=== PATIENT | female | born 1955 | race Caucasian/White ===

== ENCOUNTER 2019-05-28 16:38 | Emergency (ER) | payer BC, SELFPAY ==
[2019-05-28 16:54] VITALS: BP 108/70; PULSE 95; RESP 16; TEMP 36.8; O2SAT 97
--- NOTE | 2019-05-28 17:34 | ED.EPISTAXIS ---
HPI - Epistaxis General Chief complaint: Epistaxis <Ashu Keenan PA-C - Last Filed: 05/28/19 18:52> Stated complaint: nosebleed <Ashu Keenan PA-C - Last Filed: 05/28/19 18:52> Time Seen by Provider: 05/28/19 16:59 <DANIEL Perry Last Filed: 05/28/19 18:52> Source: patient <Ashu Keenan PA-C - Last Filed: 05/28/19 18:52> Mode of arrival: ambulatory <Ashu Keenan PA-C - Last Filed: 05/28/19 18:52> Limitations: no limitations <Ashu Keenan PA-C - Last Filed: 05/28/19 18:52> History of Present Illness HPI Narrative: Patient is a 63-year-old female who presents with epistaxis that began prior to arrival was working around some dust and believes that that may have been the preceding problem to the epistaxis from the right nare patient also notes she is currently on warfarin patient notes she had a checked in the last week and was therapeutic patient has heart valve replacement is the etiology for her warfarin patient resting comfortably in the room upon arrival in no distress patient denies bleeding from other sources injury trauma or URI symptoms and is in no distress upon arrival <Ashu Keenan PA-C - Last Filed: 05/28/19 18:52> Related Data Allergies/adverse reactions: Allergies Allergy/AdvReac Type Severity Reaction Status Date / Time No Known Allergies Allergy Mild Unverified 04/11/12 13:41 <Ashu Keenan PA-C - Last Filed: 05/28/19 18:52> Review of Systems Review of Systems: All systems reviewed & are unremarkable except as noted in HPI and below <Ashu Keenan PA-C - Last Filed: 05/28/19 18:52> [facility] Past Medical History Medical History: Medical History (Updated 05/28/19 @ 18:52 by Ashu Keenan PA-C) Warfarin anticoagulation <Ashu Keenan PA-C - Last Filed: 05/28/19 18:52> Surgical History Surgical History: Surgical History H/O aortic valve replacement <Ashu Keenan PA-C - Last Filed: 05/28/19 18:52> Family History Family History: Family History (Updated 12/08/13 @ 07:13 by DOCTOR UNKNOWN) Father Family history of coronary artery disease Other Cerebrovascular accident Diabetes mellitus Family history of arthritis Family history of cardiovascular disease Family history of mental disorder <Ashu Keenan PA-C - Last Filed: 05/28/19 18:52> Social History Social History: Social History Smoking status: Never smoker Alcohol intake: never Gender identity (if verbalized by the patient): Female <Ashu Keenan PA-C - Last Filed: 05/28/19 18:52> Exam Narrative: Exam Narrative: GENERAL: Well-appearing, well-nourished, and in no acute distress. HEAD: Normocephalic, atraumatic. EYES: PERRLA and EOMI. ENT: Nares clear, no rhinorrhea, no bleeding anteriorly noted small amount of blood in the posterior oropharynx. Mucous membranes moist. Oropharynx without tonsillar hypertrophy exudate or other lesions. CHEST: Clear to auscultation. No respiratory distress. No wheezes rales or rhonchi HEART: Regular rate and rhythm. No murmur heard. EXTREMITIES: Normal range of motion. No edema. SKIN: Warm, dry, no rash. NEURO: No focal deficits. Alert and oriented x3. Cranial nerves II through XII grossly intact PSYCH: Normal mood and affect. <Ashu Keenan PA-C - Last Filed: 05/28/19 18:52> Course Course Emergency Course: Patient in the room in no distress at this time with cottonball in place there is been no bleeding patient afebrile nontoxic-appearing patient was offered Rhino Rocket but we will attempt the cottonball and she was given reasons to return <Ashu Keenan PA-C - Last Filed: 05/28/19 18:52> Vital Signs Vital signs: Vital Signs Temperature 98.2 F 05/28/19 16:54 Pulse Rate 95 05/28/19 16:54 Respiratory Rate
[2019-05-28] MEDS: OXYMETAZOLINE HCL 0.05% NAS 15 ML BTL (*BKC) 1 SPRAY (18:05)
[2019-05-28 19:00] LABS: INR 4.6; Prothrombin Time 43.1 Seconds (11.1-14.7)
[2019-05-28 19:16] VITALS: BP 110/77; PULSE 80; RESP 18; O2SAT 99
== END 2019-05-28 19:17 | disposition home or self-care (01) ==
PROVIDERS: Emergency Medicine Emergency Medical Services; Emergency Provider General Practice
DX: R04.0 Epistaxis (principal); Z95.2 Presence of prosthetic heart valve; Z79.01 Long term (current) 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s
CPT/HCPCS: 30901; 36415; 85610; 99283; A9270

== ENCOUNTER → 2019-12-12 13:07 | Outpatient (CLI) | payer BC, SELFPAY ==
--- NOTE | ~2019-12-12 | XR_ITS ---
XR lumbar spine 2-3V DATE: 12/12/2019 13:39 INDICATION: Bilateral sciatica. No known injury. TECHNIQUE: Standing AP, lateral and coned lateral lumbosacral views COMPARISON: None FINDINGS: Incidentally noted is a fractured lower sternal wire suture. Probable prosthetic cardiac va lve is noted on the lateral view. There is diffuse osteopenia. There is moderate rotatory levoscoliosis of the lumbar spine. The included lower thoracic and lumbar pedicles are intact. No fracture or bone destruction of the lumbar spine is noted. There is prominent degenerative disc disease throughout the lumbar and lumbosacral area, particularly pronounced on the right at L2-3. There is prominent degenerative change at the apophyseal joints, particularly in the L4-5 and L5-S1 a yolanda, with associated grade 1 anterolisthesis at L4-5. The sacroiliac joints are intact. IMPRESSION: Osteopenia Rotatory levoscoliosis of lumbar spine Degenerative disc disease throughout the lumbar and lumbosacral spine Grade 1 anterolisthesis at L4-5 due to degenerative change at the apophyseal joints Reviewed, dictated and finalized at location A. IMPRESSION: Osteopenia Rotatory levoscoliosis of lumbar spine Degenerative disc disease throughout the lumbar and lumbosacral spine Grade 1 anterolisthesis at L4-5 due to degenerative change at the apophyseal ciro ints
== END ==
PROVIDERS: PCP Physician Assistant; Visit Provider Physician Assistant
DX: M54.31 Sciatica, right side (principal); M85.88 Other specified disorders of bone density and structure, other site; M51.36 Other intervertebral disc degeneration, lumbar region; M51.37 Other intervertebral disc degeneration, lumbosacral region
CPT/HCPCS: 72100

== ENCOUNTER 2020-01-05 17:01 | Outpatient (CLI) | payer BC, SELFPAY ==
--- NOTE | ~2020-01-05 | MR_ITS ---
EXAMINATION: MR lumbar spine wo [facility] EXAM DATE: 01/05/2020 17:52 INDICATION: Low back pain, radiculopathy down both legs. TECHNIQUE: Multi-sequential, multiplanar MR images of the lumbar spine were obtained without contrast . Sagittal T1, T2, T2 fat saturation images. Axial T2 weighted images. There is no prior study for comparison. FINDINGS: There is 4 mm anterolisthesis L4 on L5 without spondylolysis. There is 2 mm retrolisthesis L3 on L4. There is moderate disc disease at all thoracolumbar levels. The conus medullaris terminates at the L1/2 level and has normal signal intensity and morphology. There is mild lumbar levoscoliosi s. Paraspinal soft tissue is unremarkable. There are no suspicious marrow signal abnormalities. Level by level evaluation: T12-L1: There is a mild diffuse disc bulge. Facet arthropathy: Mild. Neural foraminal stenosis: No stenosis. Central canal stenosis: No stenosis. L1-L2: There is a mild to moderate diffuse disc bulge. Facet arthropathy: Mild to moderate. Neural foraminal stenosis: Minimal bilateral. Central canal stenosis: Mild. L2-L3: There is a moderate diffuse disc bulge. Facet arthropathy: Moderate. Neural foraminal stenosis: Mild to moderate right, mild left. Central canal stenosis: Mild to moderate. L3-L4: There is a moderate diffuse disc bulge. Facet arthropathy: Mild to moderate. Neural foraminal stenosis: Mild to moderate bilateral. Central canal stenosis: Mild to moderate. L4-L5: There is a moderate diffuse disc bulge. Facet arthropathy: Moderate to severe . Ligamentum flavum enlargement. Neural foraminal stenosis: Moderate bilateral. Central canal stenosis: Moderate. L5-S1: There is a mild to moderate diffuse disc bulge. Facet arthropathy: Moderate left, mild to moderate right. Neural foraminal stenosis: Moderate left, mild right. Central canal stenosis: Mild. IMPRESSION: 1. Overall moderate lumbar spondylosis. 2. Grade 1 anterolisthesis L4 on L5. 3. Mild lumbar levoscoliosis. Reviewed, dictated and finalized at location B.
== END 2020-01-05 17:02 | disposition home or self-care (01) ==
PROVIDERS: PCP Physician Assistant; Visit Provider Physician Assistant
DX: M54.31 Sciatica, right side (principal); M47.896 Other spondylosis, lumbar region
CPT/HCPCS: 72148

== ENCOUNTER → 2020-01-23 10:08 | Outpatient (CLI) | payer BC, SELFPAY ==
--- NOTE | ~2020-01-23 | XR_ITS ---
EXAMINATION: XR knee RT min 4V DATE: 01/23/2020 10:47 INDICATION: Right knee pain. TECHNIQUE: 4 views of right knee were obtained. COMPARISON: Right knee radiographs 01/29/2011 FINDINGS: Bone alignment is normal. No fracture. There is severe osteoarthritis of medial compartment and mild osteoarthritis of lateral and patellofemoral compartments. There is a small knee joint effu amalia. IMPRESSION: 1. Severe right knee osteoarthritis. 2. Small right knee joint effusion. Reviewed, dictated and finalized at location A.
--- NOTE | ~2020-01-23 | XR_ITS ---
EXAMINATION: XR knee LT min 4V DATE: 01/23/2020 10:47 INDICATION: Left knee pain. TECHNIQUE: 4 views of left knee were obtained. COMPARISON: None. FINDINGS: Bone alignment is normal. No fracture. There is severe osteoarthritis of medial compartment , moderate osteoarthritis of patellofemoral compartment, and mild osteoarthritis of lateral compartme nt. No knee joint effusion. IMPRESSION: 1. Severe left knee osteoarthritis. Reviewed, dictated and finalized at location A.
== END ==
PROVIDERS: PCP Physician Assistant
DX: M25.562 Pain in left knee (principal); M25.561 Pain in right knee; M17.0 Bilateral primary osteoarthritis of knee
CPT/HCPCS: 73564

== ENCOUNTER 2020-02-24 14:41 | Outpatient (CLI) | payer BC, SELFPAY ==
--- NOTE | ~2020-02-24 | MM_ITS ---
EXAMINATION: MM screening [facility] BI w brittany HISTORY: Screening mammogram TECHNIQUE: Craniocaudal and mediolateral oblique 3-D tomosynthesis images were obtained and synthetic 2-D images were generated. CAD analysis was submitted and interpreted. COMPARISON: 02/21/2019, 01/18/2018, 01/06/2017 BREAST PARENCHYMAL COMPOSITION: There are scattered areas of fibroglandular density. FINDINGS: There is no evidence of suspicious mass, calcification, or architectural distortion to sugg est malignancy in either breast. There has been no suspicious interval change. IMPRESSION: 1. No mammographic evidence of malignancy. 2. Recommend routine screening mammography in one year. BI-RADS Category 1: Negative Reviewed, dictated and finalized at location A. 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
== END 2020-02-24 14:42 | disposition home or self-care (01) ==
LOC: ANHIMG 14:42
PROVIDERS: PCP Physician Assistant; Visit Provider Physician Assistant
DX: Z12.31 Encounter for screening mammogram for malignant neoplasm of breast (principal)
CPT/HCPCS: 77063; 77067

== ENCOUNTER 2021-05-28 14:12 | Outpatient (CLI) | payer BC, SELFPAY ==
--- NOTE | ~2021-05-28 | MM_ITS ---
EXAMINATION: MM screening [facility] BI w brittany HISTORY: Screening TECHNIQUE: Craniocaudal and mediolateral oblique 3-D tomosynthesis images were obtained and synthetic 2-D images were generated. CAD analysis was submitted and interpreted. COMPARISON: Comparison to multiple prior studies sequentially, with oldest reviewed study dated 11/28. BREAST PARENCHYMAL COMPOSITION: Breast composed of scattered areas of fibroglandular density. FINDINGS: There is no evidence of suspicious mass, calcification, or architectural distortion to sugg est malignancy in either breast. There has been no suspicious interval change. IMPRESSION: 1. No mammographic evidence of malignancy. 2. Recommend routine screening mammography in one year. BI-RADS Category 1: Negative Reviewed, dictated and finalized at location A. 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
== END 2021-05-28 14:13 | disposition home or self-care (01) ==
PROVIDERS: PCP Internal Medicine; Visit Provider Obstetrics & Gynecology
DX: Z12.31 Encounter for screening mammogram for malignant neoplasm of breast (principal)
CPT/HCPCS: 77063; 77067

== ENCOUNTER → 2021-08-13 11:30 | Outpatient (CLI) | payer BC, SELFPAY ==
--- NOTE | ~2021-08-13 | US_ITS ---
EXAMINATION: US abdomen complete DATE: 08/13/2021 11:51 INDICATION: Elevated liver function tests TECHNIQUE: Multiple grayscale and Doppler ultrasound images of the abdomen were obtained. COMPARISON: 09/24/2011 FINDINGS: The head and body of the pancreas are normal. The pancreatic tail is obscured by bowel gas. The liver is normal with normal echogenicity and echotexture. No surface nodularity. Normal hepatope ashutosh flow in the main portal vein. The gallbladder is normal with no abnormal wall thickening, pericho lecystic fluid or stones. The normal common bile duct measures 3 mm. There was no sonographic Mayo sign. The visualized portions of the aorta and inferior vena cava are normal. The right kidney measures 9.7 x 4.3 x 4.8 cm. The left kidney measures 9.5 x 4.9 x 5.9 cm. The kidney s demonstrate normal parenchymal echogenicity. There is no hydronephrosis. The spleen is normal in ap pearance and measures 9.0 cm. IMPRESSION: 1. No sonographic correlate for the patient's symptoms. Reviewed, dictated and finalized at location A.
== END ==
PROVIDERS: PCP Internal Medicine; Visit Provider Internal Medicine
DX: R79.89 Other specified abnormal findings of blood chemistry (principal)
CPT/HCPCS: 76700

== ENCOUNTER 2021-08-15 13:42 | Outpatient (CLI) | payer BC, SELFPAY ==
--- NOTE | ~2021-08-15 | DEXA_ITS ---
Bone Density Report Name: JOVITA NIXON Age: 65 Sex: Female Ethnicity: White Date of : 1955 Indication: osteopenia; height loss; postmenopausal Referring Provider: NICHOLE, RU Wallace Study: Bone densitometry was performed. Exam Date: August 15, 2021 Accession number: [id number] Bone Density: Region BMD T-score Z-score Classification AP Spine(L1, L4) 0.926 -1.0 0.7 Normal Femoral Neck (Left) 0.649 -1.8 -0.3 Osteopenia Total Hip (Left) 0.741 -1.6 -0.5 Osteopenia Femoral Neck (Right) 0.754 -0.9 0.6 Normal Total Hip (Right) 0.816 -1.0 0.1 Normal Total Hip Mean 0.779 -1.3 -0.2 Osteopenia World Health Organization criteria for BMD impression classify patients as: Normal (T-score at or above -1.0), Osteopenia (T-score between -1.0 and -2.5), or Osteoporosis (T-score at or below -2.5). 10-year Fracture Risk(1): Major Osteoporotic Fracture 9.5% Hip Fracture 1.1% Reported Risk Factors: [place] (), Neck BMD=0.649, BMI=26.3 (1) FRAX(R) Version 3.08. Fracture probability calculated for an untreated patient. Fracture probability may be lower if the patient has received treatment. Previous Exams: Region Exam Age BMD T-score BMD Change BMD Change Date g/cm2 vs Baseline vs Previous AP Spine (L1,L4) 08/15/2021 65 0.926 -1.0 -0.019 (-2.0%) -0.019 (-2.0%) 02/21/2019 63 0.945 -0.8 Total Hip(Left) 08/15/2021 65 0.741 -1.6 -0.041 (-5.2%) -0.041 (-5.2%) 02/21/2019 63 0.782 -1.3 Total Hip(Right) 08/15/2021 65 0.816 -1.0 0.011 (1.4%) 0.011 (1.4%) 02/21/2019 63 0.805 -1.1 *Denotes significance at 95% confidence level, LSC for AP Spine = 0.022 g/cm2, LSC for Total Hip = 0.027 g/cm2 Clinical Information Provided by Patient: Has used the following medications: Vitamin D, Calcium Patient maximum height was 63 Menopause Age: 50 Drinks caffeinated beverages Onset of menses at age 16 Number of children 3 Impression: The patient has low bone mass, based on the Left Femoral Neck T-score. The patient has an estimated ten-year risk of hip fracture of 1.1% and an estimated ten-year risk of major fracture of 9.5%, based on the WHO FRAX algorithm. The BMD for the Total Hip(Left) decreased, changing by -5.2% since the last DXA exam. Discussion: BONE DENSITY IS LOW AT ONE OR MORE SKELETAL SITES. This patient's lowest T-score is low at one or more skeletal sites. It meets the World Health Organization's (WHO) cr
== END 2021-08-15 13:43 | disposition home or self-care (01) ==
PROVIDERS: PCP Internal Medicine; Visit Provider Internal Medicine
DX: M85.852 Other specified disorders of bone density and structure, left thigh (principal)
CPT/HCPCS: 77080

== ENCOUNTER → 2021-10-18 16:21 | Outpatient (CLI) | payer BC, SELFPAY ==
--- NOTE | ~2021-10-18 | XR_ITS ---
XR cervical spine 4-5V DATE: 10/18/2021 17:09 INDICATION: Neck pain TECHNIQUE: AP, open-mouth, odontoid, lateral and swimmer views COMPARISON: None FINDINGS: Incidentally noted are sternal wire sutures. There is osteopenia. There is reversal of lower cervical curvature. C1 and C2 are normally aligned and the odontoid process appears intact. No fracture or dislocation or locked facet or prevertebral soft tissue swelling. There is minimal anterolisthesis at C2-3. There is 1.9 mm anterolisthesis at C3-4. These latter 2 int erspaces are well preserved. There is mild degenerative disc disease and minimal anterolisthesis at C4-5. There is severe degenerative disc disease and mild retrolisthesis at C5-6 and C6-7. There is degenerative change at the apophyseal joints throughout the cervical spine. There is promine nt uncovertebral joint spurring on the left at C4-5 and bilaterally at C5-6 and C6-7. IMPRESSION: Reversal of lower cervical curvature Multilevel degenerative disc disease, most severe at C5-6 and C6-7 Anterolisthesis is noted at C2-3, C3-4, C4-5 No fracture or dislocation or locked facet or prevertebral soft tissue swelling Reviewed, dictated and finalized at Location A. Reviewed, dictated and finalized at location A.
== END ==
PROVIDERS: PCP Internal Medicine; Visit Provider Internal Medicine
DX: M50.323 Other cervical disc degeneration at C6-C7 level (principal)
CPT/HCPCS: 72050

== ENCOUNTER → 2021-10-19 11:53 | Outpatient (CLI) | payer BC, SELFPAY ==
--- NOTE | ~2021-10-19 | XR_ITS ---
XR thoracic spine 3V 10/19/2021 12:04 Indication: Back pain Procedure: 3 views thoracic spine Comparison: No prior studies for comparison. Findings: There is mild dextroscoliosis of the lower thoracic spine. Vertebral body heights are maint ained. No paraspinal soft tissue abnormality. There are median sternotomy wires with the inferior wir e being fractured. There is a prosthetic heart valve. Heart size normal. Lungs are clear. There is mi ld thoracic and moderate upper lumbar spondylosis. Impression: 1: Mild thoracic and moderate upper lumbar spondylosis with dextroscoliosis of the thoracic spine. Reviewed, dictated and finalized at location A. Impression: 1: Mild thoracic and moderate upper lumbar spondylosis with dextroscoliosis of the thoracic spine.
== END ==
PROVIDERS: PCP Internal Medicine; Visit Provider Internal Medicine
DX: M47.894 Other spondylosis, thoracic region (principal); M47.896 Other spondylosis, lumbar region
CPT/HCPCS: 72072

== ENCOUNTER → 2021-10-29 17:10 | Outpatient (CLI) | payer BC, SELFPAY ==
--- NOTE | ~2021-10-29 | XR_ITS ---
EXAM: XR lumbar spine 2-3V DATE: 10/29/2021 17:26 HISTORY: Lumbar back pain . COMPARISON: None available. FINDINGS: 5 nonrib-bearing lumbar-type vertebral bodies. Mild lumbar scoliosis. Pedicles intact. 7 m m anterolisthesis of L4 on L5. Multilevel severe disc space narrowing worst at L2-3 and L5-S1. Multil evel severe facet sclerosis and hypertrophy, worst in the lower lumbar spine. Lower lumbar interspino us narrowing. IMPRESSION: Grade 2 L4-5 anterolisthesis. Multilevel severe degenerative disc disease. Severe lower l umbar facet arthropathy. Reviewed, dictated and finalized at location K. IMPRESSION: Grade 2 L4-5 anterolisthesis. Multilevel severe degenerative disc d isease. Severe lower lumbar facet arthropathy.
== END ==
PROVIDERS: PCP Internal Medicine; Visit Provider Internal Medicine
DX: M51.36 Other intervertebral disc degeneration, lumbar region (principal)
CPT/HCPCS: 72100

== ENCOUNTER 2021-11-01 10:17 | Outpatient (RCR) | payer BC, SELFPAY ==
[2021-11-01 11:33] LABS: INR 3.4; Prothrombin Time 33.5 Seconds (11.1-14.7)
== END 2022-01-30 23:59 | disposition home or self-care (01) ==
LOC: ANHLAB 10:17
PROVIDERS: PCP Internal Medicine; Visit Provider Internal Medicine Cardiovascular Disease
DX: Z51.81 Encounter for therapeutic drug level monitoring (principal); Z95.2 Presence of prosthetic heart valve; Z79.01 Long term (current) 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s
CPT/HCPCS: 36415; 85610

== ENCOUNTER → 2021-12-31 13:55 | Outpatient (CLI) | payer BC, SELFPAY ==
--- NOTE | ~2021-12-31 | MR_ITS ---
EXAMINATION: MR lumbar spine wo con DATE: 12/31/2021 14:57 INDICATION: Lumbar radiculopathy. TECHNIQUE: Magnetic resonance imaging (MRI) of the lumbar spine was performed without intravenous con trast. Sequences included sagittal T2-weighted FSE, sagittal T2-weighted FS FSE, sagittal T1-weighted FSE, and axial T2-weighted FSE. COMPARISON: Lumbar spine MRI 01/05/2020, radiographs 10/29/2021 FINDINGS: There is 11 degrees levoscoliosis of lumbar spine. There is 3 mm retrolisthesis of L2 on L3 and L3 on L4, 4 mm anterolisthesis of L4 on L5, and 3 mm retrolisthesis of L5 on S1. Vertebral body heights are normal. There is moderately decreased disc height at T12-L1, mildly decreased disc height at L1-L2, severely decreased disc height at L2-L3, moderately decreased disc height at L3-L4, mildly decreased disc height at L4-L5, and severely decreased disc height at L5-S1 with endplate remodeling . The distal spinal cord signal intensity is normal. The conus medullaris is at L1-L2. The following disc levels are specifically discussed: T12-L1: The disc is bulging. There is mild bilateral facet joint osteoarthritis. There is mild bilate ral neural foraminal stenosis. There is mild central canal stenosis. L1-L2: The disc is bulging and has an annular fissure. There is mild bilateral facet joint osteoarthr itis. There is mild bilateral neural foraminal stenosis. There is mild central canal stenosis. L2-L3: The disc is bulging and has an annular fissure. There is severe right and mild left facet join t osteoarthritis. There is moderate right and mild left neural foraminal stenosis. There is mild cent ral canal stenosis. L3-L4: The disc is bulging and has an annular fissure. There is moderate right and mild left facet ciro int osteoarthritis. There is moderate right and mild left neural foraminal stenosis. There is mild ce ntral canal stenosis. L4-L5: The disc is bulging and has an annular fissure. There is severe bilateral facet joint osteoart hritis. There is mild right and moderate left neural foraminal stenosis. There is mild central canal stenosis. L5-S1: The disc is bulging with superimposed central extrusion. There is mild right and severe left f acet joint osteoarthritis. There is mild right and moderate left neural foraminal stenosis. There is mild central canal stenosis. IMPRESSION: 1. Severe lumbar spondylosis, stable from 01/05/2020. 2. Lumbar levoscoliosis. Reviewed, dictated and finalized at location A.
--- NOTE | ~2021-12-31 | MR_ITS ---
EXAMINATION: MR cervical spine wo con DATE: 12/31/2021 14:57 INDICATION: Neck pain. Cervical radiculopathy. TECHNIQUE: Magnetic resonance imaging (MRI) of the cervical spine was performed without intravenous c ontrast. Sequences included sagittal T2-weighted FSE, sagittal T2-weighted FS FSE, sagittal T1-weight ed FSE, axial MERGE, and axial T2-weighted FSE. COMPARISON: None FINDINGS: There is 5 degrees dextrocurvature of cervical spine. There is kyphosis of cervical spine. There is 2 mm anterolisthesis of C3 on C4 and 2 mm retrolisthesis of C5 on C6 and C6 on C7. Vertebral body heights are normal. There is moderately decreased disc height at C4-C5 and severely decreased d isc height at C5-C6 and C6-C7. The spinal cord signal intensity is normal. The following disc levels are specifically discussed: C2-C3: There is a central protrusion. There is mild bilateral uncovertebral joint osteoarthritis. The re is severe bilateral facet joint osteoarthritis. There is mild right neural foraminal stenosis. The re is no central canal stenosis. C3-C4: There is a central protrusion. There is severe left uncovertebral joint osteoarthritis. There is mild right and severe left facet joint osteoarthritis. There is moderate left neural foraminal martin nosis. There is no central canal stenosis. C4-C5: The disc is bulging with superimposed central extrusion. There is mild right and severe left u ncovertebral joint osteoarthritis. There is moderate right and severe left facet joint osteoarthritis . There is moderate left neural foraminal stenosis. There is mild central canal stenosis with ventral indentation of the spinal cord. C5-C6: The disc is bulging. There is severe bilateral uncovertebral joint osteoarthritis. There is mi ld bilateral facet joint osteoarthritis. There is mild right and moderate left neural foraminal steno sis. There is moderate central canal stenosis with ventral and dorsal indentation of the spinal cord. C6-C7: The disc is bulging with superimposed central extrusion. There is severe bilateral uncovertebr al joint osteoarthritis. There is moderate bilateral facet joint osteoarthritis. There is moderate an d mild left neural foraminal stenosis. There is mild central canal stenosis. C7-T1: There is a central protrusion. There is mild bilateral uncovertebral joint osteoarthritis. The re is severe bilateral facet joint osteoarthritis. There is mild bilateral neural foraminal stenosis. There is no central canal stenosis. IMPRESSION: 1. Severe cervical spondylosis. Reviewed, dictated and finalized at location A.
== END ==
PROVIDERS: PCP Internal Medicine; Visit Provider Pain Medicine Pain Medicine
DX: M47.22 Other spondylosis with radiculopathy, cervical region (principal); M47.26 Other spondylosis with radiculopathy, lumbar region
CPT/HCPCS: 72141; 72148

== ENCOUNTER 2022-07-18 06:36 | Outpatient (CLI) | payer BC, SELFPAY ==
[2022-07-18 07:50] LABS: Prothrombin Time 22.1 Seconds (11.1-14.7)
== END 2022-07-18 06:37 | disposition home or self-care (01) ==
LOC: ANHLAB 06:40
PROVIDERS: PCP Family Medicine; Visit Provider Internal Medicine Cardiovascular Disease
DX: Q23.1 Congenital insufficiency of aortic valve (principal); Z95.2 Presence of prosthetic heart valve; Z79.01 Long term (current) 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s
CPT/HCPCS: 36415; 85610

== ENCOUNTER 2022-08-14 08:01 | Outpatient (CLI) | payer OTHER, SELFPAY ==
--- NOTE | ~2022-08-14 | MM_ITS ---
EXAMINATION: MM screening padmaja BI w brittany HISTORY: Screening mammogram TECHNIQUE: Craniocaudal and mediolateral oblique 3-D tomosynthesis images were obtained and synthetic 2-D images were generated. CAD analysis was submitted and interpreted. COMPARISON: 05/28/2021, 02/24/2020, 02/21/2019 BREAST PARENCHYMAL COMPOSITION:The breasts are heterogeneously dense, which may obscure small masses. FINDINGS: No suspicious mass, calcification, or architectural distortion are identified in either kashif ast to suggest malignancy. There has been no suspicious interval change. IMPRESSION: No mammographic evidence of malignancy. Recommend routine screening mammography in one year. BI-RADS Category 1: Negative Reviewed, dictated and finalized at location .
== END 2022-08-14 08:02 | disposition home or self-care (01) ==
LOC: ANHIMG 08:02
PROVIDERS: PCP Family Medicine; Visit Provider Obstetrics & Gynecology
DX: Z12.31 Encounter for screening mammogram for malignant neoplasm of breast (principal)
CPT/HCPCS: 77063; 77067

== ENCOUNTER 2022-09-01 16:00 | Outpatient (RCR) | payer OTHER, SELFPAY ==
[2022-07-21 07:16] LABS: INR 2.7; Prothrombin Time 28.2 Seconds (11.1-14.7)
[2022-09-01 16:55] LABS: INR 1.9; Prothrombin Time 22.6 Seconds (11.1-14.7)
== END 2022-10-19 23:59 | disposition home or self-care (01) ==
LOC: ANHLAB 16:00
PROVIDERS: PCP Family Medicine; Visit Provider Internal Medicine Cardiovascular Disease
DX: Z51.81 Encounter for therapeutic drug level monitoring (principal); Z95.2 Presence of prosthetic heart valve; Z79.01 Long term (current) 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s
CPT/HCPCS: 36415; 85610

== ENCOUNTER 2022-10-09 11:00 | Outpatient (RCR) | payer OTHER, SELFPAY ==
--- NOTE | 2022-09-05 09:58 | PTOPEVAL1 ---
Assessment and note entered by Rosalva Gonzalez, PT Evaluation Information Assessment Status Evaluation Diagnosis pain:L hip, R knee,L knee, R shoulder, L shoulder Onset June 2018 Subjective Information chronic issues with pain, onset 2019 with sciatica and hurt since then; have had PT, chiropractor, pain management, neuromuscular specialist, massage therapy--L hip injections; nothing really helped except massage therapist--go once every few months; - have membership to [employer]- chair yoga, water arthritis class, sitting and standing [employer] classes---go few times/week; have done exercises at home, stretching from therapy, but stopped doing because they do not really help GOAL: pain relief Reported Pain Level Pain Score Self Report Additional Pain Score Comments pain range in the past week: 1-5/10 of legs and back; increase pain: moving around decrease pain: heat, rest have home stim unit, but never really used not sure how to do it; with sleeping, awaken 1-2 x/night due to pain; standing/walking tolerance reported 10-15 min Assessment PT Clinical Summary Emani has multiple diagnosis with multiple areas of pain and fibromyalgia. 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 She has a [employer] membership and does fitness exercises and water classes there. Pain in her back and legs decreases her walking and activity level and awakens her from sleeping; Oswestry self assessment functional score of 40% limitation in activity. She has a home stim unit, but is not using, due to not sure how to use it. With the evaluation: she has decreased strength of trunk, hips, knees and ankles, with poor standing position; tightness over R and L hamstrings and anterior hip/quads; 2 minute walking distance of 425' and 5 reps sit/stand time of 21 sec, with use of UE's; Skilled PT services are indicated for modalities to decrease pain, education on her home stim use, therapeutic exercises in water and on land, to increase flexibility
--- NOTE | 2022-09-05 10:00 | OPREHPOC ---
Outpatient Therapy Plan of Care This is a Multidisciplinary Plan of Care that may contain components documented by all disciplines (PT, OT, and ST.) PT Problem 1 PT Problem #1 Knowledge Deficit PT Goal 1 Goal 1* pt understand good body mechanics/posture 2* pt indep with HEP PT Problem 2 PT Problem #2 Pain PT Goal 1 Goal 1* pt report pain of back and legs3/10 at worst 2* Oswestry self assessment functional score of 30 % limitation 3* pt report with sleeping awaken 1x/night due to pain 4* pt report standing/walking activity tolerance of 20 minutes PT Problem 3 PT Problem #3 Impaired Flexibility PT Goal 1 Goal increase anterior hip/quad length with prone knee flexion 1*R 120' 2* L 125' increase hamstring length with supine SLR 3* R 75' 4* L 75' PT Problem 4 PT Problem #4 Impaired Strength PT Goal 1 Goal pt perform 20 reps with good stability: 1* B PF in standing 2* side lying hip abduction R 3* side lying hip abduction L 4* prone hip extension R 5* prone hip extension L 6* 5 reps sit/stand time 17 seconds, without use of UE's 7* 2 minute walking test distance 450'
--- NOTE | 2022-10-09 11:52 | PTOPDC ---
Assessment and note entered by Rosalva Gonzalez, PT Evaluation Information Assessment Status Discharge Diagnosis pain:L hip, R knee,L knee, R shoulder, L shoulder Onset June 2018 Subjective Information feel like she is better, but not as good as she wants to be; doing the exercises 3 or more times/ week; going to the [facility] at least 2 x/wk-- chair yoga, water class; activity tolerance about 30 min but keep going past point of pain to about 1&1/2 hr Reported Pain Level Pain Score Self Report Additional Pain Score Comments pain range in the past week 2-5/10; muscle tenderness over legs--anterior & medial thighs and numb over L lower calf; sleeping is OK, pain does not wake her up when on her bed; increase pain: walking, decrease pain: sit/rest; prescription meds-- gabapentin, celebrex- they help used to use heat but not used laterly Assessment PT Clinical Summary Emani has received a total of 11 PT sessions. Compared to the initial evaluation: pain rating at the low from 1 to 2/10 and high rating same at 5/10; reported standing/ walking tolerance from 10-15 min to 30 min and is now sleeping without awakening from pain; 2 minute walk test disstance was 10' less; increase flexibility of R and L anterior hip/quad muscle groups; increase strength of trunk and hips; Self assessment functional score with Oswestry from 40% to 42%. Education completed for home exercise program. The goals were achieved, except pain rating at the worst, 2 minute walk test distance and hamsting flexibility; Discharge PT services; she is to continue with her home exercises and fitness center activities. Plan of Care PT Services Indicated No
== END 2022-10-10 13:16 | disposition home or self-care (01) ==
LOC: ANHPT 11:00
PROVIDERS: PCP Family Medicine; Visit Provider Family Medicine
DX: M25.552 Pain in left hip (principal); M25.561 Pain in right knee; M25.562 Pain in left knee; M25.511 Pain in right shoulder; M25.512 Pain in left shoulder
CPT/HCPCS: 97110; 97113; 97162; 97530

== ENCOUNTER 2022-12-18 06:52 | Outpatient (RCR) | payer OTHER, SELFPAY ==
[2022-10-20 07:52] LABS: INR 2.3; Prothrombin Time 27.2 Seconds (11.1-14.7)
[2022-10-27 08:50] LABS: INR 2.6; Prothrombin Time 29.4 Seconds (11.1-14.7)
[2022-11-20 08:06] LABS: INR 3.1
[2022-12-18 08:51] LABS: Prothrombin Time 33.3 Seconds (11.1-14.7)
== END 2023-01-18 23:59 | disposition home or self-care (01) ==
LOC: ANHLAB 06:52
PROVIDERS: PCP Family Medicine; Visit Provider Internal Medicine Cardiovascular Disease
DX: Z51.81 Encounter for therapeutic drug level monitoring (principal); Z95.2 Presence of prosthetic heart valve; Z79.01 Long term (current) 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s
CPT/HCPCS: 36415; 85610

== ENCOUNTER 2023-02-12 08:50 | Outpatient (RCR) | payer OTHER, SELFPAY ==
[2023-01-15 13:01] LABS: INR 2.9; Prothrombin Time 32.3 Seconds (11.1-14.7)
[2023-02-12 17:09] LABS: INR 3.1; Prothrombin Time 34.8 Seconds (11.1-14.7)
== END 2023-04-15 23:59 | disposition home or self-care (01) ==
LOC: ANHWCLAB 08:50
PROVIDERS: PCP Family Medicine; Visit Provider Internal Medicine Cardiovascular Disease
DX: Z51.81 Encounter for therapeutic drug level monitoring (principal); Z95.2 Presence of prosthetic heart valve; Z79.01 Long term (current) 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s
CPT/HCPCS: 36415; 85610

== ENCOUNTER → 2023-02-24 10:10 | Outpatient (CLI) | payer OTHER, SELFPAY ==
--- NOTE | ~2023-02-24 | XR_ITS ---
Right Knee Technique: AP, lateral, and sunrise views were obtained. Clinical History: Pain Findings: No fracture or dislocation is seen. There is severe degenerative change of the medial chris rtment with medial joint line osteophyte formation and medial compartment narrowing. There is mild to moderate patellofemoral compartment degenerative change and spurring. There is minimal lateral chris rtment degenerative change. Soft tissues are unremarkable. No joint effusion is seen. Impression: Tricompartmental osteoarthritis, as detailed above, worst in the medial compartment. Reviewed, dictated and finalized at location M. STRIAL MAINTENANCE MANAGER Impression: Tricompartmental osteoarthritis, as detailed above, worst in the medial compart ment.
--- NOTE | ~2023-02-24 | XR_ITS ---
Right Shoulder Technique: AP and axillary views were obtained. Clinical History: Pain Findings: No fracture or dislocation is seen. Osseous alignment is anatomic. The glenohumeral and acr omioclavicular joint spaces are preserved. Soft tissues are unremarkable. Impression: Unremarkable right shoulder radiographs. Reviewed, dictated and finalized at [facility]. Impression: Unremarkable right shoulder radiographs.
--- NOTE | ~2023-02-24 | XR_ITS ---
AP view of the pelvis and AP and lateral views of the bilateral hips Clinical history: Pain COMPARISON: 10/29/2012 Findings: No acute fracture or dislocation is seen. Osseous alignment is anatomic. Bilateral hip and SI joint spaces are preserved. Soft tissues are unremarkable. Impression: No significant abnormality is seen. Reviewed, dictated and finalized at [facility]. HOUSE SUPERVISOR 3RD SHIFT Impression: No significant abnormality is seen.
--- NOTE | ~2023-02-24 | XR_ITS ---
Left Shoulder Technique: AP and axillary views were obtained. Clinical History: Pain Findings: No fracture or dislocation is seen. Osseous alignment is anatomic. The glenohumeral and acr omioclavicular joint spaces are preserved. Soft tissues are unremarkable. Impression: Unremarkable left shoulder radiographs. Reviewed, dictated and finalized at [facility]. BASED ASSISTANT Impression: Unremarkable left shoulder radiographs.
--- NOTE | ~2023-02-24 | XR_ITS ---
Left Knee Technique: AP, lateral, and sunrise views were obtained. Clinical History: Pain Findings: No fracture or dislocation is seen. There is severe degenerative change of the medial and p atellofemoral compartment, with joint space narrowing and osteophyte formation. There is mild degener ative change of the lateral compartment. Small joint effusion is seen. Impression: Severe degenerative change of the medial and patellofemoral compartment. Mild degenerative change of the lateral compartment. Small joint effusion. Reviewed, dictated and finalized at location M. EMNATION ENGINEER Impression: Severe degenerative change of the medial and patellofemoral compartment. Mild degenerative change of the lateral compartment. Small joint effusion.
== END ==
PROVIDERS: PCP Anesthesiology Pain Medicine; Visit Provider Anesthesiology Pain Medicine
DX: M17.0 Bilateral primary osteoarthritis of knee (principal); M25.462 Effusion, left knee
CPT/HCPCS: 73030; 73521; 73562

== ENCOUNTER 2023-03-23 15:43 | Emergency (ER) | payer OTHER, SELFPAY ==
--- NOTE | ~2023-03-23 | XR_ITS ---
EXAMINATION: XR knee RT 3V DATE: 03/23/2023 17:29 INDICATION: Right knee pain post cortisone injection TECHNIQUE: Anteroposterior, oblique and crosstable lateral views of the right knee were obtained COMPARISON: 02/24/2023 FINDINGS: Alignment is normal. No fracture. Tricompartmental osteoarthritis at the right knee, severe at the m edial compartment and at least moderate severity at the patellofemoral compartment. No cortical erosi ons or osteolysis. There is a moderate-sized right knee joint effusion. IMPRESSION: 1. Moderate-sized right knee joint effusion which given the provided history of pain post recent ster oid injection raises concern for septic arthritis. Consider diagnostic arthrocentesis. 2. Severe medial compartment predominant tricompartmental osteoarthritis at the right knee. Reviewed, dictated and finalized at location A. END ENGINEER IMPRESSION: 1. Moderate-sized right knee joint effusion which given the provided history of pain post recent steroid injection raises concern for septic arthritis. Consid er diagnostic arthrocentesis. 2. Severe medial compartment predominant tricompartmental osteoarthritis at the right knee.
[2023-03-23 16:10] VITALS: BP 116/58; PULSE 93; RESP 18; TEMP 36.8; O2SAT 97
--- NOTE | 2023-03-23 17:48 | ED.LOWEXIN ---
HPI - Extremity Injury (Lower) General Chief Complaint: Extremity Injury, Lower Stated Complaint: POSS KNEE INFECTION Time Seen by Provider: 03/23/23 17:14 History of Present Illness HPI Narrative: Patient is a 67-year-old female who presents ER will concern for right knee swelling and pain. She was seen by her pain management physician today who is concerned she could have a septic knee due to the swelling. She had an arthrocentesis on both of her knees last week in her orthopedic surgeon's office. She reports afterwards she slowly began to notice reaccumulation of swelling. Worse in the right knee. Worse on the lateral aspect. She reports the swelling has decreased. She has no fevers or chills or sweats. There is no redness to the area. Patient reports that the day that she had her arthrocentesis performed she also had an INR performed that showed her INR was 5.9. She thinks her doctor was aware that she was on a blood thinner but did not explicitly discussed at that day. She has had no additional trauma since then. Related Data Home Medications Medication Instructions Recorded Confirmed aspirin 81 mg tablet,delayed 81 mg PO DAILY 05/07/21 03/24/23 release atorvastatin 20 mg tablet 20 mg PO DAILY 05/07/21 03/24/23 calcium carbonate 600 mg calcium 600 mg PO DAILY 05/07/21 03/24/23 (1,500 mg) tablet (Calcium) cholecalciferol (vitamin D3) 10 10 mcg PO DAILY 05/07/21 03/24/23 mcg (400 unit) capsule (Vitamin D3) warfarin 4 mg tablet 4 mg PO [id number] 05/07/21 03/24/23 latanoprost 0.005 % eye drops 1 drp EACH EYE QPM 08/14/22 03/24/23 mecobalamin (vitamin B12) 1,000 1,000 mcg PO DAILY 02/19/23 03/24/23 mcg chewable tablet fluticasone propionate 50 2 spray intranasal DAILY 02/24/23 03/24/23 mcg/actuation nasal spray,suspension magnesium oxide 400 mg PO DAILY 02/24/23 03/24/23 gabapentin 100 mg capsule 100 mg PO TID 03/23/23 03/24/23 Allergies Allergy/AdvReac Type Severity Reaction Status Date / Time pregabalin [From Lyrica] Allergy Intermediate rash Verified 03/24/23 14:38 cortisone AdvReac Mild Leg pain Verified 03/24/23 14:38 molnupiravir AdvReac Mild Rash Verified 03/24/23 14:38 Review of Systems Review of Systems: All systems reviewed & are unremarkable except as noted in HPI and below Constitutional: Constitutional: Reports no additional constitutional complaints Cardiovascular: Cardiovascular: Reports no additional cardiovascular complaints Respiratory: Respiratory: Reports no additional respiratory complaints Musculoskeletal: Musculoskeletal: Denies back pain, Reports arthralgias, Reports joint swelling and Denies muscle cramps Integumentary/Breasts: Skin/Breast: Denies pruritus and Denies rash Comments: knee bruising bilaterally Neurologic: Denies focal weakness and Denies numbness PMFSH Past Medical History Medical History Arthritis Asthma Carpal tunnel syndrome, left Cataracts, both eyes Cellulitis Effusion of knee joint Fibromyalgia Glaucoma Heartburn High cholesterol Left knee DJD Right knee DJD Sciatica Screening mammogram, encounter for Warfarin anticoagulation Surgical History Surgical History H/O aortic valve replacement History of carpal tunnel release History of cervical cerclage History of foot surgery 1997 1985 Family History Family History Father Family history of coronary artery disease Mother Cerebrovascular accident Sibling Diabetes mellitus sister Other Family history of arthritis Family history of cardiovascular disease Family history of mental disorder Social History Social History Smoking status: Never smoker Alcohol intake: current Alcohol use details: social Substance use: never Substance use ty
[2023-03-23 18:39] LABS: Basophils Percent Auto 0.4 % (0.2-1.2); Eosinophils Absolute Auto 0.1 K/mm3 (0-0.3); Eosinophils Percent Auto 1.6 % (0-4.4); Hematocrit 39.2 % (37.0-47.0); Hemoglobin 12.7 g/dL (12.0-15.0); Immature Granulocyte Absolute 0.17 K/mm3 (0.00-0.031); Immature Granulocyte Percent A 1.9 % (0-0.5); Lymphocytes Absolute Auto 2.03 K/mm3 (0.9-3.2); Lymphocytes Percent Auto 22.7 % (18.3-44.2); Mean Corpuscular HGB Conc 32.4 g/dl (32-36); Mean Corpuscular Hemoglobin 32.6 pg (26-34); Mean Corpuscular Volume 100.8 fl (80-100); Mean Platelet Volume 10.4 fl (7.4-10.4); Monocytes Absolute Auto 0.8 K/mm3 (0.1-0.6); Monocytes Percent Auto 8.8 % (2.6-8.5); Neutrophils Absolute Auto 5.8 K/mm3 (1.3-6.7); Neutrophils Percent Auto 64.6 % (45.5-73.1); Platelet Count Result 263 k/mm3 (150-375); Red Blood Count 3.89 M/mm3 (4.2-5.4); Red Cell Distribution Width 12.3 % (11.5-14.5); White Blood Count 8.9 K/mm3 (4.5-10.0)
== END 2023-03-23 19:15 | disposition home or self-care (01) ==
PROVIDERS: Emergency Provider Emergency Medicine; PCP Family Medicine
DX: M25.461 Effusion, right knee (principal); J45.909 Unspecified asthma, uncomplicated; Z79.899 Other long term (current) drug therapy
CPT/HCPCS: 36415; 73562; 85025; 85610; 99283

== ENCOUNTER 2023-05-05 11:28 | Outpatient (RCR) | payer OTHER, SELFPAY ==
[2023-05-05 18:12] LABS: Prothrombin Time 33.4 Seconds (11.1-14.7)
== END 2023-08-03 23:59 | disposition home or self-care (01) ==
LOC: ANHWCLAB 11:28
PROVIDERS: PCP Student in an Organized Health Care Education/Training Program; Visit Provider Internal Medicine Cardiovascular Disease
DX: Z51.81 Encounter for therapeutic drug level monitoring (principal); Z95.2 Presence of prosthetic heart valve; Z79.01 Long term (current) 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s
CPT/HCPCS: 36415; 85610

== ENCOUNTER 2023-05-11 12:30 | Outpatient (RCR) | payer OTHER, SELFPAY ==
--- NOTE | 2023-04-08 13:40 | PTOPEVAL1 ---
Assessment and note entered by Franck Mejia, PT Evaluation Information Assessment Status Evaluation Diagnosis Right Knee Effusion, Knee weakness Onset Fall 2018 Subjective Information Report that after initial knee pain and sciatica in 2019 she has never really noticed the pain go away. Moving after prolonged sitting, extended walking, and stairs really increase her pain. She reports that she received an injection and feels that it actually made her worse initially. She did also have some trouble getting into and out of her car initially. Reported Pain Level Pain Score 1: Self Report Assessment PT Clinical Summary Patient presents with signs and symptoms consistent with knee compartment arthritis. Demonstrating significant weakness, ROM deficits, and altered gait affecting functional mobility and ADL performance. Plan of Care Interventions Electrical Stimulation,Gait Training,Manual Therapy,Neuro Re-education,Therapeutic Activities, Therapeutic Exercise PT Services Indicated Yes Treatment Frequency and 2x/week for 8 visits Duration These treatments will address the objective and functional deficits as defined above. The patient will be advanced safely and appropriately in order for the patient to progress towards his/her prior level of function. Additional exercises will be introduced and as well as a comprehensive home exercise program upon discharge, if needed, ?to ensure carryover of functional gains achieved in the clinic. This treatment plan has been reviewed and agreement upon by the patient.
--- NOTE | 2023-04-08 13:40 | OPREHPOC ---
Outpatient Therapy Plan of Care This is a Multidisciplinary Plan of Care that may contain components documented by all disciplines (PT, OT, and ST.) PT Problem 1 PT Problem #1 Knowledge Deficit PT Goal 1 Goal Independent with HEP Target Visit 4 PT Problem 2 PT Problem #2 Impaired Gait PT Goal 1 Goal Patient will ambulate with even stride length bilaterally Target Visit 8 PT Problem 3 PT Problem #3 Impaired Range of Motion PT Goal 1 Goal Achieve terminal knee extension bilaterally for even stride length and joint pressure health Target Visit 8 PT Goal 2 Goal Improve R knee flexion ROM to 120 degrees for functional bend activity Target Visit 8 PT Problem 4 PT Problem #4 Impaired Strength PT Goal 1 Goal Improve marcus gross knee strength to 5/5 for improved functional stability Target Visit 8
--- NOTE | 2023-05-11 14:54 | PTOPDC ---
Assessment and note entered by Franck Mejia, PT Evaluation Information Assessment Status Discharge Diagnosis Right Knee Effusion, Knee weakness Onset Fall 2018 Subjective Information Reports that she really feel she is about the same as when she started therapy. Has had sciatica off and on since starting and really since the cortisone injection. She has been consistently exercising at the [facility] and would like to continue with HEP in congruency with her time there. Requests discharge from skilled therapy at this time. Reported Pain Level Pain Score 2: Self Report Assessment PT Clinical Summary Patient has seen some ROM improvement in certain directions. She has seen on the opposing side loss in knee flexion due to neurological tension. 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 I feel this would be a good route to help decompress her spine as she works through spinal mobility and postural control. Plan of Care PT Services Indicated Yes
--- NOTE | 2023-05-11 14:54 | OPREHPOC ---
Outpatient Therapy Plan of Care This is a Multidisciplinary Plan of Care that may contain components documented by all disciplines (PT, OT, and ST.) PT Problem 1 PT Problem #1 Knowledge Deficit PT Goal 1 Goal Independent with HEP Target Visit 4 Progress Met PT Problem 2 PT Problem #2 Impaired Gait PT Goal 1 Goal Patient will ambulate with even stride length bilaterally Target Visit 8 Progress Partially Met PT Problem 3 PT Problem #3 Impaired Range of Motion PT Goal 1 Goal Achieve temrinal knee extension bilaterally for even stride length and joint pressure health Target Visit 8 Progress Not Met Comment Lacking terminal motion bilaterally PT Goal 2 Goal Improve R knee flexion ROM to 120 degrees for functional bend activity Target Visit 8 Progress Not Met Comment Regressed due to sciatic pain PT Problem 4 PT Problem #4 Impaired Strength PT Goal 1 Goal Improve marcus gross knee strength to 5/5 for improved functional stability Target Visit 8 Progress Partially Met
== END 2023-05-12 09:13 | disposition home or self-care (01) ==
LOC: ANHPT 12:30
PROVIDERS: PCP Family Medicine; Visit Provider Anesthesiology Pain Medicine
DX: M17.0 Bilateral primary osteoarthritis of knee (principal); M25.469 Effusion, unspecified knee; M79.7 Fibromyalgia
CPT/HCPCS: 97014; 97110; 97140; 97161; 97530; G0283

== ENCOUNTER 2023-06-08 06:43 | Outpatient (RCR) | payer OTHER, SELFPAY ==
[2023-03-20 07:42] LABS: Prothrombin Time 57.9 Seconds (11.1-14.7)
[2023-03-20 08:25] LABS: INR 5.9
[2023-03-23 08:17] LABS: INR 2.4; Prothrombin Time 28.1 Seconds (11.1-14.7)
[2023-03-30 11:48] LABS: INR 3.1
[2023-04-27 11:22] LABS: INR 4.7; Prothrombin Time 48.1 Seconds (11.1-14.7)
[2023-05-25 09:22] LABS: INR 2.7; Prothrombin Time 30.4 Seconds (11.1-14.7)
[2023-06-08 09:16] LABS: Prothrombin Time 37.4 Seconds (11.1-14.7)
[2023-06-08 09:17] LABS: INR 3.4
== END 2023-06-18 23:59 | disposition home or self-care (01) ==
LOC: ANHLAB 06:43
PROVIDERS: PCP Student in an Organized Health Care Education/Training Program; Visit Provider Internal Medicine Cardiovascular Disease
DX: Z51.81 Encounter for therapeutic drug level monitoring (principal); Z95.2 Presence of prosthetic heart valve; Z79.01 Long term (current) 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s
CPT/HCPCS: 36415; 85610

== ENCOUNTER 2023-08-23 07:51 | Outpatient (CLI) | payer OTHER, SELFPAY ==
[2023-08-23 08:31] LABS: Partial Thromboplastin Time 27.1 Sec (23.9-30.70); Prothrombin Time 10.7 Seconds (9.50-12.1)
== END 2023-08-23 07:52 | disposition home or self-care (01) ==
PROVIDERS: PCP Student in an Organized Health Care Education/Training Program; Visit Provider Internal Medicine Cardiovascular Disease
DX: Z01.818 Encounter for other preprocedural examination (principal); Q23.1 Congenital insufficiency of aortic valve; Z95.2 Presence of prosthetic heart valve; Z79.01 Long term (current) 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s
CPT/HCPCS: 36415; 85610; 85730

== ENCOUNTER 2023-09-10 08:40 | Outpatient (RCR) | payer OTHER, SELFPAY ==
[2023-07-06 08:16] LABS: INR 2.3; Prothrombin Time 26.7 Seconds (11.1-14.7)
[2023-07-13 07:32] LABS: INR 2.3; Prothrombin Time 26.8 Seconds (11.1-14.7)
[2023-07-20 07:56] LABS: INR 2.6; Prothrombin Time 30.2 Seconds (11.1-14.7)
[2023-08-17 08:41] LABS: INR 2.2; Prothrombin Time 25.9 Seconds (11.1-14.7)
[2023-08-31 07:54] LABS: INR 2.9; Prothrombin Time 32.3 Seconds (11.1-14.7)
[2023-09-10 14:18] LABS: Prothrombin Time 56.5 Seconds (11.1-14.7)
[2023-09-10 14:46] LABS: INR 5.6
== END 2023-10-04 23:59 | disposition home or self-care (01) ==
LOC: ANHWCLAB 08:40
PROVIDERS: PCP Student in an Organized Health Care Education/Training Program; Visit Provider Internal Medicine Cardiovascular Disease
DX: Z51.81 Encounter for therapeutic drug level monitoring (principal); Z95.2 Presence of prosthetic heart valve; Z79.01 Long term (current) 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s
CPT/HCPCS: 36415; 85610

== ENCOUNTER 2023-10-19 07:23 | Outpatient (RCR) | payer OTHER, SELFPAY ==
[2023-09-14 08:45] LABS: Prothrombin Time 53.9 Seconds (11.1-14.7)
[2023-09-14 09:02] LABS: INR 5.9
[2023-09-18 07:32] LABS: INR 2.6; Prothrombin Time 28.8 Seconds (11.1-14.7)
[2023-09-23 07:55] LABS: INR 3.6; Prothrombin Time 36.1 Seconds (11.1-14.7)
[2023-09-29 08:18] LABS: INR 4.7; Prothrombin Time 44.7 Seconds (11.1-14.7)
[2023-10-05 07:29] LABS: INR 3.7; Prothrombin Time 37.1 Seconds (11.1-14.7)
[2023-10-19 07:58] LABS: Prothrombin Time 32.3 Seconds (11.1-14.7)
== END 2023-11-16 07:08 | disposition home or self-care (01) ==
LOC: ANHLAB 07:23
PROVIDERS: PCP Student in an Organized Health Care Education/Training Program; Visit Provider Internal Medicine Cardiovascular Disease
DX: Z95.2 Presence of prosthetic heart valve (principal); Z79.01 Long term (current) 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s
CPT/HCPCS: 36415; 85610

== ENCOUNTER 2023-11-12 09:23 | Outpatient (CLI) | payer OTHER, SELFPAY ==
--- NOTE | ~2023-11-12 | DEXA_ITS ---
Bone Density Report Name: JOVITA NIXON Age: 68 Sex: Female Ethnicity: White Date of : 1955 Indication: postmenopausal; screening for osteoporosis; height loss; prior fracture; asthma or emphysema; Referring Provider: BERNADINE, PETERSON Study: Bone densitometry was performed. Exam Date: November 12, 2023 Accession number: [id number] Bone Density: Region BMD T-score Z-score Classification AP Spine(L1-L4) 0.998 -0.4 1.4 Normal Femoral Neck (Left) 0.628 -2.0 -0.4 Osteopenia Total Hip (Left) 0.687 -2.1 -0.8 Osteopenia Femoral Neck (Right) 0.726 -1.1 0.5 Osteopenia Total Hip (Right) 0.712 -1.9 -0.6 Osteopenia Total Hip Mean 0.700 -2.0 -0.7 Osteopenia World Health Organization criteria for BMD impression classify patients as: Normal (T-score at or above -1.0), Osteopenia (T-score between -1.0 and -2.5), or Osteoporosis (T-score at or below -2.5). 10-year Fracture Risk: FRAX not reported because: Treated for osteoporosis Clinical Information Provided by Patient: Has had a low trauma fracture Is being treated for osteoporosis Has used the following medications: Vitamin D, Calcium Has the following medical conditions: Asthma or Emphysema Patient maximum height was 63 Menopause Age: 50 Drinks caffeinated beverages Onset of menses at age 16 Number of children 0 Impression: The patient has low bone mass, based on the Left Total Hip T-score. The patient has risk factors, including: previous fracture. Discussion: It is important to ask patients whether they are taking their medications and to encourage continued and appropriate compliance with their osteoporosis therapies to reduce fracture risk. It is also important to review their risk factors and encourage appropriate calcium and vitamin D intakes, exercise, fall prevention and other lifestyle measures. Follow-Up: Consider a repeat BMD and Vertebral Fracture Assessment (VFA) exam in 2 years or sooner if medically necessary, to reassess this patient's status. Reported by: MYLENE on 11/12/2023 9:56:00 AM. Reviewed, dictated and finalized at location AJack HEDRICK
--- NOTE | ~2023-11-12 | MM_ITS ---
EXAMINATION: MM screening padmaja BI w brittany HISTORY: Screening TECHNIQUE: Craniocaudal and mediolateral oblique 3-D tomosynthesis images were obtained and synthetic 2-D images were generated. CAD analysis was submitted and interpreted. COMPARISON: Comparison to multiple prior studies sequentially, with oldest reviewed study dated 01/06. BREAST PARENCHYMAL COMPOSITION: . Not dense: There are scattered areas of fibroglandular density. FINDINGS: There is no evidence of suspicious mass, calcification, or architectural distortion to sugg est malignancy in either breast. There has been no suspicious interval change. IMPRESSION: 1. No mammographic evidence of malignancy. 2. Recommend routine screening mammography in one year. BI-RADS Category 1: Negative Reviewed, dictated and finalized at location B.
== END 2023-11-12 09:24 | disposition home or self-care (01) ==
PROVIDERS: PCP Student in an Organized Health Care Education/Training Program; Visit Provider Student in an Organized Health Care Education/Training Program
DX: Z12.31 Encounter for screening mammogram for malignant neoplasm of breast (principal); Z78.0 Asymptomatic menopausal state; M85.852 Other specified disorders of bone density and structure, left thigh; M85.851 Other specified disorders of bone density and structure, right thigh
CPT/HCPCS: 77063; 77067; 77080

== ENCOUNTER 2024-02-01 10:47 | Outpatient (RCR) | payer OTHER, SELFPAY ==
[2023-11-16 09:12] LABS: INR 2.4; Prothrombin Time 26.1 Seconds (11.1-14.7)
[2023-11-26 08:48] LABS: INR 2.6; Prothrombin Time 28.4 Seconds (11.1-14.7)
[2023-12-24 08:31] LABS: INR 2.2; Prothrombin Time 25.4 Seconds (11.1-14.7)
[2023-12-31 09:25] LABS: INR 2.3; Prothrombin Time 25.9 Seconds (11.1-14.7)
[2024-01-11 07:33] LABS: INR 2.6; Prothrombin Time 28.2 Seconds (11.1-14.7)
[2024-02-01 11:14] LABS: INR 3.2; Prothrombin Time 32.9 Seconds (11.1-14.7)
== END 2024-02-14 23:59 | disposition home or self-care (01) ==
LOC: ANHLAB 10:47
PROVIDERS: PCP Student in an Organized Health Care Education/Training Program; Visit Provider Nurse Practitioner Adult Health
DX: Z79.01 Long term (current) 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s (principal); Z95.2 Presence of prosthetic heart valve; Z51.81 Encounter for therapeutic drug level monitoring
CPT/HCPCS: 36415; 85610

== ENCOUNTER 2024-03-27 14:13 | Emergency (ER) | payer OTHER, SELFPAY ==
[2024-03-27 14:24] VITALS: BP 133/56; PULSE 99; RESP 20; TEMP 36.9; O2SAT 98
--- NOTE | 2024-03-27 15:16 | ED.GENADULT ---
HPI - General Adult General Chief complaint: Epistaxis Stated complaint: nosebleed Time Seen by Provider: 03/27/24 14:49 History of Present Illness HPI narrative: patient is a 68-year-old female who presents emergency department with chief complaint of epistaxis. Patient reports that she has prior history of nose bleeds reports that she is on Coumadin the patient states she is also due to have her INR checked. Patient states that she had no trauma reports that she started having some bleeding yesterday was able to get the bleeding stopped but then today started bleeding again the patient attempted to pack her nose at home and has continued to have oozing from the site. Patient reports she sees Dr. Red with ENT Related Data Home Medications ?Medication ?Instructions ?Recorded ?Confirmed ?Last Taken ?Type aspirin 81 mg tablet,delayed 81 mg PO DAILY 05/07/21 06/16/23 Unknown History release atorvastatin 20 mg tablet 20 mg PO DAILY 05/07/21 06/16/23 Unknown History calcium carbonate (Calcium 600) 600 mg PO DAILY 05/07/21 06/16/23 Unknown History cholecalciferol (vitamin D3) 10 10 mcg PO DAILY 05/07/21 06/16/23 Unknown History mcg (400 unit) capsule (Vitamin D3) warfarin 4 mg tablet 4 mg PO QTUTHSASU 05/07/21 06/16/23 Unknown History latanoprost 0.005 % eye drops 1 drp EACH EYE QPM 08/14/22 06/16/23 Unknown History mecobalamin (vitamin B12) 1,000 1,000 mcg PO DAILY 02/19/23 06/16/23 Unknown History mcg chewable tablet magnesium oxide 400 mg PO DAILY 02/24/23 06/16/23 Unknown History Allergies Allergy/AdvReac Type Severity Reaction Status Date / Time pregabalin (From Lyrica) Allergy Intermediate rash Verified 06/16/23 14:40 cortisone AdvReac Mild Leg pain Verified 06/16/23 14:40 molnupiravir AdvReac Mild Rash Verified 06/16/23 14:40 Review of Systems Review of Systems: A 10 system review of systems was completed on the patient and is negative except for what is stated in the HPI. Nursing and ancillary documentation was reviewed. [facility] Past Medical History Medical History Encounter for Papanicolaou smear for cervical cancer screening Effusion of knee joint Left knee DJD Right knee DJD Cellulitis Fibromyalgia Asthma Sciatica Carpal tunnel syndrome, left Cataracts, both eyes Arthritis Glaucoma Screening mammogram, encounter for High cholesterol Heartburn Warfarin anticoagulation Surgical History Surgical History History of carpal tunnel release History of cervical cerclage History of foot surgery 1997 1985 H/O aortic valve replacement Family History Family History Father Family history of coronary artery disease, Onset Age: 91 Mother Cerebrovascular accident Sibling Diabetes mellitus sister Other Family history of arthritis Family history of cardiovascular disease Family history of mental disorder Social History Social History Smoking status: Never smoker Second hand tobacco smoke exposure: No Alcohol intake: current Alcohol use details: social 1 a month Substance use: never Substance use type: does not use Do You Feel Safe in your Home?: Yes Lack of Transportation: No Lack of Food: Never True Current Housing: I Have Housing Concerned About Future Housing: No Difficulty Paying Gas/Electric Bills: No Difficulty Paying for Meds: No Currently Unemployed: No Education: Trade/Vocational Certificate Difficulty w/ Childcare or Family Care: No Living arrangements: with family Additional living arrangements comments: spouse Occupation/Education: retired Gender identity (if verbalized by the patient): Female Sexual Orientation (if Verbalized by the Patient): Straight or Heterosexual Agree to blood products: Yes Exam Narrative: GENERAL: Well-appearing, well-nourished, and in no acute distress. HEAD: Normocephalic, atraumatic. EYES: PERRLA and EOMI. ENT: Nares clear, no rhinorrhea there is packing material present in the right nostril with dried blood a nose clamp is in place. Mucous membranes moist. NECK: Supple. CHEST: Clear to auscultation. No respiratory distress. HEART: Regular rate and rhythm. No murmur heard. Normal peripheral pulses. ABDOMEN: Soft, nontender, nondistended, normal active bowel sounds. EXTREMITIES: Normal range of motion. No edema. SKIN: Warm, dry, no rash. NEURO: No focal deficits. Alert and oriented x3. PSYCH: Normal mood and affect. Course Vital Signs Vital signs: Vital Signs Temperature 36.9 C 03/27/24 14:24 Pulse Rate 99 03/27/24 14:24 Respiratory Rate 20 03/27/24 14:24 Blood Pressure 133/56 L 03/27/24 14:24 Pulse Oximetry 98 03/27/24 14:24 Oxygen Delivery Room Air 03/27/24 14:24 Temperature 36.9 C 03/27/24 14:24 Pulse Rate 99 03/27/24 14:24 Respiratory Rate 20 03/27/24 14:24 Blood Pressure 133/56 L 03/27/24 14:24 Pulse Oximetry 98 03/27/24 14:24 Oxygen Delivery Room Air 03/27/24 14:24 Procedures Epistaxis Control right: Epistaxis Control Date: 03/27/24 Epistaxis Control Time: 15:35 Time Out Performed: Yes Nose Prepped With: lidocaine Direct Inspection: yes Clots Removed by: blowing nose Cautery Used: none Device Inserted: hemostatic balloon Device Size: 75 Patient Tolerated Procedure: well Medical Decision Making Vital Signs Vital Signs: Vital Signs Temperature 36.9 C 03/27/24 14:24 Pulse Rate 99 03/27/24 14:24 Respiratory Rate 20 03/27/24 14:24 Blood Pressure 133/56 L 03/27/24 14:24 Pulse Oximetry 98 03/27/24 14:24 Oxygen Delivery Room Air 03/27/24 14:24 Temperature 36.9 C 03/27/24 14:24 Pulse Rate 99 03/27/24 14:24 Respiratory Rate 20 03/27/24 14:24 Blood Pressure 133/56 L 03/27/24 14:24 Pulse Oximetry 98 03/27/24 14:24 Oxygen Delivery Room Air 03/27/24 14:24 Lab Data 03/27/24 15:21 03/27/24 15:21 Labs: Lab Results 03/27/24 Range/Units 15:21 WBC 6.2 (4.5-10.0) K/mm3 RBC 4.06 L (4.2-5.4) M/mm3 Hgb 13.2 (12.0-15.0) g/dL Hct 39.9 (37.0-47.0) % MCV 98.3 (80-100) fl MCH 32.5 (26-34) pg MCHC 33.1 (32-36) g/dl RDW 13.0 (11.5-14.5) % Plt Count 211 (150-375) k/mm3 MPV 10.4 (7.4-10.4) fl Immature Gran % (Auto) 1.5 H (0-0.5) % Neut % (Auto) 59.1 (45.5-73.1) % Lymph % (Auto) 27.1 (18.3-44.2) % Posey % (Auto) 9.2 H (2.6-8.5) % Eos % (Auto) 2.1 (0-4.4) % Baso % (Auto) 1.0 (0.2-1.2) % Lymph # (Auto) 1.67 (0.9-3.2) K/mm3 Posey # (Auto) 0.6 (0.1-0.6) K/mm3 Eos # (Auto) 0.1 (0-0.3) K/mm3 Baso # (Auto) 0.1 (0.0-0.1) K/mm3 Abs Immat Gran (auto) 0.09 H (0.00-0.031) K/mm3 Absolute Neuts (auto) 3.7 (1.3-6.7) K/mm3 Absolute Nucleated RBC 0.000 (0.0-0.012) K/mm3 Nucleated RBC % 0.0 (0.0-0.2) % PT 28.5 H (11.1-14.7) Seconds INR 2.6 APTT 40.0 H (22.3-36.8) Seconds Sodium 138 (137-145) mmol/L Potassium 4.0 (3.4-5.0) mmol/L Chloride 106 (98-107) mmol/L Carbon Dioxide 33 H (22-30) mmol/L Anion Gap -1 L (4-12) mmol/L BUN 26 H (7-17) mg/dL Creatinine 0.80 (0.7-1.0) mg/dL Estim Creat Clear Calc 49 ml/min Estimated GFR > 60 (59 - ) Glucose 100 (65-110) mg/dL Calcium 9.2 (8.4-10.2) mg/dL Total Bilirubin 0.7 (0.2-1.3) mg/dL AST 49 H (14-36) U/L ALT 29 (6-35) U/L Alkaline Phosphatase 94 (38-126) U/L Total Protein 7.0 (6.3-8.2) g/dL Albumin 4.3 (3.5-5.1) g/dL Discharge Plan Discharge Clinical Impression: Epistaxis Patient Disposition: Home, Self-Care Condition: Stable Instructions: Antibiotic Form, Nosebleed (ED) Patient Language: Macedonian Prescriptions: No Action warfarin 4 mg tablet 4 mg PO QTUTHSASU aspirin 81 mg tablet,delayed release (DR/EC) 81 mg PO DAILY atorvastatin 20 mg tablet 20 mg PO DAILY calcium carbonate [Calcium 600] 600 mg calcium (1,500 mg) tablet 600 mg PO DAILY cholecalciferol (vitamin D3) [Vitamin D3] 10 mcg (400 unit) capsule 10 mcg PO DAILY mecobalamin (vitamin B12) 1,000 mcg tablet,chewable 1,000 mcg PO DAILY albuterol sulfate [ProAir HFA] 90 mcg/actuation HFA aerosol inhaler 1 puff inhalation Q4H PRN (Reason: shortness of breath or wheezing) Qty: 8.5 0RF latanoprost 0.005 % drops 1 drp EACH EYE QPM magnesium oxide 400 mg magnesium capsule 400 mg PO DAILY Follow-up/Referrals: Turner Red MD [Other] Chivo,DO Sanket [Primary Care Provider] - Time of Disposition: 15:57
--- NOTE | 2024-03-27 15:25 | PC.NURSE ---
Pt right nare packed by EDP
[2024-03-27 15:34] LABS: Basophils Absolute Auto 0.1 K/mm3 (0.0-0.1); Eosinophils Absolute Auto 0.1 K/mm3 (0-0.3); Eosinophils Percent Auto 2.1 % (0-4.4); Hematocrit 39.9 % (37.0-47.0); Hemoglobin 13.2 g/dL (12.0-15.0); Immature Granulocyte Absolute 0.09 K/mm3 (0.00-0.031); Immature Granulocyte Percent A 1.5 % (0-0.5); Lymphocytes Absolute Auto 1.67 K/mm3 (0.9-3.2); Lymphocytes Percent Auto 27.1 % (18.3-44.2); Mean Corpuscular HGB Conc 33.1 g/dl (32-36); Mean Corpuscular Hemoglobin 32.5 pg (26-34); Mean Corpuscular Volume 98.3 fl (80-100); Mean Platelet Volume 10.4 fl (7.4-10.4); Monocytes Absolute Auto 0.6 K/mm3 (0.1-0.6); Monocytes Percent Auto 9.2 % (2.6-8.5); Neutrophils Absolute Auto 3.7 K/mm3 (1.3-6.7); Neutrophils Percent Auto 59.1 % (45.5-73.1); Platelet Count Result 211 k/mm3 (150-375); Red Blood Count 4.06 M/mm3 (4.2-5.4); White Blood Count 6.2 K/mm3 (4.5-10.0)
[2024-03-27 15:38] LABS: Alanine Aminotransferase 29 U/L (6-35); Albumin Level 4.3 g/dL (3.5-5.1); Alkaline Phosphatase 94 U/L (38-126); Anion Gap -1 mmol/L (4-12); Aspartate Amino Transferase 49 U/L (14-36); Bilirubin,Total 0.7 mg/dL (0.2-1.3); Blood Urea Nitrogen 26 mg/dL (7-17); Calcium 9.2 mg/dL (8.4-10.2); Carbon Dioxide 33 mmol/L (22-30); Chloride 106 mmol/L (98-107); Estimated CRCL calculation 49 ml/min; Estimated Glomerular Filt Rate > 60; Glucose 100 mg/dL (65-110); Sodium 138 mmol/L (137-145)
[2024-03-27 15:42] LABS: INR 2.6; Prothrombin Time 28.5 Seconds (11.1-14.7)
--- OUTSIDE RECORDS SUMMARY | 2024-04-01 07:30 | XMS_ITS ---
Author Organization [facility] Address [address] [place] [address] Care Team Providers Care Casing Cleaner Name Role Phone Payal Méndez Unavailable [phone] zzzzMigration, zzzzProvider Unavailable Unav ailable REASON FOR VISIT [facility] [place] Encounter Location Date Provider Diagnosis [facility] [address] [facility] [address] [place] [address] 01/31/2023 zzzzProvider zzzzMigration Plan Of Treatment Medication Medication Name Sig Start Date Stop Date Notes Gabapentin 100 MG take 1 capsule (100 mg) by oral route 2 times per day Oral 3 for 30 04/23/2021 07/22/2021 Progress Notes * Yessy DONALDSONDOB: [birth year] (68 yo F)Acc No.[id number]:01/31/2023 Patient:?Yessy DONALDSON :1955???Age:67 Y???Sex:Female [address] [address] * Refills? Stop Gabapentin Capsule, 100 MG, Oral, 60, take 1 capsule (100 mg) by oral route 2 times per day, 3, 30 Subjective: * Chief Complaints: * ???[facility] [place] * Medical History:? * Surgical History:? * Hospitalization/Major Diagno stic Procedure:? * Medications:? Objective: * Vitals:? * Physical Examination:? Assessment: Plan: * Treatment: * Procedure Codes:? * * Date:?
--- OUTSIDE RECORDS SUMMARY | 2024-04-01 07:30 | XMS_ITS ---
Author Organization [facility] zee Address [address] [place] [address] Care Team Providers Care Nurse Sexual Assault Name Role Phone Payal Méndez Unavailable [phone] zzzzMigration, zzzzProvider Unavailable Unav ailable Allergies Allergen (clinical drug ingredient) Drug/Non Drug Allergy documented on EMR Reaction Allergy Type Onset Date Status pregabalin Lyrica Unknown Drug Allergy 03/21/2021 Activ e REASON FOR VISIT EMR-[facility] Medications Medication SIG (Take, Route, Frequency, Duration) Notes Start Date End Date Status Aspirin Adult Low Strength 81 MG take 1 tablet (81 mg) by oral route once daily Oral 1 Active Atorvastatin Calcium 20 MG take 1 tablet (20 mg) by oral route once daily Oral 1 Active Albuterol Sulfate HFA 108 (90 Base) MCG/ACT prn Inhalation Active Warfarin Sodium 4 MG take 1 tablet (4 mg ) by oral route once daily Oral 1 Active Celecoxib 200 MG take 1 capsule (200 mg) by oral route 2 times per day Oral 2 Active Encounters Encounter Location Date Provider Diagnosis [facility] [address] [facility] [address] [place] [address] 02/01/2023 zzzzProvider zzzzMigration Plan Of Treatment No Information Progress Notes * Yessy DONALDSONDOB: [birth year] (68 yo F)Acc No.[id number]:02/01/2023 Patient:?Yessy DONALDSON :1955???Age:67 Y???Sex:Female Address:[address] , [place], [address] Subjective: * Chief Complaints: * ???EMR-[facility] * Medical History:? * Surgical History:?Aortic florentino ve replacement; [id number]; 9227-78-72Novfvz tunnel release; [id number] surgery; 2021-03-21 * Hospitalization/Major Diagno stic Procedure:? * Family History:?Migrated Fam tatianna History: Brain Tumor , CVA (Cerebrovascular accident) , Myocardial Infarction .? * Social History:?Migrated Social History:?Migrated Social History: :: 1 Son , Exercise :: None Lately , Marital Status :: , Substance Use :: rare alcohol usage , Substance Use :: Tobacco :: Former :: note : 03/29/2021 - smoked for 3 months at age 20:: AgeStart :: 20 :: AgeStop :: 20. * Medications:?TakingWarfarin Sodium 4 MG Tablet take 1 tablet (4 mg) by oral route once daily Oral 1 Aspirin Adult Low Strength 81 MG Tablet Delayed Release take 1 tablet (81 mg) by oral route once daily Oral 1 Celecoxib 200 MG Capsule take 1 capsule (200 mg) by oral route 2 times per day Oral 2 Atorvastatin Calcium 20 MG Tablet take 1 tablet (20 mg) by oral route once daily Oral 1 Albuterol Sulfate HFA 108 (90 Base) MCG/ACT Aerosol Solution prn Inhalation Taking Warfarin Sodium 4 MG Tablet take 1 tablet (4 mg) by oral route once daily Oral 1 Taking Aspirin Adult Low Strength 81 MG Tablet Delayed Release take 1 tablet (81 mg) by oral route once daily Oral 1 Taking Celecoxib 200 MG Capsule take 1 capsule (200 mg) by oral route 2 times per day Oral 2 Taking Atorvastatin Calcium 20 MG Tablet take 1 tablet (20 mg) by oral route once daily Oral 1 Taking Albuterol Sulfate HFA 108 (90 Base) MCG/ACT Aerosol Solution prn Inhalation * Allergies:?Lyrica: Allergy - Onset Date 03/21/2021 Objective: * Vitals:? * Physical Examination:? Assessment: Plan: * Treatment: * Procedure Codes:? * * Date:?
--- OUTSIDE RECORDS SUMMARY | 2024-04-01 07:30 | XMS_ITS | Patient Health Record ---
Author Organization [facility]ee Address [address] [place] [address] Care Team Providers Care Plumbing And Heating Contractor Name Role Phone Payal Méndez Unavailable [phone] Reason For Referral No Information Medications Medication SIG (Take, Route, Frequency, Duration) [...] 2 times per day Oral 2 Active Plan Of Treatment No Information Insurance Providers Payer Name Payer Address Payer Phone Subscriber Number Group Number Insured Name Patient Relationship to Insured Coverage Start Date Coverage End Date [place] [address] [place] [address] [id number] Yessy Donaldson Self - patient is the insured Medical (General) History Surgical History Surgery Date(Month/Year) Foot surgery; 2021-03-21 Carpal tunnel release; 2021-03-21 Bunionectomy; 2021-03-21 Aortic valve replacement; 2021-03-21
--- OUTSIDE RECORDS SUMMARY | 2024-04-01 07:30 | XMS_ITS | Clinical Summary ---
Author Organization [facility] Address [address] [place] [address] Care Team Providers Care Surgical Services Coordinator Name Role Phone Unavailable Primary Care Provider Unavailabl e Source Comments [facility],non-owned Affiliates and Associated Physician Practices is amultiple site organization consisting of ambulatory clinics and hospital sitesin [place], [place], [place] and [place]. This disclosure is being madepursuant to the Care Everywhere program and may not contain all information available regarding this patient. Last updated 18.[facility] Encounters Date Type Department Care Team Description 01/08/2024 Lab Requisition [facility] - DermPath Lab [address] [place] [address] Jamilah Garzon PA Neoplasm of uncertain behavior of skin from Last 3 Months Social History Tobacco Use Types Packs/Day Years Used Date Smoking Tobacco: Never Assessed Sex and Gender Information Value Date Recorded Sex Assigned at Not on file Gender Identity Not on file Sexual Orientation Not on file Plan of Treatment Health Maintenance Due Date Last Done Comments BONE DENSITY TESTING 1955 COLOGUARD (AGES 45-75) - COL ON CA SCREENING 1955 COLON MONITORING 1955 COLONOSCOPY - COLON CA SCREENING 1955 CT COLONOGRAPHY - COLON CA SCREENING 1955 Colorectal Cancer Screening 1955 FIT - COLON CA SCREENING 1955 FLEX SIG - COLON CA SCREENING 1955 LIPID TESTING 1955 MAMMOGRAM 1955 HEPATITIS C SCREENING 08/16/1975 DTAP/TDAP/TD VACCINES (1 - Tdap) 1976 ZOSTER VACCINE (1 of 2) 08/21/2007 PNEUMOCOCCAL VACCINE 65+ (1 of 1 - PCV) 2022 DEPRESSION SCREENING 04/13/2023 MEDICARE AWV ? CALENDAR YEAR 2023 COVID-19 VACCINE (2023-2 5 season) 2023 INFLUENZA VACCINE (#1) 2023 Respiratory Syncytial Virus (RSV) Vaccine Pt: or over 60 yrs (1 - 1-dose 75+ series) 2032 HEPATITIS B VACCINE Aged Out No longe r eligible based on patient's age to complete this topic HIB VACCINE Aged Out No longer eligi ble based on patient's age to complete this topic HPV VACCINE Aged Out No longer eligi ble based on patient's age to complete this topic MENINGOCOCCAL VACCINE Aged Out No ed jus eligible based on patient's age to complete this topic Procedures Procedure Name Priority Date/Time Associated Diagnosis Comments DERMATOPATHOLOGY Routine 01/08/2024 12:0 0 AM CDT Neoplasm of uncertain behavior of skin from Last 3 Months Results * DERMATOPATHOLOGY (01/08/2024 12:00 AM CDT) Case Report Dermatopathology Report ? Case: [id number] ? Authorizing Provider: ??Jamilah Garzon PA ? Collected: ? 01/08/2024 12:00 AM ? Ordering Location: ? [facility] - ??Received: ?01/11/2024 11:17 AM ? DermPath Lab ? Pathologist: ? Kym Campuzano, ? MD ? Specimen: ?Skin, left superior cheek ? 4 3:08 PM CDT DERMATOPATHOLOGY LABORATORY Final Diagnosis Specimen A. SKIN, left superior cheek: BASAL CELL CARCINOMA, NODULAR TYPE, ERODED AND WITH CLEAR CELL CHANGE (C44.319) 4 3:08 PM T DERMATOPATHOLOGY LABORATORY Clinical History Neoplasm of uncertain behavior vs BCC 4 3:08 PM T DERMATOPATHOLOGY LABORATORY Gross Description Specimen A: Received is one formalin filled container labeled with the patient's name and designated left superior cheek. The specimen consists of a shave biopsy measuring 7x6x1 mm. Jar 0. 4 3:08 PM T DERMATOPATHOLOGY LABORATORY Microscopic Description Specimen A. SKIN, left superior cheek: Within the dermis there are aggregates of basaloid cells with a high nuclear to cytoplasmic ratio and peripheral palisading. The epidermis is partially eroded. Some cells have a pale cytoplasm. The proliferation is faintly positive for BerEP4 and negative for BRANDON and CK7. 3:08 PM T DERMATOPATHOLOGY LABORATORY Disclaimer An external and internal positive and negative controls are appropriate for the histochemical, immunohistochemical and immunofluorescence stain(s) in this case (if any), except where stated explicitly. The performance characteristics of the stain(s) cited in this report were developed and its performance characteristic determined by the Dermatopathology Laboratory at [facility], directed by Dr. Thaddeus Souza. These tests need not be, and therefore are not, approved by the [place] Food and Drug Administration. The tests are used for clinical purposes. Billing Codes Specimen Charges Stain Charges 68937 1 15862 30523 23924 1 1 1 4 3:08 PM CDT DERMATOPATHOLOGY LABORATORY Embedded Images 4 3:08 PM CDT DERMATOPATHOLOGY LABORATORY Pathology/Cytolog y TISSUE SPECIMEN FROM SKIN / Unknown 01/08/2024 01/11/2024 11:17 AM CDT Jamilah DAVEY LAB - PATHOLOGY/CYT OLOGY ORDERABLES DERMATOPATHOLOGY LABORATORY [facility] - Department of Dermatology [address] [phone] from Last 3 Months Yessy Donaldson Personal/Family Self 1955
--- OUTSIDE RECORDS SUMMARY | 2024-04-01 07:30 | XMS_ITS | Encounter Summary ---
Author Organization [facility] Address [address] [place] [address] Care Team Providers Care Chiropractor Assistant Name Role Phone Unavailable Primary Care Provider Unavailabl e Encounter Details Date Type Department Care Team (Late st Contact Info) Description 01/08/2024 Lab Requisition [facility] - DermPath Lab [address] [facility] [place] [address] Jamilah Garzon PA [address] [place] [address] Neoplasm of uncertain behavior of skin Social History Tobacco Use Types Packs/Day Years Used Date Smoking Tobacco: Never Assessed Sex and Gender Information Value Date Recorded Sex Assigned at Not on file Gender Identity Not on file Sexual Orientation Not on file documented as of this encounter Plan of Treatment Not on file documented as of this encounter Procedures Procedure Name Priority Date/Time Associated Diagnosis Comments DERMATOPATHOLOGY Routine 01/08/2024 12:0 0 AM CDT Neoplasm of uncertain behavior of skin documented in this encounter Results * DERMATOPATHOLOGY (01/08/2024 12:00 AM CDT) Case Report Dermatopathology Report ? Case: [id number] ? Authorizing Provider: ??Jamilah Garzon PA ? Collected: ? 01/08/2024 12:00 AM ? Ordering Location: ? [facility] - ??Received: ?01/11/2024 11:17 AM ? DermPath Lab ? Pathologist: ? Kym Campuzano, ? MD ? Specimen: ?Skin, left superior cheek ? 4 3:08 PM CDT DERMATOPATHOLOGY LABORATORY Final Diagnosis Specimen A. SKIN, left superior cheek: BASAL CELL CARCINOMA, NODULAR TYPE, ERODED AND WITH CLEAR CELL CHANGE (C44.319) 4 3:08 PM CDT DERMATOPATHOLOGY LABORATORY Clinical History Neoplasm of uncertain behavior vs BCC 4 3:08 PM CDT DERMATOPATHOLOGY LABORATORY Gross Description Specimen A: Received is one formalin filled container labeled with the patient's name and designated left superior cheek. The specimen consists of a shave biopsy measuring 7x6x1 mm. Jar 0. 10/02/202 4 3:08 PM CDT DERMATOPATHOLOGY LABORATORY Microscopic Description Specimen A. SKIN, left superior cheek: Within the dermis there are aggregates of basaloid cells with a high nuclear to cytoplasmic ratio and peripheral palisading. The epidermis is partially eroded. Some cells have a pale cytoplasm. The proliferation is faintly positive for BerEP4 and negative for BRANDON and CK7. 4 3:08 PM CDT DERMATOPATHOLOGY LABORATORY Disclaimer An external and internal positive and negative controls are appropriate for the histochemical, immunohistochemical and immunofluorescence stain(s) in this case (if any), except where stated explicitly. The performance characteristics of the stain(s) cited in this report were developed and its performance characteristic determined by the Dermatopathology Laboratory at [facility], directed by Dr. Thaddeus Souza. These tests need not be, and therefore are not, approved by the [place] Food and Drug Administration. The tests are used for clinical purposes. Billing Codes Specimen Charges Stain Charges 42330 1 22577 [id number] 25577 1 1 1 4 3:08 PM CDT DERMATOPATHOLOGY LABORATORY Embedded Images 3:08 PM CDT DERMATOPATHOLOGY LABORATORY Pathology/Cytolog y TISSUE SPECIMEN FROM SKIN / Unknown 01/08/2024 01/11/2024 11:17 AM CDT Jamilah DAVEY LAB - PATHOLOGY/CYT OLOGY ORDERABLES DERMATOPATHOLOGY LABORATORY [facility] - Department of Dermatology [address] [phone] documented in this encounter Visit Diagnoses Diagnosis Neoplasm of uncertain behavior of skin documented in this encounter
--- OUTSIDE RECORDS SUMMARY | 2024-04-01 07:30 | XMS_ITS | Patient Health Summary ---
Author Organization [facility] Address [address] [place] [address] Care Team Providers Care Automatic Pattern Edger Name Role Phone Unavailable Primary Care Provider Unavailabl e Note from [facility],non-owned Affiliates and Associated Physician Practices is amultiple site organization consisting of ambulatory clinics and hospital sitesin [place], [place], [place] and [place]. This disclosure is being madepursuant to the Care Everywhere program and may not contain all information available regarding this patient. Last updated 18.[facility] Social History Tobacco Use Types Packs/Day Years Used Date Smoking Tobacco: Never Assessed Sex and Gender Information Value Date Recorded Sex Assigned at Not on file Gender Identity Not on file Sexual Orientation Not on file Procedures * DERMATOPATHOLOGY(Performed 01/08/2024) Performed for Neoplasm of uncertain behavior of skin Results * DERMATOPATHOLOGY (01/08/2024 12:00 AM CDT) Case Report Dermatopathology Report ? Case: [id number] ? Authorizing Provider: ??Jamilah Garzon PA ? [...] CLEAR CELL CHANGE (C44.319) 4 3:08 PM [facility] DERMATOPATHOLOGY [facility]ORATORY Clinical History Neoplasm of uncertain [...] characteristic determined by the Dermatopathology Laboratory at [facility], directed by Dr. Thaddeus Souza. These tests need not be, and therefore are not, approved by the [place] Food and Drug Administration. The tests are used for clinical purposes. Billing Codes Specimen Charges Stain Charges 57967 1 41829 33956 90857 1 1 1 4 3:08 PM CDT DERMATOPATHOLOGY LABORATORY Embedded Images 4 3:08 PM CDT DERMATOPATHOLOGY LABORATORY Pathology/Cytolog y TISSUE SPECIMEN FROM SKIN / Unknown 01/08/2024 01/11/2024 11:17 AM CDT [facility] - PATHOLOGY/CYT OLOGY ORDERABLES DERMATOPATHOLOGY LABORATORY [facility] - Department of Dermatology [facility] [address] [place] [address], [address] [phone]
--- OUTSIDE RECORDS SUMMARY | 2024-04-01 07:30 | XMS_ITS | Referral Summary ---
Author Organization [facility] Address [address] [place] [address] Care Team Providers Care Obstetric Assistant Name Role Phone Unavailable Primary Care Provider Unavailabl e Source Comments [facility],non-owned Affiliates and Associated Physician Practices is amultiple site organization consisting of ambulatory clinics and hospital sitesin [place], [place], [place] and [place]. This disclosure is being madepursuant to the Care Everywhere program and may not contain all information available regarding this patient. Last updated 18.[facility] Encounters Date Type Department Care Team Description 01/08/2024 Lab Requisition [facility] - DermPath Lab [address] [place] [id number] Jamilah Garzon PA Neoplasm of uncertain behavior of skin from Last 3 Months Social History Tobacco Use Types Packs/Day Years Used Date Smoking Tobacco: Never Assessed Sex and Gender Information Value Date Recorded Sex Assigned at Not on file Gender Identity Not on file Sexual Orientation Not on file Plan of Treatment Not on file Procedures Procedure Name Priority Date/Time Associated Diagnosis Comments DERMATOPATHOLOGY Routine 01/08/2024 12:0 0 AM CDT Neoplasm of uncertain behavior of skin from Last 3 Months Results * DERMATOPATHOLOGY (01/08/2024 12:00 AM CDT) Case Report Dermatopathology Report ? Case: [id number] ? Authorizing Provider: ??Jamilah Garzon PA ? [...] 7x6x1 mm. Jar 0. 4 3:08 PM CDT DERMATOPATHOLOGY LABORATORY Microscopic Description Specimen A. SKIN, left superior cheek: Within the dermis there are aggregates of basaloid cells with a high nuclear to cytoplasmic ratio and peripheral palisading. The epidermis is partially eroded. Some cells have a pale cytoplasm. The proliferation is faintly positive for BerEP4 and negative for BRANDON and CK7. 3:08 PM CDT DERMATOPATHOLOGY LABORATORY Disclaimer An external and internal positive and negative controls are appropriate for the histochemical, immunohistochemical and immunofluorescence stain(s) in this case (if any), except where stated explicitly. The performance characteristics of the stain(s) cited in this report were developed and its performance characteristic determined by the Dermatopathology Laboratory at [facility], directed by Dr. Thaddeus Souza. These tests need not be, and therefore are not, approved by the [place] Food and Drug Administration. The tests are used for clinical purposes. Billing Codes Specimen Charges Stain Charges 90003 1 11125 [id number] 30956 1 1 1 4 3:08 PM CDT DERMATOPATHOLOGY LABORATORY Embedded Images 3:08 PM CDT DERMATOPATHOLOGY LABORATORY Pathology/Cytolog y TISSUE SPECIMEN FROM SKIN / Unknown 01/08/2024 01/11/2024 11:17 AM CDT [facility] - PATHOLOGY/CYT OLOGY ORDERABLES DERMATOPATHOLOGY LABORATORY [facility] - Department of Dermatology [facility] Medicine [address] [place] [address], [address] [phone] from Last 3 Months Yessy Donaldson Personal/Family Self 1955
--- OUTSIDE RECORDS SUMMARY | 2024-04-01 07:31 | XMS_ITS | Encounter Summary ---
Author Organization [facility] Address [address] [place] [address]. [place], [place] [id number] [place] [address] Care Team Providers Care Internal Grinder Name Role Phone Sanket Waldron DO Primary Care Provider + Encounter Details Date Type Department Care Team (Latest Contact Info) Description 01/27/2024 Scan HEALTH INFO [facility] Scanned, Doc Med Group Social History Tobacco Use Types Packs/Day Years Used Date Smoking Tobacco: Former Cigarettes Smokeless Tobacco: Never Comments:Smoked occasionally for 3 months in mid 70's Alcohol Use Standard Drinks/Week Comments Not Currently 0 (1 standard drink = 0.6 oz pur e alcohol) Occasional wine or daiquiri AUDIT-C Answer Date Recorded Q1: How often do you have a drink containing alc ohol? Monthly or less 02/03/2024 Q2: How many drinks containi ng alcohol do you have on a typical day when you are drinking? 1 or 2 02/03/2024 Q3: How often do you have si x or more drinks on one occasion? Never 02/03/2024 PHQ-2 Answer Date Recorded Patient Health Questionnaire-2 Score 0 02/03/2024 Comments No Sex and Gender Information Value Date Recorded Sex Assigned at Not on file Legal Sex Female 7:25 PM CDT Gender Identity Not on file Sexual Orientation Not on file documented as of this encounter Plan of Treatment Upcoming Encounters Date Type Department Care Team (Late st Contact Info) Description 05/30/2024 7:20 AM DESIGN STUDIO CONSULTANT Laboratory Only [facility] Family & Internal Medicine [address] [phone] Sanket Waldron DO [address] [place] [address] 06/06/2024 11:40 AM DESIGN STUDIO CONSULTANT Office Visit [facility] Family & Internal Medicine - [place] [address] [place] [phone] Sanket Waldron DO [address] [place] [address] documented as of this encounter Visit Diagnoses Not on filedocumented in this encounter Care Teams Internal Grinder Relationship Specialty Start Date End Date Sanket Waldron DO [address] [place] [id number] PCP - General FAMILY PRACTICE 05/26/23 documented as of this encounter
--- OUTSIDE RECORDS SUMMARY | 2024-04-01 07:31 | XMS_ITS | Clinical Summary ---
Author Organization [facility] Address [address] [place] [address]. [place], [place] [address] [place] [address] Care Team Providers Care Turntable Engineer Name Role Phone Sanket Waldron DO Primary Care Provider + Allergies Active Allergy Reactions Criticality Noted Date Comments Methylprednisolone Joint Pain,Leg Pain 03/17/20 23 Molnupiravir Rash Low 05/26/2023 Pregabalin Rash,Unknown Medium 03/21/2021 Medications Ascorbic Acid (VITAMIN C) 250 MG Chew Tab 4 Active aspirin EC (ECOTRIN) 81 MG tablet Take 1 tablet (81 mg total) by mouth daily. Active atorvastatin (LIPITOR) 20 MG tablet Take 1 tablet (20 mg total) by mouth daily. 3 Active Cyanocobalamin (B-12) 1000 MCG Tab Active latanoprost (XALATAN) 0.005 % ophthalmic solution INSTILL 1 DROP INTO RIGHT EYE AT BEDTIME 4 Active Saline (OCEAN NASAL SPRAY NA) Acti ve warfarin (COUMADIN) 2 MG tablet Take 2 tablets (4 mg total) by mouth daily. 9 Active calcium carb-cholecalcife rol (CALTRATE+D) 600-10 MG-MCG Tab tablet Take 1 tablet by mouth daily. Active Magnesium Oxide 400 MG Cap Take 1 tablet by mouth daily. Active hypromellose (ISOPTO TEARS) 0.5 % ophthalmic solution Apply 1 drop to eye. Active albuterol sulfate HFA 108 (90 Base) MCG/ACT inhalerIndication s:Mild intermittent asthma without complication (HHS/HCC) Inhale 2 puffs into the lungs every 6 (six) hours as needed. 18 g 1 4 Active gabapentin (NEURONTIN) 600 MG tabletIndications :Fibromyalgia Take 1 tablet (600 mg total) by mouth 2 (two) times daily for 7 days, THEN 1 tablet (600 mg total) daily for 7 days. 21 tablet 4 03/02/20 24 sulfamethoxazole- trimethoprim (BACTRIM DS) 800-160 MG tabletIndications :Acute cystitis with hematuria Take 1 tablet by mouth 2 (two) times daily for 10 days. 20 tablet 4 03/03/20 24 Active Problems Problem Noted Date Diagnosed Date Bilateral primary osteoarthritis of knee 024 Mild intermittent asthma without complication (H HS/HCC) 05/26/2023 Fibromyalgia 05/26/2023 Mixed hyperlipidemia 12/10/2020 Bicuspid aortic valve 08/28/2015 Overview (05/26/2023): Bicuspid aortic valve Last Assessment & Plan: Sp mechanical valve replacement Following with cardiology Continue warfarin per cardiology Chronic anticoagulation 08/28/2015 Overview (05/26/2023): group home current 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 Last Assessment & Plan: On warfarin 4mg daily Checking INR tomorrow H/O mechanical aortic valve replacement 08/28/19 16 Overview (05/26/2023): History of aortic valve replacement with metallic valve S/P 19 mm [place] mechanical AVR Dr. Guthrie 2008 for and bicuspid AV Last Assessment & Plan: Lab Results Component Value Date INR 3.10 08/27/2020 INR 3.10 (A) 08/27/2020 INR 2.9 (H) 08/09/2020 At goal, continue current warfarin dosing Follows with cardiology Resolved Problems Problem Noted Date Diagnosed Date Resolved Date History of total right knee replacement 08/24/2023 12/04/2023 Bilateral carpal tunnel syndrome 05/26/2023 05/26/2023 Bilateral sciatica 12/12/2019 4 Overview (05/26/2023): Last Assessment & Plan: Uncontrolled, symptoms worsening Reviewed EMG: within normal limits Reviewed MRI from 12/2019, mild-moderate central canal stenosis. Given symptoms worsening advise repeating MRI or referral to spine surgery, but she defers Continue cymbalta Eczema of hand 06/16/2012 12/04/2023 Keratosis, senilis 06/16/2012 4 Encounters Date Type Department Care Team Description 03/31/2024 MyChart Message Enc [facility] [address] [address] Sanket Waldron, DO Gastro referral 03/30/2024 8:20 AM JACK SPINNER Allied Health/Nurse Visit [facility] [address] [address] Sanket Waldron, DO Allied Health Visit 03/30/2024 Travel 03/29/2024 Care Management [facility] Internal [address] [address] Jordyn Herring, WIRE COINER 03/28/2024 MyChart Message Enc [facility] Internal [address] [address] Sanket Waldron, DO Referral for ENT 03/28/2024 MyChart Message Enc [facility] [address] [address] Sanket Waldron, DO ER visit 03/27/24 03/14/2024 Scan [facility] SRVCS Scanned, [facility] Lab (SCAN) 03/07/2024 Scan [facility] INFO SRVCS Scanned, [facility] Lab (SCAN) 02/29/2024 Scan [facility] INFO SRVCS Scanned, [facility] Lab (SCAN) 02/25/2024 Scan [facility] INFO SRVCS Scanned, [facility] Lab (SCAN) 02/22/2024 10:40 AM JACK SPINNER Office Visit [facility] Internal [address] [address] Phillip Curtis MD Hematuria (Patient c/o gross hematuria starting Thursday); Abdominal Pain (X2 days); Low Back Pain (Patient has had low back pain, but note this is not unusual for her) 02/22/[address] [address] Sanket Waldron, DO Information 02/22/2024 Travel 02/19/[address] [address] Sanket Waldron, DO Referral 02/16/2024 Scan [facility] INFO SRVCS Scanned, Doc [facility] 02/15/2024 MyChart Message Enc [address] [address] Sanket Waldron, DO Gabapentin 02/03/2024 2:00 PM CDT Office Visit [address] [address] Sanket Waldron, DO Medicare Wellness 02/03/2024 Scan [facility] INFO SRVCS Scanned, Doc [facility] 02/03/2024 Travel 02/01/2024 Scan [facility] INFO SRVCS Scanned, [facility] Lab (SCAN) 01/27/2024 Scan [facility] INFO SRVCS Scanned, Doc [facility] 01/22/[address] [address] Sanket Waldron, DO Referral 01/20/2024 MyChart Message Enc [facility] [address] [phone] Sanket Waldron, DO Dermatology referral & Overdue Medicare visit 01/18/2024 Telephone [facility] Internal [address] [phone] Sanket Waldron, DO Referral 01/18/2024 MyChart Message Enc [facility] [address] [phone] Sanket Waldron, DO Call from PT Provider 01/11/2024 Scan [facility] INFO SRVCS Scanned, [facility] Lab (SCAN) 01/08/2024 Scan [facility] INFO SRVCS Scanned, [facility] Procedure (SCAN) 01/08/2024 Telephone [facility] Internal [address] [phone] Sanket Waldron, DO Information from Last 3 Months Immunizations Name Administration Dates Next Due Arexvy Respiratory Syncytial Virus (RSV, adjuvanted) 0.5 mL, PF 06/02/2023 FLUAD (IIV, Trivalent, 0.5 M L Pre-filled Syringe) 02/03/2024 Fluzone High Dose - >Age 65 (Prefilled Syringe) 01/24/2023 Influenza (Generic) 01/15/2015,01/19/2013 Influenza Adult (Generic) 01/04/2022,03/2021,12/31/2019,2018,01/24/2018,01/28/2016 Pneumococcal (Prevnar 20) 01/24/2023 Shingrix 11/08/2018,08/26/2018 Td (TDVAX) 01/28/2016 Tdap (Generic) 11/17/2018,10/29/2012 Social History Tobacco Use Types Packs/Day Years Used Date Smoking Tobacco: Former Cigarettes Smokeless Tobacco: Never Tobacco Cessation:Counseling Given: Yes Comments:Smoked occasionally for 3 months in mid [...] on file Sexual Orientation Not on file Last Filed Vital Signs Vital Sign Reading Time Taken Comments Blood Pressure 128/70 02/22/2024 11:23 AM JACK SPINNER Pulse 71 02/22/2024 11:23 AM JACK SPINNER Temperature 36.5 ??C (97.7 ??F) 02/22/2024 11:[address] Respiratory Rate 16 02/22/2024 11:23 AM JACK SPINNER Oxygen Saturation 91% 02/22/2024 11:23 AM JACK SPINNER Inhaled Oxygen Concentration - - Weight 59.9 kg (132 lb 1.6 oz) 02/22/2024 11:23 AM JACK SPINNER Height 153.7 cm (5' 0.5 ) 02/22/2024 11:23 AM CS T Body Mass Index 25.37 02/22/2024 11:23 AM JACK SPINNER Plan of Treatment Upcoming Encounters Date Type Department Care Team (Late st Contact Info) Description 05/30/2024 7:20 AM JACK SPINNER Laboratory Only [facility] [address] [phone] Sanket Waldron DO [address] [place] [address] 06/06/2024 11:40 AM JACK SPINNER Office Visit [facility] Medicine [facility] [address] [place] [address] Sanket Waldron DO [address] [place] [address] Health Maintenance Due Date Last Done Comments COVID-19 Vaccine ( season) 2023 06/02/2023, 03/23/2021, 06/28/2020, Additional history exists Mammogram Screening 11/11/2024 11/12/2023, Annual Medicare Wellness Visit 02/03/2025 02/03/2024 Colorectal Cancer Screening FIT/FOBT (1 Year) 03/30/2025 03/30/2024 Dexa Scan (General) 11/11/2025 11/12/2023 DTaP, Tdap and Td Vaccines (4 - Td or Tdap) 11/17/2028 11/17/2018, 01/28/2016, 01/28/2016, Additional history exists Zoster Vaccines Completed 11/08/2018, 08/26/2018 Pneumococcal Vaccine: 65+ Years Completed 01/24/2023 Hepatitis C Completed 05/26/2023 RSV Immunization or 60+ Years Completed 06/02/2023 Influenza Adult Completed 02/03/2024, 01/11, 01/04/2022, Additional history exists Meningococcal Vaccine Aged Out No ed jus eligible based on patient's age to complete this topic RSV Immunizations Under 20 Months Aged Out No longer eligible based on patient's age to complete this topic Procedures Procedure Name Priority Date/Time Associated Diagnosis Comments CBC W/DIFF AUTOMATED Routine 03/30/2024 8:46 AM JACK SPINNER Black tarry stools OCCULT BLOOD, FECES Routine 03/30/2024 Black tarry stools OUTSIDE PT/INR (SCAN ORDER) 03/14/2024 OUTSIDE PT/INR (SCAN ORDER) 03/07/2024 OUTSIDE PT/INR (SCAN ORDER) 02/29/2024 OUTSIDE PT/INR (SCAN ORDER) 02/25/2024 CBC W/DIFF AUTOMATED Routine 02/22/2024 11:59 AM JACK SPINNER Gross hematuria PROTHROMBIN TIME, VENOUS Routine 02/22/2024 11:59 AM JACK SPINNER Gross hematuria Elevated INR VENIPUNC ARM DRAW Routine 02/22/2024 11: 57 AM JACK SPINNER Gross hematuria Elevated INR URINALYSIS MICRO ONLY Routine 02/22/2024 11:13 AM JACK SPINNER Gross hematuria URINE BACTERIA CULTURE Routine 02/22/2024 11:08 AM JACK SPINNER Gross hematuria PROTHROMBIN TIME, FINGERSTICK Routine 02/22/2024 Gross hematuria URINALYSIS AUTO DIP Routine 02/22/2024 Gross hematuria OUTSIDE PT/INR (SCAN ORDER) 02/01/2024 OUTSIDE PT/INR (SCAN ORDER) 01/11/2024 PROCEDURE GENERIC (SCAN ORDER) 01/08/2024 BONE DENSITY GENERIC (SCAN ORDER) 11/12/2023 MAMMOGRAM GENERIC (SCAN ORDER) 11/12/2023 HEPATITIS C ANTIBODY Routine 05/26/2023 12:01 PM JACK SPINNER Mild intermittent asthma without complication (HHS/HCC) Screening for endocrine, metabolic and immunity disorder Annual physical exam Need for hepatitis C screening test from Last 3 Months or Most Recently Relevant to Health Maintenance Results * CBC W/DIFF AUTOMATED (03/30/2024 8:46 AM JACK SPINNER) Only the most recent of2 resultswithin the time period is included. WBC 6.0 3.4 - 10.8 x10E3/uL [facility] RBC 4.09 3.77 - 5.28 x10E6/uL [facility] HGB 13.0 11.1 - 15.9 g/dL [facility] 1 HCT 38.8 34.0 - 46.6 % [facility] 1 MCV 95 79 - 97 fL [facility] 1 MCH 31.8 26.6 - 33.0 pg [facility] 1 MCHC 33.5 31.5 - 35.7 g/dL [facility] 1 RDW 12.2 11.7 - 15.4 % [facility] 1 PLATELET COUNT 216 150 - 450 x10E3/uL [facility] 1 NEUTROPHILS % 65 Not Estab. % [facility] 1 LYMPHOCYTES % 17 Not Estab. % [facility] 1 MONOCYTES % 12 Not Estab. % [facility] 1 EOSINOPHILS % 5 Not Estab. % [facility] 1 BASOPHILS % 1 Not Estab. % [facility] 1 ABS. NEUTROPHILS 3.9 1.4 - 7.0 x10E3/uL [facility] 1 ABS. LYMPHOCYTES 1.0 0.7 - 3.1 x10E3/uL [facility] 1 MONOCYTES 0.7 0.1 - 0.9 x10E3/uL [facility] 1 ABS. EOSINOPHILS 0.3 0.0 - 0.4 x10E3/uL [facility] 1 ABS. BASOPHILS 0.1 0.0 - 0.2 x10E3/uL [facility] 1 ABS. IMMATURE GRANULOCYTES 0 Not Estab. % [facility] 1 ABS. IMMATURE GRANULOCYTES 0.0 0.0 - 0.1 x10E3/uL [facility] 1 03/30/2024 8:46 AM JACK SPINNER 03/30/2024 Narrative [facility] - 03/31/2024 3:07 AM JACK SPINNER Performed at: ??01 - [facility] [address] ??[id number] Medical Device Sales Representative: Patricio Viera PhD, Phone: ??[phone] Sanket Waldron DO LABORATORY Final Re sult Performing Organization Address [facility] Co de Phone Number [facility] [address] [place] [address] [facility] 1 * (ABNORMAL) OCCULT BLOOD, FECES (03/30/2024) OCCULT BLOOD FECAL POSITIVE(A ) NEGATIVE [facility] COLLECTION DATE 03/30/24 [facility] STOOL SPECIMEN / Unknown 03/30/2024 Sanket Waldron DO BODY FLUIDS AND STOOLS O RDERABLES Final Result Performing Organization Address [facility] Co de Phone Number [facility] [address] [place] [address], [place] * OUTSIDE PT/INR (SCAN ORDER) (03/14/2024) Only the most recent of6 resultswithin the time period is included. 03/14/2024 us [facility] Scanned SCANNING Final Resu lt * (ABNORMAL) PROTIME/INR, VENOUS (02/22/2024 11:59 AM JACK SPINNER) PROTIME 37.9(H) 9.3 - 11.6 SEC 02/22/2024 3:10 PM JACK SPINNER [facility] INR 4.0(H) 0.9 - 1.1 02/22/2024 3:10 PM JACK SPINNER [facility] Comment: TREATMENT OR PROPHYLAXIS AGAINST: ?? THERAPEUTIC RANGE (INR): ?VENOUS THROMBOSIS ? 2.0-3.0 ?PULMONARY EMBOLUS ? 2.0-3.0 ?? MECHANICAL PROSTHETIC VALVES ? 2.5-3.5 02/22/2024 11:5 9 AM JACK SPINNER Phillip Curtis MD LABORATORY Final Result -[facility] [address] [place] [address], * (ABNORMAL) URINALYSIS MICRO ONLY (02/22/2024 11:13 AM JACK SPINNER) RBC/HPF PACKED(A) 0 - 3 /HPF 02/22/2024 3:06 PM JACK SPINNER [facility] WBC/HPF 0-3 0 - 3 /HPF 02/22/2024 3:06 PM JACK SPINNER [facility] EPI/HPF 0-3 /HPF 02/22/2024 3:06 PM JACK SPINNER [facility] BACTERIA (U) TRACE(A) NONE SEEN 02/22/2024 3:06 PM JACK SPINNER [facility] URINE SPECIMEN OBTAINED BY CLEAN CATCH PROCEDURE / Unknown 02/22/2024 11:13 AM JACK SPINNER Phillip Curtis MD URINE ORDERABLES Final Result [facility] [address] [facility] [address], * URINE BACTERIA CULTURE (02/22/2024 11:08 AM JACK SPINNER) CULTURE RESULT [employer] Comment: ??CULTURE, URINE, ROUTINE ?Micro Number: ?[id number] ??Test Status: ? Final ??Specimen Source: ?? Urine ??Specimen Quality: ??Adequate ??Result: ?Mixed genital perla isolated. These superficial ? bacteria are not indicative of a urinary tract ? infection. No further organism identification is ? warranted on this specimen. If clinically ? indicated, recollect clean-catch, mid-stream ? urine and transfer immediately to Urine Culture ? Transport Tube. URINE SPECIMEN OBTAINED BY CLEAN CATCH PROCEDURE / Unknown 02/22/2024 11:08 AM JACK SPINNER 02/23/2024 1:04 AM JACK SPINNER Narrative Resulting Agency Comment Performing Organization Information: ?Site ID: [id number] ?Name: [facility] ?Address: [address] [place] [address] ?Director: Adilson Hameed us Phillip Curtis MD MICROBIOLOGY - GENERAL ORDERAB LES Final Result [facility]-[address] [address], [place] * PROTIME/INR, FINGERSTICK (02/22/2024) INR WHOLE BLOOD 4.50 MG[facility] Comment:Venous drawn 02/22/2024 us Phillip Curtis MD LABORATORY Final Result [facility] [address] [place] [address], [place] * (ABNORMAL) URINALYSIS AUTO DIP (02/22/2024) COLOR (U) RED(A) YELLOW [facility] TRANSPARENCY TURBID(A) CLEAR [facility] GLUCOSE (U) NEGATIVE NEGATIVE MG/DL [facility] BILIRUBIN (U) NEGATIVE NEGATIVE [facility] KETONES MG/DL (U) NEGATIVE NEGATIVE MG/DL [facility] SPECIFIC GRAVITY (U) 1.020 1.001 - 1.035 [facility] BLOOD (U) LARGE (Non Hemolyzed, Intact, About 250 rbc/uL)(A) NEGATIVE [facility] U PH 7.0 5.0 - 9.0 [facility] PROTEIN (U) 2+ (100)(A) NEGATIVE mg/dL [facility] UROBILINOGEN 0.2 0.2 - 1.0 EU/dL = mg/dL [facility] NITRITES NEGATIVE NEGATIVE MG/DL [facility] LEUKOCYTES (U) TRACE(A) NEGATIVE MG[facility]SO [facility] URINE SPECIMEN OBTAINED BY CLEAN CATCH PROCEDURE / Unknown 02/22/2024 us Phillip Curtis MD URINE ORDERABLES Final Result -[place] [id number] [place] [address], [place] * PROCEDURE GENERIC (SCAN ORDER) (01/08/2024) 01/08/2024 us [facility] Scanned SCANNING Final Resu lt * BONE DENSITY GENERIC (SCAN ORDER) (11/12/2023) Anatomical Region Laterality Modality Other 11/12/2023 us [facility] Scanned SCANNING Final Resu lt * MAMMOGRAM GENERIC (SCAN ORDER) (11/12/2023) Anatomical Region Laterality Modality Other 11/12/2023 us [facility] Scanned SCANNING Final Resu lt * HEPATITIS C ANTIBODY (05/26/2023 12:01 PM JACK SPINNER) HEPATITIS C AB NON-REACTI VE NON-REACT WAGNER 05/26/2023 10:23 PM JACK SPINNER [facility] Comment: ANTIBODIES TO HCV NOT DETECTED. DOES NOT EXCLUDE THE POSSIBILITY OF EXPOSURE TO HCV. 05/26/2023 12:0 1 PM JACK SPINNER Sanket Waldron DO LABORATORY Final Re sult [facility] [address] [place] [address], [id number] from Last 3 Months or Most Recently Relevant to Health Maintenance Insurance [employer] Care Teams Turntable Engineer Relationship Specialty Start Date End Date Sanket Waldron DO [address] [place] [address] PCP - General FAMILY PRACTICE 05/26/23
--- OUTSIDE RECORDS SUMMARY | 2024-04-01 07:31 | XMS_ITS | Encounter Summary ---
Author Organization [facility] Address [address] [place] [address]. [place] [address] [place] [address] Care Team Providers Care Percher Name Role Phone Sanket Waldron DO Primary Care Provider + Reason for Visit * Reason Comments Lab (SCAN) Encounter Details Date Type Department Care Team (Latest Contact Info) Description 12/31/2023 Scan HEALTH INFO SRVCS Scanned, Doc [facility] Lab (SCAN) Social History Tobacco Use Types Packs/Day Years Used Date Smoking Tobacco: Former Cigarettes Smokeless Tobacco: Never Comments:Smoked occasionally for 3 months in mid 70's Alcohol Use Standard Drinks/Week Comments Not Currently 0 (1 standard drink = 0.6 oz pur e alcohol) Occasional wine or daiquiri PHQ-2 Answer Date Recorded Patient Health Questionnaire-2 Score 2 05/26/2023 Comments No Sex and Gender Information Value Date Recorded Sex Assigned at Not on file Legal Sex Female 7:25 PM CDT Gender Identity Not on file Sexual Orientation Not on file documented as of this encounter Plan of Treatment Upcoming Encounters Date Type Department Care Team (Late st Contact Info) Description 05/30/2024 7:20 AM ACID CRANE OPERATOR Laboratory Only [facility] Family & Internal Medicine [place] [address] [place] [address] Sanket Waldron DO [address] [place] [address] 06/06/2024 11:40 AM ACID CRANE OPERATOR Office Visit [facility] Family & Internal Medicine [address] [address] Sanket Waldron DO [address] [place] [address] documented as of this encounter Procedures Procedure Name Priority Date/Time Associated Diagnosis Comments OUTSIDE PT/INR (SCAN ORDER) 12/31/2023 documented in this encounter Results * OUTSIDE PT/INR (SCAN ORDER) (12/31/2023) 12/31/2023 us [facility] Scanned SCANNING Final Resu lt documented in this encounter Visit Diagnoses Not on filedocumented in this encounter Care Teams Percher Relationship Specialty Start Date End Date Sanket Waldron DO [address] [place] [address] PCP - General FAMILY PRACTICE 05/26/23 documented as of this encounter
--- OUTSIDE RECORDS SUMMARY | 2024-04-01 07:31 | XMS_ITS | Encounter Summary ---
Author Organization [facility] Address [address] [place] [address]. [place], [place] [address] [place] [address] Care Team Providers Care Carpenter Helper Maintenance Name Role Phone Sanket Waldron DO Primary Care Provider + Encounter Details Date Type Department Care Team (Latest Contact Info) Description 02/16/2024 Scan HEALTH INFO SRVCS Scanned, Doc Med [...] st Contact Info) Description 05/30/2024 7:20 AM VACUUM CASTER Laboratory Only [facility] Family & Internal Medicine [address] [phone] Sanket Waldron DO [address] [place] [address] 06/06/2024 11:40 AM VACUUM CASTER Office Visit [facility] Family & Internal Medicine - [place] [address] [place] [address] Sanket Waldron DO [address] [place] [address] documented as of this encounter Visit Diagnoses Not on filedocumented in this encounter Additional Health Concerns Assessment Noted Time PHQ-9 Depression Total Score: 0 02/03/20 24 2:27 PM CDT documented as of this encounter Care Teams Carpenter Helper Maintenance Relationship Specialty Start Date End Date Sanket Waldron DO [address] [place] [address] PCP - General FAMILY PRACTICE 05/26/23 documented as of this encounter
--- OUTSIDE RECORDS SUMMARY | 2024-04-01 07:31 | XMS_ITS | Encounter Summary ---
Author Organization [facility] Address [address] [place] [address]. [place] [address] [place] [address] Care Team Providers Care Body Designer Name Role Phone Peterson Colindres DO Primary Care Provider + Reason for Visit * Reason Onset Date Comments Referral 01/18/2024 Encounter Details Date Type Department Care Team (Late st Contact Info) Description 01/18/2024 Telephone [facility] Family & Internal Medicine [facility] [address] [place] [address] Peterson Colindres DO [address] [place] [address] Referral Social History Tobacco Use Types Packs/Day Years [...] on file documented as of this encounter Progress Notes * Veronica Harmon MA - 03/08/2024 11:31 AM CSTAddended by: VERONICA HARMON on: 03/08/2024 11:31 AM Modules accepted: Orders LING ATTENDANT * Veronica Harmon MA - 01/18/2024 4:59 PM CDTAddended by: VERONICA HARMON on: 01/18/2024 04:59 PM Modules accepted: Orders * Veronica Harmon MA - 01/18/2024 4:59 PM CDT Referral placed. * Marilin Teixeira - 01/18/2024 3:55 PM CDT The patient called for a referral to the following physician: Is this a new consult:Yes. 's name: [facility] Specialty: Dermatology Reason for referral (diagnosis): Basal cell carcinoma Appointment: 01/27/24 Last office visit at this office: Last visit with PETERSON COLINDRES in FAMILY PRACTICE was on: 12/04/2023 in [facility] Future appointment scheduled: Future Appointments Date Time Provider Department Center 05/30/2024 7:20 AM [id number] 06/06/2024 11:40 AM Peterson Colindres DO [id number] documented in this encounter Plan of Treatment Upcoming Encounters Date Type Department Care Team (Late st Contact Info) Description 05/30/2024 7:20 AM BOTTLING ATTENDANT Laboratory Only [facility] Family & Internal Medicine - [place] [address] [place] [address] Peterson Colindres DO [address] [place] [address] 06/06/2024 11:40 AM BOTTLING ATTENDANT Office Visit [facility] Family & Internal Medicine - [address] [address] Peterson Colindres DO [address] [place] [address] documented as of this encounter Visit Diagnoses Diagnosis Basal cell carcinoma- Primary Basal cell carcinoma of skin, site unspecified documented in this encounter Care Teams Body Designer Relationship Specialty Start Date End Date Peterson Colindres DO [address] [place] [address] PCP - General FAMILY PRACTICE 05/26/23 documented as of this encounter
--- OUTSIDE RECORDS SUMMARY | 2024-04-01 07:31 | XMS_ITS | Encounter Summary ---
Author Organization [facility] Address [address] [place] [address]. [place], [place] [address] [place] [address] Care Team Providers Care Civil Preparedness Officer Name Role Phone Sanket Waldron DO Primary Care Provider + Reason for Referral * Physical Medicine (Routine) - Authorized Specialty Diagnoses / Procedures Referred By Contac t Referred To Contact PHYSICAL THERAPY Diagnoses Presence of right artificial knee joint Muscle weakness (generalized) Limitation of joint motion of knee, right Procedures OFFICE/OUTPATIENT NEW LOW MDM 30-44 MINUTES OFFICE/OUTPT VISIT,NEW,LEVL IV OFFICE/OUTPT VISIT,NEW,LEVL V OFFICE/OUTPT VISIT,EST,LEVL III OFFICE/OUTPT VISIT,EST,LEVL IV OFFICE/OUTPT VISIT,EST,LEVL V Sanket Waldron DO [address] [place] [address] Phone: tel: fax: [facility] [address] Phone: tel: fax: Referral ID Status Reason Start Date Expiration Date Visits Requested Visits Authorized [id number] Authorized Physical Therapy 06/29/2023 04/12/2024 56 56 Scheduling Instructions [facility] needing DX code added to current referral.. R knee surgery. Also needing 24 additional visits. Pt has apt scheduled 09/23/23 afternoon Z96.651 most important M62.81 M25.661 Reason for Visit * Reason Onset Date Comments Referral 09/23/2023 Encounter Details Date Type Department Care Team (Late st Contact Info) Description 09/23/2023 Telephone [facility] Family & Internal Medicine [facility] [address] [place] [address] Sanket Waldron DO [address] [place] [address] Referral Social History Tobacco Use Types Packs/Day [...] as of this encounter Progress Notes * Huma Hawkins RN - 09/24/2023 2:17 PM CDT Verified with them that the referral was placed. Just needing the approval number of the additionalvisits. Will reach out to referrals team. LL-09/24/23 * Marilin Teixeira - 09/24/2023 1:36 PM CDT [facility] calling back regarding pt. Asking for call back. * Veronica Harmon MA - 09/23/2023 9:15 AM CDTAddended by: VERONICA HARMON on: 09/23/2023 09:15 AM Modules accepted: Orders * Veronica Harmon MA - 09/23/2023 9:14 AM CDT Referral sent. Order was sent by ortho for specifics. * Veronica Harmon MA - 09/23/2023 9:12 AM CDT The patient has essence. Referral sent since patient has been seeing PT for the knee already. * Marilin Teixeira - 09/23/2023 8:31 AM CDT [facility] needing DX code added to current referral.. R knee surgery. Also needing 24 additional visits. Pt has apt scheduled 09/23/23 afternoon Z96.651 most important M62.81 M25.661 documented in this encounter Plan of Treatment Upcoming Encounters Date Type Department Care Team (Late st Contact Info) Description 05/30/2024 7:20 AM ELECTRICAL CONTROLS TECHNICIAN Laboratory Only [facility] [place] [address] [place] [address] Sanket Waldron DO [address] [place] [address] 06/06/2024 11:40 AM ELECTRICAL CONTROLS TECHNICIAN Office Visit [facility] Internal [place] [address] [place] [phone] Sanket Waldron DO [address] [place] [address] Scheduled Referrals Name Type Priority Associated Diagnoses Orde r Schedule Ambulatory referral to Physical Therapy Referral Routine Presence of right artificial knee joint Muscle weakness (generalized) Limitation of joint motion of knee, right Ordered: 09/23/2023 documented as of this encounter Visit Diagnoses Diagnosis Presence of right artificial knee joint- Primary Knee joint replacement by other means Muscle weakness (generalized) Limitation of joint motion of knee, right documented in this encounter Care Teams Civil Preparedness Officer Relationship Specialty Start Date End Date Sanket Waldron DO [address] [place] [address] PCP - General FAMILY PRACTICE 05/26/23 documented as of this encounter
--- OUTSIDE RECORDS SUMMARY | 2024-04-01 07:31 | XMS_ITS | Encounter Summary ---
Author Organization [facility] Address [address] [place] [address]. [place], [place] [address] [place] [address] Care Team Providers Care Forest Management Professor Name Role Phone Sanket Waldron DO Primary Care Provider + Encounter Details Date Type Department Care Team (Latest Contact Info) Description 08/25/2023 Scan [facility] INFO SRVCS Scanned, Doc [...] st Contact Info) Description 05/30/2024 7:20 AM SUPERINTENDENT SERVICE Laboratory Only [facility] Family & Internal Medicine [facility] [address] [place] [address] Sanket Waldron DO [address] [place] [address] 06/06/2024 11:40 AM SUPERINTENDENT SERVICE Office Visit [facility] Family & Internal Medicine [facility] [address] [place] [address] Sanket Waldron DO [address] [place] [address] documented as of this encounter Visit Diagnoses Not on filedocumented in this encounter Care Teams Forest Management Professor Relationship Specialty Start Date End Date Sanket Waldron DO [address] [place] [address] PCP - General FAMILY PRACTICE 05/26/23 documented as of this encounter
--- OUTSIDE RECORDS SUMMARY | 2024-04-01 07:31 | XMS_ITS | Encounter Summary ---
Author Organization [facility] Address [address] [place] [address]. [place] [address] [place] [address] Care Team Providers Care Pool Table Mechanic Name Role Phone Sanket Waldron DO Primary Care Provider + Reason for Visit * Reason Onset Date Comments Reschedule 11/10/2023 Encounter Details Date Type Department Care Team ([facility] Contact Info) Description 11/10/2023 Telephone [facility] Family & Internal [address] [address] Sanket Waldron DO [address] [place] [address] [phone] Reschedule Social History Tobacco Use Types Packs/Day Years [...] Upcoming Encounters Date Type Department Care Team ([facility] Contact Info) Description 05/30/2024 7:20 AM MEDICAL FRONT DESK COORDINATOR Laboratory Only [facility] Internal [address] [phone] Sanket Waldron DO [address] [place] [address] 06/06/2024 11:40 AM MEDICAL FRONT DESK COORDINATOR Office Visit [facility] Medical Group Family & Internal Medicine - [place] [address] [place] [address] Sanket Waldron DO [address] [place] [address] documented as of this encounter Visit Diagnoses Not on filedocumented in this encounter Care Teams Pool Table Mechanic Relationship Specialty Start Date End Date Sanket Waldron DO [address] [place] [address] PCP - General FAMILY PRACTICE 05/26/23 documented as of this encounter
--- OUTSIDE RECORDS SUMMARY | 2024-04-01 07:31 | XMS_ITS | Encounter Summary ---
Author Organization [facility] Address [address] [place] [address]. [place] [address] [place] [address] Care Team Providers Care Life Science Technical Officer Name Role Phone Sanket Waldron DO Primary Care Provider + Encounter Details Date Type Department Care Team (Latest Contact Info) Description 08/04/2023 Travel Social History Tobacco Use Types Packs/Day Years [...] st Contact Info) Description 05/30/2024 7:20 AM BLAST FURNACE OPERATOR Laboratory Only [facility] Family & Internal Medicine [facility] [address] [place] [address] Sanket Waldron DO [address] [place] [address] 06/06/2024 11:40 AM BLAST FURNACE OPERATOR Office Visit [facility] Family & Internal [facility] [address] [place] [address] Sanket Waldron DO [address] [place] [address] documented as of this encounter Visit Diagnoses Not on filedocumented in this encounter Care Teams Life Science Technical Officer Relationship Specialty Start Date End Date Sanket Waldron DO [address] [place] [address] PCP - General FAMILY PRACTICE 05/26/23 documented as of this encounter
--- OUTSIDE RECORDS SUMMARY | 2024-04-01 07:31 | XMS_ITS | Encounter Summary ---
Author Organization [facility] Address [address] [place] [address]. [place], [place] [address] [place] [address] Care Team Providers Care Vp Medical Name Role Phone Sanket Waldron DO Primary Care Provider + Encounter Details Date Type Department Care Team (Latest Contact Info) Description 12/01/2023 Scan [facility] INFO SRVCS Scanned, Doc [...] st Contact Info) Description 05/30/2024 7:20 AM LEADERSHIP DEVELOPMENT INSTRUCTOR Laboratory Only [facility] Family & Internal Medicine [facility] [address] [place] [address] Sanket Waldron DO [address] [place] [address] 06/06/2024 11:40 AM LEADERSHIP DEVELOPMENT INSTRUCTOR Office Visit [facility] Family & Internal Medicine [facility] [address] [place] [address] Sanket Waldron DO [address] [place] [address] documented as of this encounter Visit Diagnoses Not on filedocumented in this encounter Care Teams Vp Medical Relationship Specialty Start Date End Date Sanket Waldron DO [address] [place] [address] PCP - General FAMILY PRACTICE 05/26/23 documented as of this encounter
--- OUTSIDE RECORDS SUMMARY | 2024-04-01 07:31 | XMS_ITS | Encounter Summary ---
Author Organization [facility] Address [address] [place] [address]. [place], [place] [phone] [place] [address] Care Team Providers Care Inside Sales Account Manager Name Role Phone Sanket Waldron DO Primary Care Provider + Reason for Visit * Reason Onset Date Comments Question 09/21/2023 Encounter Details Date Type Department Care Team (Late st Contact Info) Description 09/21/2023 Telephone [facility] Medical [facility] Family & Internal Medicine [facility] [address] [place] [phone] Sanket Waldron DO [address] [place] [address] Question Social History Tobacco Use Types Packs/Day Years [...] as of this encounter Progress Notes * Sanket Waldron DO - 09/22/2023 11:47 AM CDT Yes that's fine. * Veronica Dick MA - 09/22/2023 10:17 AM CDT Spoke with yesenia at ortho office. The patient is scheduled for 09/24/2023. The patient will be provided with PT orders that day. The orders can be sent to [facility] by their office. Ok to send a request to extend PT visits for current neck therapy? * Veronica Dick MA - 09/21/2023 4:40 PM CDT Office number [phone]. Office is currently closed. Will attempt to call on 09/22/2023. * Sanket Waldron DO - 09/21/2023 4:32 PM CDT Typically speaking orthopedics likes to order PT as they have specific protocols they like following surgery. I don't necessarily have an issue with ordering it, but I wouldn't want to cause any issues with her post-op care. Please reach out to Dr. Camejo's office to ensure they haven't already ordered PT for this patient to Dr. Camejo's specifications. * Joelle Pitt MA - 09/21/2023 1:48 PM CDT 09-21-23: Received call from Tenisha at [facility]. Patient has been having therapy for her back but recently had Rt total knee surgery by Dr. Adrien Camejo. Is needing the referral extended for additional visits and to add knee if possible./la,rma documented in this encounter Plan of Treatment Upcoming Encounters Date Type Department Care Team (Late st Contact Info) Description 05/30/2024 7:20 AM LUNCHROOM WORKER Laboratory Only [facility] Family & Internal Medicine [facility] [address] [place] [address] Sanket Waldron DO [address] [place] [address] 06/06/2024 11:40 AM LUNCHROOM WORKER Office Visit [facility] Family & Internal [facility] [address] [place] [address] Sanket Waldron DO [address] [place] [address] documented as of this encounter Visit Diagnoses Not on filedocumented in this encounter Care Teams Inside Sales Account Manager Relationship Specialty Start Date End Date Sanket Waldron DO [address] [place] [address] PCP - General FAMILY PRACTICE 05/26/23 documented as of this encounter
--- OUTSIDE RECORDS SUMMARY | 2024-04-01 07:31 | XMS_ITS | Encounter Summary ---
Author Organization [facility] Address [address] [place] [address]. [place] [address] [place] [address] Care Team Providers Care Integrity Specialist Name Role Phone Sanket Waldron DO Primary Care Provider + Reason for Referral * Consultation (Urgent) - New Request Specialty Diagnoses / Procedures Referred By Contac t Referred To Contact GASTROENTEROLOGY Diagnoses Black tarry stools Sanket Waldron DO [address] [place] [address] Phone: tel: fax: [facility] - [address], [address] [place] [phone] Phone: tel: fax: Referral ID Status Reason Start Date Expiration Date V isits Requested Visits Authorized [id number] New Request 03/29/2024 04/30/2025 1 1 PHONE INSTALLER Encounter Details Date Type Department Care Team (Late st Contact Info) Description 03/28/2024 MyChart Message Enc [facility] Family & Internal Medicine [facility] [address] [place] [phone] Sanket Waldron DO [address] [place], [place] [phone] ER visit 03/27/24 Social History Tobacco Use Types Packs/Day Years [...] Progress Notes * Huma Hawkins RN - 03/29/2024 2:02 PM CST Called and spoke with patient. She was seen in the ED for epistaxis on Thursday at [place]. Patient is currently on Warfarin. Her INR was 2.6 at the ED. Patient has a rhino rocket device placed and has a follow up with the ENT on 04/01/24. Patient also reported that she has black tarry stools since going to ED. PCP gave verbal order for CBC, hemoccult stool sample, and GI referral stat. Patient came up to the office this morning and dropped off hemoccult test. The test did come back positive. Patient notified and will go get her labs done this morning and notify her financial health counselor. Opportunitygiven for all questions to be answered, no further needs voiced at this time. LL-03/30/24 PHONE INSTALLER PHONE INSTALLER * Sanket Waldron DO - 03/28/2024 2:04 PM CST Please triage. Pt is on warfarin on last discussion. PHONE INSTALLER documented in this encounter Plan of Treatment Upcoming Encounters Date Type Department Care Team (Late st Contact Info) Description 05/30/2024 7:20 AM TELEPHONE INSTALLER Laboratory Only [facility] Family & Internal [address] [address] Sanket Waldron DO [address] [place] [address] 06/06/2024 11:40 AM TELEPHONE INSTALLER Office Visit [facility] Internal [address] [phone] Sanket Waldron DO [address] [place] [address] Scheduled Referrals Name Type Priority Associated Diagnoses Orde r Schedule Ambulatory referral to Gastroenterology ( [place]) Referral Routine Black tarry stools Ordered: 03/29/2024 documented as of this encounter Procedures Procedure Name Priority Date/Time Associated Diagnosis Comments CBC W/DIFF AUTOMATED Routine 03/30/2024 8:46 AM TELEPHONE INSTALLER Black tarry stools documented in this encounter Results * CBC W/DIFF AUTOMATED (03/30/2024 8:46 AM TELEPHONE INSTALLER) WBC 6.0 3.4 - 10.8 x10E3/uL [facility] [...] 0.1 x10E3/uL [facility] 1 03/30/2024 8:46 AM TELEPHONE INSTALLER 03/30/2024 Narrative [facility] - 03/31/2024 3:07 AM TELEPHONE INSTALLER Performed at: ??01 - [facility] [address] ??[id number] Maintenance Superintendent: Patricio Viera PhD, Phone: ??[phone] us Sanket Waldron DO LABORATORY Final Re sult [facility] [address] [place] [address] [facility] 1 documented in this encounter Visit Diagnoses Diagnosis Black tarry stools- Primary Blood in stool documented in this encounter Additional Health Concerns Assessment Noted Time PHQ-9 Depression Total Score: 0 02/03/20 24 2:27 PM CDT documented as of this encounter Care Teams Integrity Specialist Relationship Specialty Start Date End Date Sanket Waldron DO [address] [place] [address] PCP - General FAMILY PRACTICE 05/26/23 documented as of this encounter
--- OUTSIDE RECORDS SUMMARY | 2024-04-01 07:31 | XMS_ITS | Encounter Summary ---
Author Organization [facility] Address [address] [place] [address]. [place], [place] [address] [place] [address] Care Team Providers Care Sulfonation Equipment Operator Name Role Phone Sanket Waldron DO Primary Care Provider + Reason for Visit * Reason Comments Hematuria Patient c/o gross he maturia starting Thursday Abdominal Pain X2 days Low Back Pain Patient has had low back pain, but note this is not unusual for her Encounter Details Date Type Department Care Team (Late st Contact Info) Description 02/22/2024 10:40 AM CUPOLA OPERATOR Office Visit [facility] Family & Internal Medicine [address] [address] Phillip Curtis MD [address] [place] [address] [phone] Hematuria (Patient c/o gross hematuria starting Thursday); Abdominal Pain (X2 days); Low Back Pain (Patient has had low back pain, but note this is not unusual for her) Social History Tobacco Use Types Packs/Day Years [...] on file documented as of this encounter Last Filed Vital Signs Vital Sign Reading Time Taken Comments Blood Pressure 128/70 02/22/2024 11:23 AM CUPOLA OPERATOR Pulse 71 02/22/2024 11:23 AM CUPOLA OPERATOR Temperature 36.5 ??C (97.7 ??F) 02/22/2024 11:[address] Respiratory Rate 16 02/22/2024 11:23 AM CUPOLA OPERATOR Oxygen Saturation 91% 02/22/2024 11:23 AM CUPOLA OPERATOR Inhaled Oxygen Concentration - - Weight 59.9 kg (132 lb 1.6 oz) 02/22/2024 11:23 AM CUPOLA OPERATOR Height 153.7 cm (5' 0.5 ) 02/22/2024 11:23 AM CS T Body Mass Index 25.37 02/22/2024 11:23 AM CUPOLA OPERATOR documented in this encounter Progress Notes * Phillip Curtis MD - 02/22/2024 10:40 AM CST Images from the original note were not included. Office Progress Note Reason for Visit: Hematuria (Patient c/o gross hematuria starting Thursday), Abdominal Pain (X2 days), and Low Back Pain (Patient has had low back pain, but note this is not unusual for her) History of Present Illness: She states that she began seeing blood in her urine on Thursday which was very light and on Thursday she began to have more blood in her urine. She has had some lower abdominal pain and possibly some lower back pain (but she has chronic lower back pain). She denies fever or chills. She continues to have bright red blood in her urine. No bruising or nosebleeds noted. She denies nausea or vomiting. ROS: Review of Systems All other systems reviewed and are negative. Medications: Current Outpatient Medications on File Prior to Visit Medication Sig albuterol sulfate HFA 108 (90 Base) MCG/ACT inhaler Inhale 2 puffs into the lungs every 6 (six) hours as needed. Ascorbic Acid (VITAMIN C) 250 MG Chew Tab aspirin EC (ECOTRIN) 81 MG tablet Take 1 tablet (81 mg total) by mouth daily. atorvastatin (LIPITOR) 20 MG tablet Take 1 tablet (20 mg total) by mouth daily. calcium carb-cholecalciferol (CALTRATE+D) 600-10 MG-MCG Tab tablet Take 1 tablet by mouth daily. Cyanocobalamin (B-12) 1000 MCG Tab gabapentin (NEURONTIN) 600 MG tablet Take 1 tablet (600 mg total) by mouth 2 (two) times daily for 7 days, THEN 1 tablet (600 mg total) daily for 7 days. hypromellose (ISOPTO TEARS) 0.5 % ophthalmic solution Apply 1 drop to eye. latanoprost (XALATAN) 0.005 % ophthalmic solution INSTILL 1 DROP INTO RIGHT EYE AT BEDTIME Magnesium Oxide 400 MG Cap Take 1 tablet by mouth daily. Saline (OCEAN NASAL SPRAY NA) warfarin (COUMADIN) 2 MG tablet Take 2 tablets (4 mg total) by mouth daily. gabapentin (NEURONTIN) 100 MG capsule Take 1 capsule (100 mg total) by mouth daily for 7 days. (Patient not taking: Reported on 02/22/2024) gabapentin (NEURONTIN) 300 MG capsule Take 1 capsule (300 mg total) by mouth daily for 7 days. (Patient not taking: Reported on 02/22/2024) No current facility-administered medications on file prior to visit. Allergies: Allergies Allergen Reactions Pregabalin Rash and Unknown Methylprednisolone Joint Pain and Leg Pain Molnupiravir Rash Medical History: Past Medical History: Diagnosis Date Arthritis 1986 Asthma ([facility]) 196 Bilateral carpal tunnel syndrome 05/26/2023 Bilateral sciatica 12/12/2019 Last Assessment & Plan: Uncontrolled, symptoms worsening Reviewed EMG: within normal limits Reviewed MRI from 12/2019, mild-moderate central canal stenosis. Given symptoms worsening advise repeating MRI or referral to spine surgery, but she defers Continue cymbalta Cataract 2019 or 2020 Eczema of hand 06/16/2012 GERD (gastroesophageal reflux disease) Glaucoma 2020 History of total right knee replacement 08/24/2023 TMJ (temporomandibular joint syndrome) Surgical History: Past Surgical History: Procedure Laterality Date CARDIAC VALVE REPLACEMENT 11/06/2008 JOINT REPLACEMENT Great Toe Implant in TOTAL KNEE ARTHROPLASTY Right 08/24/2023 Social History: Social History Socioeconomic History Marital status: Spouse name: Vipul Number of children: 2 Tobacco Use Smoking status: Former Current packs/day: 0.00 Types: Cigarettes Smokeless tobacco: Never Tobacco comments: Smoked occasionally for 3 months in mid 70s Vaping Use Vaping status: Never Used Substance and Sexual Activity Alcohol use: Not Currently Comment: Occasional wine or daiquiri Drug use: Never Sexual activity: Not Currently control/protection: Post-menopausal Family History: No family history on file. PE: Physical Exam Vitals and nursing note reviewed. Constitutional: General: She is awake. Appearance: Normal appearance. Cardiovascular: Rate and Rhythm: Normal rate and regular rhythm. Heart sounds: Normal heart sounds. Pulmonary: Effort: Pulmonary effort is normal. Abdominal: General: Abdomen is flat. Palpations: Abdomen is soft. Tenderness: There is abdominal tenderness in the suprapubic area. There is no right CVA tenderness,left CVA tenderness, guarding or rebound. Neurological: Mental Status: She is alert. Psychiatric: Behavior: Behavior is cooperative. Filed Vitals: 02/22/24 1123 BP: 128/70 Pulse: 71 Resp: 16 Temp: 97.7 ??F (36.5 ??C) TempSrc: Skin SpO2: 91% Weight: 59.9 kg (132 lb 1.6 oz) Height: 1.537 m (5' 0.5 ) Diagnoses/Impression: 1. Acute cystitis with hematuria sulfamethoxazole-trimethoprim (BACTRIM DS) 800- 160 MG tablet 2. Gross hematuria URINALYSIS AUTO DIP URINALYSIS MICRO ONLY URINE BACTERIA CULTURE CBC W/DIFF AUTOMATED PROTIME/INR, FINGERSTICK Recommendations and Plan: 1. Acute cystitis with hematuria (Primary) Start antibiotics as prescribed Increase water intake Check PT/INR Check CBC Urine for culture - sulfamethoxazole-trimethoprim (BACTRIM DS) 800-160 MG tablet; Take 1 tablet by mouth 2 (two) times daily for 10 days. Dispense: 20 tablet; Refill: 0 2. Gross hematuria - URINALYSIS AUTO DIP - URINALYSIS MICRO ONLY; Future - URINE BACTERIA CULTURE; Future - URINE BACTERIA CULTURE - URINALYSIS MICRO ONLY - CBC W/DIFF AUTOMATED; Future - PROTIME/INR, FINGERSTICK Orders Placed This Encounter URINALYSIS AUTO DIP URINALYSIS MICRO ONLY CBC W/DIFF AUTOMATED PROTIME/INR, FINGERSTICK sulfamethoxazole-trimethoprim (BACTRIM DS) 800-160 MG tablet URINE BACTERIA CULTURE PCP: PHILLIP CURTIS MD 02/22/2024 LA OPERATOR * Phillip Curtis MD - 02/22/2024 10:40 AM CST Labs reviewed with patient at the time of office visit. LA OPERATOR documented in this encounter Plan of Treatment Upcoming Encounters Date Type Department Care Team (Late st Contact Info) Description 05/30/2024 7:20 AM CUPOLA OPERATOR Laboratory Only [facility] Family & Internal [address] [address] Sanket Waldron DO [address] [place] [address] 06/06/2024 11:40 AM CUPOLA OPERATOR Office Visit [facility] Family & Internal [address] [address] Sanket Waldron, DO [address] [place] [address] documented as of this encounter Procedures Procedure Name Priority Date/Time Associated Diagnosis Comments PROTHROMBIN TIME, VENOUS Routine 02/22/2024 11:59 AM CUPOLA OPERATOR Gross hematuria Elevated INR CBC W/DIFF AUTOMATED Routine 02/22/2024 11:59 AM CUPOLA OPERATOR Gross hematuria VENIPUNC ARM DRAW Routine 02/22/2024 11: 57 AM CUPOLA OPERATOR Gross hematuria Elevated INR URINALYSIS MICRO ONLY Routine 02/22/2024 11:13 AM CUPOLA OPERATOR Gross hematuria URINE BACTERIA CULTURE Routine 02/22/2024 11:08 AM CUPOLA OPERATOR Gross hematuria PROTHROMBIN TIME, FINGERSTICK Routine 02/22/2024 Gross hematuria URINALYSIS AUTO DIP Routine 02/22/2024 Gross hematuria documented in this encounter Results * (ABNORMAL) PROTIME/INR, VENOUS (02/22/2024 11:59 AM CUPOLA OPERATOR) Pathologist [facility] PROTIME 37.9(H) 9.3 - 11.6 SEC 02/22/2024 3:10 PM CUPOLA OPERATOR [facility] INR 4.0(H) 0.9 - 1.1 02/22/2024 3:10 PM CUPOLA OPERATOR [facility] Comment: TREATMENT OR PROPHYLAXIS AGAINST: ?? THERAPEUTIC RANGE (INR): ?VENOUS THROMBOSIS ? 2.0-3.0 ?PULMONARY EMBOLUS ? 2.0-3.0 ?? MECHANICAL PROSTHETIC VALVES ? 2.5-3.5 02/22/2024 11:5 9 AM CUPOLA OPERATOR us Phillip Curtis MD LABORATORY Final Result Performing Organization Address [facility]/State/[facility] Co de Phone Number [facility] [address] [place] [address], * (ABNORMAL) CBC W/DIFF AUTOMATED (02/22/2024 11:59 AM CUPOLA OPERATOR) Pathologist [facility] WBC 6.85 4.00 - 10.80 x10'3/uL 02/22/2024 3:12 PM CUPOLA OPERATOR [facility] RBC 4.12 4.10 - 5.40 x10'6/uL 02/22/2024 3:12 PM CUPOLA OPERATOR [facility] HGB 13.4 12.0 - 16.0 G/DL 02/22/2024 3:12 PM [facility] HCT 39.7 36.0 - 47.0 % 02/22/2024 3:12 PM [facility] MCV 96.4 78.0 - 100.0 FL 02/22/2024 3:12 PM [facility] MCH 32.5(H) 27.0 - 31.0 PG 02/22/2024 3:12 PM [facility] MCHC 33.8 33.0 - 36.0 G/DL 02/22/2024 3:12 PM [facility] RDW 12.8 11.5 - 14.5 % 02/22/2024 3:12 PM [facility] PLT 234 150 - 350 x10'3/uL 02/22/2024 3:12 PM [facility] MPV 11.2(H) 7.4 - 10.4 FL 02/22/2024 3:12 PM [facility] DIFFERENTIAL TYPE AUTOMATED DIFFERENTIAL 02/22/2024 3:12 PM [facility] NEUTROPHILS % 60.0 % 02/22/2024 3:12 PM [facility] LYMPHOCYTES % 26.3 % 02/22/2024 3:12 PM [facility] MONOCYTES % 10.7 % 02/22/2024 3:12 PM [facility] EOSINOPHILS % 2.2 % 02/22/2024 3:12 PM [facility] BASOPHILS % 0.7 % 02/22/2024 3:12 PM [facility] IMMATURE GRANS % 0.1 % 02/22/2024 3:12 PM [facility] ABS. NEUTROPHILS 4.11 1.60 - 8.30 x10'3/uL 02/22/2024 3:12 PM [facility] ABS. LYMPHOCYTES 1.80 0.80 - 4.70 x10'3/uL 02/22/2024 3:12 PM CUPOLA OPERATOR [facility] ABS. MONOCYTES 0.73 0.00 - 1.50 x10'3/uL 02/22/2024 3:12 PM CUPOLA OPERATOR [facility] ABS. EOSINOPHILS 0.15 0.00 - 0.40 x10'3/uL 02/22/2024 3:12 PM CUPOLA OPERATOR [facility] ABS. BASOPHILS 0.05 0.00 - 0.20 x10'3/uL 02/22/2024 3:12 PM CUPOLA OPERATOR [facility] ABS. IMMATURE GRANULOCYTES 0.01 0.00 - 0.03 x10'3/uL 02/22/2024 3:12 PM CUPOLA OPERATOR [facility] 02/22/2024 11:5 9 AM CUPOLA OPERATOR Phillip Curtis MD LABORATORY Final Result Performing Organization Address City/[facility]/ZIP Co de Phone Number [facility] [address] [place] [address], * (ABNORMAL) URINALYSIS MICRO ONLY (02/22/2024 11:13 AM CUPOLA OPERATOR) RBC/HPF PACKED(A) 0 - 3 /HPF 02/22/2024 3:06 PM CUPOLA OPERATOR [facility] WBC/HPF 0-3 0 - 3 /HPF 02/22/2024 3:06 PM CUPOLA OPERATOR [facility] EPI/HPF 0-3 /HPF 02/22/2024 3:06 PM CUPOLA OPERATOR [facility] BACTERIA (U) TRACE(A) NONE SEEN 02/22/2024 3:06 PM CUPOLA OPERATOR [facility] URINE SPECIMEN OBTAINED BY CLEAN CATCH PROCEDURE / Unknown 02/22/2024 11:13 AM CUPOLA OPERATOR us Phillip Curtis MD URINE ORDERABLES Final Result Performing Organization Address City/[facility]/ZIP Co de Phone Number [facility], [place] [address] [facility] [address], * URINE BACTERIA CULTURE (02/22/2024 11:08 AM CUPOLA OPERATOR) CULTURE RESULT [facility] [place] Comment: ??CULTURE, URINE, ROUTINE ?Micro Number: ?[id number] ??Test Status: ? Final ??Specimen Source: ?? [...] CATCH PROCEDURE / Unknown 02/22/2024 11:08 AM CUPOLA OPERATOR 02/23/2024 1:04 AM CUPOLA OPERATOR Narrative Resulting Agency Comment Performing Organization Information: ?Site ID: [id number] ?Name: [facility] ?Address: [facility] [place] [address] ?Director: Adilson Hameed Phillip Curtis MD MICROBIOLOGY - GENERAL ORDERAB LES Final Result [facility] [place] [address] [place] [address], [place] * PROTIME/INR, FINGERSTICK (02/22/2024) INR WHOLE BLOOD 4.50 [facility] Comment:Venous drawn 02/22/2024 us Phillip Curtis MD LABORATORY Final Result Performing Organization Address [facility]/[place] [address], * (ABNORMAL) URINALYSIS AUTO DIP (02/22/2024) COLOR (U) RED(A) YELLOW [facility] TRANSPARENCY TURBID(A) CLEAR [facility] GLUCOSE (U) NEGATIVE NEGATIVE MG/DL [facility] BILIRUBIN (U) NEGATIVE NEGATIVE [facility] MG/DL (U) NEGATIVE NEGATIVE MG/DL [facility] SPECIFIC GRAVITY (U) 1.020 1.001 - 1.035 [facility] BLOOD (U) LARGE (Non Hemolyzed, Intact, About 250 rbc/uL)(A) NEGATIVE [facility] U PH 7.0 5.0 - 9.0 [facility] PROTEIN (U) 2+ (100)(A) NEGATIVE mg/dL [facility] UROBILINOGEN 0.2 0.2 - 1.0 EU/dL = mg/dL [facility] NITRITES NEGATIVE NEGATIVE MG/DL [facility] LEUKOCYTES (U) TRACE(A) NEGATIVE [facility] URINE SPECIMEN OBTAINED BY CLEAN CATCH PROCEDURE / Unknown 02/22/2024 us Phillip Curtis MD URINE ORDERABLES Final Result Performing Organization Address [facility]/[place] [address], [place] documented in this encounter Visit Diagnoses Diagnosis Acute cystitis with hematuria- Primary Acute cystitis Gross hematuria Elevated INR Abnormal coagulation profile documented in this encounter Additional Health Concerns Assessment Noted Time PHQ-9 Depression Total Score: 0 02/03/20 24 2:27 PM CDT documented as of this encounter Care Teams Sulfonation Equipment Operator Relationship Specialty Start Date End Date Sanket Waldron DO [address] [place] [id number] PCP - General FAMILY PRACTICE 05/26/23 documented as of this encounter
--- OUTSIDE RECORDS SUMMARY | 2024-04-01 07:31 | XMS_ITS | Encounter Summary ---
Author Organization [facility] Address [address] [place] [address]. [place] [address] [place] [address] Care Team Providers Care [employer] Learning Support Teacher Name Role Phone Sanket Wladron DO Primary Care Provider + Reason for Visit * Reason Comments Lab (SCAN) Encounter Details Date Type Department Care Team (Latest Contact Info) Description 09/29/2023 Scan HEALTH INFO SRVCS Scanned, Doc Med [...] st Contact Info) Description 05/30/2024 7:20 AM TREE AND SHRUB TECHNICIAN Laboratory Only [facility] Medicine [address] [place] [address] Sanket Waldron DO [address] [place] [address] 06/06/2024 11:40 AM TREE AND SHRUB TECHNICIAN Office Visit [facility] Internal Medicine [address] [address] Sanket Waldron DO [address] [place] [address] documented as of this encounter Procedures Procedure Name Priority Date/Time Associated Diagnosis Comments OUTSIDE PT/INR (SCAN ORDER) 09/29/2023 documented in this encounter Results * OUTSIDE PT/INR (SCAN ORDER) (09/29/2023) 09/29/2023 us Doc [facility] Scanned SCANNING Final Resu lt documented in this encounter Visit Diagnoses Not on filedocumented in this encounter Care Teams High [employer] Learning Support Teacher Relationship Specialty Start Date End Date Sanket Waldron DO [address] [place] [address] PCP - General FAMILY PRACTICE 05/26/23 documented as of this encounter
--- OUTSIDE RECORDS SUMMARY | 2024-04-01 07:31 | XMS_ITS | Encounter Summary ---
Author Organization [facility] Address [address] [place] [address]. [place], [place] [id number] [place] [address] Care Team Providers Care Communications Strategist Name Role Phone Sanket Waldron DO Primary Care Provider + Encounter Details Date Type Department Care Team (Latest Contact Info) Description 02/22/2024 Travel Social History Tobacco Use Types Packs/Day [...] st Contact Info) Description 05/30/2024 7:20 AM AGRICULTURAL PRODUCTION ENGINEER Laboratory Only [facility] Family & Internal Medicine [facility] [address] [place] [address] Sanket Waldron DO [address] [place] [address] 06/06/2024 11:40 AM AGRICULTURAL PRODUCTION ENGINEER Office Visit [facility] Family & Internal Medicine - [address] [address] Sanket Waldron DO [address] [place] [address] documented as of this encounter Visit Diagnoses Not on filedocumented in this encounter Additional Health Concerns Assessment Noted Time PHQ-9 Depression Total Score: 0 02/03/20 24 2:27 PM CDT documented as of this encounter Care Teams Communications Strategist Relationship Specialty Start Date End Date Sanket Waldron DO [address] [place] [address] PCP - General FAMILY PRACTICE 05/26/23 documented as of this encounter
--- OUTSIDE RECORDS SUMMARY | 2024-04-01 07:31 | XMS_ITS | Encounter Summary ---
Author Organization [facility] Address [address] [place] [address]. [place] [address] [place] [address] Care Team Providers Care Welding Equipment Repairer Name Role Phone Sanket Waldron DO Primary Care Provider + Reason for Visit * Reason Onset Date Comments Radiology Results 11/13/2023 Encounter Details Date Type Department Care Team (Late st Contact Info) Description 11/13/2023 Telephone [facility] Family & Internal Medicine [facility] [address] [place] [address] Sanket Waldron DO [address] [place] [address] Radiology Results Social History Tobacco Use Types Packs/Day Years [...] of this encounter Progress Notes * Veronica Dick MA - 11/16/2023 4:29 PM CDT qLearning message sent. * Sanket Waldron DO - 11/13/2023 3:44 PM CDT Please let patient know we have her mammogram results from 11/12/23. It was negative for malignancy. Recommend repeat in 1 year. documented in this encounter Plan of Treatment Upcoming Encounters Date Type Department Care Team (Late st Contact Info) Description 05/30/2024 7:20 AM TURF FARM WORKER Laboratory Only [facility] Family & Internal [facility] [address] [place] [address] Sanket Waldron DO [address] [place] [address] 06/06/2024 11:40 AM TURF FARM WORKER Office Visit [facility] [address] [place] [address] Sanket Waldron DO [address] [place] [address] documented as of this encounter Visit Diagnoses Not on filedocumented in this encounter Care Teams Welding Equipment Repairer Relationship Specialty Start Date End Date Sanket Waldron DO [address] [place] [address] PCP - General FAMILY PRACTICE 05/26/23 documented as of this encounter
--- OUTSIDE RECORDS SUMMARY | 2024-04-01 07:31 | XMS_ITS | Encounter Summary ---
Author Organization [facility] Address [address] [place] [address]. [place], [place] [address] [place] [address] Care Team Providers Care Hotel Front Desk Agent Name Role Phone Sanket Waldron DO Primary Care Provider + Reason for Referral * Consultation (Routine) - Authorized Specialty Diagnoses / Procedures Referred By Contac t Referred To Contact DERMATOLOGY Diagnoses Eyelid abnormality Procedures OFFICE/OUTPATIENT NEW LOW MDM 30-44 MINUTES OFFICE/OUTPT VISIT,NEW,LEVL IV OFFICE/OUTPT VISIT,NEW,LEVL V OFFICE/OUTPT VISIT,EST,LEVL III OFFICE/OUTPT VISIT,EST,LEVL IV OFFICE/OUTPT VISIT,EST,LEVL V Sanket Waldron DO [address] [place] [address] Phone: tel: fax: Colin Alfonso MD [address] [place] [address] Phone: tel: fax: Referral ID Status Reason Start Date Expiration Date Visits Requested Visits Authorized [id number] Authorized Specialty Services 11/24/2023 11/23/2024 12 12 Scheduling Instructions [facility]. Encounter Details Date Type Department Care Team (Late st Contact Info) Description 11/16/2023 EMISPHERE TECHNOLOGIEShart Message Enc [facility] Family & Internal Medicine [phone] [place] [address] Sanket Waldron DO [address] [place] [address] Need referral for dermatology Colin Alfonso Social History Tobacco Use Types Packs/Day Years [...] Progress Notes * Veronica Dick MA - 11/20/2023 1:21 PM CDT Referral placed and patient notified * Sanket Waldron DO - 11/18/2023 2:35 PM CDT That's fine. documented in this encounter Plan of Treatment Upcoming Encounters Date Type Department Care Team (Late st Contact Info) Description 05/30/2024 7:20 AM JEWELRY TECHNICIAN Laboratory Only [facility] [address] [place] [address] Sanket Waldron DO [address] [place] [address] 06/06/2024 11:40 AM JEWELRY TECHNICIAN Office Visit [facility] Family & Internal [facility] [address] [place] [phone] Sanket Waldron DO [address] [place] [address] Scheduled Referrals Name Type Priority Associated Diagnoses Orde r Schedule Ambulatory referral to Dermatology Referral Routine Eyelid abnormality Ordered: 11/20/2023 documented as of this encounter Visit Diagnoses Diagnosis Eyelid abnormality- Primary Unspecified disorder of eyelid documented in this encounter Care Teams Hotel Front Desk Agent Relationship Specialty Start Date End Date Sanket Waldron DO [facility] [place] [address] PCP - General FAMILY PRACTICE 05/26/23 documented as of this encounter
--- OUTSIDE RECORDS SUMMARY | 2024-04-01 07:31 | XMS_ITS | Encounter Summary ---
Author Organization [facility] Address [address] [place] [address]. [place] [address] [place] [address] Care Team Providers Care Building Trades Teacher Name Role Phone Sanket Waldron DO Primary Care Provider + Encounter Details Date Type Department Care Team (Late st Contact Info) Description 07/16/2023 MyChart Message Enc [facility] Family & Internal [address] [address] Sanket Waldron DO [address] [place] [address] Surgery Date Social History Tobacco Use Types Packs/Day Years [...] st Contact Info) Description 05/30/2024 7:20 AM CHRISTIAN EDUCATION DIRECTOR Laboratory Only [facility] Internal [address] [address] Sanket Waldron DO [address] [place] [address] 06/06/2024 11:40 AM CHRISTIAN EDUCATION DIRECTOR Office Visit [facility] Family & Internal Medicine - [place] [address] [place] [address] Sanket Waldron DO [address] [place] [address] documented as of this encounter Visit Diagnoses Not on filedocumented in this encounter Care Teams Building Trades Teacher Relationship Specialty Start Date End Date Sanket Waldron DO [address] [place] [address] PCP - General FAMILY PRACTICE 05/26/23 documented as of this encounter
--- OUTSIDE RECORDS SUMMARY | 2024-04-01 07:31 | XMS_ITS | Encounter Summary ---
Author Organization [facility] Address [address] [place] [address]. [place] [address] [place] [address] Care Team Providers Care Guide Alpine Name Role Phone Sanket Waldron DO Primary Care Provider + Reason for Visit * Reason Comments Lab (SCAN) Encounter Details Date Type Department Care Team (Latest Contact Info) Description 08/23/2023 Scan HEALTH INFO SRVCS Scanned, Doc Med [...] st Contact Info) Description 05/30/2024 7:20 AM ALMOND PASTE MIXER Laboratory Only [facility] Family & Internal Medicine [address] [place] [address] Sanket Waldron DO [address] [place] [address] 06/06/2024 11:40 AM ALMOND PASTE MIXER Office Visit [facility] Family & Internal Medicine [address] [address] Sanket Waldron DO [address] [place] [address] documented as of this encounter Procedures Procedure Name Priority Date/Time Associated Diagnosis Comments OUTSIDE PT/INR (SCAN ORDER) 08/23/2023 documented in this encounter Results * OUTSIDE PT/INR (SCAN ORDER) (08/23/2023) 08/23/2023 [facility] Scanned SCANNING Final Resu lt documented in this encounter Visit Diagnoses Not on filedocumented in this encounter Care Teams Guide Alpine Relationship Specialty Start Date End Date Sanket Waldron DO [address] [place] [address] PCP - General FAMILY PRACTICE 05/26/23 documented as of this encounter
--- OUTSIDE RECORDS SUMMARY | 2024-04-01 07:31 | XMS_ITS | Encounter Summary ---
Author Organization [facility] Address [address] [place] [address]. [place] [address] [place] [address] Care Team Providers Care Top Cleaner Name Role Phone Sanket Waldron DO Primary Care Provider + Reason for Visit * Reason Comments Lab (SCAN) Encounter Details Date Type Department Care Team (Latest Contact Info) Description 12/24/2023 Scan HEALTH INFO SRVCS Scanned, Doc Med [...] st Contact Info) Description 05/30/2024 7:20 AM MIG TIG WELDER Laboratory Only [facility] Family & Internal Medicine [place] [address] [place] [address] Sanket Waldron DO [address] [place] [address] 06/06/2024 11:40 AM MIG TIG WELDER Office Visit [facility] Family & Internal Medicine [address] [address] Sanket Waldron DO [address] [place] [address] documented as of this encounter Procedures Procedure Name Priority Date/Time Associated Diagnosis Comments OUTSIDE PT/INR (SCAN ORDER) 12/24/2023 documented in this encounter Results * OUTSIDE PT/INR (SCAN ORDER) (12/24/2023) 12/24/2023 [facility] Scanned SCANNING Final Resu lt documented in this encounter Visit Diagnoses Not on filedocumented in this encounter Care Teams Top Cleaner Relationship Specialty Start Date End Date Sanket Waldron DO [address] [place] [address] PCP - General FAMILY PRACTICE 05/26/23 documented as of this encounter
--- OUTSIDE RECORDS SUMMARY | 2024-04-01 07:31 | XMS_ITS | Encounter Summary ---
Author Organization [facility] Address [address] [place] [address]. [place] [address] [place] [address] Care Team Providers Care Gre Tutor Name Role Phone Sanket Waldron DO Primary Care Provider + Reason for Visit * Reason Comments Lab (SCAN) Encounter Details Date Type Department Care Team (Latest Contact Info) Description 01/11/2024 Scan HEALTH INFO SRVCS Scanned, Doc Med [...] st Contact Info) Description 05/30/2024 7:20 AM DOCUMENT SCANNER Laboratory Only [facility] Family & Internal Medicine [address] [place] [address] Sanket Waldron DO [address] [place] [address] 06/06/2024 11:40 AM DOCUMENT SCANNER Office Visit [facility] Family & Internal Medicine [address] [address] Sanket Waldron DO [address] [place] [address] documented as of this encounter Procedures Procedure Name Priority Date/Time Associated Diagnosis Comments OUTSIDE PT/INR (SCAN ORDER) 01/11/2024 documented in this encounter Results * OUTSIDE PT/INR (SCAN ORDER) (01/11/2024) 01/11/2024 us Doc [facility] Scanned SCANNING Final Resu lt documented in this encounter Visit Diagnoses Not on filedocumented in this encounter Care Teams Gre Tutor Relationship Specialty Start Date End Date Sanket Waldron DO [address] [place] [address] PCP - General FAMILY PRACTICE 05/26/23 documented as of this encounter
--- OUTSIDE RECORDS SUMMARY | 2024-04-01 07:31 | XMS_ITS | Encounter Summary ---
Author Organization [facility] Address [address] [place] [address]. [place], [place] [address] [place] [address] Care Team Providers Care Side Door Man Name Role Phone Sanket Waldron Yuan THOMPSON Primary Care Provider + Reason for Visit * Reason Comments Lab (SCAN) Encounter Details Date Type Department Care Team (Latest Contact Info) Description 03/07/2024 Scan HEALTH INFO SRVCS Scanned, Doc Med [...] Upcoming Encounters Date Type Department Care Team ( Contact Info) Description 05/30/2024 7:20 AM ZINC PLATE CUTTER Laboratory Only [facility] Family & Internal Medicine [address] [address] Sanket Waldron DO [address] [place] [address] 06/06/2024 11:40 AM ZINC PLATE CUTTER Office Visit [facility] Family & Internal Medicine - [place] [address] [place] [address] Sanket Waldron DO [address] [place] [address] documented as of this encounter Procedures Procedure Name Priority Date/Time Associated Diagnosis Comments OUTSIDE PT/INR (SCAN ORDER) 03/07/2024 documented in this encounter Results * OUTSIDE PT/INR (SCAN ORDER) (03/07/2024) 03/07/2024 us Doc [facility] Scanned SCANNING Final Resu lt documented in this encounter Visit Diagnoses Not on filedocumented in this encounter Additional Health Concerns Assessment Noted Time PHQ-9 Depression Total Score: 0 02/03/20 24 2:27 PM CDT documented as of this encounter Care Teams Side Door Man Relationship Specialty Start Date End Date Sanket Waldron DO [address] [place] [address] PCP - General FAMILY PRACTICE 05/26/23 documented as of this encounter
--- OUTSIDE RECORDS SUMMARY | 2024-04-01 07:31 | XMS_ITS | Encounter Summary ---
Author Organization [facility] Address [address] [place] [address]. [place], [place] [id number] [place] [address] Care Team Providers Care Business Intelligence Developer Name Role Phone Sanket Waldron DO Primary Care Provider + Encounter Details Date Type Department Care Team (Late st Contact Info) Description 01/18/2024 elicit Message Enc [facility] Family & Internal Medicine [facility] [address] [place] [address] Sanket Waldron DO [address] [place] [address] Call from PT Provider Social History Tobacco Use Types Packs/Day Years [...] as of this encounter Progress Notes * Laly Horvath - 01/20/2024 11:50 AM CDTSummary: [facility] Referral Looks like we received a call from [employer] requesting 12 more visits. We updated the [facility] referral to reflex the 12 additional visits. The auth looks good on our end. documented in this encounter Plan of Treatment Upcoming Encounters Date Type Department Care Team (Late st Contact Info) Description 05/30/2024 7:20 AM FORENSIC ACCOUNTANT Laboratory Only [facility] Family & Internal [facility] [address] [place] [address] Sanket aWldron DO [address] [place] [address] 06/06/2024 11:40 AM FORENSIC ACCOUNTANT Office Visit [facility] Family Internal [place] [place] [address] Sanket Waldron DO [address] [place] [address] documented as of this encounter Visit Diagnoses Not on filedocumented in this encounter Care Teams Business Intelligence Developer Relationship Specialty Start Date End Date Sanket Waldron DO [address] [place] [address] PCP - General FAMILY PRACTICE 05/26/23 documented as of this encounter
--- OUTSIDE RECORDS SUMMARY | 2024-04-01 07:31 | XMS_ITS | Encounter Summary ---
Author Organization [facility] Address [address] [place] [address]. [place], [place] [id number] [place] [id number] Care Team Providers Care Embroiderer Hand Name Role Phone Sanket Waldron DO Primary Care Provider + Reason for Visit * Reason Comments Medicare Wellness Encounter Details Date Type Department Care Team (Late st Contact Info) Description 02/03/2024 2:00 PM CDT Office Visit [facility] Family [facility] [address] [place] [address] Sanket Waldron DO [address], [place] [id number] Medicare Wellness Social History Tobacco Use Types Packs/Day Years [...] Sign Reading Time Taken Comments Blood Pressure 120/72 02/03/2024 2:40 PM CDT Pulse 72 02/03/2024 2:40 PM CDT Temperature 36.7 ??C (98.1 ??F) 02/03/2024 2:40 PM CD T Respiratory Rate 16 02/03/2024 2:40 PM CDT Oxygen Saturation 98% 02/03/2024 2:40 PM CDT Inhaled Oxygen Concentration - - Weight 59.3 kg (130 lb 12.8 oz) 02/03/2024 2:40 PM CDT Height 153.7 cm (5' 0.5 ) 02/03/2024 2:40 PM CDT Body Mass Index 25.12 02/03/2024 2:40 PM CDT documented in this encounter Patient Instructions * Patient Instructions* Ban Hawkins RN - 02/03/2024 2:00 PM CDT PERSONALIZED PREVENTION PLAN FOR Yessy Donaldson These are your preventive care screenings with due dates. Health Maintenance Topic Date Due ??? Annual Medicare Wellness Visit Never done ??? COVID-19 Vaccine (2023- season) 2023 ??? Influenza Adult (1) 01/12/2024 ??? Colorectal Cancer Screening Colonoscopy (10 Years) 04/12/2025 (Originally 1955) ??? Mammogram Screening 11/11/2024 ??? Dexa Scan (General) 11/11/2025 ??? DTaP, Tdap and Td Vaccines (4 - Td or Tdap) 11/17/2028 ??? Zoster Vaccines Completed ??? Pneumococcal Vaccine: 65+ Years Completed ??? Hepatitis C Completed ??? RSV Immunization or 60+ Years Completed ??? Meningococcal Vaccine Aged Out ??? RSV Immunizations Under 20 Months Aged Out Recommended Covered Preventative Services Your PCP and clinical team will review the list below of recommended Medicare Part B Covered Preventative Services and follow up with you on future scheduling of any additional services Based on your responses to the Health Risk Assessment and appointment today, your provider recommends the following: ADVANCE DIRECTIVES The Basics Written by the doctors and editors at [facility] What are advance directives???--??Advance directives are legal documents that allow you to spell out ahead of time what of types medical care you would want if you ever became unable to speak for yourself. These documents can help ensure that you get the care you want even if you have an unexpectedserious illness or accident. The documents can also make things easier for the people who will need to make decisions for you if you ever become unable to make them for yourself. Are there different kinds of advance directives???--??Yes. The most useful kinds of advance directives are: Health care proxy (also called the durable power of attorney law clerk for health care) - The health care proxy document allows you to choose someone to make medical decisions for you if you become unable to speak for yourself. The benefit of having this document is that it makes your choice of a decision-maker clear to your doctors and family members. When you choose a health care proxy, it is important to talk to the person you choose about the things that you do or don't want. That way your decision-maker knows what to do later on if he or she ever has to speak for you. Living will - A living will is the document that tells health care providers what type of care you want if you become unable to speak for yourself. For instance, a living will allows you to record inwriting whether you would want a feeding tube put in if you had a serious illness or accident. Do not resuscitate/do not intubate order (also called a DNR/DNI) - If you decide you do not want your heart restarted if it stops and you do not want a breathing tube put in if you stop breathing, you can ask for a DNR/DNI. This is a form that must be signed by a doctor. It tells all your health care providers that you have decided you do not want these treatments. Advance directives work best when they are part of a team effort that includes not only the person making the decisions, but also doctors, emergency health workers, and places like hospitals and nursing homes. The Physician Orders for Life Sustaining Treatment (POLST) is a form for people who already have a serious illness or are very weak and likely to need medical help. The POLST form spells out exactly what care should be given, and not given, based on your choices and wishes. It is signed by your doctor, and you can keep a copy at home to be used in the event of an emergency. A copy is also kept onfile at any hospital or other place where you might get medical care. Not every state has a POLST program. To find out if your state has one, you can go online to www.polst.org. How do I choose a health care proxy???--??Choose someone who: You know and trust Can separate his or her own wishes from your own You know would carry out your wishes if that became necessary Could be easily reached if he or she was needed Could handle it if other family members or loved ones wanted you to get treated differently than you would want Some people choose a second person as an alternate proxy, in case their first choice cannot be reached at the time decisions need to be made. Who should have an advance directive???--??Advance directives are a good idea for anyone, but they are especially important if: You are older than 65. You have a serious life-threatening illness, such as advanced cancer, or end- stage heart or liver failure. The person whom you would like as your health care proxy (decision-maker) is not a family member orlegally to you. If that is the case the person you would choose might not be allowed to make decisions for you. Unless there is a health care proxy, the law usually states that a person's closest family member has the right to make decisions for him or her. What kinds of decisions will I need to make???--??Your advance directives can have as much or as little detail as you want. But many people who have advance directives record their wishes about the following treatments: Breathing tubes - If you stop breathing or are having a very hard time breathing, you can get attached to a machine that will help you breathe. For that to happen, you will have to be intubated. That means that a tube will be put down your throat and into your lungs. Then the tube will be connected to a breathing machine. When the tube is in place, you will not be able to talk, at least at first. Plus, you will probably be sedated, meaning that you are on medicines that make you sleep. Sometimes a breathing machine is needed only for a short time. For instance, some people need the breathing machine just while they recover from a lung infection. When deciding about a breathing tube, consider whether you would want it at all, want it only for a short time, or want it no matter what. Also, keep in mind that any time a breathing machine is used, it is hard to know for sure if and when it will be able to be disconnected. Cardiopulmonary resuscitation (CPR) - If your heart stops beating suddenly, doctors might be able to restart it by pumping on your chest, putting in a breathing tube and pushing air into your lungs, giving you an electric shock (called defibrillation ), and/or giving you special medicines. Some people recover completely after having their heart restarted. Others have permanent brain damage from a lack of blood flow to the brain; this is most likely in people who have an advanced, serious illness. Feeding tubes - If you become unable to eat, you can have a tube put into your stomach or intestines that can deliver nutrients. A feeding tube can keep a person's body going while he or she heals and gets strong. But it can also keep a person alive for a long time even if there is no chance the person will recover. Can I change my mind???--??Yes. You can change your mind at any time. If you sign an advance directive and you decide you want a different kind of treatment or you no longer want the health care proxy you chose, all you have to do is tell your doctor or nurse about your new decision. If you want toname a new health care proxy or want to record new wishes, you can draw up new documents. How can I draw up an advance directive???--??The following table lists resources that can help you learn more about making your own advance directives (table 1). All topics are updated as new evidence becomes available and our peer review process is complete. This topic retrieved from [employer] on: Apr 20, 2018. Topic 31824 Version 11.0 table 1: Resources that can help you make advance directives ?? Address Phone number Website [facility] [address] [place] [address] Toll-free: [phone] [facility] [ ] http://assets.[facility].org/external_sites/ caregiving/multimedia/EG_AdvanceDirectives.html Aging with Dignity (Five Wishes form) [address] [place] [address] Toll-free: (085) 5WISH [ ] www.agingwithdignity.org CaringInfo ?? Toll-free: www.caringeMoovo.org [employer] [address] [place] [address] www.[email or web address].org FALL RISK Guidelines to help you prevent falls: There are several steps you can take to decrease fall risk at home. One suggestion is to remove tripping hazards like throw rugs, loose wires, clutter or other objects from the floor. Installing hand-rails for stairs and turning on night lights between the bedroom and bathroom at night are other helpful suggestions. If you have fallen in the bathroom, use of grab bars near the toilet and a shower stool or bench may help prevent a fall in this part of the home. Taking extra time when getting up from a sitting or lying position before starting to walk is especially helpful to those who have dizziness triggered by change in body position. There are also some steps that can be taken to reduce fall risk outdoors. Wearing well-fitting shoes with good traction is important when walking on either the pavement or the lawn. Avoid high heels or shoes with very thick soles, especially if you have peripheral neuropathy. If you have problems with balance or leg pain, using a cane or walker can also be helpful. Finally, be aware of possible tripping hazards outdoors including uneven pavement and slipping hazards like wet ground or pavement. PAIN During your health risk assessment you complained of pain. Pain can be an unpleasant feeling that happens in any part of the body. It can be mild or very bad. You may feel this pain always or it may just come and go. It may be dull, sharp, or throbbing. Pain can last for a long time or a short time. Pain can cause upset stomach and throwing up. When you are in pain you may not feel hungry. You may feel nervous. Pain can be acute or chronic. Acute pain tells you there may be an injury and you need to take careof yourself. Chronic pain lasts for a long period of time. What are the causes? Headache Back problems Arthritis Muscle strain Trauma, such as a blow to the body, fall, motor vehicle accident, or gunshot wound Infection Menstrual pain in women What are the main signs? Pain can be throbbing or shooting. Some people feel pain as dull and others as sharp. It may tingleor burn and shoot down an arm or leg. You may also notice that you are limited when moving a part of your body from pain. Sometimes, pain causes you to have muscle aches or spasms. Other people have headaches or are grouchy when in pain. Some people have loose stools when in pain. Some people have trouble sleeping when in pain. How does the doctor diagnose this health problem? Your doctor will ask you to talk about your pain. Tell the doctor: How your pain feels. Is it dull, sharp, burning, stabbing, or cramping? Where your pain is What causes your pain What makes your pain better or worse Your doctor may ask you to rate your pain. This means you would pick a number or picture that most closely describes your pain. The doctor may ask you to say what number your pain is between 0 and 10. Zero means you have no pain at all and 10 means you have the worst pain ever and you need to go [facility]. An exam will help your doctor find out where the pain is and what is causing it. Some simple blood tests may be done. This will help your doctor decide if any other tests are needed. How does the doctor treat this health problem? Mild drugs may be ordered to ease your pain. Sometimes, pain is a sign of some other problem in your body. In this case, drugs may not be ordered at all or only mild ones given. To treat mild to moderate pain: Acetaminophen Nonsteroidal anti-inflammatory drugs (NSAIDs) like aspirin or ibuprofen NSAIDs in a cream form can be used on the skin where you feel the pain Muscle relaxers may be used to loosen tight muscles To treat moderate to very bad pain: Weak opioid drugs like codeine Strong opioid drugs like morphine Ice, heat, rest, and elevating your painful body part may be used to ease pain and help with swelling from muscle pain. When Using Ice Place an ice pack or a bag of frozen peas wrapped in a towel over the painful part. Never put ice right on the skin. Do not leave the ice on more than 10 to 15 minutes at a time. When Using Heat Heat may be used later but not right away. Heat can make swelling worse. If your doctor tells you to use heat, put a heating pad on your painful part for no more than 20 minutes at a time. Never go to sleep with a heating pad on as this can cause crane. Your doctor may suggest other types of pain control to help you. Some of these are massage, acupuncture, child care director, and relaxation. What drugs may be needed? The doctor may order drugs to: Help with pain and swelling Relax tight muscles Take your drugs as ordered by your doctor. Some of these drugs can be habit forming and may cause side effects. What can be done to prevent this health problem? The best thing you can do is talk to your doctor about any pain you have. Your doctor can help you make a plan to lower your pain. Some causes of pain get better by staying active and working out. Your doctor may send you to a physical therapist to help you work on strength exercises and stretching. documented in this encounter Progress Notes * Ban Hawkins RN - 02/03/2024 2:00 PM CDT Medicare Annual Wellness Visit Chief Complaint: Yessy is an 68-year-old female here for an annual wellness visit. Patient Care Team: Sanket Waldron DO as PCP - General (FAMILY PRACTICE) HEALTH RISK ASSESSMENT 02/03/2024 2:10 PM Medicare Wellness During the past 4 weeks, how much have you been bothered by emotional problems such as feeling anxious, depressed, irritable, sad or downhearted and blue? Slightly During the past 4 weeks, has your physical and emotional health limited your social activities withfamily friends, neighbors or groups? Not at all During the past 4 weeks, how much bodily pain have you generally had? Moderate pain During the past 4 weeks, was someone able to help you if you needed and wanted help? Yes, quite a bit During the past 4 weeks, what was the hardest physical activity you could do for atleast 2 minutes?Moderate Can you get places out of walking distance without help? Yes Can you shop for groceries or clothes without help? Yes Can you prepare your own meals? Yes Can you do your own housework without help? Yes Can you handle your own money without help? Yes Do you need help eating, bathing, dressing, or getting around your home? No During the past 4 weeks, how would you rate your general health? Good How have things been going for you during the past 4 weeks? Pretty well Are you having difficulties driving your car? No Do you always fasten your seatbeat when you are in a car? Yes Fall or dizzy when standing up Never Sexual problems Never Trouble eating well Never Teeth or dentures Never Problems using the telephone Sometimes Tired or fatigued Seldom Do you currently smoke? No During the past 4 weeks, how many drinks of wine, beer or other alcoholic bevearges did you have? 1drink or less per week Do you exercise for about 20 minutes 3 or more days a week? Yes, most of the time How often do you have trouble taking medicines the way you have been told to take them? I always take them as prescribed How confident are you that you can control and manage most of your health problems? Somewhat confident In the past 6 months, have you experienced leaking of urine? Yes How much did leaking of urine make you change your daily activities or interfere with your sleep? Some of the time Does the patient live alone? Yes Does the patient have throw rugs in their home? No Does the patient's home have poor lighting? Yes Does the patient have grab bars in their bathroom? No Does the patient have handrails on stairs and steps in their home? Yes Does the patient's home have functioning smoke alarms? Yes FALL RISK Fall Risk One or more falls in the last year:: No Feels unsteady when walking:: Yes Worried about falling:: No MINI-COG 02/03/2024 2:28 PM Mini-Cog 3 word recall 3 Clock Draw 2 Total Score = Word Recall Score + Clock Draw score 5 PHQ2/PHQ9 05/26/2023 11:00 AM 02/03/2024 2:27 PM PHQ2/PHQ 9 DEPRESSION SCREEN QUESTIONAIRE Little interest or pleasure in doing things Over half Not at all Feeling down, depressed, or hopeless Not at all Not at all Patient Health Questionnaire-2 Score 2 0 Trouble falling or staying asleep, or sleeping too much Not at all Feeling tired or having little energy Not at all Poor appetite or overeating Not at all Feeling bad about yourself - or that you are a failure or have let yourself or your family down Notat all Trouble concentrating on things, such as reading the newspaper or watching television Not at all Moving or speaking so slowly that other people could have noticed? Or the opposite - being so fidgety or restless that you have been moving around a lot more than usual. Not at all Thoughts that you would be better off or hurting yourself in some way Not at all Patient Health Questionnaire-9 Score 0 How difficult have these problems made it for you to do your work, take care of things at home, or get along with other people? Not difficult at all SUBSTANCE USE SCREENING 02/03/2024 2:27 PM Audit C+2 Screening Q1: How often do you have a drink containing alcohol? Monthly or l Q2: How many drinks containing alcohol do you have on a typical day when you are drinking? 1 or 2 Q3: How often do you have six or more drinks on one occasion? Never How often have you used marijuana? 0 How often have you used an illegal drug or a prescription medication for non- medical reasons? For example, used for the feeling or experience it caused. 0 Audit-C Score 1 Substance Use Score 0 Alcohol and Substance Total Score 1 The 10-year ASCVD risk score (Anastasiya DESOUZA, et al., 2019) is: 4.7% Values used to calculate the score: Age: 68 years Sex: Female Is Non- : No Diabetic: No Tobacco smoker: No Systolic Blood Pressure: 122 mmHg Is BP treated: No HDL Cholesterol: 67 MG/DL Total Cholesterol: 161 MG/DL HISTORY Past Medical History: Diagnosis Date Arthritis 1986 Asthma (HHS/HCC) 1960 Bilateral carpal tunnel syndrome 05/26/2023 Bilateral sciatica [...] knee replacement 08/24/2023 TMJ (temporomandibular joint syndrome) Past Surgical History: Procedure Laterality Date CARDIAC VALVE REPLACEMENT 11/06/2008 JOINT REPLACEMENT Great Toe Implant in TOTAL KNEE ARTHROPLASTY Right 08/24/2023 No family history on file. Social History Socioeconomic History Marital status: Spouse name: Vipul Number of children: 2 Social History Tobacco Use Smoking status: Former Current packs/day: 0.00 Types: Cigarettes Smokeless tobacco: Never Tobacco comments: Smoked occasionally for 3 months in mid 70s Substance Use Topics Alcohol use: Not Currently Comment: Occasional wine or daiquiri Current Outpatient Medications Medication Sig Dispense Refill albuterol sulfate HFA 108 (90 Base) MCG/ACT inhaler Inhale 2 puffs into the lungs every 6 (six) hours as needed. 18 g 1 amoxicillin (AMOXIL) 500 MG capsule Ascorbic Acid (VITAMIN C) 250 MG Chew [...] 1 tablet (600 mg total) by mouth 3 (three) times daily asneeded (Pain). 270 tablet 1 latanoprost (XALATAN) 0.005 % ophthalmic solution INSTILL 1 DROP INTO RIGHT EYE AT BEDTIME Magnesium Oxide 400 MG Cap Take 1 tablet by mouth daily. Saline (OCEAN NASAL SPRAY NA) warfarin (COUMADIN) 2 MG tablet Take 2 tablets (4 mg total) by mouth daily. hypromellose (ISOPTO TEARS) 0.5 % ophthalmic solution Apply 1 drop to eye. (Patient not taking: Reported on 02/03/2024) No current facility-administered medications for this visit. EXAM There were no vitals filed for this visit. Patient denies any problems with hearing. ASSESSMENT AND PLAN The patient's current medical problems were reviewed. The following health maintenance schedule was reviewed with the patient and provided in printed form in the after visit summary: Health Maintenance Topic Date Due Annual Medicare Wellness Visit Never done COVID-19 Vaccine ( season) 2023 Influenza Adult (1) 01/12/2024 Colorectal Cancer Screening Colonoscopy (10 Years) 04/12/2025 (Originally 1955) Mammogram Screening 11/11/2024 Dexa Scan (General) 11/11/2025 DTaP, Tdap and Td Vaccines (4 - Td or Tdap) 11/17/2028 Zoster Vaccines Completed Pneumococcal Vaccine: 65+ Years Completed Hepatitis C Completed RSV Immunization or 60+ Years Completed Meningococcal Vaccine Aged Out RSV Immunizations Under 20 Months Aged Out The following list of Medicare Part B Covered Preventative Services and Identified Health Risks were discussed with the patient and will be reviewed with the patient???s PCP / care team for further follow up and scheduling. Based on Yessy's responses to the Health Risk Assessment, we disscussed the following risks. ADVANCE DIRECTIVE The patient was counseled and encouraged to create an Advance Directive. This will be further evaluated and addressed at a follow up visit. FALL RISK She is at risk for falling and has been provided with information to reduce the risk of falling at home as well as outside the home. PAIN The patient was provided with information and appropriate referrals to address her pain problem. I reviewed all the information above with the patient and made screening recommendations based on my findings. BAN HAWKINS RN I reviewed the patient's history, vitals from today, answers to the assessment and the services recommended by BAN HAWKINS RN. I agree with the findings and recommendations. Cosigned by Sanket Waldron DO at 02/03/2024 3:55 PM CDT documented in this encounter Plan of Treatment Upcoming Encounters Date Type Department Care Team (Late st Contact Info) Description 05/30/2024 7:20 AM SENIOR INTERIOR DESIGNER Laboratory Only [facility] Family & Internal Medicine [address] [phone] Sanket Waldron DO [address] [place] [id number] 06/06/2024 11:40 AM SENIOR INTERIOR DESIGNER Office Visit [facility] - [place] [address] [place] [address] Sanket Waldron DO [address] [place] [address] documented as of this encounter Visit Diagnoses Diagnosis Routine general medical examination at a health care facility- Primary documented in this encounter Additional Health Concerns Assessment Noted Time PHQ-9 Depression Total Score: 0 02/03/20 24 2:27 PM CDT documented as of this encounter Care Teams Embroiderer Hand Relationship Specialty Start Date End Date Sanket Waldron DO [address] [place] [address] PCP - General FAMILY PRACTICE 05/26/23 documented as of this encounter
--- OUTSIDE RECORDS SUMMARY | 2024-04-01 07:31 | XMS_ITS | Encounter Summary ---
Author Organization [facility] Address [address] [place] [address]. [place], [place] [address] [place] [address] Care Team Providers Care Crew Boat Operator Name Role Phone Sanket Waldron Yuan THOMPSON Primary Care Provider + Reason for Visit * Reason Comments Lab (SCAN) Encounter Details Date Type Department Care Team (Latest Contact Info) Description 02/29/2024 Scan HEALTH INFO SRVCS Scanned, Doc Med [...] ( Contact Info) Description 05/30/2024 7:20 AM INFRASTRUCTURE ANALYST Laboratory Only [facility] Medical Group Family & Internal Medicine [address] [address] Sanket Waldron DO [address] [place] [address] 06/06/2024 11:40 AM INFRASTRUCTURE ANALYST Office Visit [facility] Medical Group Family & Internal Medicine - [place] [address] [place] [address] Sanket Waldron DO [address] [place] [address] documented as of this encounter Procedures Procedure Name Priority Date/Time Associated Diagnosis Comments OUTSIDE PT/INR (SCAN ORDER) 02/29/2024 documented in this encounter Results * OUTSIDE PT/INR (SCAN ORDER) (02/29/2024) 02/29/2024 us Doc Med Group Scanned SCANNING Final Resu lt documented in this encounter Visit Diagnoses Not on filedocumented in this encounter Additional Health Concerns Assessment Noted Time PHQ-9 Depression Total Score: 0 02/03/20 24 2:27 PM CDT documented as of this encounter Care Teams Crew Boat Operator Relationship Specialty Start Date End Date Sanket Waldron DO [address] [place] [address] PCP - General FAMILY PRACTICE 05/26/23 documented as of this encounter
--- OUTSIDE RECORDS SUMMARY | 2024-04-01 07:31 | XMS_ITS | Encounter Summary ---
Author Organization [facility] Address [address] [place] [address]. [place], [place] [address] [place] [address] Care Team Providers Care Field Support Technician Name Role Phone Sanket Waldron Yuan THOMPSON Primary Care Provider + Reason for Visit * Reason Comments Lab (SCAN) Encounter Details Date Type Department Care Team (Latest Contact Info) Description 02/25/2024 Scan HEALTH INFO SRVCS Scanned, Doc Med [...] ( Contact Info) Description 05/30/2024 7:20 AM MEASUREMENT AND SENSING TECHNICIAN Laboratory Only [facility] Medical Group Family & Internal Medicine [address] [address] Sanket Waldron DO [address] [place] [address] 06/06/2024 11:40 AM MEASUREMENT AND SENSING TECHNICIAN Office Visit [facility] Medical Group Family & Internal Medicine - [place] [address] [place] [address] Sanket Waldron DO [address] [place] [address] documented as of this encounter Procedures Procedure Name Priority Date/Time Associated Diagnosis Comments OUTSIDE PT/INR (SCAN ORDER) 02/25/2024 documented in this encounter Results * OUTSIDE PT/INR (SCAN ORDER) (02/25/2024) 02/25/2024 us Doc Med Group Scanned SCANNING Final Resu lt documented in this encounter Visit Diagnoses Not on filedocumented in this encounter Additional Health Concerns Assessment Noted Time PHQ-9 Depression Total Score: 0 02/03/20 24 2:27 PM CDT documented as of this encounter Care Teams Field Support Technician Relationship Specialty Start Date End Date Sanket Waldron DO [address] [place] [address] PCP - General FAMILY PRACTICE 05/26/23 documented as of this encounter
--- OUTSIDE RECORDS SUMMARY | 2024-04-01 07:31 | XMS_ITS | Encounter Summary ---
Author Organization [facility] Address [address] [place] [address]. [place], [place] [address] [place] [address] Care Team Providers Care Senior Statistical Programmer Name Role Phone Sanket Waldron DO Primary Care Provider + Encounter Details Date Type Department Care Team (Latest Contact Info) Description 02/03/2024 Scan MG HEALTH INFO SRVCS Scanned, [...] st Contact Info) Description 05/30/2024 7:20 AM LANDSCAPE LABORER Laboratory Only [facility] Medical [facility] Family & Internal Medicine [address] [address] Sanket Waldron DO [address] [place] [address] 06/06/2024 11:40 AM LANDSCAPE LABORER Office Visit [facility] Medical Group Family & Internal Medicine - [place] [address] [place] [address] Sanket Waldron DO [address] [place] [address] documented as of this encounter Visit Diagnoses Not on filedocumented in this encounter Additional Health Concerns Assessment Noted Time PHQ-9 Depression Total Score: 0 02/03/20 24 2:27 PM CDT documented as of this encounter Care Teams Senior Statistical Programmer Relationship Specialty Start Date End Date Sanket Waldron DO [address] [place] [address] PCP - General FAMILY PRACTICE 05/26/23 documented as of this encounter
--- OUTSIDE RECORDS SUMMARY | 2024-04-01 07:31 | XMS_ITS | Encounter Summary ---
Author Organization [facility] Address [address] [place] [address]. [place] [address] [place] [address] Care Team Providers Care Integration Assistant Name Role Phone Sanket Waldron DO Primary Care Provider + Reason for Visit * Reason Comments Lab (SCAN) Encounter Details Date Type Department Care Team (Latest Contact Info) Description 11/26/2023 Scan HEALTH INFO SRVCS Scanned, Doc Med [...] st Contact Info) Description 05/30/2024 7:20 AM ENERGY OPERATIONS VICE PRESIDENT Laboratory Only [facility] Family & Internal Medicine [place] [address] [place] [address] Sanket Waldron DO [address] [place] [address] 06/06/2024 11:40 AM ENERGY OPERATIONS VICE PRESIDENT Office Visit [facility] Family & Internal Medicine [address] [address] Sanket Waldron DO [address] [place] [address] documented as of this encounter Procedures Procedure Name Priority Date/Time Associated Diagnosis Comments OUTSIDE PT/INR (SCAN ORDER) 11/26/2023 documented in this encounter Results * OUTSIDE PT/INR (SCAN ORDER) (11/26/2023) 11/26/2023 us Doc Med Group Scanned SCANNING Final Resu lt documented in this encounter Visit Diagnoses Not on filedocumented in this encounter Care Teams Integration Assistant Relationship Specialty Start Date End Date Sanket Waldron DO [address] [place] [address] PCP - General FAMILY PRACTICE 05/26/23 documented as of this encounter
--- OUTSIDE RECORDS SUMMARY | 2024-04-01 07:31 | XMS_ITS | Encounter Summary ---
Author Organization [facility] Address [address] [place] [address]. [place] [address] [place] [address] Care Team Providers Care Analytical Scientist Name Role Phone Sanket Waldron DO Primary Care Provider + Reason for Visit * Reason Comments Lab (SCAN) Encounter Details Date Type Department Care Team (Latest Contact Info) Description 07/06/2023 Scan HEALTH INFO SRVCS Scanned, Doc Med [...] st Contact Info) Description 05/30/2024 7:20 AM ASSOCIATE ACCOUNT MANAGER Laboratory Only [facility] Family & Internal Medicine [place] [address] [place] [address] Sanket Waldron DO [address] [place] [address] 06/06/2024 11:40 AM ASSOCIATE ACCOUNT MANAGER Office Visit [facility] Family & Internal Medicine [address] [address] Sanket Waldron DO [address] [place] [address] documented as of this encounter Procedures Procedure Name Priority Date/Time Associated Diagnosis Comments OUTSIDE PT/INR (SCAN ORDER) 07/06/2023 OUTSIDE PT/INR (SCAN ORDER) 07/06/2023 documented in this encounter Results * OUTSIDE PT/INR (SCAN ORDER) (07/06/2023) 07/06/2023 us Doc Med Group Scanned SCANNING Final Resu lt * OUTSIDE PT/INR (SCAN ORDER) (07/06/2023) 07/06/2023 us [facility] Scanned SCANNING Final Resu lt documented in this encounter Visit Diagnoses Not on filedocumented in this encounter Care Teams Analytical Scientist Relationship Specialty Start Date End Date Sanket Waldron DO [address] [place] [address] PCP - General FAMILY PRACTICE 05/26/23 documented as of this encounter
--- OUTSIDE RECORDS SUMMARY | 2024-04-01 07:31 | XMS_ITS | Encounter Summary ---
Author Organization [facility] Address [address] [place] [address]. [place] [address] [place] [address] Care Team Providers Care Conditioner Tumbler Operator Name Role Phone Sanket Waldron DO Primary Care Provider + Reason for Visit * Reason Comments Lab (SCAN) Encounter Details Date Type Department Care Team (Latest Contact Info) Description 07/13/2023 Scan HEALTH INFO SRVCS Scanned, Doc Med [...] st Contact Info) Description 05/30/2024 7:20 AM STRUCTURAL ENGINEER Laboratory Only [facility] Family & Internal Medicine [place] [address] [place] [address] Sanket Waldron DO [address] [place] [address] 06/06/2024 11:40 AM STRUCTURAL ENGINEER Office Visit [facility] Family & Internal Medicine [address] [address] Sanket Waldron DO [address] [place] [address] documented as of this encounter Procedures Procedure Name Priority Date/Time Associated Diagnosis Comments OUTSIDE PT/INR (SCAN ORDER) 07/13/2023 documented in this encounter Results * OUTSIDE PT/INR (SCAN ORDER) (07/13/2023) 07/13/2023 us Doc Med Group Scanned SCANNING Final Resu lt documented in this encounter Visit Diagnoses Not on filedocumented in this encounter Care Teams Conditioner Tumbler Operator Relationship Specialty Start Date End Date Sanket Waldron DO [address] [place] [address] PCP - General FAMILY PRACTICE 05/26/23 documented as of this encounter
--- OUTSIDE RECORDS SUMMARY | 2024-04-01 07:31 | XMS_ITS | Encounter Summary ---
Author Organization [facility] Address [address] [place] [address]. [place], [place] [address] [place] [address] Care Team Providers Care Juvenile Detention Officer Name Role Phone Sanket Waldron DO Primary Care Provider + Encounter Details Date Type Department Care Team (Latest Contact Info) Description 02/03/2024 Travel Social History Tobacco Use Types Packs/Day [...] st Contact Info) Description 05/30/2024 7:20 AM ELECTRIC PILE DRIVER OPERATOR Laboratory Only [facility] Medical Group Family & Internal Medicine [facility] [address] [place] [address] Sanket Waldron DO [address] [place] [address] 06/06/2024 11:40 AM ELECTRIC PILE DRIVER OPERATOR Office Visit [facility] Medical Group Family & Internal Medicine - [address] [address] Sanket Waldron DO [address] [place] [address] documented as of this encounter Visit Diagnoses Not on filedocumented in this encounter Additional Health Concerns Assessment Noted Time PHQ-9 Depression Total Score: 0 02/03/20 24 2:27 PM CDT documented as of this encounter Care Teams Juvenile Detention Officer Relationship Specialty Start Date End Date Sanket Waldron DO [address] [place] [address] PCP - General FAMILY PRACTICE 05/26/23 documented as of this encounter
--- OUTSIDE RECORDS SUMMARY | 2024-04-01 07:31 | XMS_ITS | Encounter Summary ---
Author Organization [facility] Address [address] [place] [address]. [place], [place] [address] [place] [address] Care Team Providers Care Senior Specialist Name Role Phone Sanket Waldron Yuan THOMPSON Primary Care Provider + Reason for Visit * Reason Comments Lab (SCAN) Encounter Details Date Type Department Care Team (Latest Contact Info) Description 02/01/2024 Scan HEALTH INFO SRVCS Scanned, Doc Med [...] ( Contact Info) Description 05/30/2024 7:20 AM FREIGHT WEIGHER Laboratory Only [facility] Medical Group Family & Internal Medicine [address] [address] Sanket Waldron DO [address] [place] [address] 06/06/2024 11:40 AM FREIGHT WEIGHER Office Visit [facility] Medical Group Family & Internal [facility] [address] [place] [address] Sanket Waldron DO [address] [place] [address] documented as of this encounter Procedures Procedure Name Priority Date/Time Associated Diagnosis Comments OUTSIDE PT/INR (SCAN ORDER) 02/01/2024 documented in this encounter Results * OUTSIDE PT/INR (SCAN ORDER) (02/01/2024) 02/01/2024 us Doc Med Group Scanned SCANNING Final Resu lt documented in this encounter Visit Diagnoses Not on filedocumented in this encounter Care Teams Senior Specialist Relationship Specialty Start Date End Date Sanket Waldron DO [address] [place] [address] PCP - General FAMILY PRACTICE 05/26/23 documented as of this encounter
--- OUTSIDE RECORDS SUMMARY | 2024-04-01 07:31 | XMS_ITS | Encounter Summary ---
Author Organization [facility] Address [address] [place] [address]. [place] [address] [place] [address] Care Team Providers Care Home Restoration Service Supervisor Name Role Phone Sanket Waldron DO Primary Care Provider + Encounter Details Date Type Department Care Team (Latest Contact Info) Description 12/04/2023 Travel Social History Tobacco Use Types Packs/Day [...] st Contact Info) Description 05/30/2024 7:20 AM BAG MACHINE OPERATOR HELPER Laboratory Only [facility] Family & Internal Medicine [facility] [address] [place] [address] Sanket Waldron DO [address] [place] [address] 06/06/2024 11:40 AM BAG MACHINE OPERATOR HELPER Office Visit [facility] Family & Internal [facility] [address] [place] [address] Sanket Waldron DO [address] [place] [address] documented as of this encounter Visit Diagnoses Not on filedocumented in this encounter Care Teams Home Restoration Service Supervisor Relationship Specialty Start Date End Date Sanket Waldron DO [address] [place] [address] PCP - General FAMILY PRACTICE 05/26/23 documented as of this encounter
--- OUTSIDE RECORDS SUMMARY | 2024-04-01 07:31 | XMS_ITS | Encounter Summary ---
Author Organization [facility] Address [address] [place] [address]. [place], [place] [address] [place] [address] Care Team Providers Care Hospital Receptionist Name Role Phone Sanket Waldron DO Primary Care Provider + Reason for Referral * Consultation (Routine) - Authorized Specialty Diagnoses / Procedures Referred By Contac t Referred To Contact DERMATOLOGY Diagnoses Basal cell carcinoma of left cheek Procedures OFFICE/OUTPATIENT NEW LOW MDM 30-44 MINUTES OFFICE/OUTPT VISIT,NEW,LEVL IV OFFICE/OUTPT VISIT,NEW,LEVL V OFFICE/OUTPT VISIT,EST,LEVL III OFFICE/OUTPT VISIT,EST,LEVL IV OFFICE/OUTPT VISIT,EST,LEVL V Sanket Waldron, DO [address] [place] [address] Phone: tel: fax: Yasmani Keith MD [address] [place] [address] Phone: tel: fax: Referral ID Status Reason Start Date Expiration Date Visits Requested Visits Authorized [id number] Authorized Specialty Services 01/18/2024 08/10/2024 12 12 Scheduling Instructions Forefront dermatology Treatment date range:within the next 90 days. DX code: C44.319 CPT codes needed: 98315 x1 visit 76628 x25 visit 09795 x1 visit 68309 x2 visits 91238 x2 visits 93127 x4 visits 62988 x25 visits 77192 x5 visits G6001 x25 visits 35986 x5 visits Please fax to [phone] RINARY DENTIST Reason for Visit * Reason Onset Date Comments Referral 02/19/2024 Encounter Details Date Type Department Care Team (Late st Contact Info) Description 02/19/2024 Telephone [facility] Medical Group Family & Internal Medicine [facility] [address] [place] [address] Sanket Waldron DO [address] [place] [address] Referral Social History Tobacco Use Types Packs/Day [...] Progress Notes * Veronica Dick MA - 02/19/2024 12:54 PM CST Forefront dermatology sent fax stating the referral needs all of the CPT codes on referral to proceed with treatment. Treatment date range:within the next 90 days. DX code: C44.319 CPT codes needed: 63538 x1 visit 81652 x25 visit 65640 x1 visit 66173 x2 visits 83555 x2 visits 88439 x4 visits 24970 x25 visits 96812 x5 visits G6001 x25 visits 03704 x5 visits Please fax to [phone] RINARY DENTIST documented in this encounter Plan of Treatment Upcoming Encounters Date Type Department Care Team (Late st Contact Info) Description 05/30/2024 7:20 AM VETERINARY DENTIST Laboratory Only [facility] Family & Internal [address] [address] Sanket Waldron, [address] [place] [address] 06/06/2024 11:40 AM VETERINARY DENTIST Office Visit [facility] Internal [address] [address] Sanket Waldron, [address] [place] [address] Scheduled Referrals Name Type Priority Associated Diagnoses Orde r Schedule Ambulatory referral to Dermatology Referral Routine Basal cell carcinoma of left cheek Ordered: 02/19/2024 documented as of this encounter Visit Diagnoses Diagnosis Basal cell carcinoma of left cheek- Primary Basal cell carcinoma of skin of other and unspecified parts of face documented in this encounter Additional Health Concerns Assessment Noted Time PHQ-9 Depression Total Score: 0 02/03/20 24 2:27 PM CDT documented as of this encounter Care Teams Hospital Receptionist Relationship Specialty Start Date End Date Sanket Waldron DO [address] [place] [address] PCP - General FAMILY PRACTICE 05/26/23 documented as of this encounter
--- OUTSIDE RECORDS SUMMARY | 2024-04-01 07:31 | XMS_ITS | Encounter Summary ---
Author Organization [facility] Address [address] [place] [address]. [place], [place] [address] [place] [address] Care Team Providers Care Jewel Hole Gauger Name Role Phone Peterson Colindres DO Primary Care Provider + Reason for Referral * Physical Medicine (Routine) - Closed Specialty Diagnoses / Procedures Referred By Contac t Referred To Contact PHYSICAL THERAPY Diagnoses Presence of right artificial knee joint Muscle weakness (generalized) Limitation of joint motion of knee, right Procedures OFFICE/OUTPATIENT NEW LOW MDM 30-44 MINUTES OFFICE/OUTPT VISIT,NEW,LEVL IV OFFICE/OUTPT VISIT,NEW,LEVL V OFFICE/OUTPT VISIT,EST,LEVL III OFFICE/OUTPT VISIT,EST,LEVL IV OFFICE/OUTPT VISIT,EST,LEVL V Peterson Colindres DO [address] [place] [address] Phone: tel: fax: [facility] [address] Phone: tel: fax: Referral ID Status Reason Start Date Expiration Date V isits Requested Visits Authorized [id number] Closed Physical Therapy 06/29/2023 12/30/2023 56 56 Scheduling Instructions Is this a new consult:Yes. 's name: [facility] Adrien Camejo Specialty: PT Reason for referral (diagnosis): [id number] Appointment: 11/04/2023 Reason for Visit * Reason Onset Date Comments Referral 11/04/2023 Encounter Details Date Type Department Care Team (Late st Contact Info) Description 11/04/2023 Telephone [facility] Medical Group Family & Internal Medicine - [place] [address] [place] [phone] Peterson Colindres DO [address] [place], [place] [phone] Referral Social History Tobacco Use Types Packs/Day [...] Progress Notes * Veronica Dick MA - 11/05/2023 11:21 AM CDT Referral placed. * Peterson Colindres DO - 11/04/2023 3:40 PM CDT Yes, that's fine. * Veronica Dick MA - 11/04/2023 3:28 PM CDT Patient was referred last month (09/23/2023) and 24 visits authorized. Patient has appt on 11/24/2023. Are you ok with referral? * Veronica Rosenbaum - 11/04/2023 9:13 AM CDT The patient called for a referral to the following physician: Is this a new consult:Yes. Dr's name: [facility] Adrien Camejo Specialty: PT Reason for referral (diagnosis): [id number] Appointment: 11/04/2023 Last office visit at this office: Last visit with PETERSON COLINDRES in FAMILY PRACTICE was on: 05/26/2023 in [facility] Future appointment scheduled: Future Appointments Date Time Provider Department Center 11/24/2023 1:00 PM Peterson Colindres DO [facility] Referral for the next 5 visits documented in this encounter Plan of Treatment Upcoming Encounters Date Type Department Care Team (Late st Contact Info) Description 05/30/2024 7:20 AM MANAGER SURGERY Laboratory Only [facility] Family & Internal [place] [address] [place] [address] Peterson Colindres, DO [address] [place] [address] 06/06/2024 11:40 AM MANAGER SURGERY Office Visit [facility] Family & Internal [place] [address] [place] [address] Peterson Colindres, [address] [place] [address] Scheduled Referrals Name Type Priority Associated Diagnoses Orde r Schedule Ambulatory referral to Physical Therapy Referral Routine Presence of right artificial knee joint Muscle weakness (generalized) Limitation of joint motion of knee, right Ordered: 11/05/2023 documented as of this encounter Visit Diagnoses Diagnosis Presence of right artificial knee joint- Primary Knee joint replacement by other means Muscle weakness (generalized) Limitation of joint motion of knee, right documented in this encounter Care Teams Jewel Hole Gauger Relationship Specialty Start Date End Date Peterson Colindres DO [address] [place] [address] PCP - General FAMILY PRACTICE 05/26/23 documented as of this encounter
--- OUTSIDE RECORDS SUMMARY | 2024-04-01 07:31 | XMS_ITS | Encounter Summary ---
Author Organization [facility] Address [address] [place] [address]. [place], [place] [address] [place] [address] Care Team Providers Care Bulk Pallet Builder Name Role Phone Sanket Waldron DO Primary Care Provider + Reason for Visit * Reason Onset Date Comments Medication 02/15/2024 Encounter Details Date Type Department Care Team (Late st Contact Info) Description 02/15/2024 Startupxploret Message Enc [facility] Medical Group Family & Internal Medicine [facility] [address] [place] [address] Sanket Waldron DO [address] [place] [address] Gabapentin Social History Tobacco Use Types Packs/Day Years [...] Progress Notes * Veronica Harmon MA - 02/17/2024 3:20 PM CSTAddended by: VERONICA HARMON on: 02/17/2024 03:20 PM Modules accepted: Orders ERVATION ENFORCEMENT OFFICER * Sanket Waldron DO - 02/17/2024 12:44 PM CST Yes that's fine. ERVATION ENFORCEMENT OFFICER * Veronica Harmon MA - 02/16/2024 7:35 AM CST Patient advised via [employer]. ERVATION ENFORCEMENT OFFICER * Sanket Waldron DO - 02/15/2024 4:25 PM CST I'd recommend decreasing to 600 mg BID for one week, then 600 mg daily for one week, then 300 mg daily for one week, then 100 mg daily for one week, then stop. ERVATION ENFORCEMENT OFFICER documented in this encounter Plan of Treatment Upcoming Encounters Date Type Department Care Team (Late st Contact Info) Description 05/30/2024 7:20 AM CONSERVATION ENFORCEMENT OFFICER Laboratory Only [facility] Family & Internal Medicine [address] [phone] Sanket Waldron DO [address] [place] [address] 06/06/2024 11:40 AM CONSERVATION ENFORCEMENT OFFICER Office Visit [facility] Family & Internal [facility] [address] [place] [phone] Sanket Waldron DO [address] [place] [address] documented as of this encounter Visit Diagnoses Diagnosis Fibromyalgia Mylagia and myositis, unspecified documented in this encounter Additional Health Concerns Assessment Noted Time PHQ-9 Depression Total Score: 0 02/03/20 2:27 PM CDT documented as of this encounter Care Teams Bulk Pallet Builder Relationship Specialty Start Date End Date Sanket Waldron DO [address] [place] [address] PCP - General FAMILY PRACTICE 05/26/23 documented as of this encounter
--- OUTSIDE RECORDS SUMMARY | 2024-04-01 07:31 | XMS_ITS | Encounter Summary ---
Author Organization [facility] Address [address] [place] [address]. [place] [address] [place] [address] Care Team Providers Care Port Patrol Officer Name Role Phone Sanket Waldron DO Primary Care Provider + Reason for Visit * Reason Comments Procedure (SCAN) Encounter Details Date Type Department Care Team ([facility] Contact Info) Description 01/08/2024 Scan HEALTH INFO SRVCS Scanned, Doc Med Group Procedure (SCAN) Social History Tobacco Use Types Packs/Day [...] Upcoming Encounters Date Type Department Care Team ([facility] Contact Info) Description 05/30/2024 7:20 AM FARM APPRAISER Laboratory Only [facility] Family & Internal Medicine [address] [address] Sanket Waldron DO [address] [place] [address] 06/06/2024 11:40 AM FARM APPRAISER Office Visit [facility] Medicine [place] [address] [place] [address] Sanket Waldron DO [address] [place] [address] documented as of this encounter Procedures Procedure Name Priority Date/Time Associated Diagnosis Comments PROCEDURE GENERIC (SCAN ORDER) 01/08/2024 documented in this encounter Results * PROCEDURE GENERIC (SCAN ORDER) (01/08/2024) 01/08/2024 us Doc Med Group Scanned SCANNING Final Resu lt documented in this encounter Visit Diagnoses Not on filedocumented in this encounter Care Teams Port Patrol Officer Relationship Specialty Start Date End Date Sanket Waldron DO [address] [place] [address] PCP - General FAMILY PRACTICE 05/26/23 documented as of this encounter
--- OUTSIDE RECORDS SUMMARY | 2024-04-01 07:31 | XMS_ITS | Encounter Summary ---
Author Organization [facility] Address [address] [place] [address]. [place] [address] [place] [address] Care Team Providers Care Rotary Swaging Machine Operator Name Role Phone Sanket Waldron DO Primary Care Provider + Encounter Details Date Type Department Care Team (Late Contact Info) Description 11/16/2023 8:20 AM CDT Laboratory Only [facility] Family & Internal [address] [address] Sanket Waldron DO [address] [place], [place] [id number] Social History Tobacco Use Types Packs/Day Years [...] Encounters Date Type Department Care Team (Late Contact Info) Description 05/30/2024 7:20 AM ENERGY EFFICIENCY ENGINEER Laboratory Only [facility] Family & Internal [address] [address] Sanket Waldron DO [address] [place] [address] 06/06/2024 11:40 AM ENERGY EFFICIENCY ENGINEER Office Visit [facility] Medical Group Family & Internal Medicine - [place] [address] [place] [phone] KonstantinmaritzahermelindaSanket, DO [address] [place] [address] documented as of this encounter Procedures Procedure Name Priority Date/Time Associated Diagnosis Comments CBC W/DIFF AUTOMATED Routine 11/16/2023 8:13 AM CDT Anemia VENIPUNC ARM DRAW Routine 11/16/2023 8:0 7 AM CDT Anemia documented in this encounter Results * (ABNORMAL) CBC W/DIFF AUTOMATED (11/16/2023 8:13 AM CDT) WBC 5.51 4.00 - 10.80 x10'3/uL 11/16/2023 2:17 PM CDT [facility] RBC 3.92(L) 4.10 - 5.40 x10'6/uL 11/16/2023 2:17 PM CDT [facility] HGB 12.5 12.0 - 16.0 G/DL 11/16/2023 2:17 PM CDT [facility] HCT 38.3 36.0 - 47.0 % 11/16/2023 2:17 PM CDT [facility] MCV 97.7 78.0 - 100.0 FL 11/16/2023 2:17 PM CDT [facility] MCH 31.9(H) 27.0 - 31.0 PG 11/16/2023 2:17 PM CDT [facility] MCHC 32.6(L) 33.0 - 36.0 G/DL 11/16/2023 2:17 PM CDT [facility] RDW 13.8 11.5 - 14.5 % 11/16/2023 2:17 PM CDT [facility] PLT 268 150 - 350 x10'3/uL 11/16/2023 2:17 PM CDT [facility] MPV 11.1(H) 7.4 - 10.4 FL 11/16/2023 2:17 PM CDT [facility] DIFFERENTIAL TYPE AUTOMATED DIFFERENTIAL 11/16/2023 2:17 PM CDT [facility] NEUTROPHILS % 58.8 % 11/16/2023 2:17 PM CDT [facility] LYMPHOC[facility]TES % 24.9 % 11/16/2023 2:17 PM CDT [facility] MONOCYTES % 9.6 % 11/16/2023 2:17 PM CDT [facility] EOSINOPHILS % 5.6 % 11/16/2023 2:17 PM CDT [facility] BASOPHILS % 0.9 % 11/16/2023 2:17 PM CDT [facility] IMMATURE GRANS % 0.2 % 11/16/2023 2:17 PM CDT [facility] ABS. NEUTROPHILS 3.24 1.60 - 8.30 x10'3/uL 11/16/2023 2:17 PM CDT [facility] ABS. LYMPHOCYTES 1.37 0.80 - 4.70 x10'3/uL 11/16/2023 2:17 PM CDT [facility] ABS. MONOCYTES 0.53 0.00 - 1.50 x10'3/uL 11/16/2023 2:17 PM CDT [facility] ABS. EOSINOPHILS 0.31 0.00 - 0.40 x10'3/uL 11/16/2023 2:17 PM CDT [facility] ABS. BASOPHILS 0.05 0.00 - 0.20 x10'3/uL 11/16/2023 2:17 PM CDT [facility] ABS. IMMATURE GRANULOCYTES 0.01 0.00 - 0.03 x10'3/uL 11/16/2023 2:17 PM CDT -[facility] [place], [place] 11/16/2023 8:13 AM CDT Sanket Waldron DO LABORATORY Final Re sult [facility] [place], [place] [address] [place] [address], documented in this encounter Visit Diagnoses Diagnosis Anemia- Primary Anemia, unspecified documented in this encounter Care Teams Rotary Swaging Machine Operator Relationship Specialty Start Date End Date Sanket Waldron DO [address] [place] [address] PCP - General FAMILY PRACTICE 05/26/23 documented as of this encounter
--- OUTSIDE RECORDS SUMMARY | 2024-04-01 07:31 | XMS_ITS | Encounter Summary ---
Author Organization [facility] Address [address] [place] [address]. [place] [address] [place] [address] Care Team Providers Care Physician/Internist Name Role Phone Sanket Waldron DO Primary Care Provider + Reason for Visit * Reason Onset Date Comments Information 01/08/2024 Encounter Details Date Type Department Care Team (Late st Contact Info) Description 01/08/2024 Telephone [facility] Family & Internal Medicine [facility] [address] [place] [address] Sanket Waldron DO [address] [place] [address] Information Social History Tobacco Use Types Packs/Day Years [...] Progress Notes * Veronica Dick MA - 02/02/2024 7:33 AM CDT Please update referral to the corrected dates below. * Rosalio Pompa - 02/01/2024 3:59 PM CDT [facility] called today and stated that they need a referral with Dr. Waldron's name on it from August 31 through December 10, it should have Out Patient Physical Therapy, pls call and discuss with Tenisha [phone]. * Marilin Teixeira - 01/08/2024 10:45 AM CDT [facility] called in stating for patients DOS 09/01/23- [employer] is refusing to pay as the referral was placed as office visit not outpatient Physical Therapy. Asking for referral to beupdated. Referral reference number. [id number] needs to state outpatient PT documented in this encounter Plan of Treatment Upcoming Encounters Date Type Department Care Team (Late st Contact Info) Description 05/30/2024 7:20 AM CHRONIC MANAGER Laboratory Only [facility] Family & Internal [facility] [address] [place] [address] Sanket Waldron, DO [address] [place] [address] 06/06/2024 11:40 AM CHRONIC MANAGER Office Visit [facility] Family & Internal [facility] [address] [place] [address] Sanket Waldron, DO [address] [place] [address] documented as of this encounter Visit Diagnoses Not on filedocumented in this encounter Care Teams Physician/Internist Relationship Specialty Start Date End Date Sanket Waldron DO [address] [place] [address] PCP - General FAMILY PRACTICE 05/26/23 documented as of this encounter
--- OUTSIDE RECORDS SUMMARY | 2024-04-01 07:31 | XMS_ITS | Encounter Summary ---
Author Organization [facility] Address [address] [place] [address]. [place] [address] [place] [address] Care Team Providers Care Commercial Pest Control Technician Name Role Phone Sanket Waldron DO Primary Care Provider + Reason for Visit * Reason Onset Date Comments Pre-visit Gap Closure 11/23/2023 Encounter Details Date Type Department Care Team (Late st Contact Info) Description 11/23/2023 Patient Outreach [facility] Family & Internal Medicine [facility] [address] [place] [address] Sanket Waldron DO [address] [place], [place] [phone] Pre-visit Gap Closure Social History Tobacco Use Types Packs/Day Years [...] as of this encounter Progress Notes * Saúl Cody - 11/23/2023 2:47 PM CDT Preventive Screenings: Breast Cancer Screening: Up to Date Notes: 11/12/2023 Colorectal Cancer Screening: Up to Date Notes: 03/27/2022 Diabetic Eye Exam: N/A Notes: Falls Risk Screening: Up to Date Notes: 05/26/2023 Tobacco Cessation: N/A Notes: Labs: BMP/CMP: N/A Notes: Hemoglobin A1c: N/A Notes: Lipid: N/A Notes: Urine Albumin-Creatinine Ratio: N/A Notes: Immunizations: Pneumococcal: Up to Date Notes: Shingles: Up to Date Notes: documented in this encounter Plan of Treatment Upcoming Encounters Date Type Department Care Team (Late st Contact Info) Description 05/30/2024 7:20 AM HANDBAG FRAMER Laboratory Only [facility] Family & Internal [address] [address] Sanket Waldron DO [address] [place] [address] 06/06/2024 11:40 AM HANDBAG FRAMER Office Visit [facility] Family & Internal [address] [address] Sanket Waldron DO [address] [place] [address] documented as of this encounter Visit Diagnoses Not on filedocumented in this encounter Care Teams Commercial Pest Control Technician Relationship Specialty Start Date End Date Sanket Waldron DO [address] [place] [address] PCP - General FAMILY PRACTICE 05/26/23 documented as of this encounter
--- OUTSIDE RECORDS SUMMARY | 2024-04-01 07:31 | XMS_ITS | Encounter Summary ---
Author Organization [facility] Address [address] [place] [address]. [place] [address] [place] [address] Care Team Providers Care Picker / Packer Name Role Phone Sanket Waldron DO Primary Care Provider + Reason for Visit * Reason Comments Lab (SCAN) Encounter Details Date Type Department Care Team (Latest Contact Info) Description 09/10/2023 Scan HEALTH INFO SRVCS Scanned, Doc Med [...] st Contact Info) Description 05/30/2024 7:20 AM RECOOPERER Laboratory Only [facility] Family & Internal Medicine [place] [address] [place] [address] Sanket Waldron DO [address] [place] [address] 06/06/2024 11:40 AM RECOOPERER Office Visit [facility] Family & Internal Medicine [address] [address] Sanket Waldron DO [address] [place] [address] documented as of this encounter Procedures Procedure Name Priority Date/Time Associated Diagnosis Comments OUTSIDE PT/INR (SCAN ORDER) 09/10/2023 documented in this encounter Results * OUTSIDE PT/INR (SCAN ORDER) (09/10/2023) 09/10/2023 us Doc Med Group Scanned SCANNING Final Resu lt documented in this encounter Visit Diagnoses Not on filedocumented in this encounter Care Teams Picker / Packer Relationship Specialty Start Date End Date Sanket Waldron DO [address] [place] [address] PCP - General FAMILY PRACTICE 05/26/23 documented as of this encounter
--- OUTSIDE RECORDS SUMMARY | 2024-04-01 07:31 | XMS_ITS | Encounter Summary ---
Author Organization [facility] Address [address] [place] [address]. [place] [address] [place] [address] Care Team Providers Care Dining Service Supervisor Name Role Phone Sanket Waldron DO Primary Care Provider + Reason for Visit * Reason Onset Date Comments Information 02/22/2024 Encounter Details Date Type Department Care Team (Late st Contact Info) Description 02/22/2024 Telephone [facility] Medical [facility] Family & Internal Medicine [facility] [address] [place] [address] Sanket Waldron DO [address] [place] [address] Information Social History Tobacco Use [...] as of this encounter Progress Notes * Carolee Powell MA - 02/22/2024 3:47 PM CST PharmacistNakul, informed of recommendation and v/u. 02/22/2024 3:47 PM RIAL MOVER * Phillip Curtis MD - 02/22/2024 2:16 PM CST Aware of interaction, continue with Bactrim as prescribed. INR was elevated. RIAL MOVER * Marilin Teixeira - 02/22/2024 11:54 AM CST Pharmacy called in stating pt is on warfarin and was sent out Bactrim. Pharmacy wanting to know if Provider wanted to change to something different as Warfarin could become less effective while pt nargis Bactrim. Please advise. RIAL MOVER documented in this encounter Plan of Treatment Upcoming Encounters Date Type Department Care Team (Late st Contact Info) Description 05/30/2024 7:20 AM MATERIAL MOVER Laboratory Only [facility] Family & Internal [place] [address] [place] [address] Sanket Waldron DO [address] [place] [address] 06/06/2024 11:40 AM MATERIAL MOVER Office Visit [facility] Family & Internal [facility] [address] [place] [address] Sanket Waldron DO [address] [place] [address] documented as of this encounter Visit Diagnoses Not on filedocumented in this encounter Additional Health Concerns Assessment Noted Time PHQ-9 Depression Total Score: 0 10/23/20 24 2:27 PM CDT documented as of this encounter Care Teams Dining Service Supervisor Relationship Specialty Start Date End Date Sanket Waldron DO [address] [place] [address] PCP - General FAMILY PRACTICE 05/26/23 documented as of this encounter
--- OUTSIDE RECORDS SUMMARY | 2024-04-01 07:31 | XMS_ITS | Encounter Summary ---
Author Organization [facility] Address [address] [place] [address]. [place] [address] [place] [address] Care Team Providers Care Patients Transporter Name Role Phone Sanket Waldron DO Primary Care Provider + Reason for Visit * Reason Comments Lab (SCAN) Encounter Details Date Type Department Care Team (Latest Contact Info) Description 09/23/2023 Scan HEALTH INFO SRVCS Scanned, Doc Med [...] st Contact Info) Description 05/30/2024 7:20 AM FERMENTATION SCIENTIST Laboratory Only [facility] Family & Internal Medicine [place] [place] [address] Sanket Waldron DO [address] [place] [address] 06/06/2024 11:40 AM FERMENTATION SCIENTIST Office Visit [facility] Family & Internal Medicine [address] [address] Sanket Waldron DO [address] [place] [address] documented as of this encounter Procedures Procedure Name Priority Date/Time Associated Diagnosis Comments OUTSIDE PT/INR (SCAN ORDER) 09/23/2023 documented in this encounter Results * OUTSIDE PT/INR (SCAN ORDER) (09/23/2023) 09/23/2023 us Doc Med Group Scanned SCANNING Final Resu lt documented in this encounter Visit Diagnoses Not on filedocumented in this encounter Care Teams Patients Transporter Relationship Specialty Start Date End Date Sanket Waldron DO [address] [place] [address] PCP - General FAMILY PRACTICE 05/26/23 documented as of this encounter
--- OUTSIDE RECORDS SUMMARY | 2024-04-01 07:31 | XMS_ITS | Encounter Summary ---
Author Organization [facility] Address [address] [place] [address]. [place] [address] [place] [address] Care Team Providers Care Software Development Analyst Name Role Phone Sanket Waldron DO Primary Care Provider + Encounter Details Date Type Department Care Team (Late Contact Info) Description 08/04/2023 10:00 AM CDT Laboratory Only [facility] Family & Internal [address] [address] Sanket Waldron DO [address] [place], [place] [phone] Social History Tobacco Use Types Packs/Day Years [...] (Late Contact Info) Description 05/30/2024 7:20 AM IT AUDITOR Laboratory Only [facility] Family & Internal [address] [address] Sanket Waldron DO [address] [place] [address] 06/06/2024 11:40 AM IT AUDITOR Office Visit [facility] Medical Group Family & Internal Medicine - [place] [address] [place] [address] KonstantinSanket dolan, DO [address] [place] [address] documented as of this encounter Procedures Procedure Name Priority Date/Time Associated Diagnosis Comments VENIPUNC ARM DRAW Routine 08/04/2023 10: 18 AM CDT Elevated WBC count CBC W/DIFF AUTOMATED Routine 08/04/2023 10:18 AM CDT Elevated WBC count documented in this encounter Results * (ABNORMAL) CBC W/DIFF AUTOMATED (08/04/2023 10:18 AM CDT) WBC 6.36 4.00 - 10.80 x10'3/uL 08/04/2023 3:04 PM CDT [facility] RBC 4.39 4.10 - 5.40 x10'6/uL 08/04/2023 3:04 PM CDT -[facility] HGB 13.4 12.0 - 16.0 G/DL 08/04/2023 3:04 PM CDT -[facility] HCT 41.9 36.0 - 47.0 % 08/04/2023 3:04 PM CDT [facility] MCV 95.4 78.0 - 100.0 FL 08/04/2023 3:04 PM CDT [facility] MCH 30.5 27.0 - 31.0 PG 08/04/2023 3:04 PM CDT [facility] MCHC 32.0(L) 33.0 - 36.0 G/DL 08/04/2023 3:04 PM CDT [facility] RDW 13.2 11.5 - 14.5 % 08/04/2023 3:04 PM CDT [facility] PLT 297 150 - 350 x10'3/uL 08/04/2023 3:04 PM CDT [facility] MPV 10.9(H) 7.4 - 10.4 FL 08/04/2023 3:04 PM CDT [facility] DIFFERENTIAL TYPE AUTOMATED DIFFERENTIAL 08/04/2023 3:04 PM CDT [facility] NEUTROPHILS % 57.9 % 08/04/2023 3:04 PM CDT [facility] LYMPHOCYTES % 26.6 % 08/04/2023 3:04 PM CDT [facility] MONOCYTES % 10.1 % 08/04/2023 3:04 PM CDT [facility] EOSINOPHILS % 4.6 % 08/04/2023 3:04 PM CDT [facility] BASOPHILS % 0.8 % 08/04/2023 3:04 PM CDT [facility] IMMATURE GRANS % 0.0 % 08/04/2023 3:04 PM CDT [facility] ABS. NEUTROPHILS 3.69 1.60 - 8.30 x10'3/uL 08/04/2023 3:04 PM CDT [facility] ABS. LYMPHOCYTES 1.69 0.80 - 4.70 x10'3/uL 08/04/2023 3:04 PM CDT [facility] ABS. MONOCYTES 0.64 0.00 - 1.50 x10'3/uL 08/04/2023 3:04 PM CDT [facility] ABS. EOSINOPHILS 0.29 0.00 - 0.40 x10'3/uL 08/04/2023 3:04 PM CDT [facility] ABS. BASOPHILS 0.05 0.00 - 0.20 x10'3/uL 08/04/2023 3:04 PM CDT [facility] ABS. IMMATURE GRANULOCYTES 0.00 0.00 - 0.03 x10'3/uL 08/04/2023 3:04 PM CDT [facility] [place] 08/04/2023 10:1 8 AM CDT Sanket Waldron DO LABORATORY Final Re s[facility] [place] [address] [place] [address], documented in this encounter Visit Diagnoses Diagnosis Elevated WBC count Leukocytosis, unspecified documented in this encounter Care Teams Software Development Analyst Relationship Specialty Start Date End Date Sanket Waldron DO [address] [place] [address] PCP - General FAMILY PRACTICE 05/26/23 documented as of this encounter
--- OUTSIDE RECORDS SUMMARY | 2024-04-01 07:31 | XMS_ITS | Encounter Summary ---
Author Organization [facility] Address [address] [place] [address]. [place], [place] [address] [place] [address] Care Team Providers Care Imaging Scheduler Name Role Phone Sanket Waldron Yuan THOMPSON Primary Care Provider + Reason for Visit * Reason Comments Lab (SCAN) Encounter Details Date Type Department Care Team (Latest Contact Info) Description 03/14/2024 Scan HEALTH INFO SRVCS Scanned, Doc Med [...] ( Contact Info) Description 05/30/2024 7:20 AM FORKLIFT MATERIAL HANDLER Laboratory Only [facility] Family & Internal Medicine [address] [address] Sanket Waldron DO [address] [place] [address] 06/06/2024 11:40 AM FORKLIFT MATERIAL HANDLER Office Visit [facility] Family & Internal Medicine - [place] [address] [place] [address] Sanket Waldron DO [address] [place] [address] documented as of this encounter Procedures Procedure Name Priority Date/Time Associated Diagnosis Comments OUTSIDE PT/INR (SCAN ORDER) 03/14/2024 documented in this encounter Results * OUTSIDE PT/INR (SCAN ORDER) (03/14/2024) 03/14/2024 us Doc Med Group Scanned SCANNING Final Resu lt documented in this encounter Visit Diagnoses Not on filedocumented in this encounter Additional Health Concerns Assessment Noted Time PHQ-9 Depression Total Score: 0 02/03/20 24 2:27 PM CDT documented as of this encounter Care Teams Imaging Scheduler Relationship Specialty Start Date End Date Sanket Waldron DO [address] [place] [address] PCP - General FAMILY PRACTICE 05/26/23 documented as of this encounter
--- OUTSIDE RECORDS SUMMARY | 2024-04-01 07:31 | XMS_ITS | Encounter Summary ---
Author Organization [facility] Address [address] [place] [address]. [place], [place] [address] [place] [address] Care Team Providers Care International Marketing Specialist Name Role Phone Sanket Waldron DO Primary Care Provider + Reason for Referral * Consultation (Routine) - Authorized Specialty Diagnoses / Procedures Referred By Contac t Referred To Contact HEART & VASCULAR CARE Diagnoses H/O mechanical aortic valve replacement Procedures OFFICE/OUTPATIENT NEW LOW MDM 30-44 MINUTES OFFICE/OUTPT VISIT,NEW,LEVL IV OFFICE/OUTPT VISIT,NEW,LEVL V OFFICE/OUTPT VISIT,EST,LEVL III OFFICE/OUTPT VISIT,EST,LEVL IV OFFICE/OUTPT VISIT,EST,[place] [address] [place] [address] Phone: tel: fax: Rachel Fan NP [address] [facility] [address] [place] [address] Phone: tel: fax: Referral ID Status Reason Start Date Expiration Date Visits Requested Visits Authorized [id number] Authorized Specialty Services 12/10/2023 12/09/2024 12 12 Reason for Visit * Reason Comments Hyperlipidemia 6 month follow up. Encounter Details Date Type Department Care Team (Latest Contact Info) Description 12/04/2023 10:00 AM CDT Office Visit [facility] Family & Internal Medicine - [address] [address] Sanket Waldron DO [facility] [place] [address] Hyperlipidemia (6 month follow up. ) Social History Tobacco Use Types Packs/Day Years [...] Sign Reading Time Taken Comments Blood Pressure 122/60 12/04/2023 10:15 AM CDT Pulse 55 12/04/2023 10:15 AM CDT Temperature 36.7 ??C (98.1 ??F) 12/04/2023 10:15 AM C DT Respiratory Rate 16 12/04/2023 10:15 AM CDT Oxygen Saturation 95% 12/04/2023 10:15 AM CDT Inhaled Oxygen Concentration - - Weight 57.7 kg (127 lb 3.2 oz) 12/04/2023 10:15 AM CDT Height 153.7 cm (5' 0.5 ) 12/04/2023 10:15 AM CD T Body Mass Index 24.43 12/04/2023 10:15 AM CDT documented in this encounter Progress Notes * Sanket Waldron DO - 12/04/2023 10:00 AM CDT Images from the original note were not included. GENERAL OFFICE VISIT Encounter Date: 12/04/2023 Chief Complaint: 68-year-old female presents for Hyperlipidemia (6 month follow up. ) HPI: Pt had repeat CBC recently. No visits with results within 1 Day(s) from this visit. Latest known visit with results is: Laboratory Only on 11/16/2023 Component Date Value Ref Range Status WBC 11/16/2023 5.51 4.00 - 10.80 x10'3/uL Final RBC 11/16/2023 3.92 (L) 4.10 - 5.40 x10'6/uL Final HGB 11/16/2023 12.5 12.0 - 16.0 G/DL Final HCT 11/16/2023 38.3 36.0 - 47.0 % Final MCV 11/16/2023 97.7 78.0 - 100.0 FL Final MCH 11/16/2023 31.9 (H) 27.0 - 31.0 PG Final MCHC 11/16/2023 32.6 (L) 33.0 - 36.0 G/DL Final RDW 11/16/2023 13.8 11.5 - 14.5 % Final PLT 11/16/2023 268 150 - 350 x10'3/uL Final MPV 11/16/2023 11.1 (H) 7.4 - 10.4 FL Final DIFFERENTIAL TYPE 11/16/2023 AUTOMATED DIFFERENTIAL Final NEUTROPHILS % 11/16/2023 58.8 % Final LYMPHOCYTES % 11/16/2023 24.9 % Final MONOCYTES % 11/16/2023 9.6 % Final EOSINOPHILS % 11/16/2023 5.6 % Final BASOPHILS % 11/16/2023 0.9 % Final IMMATURE GRANS % 11/16/2023 0.2 % Final ABS. NEUTROPHILS 11/16/2023 3.24 1.60 - 8.30 x10'3/uL Final ABS. LYMPHOCYTES 11/16/2023 1.37 0.80 - 4.70 x10'3/uL Final ABS. MONOCYTES 11/16/2023 0.53 0.00 - 1.50 x10'3/uL Final ABS. EOSINOPHILS 11/16/2023 0.31 0.00 - 0.40 x10'3/uL Final ABS. BASOPHILS 11/16/2023 0.05 0.00 - 0.20 x10'3/uL Final ABS. IMMATURE GRANULOCYTES 11/16/2023 0.01 0.00 - 0.03 x10'3/uL Final Within acceptable limits. Pt had a joint replacement of the knee on the right side since last OV. Pt had this done with Dr. Camejo. Pt is doing physical therapy. Pt is asking to have gabapentin increased today for pain. Pt has osteopenia based upon previous DEXA results from 11/12/23. Calculated FRAX score today is not high enough to indicate need for bisphosphonate treatment. Pt is s/p mechanical aortic valve replacement. Pt has been seeing Rachel Fan NP going forward.Pt is warfarin and has this checked through them. Pt is stable at this time. Patient presents for follow-up on HLD. Patient has had HLD for multiple years. Current medications include atorvastatin. Current side effects include none. Patient does not need labs drawn today. Review of Systems Constitutional: Negative for fever. Respiratory: Negative for shortness of breath. Cardiovascular: Negative for chest pain. Gastrointestinal: Negative for abdominal pain. Musculoskeletal: See HPI All other systems reviewed and are negative. Patient Active Problem List Diagnosis Bicuspid aortic valve (HHS/HCC) Mixed hyperlipidemia Chronic anticoagulation H/O mechanical aortic valve replacement Bilateral primary osteoarthritis of knee Mild intermittent asthma without complication (HHS/HCC) Fibromyalgia Past Medical History: Diagnosis Date Arthritis 1985 Asthma (HHS/HCC) 1960 Bilateral carpal tunnel syndrome [...] Spouse name: Vipul Number of children: 2 Years of education: Not on file Highest education level: Not on file Occupational History Not on file Tobacco Use Smoking status: Former Current packs/day: 0.00 Types: Cigarettes Smokeless tobacco: Never Tobacco comments: Smoked occasionally for 3 months in mid 70's Vaping Use Vaping status: Never Used Substance and Sexual Activity Alcohol use: Not Currently Comment: Occasional wine or daiquiri Drug use: Never Sexual activity: Not Currently control/protection: Post-menopausal Other Topics Concern Not on file Social History Narrative Not on file Social Determinants of Health Financial Resource Strain: Not on file Food Insecurity: Not on file Transportation Needs: Not on file Physical Activity: Not on file Stress: Not on file Social Connections: Not on file Intimate Partner Violence: Not on file Housing Stability: Not on file Immunization History Administered Date(s) Administered Arexvy Respiratory Syncytial Virus (RSV, adjuvanted) 0.5 mL, PF 06/02/2023 Fluzone High Dose - >Age 65 (Prefilled Syringe) 01/24/2023 Influenza (Generic) 01/19/2013, 01/15/2015 Influenza Adult (Generic) 01/28/2016, 01/24/2018, 01/24/2019, 12/31/2019, 01/22/2021, 01/04/2022 PFIZER COVID-19 (12+) MRNA, LNP-S, PF, YORDY-SUCROSE, 30 MCG/0.3 ML (COMIRNATY 2022) 06/02/2023 PFIZER COVID-19 (ORIGINAL FORMULATION, PURPLE CAP) mRNA, LNP-S, PF, 30 MCG/0.3 ML DOSE 06/07/2020, 06/28/2020, 03/23/2021 Pneumococcal (Prevnar 20) 01/24/2023 Shingrix 08/26/2018, 11/08/2018 Td (TDVAX) 01/28/2016 Tdap (Generic) 10/29/2012, 11/17/2018 Current Outpatient Medications Medication Sig Dispense Refill [...] times daily asneeded (Pain). 270 tablet 1 hypromellose (ISOPTO TEARS) 0.5 % ophthalmic solution Apply 1 drop to eye. latanoprost (XALATAN) 0.005 % ophthalmic solution INSTILL 1 DROP INTO RIGHT EYE AT BEDTIME Magnesium Oxide 400 MG Cap Take 1 tablet by mouth daily. Saline (OCEAN NASAL SPRAY NA) warfarin (COUMADIN) 2 MG tablet Take 2 tablets (4 mg total) by mouth daily. No current facility-administered medications for this visit. Current Outpatient Medications on File Prior to Visit Medication Sig amoxicillin (AMOXIL) 500 MG capsule Ascorbic Acid (VITAMIN C) 250 MG Chew Tab aspirin EC (ECOTRIN) 81 MG tablet Take 1 tablet (81 mg total) by mouth daily. atorvastatin (LIPITOR) 20 MG tablet Take 1 tablet (20 mg total) by mouth daily. calcium carb-cholecalciferol (CALTRATE+D) 600-10 MG-MCG Tab tablet Take 1 tablet by mouth daily. Cyanocobalamin (B-12) 1000 MCG Tab hypromellose (ISOPTO TEARS) 0.5 % ophthalmic solution Apply 1 drop to eye. latanoprost (XALATAN) 0.005 % ophthalmic solution INSTILL 1 DROP INTO RIGHT EYE AT BEDTIME Magnesium Oxide 400 MG Cap Take 1 tablet by mouth daily. Saline (OCEAN NASAL SPRAY NA) warfarin (COUMADIN) 2 MG tablet Take 2 tablets (4 mg total) by mouth daily. No current facility-administered medications on file prior to visit. Review of patient's allergies indicates: Allergen Reactions Pregabalin Rash and Unknown Methylprednisolone Joint Pain and Leg Pain Molnupiravir Rash Objective: Filed Vitals: 12/04/23 1015 BP: 122/60 Pulse: (!) 55 Resp: 16 Temp: 98.1 ??F (36.7 ??C) TempSrc: Skin SpO2: 95% Weight: 57.7 kg (127 lb 3.2 oz) Height: 1.537 m (5' 0.5 ) Physical Exam Vitals and nursing note reviewed. HENT: Head: Normocephalic and atraumatic. Right Ear: External ear normal. Left Ear: External ear normal. Eyes: Conjunctiva/sclera: Conjunctivae normal. Cardiovascular: Rate and Rhythm: Normal rate and regular rhythm. Heart sounds: Normal heart sounds. No murmur heard. No friction rub. No gallop. Pulmonary: Effort: Pulmonary effort is normal. No respiratory distress. Breath sounds: Normal breath sounds. No wheezing or rales. Abdominal: Palpations: Abdomen is soft. Tenderness: There is no abdominal tenderness. Neurological: General: No focal deficit present. Mental Status: She is alert. Psychiatric: Mood and Affect: Mood normal. Assessment & Plan: Yessy was seen today for hyperlipidemia. Diagnoses and all orders for this visit: Hyperlipidemia, unspecified hyperlipidemia type - CBC W/DIFF AUTOMATED; Future - COMPREHENSIVE METABOLIC PANEL; Future - TSH W/REFLEX; Future - LIPID PANEL; Future - VITAMIN D, 25 OH; Future Osteopenia of multiple sites - CBC W/DIFF AUTOMATED; Future - COMPREHENSIVE METABOLIC PANEL; Future - TSH W/REFLEX; Future - LIPID PANEL; Future - VITAMIN D, 25 OH; Future H/O mechanical aortic valve replacement - Ambulatory referral to Cardiology, Adult (OTHER) Bilateral primary osteoarthritis of knee Other chronic pain Fibromyalgia - gabapentin (NEURONTIN) 600 MG tablet; Take 1 tablet (600 mg total) by mouth 3 (three) times dailyas needed (Pain). Mild intermittent asthma without complication (HHS/HCC) - albuterol sulfate HFA 108 (90 Base) MCG/ACT inhaler; Inhale 2 puffs into the lungs every 6 (six) hours as needed. Discussion/Summary: Continue atorvastatin; stable. Will repeat labs as per above prior to next OV in 6 months. Can repeat CBC with next set of labs. F/u with all specialists as recommended including cardiology and orthopedics. Can treat conservatively for osteopenia. Recommend conservative management with Vitamin D Supplementation of 1000 IU if not already taking Vitamin D, Calcium Supplementation of 1200 mg if not already consuming dairy products, and Anaerobic exercise (weight lifting) three times weekly. Will increase gabapentin today. Will have pt f/u in 6 months or sooner if needed. Pt v/u. Sanket Waldron DO documented in this encounter Plan of Treatment Upcoming Encounters Date Type Department Care Team (Late st Contact Info) Description 05/30/2024 7:20 AM CEMENTER MACHINE JOINER Laboratory Only [facility] Family & Internal Medicine [address] [address] Sanket Waldron DO [address] [place] [address] 06/06/2024 11:40 AM CEMENTER MACHINE JOINER Office Visit [facility] Family & Internal Medicine - [place] [address] [place] [address] Sanket Waldron DO [address] [place] [address] Scheduled Orders Name Type Priority Associated Diagnoses Orde r Schedule CBC W/DIFF AUTOMATED Lab Routine Hyperlipidemia, unspecified hyperlipidemia type Osteopenia of multiple sites Expected: 04/13/2024, Expires: 12/03/2024 COMPREHENSIVE METABOLIC PANEL Lab Routine Hyperlipidemia, unspecified hyperlipidemia type Osteopenia of multiple sites Expected: 04/13/2024, Expires: 12/03/2024 TSH W/REFLEX Lab Routine Hyperlipidemia, unspecified hyperlipidemia type Osteopenia of multiple sites Expected: 04/13/2024, Expires: 12/03/2024 LIPID PANEL Lab Routine Hyperlipidemia, unspecified hyperlipidemia type Osteopenia of multiple sites Expected: 04/13/2024, Expires: 12/03/2024 VITAMIN D, 25 OH Lab Routine Hyperlipidemia, unspecified hyperlipidemia type Osteopenia of multiple sites Expected: 04/13/2024, Expires: 12/03/2024 Scheduled Referrals Name Type Priority Associated Diagnoses Orde r Schedule Ambulatory referral to Cardiology, Adult (OTHER) Referral Routine H/O mechanical aortic valve replacement Ordered: 12/04/2023 documented as of this encounter Visit Diagnoses Diagnosis Hyperlipidemia, unspecified hyperlipidemia type- Primary Osteopenia of multiple sites H/O mechanical aortic valve replacement Heart valve replaced by other means Bilateral primary osteoarthritis of knee Other chronic pain Fibromyalgia Mylagia and myositis, unspecified Mild intermittent asthma without complication (HHS/HCC) Unspecified asthma documented in this encounter Care Teams International Marketing Specialist Relationship Specialty Start Date End Date Sanket Waldron DO [facility] [place] [address] PCP - General FAMILY PRACTICE 05/26/23 documented as of this encounter
--- OUTSIDE RECORDS SUMMARY | 2024-04-01 07:31 | XMS_ITS | Encounter Summary ---
Author Organization [facility] Address [address] [place] [address]. [place] [address] [place] [address] Care Team Providers Care Sales Center Associate Name Role Phone Peterson Colindres DO Primary Care Provider + Reason for Visit * Reason Onset Date Comments Referral 01/22/2024 Encounter Details Date Type Department Care Team (Late st Contact Info) Description 01/22/2024 Telephone [facility] Family & Internal Medicine [facility] [address] [place] [address] Peterson Colindres DO [address] [place] [address] Referral Social History Tobacco Use [...] Progress Notes * Veronica Dick MA - 01/26/2024 11:18 AM CDT Referral was placed on 01/18/2024 * Veronica Mariely Rosenbaum - 01/22/2024 2:29 PM CDT The patient called for a referral to the following physician: Is this a new consult:Yes. 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 Appointment: 01/27/2024 Last office visit at this office: Last visit with PETERSON COLINDRES in FAMILY PRACTICE was on: 12/04/2023 in [facility] Future appointment scheduled: Future Appointments Date Time Provider Department Center 05/30/2024 7:20 AM [id number] 06/06/2024 11:40 AM Peterson Colindres DO [id number] [employer] documented in this encounter Plan of Treatment Upcoming Encounters Date Type Department Care Team (Late st [facility] Info) Description 05/30/2024 7:20 AM TOBACCO ROLLER Laboratory Only [facility] Family & Internal Medicine [facility] [address] [place] [address] [place] [address] [place] [address] 06/06/2024 11:40 AM TOBACCO ROLLER Office Visit [facility] Family & Internal [facility] [address] [place] [address] Peterson Colindres DO [address] [place] [address] documented as of this encounter Visit Diagnoses Not on filedocumented in this encounter Care Teams Sales Center Associate Relationship Specialty Start Date End Date Peterson Colindres DO [facility] [place] [place] [address] PCP - General FAMILY PRACTICE 05/26/23 documented as of this encounter
--- OUTSIDE RECORDS SUMMARY | 2024-04-01 07:31 | XMS_ITS | Encounter Summary ---
Author Organization [facility] Address [address] [place] [address]. [place] [address] [place] [address] Care Team Providers Care Irradiated Fuel Handler Name Role Phone Sanket Waldron DO Primary Care Provider + Reason for Visit * Reason Comments Lab (SCAN) Encounter Details Date Type Department Care Team (Latest Contact Info) Description 08/31/2023 Scan HEALTH INFO SRVCS Scanned, Doc Med [...] st Contact Info) Description 05/30/2024 7:20 AM RESORT KEEPER Laboratory Only [facility] Family & Internal Medicine [place] [address] [place] [address] Sanket Waldron DO [address] [place] [address] 06/06/2024 11:40 AM RESORT KEEPER Office Visit [facility] Family & Internal Medicine [address] [address] Sanket Waldron DO [address] [place] [address] documented as of this encounter Procedures Procedure Name Priority Date/Time Associated Diagnosis Comments OUTSIDE PT/INR (SCAN ORDER) 08/31/2023 documented in this encounter Results * OUTSIDE PT/INR (SCAN ORDER) (08/31/2023) 08/31/2023 us Doc Med Group Scanned SCANNING Final Resu lt documented in this encounter Visit Diagnoses Not on filedocumented in this encounter Care Teams Irradiated Fuel Handler Relationship Specialty Start Date End Date Sanket Waldron DO [address] [place] [address] PCP - General FAMILY PRACTICE 05/26/23 documented as of this encounter
--- OUTSIDE RECORDS SUMMARY | 2024-04-01 07:31 | XMS_ITS | Encounter Summary ---
Author Organization [facility] Address [address] [place] [address]. [place] [address] [place] [address] Care Team Providers Care Office Copy Selector Name Role Phone Sanket Waldron DO Primary Care Provider + Encounter Details Date Type Department Care Team (Latest Contact Info) Description 11/16/2023 Travel Social History Tobacco Use Types Packs/Day [...] st Contact Info) Description 05/30/2024 7:20 AM AUTOMATIC FANCY MACHINE OPERATOR Laboratory Only [facility] Family & Internal Medicine [facility] [address] [place] [address] Sanket Waldron DO [address] [place] [address] 06/06/2024 11:40 AM AUTOMATIC FANCY MACHINE OPERATOR Office Visit [facility] Family & Internal [facility] [address] [place] [address] Sanket Waldron DO [address] [place] [address] documented as of this encounter Visit Diagnoses Not on filedocumented in this encounter Care Teams Office Copy Selector Relationship Specialty Start Date End Date Sanket Waldron DO [address] [place] [address] PCP - General FAMILY PRACTICE 05/26/23 documented as of this encounter
--- OUTSIDE RECORDS SUMMARY | 2024-04-01 07:31 | XMS_ITS | Encounter Summary ---
Author Organization [facility] Address [address] [place] [address]. [place] [address] [place] [address] Care Team Providers Care Sensitometrist Name Role Phone Sanket Waldron DO Primary Care Provider + Reason for Visit * Reason Comments Bone Density Report (SCAN) Mammogram (SCAN) Encounter Details Date Type Department Care Team (Late Contact Info) Description 11/12/2023 Scan HEALTH INFO SRVCS Scanned, Doc Med Group Bone Density Report (SCAN); Mammogram (SCAN) Social History Tobacco Use Types Packs/Day [...] (Late Contact Info) Description 05/30/2024 7:20 AM SLAB LIFTING SUPERVISOR Laboratory Only [facility] Family & Internal Medicine [address] [address] Sanket Waldron DO [address] [place] [address] 06/06/2024 11:40 AM SLAB LIFTING SUPERVISOR Office Visit [facility] Family & Internal Medicine - [place] [address] [place] [address] Sanket Waldron DO [address] [place] [address] documented as of this encounter Procedures Procedure Name Priority Date/Time Associated Diagnosis Comments BONE DENSITY GENERIC (SCAN ORDER) 11/12/2023 MAMMOGRAM GENERIC (SCAN ORDER) 11/12/2023 documented in this encounter Results * MAMMOGRAM GENERIC (SCAN ORDER) (11/12/2023) Anatomical Region Laterality Modality Other 11/12/2023 us Doc Med Group Scanned SCANNING Final Resu lt * BONE DENSITY GENERIC (SCAN ORDER) (11/12/2023) Anatomical Region Laterality Modality Other 11/12/2023 us Doc Med Group Scanned SCANNING Final Resu lt documented in this encounter Visit Diagnoses Not on filedocumented in this encounter Care Teams Sensitometrist Relationship Specialty Start Date End Date Sanket Waldron DO [address] [place] [address] PCP - General FAMILY PRACTICE 05/26/23 documented as of this encounter
--- OUTSIDE RECORDS SUMMARY | 2024-04-01 07:31 | XMS_ITS | Encounter Summary ---
Author Organization [facility] Address [address] [place] [address]. [place] [address] [place] [address] Care Team Providers Care Circuit Designer Name Role Phone Sanket Waldron DO Primary Care Provider + Reason for Visit * Reason Comments Lab (SCAN) Encounter Details Date Type Department Care Team (Latest Contact Info) Description 09/18/2023 Scan HEALTH INFO SRVCS Scanned, Doc Med [...] st Contact Info) Description 05/30/2024 7:20 AM CONSTRUCTION MANAGER Laboratory Only [facility] Family & Internal Medicine [place] [address] [place] [address] Sanket Waldron DO [address] [place] [address] 06/06/2024 11:40 AM CONSTRUCTION MANAGER Office Visit [facility] Family & Internal Medicine [address] [address] Sanket Waldron DO [address] [place] [address] documented as of this encounter Procedures Procedure Name Priority Date/Time Associated Diagnosis Comments OUTSIDE PT/INR (SCAN ORDER) 09/18/2023 documented in this encounter Results * OUTSIDE PT/INR (SCAN ORDER) (09/18/2023) 09/18/2023 us Doc Med Group Scanned SCANNING Final Resu lt documented in this encounter Visit Diagnoses Not on filedocumented in this encounter Care Teams Circuit Designer Relationship Specialty Start Date End Date Sanket Waldron DO [address] [place] [address] PCP - General FAMILY PRACTICE 05/26/23 documented as of this encounter
--- OUTSIDE RECORDS SUMMARY | 2024-04-01 07:31 | XMS_ITS | Encounter Summary ---
Author Organization [facility] Address [address] [place] [address]. [place], [place] [address] [place] [address] Care Team Providers Care Team Psychologist Name Role Phone Peterson Colindres DO Primary Care Provider + Reason for Visit * Reason Onset Date Comments Lab Order 11/12/2023 Encounter Details Date Type Department Care Team (Late st Contact Info) Description 11/12/2023 Telephone [facility] Family & Internal Medicine [facility] [address] [place] [phone] Peterson Colindres DO [address] [place] [address] Lab Order Social History Tobacco Use Types Packs/Day Years [...] as of this encounter Progress Notes * Peterson Colindres DO - 11/12/2023 4:21 PM CDTAddended by: PETERSON COLINDRES on: 11/12/2023 04:21 PM Modules accepted: Orders * Peterson Colindres DO - 11/12/2023 4:19 PM CDT I did not have any labs I intended to recheck at this OV. Pt did have anemia following her right total knee replacement. This likely improved, but reasonable to recheck a CBC to ensure it has improved. * Jena Gonzalez MA - 11/12/2023 3:27 PM CDT Pt has appt 11/16/23 that she made for labs on 11/10/23, she believes its for you. There are no outstanding orders. When she had labs in May you wanted her to repeat her CBC in 2-3 months, but she already did that. Do you see any reason for her to have any additional labs? documented in this encounter Plan of Treatment Upcoming Encounters Date Type Department Care Team (Late st Contact Info) Description 05/30/2024 7:20 AM MERCHANDISE ASSOCIATE Laboratory Only [facility] Family & Internal [place] [address] [place] [address] Peterson oClindres DO [address] [place] [address] 06/06/2024 11:40 AM MERCHANDISE ASSOCIATE Office Visit [facility] Family & Internal [facility] [address] [place] [address] Peterson Colindres DO [address] [place] [address] documented as of this encounter Visit Diagnoses Not on filedocumented in this encounter Care Teams Team Psychologist Relationship Specialty Start Date End Date Peterson Colindres DO [address] [place] [address] PCP - General FAMILY PRACTICE 05/26/23 documented as of this encounter
--- OUTSIDE RECORDS SUMMARY | 2024-04-01 07:31 | XMS_ITS | Encounter Summary ---
Author Organization [facility] Address [address] [place] [address]. [place] [address] [place] [address] Care Team Providers Care Farm Boss Name Role Phone Sanket Wadlron DO Primary Care Provider + Reason for Visit * Reason Comments Lab (SCAN) Encounter Details Date Type Department Care Team (Latest Contact Info) Description 09/14/2023 Scan HEALTH INFO SRVCS Scanned, Doc Med [...] Contact Info) Description 05/30/2024 7:20 AM SENIOR SALES OPERATIONS MANAGER Laboratory Only [facility] Family & Internal Medicine [place] [place] [address] Sanket Waldron DO [address] [place] [address] 06/06/2024 11:40 AM SENIOR SALES OPERATIONS MANAGER Office Visit [facility] Family & Internal Medicine [address] [address] Sanket Waldron DO [address] [place] [address] documented as of this encounter Procedures Procedure Name Priority Date/Time Associated Diagnosis Comments OUTSIDE PT/INR (SCAN ORDER) 09/14/2023 documented in this encounter Results * OUTSIDE PT/INR (SCAN ORDER) (09/14/2023) 09/14/2023 us [facility] Scanned SCANNING Final Resu lt documented in this encounter Visit Diagnoses Not on filedocumented in this encounter Care Teams Farm Boss Relationship Specialty Start Date End Date Sanket Waldron DO [address] [place] [address] PCP - General FAMILY PRACTICE 05/26/23 documented as of this encounter
--- OUTSIDE RECORDS SUMMARY | 2024-04-01 07:31 | XMS_ITS | Encounter Summary ---
Author Organization [facility] Address [address] [place] [address]. [place] [address] [place] [address] Care Team Providers Care Technical Applications Specialist Name Role Phone Sanket Waldron DO Primary Care Provider + Reason for Visit * Reason Comments Lab (SCAN) Encounter Details Date Type Department Care Team (Latest Contact Info) Description 07/20/2023 Scan HEALTH INFO SRVCS Scanned, Doc Med [...] st Contact Info) Description 05/30/2024 7:20 AM DOLL WIG HACKLER Laboratory Only [facility] Family & Internal Medicine [place] [place] [address] Sanket Waldron DO [address] [place] [address] 06/06/2024 11:40 AM DOLL WIG HACKLER Office Visit [facility] Family & Internal Medicine [address] [address] Sanket Waldron DO [address] [place] [address] documented as of this encounter Procedures Procedure Name Priority Date/Time Associated Diagnosis Comments OUTSIDE PT/INR (SCAN ORDER) 07/20/2023 OUTSIDE PT/INR (SCAN ORDER) 07/20/2023 documented in this encounter Results * OUTSIDE PT/INR (SCAN ORDER) (07/20/2023) 07/20/2023 [facility] Scanned SCANNING Final Resu lt * OUTSIDE PT/INR (SCAN ORDER) (07/20/2023) 07/20/2023 us [employer] [facility] Scanned SCANNING Final Resu lt documented in this encounter Visit Diagnoses Not on filedocumented in this encounter Care Teams Technical Applications Specialist Relationship Specialty Start Date End Date Sanket Waldron DO [address] [place] [address] PCP - General FAMILY PRACTICE 05/26/23 documented as of this encounter
--- OUTSIDE RECORDS SUMMARY | 2024-04-01 07:31 | XMS_ITS | Encounter Summary ---
Author Organization [facility] Address [address] [place] [address]. [place], [place] [address] [place] [address] Care Team Providers Care Talent Coordinator Name Role Phone Sanket Waldron DO Primary Care Provider + Reason for Referral * Consultation (Urgent) - Authorized Specialty Diagnoses / Procedures Referred By Contac t Referred To Contact OTOLARYNGOLOGY Diagnoses Epistaxis Procedures OFFICE/OUTPATIENT NEW LOW MDM 30-44 MINUTES OFFICE/OUTPT VISIT,NEW,LEVL IV OFFICE/OUTPT VISIT,NEW,LEVL V OFFICE/OUTPT VISIT,EST,LEVL III OFFICE/OUTPT VISIT,EST,LEVL IV OFFICE/OUTPT VISIT,EST,LEVL V Sanket Waldron DO [address] [place] [address] Phone: tel: fax: Sky Nicole MD [address] [place] [address] Phone: tel: fax: Referral ID Status Reason Start Date Expiration Date V isits Requested Visits Authorized [id number] Authorized 03/30/2024 09/27/2024 6 6 Scheduling Instructions Patient has an appointment in 04/01/[address] Sky Nicole GE PIPEMAN Encounter Details Date Type Department Care Team (Late st Contact Info) Description 03/28/2024 Wellbehart Message Enc [facility] Family & Internal Medicine [id number] [place] [address] Sanket Waldron DO [address] [place] [address] Referral for ENT Social History Tobacco Use Types Packs/Day Years [...] Progress Notes * Huma Hawkins RN - 03/30/2024 8:17 AM CST Referral placed. Opportunity given for all questions to be answered, no further needs voiced at this time. LL-03/30/24 GE PIPEMAN * Sanket Waldron DO - 03/28/2024 2:02 PM CST Needs referral placed as urgent. GE PIPEMAN documented in this encounter Plan of Treatment Upcoming Encounters Date Type Department Care Team (Late st Contact Info) Description 05/30/2024 7:20 AM DREDGE PIPEMAN Laboratory Only [facility] Family & Internal Medicine [address] [place] [address] Sanket Waldron DO [address] [place] [address] 06/06/2024 11:40 AM DREDGE PIPEMAN Office Visit [facility] Family & Internal Medicine - [place] [address] [place] [address] [place] [address] [place] [address] Scheduled Referrals Name Type Priority Associated Diagnoses Orde r Schedule Ambulatory referral to ENT Referral Routine Epistaxis Ordered: 03/30/2024 documented as of this encounter Visit Diagnoses Diagnosis Epistaxis- Primary documented in this encounter Additional Health Concerns Assessment Noted Time PHQ-9 Depression Total Score: 0 02/03/20 24 2:27 PM CDT documented as of this encounter Care Teams Talent Coordinator Relationship Specialty Start Date End Date Sanket Waldron DO [address] [place] [address] PCP - General FAMILY PRACTICE 05/26/23 documented as of this encounter
--- OUTSIDE RECORDS SUMMARY | 2024-04-01 07:31 | XMS_ITS | Encounter Summary ---
Author Organization [facility] Address [address] [place] [address]. [place] [address] [place] [address] Care Team Providers Care Janitorial Maintenance Worker Name Role Phone Peterson Colindres DO Primary Care Provider + Reason for Referral * Consultation (Routine) - Authorized Specialty Diagnoses / Procedures Referred By Contac t Referred To Contact ORTHOPAEDICS Diagnoses Primary osteoarthritis of both knees Procedures OFFICE/OUTPATIENT NEW LOW MDM 30-44 MINUTES OFFICE/OUTPT VISIT,NEW,LEVL IV OFFICE/OUTPT VISIT,NEW,LEVL V OFFICE/OUTPT VISIT,EST,LEVL III OFFICE/OUTPT VISIT,EST,LEVL IV OFFICE/OUTPT VISIT,EST,LEVL V Peterson Colindres DO [address] [place] [address] Phone: tel: fax: Adrien Camejo MD [address] [address] Phone: tel: fax: Referral ID Status Reason Start Date Expiration Date Visits Requested Visits Authorized [id number] Authorized Specialty Services 05/14/2023 11/10/2024 12 12 Scheduling Instructions Adrien camejo Reason for Visit * Reason Onset Date Comments Referral 11/10/2023 Encounter Details Date Type Department Care Team (Late st Contact Info) Description 11/10/2023 Telephone [facility] Family & Internal Medicine [place] [address] [place] [address] [place] [address] [place] [address] Referral Social History Tobacco Use Types Packs/Day [...] as of this encounter Progress Notes * Joelle Pitt MA - 11/10/2023 10:30 AM CDT 11/10/23: Patient returned call and verbally informed and understands, la,rma * Veronica Dick MA - 11/10/2023 10:18 AM CDT Referral placed. Patient has a current mamm order. Was placed in 05/26/2023 for [facility] imaging. Order is good for1 year. Patient will need to call there to schedule. LMOM for r/c. * Angela Dewey - 11/10/2023 9:08 AM CDT Pt called in today requesting a new referral for Dr Camejo b/chu her other expires. She said if any questions to give her a call. She was also inquiring if she would need a referral for her mammogram as well. 's name: Dr Adrien Camejo Phone number [phone] Reason for referral: Ortho-knee Insurance: [facility] Appointment: 11/16/2023 Call back #:[phone] Last office visit at this office: Last visit with PETERSON COLINDRES in FAMILY PRACTICE was on: 05/26/2023 in [facility] Future appointment scheduled: Future Appointments Date Time Provider Department Center 11/24/2023 1:00 PM Peterson Colindres DO [facility] documented in this encounter Plan of Treatment Upcoming Encounters Date Type Department Care Team (Late st Contact Info) Description 05/30/2024 7:20 AM AIRCRAFT ELECTRICIAN Laboratory Only [facility] Family & Internal [facility] [address] [place] [address] Peterson Colindres DO [address] [place] [address] 06/06/2024 11:40 AM AIRCRAFT ELECTRICIAN Office Visit [facility] Family & Internal [facility] [address] [place] [address] Peterson Colindres DO [address] [place] [address] Scheduled Referrals Name Type Priority Associated Diagnoses Orde r Schedule Ambulatory referral to Orthopedics (OTHER) Referral Routine Primary osteoarthritis of both knees Ordered: 11/10/2023 documented as of this encounter Visit Diagnoses Diagnosis Primary osteoarthritis of both knees- Primary Primary localized osteoarthrosis, lower leg documented in this encounter Care Teams Janitorial Maintenance Worker Relationship Specialty Start Date End Date Peterson Colindres DO [address] [place] [address] PCP - General FAMILY PRACTICE 05/26/23 documented as of this encounter
--- OUTSIDE RECORDS SUMMARY | 2024-04-01 07:31 | XMS_ITS | Encounter Summary ---
Author Organization [facility] Address [address] [place] [address]. [place] [address] [place] [address] Care Team Providers Care Repair Welder Name Role Phone Sanket Waldron DO Primary Care Provider + Reason for Visit * Reason Comments Lab (SCAN) Encounter Details Date Type Department Care Team (Latest Contact Info) Description 10/19/2023 Scan HEALTH INFO SRVCS Scanned, Doc Med [...] st Contact Info) Description 05/30/2024 7:20 AM MACHINIST SUPERVISOR OUTSIDE Laboratory Only [facility] Family & Internal Medicine [place] [address] [place] [address] Sanket Waldron DO [address] [place] [address] 06/06/2024 11:40 AM MACHINIST SUPERVISOR OUTSIDE Office Visit [facility] Family & Internal Medicine [address] [address] Sanket Waldron DO [address] [place] [address] documented as of this encounter Procedures Procedure Name Priority Date/Time Associated Diagnosis Comments OUTSIDE PT/INR (SCAN ORDER) 10/19/2023 documented in this encounter Results * OUTSIDE PT/INR (SCAN ORDER) (10/19/2023) 10/19/2023 [facility] Scanned SCANNING Final Resu lt documented in this encounter Visit Diagnoses Not on filedocumented in this encounter Care Teams Repair Welder Relationship Specialty Start Date End Date Sanket Waldron DO [address] [place] [address] PCP - General FAMILY PRACTICE 05/26/23 documented as of this encounter
--- OUTSIDE RECORDS SUMMARY | 2024-04-01 07:31 | XMS_ITS | Encounter Summary ---
Author Organization [facility] Address [address] [place] [address]. [place] [address] [place] [address] Care Team Providers Care Monotype Setter Name Role Phone Sanket Waldron DO Primary Care Provider + Reason for Visit * Reason Comments Lab (SCAN) Encounter Details Date Type Department Care Team (Latest Contact Info) Description 11/16/2023 Scan HEALTH INFO SRVCS Scanned, Doc Med [...] st Contact Info) Description 05/30/2024 7:20 AM BREASTFEEDING PROGRAM COORDINATOR Laboratory Only [facility] Family & Internal Medicine [place] [address] [place] [address] Sanket Waldron DO [address] [place] [address] 06/06/2024 11:40 AM BREASTFEEDING PROGRAM COORDINATOR Office Visit [facility] Family & Internal Medicine [address] [address] Sanket Waldron DO [address] [place] [address] documented as of this encounter Procedures Procedure Name Priority Date/Time Associated Diagnosis Comments OUTSIDE PT/INR (SCAN ORDER) 11/16/2023 documented in this encounter Results * OUTSIDE PT/INR (SCAN ORDER) (11/16/2023) 11/16/2023 us [facility] Scanned SCANNING Final Resu lt documented in this encounter Visit Diagnoses Not on filedocumented in this encounter Care Teams Monotype Setter Relationship Specialty Start Date End Date Sanket Waldron DO [address] [place] [address] PCP - General FAMILY PRACTICE 05/26/23 documented as of this encounter
--- OUTSIDE RECORDS SUMMARY | 2024-04-01 07:31 | XMS_ITS | Encounter Summary ---
Author Organization [facility] Address [address] [place] [address]. [place] [address] [place] [address] Care Team Providers Care Data Entry Clerk Name Role Phone Sanket Waldron DO Primary Care Provider + Reason for Visit * Reason Onset Date Comments Referral 01/20/2024 Encounter Details Date Type Department Care Team (Late st Contact Info) Description 01/20/2024 [place]ap[place]t Message Enc [facility] Family & Internal Medicine [place] [place] [phone] Sanket Waldron DO [address] [place] [address] Dermatology referral & Overdue Medicare visit Social History Tobacco Use Types Packs/Day Years [...] st Contact Info) Description 05/30/2024 7:20 AM EMERGENCY RESPONSE COORDINATOR Laboratory Only [facility] Family & Internal Medicine [address] [address] Sanket Waldron DO [address] [place] [address] 06/06/2024 11:40 AM EMERGENCY RESPONSE COORDINATOR Office Visit [facility] Family & Internal Medicine - [place] [address] [place] [address] Sanket Waldron DO [address] [place] [address] documented as of this encounter Visit Diagnoses Not on filedocumented in this encounter Care Teams Data Entry Clerk Relationship Specialty Start Date End Date Sanket Waldron DO [address] [place] [address] PCP - General FAMILY PRACTICE 05/26/23 documented as of this encounter
--- OUTSIDE RECORDS SUMMARY | 2024-04-01 07:31 | XMS_ITS | Encounter Summary ---
Author Organization [facility] Address [address] [place] [address]. [place] [address] [place] [address] Care Team Providers Care Vehicle Refinisher Name Role Phone Sanket Waldron DO Primary Care Provider + Reason for Visit * Reason Comments Lab (SCAN) Encounter Details Date Type Department Care Team (Latest Contact Info) Description 10/05/2023 Scan HEALTH INFO SRVCS Scanned, Doc Med [...] st Contact Info) Description 05/30/2024 7:20 AM MH TEACHER Laboratory Only [facility] Family & Internal Medicine [place] [address] [place] [address] Sanket Waldron DO [address] [place] [address] 06/06/2024 11:40 AM MH TEACHER Office Visit [facility] Family & Internal Medicine [address] [address] Sanket Waldron DO [address] [place] [address] documented as of this encounter Procedures Procedure Name Priority Date/Time Associated Diagnosis Comments OUTSIDE PT/INR (SCAN ORDER) 10/05/2023 documented in this encounter Results * OUTSIDE PT/INR (SCAN ORDER) (10/05/2023) 10/05/2023 us [facility] Scanned SCANNING Final Resu lt documented in this encounter Visit Diagnoses Not on filedocumented in this encounter Care Teams Vehicle Refinisher Relationship Specialty Start Date End Date Sanket Waldron DO [address] [place] [address] PCP - General FAMILY PRACTICE 05/26/23 documented as of this encounter
--- OUTSIDE RECORDS SUMMARY | 2024-04-01 07:31 | XMS_ITS | Encounter Summary ---
Author Organization [facility] Address [address] [place] [address]. [place] [address] [place] [address] Care Team Providers Care Button Tufting Machine Operator Name Role Phone Sanket Waldron DO Primary Care Provider + Reason for Visit * Reason Comments Lab (SCAN) Encounter Details Date Type Department Care Team (Latest Contact Info) Description 08/17/2023 Scan HEALTH INFO SRVCS Scanned, Doc Med [...] st Contact Info) Description 05/30/2024 7:20 AM CHEMICAL OPERATIONS SPECIALIST Laboratory Only [facility] Family & Internal Medicine [place] [place] [address] Sanket Waldron DO [address] [place] [address] 06/06/2024 11:40 AM CHEMICAL OPERATIONS SPECIALIST Office Visit [facility] Family & Internal Medicine [address] [address] Sanket Waldron DO [address] [place] [address] documented as of this encounter Procedures Procedure Name Priority Date/Time Associated Diagnosis Comments OUTSIDE PT/INR (SCAN ORDER) 08/17/2023 OUTSIDE PT/INR (SCAN ORDER) 08/17/2023 documented in this encounter Results * OUTSIDE PT/INR (SCAN ORDER) (08/17/2023) 08/17/2023 us [facility] Scanned SCANNING Final Resu lt * OUTSIDE PT/INR (SCAN ORDER) (08/17/2023) 08/17/2023 us [facility] Scanned SCANNING Final Resu lt documented in this encounter Visit Diagnoses Not on filedocumented in this encounter Care Teams Button Tufting Machine Operator Relationship Specialty Start Date End Date Sanket Waldron DO [address] [place] [address] PCP - General FAMILY PRACTICE 05/26/23 documented as of this encounter
--- OUTSIDE RECORDS SUMMARY | 2024-04-01 07:32 | XMS_ITS | Encounter Summary ---
Author Organization [facility] Address [address] [place] [address]. [place], [place] [address] [place] [address] Care Team Providers Care Hvac Operations Technician Name Role Phone Sanket Waldron DO Primary Care Provider + Encounter Details Date Type Department Care Team (Latest Contact Info) Description 07/02/2023 Scan [facility] HEALTH INFO SRVCS Scanned, Doc [...] st Contact Info) Description 05/30/2024 7:20 AM DIRECTOR OF REVENUE CYCLE MANAGEMENT Laboratory Only [facility] Family & Internal Medicine [facility] [address] [place] [address] Sanket Waldron DO [address] [place] [address] 06/06/2024 11:40 AM DIRECTOR OF REVENUE CYCLE MANAGEMENT Office Visit [facility] Family & Internal Medicine [facility] [address] [place] [address] Sanket Waldron DO [address] [place] [address] documented as of this encounter Visit Diagnoses Not on filedocumented in this encounter Care Teams Hvac Operations Technician Relationship Specialty Start Date End Date Sanket Waldron DO [address] [place] [address] PCP - General FAMILY PRACTICE 05/26/23 documented as of this encounter
--- OUTSIDE RECORDS SUMMARY | 2024-04-01 07:32 | XMS_ITS | Encounter Summary ---
Author Organization [facility] Address [address] [place] [address]. [place] [address] [place] [address] Care Team Providers Care Information Systems Administrator Name Role Phone Sanket Waldron DO Primary Care Provider + Encounter Details Date Type Department Care Team (Latest Contact Info) Description 06/04/2023 Travel Social History Tobacco Use Types Packs/Day [...] Contact Info) Description 05/30/2024 7:20 AM MANAGER ACADEMIC Laboratory Only [facility] Family & Internal Medicine [facility] [address] [place] [address] Sanket Waldron DO [address] [place] [address] 06/06/2024 11:40 AM MANAGER ACADEMIC Office Visit [facility] Family & Internal [facility] [address] [place] [address] Sanket Waldron DO [address] [place] [address] documented as of this encounter Visit Diagnoses Not on filedocumented in this encounter Care Teams Information Systems Administrator Relationship Specialty Start Date End Date Sanket Waldron DO [address] [place] [address] PCP - General FAMILY PRACTICE 05/26/23 documented as of this encounter
--- OUTSIDE RECORDS SUMMARY | 2024-04-01 07:32 | XMS_ITS | Encounter Summary ---
Author Organization [facility] Address [address] [place] [address]. [place] [address] [place] [address] Care Team Providers Care Rn Outpatient Surgery Name Role Phone Sanket Waldron DO Primary Care Provider + Encounter Details Date Type Department Care Team (Latest Contact Info) Description 05/26/2023 - 05/26/2023 11:59 PM [facility] Hospital Encounter [facility] [address] [place] [address] Sanket Waldron DO [address] [place], [place] [id number] Discharge Disposition: Home or Self Care (Routine Discharge) Social History Tobacco Use Types Packs/Day Years [...] on file documented as of this encounter Medications at Time of Discharge Ascorbic Acid (VITAMIN C) 250 MG Chew Tab 05/14/2023 aspirin EC (ECOTRIN) 81 MG tablet Take 1 tablet (81 mg total) by mouth daily. atorvastatin (LIPITOR) 20 MG tablet Take 1 tablet (20 mg total) by mouth daily. 01/15/2023 Cyanocobalamin (B-12) 1000 MCG Tab latanoprost (XALATAN) 0.005 % ophthalmic solution INSTILL 1 DROP INTO RIGHT EYE AT BEDTIME 04/21/2023 Saline (OCEAN NASAL SPRAY NA) warfarin (COUMADIN) 2 MG tablet Take 2 tablets (4 mg total) by mouth daily. 11/07/2008 albuterol sulfate HFA 108 (90 Base) MCG/ACT inhaler Inhale 2 puffs into the lungs every 6 (six) hours as needed. 4 amoxicillin (AMOXIL) 500 MG capsule 12/02/2022 4 Carboxymethylcellulo se Sodium (REFRESH TEARS OP) 4 Cholecalciferol (VITAMIN D3) 25 MCG (1000 UT) Cap 4 gabapentin (NEURONTIN) 300 MG capsuleIndications:B ilateral primary osteoarthritis of knee,Other chronic pain Take 1 capsule (300 mg total) by mouth 3 (three) times daily as needed. 270 capsule 1 05/26/2023 4 Magnesium 400 MG Cap 11/12 4 menthol (BIOFREEZE ROLL-ON) 4 % topical gel 05/14/2023 4 documented as of this encounter Plan of Treatment Upcoming Encounters Date Type Department Care Team (Late st Contact Info) Description 05/30/2024 7:20 AM SHOP FIRER/FIREMAN Laboratory Only [facility] Family & Internal Medicine [address] [address] Sanket Waldron DO [address] [place] [address] 06/06/2024 11:40 AM SHOP FIRER/FIREMAN Office Visit [facility] Family & Internal [facility] [address] [place] [address] Sanket Waldron DO [address] [place] [address] documented as of this encounter Visit Diagnoses Not on filedocumented in this encounter Care Teams Rn Outpatient Surgery Relationship Specialty Start Date End Date Sanket Waldron DO [address] [place] [address] PCP - General FAMILY PRACTICE 05/26/23 documented as of this encounter
--- OUTSIDE RECORDS SUMMARY | 2024-04-01 07:32 | XMS_ITS | Encounter Summary ---
Author Organization [facility] Address [address] [place] [address]. [place] [address] [place] [address] Care Team Providers Care Patient Safety Coordinator Name Role Phone Sanket Waldron DO Primary Care Provider + Reason for Visit * Reason Comments Lab (SCAN) Encounter Details Date Type Department Care Team (Latest Contact Info) Description 05/25/2023 Scan HEALTH INFO SRVCS Scanned, Doc Med Group Lab (SCAN) Social History Tobacco Use Types Packs/Day Years Used Date Smoking Tobacco: Never Assessed PHQ-2 Answer Date Recorded Patient Health Questionnaire-2 Score 2 05/26/2023 Comments Unknown Sex and Gender Information Value Date Recorded Sex Assigned at Not on file Legal Sex Female 7:25 PM CDT Gender Identity Not on file Sexual Orientation Not on file documented as of this encounter Plan of Treatment Upcoming Encounters Date Type Department Care Team (Late Contact Info) Description 05/30/2024 7:20 AM TECHNICAL INSPECTOR Laboratory Only [facility] Family & Internal Medicine [facility] [address] [place] [address] Sanket Waldron, DO [address] [place] [address] 06/06/2024 11:40 AM TECHNICAL INSPECTOR Office Visit [facility] Family & Internal Medicine [facility] [address] [place] [address] Sanket Waldron, DO [address] [place] [address] documented as of this encounter Procedures Procedure Name Priority Date/Time Associated Diagnosis Comments OUTSIDE PT/INR (SCAN ORDER) 05/25/2023 documented in this encounter Results * OUTSIDE PT/INR (SCAN ORDER) (05/25/2023) 05/25/2023 us Doc Med Group Scanned SCANNING Final Resu lt documented in this encounter Visit Diagnoses Not on filedocumented in this encounter Care Teams Patient Safety Coordinator Relationship Specialty Start Date End Date Sanket Waldron DO [address] [place] [address] PCP - General FAMILY PRACTICE 05/26/23 documented as of this encounter
--- OUTSIDE RECORDS SUMMARY | 2024-04-01 07:32 | XMS_ITS | Encounter Summary ---
Author Organization [facility] Address [address] [place] [address]. [place], [place] [address] [place] [address] Care Team Providers Care Rivet Bucker Name Role Phone Sanket Waldron DO Primary Care Provider + Reason for Referral * Consultation/Treatment (Emergency) - Closed Specialty Diagnoses / Procedures Referred By Contac t Referred To Contact Pain Medicine Diagnoses Bilateral sciatica Procedures OFFICE/OUTPATIENT NEW LOW MDM 30-44 MINUTES OFFICE/OUTPT VISIT,NEW,LEVL IV OFFICE/OUTPT VISIT,NEW,LEVL V OFFICE/OUTPT VISIT,EST,LEVL III OFFICE/OUTPT VISIT,EST,LEVL IV OFFICE/OUTPT VISIT,EST,LEVL V Sanket Waldron DO [address] [place] [address] Phone: tel: fax: Sal Haas MD [address] [address] Phone: tel: fax: Referral ID Status Reason Start Date Expiration Date V isits Requested Visits Authorized [id number] Closed Specialty Services 02/19/2023 02/20/2024 [address] Haas Appt 06/15/2023 ORATION DRILLER Reason for Visit * Reason Onset Date Comments Referral 06/15/2023 Encounter Details Date Type Department Care Team (Late st Contact Info) Description 06/15/2023 Telephone [facility] Family & Internal Medicine - [place] [address] [place] [address] Sanket Waldron DO [address] [place] [address] Referral Social History Tobacco Use Types Packs/Day [...] Progress Notes * Veronica Dick MA - 06/15/2023 1:22 PM CST Referral placed. ORATION DRILLER * Alyson Thakkar - 06/15/2023 9:10 AM CST Good morning! I just received an incoming call from the patient stating that she has an appointmentthis morning with Dr. Haas (pain management) and is needing an Essence authorization. Unsure of what the diagnosis would be, unfortunately. We are unable to obtain Essence auth until the order has been placed. ORATION DRILLER documented in this encounter Plan of Treatment Upcoming Encounters Date Type Department Care Team (Late st Contact Info) Description 05/30/2024 7:20 AM EXPLORATION DRILLER Laboratory Only [facility] Family & Internal [address] [address] Sanket Waldron DO [address] [place] [address] 06/06/2024 11:40 AM EXPLORATION DRILLER Office Visit [facility] Family & Internal Medicine - [place] [address] [place] [address] Sanket Waldron DO [address] [place] [address] Scheduled Referrals Name Type Priority Associated Diagnoses Orde r Schedule Ambulatory Referral to Pain Management Referral STAT Bilateral sciatica Ordered: 06/15/2023 documented as of this encounter Visit Diagnoses Diagnosis Bilateral sciatica- Primary Sciatica documented in this encounter Care Teams Rivet Bucker Relationship Specialty Start Date End Date Sanket Waldron DO [address] [place] [address] PCP - General FAMILY PRACTICE 05/26/23 documented as of this encounter
--- OUTSIDE RECORDS SUMMARY | 2024-04-01 07:32 | XMS_ITS | Encounter Summary ---
Author Organization [facility] Address [address] [place] [address]. [place], [place] [address] [place] [address] Care Team Providers Care Supervisor Cytology Name Role Phone Unavailable Primary Care Provider Unavailabl e Encounter Details Date Type Department Care Team (Late st Contact Info) Description 02/22/2002 Abstract [place] [address] , Generic Conversion, Social History Tobacco Use Types Packs/Day Years Used Date Smoking Tobacco: Never Assessed Comments Unknown Sex and Gender Information Value Date Recorded Sex Assigned at Not on file Legal Sex Female 7:25 PM CDT Gender Identity Not on file Sexual Orientation Not on file documented as of this encounter Plan of Treatment Upcoming Encounters Date Type Department Care Team (Late st Contact Info) Description 05/30/2024 7:20 AM INFORMATION ASSURANCE Laboratory Only [facility] Family & Internal [address] [address] Sanket Waldron, DO [address] [place] [address] 06/06/2024 11:40 AM INFORMATION ASSURANCE Office Visit [facility] Family & Internal [facility] [address] [place] [address] Sanket Waldron, DO [address] [place] [address] documented as of this encounter Visit Diagnoses Not on filedocumented in this encounter
--- OUTSIDE RECORDS SUMMARY | 2024-04-01 07:32 | XMS_ITS | Encounter Summary ---
Author Organization [facility] Address [address] [place] [address]. [place] [address] [place] [address] Care Team Providers Care Shaft Tender Name Role Phone Sanket Waldron DO Primary Care Provider + Reason for Visit * Reason Comments Lab (SCAN) Encounter Details Date Type Department Care Team (Latest Contact Info) Description 06/08/2023 Scan HEALTH INFO SRVCS Scanned, Doc Med [...] st Contact Info) Description 05/30/2024 7:20 AM CIRCUIT BOARD INSPECTOR Laboratory Only [facility] Family & Internal Medicine [place] [address] [place] [address] Sanket Waldron DO [address] [place] [address] 06/06/2024 11:40 AM CIRCUIT BOARD INSPECTOR Office Visit [facility] Family & Internal Medicine [address] [address] Sanket Waldron DO [address] [place] [address] documented as of this encounter Procedures Procedure Name Priority Date/Time Associated Diagnosis Comments OUTSIDE PT/INR (SCAN ORDER) 06/08/2023 documented in this encounter Results * OUTSIDE PT/INR (SCAN ORDER) (06/08/2023) 06/08/2023 us Doc Med Group Scanned SCANNING Final Resu lt documented in this encounter Visit Diagnoses Not on filedocumented in this encounter Care Teams Shaft Tender Relationship Specialty Start Date End Date Sanket Waldron DO [address] [place] [address] PCP - General FAMILY PRACTICE 05/26/23 documented as of this encounter
--- OUTSIDE RECORDS SUMMARY | 2024-04-01 07:32 | XMS_ITS | Encounter Summary ---
Author Organization [facility] Address [address] [place] [address]. [place], [place] [address] [place] [address] Care Team Providers Care Agronomy Manager Name Role Phone Unavailable Primary Care Provider Unavailabl e Encounter Details Date Type Department Care Team (Late st Contact Info) Description 01/01/1996 Abstract [place] [address] , Generic Conversion, Social History Tobacco Use [...] st Contact Info) Description 05/30/2024 7:20 AM GUN MECHANIC Laboratory Only [facility] Family & Internal [address] [address] Sanket Waldron DO [address] [place] [address] 06/06/2024 11:40 AM GUN MECHANIC Office Visit [facility] Family & Internal [facility] [address] [place] [address] Sanket Waldron, DO [address] [place] [address] documented as of this encounter Visit Diagnoses Not on filedocumented in this encounter
--- OUTSIDE RECORDS SUMMARY | 2024-04-01 07:32 | XMS_ITS | Encounter Summary ---
Author Organization [facility] Address [address] [place] [address]. [place], [place] [address] [place] [address] Care Team Providers Care Preparation Room Worker Name Role Phone Peterson Colindres DO Primary Care Provider + Reason for Referral * Physical Medicine (Urgent) - Closed Specialty Diagnoses / Procedures Referred By Contac t Referred To Contact PHYSICAL THERAPY Diagnoses Low back pain Procedures OFFICE/OUTPATIENT NEW LOW MDM 30-44 MINUTES OFFICE/OUTPT VISIT,NEW,LEVL IV OFFICE/OUTPT VISIT,NEW,LEVL V OFFICE/OUTPT VISIT,EST,LEVL III OFFICE/OUTPT VISIT,EST,LEVL IV OFFICE/OUTPT VISIT,EST,LEVL V Peterson Colindres DO [address] [place] [phone] Phone: tel: fax: [facility] [address] Phone: tel: fax: Referral ID Status Reason Start Date Expiration Date V isits Requested Visits Authorized [id number] Closed Physical Therapy 06/29/2023 12/30/2023 16 16 Scheduling Instructions 's name: Josefina Specialty: PT Reason for referral (diagnosis): M54.50 Appointment: 07/02/23 7:00AM Please backdate 1x day Reason for Visit * Reason Onset Date Comments Referral 07/02/2023 Encounter Details Date Type Department Care Team (Late st Contact Info) Description 07/02/2023 Telephone [facility] Family & Internal Medicine - [place] [address] [place] [address] Peterson Colindres DO [address] [place], [place] [phone] Referral Social History Tobacco Use Types Packs/Day [...] Progress Notes * Veronica Dick MA - 07/02/2023 1:45 PM CDT Referral placed * Marilin Teixeira - 07/02/2023 8:08 AM CDT The patient called for a referral to the following physician: Is this a new consult:Yes. 's name: [facility] Specialty: PT Reason for referral (diagnosis): M54.50 Appointment: 07/02/23 7:00AM Please backdate 1x day Last office visit at this office: Last visit with PETERSON COLINDRES in FAMILY PRACTICE was on: 05/26/2023 in [facility] Future appointment scheduled: Future Appointments Date Time Provider Department Center 08/04/2023 10:00 AM [facility] LAB FMMRVL [facility] 11/24/2023 1:00 PM Peterson Colindres DO [id number] [facility] documented in this encounter Plan of Treatment Upcoming Encounters Date Type Department Care Team (Late st Contact Info) Description 05/30/2024 7:20 AM MONTESSORI TODDLER TEACHER Laboratory Only [facility] Family & Internal [facility] [address] [place] [address] Peterson Colindres DO [address] [place] [address] 06/06/2024 11:40 AM MONTESSORI TODDLER TEACHER Office Visit [facility] Internal [address] [address] Peterson Colindres DO [address] [place] [address] Scheduled Referrals Name Type Priority Associated Diagnoses Orde r Schedule Ambulatory referral to Physical Therapy Referral Routine Low back pain Ordered: 07/02/2023 documented as of this encounter Visit Diagnoses Diagnosis Low back pain- Primary Lumbago documented in this encounter Care Teams Preparation Room Worker Relationship Specialty Start Date End Date Peterson Colindres DO [address] [place] [address] PCP - General FAMILY PRACTICE 05/26/23 documented as of this encounter
--- OUTSIDE RECORDS SUMMARY | 2024-04-01 07:32 | XMS_ITS | Encounter Summary ---
Author Organization [facility] Address [address] [place] [address]. [place] [address] [place] [address] Care Team Providers Care Assistant Elementary Teacher Name Role Phone Sanket Waldron DO Primary Care Provider + Encounter Details Date Type Department Care Team (Latest Contact Info) Description 05/26/2023 Travel Social History Tobacco Use Types Packs/Day [...] st Contact Info) Description 05/30/2024 7:20 AM MICROSOFT BI ARCHITECT Laboratory Only [facility] Family & Internal Medicine [facility] [address] [place] [address] Sanket Waldron DO [address] [place] [address] 06/06/2024 11:40 AM MICROSOFT BI ARCHITECT Office Visit [facility] Family & Internal [facility] [address] [place] [address] Sanket Waldron DO [address] [place] [address] documented as of this encounter Visit Diagnoses Not on filedocumented in this encounter Care Teams Assistant Elementary Teacher Relationship Specialty Start Date End Date Sanket Waldron DO [address] [place] [address] PCP - General FAMILY PRACTICE 05/26/23 documented as of this encounter
--- OUTSIDE RECORDS SUMMARY | 2024-04-01 07:32 | XMS_ITS | Encounter Summary ---
Author Organization [facility] Address [address] [place] [address]. [place], [place] [address] [place] [address] Care Team Providers Care Manager Market Research Name Role Phone Sanket Waldron DO Primary Care Provider + Reason for Visit * Reason Onset Date Comments Results 06/03/2023 Encounter Details Date Type Department Care Team (Late st Contact Info) Description 06/03/2023 Telephone [facility] Family & Internal Medicine [facility] [address] [place] [address] Sanket Waldron DO [address] [place] [address] Results Social History Tobacco Use Types Packs/Day [...] Progress Notes * Veronica Dick MA - 06/03/2023 8:29 AM CST Spoke with patient and informed her of lab results. The patient v/u and scheduled lab appt. The patient is also having sciatica pain for the 4th time since March 2023. The patient was scheduled with a covering physician since PCP is out of the office. The patient has tries stretches that were recommended at the previous OV. ----- Message from Sanket Waldron DO sent at 05/30/2023 9:45 PM RDA ----- Pt's WBC is mildly increased; will need to recheck this in 2-3 months. Labs are otherwise within acceptable. Repeat CBC in 2-3 months and other labs can be repeated in 1 year. documented in this encounter Plan of Treatment Upcoming Encounters Date Type Department Care Team (Late st Contact Info) Description 05/30/2024 7:20 AM RDA Laboratory Only [facility] & Internal [address] [address] Sanket Waldron DO [address] [place] [address] 06/06/2024 11:40 AM RDA Office Visit [facility] Family Internal [address] [address] Sanket Waldron DO [address] [place] [address] documented as of this encounter Results * (ABNORMAL) CBC W/DIFF AUTOMATED (08/04/2023 10:18 AM CDT) WBC 6.36 4.00 - 10.80 x10'3/uL 08/04/2023 3:04 PM CDT MG-[facility] RBC 4.39 4.10 - 5.40 x10'6/uL 08/04/2023 3:04 PM CDT [facility] HGB 13.4 12.0 - 16.0 G/DL 08/04/2023 3:04 PM CDT -[facility] HCT 41.9 36.0 - 47.0 % 08/04/2023 3:04 PM CDT [facility] MCV 95.4 78.0 - 100.0 FL 08/04/2023 3:04 PM CDT [facility] MCH 30.5 27.0 - 31.0 PG 08/04/2023 3:04 PM CDT [facility] MCHC 32.0(L) 33.0 - 36.0 G/DL 08/04/2023 3:04 PM CDT [facility] RDW 13.2 11.5 - 14.5 % 08/04/2023 3:04 PM CDT [facility] PLT 297 150 - 350 x10'3/uL 08/04/2023 3:04 PM CDT [facility] MPV 10.9(H) 7.4 - 10.4 FL 08/04/2023 3:04 PM CDT [facility] DIFFERENTIAL TYPE AUTOMATED DIFFERENTIAL 08/04/2023 3:04 PM CDT [facility] NEUTROPHILS % 57.9 % 08/04/2023 3:04 PM CDT [facility] LYMPHOCYTES % 26.6 % 08/04/2023 3:04 PM CDT [facility] MONOCYTES % 10.1 % 08/04/2023 3:04 PM CDT [facility] EOSINOPHILS % 4.6 % 08/04/2023 3:04 PM CDT [facility] BASOPHILS % 0.8 % 08/04/2023 3:04 PM CDT [facility] IMMATURE GRANS % 0.0 % 08/04/2023 3:04 PM CDT [facility] ABS. NEUTROPHILS 3.69 1.60 - 8.30 x10'3/uL 08/04/2023 3:04 PM CDT [facility] ABS. LYMPHOCYTES 1.69 0.80 - 4.70 x10'3/uL 08/04/2023 3:04 PM CDT -[facility] ABS. MONOCYTES 0.64 0.00 - 1.50 x10'3/uL 08/04/2023 3:04 PM CDT -[facility] ABS. EOSINOPHILS 0.29 0.00 - 0.40 x10'3/uL 08/04/2023 3:04 PM CDT MG-[facility] ABS. BASOPHILS 0.05 0.00 - 0.20 x10'3/uL 08/04/2023 3:04 PM CDT -[facility] ABS. IMMATURE GRANULOCYTES 0.00 0.00 - 0.03 x10'3/uL 08/04/2023 3:04 PM CDT -[facility] 08/04/2023 10:1 8 AM CDT Sanket Waldron DO LABORATORY Final Re sult -[facility] [address] [place] [address], documented in this encounter Visit Diagnoses Diagnosis Elevated WBC count- Primary Leukocytosis, unspecified documented in this encounter Care Teams Manager Market Research Relationship Specialty Start Date End Date Sanket Waldron DO [address] [place] [address] PCP - General FAMILY PRACTICE 05/26/23 documented as of this encounter
--- OUTSIDE RECORDS SUMMARY | 2024-04-01 07:32 | XMS_ITS | Encounter Summary ---
Author Organization [facility] Address [address] [place] [address]. [place], [place] [address] [place] [address] Care Team Providers Care Grease And Tallow Pumper Name Role Phone Sanket Waldron DO Primary Care Provider + Encounter Details Date Type Department Care Team (Late st Contact Info) Description 06/02/2023 Discharge HEALTH INFO SRVCS Scanned, Doc Med Group [...] (Late Contact Info) Description 05/30/2024 7:20 AM SALES DEPARTMENT MANAGER Laboratory Only [facility] Family & Internal Medicine [facility] [address] [place] [address] Sanket Waldron DO [address] [place] [address] 06/06/2024 11:40 AM SALES DEPARTMENT MANAGER Office Visit [facility] Internal Medicine [facility] [address] [place] [address] Sanket Waldron DO [address] [place] [address] documented as of this encounter Visit Diagnoses Not on filedocumented in this encounter Care Teams Grease And Tallow Pumper Relationship Specialty Start Date End Date Sanket Waldron DO [address] [place] [address] PCP - General FAMILY PRACTICE 05/26/23 documented as of this encounter
--- OUTSIDE RECORDS SUMMARY | 2024-04-01 07:32 | XMS_ITS | Encounter Summary ---
Author Organization [facility] Address [address] [place] [address]. [place], [place] [id number] [place] [address] Care Team Providers Care Help Desk Internship Name Role Phone Sanket Waldron DO Primary Care Provider + Reason for Referral * Physical Medicine (Routine) - Closed Specialty Diagnoses / Procedures Referred By Contac t Referred To Contact PHYSICAL THERAPY Diagnoses Chronic bilateral low back pain with bilateral sciatica Procedures OFFICE/OUTPATIENT NEW LOW MDM 30-44 MINUTES OFFICE/OUTPT VISIT,NEW,LEVL IV OFFICE/OUTPT VISIT,NEW,LEVL V OFFICE/OUTPT VISIT,EST,LEVL III OFFICE/OUTPT VISIT,EST,LEVL IV OFFICE/OUTPT VISIT,EST,LEVL V Phillip Curtis MD [address] [place] [address] Phone: tel: fax: [facility] [address] [place] [address] [place] [address] Phone: tel: fax: Referral ID Status Reason Start Date Expiration Date V isits Requested Visits Authorized [id number] Closed Physical Therapy 05/14/2023 11/12/2023 16 16 Scheduling Instructions Patient requests [facility] [place]. NT MANAGEMENT MANAGER Reason for Visit * Reason Comments Back Pain The patient states t his is the 4th flare since March 2023. The patient states this flare started about 3 days ago. Encounter Details Date Type Department Care Team (Late st Contact Info) Description 06/04/2023 2:40 PM TALENT MANAGEMENT MANAGER Office Visit [facility] - [place] [address] [place] [id number] Phillip Curtis MD [address] [place] [address] Back Pain (The patient states this is the 4th flare since March 2023. The patient states this flare started about 3 days ago. ) Social History Tobacco Use Types Packs/Day Years Used Date Smoking Tobacco: Former Cigarettes Smokeless Tobacco: Never Tobacco Cessation:Counseling Given: Not Answered Comments:Smoked occasionally for 3 months in mid [...] Sign Reading Time Taken Comments Blood Pressure 124/64 06/04/2023 2:48 PM TALENT MANAGEMENT MANAGER Pulse 91 06/04/2023 2:48 PM TALENT MANAGEMENT MANAGER Temperature 36.6 ??C (97.9 ??F) 06/04/2023 2:48 PM CS T Respiratory Rate 16 06/04/2023 2:48 PM TALENT MANAGEMENT MANAGER Oxygen Saturation 96% 06/04/2023 2:48 PM TALENT MANAGEMENT MANAGER Inhaled Oxygen Concentration - - Weight 59.4 kg (130 lb 14.4 oz) 06/04/2023 2:48 PM TALENT MANAGEMENT MANAGER Height 153.7 cm (5' 0.5 ) 06/04/2023 2:48 PM TALENT MANAGEMENT MANAGER Body Mass Index 25.14 06/04/2023 2:48 PM TALENT MANAGEMENT MANAGER documented in this encounter Progress Notes * Phillip Curtis MD - 06/04/2023 2:40 PM CST Office Progress Note Reason for Visit: Back Pain (The patient states this is the 4th flare since March 2023. The patient states this flare started about 3 days ago. ) History of Present Illness: She is here today complaining of lower back pain flare. She states that this pain started about 3 days ago and she does not know what triggered her pain. Pain does not radiate into her lower extremities. No numbness tingling or weakness. She states that this has flared multiple times since last year and is unsure why this is happening. She will usually do stretching at home which willhelp with the pain and eventually this will subside. At this time she has not had much relief of her pain and has become concerned. She has been taking [id number] anti-inflammatories without much relief of her symptoms. ROS: Review of Systems All other systems reviewed and are negative. Medications: Current Outpatient Medications on File Prior to Visit Medication Sig albuterol sulfate HFA 108 (90 Base) MCG/ACT inhaler Inhale 2 puffs into the lungs every 6 (six) hours as needed. amoxicillin (AMOXIL) 500 MG capsule Ascorbic Acid (VITAMIN C) 250 MG Chew Tab aspirin EC (ECOTRIN) 81 MG tablet Take 1 tablet (81 mg total) by mouth daily. atorvastatin (LIPITOR) 20 MG tablet Take 1 tablet (20 mg total) by mouth daily. Carboxymethylcellulose Sodium (REFRESH TEARS OP) Cholecalciferol (VITAMIN D3) 25 MCG (1000 UT) Cap Cyanocobalamin (B-12) 1000 MCG Tab gabapentin (NEURONTIN) 300 MG capsule Take 1 capsule (300 mg total) by mouth 3 (three) times daily as needed. latanoprost (XALATAN) 0.005 % ophthalmic solution INSTILL 1 DROP INTO RIGHT EYE AT BEDTIME Magnesium 400 MG Cap menthol (BIOFREEZE ROLL-ON) 4 % topical gel Saline (OCEAN NASAL SPRAY NA) warfarin (COUMADIN) 2 MG tablet Take 2 tablets (4 mg total) by mouth daily. No current facility-administered medications on file prior to visit. Allergies: Allergies Allergen Reactions Pregabalin Rash and Unknown Methylprednisolone Joint Pain and Leg Pain Molnupiravir Rash Medical History: Past Medical History: Diagnosis Date Arthritis 1986 Asthma 1960 Bilateral carpal tunnel syndrome 05/26/2023 Cataract 2019 or 2020 GERD (gastroesophageal reflux disease) Glaucoma 2020 Surgical History: Past Surgical History: Procedure Laterality Date CARDIAC VALVE REPLACEMENT 11/06/2008 JOINT REPLACEMENT Great Toe Implant in Social History: Social History Socioeconomic History Marital status: Spouse name: Vipul Number of children: 2 Tobacco Use Smoking status: Former Packs/day: 0.00 Years: 0.50 Additional pack years: 0.00 Total pack years: 0.00 Types: Cigarettes Smokeless tobacco: Never Tobacco comments: Smoked occasionally for 3 months in mid 70's Vaping Use Vaping Use: Never used Substance and Sexual Activity Alcohol use: Not Currently Comment: Occasional wine or daiquiri Drug use: Never Sexual activity: Not Currently control/protection: Post-menopausal Family History: No family history on file. PE: Physical Exam Vitals and nursing note reviewed. Constitutional: General: She is awake. Appearance: Normal appearance. Musculoskeletal: Comments: Tender to palpation over bilateral SI joints. No obvious deformity is noted. Neurological: Mental Status: She is alert and oriented to person, place, and time. Motor: Motor function is intact. Deep Tendon Reflexes: Reflex Scores: Patellar reflexes are 2+ on the right side and 2+ on the left side. Achilles reflexes are 2+ on the right side and 2+ on the left side. Psychiatric: Behavior: Behavior is cooperative. Filed Vitals: 06/04/23 1448 BP: 124/64 Pulse: 91 Resp: 16 Temp: 97.9 ??F (36.6 ??C) TempSrc: Skin SpO2: 96% Weight: 59.4 kg (130 lb 14.4 oz) Height: 1.537 m (5' 0.5 ) Diagnoses/Impression: 1. Chronic bilateral low back pain with bilateral sciatica predniSONE (DELTASONE) 20 MG tablet Ambulatory referral to Physical Therapy CANCELED: Ambulatory referral to Physical Therapy Recommendations and Plan: 1. Chronic bilateral low back pain with bilateral sciatica Start prednisone for inflammation. Refer to physical therapy Call if not improving or if worsening. - predniSONE (DELTASONE) 20 MG tablet; Take two tablets daily for 4 days, then one tablet daily for3 days Dispense: 11 tablet; Refill: 0 - Ambulatory referral to Physical Therapy Orders Placed This Encounter Ambulatory referral to Physical Therapy predniSONE (DELTASONE) 20 MG tablet PCP: PHILLIP CURTIS MD 06/10/2023 NT MANAGEMENT MANAGER documented in this encounter Plan of Treatment Upcoming Encounters Date Type Department Care Team (Late st Contact Info) Description 05/30/2024 7:20 AM TALENT MANAGEMENT MANAGER Laboratory Only [facility] Family & Internal Medicine [facility] [address] [place] [address] Sanket Waldron DO [address] [place] [address] 06/06/2024 11:40 AM TALENT MANAGEMENT MANAGER Office Visit [facility] Family & Internal [facility] [address] [place] [address] Sanket Waldron DO [address] [place] [address] Scheduled Referrals Name Type Priority Associated Diagnoses Orde r Schedule Ambulatory referral to Physical Therapy Referral Routine Chronic bilateral low back pain with bilateral sciatica Ordered: 06/04/2023 documented as of this encounter Visit Diagnoses Diagnosis Chronic bilateral low back pain with bilateral sciatica- Primary documented in this encounter Care Teams Help Desk Internship Relationship Specialty Start Date End Date Sanket Waldron DO [address] [place] [address] PCP - General FAMILY PRACTICE 05/26/23 documented as of this encounter
--- OUTSIDE RECORDS SUMMARY | 2024-04-01 07:32 | XMS_ITS | Encounter Summary ---
Author Organization [facility] Address [address] [place] [address]. [place], [place] [phone] [place] [address] Care Team Providers Care Drama Therapist Name Role Phone Sanket Waldron DO Primary Care Provider + Encounter Details Date Type Department Care Team (Latest Contact Info) Description 06/02/2023 Scan [facility] HEALTH INFO SRVCS Scanned, Doc [...] st Contact Info) Description 05/30/2024 7:20 AM CHOIR MEMBER Laboratory Only [facility] Family & Internal Medicine [facility] [address] [place] [address] Sanket Waldron DO [address] [place] [address] 06/06/2024 11:40 AM CHOIR MEMBER Office Visit [facility] Family & Internal Medicine [facility] [address] [place] [address] Sanket Waldron DO [address] [place] [address] documented as of this encounter Visit Diagnoses Not on filedocumented in this encounter Care Teams Drama Therapist Relationship Specialty Start Date End Date Sanket Waldron DO [address] [place] [address] PCP - General FAMILY PRACTICE 05/26/23 documented as of this encounter
--- OUTSIDE RECORDS SUMMARY | 2024-04-01 07:32 | XMS_ITS | Encounter Summary ---
Author Organization [facility] Address [address] [place] [address]. [place] [address] [place] [address] Care Team Providers Care Church Organist Name Role Phone Sanket Waldron DO Primary Care Provider + Reason for Visit * Reason Comments MRI (SCAN) Encounter Details Date Type Department Care Team (Latest Contact Info) Description 01/05/2020 Scan HEALTH INFO SRVCS Scanned, Doc Med Group MRI (SCAN) Social History Tobacco Use Types Packs/Day [...] (Late Contact Info) Description 05/30/2024 7:20 AM MODEL HOME SALES GREETER Laboratory Only [facility] Family & Internal Medicine [facility] [address] [place] [address] Sanket Waldron, DO [address] [place] [address] 06/06/2024 11:40 AM MODEL HOME SALES GREETER Office Visit [facility] Family & Internal Medicine [facility] [address] [place] [address] Sanket Waldron, DO [address] [place] [address] documented as of this encounter Procedures Procedure Name Priority Date/Time Associated Diagnosis Comments MRI GENERIC 01/05/2020 MRI GENERIC 01/05/2020 documented in this encounter Results * MRI GENERIC (01/05/2020) Anatomical Region Laterality Modality Other 01/05/2020 [facility] Scanned SCANNING Final Resu lt * MRI GENERIC (01/05/2020) Anatomical Region Laterality Modality Other 01/05/2020 [facility] Scanned SCANNING Final Resu lt documented in this encounter Visit Diagnoses Not on filedocumented in this encounter Care Teams Church Organist Relationship Specialty Start Date End Date Sanket Waldron DO [address] [place] [address] PCP - General FAMILY PRACTICE 05/26/23 documented as of this encounter
--- OUTSIDE RECORDS SUMMARY | 2024-04-01 07:32 | XMS_ITS | Encounter Summary ---
Author Organization [facility] Address [address] [place] [address]. [place], [place] [id number] [place] [address] Care Team Providers Care Bobbin Cleaner Hand Name Role Phone Unavailable Primary Care Provider Unavailabl e Encounter Details Date Type Department Care Team (Late st Contact Info) Description 07/05/1997 Abstract [place] [address] , Generic Conversion, Social History Tobacco Use [...] st Contact Info) Description 05/30/2024 7:20 AM METAL POLISHER Laboratory Only [facility] Family & Internal [address] [address] Sanket Waldron DO [address] [place] [address] 06/06/2024 11:40 AM METAL POLISHER Office Visit [facility] Family & Internal [facility] [address] [place] [address] Sanket Waldron, DO [address] [place] [address] documented as of this encounter Visit Diagnoses Not on filedocumented in this encounter
--- OUTSIDE RECORDS SUMMARY | 2024-04-01 07:32 | XMS_ITS | Encounter Summary ---
Author Organization [facility] Address [address] [place] [address]. [place] [address] [place] [address] Care Team Providers Care Marketing Analytics Specialist Name Role Phone Sanket Waldron DO Primary Care Provider + Reason for Visit * Reason Comments MRI (SCAN) Encounter Details Date Type Department Care Team (Latest Contact Info) Description 12/31/2021 Scan HEALTH INFO SRVCS Scanned, Doc Med [...] (Late Contact Info) Description 05/30/2024 7:20 AM SENIOR QUANTITY SURVEYOR Laboratory Only [facility] Family & Internal Medicine [facility] [address] [place] [address] Sanket Waldron DO [address] [place] [address] 06/06/2024 11:40 AM SENIOR QUANTITY SURVEYOR Office Visit [facility] Family & Internal Medicine [facility] [address] [place] [address] Sanket Waldron, DO [address] [place] [address] documented as of this encounter Procedures Procedure Name Priority Date/Time Associated Diagnosis Comments MRI GENERIC 12/31/2021 MRI GENERIC 12/31/2021 MRI GENERIC 12/31/2021 MRI GENERIC 12/31/2021 documented in this encounter Results * MRI GENERIC (12/31/2021) Anatomical Region Laterality Modality Other 12/31/2021 [facility] Scanned SCANNING Final Resu lt * MRI GENERIC (12/31/2021) Anatomical Region Laterality Modality Other 12/31/2021 [facility] Scanned SCANNING Final Resu lt * MRI GENERIC (12/31/2021) Anatomical Region Laterality Modality Other 12/31/2021 [facility] Scanned SCANNING Final Resu lt * MRI GENERIC (12/31/2021) Anatomical Region Laterality Modality Other 12/31/2021 [facility] Scanned SCANNING Final Resu lt documented in this encounter Visit Diagnoses Not on filedocumented in this encounter Care Teams Marketing Analytics Specialist Relationship Specialty Start Date End Date Sanket Waldron DO [address] [place] [address] PCP - General FAMILY PRACTICE 05/26/23 documented as of this encounter
--- OUTSIDE RECORDS SUMMARY | 2024-04-01 07:32 | XMS_ITS | Encounter Summary ---
Author Organization [facility] Address [address] [place] [address]. [place] [address] [place] [address] Care Team Providers Care Assembler Knife Name Role Phone Sanket Waldron DO Primary Care Provider + Reason for Referral * Consultation (Routine) - Closed Specialty Diagnoses / Procedures Referred By Contac t Referred To Contact ORTHOPAEDICS Diagnoses Bilateral primary osteoarthritis of knee Procedures OFFICE/OUTPATIENT NEW LOW MDM 30-44 MINUTES OFFICE/OUTPT VISIT,NEW,LEVL IV OFFICE/OUTPT VISIT,NEW,LEVL V OFFICE/OUTPT VISIT,EST,LEVL III OFFICE/OUTPT VISIT,EST,LEVL IV OFFICE/OUTPT VISIT,EST,LEVL V Sanket Waldron DO [address] [place] [address] Phone: tel: fax: Adrien Camejo MD [address] [address] Phone: tel: fax: Referral ID Status Reason Start Date Expiration Date V isits Requested Visits Authorized [id number] Closed Specialty Services 05/14/2023 11/12/2023 6 6 Scheduling Instructions Pt wishes to see Dr. Camejo in [facility] * Imaging (Routine) - Authorized Specialty Diagnoses / Procedures Referred By Contac t Referred To Contact RADIOLOGY Diagnoses Postmenopausal Procedures BONE DENSITY/DEXA Sanket Waldron DO [address] [place] [address] Phone: tel: fax: Referral ID Status Reason Start Date Expiration Date V isits Requested Visits Authorized [id number] Authorized 05/26/2023 06/24/2024 1 1 [facility]ER[facility]SE [facility] * Imaging (Routine) - Authorized Specialty Diagnoses / Procedures Referred By Chucky acevedo Referred To Contact Diagnoses Screening mammogram for breast cancer Procedures MG SCREENING CLAUDINE DIGI Sanket Waldron DO [address] [place] [address] Phone: tel: fax: Referral ID Status Reason Start Date Expiration Date V isits Requested Visits Authorized [id number] Authorized 05/26/2023 1 1 [facility] Reason for Visit * Reason Comments Referral Request The patient presents to est care. She is requesting a referral for ortho. Encounter Details Date Type Department Care Team (Late st Contact Info) Description 05/26/2023 10:40 AM REGISTERED NURSE RENAL Office Visit [facility] Family & Internal Medicine [address] [address] Sanket Waldron DO [address] [place] [phone] Referral Request (The patient presents to est care. She is requesting a referral for ortho. ) Social History Tobacco Use Types Packs/Day [...] Sign Reading Time Taken Comments Blood Pressure 108/64 05/26/2023 11:01 AM REGISTERED NURSE RENAL Pulse 96 05/26/2023 11:01 AM REGISTERED NURSE RENAL Temperature 36.7 ??C (98 ??F) 05/26/2023 11:01 AM REGISTERED NURSE RENAL Respiratory Rate 16 05/26/2023 11:01 AM REGISTERED NURSE RENAL Oxygen Saturation 97% 05/26/2023 11:01 AM REGISTERED NURSE RENAL Inhaled Oxygen Concentration - - Weight 59.4 kg (131 lb) 05/26/2023 11:01 AM REGISTERED NURSE RENAL Height 153.7 cm (5' 0.5 ) 05/26/2023 11:01 AM CS T Body Mass Index 25.16 05/26/2023 11:01 AM REGISTERED NURSE RENAL documented in this encounter Progress Notes * Sanket Waldron, DO - 05/26/2023 10:40 AM CST Images from the original note were not included. GENERAL OFFICE VISIT Encounter Date: 05/26/2023 Chief Complaint: 67-year-old female presents for Referral Request (The patient presents to [facility]. She is requesting a referral for ortho. ) HPI: Pt presents for knee pain bilateral. Pt is requesting a referral to orthopedics. Pt states she has had injections in both knees and apparently one of these led to an infection of the joint. Pt is on gabapentin for pain as well. Pt was told she has fibromyalgia. She will likely be doing CBT through pain management. Pt is s/p mechanical aortic valve replacement. Pt has been seeing Dr. Gaines but will now see Rachel Fan NP going forward. Pt is warfarin and has this checked through them. Pt is stable at this time. Patient presents for follow-up on HLD. Patient has had HLD for multiple years. Current medications include atorvastatin. Current side effects include none. Patient does need labs drawn today. Pt has asthma. She is on albuterol prn; she uses this about once a year. Pt smoked for a very shortperiod of time inconsistently around 50 years ago. Pt had Cologuard in 2021. Pt notes a remote history of cellulitis x10 times. She is using creams for this and has been helpful. Review of Systems Constitutional: Negative for fever. Respiratory: Negative for shortness of breath. Cardiovascular: Negative for chest pain. Gastrointestinal: Negative for abdominal pain. Musculoskeletal: See HPI Psychiatric/Behavioral: Negative for depression. Patient Active Problem List Diagnosis Bicuspid aortic valve (HHS/HCC) Mixed hyperlipidemia Bilateral sciatica Chronic anticoagulation Eczema of hand H/O mechanical aortic valve replacement Bilateral primary osteoarthritis of knee Mild intermittent asthma without complication (HHS/HCC) Fibromyalgia Past Medical History: Diagnosis Date Arthritis 1986 Asthma 89 Bilateral carpal tunnel syndrome 05/26/2023 Cataract 2019 or 2020 GERD (gastroesophageal reflux disease) Glaucoma 2020 Past Surgical History: Procedure Laterality Date CARDIAC VALVE REPLACEMENT 11/06/2008 JOINT REPLACEMENT Great Toe Implant in No family history on file. Social History Socioeconomic History Marital status: Spouse name: Vipul Number of children: 2 Years of education: Not on file Highest education level: Not on file Occupational History Not on file Tobacco Use Smoking status: Former Packs/day: 0.00 [...] on file Immunization History Administered Date(s) Administered Fluzone High Dose - >Age 65 (Prefilled Syringe) 01/24/2023 Influenza 01/19/2013, 01/15/2015 Influenza Adult (Generic) 01/28/2016, 01/24/2018, 01/24/2019, 12/31/2019, 01/22/2021, 01/04/2022 PFIZER COVID-19 (ORIGINAL FORMULATION, PURPLE CAP) mRNA, [...] times daily as needed. 270 capsule 1 latanoprost (XALATAN) 0.005 % ophthalmic solution [...] UT) Cap Cyanocobalamin (B-12) 1000 MCG Tab latanoprost (XALATAN) [...] Leg Pain Molnupiravir Rash Objective: Filed Vitals: 05/26/23 1101 BP: 108/64 Pulse: 96 Resp: 16 Temp: 98 ??F (36.7 ??C) TempSrc: Skin SpO2: 97% Weight: 59.4 kg (131 lb) Height: 1.537 m (5' 0.5 ) Physical Exam Vitals and nursing note reviewed. Constitutional: Comments: Using large walking stick HENT: Head: Normocephalic and atraumatic. Right Ear: [...] & Plan: Yessy was seen today for referral request. Diagnoses and all orders for this visit: Encounter to establish care with new doctor Mild intermittent asthma without complication (HHS/HCC) - VENIPUNC ARM DRAW - CBC W/DIFF AUTOMATED; Future - COMPREHENSIVE METABOLIC PANEL; Future - TSH W/REFLEX; Future - LIPID PANEL; Future - HEPATITIS C ANTIBODY; Future Hyperlipidemia, unspecified hyperlipidemia type - VENIPUNC ARM DRAW - CBC W/DIFF AUTOMATED; Future - COMPREHENSIVE METABOLIC PANEL; Future - TSH W/REFLEX; Future - LIPID PANEL; Future Bilateral primary osteoarthritis of knee - Ambulatory referral to Orthopedics (OTHER) - gabapentin (NEURONTIN) 300 MG capsule; Take 1 capsule (300 mg total) by mouth 3 (three) times daily as needed. H/O mechanical aortic valve replacement Bicuspid aortic valve (HHS/HCC) Fibromyalgia Other chronic pain - gabapentin (NEURONTIN) 300 MG capsule; Take 1 capsule (300 mg total) by mouth 3 (three) times daily as needed. Screening mammogram for breast cancer - MG SCREENING CLAUDINE DIGI; Future Postmenopausal - BONE DENSITY/DEXA; Future Screening for endocrine, metabolic and immunity disorder - VENIPUNC ARM DRAW - CBC W/DIFF AUTOMATED; Future - COMPREHENSIVE METABOLIC PANEL; Future - TSH W/REFLEX; Future - LIPID PANEL; Future - HEPATITIS C ANTIBODY; Future Annual physical exam - VENIPUNC ARM DRAW - CBC W/DIFF AUTOMATED; Future - COMPREHENSIVE METABOLIC PANEL; Future - TSH W/REFLEX; Future - LIPID PANEL; Future - HEPATITIS C ANTIBODY; Future Need for hepatitis C screening test - HEPATITIS C ANTIBODY; Future BMI 25.0-25.9,adult Discussion/Summary: Continue gabapentin; consider duloxetine in the future and continue with pain management and CBT. Will refer to orthopedics. Continue other medications as prescribed for HLD, bicuspid aortic valve s/p mechanical valve replacement, and asthma; stable. Continue f/u with cardiology. Will order labs asper above. Will order DEXA and mammogram. Will have pt f/u in 6 months or sooner if needed. Pt v/u. Sanket Waldron DO [facility]ER[facility] documented in this encounter Plan of Treatment Upcoming Encounters Date Type Department Care Team (Late st Contact Info) Description 05/30/2024 7:20 AM REGISTERED NURSE RENAL Laboratory Only [facility] Family & Internal [address] [address] Sanket Waldron DO [facility] [place] [address] 06/06/2024 11:40 AM REGISTERED NURSE RENAL Office Visit [facility] Family & Internal [address] [address] Sanket Waldron DO [address] [place] [address] Scheduled Orders Name Type Priority Associated Diagnoses Orde r Schedule MG SCREENING CLAUDINE DIGI MAMMO Routine Screening mammogram for breast cancer Expected: 05/26/2023, Expires: 07/24/2024 BONE DENSITY/DEXA DEXA Routine Postmenopausal Expected: 05/26/2023, Expires: 06/23/2024 Scheduled Referrals Name Type Priority Associated Diagnoses Orde r Schedule Ambulatory referral to Orthopedics (OTHER) Referral Routine Bilateral primary osteoarthritis of knee Ordered: 05/26/2023 documented as of this encounter Procedures Procedure Name Priority Date/Time Associated Diagnosis Comments TSH W/REFLEX Routine 05/26/2023 12:01 PM REGISTERED NURSE RENAL Mild intermittent asthma without complication (HHS/HCC) Hyperlipidemia, unspecified hyperlipidemia type Screening for endocrine, metabolic and immunity disorder Annual physical exam COMPREHENSIVE METABOLIC PANEL Routine 05/26/2023 12:01 PM REGISTERED NURSE RENAL Mild intermittent asthma without complication (HHS/HCC) Hyperlipidemia, unspecified hyperlipidemia type Screening for endocrine, metabolic and immunity disorder Annual physical exam LIPID PANEL Routine 05/26/2023 12:01 PM REGISTERED NURSE RENAL Mild intermittent asthma without complication (HHS/HCC) Hyperlipidemia, unspecified hyperlipidemia type Screening for endocrine, metabolic and immunity disorder Annual physical exam HEPATITIS C ANTIBODY Routine 05/26/2023 12:01 PM REGISTERED NURSE RENAL Mild intermittent asthma without complication (HHS/HCC) Screening for endocrine, metabolic and immunity disorder Annual physical exam Need for hepatitis C screening test CBC W/DIFF AUTOMATED Routine 05/26/2023 12:01 PM REGISTERED NURSE RENAL Mild intermittent asthma without complication (HHS/HCC) Hyperlipidemia, unspecified hyperlipidemia type Screening for endocrine, metabolic and immunity disorder Annual physical exam VENIPUNC ARM DRAW Routine 05/26/2023 11: 25 AM REGISTERED NURSE RENAL Mild intermittent asthma without complication (HHS/HCC) Hyperlipidemia, unspecified hyperlipidemia type Screening for endocrine, metabolic and immunity disorder Annual physical exam documented in this encounter Results * HEPATITIS C ANTIBODY (05/26/2023 12:01 PM REGISTERED NURSE RENAL) HEPATITIS C AB NON-REACTI VE NON-REACT WAGNER 05/26/2023 10:23 PM REGISTERED NURSE RENAL [facility] Comment: ANTIBODIES TO HCV NOT DETECTED. DOES NOT EXCLUDE THE POSSIBILITY OF EXPOSURE TO HCV. 05/26/2023 12:0 1 PM REGISTERED NURSE RENAL Sanket Waldron DO LABORATORY Final Re sult [facility] [address] [place] [address], [phone] * LIPID PANEL (05/26/2023 12:01 PM REGISTERED NURSE RENAL) CHOLESTEROL 161 <200 MG/DL 05/26/2023 8:09 PM REGISTERED NURSE RENAL [facility] TRIGLYCERIDES 66 <150 MG/DL 05/26/2023 8:09 PM REGISTERED NURSE RENAL [facility] HDL 67 >40 MG/DL 05/26/2023 8:09 PM REGISTERED NURSE RENAL [facility] LDL-C 81 <100 MG/DL 05/26/2023 8:09 PM REGISTERED NURSE RENAL [facility] VLDL CALCULATION 13 5 - 28 MG/DL 05/26/2023 8:09 PM REGISTERED NURSE RENAL [facility] CHOL/HDL RATIO 2.4 0.0 - 4.0 05/26/2023 8:09 PM REGISTERED NURSE RENAL [facility] LDL/HDL 1.2 0.41 - 2.13 05/26/2023 8:09 PM REGISTERED NURSE RENAL [facility] NON HDL CHOLESTEROL 94 <140 MG/DL 05/26/2023 8:09 PM REGISTERED NURSE RENAL [facility] 05/26/2023 12:0 1 PM REGISTERED NURSE RENAL Sanket Waldron DO LABORATORY [facility] [address] [place] [address], * TSH W/REFLEX (05/26/2023 12:01 PM REGISTERED NURSE RENAL) TSH 1.565 0.358 - 3.740 uIU/ML 05/26/2023 8:09 PM REGISTERED NURSE RENAL [facility] 05/26/2023 12:0 1 PM REGISTERED NURSE RENAL us Sanket Waldron DO LABORATORY Final Re sult [facility] [place] [address] [place] [address], [place] [phone] * (ABNORMAL) COMPREHENSIVE METABOLIC PANEL (05/26/2023 12:01 PM REGISTERED NURSE RENAL) [facility] SODIUM S/P/B 142 136 - 145 MMOL/L 05/26/2023 8:[address] [facility] [place] POTASSIUM S/P/B 3.9 3.5 - 5.1 MMOL/L 05/26/2023 8:09 PM [facility] CHLORIDE S/P/B 102 98 - 107 MMOL/L 05/26/2023 8:09 PM [facility] CO2 32.8(H) 21 - 32 MMOL/L 05/26/2023 8:09 PM [facility] GLUCOSE 79 70 - 99 MG/DL 05/26/2023 8:09 PM [facility] BUN 20(H) 7 - 18 MG/DL 05/26/2023 8:09 PM [facility] CREATININE S/P/B 0.64 0.55 - 1.02 MG/DL 05/26/2023 8:09 PM [facility] CALCIUM S/P/B 9.7 8.4 - 10.5 MG/DL 05/26/2023 8:09 PM [facility] BILIRUBIN TOTAL S/P/B 0.5 0.2 - 1.0 MG/DL 05/26/2023 8:09 PM [facility] ALKALINE PHOSPHATASE S/P/B 113 50 - 130 U/L 05/26/2023 8:09 PM [facility] AST 30 15 - 37 U/L 05/26/2023 8:09 PM REGISTERED NURSE RENAL [facility] ALT 26 14 - 59 U/L 05/26/2023 8:09 PM REGISTERED NURSE RENAL [facility] TOTAL PROTEIN S/P/B 7.3 6.4 - 8.2 G/DL 05/26/2023 8:09 PM [facility] ALBUMIN S/P/B 3.8 3.4 - 5.0 G/DL 05/26/2023 8:09 [address] [facility] ANION GAP 7.2 5 - 15 MMOL/L 05/26/2023 8:09 PM REGISTERED NURSE RENAL [facility] Comment:REFERENCE RANGE NOT ESTABLISHED OSMOLALITY (CALC) 296 MOSM/KG 024 8:[address] [facility] Comment:REFERENCE RANGE NOT ESTABLISHED GFR ESTIMATE >90 >90 ML/MIN/1. 73 M2 05/26/2023 8:09 PM REGISTERED NURSE RENAL [facility] GFR NOTES GFR REFERENCE S: 05/26/2023 8:09 PM [facility] Comment: THE ESTIMATED GFR IS CALCULATED USING THE 2020 CKD-EPI EQUATION. THE FOLLOWING CATEGORIES FOR GRADING RENAL FUNCTION ARE RECOMMENDED BY THE INTERNATIONAL SOCIETY OF NEPHROLOGY (KDIGO 2012 CLINICAL PRACTICE GUIDELINE). G1,NORMAL OR HIGH: >89 ml/min/1.73 m2 G2,MILDLY DECREASED: 60-89 ml/min/1.73 m2 G3A,MILDLY TO MODERATELY DECREASED: 45-59 ml/min/1.73 m2 G3B,MODERATELY TO SEVERELY DECREASED: 30-44 ml/min/1.73 m2 G4,SEVERELY DECREASED: 15-29 ml/min/1.73 m2 G5,KIDNEY FAILURE: <15 ml/min/1.73 m2 05/26/2023 12:0 1 PM REGISTERED NURSE RENAL us Sanket Waldron DO LABORATORY Final Re sult [facility]OL[facility]O MENDE[facility] [place] [address] [place] [address], * (ABNORMAL) CBC W/DIFF AUTOMATED (05/26/2023 12:01 PM REGISTERED NURSE RENAL) [facility] WBC 11.05(H) 4.00 - 10.80 x10'3/uL 05/26/2023 7:48 PM [facility] RBC 4.22 4.10 - 5.40 x10'6/uL 05/26/2023 7:48 PM [facility] HGB 13.5 12.0 - 16.0 G/DL 05/26/2023 7:48 PM [facility] HCT 41.2 36.0 - 47.0 % 05/26/2023 7:48 PM [facility] MCV 97.6 78.0 - 100.0 FL 05/26/2023 7:48 PM [facility] MCH 32.0(H) 27.0 - 31.0 PG 05/26/2023 7:48 PM [facility] MCHC 32.8(L) 33.0 - 36.0 G/DL 05/26/2023 7:48 PM [facility] RDW 12.6 11.5 - 14.5 % 05/26/2023 7:48 PM [facility] PLT 232 150 - 350 x10'3/uL 05/26/2023 7:48 PM [facility] MPV 11.8(H) 7.4 - 10.4 FL 05/26/2023 7:48 PM [facility] DIFFERENTIAL TYPE AUTOMATED DIFFERENTIAL 05/26/2023 7:48 PM [facility] NEUTROPHILS % 74.2 % 05/26/2023 7:48 PM [facility] LYMPHOCYTES % 13.8 % 05/26/2023 7:48 PM [facility] MONOCYTES % 10.3 % 05/26/2023 7:48 PM [facility] EOSINOPHILS % 1.1 % 05/26/2023 7:48 PM REGISTERED NURSE RENAL [facility] BASOPHILS % 0.5 % 05/26/2023 7:48 PM REGISTERED NURSE RENAL [facility] IMMATURE GRANS % 0.1 % 05/26/2023 7:48 PM REGISTERED NURSE RENAL [facility] ABS. NEUTROPHILS 8.19 1.60 - 8.30 x10'3/uL 05/26/2023 7:48 PM REGISTERED NURSE RENAL [facility] ABS. LYMPHOCYTES 1.53 0.80 - 4.70 x10'3/uL 05/26/2023 7:48 PM REGISTERED NURSE RENAL [facility] ABS. MONOCYTES 1.14 0.00 - 1.50 x10'3/uL 05/26/2023 7:48 PM REGISTERED NURSE RENAL [facility] ABS. EOSINOPHILS 0.12 0.00 - 0.40 x10'3/uL 05/26/2023 7:48 PM REGISTERED NURSE RENAL [facility] ABS. BASOPHILS 0.06 0.00 - 0.20 x10'3/uL 05/26/2023 7:48 PM REGISTERED NURSE RENAL [facility] ABS. IMMATURE GRANULOCYTES 0.01 0.00 - 0.03 x10'3/uL 05/26/2023 7:48 PM REGISTERED NURSE RENAL [facility] 05/26/2023 12:0 1 PM REGISTERED NURSE RENAL us Sanket Waldron DO LABORATORY Final Re sult [facility] [address] [place] [address], [place] [phone] documented in this encounter Visit Diagnoses Diagnosis Encounter to establish care with new doctor- Primary Other reasons for seeking consultation Mild intermittent asthma without complication (HHS/HCC) Unspecified asthma Hyperlipidemia, unspecified hyperlipidemia type Bilateral primary osteoarthritis of knee H/O mechanical aortic valve replacement Heart valve replaced by other means Bicuspid aortic valve Congenital insufficiency of aortic valve Fibromyalgia Mylagia and myositis, unspecified Other chronic pain Screening mammogram for breast cancer Postmenopausal Asymptomatic postmenopausal status (age-related) (natural) Screening for endocrine, metabolic and immunity disorder Annual physical exam Routine general medical examination at a health care facility Need for hepatitis C screening test Special screening examination for other specified viral diseases BMI 25.0-25.9,adult Body Mass Index 25.0-25.9, adult documented in this encounter Care Teams Assembler Knife Relationship Specialty Start Date End Date Sanket Waldron DO [address] [place] [id number] PCP - General FAMILY PRACTICE 05/26/23 documented as of this encounter
--- OUTSIDE RECORDS SUMMARY | 2024-04-01 07:34 | XMS_ITS | Clinical Summary ---
Author Organization [facility] [address] Address [address] [place] [address] Care Team Providers Care Adjunct Professor Of Voice Name Role Phone Sanket Waldron Primary Care Provide r Adrien Camejo MD Unavailable [phone] Allergies Active Allergy Reactions Criticality Noted Date Comments Molnupiravir Rash Medium 05/26/2023 Pregabalin Rash Medium 01/02/2022 Medications albuterol HFA (ProAir HFA) 90 mcg/actuation inhaler Inhale 2 puffs every 4 (four) hours as needed for wheezing 1 Inhaler 1 02/23/20 20 Active LATANOPROST OPHT Administer 1 drop into affected eye(s) nightly Active gabapentin (NEURONTIN) 300 mg capsule Take 2 capsules (600 mg total) by mouth 3 (three) times a day as needed 11/23/19 22 Active artificial tears (ISOPTO TEARS) 0.5 % ophthalmic solution Administer 1 drop into both eyes as needed Active sodium chloride (OCEAN) 0.65 % nasal spray Administer 1 spray into each nostril as needed Active cyanocobalamin (Vitamin B-12) 1,000 mcg tabletIndicati ons:Prevention of Vitamin B12 Deficiency Take 1 tablet (1,000 mcg total) by mouth every morning Active aspirin 81 mg enteric coated tablet Take 1 tablet (81 mg total) by mouth every morning Active calcium carbonate-rosas min D3 (CALTRATE 600 + D) 1500 mg (600 mg elemental) -400 units per tablet Take 1 tablet by mouth every morning Active menthol 4 % gel Apply 1 Application topically as needed Active magnesium oxide 400 mg magnesium capsule Take 1 tablet by mouth nightly Active HYDROcodone-ac etaminophen (NORCO) 5-325 mg per tabletIndicati ons:Pain Take 1-2 tablets by mouth every 6 (six) hours as needed for pain (Moderate Pain) 30 tablet 08/24/19 24 Active Additional Information Patient not taking.Reported on 01/08/2024 oxyCODONE-acet aminophen (PERCOCET) 5-325 mg per tabletIndicati ons:Pain Take 1-2 tablets by mouth every 6 (six) hours as needed for pain (Severe Pain) 30 tablet 08/24/19 24 Active Additional Information Patient not taking.Reported on 01/08/2024 docusate sodium (COLACE) 100 mg capsuleIndicat ions:constipat ion Take 1 capsule (100 mg total) by mouth 2 (two) times a day 08/25/19 24 Active Additional Information Patient not taking.Reported on 01/08/2024 atorvastatin (LIPITOR) 20 mg tablet Take 1 tablet by mouth once daily 90 tablet 2 02/27/20 24 Active warfarin (COUMADIN) 2 mg tablet TAKE 2 TABLETS BY MOUTH 5 DAYS A WEEK AND 3 TABLETS 2 DAYS A WEEK OR DIRECTED BY PHYSICIAN 64 tablet 03/16/20 24 Active warfarin (COUMADIN) 2 mg tablet Take 2 tablets (4 mg total) by mouth daily Take 4mg 5 days a week and 6mg 2 days a week or as directed by physician. 64 tablet 2 01/01/20 24 024 Discontinued Active Problems Problem Noted Date Diagnosed Date Arthritis of right knee 08/24/2023 Mixed hyperlipidemia 12/10/2020 Arthralgia 07/01/2020 Assessment & Plan (11/21/2020 1:19 PM CDT): Negative rheumatology work up Extensive discussion on risks of taking celebrex including life threatening bleeding episodes, she desires to continue Assessment & Plan (07/01/2020 7:25 PM CDT): Check labs. Suspect more OA than RA. Discussed NSAIDs while on Coumadin and the risk. She states she has tried to stop and is unable due to the pain. She accepts the risk and wants to continue. May add tylenol arthritis as needed. BMI 26.0-26.9,adult 06/12/2020 Assessment & Plan (06/12/2020 9:13 AM SOLAR ENERGY INSTALLATION MANAGER): Weight/BMI is in healthy range. Continue healthy lifestyle to maintain. Bilateral sciatica 12/12/2019 Assessment & Plan (01/01/2021 5:27 PM CDT): Uncontrolled, symptoms worsening Reviewed EMG: within normal limits Reviewed MRI from 12/2019, mild-moderate central canal stenosis. Given symptoms worsening advise repeating MRI or referral to spine surgery, but she defers Continue cymbalta Assessment & Plan (11/21/2020 1:26 PM CDT): Wosening with lle numbness, EMG ordered Continue cymbalta Declines spine surgery referral, does not desire follow up with pain management Assessment & Plan (08/28/2020 12:49 PM CDT): Advise against colocynthis (banned by FDA) Can take B-100 B-complex vitamin daily & 100 mg of alpha-lipoic acid daily (can increase the dose to 300 mg twice a day over the next month) Will also start flexeril as needed and lidocaine patches Assessment & Plan (07/30/2020 9:17 AM CDT): Uncontrolled Start gabapentin Assessment & Plan (12/12/2019 9:11 AM CDT): This is a significant, separately identifiable problem that was evaluated and managed on the same day as the wellness exam Failed PT. Check Xrays NSAIDs sparingly as risk increased while on Coumadin Topicals/Tylenol Pending xrays, may need MRI Annual physical exam 12/11/2019 Assessment & Plan (01/01/2021 11:29 AM CDT): Never smoker PAP: UTD 2019 BP <140/90, continue to monitor Body mass index is 26.32 kg/m??. Discussed diet and exercise Feels safe at home Discussed skin cancer prevention and screening Advise flu Reviewed labs Assessment & Plan (12/11/2019 4:02 PM CDT): Encouraged healthy lifestyle, good nutrition and exercise. Encouraged Calcium and Vitamin D and weight bearing exercise for bone health. Reviewed immunizations Reviewed age appropirate screenings. Menopause 11/21/2018 Assessment & Plan (11/21/2018 11:30 PM CDT): Check DXA Moderate episode of recurrent major depressive d isorder 11/21/2018 Assessment & Plan (11/21/2020 1:20 PM CDT): Continue the cymbalta Assessment & Plan (07/01/2020 7:26 PM CDT): Continue the cymbalta Assessment & Plan (12/12/2019 9:10 AM CDT): Continue cymbalta. Still a lot of stress, but it is centered round her autistic adult son so difficult to mitigate Assessment & Plan (05/30/2019 1:13 PM SOLAR ENERGY INSTALLATION MANAGER): Continue the Cymbalta and monitor closely. Reviewed with patient with her increased daily stressors it may be difficult to see a change with any medication. Pt in agreement Assessment & Plan (02/20/2019 2:18 PM SOLAR ENERGY INSTALLATION MANAGER): Increase cymbalta to 60mg. Monitor closely Assessment & Plan (11/21/2018 11:32 PM CDT): This is a significant, separately identifiable problem that was evaluated and managed on the same day as the wellness exam Increased stress and pain. Start Cymbalta. Reviewed risks, benefit, alternatives, side effects and proper use. Followup in 4-6 weeks. Myalgia 11/21/2018 Assessment & Plan (11/21/2018 11:30 PM CDT): Stressed caution with NSAIDs and coumadin. Start Cymbalta to see if helps with pain as well as stress. Bicuspid aortic valve 08/28/2015 Overview (07/17/2016): Bicuspid aortic valve Assessment & Plan (11/21/2020 1:19 PM CDT): Sp mechanical valve replacement Following with cardiology Continue warfarin per cardiology H/O mechanical aortic valve replacement 08/28/19 16 Overview (10/21/2016): History of aortic valve replacement with metallic valve S/P 19 mm [place] mechanical AVR Dr. Guthrie 2008 for and bicuspid AV Assessment & Plan (08/28/2020 8:10 AM CDT): Lab Results Component Value Date INR 3.10 08/27/2020 INR 3.10 (A) 08/27/2020 INR 2.9 (H) 08/09/2020 At goal, continue current warfarin dosing Follows with cardiology Assessment & Plan (07/30/2020 9:18 AM CDT): Follows with cardiology Continue warfarin Assessment & Plan (12/12/2019 9:09 AM CDT): On Coumadin. Managed by Cardio Chronic anticoagulation 08/28/2015 Overview (07/17/2016): skilled nursing current 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 Assessment & Plan (07/30/2020 9:18 AM CDT): On warfarin 4mg daily Checking INR tomorrow Assessment & Plan (12/12/2019 9:09 AM CDT): On coumadin managed by Cardio Eczema of hand 10/17/2014 Eczema 06/16/2012 Keratosis, senilis 06/16/2012 Osteoarthritis of knee 02/03/2011 Assessment & Plan (11/21/2020 1:21 PM CDT): Consider steroid injection, she defers currently Assessment & Plan (11/21/2018 11:30 PM CDT): Tylenol prn or topical otcs Prepatellar bursitis 02/03/2011 Asthma Overview (11/21/2020): Asthma Assessment & Plan (11/21/2020 1:22 PM CDT): Continue albuterol as needed Resolved Problems Problem Noted Date Diagnosed Date Resolved Date Hypercholesteremia 12/10/2020 BMI 25.0-25.9,adult 05/30/2019 06/13/19 21 Assessment & Plan (12/12/2019 9:10 AM CDT): Weight/BMI is in healthy range. Continue healthy lifestyle to maintain. Assessment & Plan (05/30/2019 8:38 AM SOLAR ENERGY INSTALLATION MANAGER): Weight/BMI is in healthy range. Continue healthy lifestyle to maintain. BMI 26.0-26.9,adult 01/24/2019 05/30/19 20 Assessment & Plan (01/24/2019 2:39 PM CDT): Weight/BMI is in healthy range. Continue healthy lifestyle to maintain. Need for immunization against influenza 01/24/2019 12/11/2019 Assessment & Plan (02/20/2019 2:18 PM SOLAR ENERGY INSTALLATION MANAGER): Updated in office today Need for Tdap vaccination 11/21/2018 Assessment & Plan (11/21/2018 11:32 PM CDT): Tdap updated. Hypercholesteremia 08/28/2015 Overview (07/17/2016): Hypercholesterolemia Assessment & Plan (11/21/2020 1:17 PM CDT): Continue 20mg atorvastatin Assessment & Plan (07/30/2020 9:18 AM CDT): Continue 20mg atrovastatin Assessment & Plan (07/01/2020 7:26 PM CDT): Continue statin Assessment & Plan (12/12/2019 9:09 AM CDT): Encouraged patient to continue low fat/low chol diet. Continue exercise. Increase good fats in the diet. Monitor labs as needed. Continue statin Assessment & Plan (11/21/2018 11:31 PM CDT): Encouraged patient to continue low fat/low chol diet. Continue exercise. Increase good fats in the diet. Monitor labs as needed. Continue statin Congenital stenosis of aortic valve 08/27/2013 10/21/2016 Overview (07/17/2016): HUGH AORTA VALV STENOSIS Aortic valve stenosis 08/27/20132016 Overview (07/18/2016): AORTIC STENOSIS History of cardiac anomaly 08/30/2012 0 10/21/2016 Overview (07/17/2016): H/O bicuspid aortic valve S/P aortic valve replacement with bioprosthetic valve 08/30/2012 10/21/2016 Overview (10/21/2016): H/O aortic valve replacement S/P 19 mm [place] mechanical AVR Dr. Guthrie 2008 History of anticoagulant therapy 08/30/2012 11/15/2018 Overview (07/17/2016): LONG-TERM USE ANTICOAGUL Encounters Date Type Department Care Team Description 03/31/2024 Anticoagulation Visit [facility] [address] [place] [address] [address] [place] [address] [phone] Giuseppe Hernandez RN H/O mechanical aortic valve replacement (Primary Dx); Chronic anticoagulation 03/31/2024 Telephone [facility] [address] [facility] [address] [place] [address] [phone] Trina Romero MD 03/30/2024 Telephone [facility] [address] [place] [address] [address] [place] [address] [phone] Trina Romero MD 03/28/2024 Telephone [place] [address] [place] [phone] Trina Romero MD Epistaxis (Nose Bleed); INR results 03/14/2024 11:15 AM SOLAR ENERGY INSTALLATION MANAGER Ancillary Procedure [place] [address] [place] [phone] H/O mechanical aortic valve replacement 03/14/2024 Anticoagulation Visit [place] [address] [place] [phone] Giuseppe Hernandez RN H/O mechanical aortic valve replacement (Primary Dx); Chronic anticoagulation 03/07/2024 Anticoagulation Visit [place] [address] [place] [phone] Giuseppe Hernandez RN H/O mechanical aortic valve replacement (Primary Dx); Chronic anticoagulation 03/01/2024 Anticoagulation Visit [place] [address] [place] [phone] Juany Madrid RN H/O mechanical aortic valve replacement (Primary Dx); Chronic anticoagulation 02/25/2024 Telephone [place] [address] [place] [phone] Trina Romero MD INR results 02/25/2024 Anticoagulation Visit [place] [address] [place] [phone] Juany Madrid RN H/O mechanical aortic valve replacement (Primary Dx); Chronic anticoagulation 02/22/2024 Anticoagulation Visit [place] [address] [place] [phone] Juany Madrid, BHAVANA H/O mechanical aortic valve replacement (Primary Dx); Chronic anticoagulation 02/01/2024 Anticoagulation Visit [place] [address] [place] [phone] Juany Madrid, RN H/O mechanical aortic valve replacement (Primary Dx); Chronic anticoagulation 01/11/2024 Anticoagulation Visit [facility] [address] [place] [phone] Juany Madrid RN H/O mechanical aortic valve replacement (Primary Dx); Chronic anticoagulation 01/08/2024 1:30 PM CDT Office Visit [facility] [address] [place] [phone] Rachel Mott NP H/O mechanical aortic valve replacement (Primary Dx); Presence of prosthetic heart valve; Chronic anticoagulation; Dyslipidemia from Last 3 Months Immunizations Name Administration Dates Next Due Flucelvax Influenza Quad 01/24/2018,01/28/2016 Influenza, Quadrivalent, Sarah l Culture-based MDCK, Preservative Free, Antibiotic Free, Intramuscular 01/25/2018 Influenza, Quadrivalent, Spl it, Preservative Free, Intramuscular 12/31/2019,01/24/2019 Influenza, Trivalent, IM (MDV) 01/19/2013 Influenza, Trivalent, Preservative Free, Intramu scular 01/15/2015 Td, adsorbed 01/28/2016 Tdap 11/17/2018,10/29/2012 ZOSTER Recombinant 11/10/2018,08/26/2018 Surgical History Surgery Date Site/Laterality Comments CARPAL TUNNEL RELEASE Surgery for Carpal Tunnel MITRAL VALVE REPLACEMENT 10/11/2008 - 11/10/2008 BUNIONECTOMY FOOT NEUROMA SURGERY TOE SURGERY CERVICAL CERCLAGE CARDIAC VALVE REPLACEMENT November 06, 2008 JOINT REPLACEMENT ? Medical History Medical History Date Comments Asthma Asthma Eczema eczema Hx Other Medical diverticulosis Arthritis Myalgia Mitral valve prolapse GERD (gastroesophageal reflu x disease) at least 10 years Cataract diagnosed 2019 Depression supposedly; but feel it's a misdiagnosis. Heart disease Neuromuscular disorder (HCC) Have had sciatica f or 17 months. Family History Medical History Relation Name Comments Arthritis Father Ravin Knott Hearing loss Father Ravin Knott Heart attack Father Ravin Knott Other Father Ravin Knott [place] age 50, CABG ; Clotting disorder Mother Liliam Hockeborn Other Mother Liliam Hockeborn H/O CVA, d ied 2012; Stroke Mother Liliam Hockeborn Vision loss Mother Liliam Hockeborn brain tumor Sister 1 Cancer Sister 2 Anusha Knott Other Sister 2 Anusha Knott MVP; Arthritis Sister 3 Maria Isabel Bermeosjuan alberto Diabetes Sister 3 Maria Isabeljohn Leone Arthritis Sister 4 Yary Knott defects Son Denis Nixon Developmental delay Son Denis Nixon Hyperlipidemia Son Denis Nixon Vision loss Son Denis Nixon Relation Name Status Comments Father Ravin Knott Alive Mother Liliam Villafanakeborn Sister 1 Alive Sister 2 Anusha Knott Sister 3 Maria Isabel Bermeos[place] Sister 4 Yary Knott Son Denis Nixon Social History Tobacco Use Types Packs/Day Years Used Date Smoking Tobacco: Never Smokeless Tobacco: Never Tobacco Cessation:Counseling Given: Not Answered Alcohol Use Standard Drinks/Week Comments Yes 1 (1 standard drink = 0.6 oz pur e alcohol) socially AUDIT-C Answer Date Recorded Q1: How often do you have a drink containing alc ohol? Monthly or less 08/24/2023 Q2: How many drinks containi ng alcohol do you have on a typical day when you are drinking? 1 or 2 08/24/2023 Q3: How often do you have si x or more drinks on one occasion? Never 08/24/2023 PHQ-2 Answer Date Recorded PHQ-2 Total Score (If total score is 3 or more points, staff should administer the PHQ-9) 0 06/12/2020 Personal Safety Answer Date Recorded Have you ever been in or are you currently in a harmful physical or emotional relationship or is someone making you feel afraid or unsafe? 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 Not on file Not on file Obstetrics History Last Filed Vital Signs Vital Sign Reading Time Taken Comments Blood Pressure 102/62 01/08/2024 1:33 PM CDT Pulse 85 01/08/2024 1:33 PM CDT Temperature 36.3 ??C (97.4 ??F) 08/25/2023 11:10 AM C DT Respiratory Rate 16 08/25/2023 11:10 AM CDT Oxygen Saturation 98% 01/08/2024 1:33 PM CDT Inhaled Oxygen Concentration - - Weight 59 kg (130 lb) 01/08/2024 1:33 PM CDT Height 152.4 cm (5') 01/08/2024 1:33 PM CDT Body Mass Index 25.39 01/08/2024 1:33 PM CDT Plan of Treatment Health Maintenance Due Date Last Done Comments Hepatitis C Screening 1955 Pneumococcal vaccine 65+ (1 of 2 - PCV) 08/21/1963 Hepatitis B Screening 08/21/1975 Osteoporosis Screening-Bone Density Scan 02/21/2021 02/21/2019 Breast Cancer Screening-Mammogram 02/23/2021 020, 02/21/2019 Depression Screening 06/12/2021 06/12/2020, 12/12/2019, 12/12/2019, Additional history exists Colon Cancer Screening-DNA Stool 12/06/2021 12/07/19 19 Well Visit 65+ 2022 12/12/2019, 11/17/2018 Fall Risk Assessment 08/24/2024 08/25/2023, 06/12/2020, 12/12/2019, Additional history exists DTaP/Tdap/Td Vaccine (4 - Td or Tdap) 11/17/2028 11/17/2018, 01/28/2016, 10/29/2012 Zoster Vaccine Completed 11/10/2018, 08/26/2018 Cervical Cancer Screening Discontinued 11/17/2018 Influenza Vaccine Completed 02/03/2024, , 01/22/2021, Additional history exists Medical Devices Implanted Type Area Insurance Case Manager Device Identifier Shelf Expiration Date Model / Serial / Lot [employer] Simplex P Radiopaque Full Dose Cement Bone Sterile 6191-1-010 - [id number] Implanted:Qty: 1 on 08/24/2023 by Adrien Camejo MD at [facility] Right: Knee [employer] [id number] 08/10/2025 6191-1-01 0 / / [id number] [employer] Ascent Maxim 63mm 1 Piece Cruciate Fin Knee Tray Tibial Interlok [id number] - [id number] Implanted:Qty: 1 on 08/24/2023 by Adrien Camejo MD at [facility] Right: Knee [employer] 09/11/2032 [id number] / / [id number] [employer] Vanguard 60mm Cruciate Retaining Knee Right Component Femoral [id number] - [id number] Implanted:Qty: 1 on 08/24/2023 by Adrien Camejo MD at [facility] Right: Knee [employer] [id number] 07/26/2032 [id number] / / [id number] [employer] Bearing [id number] Vanguard Arcom Knee Cruciate Retain Direct [id number] - [id number] Implanted:Qty: 1 on 08/24/2023 by Adrien Camejo MD at [facility] Right: Knee [employer] [id number] 04/01/2028 [id number] / / [id number] Procedures Procedure Name Priority Date/Time Associated Diagnosis Comments PROTIME-INR Routine 03/30/2024 TRANSTHORACIC ECHO (TTE) COMPLETE W DOPPLER/CF WO CONTRAST Routine 03/14/2024 11:57 AM SOLAR ENERGY INSTALLATION MANAGER H/O mechanical aortic valve replacement PROTIME-INR Routine 03/14/2024 PROTIME-INR Routine 03/07/2024 PROTIME-INR Routine 03/01/2024 PROTIME-INR Routine 02/25/2024 PROTIME-INR Routine 02/22/2024 PROTIME-INR Routine 02/01/2024 PROTIME-INR Routine 01/11/2024 POCT LIPID PANEL Routine 01/08/2024 1:39 PM CDT Dyslipidemia SCREENING MAMMOGRAM BILATERAL W THAI Schedule Routine, Read Routine (OP Routine) 02/24/2020 Breast cancer screening by mammogram HM DEXA SCAN Routine 02/21/2019 HM DNA STOOL Routine 12/06/2018 HM PAP SMEAR WITH HPV Routine 11/17/2018 from Last 3 Months or Most Recently Relevant to Health Maintenance Results * (ABNORMAL) Protime-INR (03/30/2024) INR 2.80(A) 0.90 - 1.10 EXTERNAL LAB Blood us Historical Provider LAB BLOOD ORDERABLES Antonina david Result EXTERNAL LAB * TRANSTHORACIC ECHO (TTE) COMPLETE W DOPPLER/CF WO CONTRAST (03/14/2024 11:57 AM SOLAR ENERGY INSTALLATION MANAGER) Anatomical Region Laterality Modality Ultrasound 03/14/2024 11:4 2 AM SOLAR ENERGY INSTALLATION MANAGER Narrative 03/14/2024 1:59 PM SOLAR ENERGY INSTALLATION MANAGER [facility] [address] [facility] [address], [place] [address] [address] [facility] [address], [place] [address] P:[phone] P:[phone] Echocardiographic Report Patient Name: YESSY NIXON M : 1955 Study Date: 03/14/2024 11:42:37 AM Gender: F Tech: Ref Provider: RACHEL MOTT Height(Cm): 152 BSA: 1.58 Weight(Kg): 59 ?Heart Rate: 74 BP: 121 / 71 ?Quality: Good Order Provider: RACHEL MOTT PROCEDURES: Echocardiographic Report: Transthoracic echocardiogram with complete 2D, M-Mode, and color Doppler examination. With Strain Analysis. INDICATIONS: Z95.2 Presence of prosthetic heart valve. Measurements: 2D/M Mode ?Doppler Measurement ?Value ?Normal Range ?Measurement ?Value ?Normal Range LVIDd 2D ? 3.60 ? [ 3.80 - 5.20 ] cm ?LYNSEY Vmax ? 1.38 ? [ 2.00 - 4.00 ] cm2 LVIDs 2D ? 2.79 ? [ 2.20 - 3.50 ] cm ?AV Mean PG ? 10 ? mmHg LVPWd 2D ? 1.08 ? [ 0.60 - 0.90 ] cm ?AV Peak Alvaro ?2.22 ? [ 1.00 - 1.70 ] m/s IVSd 2D ?1.12 ? [ 0.60 - 0.90 ] cm ?AV Peak PG ? 20 ? mmHg LA Volume Index ?21 ? [ 16 - 34 ] cc/m2 ? AV VTI ? 36.72 ?cm ___ ?___ ?___ ? LVOT Diam ?2.14 ? [ 1.70 - 2.10 ] cm ___ ?___ ?___ ? LVOT Peak Alvaro ?0.85 ? [ 0.70 - 1.10 ] m/s ___ ?___ ?___ ? LVOT VTI ? 16.93 ?cm ___ ?___ ?___ ? MV E Peak Alvaro ?0.55 ? [ 0.60 - 1.30 ] m/s ___ ?___ ?___ ? MV A Peak Alvaro ?0.75 ? [ 1.00 - 1.20 ] m/s ___ ?___ ?___ ? MV Decel Time ?154 ?[ 104 - 258 ] msec ___ ?___ ?___ ? Lateral E` ? 0.08 ? [ 0.10 - 0.15 ] m/s ___ ?___ ?___ ? E` ? 0.07 ? m/s E/E` ? 7 Measurement ?Value ?Normal Range ?Measurement ?Value ?Normal Range 2D/M Mode ?Doppler - FINDINGS: Interpretation Site: Exam was interpreted at [facility]. Left Ventricle: Normal left ventricular size. Mild concentric left ventricular hypertrophy. Normal global left ventricular systolic function. Impaired diastolic relaxation Grade I. Ejection fraction is visually estimated at 55 %. Ejection fraction is measured at 58 %. Global Longitudinal Strain is -18 %. Right Ventricle: Normal right ventricular size. Left Atrium: The left atrium is normal in size. Right Atrium: The right atrium is normal in size. Atrial Septum: Normal atrial septum. Mitral Valve: Normal appearance of the mitral valve. Aortic Valve: Aortic valve not well visualized. Trace aortic valve regurgitation. Gradients normal for valve type and size. Tricuspid Valve: Normal appearance of the tricuspid valve. Trivial regurgitation in the tricuspid valve. Pulmonic Valve: Normal appearance of the pulmonic valve. Pericardium: Normal pericardium with no significant pericardial effusion. Aorta: Normal aortic root. IVC: Normal size and normal respiratory collapse consistent with normal right atrial pressure (<5 mmHg). Pulmonary Artery: Normal pulmonary artery size. CONCLUSIONS: Normal left ventricular size. Mild concentric left ventricular hypertrophy. Normal global left ventricular systolic function. Impaired diastolic relaxation Grade I. Ejection fraction is visually estimated at 55 %. Ejection fraction is measured at 58 %. Global Longitudinal Strain is -18 %. The left atrium is normal in size. Aortic valve prosthesis is not well visualized. Trace aortic valve regurgitation. Gradients normal for valve type and size. Electronically Signed By: Dat Chauhan MD, [facility] 2024-03-14 13:58:46 SOLAR ENERGY INSTALLATION MANAGER Procedure Note Dat Chauhan MD - 03/14/2024 [facility] [address], [place] [address] [address] [facility] [id number], [place] [address] P:[phone] P:[phone] Echocardiographic Report Patient Name: YESSY NIXON M : 1955 Study Date: 03/14/2024 11:42:37 AM Gender: F Tech: JM Ref Provider: RACHEL MOTT Height(Cm): 152 BSA: 1.58 Weight(Kg): 59 Heart Rate: 74 BP: 121 / 71 Quality: Good Order Provider: RACHEL MOTT PROCEDURES: Echocardiographic Report: Transthoracic echocardiogram with complete 2D, M-Mode, and color Dopplerexamination. With Strain Analysis. INDICATIONS: Z95.2 Presence of prosthetic heart valve. Measurements: 2D/M ModeDoppler Measurement Value Normal Range Measurement ValueNormal Range LVIDd 2D 3.60 [ 3.80 - 5.20 ] cm LYNSEY Vmax 1.38[ 2.00 - 4.00 ] cm2 LVIDs 2D 2.79 [ 2.20 - 3.50 ] cm AV Mean PG 10mmHg LVPWd 2D 1.08 [ 0.60 - 0.90 ] cm AV Peak Alvaro 2.22[ 1.00 - 1.70 ] m/s IVSd 2D 1.12 [ 0.60 - 0.90 ] cm AV Peak PG 20mmHg LA Volume Index 21 [ 16 - 34 ] cc/m2 AV VTI 36.72cm ___ ___ ___ LVOT Diam 2.14[ 1.70 - 2.10 ] cm ___ ___ ___ LVOT Peak Alvaro 0.85[ 0.70 - 1.10 ] m/s ___ ___ ___ LVOT VTI 16.93cm ___ ___ ___ MV E Peak Alvaro 0.55[ 0.60 - 1.30 ] m/s ___ ___ ___ MV A Peak Alvaro 0.75[ 1.00 - 1.20 ] m/s ___ ___ ___ MV Decel Time 154[ 104 - 258 ] msec ___ ___ ___ Lateral E` 0.08[ 0.10 - 0.15 ] m/s ___ ___ ___ E` 0.07m/s E/E` 7 Measurement Value Normal Range Measurement ValueNormal Range 2D/M ModeDoppler - FINDINGS: Interpretation Site: Exam was interpreted at [facility]. Left Ventricle: Normal left ventricular size. Mild concentric left ventricularhypertrophy. Normal global left ventricular systolic function. Impaired diastolic relaxation Grade I.Ejection fraction is visually estimated at 55 %. Ejection fraction is measured at58 %. Global Longitudinal Strain is -18 %. Right Ventricle: Normal right ventricular size. Left Atrium: The left atrium is normal in size. Right Atrium: The right atrium is normal in size. Atrial Septum: Normal atrial septum. Mitral Valve: Normal appearance of the mitral valve. Aortic Valve: Aortic valve not well visualized. Trace aortic valve regurgitation.Gradients normal for valve type and size. Tricuspid Valve: Normal appearance of the tricuspid valve. Trivial regurgitation in thetricuspid valve. Pulmonic Valve: Normal appearance of the pulmonic valve. Pericardium: Normal pericardium with no significant pericardial effusion. Aorta: Normal aortic root. IVC: Normal size and normal respiratory collapse consistent with normal rightatrial pressure (<5 mmHg). Pulmonary Artery: Normal pulmonary artery size. CONCLUSIONS: Normal left ventricular size. Mild concentric left ventricularhypertrophy. Normal global left ventricular systolic function. Impaired diastolic relaxation Grade I.Ejection fraction is visually estimated at 55 %. Ejection fraction is measured at58 %. Global Longitudinal Strain is -18 %. The left atrium is normal in size. Aortic valve prosthesis is not well visualized. Trace aortic valveregurgitation. Gradients normal for valve type and size. Electronically Signed By: Dat Chauhan MD, [facility] 2024-03-14 13:58:46 SOLAR ENERGY INSTALLATION MANAGER Rachel Mott NP CV ECHO PROCEDURES Final Result * (ABNORMAL) Protime-INR (03/14/2024) INR 3.10(A) 0.90 - 1.10 EXTERNAL LAB Blood Historical Provider LAB BLOOD ORDERABLES Antonina hernandez Result EXTERNAL LAB * (ABNORMAL) Protime-INR (03/07/2024) INR 3.50(A) 0.90 - 1.10 EXTERNAL LAB Blood Result [facility] Provider MD LAB BLOOD ORDERABLES Antonina l Result EXTERNAL LAB * (ABNORMAL) Protime-INR (03/01/2024) INR 4.60(A) 0.90 - 1.10 EXTERNAL LAB Blood Result [facility] Provider MD LAB BLOOD ORDERABLES Antonina l Result EXTERNAL LAB * (ABNORMAL) Protime-INR (02/25/2024) INR 3.60(A) 0.90 - 1.10 EXTERNAL LAB Blood Result [facility] Provider MD LAB BLOOD ORDERABLES Antonina l Result Performing Organization Address [facility] Co de Phone Number EXTERNAL LAB * (ABNORMAL) Protime-INR (02/22/2024) INR 4.50(A) 0.90 - 1.10 EXTERNAL LAB Blood Result [facility] Provider MD LAB BLOOD ORDERABLES Antonina l Result Performing Organization Address [facility]/ZIP Co de Phone Number EXTERNAL LAB * (ABNORMAL) Protime-INR (02/01/2024) INR 3.20(A) 0.90 - 1.10 EXTERNAL LAB Blood Result [facility] Provider MD LAB BLOOD ORDERABLES Antonina l Result EXTERNAL LAB * (ABNORMAL) Protime-INR (01/11/2024) INR 2.60(A) 0.90 - 1.10 EXTERNAL LAB Blood Result [facility] Provider MD LAB BLOOD ORDERABLES Antonina l Result EXTERNAL LAB * POCT lipid panel (01/08/2024 1:39 PM CDT) Cholesterol, POC 145 mg/dL HDL, POC 51 mg/dL Triglycerides, POC 85 mg/dL LDL Cholesterol POC 76 mg/dL Chol/HDL Ratio, POC 1.5 Non-HDL Cholesterol, POC 93 mg/dL Cholesterol Total, POC 145 mg/dL Capillary blood 01/08/2024 1 :39 PM CDT Rachel Mott NP POINT OF CARE TEST ORDERA BLES Final Result * Screening Mammogram Bilateral W Thai (02/24/2020) Anatomical Region Laterality Modality Breast Bilateral Mammography Impressions 02/24/2020 Recommend routine F/U in one year. BI-RADS Category 1: negative Helena DAVEY IMG MAMMO PROCEDURES Final Result * DEXA SCAN (02/21/2019) DEXA Scan Abnormal Comment:Moise-Spine (-0.8 ), LT Hip (-1.3), RT Hip (-1.1) Result [facility] Historical Provider HEALTH MAINTENANCE Final Result * DNA STOOL (12/06/2018) Pathologist [facility] COLOGUARD Normal Historical Provider HEALTH MAINTENANCE Final Result * PAP SMEAR WITH HPV (11/17/2018) Pathologist [facility] Pap smear Normal Narrative Helena Yu PA - 11/17/2018 Neg (atrophic) with negative HPV Historical Provider HEALTH MAINTENANCE Final Result from Last 3 Months or Most Recently Relevant to Health Maintenance Insurance [facility] Advance Directives For more information, please contact: [phone] * Full Code (Latest Code Status on File) Date Activated Date Inactivated Comments 08/24/2023 5:34 PM 08/25/2023 6:10 PM Care Teams Adjunct Professor Of Voice Relationship Specialty Start Date End Date Sanket Waldron DO [address] [place] [id number] PCP - General 05/26/23 Adrien Camejo MD [address] [address] Consulting Physician Orthopedic Surgery 08/25/23
--- OUTSIDE RECORDS SUMMARY | 2024-04-01 07:34 | XMS_ITS | Clinical Summary ---
Author Organization [facility] Address [address] [place] [id number] Care Team Providers Care Agricultural Researcher Name Role Phone Unavailable Primary Care Provider Unavailabl e Social History Tobacco Use Types Packs/Day Years Used Date Smoking Tobacco: Never Assessed Comments Unknown Sex and Gender Information Value Date Recorded Sex Assigned at Not on file Legal Sex Female 10:46 PM CDT Gender Identity Not on file Sexual Orientation Not on file Plan of Treatment Health Maintenance Due Date Last Done Comments DEXA Bone Density 1955 Hepatitis C Virus (HCV) Screening 1955 Colonoscopy 2002 Colorectal Cancer Screening 2002 Cologuard 08/21/2007 Immunochemical Fecal Occult Blood 08/21/2007 Mammogram 08/21/2007 Pneumococcal Immunization (65+ years) (1 of - PCV) 2022 SARS-COV-2 Immunization ( season) 2022 03/23/2021, 06/28/2020, 06/07/2020 Influenza Immunization (Season Ended) 2023 12/31/2019, 01/24/2019, 01/24/2018, Additional history exists Zoster Immunization Completed 11/08/2018, 9 DTaP/Tdap/Td Immunization Discontinued 2018, 01/28/2016, 10/29/2012 TdaP Immunization Completed 11/17/2018, 10/29/2012 Hepatitis B Immunization Aged Out No longer eligible based on patient's age to complete this topic Meningococcal Immunization (ACWY) Aged Out No longer eligible based on patient's age to complete this topic Rotavirus Immunization Aged Out No lo nger eligible based on patient's age to complete this topic
--- OUTSIDE RECORDS SUMMARY | 2024-04-01 07:34 | XMS_ITS | Encounter Summary ---
Author Organization [facility] Address [address] [place] [address] Care Team Providers Care Fruit Or Nut Crops Farm Manager Name Role Phone Unavailable Primary Care Provider Unavailabl e Encounter Details Date Type Department Care Team (Late st Contact Info) Description 02/12/2020 12:00 PM AFTER SCHOOL PROGRAM DIRECTOR Rapid Evaluation [place] [facility] Community Testing [facility] [address] [place] [address] Social History Tobacco Use Types Packs/Day Years Used Date Smoking Tobacco: Never Assessed Comments Unknown Sex and Gender Information Value Date Recorded Sex Assigned at Not on file Legal Sex Female 10:46 PM CDT Gender Identity Not on file Sexual Orientation Not on file documented as of this encounter Plan of Treatment Not on file documented as of this encounter Visit Diagnoses Not on filedocumented in this encounter
--- OUTSIDE RECORDS SUMMARY | 2024-04-01 07:34 | XMS_ITS | Encounter Summary ---
Author Organization [facility] Address [address] [place] [id number] Care Team Providers Care Geochemical Laboratory Technician Name Role Phone Unavailable Primary Care Provider Unavailabl e Encounter Details Date Type Department Care Team (Late st Contact Info) Description 02/12/2020 Lab Requisition [facility] Community Testing [facility] [address] [place], [place] [id number] [place] [address] [place] [address] Social History Tobacco Use Types Packs/Day Years [...] Procedure Name Priority Date/Time Associated Diagnosis Comments SARS-COV-2 PCR [facility] ONLY Routine 02/12/2020 11:39 AM THERAPIST RADIATION documented in this encounter Visit Diagnoses Not on filedocumented in this encounter
--- OUTSIDE RECORDS SUMMARY | 2024-04-01 07:35 | XMS_ITS | Encounter Summary ---
Author Organization [facility] Healthcare Address [address] [place] [address] Care Team Providers Care Line Worker Name Role Phone Sanket Waldron Primary Care Provide r Adrien Camejo MD Unavailable [phone] Encounter Details Date Type Department Care Team (Latest Contact Info) Description 12/24/2023 Anticoagulation Visit [facility] Medical Group Cardiology [address] [place] [phone] Juany Madrid RN H/O mechanical aortic valve replacement (Primary Dx); Chronic anticoagulation Social History Tobacco Use Types Packs/Day Years Used Date Smoking Tobacco: Never Smokeless Tobacco: Never Alcohol Use Standard Drinks/Week Comments Yes 1 [...] on file Legal Sex Female 8:13 AM DUMPER OPERATOR Gender Identity Female 06/01/2020 9:42 PM DUMPER OPERATOR Sexual Orientation Straight 06/01/2020 9: 42 PM DUMPER OPERATOR 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 Not on file Not on file documented as of this encounter Plan of Treatment Not on file documented as of this encounter Procedures Procedure Name Priority Date/Time Associated Diagnosis Comments PROTIME-INR Routine 12/24/2023 documented in this encounter Results * (ABNORMAL) Protime-INR (12/24/2023) INR 2.20(A) 0.90 - 1.10 EXTERNAL LAB Blood us Historical Provider LAB BLOOD ORDERABLES Antonina l Result EXTERNAL LAB documented in this encounter Visit Diagnoses Diagnosis H/O mechanical aortic valve replacement- Primary Chronic anticoagulation Encounter for long-term (current) 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s documented in this encounter Care Teams Line Worker Relationship Specialty Start Date End Date Sanket Waldron DO [address] [place] [id number] PCP - General 05/26/23 Adrien Camejo MD [address] [place] [address] [address] Consulting Physician Orthopedic Surgery 08/25/23 documented as of this encounter
--- OUTSIDE RECORDS SUMMARY | 2024-04-01 07:35 | XMS_ITS | Encounter Summary ---
Author Organization [facility] Healthcare Address [address] [place] [address] Care Team Providers Care Tso Name Role Phone KonstantinyolandaandreyGeraldine shenchary Phillip THOMPSON Primary Care Provide r Adrien Camejo MD Unavailable [phone] Encounter Details Date Type Department Care Team (Late st Contact Info) Description 09/14/2023 Orders Only [facility] Information Management [address] [place] [id number] Scanning, Provider Social History Tobacco Use Types Packs/Day [...] on file Legal Sex Female 8:13 AM MS ACCESS DATABASE DEVELOPER Gender Identity Female 06/01/2020 9:42 PM MS ACCESS DATABASE DEVELOPER Sexual Orientation Straight 06/01/2020 9: 42 PM MS ACCESS DATABASE DEVELOPER 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 Not on file Not on file documented as of this encounter Plan of Treatment Not on file documented as of this encounter Procedures Procedure Name Priority Date/Time Associated Diagnosis Comments SCAN - LABS 09/14/2023 documented in this encounter Results * SCAN - LABS (09/14/2023) us Provider Scanning Final Result documented in this encounter Visit Diagnoses Not on filedocumented in this encounter Care Teams Tso Relationship Specialty Start Date End Date Sanket Waldron DO [address] [place] [phone] PCP - General 05/26/23 Adrien Camejo MD [address] [facility] [address] [address] Consulting Physician Orthopedic Surgery 08/25/23 documented as of this encounter
--- OUTSIDE RECORDS SUMMARY | 2024-04-01 07:35 | XMS_ITS | Encounter Summary ---
Author Organization [facility] Healthcare Address [address] [place] [address] Care Team Providers Care Control Integration Engineer Name Role Phone KonstantinSanket dolan DO Primary Care Provide r Adrien Camejo MD Unavailable [phone] Encounter Details Date Type Department Care Team (Late st Contact Info) Description 11/16/2023 Telephone [facility] Medical Group Cardiology [address] [facility] [address] [place] [address] Rachel Fan NP [address] [place] [address] Social History Tobacco Use Types Packs/Day Years [...] on file Legal Sex Female 8:13 AM HEALTH CENTER ASSISTANT Gender Identity Female 06/01/2020 9:42 PM HEALTH CENTER ASSISTANT Sexual Orientation Straight 06/01/2020 9: 42 PM HEALTH CENTER ASSISTANT 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 * Telephone Encounter - Marley Neves - 11/16/2023 11:30 AM CDT Pt returning call from nurse Harrington to discuss INR results. Contact: documented in this encounter Plan of Treatment Not on file documented as of this encounter Visit Diagnoses Not on filedocumented in this encounter Care Teams Control Integration Engineer Relationship Specialty Start Date End Date Sanket Waldron DO [address] [place] [id number] PCP - General 05/26/23 Adrien Camejo MD [address] [address] Consulting Physician Orthopedic Surgery 08/25/23 documented as of this encounter
--- OUTSIDE RECORDS SUMMARY | 2024-04-01 07:35 | XMS_ITS | Referral Summary ---
Author Organization [address] Address [address] [facility] [address] [place] [address] Care Team Providers Care Art Editor Name Role Phone Sanket Waldron Primary Care Provide r Adrien Camejo MD Unavailable Encounters Date Type Department Care Team Description 03/31/2024 Anticoagulation Visit [facility] Cardiology [address] [facility] [address] [place] [phone] Giuseppe Hernandez RN H/O mechanical aortic valve replacement (Primary Dx); Chronic anticoagulation 03/31/2024 Telephone [facility] Cardiology [address] [facility] [address] [place] [address] Trina Romero MD 03/30/2024 Telephone [facility] Cardiology [address] [place] [address] [address] [place] [address] Trina Romero MD 03/28/2024 Telephone [facility] Cardiology [address] [place] [address] [address] [place] [phone] Trina Romero MD Epistaxis (Nose Bleed); INR results 03/14/2024 Anticoagulation Visit [facility] Cardiology [address] [facility] [address] [place] [phone] Giuseppe Hernandez RN H/O mechanical aortic valve replacement (Primary Dx); Chronic anticoagulation 03/14/2024 11:15 AM YARN HAULER Ancillary Procedure [facility] Cardiology [address] [place] [address] [place] [phone] H/O mechanical aortic valve replacement 03/07/2024 Anticoagulation Visit [place] [address] [place] [phone] Giuseppe Hernandez RN H/O mechanical aortic valve replacement (Primary Dx); Chronic anticoagulation 03/01/2024 Anticoagulation Visit [facility] Cardiology [address] [place] [address] [place] [phone] Juany Madrid, BHAVANA H/O mechanical aortic valve replacement (Primary Dx); Chronic anticoagulation 02/25/2024 Telephone [place] [address] [place] [phone] Trina Romero MD INR results 02/25/2024 Anticoagulation Visit [place] [address] [place] [phone] Juany Madrid RN H/O mechanical aortic valve replacement (Primary Dx); Chronic anticoagulation 02/22/2024 Anticoagulation Visit [place] [address] [place] [phone] Juany Madrid, BHAVANA H/O mechanical aortic valve replacement (Primary Dx); Chronic anticoagulation 02/01/2024 Anticoagulation Visit [place] [address] [place] [phone] Juany Madrid RN H/O mechanical aortic valve replacement (Primary Dx); Chronic anticoagulation 01/11/2024 Anticoagulation Visit [place] [address] [place] [phone] Juany Madrid RN H/O mechanical aortic valve replacement (Primary Dx); Chronic anticoagulation 01/08/2024 1:30 PM CDT Office Visit [place] [address] [place] [phone] Rachel Mott NP H/O mechanical aortic valve replacement (Primary Dx); Presence of prosthetic heart valve; Chronic anticoagulation; Dyslipidemia from Last 3 Months Allergies Active Allergy Reactions Criticality Noted Date [...] (three) times a day as needed 11/23/19 Active artificial tears (ISOPTO TEARS) 0.5 % [...] 06/12/2020 Assessment & Plan (06/12/2020 9:13 AM YARN HAULER): Weight/BMI is in healthy range. Continue healthy [...] mitigate Assessment & Plan (05/30/2019 1:13 PM YARN HAULER): Continue the Cymbalta and monitor closely. Reviewed with patient with her increased daily stressors it may be difficult to see a change with any medication. Pt in agreement Assessment & Plan (02/20/2019 2:18 PM YARN HAULER): Increase cymbalta to 60mg. Monitor closely Assessment [...] replacement with metallic valve S/P 19 mm [place] mechanical AVR Dr. Guthrie 2008 for and [...] by Cardio Chronic anticoagulation 08/28/2015 Overview (07/17/2016): medical terminologist current 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 Assessment & Plan [...] maintain. Assessment & Plan (05/30/2019 8:38 AM YARN HAULER): Weight/BMI is in healthy range. Continue healthy lifestyle to maintain. BMI 26.0-26.9,adult 01/24/2019 05/30/19 20 Assessment & Plan (01/24/2019 2:39 PM CDT): Weight/BMI is in healthy range. Continue healthy lifestyle to maintain. Need for immunization against influenza 01/24/2019 12/11/2019 Assessment & Plan (02/20/2019 2:18 PM YARN HAULER): Updated in office today Need for Tdap [...] H/O aortic valve replacement S/P 19 mm [place] mechanical AVR Dr. Guthrie 2008 History of anticoagulant therapy 08/30/2012 11/15/2018 Overview (07/17/2016): LONG-TERM USE ANTICOAGUL Immunizations Name Administration Dates Next Due Flucelvax Influenza Quad 01/24/2018,01/28/2016 Influenza, Quadrivalent, Sarah l Culture-based MDCK, Preservative Free, Antibiotic Free, Intramuscular 01/25/2018 Influenza, Quadrivalent, Spl it, Preservative Free, Intramuscular 12/31/2019,01/24/2019 Influenza, Trivalent, IM (MDV) 01/19/2013 Influenza, Trivalent, Preservative Free, Intramu scular 01/15/2015 Td, adsorbed 01/28/2016 Tdap 11/17/2018,10/29/2012 ZOSTER Recombinant 11/10/2018,08/26/2018 Social History Tobacco Use Types Packs/Day Years [...] on file Legal Sex Female 8:13 AM YARN HAULER Gender Identity Female 06/01/2020 9:42 PM YARN HAULER Sexual Orientation Straight 06/01/2020 9: 42 PM YARN HAULER 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 Not on file Not on file Last Filed Vital Signs [...] 01/08/2024 1:33 PM CDT Plan of Treatment Not on file Medical Devices Implanted Type Area Commercial Specialist Device Identifier Shelf Expiration Date Model / Serial / Lot Candy Orthopaedics Simplex P Radiopaque Full Dose Cement Bone Sterile 6191-1-010 - [id number] Implanted:Qty: 1 on 08/24/2023 by Adrien Camejo MD at [facility] Right: Knee [employer] [id number] 08/10/2025 6191-1-01 0 / / [id number] [employer] Ascent Maxim 63mm 1 Piece Cruciate Fin Knee Tray Tibial Interlok [id number] - [id number] Implanted:Qty: 1 on 08/24/2023 by Adrien Camejo MD at [facility] Right: Knee [employer] 09/11/2032 [id number] / / [id number] [employer] Vanguard 60mm Cruciate Retaining Knee Right Component Femoral [id number] - [id number] Implanted:Qty: 1 on 08/24/2023 by Adrien Camejo MD at [facility] Right: Knee [employer] [id number] 07/26/2032 [id number] / / [id number] [employer] Bearing 63/[id number] Vanguard Arcom Knee Cruciate Retain Direct [id number] - [id number] Implanted:Qty: 1 on 08/24/2023 by Adrien Camejo MD at [facility] Right: Knee [employer] [id number] 04/01/2028 [id number] / / [id number] Procedures Procedure Name Priority Date/Time Associated Diagnosis Comments PROTIME-INR Routine 03/30/2024 TRANSTHORACIC ECHO (TTE) COMPLETE W DOPPLER/CF WO CONTRAST Routine 03/14/2024 11:57 AM YARN HAULER H/O mechanical aortic valve replacement PROTIME-INR Routine [...] 1.10 EXTERNAL LAB Blood us Historical Provider MD LAB BLOOD ORDERABLES Antonina hernandez Result EXTERNAL LAB * TRANSTHORACIC ECHO (TTE) COMPLETE W DOPPLER/CF WO CONTRAST (03/14/2024 11:57 AM YARN HAULER) Anatomical Region Laterality Modality Ultrasound 03/14/2024 11:4 2 AM YARN HAULER Narrative 03/14/2024 1:59 PM YARN HAULER [facility] Cardiology [address] [facility] [address], [place] [address] [address], [place] [address] P:[phone] P:[phone] Echocardiographic Report Patient Name: YESSY DONALDSON M : 1955 Study Date: 03/14/2024 11:42:37 [...] FINDINGS: Interpretation Site: Exam was interpreted at [facility]. Left Ventricle: Normal left ventricular size. [...] size. Electronically Signed By: Dat Chauhan MD, [facility] 2024-03-14 13:58:46 YARN HAULER Procedure Note Dat Chauhan MD - 03/14/2024 [facility] Medical Group Cardiology [address] [facility] [address] [address] [address] [facility] [address], [place] [address] P:[phone] P:[phone] Echocardiographic Report Patient Name: YESSY DONALDSON M : 1955 Study Date: 03/14/2024 11:42:37 [...] FINDINGS: Interpretation Site: Exam was interpreted at [facility]. Left Ventricle: Normal left ventricular size. [...] size. Electronically Signed By: Dat Chauhan MD, [facility] 2024-03-14 13:58:46 YARN HAULER Result [facility] Rachel Mott NP CV ECHO PROCEDURES Final Result * (ABNORMAL) Protime-INR (03/14/2024) INR 3.10(A) 0.90 - 1.10 EXTERNAL LAB Blood Result [facility] Historical Provider LAB BLOOD ORDERABLES Antonina l Result EXTERNAL LAB * (ABNORMAL) Protime-INR (03/07/2024) INR 3.50(A) 0.90 - 1.10 EXTERNAL LAB Blood Result [facility] Historical Provider LAB BLOOD ORDERABLES Antonina l Result EXTERNAL LAB * (ABNORMAL) Protime-INR (03/01/2024) INR 4.60(A) 0.90 - 1.10 EXTERNAL LAB Blood Result [facility] Provider MD LAB BLOOD ORDERABLES Antonina l Result Performing Organization Address City/[facility]/ZIP Co de Phone Number EXTERNAL LAB * (ABNORMAL) Protime-INR (02/25/2024) INR 3.60(A) 0.90 - 1.10 EXTERNAL LAB Blood Result [facility] Provider MD LAB BLOOD ORDERABLES Antonina l Result Performing Organization Address City/[facility]/ZIP Co de Phone Number EXTERNAL LAB * (ABNORMAL) Protime-INR (02/22/2024) INR 4.50(A) 0.90 - 1.10 EXTERNAL LAB Blood Result [facility] Provider MD LAB BLOOD ORDERABLES Antonina l Result Performing Organization Address City/[facility] Co de Phone Number EXTERNAL LAB * (ABNORMAL) Protime-INR (02/01/2024) INR 3.20(A) 0.90 - 1.10 EXTERNAL LAB Blood Result [facility] Provider MD LAB BLOOD ORDERABLES Antonina l Result Performing Organization Address City/[facility]/ZIP Co de Phone Number EXTERNAL LAB * (ABNORMAL) Protime-INR (01/11/2024) INR 2.60(A) 0.90 - 1.10 EXTERNAL LAB Blood Result [facility] Provider MD LAB BLOOD ORDERABLES Antonina l Result Performing Organization Address City/[facility]/ZIP Co de Phone Number EXTERNAL LAB * POCT lipid panel (01/08/2024 1:39 PM CDT) Cholesterol, POC 145 mg/dL HDL, POC 51 mg/dL Triglycerides, POC 85 mg/dL LDL Cholesterol POC 76 mg/dL Chol/HDL Ratio, POC 1.5 Non-HDL Cholesterol, POC 93 mg/dL Cholesterol Total, POC 145 mg/dL Capillary blood 01/08/2024 1 :39 PM CDT Result [facility] Rachel Mott NP POINT OF CARE TEST ORDERA BLES Final Result * Screening Mammogram Bilateral W Thai (02/24/2020) Anatomical Region Laterality Modality Breast Bilateral Mammography Impressions 02/24/2020 Recommend routine F/U in one year. BI-RADS Category 1: negative Helena DAVEY IMG MAMMO PROCEDURES Final Result * DEXA SCAN (02/21/2019) DEXA Scan Abnormal Comment:Moise-Spine (-0.8 ), LT Hip (-1.3), RT Hip (-1.1) Result [facility] Historical Provider HEALTH MAINTENANCE Final Result * DNA STOOL (12/06/2018) COLOGUARD Normal Result [facility] Historical Provider HEALTH MAINTENANCE Final Result * PAP SMEAR WITH HPV (11/17/2018) Pap smear Normal Narrative Helena Yu PA - 11/17/2018 Neg (atrophic) with negative HPV Result [facility] Historical Provider HEALTH MAINTENANCE Final Result from Last 3 Months or Most Recently Relevant to Health Maintenance Insurance [facility] Advance Directives For more information, please contact: [phone] * Full Code (Latest Code Status on File) Date Activated Date Inactivated Comments 08/24/2023 5:34 PM 08/25/2023 6:10 PM Care Teams Art Editor Relationship Specialty Start Date End Date Sanket Waldron DO [address] [place] [address] PCP - General 05/26/23 Adrien Camejo MD [address] [address] Consulting Physician Orthopedic Surgery 08/25/23
--- OUTSIDE RECORDS SUMMARY | 2024-04-01 07:35 | XMS_ITS | Encounter Summary ---
Author Organization [facility] Healthcare Address [address] [place] [address] Care Team Providers Care Vegetable Farming Supervisor Name Role Phone Sanket Waldron Primary Care Provide r Adrien Camejo MD Unavailable [phone] Encounter Details Date Type Department Care Team (Latest Contact Info) Description 02/01/2024 Anticoagulation Visit [facility] Cardiology [address] [place] [phone] Juany Madrid RN H/O mechanical aortic valve [...] on file Legal Sex Female 8:13 AM WINE CELLAR STOCK CLERK Gender Identity Female 06/01/2020 9:42 PM WINE CELLAR STOCK CLERK Sexual Orientation Straight 06/01/2020 9: 42 PM WINE CELLAR STOCK CLERK 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 Not on file Not on file documented as of this encounter Plan of Treatment Not on file documented as of this encounter Procedures Procedure Name Priority Date/Time Associated Diagnosis Comments PROTIME-INR Routine 02/01/2024 documented in this encounter Results * (ABNORMAL) Protime-INR (02/01/2024) INR 3.20(A) 0.90 - 1.10 EXTERNAL LAB Blood us Historical Provider LAB BLOOD ORDERABLES Antonina l Result EXTERNAL LAB documented in this encounter Visit Diagnoses Diagnosis H/O mechanical aortic valve replacement- Primary Chronic anticoagulation Encounter for long-term (current) 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s documented in this encounter Care Teams Vegetable Farming Supervisor Relationship Specialty Start Date End Date Sanket Waldron DO [address] [place] [address] PCP - General 05/26/23 Adrien Camejo MD [address] [facility] [address] [address] Consulting Physician Orthopedic Surgery 08/25/23 documented as of this encounter
--- OUTSIDE RECORDS SUMMARY | 2024-04-01 07:35 | XMS_ITS | Encounter Summary ---
Author Organization [facility] Healthcare Address [address] [place] [address] Care Team Providers Care Pipe Bowls Paint Trimmer Name Role Phone Sanket Waldron Primary Care Provide r Adrien Camejo MD Unavailable [phone] Encounter Details Date Type Department Care Team (Latest Contact Info) Description 09/14/2023 Anticoagulation Visit [facility] Cardiology [address] [place] [phone] Juany Madrid RN H/O mechanical aortic valve [...] on file Legal Sex Female 8:13 AM BORDER PATROL AGENT Gender Identity Female 06/01/2020 9:42 PM BORDER PATROL AGENT Sexual Orientation Straight 06/01/2020 9: 42 PM BORDER PATROL AGENT 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 Not on file Not on file documented as of this encounter Plan of Treatment Not on file documented as of this encounter Procedures Procedure Name Priority Date/Time Associated Diagnosis Comments PROTIME-INR Routine 09/14/2023 documented in this encounter Results * (ABNORMAL) Protime-INR (09/14/2023) INR 5.90(A) 0.90 - 1.10 EXTERNAL LAB Blood us Historical Provider LAB BLOOD ORDERABLES Antonina l Result EXTERNAL LAB documented in this encounter Visit Diagnoses Diagnosis H/O mechanical aortic valve replacement- Primary Chronic anticoagulation Encounter for long-term (current) 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s documented in this encounter Care Teams Pipe Bowls Paint Trimmer Relationship Specialty Start Date End Date Sanket Waldron DO [address] [place] [address] PCP - General 05/26/23 Adrien Camejo MD [address] [facility] [address] [address] Consulting Physician Orthopedic Surgery 08/25/23 documented as of this encounter
--- OUTSIDE RECORDS SUMMARY | 2024-04-01 07:35 | XMS_ITS | Encounter Summary ---
Author Organization [facility] Healthcare Address [address] [place] [address] Care Team Providers Care Supervisor Bit And Shank Department Name Role Phone Sanket Waldron Primary Care Provide r Adrien Camejo MD Unavailable [phone] Encounter Details Date Type Department Care Team (Latest Contact Info) Description 02/22/2024 Anticoagulation Visit [facility] Medical [facility] Cardiology [address] [place] [phone] Juany Madrid RN H/O mechanical aortic valve [...] on file Legal Sex Female 8:13 AM PHYSICAL THERAPY MANAGER Gender Identity Female 06/01/2020 9:42 PM PHYSICAL THERAPY MANAGER Sexual Orientation Straight 06/01/2020 9: 42 PM PHYSICAL THERAPY MANAGER 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 Not on file Not on file documented as of this encounter Plan of Treatment Not on file documented as of this encounter Procedures Procedure Name Priority Date/Time Associated Diagnosis Comments PROTIME-INR Routine 02/22/2024 documented in this encounter Results * (ABNORMAL) Protime-INR (02/22/2024) INR 4.50(A) 0.90 - 1.10 EXTERNAL LAB Blood us Historical Provider LAB BLOOD ORDERABLES Antonina l Result EXTERNAL LAB documented in this encounter Visit Diagnoses Diagnosis H/O mechanical aortic valve replacement- Primary Chronic anticoagulation Encounter for long-term (current) 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s documented in this encounter Care Teams Supervisor Bit And Shank Department Relationship Specialty Start Date End Date Sanket Waldron DO [address] [place] [address] PCP - General 05/26/23 Adrien Camejo MD [address] [facility] A[facility] [address] [address] Consulting Physician Orthopedic Surgery 08/25/23 documented as of this encounter
--- OUTSIDE RECORDS SUMMARY | 2024-04-01 07:35 | XMS_ITS | Encounter Summary ---
Author Organization [facility] Healthcare Address [address] [place] [address] Care Team Providers Care Counter Stacker Name Role Phone KonstantinyolandaandreyGeraldine shenchary Phillip THOMPSON Primary Care Provide r Adrien Camejo MD Unavailable [phone] Encounter Details Date Type Department Care Team (Late st Contact Info) Description 11/16/2023 Orders Only [facility] Health Information Management [address] [place] [address] Scanning, Provider Social History Tobacco Use Types [...] on file Legal Sex Female 8:13 AM AIR DIRECTOR Gender Identity Female 06/01/2020 9:42 PM AIR DIRECTOR Sexual Orientation Straight 06/01/2020 9: 42 PM AIR DIRECTOR 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 Not on file Not on file documented as of this encounter Plan of Treatment Not on file documented as of this encounter Procedures Procedure Name Priority Date/Time Associated Diagnosis Comments SCAN - LABS 11/16/2023 documented in this encounter Results * SCAN - LABS (11/16/2023) us Provider Scanning Final Result documented in this encounter Visit Diagnoses Not on filedocumented in this encounter Care Teams Counter Stacker Relationship Specialty Start Date End Date Sanket Waldron DO [address] [place] [id number] PCP - General 05/26/23 Adrien Camejo MD [address] [address] Consulting Physician Orthopedic Surgery 08/25/23 documented as of this encounter
--- OUTSIDE RECORDS SUMMARY | 2024-04-01 07:35 | XMS_ITS | Encounter Summary ---
Author Organization [facility] Healthcare Address [address] [place] [address] Care Team Providers Care Paint Crew Supervisor Name Role Phone KonstantinyolandaandreyGeraldine shenchary Phillip THOMPSON Primary Care Provide r Adrien Camejo MD Unavailable [phone] Encounter Details Date Type Department Care Team (Late st Contact Info) Description 09/23/2023 Orders Only [facility] Health Information Management [address] [place] [id number] Scanning, Provider Social History Tobacco Use Types [...] on file Legal Sex Female 8:13 AM DOOR LINER HELPER Gender Identity Female 06/01/2020 9:42 PM DOOR LINER HELPER Sexual Orientation Straight 06/01/2020 9: 42 PM DOOR LINER HELPER 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 Not on file Not on file documented as of this encounter Plan of Treatment Not on file documented as of this encounter Procedures Procedure Name Priority Date/Time Associated Diagnosis Comments SCAN - LABS 09/23/2023 documented in this encounter Results * SCAN - LABS (09/23/2023) us Provider Scanning Final Result documented in this encounter Visit Diagnoses Not on filedocumented in this encounter Care Teams Paint Crew Supervisor Relationship Specialty Start Date End Date Sanket Waldron DO [address] [place] [phone] PCP - General 05/26/23 Adrien Camejo MD [address] [facility] [address] [address] Consulting Physician Orthopedic Surgery 08/25/23 documented as of this encounter
--- OUTSIDE RECORDS SUMMARY | 2024-04-01 07:35 | XMS_ITS | Encounter Summary ---
Author Organization [facility] Healthcare Address [address] [place] [address] Care Team Providers Care Gasoline Pump Mechanic Name Role Phone Sanket Waldron Primary Care Provide r Adrien Camejo MD Unavailable [phone] Encounter Details Date Type Department Care Team (Latest Contact Info) Description 12/31/2023 Anticoagulation Visit [facility] Medical Group Cardiology [address] [place] [phone] Huma Trevizo RN H/O mechanical aortic valve replacement (Primary [...] on file Legal Sex Female 8:13 AM PROOFSHEET CORRECTOR Gender Identity Female 06/01/2020 9:42 PM PROOFSHEET CORRECTOR Sexual Orientation Straight 06/01/2020 9: 42 PM PROOFSHEET CORRECTOR 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 on file Not on file documented as of this encounter Plan of Treatment Not on file documented as of this encounter Procedures Procedure Name Priority Date/Time Associated Diagnosis Comments PROTIME-INR Routine 12/31/2023 documented in this encounter Results * (ABNORMAL) Protime-INR (12/31/2023) INR 2.30(A) 0.90 - 1.10 EXTERNAL LAB Blood us Historical Provider LAB BLOOD ORDERABLES Antonina l Result EXTERNAL LAB documented in this encounter Visit Diagnoses Diagnosis H/O mechanical aortic valve replacement- Primary Chronic anticoagulation Encounter for long-term (current) 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s documented in this encounter Care Teams Gasoline Pump Mechanic Relationship Specialty Start Date End Date Sanket Waldron DO [address] [place] [address] PCP - General 05/26/23 Adrien Camejo MD [address] [facility] [address] [place] [address] Consulting Physician Orthopedic Surgery 08/25/23 documented as of this encounter
--- OUTSIDE RECORDS SUMMARY | 2024-04-01 07:35 | XMS_ITS | Encounter Summary ---
Author Organization [facility] Healthcare Address [address] [place] [address] Care Team Providers Care Technical Sales Manager Name Role Phone Sanket Waldron Primary Care Provide r Adrien Camejo MD Unavailable [phone] Encounter Details Date Type Department Care Team (Latest Contact Info) Description 02/25/2024 Anticoagulation Visit [facility] Cardiology [address] [place] [phone] Juany Madrid RN H/O mechanical aortic valve [...] on file Legal Sex Female 8:13 AM MEDIA TRAFFIC MANAGER Gender Identity Female 06/01/2020 9:42 PM MEDIA TRAFFIC MANAGER Sexual Orientation Straight 06/01/2020 9: 42 PM MEDIA TRAFFIC MANAGER 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 Not on file Not on file documented as of this encounter Plan of Treatment Not on file documented as of this encounter Procedures Procedure Name Priority Date/Time Associated Diagnosis Comments PROTIME-INR Routine 02/25/2024 documented in this encounter Results * (ABNORMAL) Protime-INR (02/25/2024) INR 3.60(A) 0.90 - 1.10 EXTERNAL LAB Blood us Historical Provider LAB BLOOD ORDERABLES Antonina l Result EXTERNAL LAB documented in this encounter Visit Diagnoses Diagnosis H/O mechanical aortic valve replacement- Primary Chronic anticoagulation Encounter for long-term (current) 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s documented in this encounter Care Teams Technical Sales Manager Relationship Specialty Start Date End Date Sanket Waldron DO [address] [place] [address] PCP - General 05/26/23 Adrien Camejo MD [address] [facility] TAYO ABRAMS [address] [address] Consulting Physician Orthopedic Surgery 08/25/23 documented as of this encounter
--- OUTSIDE RECORDS SUMMARY | 2024-04-01 07:35 | XMS_ITS | Encounter Summary ---
Author Organization [facility] Address [address] [place] [address] Care Team Providers Care Pearl Maker Name Role Phone Sanket Waldron DO Primary Care Provide r Adrien Camejo MD Unavailable [phone] Reason for Referral * Cardiology (Routine) - Closed Specialty Diagnoses / Procedures Referred By Chucky acevedo Referred To Contact Diagnoses H/O mechanical aortic valve replacement Procedures Transthoracic Echo (TTE) Complete W Doppler/CF Su Mott NP [address] [address] Phone: tel: fax: [facility] Referral ID Status Reason Start Date Expiration Date Visits Re quested Visits Authorized [id number] Closed 01/08/2024 02/06/2025 1 1 Reason for Visit * Reason Comments Annual Exam * Consultation (Routine) - Authorized Specialty Diagnoses / Procedures Referred By Chucky acevedo Referred To Contact Cardiology Diagnoses Presence of prosthetic heart valve Sanket Waldron DO [address] [place] [address] Phone: tel: fax: [facility] Cardiology [address] [address] Phone: tel: fax: Referral ID Status Reason Start Date Expiration Date Visits Requested Visits Authorized [id number] Authorized Specialty Services Required 12/10/2023 12/09/2024 12 12 Encounter Details Date Type Department Care Team (Late st Contact Info) Description 01/08/2024 1:30 PM CDT Office Visit 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 [facility] Cardiology [address] [place] [address] Date of Visit: 01/08/2024 Patient ID: Yessy Nixon 1955 Chief Complaint Patient presents with Annual Exam Yessy Nixon is a 68 y.o. female who is a former patient of Dr. Gaines with a history a bicuspid aortic valve and a mechanical aortic valve replacement returning to the office for annual follow-up. History of Present Illness: Yessy Nixon is a 68 y.o. female with a history of bicuspid aortic valve, who underwent AVR w/ a 19 mm Altenburg mechanical valve by Dr. Guthrie in 2008. Has not had involvement of her ascending aorta. She is chronically anticoagulated. She is aware of need for SBE antibiotic prophylaxis prior to dental work and nonsterile procedures. History of hyperlipidemia, sciatica, spinal stenosis. Last routine office visit with Dr. Gaines December 2022 10/31/2023 office visit with MANAGER TRADE MARKETING: She is here for routine follow-up. She has no cardiac concerns. Denies any chest pain, palpitations or new shortness of breath. She had a right total knee replacementearlier this year and now her left knee is bothering her and she has worsening fibromyalgia symptoms recently. Social: She worked w/ disabled children but retired in 2022. She has an adult son who is also severely disabled, and lives with her. Medical History: Past Medical History: Diagnosis Date Arthritis Asthma Asthma Cataract diagnosed 2019 Depression supposedly; but feel it's a misdiagnosis. Eczema eczema GERD (gastroesophageal reflux disease) at least 10 years Heart disease HX OTHER MEDICAL diverticulosis Mitral valve prolapse Myalgia Neuromuscular disorder (HCC) Have had sciatica for 17 months. Past Surgical History: Procedure Laterality Date BUNIONECTOMY CARDIAC VALVE REPLACEMENT November 06, 2008 CARPAL TUNNEL RELEASE Surgery for Carpal Tunnel CERVICAL CERCLAGE FOOT NEUROMA SURGERY JOINT REPLACEMENT ? MITRAL VALVE REPLACEMENT 10/2008 TOE SURGERY Social History Tobacco Use Smoking status: Never Smokeless tobacco: Never Substance and Sexual Activity Drug use: Never Sexual activity: Not Currently Partners: Male control/protection: Post-menopausal, Vasectomy Alcohol Use: Not At Risk (08/24/2023) AUDIT-C Frequency of Alcohol Consumption: Monthly or less Average Number of Drinks: 1 or 2 Frequency of Binge Drinking: Never Family History Problem Relation Age of Onset Other Father [place] age 50, CABG; Heart attack Father Arthritis Father Hearing loss Father Other (brain tumor) Sister Other Mother H/O CVA, 2012; Stroke Mother Vision loss Mother Clotting disorder Mother Other Sister MVP; Cancer Sister Arthritis Sister Diabetes Sister Arthritis Sister defects Son Developmental delay Son Hyperlipidemia Son Vision loss Son Review of Systems Constitutional: Negative for malaise/fatigue, weight gain and weight loss. Cardiovascular: Negative for chest pain, dyspnea on exertion, leg swelling, near-syncope, orthopnea, palpitations, paroxysmal nocturnal dyspnea and syncope. Respiratory: Negative for cough, shortness of breath and sleep disturbances due to breathing. Hematologic/Lymphatic: Negative for bleeding problem. Does not bruise/bleed easily. Musculoskeletal: Positive for joint pain and myalgias. Vital Signs: BP 102/62 (BP Location: Left arm, Patient Position: Sitting) Pulse 85 Ht 152.4 cm (5') Wt 59 kg (130 lb) SpO2 98% BMI 25.39 kg/m?? Physical Exam Constitutional: General: She is not in acute distress. Appearance: She is well-developed. HENT: Head: Normocephalic and atraumatic. Eyes: General: No scleral icterus. Conjunctiva/sclera: Conjunctivae normal. Neck: Vascular: No JVD. Trachea: No tracheal deviation. Cardiovascular: Rate and Rhythm: Normal rate and regular rhythm. Heart sounds: Murmur heard. Early systolic murmur is present with a grade of 1/6 at the upper left sternal border. Comments: [place] mechanical click, most pronounced at URSB. Pulmonary: Effort: Pulmonary effort is normal. No respiratory distress. Breath sounds: Normal breath sounds. Musculoskeletal: Comments: Trace bilateral pedal edema Skin: General: Skin is warm and dry. Neurological: Mental Status: She is alert and oriented to person, place, and time. Psychiatric: Mood and Affect: Mood normal. Behavior: Behavior normal. Allergies Allergen Reactions Molnupiravir Rash Pregabalin Rash Current Outpatient Medications: albuterol HFA (ProAir HFA) 90 mcg/actuation inhaler, Inhale 2 puffs every 4 (four) hours as needed for wheezing, Disp: 1 Inhaler, Rfl: 1 artificial tears (ISOPTO TEARS) 0.5 % ophthalmic solution, Administer 1 drop into both eyes as needed, Disp: , Rfl: aspirin 81 mg enteric coated tablet, Take 1 tablet (81 mg total) by mouth every morning, Disp: , Rfl: atorvastatin (LIPITOR) 20 mg tablet, Take 1 tablet (20 mg total) by mouth every morning, Disp: , Rfl: calcium carbonate-vitamin D3 (CALTRATE 600 + D) 1500 mg (600 mg elemental) -400 units per tablet, Take 1 tablet by mouth every morning, Disp: , Rfl: gabapentin (NEURONTIN) 300 mg capsule, Take 2 capsules (600 mg total) by mouth 3 (three) times a day as needed, Disp: , Rfl: LATANOPROST OPHT, Administer 1 drop into affected eye(s) nightly, Disp: , Rfl: magnesium oxide 400 mg magnesium capsule, Take 1 tablet by mouth nightly, Disp: , Rfl: sodium chloride (OCEAN) 0.65 % nasal spray, Administer 1 spray into each nostril as needed, Disp: ,Rfl: warfarin (COUMADIN) 2 mg tablet, Take 2 tablets (4 mg total) by mouth daily Take 4mg 5 days a week and 6mg 2 days a week or as directed by physician., Disp: 64 tablet, Rfl: 2 cyanocobalamin (Vitamin B-12) 1,000 mcg tablet, Take 1 tablet (1,000 mcg total) by mouth every morning, Disp: , Rfl: docusate sodium (COLACE) 100 mg capsule, Take 1 capsule (100 mg total) by mouth 2 (two) times a day(Patient not taking: Reported on 01/08/2024), Disp: , Rfl: HYDROcodone-acetaminophen (NORCO) 5-325 mg per tablet, Take 1-2 tablets by mouth every 6 (six) hours as needed for pain (Moderate Pain) (Patient not taking: Reported on 01/08/2024), Disp: 30 tablet, Rfl: 0 menthol 4 % gel, Apply 1 Application topically as needed (Patient not taking: Reported on 01/08/2024), Disp: , Rfl: oxyCODONE-acetaminophen (PERCOCET) 5-325 mg per tablet, Take 1-2 tablets by mouth every 6 (six) hours as needed for pain (Severe Pain) (Patient not taking: Reported on 01/08/2024), Disp: 30 tablet, Rfl: 0 Lab Results Component Value Date POTASSIUM 4.4 08/25/2023 BUNSER 15 08/25/2023 CREATININE 0.47 (L) 08/25/2023 CHOL 227 (H) 08/31/2012 TRIG 133 08/31/2012 LDL 144 (H) 08/31/2012 HDL 56 08/31/2012 Lab Results Component Value Date WBC 7.0 08/25/2023 HGB 10.4 (L) 08/25/2023 HCT 32.9 (L) 08/25/2023 MCV 98.2 (H) 08/25/2023 Recent Results (from the past 4 hour(s)) POCT lipid panel Collection Time: 01/08/24 1:39 PM Result Value Ref Range Cholesterol, POC 145 mg/dL HDL, POC 51 mg/dL Triglycerides, POC 85 mg/dL LDL, Direct, POC 76 mg/dL Chol/HDL Ratio, POC 1.5 Non-HDL Cholesterol, POC 93 mg/dL Cholesterol Total, POC 145 mg/dL Echos: 2008: EF 71%, LVH, diast. dysfxn, LYNSEY 0.5-0.6 cm2, mild AI peak grad 63, mean grad 37 mmHg --> Aortic valve replacement, 19 mm Altenburg valve 2008: EF 63%, LYNSEY 1.0-1.1 cm2, mean grad 8 mmHg (post-op) 2014: EF 63%, LYNSEY 1.2 cm2, mean grad 13 mmHg. She also has mild asthma. 11/2017 EF 60%, diast dysfxn, EF 60%, LYNSEY 1.5 cm2, mean grad 7 mmHg. 12/2018 EF 60-65%, diast dysfxn, LYNSEY 1.1 cm2, mean grad 6 mmHg, mild AI. 12/2019 EF 55-60%, diast dysfxn, LYNSEY 1.1 cm2, mean grad 10 mmHg, mild AI. 02/2022 Echo: EF 71%, LVH, diast dysfxn, LYNSEY 1.3 cm2, mean grad 10 mmHg, mildly dilated asc aorta 03/04/2023 Echo: EF 60%, strain -18%, diast dysfxn, Vmax 1.9 m/sec, mean grad 7 mmHg. Assessment: Diagnoses and all orders for this visit: H/O mechanical aortic valve replacement (Primary) - Transthoracic Echo (TTE) Complete W Doppler/CF; Future Presence of prosthetic heart valve - Ambulatory referral to Cardiology Chronic anticoagulation Dyslipidemia - POCT lipid panel Plan/Recommendations: She has a history of bicuspid aortic valve s/p mechanical aortic valve replacement in 2008. Cardiacstatus appears stable. She was reminded of SBE prophylaxis. I will arrange for her to return to theoffice for repeat annual echocardiogram to reassess the function of the prosthetic aortic valve in a couple months. She should continue ongoing follow-up in our anticoagulation clinic for warfarin. Point of care lipid testing today looks favorable. Continue atorvastatin. She is requesting to transition ongoing care from Dr. Gaines to Dr. Romero. She would like to havea sooner office visit to get established with her. We will schedule an appointment with Dr. Romero next 4-6 months. Call us sooner with questions or concerns. 01/08/2024 MELVINA Hough- Nurse Practitioner with [facility] This note is dictated and transcribed using [employer] Direct Software. Store Operations Specialist variancesmay occur. Despite proofreading, typographical errors may occur. documented in this encounter Plan of Treatment Not on file documented as of this encounter Procedures Procedure Name Priority Date/Time Associated Diagnosis Comments POCT LIPID PANEL Routine 01/08/2024 1:39 PM CDT Dyslipidemia documented in this encounter Results * TRANSTHORACIC ECHO (TTE) COMPLETE W DOPPLER/CF WO CONTRAST (03/14/2024 11:57 AM CORRECTIONAL SUBSTANCE ABUSE COUNSELOR) Anatomical Region Laterality Modality Ultrasound 03/14/2024 11:4 2 AM CORRECTIONAL SUBSTANCE ABUSE COUNSELOR Narrative 03/14/2024 1:59 PM CORRECTIONAL SUBSTANCE ABUSE COUNSELOR [facility] Cardiology [address], [place] [address] [address], [place] [address] P:[phone] P:[phone] Echocardiographic Report Patient Name: YESSY NIXON M : 1955 Study Date: 03/14/2024 11:42:37 AM Gender: F Tech: Ref Provider: SU MOTT Height(Cm): 152 BSA: 1.58 Weight(Kg): 59 ?Heart Rate: 74 BP: 121 / 71 ?Quality: Good Order Provider: SU MOTT PROCEDURES: Echocardiographic Report: Transthoracic echocardiogram with [...] FINDINGS: Interpretation Site: Exam was interpreted at [facility]. Left Ventricle: Normal left ventricular size. Mild [...] size. Electronically Signed By: Dat Chauhan MD, [facility] 2024-03-14 13:58:46 CORRECTIONAL SUBSTANCE ABUSE COUNSELOR Procedure Note Dat Chauhan MD - 03/14/2024 [facility] Cardiology [address] [facility] [address] [id number] [address] [facility] [address] [address] P:[phone] P:[phone] Echocardiographic Report Patient Name: YESSY NIXON M : 1955 Study Date: 03/14/2024 11:42:37 AM Gender: F Tech: JM Ref Provider: SU MOTT Height(Cm): 152 BSA: 1.58 Weight(Kg): 59 Heart Rate: 74 BP: 121 / 71 Quality: Good Order Provider: SU MOTT PROCEDURES: Echocardiographic Report: Transthoracic echocardiogram with [...] FINDINGS: Interpretation Site: Exam was interpreted at [facility]. Left Ventricle: Normal left ventricular size. Mild [...] size. Electronically Signed By: Dat Chauhan MD, [facility] 2024-03-14 13:58:46 CORRECTIONAL SUBSTANCE ABUSE COUNSELOR Su Mott NP CV ECHO PROCEDURES Final Result * POCT lipid panel (01/08/2024 1:39 PM CDT) Cholesterol, POC 145 mg/dL HDL, POC 51 mg/dL Triglycerides, POC 85 mg/dL LDL Cholesterol POC 76 mg/dL Chol/HDL Ratio, POC 1.5 Non-HDL Cholesterol, POC 93 mg/dL Cholesterol Total, POC 145 mg/dL Capillary blood 01/08/2024 1 :39 PM CDT Su Mott NP POINT OF CARE TEST ORDERA BLES Final Result documented in this encounter Visit Diagnoses Diagnosis H/O mechanical aortic valve replacement- Primary Presence of prosthetic heart valve Chronic anticoagulation Encounter for long-term (current) 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s Dyslipidemia Other and unspecified hyperlipidemia H/O mechanical aortic valve replacement documented in this encounter Orders Outpatient Referral Count Last Ordered Date Fir st Ordered Date AMB REFERRAL TO CARDIOLOGY 1 01/08/2024 documented in this encounter Care Teams Pearl Maker Relationship Specialty Start Date End Date Sanket Waldron DO [address] [place] [address] PCP - General 05/26/23 Adrien Camejo MD [address] [facility] TAYO ABRAMS [facility] [address] [place] [address] Consulting Physician Orthopedic Surgery 08/25/23 documented as of this encounter
--- OUTSIDE RECORDS SUMMARY | 2024-04-01 07:35 | XMS_ITS | Encounter Summary ---
Author Organization [facility] Healthcare Address [address] [place] [address] Care Team Providers Care Coat Fitter Name Role Phone Sanket Waldron Primary Care Provide r Adrien Camejo MD Unavailable [phone] Encounter Details Date Type Department Care Team (Latest Contact Info) Description 03/01/2024 Anticoagulation Visit [facility] Cardiology [address] [place] [phone] Juany Madrid RN H/O mechanical aortic valve [...] on file Legal Sex Female 8:13 AM MEDICAL BILLING SUPERVISOR Gender Identity Female 06/01/2020 9:42 PM MEDICAL BILLING SUPERVISOR Sexual Orientation Straight 06/01/2020 9: 42 PM MEDICAL BILLING SUPERVISOR 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 Not on file Not on file documented as of this encounter Plan of Treatment Not on file documented as of this encounter Procedures Procedure Name Priority Date/Time Associated Diagnosis Comments PROTIME-INR Routine 03/01/2024 documented in this encounter Results * (ABNORMAL) Protime-INR (03/01/2024) INR 4.60(A) 0.90 - 1.10 EXTERNAL LAB Blood us Historical Provider LAB BLOOD ORDERABLES Antonina l Result EXTERNAL LAB documented in this encounter Visit Diagnoses Diagnosis H/O mechanical aortic valve replacement- Primary Chronic anticoagulation Encounter for long-term (current) 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s documented in this encounter Care Teams Coat Fitter Relationship Specialty Start Date End Date Sanket Waldron DO [address] [place] [address] PCP - General 05/26/23 Adrien Camejo MD [address] [facility] TAYO ABRAMS [address] [address] Consulting Physician Orthopedic Surgery 08/25/23 documented as of this encounter
--- OUTSIDE RECORDS SUMMARY | 2024-04-01 07:35 | XMS_ITS | Encounter Summary ---
Author Organization [facility] Healthcare Address [address] [place] [address] Care Team Providers Care Model Photographers' Name Role Phone KonstantinSanket dolan DO Primary Care Provide r Adrien Camejo MD Unavailable [phone] Reason for Visit * Reason Onset Date Comments Med Refill 12/31/2023 Encounter Details Date Type Department Care Team (Late st Contact Info) Description 12/31/2023 Telephone [facility] Cardiology [address] [facility] 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 64 tablet 2 01/01/2024 4 warfarin (COUMADIN) 2 mg tablet Take 2 tablets (4 mg total) by mouth daily Take 4mg 5 days a week and 6mg 2 days a week or as directed by physician. 64 tablet 2 12/31/2023 4 documented in this encounter Miscellaneous Notes * Addendum Note - Su Mott NP - 01/01/2024 4:11 PM CDTAddended by: SU MOTT on: 01/01/2024 04:11 PM Modules accepted: Orders * Telephone Encounter - Marley Neves - 12/31/2023 1:20 PM CDT Pt states we can disregard warfarin refill. States she got it from [facility] already. Contact: * Telephone Encounter - Huma Trevizo RN - 12/31/2023 1:01 PM CDT Pt requesting refill on warfarin as she will be out tomorrow. Sending Rx to pharm. CT can you approve refill please-previous ELU pt. Thank you! documented in this encounter Plan of Treatment Not on file documented as of this encounter Visit Diagnoses Not on filedocumented in this encounter Discontinued Medications Medication Sig Discontinue Reason Start Date End Da te warfarin (COUMADIN) 2 mg tablet Take 2 tablets by mouth once daily Reorder 12/29/2023 12/31/2023 warfarin (COUMADIN) 2 mg tablet Take 2 tablets (4 mg total) by mouth daily Take 4mg 5 days a week and 6mg 2 days a week or as directed by physician. Reorder 12/31/2023 01/01/2024 documented as of this encounter Care Teams Model Photographers' Relationship Specialty Start Date End Date Sanket Waldron DO [address] [place] [address] PCP - General 05/26/23 Adrien Camejo MD [address] [address] Consulting Physician Orthopedic Surgery 08/25/23 documented as of this encounter
--- OUTSIDE RECORDS SUMMARY | 2024-04-01 07:35 | XMS_ITS | Encounter Summary ---
Author Organization [facility] Healthcare Address [address] [place] [address] Care Team Providers Care Director Of User Experience Name Role Phone Sanket Waldron Primary Care Provide r Adrien Camejo MD Unavailable [phone] Encounter Details Date Type Department Care Team (Latest Contact Info) Description 09/24/2023 Anticoagulation Visit [facility] Cardiology [address] [place] [phone] Penny Wilks RN H/O mechanical aortic valve replacement (Primary [...] on file Legal Sex Female 8:13 AM ANALYTICAL DATA SCIENTIST Gender Identity Female 06/01/2020 9:42 PM ANALYTICAL DATA SCIENTIST Sexual Orientation Straight 06/01/2020 9: 42 PM ANALYTICAL DATA SCIENTIST 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 Not on file Not on file documented as of this encounter Plan of Treatment Not on file documented as of this encounter Procedures Procedure Name Priority Date/Time Associated Diagnosis Comments PROTIME-INR Routine 09/23/2023 documented in this encounter Results * (ABNORMAL) Protime-INR (09/23/2023) INR 3.60(A) 0.90 - 1.10 [facility] Blood us Historical Provider LAB BLOOD ORDERABLES Antonina l Result [facility] documented in this encounter Visit Diagnoses Diagnosis H/O mechanical aortic valve replacement- Primary Chronic anticoagulation Encounter for long-term (current) 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s documented in this encounter Care Teams Director Of User Experience Relationship Specialty Start Date End Date Sanket Waldron DO [address] [place] [address] PCP - General 05/26/23 Adrien Camejo MD [address] [facility] TAYO ABRAMS [facility] [address] [place] [address] Consulting Physician Orthopedic Surgery 08/25/23 documented as of this encounter
--- OUTSIDE RECORDS SUMMARY | 2024-04-01 07:35 | XMS_ITS | Encounter Summary ---
Author Organization [facility] Healthcare Address [address] [place] [address] Care Team Providers Care Sheet Tester Name Role Phone KonstantinSanket dolan DO Primary Care Provide r Adrien Camejo MD Unavailable [phone] Encounter Details Date Type Department Care Team (Late st Contact Info) Description 11/12/[address] 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 I'm planning on having it done @ [facility], so will need an order for them and also [facility]. Thanks. Emani Donaldson documented in this encounter Plan of Treatment Scheduled Orders Name Type Priority Associated Diagnoses Orde r Schedule Protime-INR Lab Routine H/O mechanical aortic valve replacement Chronic anticoagulation 52 Occurrences starting 11/12/2023 until 11/11/2024 Protime-INR Lab Routine H/O mechanical aortic valve replacement Chronic anticoagulation 52 Occurrences starting 11/12/2023 until 11/11/2024 documented as of this encounter Visit Diagnoses Diagnosis H/O mechanical aortic valve replacement- Primary Chronic anticoagulation Encounter for long-term (current) 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s documented in this encounter Care Teams Sheet Tester Relationship Specialty Start Date End Date Sanket Waldron DO [address] [place] [id number] PCP - General 05/26/23 Adrien Camejo MD [address] [address] Consulting Physician Orthopedic Surgery 08/25/23 documented as of this encounter
--- OUTSIDE RECORDS SUMMARY | 2024-04-01 07:35 | XMS_ITS | Encounter Summary ---
Author Organization [facility] Healthcare Address [address] [place] [address] Care Team Providers Care First Sampler Name Role Phone Sanket Waldron Primary Care Provide r Adrien Camejo MD Unavailable [phone] Encounter Details Date Type Department Care Team (Latest Contact Info) Description 03/07/2024 Anticoagulation Visit [facility] Medical Group Cardiology [address] [place] [id number] Giuseppe Hernandez RN H/O mechanical aortic valve [...] on file Legal Sex Female 8:13 AM INK BLENDER Gender Identity Female 06/01/2020 9:42 PM INK BLENDER Sexual Orientation Straight 06/01/2020 9: 42 PM INK BLENDER Occupation Industry Job Start Date Job End Date [employer] Not on file Not on file Not on file documented as of this encounter Plan of Treatment Not on file documented as of this encounter Procedures Procedure Name Priority Date/Time Associated Diagnosis Comments PROTIME-INR Routine 03/07/2024 documented in this encounter Results * (ABNORMAL) Protime-INR (03/07/2024) INR 3.50(A) 0.90 - 1.10 EXTERNAL LAB Blood us Historical Provider LAB BLOOD ORDERABLES Antonina l Result EXTERNAL LAB documented in this encounter Visit Diagnoses Diagnosis H/O mechanical aortic valve replacement- Primary Chronic anticoagulation Encounter for long-term (current) 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s documented in this encounter Care Teams First Sampler Relationship Specialty Start Date End Date Sanket Waldron DO [address] [place] [id number] PCP - General 05/26/23 Adrien Camejo MD [address] [facility] [address] [facility] [address] [place] [address] Consulting Physician Orthopedic Surgery 08/25/23 documented as of this encounter
--- OUTSIDE RECORDS SUMMARY | 2024-04-01 07:35 | XMS_ITS | Encounter Summary ---
Author Organization [facility] Healthcare Address [address] [place] [address] Care Team Providers Care Flat Sorter Processor Name Role Phone KonstantinSanket dolan DO Primary Care Provide r Reason for Visit * Auth/Cert (Routine) Specialty Diagnoses / Procedures Referred By Contac t Referred To Contact Diagnoses Primary osteoarthritis of right knee Primary osteoarthritis of right knee [M17.11] Procedures HI ARTHRP KNE CONDYLE&PLATU MEDIAL&LAT COMPARTMENTS HI ARTHROPLASTY PATELLA W/O PROSTHESIS Right Total Knee Arthroplasty Referral ID Status Reason Start Date Expiration Date Visits Re quested Visits Authorized [id number] 1 1 Encounter Details Date Type Department Care Team (Late st Contact Info) Description 08/24/2023 11:09 AM CDT Anesthesia Event [facility] Operating Room [address] [place] [address] Parish Hoyos MD [address] [facility] [address] Yasmany Crowe CRNA [address] [place] [address] Anesthesia Record Procedure Summary Procedure Name Responsible Anesthesiologist Anesthesia Start Time Anesthesia Stop Time Right Total Knee Arthroplasty (Right: Knee) Parish Hoyos MD 08/24/23 1109 08/24/23 1347 Events Date Time Event Comment 08/24/2023 0930 0938 Time out - Regional 0940 An Block Induction The patie nt was reevaluated immediately before moderate or deep sedation and before anesthesia induction. 0942 Block Placed 1108 In Room 1109 An Start 1109 An Start Data 1119 Spinal Placed 1123 Anesthesia Ready 1144 Proc Start 1145 Incision Start 1331 Proc Fin 1336 an stop data 1336 Out of Room 1347 Handoff to RN I completed my handoff to the receiving nurse during which we: 1. Patient identified 2. Responsible provider identified 3. Pertinent medical history reviewed 4. Procedure type and surgical course discussed 5. Intraoperative anesthetic management and any significant issues discussed 6. Expectations and concerns for postop period discussed 7. Questions solicited from receiving nurse 8. Patient disposition at the time of handoff: No value filed. 1347 An Stop Meds Name Total bupivacaine 0.75 %-dextrose 8.25 % PF 1 mL fentaNYL PF 50 mcg/mL 75 mcg fentaNYL PF 50 mcg/mL 25 mcg midazolam 2 mg tranexamic acid 1,000 mg propofol 566.83 mg ondansetron 4 mg phenylephrine 100 mcg/mL 2.53 mg ceFAZolin (ANCEF) 2,000 mg/20 mL in ster ile water (premix) 2,000 mg 2,000 mg vancomycin 1,000 mg/200 mL in dextrose 5 % (premix) 1,000 mg 0 mg EPINEPHrine 1:200,000-BUPivacaine 0.5 % PF 30 mL ketorolac 30 mg Lactated Ringer's (LR) infusion 0 mL * Agents Name O2 N2O Air Sevoflurane Inspired Sevoflurane * Blood No blood administrations on file. Lines, Drains, and Airways Type Details Placement Removal Peripheral IV Placement Date: 08/24/23; Placement Time: 0840; Catheter Size: 20 G; Orientation: Left, Posterior; Location: Hand; Site Prep: Chlorhexidine; Inserted by: BHAVANA Finn; Insertion Attempts: 1; Removal Date: 08/25/23; Removal Time: 0802; Removal Reason: Infiltrated 08/24/23 0840 by Oralia Pete RN 08/25/23 0802 by Kalpana Andre RN RETIRED Surgical Site 08/24/23; 1150; Ri ght; Knee; 03/15/24 (Retired LDA, Removed/Completed by Burt with LDA Utility); 1213 (Retired LDA, Removed/Completed by Burt with LDA Utility) 08/24/23 1150 by Steve Ramos RN 03/15/24 1213 by Discharge Provider, Automatic documented in this encounter Social History Tobacco Use Types Packs/Day Years [...] on file Legal 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 Gender Identity Female 06/01/2020 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 Sexual Orientation Straight 06/01/2020 9: 42 PM QUILLER OPERATOR 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 on file Not on file Not on file documented as of this encounter OR Notes * Anesthesia Postprocedure Evaluation - Parish Hoyos MD - 08/24/2023 5:02 PM CDT Patient: Yessy Donaldson Procedure Summary Date: 08/24/23 [place] / [place] [facility] Anesthesia Start: 1109 Anesthesia Stop: 1347 Procedure: Right Total Knee Arthroplasty (Right: Knee) Diagnosis: Primary osteoarthritis of right knee (Primary osteoarthritis of right knee [M17.11]) Surgeons: Adrien Camejo MD Responsible Provider: Parish Hoyos MD Anesthesia Type: spinal, PNB - single shot, regional for postop pain per surgeon request ASA Status: 3 Anesthesia Type: spinal, PNB - single shot, regional for postop pain per surgeon request Last vitals BP 119/58 Pulse 61 Temp (!) 38.2 ??C (100.7 ??F) (Temporal) Resp 8 SpO2 100% Anesthesia Post Evaluation Patient location during evaluation: PACU Patient participation: complete - patient participated Level of consciousness: follows simple commands and fully awake Pain score: 3 Pain management: adequate Airway patency: adequate Cardiovascular status: acceptable and hemodynamically stable Respiratory status: acceptable and nasal cannula Hydration status: acceptable Pt is: normothermic Nausea/Vomiting status: none No notable events documented. * Anesthesia Procedure Notes - Yasmany Crowe CRNA - 08/24/2023 11:46 AM CDTAssociated Order(s): Spinal Block Spinal Block Patient location: OR End time: 08/24/2023 11:19 AM Reason for block: primary anesthetic Staff: Placed by: SOFTWARE TEST ENGINEER:Yasmany Crowe CRNA Procedure prep: Preprocedure checklist: patient identified, procedure contraindications assessed, procedure consent, IV checked, risks, benefits and alternatives discussed, monitors and equipment checked and timeoutperformed Patient position: sitting Procedure performed while patient: sedate with meaningful contact Monitoring: oximetry and blood pressure Supplemental O2: nasal cannula Prep solution: iodine povacrylex PPE: provider hat/mask, sterile gloves and sterile drape Skin infiltrated with lidocaine 1%: yes Spinal: Approach: midline Introducer used: yes Location: L4-5 Spinal injection: CSF demonstrated, no aspiration of heme and no paresthesias noted Number of attempts: 1 Spinal Needle: Needle type: pencil-tip Needle gauge: 25 G Needle length: 5 cm Assessment: Sensory deficit - left: T8 Sensory deficit - right: T8 Events: patient tolerated procedure well with no complications * Anesthesia Procedure Notes - Parish Hoyos MD - 08/24/2023 9:47 AM CDTAssociated Order(s): Peripheral Block Peripheral Block Patient location during procedure: pre-op holding End time: 08/24/2023 9:45 AM Reason for block: post-op pain management per surgeon request Ultrasound image in chart or stored: yes Block type: single shot Laterality: right Block type: saphenous nerve block - subsartorial approach Staff: Placed by: Anesthesiologist: Parish Hoyos MD Procedure assisted by: Huma Brown RN Procedure prep: Preprocedure checklist: patient identified, procedure contraindications assessed, site marked, procedure consent, surgical consent, IV checked, risks, benefits and alternatives discussed, monitors and equipment checked and timeout performed Patient position: supine Procedure performed while patient: sedate with meaningful contact Monitoring: ECG, oximetry and blood pressure Supplemental O2: nasal cannula Prep solution: chlorhexidine/alcohol PPE: provider hat/mask and sterile probe cover and gel Peripheral nerve block: Technique: ultrasound guided Technique: (ultrasound used for needle guidance and for active visualization of local anesthetic placement) Needle type: echogenic Needle gauge: 20 G Needle length: 100 mm Injection assessment: injection made incrementally with constant monitoring, local visualized surrounding nerve on ultrasound, negative aspiration for heme, no paresthesias noted, normal resistance to injection and see flowsheet for medication details (sedation meds documented in anesthetic record) Assessment: Block success: full evaluation pending Events: patient tolerated procedure well with no complications * Anesthesia Preprocedure Evaluation - Parish Hoyos MD - 08/06/2023 10:47 AM CDT Images from the original note were not included. Anesthesia Evaluation Yessy Joaquin is a 67 y.o. female with severe DJD of right knee. Onset of symptoms beganseveral months ago. She has undergone conservative treatment including oral pain medications and cortisone injections with limited relief. She has limited mobility and has difficulty with stairs, rising from a seated position, and with prolonged walking/standing. She c/o edema, stiffness, weakness,unstable gait, and pain. She states that her pain is increased with activity. She now presents for a Right Total Knee Arthroplasty. Right Total Knee Arthroplasty (Right: Knee) Pre-Op Diagnosis Codes: * Primary osteoarthritis of right knee [M17.11] NPO: after MN HISTORY Past Medical History Information obtained from: patient and chart. Neurological + Psychiatric history - anxiety and depression Cardiovascular + Hyperlipidemia + Prosthetic/Repaired heart valve - AV - mechanical Pertinent negatives: DVT/PE Respiratory + Asthma Dyspnea frequency: never. Rescue inhaler use: never. Hospitalizations/ER in the last year:0. Most recent exacerbation: 2021. Hepatic / Heme Hepatic/Heme system: negative Gastrointestinal + GERD - PRN medication use only. Asymptomatic. Renal / Renal/ system: negative Musculoskeletal/Pain + Chronic pain - fibromyalgia. + Osteoarthritis Endocrine / Other + Eye disorder - glaucoma. Functional Capacity Functional capacity: 4-6 METs Comments: Active around the house and independent in ADLs. Able to climb flight of stairs without CP or SOB. No exercise regimen. Review of Systems + chronic pain + vision loss (glasses) Pertinent negatives: productive cough; wheezing; SOB; recent cold/flu; fever; chest pain; palpitations; orthopnea; pedal edema; PND; heavy menses; previous transfusion; melena/hematochezia; easy bruising; bleeding problems; syncope; dizziness; muscle weakness; numbness/tingling; hard of hearing; heartburn; nausea; dysphagia; diarrhea; dentures/partials; chipped/loose teeth; abdominal pain; diaphoresis and no unexpected weight change Patient Active Problem List Diagnosis Date Noted Mixed hyperlipidemia 12/10/2020 Asthma Arthralgia 07/01/2020 BMI 26.0-26.9,adult 06/12/2020 Bilateral sciatica 12/12/2019 Annual physical exam 12/11/2019 Menopause 11/21/2018 Moderate episode of recurrent major depressive disorder (HCC) 11/21/2018 Myalgia 11/21/2018 Bicuspid aortic valve 08/28/2015 H/O mechanical aortic valve replacement 08/28/2015 Chronic anticoagulation 08/28/2015 Eczema of hand 10/17/2014 Eczema 06/16/2012 Keratosis, senilis 06/16/2012 Osteoarthritis of knee 02/03/2011 Prepatellar bursitis 02/03/2011 Past Medical History: Diagnosis Date Arthritis Asthma Asthma Cataract diagnosed 2018 Depression supposedly; but feel it's a misdiagnosis. [...] ? MITRAL VALVE REPLACEMENT 10/2008 TOE SURGERY Patient unsure of any anesthetic complications and denies any family hx/o anes comp. OB History No obstetric history on file. Allergies Allergen Reactions Pregabalin Unknown and Rash Med List Status: Nurse Complete Set By: Marilin Javed RN at 08/06/2023 10:28 AM Taking? Last Dose Start Date End Date Provider albuterol HFA (ProAir HFA) 90 mcg/actuation inhaler -- 02/23/20 -- Helena Yu PA Inhale 2 puffs every 4 (four) hours as needed for wheezing artificial tears (ISOPTO TEARS) 0.5 % ophthalmic solution -- -- -- Reynaldo Antonio MD aspirin 81 mg enteric coated tablet -- -- -- Reynaldo Antonio MD atorvastatin (LIPITOR) 20 mg tablet -- -- -- Reynaldo Antonio MD calcium carbonate-vitamin D3 (CALTRATE 600 + D) 1500 mg (600 mg elemental) -400 units per tablet ---- -- Reynaldo Antonio MD cyanocobalamin (Vitamin B-12) 1,000 mcg tablet -- -- -- Reynaldo Antonio MD gabapentin (NEURONTIN) 300 mg capsule -- 11/22/21 -- Reynaldo Antonio MD LATANOPROST OPHT -- -- -- Reynaldo Antonio MD magnesium oxide 400 mg magnesium capsule -- -- -- Reynaldo Antonio MD menthol 4 % gel -- -- -- Reynaldo Antnoio MD sodium chloride (OCEAN) 0.65 % nasal spray -- -- -- Reynaldo Antonio MD warfarin (COUMADIN) 2 mg tablet -- -- -- Reynaldo Antonio MD -- Patient not taking: -- Patient taking differently: -- Patient taking differently: -- -- -- -- --Patient taking differently: -- Current Outpatient Medications: albuterol HFA (ProAir HFA) 90 mcg/actuation inhaler artificial tears (ISOPTO TEARS) 0.5 % ophthalmic solution aspirin 81 mg enteric coated tablet atorvastatin (LIPITOR) 20 mg tablet calcium carbonate-vitamin D3 (CALTRATE 600 + D) 1500 mg (600 mg elemental) -400 units per tablet cyanocobalamin (Vitamin B-12) 1,000 mcg tablet gabapentin (NEURONTIN) 300 mg capsule LATANOPROST OPHT magnesium oxide 400 mg magnesium capsule menthol 4 % gel sodium chloride (OCEAN) 0.65 % nasal spray warfarin (COUMADIN) 2 mg tablet Last Coumadin 08/19/2023 Social History Tobacco Use Smoking Status Never Smokeless Tobacco Never Alcohol Use: Not At Risk (08/06/2023) AUDIT-C Frequency of Alcohol Consumption: Monthly or less Average Number of Drinks: 1 or 2 Frequency of Binge Drinking: Never Substance and Sexual Activity Drug Use Never Family History Problem Relation Age of Onset Other Father [place] age 50, CABG; Heart attack Father Arthritis Father Hearing loss Father Other (brain tumor) Sister Other Mother H/O CVA, 2012; Stroke Mother Vision loss Mother Clotting disorder Mother Other Sister MVP; Cancer Sister Arthritis Sister Diabetes Sister Arthritis Sister defects Son Developmental delay Son Hyperlipidemia Son Vision loss Son PAT Physical Exam Airway Exam: Mallampati: III Cervical ROM: limited extension TM distance: 3 Cardiovascular Exam: Rate: regular Rhythm: regular Negative for peripheral edema Pulmonary Exam: LCTA, bilat EENT Exam: trachea midline (No carotid bruits ) Dental Exam: Appears intact Skin Exam: Skin is warm. Current state: Patient's current state is cooperative and interactive. Vitals: 08/06/23 1034 BP: 117/52 Pulse: 69 SpO2: 97% Anesthesia hx: Headache with anesthesia occasionally Denies family hx of problems with anesthesia. Social History: Pt is . Plans on to help during recovery from upcoming surgery. Going to [employer] 3 times a week for swimming Labs Recent Labs Lab Units 08/06/23 1247 SODIUM mmol/L 141 POTASSIUM PLASMA mmol/L 4.2 CHLORIDE mmol/L 105 CO2 mmol/L 29 ANIONGAP mmol/L 7 GLUCOSE mg/dL 74 BUN SERUM mg/dL 20 CREATININE mg/dL 0.57* CALCIUM mg/dL 9.3 ALBUMIN g/dL 4.2 ALK PHOS Units/L 123 ALT Units/L 26 AST Units/L 45 BILIRUBIN TOTAL mg/dL 0.5 Recent Labs Lab Units 08/06/23 1248 HEMOGLOBIN A1C % 5.5 Relevant diagnostics: ECG(s): Echocardiogram(s): 02/2023: CONCLUSIONS: Normal left ventricular size. LV wall thickness upper limits of normal. Normal global left ventricular systolic function. Impaired diastolic relaxation Grade I. Ejection fraction about 60 %. Global Longitudinal Strain is -18 %. Normal RV size and systolic function. Normal appearance of the mitral valve. No significant MR. S/P SAVR with [address] Skip [place] prosthesis. Peak Velocity 1.70 m/s. Mean gradient 7 mmHg. Gradients normal for valve type and size. RVSP 27 mmHg. Trivial to mild tricuspid regurgitation. Additional information: Yessy Donaldson is a 67 y.o. female with OA and DJD of the right knee who is being evaluated prior to undergoing an intermediate cardiac risk surgery. Revised Cardiac Risk Index factors are (none)for a total RCRI of 0 out of 6. Functional capacity is 4-6 METs. Assessment: 1) Severe DJD of the right knee. Implementation and Plan: The patient received education regarding the pre-operative and post-operative period, including instructions on using the surgical scrub kit the night prior to surgery and the morning of surgery to decrease the risk of infection. The patient was instructed to call their surgeon should they develop an infection prior to surgery. The patient received screening from Physical therapy and was instructed to start some basic exercises prior to surgery. The patient verbalized understanding of the education they received and was allowed to ask questions as needed. Adrien Ku MD has discussed this procedure and its associated risks with the patient. These risks include; adverse reaction to anesthesia, infection, damage to surrounding structures, DVT, and pulmonary embolism which can even lead to . The patient understands these risks and wishes to proceed with the Right Total Knee Arthroplasty. Patient was offered the option to have a second provider present, in the room, with health history and physical assessment but declined. Blood bank needs for day of procedure: No type and screen needed Preoperative evaluation performed by Chel Zurita NP on 08/06/23 at 10:49 AM. STOP-Bang Total Score: 1 Beaver Activity Status Index Score: 13.5 DOS Physical Exam Medical history, medications, and allergies reviewed. Attestation: This PAT evaluation 08/24/2023. Airway Exam: Mallampati: I Cervical ROM: FROM TM distance: >4 Cardiovascular Exam: Rate: regular Rhythm: regular Pulmonary Exam: LCTA, bilat Dental Exam: Otherwise appears intact and caps (Caps #3,5,8,9) Anesthesia Plan ASA 3 My patient is approved for the Anesthesia Controlled Medication protocol when under care of a SOFTWARE TEST ENGINEER Planned anesthesia: Spinal, PNB - single shot and regional for postop pain per surgeon request Lower extremity: saphenous nerve block - subsartorial approach Postoperative Plan: Postoperative administration opioids intended. No postoperative mechanical ventilation intended. Patient's planned disposition post procedure is Floor. Informed Consent: Discussed plan with SOFTWARE TEST ENGINEER. Anesthesia plan and risks discussed with patient. Plan and Consent Comments: Anesthetic plan includes a spinal as the primary anesthetic with sedation per intravenous line as needed. Peripheral nerve block for post-operative pain control as per surgeon request. General anesthetic as a back up plan with or without endotracheal tube or LMA as required. Consent and Attending signature: I and/or my designee have discussed the anesthesia plan, benefits, possible alternatives, parental presence at time of induction (if indicated), and clinically relevant risks that may include dental injury, unintentional awareness, and/or other complications. The patient and/or parent/legal guardian understand, and agree to proceed. All questions answered. documented in this encounter Plan of Treatment Not on file documented as of this encounter Procedures Procedure Name Priority Date/Time Associated Diagnosis Comments HI AN PROCEDURE PLACEHOLDER Routine 08/24/2023 11:46 AM CDT HI AN PROCEDURE PLACEHOLDER Routine 08/24/2023 9:47 AM CDT documented in this encounter Results * HI AN PROCEDURE PLACEHOLDER (08/24/2023 11:46 AM CDT) Narrative Yasmany Crowe CRNA - 08/24/2023 11:46 AM CDT Yasmany Crowe CRNA ? 08/24/2023 11:48 AM Spinal Block Patient location: OR End time: 08/24/2023 11:19 AM Reason for block: primary anesthetic Staff: Placed by: SOFTWARE TEST ENGINEER:Yasmany Crowe CRNA Procedure prep: Preprocedure checklist: patient identified, procedure contraindications assessed, procedure consent, IV checked, risks, benefits and alternatives discussed, monitors and equipment checked and timeout performed Patient position: sitting Procedure performed while patient: sedate with meaningful contact Monitoring: oximetry and blood pressure Supplemental O2: nasal cannula Prep solution: iodine povacrylex PPE: provider hat/mask, sterile gloves and sterile drape Skin infiltrated with lidocaine 1%: yes Spinal: Approach: midline Introducer used: yes Location: L4-5 Spinal injection: CSF demonstrated, no aspiration of heme and no paresthesias noted Number of attempts: 1 Spinal Needle: Needle type: pencil-tip Needle gauge: 25 G Needle length: 5 cm Assessment: Sensory deficit - left: T8 Sensory deficit - right: T8 Events: patient tolerated procedure well with no complications us Parish Hoyos MD ANESTHESIA ORDERAB LES Edited Result - Final * HI AN PROCEDURE PLACEHOLDER (08/24/2023 9:47 AM CDT) Narrative Parish Hoyos MD - 08/24/2023 9:47 AM CDT Parish Hoyos MD ? 08/24/2023 ??9:48 AM Peripheral Block Patient location during procedure: pre-op holding End time: 08/24/2023 9:45 AM Reason for block: post-op pain management per surgeon request Ultrasound image in chart or stored: yes Block type: single shot Laterality: right Block type: saphenous nerve block - subsartorial approach Staff: Placed by: Anesthesiologist: Parish Hoyos MD Procedure assisted by: Huma Brown RN Procedure prep: Preprocedure checklist: patient identified, procedure contraindications assessed, site marked, procedure consent, surgical consent, IV checked, risks, benefits and alternatives discussed, monitors and equipment checked and timeout performed Patient position: supine Procedure performed while patient: sedate with meaningful contact Monitoring: ECG, oximetry and blood pressure Supplemental O2: nasal cannula Prep solution: chlorhexidine/alcohol PPE: provider hat/mask and sterile probe cover and gel Peripheral nerve block: Technique: ultrasound guided Technique: (ultrasound used for needle guidance and for active visualization of local anesthetic placement) Needle type: echogenic Needle gauge: 20 G Needle length: 100 mm Injection assessment: injection made incrementally with constant monitoring, local visualized surrounding nerve on ultrasound, negative aspiration for heme, no paresthesias noted, normal resistance to injection and see flowsheet for medication details (sedation meds documented in anesthetic record) Assessment: Block success: full evaluation pending Events: patient tolerated procedure well with no complications Parish Hoyos MD ANESTHESIA ORDERAB LES Final Result documented in this encounter Visit Diagnoses Not on filedocumented in this encounter Administered Medications Inactive Administered Medications - up to 3 most recent administrations Medication Order MAR Action Action Date Dose Rate Site BUPivacaine 0.75% (MARCAINE SPINAL) preservative free injection in dextrose intrathecal, As needed, Starting on Thu08/24/23 at 1119, Anesthesia Intra-op, Indications: Spinal AnesthesiaIndications:Spinal Anesthesia Given 08/24/2023 11:19 AM CDT 1 mL BUPivacaine-EPINEPHrine (MARCAINE with EPI) 0.5 %-1:200,000 preservative free injection perineural, As needed, Starting on Thu08/24/23 at 0942, Anesthesia Intra-op Given 08/24/2023 9:42 AM CDT 30 mL ceFAZolin (ANCEF) 2,000 mg/20 mL in sterile water (premix) 2,000 mg 2,000 mg, intravenous, at 400 mL/hr, Administer over 3 Minutes, Once, On Thu08/24/23 at 0900, For 1 dose, Pre-Op, Administer within 60 minutes of incision., Indications: Prophylaxis, SurgicalIndications:Prophylaxis , Surgical Given 08/24/2023 11:25 AM CDT 2,000 mg fentaNYL (SUBLIMAZE) preservative free injection intravenous, As needed, Starting on Thu08/24/23 at 0940, Anesthesia Intra-op Given 08/24/2023 12:45 PM CDT 25 mcg Given 08/24/2023 9:40 AM CDT 50 mcg fentaNYL (SUBLIMAZE) preservative free injection intrathecal, As needed, Starting on Thu08/24/23 at 1119, Anesthesia Intra-op Given 08/24/2023 11:19 AM CDT 25 mcg ketorolac (TORADOL) 30 mg/mL injection intravenous, As needed, Starting on Thu08/24/23 at 1252, Anesthesia Intra-op Given 08/24/2023 12:52 PM CDT 30 mg Lactated Ringer's (LR) infusion 30 mL/hr, intravenous, Continuous, Starting on Thu08/24/23 at 0900, Pre-Op Rate/Dose Verify 08/24/2023 11:09 AM CDT 30 mL/hr New Bag 08/24/2023 8:45 AM CDT 30 mL/hr 30 mL/hr midazolam (VERSED) 1 mg/mL preservative free injection intravenous, Administer over 2 Minutes, As needed, Starting on Thu08/24/23 at 0940, Anesthesia Intra-op Given 08/24/2023 9:40 AM CDT 2 mg ondansetron (ZOFRAN) injection intravenous, Administer over 2 Minutes, As needed, Starting on Thu08/24/23 at 1253, Anesthesia Intra-op Given 08/24/2023 12:53 PM CDT 4 mg phenylephrine (JESSICA-SYNEPHRINE) 1 mg/10 mL (100 mcg/mL) in sodium chloride 0.9% (premix) intravenous, As needed, Starting on Thu08/24/23 at 1134, Anesthesia Intra-op New Bag 08/24/2023 11:35 AM CDT 0.3 mcg/kg/min 10.584 mL/hr Given 08/24/2023 11:34 AM CDT 100 mcg Given 08/24/2023 11:32 AM CDT 100 mcg propofoL (DIPRIVAN) 10 mg/mL IV intravenous, Continuous PRN, Starting on Thu08/24/23 at 1121, Anesthesia Intra-op Rate/Dose Change 08/24/2023 11:43 AM CDT 60 mcg/kg/min 21.168 mL/hr New Bag 08/24/2023 11:21 AM CDT 100 mcg/kg/min 35.28 mL /hr tranexamic acid (CYKLOKAPRON) 1,000 mg/10 mL (100 mg/mL) solution intravenous, As needed, Starting on Thu08/24/23 at 1133, Anesthesia Intra-op Given 08/24/2023 11:33 AM CDT 1,000 mg documented in this encounter 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
--- OUTSIDE RECORDS SUMMARY | 2024-04-01 07:35 | XMS_ITS | Encounter Summary ---
Author Organization [facility] Healthcare Address [address] [place] [address] Care Team Providers Care Home Demonstrator Name Role Phone Sanket Waldron Primary Care Provide r Adrien Camejo MD Unavailable Reason for Visit * Auth/Cert (Routine) Specialty Diagnoses / Procedures Referred By Chucky acevedo Referred To Contact Diagnoses Primary osteoarthritis of right knee Primary osteoarthritis of right knee [M17.11] Procedures ME ARTHRP KNE CONDYLE&PLATU MEDIAL&LAT COMPARTMENTS ME ARTHROPLASTY PATELLA W/O PROSTHESIS Right Total Knee Arthroplasty Referral ID Status Reason Start Date Expiration Date Visits Re quested Visits Authorized [id number] 1 1 Encounter Details Date Type Department Care Team (Latest Contact Info) Description 08/24/2023 7:58 AM CDT - 08/25/2023 2:04 PM CDT Hospital Encounter [facility] [address] [place] [phone] Adrien Camejo MD [address] [facility] [address] [place] [address] Discharge Disposition: Discharge to home or self care Social History Tobacco Use Types Packs/Day Years [...] on file Legal Sex 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 Gender Identity Female 06/01/2020 9:42 PM 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 Sexual Orientation Straight 06/01/2020 9: 42 PM 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 Not on file Not on file Not on file documented as of this encounter Last Filed Vital Signs Vital Sign Reading Time Taken Comments Blood Pressure 116/57 08/25/2023 1:00 PM CDT Pulse 75 08/25/2023 11:10 AM CDT Temperature 36.3 ??C (97.4 ??F) 08/25/2023 1 1:10 AM CDT Respiratory Rate 16 08/25/2023 11:1 0 AM CDT Oxygen Saturation 95% 08/25/2023 11: 10 AM CDT Inhaled Oxygen Concentration - - Weight 58.8 kg (129 lb 10.1 oz) 08/24/2023 8:40 AM CDT Height 152.4 cm (5') 08/24/2023 8:40 AM CDT Body Mass Index 25.32 08/24/2023 8:40 AM CDT documented in this encounter Discharge Summaries * Yanelis Romero NP - 08/25/2023 12:53 PM CDT Inpatient Discharge Summary BRIEF OVERVIEW Admitting Provider: Adrien Camejo MD Discharge Provider: No att. providers found Primary Care Physician at Discharge: Sanket Waldron DO [phone] Admission Date: 08/24/2023 Discharge Date: 08/25/2023 Primary Discharge Diagnosis: Osteoarthritis right knee Secondary Discharge Diagnosis: Past Medical History: Diagnosis Date Arthritis Asthma Asthma Cataract diagnosed 2019 Depression supposedly; but feel it's a misdiagnosis. Eczema eczema GERD (gastroesophageal reflux disease) at least 10 years Heart disease HX OTHER MEDICAL diverticulosis Mitral valve prolapse Myalgia Neuromuscular disorder (HCC) Have had sciatica for 17 months. DETAILS OF HOSPITAL STAY Presenting Problem/History of Present Illness: Yessy Donaldson is a very nice 68 y.o. female who has chronic pain involving her right knee secondary to arthritic changes. her pain has become unresponsive to conservative treatment. she has elected to proceed with a right total knee replacement. Hospital Course: On 08/24/2023 , Yessy Donaldson was taken to the operating room where she underwent a Right Total Knee Arthroplasty . Post operatively she was placed on Warfarin and pneumatic sequential compression pumps for DVT prophylaxis. She was seen by PT and OT with weight bearing as tolerated. Yessy Donaldson has made good progress with therapy, and is felt safe for discharge today. She is discharged home to outpatient therapy. She is to resume normal preoperative diet. Resume Warfarin 2 mg daily and ASA 81 mg daily. Follow up will be with Adrien Ku MD . Active Issues Requiring Follow-up: None Test Results Pending at Discharge: N/A Operative Procedures Performed: Procedure(s): Right Total Knee Arthroplasty Other Procedures: N/A Pertinent Test Results: N/A Discharge Details DISCHARGE DIAGNOSIS OA Right knee s/p Right Total Knee Arthroplasty Physical Exam at Discharge: Discharge Condition: good Pulse: 75 Resp: 16 BP: 116/57 Temp: 36.3 ??C (97.4 ??F) Discharge Disposition: Discharge to home or self care Code Status at Discharge: Full Code Pertinent Exam Findings at Discharge: Dressing clean, dry and intact. Grossly neurovascularly intact operative extremity. No redness, swelling or drainage noted. Discharge Instructions: Activity Instructions Discharge Activity: Walking -You may walk as tolerated. Diet Instructions Adult Discharge Diet Diet Type: Return to previous diet Other Instructions Call provider for: increased temperature -Temperature greater than 101 degrees F Call provider for: nausea, vomiting, diarrhea -If you have persistent nausea, vomiting or diarrhea that does not stop Call provider for: redness, tenderness, or signs of infection (pain, swelling, redness, odor or green/yellow discharge around incision site) Call provider for: severe uncontrolled pain Call provider if: you feel dizzy, very tired or like you may faint Care Instructions: No tub baths -No tub baths, whirlpools or swimming until your provider says it's ok. Care Instructions: Shower -You may shower with the incision covered when there is no drainage Special Instructions Knee Replacement Discharge Instructions Adrien Camejo MD [facility]; [phone] Follow up Appointment in 4 weeks; please call if this has not already been set up. Wound and dressing care: The majority of incisions are closed with internal sutures and sealed withskin adhesive (glue). Please do not remove the glue, it will fall off on its own. Some patient's incisions will be closed with fernanda and a special suction dressing. The fernanda will be removed 7-10days after surgery by the home health nurse. Please keep your incision clean and dry; do not put onany creams, lotions or ointments on the incision. As soon as there's no drainage, you may leave it uncovered. You may shower starting on the second day after surgery. Do not scrub the incision. DO NOT immerse the knee in water for at least 4 weeks - i.e. no bathing or swimming - or longer if the incision hasnot completely healed (scabs). What is normal? It may be normal to have mild fevers after surgery - usually caused by congestion of the lungs - use your incentive spirometer. It is normal to have moderate swelling around the knee and even in the leg. You may also notice bruising in the knee and thigh. This will gradually go away on its own. The scar may feel firm. Usually there is a little numb area around the outside of the incision. This is normal after knee replacement and usually recovers in 3-6 months. It is also normal to have some mild redness around the incision. Blisters around the knee and/or incision area may look alarming but pose no risk, even if they leak, unless they don't appear to begin healing on their own. Decreased appetite is common. Try to eat several small meals a day rather than forcing larger meals. What is NOT normal? (call the office for any of these) excessive drainage from the wound, especially 5-7 days after surgery. Increasing redness well beyond the incision. Excessive fever or chills over 101.5 that is sustained. How do I control swelling and maintain full range of motion? Wear your white stockings (FREDI hose) day and night for at least 4 weeks to decrease swelling in thecalf and foot and to prevent blood clots. Ice - the ice machine will be on most of the day. At home, you only need to use it after using the CPM or doing therapy. Please use it for at least 10-15 minutes. You may use it longer if you wish for pain control. Always have fabric between the pad and your skin - never put the pad of the ice machine directly on your skin. Take a break in the late morning and the late afternoon/early evening and lie down and elevate the leg on several pillows. To be most effective, your foot should be above your heart. This requires that you are lying down (sitting with your foot propped up will not help.) Do your ankle pumps and wiggle your toes. This makes your muscles help remove some of the swelling. Avoid sitting for prolonged periods of time over the first 7-10 days after surgery. Do not sit for more than 45-60 minutes without moving or without elevating your leg above your heart. DO NOT PUT A PILLOW UNDER THE KNEE. This can cause a flexion contracture and lead to a stiff knee. You may put a pillow under the ankle or lower leg if it is more comfortable. Use the knee immobilizer at night for the first week after surgery to help get the knee straight. How do I prevent blood clots? The development of blood clots (DVT) after surgery is a serious and potentially life threatening problem. The prevention of blood clots is critically important in your recovery. The FREDI hose and early mobilization will help prevent blood clots but anti-coagulation medicine (blood thinner) is the cornerstone of blood clot prevention following this surgery. After surgery, you will be on a blood thinner that you will need to continue after your discharge from the hospital. Blood clots are very rare but usually manifest as marked swelling in the lower leg, with increasingredness or a cord like structure you can feel in the leg. Blood clots are hard to identify on physical exam, if you are concerned for a blood clot we obtain an ultrasound as an outpatient. Please keep in mind some swelling in the leg is normal after joint replacement. Follow one of these protocols: Current evidence shows that for most patients, aspirin is the best choice of blood thinner - take an 81mg aspirin tablet twice a day for 4 weeks. You will also be provided with pneumatic compression sleeves to be worn around your calves. These should be used 20 out of 24 hours for 2 weeks after surgery (along with your FREDI hose). OR IF you were taking a blood thinner prior to surgery, we will modify your dosage for 2 weeks and then you should resume your normal dose. OR If you're high risk for developing a DVT, we will put you on Lovanox, Coumadin or Xeralto for 2 weeks instead of aspirin. What medications should I take at home? Pain medications: You will be given prescriptions for both Percocet and Melcroft. In general, Percocetis for severe pain and Melcroft for moderate pain. Both of these are strong narcotics that are highly addictive. Take either of these drugs (but not both) as needed for pain, and begin to wean off of them by 2-3 weeks post-operatively. Tylenol can be used as a non-narcotic alternative for remaining minor pain. If necessary, these can be refilled however plan ahead as Narcotic scripts can no longer be refilled over the phone. You will need to come to the office to roller picker a hand-written prescription. Refills are NOT given over the weekends or after hours. 2. Anti-inflammatory - You will receive a prescription for Meloxicam (Mobic). This keeps swelling and inflammation down. Patients who use an anti-inflammatory after knee replacement surgery have beenshown to need only half as much narcotic medication and regain more range of motion. Take for 4 weeks; if this upsets your stomach, discontinue. Patients over 80 years old or with kidney issues should not take meloxicam. 3. Blood Thinner as prescribed for you specifically. 4. Stool softener - Constipation is common with pain medications and decreased mobility after your knee replacement. First try a stool bulking agent (Metamucil) and, if necessary, milk of magnesia to prevent significantproblems. Stay well hydrated with fluids such as water and fruit juices. These are available over the counter. If the above doesn't help, you can try the following: a. Day 1: Colace or Senokot with Stimulant, take as directed on package insert. b. Day 2 (if no results from Day 1): Dulcolax tablets, two tablets twice this day c. Day 3 (if no results from Day 2): Dulcolax suppository. If no results by pm., use a Fleet enema. Physical Therapy (Home Health or Outpatient): You may need home health physical therapy after surgery. A nurse will monitor your incision and blood thinner if prescribed. Home Health Physical therapywill treat you 2 times a week for up to 2 weeks. Many patients will be ready for immediate outpatient physical therapy and will not need home health. You will know before you leave the hospital if you will have a home health plan or outpatient physical therapy. If you have home health, you should transition to outpatient physical therapy as soon as possible. Please call the office to set this up.Most people will have some form of physical therapy for 6-8 weeks following surgery. CPM Machine: You will not use a CPM (continuous passive motion) machine in the hospital. A CPM machine will be delivered to your home. You should use the machine one hour 3 times a day. The desired settings are -10 degrees to 120 degrees. Usually the first few times there will be pain but it will ease off. Try to increase the range of motion after 5-10 minutes until you are at 120 degrees. You will need to use the CPM machine for the first 3-4 weeks after surgery. When you have easy range of motion greater than 0-120 degrees you may call the CPM provider to retrieve the machine. Getting back to daily routines - Sleep: Sleeping may be difficult but will improve with time. We do not advocate sleeping pills, rather we recommend that you use your pain medications 1 hour prior to bedtime to help you relax, control your pain, and facilitate sleep. It is also helpful to work hard during the day so that you are sleepy at bedtime. Diet: A high protein balanced diet is ideal after surgery. A multivitamin is recommended. Avoid excessive carbohydrates and sugars. Elevated blood glucose levels after surgery can lead to infection. Boost or Ensure are good supplements if you are in need of extra nutrients. Activity: Walking: In most cases after a knee replacement you will be allowed to put as much weight on your operated leg as tolerated. Your therapist will progress you from the walker to the cane, and off the cane. This process usually takes 3-4 weeks. It is best to use the cane in the hand opposite the sideof your surgery. Driving: You may be able to begin driving in 2-4 weeks, provided you are walking with a cane (or nosupport), have adequate control of your leg to operate your car, and are no longer taking narcotic pain medications. Patients that have had their left knee replaced usually drive sooner than patientsthat have had right knee replacement. Metal detectors: The sensitivity of metal detectors varies and it is possible that your prosthesis will cause an alarm. In order to avoid an issue, tell [employer] that you have a knee prosthesis and they will use the full body scanner. Sex: sexual relations can be safely resumed approximately 4-6 weeks after surgery. Return to work: Depending on the type of activities you perform, it may be 1-3 months before you return to work. Sports: Swimming and pool therapy is okay once your incision is healed. Important phone numbers: Emergency exchange after hours Marialuisa (Dr. Camejo's commercial lines assistant) Special Instructions: Continue following PT/OT instructions Discharge Medications: Your medication list START taking these medications docusate sodium 100 mg capsule Take 1 capsule (100 mg total) by mouth 2 (two) times a day Commonly known as: COLACE HYDROcodone-acetaminophen 5-325 mg per tablet Take 1-2 tablets by mouth every 6 (six) hours as needed for pain (Moderate Pain) Commonly known as: NORCO oxyCODONE-acetaminophen 5-325 mg per tablet Take 1-2 tablets by mouth every 6 (six) hours as needed for pain (Severe Pain) Commonly known as: PERCOCET CONTINUE taking these medications albuterol HFA 90 mcg/actuation inhaler Inhale 2 puffs every 4 (four) hours as needed for wheezing Commonly known as: ProAir HFA artificial tears 0.5 % ophthalmic solution Administer 1 drop into both eyes as needed Commonly known as: ISOPTO TEARS aspirin 81 mg enteric coated tablet Take 1 tablet (81 mg total) by mouth every morning atorvastatin 20 mg tablet Take 1 tablet (20 mg total) by mouth every morning Commonly known as: LIPITOR calcium carbonate-vitamin D3 1500 mg (600 mg elemental) -400 units per tablet Take 1 tablet by mouth every morning Commonly known as: CALTRATE 600 + D cyanocobalamin 1,000 mcg tablet Take 1 tablet (1,000 mcg total) by mouth every morning Commonly known as: Vitamin B-12 gabapentin 300 mg capsule Take 1 capsule (300 mg total) by mouth 3 (three) times a day as needed Commonly known as: NEURONTIN LATANOPROST OPHT Administer 1 drop into affected eye(s) nightly magnesium oxide 400 mg magnesium capsule Take 1 tablet by mouth nightly menthol 4 % gel Apply 1 Application topically as needed sodium chloride 0.65 % nasal spray Administer 1 spray into each nostril as needed Commonly known as: OCEAN warfarin 2 mg tablet Take 1 tablet (2 mg total) by mouth every morning Commonly known as: COUMADIN Yanelis Romero NP 08/25/2023 documented in this encounter Discharge Instructions * Attachments The following attachments cannot be sent through Care Everywhere. * Wound Healing and Your Diet (General Information) ([place]) * Laxative, Stool Softeners (By mouth) ([place]) * Hydrocodone/Acetaminophen (By mouth) ([place]) * Oxycodone, Rapid Release (By mouth) ([place]) * Meloxicam (By mouth) ([place]) documented in this encounter Medications at Time of Discharge artificial tears (ISOPTO TEARS) 0.5 % ophthalmic solution Administer 1 drop into both eyes as needed calcium carbonate-vitami n D3 (CALTRATE 600 + D) 1500 mg (600 mg elemental) -400 units per tablet Take 1 tablet by mouth every morning cyanocobalamin (Vitamin B-12) 1,000 mcg tabletIndication s:Prevention of Vitamin B12 Deficiency Take 1 tablet (1,000 mcg total) by mouth every morning gabapentin (NEURONTIN) 300 mg capsule Take 2 capsules (600 mg total) by mouth 3 (three) times a day as needed 11/22/2021 LATANOPROST OPHT Administer 1 drop into affected eye(s) nightly menthol 4 % gel Apply 1 Application topically as needed sodium chloride (OCEAN) 0.65 % nasal spray Administer 1 spray into each nostril as needed albuterol HFA (ProAir HFA) 90 mcg/actuation inhaler Inhale 2 puffs every 4 (four) hours as needed for wheezing 1 Inhaler 1 02/23/2020 aspirin 81 mg enteric coated tablet Take 1 tablet (81 mg total) by mouth every morning docusate sodium (COLACE) 100 mg capsuleIndicatio ns:constipation Take 1 capsule (100 mg total) by mouth 2 (two) times a day 08/25/2023 HYDROcodone-acet aminophen (NORCO) 5-325 mg per tabletIndication s:Pain Take 1-2 tablets by mouth every 6 (six) hours as needed for pain (Moderate Pain) 30 tablet 08/24/2023 magnesium oxide 400 mg magnesium capsule Take 1 tablet by mouth nightly oxyCODONE-acetam inophen (PERCOCET) 5-325 mg per tabletIndication s:Pain Take 1-2 tablets by mouth every 6 (six) hours as needed for pain (Severe Pain) 30 tablet 08/24/2023 atorvastatin (LIPITOR) 20 mg tablet Take 1 tablet (20 mg total) by mouth every morning warfarin (COUMADIN) 2 mg tablet Take 1 tablet (2 mg total) by mouth every morning 4 documented as of this encounter Ordered Prescriptions Prescription Sig Dispense Quantity Refills Last Filled Start Date End Date docusate sodium (COLACE) 100 mg capsuleIndications :constipation Take 1 capsule (100 mg total) by mouth 2 (two) times a day 08/25/2023 oxyCODONE-acetamin ophen (PERCOCET) 5-325 mg per tabletIndications: Pain Take 1-2 tablets by mouth every 6 (six) hours as needed for pain (Severe Pain) 30 tablet 08/24/2023 HYDROcodone-acetam inophen (NORCO) 5-325 mg per tabletIndications: Pain Take 1-2 tablets by mouth every 6 (six) hours as needed for pain (Moderate Pain) 30 tablet 08/24/2023 meloxicam (MOBIC) 15 mg tablet Take 1 tablet (15 mg total) by mouth daily 30 tablet 11 08/24/2023 4 documented in this encounter Discharge Disposition Disposition Code Departure Means Destination Comment s Discharge to home or self care documented in this encounter Progress Notes * Yessy Lal, PT - 08/25/2023 11:39 AM CDT Physical Therapy 08/25/23 1139 General Chart Reviewed Yes Session Type Evaluation PT Received On 08/25/23 Safe Environment Arm band checked;Patient found sitting in chair;Session completed in gym;Gait beltutilized for all out of bed mobility Subjective Agreeable to Therapy Subjective Comment Pt reports pain in her knee but she is ready for therapy. Additional Pertinent History 68 yo female s/p right TKR 08/24/[address] Zayas, WBAT. PMH includes butnot limited to: asthma, HLD, anxiety, depression, GERD, fibromyalgia, aortic valve replacement Family/Caregiver Present Yes () Physical Therapy-Patient Goal return home Precautions Precautions Fall risk;Knee RLE Weight Bearing WBAT Home Living Type of Home House Home Layout One level Home Access Stairs to enter without rails Entrance Stairs-Rails None Entrance Stairs-Number of Steps 1+1 Bathroom Shower/Tub Tub/shower unit Bathroom Toilet Standard Bathroom Equipment Shower chair;Commode Home Mobility Equipment-Available Wheeled walker;Single point cane (Also has two walking sticks.) Home Mobility Equipment-Currently Using (Pt unclear with answers- states she used WW one time in the past few months and uses her walking sticks some of the time .) Home ADL Equipment-Currently Using Senior 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 Engineer Prior Function Level of [place] Independent with ADLs;Independent functional transfers;Independent with ambulation;Independent with homemaking with ambulation Lives With Spouse;Son (son is blind) Receives Help From Spouse/Significant other (pt states kind-of when asked if her will be able to assist, states her son has been helpful with stuff) Driving Yes ADL Assistance Independent 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 Post activity: 116/57, 80 bpm, 97% Pain Assessment Pain Assessment 0-10 Pain Score 7 Patient's Stated Pain Goal No pain Pain Type Surgical pain Pain Location Knee Pain Orientation Right Clinical Progression Gradually improving Pain Interventions Cold applied;Elevated;Rest;RN Notified Response to Interventions Partial pain relief Cognition Orientation Oriented X4 (person, place, time, situation) Compliance/Behavior Easy to engage Bed Mobility Bed Mobility Yes Bed Mobility 1 Bed Mobility From 1 Edge of bed (therapy mat) Bed Mobility Type 1 To and from Bed Mobility to 1 Supine Level of Assistance 1 Standby Assist Transfers Transfer Yes Transfer 1 Transfer From 1 Sit Transfer Type 1 To and from Transfer to 1 Stand Technique 1 Sit to stand;Stand to sit Transfer Device 1 Wheeled walker Transfer Level of Assistance 1 Standby Assist Trials/Comments 1 completed from various surfaces Transfers 2 Transfer From 2 Stand Transfer Type 2 To and from Transfer to 2 Car Technique 2 Stand and step Transfer Device 2 Wheeled walker Transfer Level of Assistance 2 Standby Assist Trials/Comments 2 educated on seat positioning Ambulation Ambulation Yes Ambulation 1 Distance (ft) 1 15+50+10+500 Surface 1 Level tile Device 1 Wheeled walker Assistance 1 Standby Assist Gait: Requires verbal cues to 1 Use assistive device safely;Utilize appropriate gait sequencing Gait Deviations 1 [place] - decreased;Antalgic;Stance time - decreased;Step length - decreased;Weight bearing through UE???s - increased (decreased knee extension during stance on right) Stairs Stairs Yes Stair Comments step-to pattern Stairs Number of Stairs 1 4 inch step x2 reps Rails 1 None (Comment) Device 1 Hand held assist;Single point cane (completed once with therapist and once with ) Assistance 1 Minimum Assist Stairs: Requires assist with 1 Appropriate sequencing Curbs Curb Height 8 inches Curb: Method ascend/descend forward and ascend backward/descend forward Curb: Device Wheeled walker Curb: Level of Assistance Minimum Assist RLE Assessment RLE Assessment X AROM RLE (degrees) R Knee Flexion 58 in supine, 68 in sitting R Knee Extension 14 PT Treatment/Exercise Comments PT Treatment/Exercise Comments TKR protocol x10-15 reps Other Comments Other PT Comments Pt tolerated today's session well without adverse response. Pt/spouse verbalize understanding of education about home exercises, safe mobility, frequent ambulation, polar care use and pain control techniques. She is safe to return home. Safe Environment End of Therapy Session Safe Environment End of Therapy Session Patient left in recliner;RN notified;Call light within reach;Overbed table within reach (did not don polar care or SCD's due to pt being discharged at end of therapy session) Assessment Prognosis Good Problem List Gait deviations;Decreased strength;Decreased range of motion;Decreased mobility;Pain Barriers to Discharge None Plan Plan Plan of care initiated;If this is the last note, consider this the discharge summary Recommendation/Plan PT Recommendation/Plan (S) Home with family;Outpatient PT PT Recommendation/Plan Comments safe to transport by car PT Frequency during current admission Daily Treatment/Interventions during current admission Balance Training;Bed mobility;Endurance training;Functional activity;Functional transfer training;Gait training;Stair training;Therapeutic activity;Therapeutic exercise;Transfer training PT Equipment Recommended None (has personal WW at hospital) PT - OK to Discharge Yes PT Evaluation Complete Yes Education: Patient and significant other has been educated on the role of PT, safety , mobility training, stairs, and home exercise program. Education completed via explanation and demonstration. Patient and significant other verbalized understanding * Olga Alex, OT - 08/25/2023 9:48 AM CDT Occupational Therapy Evaluation 08/25/23 0948 General Chart Reviewed Yes Session Type Evaluation OT Received On 08/25/23 Safe Environment Arm band checked;Patient found in supine;Gait belt utilized for all out of bed mobility Subjective Agreeable to Therapy Subjective Comment Pt states she's ready to move and says moving helps with knee pain. Additional Pertinent History 68 yo female s/p right TKA 08/[address] Camejo. PMH: anxiety and depression, HLD, asthma, OA, GERD, aortic valve replacement, glaucoma Family/Caregiver Present Yes () Occupational Therapy-Patient Goal Pt hopes to return home to out-pt PT with a company she has used in the past. Precautions Precautions Fall risk;Knee Precaution Handout Issued Yes Precaution Comments Reviewed total knee handout with patient/. Educated on use of ice, bloodclot prevention, and proper positioning. Home Living Type of Home House Home Layout One level Home Access Stairs to enter without rails Entrance Stairs-Rails None Entrance Stairs-Number of Steps 2 stairs at back entrance Bathroom Shower/Tub Tub/shower unit Bathroom Toilet Standard Bathroom Equipment Shower chair;Commode (Was not using chair. Has commode placed in office/bedroom that she occasionally uses stating her walker doesn't fit well in bathroom and its just easier to use commode.) Home Mobility Equipment-Available Wheeled walker;Single point cane (Also has two walking sticks.) Home Mobility Equipment-Currently Using Other (Comment) (Pt unclear with answers- states she used WW one time in the past few months and uses her walking sticks some of the time .) Home ADL Equipment-Currently Using Senior Firewall Engineer Additional Comments Pt was independent with ambulation with occasional use of walking sticks. States both knees don't bend well and has plans to get her left knee done at a later time. Prior Function Level of [place] Independent with ADLs;Independent with ambulation;Independent with homemakingwith ambulation Lives With Spouse;Son (Has a son who is blind) Driving Yes ADL Assistance Independent Instrumental ADL (IADL) Assistance (Shares with spouse- he does most IADLs around hose. 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 does most IADLs- unclear if knee pain and limitations cause occasional bad days - pt is unclear occasionally and does not always directly answer OTs questions. Grooming Grooming: Where assessed Standing at sink Grooming: Level of assistance Standby Assist Grooming: Assistance with Teeth care LE Dressing LE Dressing: Where assessed Chair LE Dressing: Level of assistance Minimum Assist LE Dressing: Assistance with Requires assistive device for steadying;Don/doff R sock;Don/doff L sock;Thread RLE into pants;Thread LLE into pants (Pt able to don pants without AE with SBA. Educated on use of real estate account executive if ever needed. Educated pt on use of sock aid to don socks- demo understanding. Educated on how to don compression socks.) Toileting Toileting: Where assessed Toilet Toileting: Equipment utilized (BSC placed over toilet) Toileting: Level of assistance Standby Assist Kitchen Mobility Kitchen Mobility Comments Educated pt on safe walker use in kitchen and how to safely reach into cabinets and refrigerator. Pt demo good understanding and completed with SBA. Already has a walker bagon her walker. Tub Transfers Tub Transfers Comments Educated on safe tub transfer technique. Pt completes with minimal assist. INformed she will need present for first few showers. Also educated on benefits of hand held shower head and where to obtain. Pt voices understanding. Pain Assessment Pain Assessment 0-10 Pain Score 7 (at rest) Pain Location Knee Pain Orientation Left Clinical Progression Gradually improving (Decreases with activity 5/10) Pain Interventions RN Notified;Rest;Cold applied Activity Tolerance Endurance Tolerates 30+ min activity without fatigue Activity Tolerance Comments Vitals at rest: HR 73, O2 96% Vision-Basic Assessment Current Vision Wears glasses all the time Cognition Arousal/Alertness Alert;Appropriate responses to stimuli Attention Span Appears intact Current communication Appears Intact Orientation Oriented X4 (person, place, time, situation) Following Commands Follows one step commands without difficulty Safety Judgment Good awareness of safety precautions Awareness of Errors Assistance required to identify errors made Insight Fully aware of deficits Compliance/Behavior Easy to engage Hand Preference Hand Preference Right Bed Mobility 1 Bed Mobility Comments 1 N/A- pt up in chair upon arrival. Transfer 1 Trials/Comments 1 Sit to stand SBA. Pt ambulates in room and hallway with walker and SBA. Initiallyneeds cues to push walker instead of roller picker. Completes toilet/chair transfers with SBA and controlled movements to prevent knee pain. RUE Assessment RUE Assessment WFL LUE Assessment LUE Assessment WFL OT Treatment/Exercise Comments OT Treatment/Exercise Comments OT wrote down recommended AE on handout- voices understanding on where to obtain. Other Comments Comments Pt reports feeling good to go home with assist from . Hoping to try stairs beforedischarge- informed her that PT will work on steps during their eval. Safe Environment End of Therapy Session Safe Environment End of Therapy Session Patient left in chair;Chair alarm in place and activated;RNnotified;Call light within reach;Overbed table within reach Assessment Prognosis Good Problem List Decreased endurance;Decreased balance;Decreased functional mobility;Decreased ADL independence;Decreased IADL independence;Pain Barriers to Discharge None Plan Plan Plan of care initiated;If this is the last note, consider this the discharge summary Recommendation/Plan OT Recommendation (S) Home with family;Home with intermittent assist;Outpatient PT OT Frequency during current admission 2-3x/wk Treatment/Interventions during current admission ADL/IADL retraining;Balance Training;Endurance training;Equipment eval/education;Functional activity;Functional mobility training;Functional transfer t raining;Strengthening;Therapeutic activity;Therapeutic exercise;Transfer training OT Evaluation Complete Yes Education: Patient has been educated on the role of OT, safety, precautions, ADL training, mobilitytraining, body mechanics, and use of adaptive equipment/DME. Education completed via verbal instruction. Patient verbalized understanding * Yanelis Romero NP - 08/25/2023 9:24 AM CDT Orthopedic Surgery Progress Note Patient Name: Yessy Donaldson Date of : 1955 Primary Physician: Sanket Waldron DO Admission Date: 08/24/2023 Length of Stay: 0 Subjective Chief complaint: OA of right knee Interval History: s/p Right Total Knee Arthroplasty with Adrien Ku MD # 1 Day Post-Op Pt seen and examined. No acute events overnight and no new complaints this morning. Patient resting comfortably in a chair. Reports that pain is controlled. Tolerating diet, no nausea or vomiting Voiding without difficulty. ROS Constitutional: Negative for chills and fever. Respiratory: Negative for shortness of breath. Cardiovascular: Negative for chest pain. Objective Physical Exam General: appears stated age and cooperative Neurovascular: NVI, Sensation intact bilaterally, Distal pulses palpable bilaterally. Normal ankle flexion and extension with full range of motion Wound: Surgical dressing clean, dry and intact. No erythema, ecchymosis, or drainage noted.Dressingchanged, [place] dressing applied. Polar care applied to knee. CV: RRR Lungs: CTA bilaterally, no respiratory distress noted PMH: Past Medical History: Diagnosis Date Arthritis Asthma Asthma Cataract diagnosed 2019 Depression supposedly; but feel it's a misdiagnosis. Eczema eczema GERD (gastroesophageal reflux disease) at least 10 years Heart disease HX OTHER MEDICAL diverticulosis Mitral valve prolapse Myalgia Neuromuscular disorder (HCC) Have had sciatica for 17 months. Inpatient Medications: Scheduled Meds:ascorbic acid, 500 mg, oral, Daily calcium carbonate, 400 mg of elemental calcium, oral, BID dexAMETHasone, 4 mg, intravenous, Q8H docusate sodium, 100 mg, oral, BID latanoprost, 1 drop, each eye, Nightly magnesium oxide, 400 mg, oral, Nightly sodium chloride 0.9%, 0.5-20 mL, intra-catheter, Q8H FLORES Continuous Infusions:Lactated Ringer's, 100 mL/hr, Last Rate: 100 mL/hr (08/24/23 493) PRN Meds:. albuterol HFA aluminum-magnesium hydroxide-simethicone gabapentin HYDROcodone-acetaminophen HYDROcodone-acetaminophen HYDROmorphone ondansetron oxyCODONE peg 400-propylene glycol prochlorperazine sodium chloride 0.9% sodium chloride 0.9% Vitals: Vitals: 08/25/23 1300 BP: 116/57 Pulse: Resp: Temp: SpO2: Vitals: 08/25/23 0547 08/25/23 0745 08/25/23 1110 08/25/23 1300 BP: 96/47 114/47 (!) 99/42 116/57 BP Location: Right arm Patient Position: Lying Pulse: 68 63 75 Resp: 16 16 16 Temp: 36.4 ??C (97.6 ??F) 36.4 ??C (97.5 ??F) 36.3 ??C (97.4 ??F) TempSrc: Oral Oral SpO2: 95% 94% 95% Weight: Height: Intake &Output I/O last 3 completed shifts: In: 1900 [I.V.:1700; IV Piggyback:200] Out: 1025 [Urine:950; Blood:75] No intake/output data recorded. Diagnostics LAB, RADIOLOGY, DIAGNOSTIC REVIEW: Recent Labs Lab Units 08/25/23 0541 WBC K/cumm 7.0 HEMOGLOBIN g/dL 10.4* HEMATOCRIT % 32.9* PLATELETS K/cumm 148* Recent Labs Lab Units 08/25/23 0541 SODIUM mmol/L 141 POTASSIUM PLASMA mmol/L 4.4 CHLORIDE mmol/L 107 CO2 mmol/L 26 ANIONGAP mmol/L 8 GLUCOSE mg/dL 89 BUN SERUM mg/dL 15 CREATININE mg/dL 0.47* CALCIUM mg/dL 8.8 Lab Results Component Value Date SODIUM 141 08/25/2023 POTASSIUM 4.4 08/25/2023 CHLORIDE 107 08/25/2023 CO2 26 08/25/2023 ANIONGAP 8 08/25/2023 BUNSER 15 08/25/2023 CREATININE 0.47 (L) 08/25/2023 GFRNAA >90 08/25/2023 GLUCOSE 89 08/25/2023 CALCIUM 8.8 08/25/2023 BILITOT 0.5 08/06/2023 PROT 7.3 08/06/2023 ALBUMIN 4.2 08/06/2023 ALKPHOS 123 08/06/2023 ALT 26 08/06/2023 AST 45 08/06/2023 CBC Lab Results Component Value Date WBC 7.0 08/25/2023 HGB 10.4 (L) 08/25/2023 HCT 32.9 (L) 08/25/2023 LABPLAT 148 (L) 08/25/2023 MPV 10.7 08/25/2023 RBC 3.35 (L) 08/25/2023 MCV 98.2 (H) 08/25/2023 MCH 31.0 08/25/2023 MCHC 31.6 (L) 08/25/2023 RDWCV 13.2 08/25/2023 RDWSD 47.6 08/25/2023 NRBCABS 0.00 08/25/2023 Problem List Principal Problem: Osteoarthritis of knee Active Problems: Arthritis of right knee Assessment/Plan 1. Right knee DJD s/p Right Total Knee Arthroplasty: Continue current post op course PT/OT WBAT Polar care to knee Warfarin/PCS for VTE Pain control Encouraged IS Bowel regimen D/C planning today, if cleared by therapy 3. Gait instability: fall precautions, PT/OT Present on admission: Anxiety: asymptomatic, continue to monitor Hyperlipidemia: Atorvastatin Asthma: asymptomatic, continue GERD: asymptomatic, continue to monitor Care plan discussed with the patient. Yanelis Romero NP Orthopedics/Anesthesia [facility] [phone] Surgical Home-orthopedics Cosigned by Adrien Camejo MD at 08/25/2023 2:59 PM CDT documented in this encounter H&P Notes * Adrien Camejo MD - 08/24/2023 9:52 AM CDT No changes to history and physical from the [facility]. BP 110/54 Pulse 89 Temp 37.7 ??C (99.8 ??F) (Temporal) Resp 20 Ht 152.4 cm (5') Wt 58.8 kg (129 lb 10.1 oz) SpO2 97% BMI 25.32 kg/m?? The patient has had extensive conservative treatments that are no longer effective. The disability from the osteoarthritis has left the patient with a significant impairment of the ability to maintain an active lifestyle and ability to stay fit. I have discussed the surgery with the patient. I have discussed the alternative non surgical options. I have discussed the incisions and procedure in detail. The patient has undergone extensive preoperative education and has had advice about nutritional and health optimization. I have discussed themajor risks and complications of the procedure including but not limited to that of anesthesia, infection, mechanical complications of orthopedic prostheses, damage to nerves, arteries, veins, tendons and muscles, deep venous thrombosis, pulmonary embolism and . The patient has had time for discussion and questions and wishes to proceed. Source Note - Parish Hoyos MD - 08/06/2023 10:47 [...] (LIPITOR) 20 mg tablet -- -- -- ProviderReynaldo MD calcium carbonate-vitamin D3 (CALTRATE 600 + [...] 4 % gel -- -- -- Reynaldo Antonio MD sodium chloride (OCEAN) 0.65 % nasal spray -- -- -- Reynaldo Antonio MD warfarin (COUMADIN) 2 mg tablet -- -- -- ProviderReynaldo MD -- Patient not taking: -- Patient [...] Problem Relation Age of Onset Other Father [place] age 50, CABG; Heart attack Father Arthritis [...] during recovery from upcoming surgery. Going to [place] 3 times a week for swimming Labs [...] S/P SAVR with [address] Skip Cardale prosthesis. Peak Velocity 1.70 m/s. Mean gradient [...] Medication protocol when under care of a STOCK UNLOADER Planned anesthesia: Spinal, PNB - single shot and regional for postop pain per surgeon request Lower extremity: saphenous nerve block - subsartorial approach Postoperative Plan: Postoperative administration opioids intended. No postoperative mechanical ventilation intended. Patient's planned disposition post procedure is Floor. Informed Consent: Discussed plan with STOCK UNLOADER. Anesthesia plan and risks discussed with patient. [...] All questions answered. documented in this encounter Miscellaneous Notes * Plan of Care - Berta Miller RN - 08/25/2023 1:58 PM CDT DISPO: home with spouse and Outpt P.T. * Plan of Care - Berta Miller RN - 08/25/2023 7:26 AM CDT 08/25/23 0725 Discharge Summary Discharge Disposition Private residence Equipment/Provider Needs No Home Needs Identified Anticipated discharge level of care Private residence Actual Discharge Level of Care Private residence Does Actual Level of Care Match Care Team Recommendation? Yes Post Acute Care Plan OP Services Yes Type of Service Therapy Type of Therapy Physical Therapy Location [place] Discharge Additional Assistance Does the patient need discharge transport arranged? No (spouse will transport pt. at discharge.) * Plan of Care - Urszula Grover RN - 08/24/2023 6:02 PM CDT Problem: Fall Risk Goal: Ability to state ways to decrease the risk of falls will improve Outcome: Progressing Goal: Will remain free from falls Outcome: Progressing Goal: Will remain free from injury from falls Outcome: Progressing Goals: Clinical Goals for the Shift: orient to the unit, vss, pain control Summary: VSS. RA. Passed check void. Up with a gb/walker. Call light within reach. * Op Note - Adrien Camejo MD - 08/24/2023 11:45 AM CDT Operative Note Name: Yessy Donaldson : 1955 AGE: 68 y.o. DATE: 08/24/2023 PREOPERATIVE DIAGNOSIS: Degenerative arthritis of the right knee. POST OPERATIVE DIAGNOSIS: Degenerative arthritis of the right knee. PROCEDURE: Right total knee arthroplasty using a Biomet 60 mm ingrowth Vanguard femoral component with a 63 mmstem cemented tibial component and a 10 mm E-poly polyethylene spacer. Right knee patelloplasty Implant Name Type Inv. Item Serial No. Paper Tube Machine Operator Lot No. [id number] No. Used Action [employer] Simplex P Radiopaque Full Dose Cement Bone Sterile 6191-1-010 - [id number] [employer] Simplex P Radiopaque Full Dose Cement Bone Sterile 6191-1-010 [employer] [id number] Right 1 Implanted [employer] Ascent Maxim 63mm 1 Piece Cruciate Fin Knee Tray Tibial Interlok [id number] - [id number] [employer] Ascent Maxim 63mm 1 Piece Cruciate Fin Knee Tray Tibial Interlok [id number] [employer] [id number] Right 1 Implanted [employer] Vanguard 60mm Cruciate Retaining Knee Right Component Femoral [id number] - [id number] [employer] Vanguard 60mm Cruciate Retaining Knee Right Component Femoral [id number] [employer] [id number] Right 1 Implanted [employer] BEARING 63/[id number] VANGUARD ARCOM KNEE CRUCIATE RETAIN DIRECT [id number] - [id number] [employer] BEARING [id number] VANGUARD ARCOM KNEE CRUCIATE RETAIN DIRECT [id number] [employer] [id number] Right 1 Implanted ANESTHESIA: Spinal anesthesia and adductor canal block SURGEON: Adrien Camejo MD BROKER ASSOCIATE: Ward Aide: Steve Ramos RN Ward Aide Relief: Mary Franz RN Scrub Relief: Bernie Jacobson ST Scrub: Yvonne Michelle ST EDUCATION TEACHER: Blanquita Nino NP; Amanuel Parry RN .................................................. PROCEDURE The patient was brought to the operating room, was set up on the operating table and a spinal anesthetic was performed. She was then placed back into the supine position. An adductor canal nerve block had been performed in the preoperative holding area. A tourniquet was placed high on the patient'sright thigh and the right lower extremity was sterilely prepped and draped. A Romel bandage was use d to exsanguinate the left lower extremity. The tourniquet was inflated to 300 mmHg. Total tourniquet time for the case was 40 minutes. A straight anterior incision was made and carried down through the subcutaneous tissue. The medial parapatellar arthrotomy was carried out. The proximal medial tibia was subperiosteally exposed. The medial meniscus, lateral meniscus and anterior cruciate ligamentwere excised. Osteophytes were removed from the distal femur and proximal tibia. Examination of thepatella was showed that it tracked well, there were some areas of patellar cartilage loss but no complete eburnated bone area. Given the patient's age, patella findings and overall situation, she was felt to be a candidate for patella plasty and a patellar resurfacing. As such a rongeur was utilized to remove all patella osteophytes circumferentially. The lateral facet was beveled as needed. The final construct tracked well. The intramedullary drill was used to drill drill holes in the distal femur and proximal tibia. The intramedullary guide was put into position. The jig was set at 5 degrees of valgus angle. Distal femoral cutting jig was put into position. Distal femoral cutting guide was pinned, the distal femoral cuts were made with the oscillating saw. The posterior referencing guide was put into place and the 60 mm component appeared appropriate. The 60 mm anterior posterior and chamfer cutting guide block was put into position and pinned with drill bits. The anterior and posterior cuts were made as well as the chamfer cuts. Our attention was directed to the proximal tibia. The intramedullary mercedes was placed into the tibia and the cutting guide was set to take 4 mm of bone off the medial compartment. Tibial cutting guide was pinned, the tibial cut was made. Flexion-extension gaps were measured and the 10 mm spacer appeared appropriate. The proximal tibia was sized and the 63 mm component appeared appropriate. The 60 mm femoral component and the 63 mm trial tibial component were put into position as well as a 10 mm trial tibial spacer. The alignment of the tibial traywas marked with the Bovie cautery. Drill holes were drilled through the distal femoral trial. Femoral and tibial trials were removed. The proximal tibia was prepared for the stem portion of the component by putting the template into position and using the tower guide and punch for the stem portion of the component. The proximal tibia was irrigated. One batch of Simplex cement was vacuum mixed with 1.5 g of Zinacef. The cement was pressurized into the proximal tibia and the 63 mm stem cemented tibial component was cemented into position. The ingrowth 60 mm femoral component was impacted into position and the 10 mm trial tibial spacer was put into place. The knee was brought through range of m otion and found to be stable. AP and lateral x-rays were taken which revealed the components to be in excellent position. At this point, the tourniquet was released. Hemostasis was obtained with the Bovie cautery. Total tourniquet time for the case was at 40 minutes. The knee was irrigated with irrigation solution made up of 30 mL of 5% Betadine solution mixed in 400 mL of normal saline and then placed into the operative site and let sit for 3 minutes. The Betadine solution was then suctioned from the wound and the wound and operative site was irrigated with 1 L of irrigation solution. At this point, the trial tibial spacer was removed and the 10 mm polyethylene spacer was put into place and locked with a locking clip. The knee was irrigated with irrigation solution. The medial parapatellar arthrotomy was repaired with interrupted #1 Vicryl suture in a [id number] fashion. The subcutaneous tissue was closed with 1 layer of 2-0 Vicryl suture and 1 layer of 2-0 Monocryl suture and the skin was closed with a running 4-0 Monocryl stitch and Dermabond glue. The wound was covered witha Telfa pad, 4x4s and Tegaderm. Sterile Webril was then placed around the left knee and 2 six-inch Donovan wraps from toe to groin. A Polar Care pad was applied. The knee was placed in a knee immobilizer. SPECIMENS REMOVED Arthritic bone from the right knee. DRAINS None. CATHETERS None. FLUIDS 500 mL crystalloid. ESTIMATED BLOOD LOSS 75 mL SPONGE AND INSTRUMENT COUNT Correct. Patient tolerated the procedure well and was taken to recovery in stable condition. Adrien Camejo MD 08/24/2023 1:43 PM documented in this encounter Plan of Treatment Not on file documented as of this encounter Procedures Procedure Name Priority Date/Time Associated Diagnosis Comments EGFR Routine 08/25/2023 5:41 AM CDT APTT STAT 08/25/2023 5:41 AM CDT PROTIME-INR Routine 08/25/2023 5:41 AM CDT CBC WITHOUT DIFFERENTIAL Routine 08/25/2023 5:41 AM CDT BASIC METABOLIC PANEL Routine 08/25/2023 5:41 AM CDT ARTHROPLASTY TOTAL KNEE 08/24/2023 11:08 AM CDT Primary osteoarthritis of right knee PROTIME-INR STAT 08/24/2023 8:41 AM CDT documented in this encounter Results * eGFR (08/25/2023 5:41 AM CDT) [facility] eGFR >90 >=60 mL/min/1. 73 m2 Comment: Interpretive Data Reference Interval Normal ?>/= 90 mL/min/1.73m2 Mildly decreased* ? 60 - 89 mL/min/1.73m2 Mildly to moderately decreased ?45 - 59 mL/min/1.73m2 Moderately to severely decreased ??30 - 44 mL/min/1.73m2 Severely decreased ?15 - 29 mL/min/1.73m2 Kidney Failure ?< 15 ??mL/min/1.73m2 *Relative to young adult level Estimated glomerular filtration rate is determined by the 2020 CKD-EPI equation recommended by the National Kidney Foundation (A Unifying Approach to GFR Estimation: Recommendations of the [employer]F-ASK Task Force on Reassessing the Inclusion of Race in Diagnosing Kidney Disease, JASN 2020). The CKD-EPI equation should not be used for patients with unstable renal function and has not been validated in children and those over 70. Current interpretive data was last reviewed 2021. Blood 08/25/2023 5:41 AM CDT 08/25/2023 5:56 AM CDT Adrien Camejo MD LAB BLOOD ORDERABLES Final R esult Performing Organization Address [facility] de Phone Number [facility] [address] [place] [address] * Protime-INR (08/25/2023 5:41 AM CDT) PT 12.7 10.3 - 13.7 sec INR 1.11 0.90 - 1.20 [facility] Comment: Interpretive data Oral anticoagulant therapeutic ranges: Venous thromboembolism prophylaxis or treatment: 2.0-3.0 CARDIOLOGY Standard range: 2.0-3.0 High-intensity range: 2.5-3.5 Refer to indication-specific guidelines for appropriate target ranges for prosthetic heart valve replacement. Current interpretive data was last revised on 2019. Blood 08/25/2023 5:41 AM CDT 08/25/2023 5:56 AM CDT Adrien Camejo MD LAB BLOOD ORDERABLES Final R esult Performing Organization Address [facility] Co de Phone Number [facility] [address] Department [place] [address] * (ABNORMAL) CBC without differential (08/25/2023 5:41 AM CDT) [facility] WBC 7.0 3.8 - 9.9 K/cumm Hgb 10.4(L) 11.9 - 15.5 g/dL [facility] Hct 32.9(L) 35.6 - 45.5 % [facility] Plt 148(L) 150 - 400 K/cumm [facility] MPV 10.7 9.1 - 12.3 fL [facility] RBC 3.35(L) 3.90 - 5.20 M/cumm [facility] MCV 98.2(H) 81.3 - 96.4 fL [facility] MCH 31.0 27.1 - 33.3 pg [facility] MCHC 31.6(L) 32.3 - 35.7 g/dL [facility] RDW CV 13.2 11.1 - 14.9 % [facility] RDW SD 47.6 35.7 - 48.1 fL [facility] NRBC abs 0.00 0.00 - 0.01 K/cumm [facility] Blood 08/25/2023 5:41 AM CDT 08/25/2023 5:56 AM CDT Adrien Camejo MD LAB BLOOD ORDERABLES Final R esult [facility] [address] Department [place] [address] * (ABNORMAL) Basic metabolic panel (08/25/2023 5:41 AM CDT) [facility] Sodium 141 135 - 145 mmol/L Potassium, pl 4.4 3.3 - 4.9 mmol/L [facility] Chloride 107 97 - 110 mmol/L [facility] CO2 26 22 - 32 mmol/L [facility] Anion gap 8 2 - 15 mmol/L [facility] BUN 15 6 - 25 mg/dL [facility] Creatinine 0.47(L) 0.60 - 1.10 mg/dL [facility] Glucose 89 70 - 199 mg/dL [facility] Comment: Interpretive Data Fasting glucose >/= 126 mg/dl is diagnostic for diabetes. ?? Fasting is defined as no caloric intake for at least 8 hours. Fasting glucose between 100 mg/dl to 125 mg/dl is diagnostic of prediabetes. In a patient with classic symptoms of hyperglycemia or hyperglycemic crisis, a random glucose >/= 200 mg/dl is diagnostic for diabetes. In the absence of unequivocal hyperglycemia, results should be confirmed by repeat testing. The classification and Diagnosis of Diabetes Diabetes Care 2021; 46: S19-S40. Current interpretive data was last revised 2022. Calcium 8.8 8.5 - 10.3 mg/dL [facility] Blood 08/25/2023 5:41 AM CDT 08/25/2023 5:56 AM CDT Adrien Camejo MD LAB BLOOD ORDERABLES Final R esult Performing Organization Address [facility]/ZIP Co de Phone Number [facility] [address] [place] [address] * aPTT (08/25/2023 5:41 AM CDT) [facility] Signature aPTT 32 28 - 38 sec Comment: Interpretive Data Heparin therapeutic range: 66.0 - 100.0 seconds. Range based on correlation with therapeutic heparin activity range of 0.3 - 0.7 Units/mL. Current interpretive data was last revised on 2023. Blood 08/25/2023 5:41 AM CDT 08/25/2023 5:56 AM CDT Narrative [facility] - 08/25/2023 6:16 AM CDT Baseline prior to warfarin initiation. Adrien Camejo MD LAB BLOOD ORDERABLES Final R esult Performing Organization Address City/[facility]/ZIP Co de Phone Number [facility] [address] [place] [place] [address] * Protime-INR (08/24/2023 8:41 AM CDT) PT 12.2 10.3 - 13.7 sec INR 1.07 0.90 - 1.20 [facility] Comment: Interpretive data Oral anticoagulant therapeutic ranges: Venous thromboembolism prophylaxis or treatment: 2.0-3.0 CARDIOLOGY Standard range: 2.0-3.0 High-intensity range: 2.5-3.5 Refer to indication-specific guidelines for appropriate target ranges for prosthetic heart valve replacement. Current interpretive data was last revised on 2019. Blood 08/24/2023 8:41 AM CDT 08/24/2023 8:43 AM CDT us Chel Zurita NP LAB BLOOD ORDERABLES Antonina hernandez Result [facility] [address] Department [place] [address] documented in this encounter Visit Diagnoses Diagnosis Osteoarthritis of knee- Primary Osteoarthrosis, unspecified whether generalized or localized, lower leg Arthritis of right knee documented in this encounter Admitting Diagnoses Diagnosis Osteoarthritis of knee Osteoarthrosis, unspecified whether generalized or localized, lower leg Arthritis of right knee documented in this encounter Administered Medications Inactive Administered Medications - up to 3 most recent administrations Medication Order MAR Action Action Date Dose Rate Site acetaminophen (TYLENOL) tablet 1,000 mg 1,000 mg, oral, Once, On Thu08/24/23 at 0900, For 1 dose, Pre-Op, Indications: Pre-Emptive AnalgesiaIndications:Pre-Emptive Analgesia Given 08/24/2023 8:45 AM CDT 1,000 mg albumin 5 % bottle - ADS Override Pull Starting on Thu08/24/23 at 1405, For 1 dose, Created by cabinet override albumin 5 % bottle 12.5 g 12.5 g, intravenous, Once, On Thu08/24/23 at 1445, For 1 dose, Phase I, Infusion rate depends on indication and clinical situation. Suggested initial rate - 120 mL/hr. In patients with normal plasma volume, do not exceed 2 mL/minute, Indications: hypotensiveIndications:hypotensi ve Given 08/24/2023 2:10 PM CDT 12.5 g albumin 5 % bottle 12.5 g 12.5 g, intravenous, Once, On Thu08/24/23 at 1545, For 1 dose, Phase I, Infusion rate depends on indication and clinical situation. Suggested initial rate - 120 mL/hr. In patients with normal plasma volume, do not exceed 2 mL/minute, Indications: hypotensionIndications:hypotensi on Given 08/24/2023 3:17 PM CDT 12.5 g ascorbic acid (VITAMIN C) tablet/chewable tablet 500 mg 500 mg, oral, Daily, First dose on Thu08/25/23 at 0900, Indications: Vitamin deficiency preventionIndications:Vitamin deficiency prevention Given 08/25/2023 7:40 AM CDT 500 mg calcium carbonate (TUMS) chewable tablet 1,000 mg 1,000 mg (400 mg of elemental calcium), oral, 2 times daily, First dose on Thu08/24/23 at 2100, Indications: Hypocalcemia PreventionIndications:Hypocalcem ia Prevention Given 08/25/2023 7:39 AM CDT 1,000 mg Given 08/24/2023 9:53 PM CDT 1,000 mg ceFAZolin (ANCEF) 1 gram/10 mL in sterile water (premix) 1,000 mg 1,000 mg, intravenous, at 200 mL/hr, Administer over 3 Minutes, Every 8 hours, First dose on Thu08/24/23 at 1930, For 2 doses, Beginning 8 hours after last candy-operative dose., Indications: Prophylaxis, SurgicalIndications:Prophylaxis, Surgical Given 08/25/2023 2:56 AM CDT 1,000 mg 200 mL/hr Given 08/24/2023 6:30 PM CDT 1,000 mg 200 mL/hr dexAMETHasone (DECADRON) 4 mg/mL injection 4 mg 4 mg, intravenous, Administer over 2 Minutes, Every 8 hours, First dose on Thu08/24/23 at 1815, For 3 doses, Indications: Pain Treatment AdjunctIndications:Pain Treatment Adjunct Given 08/25/2023 9:49 AM CDT 4 mg Given 08/25/2023 2:56 AM CDT 4 mg dimenhyDRINATE (DRAMAMINE) tablet 25 mg 25 mg, oral, Once, On Thu08/24/23 at 0900, For 1 dose, Pre-Op, Indications: Prevention of Nausea and VomitingIndications:Prevention of Nausea and Vomiting Given 08/24/2023 8:45 AM CDT 25 mg docusate sodium (COLACE) capsule 100 mg 100 mg, oral, 2 times daily, First dose on Thu08/24/23 at 2100, Hold for diarrhea, Indications: constipationIndications:constipation Given 08/25/2023 7:40 AM CDT 100 mg Given 08/24/2023 9:53 PM CDT 100 mg gabapentin (NEURONTIN) capsule 300 mg 300 mg, oral, 3 times daily PRN, pain, Starting on Thu08/24/23 at 1734 Given 08/25/2023 3:16 AM CDT 300 mg Given 08/24/2023 10:22 PM CDT 300 mg HYDROcodone-acetaminophen (NORCO) 5-325 mg per tablet 1 tablet 1 tablet, oral, Every 4 hours PRN, 1st line for pain, Starting on Thu08/24/23 at 1734, Indications: PainIndications:Pain Given 08/25/2023 7:39 AM CDT 1 tablet HYDROcodone-acetaminophen (NORCO) 5-325 mg per tablet 1 tablet 1 tablet, oral, Every 4 hours PRN, 3rd line for pain, Starting on Thu08/24/23 at 1734, Indications: PainIndications:Pain Given 08/25/2023 3:17 AM CDT 1 tablet Given 08/24/2023 10:22 PM CDT 1 tablet Given 08/24/2023 6:27 PM CDT 1 tablet Lactated Ringer's (LR) bolus 200 mL 200 mL, intravenous, Once, On Thu08/24/23 at 1445, For 1 dose, Phase I Rate/Dose Change 08/24/2023 2:10 PM CDT Lactated Ringer's (LR) bolus 500 mL 500 mL, intravenous, Once, On Thu08/24/23 at 1530, For 1 dose, Phase I New Bag 08/24/2023 2:49 PM CDT 500 mL Lactated Ringer's (LR) infusion 30 mL/hr, intravenous, Continuous, Starting on Thu08/24/23 at 0900, Pre-Op Rate/Dose Verify 08/24/2023 11:09 AM CDT 30 mL/hr New Bag 08/24/2023 8:45 AM CDT 30 mL/hr 30 mL/hr Lactated Ringer's (LR) infusion 100 mL/hr, intravenous, Continuous, Starting on Thu08/24/23 at 1815, Phase I & Post-op Floor New Bag 08/24/2023 5:43 PM CDT 100 mL/hr 100 mL/hr latanoprost (XALATAN) 0.005 % ophthalmic solution 1 drop 1 drop, each eye, Nightly, First dose on Thu08/24/23 at 2100 Given 08/24/2023 9:53 PM CDT 1 drop magnesium oxide (MAG-OX) tablet 400 mg 400 mg, oral, Nightly, First dose on Thu08/24/23 at 2100, 1 tablet = Magnesium oxide 400 mg = 241.3 mg elemental magnesium, Indications: hypomagnesemiaIndications:hypoma gnesemia Given 08/24/2023 9:53 PM CDT 400 mg oxyCODONE (ROXICODONE) tablet 5 mg 5 mg, oral, Every 4 hours PRN, 1st line for pain, Starting on Thu08/24/23 at 1734, May repeat in 1 hour if pain is uncontrolled or increasing. Max 2 doses within 1 dosing interval., Indications: PainIndications:Pain Given 08/25/2023 12:04 PM CDT 5 mg peg 400-propylene glycol (SYSTANE) 0.4-0.3 % ophthalmic solution 1 drop 1 drop, each eye, 3 times daily PRN, dry eyes, Starting on Thu08/24/23 at 1749 phenylephrine (JESSICA-SYNEPHRINE) 1 mg/10 mL (100 mcg/mL) in sodium chloride 0.9% (premix) - ADS Override Pull Starting on Thu08/24/23 at 0957, For 1 dose, Created by cabinet override For IV push, administer over 30 seconds. phenylephrine (JESSICA-SYNEPHRINE) 1 mg/10 mL (100 mcg/mL) in sodium chloride 0.9% (premix) 100 mcg 100 mcg, intravenous, Once, On Thu08/24/23 at 1045, For 1 dose, Pre-Op, For IV push, administer over 30 seconds. Given 08/24/2023 10:01 AM CDT 100 mcg phenylephrine (JESSICA-SYNEPHRINE) 1 mg/10 mL (100 mcg/mL) in sodium chloride 0.9% (premix) 100 mcg 100 mcg, intravenous, Once, On Thu08/24/23 at 1045, For 1 dose, Pre-Op, For IV push, administer over 30 seconds. Given 08/24/2023 10:08 AM CDT 100 mcg phenylephrine (JESSICA-SYNEPHRINE) 1 mg/10 mL (100 mcg/mL) in sodium chloride 0.9% (premix) 100 mcg 100 mcg, intravenous, Once, On Thu08/24/23 at 1100, For 1 dose, Pre-Op, For IV push, administer over 30 seconds. Given 08/24/2023 10:24 AM CDT 100 mcg sodium chloride 0.9% flush 0.5-20 mL 0.5-20 mL, intra-catheter, Every 8 hours scheduled, First dose on Thu08/24/23 at 2200, Flush volume based on line type and size. , Indications: FlushingIndications:Flushing Given 08/25/2023 5:19 AM CDT 10 mL Given 08/24/2023 9:57 PM CDT 10 mL sodium chloride 0.9% flush 0.5-20 mL 0.5-20 mL, intra-catheter, Every 8 hours scheduled, First dose on Thu08/24/23 at 2200, Flush volume based on line type and size. , Indications: FlushingIndications:Flushing Given 08/25/2023 5:19 AM CDT 10 mL Given 08/24/2023 9:56 PM CDT 10 mL vancomycin 1,000 mg/200 mL in dextrose 5% (premix) 1,000 mg 1,000 mg, intravenous, Administer over 60 Minutes, Once, On Thu08/24/23 at 0900, For 1 dose, Pre-Op, Administer within 120 minutes of incision., Indications: Prophylaxis, SurgicalIndications:Prophylaxis, Surgical New Bag 08/24/2023 9:14 AM CDT 1,000 mg vancomycin 1,000 mg/200 mL in dextrose 5% (premix) 1,000 mg 1,000 mg, intravenous, Administer over 60 Minutes, Once, On Thu08/24/23 at 2100, For 1 dose, Administer 12 hours after pre-procedure dose., Indications: Prophylaxis, SurgicalIndications:Prophylaxis, Surgical New Bag 08/24/2023 9:53 PM CDT 1,000 mg Left Hand warfarin (COUMADIN) tablet 5 mg 5 mg, oral, Once (for warfarin), On Thu08/24/23 at 1815, For 1 dose, Target INR: 2 - 3, Indications: Mechanical Valve Thromboembolism Prophylaxis, VTE ProphylaxisIndications:Mechanical Valve Thromboembolism Prophylaxis,VTE Prophylaxis Given 08/24/2023 6:26 PM CDT 5 mg documented in this encounter Discontinued Medications Medication Sig Discontinue Reason Start Date End Da te meloxicam (MOBIC) 15 mg tablet Take 1 tablet (15 mg total) by mouth daily Stop Taking at Discharge 08/24/2023 08/25/2023 documented as of this encounter Active and Recently Administered Medications Times are shown in CDT. Scheduled Medication Order 08/23/2023 08/24/2023 08/25/2023 acetaminophen (TYLENOL) tablet 1,000 mg (COMPLETED) 1,000 mg, oral, Once, On Thu08/24/23 at 0900, For 1 dose, Pre-Op, Indications: Pre-Emptive Analgesia 0845 (Given - Provider: Oralia Pete, BHAVANA) albumin 5 % bottle 12.5 g (COMPLETED) 12.5 g, intravenous, Once, On Thu08/24/23 at 1445, For 1 dose, Phase I, Infusion rate depends on indication and clinical situation. Suggested initial rate - 120 mL/hr. In patients with normal plasma volume, do not exceed 2 mL/minute, Indications: hypotensive 1410 (Given - Provider: Li Duarte RN) albumin 5 % bottle 12.5 g (COMPLETED) 12.5 g, intravenous, Once, On Thu08/24/23 at 1545, For 1 dose, Phase I, Infusion rate depends on indication and clinical situation. Suggested initial rate - 120 mL/hr. In patients with normal plasma volume, do not exceed 2 mL/minute, Indications: hypotension 1517 (Given - Provider: Connie Pruett RN) ascorbic acid (VITAMIN C) tablet/chewable tablet 500 mg 500 mg, oral, Daily, First dose on Thu08/25/23 at 0900, Indications: Vitamin deficiency prevention 0740 (Given - Provid er: Kalpana Andre RN) calcium carbonate (TUMS) chewable tablet 1,000 mg 1,000 mg (400 mg of elemental calcium), oral, 2 times daily, First dose on Thu08/24/23 at 2100, Indications: Hypocalcemia Prevention 2152 (Given - Provider: Faisal Middleton) 0739 (Given - Provider: Kalpana Andre, BHAVANA) ceFAZolin (ANCEF) 1 gram/10 mL in sterile water (premix) 1,000 mg (COMPLETED) 1,000 mg, intravenous, at 200 mL/hr, Administer over 3 Minutes, Every 8 hours, First dose on Thu08/24/23 at 1930, For 2 doses, Beginning 8 hours after last candy-operative dose., Indications: Prophylaxis, Surgical 1830 (Given - Provider: Urszula Grover RN) 025 (Given - Provider: Faisal Middleton) ceFAZolin (ANCEF) 2,000 mg/20 mL in sterile water (premix) 2,000 mg (COMPLETED) 2,000 mg, intravenous, at 400 mL/hr, Administer over 3 Minutes, Once, On Thu08/24/23 at 0900, For 1 dose, Pre-Op, Administer within 60 minutes of incision., Indications: Prophylaxis, Surgical 1125 (Given - Provider: Lindsey Marion CRNA) dexAMETHasone (DECADRON) 4 mg/mL injection 4 mg 4 mg, intravenous, Administer over 2 Minutes, Every 8 hours, First dose on Thu08/24/23 at 1815, For 3 doses, Indications: Pain Treatment Adjunct 1744 (Not Given - Provider: Urszula Grover RN - Reason: Other) 025 (Given - Provider: Faisal Middleton)0949 (Given - Provider: Kalpana Andre, BHAVANA) dimenhyDRINATE (DRAMAMINE) tablet 25 mg (COMPLETED) 25 mg, oral, Once, On Thu08/24/23 at 0900, For 1 dose, Pre-Op, Indications: Prevention of Nausea and Vomiting 0845 (Given - Provider: Oralia Pete RN) docusate sodium (COLACE) capsule 100 mg 100 mg, oral, 2 times daily, First dose on Thu08/24/23 at 2100, Hold for diarrhea, Indications: constipation 2152 (Given - Provider: Faisal Middleton) 0740 (Given - Provider: Kalpana Andre, BHAVANA) Lactated Ringer's (LR) bolus 200 mL (CANCELED) 200 mL, intravenous, Once, On Thu08/24/23 at 1445, For 1 dose, Phase I 1410 (Rate/Dose Change - Provider: Li Duarte, BHAVANA)1445 (Due) Lactated Ringer's (LR) bolus 500 mL (COMPLETED) 500 mL, intravenous, Once, On Thu08/24/23 at 1530, For 1 dose, Phase I 1449 (New Bag - Provider: Li Duatre, RN) latanoprost (XALATAN) 0.005 % ophthalmic solution 1 drop 1 drop, each eye, Nightly, First dose on Thu08/24/23 at 2100 215 (Given - Provider: Faisal Middleton) magnesium oxide (MAG-OX) tablet 400 mg 400 mg, oral, Nightly, First dose on Thu08/24/23 at 2100, 1 tablet = Magnesium oxide 400 mg = 241.3 mg elemental magnesium, Indications: hypomagnesemia 2152 (Given - Provider: Faisal Middleton) phenylephrine (JESSICA-SYNEPHRINE) 1 mg/10 mL (100 mcg/mL) in sodium chloride 0.9% (premix) 100 mcg (COMPLETED) 100 mcg, intravenous, Once, On Thu08/24/23 at 1045, For 1 dose, Pre-Op, For IV push, administer over 30 seconds. 1001 (Given - Provider: Oralia Pete RN) phenylephrine (JESSICA-SYNEPHRINE) 1 mg/10 mL (100 mcg/mL) in sodium chloride 0.9% (premix) 100 mcg (COMPLETED) 100 mcg, intravenous, Once, On Thu08/24/23 at 1045, For 1 dose, Pre-Op, For IV push, administer over 30 seconds. 1008 (Given - Provider: Oralia Pete RN) phenylephrine (JESSICA-SYNEPHRINE) 1 mg/10 mL (100 mcg/mL) in sodium chloride 0.9% (premix) 100 mcg (COMPLETED) 100 mcg, intravenous, Once, On Thu08/24/23 at 1100, For 1 dose, Pre-Op, For IV push, administer over 30 seconds. 1024 (Given - Provider: Oralia Pete RN) sodium chloride 0.9% flush 0.5-20 mL 0.5-20 mL, intra-catheter, Every 8 hours scheduled, First dose on Thu08/24/23 at 2200, Flush volume based on line type and size. , Indications: Flushing 215 (Given - Provider: Faisal Middleton) 0519 (Given - Provider: Faisal Middleton)1400 (Due) sodium chloride 0.9% flush 0.5-20 mL (CANCELED) 0.5-20 mL, intra-catheter, Every 8 hours scheduled, First dose on Thu08/24/23 at 2200, Flush volume based on line type and size. , Indications: Flushing 2155 (Given - Provider: Faisal Middleton) 0519 (Given - Provider: Faisal Middleton) vancomycin 1,000 mg/200 mL in dextrose 5% (premix) 1,000 mg (COMPLETED) 1,000 mg, intravenous, Administer over 60 Minutes, Once, On Thu08/24/23 at 0900, For 1 dose, Pre-Op, Administer within 120 minutes of incision., Indications: Prophylaxis, Surgical 913 (New Bag - Provider: Oralia Pete RN) vancomycin 1,000 mg/200 mL in dextrose 5% (premix) 1,000 mg (COMPLETED) 1,000 mg, intravenous, Administer over 60 Minutes, Once, On Thu08/24/23 at 2100, For 1 dose, Administer 12 hours after pre-procedure dose., Indications: Prophylaxis, Surgical 2152 (New Bag - Provider: Faisal Middleton) warfarin (COUMADIN) tablet 5 mg (COMPLETED) 5 mg, oral, Once (for warfarin), On Thu08/24/23 at 1815, For 1 dose, Target INR: 2 - 3, Indications: Mechanical Valve Thromboembolism Prophylaxis, VTE Prophylaxis 1825 (Given - Provider: Urszula Grover RN) Continuous Medication Order 08/23/2023 08/24/2023 08/25/2023 Lactated Ringer's (LR) infusion (CANCELED) 30 mL/hr, intravenous, Continuous, Starting on Thu08/24/23 at 0900, Pre-Op 0845 (New Bag - Provider: Oralia Pete RN)1109 (Rate/Dose Verify - Provider: Yasmany Crowe CRNA)1743 (Stopped - Provider: Urszula Grover RN) Lactated Ringer's (LR) infusion 100 mL/hr, intravenous, Continuous, Starting on Thu08/24/23 at 1815, Phase I & Post-op Floor 1743 (New Bag - Provider: Urszula Grover RN) 1805 (Due: Stopped) PRN Medication Order 08/23/2023 08/24/2023 08/25/2023 albuterol HFA (PROVENTIL HFA,VENTOLIN HFA,PROAIR HFA) 90 mcg/actuation inhaler 2 puff 2 puff, inhalation, Every 4 hours 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), wheezing, Starting on Thu08/24/23 at 1737 aluminum-magnesium hydroxide-simethicone (MAALOX) 40-40-4 mg/mL oral suspension 30 mL 30 mL, oral, Every 4 hours PRN, indigestion, heartburn, Starting on Thu08/24/23 at 1734, Indications: Heartburn BUPivacaine-EPINEPHrine (MARCAINE w/EPI) 47 mL, morphine 5 mg, cloNIDine (DURACLON) 150 mcg, ketorolac (TORADOL) 30 mg solution (CANCELED) As needed, Starting on Thu08/24/23 at 1224, Intra-Op 1224 (Given - Provider: Adrien Camejo MD) cefuroxime (ZINACEF) injection (CANCELED) As needed, Starting on Thu08/24/23 at 1220, Intra-Op 1220 (Given - Provider: Adrien Camejo MD - Comment: Mixed with bone cement) gabapentin (NEURONTIN) capsule 300 mg 300 mg, oral, 3 times daily PRN, pain, Starting on Thu08/24/23 at 1734 2222 (Given - Provider: Faisal Middleton) 0316 (Given - Provider: Faisal Middleton) HYDROcodone-acetaminophen (NORCO) 5-325 mg per tablet 1 tablet 1 tablet, oral, Every 4 hours PRN, 1st line for pain, Starting on Thu08/24/23 at 1734, Indications: Pain 1831 (Not Given - Provider: Urszula Grover RN - Reason: Other - Comment: see other administration) 0322 (Not Given - Provider: Faisal Middleton - Reason: Other - Comment: given, duplicate)0739 (Given - Provider: Kalpana Andre RN) HYDROcodone-acetaminophen (NORCO) 5-325 mg per tablet 1 tablet 1 tablet, oral, Every 4 hours PRN, 3rd line for pain, Starting on Thu08/24/23 at 1734, Indications: Pain 1827 (Given - Provider: Urszula Grover RN)2222 (Given - Provider: Faisal Middleton) 0317 (Given - Provider: Faisal Middleton) HYDROmorphone (PF) (DILAUDID) injection 0.2 mg 0.2 mg, intravenous, Administer over 2 Minutes, Every 4 hours PRN, 2nd line for pain, Starting on Thu08/24/23 at 1734, May administer 1 hour after second dose of 1st line analgesic agent for uncontrolled or increasing pain., Indications: Pain ondansetron (ZOFRAN) injection 4 mg 4 mg, intravenous, Administer over 2 Minutes, Every 6 hours PRN, nausea, vomiting, Starting on Thu08/24/23 at 1734, Proceed to prochlorperazine if no relief within 30 minutes. , Indications: Nausea and Vomiting oxyCODONE (ROXICODONE) tablet 5 mg 5 mg, oral, Every 4 hours PRN, 1st line for pain, Starting on Thu08/24/23 at 1734, May repeat in 1 hour if pain is uncontrolled or increasing. Max 2 doses within 1 dosing interval., Indications: Pain 1204 (Given - Provider: Kalpana Andre RN) peg 400-propylene glycol (SYSTANE) 0.4-0.3 % ophthalmic solution 1 drop 1 drop, each eye, 3 times daily PRN, dry eyes, Starting on Thu08/24/23 at 1749 prochlorperazine (COMPAZINE) injection 10 mg 10 mg, intravenous, Administer over 2 Minutes, Every 6 hours PRN, nausea, vomiting, Starting on Thu08/24/23 at 1734, If not relieved by ondansetron within 30 minutes., Indications: Nausea and Vomiting sodium chloride 0.9% flush 0.5-20 mL 0.5-20 mL, intra-catheter, As needed, line care, Starting on Thu08/24/23 at 1734, Flush volume based on line type and size. Flush before and after each use. , Indications: Flushing sodium chloride 0.9% flush 0.5-20 mL 0.5-20 mL, intra-catheter, As needed, line care, Starting on Thu08/24/23 at 1734, Flush volume based on line type and size. Flush before and after each use. , Indications: Flushing sodium chloride 0.9% irrigation (CANCELED) As needed, Starting on Thu08/24/23 at 1150, Intra-Op 1149 (Given - Provider: Adrien Camejo MD - Comment: PRN for pulsavac)1150 (Given - Provider: Adrien Camejo MD - Comment: PRN on sterile field) documented in this encounter Orders Medications Ordered That Terry ht Not Have Been Administered Count Last Ordered Date First Ordered Date albuterol 2.5 mg /3 mL (0.08 3 %) nebulizer solution 2.5 mg 1 08/24/2023 albuterol HFA (PROVENTIL HFA ,VENTOLIN HFA,PROAIR HFA) 90 mcg/actuation inhaler 2 puff 1 08/24/2023 aluminum-magnesium hydroxide -simethicone (MAALOX) 40-40-4 mg/mL oral suspension 30 mL 1 08/24/2023 artificial tears (ISOPTO TEA RS) 0.5 % ophthalmic solution 1 drop 1 08/24/2023 BUPivacaine-EPINEPHrine (MAR SAVANAH w/EPI) 47 mL, morphine 5 mg, cloNIDine (DURACLON) 150 mcg, ketorolac (TORADOL) 30 mg solution 1 08/24/2023 Carrier Fluids for Secondary Infusion - 0.9% Sodium Chloride 1 08/24/2023 ceFAZolin (ANCEF) 2,000 mg/2 0 mL in sterile water (premix) 2,000 mg 1 08/24/2023 cefuroxime (ZINACEF) injection 08/24/2023 dextrose (D10W) 10% bolus 250 mL 2 08/24/19 dextrose (GLUTOSE) 40 % gel 15 g 08/24/19 diphenhydrAMINE (BENADRYL) 5 0 mg/mL injection 12.5 mg 1 08/24/2023 fentaNYL (SUBLIMAZE) preserv ative free injection 25 mcg 1 08/24/2023 fentaNYL (SUBLIMAZE) preserv ative free injection 50 mcg 1 08/24/2023 glucagon injection 1 mg 1 08/24/2023 haloperidol (HALDOL) injection 1 mg 1 08/23 HYDROmorphone (DILAUDID) injection 0.2 mg 1 08/24/2023 HYDROmorphone (DILAUDID) injection 0.4 mg 1 08/24/2023 HYDROmorphone (PF) (DILAUDID ) injection 0.2 mg 1 08/24/2023 insulin lispro (HumaLOG, ADM ELOG) 100 unit/mL injection 0-5 Units 1 08/24/2023 labetaloL (NORMODYNE,TRANDAT E) injection 5 mg 1 08/24/2023 lidocaine (PF) (XYLOCAINE) 1 0 mg/mL (1 %) preservative free injection 2-10 mg 1 08/24/2023 magnesium oxide capsule 1 tablet 08/24/19 24 meperidine (DEMEROL) preserv ative free injection 12.5 mg 1 08/24/2023 naloxone (NARCAN) 0.4 mg/mL injection 0.04-0.4 mg 08/24/2023 ondansetron (ZOFRAN) injection 4 mg 2 08/23 oxyCODONE (ROXICODONE) tablet 5 mg 2023 peg 400-propylene glycol (SY STANE) 0.4-0.3 % ophthalmic solution 1 drop 1 08/24/2023 prochlorperazine (COMPAZINE) injection 10 mg 1 08/24/2023 racepinephrine (ASTHMANEFRIN ) 2.25 % nebulizer solution 0.5 mL 1 08/24/2023 sodium chloride 0.9% flush 0.5-20 mL 3 08/11 sodium chloride 0.9% irrigation 1 Lab Orders Without Results Count Last Ordered D ate First Ordered Date POCT GLUCOSE DEVICE 1 08/24/2023 Diet Count Last Ordered Date First Orde red Date ADULT DISCHARGE DIET 1 08/25/2023 Nursing Count Last Ordered Date First Orde red Date DISCHARGE ACTIVITY 1 08/25/2023 DISCHARGE CALL PROVIDER 5 08/25/2023 DISCHARGE DRESSING 2 08/25/2023 DISCHARGE INSTRUCTIONS 3 08/25/2023 FOLLOW UP WITH ESTABLISHED PROVIDER 1 08/24 BLADDER SCAN 1 08/24/2023 Consult Count Last Ordered Date First Orde red Date IP CONSULT TO CASE MANAGEMENT 1 08/24/2023 Admission Count Last Ordered Date First Orde red Date INITIATE OUTPATIENT IN A BED 1 08/24/2023 Discharge Count Last Ordered Date First Orde red Date DISCHARGE PATIENT 1 08/24/2023 documented in this encounter Care Teams Home Demonstrator Relationship Specialty Start Date End Date Sanket Waldron DO [address] [place] [address] PCP - General 05/26/23 Adrien Camejo MD [address] [facility] [address] [place] [address] Consulting Physician Orthopedic Surgery 08/25/23 documented as of this encounter
--- OUTSIDE RECORDS SUMMARY | 2024-04-01 07:35 | XMS_ITS | Encounter Summary ---
Author Organization [facility] Healthcare Address [address] [place] [address] Care Team Providers Care Catalyst Operator Chief Name Role Phone KonstantinyolandaandreyGeraldine shenchary Phillip THOMPSON Primary Care Provide r Adrien Camejo MD Unavailable [phone] Encounter Details Date Type Department Care Team (Late st Contact Info) Description 08/31/2023 Orders Only [facility] [place] Health Information Management [address] [place] [address] Scanning, Provider Social History Tobacco Use Types [...] on file Legal Sex Female 8:13 AM DIVISION DIRECTOR Gender Identity Female 06/01/2020 9:42 PM DIVISION DIRECTOR Sexual Orientation Straight 06/01/2020 9: 42 PM DIVISION DIRECTOR 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 Not on file Not on file documented as of this encounter Plan of Treatment Not on file documented as of this encounter Procedures Procedure Name Priority Date/Time Associated Diagnosis Comments SCAN - LABS 08/31/2023 documented in this encounter Results * SCAN - LABS (08/31/2023) us Provider Scanning Final Result documented in this encounter Visit Diagnoses Not on filedocumented in this encounter Care Teams Catalyst Operator Chief Relationship Specialty Start Date End Date Sanket Waldron DO [address] [place] [address] [phone] PCP - General 05/26/23 Adrien Camejo MD [address] [address] Consulting Physician Orthopedic Surgery 08/25/23 documented as of this encounter
--- OUTSIDE RECORDS SUMMARY | 2024-04-01 07:35 | XMS_ITS | Encounter Summary ---
Author Organization [facility] Healthcare Address [address] [place] [address] Care Team Providers Care Privacy Attorney Name Role Phone Sanket Waldron Primary Care Provide r Adrien Camejo MD Unavailable [phone] Encounter Details Date Type Department Care Team (Latest Contact Info) Description 08/25/2023 Anticoagulation Visit [facility] Medical Group Cardiology [address] [place] [phone] Huma Trevizo RN H/O mechanical aortic valve [...] on file Legal Sex Female 8:13 AM WHEEL FILLER Gender Identity Female 06/01/2020 9:42 PM WHEEL FILLER Sexual Orientation Straight 06/01/2020 9: 42 PM WHEEL FILLER 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
--- OUTSIDE RECORDS SUMMARY | 2024-04-01 07:35 | XMS_ITS | Encounter Summary ---
Author Organization [facility] Healthcare Address [address] [place] [address] Care Team Providers Care Supervisor Keymodule Assembly Name Role Phone Sanket Waldron Primary Care Provide r Adrien Camejo MD Unavailable [phone] Encounter Details Date Type Department Care Team (Latest Contact Info) Description 09/10/[address] 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 Not on file Not on file documented as of this encounter Plan of Treatment Not on file documented as of this encounter Procedures Procedure Name Priority Date/Time Associated Diagnosis Comments PROTIME-INR Routine 09/10/2023 documented in this encounter Results * (ABNORMAL) Protime-INR (09/10/2023) INR 5.60(A) 0.90 - 1.10 [facility] Blood us Historical Provider LAB BLOOD ORDERABLES Antonina l Result [facility] documented in this encounter Visit Diagnoses Diagnosis H/O mechanical aortic valve replacement- Primary Chronic anticoagulation Encounter for long-term (current) 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s documented in this encounter Care Teams Supervisor Keymodule Assembly Relationship Specialty Start Date End Date Sanket Waldron DO [address] [place] [address] PCP - General 05/26/23 Adrien Camejo MD [address] [facility] [address] [place] [address] Consulting Physician Orthopedic Surgery 08/25/23 documented as of this encounter
--- OUTSIDE RECORDS SUMMARY | 2024-04-01 07:35 | XMS_ITS | Encounter Summary ---
Author Organization [facility] Healthcare Address [address] [place] [address] Care Team Providers Care Delinquency Prevention Officer Name Role Phone Sanket Waldron Primary Care Provide r Adrien Camejo MD Unavailable [phone] Encounter Details Date Type Department Care Team (Latest Contact Info) Description 03/14/2024 Anticoagulation Visit [facility] Medical Group Cardiology [address] [place] [phone] Giuseppe Hernandez RN H/O mechanical aortic valve [...] file Legal Sex Female 8:13 AM MEDICAL DOCTOR Gender Identity Female 06/01/2020 9:42 PM MEDICAL DOCTOR Sexual Orientation Straight 06/01/2020 9: 42 PM MEDICAL DOCTOR 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 Not on file Not on file documented as of this encounter Plan of Treatment Not on file documented as of this encounter Procedures Procedure Name Priority Date/Time Associated Diagnosis Comments PROTIME-INR Routine 03/14/2024 documented in this encounter Results * (ABNORMAL) Protime-INR (03/14/2024) INR 3.10(A) 0.90 - 1.10 EXTERNAL LAB Blood us Historical Provider LAB BLOOD ORDERABLES Antonina l Result EXTERNAL LAB documented in this encounter Visit Diagnoses Diagnosis H/O mechanical aortic valve replacement- Primary Chronic anticoagulation Encounter for long-term (current) 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s documented in this encounter Care Teams Delinquency Prevention Officer Relationship Specialty Start Date End Date Sanket Waldron DO [address] [place] [phone] PCP - General 05/26/23 Adrien Camejo MD [address] [facility] 100 [place] [address] Consulting Physician Orthopedic Surgery 08/25/23 documented as of this encounter
--- OUTSIDE RECORDS SUMMARY | 2024-04-01 07:35 | XMS_ITS | Encounter Summary ---
Author Organization [facility] Healthcare Address [address] [place] [address] Care Team Providers Care Accounts Payable Bookkeeper Name Role Phone KonstantinyolandaandreyGeraldine shenchary Phillip THOMPSON Primary Care Provide r Adrien Camejo MD Unavailable [phone] Encounter Details Date Type Department Care Team (Late st Contact Info) Description 10/19/2023 Orders Only [facility] [place] Health Information Management [address] [place] [phone] Scanning, Provider Social History Tobacco Use Types [...] on file Legal Sex Female 8:13 AM SEASONING SPRAYER Gender Identity Female 06/01/2020 9:42 PM SEASONING SPRAYER Sexual Orientation Straight 06/01/2020 9: 42 PM SEASONING SPRAYER 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 Not on file Not on file documented as of this encounter Plan of Treatment Not on file documented as of this encounter Procedures Procedure Name Priority Date/Time Associated Diagnosis Comments SCAN - LABS 10/19/2023 documented in this encounter Results * SCAN - LABS (10/19/2023) us Provider Scanning Final Result documented in this encounter Visit Diagnoses Not on filedocumented in this encounter Care Teams Accounts Payable Bookkeeper Relationship Specialty Start Date End Date Sanket Waldron DO [address] [place] [address] [phone] PCP - General 05/26/23 Adrien Camejo MD [address] [facility] [address] [address] Consulting Physician Orthopedic Surgery 08/25/23 documented as of this encounter
--- OUTSIDE RECORDS SUMMARY | 2024-04-01 07:35 | XMS_ITS | Encounter Summary ---
Author Organization [facility] Healthcare Address [address] [place] [address] Care Team Providers Care Rehabilitation Services Director Name Role Phone Sanket Waldron Primary Care Provide r Adrien Camejo MD Unavailable [phone] Encounter Details Date Type Department Care Team (Latest Contact Info) Description 09/01/[address] 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 Not on file Not on file documented as of this encounter Plan of Treatment Not on file documented as of this encounter Procedures Procedure Name Priority Date/Time Associated Diagnosis Comments PROTIME-INR Routine 08/31/2023 documented in this encounter Results * (ABNORMAL) Protime-INR (08/31/2023) INR 2.90(A) 0.90 - 1.10 EXTERNAL LAB Blood us Historical Provider LAB BLOOD ORDERABLES Antonina l Result EXTERNAL LAB documented in this encounter Visit Diagnoses Diagnosis H/O mechanical aortic valve replacement- Primary Chronic anticoagulation Encounter for long-term (current) 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s documented in this encounter Care Teams Rehabilitation Services Director Relationship Specialty Start Date End Date Sanket Waldron DO [address] [place] [address] PCP - General 05/26/23 Adrien Camejo MD [address] [facility] [address] [place] [address] Consulting Physician Orthopedic Surgery 08/25/23 documented as of this encounter
--- OUTSIDE RECORDS SUMMARY | 2024-04-01 07:35 | XMS_ITS | Encounter Summary ---
Author Organization [facility] Healthcare Address [address] [place] [address] Care Team Providers Care Lumber Loader Name Role Phone KonstantinSanket dolan DO Primary Care Provide r Adrien Camejo MD Unavailable [phone] Encounter Details Date Type Department Care Team (Late st Contact Info) Description 09/14/2023 Telephone [facility] Medical Group Cardiology [address] 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 * Telephone Encounter - Marley Neves - 09/30/2023 2:53 PM CDT Pt requesting call to discuss INR results. Pt had INR drawn yesterday and it was 4.7. Contact: * Telephone Encounter - Penny Wilks RN - 09/23/2023 4:04 PM CDT Result not compiled at yet. Pt aware I will call her tomorrow with result * Telephone Encounter - Marley Neves - 09/23/2023 3:48 PM CDT Pt requesting call to discuss INR results. Pt had INR drawn today at lab. Contact: * Telephone Encounter - Huma Trevizo RN - 09/18/2023 4:17 PM CDT See ac note. * Telephone Encounter - Huma Trevizo RN - 09/18/2023 3:47 PM CDT Called and requested result to be faxed. * Telephone Encounter - Marley Neves - 09/18/2023 2:41 PM CDT Pt requesting call to discuss INR results. Pt had INR drawn today at lab. Contact: * Telephone Encounter - Juany Madrid RN - 09/14/2023 10:05 AM CDT See AC note. * Telephone Encounter - Elisa Merino - 09/14/2023 9:01 AM CDT Marialuisa calling from lab to report pts critical INR 5.9. Contact:[phone] documented in this encounter Plan of Treatment Not on file documented as of this encounter Visit Diagnoses Not on filedocumented in this encounter Care Teams Lumber Loader Relationship Specialty Start Date End Date Sanket Waldron DO [address] [place] [address] PCP - General 05/26/23 Adrien Camejo MD [address] [address] Consulting Physician Orthopedic Surgery 08/25/23 documented as of this encounter
--- OUTSIDE RECORDS SUMMARY | 2024-04-01 07:35 | XMS_ITS | Encounter Summary ---
Author Organization [facility] Healthcare Address [address] [place] [address] Care Team Providers Care Talent Analyst Name Role Phone Sanket Waldron Primary Care Provide r Adrien Camejo MD Unavailable [phone] Encounter Details Date Type Department Care Team (Latest Contact Info) Description 09/18/2023 Anticoagulation Visit [facility] Medical Group Cardiology [address] [place] [phone] Huma Trevizo RN H/O mechanical aortic valve [...] on file Legal Sex Female 8:13 AM BIOFUELS PLANT SUPERINTENDENT Gender Identity Female 06/01/2020 9:42 PM BIOFUELS PLANT SUPERINTENDENT Sexual Orientation Straight 06/01/2020 9: 42 PM BIOFUELS PLANT SUPERINTENDENT 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 Not on file Not on file documented as of this encounter Plan of Treatment Not on file documented as of this encounter Procedures Procedure Name Priority Date/Time Associated Diagnosis Comments PROTIME-INR Routine 09/18/2023 documented in this encounter Results * (ABNORMAL) Protime-INR (09/18/2023) INR 2.60(A) 0.90 - 1.10 EXTERNAL LAB Blood us Historical Provider LAB BLOOD ORDERABLES Antonina l Result EXTERNAL LAB documented in this encounter Visit Diagnoses Diagnosis H/O mechanical aortic valve replacement- Primary Chronic anticoagulation Encounter for long-term (current) 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s documented in this encounter Care Teams Talent Analyst Relationship Specialty Start Date End Date Sanket Waldron DO [address] [place] [address] PCP - General 05/26/23 Adrien Camejo MD [address] [facility] [address] [place] [address] Consulting Physician Orthopedic Surgery 08/25/23 documented as of this encounter
--- OUTSIDE RECORDS SUMMARY | 2024-04-01 07:35 | XMS_ITS | Encounter Summary ---
Author Organization [facility] Healthcare Address [address] [place] [address] Care Team Providers Care Tax Accounting Assistant Name Role Phone Sanket Waldron Primary Care Provide r Adrien Camejo MD Unavailable [phone] Encounter Details Date Type Department Care Team (Latest Contact Info) Description 10/06/2023 Anticoagulation Visit [facility] Medical Group Cardiology [address] [place] [phone] Juany Madrid RN H/O mechanical aortic valve [...] on file Legal Sex Female 8:13 AM COMMUNITY REINVESTMENT ACT OFFICER Gender Identity Female 06/01/2020 9:42 PM COMMUNITY REINVESTMENT ACT OFFICER Sexual Orientation Straight 06/01/2020 9: 42 PM COMMUNITY REINVESTMENT ACT OFFICER 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 Not on file Not on file documented as of this encounter Plan of Treatment Not on file documented as of this encounter Procedures Procedure Name Priority Date/Time Associated Diagnosis Comments PROTIME-INR Routine 10/05/2023 documented in this encounter Results * (ABNORMAL) Protime-INR (10/05/2023) INR 3.70(A) 0.90 - 1.10 [facility] Blood us Historical Provider LAB BLOOD ORDERABLES Antonina l Result [facility] documented in this encounter Visit Diagnoses Diagnosis H/O mechanical aortic valve replacement- Primary Chronic anticoagulation Encounter for long-term (current) 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s documented in this encounter Care Teams Tax Accounting Assistant Relationship Specialty Start Date End Date Sanket Waldron DO [address] [place] [address] PCP - General 05/26/23 Adrien Camejo MD [address] [facility] [address] [place] [address] Consulting Physician Orthopedic Surgery 08/25/23 documented as of this encounter
--- OUTSIDE RECORDS SUMMARY | 2024-04-01 07:35 | XMS_ITS | Encounter Summary ---
Author Organization [facility] Healthcare Address [address] [place] [address] Care Team Providers Care Clerical Coordinator Name Role Phone Sanket Waldron Primary Care Provide r Adrien Camejo MD Unavailable [phone] Reason for Visit * Reason Onset Date Comments INR results 02/25/2024 Encounter Details Date Type Department Care Team (Late st Contact Info) Description 02/25/2024 Telephone [facility] Medical Group Cardiology [address] [place] [address] Trina Romero MD [facility] [address] [address] INR results Social History Tobacco Use Types Packs/Day Years [...] on file Legal Sex Female 8:13 AM STEREO COMPILER Gender Identity Female 06/01/2020 9:42 PM STEREO COMPILER Sexual Orientation Straight 06/01/2020 9: 42 PM STEREO COMPILER 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 EO COMPILER * Telephone Encounter - Susan Rivera - 03/01/2024 10:46 AM CST Patient calling to report INR results 4.6 02/28 at [place]. Requesting a call back. Please advise.Thank you. Contact [phone] EO COMPILER * Telephone Encounter - Juany Madrid RN - 02/25/2024 3:10 PM STEREO COMPILER See AC note EO COMPILER * Telephone Encounter - Susan Rivera - 02/25/2024 2:47 PM CST Patient requesting a call back to discuss latest INR results. Please advise. Thank you. Contact [phone] EO COMPILER documented in this encounter Plan of Treatment Not on file documented as of this encounter Visit Diagnoses Not on filedocumented in this encounter Care Teams Clerical Coordinator Relationship Specialty Start Date End Date Sanket Waldron DO [address] [place] [phone] PCP - General 05/26/23 Adrien Camejo MD [address] [facility] [address] [address] Consulting Physician Orthopedic Surgery 08/25/23 documented as of this encounter
--- OUTSIDE RECORDS SUMMARY | 2024-04-01 07:35 | XMS_ITS | Encounter Summary ---
Author Organization [facility] Address [address] [place] [address] Care Team Providers Care Evening Sitter Name Role Phone Sanket Waldron DO Primary Care Provide r Adrien Camejo MD Unavailable [phone] Reason for Visit * Cardiology (Routine) - Closed Specialty Diagnoses / Procedures Referred By Chucky acevedo Referred To Contact Diagnoses H/O mechanical aortic valve replacement Procedures Transthoracic Echo (TTE) Complete W Doppler/CF Su Mott NP [address] [facility] [address] [place] [address] Phone: tel: fax: [facility] Referral ID Status Reason Start Date Expiration Date Visits Re quested Visits Authorized [id number] Closed 01/08/2024 02/06/2025 1 1 Encounter Details Date Type Department Care Team (Latest Contact Info) Description 03/14/2024 11:15 AM EXECUTIVE COMMUNICATIONS MANAGER Ancillary Procedure [facility] Cardiology [address] [place] [phone] H/O mechanical aortic valve replacement Social History Tobacco Use Types Packs/Day Years [...] on file Legal Sex Female 8:13 AM EXECUTIVE COMMUNICATIONS MANAGER Gender Identity Female 06/01/2020 9:42 PM EXECUTIVE COMMUNICATIONS MANAGER Sexual Orientation Straight 06/01/2020 9: 42 PM EXECUTIVE COMMUNICATIONS MANAGER 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 Not on file Not on file documented as of this encounter Plan of Treatment Not on file documented as of this encounter Procedures Procedure Name Priority Date/Time Associated Diagnosis Comments TRANSTHORACIC ECHO (TTE) COMPLETE W DOPPLER/CF WO CONTRAST Routine 03/14/2024 11:57 AM EXECUTIVE COMMUNICATIONS MANAGER H/O mechanical aortic valve replacement documented in this encounter Results * TRANSTHORACIC ECHO (TTE) COMPLETE W DOPPLER/CF WO CONTRAST (03/14/2024 11:57 AM EXECUTIVE COMMUNICATIONS MANAGER) Anatomical Region Laterality Modality Ultrasound 03/14/2024 11:4 2 AM EXECUTIVE COMMUNICATIONS MANAGER Narrative 03/14/2024 1:59 PM EXECUTIVE COMMUNICATIONS MANAGER [facility] Cardiology [address] [facility] [address] [id number] [address] [facility] [address], [place] [address] P:[phone] P:[phone] Echocardiographic Report Patient Name: YESSY NIXON M : 1955 Study Date: 03/14/2024 11:42:37 AM Gender: F Tech: NATASHA Ref Provider: SU MOTT Height(Cm): 152 BSA: [...] FINDINGS: Interpretation Site: Exam was interpreted at [facility]. Left Ventricle: Normal left ventricular size. Mild [...] size. Electronically Signed By: Dat Chauhan MD, [facility] 2024-03-14 13:58:46 EXECUTIVE COMMUNICATIONS MANAGER Procedure Note Dat Chauhan MD - 03/14/2024 [facility] Cardiology [address], [place] [address] [address] [facility] [address], [place] [address] P:[phone] P:[phone] Echocardiographic Report Patient Name: YESSY NIXON M [...] FINDINGS: Interpretation Site: Exam was interpreted at [facility]. Left Ventricle: Normal left ventricular size. Mild [...] size. Electronically Signed By: Dat Chauhan MD, [facility] 2024-03-14 13:58:46 EXECUTIVE COMMUNICATIONS MANAGER Su Mott NP CV ECHO PROCEDURES Final Result documented in this encounter Visit Diagnoses Diagnosis H/O mechanical aortic valve replacement documented in this encounter Care Teams Evening Sitter Relationship Specialty Start Date End Date Sanket Waldron DO [address] [place] [address] PCP - General 05/26/23 Adrien Camejo MD [address] [address] Consulting Physician Orthopedic Surgery 08/25/23 documented as of this encounter
--- OUTSIDE RECORDS SUMMARY | 2024-04-01 07:35 | XMS_ITS | Encounter Summary ---
Author Organization [facility] Healthcare Address [address] [place] [address] Care Team Providers Care Medicare Insurance Specialist Name Role Phone Sanket Waldron Primary Care Provide r Adrien Camejo MD Unavailable Encounter Details Date Type Department Care Team (Latest Contact Info) Description 11/16/2023 Anticoagulation Visit [facility] Cardiology [address] [place] [phone] Juany Mdarid RN H/O mechanical aortic valve replacement (Primary [...] on file Legal Sex Female 8:13 AM ACADEMIC REGISTRAR Gender Identity Female 06/01/2020 9:42 PM ACADEMIC REGISTRAR Sexual Orientation Straight 06/01/2020 9: 42 PM ACADEMIC REGISTRAR 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 Not on file Not on file documented as of this encounter Plan of Treatment Not on file documented as of this encounter Procedures Procedure Name Priority Date/Time Associated Diagnosis Comments PROTIME-INR Routine 11/16/2023 documented in this encounter Results * (ABNORMAL) Protime-INR (11/16/2023) INR 2.40(A) 0.90 - 1.10 EXTERNAL LAB Blood us Historical Provider LAB BLOOD ORDERABLES Antonina l Result EXTERNAL LAB documented in this encounter Visit Diagnoses Diagnosis H/O mechanical aortic valve replacement- Primary Chronic anticoagulation Encounter for long-term (current) 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s documented in this encounter Care Teams Medicare Insurance Specialist Relationship Specialty Start Date End Date Sanket Waldron DO [address] [place] [address] PCP - General 05/26/23 Adrien Camejo MD [address] [facility] [address] [address] Consulting Physician Orthopedic Surgery 08/25/23 documented as of this encounter
--- OUTSIDE RECORDS SUMMARY | 2024-04-01 07:35 | XMS_ITS | Encounter Summary ---
Author Organization [facility] Healthcare Address [address] [place] [address] Care Team Providers Care Rug Drying Machine Operator Name Role Phone Sanket Waldron Primary Care Provide r Adrien Camejo MD Unavailable [phone] Encounter Details Date Type Department Care Team (Latest Contact Info) Description 10/19/2023 Anticoagulation Visit [facility] Cardiology [address] [place] [phone] Juany Madrid RN H/O mechanical aortic valve [...] on file Legal Sex Female 8:13 AM LICENSED ESTHETICIAN Gender Identity Female 06/01/2020 9:42 PM LICENSED ESTHETICIAN Sexual Orientation Straight 06/01/2020 9: 42 PM LICENSED ESTHETICIAN 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 Not on file Not on file documented as of this encounter Plan of Treatment Not on file documented as of this encounter Procedures Procedure Name Priority Date/Time Associated Diagnosis Comments PROTIME-INR Routine 10/19/2023 documented in this encounter Results * (ABNORMAL) Protime-INR (10/19/2023) INR 3.00(A) 0.90 - 1.10 EXTERNAL LAB Blood us Historical Provider LAB BLOOD ORDERABLES Antonina l Result EXTERNAL LAB documented in this encounter Visit Diagnoses Diagnosis H/O mechanical aortic valve replacement- Primary Chronic anticoagulation Encounter for long-term (current) 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s documented in this encounter Care Teams Rug Drying Machine Operator Relationship Specialty Start Date End Date Sanket Waldron DO [address] [place] [address] PCP - General 05/26/23 Adrien Camejo MD [address] [facility] [address] [address] Consulting Physician Orthopedic Surgery 08/25/23 documented as of this encounter
--- OUTSIDE RECORDS SUMMARY | 2024-04-01 07:35 | XMS_ITS | Encounter Summary ---
Author Organization [facility] Healthcare Address [address] [place] [address] Care Team Providers Care Electrical Systems Drafter Name Role Phone Sanket Waldron DO Primary Care Provide r Adrien Camejo MD Unavailable [phone] Reason for Visit * Reason Onset Date Comments Epistaxis (Nose Bleed) 03/28/2024 INR results 03/28/2024 Encounter Details Date Type Department Care Team (Late st Contact Info) Description 03/28/2024 Telephone [facility] Cardiology [address] [place] [address] Trina Romero MD [address] [address] Epistaxis (Nose Bleed); INR results Social History Tobacco Use Types [...] on file Legal Sex Female 8:13 AM SENIOR CARE ASSISTANT Gender Identity Female 06/01/2020 9:42 PM SENIOR CARE ASSISTANT Sexual Orientation Straight 06/01/2020 9: 42 PM SENIOR CARE ASSISTANT 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 OR CARE ASSISTANT * Telephone Encounter - Susan Rivera - 03/28/2024 10:07 AM CST Patient states that she went to [place] ED last night 03/27 for a nose bleed. States that her INR was drawn and it was a 2.6. States that the ENT is placing her antibiotics for about a week. Please advise. Thank you. Contact [phone] OR CARE ASSISTANT documented in this encounter Plan of Treatment Not on file documented as of this encounter Visit Diagnoses Not on filedocumented in this encounter Care Teams Electrical Systems Drafter Relationship Specialty Start Date End Date Sanket Waldron DO [address] [place] [address] PCP - General 05/26/23 Adrien Camejo MD [address] [place] [address] Consulting Physician Orthopedic Surgery 08/25/23 documented as of this encounter
--- OUTSIDE RECORDS SUMMARY | 2024-04-01 07:35 | XMS_ITS | Encounter Summary ---
Author Organization [facility] Healthcare Address [address] [place] [address] Care Team Providers Care Tick Inspector Name Role Phone KonstantinSanket dolan DO Primary Care Provide r Adrien Camejo MD Unavailable [phone] Encounter Details Date Type Department Care Team (Late st Contact Info) Description 12/24/2023 Telephone [facility] Cardiology [address] [facility] [address] [place] [address] Rachel Fan NP [address] [facility] [address] [place] [address] Social History Tobacco Use Types [...] on file Legal Sex Female 8:13 AM SECURITY SOLUTIONS ENGINEER Gender Identity Female 06/01/2020 9:42 PM SECURITY SOLUTIONS ENGINEER Sexual Orientation Straight 06/01/2020 9: 42 PM SECURITY SOLUTIONS ENGINEER 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 * Telephone Encounter - Marley Neves - 12/24/2023 10:57 AM CDT Pt returning call from nurse Harrington to discuss INR results. Contact: documented in this encounter Plan of Treatment Not on file documented as of this encounter Visit Diagnoses Not on filedocumented in this encounter Care Teams Tick Inspector Relationship Specialty Start Date End Date Sanket Waldron DO [address] [place] [address] PCP - General 05/26/23 Adrien Camejo MD [address] [address] Consulting Physician Orthopedic Surgery 08/25/23 documented as of this encounter
--- OUTSIDE RECORDS SUMMARY | 2024-04-01 07:35 | XMS_ITS | Encounter Summary ---
Author Organization [facility] Healthcare Address [address] [place] [address] Care Team Providers Care Tube Winder Name Role Phone Sanket Waldron Primary Care Provide r Adrien Camejo MD Unavailable [phone] Encounter Details Date Type Department Care Team (Latest Contact Info) Description 01/11/2024 Anticoagulation Visit [facility] Medical [facility] Cardiology [address] [place] [phone] Juany Madrid RN H/O mechanical aortic valve [...] on file Legal Sex Female 8:13 AM NEWS CAMERAMAN Gender Identity Female 06/01/2020 9:42 PM NEWS CAMERAMAN Sexual Orientation Straight 06/01/2020 9: 42 PM NEWS CAMERAMAN 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 Not on file Not on file documented as of this encounter Plan of Treatment Not on file documented as of this encounter Procedures Procedure Name Priority Date/Time Associated Diagnosis Comments PROTIME-INR Routine 01/11/2024 documented in this encounter Results * (ABNORMAL) Protime-INR (01/11/2024) INR 2.60(A) 0.90 - 1.10 EXTERNAL LAB Blood us Historical Provider LAB BLOOD ORDERABLES Antonina l Result EXTERNAL LAB documented in this encounter Visit Diagnoses Diagnosis H/O mechanical aortic valve replacement- Primary Chronic anticoagulation Encounter for long-term (current) 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s documented in this encounter Care Teams Tube Winder Relationship Specialty Start Date End Date Sanket Waldron DO [address] [place] [address] PCP - General 05/26/23 Adrien Camejo MD [address] [facility] [address] [address] Consulting Physician Orthopedic Surgery 08/25/23 documented as of this encounter
--- OUTSIDE RECORDS SUMMARY | 2024-04-01 07:35 | XMS_ITS | Encounter Summary ---
Author Organization [facility] Healthcare Address [address] [place] [address] Care Team Providers Care Digester Cook Name Role Phone KonstantinSanket dolan DO Primary Care Provide r Adrien Camejo MD Unavailable [phone] Encounter Details Date Type Department Care Team (Late st Contact Info) Description 08/25/2023 Telephone [facility] Medical [facility] Cardiology [address] [facility] [address] [place] [address] Rachel Fan NP [address] [facility] [address] [place] [address] Social History Tobacco Use Types [...] on file Legal Sex Female 8:13 AM WET PROCESS TECHNICIAN Gender Identity Female 06/01/2020 9:42 PM WET PROCESS TECHNICIAN Sexual Orientation Straight 06/01/2020 9: 42 PM WET PROCESS TECHNICIAN 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 * Telephone Encounter - Marley Neves - 08/25/2023 3:25 PM CDT Pt requesting call to discuss INR results. Contact: documented in this encounter Plan of Treatment Not on file documented as of this encounter Visit Diagnoses Not on filedocumented in this encounter Care Teams Digester Cook Relationship Specialty Start Date End Date Sanket Waldron DO [address] [place] [address] PCP - General 05/26/23 Adrien Camejo MD [address] [address] Consulting Physician Orthopedic Surgery 08/25/23 documented as of this encounter
--- OUTSIDE RECORDS SUMMARY | 2024-04-01 07:35 | XMS_ITS | Encounter Summary ---
Author Organization [facility] Healthcare Address [address] [place] [address] Care Team Providers Care Truck Mechanic Name Role Phone Sanket Waldron Primary Care Provide r Adrien Camejo MD Unavailable [phone] Encounter Details Date Type Department Care Team (Latest Contact Info) Description 11/26/2023 Anticoagulation Visit [facility] Cardiology [address] [place] [phone] Juany Madrid RN H/O mechanical aortic valve [...] file Legal Sex Female 8:13 AM HEALTH INFORMATION ASSISTANT Gender Identity Female 06/01/2020 9:42 PM HEALTH INFORMATION ASSISTANT Sexual Orientation Straight 06/01/2020 9: 42 PM HEALTH INFORMATION ASSISTANT 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 Not on file Not on file documented as of this encounter Plan of Treatment Not on file documented as of this encounter Procedures Procedure Name Priority Date/Time Associated Diagnosis Comments PROTIME-INR Routine 11/26/2023 documented in this encounter Results * (ABNORMAL) Protime-INR (11/26/2023) INR 2.60(A) 0.90 - 1.10 EXTERNAL LAB Blood us Historical Provider LAB BLOOD ORDERABLES Antonina l Result EXTERNAL LAB documented in this encounter Visit Diagnoses Diagnosis H/O mechanical aortic valve replacement- Primary Chronic anticoagulation Encounter for long-term (current) 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s documented in this encounter Care Teams Truck Mechanic Relationship Specialty Start Date End Date Sanket Waldron DO [address] [place] [address] PCP - General 05/26/23 Adrien Camejo MD [address] [facility] [address] [address] Consulting Physician Orthopedic Surgery 08/25/23 documented as of this encounter
--- OUTSIDE RECORDS SUMMARY | 2024-04-01 07:35 | XMS_ITS | Encounter Summary ---
Author Organization [facility] Healthcare Address [address] [place] [address] Care Team Providers Care Filter Pulp Washer Name Role Phone KonstantinSanket dolan DO Primary Care Provide r Adrien Camejo MD Unavailable [phone] Encounter Details Date Type Department Care Team (Late st Contact Info) Description 09/10/2023 Telephone [facility] Cardiology [address] [facility] [address] [place] [address] Rachel Fan NP [address] [facility] [address] [place] [address] Social History Tobacco Use Types [...] on file Legal Sex Female 8:13 AM EQUINE PHARMACOLOGY TECHNICIAN Gender Identity Female 06/01/2020 9:42 PM EQUINE PHARMACOLOGY TECHNICIAN Sexual Orientation Straight 06/01/2020 9: 42 PM EQUINE PHARMACOLOGY TECHNICIAN 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 on file Not on file documented as of this encounter Miscellaneous Notes * Telephone Encounter - Marley Neves - 09/10/2023 2:46 PM CDT Judy called from lab to report critical INR today is 5.6 documented in this encounter Plan of Treatment Not on file documented as of this encounter Visit Diagnoses Not on filedocumented in this encounter Care Teams Filter Pulp Washer Relationship Specialty Start Date End Date Sanket Waldron DO [address] [place] [address] PCP - General 05/26/23 Adrien Camejo MD [address] [address] Consulting Physician Orthopedic Surgery 08/25/23 documented as of this encounter
--- OUTSIDE RECORDS SUMMARY | 2024-04-01 07:35 | XMS_ITS | Encounter Summary ---
Author Organization [facility] Healthcare Address [address] [place] [address] Care Team Providers Care Computer Typesetter Keyliner Name Role Phone Sanket Waldron Primary Care Provide r Reason for Visit * Auth/Cert (Routine) Specialty Diagnoses / Procedures Referred By Contac t Referred To Contact Diagnoses Primary osteoarthritis of right knee Primary osteoarthritis of right knee [M17.11] Procedures WV ARTHRP KNE CONDYLE&PLATU MEDIAL&LAT COMPARTMENTS WV ARTHROPLASTY PATELLA W/O PROSTHESIS Right Total Knee Arthroplasty Referral ID Status Reason Start Date Expiration Date Visits Re quested Visits Authorized [id number] 1 1 Encounter Details Date Type Department Care Team (Late st Contact Info) Description 08/24/2023 10:30 AM CDT - 08/24/2023 1:45 PM CDT Surgery [facility] Operating Room [address] [place] [phone] Adrien Camejo MD [address] [facility] [address] [place] [address] Right Total Knee Arthroplasty Surgery Details Date/Time Status Location OR Service Patient Class Case Class Case Type Trauma Case? 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 file Not on file Not on file documented as of this encounter Last Filed Vital Signs Vital Sign Reading Time Taken Comments Blood Pressure 124/57 08/24/2023 1:45 PM CDT Pulse 66 08/24/2023 1:45 PM CDT Temperature 38.2 ??C (100.7 ??F) 08/24/2023 1:40 PM C DT Respiratory Rate 13 08/24/2023 1:45 PM CDT Oxygen Saturation 94% 08/24/2023 1:45 PM CDT Inhaled Oxygen Concentration - - [...] Care Physician at Discharge: Sanket Waldron DO [phone] Admission Date: 08/24/2023 Discharge Date: 08/25/2023 Primary [...] Discharge Instructions Adrien Camejo MD [facility]; [phone] Follow up Appointment in 4 weeks; please [...] be given prescriptions for both Percocet and [place]. In general, Percocetis for severe pain and [place] for moderate pain. Both of these are [...] need to come to the office to picker tender a hand-written prescription. Refills are NOT given [...] Emergency exchange after hours Marialuisa (Dr. Camejo's surveyor's assistant) Special Instructions: Continue following PT/OT instructions [...] Wound Healing and Your Diet (General Information) (Australian) * Laxative, Stool Softeners (By mouth) (Australian) * Hydrocodone/Acetaminophen (By mouth) (Australian) * Oxycodone, Rapid Release (By mouth) (Australian) * Meloxicam (By mouth) (Australian) documented in this encounter Medications at Time [...] (20 mg total) by mouth every morning 4 warfarin (COUMADIN) 2 mg tablet Take 1 [...] mg total) by mouth daily 30 tablet 08/24/2023 4 documented in this encounter Discharge [...] the time .) Home ADL Equipment-Currently Using Development Specialist Prior Function Level of [place] Independent with ADLs;Independent functional transfers;Independent with ambulation;Independent [...] (was going to PT and swimming at [facility] prior to surgery) Activity Tolerance Endurance Tolerates [...] the time .) Home ADL Equipment-Currently Using Development Specialist Additional Comments Pt was independent with ambulation with occasional use of walking sticks. States both knees don't bend well and has plans to get her left knee done at a later time. Prior Function Level of [place] Independent with ADLs;Independent with ambulation;Independent with homemakingwith [...] AE with SBA. Educated on use of aviation medicine specialist if ever needed. Educated pt on use [...] Initiallyneeds cues to push walker instead of picker tender. Completes toilet/chair transfers with SBA and controlled [...] via verbal instruction. Patient verbalized understanding * Nick Yanelis, NP - 08/25/2023 9:24 AM CDT Orthopedic [...] 100 mL/hr, Last Rate: 100 mL/hr (08/24/23 1743) PRN Meds:. albuterol HFA aluminum-magnesium hydroxide-simethicone gabapentin [...] Yanelis Romero NP Orthopedics/Anesthesia [facility] [phone] Surgical Home-orthopedics Cosigned by Adrien Camejo MD [...] 0.5 % ophthalmic solution -- -- -- ProviderReynaldo MD aspirin 81 mg enteric coated tablet [...] menthol 4 % gel -- -- -- Reyanldo Antonio MD sodium chloride (OCEAN) 0.65 % [...] Problem Relation Age of Onset Other Father MA age 50, CABG; Heart attack Father Arthritis [...] during recovery from upcoming surgery. Going to [employer] 3 times a week for swimming Labs [...] S/P SAVR with [address] Skip [place] prosthesis. Peak Velocity 1.70 m/s. Mean gradient [...] Medication protocol when under care of a STRATEGIC ANALYST Planned anesthesia: Spinal, PNB - single shot and regional for postop pain per surgeon request Lower extremity: saphenous nerve block - subsartorial approach Postoperative Plan: Postoperative administration opioids intended. No postoperative mechanical ventilation intended. Patient's planned disposition post procedure is Floor. Informed Consent: Discussed plan with STRATEGIC ANALYST. Anesthesia plan and risks discussed with patient. [...] Implant Name Type Inv. Item Serial No. Wool Carder Lot No. LRB No. Used Action [employer] Simplex P Radiopaque Full Dose Cement Bone Sterile 6191-1-010 - [id number] [employer] Simplex P Radiopaque Full Dose Cement Bone Sterile 6191-1-010 [employer] [id number] Right 1 Implanted [employer] Ascent Maxim 63mm 1 Piece Cruciate Fin Knee Tray Tibial Interlok [id number] - [id number] [employer] Ascent Maxim 63mm 1 Piece Cruciate Fin Knee Tray Tibial Interlok [id number] [employer] [id number] Right 1 Implanted [employer] Vanguard 60mm Cruciate Retaining Knee Right Component Femoral [id number] - [id number] [employer] Vanguard 60mm Cruciate Retaining Knee Right Component Femoral [id number] [employer] [id number] Right 1 Implanted [employer] BEARING 63/[id number] VANGUARD ARCOM KNEE CRUCIATE RETAIN DIRECT [id number] - [id number] [employer] BEARING 63/[id number] VANGUARD ARCOM KNEE CRUCIATE RETAIN DIRECT [id number] [employer] [id number] Right 1 Implanted ANESTHESIA: Spinal anesthesia and adductor canal block SURGEON: Adrien Camejo MD SUPERVISOR ENDLESS TRACK VEHICLE: Traveling Nurse: Steve Ramos RN Traveling Nurse Relief: Mary Franz RN Scrub Relief: Bernie Jacobson ST Scrub: Yvonne Michelle ST SAMPLE COLOR MAKER: Blanquita Nino NP; Amanuel Parry RN .................................................. PROCEDURE The patient was brought to the operating room, was set up on the operating table and a spinal anesthetic was performed. She was then placed back into the supine position. An adductor canal nerve block had been performed in the preoperative holding area. A tourniquet was placed high on the patient's right thigh and the right lower extremity was sterilely prepped and draped. A Romel bandage was us ed to exsanguinate the left lower extremity. The tourniquet was inflated to 300 mmHg. Total tourniquet time for the case was 40 minutes. A straight anterior incision was made and carried down throughthe subcutaneous tissue. The medial parapatellar arthrotomy was carried out. The proximal medial tibia was subperiosteally exposed. The medial meniscus, lateral meniscus and anterior cruciate ligament were excised. Osteophytes were removed from the distal femur and proximal tibia. Examination of the patella was showed that it tracked well, there were some areas of patellar cartilage loss but no complete eburnated bone area. Given the patient's age, patella findings and overall situation, she was felt to be a candidate for patella plasty and a patellar resurfacing. As such a rongeur was utilized to remove all patella osteophytes circumferentially. The lateral facet was beveled as needed. Thefinal construct tracked well. The intramedullary drill was [...] appeared appropriate. The 60 mm anterior posterior andchamfer cutting guide block was put into position [...] tibial spacer. The alignment of the tibial tray was marked with the Bovie cautery. Drill holes were drilled through the distal femoral trial. Femoral and tibial trials were removed. The proximal tibia was prepared for the stem portion of the component by putting the template into position and using the tower guide and punch for the stem portionof the component. The proximal tibia was irrigated. [...] The knee was brought through range of motion and found to be stable. AP and lateral x-rays were taken which revealed the components to bein excellent position. At this point, the tourniquet was released. Hemostasis was obtained with theBovie cautery. Total tourniquet time for the case was at 40 minutes. The knee was irrigated with irrigation solution made up of 30 mL of 5% Betadine solution mixed in 400 mL of normal saline and thenplaced into the operative site and let sit [...] with interrupted #1 Vicryl suture in a enluji-tp-uxcig fashion. The subcutaneous tissue was closed with 1 layer of 2-0 Vicryl suture and 1 layer of 2-0 Monocryl suture and the skin was closed with a running 4-0 Monocryl stitch and Dermabond glue. The wound was covered with a Telfa pad, 4x4s and Tegaderm. Sterile Webril was then placed around the left knee and 2 six-inchAce wraps from toe to groin. A Polar [...] Results * eGFR (08/25/2023 5:41 AM CDT) eGFR >90 >=60 mL/min/1. 73 m2 Comment: [...] 5:41 AM CDT 08/25/2023 5:56 AM CDT us Adrien Camejo MD LAB BLOOD ORDERABLES Final R esult [facility] [address] [place] [address] * Protime-INR (08/25/2023 5:41 AM CDT) PT 12.7 10.3 - 13.7 sec INR 1.11 0.90 - 1.20 [facility] Comment: Interpretive data Oral anticoagulant [...] ORDERABLES Final R esult Performing Organization Address [facility] Co de Phone Number [facility] [address] [employer] [place], [place] [phone] * (ABNORMAL) CBC without differential (08/25/2023 5:41 AM CDT) [facility] WBC 7.0 3.8 - 9.9 K/cumm Hgb 10.4(L) 11.9 - 15.5 g/dL [facility] Hct 32.9(L) 35.6 - 45.5 % [facility] Plt 148(L) 150 - 400 K/cumm [facility] MPV 10.7 9.1 - 12.[address] [facility] RBC 3.35(L) 3.90 - 5.20 M/cumm [facility] MCV 98.2(H) 81.3 - 96.[address] [facility] MCH 31.0 27.1 - 33.[address] [facility] MCHC 31.6(L) 32.3 - 35.7 g/dL [facility] RDW CV 13.2 11.1 - 14.9 % [facility] RDW SD 47.6 35.7 - 48.[address] [facility] NRBC abs 0.00 0.00 - 0.01 K/cumm [facility] Blood 08/25/2023 5:41 AM CDT 08/25/2023 5:56 AM CDT Adrien Camejo MD LAB BLOOD ORDERABLES Final R esult Performing Organization Address City/[facility]/ZIP Co de Phone Number [facility] [address] [employer] [place], [place] [phone] * (ABNORMAL) Basic metabolic panel (08/25/2023 5:41 AM CDT) Pathologist [facility] Sodium 141 135 - 145 mmol/L Potassium, pl 4.4 3.3 - 4.9 mmol/L [facility] Chloride 107 97 - 110 mmol/L [facility] CO2 26 22 - 32 mmol/L [facility] Anion gap 8 2 - 15 mmol/L [facility] BUN 15 6 - 25 mg/dL [facility] Creatinine 0.47(L) 0.60 - 1.10 mg/dL [facility] Glucose 89 70 - 199 mg/dL [facility] Comment: Interpretive Data Fasting glucose >/= 126 [...] classification and Diagnosis of Diabetes Diabetes Care 202; 46: S19-S40. Current interpretive data was last revised 2022. Calcium 8.8 8.5 - 10.3 mg/dL [facility] Blood 08/25/2023 5:41 AM CDT 08/25/2023 5:56 AM CDT Adrien Camejo MD LAB BLOOD ORDERABLES Final R esult [facility] [address] [place] [address] * aPTT (08/25/2023 5:41 AM CDT) aPTT 32 28 - 38 sec Comment: Interpretive Data Heparin therapeutic range: 66.0 - 100.0 seconds. Range based on correlation with therapeutic heparin activity range of 0.3 - 0.7 Units/mL. Current interpretive data was last revised on 2023. Blood 08/25/2023 5:41 AM CDT 08/25/2023 5:[address] [facility] - 08/25/2023 6:16 AM CDT Baseline prior to warfarin initiation. Adrien Camejo MD LAB BLOOD ORDERABLES Final R esult Performing Organization Address [facility] Co de Phone Number [facility] [address] [facility] [place] [address] * Protime-INR (08/24/2023 8:41 AM CDT) PT 12.2 10.3 - 13.7 sec INR 1.07 0.90 - 1.20 [facility] Comment: Interpretive data Oral anticoagulant therapeutic ranges: Venous thromboembolism prophylaxis or treatment: 2.0-3.0 CARDIOLOGY Standard range: 2.0-3.0 High-intensity range: 2.5-3.5 Refer to indication-specific guidelines for appropriate target ranges for prosthetic heart valve replacement. Current interpretive data was last revised on 2019. Blood 08/24/2023 8:41 AM CDT 08/24/2023 8:43 AM CDT Chel Zurita NP LAB BLOOD ORDERABLES Antonina l Result Performing Organization Address [facility] de Phone Number [facility] [address] [facility] [place] [address] documented in this encounter Visit Diagnoses Diagnosis Osteoarthritis of knee- Primary Osteoarthrosis, unspecified whether generalized or localized, lower leg Arthritis of right knee Primary osteoarthritis of right knee documented in this encounter [...] 0900, For 1 dose, Pre-Op, Indications: Pre-Emptive AnalgesiaIndications:Pre-E mptive Analgesia Given 08/24/2023 8:45 AM CDT 1,000 [...] volume, do not exceed 2 mL/minute, Indications: hypotensiveIndications:hyp otensive Given 08/24/2023 2:10 PM CDT 12.5 g albumin 5 % bottle 12.5 g 12.5 g, intravenous, Once, On Thu08/24/23 at 1545, For 1 dose, Phase I, Infusion rate depends on indication and clinical situation. Suggested initial rate - 120 mL/hr. In patients with normal plasma volume, do not exceed 2 mL/minute, Indications: hypotensionIndications:hyp otension Given 08/24/2023 3:17 PM CDT 12.5 g ascorbic acid (VITAMIN C) tablet/chewable tablet 500 mg 500 mg, oral, Daily, First dose on Thu08/25/23 at 0900, Indications: Vitamin deficiency preventionIndications:Jessica min deficiency prevention Given 08/25/2023 7:40 AM CDT 500 mg BUPivacaine-EPINEPHrine (MARCAINE w/EPI) 47 mL, morphine 5 mg, cloNIDine (DURACLON) 150 mcg, ketorolac (TORADOL) 30 mg solution As needed, Starting on Thu08/24/23 at 1224, Intra-Op Given 08/24/2023 12:24 PM CDT 50 mL Surgical Site calcium carbonate (TUMS) chewable tablet 1,000 mg 1,000 mg (400 mg of elemental calcium), oral, 2 times daily, First dose on Thu08/24/23 at 2100, Indications: Hypocalcemia PreventionIndications:Hypo calcemia Prevention Given 08/25/2023 7:39 AM CDT 1,000 [...] 6:30 PM CDT 1,000 mg 200 mL/hr cefuroxime (ZINACEF) injection As needed, Starting on Thu08/24/23 at 1220, Intra-Op Given 08/24/2023 12:20 PM CDT 1.5 g Surgical Site dexAMETHasone (DECADRON) 4 mg/mL injection 4 mg [...] Given 08/24/2023 9:56 PM CDT 10 mL sodium chloride 0.9% irrigation As needed, Starting on Thu08/24/23 at 1150, Intra-Op Given 08/24/2023 11:50 AM CDT 500 mL Surgical Site Given 08/24/2023 11:49 AM CDT 3,000 mL S urgical Site vancomycin 1,000 mg/200 mL in dextrose 5% [...] Pre-Emptive Analgesia 0845 (Given - Provider: Oralia Pete RN) albumin 5 % bottle 12.5 g [...] on Thu08/24/23 at 2100, Indications: Hypocalcemia Prevention 2153 (Given - Provider: Faisal Middleton) 0739 (Given - Provider: Kalpana Andre RN) ceFAZolin (ANCEF) 1 gram/10 mL in sterile water (premix) 1,000 mg (COMPLETED) 1,000 mg, intravenous, at 200 mL/hr, Administer over 3 Minutes, Every 8 hours, First dose on Thu08/24/23 at 1930, For 2 doses, Beginning 8 hours after last candy-operative dose., Indications: Prophylaxis, Surgical 1830 (Given - Provider: Urszula Grover RN) 0256 (Given - Provider: Faisal Middleton) ceFAZolin (ANCEF) [...] Adjunct 1744 (Not Given - Provider: Urszula Grover, BHAVANA - Reason: Other) 0256 (Given - Provider: Faisal Middleton)0949 (Given - Provider: Kalpana Andre, BHAVANA) dimenhyDRINATE (DRAMAMINE) tablet 25 mg (COMPLETED) 25 mg, oral, Once, On Thu08/24/23 at 0900, For 1 dose, Pre-Op, Indications: Prevention of Nausea and Vomiting 0845 (Given - Provider: Oralia Pete, BHAVANA) docusate sodium (COLACE) capsule 100 mg 100 [...] I 1449 (New Bag - Provider: Li Duarte, RN) latanoprost (XALATAN) 0.005 % ophthalmic solution 1 drop 1 drop, each eye, Nightly, First dose on Thu08/24/23 at 2100 2152 (Given - Provider: Faisal Middleton) magnesium oxide (MAG-OX) tablet 400 mg 400 mg, oral, Nightly, First dose on Thu08/24/23 at 2100, 1 tablet = Magnesium oxide 400 mg = 241.3 mg elemental magnesium, Indications: hypomagnesemia 2152 (Given - Provider: Faisal Middleton) phenylephrine (JESSCIA-SYNEPHRINE) 1 mg/10 mL (100 mcg/mL) in sodium [...] line type and size. , Indications: Flushing 2156 (Given - Provider: Faisal Middleton) 0519 (Given [...] 120 minutes of incision., Indications: Prophylaxis, Surgical 0914 (New Bag - Provider: Oralia Pete RN) [...] Indications: Mechanical Valve Thromboembolism Prophylaxis, VTE Prophylaxis 1826 (Given - Provider: Urszula Grover RN) Continuous [...] 2 puff, inhalation, Every 4 hours PRN (certified recreational therapist), wheezing, Starting on Thu08/24/23 at 1737 aluminum-magnesium [...] HFA,PROAIR HFA) 90 mcg/actuation inhaler 2 puff 08/24/2023 aluminum-magnesium hydroxide -simethicone (MAALOX) 40-40-4 mg/mL oral suspension 30 mL 08/24/2023 artificial tears (ISOPTO TEA RS) 0.5 % ophthalmic solution 1 drop 08/24/2023 Carrier Fluids for Secondary Infusion - 0.9% Sodium Chloride 08/24/2023 ceFAZolin (ANCEF) 2,000 mg/2 0 mL in sterile water (premix) 2,000 mg 08/24/2023 dextrose (D10W) 10% bolus 250 mL 08/24/19 dextrose (GLUTOSE) 40 % gel 15 g 08/24/19 diphenhydrAMINE (BENADRYL) 5 0 mg/mL injection 12.5 mg 08/24/2023 fentaNYL (SUBLIMAZE) preserv ative free injection 25 mcg 08/24/2023 fentaNYL (SUBLIMAZE) preserv ative free injection 50 mcg 08/24/2023 glucagon injection 1 mg 08/24/2023 haloperidol (HALDOL) injection 1 mg 08/23 HYDROmorphone (DILAUDID) injection 0.2 mg 08/24/2023 HYDROmorphone (DILAUDID) injection 0.4 mg 08/24/2023 HYDROmorphone (PF) (DILAUDID ) injection 0.2 mg 08/24/2023 insulin lispro (HumaLOG, ADM ELOG) 100 unit/mL injection 0-5 Units 08/24/2023 labetaloL (NORMODYNE,TRANDAT E) injection 5 mg 08/24/2023 lidocaine (PF) (XYLOCAINE) 1 0 mg/mL (1 %) preservative free injection 2-10 mg 08/24/2023 magnesium oxide capsule 1 tablet 08/24/19 meperidine (DEMEROL) preserv ative free injection 12.5 mg 08/24/2023 naloxone (NARCAN) 0.4 mg/mL injection 0.04-0.4 mg 08/24/2023 ondansetron (ZOFRAN) injection 4 mg 2 08/23 oxyCODONE (ROXICODONE) tablet 5 mg 1 2023 peg 400-propylene glycol (SY STANE) 0.4-0.3 % ophthalmic solution 1 drop 1 08/24/2023 prochlorperazine (COMPAZINE) injection 10 mg 1 08/24/2023 racepinephrine (ASTHMANEFRIN ) 2.25 % nebulizer solution 0.5 mL 1 08/24/2023 sodium chloride 0.9% flush 0.5-20 mL 3 08/11 Lab Orders Without Results Count Last Ordered [...] 08/24/2023 documented in this encounter Care Teams Computer Typesetter Keyliner Relationship Specialty Start Date End Date Sanket Waldron DO [address] [place] [id number] PCP - General 05/26/23 documented as of this encounter
--- OUTSIDE RECORDS SUMMARY | 2024-04-01 07:35 | XMS_ITS | Encounter Summary ---
Author Organization [facility] Healthcare Address [address] [place] [address] Care Team Providers Care Waiter/Waitress First Class Name Role Phone Sanket Waldron Primary Care Provide r Adrien Camejo MD Unavailable [phone] Encounter Details Date Type Department Care Team (Latest Contact Info) Description 09/30/2023 Anticoagulation Visit [facility] Cardiology [address] [place] [phone] Juany Madrid RN H/O mechanical aortic valve [...] on file Legal Sex Female 8:13 AM SHEEP AND WHEAT FARMER Gender Identity Female 06/01/2020 9:42 PM SHEEP AND WHEAT FARMER Sexual Orientation Straight 06/01/2020 9: 42 PM SHEEP AND WHEAT FARMER 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 Not on file Not on file documented as of this encounter Plan of Treatment Not on file documented as of this encounter Procedures Procedure Name Priority Date/Time Associated Diagnosis Comments PROTIME-INR Routine 09/29/2023 documented in this encounter Results * (ABNORMAL) Protime-INR (09/29/2023) INR 4.70(A) 0.90 - 1.10 [facility] Blood us Historical Provider LAB BLOOD ORDERABLES Antonina l Result [facility] documented in this encounter Visit Diagnoses Diagnosis H/O mechanical aortic valve replacement- Primary Chronic anticoagulation Encounter for long-term (current) 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s documented in this encounter Care Teams Waiter/Waitress First Class Relationship Specialty Start Date End Date Sanket Waldron DO [address] [place] [id number] PCP - General 05/26/23 Adrien Camejo MD [address] [facility] [address] [place] [address] Consulting Physician Orthopedic Surgery 08/25/23 documented as of this encounter
--- OUTSIDE RECORDS SUMMARY | 2024-04-01 07:36 | XMS_ITS | Encounter Summary ---
Author Organization [facility] Address [address] [place] [address] Care Team Providers Care Spragger Name Role Phone Jose Lorenzo DO Primary Care Provider [phone] Encounter Details Date Type Department Care Team (Latest Contact Info) Description 12/18/2022 Anticoagulation Visit [facility] Cardiology [address] [place] [address] Juany Madrid RN H/O mechanical aortic valve replacement (Primary Dx); Chronic anticoagulation Social History Tobacco Use Types Packs/Day Years Used Date Smoking Tobacco: Never Smokeless Tobacco: Never Alcohol Use Standard Drinks/Week Comments Yes 1 (1 standard drink = 0.6 oz pur e alcohol) socially AUDIT-C Answer Date Recorded Q1: How often do you have a drink containing alc ohol? Monthly or less 11/21/2020 Q2: How many drinks containi ng alcohol do you have on a typical day when you are drinking? 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 Not on file Not on file documented as of this encounter Plan of Treatment Not on file documented as of this encounter Procedures Procedure Name Priority Date/Time Associated Diagnosis Comments PROTIME-INR Routine 12/18/2022 documented in this encounter Results * (ABNORMAL) Protime-INR (12/18/2022) INR 3.00(A) 0.9 - 1.1 EXTERNAL LAB Blood us Historical Provider LAB BLOOD ORDERABLES Antonina l Result EXTERNAL LAB documented in this encounter Visit Diagnoses Diagnosis H/O mechanical aortic valve replacement- Primary Chronic anticoagulation Encounter for long-term (current) 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s documented in this encounter Care Teams Spragger Relationship Specialty Start Date End Date Jose Lorenzo DO PCP - General Family Medicine 09/23/22 05/25/23 documented as of this encounter
--- OUTSIDE RECORDS SUMMARY | 2024-04-01 07:36 | XMS_ITS | Encounter Summary ---
Author Organization [facility] Healthcare Address [address] [place] [address] Care Team Providers Care Simulation Developer Name Role Phone Konstantinyolandajunior Sanketmagdi Fisher Primary Care Provide r Encounter Details Date Type Department Care Team (Late st Contact Info) Description 07/01/2023 Telephone [facility] Cardiology [address] [place] [address] Bindu Gaines MD [address] [place] [address] Social History Tobacco Use Types [...] 0 06/12/2020 Personal Safety Answer Date Recorded Getting School Help Needed Not on file 03/25 Comments Unknown Sex and Gender Information Value Date Recorded Sex Assigned at Not on file Legal Sex Female 8:13 AM MIXING MACHINE OPERATOR Gender Identity Female 06/01/2020 9:42 PM MIXING MACHINE OPERATOR Sexual Orientation Straight 06/01/2020 9: 42 PM MIXING MACHINE OPERATOR 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 She is aware [facility] has the form and will try to sign tonight. She is looking into risk with her valve. * Telephone Encounter - Roselia Fernandez - 07/01/2023 11:44 AM CDT Patient called wanting an update on a clearance letter that was needing to be signed by faxed back to Dr. Camejo's office for her to have knee surgery. documented in this encounter Plan of Treatment Not on file documented as of this encounter Visit Diagnoses Not on filedocumented in this encounter Care Teams Simulation Developer Relationship Specialty Start Date End Date Sanket Waldron DO [address] [place] [id number] PCP - General 05/26/23 documented as of this encounter
--- OUTSIDE RECORDS SUMMARY | 2024-04-01 07:36 | XMS_ITS | Encounter Summary ---
Author Organization [facility] Healthcare Address [address] [place] [address] Care Team Providers Care Sourcing Manager Name Role Phone Jose Lorenzo DO Primary Care Provider [phone] Encounter Details Date Type Department Care Team (Latest Contact Info) Description 05/06/2023 Anticoagulation Visit [facility] Cardiology [address] [place] [address] Penny Wilks, BHAVANA H/O mechanical aortic valve replacement (Primary [...] on file Legal Sex Female 8:13 AM FLIGHT LINE MECHANIC Gender Identity Female 06/01/2020 9:42 PM FLIGHT LINE MECHANIC Sexual Orientation Straight 06/01/2020 9: 42 PM FLIGHT LINE MECHANIC 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 file Not on file Not on file documented as of this encounter Plan of Treatment Not on file documented as of this encounter Procedures Procedure Name Priority Date/Time Associated Diagnosis Comments PROTIME-INR Routine 05/06/2023 documented in this encounter Results * (ABNORMAL) Protime-INR (05/06/2023) INR 3.00(A) 0.9 - 1.1 [facility] Blood us Historical Provider LAB BLOOD ORDERABLES Antonina l Result [facility] documented in this encounter Visit Diagnoses Diagnosis H/O mechanical aortic valve replacement- Primary Chronic anticoagulation Encounter for long-term (current) 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s documented in this encounter Care Teams Sourcing Manager Relationship Specialty Start Date End Date Jose Lorenzo DO PCP - General Family Medicine 09/23/22 05/25/23 documented as of this encounter
--- OUTSIDE RECORDS SUMMARY | 2024-04-01 07:36 | XMS_ITS | Encounter Summary ---
Author Organization [facility] Healthcare Address [address] [place] [address] Care Team Providers Care Product Management Consultant Name Role Phone Jose Lorenzo Primary Care Provider [phone] Encounter Details Date Type Department Care Team (Late st Contact Info) Description 02/09/2023 Telephone [facility] Cardiology [address] [place] [address] Bindu Gaines MD [address] [place] [address] Social History Tobacco Use Types [...] on file Legal Sex Female 8:13 AM ELECTRONIC EQUIPMENT MAINT TECH Gender Identity Female 06/01/2020 9:42 PM ELECTRONIC EQUIPMENT MAINT TECH Sexual Orientation Straight 06/01/2020 9: 42 PM ELECTRONIC EQUIPMENT MAINT TECH 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 * Telephone Encounter - Juany Madrid RN - 02/09/2023 11:29 AM CDT Received WhenSoon message below from pt. Will forward to [facility], please advise. Saw info on B12 and magnesium yesterday, but conflicting info on whether either can be taken with Warfarin? Just want to double check if it???s okay to take or not. Thanks. Emani Donaldson documented in this encounter Plan of Treatment Not on file documented as of this encounter Visit Diagnoses Not on filedocumented in this encounter Care Teams Product Management Consultant Relationship Specialty Start Date End Date Jose Lorenzo DO PCP - General Family Medicine 09/23/22 05/25/23 documented as of this encounter
--- OUTSIDE RECORDS SUMMARY | 2024-04-01 07:36 | XMS_ITS | Encounter Summary ---
Author Organization [facility] Healthcare Address [address] [place] [address] Care Team Providers Care Lieutenant/Deputy Name Role Phone Jose Lorenzo DO Primary Care Provider [phone] Sanket Waldron DO Primary Care Provide r Adrien Camejo MD Unavailable [phone] Encounter Details Date Type Department Care Team (Late st Contact Info) Description 04/27/2023 Orders Only [facility] Information Management [address] [place] [id number] Scanning, Provider Social History Tobacco Use Types [...] on file Legal Sex Female 8:13 AM SOFTWARE VERIFICATION ENGINEER Gender Identity Female 06/01/2020 9:42 PM SOFTWARE VERIFICATION ENGINEER Sexual Orientation Straight 06/01/2020 9: 42 PM SOFTWARE VERIFICATION ENGINEER 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 Not on file Not on file documented as of this encounter Plan of Treatment Not on file documented as of this encounter Procedures Procedure Name Priority Date/Time Associated Diagnosis Comments SCAN - LABS 04/27/2023 documented in this encounter Results * SCAN - LABS (04/27/2023) us Provider Scanning Final Result documented in this encounter Visit Diagnoses Not on filedocumented in this encounter Care Teams Lieutenant/Deputy Relationship Specialty Start Date End Date Jose Lorenzo DO PCP - General Family Medicine 09/23/22 05/25/23 Sanket Waldron DO [address] [place] [id number] PCP - General 05/26/23 Adrien Camejo MD [address] [facility] [address] [place] [address] Consulting Physician Orthopedic Surgery 08/25/23 documented as of this encounter
--- OUTSIDE RECORDS SUMMARY | 2024-04-01 07:36 | XMS_ITS | Encounter Summary ---
Author Organization [facility] Healthcare Address [address] [place] [address] Care Team Providers Care Continuous Miner Name Role Phone Jose Lorenzo DO Primary Care Provider [phone] Encounter Details Date Type Department Care Team (Latest Contact Info) Description 01/16/2023 Anticoagulation Visit [facility] Cardiology [address] [place] [address] Huma Trevizo RN H/O mechanical aortic valve [...] on file Legal Sex Female 8:13 AM OVERLOCK COLLAR SETTER Gender Identity Female 06/01/2020 9:42 PM OVERLOCK COLLAR SETTER Sexual Orientation Straight 06/01/2020 9: 42 PM OVERLOCK COLLAR SETTER 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 Not on file Not on file documented as of this encounter Plan of Treatment Not on file documented as of this encounter Procedures Procedure Name Priority Date/Time Associated Diagnosis Comments PROTIME-INR Routine 01/15/2023 documented in this encounter Results * (ABNORMAL) Protime-INR (01/15/2023) INR 2.90(A) 0.9 - 1.1 EXTERNAL LAB Blood us Historical Provider LAB BLOOD ORDERABLES Antonina l Result EXTERNAL LAB documented in this encounter Visit Diagnoses Diagnosis H/O mechanical aortic valve replacement- Primary Chronic anticoagulation Encounter for long-term (current) 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s documented in this encounter Care Teams Continuous Miner Relationship Specialty Start Date End Date Jose Lorenzo DO PCP - General Family Medicine 09/23/22 05/25/23 documented as of this encounter
--- OUTSIDE RECORDS SUMMARY | 2024-04-01 07:36 | XMS_ITS | Encounter Summary ---
Author Organization [facility] Healthcare Address [address] [place] [address] Care Team Providers Care Wall Mirror Department Supervisor Name Role Phone Jose Lorenzo Primary Care Provider [phone] Encounter Details Date Type Department Care Team (Late st Contact Info) Description 03/18/2023 Telephone [facility] Cardiology [address] [place] [address] Bindu Gaines MD [address] [place] [address] Social History Tobacco Use Types [...] on file Legal Sex Female 8:13 AM CONSERVATION OF RESOURCES COMMISSIONER Gender Identity Female 06/01/2020 9:42 PM CONSERVATION OF RESOURCES COMMISSIONER Sexual Orientation Straight 06/01/2020 9: 42 PM CONSERVATION OF RESOURCES COMMISSIONER 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 Pt reports she will have to get INR lab work done sometime next week. Contact:[phone] ERVATION OF RESOURCES COMMISSIONER documented in this encounter Plan of Treatment Not on file documented as of this encounter Visit Diagnoses Not on filedocumented in this encounter Care Teams Wall Mirror Department Supervisor Relationship Specialty Start Date End Date Jose Lorenzo DO PCP - General Family Medicine 09/23/22 05/25/23 documented as of this encounter
--- OUTSIDE RECORDS SUMMARY | 2024-04-01 07:36 | XMS_ITS | Encounter Summary ---
Author Organization [facility] Healthcare Address [address] [place] [address] Care Team Providers Care Professor Of Early Childhood Education Name Role Phone KonstantinyolandaandreyGeraldine shenchary Phillip THOMPSON Primary Care Provide r Adrien Camejo MD Unavailable [phone] Encounter Details Date Type Department Care Team (Late st Contact Info) Description 08/17/2023 Orders Only [facility] Health Information Management [address] [place] [id number] Scanning, Provider Social History Tobacco Use Types [...] feel afraid or unsafe? 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 Not on file Not on file documented as of this encounter Plan of Treatment Not on file documented as of this encounter Procedures Procedure Name Priority Date/Time Associated Diagnosis Comments SCAN - LABS 08/17/2023 documented in this encounter Results * SCAN - LABS (08/17/2023) us Provider Scanning Final Result documented in this encounter Visit Diagnoses Not on filedocumented in this encounter Care Teams Professor Of Early Childhood Education Relationship Specialty Start Date End Date Sanket Waldron DO [address] [place] [id number] PCP - General 05/26/23 Adrien Camejo MD [address] [address] Consulting Physician Orthopedic Surgery 08/25/23 documented as of this encounter
--- OUTSIDE RECORDS SUMMARY | 2024-04-01 07:36 | XMS_ITS | Encounter Summary ---
Author Organization [facility] Healthcare Address [address] [place] [address] Care Team Providers Care Manager Client Service Name Role Phone Sanket Waldron Primary Care Provide r Encounter Details Date Type Department Care Team (Late st Contact Info) Description 07/29/2023 Telephone [facility] Pre Anesthesia Testing [address] [place] [address] Tiera Damon Social History Tobacco Use Types Packs/Day Years [...] on file Legal Sex Female 8:13 AM DRAWBRIDGE OPERATOR Gender Identity Female 06/01/2020 9:42 PM DRAWBRIDGE OPERATOR Sexual Orientation Straight 06/01/2020 9: 42 PM DRAWBRIDGE OPERATOR 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
--- OUTSIDE RECORDS SUMMARY | 2024-04-01 07:36 | XMS_ITS | Encounter Summary ---
Author Organization [facility] Healthcare Address [address] [place] [address] Care Team Providers Care Veterinary Practice Manager Name Role Phone Sanket Waldron Primary Care Provide r Encounter Details Date Type Department Care Team (Latest Contact Info) Description 06/17/2023 12:16 PM GROOMING ASSISTANT - 06/17/2023 11:59 PM GROOMING ASSISTANT Hospital Encounter [facility] at [address] [phone] Right knee pain, unspecified chronicity Discharge Disposition: Discharge to home or self [...] on file Legal Sex Female 8:13 AM GROOMING ASSISTANT Gender Identity Female 06/01/2020 9:42 PM GROOMING ASSISTANT Sexual Orientation Straight 06/01/2020 9: 42 PM GROOMING ASSISTANT 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 4 tablet/capsul e 3 07/15/2021 4 aspirin 81 mg tablet Take one by mouth one time per day 0 0 12/04/2008 4 atorvastatin (LIPITOR) 20 mg tablet Take 1 tablet by mouth once daily 90 tablet 3 01/15/2023 4 CALCIUM CITRATE ORAL 4 celecoxib (CeleBREX) 200 mg capsule Take 1 capsule (200 mg total) by mouth 2 (two) times a day 60 capsule 12/10/2020 4 cholecalciferol (VITAMIN D-3) 1,000 unit capsule 4 COVID-19 mRNA,[id number] (PFIZER) 30 mcg/0.3 mL suspension for reconstitution 01/24/2021 4 warfarin (COUMADIN) 2 mg tablet Take 2 tablets by mouth once daily 60 tablet 06/02/2023 4 warfarin (COUMADIN) 2.5 mg tablet 07/23/2020 4 documented as of this encounter Discharge Disposition Disposition Code Departure Means Destination Discharge to home or self care documented in this encounter Plan of Treatment Not on file documented as of this encounter Procedures Procedure Name Priority Date/Time Associated Diagnosis Comments XR KNEE RIGHT 4 OR MORE VIEWS Schedule Routine, Read Routine (OP Routine) 06/17/2023 12:32 PM GROOMING ASSISTANT Right knee pain, unspecified chronicity documented in this encounter Results * XR Knee Right 4 or More Views (06/17/2023 12:32 PM GROOMING ASSISTANT) Anatomical Region Laterality Modality Lower Extremities, Knee Right [facility] 06/17/2023 3:45 PM GROOMING ASSISTANT Impressions 06/17/2023 3:45 PM GROOMING ASSISTANT FINDINGS/IMPRESSION: Right knee: There is no acute fracture or dislocation. Tricompartmental osteoarthritis is present and most severe in the medial compartment and medial facet of the patellofemoral compartment where there is moderate joint space narrowing. ??There is no knee joint effusion. ??There is no significant soft tissue swelling. Left knee: There is no acute fracture or dislocation. Tricompartmental osteoarthritis is present and most severe in the medial compartment and medial facet of the patellofemoral compartment where there is advanced joint space narrowing with [id number] contact. ??There is trace knee joint effusion. ??There is no significant soft tissue swelling. Electronically signed by: Serafin Luu MD Narrative 06/17/2023 3:45 PM GROOMING ASSISTANT EXAMINATION: XR KNEE RIGHT 4 OR MORE VIEWS, XR KNEE LEFT 3 VIEWS HISTORY: Rt Knee pain COMPARISON: None. Procedure Note Parish Luu MD - 06/17/2023 EXAMINATION: XR KNEE RIGHT 4 OR MORE VIEWS, XR KNEE LEFT 3 VIEWS HISTORY: Rt Knee pain COMPARISON: None. IMPRESSION: FINDINGS/IMPRESSION: Right knee: There is no acute fracture or dislocation. Tricompartmental osteoarthritis is present and most severe in the medial compartment and medial facet of the patellofemoral compartment where there is moderate joint space narrowing. There is no knee joint effusion. There is no significant soft tissue swelling. Left knee: There is no acute fracture or dislocation. Tricompartmental osteoarthritis is present and most severe in the medial compartment and medial facet of the patellofemoral compartment where there is advanced joint space narrowing with [id number] contact. There is trace knee joint effusion. There is no significant soft tissue swelling. Electronically signed by: Serafin Luu MD us Adrien Camejo MD IMG XR PROCEDURES Final Resu lt documented in this encounter Visit Diagnoses Diagnosis Right knee pain, unspecified chronicity documented in this encounter Care Teams Veterinary Practice Manager Relationship Specialty Start Date End Date Sanket Waldron DO [address] [place] [id number] PCP - General 05/26/23 documented as of this encounter
--- OUTSIDE RECORDS SUMMARY | 2024-04-01 07:36 | XMS_ITS | Encounter Summary ---
Author Organization Formerly [facility] Address [address] [place] [address] Care Team Providers Care Communications Supervisor Name Role Phone KonstantinSanket dolan DO Primary Care Provide r Encounter Details Date Type Department Care Team (Latest Contact Info) Description 08/06/2023 10:15 AM CDT Pre-Admission Testing [facility] Pre Anesthesia Testing [address] [place] [id number] Pre-op evaluation (Primary Dx) Anesthesia Record Procedure Summary Procedure Name Responsible [...] No value filed. 1347 An Stop Meds * Agents No agents on file. * Blood No blood administrations on file. Lines, Drains, and Airways Type Details Placement Removal Peripheral IV Placement Date: 08/24/23; Placement Time: 08; Catheter Size: 20 G; Orientation: Left, Posterior; Location: Hand; Site Prep: Chlorhexidine; Inserted by: BHAVANA Finn; Insertion Attempts: 1; Removal Date: 08/25/23; Removal Time: 08; Removal Reason: Infiltrated 08/24/23 0840 by Oralia Pete RN 08/25/23 0802 by Kalpana Andre RN RETIRED Surgical Site 08/24/23; 1150; Ri ght; Knee; 03/15/24 (Retired LDA, Removed/Completed by [facility] with LDA Utility); 1213 (Retired LDA, Removed/Completed by [facility] with LDA Utility) 08/24/23 1150 by Steve [...] drink containing alc ohol? Monthly or less 08/06/2023 Q2: How many drinks containi ng alcohol do you have on a typical day when you are drinking? 1 or 2 08/06/2023 Q3: How often do you have si x or more drinks on one occasion? 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 Not on file Not on file documented as of this encounter Last Filed Vital Signs Vital Sign Reading Time Taken Comments Blood Pressure 117/52 08/06/2023 10:34 AM CDT Pulse 69 08/06/2023 10:34 AM CDT Temperature - - Respiratory Rate - - Oxygen Saturation 97% 08/06/2023 10:34 AM CDT Inhaled Oxygen Concentration - - Weight 59 kg (130 lb) 08/06/2023 10:34 AM CDT Height 152.4 cm (5') 08/06/2023 10:34 AM CDT Body Mass Index 25.39 08/06/2023 10:34 AM CDT documented in this encounter Miscellaneous Notes * Perioperative Nursing Note - Marilin Javed RN - 08/06/2023 10:15 AM CDT Heber wipe kit and instructions given to patient. Patient verbalizes understanding. * Pre-Procedure Instructions - Chel Zurita NP - 08/06/2023 10:15 AM CDT Pre Operative Instructions for Day of Surgery: (The scheduling department will be contacting you THE DAY PRIOR TO surgery to inform you of surgery time) NOTHING TO EAT after midnight the night before surgery. No smoking or tobacco after midnight. We recommend you Drink a 16 ounce Gatorade or Powerade (not diet). Sips of water are also ok. Theseliquids need to be done at least 3 HOURS prior to the start of your surgery. Take these medications the morning of surgery (if normally taken in the morning): atorvastatin, albuterol as needed Do not take these medications on day of surgery: Blood Thinners: The surgeon and prescriber should tell you if and when you need to stop these medications before surgery: warfarin, aspirin. Antiinflammatories stop at least 7 days prior to surgery: Excedrin, Motrin/Advil (ibuprofen), Aleve(naproxen), Celebrex (celecoxib),diclofenac/voltaren, and Mobic (meloxicam), nabumetone. Tylenol (Acetaminophen) is ok to continue up to the night before surgery STOP the following supplements 7 days before surgery: multivitamin, Vitamin E, fish oil, herbal medicines, and diet pills. It is ok to continue vitamin D,C, calcium, magnesium, iron, zinc etc. NO: Jewelry, make up, hair pins, or contact lenses. Please leave valuables at home or with family. Dentures and hearing aides will be removed in Pre op. BRING: Photo ID card, insurance card. Comfortable clothes (loose pants and tennis shoes). Other: FOLLOW: preoperative skin preparation as directed by nurse. CONTACT: surgeon if there are any changes in your medical condition including any signs or symptomsof infection, upcoming dental or skin procedures, or new medications before surgery. For questions regarding this visit, you may contact NAMRATA Lopez at [phone] documented in this encounter Plan of Treatment Not on file documented as of this encounter Procedures Procedure Name Priority Date/Time Associated Diagnosis Comments HEMOGLOBIN A1C Routine 08/06/2023 12:48 PM CDT Pre-op evaluation EGFR Routine 08/06/2023 12:47 PM CDT Pre-op evaluation COMPREHENSIVE METABOLIC PANEL Routine 08/06/2023 12:47 PM CDT Pre-op evaluation documented in this encounter Results * Hemoglobin A1c (08/06/2023 12:48 PM CDT) Hgb A1C 5.5 4.0 - 5.6 % Estimated Average Glucose 111 mg/dL [facility] Comment: The ADA recommends reporting an estimated Average Glucose (eAG) with all Hemoglobin A1c results using the equation derived from a study of 507 normal and diabetic adults. ??Minority populations were underrepresented and children were not included. ?? (Diabetes Care 31:3744-0220, 2008). ??The eAG is not equivalent to a fasting glucose. Blood 08/06/2023 12:4 8 PM CDT 08/06/2023 12:48 PM CDT us Chel Zurita NP LAB BLOOD ORDERABLES Antonina hernandez Result [facility] [address] Department [place] [address] * eGFR (08/06/2023 12:47 PM CDT) Pathologist [facility] eGFR >90 >=60 mL/min/1. 73 m2 Comment: [...] interpretive data was last reviewed 2021. Blood 08/06/2023 12:4 7 PM CDT 08/06/2023 12:47 PM CDT Chel Zurita NP LAB BLOOD ORDERABLES Antonina hernandez Result [facility] [address] Department of Laboratories [place], [place] [id number] * (ABNORMAL) Comprehensive metabolic panel (08/06/2023 12:47 PM CDT) [facility] Sodium 141 135 - 145 mmol/L Potassium, pl 4.2 3.3 - 4.9 mmol/L [facility] Chloride 105 97 - 110 mmol/L [facility] CO2 29 22 - 32 mmol/L [facility] Anion gap 7 2 - 15 mmol/L [facility] BUN 20 6 - 25 mg/dL [facility] Creatinine 0.57(L) 0.60 - 1.10 mg/dL [facility] Glucose 74 70 - 199 mg/dL [facility] Comment: Interpretive Data Fasting glucose >/= [...] interpretive data was last revised 2022. Calcium 9.3 8.5 - 10.3 mg/dL [facility] Bilirubin, total 0.5 0.1 - 1.2 mg/dL [facility] Protein, pl 7.3 6.5 - 8.5 g/dL [facility] Albumin 4.2 3.5 - 5.0 g/dL [facility] Alk phos 123 40 - 130 Units/L [facility] ALT 26 7 - 45 Units/L [facility] AST 45 10 - 45 Units/L [facility] Blood 08/06/2023 12:4 7 PM CDT 08/06/2023 12:47 PM CDT us Chel Zurita NP LAB BLOOD ORDERABLES Antonina hernandez Result [facility] [address] Department [place] [address] documented in this encounter Visit Diagnoses Diagnosis Pre-op evaluation- Primary documented in this encounter Discontinued Medications Medication Sig Discontinue Reason Start Date End Da te celecoxib (CeleBREX) 200 mg capsule Take 1 capsule (200 mg total) by mouth 2 (two) times a day Error 12/10/2020 08/06/2023 warfarin (COUMADIN) 2.5 mg tablet Error 07/23/2020 08/06/2023 warfarin (COUMADIN) 2 mg tablet Take 2 tablets by mouth once daily Error 07/23/2023 08/06/2023 aspirin 81 mg tablet Take one by mouth one time per day Error 12/04/2008 08/06/2023 atorvastatin (LIPITOR) 20 mg tablet Take 1 tablet by mouth once daily Error 01/15/2023 08/06/2023 amoxicillin (AMOXIL) 500 mg tablet/capsuleIndications: Prophylaxis, Medical Take 4 caps (2000 mg) 1 hour prior to procedure. Error 07/15/2021 08/06/2023 CALCIUM CITRATE ORAL Error 08/06/2023 COVID-19 mRNA,[id number] (Fuel (fuelpowered.com)) 30 mcg/0.3 mL suspension for reconstitution Error 01/24/2021 08/06/2023 cholecalciferol (VITAMIN D-3) 1,000 unit capsule Error 08/06/19 documented as of this encounter Historical Medications * This list may reflect changes made after this encounter. magnesium oxide 400 mg magnesium capsule Take 1 tablet by mouth nightly menthol 4 % gel Apply 1 Application topically as needed calcium carbonate-vitami n D3 (CALTRATE 600 + D) 1500 mg (600 mg elemental) -400 units per tablet Take 1 tablet by mouth every morning aspirin 81 mg enteric coated tablet Take 1 tablet (81 mg total) by mouth every morning cyanocobalamin (Vitamin B-12) 1,000 mcg tabletIndication s:Prevention of Vitamin B12 Deficiency Take 1 tablet (1,000 mcg total) by mouth every morning sodium chloride (OCEAN) 0.65 % nasal spray Administer 1 spray into each nostril as needed artificial tears (ISOPTO TEARS) 0.5 % ophthalmic solution Administer 1 drop into both eyes as needed atorvastatin (LIPITOR) 20 mg tablet Take 1 tablet (20 mg total) by mouth every morning warfarin (COUMADIN) 2 mg tablet Take 1 tablet (2 mg total) by mouth every morning 4 added in this encounter Care Teams Communications Supervisor Relationship Specialty Start Date End Date Sanket Waldron DO [address] [place] [address] PCP - General 05/26/23 documented as of this encounter
--- OUTSIDE RECORDS SUMMARY | 2024-04-01 07:36 | XMS_ITS | Encounter Summary ---
Author Organization [facility] Address [address] [place] [address] Care Team Providers Care Platform Stapler Name Role Phone Jose Lorenzo DO Primary Care Provider [phone] Encounter Details Date Type Department Care Team (Late st Contact Info) Description 12/29/2022 Telephone [facility] Cardiology [address] [place] [address] Bindu Gaines MD [address] [place] [address] Social History Tobacco Use Types [...] on file Legal Sex Female 8:13 AM HOURLY SIGN LANGUAGE INTERPRETER Gender Identity Female 06/01/2020 9:42 PM HOURLY SIGN LANGUAGE INTERPRETER Sexual Orientation Straight 06/01/2020 9: 42 PM HOURLY SIGN LANGUAGE INTERPRETER 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 Gaines expires on 04/12/2023, and there are plenty of visits available. * Telephone Encounter - Penny Wilks RN - 12/29/2022 11:19 AM CDT Just double checking to see if you have the referral from Dr. Lorenzo for my upcoming appointment Jan 07. Thanks, Emani Donaldson Pt sent message in via my chart. Can someone please reach out or respond to her my chart message with an answer? Thank you! documented in this encounter Plan of Treatment Not on file documented as of this encounter Visit Diagnoses Not on filedocumented in this encounter Care Teams Platform Stapler Relationship Specialty Start Date End Date Jose Lorenzo DO PCP - General Family Medicine 09/23/22 05/25/23 documented as of this encounter
--- OUTSIDE RECORDS SUMMARY | 2024-04-01 07:36 | XMS_ITS | Encounter Summary ---
Author Organization [facility] Healthcare Address [address] [place] [address] Care Team Providers Care Local Delivery Truck Driver Name Role Phone Sanket Waldron Primary Care Provide r Encounter Details Date Type Department Care Team (Latest Contact Info) Description 06/08/2023 Anticoagulation Visit [facility] Cardiology [address] [place] [address] Juany Madrid RN H/O mechanical [...] on file Legal Sex Female 8:13 AM PRECISION OPTICAL GOODS WORKER Gender Identity Female 06/01/2020 9:42 PM PRECISION OPTICAL GOODS WORKER Sexual Orientation Straight 06/01/2020 9: 42 PM PRECISION OPTICAL GOODS WORKER 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 Not on file Not on file documented as of this encounter Plan of Treatment Not on file documented as of this encounter Procedures Procedure Name Priority Date/Time Associated Diagnosis Comments PROTIME-INR Routine 06/08/2023 documented in this encounter Results * (ABNORMAL) Protime-INR (06/08/2023) INR 3.40(A) 0.9 - 1.1 EXTERNAL LAB Blood us Historical Provider LAB BLOOD ORDERABLES Antonina l Result EXTERNAL LAB documented in this encounter Visit Diagnoses Diagnosis H/O mechanical aortic valve replacement- Primary Chronic anticoagulation Encounter for long-term (current) 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s documented in this encounter Care Teams Local Delivery Truck Driver Relationship Specialty Start Date End Date Sanket Waldron DO [address] [place] [id number] PCP - General 05/26/23 documented as of this encounter
--- OUTSIDE RECORDS SUMMARY | 2024-04-01 07:36 | XMS_ITS | Encounter Summary ---
Author Organization [facility] Healthcare Address [address] [place] [address] Care Team Providers Care Sweeping Compound Blender Name Role Phone Sanket Waldron Primary Care Provide r Reason for Visit * Reason Onset Date Comments Additional Services Or Orders 07/13/2023 Encounter Details Date Type Department Care Team (Late st Contact Info) Description 07/13/2023 Telephone [facility] Cardiology [address] [place] [phone] Bindu Gaines MD [address] [facility] [address] [place] [address] Additional Services Or Orders Social History Tobacco Use Types Packs/Day Years [...] on file Legal Sex Female 8:13 AM INSPECTOR RAW QUARTZ Gender Identity Female 06/01/2020 9:42 PM INSPECTOR RAW QUARTZ Sexual Orientation Straight 06/01/2020 9: 42 PM INSPECTOR RAW QUARTZ 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 Take 5 mg if INR is > 1.9. 1 tablet 07/13/2023 07/13/2023 documented in this encounter Miscellaneous Notes * Telephone Encounter - Penny Hernandez RN - 07/13/2023 1:04 PM CDT Rx sent in and reviewed with pt. Pt voiced understanding of hoe to take med. * Addendum Note - Penny Hernandez RN - 07/13/2023 12:42 PM CDTAddended by: PENNY HERNANDEZ on: 07/13/2023 12:42 PM Modules accepted: Orders * Telephone Encounter - Bindu Gaines MD - 07/13/2023 9:18 AM CDT Penny-- For the Vitamin K, try ordering phytonadione (vitamin K1). Looks like it comes in 5 mg tablets, so please ask her to take 1/2 tablet (2.5 mg) if her INR is 1.6-1.9 the day prior. Take 5 mg if INR is > 1.9. Thanks. documented in this encounter Plan of Treatment Scheduled Orders Name Type Priority Associated Diagnoses Orde r Schedule Protime-INR Lab Routine H/O mechanical aortic valve replacement Bicuspid aortic valve Chronic anticoagulation Preop examination 52 Occurrences starting 07/13/2023 until 07/12/2024 documented as of this encounter Visit Diagnoses Diagnosis H/O mechanical aortic valve replacement- Primary Bicuspid aortic valve Congenital insufficiency of aortic valve Chronic anticoagulation Encounter for long-term (current) 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s Preop examination Unspecified pre-operative examination documented in this encounter Care Teams Sweeping Compound Blender Relationship Specialty Start Date End Date Sanket Waldron DO [address] [place] [address] PCP - General 05/26/23 documented as of this encounter
--- OUTSIDE RECORDS SUMMARY | 2024-04-01 07:36 | XMS_ITS | Encounter Summary ---
Author Organization [facility] Healthcare Address [address] [place] [address] Care Team Providers Care Bird Sitter Name Role Phone Jose Lorenzo DO Primary Care Provider [phone] Encounter Details Date Type Department Care Team (Latest Contact Info) Description 04/27/2023 Anticoagulation Visit [facility] Cardiology [address] [place] [address] Juany Madrid RN H/O mechanical [...] on file Legal Sex Female 8:13 AM FOREIGN LANGUAGE PROFESSOR Gender Identity Female 06/01/2020 9:42 PM FOREIGN LANGUAGE PROFESSOR Sexual Orientation Straight 06/01/2020 9: 42 PM FOREIGN LANGUAGE PROFESSOR 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 Not on file Not on file documented as of this encounter Plan of Treatment Not on file documented as of this encounter Procedures Procedure Name Priority Date/Time Associated Diagnosis Comments PROTIME-INR Routine 04/27/2023 documented in this encounter Results * (ABNORMAL) Protime-INR (04/27/2023) INR 4.70(A) 0.9 - 1.1 EXTERNAL LAB Blood us Historical Provider LAB BLOOD ORDERABLES Antonina l Result EXTERNAL LAB documented in this encounter Visit Diagnoses Diagnosis H/O mechanical aortic valve replacement- Primary Chronic anticoagulation Encounter for long-term (current) 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s documented in this encounter Care Teams Bird Sitter Relationship Specialty Start Date End Date Jose Lorenzo DO PCP - General Family Medicine 09/23/22 05/25/23 documented as of this encounter
--- OUTSIDE RECORDS SUMMARY | 2024-04-01 07:36 | XMS_ITS | Encounter Summary ---
Author Organization [facility] Address [address] [place] [address] Care Team Providers Care Arch Cushion Skiving Machine Operator Name Role Phone Jose Lorenzo DO Primary Care Provider [phone] Encounter Details Date Type Department Care Team (Latest Contact Info) Description 10/27/2022 Anticoagulation Visit [facility] Cardiology [address] [place] [address] Juany Madrid RN H/O mechanical [...] on file Legal Sex Female 8:13 AM STILL OPERATOR GIN Gender Identity Female 06/01/2020 9:42 PM STILL OPERATOR GIN Sexual Orientation Straight 06/01/2020 9: 42 PM STILL OPERATOR GIN 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 Not on file Not on file documented as of this encounter Plan of Treatment Not on file documented as of this encounter Procedures Procedure Name Priority Date/Time Associated Diagnosis Comments PROTIME-INR Routine 10/27/2022 documented in this encounter Results * (ABNORMAL) Protime-INR (10/27/2022) INR 2.60(A) 0.9 - 1.1 EXTERNAL LAB Blood Historical Provider LAB BLOOD ORDERABLES Edit ed Result - Final EXTERNAL LAB documented in this encounter Visit Diagnoses Diagnosis H/O mechanical aortic valve replacement- Primary Chronic anticoagulation Encounter for long-term (current) 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s documented in this encounter Care Teams Arch Cushion Skiving Machine Operator Relationship Specialty Start Date End Date Jose Lorenzo DO PCP - General Family Medicine 09/23/22 05/25/23 documented as of this encounter
--- OUTSIDE RECORDS SUMMARY | 2024-04-01 07:36 | XMS_ITS | Encounter Summary ---
Author Organization [facility] Healthcare Address [address] [place] [address] Care Team Providers Care Paper Grader Name Role Phone Sanket Waldron Primary Care Provide r Encounter Details Date Type Department Care Team (Latest Contact Info) Description 07/13/2023 Anticoagulation Visit [facility] Cardiology [address] [place] [address] Juany Madrid RN H/O mechanical [...] file Legal Sex Female 8:13 AM SENIOR MOBILE APPLICATION DEVELOPER Gender Identity Female 06/01/2020 9:42 PM SENIOR MOBILE APPLICATION DEVELOPER Sexual Orientation Straight 06/01/2020 9: 42 PM SENIOR MOBILE APPLICATION DEVELOPER 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 Not on file Not on file documented as of this encounter Plan of Treatment Not on file documented as of this encounter Procedures Procedure Name Priority Date/Time Associated Diagnosis Comments PROTIME-INR Routine 07/13/2023 documented in this encounter Results * (ABNORMAL) Protime-INR (07/13/2023) INR 2.30(A) 0.9 - 1.1 EXTERNAL LAB Blood us Historical Provider LAB BLOOD ORDERABLES Antonina l Result EXTERNAL LAB documented in this encounter Visit Diagnoses Diagnosis H/O mechanical aortic valve replacement- Primary Chronic anticoagulation Encounter for long-term (current) 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s documented in this encounter Care Teams Paper Grader Relationship Specialty Start Date End Date Sanket Waldron DO [address] [place] [id number] PCP - General 05/26/23 documented as of this encounter
--- OUTSIDE RECORDS SUMMARY | 2024-04-01 07:36 | XMS_ITS | Encounter Summary ---
Author Organization [facility] Address [address] [place] [address] Care Team Providers Care Tailer In Name Role Phone Jose Lorenzo DO Primary Care Provider Encounter Details Date Type Department Care Team (Late st Contact Info) Description 10/29/2022 Telephone [facility] Cardiology [address] [place] [address] Dat Chauhan MD [address] [facility] [address] [place] [address] Social History Tobacco Use Types [...] on file Legal Sex Female 8:13 AM TRUCK CHAUFFEUR Gender Identity Female 06/01/2020 9:42 PM TRUCK CHAUFFEUR Sexual Orientation Straight 06/01/2020 9: 42 PM TRUCK CHAUFFEUR 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 So I will be needing new order???s for next time I go; which will be . Going in a couple day???s early, because I will be out of town the following week. documented in this encounter Plan of Treatment Scheduled Orders Name Type Priority Associated Diagnoses Orde r Schedule Protime-INR Lab Routine H/O mechanical aortic valve replacement Chronic anticoagulation 52 Occurrences starting 10/29/2022 until 10/30/2023 documented as of this encounter Visit Diagnoses Diagnosis Bicuspid aortic valve- Primary Congenital insufficiency of aortic valve H/O mechanical aortic valve replacement Chronic anticoagulation Encounter for long-term (current) 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s documented in this encounter Care Teams Tailer In Relationship Specialty Start Date End Date Jose Lorenzo DO PCP - General Family Medicine 09/23/22 05/25/23 documented as of this encounter
--- OUTSIDE RECORDS SUMMARY | 2024-04-01 07:36 | XMS_ITS | Encounter Summary ---
Author Organization [facility] Healthcare Address [address] [place] [address] Care Team Providers Care Anchor Operator Name Role Phone KonstantinyolandaSanket pacheco Primary Care Provide r Adrien Camejo MD Unavailable [phone] Encounter Details Date Type Department Care Team (Late st Contact Info) Description 06/08/2023 Orders Only [facility] Health Information Management [address] [place] [address] Scanning, Provider Social History Tobacco Use Types [...] on file Legal Sex Female 8:13 AM BOARD LAYER Gender Identity Female 06/01/2020 9:42 PM BOARD LAYER Sexual Orientation Straight 06/01/2020 9: 42 PM BOARD LAYER 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 Not on file Not on file documented as of this encounter Plan of Treatment Not on file documented as of this encounter Procedures Procedure Name Priority Date/Time Associated Diagnosis Comments SCAN - LABS 06/08/2023 documented in this encounter Results * SCAN - LABS (06/08/2023) us Provider Scanning Final Result documented in this encounter Visit Diagnoses Not on filedocumented in this encounter Care Teams Anchor Operator Relationship Specialty Start Date End Date Sanket Waldron DO [address] [place] [id number] PCP - General 05/26/23 Adrien Camejo MD [address] [facility] [address] [place] [address] Consulting Physician Orthopedic Surgery 08/25/23 documented as of this encounter
--- OUTSIDE RECORDS SUMMARY | 2024-04-01 07:36 | XMS_ITS | Encounter Summary ---
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 Gender Identity Female 06/01/2020 9:42 PM PACKING TRACTOR MACHINE OPERATOR Sexual Orientation Straight 06/01/2020 9: 42 PM PACKING TRACTOR MACHINE OPERATOR 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 Not on file Not on file documented as of this encounter Plan of Treatment Not on file documented as of this encounter Procedures Procedure Name Priority Date/Time Associated Diagnosis Comments PROTIME-INR Routine 03/30/2023 documented in this encounter Results * (ABNORMAL) Protime-INR (03/30/2023) INR 3.10(A) 0.9 - 1.1 EXTERNAL LAB Blood us Historical Provider LAB BLOOD ORDERABLES Antonina l Result EXTERNAL LAB documented in this encounter Visit Diagnoses Diagnosis H/O mechanical aortic valve replacement- Primary Chronic anticoagulation Encounter for long-term (current) 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s documented in this encounter Care Teams Squeegee Operator Relationship Specialty Start Date End Date Jose Lorenzo DO PCP - General Family Medicine 09/23/22 05/25/23 documented as of this encounter
--- OUTSIDE RECORDS SUMMARY | 2024-04-01 07:36 | XMS_ITS | Encounter Summary ---
Author Organization [facility] Address [address] [place] [address] Care Team Providers Care Unit Reactor Operator Name Role Phone Sanket Waldron DO Primary Care Provide r Reason for Referral * Diagnostic Imaging (Routine) - Closed Specialty Diagnoses / Procedures Referred By Chucky acevedo Referred To Contact Diagnoses Left knee pain, unspecified chronicity Procedures XR Knee Left 3 Views Adrien Camejo MD [address] [place] [id number] Phone: tel: fax: [facility] Referral ID Status Reason Start Date Expiration Date Visits Re quested Visits Authorized [id number] Closed 06/17/2023 07/16/2024 1 1 H RANGING CREWMEMBER Reason for Visit * Diagnostic Imaging (Routine) - Closed Specialty Diagnoses / Procedures Referred By Chucky acevedo Referred To Contact Diagnoses Left knee pain, unspecified chronicity Procedures XR Knee Left 3 Views Adrien Camejo MD [address] [place] [id number] Phone: tel: fax: [facility] Referral ID Status Reason Start Date Expiration Date Visits Re quested Visits Authorized [id number] Closed 06/17/2023 07/16/2024 1 1 Encounter Details Date Type Department Care Team (Latest Contact Info) Description 06/17/2023 1:02 PM FLASH RANGING CREWMEMBER - 06/17/2023 11:59 PM FLASH RANGING CREWMEMBER Hospital Encounter [facility] Imaging Center at [address] [phone] Left knee pain, unspecified chronicity Discharge Disposition: Discharge [...] on file Legal Sex Female 8:13 AM FLASH RANGING CREWMEMBER Gender Identity Female 06/01/2020 9:42 PM FLASH RANGING CREWMEMBER Sexual Orientation Straight 06/01/2020 9: 42 PM FLASH RANGING CREWMEMBER 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 on file Not [...] (VITAMIN D-3) 1,000 unit capsule 4 COVID-19 mRNA,[id number] (Greetz) 30 mcg/0.3 mL suspension for reconstitution 01/24/2021 [...] Priority Date/Time Associated Diagnosis Comments XR KNEE LEFT 3 VIEWS Schedule Routine, Read Routine (OP Routine) 06/17/2023 1:17 PM FLASH RANGING CREWMEMBER Left knee pain, unspecified chronicity documented in this encounter Results * XR Knee Left 3 Views (06/17/2023 1:17 PM FLASH RANGING CREWMEMBER) Anatomical Region Laterality Modality Lower Extremities, Knee Left [facility] Imaging 06/17/2023 3:45 PM FLASH RANGING CREWMEMBER Impressions 06/17/2023 3:45 PM FLASH RANGING CREWMEMBER FINDINGS/IMPRESSION: Right knee: There is no acute [...] there is advanced joint space narrowing with lrjj-[id number]-wwkw contact. ??There is trace knee joint effusion. ??There is no significant soft tissue swelling. Electronically signed by: Serafin Luu MD Narrative 06/17/2023 3:45 PM FLASH RANGING CREWMEMBER EXAMINATION: XR KNEE RIGHT 4 OR MORE [...] there is advanced joint space narrowing with hrtk-vm-bhvl contact. There is trace knee joint effusion. There is no significant soft tissue swelling. Electronically signed by: Serafin Luu MD Adrien Camejo MD IMG XR PROCEDURES Final Resu lt documented in this encounter Visit Diagnoses Diagnosis Left knee pain, unspecified chronicity documented in this encounter Care Teams Unit Reactor Operator Relationship Specialty Start Date End Date Sanket Waldron DO [address] [place] [id number] PCP - General 05/26/23 documented as of this encounter
--- OUTSIDE RECORDS SUMMARY | 2024-04-01 07:36 | XMS_ITS | Encounter Summary ---
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 MANAGER INSURANCE Gender Identity Female 06/01/2020 9:42 PM ASSURANCE SENIOR MANAGER INSURANCE Sexual Orientation Straight 06/01/2020 9: 42 PM ASSURANCE SENIOR MANAGER INSURANCE 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 Not on file Not on file documented as of this encounter Plan of Treatment Not on file documented as of this encounter Procedures Procedure Name Priority Date/Time Associated Diagnosis Comments PROTIME-INR Routine 11/20/2022 documented in this encounter Results * (ABNORMAL) Protime-INR (11/20/2022) INR 3.10(A) 0.9 - 1.1 EXTERNAL LAB Blood us Historical Provider LAB BLOOD ORDERABLES Antonina l Result EXTERNAL LAB documented in this encounter Visit Diagnoses Diagnosis H/O mechanical aortic valve replacement- Primary Chronic anticoagulation Encounter for long-term (current) 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s documented in this encounter Care Teams Forestry Aid Relationship Specialty Start Date End Date Jose Lorenzo DO PCP - General Family Medicine 09/23/22 05/25/23 documented as of this encounter
--- OUTSIDE RECORDS SUMMARY | 2024-04-01 07:36 | XMS_ITS | Encounter Summary ---
Author Organization [facility] Healthcare Address [address] [place] [address] Care Team Providers Care Ip Technology Transactions Attorney Name Role Phone Sanket Waldron Primary Care Provide r Encounter Details Date Type Department Care Team (Latest Contact Info) Description 08/17/2023 Anticoagulation Visit [facility] Cardiology [address] [place] [address] Huma Trevizo RN H/O mechanical [...] on file Legal Sex Female 8:13 AM SALES RECRUITING COORDINATOR Gender Identity Female 06/01/2020 9:42 PM SALES RECRUITING COORDINATOR Sexual Orientation Straight 06/01/2020 9: 42 PM SALES RECRUITING COORDINATOR 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 Not on file Not on file documented as of this encounter Plan of Treatment Not on file documented as of this encounter Procedures Procedure Name Priority Date/Time Associated Diagnosis Comments PROTIME-INR Routine 08/17/2023 documented in this encounter Results * (ABNORMAL) Protime-INR (08/17/2023) INR 2.20(A) 0.9 - 1.1 EXTERNAL LAB Blood us Historical Provider LAB BLOOD ORDERABLES Antonina l Result EXTERNAL LAB documented in this encounter Visit Diagnoses Diagnosis H/O mechanical aortic valve replacement- Primary Chronic anticoagulation Encounter for long-term (current) 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s documented in this encounter Care Teams Ip Technology Transactions Attorney Relationship Specialty Start Date End Date Sanket Waldron DO [address] [place] [id number] PCP - General 05/26/23 documented as of this encounter
--- OUTSIDE RECORDS SUMMARY | 2024-04-01 07:36 | XMS_ITS | Encounter Summary ---
Author Organization [facility] Healthcare Address [address] [place] [address] Care Team Providers Care Septic Technician Name Role Phone Sanket Waldron Primary Care Provide r Reason for Visit * Reason Onset Date Comments WArfarin dosing 07/01/2023 Encounter Details Date Type Department Care Team (Late st Contact Info) Description 07/01/2023 Telephone [facility] Cardiology [address] [facility] [address] [place] [phone] Bindu Gaines MD [address] [facility] [address] [place] [address] WArfarin dosing Social History Tobacco Use Types Packs/Day Years [...] on file Legal Sex Female 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 Vit K rx sent in for pt so she can obtain now. Pt will call back a couple weeks prior to her surgery that is scheduled for August 23. We will then call [facility] to schedule an early am Thursday draw of INR the day prior to surgery. Will need to fax INR order. ( Order placed already). Pt has instructions for taking Vit K and will obtain result through portal. * Telephone Encounter - Penny Wilks RN - 07/07/2023 2:57 PM CDT EU can you please clarify the Vit K 3 mg dosing? I can not find it to send in a rx. Thank you ( Pt will be having surgery on a Thursday. She will be going to [facility] to have an INR done on Thursday and we will have to have preset parameters for her for if she needs to take the Vit K- so the RX will have to already be sent in rather than waiting until the day before surgery to see if it is needed based on the INR value) * Telephone Encounter - Penny Wilks RN - 07/07/2023 10:08 AM CDT Pt can go to [facility] and have a planned lab draw done on a Thursday. We will need to call aheadto schedule th lab draw. Pt prefers 7 am or earliest poss lab draw Fax INR order to [phone]. * Telephone Encounter - Penny Wilks RN - 07/02/2023 8:28 AM CDT Message faxed to surgeon and reviewed with pt, sent to pt via my chart. After discussing with pt. Surgeon only does surgery on Thursday and labs are closed on Thursday so willbe difficult to obtain last minute INR. Pt to call surgeon to see what he needs the INR to be to safely so surgery DOS. * Telephone Encounter - Bindu Gaines MD - 07/01/2023 7:42 PM CDT Re: AC for proposed RTKR Looks like the [place] valve is a low risk valve, no other risk factors for thrombosis. No need for bridging. Rec: Stop ASA 7 days prior to procedure Stop warfarin for 4 days prior to procedure INR on day 4, the day prior to surgery; contact surgeon to see if acceptably low (if not, then Vit K 3mg) Surgery on Day 5 Resume warfarin at usual dose on Day 7 documented in this encounter Plan of Treatment Not on file documented as of this encounter Visit Diagnoses Not on filedocumented in this encounter Care Teams Septic Technician Relationship Specialty Start Date End Date Sanket Waldron DO [address] [place] [phone] PCP - General 05/26/23 documented as of this encounter
--- OUTSIDE RECORDS SUMMARY | 2024-04-01 07:36 | XMS_ITS | Encounter Summary ---
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 Gender Identity Female 06/01/2020 9:42 PM EXPLOSIVES TRUCK DRIVER Sexual Orientation Straight 06/01/2020 9: 42 PM EXPLOSIVES TRUCK DRIVER 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 Not on file Not on file documented as of this encounter Plan of Treatment Not on file documented as of this encounter Procedures Procedure Name Priority Date/Time Associated Diagnosis Comments SCAN - LABS 07/20/2023 documented in this encounter Results * SCAN - LABS (07/20/2023) us Provider Scanning Final Result documented in this encounter Visit Diagnoses Not on filedocumented in this encounter Care Teams Chain Tender Relationship Specialty Start Date End Date Sanket Waldron DO [address] [place] [phone] PCP - General 05/26/23 Adrien Camejo MD [address] [facility] [address] [place] [address] Consulting Physician Orthopedic Surgery 08/25/23 documented as of this encounter
--- OUTSIDE RECORDS SUMMARY | 2024-04-01 07:36 | XMS_ITS | Encounter Summary ---
Author Organization [facility] Address [address] [facility] [address] [place] [address] Care Team Providers Care Bit Sharpener Operator Name Role Phone Jose Lorenzo DO Primary Care Provider [phone] Encounter Details Date Type Department Care Team (Late st Contact Info) Description 12/19/2022 Telephone [facility] Cardiology [address] [place] [address] Bindu Gaines MD [address] [place] [address] Social History Tobacco Use Types [...] on file Legal Sex Female 8:13 AM DRAPERY SUPERVISOR Gender Identity Female 06/01/2020 9:42 PM DRAPERY SUPERVISOR Sexual Orientation Straight 06/01/2020 9: 42 PM DRAPERY SUPERVISOR 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 Guess I'll be back on it starting Sat. the 9th. Was hoping this time it would have helped. Love the note you sent. I do like to do reviews and send good messages rather than not so good ones. See you in a couple weeks. Will forward to [facility] as FYI. documented in this encounter Plan of Treatment Not on file documented as of this encounter Visit Diagnoses Not on filedocumented in this encounter Care Teams Bit Sharpener Operator Relationship Specialty Start Date End Date Jose Lorenzo DO PCP - General Family Medicine 09/23/22 05/25/23 documented as of this encounter
--- OUTSIDE RECORDS SUMMARY | 2024-04-01 07:36 | XMS_ITS | Encounter Summary ---
Author Organization [facility] Address [address] [place] [address] Care Team Providers Care Instant Potato Processor Name Role Phone Jose Lorenzo DO Primary Care Provider [phone] Reason for Referral * Cardiology (Routine) - Closed Specialty Diagnoses / Procedures Referred By Chucky acevedo Referred To Contact Diagnoses H/O mechanical aortic valve replacement Procedures Transthoracic Echo (TTE) Complete W Doppler/CF Bindu Santamaria MD Phone: tel: fax: [facility] Referral ID Status Reason Start Date Expiration Date Visits Re quested Visits Authorized [id number] Closed 01/07/2023 02/06/2024 1 1 Reason for Visit * Reason Comments Annual Exam * Consultation (Routine) - Closed Specialty Diagnoses / Procedures Referred By Chucky acevedo Referred To Contact Cardiology Diagnoses Presence of prosthetic heart valve Jose Lorenzo DO Phone: tel: fax: Bindu Santamaria MD [address] [address] Phone: tel: fax: Referral ID Status Reason Start Date Expiration Date V isits Requested Visits Authorized [id number] Closed Specialty Services Required 09/25/2022 04/12/2023 15 15 Encounter Details Date Type Department Care Team (Late st Contact Info) Description 01/07/2023 11:30 AM CDT Office Visit [facility] Cardiology [address] [place] [address] Bindu Santamaria MD [address] [place] [address] H/O mechanical aortic valve replacement (Primary Dx); Presence of prosthetic heart valve; Bicuspid aortic valve; Chronic anticoagulation; Bilateral sciatica; Lipid screening Social History Tobacco Use Types Packs/Day Years [...] file Legal Sex Female 8:13 AM FOOD CHECKER Gender Identity Female 06/01/2020 9:42 PM FOOD CHECKER Sexual Orientation Straight 06/01/2020 9: 42 PM FOOD CHECKER 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 Industry Job Start Date Job End Date 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 on file Not on file Not on file documented as of this encounter Last Filed Vital Signs Vital Sign Reading Time Taken Comments Blood Pressure 120/72 01/07/2023 12:04 PM CDT Pulse 76 01/07/2023 12:04 PM CDT Temperature - - Respiratory Rate - - Oxygen Saturation 97% 01/07/2023 12:04 PM CDT Inhaled Oxygen Concentration - - Weight 60.8 kg (134 lb) 01/07/2023 12:04 PM CDT Height 154.9 cm (5' 1 ) 01/07/2023 12:04 PM CDT Body Mass Index 25.32 01/07/2023 12:04 PM CDT documented in this encounter Patient Instructions * Patient Instructions* Bindu Santamaria MD - 01/07/2023 11:30 AM CDT Total cholesterol 167, HDL 58, TG 139, LDL 81, glucose 81 documented in this encounter Progress Notes * Bindu Santamaria MD - 01/07/2023 11:30 AM CDT [facility] DATE OF VISIT: 01/07/2023 DATE: 1955 CHIEF COMPLAINT Chief Complaint Patient presents with Annual Exam FU AVR HPI 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 Guthrie in 2008. Has not had involvement of her ascending aorta. She is chronically anticoagulated. She is aware of need for SBE antibiotic prophylaxis prior to dental work and nonsterile procedures. History of hyperlipidemia. 12/10/[address] Santamaria: No heart troubles, not much TRINH. No bleeding. Sciatica has been a problem this year, has LLE numbness, has lost bslance and fallen this year. Sees pain Management. Now takes Celebrex. Retired in January but went back to work part-time. 01/07/2022 OV with NAMRATA Fan: She is here for annual follow-up. She has noted cardiac complaints or concerns. She denies any bleeding problems. She is dealing with chronic pain which is worse in theleft hip and gluteal area ever since she had a bout of sciatica 3 years ago. She also has arthritispain in other parts of the body. She recently saw a neurologist for further evaluation and is also s eeing pain management. She remains on Celebrex. She was retired for a few months but then went backto work. Stable, continue same. 01/07/[address] Santamaria: A little TRINH w/ stairs. No bleeding. Cont to have a lot pain and myalgias. Infreq LE edema. Staying off atorvastatin didn't help. Saw an neuromuscular MD, no dx. Some spinal stenosis and budging discs. Uses a walking stick to get around. Swims 3X/week. Follows SBE prophylaxis guidelines. Disabled son lives w/ them; having trouble finding a psychiatrist to help w/ his care. Anticoagulation visits reviewed, INR was 3 0.0 earlier this month, therapeutic. POC lipids as below. Echo reviewed. 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 Her son in mid-'s is also severely disabled, and moved into a nursing home but it didn't work out and now is back home. Her mother, with whom shewas not close, April 2012, and her uncle also around that same time. MEDICAL HISTORY Past Medical History: Diagnosis Date Arthritis Asthma Asthma Cataract diagnosed 2019 Depression supposedly; but feel it's a misdiagnosis. Eczema eczema GERD (gastroesophageal reflux disease) at least 10 years Heart disease HX OTHER MEDICAL diverticulosis Mitral valve prolapse Myalgia Neuromuscular disorder (HCC) Have had sciatica for 17 months. Social History Tobacco Use Smoking status: Never Smoker Smokeless tobacco: Never Used Substance Use Topics Alcohol use: Yes Alcohol/week: 1.0 - 2.0 standard drink Types: 1 - 2 Glasses of wine per week Comment: socially Drug use: Never Family History Problem Relation Age of Onset Other Father AL age 50, CABG; Heart attack Father Arthritis Father Hearing loss Father Other (brain tumor) Sister Other Mother H/O CVA, 2012; Stroke Mother Vision loss Mother Clotting disorder Mother Other Sister MVP; Cancer Sister Arthritis Sister Diabetes Sister Arthritis Sister defects Son Developmental delay Son Hyperlipidemia Son Vision loss Son MEDICATIONS Current Outpatient Medications: albuterol HFA (ProAir HFA) 90 mcg/actuation inhaler, Inhale 2 puffs every 4 (four) hours as needed for wheezing, Disp: 1 Inhaler, Rfl: 1 aspirin 81 mg tablet, Take one by mouth one time per day, Disp: 0, Rfl: 0 atorvastatin (LIPITOR) 20 mg tablet, Take 1 tablet (20 mg total) by mouth daily, Disp: 90 tablet, Rfl: 1 CALCIUM CITRATE ORAL, , Disp: , Rfl: celecoxib (CeleBREX) 200 mg capsule, Take 1 capsule (200 mg total) by mouth 2 (two) times a day, Disp: 60 capsule, Rfl: 0 cholecalciferol (VITAMIN D-3) 1,000 unit capsule, , Disp: , Rfl: gabapentin (NEURONTIN) 300 mg capsule, Take 1 capsule (300 mg total) by mouth 2 (two) times a day, Disp: , Rfl: LATANOPROST OPHT, , Disp: , Rfl: warfarin (COUMADIN) 2 mg tablet, Take 2 tablets by mouth once daily, Disp: 60 tablet, Rfl: 3 warfarin (COUMADIN) 2.5 mg tablet, , Disp: , Rfl: amoxicillin (AMOXIL) 500 mg tablet/capsule, Take 4 caps (2000 mg) 1 hour prior to procedure. (Patient not taking: Reported on 01/07/2023), Disp: 4 tablet/capsule, Rfl: 3 COVID-19 mRNA,[id number] ([employer]) 30 mcg/0.3 mL suspension for reconstitution, , Disp: , Rfl: ALLERGIES Allergies Allergen Reactions Pregabalin Unknown and Rash REVIEW OF SYSTEMS Review of Systems Constitutional: Negative for malaise/fatigue. HENT: Negative for congestion. Eyes: Negative for visual disturbance. Cardiovascular: Negative for chest pain, dyspnea on exertion and syncope. Respiratory: Negative for shortness of breath. Hematologic/Lymphatic: Negative for bleeding problem. Musculoskeletal: Positive for back pain and joint pain. Gastrointestinal: Negative for abdominal pain. Genitourinary: Negative for hematuria. Neurological: Positive for numbness. Negative for dizziness. Psychiatric/Behavioral: Negative for depression. PHYSICAL EXAM Blood pressure 120/72, pulse 76, height 154.9 cm (5' 1 ), weight 60.8 kg (134 lb), SpO2 97 %. Body mass index is 25.32 kg/m??. Physical Exam Constitutional: Appearance: Normal appearance. She is well-developed. Comments: Very pleasant lady in NAD. Neck: Thyroid: No thyromegaly. Vascular: No carotid bruit. Cardiovascular: Rate and Rhythm: Normal rate and regular rhythm. Pulses: Carotid pulses are 2+ on the right side and 2+ on the left side. Heart sounds: Murmur (1/6 PETE LUSB, crips valve click) heard. Pulmonary: Effort: Pulmonary effort is normal. No respiratory distress. Breath sounds: Normal breath sounds. Abdominal: General: There is no distension. Palpations: Abdomen is soft. Musculoskeletal: General: No swelling. Skin: General: Skin is warm and dry. Neurological: Mental Status: She is alert and oriented to person, place, and time. Psychiatric: Mood and Affect: Mood normal. Behavior: Behavior normal. LABS AND OTHER DIAGNOSTIC TESTS Lab Results Component Value Date WBC 4.5 08/30/2021 HGB 13.1 08/30/2021 HCT 38.9 08/30/2021 MCV 95.6 08/30/2021 Chemistry Component Value Date/Time SODIUM 145 07/31/2020 0649 POTASSIUM 4.5 07/31/2020 0649 CHLORIDE 108 07/31/2020 0649 CO2 28 07/31/2020 0649 BUNSER 33 (H) 07/31/2020 0649 CREATININE 0.56 07/31/2020 0649 GLUCOSE 111 (H) 07/31/2020 0649 Component Value Date/Time CALCIUM 8.8 07/31/2020 0649 ALKPHOS 92 07/31/2020 0649 AST 40 (H) 07/31/2020 0649 ALT 26 07/31/2020 0649 BILITOT 0.5 07/31/2020 0649 Lab Results Component Value Date CHOL 227 (H) 08/31/2012 Lab Results Component Value Date GLUCOSE 111 (H) 07/31/2020 CALCIUM 8.8 07/31/2020 SODIUM 145 07/31/2020 POTASSIUM 4.5 07/31/2020 CO2 28 07/31/2020 CHLORIDE 108 07/31/2020 BUNSER 33 (H) 07/31/2020 CREATININE 0.56 07/31/2020 Lab Results Component Value Date HDL 56 08/31/2012 LDL Date Value Ref Range Status 08/31/2012 144 (H) <130 mg/dl Comment: Desirable range <100 mg/dL for patients with CHD or diabetes and <70 mg/dL for diabetic patients with known heart disease. ] No results found for: LDLCALC Lab Results Component Value Date TRIG 133 08/31/2012 Lab Results Component Value Date CHOLHDL 4.1 08/31/2012 Lab Results Component Value Date INR 3.00 (A) 12/18/2022 INR 3.10 (A) 11/20/2022 INR 2.60 (A) 10/27/202208/2015 cholesterol 221, LDL 146, creatinine 0.7, potassium normal, hematocrit 39 10/2016 POC lipids: TC 230, TG 179, LDL 128, HDL 67 10/2017 POC lipids: TC 243, TG 103, LDL 161, HDL 61 12/10/2020 POC lipids: Total cholesterol 168, HDL 53, TG 166, LDL 83, glucose 101 on atorvastatin 20 mg daily. 01/07/2023 POC lipids: Total cholesterol 167, HDL 58, TG 139, LDL 81, glucose 81 Echos: 2008: EF 71%, LVH, diast. dysfxn, LYNSEY 0.5-0.6 cm2, mild AI peak grad 63, mean grad 37 mmHg --> Aortic valve replacement, 19 mm Sutherland valve 2008: EF 63%, LYNSEY 1.0-1.1 cm2, [...] grad 10 mmHg, mildly dilated asc aorta ASSESSMENT Diagnoses and all orders for this visit: H/O mechanical aortic valve replacement (Primary) - Transthoracic Echo (TTE) Complete W Doppler/CF; Future Presence of prosthetic heart valve - Ambulatory referral to Cardiology Bicuspid aortic valve Chronic anticoagulation Bilateral sciatica S/P aortic valve replacement with mechanical prosthesis: Patient is doing well 14 years after her mechanical mitral valve replacement for severe and a bicuspid aortic valve. Has not had any involvement of her ascending aorta. Compliant with INR follow-up; last INR was therapeutic. No bleeding problems. Compliant with SBE prophylaxis. --Echo --Cont w/ Coumadin Clinic --Cautioned about GI bleeding when combining warfarin plus aspirin plus Celebrex Hyperlipidemia: Has high cholesterol, much improved on atorvastatin, blood pressure is doing fine, no hypertension. Does have a family history of CAD but no signs or symptoms of CAD herself. Chronic pain: Main problem is her sciatica and chronic pain. PLAN/RECOMMENDATIONS Follow-up in 1 year, sooner if needed Bindu Santamaria MD, [facility] Office: [phone] or [phone] This note is dictated and transcribed by with assistance from [employer]. Sprue Cutting Press Operator variances may occur. Despite proofreading, typographical errors may occur. documented in this encounter Miscellaneous Notes * Addendum Note - Sandor Johnson MA - 01/07/2023 11:30 AM CDTAddended by: SANDOR JOHNSON on: 01/07/2023 02:49 PM Modules accepted: Orders documented in this encounter Plan of Treatment Not on file documented as of this encounter Procedures Procedure Name Priority Date/Time Associated Diagnosis Comments POCT LIPID PANEL Routine 01/07/2023 2:46 PM CDT Lipid screening documented in this encounter Results * TRANSTHORACIC ECHO (TTE) COMPLETE W DOPPLER/CF WO CONTRAST (03/04/2023 10:06 AM FOOD CHECKER) Anatomical Region Laterality Modality Ultrasound 03/04/2023 9:46 AM FOOD CHECKER Narrative 03/04/2023 12:25 PM FOOD CHECKER [facility] Cardiology [address], [place] [address] [address], [address], [place] [address] P:[phone] P:[phone] Echocardiographic Report Patient Name: EYSSY NIXON M : 1955 Study Date: 03/04/2023 9:46:23 AM Gender: F Tech: NATASHA Location: [place] Ref Provider: BINDU SANTAMARIA ?Height(Cm): 155 BSA: 1.62 Weight(Kg): 60.8 Heart Rate: 76 BP: 100 / 70 Quality: Good Order Provider: BINDU SANTAMARIA PROCEDURES: Echocardiographic Report: Transthoracic echocardiogram with complete 2D, M-Mode, and color Doppler examination. With Strain Analysis. INDICATIONS: Aortic Valve Replacement. Measurements: 2D/M Mode ?Doppler Measurement ?Value ?Normal Range ?Measurement ?Value ?Normal Range LVIDd 2D ? 4.11 ? [ 3.90 - 5.30 ] cm ?LYNSEY Vmax ? 1.56 ? [ 2.00 - 4.00 ] cm2 LVIDs 2D ? 2.21 ? [ 2.30 - 3.90 ] cm ?AV Mean PG ? 8 ?mmHg LVPWd 2D ? 0.96 ? [ 0.60 - 1.00 ] cm ?AV Peak Alvaro ?1.87 ? m/s IVSd 2D ?1.02 ? [ 0.60 - 0.90 ] cm ?AV Peak PG ? 14 ? mmHg LA Volume Index ?22 ? [ 16 - 28 ] cc/m2 ? AV VTI ? 38.35 ?cm LVOT Diam ?2.02 ?[ 1.70 - 2.10 ] cm LVOT Peak Alvaro ?0.91 ?[ 0.70 - 1.10 ] m/s LVOT VTI ? 19.58 ? cm MV E Peak Alvaro ?0.53 ?[ 0.60 - 1.30 ] m/s MV A Peak Alvaro ?0.72 ?[ 0.40 - 0.80 ] m/s MV Decel Time ?201 ? [ 150 - 200 ] msec TR Peak Alvaro ?2.18 ?m/s TR Peak PG ? 19 ?mmHg Lateral E` ? 0.10 ?m/s E` ? 0.07 ?m/s E/E` ? 6 Measurement ?Value ?Normal Range ?Measurement ?Value ?Normal Range 2D/M Mode ?Doppler - FINDINGS: Interpretation Site: Exam was interpreted at [facility]. Left Ventricle: Normal left ventricular size. Left ventricular wall thickness upper limits of normal. Normal global left ventricular systolic function. Impaired diastolic relaxation Grade I. Ejection fraction is visually estimated at 60 %. Global Longitudinal Strain is - 18 %. Right Ventricle: Normal right ventricular size. Normal right ventricular systolic function. Left Atrium: The left atrium is normal in size. Right Atrium: The right atrium is normal in size. Atrial Septum: Normal atrial septum. Mitral Valve: Normal appearance of the mitral valve. No mitral valve regurgitation is seen. Aortic Valve: S/P SAVR with [address] Skip Sutherland prosthesis. Peak Velocity of 1.70 m/s. Mean gradient of 7.0 mmHg. Gradients normal for valve type and size. Tricuspid Valve: Normal appearance of the tricuspid valve. Estimated peak RVSP is 27 mmHg. Mild tricuspid regurgitation. Pulmonic Valve: Pulmonic valve not well visualized. Trivial regurgitation in the pulmonic valve. Pericardium: Normal pericardium with no significant pericardial effusion. Aorta: Normal aortic root. IVC: Normal size and normal respiratory collapse consistent with normal right atrial pressure (<5 mmHg). CONCLUSIONS: Normal left ventricular size. LV wall thickness upper limits of normal. Normal global left ventricular systolic function. Impaired diastolic relaxation Grade I. Ejection fraction about 60 %. Global Longitudinal Strain is -18 %. Normal RV size and systolic function. Normal appearance of the mitral valve. No significant MR. S/P SAVR with [address] Skip Sutherland prosthesis. Peak Velocity 1.70 m/s. Mean gradient 7 mmHg. Gradients normal for valve type and size. RVSP 27 mmHg. Trivial to mild tricuspid regurgitation. Electronically Signed By: Peng Ann MD, [facility] 2023-03-04 12:24:47 FOOD CHECKER Procedure Note Peng Ann MD - 03/04/2023 [facility] Cardiology [address], [place] [address] [address], [place] [address] P:[phone] P:[phone] Echocardiographic Report Patient Name: YESSY NIXON M : 1955 Study Date: 03/04/2023 9:46:23 AM Gender: F Tech: NATASHA Location: [place] Ref Provider: BINDU SANTAMARIA Height(Cm): 155 BSA: 1.62 Weight(Kg): 60.8 Heart Rate: 76 BP: 100 / 70 Quality: Good Order Provider: BINDU SANTAMARIA PROCEDURES: Echocardiographic Report: Transthoracic echocardiogram with complete 2D, M-Mode, and color Dopplerexamination. With Strain Analysis. INDICATIONS: Aortic Valve Replacement. Measurements: 2D/M ModeDoppler Measurement Value Normal Range MeasurementValue Normal Range LVIDd 2D 4.11 [ 3.90 - 5.30 ] cm LYNSEY Vmax1.56 [ 2.00 - 4.00 ] cm2 LVIDs 2D 2.21 [ 2.30 - 3.90 ] cm AV Mean PG8 mmHg LVPWd 2D 0.96 [ 0.60 - 1.00 ] cm AV Peak Vel1.87 m/s IVSd 2D 1.02 [ 0.60 - 0.90 ] cm AV Peak PG14 mmHg LA Volume Index 22 [ 16 - 28 ] cc/m2 AV VTI38.35 cm LVOT Diam 2.02 [ 1.70 - 2.10 ] cm LVOT Peak Alvaro 0.91 [ 0.70 - 1.10 ] m/s LVOT VTI 19.58 cm MV E Peak Alvaro 0.53 [ 0.60 - 1.30 ] m/s MV A Peak Alvaro 0.72 [ 0.40 - 0.80 ] m/s MV Decel Time 201 [ 150 - 200 ] msec TR Peak Alvaro 2.18 m/s TR Peak PG 19 mmHg Lateral E` 0.10 m/s E` 0.07 m/s E/E` 6 Measurement Value Normal Range MeasurementValue Normal Range 2D/M ModeDoppler - FINDINGS: Interpretation Site: Exam was interpreted at [facility]. Left Ventricle: Normal left ventricular size. Left ventricular wall thickness upper limitsof normal. Normal global left ventricular systolic function. Impaired diastolicrelaxation Grade I. Ejection fraction is visually estimated at 60 %. Global LongitudinalStrain is - 18 %. Right Ventricle: Normal right ventricular size. Normal right ventricular systolicfunction. Left Atrium: The left atrium is normal in size. Right Atrium: The right atrium is normal in size. Atrial Septum: Normal atrial septum. Mitral Valve: Normal appearance of the mitral valve. No mitral valve regurgitation isseen. Aortic Valve: S/P SAVR with [address] Skip Sutherland prosthesis. Peak Velocity of 1.70 m/s. Mean gradient of 7.0 mmHg. Gradients normal forvalve type and size. Tricuspid Valve: Normal appearance of the tricuspid valve. Estimated peak RVSP is 27 mmHg.Mild tricuspid regurgitation. Pulmonic Valve: Pulmonic valve not well visualized. Trivial regurgitation in the pulmonicvalve. Pericardium: Normal pericardium with no significant pericardial effusion. Aorta: Normal aortic root. IVC: Normal size and normal respiratory collapse consistent with normal rightatrial pressure (<5 mmHg). CONCLUSIONS: Normal left ventricular size. LV wall thickness upper limits of normal.Normal global left ventricular systolic function. Impaired diastolic relaxation Grade I.Ejection fraction about 60 %. Global Longitudinal Strain is -18 %. Normal RV size and systolic function. Normal appearance of the mitral valve. No significant MR. S/P SAVR with [address] Skip Sutherland prosthesis. Peak Velocity 1.70m/s. Mean gradient 7 mmHg. Gradients normal for valve type and size. RVSP 27 mmHg. Trivial to mild tricuspid regurgitation. Electronically Signed By: Peng Ann MD, [facility] 2023-03-04 12:24:47 FOOD CHECKER us Bindu Santamaria MD CV ECHO PROCEDURES Final Re sult * POCT lipid panel (01/07/2023 2:46 PM CDT) Cholesterol, POC 167 mg/dL HDL, POC 58 mg/dL Triglycerides, POC 139 mg/dL LDL Cholesterol POC 81 mg/dL Chol/HDL Ratio, POC 1.4 Non-HDL Cholesterol, POC 109 mg/dL Cholesterol Total, POC 167 mg/dL Capillary blood 01/07/2023 2 :46 PM CDT Bindu Santamaria MD POINT OF CARE TEST ORDERABL ES Edited Result - Final documented in this encounter Visit Diagnoses Diagnosis H/O mechanical aortic valve replacement- Primary Presence of prosthetic heart valve Bicuspid aortic valve Congenital insufficiency of aortic valve Chronic anticoagulation Encounter for long-term (current) 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s Bilateral sciatica Sciatica Lipid screening Screening for lipoid disorders H/O mechanical aortic valve replacement documented in this encounter Orders Outpatient Referral Count Last Ordered Date Fir st Ordered Date AMB REFERRAL TO CARDIOLOGY 1 01/07/2023 documented in this encounter Care Teams Instant Potato Processor Relationship Specialty Start Date End Date Jose Lorenzo DO PCP - General Family Medicine 09/23/22 05/25/23 documented as of this encounter
--- OUTSIDE RECORDS SUMMARY | 2024-04-01 07:36 | XMS_ITS | Encounter Summary ---
Author Organization [facility] Address [address] [place] [address] Care Team Providers Care Color Straining Bag Washer Name Role Phone Jose Lorenzo DO Primary Care Provider [phone] Encounter Details Date Type Department Care Team (Latest Contact Info) Description 02/13/[address] 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 Not on file Not on file documented as of this encounter Plan of Treatment Not on file documented as of this encounter Procedures Procedure Name Priority Date/Time Associated Diagnosis Comments PROTIME-INR Routine 02/12/2023 documented in this encounter Results * (ABNORMAL) Protime-INR (02/12/2023) INR 3.10(A) 0.9 - 1.1 EXTERNAL LAB Blood us Historical Provider LAB BLOOD ORDERABLES Antonina l Result EXTERNAL LAB documented in this encounter Visit Diagnoses Diagnosis H/O mechanical aortic valve replacement- Primary Chronic anticoagulation Encounter for long-term (current) 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s documented in this encounter Care Teams Color Straining Bag Washer Relationship Specialty Start Date End Date Jose Lorenzo DO PCP - General Family Medicine 09/23/22 05/25/23 documented as of this encounter
--- OUTSIDE RECORDS SUMMARY | 2024-04-01 07:36 | XMS_ITS | Encounter Summary ---
Author Organization [facility] Healthcare Address [address] [place] [address] Care Team Providers Care Will Call Clerk Name Role Phone Sanket Waldron Primary Care Provide r Encounter Details Date Type Department Care Team (Latest Contact Info) Description 07/06/2023 Anticoagulation Visit [facility] Cardiology [address] [place] [address] Huma Trevizo RN H/O mechanical [...] on file Legal Sex Female 8:13 AM PROFESSIONAL ENGINEER Gender Identity Female 06/01/2020 9:42 PM PROFESSIONAL ENGINEER Sexual Orientation Straight 06/01/2020 9: 42 PM PROFESSIONAL ENGINEER 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 file Not on file Not on file documented as of this encounter Plan of Treatment Not on file documented as of this encounter Procedures Procedure Name Priority Date/Time Associated Diagnosis Comments PROTIME-INR Routine 07/06/2023 documented in this encounter Results * (ABNORMAL) Protime-INR (07/06/2023) INR 2.30(A) 0.9 - 1.1 EXTERNAL LAB Blood us Historical Provider LAB BLOOD ORDERABLES Antonina l Result EXTERNAL LAB documented in this encounter Visit Diagnoses Diagnosis H/O mechanical aortic valve replacement- Primary Chronic anticoagulation Encounter for long-term (current) 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s documented in this encounter Care Teams Will Call Clerk Relationship Specialty Start Date End Date Sanket Waldron DO [address] [place] [id number] PCP - General 05/26/23 documented as of this encounter
--- OUTSIDE RECORDS SUMMARY | 2024-04-01 07:36 | XMS_ITS | Encounter Summary ---
Author Organization [facility] Healthcare Address [address] [place] [address] Care Team Providers Care Lithographic Press Operator Name Role Phone Sanket Waldron Primary Care Provide r Encounter Details Date Type Department Care Team (Late st Contact Info) Description 07/13/[address] 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
--- OUTSIDE RECORDS SUMMARY | 2024-04-01 07:36 | XMS_ITS | Encounter Summary ---
Author Organization [facility] Healthcare Address [address] [place] [address] Care Team Providers Care Kier Boiler Name Role Phone Jose Lorenzo Primary Care Provider [phone] Encounter Details Date Type Department Care Team (Latest Contact Info) Description 03/20/2023 Anticoagulation Visit [facility] Medical Group Cardiology [address] [place] [address] Juany Madrid RN H/O mechanical [...] on file Legal Sex Female 8:13 AM FILES SUPERVISOR Gender Identity Female 06/01/2020 9:42 PM FILES SUPERVISOR Sexual Orientation Straight 06/01/2020 9: 42 PM FILES SUPERVISOR 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 Not on file Not on file documented as of this encounter Plan of Treatment Not on file documented as of this encounter Procedures Procedure Name Priority Date/Time Associated Diagnosis Comments PROTIME-INR Routine 03/20/2023 documented in this encounter Results * (ABNORMAL) Protime-INR (03/20/2023) INR 5.90(A) 0.9 - 1.1 EXTERNAL LAB Blood us Historical Provider LAB BLOOD ORDERABLES Antonina l Result EXTERNAL LAB documented in this encounter Visit Diagnoses Diagnosis H/O mechanical aortic valve replacement- Primary Chronic anticoagulation Encounter for long-term (current) 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s documented in this encounter Care Teams Kier Boiler Relationship Specialty Start Date End Date Jose Lorenzo DO PCP - General Family Medicine 09/23/22 05/25/23 documented as of this encounter
--- OUTSIDE RECORDS SUMMARY | 2024-04-01 07:36 | XMS_ITS | Encounter Summary ---
Author Organization [facility] Healthcare Address [address] [place] [address] Care Team Providers Care Development Coordinator Name Role Phone Sanket Waldron Primary Care Provide r Adrien Camejo MD Unavailable [phone] Encounter Details Date Type Department Care Team (Late st Contact Info) Description 07/13/2023 Orders Only [facility] Health Information Management [address] [place] [address] Scanning, Provider Social History Tobacco Use Types [...] on file Legal Sex Female 8:13 AM AUTOCAD OPERATOR Gender Identity Female 06/01/2020 9:42 PM AUTOCAD OPERATOR Sexual Orientation Straight 06/01/2020 9: 42 PM AUTOCAD OPERATOR 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 Not on file Not on file documented as of this encounter Plan of Treatment Not on file documented as of this encounter Procedures Procedure Name Priority Date/Time Associated Diagnosis Comments SCAN - LABS 07/13/2023 documented in this encounter Results * SCAN - LABS (07/13/2023) us Provider Scanning Final Result documented in this encounter Visit Diagnoses Not on filedocumented in this encounter Care Teams Development Coordinator Relationship Specialty Start Date End Date Sanket Waldron DO [address] [place] [address] PCP - General 05/26/23 Adrien Camejo MD [address] [facility] [address] [place] [address] Consulting Physician Orthopedic Surgery 08/25/23 documented as of this encounter
--- OUTSIDE RECORDS SUMMARY | 2024-04-01 07:36 | XMS_ITS | Encounter Summary ---
Author Organization [facility] Healthcare Address [address] [place] [address] Care Team Providers Care Hourly Sign Language Interpreter Name Role Phone Jose Lorenzo DO Primary Care Provider [phone] Reason for Visit * Cardiology (Routine) - Closed Specialty Diagnoses / Procedures Referred By Contac t Referred To Contact Diagnoses H/O mechanical aortic valve replacement Procedures Transthoracic Echo (TTE) Complete W Doppler/CF Lalo Santamaria MD Phone: tel: fax: [facility] Medical Group Referral ID Status Reason Start Date Expiration Date Visits Re quested Visits Authorized [id number] Closed 01/07/2023 02/06/2024 1 1 Encounter Details Date Type Department Care Team (Latest Contact Info) Description 03/04/2023 9:15 AM LINUX NETWORK ADMINISTRATOR Ancillary Procedure [facility] Medical Group Cardiology [address] [place] [address] H/O mechanical aortic valve replacement Social History [...] on file Legal Sex Female 8:13 AM LINUX NETWORK ADMINISTRATOR Gender Identity Female 06/01/2020 9:42 PM LINUX NETWORK ADMINISTRATOR Sexual Orientation Straight 06/01/2020 9: 42 PM LINUX NETWORK ADMINISTRATOR 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 Not on file Not on file documented as of this encounter Last Filed Vital Signs Vital Sign Reading Time Taken Comments Blood Pressure 100/70 03/04/2023 10:05 AM LINUX NETWORK ADMINISTRATOR Pulse - - Temperature - - Respiratory Rate - - Oxygen Saturation - - Inhaled Oxygen Concentration - - Weight - - Height - - Body Mass Index - - documented in this encounter Plan of Treatment Not on file documented as of this encounter Procedures Procedure Name Priority Date/Time Associated Diagnosis Comments TRANSTHORACIC ECHO (TTE) COMPLETE W DOPPLER/CF WO CONTRAST Routine 03/04/2023 10:06 AM LINUX NETWORK ADMINISTRATOR H/O mechanical aortic valve replacement documented in this encounter Results * TRANSTHORACIC ECHO (TTE) COMPLETE W DOPPLER/CF WO CONTRAST (03/04/2023 10:06 AM LINUX NETWORK ADMINISTRATOR) Anatomical Region Laterality Modality Ultrasound 03/04/2023 9:46 AM LINUX NETWORK ADMINISTRATOR Narrative 03/04/2023 12:25 PM LINUX NETWORK ADMINISTRATOR [facility] Medical Group Cardiology [address] [facility] [address], [place] [address] [address] [facility] [address], [place] [address] P:[phone] P:[phone] Echocardiographic Report Patient Name: YESSY NIXON M : 1955 Study Date: 03/04/2023 9:46:23 AM Gender: F Tech: Location: [facility] Provider: LALO SANTAMARIA ?Height(Cm): 155 BSA: 1.62 Weight(Kg): 60.8 Heart Rate: 76 BP: 100 / 70 Quality: Good Order Provider: LALO SANTAMARIA PROCEDURES: Echocardiographic Report: Transthoracic echocardiogram with [...] Site: Exam was interpreted at [facility]. Left Ventricle: Normal left ventricular size. [...] S/P SAVR with [address] [place] prosthesis. Peak Velocity of 1.70 m/s. Mean [...] S/P SAVR with [address] [place] prosthesis. Peak Velocity 1.70 m/s. Mean gradient 7 mmHg. Gradients normal for valve type and size. RVSP 27 mmHg. Trivial to mild tricuspid regurgitation. Electronically Signed By: Peng Ann MD, [facility] 2023-03-04 12:24:47 LINUX NETWORK ADMINISTRATOR Procedure Note Peng Ann MD - 03/04/2023 [facility] Medical Group Cardiology [address], [place] [address] [address] [facility] [address], [place] [address] P:[phone] P:[phone] Echocardiographic Report Patient Name: YESSY NIXON M : 1955 Study Date: 03/04/2023 9:46:23 AM Gender: F Tech: Location: [place] Ref Provider: LALO SANTAMARIA Height(Cm): 155 BSA: 1.62 Weight(Kg): 60.8 Heart Rate: 76 BP: 100 / 70 Quality: Good Order Provider: LALO SANTAMARIA PROCEDURES: Echocardiographic Report: Transthoracic echocardiogram with [...] Site: Exam was interpreted at [facility]. Left Ventricle: Normal left ventricular size. [...] S/P SAVR with [address] [place] prosthesis. Peak Velocity of 1.70 m/s. Mean [...] S/P SAVR with [address] [place] prosthesis. Peak Velocity 1.70m/s. Mean gradient 7 mmHg. Gradients normal for valve type and size. RVSP 27 mmHg. Trivial to mild tricuspid regurgitation. Electronically Signed By: Peng Ann MD, [facility] 2023-03-04 12:24:47 LINUX NETWORK ADMINISTRATOR Lalo Santamaria MD CV ECHO PROCEDURES Final Re sult documented in this encounter Visit Diagnoses Diagnosis H/O mechanical aortic valve replacement documented in this encounter Care Teams Hourly Sign Language Interpreter Relationship Specialty Start Date End Date Jose Lorenzo DO PCP - General Family Medicine 09/23/22 05/25/23 documented as of this encounter
--- OUTSIDE RECORDS SUMMARY | 2024-04-01 07:36 | XMS_ITS | Encounter Summary ---
Author Organization [facility] Healthcare Address [address] [place] [address] Care Team Providers Care Parimutuel Ticket Seller Name Role Phone Jose Lorenzo Primary Care Provider [phone] Encounter Details Date Type Department Care Team (Late st Contact Info) Description 01/15/2023 Telephone [facility] Medical Group Cardiology [address] [facility] [address] [place] [address] Bindu Gaines MD [address] [place] [address] Social History Tobacco Use Types [...] on file Legal Sex Female 8:13 AM PLATE GRAINER Gender Identity Female 06/01/2020 9:42 PM PLATE GRAINER Sexual Orientation Straight 06/01/2020 9: 42 PM PLATE GRAINER Occupation Industry Job Start Date Job End Date [employer] Not on file Not on file Not on file documented as of this encounter Miscellaneous Notes * Telephone Encounter - Huma Trevizo RN - 01/15/2023 8:39 AM CDT Placed orders and faxed. * Telephone Encounter - Marley Tran - 01/15/2023 8:36 AM CDT Pt is currently at [facility]. Requesting INR order be faxed to [phone]. Thank you. Contact: documented in this encounter Plan of Treatment Scheduled Orders Name Type Priority Associated Diagnoses Orde r Schedule Protime-INR Lab Routine H/O mechanical aortic valve replacement Chronic anticoagulation weekly for 52 Occurrences starting 01/15/2023 until 01/16/2024 documented as of this encounter Visit Diagnoses Diagnosis H/O mechanical aortic valve replacement- Primary Chronic anticoagulation Encounter for long-term (current) 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s documented in this encounter Care Teams Parimutuel Ticket Seller Relationship Specialty Start Date End Date Jose Lorenzo DO PCP - General Family Medicine 09/23/22 05/25/23 documented as of this encounter
--- OUTSIDE RECORDS SUMMARY | 2024-04-01 07:36 | XMS_ITS | Encounter Summary ---
Author Organization [facility] Healthcare Address [address] [place] [address] Care Team Providers Care Manager Combination Name Role Phone Sanket Waldron Primary Care Provide r Encounter Details Date Type Department Care Team (Latest Contact Info) Description 07/20/2023 Anticoagulation Visit [facility] Medical Group Cardiology [address] [place] [address] Juany Madrid RN H/O mechanical [...] on file Legal Sex Female 8:13 AM HOUSE PAINTING INSTRUCTOR Gender Identity Female 06/01/2020 9:42 PM HOUSE PAINTING INSTRUCTOR Sexual Orientation Straight 06/01/2020 9: 42 PM HOUSE PAINTING INSTRUCTOR 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 Not on file Not on file documented as of this encounter Plan of Treatment Not on file documented as of this encounter Procedures Procedure Name Priority Date/Time Associated Diagnosis Comments PROTIME-INR Routine 07/20/2023 documented in this encounter Results * (ABNORMAL) Protime-INR (07/20/2023) INR 2.60(A) 0.9 - 1.1 EXTERNAL LAB Blood us Historical Provider LAB BLOOD ORDERABLES Antonina l Result EXTERNAL LAB documented in this encounter Visit Diagnoses Diagnosis H/O mechanical aortic valve replacement- Primary Chronic anticoagulation Encounter for long-term (current) 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s documented in this encounter Care Teams Manager Combination Relationship Specialty Start Date End Date Sanket Waldron DO [address] [place] [address] PCP - General 05/26/23 documented as of this encounter
--- OUTSIDE RECORDS SUMMARY | 2024-04-01 07:36 | XMS_ITS | Encounter Summary ---
Author Organization [facility] Healthcare Address [address] [place] [address] Care Team Providers Care Security Ambassador Name Role Phone Jose Lroenzo DO Primary Care Provider [phone] Encounter Details Date Type Department Care Team (Latest Contact Info) Description 05/25/2023 Anticoagulation Visit [facility] Medical Group Cardiology [address] [place] [address] Juany Madrid RN H/O mechanical [...] on file Legal Sex Female 8:13 AM PILE DRIVING NOZZLEMAN Gender Identity Female 06/01/2020 9:42 PM PILE DRIVING NOZZLEMAN Sexual Orientation Straight 06/01/2020 9: 42 PM PILE DRIVING NOZZLEMAN 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 Not on file Not on file documented as of this encounter Plan of Treatment Not on file documented as of this encounter Procedures Procedure Name Priority Date/Time Associated Diagnosis Comments PROTIME-INR Routine 05/25/2023 documented in this encounter Results * (ABNORMAL) Protime-INR (05/25/2023) INR 2.70(A) 0.9 - 1.1 EXTERNAL LAB Blood us Historical Provider LAB BLOOD ORDERABLES Antonina l Result EXTERNAL LAB documented in this encounter Visit Diagnoses Diagnosis H/O mechanical aortic valve replacement- Primary Chronic anticoagulation Encounter for long-term (current) 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s documented in this encounter Care Teams Security Ambassador Relationship Specialty Start Date End Date Jose Lorenzo DO PCP - General Family Medicine 09/23/22 05/25/23 documented as of this encounter
--- OUTSIDE RECORDS SUMMARY | 2024-04-01 07:36 | XMS_ITS | Encounter Summary ---
Author Organization [facility] Medical Group Address [address] [facility] [address] [place] [address] Care Team Providers Care Molding Process Technician Name Role Phone Jose Lorenzo DO Primary Care Provider [phone] Encounter Details Date Type Department Care Team (Late st Contact Info) Description 11/20/2022 Telephone [facility] Medical Group Cardiology [address] [place] [address] Bindu Gaines MD [address] [place] [address] Social History Tobacco Use Types [...] on file Legal Sex Female 8:13 AM COOK HOUSE SUPERVISOR Gender Identity Female 06/01/2020 9:42 PM COOK HOUSE SUPERVISOR Sexual Orientation Straight 06/01/2020 9: 42 PM COOK HOUSE SUPERVISOR 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 * Telephone Encounter - Juany Madrid RN - 11/20/2022 4:28 PM CDT Called pt today to discuss INR results. INR WNL. See AC note. Pt would like to ask KESHA if she thinks her atorvastatin has been causing her muscle pain that she has been having the past 5 years and if there is something else she could try to see if her symptoms improve. Will forward to KESHA. Please advise. documented in this encounter Plan of Treatment Not on file documented as of this encounter Visit Diagnoses Not on filedocumented in this encounter Care Teams Molding Process Technician Relationship Specialty Start Date End Date Jose Lorenzo DO PCP - General Family Medicine 09/23/22 05/25/23 documented as of this encounter
--- OUTSIDE RECORDS SUMMARY | 2024-04-01 07:36 | XMS_ITS | Encounter Summary ---
Author Organization [facility] Medical Group Address [address] [facility] [address] [place] [address] Care Team Providers Care Mannequin Refinisher Name Role Phone Jose Lorenzo DO Primary Care Provider [phone] Encounter Details Date Type Department Care Team (Late st Contact Info) Description 11/06/2022 Telephone [facility] Medical Group Cardiology [address] [place] [address] Bindu Gaines MD [address] [place] [address] Social History Tobacco Use Types [...] on file Legal Sex Female 8:13 AM DEPUTY FIRE CHIEF Gender Identity Female 06/01/2020 9:42 PM DEPUTY FIRE CHIEF Sexual Orientation Straight 06/01/2020 9: 42 PM DEPUTY FIRE CHIEF 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 Just wanted to thank you again for all the wonderful care you and your staff have been giving me the last 14 years. 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 The last four years have been some of the hardest, but at least they aren't heart related. Next year will be a milestone. Hope it will be doing something fun. So, again...THANK YOU from the bottom to the top of my heart!! Emani Donaldson Will forward pt message on to [facility]. :) documented in this encounter Plan of Treatment Not on file documented as of this encounter Visit Diagnoses Not on filedocumented in this encounter Care Teams Mannequin Refinisher Relationship Specialty Start Date End Date Jose Lorenzo DO PCP - General Family Medicine 09/23/22 05/25/23 documented as of this encounter
--- OUTSIDE RECORDS SUMMARY | 2024-04-01 07:36 | XMS_ITS | Encounter Summary ---
Author Organization [facility] Healthcare Address [address] [place] [address] Care Team Providers Care Code Machine Operator Name Role Phone Jose Lorenzo DO Primary Care Provider [phone] Sanket Waldron DO Primary Care Provide r Adrien Camejo MD Unavailable [phone] Encounter Details Date Type Department Care Team (Late st Contact Info) Description 05/25/2023 Orders Only [facility] Health Information Management [address] [place] [address] Scanning, Provider Social History Tobacco Use [...] on file Legal Sex Female 8:13 AM EXHIBIT DESIGNER Gender Identity Female 06/01/2020 9:42 PM EXHIBIT DESIGNER Sexual Orientation Straight 06/01/2020 9: 42 PM EXHIBIT DESIGNER 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 Not on file Not on file documented as of this encounter Plan of Treatment Not on file documented as of this encounter Procedures Procedure Name Priority Date/Time Associated Diagnosis Comments SCAN - LABS 05/25/2023 documented in this encounter Results * SCAN - LABS (05/25/2023) us Provider Scanning Final Result documented in this encounter Visit Diagnoses Not on filedocumented in this encounter Care Teams Code Machine Operator Relationship Specialty Start Date End Date Jose Lorenzo DO PCP - General Family Medicine 09/23/22 05/25/23 Sanket Waldron DO [address] [place] [address] PCP - General 05/26/23 Adrien Camejo MD [address] [facility] [address] [place] [address] Consulting Physician Orthopedic Surgery 08/25/23 documented as of this encounter
--- OUTSIDE RECORDS SUMMARY | 2024-04-01 07:36 | XMS_ITS | Encounter Summary ---
Author Organization [facility] Healthcare Address [address] [place] [address] Care Team Providers Care Paving Block Cutter Name Role Phone Jose Lorenzo Primary Care Provider [phone] Encounter Details Date Type Department Care Team (Late st Contact Info) Description 04/27/2023 Telephone [facility] Medical Group Cardiology [address] [facility] [address] [place] [address] Rachel Fan NP [address] [place] [address] Social History Tobacco Use Types [...] file Legal Sex Female 8:13 AM SALES OUTFITTER Gender Identity Female 06/01/2020 9:42 PM SALES OUTFITTER Sexual Orientation Straight 06/01/2020 9: 42 PM SALES OUTFITTER 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 Thanks. S OUTFITTER * Telephone Encounter - Penny Wilks RN - 04/27/2023 10:31 AM CST It was a medrol dose pack that the nurse at Dr Haas???s office was talking about; not a Z-Shon. I hate when I???m wrong. I???m going to go ahead and get my INR done today. I???m not sure about taking the Medrol dose pack. I had found out that it was Medrol injections that I had gotten back in March. That???s what started the increased pain. My INR had also increased after the Medrol so I???m not sure about taking the dose pack. I talked to the nurse at Dr. Medina???s office today. Waiting to hear back. If I start on the dose pack, I definitely will be having my INR done again I just want to make sure it???s stable before I even have it done. If I do again you guys are awesome. Thanks so much. ( Will still check INR in 3 days) S OUTFITTER * Telephone Encounter - Penny Wilks RN - 04/27/2023 8:00 AM CST My chart message Dec I had a cortisone injection (Depo-Medrol) in both knees. (Blood tinged fluid was aspirated from both knees.) Noted problems with increased pain RLE within about an hr or less. Dec 8 my bloodwork showed an INR of 5.9. I did what was recommended by your staff. (They are wonderful.) Dec 11 I had an appointment with pain management. Was sent to the emergency room (went reluctantly). Possible infection. Was told it was a ???Cortisone Flare?? . Records show knee effusion. My records were within parameters for Nov-Feb. I had a bout with sciatica Apr 07-Apr 13 Round 2 started Apr 23. I have an INR Apr 27. Want to check if a Z pack would be okay to take. I continue to have issues I believe from the cortisone. Thanks. CT-Sending to you as FYI -I will have her check an INR 3 days after initiating the antibiotic S OUTFITTER documented in this encounter Plan of Treatment Not on file documented as of this encounter Visit Diagnoses Not on filedocumented in this encounter Care Teams Paving Block Cutter Relationship Specialty Start Date End Date Jose Lorenzo DO PCP - General Family Medicine 09/23/22 05/25/23 documented as of this encounter
--- OUTSIDE RECORDS SUMMARY | 2024-04-01 07:36 | XMS_ITS | Encounter Summary ---
Author Organization [facility] Healthcare Address [address] [place] [address] Care Team Providers Care Rn Discharge Name Role Phone Sanket Waldron Primary Care Provide r Encounter Details Date Type Department Care Team (Late st Contact Info) Description 07/07/2023 Telephone [facility] Medical Group Cardiology [address] [place] [address] Bindu Gaines MD [address] [place] [address] Social History Tobacco Use Types [...] on file Legal Sex Female 8:13 AM WATCH ELECTRICIAN Gender Identity Female 06/01/2020 9:42 PM WATCH ELECTRICIAN Sexual Orientation Straight 06/01/2020 9: 42 PM WATCH ELECTRICIAN 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 Requestingcall be made to alternative number below. Contact:[phone] documented in this encounter Plan of Treatment Not on file documented as of this encounter Visit Diagnoses Not on filedocumented in this encounter Care Teams Rn Discharge Relationship Specialty Start Date End Date Sanket Waldron DO [address] [place] [id number] PCP - General 05/26/23 documented as of this encounter
--- OUTSIDE RECORDS SUMMARY | 2024-04-01 07:36 | XMS_ITS | Encounter Summary ---
Author Organization [facility] Healthcare Address [address] [place] [address] Care Team Providers Care Manager Roofing Name Role Phone Jose Lorenzo Primary Care Provider [phone] Encounter Details Date Type Department Care Team (Latest Contact Info) Description 03/23/2023 Anticoagulation Visit [facility] Medical Group Cardiology [address] [place] [address] Juany Madrid RN H/O mechanical [...] on file Legal Sex Female 8:13 AM CUSTOMER SALES CONSULTANT Gender Identity Female 06/01/2020 9:42 PM CUSTOMER SALES CONSULTANT Sexual Orientation Straight 06/01/2020 9: 42 PM CUSTOMER SALES CONSULTANT 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 Not on file Not on file documented as of this encounter Plan of Treatment Not on file documented as of this encounter Procedures Procedure Name Priority Date/Time Associated Diagnosis Comments PROTIME-INR Routine 03/23/2023 documented in this encounter Results * (ABNORMAL) Protime-INR (03/23/2023) INR 2.40(A) 0.9 - 1.1 EXTERNAL LAB Blood us Historical Provider LAB BLOOD ORDERABLES Antonina l Result EXTERNAL LAB documented in this encounter Visit Diagnoses Diagnosis H/O mechanical aortic valve replacement- Primary Chronic anticoagulation Encounter for long-term (current) 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s documented in this encounter Care Teams Manager Roofing Relationship Specialty Start Date End Date Jose Lorenzo DO PCP - General Family Medicine 09/23/22 05/25/23 documented as of this encounter
--- OUTSIDE RECORDS SUMMARY | 2024-04-01 07:36 | XMS_ITS | Encounter Summary ---
Author Organization [facility] Healthcare Address [address] [place] [address] Care Team Providers Care Goal Umpire Name Role Phone Jose Lorenzo DO Primary Care Provider [phone] Sanket Waldron DO Primary Care Provide r Adrien Camejo MD Unavailable [phone] Encounter Details Date Type Department Care Team (Late st Contact Info) Description 02/12/2023 Orders Only [facility] [facility] [place] [address] [place] [id number] Scanning, Provider Social History Tobacco Use [...] on file Legal Sex Female 8:13 AM BEHAVIORAL SCIENCES INSTRUCTOR Gender Identity Female 06/01/2020 9:42 PM BEHAVIORAL SCIENCES INSTRUCTOR Sexual Orientation Straight 06/01/2020 9: 42 PM BEHAVIORAL SCIENCES INSTRUCTOR 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 Not on file Not on file documented as of this encounter Plan of Treatment Not on file documented as of this encounter Procedures Procedure Name Priority Date/Time Associated Diagnosis Comments SCAN - LABS 02/12/2023 documented in this encounter Results * SCAN - LABS (02/12/2023) us Provider Scanning Final Result documented in this encounter Visit Diagnoses Not on filedocumented in this encounter Care Teams Goal Umpire Relationship Specialty Start Date End Date Jose Lorenzo DO PCP - General Family Medicine 09/23/22 05/25/23 Sanket Waldron DO [address] [place] [id number] PCP - General 05/26/23 Adrien Camejo MD [facility] [address] [address] Consulting Physician Orthopedic Surgery 08/25/23 documented as of this encounter
--- OUTSIDE RECORDS SUMMARY | 2024-04-01 07:36 | XMS_ITS | Encounter Summary ---
Author Organization [facility] Medical Group Address [address] [place] [address] Care Team Providers Care Jacquard Card Cutter Name Role Phone Jose Lorenzo DO Primary Care Provider [phone] Encounter Details Date Type Department Care Team (Latest Contact Info) Description 10/20/2022 Anticoagulation Visit [facility] Medical Group Cardiology [address] [place] [address] Huma Trevizo RN H/O mechanical [...] on file Legal Sex Female 8:13 AM SLIP COVER OPERATOR Gender Identity Female 06/01/2020 9:42 PM SLIP COVER OPERATOR Sexual Orientation Straight 06/01/2020 9: 42 PM SLIP COVER OPERATOR 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 Not on file Not on file documented as of this encounter Plan of Treatment Not on file documented as of this encounter Procedures Procedure Name Priority Date/Time Associated Diagnosis Comments PROTIME-INR Routine 10/20/2022 documented in this encounter Results * (ABNORMAL) Protime-INR (10/20/2022) INR 2.30(A) 0.9 - 1.1 EXTERNAL LAB Blood us Historical Provider LAB BLOOD ORDERABLES Edit ed Result - Final EXTERNAL LAB documented in this encounter Visit Diagnoses Diagnosis H/O mechanical aortic valve replacement- Primary Chronic anticoagulation Encounter for long-term (current) 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s documented in this encounter Care Teams Jacquard Card Cutter Relationship Specialty Start Date End Date Jose Lorenzo DO PCP - General Family Medicine 09/23/22 05/25/23 documented as of this encounter
--- OUTSIDE RECORDS SUMMARY | 2024-04-01 07:36 | XMS_ITS | Encounter Summary ---
Author Organization [facility] Healthcare Address [address] [place] [address] Care Team Providers Care Ad Taker Name Role Phone Konstantinyolandajunior Sanketmagdi Fisher Primary Care Provide r Encounter Details Date Type Department Care Team (Late st Contact Info) Description 06/23/2023 Telephone [facility] Medical Group Cardiology [address] [place] [address] Bindu Gaines MD [address] [place] [address] Social History Tobacco Use Types [...] on file Legal Sex Female 8:13 AM PHOTOGRAPH ENLARGER Gender Identity Female 06/01/2020 9:42 PM PHOTOGRAPH ENLARGER Sexual Orientation Straight 06/01/2020 9: 42 PM PHOTOGRAPH ENLARGER 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 * Telephone Encounter - Elisa Merino - 06/23/2023 2:15 PM CDT Pt requesting a call back with an update in regard to status of cardiac clearance request. Contact:[phone] documented in this encounter Plan of Treatment Not on file documented as of this encounter Visit Diagnoses Not on filedocumented in this encounter Care Teams Ad Taker Relationship Specialty Start Date End Date Sanket Waldron DO [address] [place] [id number] PCP - General 05/26/23 documented as of this encounter
--- OUTSIDE RECORDS SUMMARY | 2024-04-01 07:37 | XMS_ITS | Encounter Summary ---
Author Organization [facility] Medical Group Address [address] [place] [address] Care Team Providers Care Electrician Supervisor Airplane Name Role Phone Nathalie Jain MD Primary Care Provider [phone] Encounter Details Date Type Department Care Team (Latest Contact Info) Description 02/11/2022 Anticoagulation Visit [facility] Medical Group Cardiology [address] [place] [address] Juany Madrid RN H/O mechanical [...] on file Legal Sex Female 8:13 AM FINANCIAL REPORTING CONSULTANT Gender Identity Female 06/01/2020 9:42 PM FINANCIAL REPORTING CONSULTANT Sexual Orientation Straight 06/01/2020 9: 42 PM FINANCIAL REPORTING CONSULTANT 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
--- OUTSIDE RECORDS SUMMARY | 2024-04-01 07:37 | XMS_ITS | Encounter Summary ---
Author Organization [facility] Medical Group Address [address] [place] [address] Care Team Providers Care Grommet Man Name Role Phone Nathalie Jain MD Primary Care Provider [phone] Encounter Details Date Type Department Care Team (Late st Contact Info) Description 08/25/[address] 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 * Telephone Encounter - Huma Trevizo RN - 08/25/2022 8:47 AM CDT ----- Message from Yessy Donaldson sent at 08/25/2022 8:24 AM CDT ----- Regarding: [place] 3 question. Contact: Just wondering if it's okay to take [place] 3 1000 mg. Sometimes I'm not sure with the other meds I'mon. Have a new pcp and will be asking him, but don't have a my chart set up there yet. Thanks. Emani Donaldson Will forward pt question on to [facility]. Please advise, thank you! documented in this encounter Plan of Treatment Not on file documented as of this encounter Visit Diagnoses Not on filedocumented in this encounter Care Teams Grommet Man Relationship Specialty Start Date End Date Nathalie Jain [place] [address] PCP - General Internal Medicine 01/10/21 09/22/22 documented as of this encounter
--- OUTSIDE RECORDS SUMMARY | 2024-04-01 07:37 | XMS_ITS | Encounter Summary ---
Author Organization [facility] Medical Group Address [address] [place] [address] Care Team Providers Care Elevator Installer Name Role Phone Nathalie Jain MD Primary Care Provider [phone] Encounter Details Date Type Department Care Team (Latest Contact Info) Description 08/05/[address] 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
--- OUTSIDE RECORDS SUMMARY | 2024-04-01 07:37 | XMS_ITS | Encounter Summary ---
Author Organization [facility] Medical Group Address [address] [place] [address] Care Team Providers Care Software Test Technician Name Role Phone Nathalie Jain MD Primary Care Provider [phone] Encounter Details Date Type Department Care Team (Latest Contact Info) Description 04/17/2022 Anticoagulation Visit [facility] Medical Group Cardiology [address] [place] [address] Huma Trevizo RN H/O mechanical [...] on file Legal Sex Female 8:13 AM RESTAURANT AND BAR MANAGER Gender Identity Female 06/01/2020 9:42 PM RESTAURANT AND BAR MANAGER Sexual Orientation Straight 06/01/2020 9: 42 PM RESTAURANT AND BAR MANAGER 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
--- OUTSIDE RECORDS SUMMARY | 2024-04-01 07:37 | XMS_ITS | Encounter Summary ---
Author Organization [facility] Medical Group Address 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
--- OUTSIDE RECORDS SUMMARY | 2024-04-01 07:37 | XMS_ITS | Encounter Summary ---
Author Organization [facility] Address [address] [place] [address] Care Team Providers Care Inspector Semiconductor Wafer Name Role Phone Nathalie Jain MD Primary Care Provider [phone]- [phone] Reason for Referral * Cardiology (Routine) - Closed Specialty Diagnoses / Procedures Referred By Contac t Referred To Contact Diagnoses H/O mechanical aortic valve replacement Procedures Transthoracic Echo (TTE) Complete W Doppler/CF Su Fan NP [address] [address] Phone: tel: fax: [facility] Referral ID Status Reason Start Date Expiration Date Visits Re quested Visits Authorized [id number] Closed 02/06/2022 04/06/2022 1 1 Reason for Visit * Reason Comments Follow-up Bicuspid Aortic Valve Encounter Details Date Type Department Care Team (Late st Contact Info) Description 01/07/2022 11:30 AM CDT Office Visit [facility] Cardiology [address] [address] Su Fan NP [address] [address] H/O mechanical aortic valve replacement (Primary Dx); Bicuspid aortic valve; Chronic anticoagulation Social History Tobacco Use Types [...] on file Legal Sex Female 8:13 AM OFFICE COORDINATOR Gender Identity Female 06/01/2020 9:42 PM OFFICE COORDINATOR Sexual Orientation Straight 06/01/2020 9: 42 PM OFFICE COORDINATOR 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 [facility] Cardiology [address] [place] [address] Date of Visit: 01/07/2022 Patient ID: Yessy Nixon 1955 Chief Complaint Patient presents with Follow-up Bicuspid Aortic Valve Yessy Nixon is a 66 y.o. female who is an established patient of Dr. Gaines with a historya bicuspid aortic valve and a mechanical aortic valve replacement returning to the office for annual follow-up. History of Present Illness: Yessy Nixon is a 66 y.o. female with a history of bicuspid aortic valve, who underwent AVR w/ a 19 mm [place] mechanical valve by Dr. Guthrie in 2008. Has not had involvement of her ascending aorta. She is chronically anticoagulated. She is aware of need for SBE antibiotic prophylaxis prior to dental work and nonsterile procedures. History of hyperlipidemia. 11/15/2018 OV: Doing OK, son is now living at home so things are crazy sometimes. No heart problemsDoes cardiac class, gets tired and joints hurt. Also started Dae class. Some LLE edema. Practicesdental prophylaxis. NO CP, SOB, dizziness. 12/01/2019 ov with NAMRATA Fan: Here for annual visit. Currently having problems with left-sided sciatica. She has also been dealing with a corneal abrasion. She has noticed swelling in her feet more recently. She seems to notice it in the morning, does not think it gets any worse during the day. Denies any new shortness of breath, orthopnea, PND or bloating 12/10/[address] Gaines: No heart troubles, not much TRINH. No bleeding. Sciatica has been a problem this year, has LLE numbness, has lost bslance and fallen this year. Sees pain Management. Now takes Celebrex. Retired in January but went back to work part-time. Anticoagulation visits reviewed, INR was 3.5 on 11/15/2020, therapeutic. POC lipids as below. Echo reviewed. 01/07/2022 OV with NAMRATA [place]: She is here for annual follow-up. She [...] few months but then went backto work. 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 Her son in mid-30's is also severely disabled, and moved into a mcc but it didn't work out and now is back home. Her mother, with whom she was not close, April 2012, and her uncle also around that same time. Records that I personally reviewed on the day of this visit include: (the interpretation is outlined in the HPI above) 12/10/[address] Gaines, 01/10/2021 echocardiogram report I have also reviewed: allergies, current medications, past family history, past medical history, past social history, past surgical history and problem list Medical History: Past Medical History: Diagnosis Date Arthritis Asthma Asthma Cataract diagnosed 2019 Depression supposedly; but feel it's a misdiagnosis. Eczema eczema GERD (gastroesophageal reflux disease) at least 10 years Heart disease HX OTHER MEDICAL diverticulosis Mitral valve prolapse Myalgia Neuromuscular disorder (CMS/HCC) (HCC) Have had sciatica for 17 months. [...] Male control/protection: Post-menopausal, Vasectomy Alcohol Use: Not on file Family History Problem Relation Age of Onset Other Father [place] age 50, CABG; Heart attack Father Arthritis Father Hearing loss Father Other (brain tumor) Sister Other Mother H/O CVA, 2012; Stroke Mother Vision loss Mother Clotting disorder Mother Other Sister MVP; Cancer Sister Arthritis Sister Diabetes Sister Arthritis Sister defects Son Developmental delay Son Hyperlipidemia Son Vision loss Son Review of Systems Constitutional: Negative for diaphoresis, fever, malaise/fatigue, weight gain and weight loss. HENT: Positive for hearing loss. Eyes: Positive for visual disturbance. Cardiovascular: Negative for chest pain, claudication, dyspnea on exertion, leg swelling, orthopnea, palpitations, paroxysmal nocturnal dyspnea and syncope. Respiratory: Negative for cough, hemoptysis, shortness of breath, snoring and wheezing. Hematologic/Lymphatic: Bruises/bleeds easily. Skin: Negative for poor wound healing and rash. Musculoskeletal: Positive for arthritis, joint pain and myalgias. Gastrointestinal: Negative for heartburn, nausea and vomiting. Genitourinary: Negative for hematuria. Neurological: Negative for dizziness, headaches and light-headedness. Psychiatric/Behavioral: Negative for depression. The patient is not nervous/anxious. Vital Signs: BP 112/64 (BP Location: Right arm, Patient Position: Sitting) Pulse 80 Ht 154.9 cm (5' 1 ) Wt62.1 kg (137 lb) SpO2 97% BMI 25.89 kg/m?? Physical Exam Constitutional: General: She is not in acute distress. Appearance: She is well-developed. HENT: Head: Normocephalic and atraumatic. Nose: Comments: Wearing a mask Eyes: General: No scleral icterus. Conjunctiva/sclera: Conjunctivae normal. Neck: Vascular: No JVD. Trachea: No tracheal deviation. Cardiovascular: Rate and Rhythm: Normal rate and regular rhythm. Heart sounds: Murmur heard. Early systolic murmur is present with a grade of 1/6 at the upper left sternal border. Comments: [place] mechanical click, most pronounced at URSB. Pulmonary: Effort: Pulmonary effort is normal. No respiratory distress. Breath sounds: Normal breath sounds. Musculoskeletal: Right lower leg: No edema. Left lower leg: No edema. Skin: General: Skin is warm and dry. Neurological: Mental Status: She is alert and oriented to person, place, and time. Psychiatric: Mood and Affect: Mood normal. Behavior: Behavior normal. Allergies Allergen Reactions Pregabalin Unknown and Rash Current Outpatient Medications: albuterol HFA (ProAir HFA) 90 mcg/actuation inhaler, Inhale 2 puffs every 4 (four) hours as needed for wheezing, Disp: 1 Inhaler, Rfl: 1 amoxicillin (AMOXIL) 500 mg tablet/capsule, Take 4 caps (2000 mg) 1 hour prior to procedure., Disp:4 tablet/capsule, Rfl: 3 aspirin 81 mg tablet, Take one by mouth one time per day, Disp: 0, Rfl: 0 atorvastatin (LIPITOR) 20 mg tablet, TAKE 1 TABLET BY MOUTH EVERY DAY, Disp: 90 tablet, Rfl: 0 CALCIUM CITRATE ORAL, , Disp: , Rfl: cholecalciferol (VITAMIN D-3) 1,000 unit capsule, , Disp: , Rfl: COVID-19 mRNA,FGL846F1 ([employer]) 30 mcg/0.3 mL suspension for reconstitution, , Disp: , Rfl: gabapentin (NEURONTIN) 300 mg capsule, Take 300 mg by mouth 2 (two) times a day, Disp: , Rfl: LATANOPROST OPHT, , Disp: , Rfl: warfarin (COUMADIN) 2 mg tablet, TAKE 2 TABLETS BY MOUTH EVERY DAY, Disp: 60 tablet, Rfl: 0 warfarin (COUMADIN) 2.5 mg tablet, , Disp: , Rfl: celecoxib (CeleBREX) 200 mg capsule, Take 1 capsule (200 mg total) by mouth 2 (two) times a day, Disp: 60 capsule, Rfl: 0 Lab Results Component Value Date POTASSIUM 4.5 07/31/2020 BUNSER 33 (H) 07/31/2020 CREATININE 0.56 07/31/2020 CHOL 227 (H) 08/31/2012 TRIG 133 08/31/2012 LDL 144 (H) 08/31/2012 HDL 56 08/31/2012 Lab Results Component Value Date WBC 4.5 08/30/2021 HGB 13.1 08/30/2021 HCT 38.9 08/30/2021 MCV 95.6 08/30/2021 No results found for this or any previous visit (from the past 4 hour(s)). Assessment: Diagnoses and all orders for this visit: H/O mechanical aortic valve replacement (Primary) - Transthoracic Echo (TTE) Complete W Doppler/CF; Future Bicuspid aortic valve Chronic anticoagulation Plan/Recommendations: She has a history of bicuspid aortic valve s/p mechanical aortic valve replacement in 2008. Cardiacstatus appears stable. She was reminded of SBE prophylaxis. I will arrange for her to return to theoffice for repeat echocardiogram to reassess the function of the prosthetic aortic valve. She should continue ongoing follow-up in our anticoagulation clinic for warfarin. I reviewed bleeding precautions with her, particularly how to monitor for GI irritation because she also takes Celebrex. Return to the office to see Dr. Gaines in 12 months. Call us sooner with questions or concerns. 01/07/2022 MELVINA Hough- Nurse Practitioner with [facility] This note is dictated and transcribed using [employer] Direct Software. Bindery Worker variancesmay occur. Despite proofreading, typographical errors may occur. documented in this encounter Plan of Treatment Not on file documented as of this encounter Results * TRANSTHORACIC ECHO (TTE) COMPLETE W DOPPLER/CF WO CONTRAST (02/13/2022 2:39 PM CDT) Anatomical Region Laterality Modality Ultrasound 02/13/2022 1:42 PM CDT Narrative 02/13/2022 4:44 PM CDT [facility] Cardiology [address], [place] [address] [address], [place] [address] P:[phone] P:[phone] Echocardiographic Report Patient Name: YESSY NIXON : 1955 Study Date: 02/13/2022 1:42:01 PM Gender: F Tech: Location: [place] Ref.Provider: SU FAN Height(Cm): 155 BSA: 1.61 Weight(Kg): 62.14 Heart Rate: 84 BP: 93/51 Quality: Good Order Provider: SU FAN Procedures: Echocardiographic Report: Transthoracic echocardiogram with complete 2D, M-Mode, and color Doppler examination. Indications: Aortic Valve Replacement. Measurements: 2D/M Mode ?Doppler ? Measurement ?Value ?Normal Range ? Measurement ?Value ?Normal Range ? EF Mod ? 71 ?LYNSEY ?1.31 ? [ 2.00 - 4.00 ] cm2 ? EF MM ?70 ? [ 55 - 70 ] % ?AV Mean PG ? 10 ? mmHg ? LVIDd MM ? 3.80 ? [ 3.90 - 5.30 ] cm ? AV Peak Alvaro ?2.22 ? m/s ? LVIDs MM ? 2.33 ? [ 2.30 - 3.90 ] cm ? AV Peak PG ? 20 ? mmHg ? LVPWd MM ? 1.33 ? [ 0.60 - 1.00 ] cm ? AV VTI ? 0.45 ? cm ? IVSd MM ?1.33 ? [ 0.60 - 0.90 ] cm ? LVOT Diam ?2.12 ? [ 1.70 - 2.10 ] cm ? LA Dimension MM ?3.27 ? [ 2.70 - 3.80 ] cm ? LVOT Peak Alvaro ?0.82 ? [ 0.70 - 1.10 ] m/s ? AoR Diam MM ?2.67 ? [ 2.60 - 3.70 ] cm ? LVOT VTI ? 0.16 ? cm ? LA Volume Index ?15.00 ?[ 16.00 - 28.00 ] cc/m2 ?MV E Peak Alvaro ?0.71 ? [ 0.60 - 1.30 ] m/s ? MV A Peak Alvaro ?0.97 ? [ 0.40 - 0.80 ] m/s ? MV Decel Time ?225 ?[ 150 - 200 ] msec ? PV Peak Alvaro ?1.10 ? [ 0.40 - 0.80 ] m/s ? TR Peak Alvaro ?2.25 ? [ 0.40 - 0.80 ] m/s ? TR Peak PG ? 20 ? mmHg ? RVSP ? 28.00 ?mmHg ? E' ? 0.10 ? E/E' ? 7 ? Findings: Interpretation Site: Exam was interpreted at [facility]. Left Ventricle: Normal left ventricular size. Mild concentric left ventricular hypertrophy. Normal global left ventricular systolic function. Impaired diastolic relaxation Grade I. Ejection fraction is measured at 71 %. Right Ventricle: Normal right ventricular size. Left Atrium: The left atrium is normal in size. Right Atrium: The right atrium is normal in size. Atrial Septum: Normal atrial septum. Mitral Valve: Normal appearance of the mitral valve. Aortic Valve: Peak gradient of 20.0 mmHg. Mean gradient of 10.0 mmHg. Valve area of 1.31 cm2. Trace aortic valve regurgitation. Gradients normal for valve type and size. Normal appearing aortic valve bioprosthesis. Tricuspid Valve: Normal appearance of the tricuspid valve. Estimated peak RVSP is 28 mmHg. Mild tricuspid regurgitation. Pulmonic Valve: Pulmonic valve not well visualized. Pericardium: Normal pericardium with no significant pericardial effusion. Aorta: Ascending aorta is mildly dilated. IVC: Normal size and normal respiratory collapse consistent with normal right atrial pressure (<5 mmHg). Pulmonary Artery: Normal pulmonary artery size. Conclusions: Normal left ventricular size. Mild concentric left ventricular hypertrophy. Normal global left ventricular systolic function. Impaired diastolic relaxation Grade I. Ejection fraction is measured at 71 %. Peak gradient of 20.0 mmHg. Mean gradient of 10.0 mmHg. Valve area of 1.31 cm2. Trace aortic valve regurgitation. Gradients normal for valve type and size. Normal appearing aortic valve bioprosthesis. Ascending aorta is mildly dilated. Electronically Signed By: Dat Chauhan MD, [facility] 2022-02-13 16:44:03 CDT Procedure Note Dat Chauhan MD - 02/13/2022 [facility] Cardiology [address] [address] [address], [place] [address] P:[phone] P:[phone] Echocardiographic Report Patient Name: YESSY NIXONPatient ID: [id number] : [id number] Date: 02/13/2022 1:42:01 PM Gender: FAccession #: [id number] Tech: GMLocation: [place] Ref.Provider: SU FANHeight(Cm): 155 BSA: 1.61Weight(Kg): 62.14 Heart Rate: 84BP: 93/51 Quality: GoodOrder Provider: SU FAN Procedures: Echocardiographic Report: Transthoracic echocardiogram with complete 2D, M-Mode, and color Dopplerexamination. Indications: Aortic Valve Replacement. Measurements: 2D/M Mode Doppler Measurement Value Normal Range MeasurementValue Normal Range EF Mod 71 AVA1.31 [ 2.00 - 4.00 ] cm2 EF MM 70 [ 55 - 70 ] % AV Mean PG 10mmHg LVIDd MM 3.80 [ 3.90 - 5.30 ] cm AV Peak Vel2.22 m/s LVIDs MM 2.33 [ 2.30 - 3.90 ] cm AV Peak PG 20mmHg LVPWd MM 1.33 [ 0.60 - 1.00 ] cm AV VTI0.45 cm IVSd MM 1.33 [ 0.60 - 0.90 ] cm LVOT Diam2.12 [ 1.70 - 2.10 ] cm LA Dimension MM 3.27 [ 2.70 - 3.80 ] cm LVOT Peak Vel0.82 [ 0.70 - 1.10 ] m/s AoR Diam MM 2.67 [ 2.60 - 3.70 ] cm LVOT VTI0.16 cm LA Volume Index 15.00 [ 16.00 - 28.00 ] cc/m2 MV E Peak Vel0.71 [ 0.60 - 1.30 ] m/s MV A Peak Vel0.97 [ 0.40 - 0.80 ] m/s MV Decel Oxbl108 [ 150 - 200 ] msec PV Peak Vel1.10 [ 0.40 - 0.80 ] m/s TR Peak Vel2.25 [ 0.40 - 0.80 ] m/s TR Peak PG 20mmHg RVSP28.00 mmHg E'0.10 E/E' 7 Findings: Interpretation Site: Exam was interpreted at [facility]. Left Ventricle: Normal left ventricular size. Mild concentric left ventricularhypertrophy. Normal global left ventricular systolic function. Impaired diastolic relaxation Grade I.Ejection fraction is measured at 71 %. Right Ventricle: Normal right ventricular size. Left Atrium: The left atrium is normal in size. Right Atrium: The right atrium is normal in size. Atrial Septum: Normal atrial septum. Mitral Valve: Normal appearance of the mitral valve. Aortic Valve: Peak gradient of 20.0 mmHg. Mean gradient of 10.0 mmHg. Valve area of 1.31cm2. Trace aortic valve regurgitation. Gradients normal for valve type and size.Normal appearing aortic valve bioprosthesis. Tricuspid Valve: Normal appearance of the tricuspid valve. Estimated peak RVSP is 28 mmHg.Mild tricuspid regurgitation. Pulmonic Valve: Pulmonic valve not well visualized. Pericardium: Normal pericardium with no significant pericardial effusion. Aorta: Ascending aorta is mildly dilated. IVC: Normal size and normal respiratory collapse consistent with normal rightatrial pressure (<5 mmHg). Pulmonary Artery: Normal pulmonary artery size. Conclusions: Normal left ventricular size. Mild concentric left ventricularhypertrophy. Normal global left ventricular systolic function. Impaired diastolic relaxation Grade I.Ejection fraction is measured at 71 %. Peak gradient of 20.0 mmHg. Mean gradient of 10.0 mmHg. Valve area of 1.31cm2. Trace aortic valve regurgitation. Gradients normal for valve type and size.Normal appearing aortic valve bioprosthesis. Ascending aorta is mildly dilated. Electronically Signed By: Dat Chauhan MD, [facility] 2022-02-13 16:44:03 CDT Su Fan NP CV ECHO PROCEDURES Final Result documented in this encounter Visit Diagnoses Diagnosis H/O mechanical aortic valve replacement- Primary Bicuspid aortic valve Congenital insufficiency of aortic valve Chronic anticoagulation Encounter for long-term (current) 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s H/O mechanical aortic valve replacement documented in this encounter Discontinued Medications Medication Sig Discontinue Reason Start Date End Da te DULoxetine DR (CYMBALTA) 60 mg capsuleIndications:Mod erate episode of recurrent major depressive disorder (HCC) Take 1 capsule (60 mg total) by mouth daily Discontinued by another clinician 07/01/2020 01/07/2022 documented as of this encounter Care Teams Inspector [employer]iconductor Wafer Relationship Specialty Start Date End Date Nathalie Jain MD [address] [place] [address] PCP - General Internal Medicine 01/10/21 09/22/22 documented as of this encounter
--- OUTSIDE RECORDS SUMMARY | 2024-04-01 07:37 | XMS_ITS | Encounter Summary ---
Author Organization [facility] Address [address] [place] [address] Care Team Providers Care Bin Packer Name Role Phone Nathalie Jain MD Primary Care Provider [phone]- [phone] Encounter Details Date Type Department Care Team (Latest Contact Info) Description 07/15/2022 Anticoagulation Visit [facility] Cardiology [address] [place] [address] Penny Wilks, BHAVANA H/O mechanical [...] file Legal Sex Female 8:13 AM FOOD PRODUCTION SUPERVISOR Gender Identity Female 06/01/2020 9:42 PM FOOD PRODUCTION SUPERVISOR Sexual Orientation Straight 06/01/2020 9: 42 PM FOOD PRODUCTION SUPERVISOR 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
--- OUTSIDE RECORDS SUMMARY | 2024-04-01 07:37 | XMS_ITS | Encounter Summary ---
Author Organization [facility] Address [address] [place] [address] Phone Care Team Providers Care Long Term Care Social Worker Name Role Phone Nathalie Jain MD Primary Care Provider +1- [phone] Encounter Details Date Type Department Care Team (Latest Contact Info) Description 01/02/2022 10:30 AM CDT Procedure visit [facility] Neurological Testing [address] 6th [place] [address] [place] [id number] Bilateral sciatica (Primary Dx) Social History Tobacco Use Types Packs/Day Years [...] on file Legal Sex Female 8:13 AM RATE EXAMINER Gender Identity Female 06/01/2020 9:42 PM RATE EXAMINER Sexual Orientation Straight 06/01/2020 9: 42 PM RATE EXAMINER 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 Procedures [facility] DEPARTMENT OF NEUROLOGY NEUROMUSCULAR ELECTRODIAGNOSTIC LABORATORY CLINICAL ELECTROMYOGRAPHY REPORT Patient: Yessy Donaldson Birthdate: 1955 Study No: [id number] MRN No: [id number] Referring M.D.: Adrien Benitez,* Date of Study:01/02/2022 Examined by: Adrien Benitez MD PhD REASON FOR REFERRAL: A 66-year-old with diffuse muscle pain and additional sensory symptoms in the left greater than right lower limb. Query polyneuropathy. SUMMARY OF FINDINGS: 1) Left peroneal (recorded from the EDB and TA) and tibial motor NCSs were normal except for slightly small peroneal CMAPs recorded from the EDB. 2) Bilateral sural antidromic sensory NCSs were normal without any notable kmfl-lh-oldk differences. 3) Bilateral tibial H-reflex studies showed normal minimal latencies without any notable bctk-hm-cglf difference. 4) Needle EMG of the left fourth dorsal interosseous pedis and peroneus tertius was normal. Temperature was maintained above 32??C in the hand and above 30??C in the feet for all NCSs. CONCLUSION/INTERPRETATION: This study shows no electrodiagnostic evidence of a large fiber polyneuropathy. The slightly small left peroneal CMAPs recorded from the EDB are a nonspecific finding in isolation, and can be seen inthe setting of local foot trauma and/or anterior tarsal tunnel syndrome. Note that this form of testing cannot rule out a small fiber polyneuropathy and clinical correlation is advised. Adrien Benitez MD PhD Electromyographer MAster. By signing this report, the attending Electromyographer certifies that he/she personally reviewed the electrodiagnostic study and edited the report to fully conform with his/her intent. Abbreviations : CMAP = compound muscle action potential SNAP = sensory nerve action potential CNAP = combined nerve action potential MUP = motor unit potential Fib = fibrillation PSW = positive sharp wave NCS = nerve conduction study RNS = repetitive nerve stimulation Inquiries regarding study/report - call . Appointments - call . Fax no.: . Our correspondence address : [address], [address] [id number] [facility] Nerve / Sites Latency Amplitude Segments Distance Lat Diff Velocity ms mV mm ms m/s L Peroneal - EDB Ankle 4.27 1.5 Ankle - EDB 100 Fib head 9.52 1.4 Fib head - Ankle 240 5.25 45.7 Pop fossa 10.44 1.4 Pop fossa - Fib head 80 0.92 87.3 Pop fossa - Ankle 6.17 L Tibial - AH Ankle 3.92 14.9 Ankle - AH 80 Pop fossa 10.58 11.1 Pop fossa - Ankle 310 6.67 46.5 L Peroneal - Tib Ant Fib Head 3.33 5.5 Fib Head - Tib Ant 110 Pop fossa 4.46 5.5 Pop fossa - Fib Head 80 1.13 71.1 SNC Nerve / Sites Onset Lat Peak Lat Amplitude OnsetDiff Distance Cond Alvaro ms ms ??V ms mm m/s L Sural - Ankle (Calf) Calf 2.1 3.0 11 2.1 140 66 R Sural - Ankle (Calf) Calf 2.6 3.5 12 2.6 140 53 H Reflex Nerve H Lat Lat Hmax ms ms R Tibial - Soleus 27.4 29.2 L Tibial - Soleus 27.5 27.9 Summary Insertional Spontaneous MUAP Comments Muscle Nerve Roots Activity Fib PSW Fasc Other Dur. Amp Poly Recruit Activate Comments L. Peroneus tertius Deep peroneal (Fibular) L5-S1 Normal None None None . Normal Normal None NormalNormal . L. Dorsal interossei (pedis) III & IV Lateral plantar S1-S2 Normal None None None . Normal Normal None Normal Normal . documented in this encounter Plan of Treatment Not on file documented as of this encounter Visit Diagnoses Diagnosis Bilateral sciatica- Primary Sciatica documented in this encounter Care Teams Long Term Care Social Worker Relationship Specialty Start Date End Date Nathalie Jain MD [address] [employer] [place] [address] PCP - General Internal Medicine 01/10/21 09/22/22 documented as of this encounter
--- OUTSIDE RECORDS SUMMARY | 2024-04-01 07:37 | XMS_ITS | Encounter Summary ---
Author Organization [facility] Address [address] [place] [address] Phone Care Team Providers Care Concrete Stone Finisher Name Role Phone Nathalie Jain MD Primary Care Provider [phone]- [phone] Reason for Visit * Consultation (Routine) - Closed Specialty Diagnoses / Procedures Referred By Contac t Referred To Contact Neurology Diagnoses Weakness Nathalie Jain MD [place] [employer] [place] [address] Phone: tel: fax: Adrien Benitez MD PhD [address] [place] [address] Phone: tel: fax: Referral ID Status Reason Start Date Expiration Date V isits Requested Visits Authorized [id number] Closed Specialty Services Required 08/13/2021 09/12/2022 1 1 Encounter Details Date Type Department Care Team (Late st Contact Info) Description 01/02/2022 1:00 PM CDT Office Visit [facility] Neuro Muscle [address] [facility] Advanced [facility] 6th [place] [address] [place] [address] Adrien Benitez MD PhD [address] [place] [address] Muscle pain (Primary Dx); Weakness Social History Tobacco Use Types Packs/Day Years [...] file Legal Sex Female 8:13 AM SALES 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 Gender Identity Female 06/01/2020 9:42 PM SALES 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 TRAINEE Sexual Orientation Straight 06/01/2020 9: 42 PM SALES 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 TRAINEE 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 on file Not on file Not on file documented as of this encounter Last Filed Vital Signs Vital Sign Reading Time Taken Comments Blood Pressure 118/75 01/02/2022 12:35 PM CDT Pulse 101 01/02/2022 12:35 PM CDT Temperature - - Respiratory Rate - - Oxygen Saturation - - Inhaled Oxygen Concentration - - Weight 63.5 kg (140 lb) 01/02/2022 12:35 PM CDT Height 154.9 cm (5' 1 ) 01/02/2022 12:35 PM CDT Body Mass Index 26.45 01/02/2022 12:35 PM CDT documented in this encounter Patient Instructions * Patient Instructions* Marialuisa Adames MD PhD - 01/02/2022 1:00 PM CDT Obtain blood work today Follow up as needed or if your symptoms worsen documented in this encounter Progress Notes * Marialuisa Adames MD PhD - 01/02/2022 1:00 PM CDT Patient Name: YESSY NIXON Medical Record Number (MRN): [id number] Date of (): 1955 Encounter Date: 01/02/2022 Chief Complaint Yessy Nixon is a 66 y.o. female referred by Dr. Lakeisha Jain for new evaluation and treatment of hip flexor weakness, imbalance, and whole body pain. HPI Yessy Nixon is a 66 y.o. female with PMH bicuspid aortic valve s/p AVR on warfarin, knee OA and hip bursitis b/l, fibromyalgia, lumbar radiculopathy, and L CTS s/p release who presents for imbalance, hip flexor weakness and whole body pain. Pt reports that prior to 2019 she only had mild pain from arthritis, but in 2019 she was diagnosed with L sciatica and subsequent to that, she feels has had continually worsening pain. She describes her pain as muscle tightness with aching and tenderness that is exacerbated by exercise and improvedwith heat and steroids (that she was once given for a rash). Her muscle pain is worst in her L glute and hip but she also has muscle pain in her neck, back, b/l calves, b/l shoulders. It is improved with GBP as she notes that her pain is worse when she misses a dose. She also uses CBD cream and feels that helps. It has worsened in the last year in her hip and her neck in particular. She denies dark urine. Denies recurrent fevers, diplopia, ptosis, facial weakness, drooling, difficulty swallowing, change in voice, neck weakness, difficulty holding her arms over her head. EndorsesDOE with walking long distances and when her pain is worse. Denies rashes, changes in skin/nails, dry mouth, recurrent cavities despite good oral hygiene, or swelling/tenderness of the salivary glands. Endorses dry eyes. Denies renal problems. Denies injuries to the neck/back or joints and denies infections of the joints. She has occasional stabbing pains in her legs. Her pain is worst in her hips L>R. She has tingling/numbness in her L leg primarily on the lateral side. She notes that she drops things out of her R hand and was told by a physical therapist that her R hand had lost muscle mass. She feels weakness in her L leg with walking long distances. She reports two falls int he last year. She tripped over a child's feet both times. She feels that she has been clumsy her whole life but has been tripping over her feet more for the last year or two. Labs: 08/2021: ESR, CK, A1c wnl 06/2020: RF and QUINTON neg 12/2020: ESR, CRP, CK, aldolase, CCP all normal/neg, mildly elevated AST 39 and BUN 29 02/2021: Myositis Ab panel, QUINTON, TSH wnl/neg. AST 48, ALT 36, BUN 32. 03/2021: iron panel, ferritin, acute hep panel neg/wnl. AST 42. Vit D 20. She reports she has had two prior EMG/NCSs: one in 2009 that showed L CTS, and one in 11/2020 that was normal. She reports she had an MRI of her neck and low back on 12/31, the results of which are not availablefor review at this time. Meds: GBP 300 BID, celecoxib 200 BID Prior failed therapies: PGB - rash, flexeril - somnolence, cymbalta - ineffective, PT ineffective, injections with pain management - ineffective FHx: denies history of autoimmune, muscle, or nerve diseases. Father and 5 sisters have OA. Allergies Allergen Reactions Pregabalin Unknown and Rash Current Outpatient Medications Medication Sig Dispense Refill COVID-19 mRNA,[id number] ([employer]) 30 mcg/0.3 mL suspension for reconstitution albuterol HFA (ProAir HFA) 90 mcg/actuation inhaler Inhale 2 puffs every 4 (four) hours as needed for wheezing 1 Inhaler 1 amoxicillin (AMOXIL) 500 mg tablet/capsule Take 4 caps (2000 mg) 1 hour prior to procedure. 4 tablet/capsule 3 aspirin 81 mg tablet Take one by mouth one time per day 0 0 atorvastatin (LIPITOR) 20 mg tablet TAKE 1 TABLET BY MOUTH EVERY DAY 90 tablet 0 CALCIUM CITRATE ORAL celecoxib (CeleBREX) 200 mg capsule Take 1 capsule (200 mg total) by mouth 2 (two) times a day 60 capsule 0 cholecalciferol (VITAMIN D-3) 1,000 unit capsule gabapentin (NEURONTIN) 300 mg capsule Take 300 mg by mouth 2 (two) times a day LATANOPROST OPHT warfarin (COUMADIN) 2 mg tablet TAKE 2 TABLETS BY MOUTH EVERY DAY 60 tablet 0 warfarin (COUMADIN) 2.5 mg tablet No current facility-administered medications for this visit. Patient Active Problem List Diagnosis Bicuspid aortic valve H/O mechanical aortic valve replacement Chronic anticoagulation Osteoarthritis of knee Prepatellar bursitis Eczema Keratosis, senilis Eczema of hand Menopause Moderate episode of recurrent major depressive disorder (HCC) Myalgia Annual physical exam Bilateral sciatica BMI 26.0-26.9,adult Arthralgia Asthma Mixed hyperlipidemia Past Medical History: Diagnosis Date Arthritis Asthma [...] ? MITRAL VALVE REPLACEMENT 10/2008 TOE SURGERY Family History Problem Relation Age of Onset Other Father [place] age 50, CABG; Heart attack Father Arthritis Father Hearing loss Father Other (brain tumor) Sister Other Mother H/O CVA, 2012; Stroke Mother Vision loss Mother Clotting disorder Mother Other Sister MVP; Cancer Sister Arthritis Sister Diabetes Sister Arthritis Sister defects Son Developmental delay Son Hyperlipidemia Son Vision loss Son Social History Tobacco Use Smoking status: Never Smokeless tobacco: Never Substance and Sexual Activity Drug use: Never Sexual activity: Not Currently Partners: Male control/protection: Post-menopausal, Vasectomy Alcohol Use: Not on file Vital Signs Vitals: 01/02/22 1235 BP: 118/75 BP Location: Left arm Patient Position: Sitting Pulse: 101 Weight: 63.5 kg (140 lb) Height: 154.9 cm (5' 1 ) Review of Systems Review of systems per HPI and otherwise all systems are negative Physical Exam GENERAL: Appears stated age, sitting up comfortably in chair HEENT: NC/AT, sclera anicteric, oropharynx clear, MMM CV: regular rate and rhythm LUNGS: no increased work of breathing on room air ABDOMEN: soft, nontender, nondistended EXTREMITIES: warm and well-perfused, no edema, no deformities. TTP of the b/l quads, calves, and traps with additional mild TTP diffusely. SKIN: warm and dry, no lesions or rashes MENTAL STATUS: Awake, alert, fully oriented and provides a comprehensive history. LANGUAGE: Fluent. Follows verbal commands. CRANIAL NERVES: Extraocular motions intact without nystagmus. Facial sensation intact to light touch bilaterally. Facial movements full without asymmetry including strong eyebrow raise, eye closure, cheek puff, and lip pursing. Hearing intact bilaterally. Palate raises symmetrically. No dysphonia. SCMs and shoulder shrug intact and symmetric. Tongue extends midline and pushes strongly into cheeksbilaterally. MOTOR: Atrophy of the intrinsic hand muscles bilaterally, normal tone, no pronator drift, finger taps slowed with decreased amplitude symmetrically, orbiting around the L (pt is R handed). Neck flexion/extension 4+ to 5/5, primarily effort limited. Confrontational Strength Testing: Right Left Deltoid 5 5 Bicep 5 5 Tricep 5 5 Wrist flexion 5 5 Wrist extension 5 5 Intrinsic hand 5 5 Psoas 5 4+ Quad 5 5 Hamstring 5 5 Gastroc 5 5 Tibialis anterior 4++ 5 Dynamometry (R, L): FDI 6, 7 APB 8, 7 IP 31, 27 TA 49, 56 SENSORY: -- Light touch: intact and symmetric throughout -- Pinprick: intact and symmetric throughout -- Proprioception: intact at distal joints throughout -- Temperature: impaired in lateral R calf -- Vibration with [employer]book-IntelligentMDx tuning fork (black scale): Right Left forehead 6/8 Index finger DIP 6/8 6/8 1st MTP 7/8 5.5/8 REFLEXES: 2+ brisk R biceps>L, trace Overton on L, and otherwise 2+ brisk and symmetric throughout. No clonus. Plantar reflex down-going bilaterally. COORDINATION: No dysmetria on buuetn-qkju-zosyxz bilaterally. GAIT: careful/cautions gait, no imbalance, narrow base, one-step turn. Intact tandem. Assessment/Plan Diagnosis Plan 1. Muscle pain LINH Antibody Evaluation with Reflex Vitamin B12 Immunotyping, serum 2. Weakness Ambulatory referral to Neurology Yessy Nixon is a 66 y.o. female with history of chronic pain due to knee OA and hip bursitisb/l, fibromyalgia, lumbar radiculopathy, and L CTS s/p release who presents for imbalance, hip flexor weakness and whole body pain. Her description of bilateral muscle aching that is relived with gabapentin could be consistent with a small fiber neuropathy. While the majority of small fiber neuropathies are idiopathic and are treated symptomatically, rarely workup may reveal a treatable underlying cause for small fiber neuropathy such as Sjogren syndrome or amyloid. We will plan to send serum screening labs to evaluate for rare causes of treatable etiologies of small fiber neuropathy. We alsodiscussed the option of pursuing a skin biopsy with the understanding that it would be helpful for diagnosis but would not be likely to change advisor. She preferred to defer the decision at this time and consider it in the future. Plan Serum labs: LINH, B12, serum immunotyping She will consider whether she would want a skin biopsy for diagnotic purposes with the understanding that it would not alter treatment. Return if symptoms worsen or fail to improve. Future Appointments Date Time Provider Department Center 02/13/2022 2:00 PM [facility] ECHO 1 HCG PROC Specialty 01/07/2023 11:30 AM Bindu Gaines MD [facility] Specialty Thank you for allowing me to participate in the care of your patient. If you have any questions, feel free to contact me via [email or web address]. Sincerely, Marialuisa Adames MD PhD Neurology, PGY-4 Cosigned by Adrien Benitez MD PhD at 01/30/2022 1:37 PM CDT Associated attestation - Adrien Benitez MD PhD - 01/30/2022 1:37 PM CDT I have seen and examined the patient. I agree with the findings and plan of care as documented in the resident/fellow's note. My total encounter time on 01/02/2022 was 60 minutes which was spent in the activities documented in the note. This includes time spent prior to the visit and after the visitin direct care of the patient. This time does not include time spent in any separately reportable services. This note is complete but an addendum is likely to follow at a later date. documented in this encounter Plan of Treatment Not on file documented as of this encounter Results * Immunotyping, serum (01/02/2022 3:13 PM CDT) Pathologist [facility] Immunofixation Please see comment [facility] Comment: NO PARAPROTEIN DETECTED Reviewed and signed by Henok Chaney MD, PhD on 01/03/2022 Blood 01/02/2022 3:13 PM CDT 01/02/2022 3:32 PM CDT Marialuisa Adames MD PhD LAB BLOOD ORDERABLE S Final Result [facility] [place] [address] * Vitamin B12 (01/02/2022 3:13 PM CDT) [facility] Vitamin B12 649 230 - 1,250 pg/mL [facility] Blood 01/02/2022 3:13 PM CDT 01/02/2022 3:33 PM CDT Result [facility] Marialuisa Adames MD PhD LAB BLOOD ORDERABLE S Final Result Performing Organization Address City/[facility] Co de Phone Number [facility] Department [place] [address] * LINH Antibody Evaluation with Reflex (01/02/2022 3:13 PM CDT) [facility] LINH ab Negative Negative [facility] Comment: Interpretive Data Positive Screens will be reflexed to specific testing for the following antigens: Jasmin-1 Ab, CURTAIN CUTTER HAND Ab, Scl-70 Ab, Alex Ab, SS-A/Ro Ab, and SS-B/La Ab. Further testing for dsDNA, Centromere, or Ribosomal P antibodies is suggested in patient with a positive screen and negative specific antibodies. Current interpretive data was last revised on 16. Blood 01/02/2022 3:13 PM CDT 01/02/2022 3:32 PM CDT Marialuisa Adames MD PhD LAB BLOOD ORDERABLE S Final Result [facility] [place] [address] documented in this encounter Visit Diagnoses Diagnosis Muscle pain- Primary Unspecified myalgia and myositis Weakness Other malaise and fatigue documented in this encounter Discontinued Medications Medication Sig Discontinue Reason Start Date End Da te albuterol (PROAIR DIGIHALER) 90 mcg/actuation inhaler Duplicate order 01/08/2021 01/02/2022 documented as of this encounter Historical Medications * This list may reflect changes made after this encounter. gabapentin (NEURONTIN) 300 mg capsule Take 2 capsules (600 mg total) by mouth 3 (three) times a day as needed 11/22/2021 LATANOPROST OPHT Administer 1 drop into affected eye(s) nightly warfarin (COUMADIN) 2.5 mg tablet 07/23/2020 4 albuterol (PROAIR DIGIHALER) 90 mcg/actuation inhaler 01/08/2021 2 CALCIUM CITRATE ORAL 4 cholecalciferol (VITAMIN D-3) 1,000 unit capsule 4 COVID-19 mRNA,[id number] (PFIZER) 30 mcg/0.3 mL suspension for reconstitution 01/24/2021 4 added in this encounter Orders Outpatient Referral Count Last Ordered Date Fir st Ordered Date AMB REFERRAL TO NEUROLOGY 1 01/02/2022 documented in this encounter Care Teams Concrete Stone Finisher Relationship Specialty Start Date End Date Nathalie Jain MD [address] [place] [address] PCP - General Internal Medicine 01/10/21 09/22/22 documented as of this encounter
--- OUTSIDE RECORDS SUMMARY | 2024-04-01 07:37 | XMS_ITS | Encounter Summary ---
Author Organization [facility] Address [address] [place] [address] Care Team Providers Care Training Mgr Name Role Phone Nathalie Jain MD Primary Care Provider [phone]- [phone] Encounter Details Date Type Department Care Team (Latest Contact Info) Description 07/29/2022 Anticoagulation Visit [facility] Cardiology [address] [place] [address] Penny Wilks, BHAVANA H/O mechanical [...] on file Legal Sex Female 8:13 AM SCHOOL LUNCH MONITOR Gender Identity Female 06/01/2020 9:42 PM SCHOOL LUNCH MONITOR Sexual Orientation Straight 06/01/2020 9: 42 PM SCHOOL LUNCH MONITOR 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
--- OUTSIDE RECORDS SUMMARY | 2024-04-01 07:37 | XMS_ITS | Encounter Summary ---
Author Organization [facility] Address [address] [place] [address] Care Team Providers Care Adjunct Latin Professor Name Role Phone Nathalie Jain MD Primary Care Provider +1- [phone] Encounter Details Date Type Department Care Team (Latest Contact Info) Description 03/28/[address] 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
--- OUTSIDE RECORDS SUMMARY | 2024-04-01 07:37 | XMS_ITS | Encounter Summary ---
Author Organization [facility] Address [address] [place] [address] Care Team Providers Care Supervisor Instrument Mechanics Name Role Phone Nathalie Jain MD Primary Care Provider +1- [phone] Reason for Visit * Reason Onset Date Comments Scheduling Appointments 12/24/2021 Encounter Details Date Type Department Care Team (Late st Contact Info) Description 12/24/2021 Telephone [facility] Cardiology [address] [place] [address] Juany Brantley MA Scheduling Appointments Social History Tobacco Use Types Packs/Day Years [...] file Legal Sex Female 8:13 AM MEDICAL TECHNOLOGIST BLOOD BANK Gender Identity Female 06/01/2020 9:42 PM MEDICAL TECHNOLOGIST BLOOD BANK Sexual Orientation Straight 06/01/2020 9: 42 PM MEDICAL TECHNOLOGIST BLOOD BANK Occupation Industry Job Start Date Job End Date [employer] Not on file Not on file Not on file documented as of this encounter Miscellaneous Notes * Telephone Encounter - Juany Brantley MA - 12/24/2021 8:58 AM CDT 12/24/21- LM asking pt to call office regarding appt. We need to r./s bc CT will be leaving early. documented in this encounter Plan of Treatment Not on file documented as of this encounter Visit Diagnoses Not on filedocumented in this encounter Care Teams Supervisor Instrument Mechanics Relationship Specialty Start Date End Date Nathalie Jain MD [address] [place] [address] PCP - General Internal Medicine 01/10/21 09/22/22 documented as of this encounter
--- OUTSIDE RECORDS SUMMARY | 2024-04-01 07:37 | XMS_ITS | Encounter Summary ---
Author Organization [facility] Address [address] [place] [address] Phone Care Team Providers Care Field Nurse Name Role Phone Nathalie Jain MD Primary Care Provider +1- [phone] Encounter Details Date Type Department Care Team (Late st Contact Info) Description 02/17/2022 Orders Only [facility] Scanning, Provider Social History Tobacco Use Types [...] on file Legal Sex Female 8:13 AM FIRST HELPER Gender Identity Female 06/01/2020 9:42 PM FIRST HELPER Sexual Orientation Straight 06/01/2020 9: 42 PM FIRST HELPER 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 Not on file Not on file documented as of this encounter Plan of Treatment Not on file documented as of this encounter Procedures Procedure Name Priority Date/Time Associated Diagnosis Comments SCAN - RADIOLOGY/IMAGING 02/17/2022 4:58 PM FIRST HELPER documented in this encounter Results * SCAN - RADIOLOGY/IMAGING (02/17/2022 4:58 PM FIRST HELPER) Anatomical Region Laterality Modality Other us Provider Scanning Final Result documented in this encounter Visit Diagnoses Not on filedocumented in this encounter Care Teams Field Nurse Relationship Specialty Start Date End Date Nathalie Jain MD [address] [employer] [facility] [place] [address] PCP - General Internal Medicine 01/10/21 09/22/22 documented as of this encounter
--- OUTSIDE RECORDS SUMMARY | 2024-04-01 07:37 | XMS_ITS | Encounter Summary ---
Author Organization [facility] Address [address] [place] [address] Care Team Providers Care Computer Typesetter Name Role Phone Nathalie Jain MD Primary Care Provider +1- [phone] Encounter Details Date Type Department Care Team (Latest Contact Info) Description 06/13/2022 Anticoagulation Visit [facility] Cardiology [address] [place] [address] Huma Trevizo RN H/O mechanical [...] on file Legal Sex Female 8:13 AM WHARF OPERATOR Gender Identity Female 06/01/2020 9:42 PM WHARF OPERATOR Sexual Orientation Straight 06/01/2020 9: 42 PM WHARF OPERATOR 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
--- OUTSIDE RECORDS SUMMARY | 2024-04-01 07:37 | XMS_ITS | Encounter Summary ---
Author Organization [facility] Address [address] [place] [address] Care Team Providers Care Chief Of Safety And Protection Name Role Phone Nathalie Jain MD Primary Care Provider +1- [phone] Encounter Details Date Type Department Care Team (Latest Contact Info) Description 02/27/2022 Anticoagulation Visit [facility] Cardiology [address] [place] [address] Juany Madrid RN H/O mechanical [...] on file Legal Sex Female 8:13 AM WIRELESS CONSTRUCTION MANAGER Gender Identity Female 06/01/2020 9:42 PM WIRELESS CONSTRUCTION MANAGER Sexual Orientation Straight 06/01/2020 9: 42 PM WIRELESS CONSTRUCTION MANAGER 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
--- OUTSIDE RECORDS SUMMARY | 2024-04-01 07:37 | XMS_ITS | Encounter Summary ---
Author Organization [facility] Address [address] [place] [address] Care Team Providers Care Roller Skate Assembler Name Role Phone Nathalie Jain MD Primary Care Provider +1- [phone] Encounter Details Date Type Department Care Team (Latest Contact Info) Description 09/16/2022 Anticoagulation Visit [facility] Cardiology [address] [place] [address] Penny Wilks, BHAVANA H/O mechanical [...] on file Legal Sex Female 8:13 AM MATERIAL HAULER Gender Identity Female 06/01/2020 9:42 PM MATERIAL HAULER Sexual Orientation Straight 06/01/2020 9: 42 PM MATERIAL HAULER 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
--- OUTSIDE RECORDS SUMMARY | 2024-04-01 07:37 | XMS_ITS | Encounter Summary ---
Author Organization [facility] Address [address] [place] [address] Care Team Providers Care Rod Piler Name Role Phone Nathalie Jain MD Primary Care Provider +1- [phone] Encounter Details Date Type Department Care Team (Latest Contact Info) Description 07/14/2022 Anticoagulation Visit [facility] Cardiology [address] [place] [address] Penny Wilks, BHAVANA H/O mechanical [...] on file Legal Sex Female 8:13 AM CREDIT ADVISOR Gender Identity Female 06/01/2020 9:42 PM CREDIT ADVISOR Sexual Orientation Straight 06/01/2020 9: 42 PM CREDIT ADVISOR 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
--- OUTSIDE RECORDS SUMMARY | 2024-04-01 07:37 | XMS_ITS | Encounter Summary ---
Author Organization [facility] Address [address] [place] [address] Care Team Providers Care Casting Supervisor Name Role Phone Nathalie Jain MD Primary Care Provider +1- [phone] Encounter Details Date Type Department Care Team (Latest Contact Info) Description 02/20/2022 Anticoagulation Visit [facility] Cardiology [address] [place] [address] Penny Wilks, BHAVANA H/O mechanical [...] file Legal Sex Female 8:13 AM SLIP PRESSER Gender Identity Female 06/01/2020 9:42 PM SLIP PRESSER Sexual Orientation Straight 06/01/2020 9: 42 PM SLIP PRESSER 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
--- OUTSIDE RECORDS SUMMARY | 2024-04-01 07:37 | XMS_ITS | Encounter Summary ---
Author Organization [facility] Address [address] [place] [address] Care Team Providers Care Visual Effects Editor Name Role Phone Nathalie Jain MD Primary Care Provider +1- [phone] Encounter Details Date Type Department Care Team (Latest Contact Info) Description 07/21/2022 Anticoagulation Visit [facility] Cardiology [address] [place] [address] Penny Wilks, BHAVANA H/O mechanical [...] on file Legal Sex Female 8:13 AM TOXICOLOGY TEACHER Gender Identity Female 06/01/2020 9:42 PM TOXICOLOGY TEACHER Sexual Orientation Straight 06/01/2020 9: 42 PM TOXICOLOGY TEACHER 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 Not on file Not on file documented as of this encounter Plan of Treatment Not on file documented as of this encounter Procedures Procedure Name Priority Date/Time Associated Diagnosis Comments PROTIME-INR Routine 07/21/2022 documented in this encounter Results * (ABNORMAL) Protime-INR (07/21/2022) INR 2.70(A) 0.9 - 1.1 [facility] Blood us Historical Provider LAB BLOOD ORDERABLES Edit ed Result - Final [facility] documented in this encounter Visit Diagnoses Diagnosis H/O mechanical aortic valve replacement- Primary Chronic anticoagulation Encounter for long-term (current) 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s documented in this encounter Care Teams Visual Effects Editor Relationship Specialty Start Date End Date Nathalie Jain MD [address] [place] [address] PCP - General Internal Medicine 01/10/21 09/22/22 documented as of this encounter
--- OUTSIDE RECORDS SUMMARY | 2024-04-01 07:37 | XMS_ITS | Encounter Summary ---
Author Organization [facility] Address [address] [place] [address] Care Team Providers Care Guitar Player Name Role Phone Nathalie Jain MD Primary Care Provider +1- [phone] Encounter Details Date Type Department Care Team (Late st Contact Info) Description 01/02/2022 3:05 PM CDT Lab [facility] Advanced Medicine 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 Not on file Not on file documented as of this encounter Plan of Treatment Not on file documented as of this encounter Procedures Procedure Name Priority Date/Time Associated Diagnosis Comments IMMUNOTYPING Routine 01/02/2022 3:13 PM CDT Muscle pain [facility] ANTIBODY EVALUATION WITH REFLEX Routine 01/02/2022 3:13 PM CDT Muscle pain VITAMIN B12 Routine 01/02/2022 3:13 PM CDT Muscle pain documented in this encounter Results * LINH Antibody Evaluation with Reflex (01/02/2022 3:13 PM CDT) LINH ab Negative Negative [facility] Comment: Interpretive Data Positive Screens will be reflexed to specific testing for the following antigens: Jasmin-1 Ab, SCADA TECHNICIAN Ab, Scl-70 Ab, Alex Ab, SS-A/Ro Ab, and SS-B/La Ab. Further testing for dsDNA, Centromere, or Ribosomal P antibodies is suggested in patient with a positive screen and negative specific antibodies. Current interpretive data was last revised on 16. Blood 01/02/2022 3:13 PM CDT 01/02/2022 3:32 PM CDT Marialuisa Adames MD PhD LAB BLOOD ORDERABLE S Final Result Performing Organization Address [facility]/ZIP Co de Phone Number [facility] [place] [place] [address] * Vitamin B12 (01/02/2022 3:13 PM CDT) Vitamin B12 649 230 - 1,250 pg/mL [facility] Blood 01/02/2022 3:13 PM CDT 01/02/2022 3:33 PM CDT us Marialuisa Adames MD PhD LAB BLOOD ORDERABLE S Final Result Performing Organization Address [facility]/ZIP Co de Phone Number [facility] [place] [address] * Immunotyping, serum (01/02/2022 3:13 PM CDT) Immunofixation Please see comment [facility] Comment: NO PARAPROTEIN DETECTED Reviewed and signed by Henok Chaney MD, PhD on 01/03/2022 Blood 01/02/2022 3:13 PM CDT 01/02/2022 3:32 PM CDT us Marialuisa Adames MD PhD LAB BLOOD ORDERABLE S Final Result [facility] Department [place] [address] documented in this encounter Visit Diagnoses Diagnosis Muscle pain Unspecified myalgia and myositis documented in this encounter Care Teams Guitar Player Relationship Specialty Start Date End Date Nathalie Jain MD [address] [employer] [place] [address] PCP - General Internal Medicine 01/10/21 09/22/22 documented as of this encounter
--- OUTSIDE RECORDS SUMMARY | 2024-04-01 07:37 | XMS_ITS | Encounter Summary ---
Author Organization [facility] Address [address] [place] [address] Care Team Providers Care Rail Car Repairer Name Role Phone Nathalie Jain MD Primary Care Provider +1- [phone] Encounter Details Date Type Department Care Team (Latest Contact Info) Description 07/18/2022 Anticoagulation Visit [facility] Cardiology [address] [place] [address] Penny Wilks, BHAVANA H/O mechanical [...] on file Legal Sex Female 8:13 AM VP PRODUCT MANAGEMENT Gender Identity Female 06/01/2020 9:42 PM VP PRODUCT MANAGEMENT Sexual Orientation Straight 06/01/2020 9: 42 PM VP PRODUCT MANAGEMENT 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 Not on file Not on file documented as of this encounter Plan of Treatment Not on file documented as of this encounter Procedures Procedure Name Priority Date/Time Associated Diagnosis Comments PROTIME-INR Routine 07/18/2022 documented in this encounter Results * (ABNORMAL) Protime-INR (07/18/2022) INR 2.00(A) 0.9 - 1.1 EXTERNAL LAB Blood us Historical Provider LAB BLOOD ORDERABLES Edit ed Result - Final EXTERNAL LAB documented in this encounter Visit Diagnoses Diagnosis H/O mechanical aortic valve replacement- Primary Chronic anticoagulation Encounter for long-term (current) 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s documented in this encounter Care Teams Rail Car Repairer Relationship Specialty Start Date End Date Nathalie Jain MD [address] [place] [place] [address] PCP - General Internal Medicine 01/10/21 09/22/22 documented as of this encounter
--- OUTSIDE RECORDS SUMMARY | 2024-04-01 07:37 | XMS_ITS | Encounter Summary ---
Author Organization [facility] Address [address] [place] [address] Care Team Providers Care Forestry Support Specialist Name Role Phone Nathalie Jain MD Primary Care Provider +1- [phone] Encounter Details Date Type Department Care Team (Latest Contact Info) Description 09/02/2022 Anticoagulation Visit [facility] Cardiology [address] [place] [address] Huma Trevizo RN H/O mechanical [...] on file Legal Sex Female 8:13 AM MASTER ESTHETICIAN Gender Identity Female 06/01/2020 9:42 PM MASTER ESTHETICIAN Sexual Orientation Straight 06/01/2020 9: 42 PM MASTER ESTHETICIAN 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 Not on file Not on file documented as of this encounter Plan of Treatment Not on file documented as of this encounter Procedures Procedure Name Priority Date/Time Associated Diagnosis Comments PROTIME-INR Routine 09/01/2022 documented in this encounter Results * (ABNORMAL) Protime-INR (09/01/2022) INR 1.90(A) 0.9 - 1.1 EXTERNAL LAB Blood us Historical Provider LAB BLOOD ORDERABLES Antonina hernandez Result EXTERNAL LAB documented in this encounter Visit Diagnoses Diagnosis H/O mechanical aortic valve replacement- Primary Chronic anticoagulation Encounter for long-term (current) 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s documented in this encounter Care Teams Forestry Support Specialist Relationship Specialty Start Date End Date Nathalie Jain MD [address] [facility] [place] [address] PCP - General Internal Medicine 01/10/21 09/22/22 documented as of this encounter
--- OUTSIDE RECORDS SUMMARY | 2024-04-01 07:37 | XMS_ITS | Encounter Summary ---
Author Organization [facility] Address [address] [place] [address] Care Team Providers Care Aws Consultant Name Role Phone Nathalie Jain MD Primary Care Provider +1- [phone] Reason for Visit * Cardiology (Routine) - Closed Specialty Diagnoses / Procedures Referred By Contac t Referred To Contact Diagnoses H/O mechanical aortic valve replacement Procedures Transthoracic Echo (TTE) Complete W Doppler/CF Su Fan NP [address] [facility] [address] [address] Phone: tel: fax: [facility] Referral ID Status Reason Start Date Expiration Date Visits Re quested Visits Authorized [id number] Closed 02/06/2022 04/06/2022 1 1 Encounter Details Date Type Department Care Team (Latest Contact Info) Description 02/13/2022 2:00 PM CDT Ancillary Procedure [facility] Cardiology [address] [place] [phone] H/O mechanical aortic valve replacement Social History [...] on file Legal Sex Female 8:13 AM FIRE ALARM MECHANIC Gender Identity Female 06/01/2020 9:42 PM FIRE ALARM MECHANIC Sexual Orientation Straight 06/01/2020 9: 42 PM FIRE ALARM MECHANIC 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 Not on file Not on file documented as of this encounter Plan of Treatment Not on file documented as of this encounter Procedures Procedure Name Priority Date/Time Associated Diagnosis Comments TRANSTHORACIC ECHO (TTE) COMPLETE W DOPPLER/CF WO CONTRAST Routine 02/13/2022 2:39 PM CDT H/O mechanical aortic valve replacement documented in this encounter Results * TRANSTHORACIC ECHO (TTE) COMPLETE W DOPPLER/CF WO CONTRAST (02/13/2022 2:39 PM CDT) Anatomical Region Laterality Modality Ultrasound 02/13/2022 1:42 PM CDT Narrative 02/13/2022 4:44 PM CDT [facility] Cardiology [address] [facility] [address] [id number] [address] [facility] [address] [address] P:[phone] P:[phone] Echocardiographic Report Patient Name: YESSY NIXON : 1955 Study Date: 02/13/2022 1:42:01 PM Gender: F Tech: Location: [place] Ref.Provider: SU FAN Height(Cm): 155 BSA: 1.61 [...] Findings: Interpretation Site: Exam was interpreted at [facility]. Left Ventricle: Normal left ventricular size. [...] dilated. Electronically Signed By: Dat Chauhan MD, [facility] 2022-02-13 16:44:03 CDT Procedure Note Dat Chauhan MD - 02/13/2022 [facility] Cardiology [address] [facility] [address], [place] [address] [address] [facility] [address], [place] [address] P:[phone] P:[phone] Echocardiographic Report Patient Name: YESSY NIXONPatient ID: [id number] : [id number] Date: 02/13/2022 1:42:01 PM Gender: FAccession #: [id number] Tech: Location: [place] Ref.Provider: PANTERA, CHRISTINEHeight(Cm): 155 BSA: 1.61Weight(Kg): 62.14 Heart Rate: 84BP: [...] 0.40 - 0.80 ] m/s MV Decel [id number] [ 150 - 200 ] msec PV Peak Vel1.10 [ 0.40 - 0.80 ] m/s TR Peak Vel2.25 [ 0.40 - 0.80 ] m/s TR Peak PG 20mmHg RVSP28.00 mmHg E'0.10 E/E' 7 Findings: Interpretation Site: Exam was interpreted at [facility]. Left Ventricle: Normal left ventricular size. [...] dilated. Electronically Signed By: Dat Chauhan MD, [facility] 2022-02-13 16:44:03 CDT Su Fan NP CV ECHO PROCEDURES Final Result documented in this encounter Visit Diagnoses Diagnosis H/O mechanical aortic valve replacement documented in this encounter Care Teams Aws Consultant Relationship Specialty Start Date End Date Nath[place] [address] PCP - General Internal Medicine 01/10/21 09/22/22 documented as of this encounter
--- OUTSIDE RECORDS SUMMARY | 2024-04-01 07:37 | XMS_ITS | Encounter Summary ---
Author Organization [facility] Address [address] [place] [address] Care Team Providers Care Peoples[employer]ials Name Role Phone Nathalie Jain MD Primary Care Provider [phone]- [phone] Encounter Details Date Type Department Care Team (Late st Contact Info) Description 07/15/2022 Telephone [facility] Cardiology [address] [facility] [address] [place] [address] Bindu Gaines MD [address] [place] [address] Social History Tobacco Use Types [...] on file Legal Sex Female 8:13 AM CRYPTOGRAPHIC MACHINE OPERATOR Gender Identity Female 06/01/2020 9:42 PM CRYPTOGRAPHIC MACHINE OPERATOR Sexual Orientation Straight 06/01/2020 9: 42 PM CRYPTOGRAPHIC MACHINE OPERATOR 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 Pt requesting to have a call back from Penny to discuss. Contact [phone] documented in this encounter Plan of Treatment Scheduled Orders Name Type Priority Associated Diagnoses Orde r Schedule Protime-INR Lab Routine Bicuspid aortic valve H/O mechanical aortic valve replacement Chronic anticoagulation 52 Occurrences starting 07/15/2022 until 07/16/2023 documented as of this encounter Visit Diagnoses Diagnosis Bicuspid aortic valve- Primary Congenital insufficiency of aortic valve H/O mechanical aortic valve replacement Chronic anticoagulation Encounter for long-term (current) 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s documented in this encounter Care Teams [employer] Relationship Specialty Start Date End Date Nathalie Jain MD [address] [place] [address] PCP - General Internal Medicine 01/10/21 09/22/22 documented as of this encounter
--- OUTSIDE RECORDS SUMMARY | 2024-04-01 07:37 | XMS_ITS | Encounter Summary ---
Author Organization [facility] Address [address] [place] [address] Care Team Providers Care Full Service Vending Driver Name Role Phone Nathalie Jain MD Primary Care Provider [phone]- [phone] Encounter Details Date Type Department Care Team (Latest Contact Info) Description 11/19/2021 Anticoagulation Visit [facility] Cardiology [address] [place] [address] Penny Wilks, BHAVANA H/O mechanical [...] on file Legal Sex Female 8:13 AM HOSPICE SPIRITUAL CARE COORDINATOR Gender Identity Female 06/01/2020 9:42 PM HOSPICE SPIRITUAL CARE COORDINATOR Sexual Orientation Straight 06/01/2020 9: 42 PM HOSPICE SPIRITUAL CARE COORDINATOR 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
--- OUTSIDE RECORDS SUMMARY | 2024-04-01 07:37 | XMS_ITS | Encounter Summary ---
Author Organization [facility] Address [address] [place] [address] Care Team Providers Care Energy Efficiency Specialist Name Role Phone Jose Lorenzo DO Primary Care Provider [phone] Encounter Details Date Type Department Care Team (Late st Contact Info) Description 09/23/2022 Telephone [facility] Cardiology [address] [place] [address] Bindu Gaines MD [address] [place] [address] Social History Tobacco Use Types [...] Sex Female 8:13 AM ASSISTANT PROFESSOR OF PHILOSOPHY Gender Identity Female 06/01/2020 9:42 PM ASSISTANT PROFESSOR OF PHILOSOPHY Sexual Orientation Straight 06/01/2020 9: 42 PM ASSISTANT PROFESSOR OF PHILOSOPHY Occupation Industry Job Start Date Job End Date [employer] Not on file Not on file Not on file documented as of this encounter Miscellaneous Notes * Telephone Encounter - Almaz Whyte - 09/24/2022 8:30 AM CDT Called and gave her a Dx for the insurance referral * Telephone Encounter - Juany Madrid RN - 09/23/2022 2:36 PM CDT Will forward to Almaz. * Telephone Encounter - Natalya Gardner - 09/23/2022 2:27 PM CDT Emilie calling from Dr Lorenzo office requesting get diagnostic code for her f/u. She states that itsfor her insurance referral and that essence is requiring it. Requesting call back. Contact [phone] documented in this encounter Plan of Treatment Not on file documented as of this encounter Visit Diagnoses Not on filedocumented in this encounter Care Teams Energy Efficiency Specialist Relationship Specialty Start Date End Date Jose Lorenzo DO PCP - General Family Medicine 09/23/22 05/25/23 documented as of this encounter
--- OUTSIDE RECORDS SUMMARY | 2024-04-01 07:37 | XMS_ITS | Encounter Summary ---
Author Organization [facility] Address [address] [place] [address] Care Team Providers Care Accounting Instructor Name Role Phone Nathalie Jain MD Primary Care Provider [phone]- [phone] Encounter Details Date Type Department Care Team (Latest Contact Info) Description 01/14/2022 Anticoagulation Visit [facility] Cardiology [address] [place] [address] Juany Madrid RN H/O mechanical [...] on file Legal Sex Female 8:13 AM BAND CUTTING MACHINE OPERATOR Gender Identity Female 06/01/2020 9:42 PM BAND CUTTING MACHINE OPERATOR Sexual Orientation Straight 06/01/2020 9: 42 PM BAND CUTTING MACHINE OPERATOR 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
--- OUTSIDE RECORDS SUMMARY | 2024-04-01 07:37 | XMS_ITS | Encounter Summary ---
Author Organization [facility] Address [address] [place] [address] Care Team Providers Care Masseur/Masseuse Name Role Phone Jose Lorenzo DO Primary Care Provider [phone] Encounter Details Date Type Department Care Team (Late st Contact Info) Description 10/17/2022 Telephone [facility] Cardiology [address] [place] [address] Bindu Gaines MD [address] [place] [address] Social History Tobacco Use Types [...] on file Legal Sex Female 8:13 AM MENTAL HEALTH ADVANCED PRACTICE NURSE Gender Identity Female 06/01/2020 9:42 PM MENTAL HEALTH ADVANCED PRACTICE NURSE Sexual Orientation Straight 06/01/2020 9: 42 PM MENTAL HEALTH ADVANCED PRACTICE NURSE 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 She has been taking the wrong dose. She will go Thursday am to get INR at since [facility] takes longer to get results. * Telephone Encounter - Marley Tran - 10/17/2022 1:13 PM CDT Pt requesting call in regard to Warfarin because she has been taking it wrong. States she has been taking Warfarin 6 mg on Tuesdays and 4 mg all other days. Contact: documented in this encounter Plan of Treatment Not on file documented as of this encounter Visit Diagnoses Not on filedocumented in this encounter Care Teams Masseur/Masseuse Relationship Specialty Start Date End Date Jose Lorenzo DO PCP - General Family Medicine 09/23/22 05/25/23 documented as of this encounter
--- OUTSIDE RECORDS SUMMARY | 2024-04-01 07:37 | XMS_ITS | Encounter Summary ---
Author Organization [facility] Address [address] [place] [address] Care Team Providers Care Bath Steward/Stewardess Name Role Phone Nathalie Jain MD Primary Care Provider [phone]- [phone] Encounter Details Date Type Department Care Team (Late st Contact Info) Description 11/12/2021 Telephone [facility] Cardiology [address] [facility] [address] [place] [address] Bindu Gaines MD [address] [place] [address] Social History Tobacco Use Types [...] on file Legal Sex Female 8:13 AM COMPOSING ROOM MACHINIST APPRENTICE Gender Identity Female 06/01/2020 9:42 PM COMPOSING ROOM MACHINIST APPRENTICE Sexual Orientation Straight 06/01/2020 9: 42 PM COMPOSING ROOM MACHINIST APPRENTICE 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 file Not on file Not on file documented as of this encounter Miscellaneous Notes * Telephone Encounter - Huma Trevizo RN - 11/12/2021 8:53 AM CDT See ac note * Telephone Encounter - Hira Valentin - 11/12/2021 8:42 AM CDT Pt returning nurse Huma herr for INR results.Thank you Contact:[phone] documented in this encounter Plan of Treatment Not on file documented as of this encounter Visit Diagnoses Not on filedocumented in this encounter Care Teams Bath Steward/Stewardess Relationship Specialty Start Date End Date Nathalie Jain MD [address] [facility] [facility] [place] [address] PCP - General Internal Medicine 01/10/21 09/22/22 documented as of this encounter
--- OUTSIDE RECORDS SUMMARY | 2024-04-01 07:37 | XMS_ITS | Encounter Summary ---
Author Organization [facility] Address [address] [place] [address] Care Team Providers Care Strategic Partnership Specialist Name Role Phone Nathalie Jain MD Primary Care Provider [phone]- [phone] Encounter Details Date Type Department Care Team (Latest Contact Info) Description 12/17/2021 Anticoagulation Visit [facility] Cardiology [address] [place] [address] Penny Wilks, BHAVANA H/O [...] on file Legal Sex Female 8:13 AM PROJECTION WELDING MACHINE OPERATOR Gender Identity Female 06/01/2020 9:42 PM PROJECTION WELDING MACHINE OPERATOR Sexual Orientation Straight 06/01/2020 9: 42 PM PROJECTION WELDING MACHINE OPERATOR 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
--- OUTSIDE RECORDS SUMMARY | 2024-04-01 07:37 | XMS_ITS | Encounter Summary ---
Author Organization [facility] Address [address] [place] [address] Care Team Providers Care Licensed Journeyman Electrician Name Role Phone Jose Lorenzo DO Primary Care Provider [phone] Encounter Details Date Type Department Care Team (Latest Contact Info) Description 09/23/2022 Anticoagulation Visit [facility] Cardiology [address] [place] [address] Huma Trevizo RN H/O mechanical [...] on file Legal Sex Female 8:13 AM PARKS AND RECREATION MANAGER Gender Identity Female 06/01/2020 9:42 PM PARKS AND RECREATION MANAGER Sexual Orientation Straight 06/01/2020 9: 42 PM PARKS AND RECREATION MANAGER 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
--- OUTSIDE RECORDS SUMMARY | 2024-04-01 07:37 | XMS_ITS | Encounter Summary ---
Author Organization [facility] Address [address] [place] [address] Care Team Providers Care Side Show Entertainer Name Role Phone Nathalie Jain MD Primary Care Provider [phone]- [phone] Encounter Details Date Type Department Care Team (Late st Contact Info) Description 02/14/2022 Telephone [facility] Cardiology [address] [facility] [address] [place] [address] Bindu Gaines MD [address] [place] [address] Social History Tobacco Use Types [...] on file Legal Sex Female 8:13 AM USER EXPERIENCE DESIGNER Gender Identity Female 06/01/2020 9:42 PM USER EXPERIENCE DESIGNER Sexual Orientation Straight 06/01/2020 9: 42 PM USER EXPERIENCE DESIGNER 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 She verbalized understanding. * Telephone Encounter - Marley Tran - 02/14/2022 8:17 AM CDT Pt states she tested positive for covid this morning. States she is unable to get her INR drawn today. Requesting call back. Contact: documented in this encounter Plan of Treatment Not on file documented as of this encounter Visit Diagnoses Not on filedocumented in this encounter Care Teams Side Show Entertainer Relationship Specialty Start Date End Date Nathalie Jain MD [address] [place] [address] PCP - General Internal Medicine 01/10/21 09/22/22 documented as of this encounter
--- OUTSIDE RECORDS SUMMARY | 2024-04-01 07:37 | XMS_ITS | Encounter Summary ---
Author Organization [facility] Address [address] [place] [address] Care Team Providers Care Straight Pin Making Machine Operator Name Role Phone Nathalie Jain MD Primary Care Provider [phone]- [phone] Encounter Details Date Type Department Care Team (Latest Contact Info) Description 07/11/2022 Anticoagulation Visit [facility] Cardiology [address] [place] [address] Penny Wilks, BHAVANA H/O mechanical [...] file Legal Sex Female 8:13 AM CUSTOMER ACCOUNT SPECIALIST Gender Identity Female 06/01/2020 9:42 PM CUSTOMER ACCOUNT SPECIALIST Sexual Orientation Straight 06/01/2020 9: 42 PM CUSTOMER ACCOUNT SPECIALIST 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
--- OUTSIDE RECORDS SUMMARY | 2024-04-01 07:37 | XMS_ITS | Encounter Summary ---
Author Organization [facility] Address [address] [place] [address] Care Team Providers Care Contract Administrative Assistant Name Role Phone Nathalie Jain MD Primary Care Provider [phone]- [phone] Encounter Details Date Type Department Care Team (Latest Contact Info) Description 11/12/2021 Anticoagulation Visit [facility] Cardiology [address] [place] [address] Huma Trevizo RN H/O mechanical [...] on file Legal Sex Female 8:13 AM FIRER LOCOMOTIVE CRANE Gender Identity Female 06/01/2020 9:42 PM FIRER LOCOMOTIVE CRANE Sexual Orientation Straight 06/01/2020 9: 42 PM FIRER LOCOMOTIVE CRANE 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 Not on file Not on file documented as of this encounter Plan of Treatment Not on file documented as of this encounter Visit Diagnoses Diagnosis H/O mechanical aortic valve replacement- Primary Chronic anticoagulation Encounter for long-term (current) 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s documented in this encounter Care Teams Contract Administrative Assistant Relationship Specialty Start Date End Date Nathalie Jain MD [address] [employer] [facility] EXECUTIVE [facility] [place] [address] PCP - General Internal Medicine 01/10/21 09/22/22 documented as of this encounter
--- OUTSIDE RECORDS SUMMARY | 2024-04-01 07:37 | XMS_ITS | Encounter Summary ---
Author Organization [facility] Address [address] [place] [address] Care Team Providers Care Seo Assistant Name Role Phone Nathalie Jain MD Primary Care Provider [phone]- [phone] Encounter Details Date Type Department Care Team (Latest Contact Info) Description 05/15/2022 Anticoagulation Visit [facility] Cardiology [address] [place] [address] Huma Trevizo RN H/O mechanical [...] on file Legal Sex Female 8:13 AM CHIEF LEGAL OFFICER Gender Identity Female 06/01/2020 9:42 PM CHIEF LEGAL OFFICER Sexual Orientation Straight 06/01/2020 9: 42 PM CHIEF LEGAL OFFICER 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
--- OUTSIDE RECORDS SUMMARY | 2024-04-01 07:38 | XMS_ITS | Encounter Summary ---
Author Organization [facility] Address [address] [place] [address] Care Team Providers Care Lorry Weigher Name Role Phone Nathalie Jain MD Primary Care Provider +1- [phone] Reason for Visit * Cardiology (Routine) - Closed Specialty Diagnoses / Procedures Referred By Contac t Referred To Contact Diagnoses H/O mechanical aortic valve replacement Bicuspid aortic valve Procedures Transthoracic Echo Complete W Doppler/CF Lalo Santamaria MD Phone: tel: fax: [facility] Referral ID Status Reason Start Date Expiration Date Visits Re quested Visits Authorized [id number] Closed 12/10/2020 01/09/2022 1 1 Encounter Details Date Type Department Care Team (Latest Contact Info) Description 01/10/2021 1:00 PM CDT Ancillary Procedure [facility] Cardiology [address] [place] [address] H/O mechanical aortic valve replacement; Bicuspid aortic valve Social History Tobacco Use Types Packs/Day Years [...] on file Legal Sex Female 8:13 AM EMBEDDED SOFTWARE DEVELOPMENT ENGINEER Gender Identity Female 06/01/2020 9:42 PM EMBEDDED SOFTWARE DEVELOPMENT ENGINEER Sexual Orientation Straight 06/01/2020 9: 42 PM EMBEDDED SOFTWARE DEVELOPMENT ENGINEER 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 Not on file Not on file documented as of this encounter Plan of Treatment Not on file documented as of this encounter Procedures Procedure Name Priority Date/Time Associated Diagnosis Comments TRANSTHORACIC ECHO (TTE) COMPLETE W DOPPLER/CF WO CONTRAST Routine 01/10/2021 1:46 PM CDT H/O mechanical aortic valve replacement Bicuspid aortic valve documented in this encounter Results * TRANSTHORACIC ECHO (TTE) COMPLETE W DOPPLER/CF WO CONTRAST (01/10/2021 1:46 PM CDT) Anatomical Region Laterality Modality Ultrasound 01/10/2021 12:5 0 PM CDT Narrative 01/10/2021 4:20 PM CDT [facility] Cardiology [address] [id number] [address], [place] [address] P:[phone] P:[phone] Echocardiographic Report Patient Name: YESSY NIXON : 1955 Study Date: 01/10/2021 12:50:31 PM Gender: F Tech: Location: [place] Ref.Provider: LALO SANTAMARIA Height(Cm): 155 BSA: 1.64 Weight(Kg): 64.86 Heart Rate: 87 BP: 112/96 Quality: Good Order Provider: LALO SANTAMARIA Procedures: Echocardiographic Report: Transthoracic echocardiogram with complete 2D, M-Mode, and color Doppler examination. Indications: Aortic Valve Replacement. Measurements: 2D/M Mode ?Doppler ? Measurement ?Value ?Normal Range ? Measurement ?Value ?Normal Range ? EF Mod ? 67 ?LYNSEY ?1.10 ? [ 2.00 - 4.00 ] cm2 ? EF MM ?69 ? [ 55 - 70 ] % ?AV Mean PG ? 15 ? mmHg ? LVIDd MM ? 3.67 ? [ 3.90 - 5.30 ] cm ? AV Peak Alvaro ?2.60 ? m/s ? LVIDs MM ? 2.27 ? [ 2.30 - 3.90 ] cm ? AV Peak PG ? 27 ? mmHg ? LVPWd MM ? 0.93 ? [ 0.60 - 1.00 ] cm ? AV VTI ? 0.41 ? cm ? IVSd MM ?1.07 ? [ 0.60 - 0.90 ] cm ? LVOT Diam ?2.02 ? [ 1.70 - 2.10 ] cm ? LA Dimension MM ?3.33 ? [ 2.70 - 3.80 ] cm ? LVOT Peak Alvaro ?0.89 ? [ 0.70 - 1.10 ] m/s ? AoR Diam MM ?2.87 ? [ 2.60 - 3.70 ] cm ? LVOT VTI ? 0.17 ? cm ? LA Volume Index ?19.00 ?[ 16.00 - 28.00 ] cc/m2 ?MV E Peak Alvaro ?0.71 ? [ 0.60 - 1.30 ] m/s ? MV A Peak Alvaro ?0.91 ? [ 0.40 - 0.80 ] m/s ? MV Decel Time ?169 ?[ 150 - 200 ] msec ? PV Peak Alvaro ?0.99 ? [ 0.40 - 0.80 ] m/s ? TR Peak Alvaro ?2.54 ? [ 0.40 - 0.80 ] m/s ? TR Peak PG ? 26 ? mmHg ? RVSP ? 34.00 ?mmHg ? E' ? 0.10 ? E/E' ? 7 ? Findings: Interpretation Site: Exam was interpreted at [facility]. Left Ventricle: Normal left ventricular size. Mild concentric left ventricular hypertrophy. Normal global left ventricular systolic function. Impaired diastolic relaxation Grade I. Ejection fraction is measured at 67 %. Right Ventricle: Normal right ventricular size. Left Atrium: The left atrium is normal in size. Right Atrium: The right atrium is normal in size. Atrial Septum: Normal atrial septum. Mitral Valve: Normal appearance of the mitral valve. Trivial regurgitation of the mitral valve. Aortic Valve: Peak gradient of 27.0 mmHg. Mean gradient of 15.0 mmHg. Valve area of 1.1 cm2. Gradients normal for valve type and size. Normal appearing aortic valve bioprosthesis. Tricuspid Valve: Normal appearance of the tricuspid valve. Estimated peak RVSP is 34 mmHg. Pulmonic Valve: Pulmonic valve not well visualized. [...] Grade I. Ejection fraction is measured at 67 %. The left atrium is normal in size. Peak gradient of 27.0 mmHg. Mean gradient of 15.0 mmHg. Valve area of 1.1 cm2. Gradients normal for valve type and size. Normal appearing aortic valve bioprosthesis. Compared with 2019, Aortic prosthesis is unchanged. Electronically Signed By: Dat Chauhan MD, [facility] 2021-01-10 16:20:25 CDT Procedure Note Dat Chauhan MD - 01/10/2021 [facility] Cardiology [address], [place] [address] [address], [place] [address] P:[phone] P:[phone] Echocardiographic Report Patient Name: YESSY NIXONPatient ID: [id number] : [id number] Date: 01/10/2021 12:50:31 PM Gender: FAccession #: [id number] Tech: GMLocation: [place] Ref.Provider: UPPSTROM, ERICAHeight(Cm): 155 BSA: 1.64Weight(Kg): 64.86 Heart Rate: 87BP: 112/96 Quality: GoodOrder Provider: LALO SANTAMARIA Procedures: Echocardiographic Report: Transthoracic echocardiogram with complete 2D, M-Mode, and color Dopplerexamination. Indications: Aortic Valve Replacement. Measurements: 2D/M Mode Doppler Measurement Value Normal Range MeasurementValue Normal Range EF Mod 67 AVA1.10 [ 2.00 - 4.00 ] cm2 EF MM 69 [ 55 - 70 ] % AV Mean PG 15mmHg LVIDd MM 3.67 [ 3.90 - 5.30 ] cm AV Peak Vel2.60 m/s LVIDs MM 2.27 [ 2.30 - 3.90 ] cm AV Peak PG 27mmHg LVPWd MM 0.93 [ 0.60 - 1.00 ] cm AV VTI0.41 cm IVSd MM 1.07 [ 0.60 - 0.90 ] cm LVOT Diam2.02 [ 1.70 - 2.10 ] cm LA Dimension MM 3.33 [ 2.70 - 3.80 ] cm LVOT Peak Vel0.89 [ 0.70 - 1.10 ] m/s AoR Diam MM 2.87 [ 2.60 - 3.70 ] cm LVOT VTI0.17 cm LA Volume Index 19.00 [ 16.00 - 28.00 ] cc/m2 MV E Peak Vel0.71 [ 0.60 - 1.30 ] m/s MV A Peak Vel0.91 [ 0.40 - 0.80 ] m/s MV Decel [id number] [ 150 - 200 ] msec PV Peak Vel0.99 [ 0.40 - 0.80 ] m/s TR Peak Vel2.54 [ 0.40 - 0.80 ] m/s TR Peak PG 26mmHg RVSP34.00 mmHg E'0.10 E/E' 7 Findings: Interpretation Site: Exam was interpreted at [facility]. Left Ventricle: Normal left ventricular size. Mild concentric left ventricularhypertrophy. Normal global left ventricular systolic function. Impaired diastolic relaxation Grade I.Ejection fraction is measured at 67 %. Right Ventricle: Normal right ventricular size. Left Atrium: The left atrium is normal in size. Right Atrium: The right atrium is normal in size. Atrial Septum: Normal atrial septum. Mitral Valve: Normal appearance of the mitral valve. Trivial regurgitation of the mitralvalve. Aortic Valve: Peak gradient of 27.0 mmHg. Mean gradient of 15.0 mmHg. Valve area of 1.1cm2. Gradients normal for valve type and size. Normal appearing aortic valvebioprosthesis. Tricuspid Valve: Normal appearance of the tricuspid valve. Estimated peak RVSP is 34mmHg. Pulmonic Valve: Pulmonic valve not well visualized. Pericardium: Normal pericardium with no significant pericardial effusion. Aorta: Normal aortic root. IVC: Normal size and normal respiratory collapse consistent with normal rightatrial pressure (<5 mmHg). Pulmonary Artery: Normal pulmonary artery size. Conclusions: Normal left ventricular size. Mild concentric left ventricularhypertrophy. Normal global left ventricular systolic function. Impaired diastolic relaxation Grade I.Ejection fraction is measured at 67 %. The left atrium is normal in size. Peak gradient of 27.0 mmHg. Mean gradient of 15.0 mmHg. Valve area of 1.1cm2. Gradients normal for valve type and size. Normal appearing aortic valvebioprosthesis. Compared with 2019, Aortic prosthesis is unchanged. Electronically Signed By: Dat Chauhan MD, [facility] 2021-01-10 16:20:25 CDT Lalo Santamaria MD CV ECHO PROCEDURES Final Re sult documented in this encounter Visit Diagnoses Diagnosis H/O mechanical aortic valve replacement Bicuspid aortic valve Congenital insufficiency of aortic valve documented in this encounter Care Teams Lorry Weigher Relationship Specialty Start Date End Date Nathalie Jain MD [address] [place] [address] PCP - General Internal Medicine 01/10/21 09/22/22 documented as of this encounter
--- OUTSIDE RECORDS SUMMARY | 2024-04-01 07:38 | XMS_ITS | Encounter Summary ---
Author Organization [facility] Address [address] [place] [address] Care Team Providers Care Clinical Cytopathologist Name Role Phone Nathalie Jain MD Primary Care Provider +1- [phone] Encounter Details Date Type Department Care Team (Latest Contact Info) Description 01/29/2021 Anticoagulation Visit [facility] Cardiology [address] [place] [address] Huma Trevizo RN H/O mechanical [...] on file Legal Sex Female 8:13 AM DRILLING FOREMAN Gender Identity Female 06/01/2020 9:42 PM DRILLING FOREMAN Sexual Orientation Straight 06/01/2020 9: 42 PM DRILLING FOREMAN 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 EXECUTIVE [place] [address] PCP - General Internal Medicine 01/10/21 09/22/22 documented as of this encounter
--- OUTSIDE RECORDS SUMMARY | 2024-04-01 07:38 | XMS_ITS | Encounter Summary ---
Author Organization [facility] Address [address] [place] [address] Care Team Providers Care Fuse Coiler Name Role Phone Nathalie Jain MD Primary Care Provider +1- [phone] Encounter Details Date Type Department Care Team (Latest Contact Info) Description 05/21/[address] 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
--- OUTSIDE RECORDS SUMMARY | 2024-04-01 07:38 | XMS_ITS | Encounter Summary ---
Author Organization [facility] Address [address] [place] [address] Care Team Providers Care Manager Of Applications Development Name Role Phone Nathalie Jain MD Primary Care Provider +1- [phone] Encounter Details Date Type Department Care Team (Latest Contact Info) Description 06/19/2021 Anticoagulation Visit [facility] Cardiology [address] [facility] [address] [place] [address] Aviva Figueroa RN H/O mechanical aortic valve [...] on file Legal Sex Female 8:13 AM ROW BOSS Gender Identity Female 06/01/2020 9:42 PM ROW BOSS Sexual Orientation Straight 06/01/2020 9: 42 PM ROW BOSS 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
--- OUTSIDE RECORDS SUMMARY | 2024-04-01 07:38 | XMS_ITS | Encounter Summary ---
Author Organization [facility] Address [address] [place] [address] Care Team Providers Care Brick Veneer Maker Name Role Phone Nathalie Jain MD Primary Care Provider +1- [phone] Encounter Details Date Type Department Care Team (Late st Contact Info) Description 07/15/2021 Orders Only [facility] Cardiology [address] [place] [address] Bindu Gaines MD [address] [place] [address] H/O mechanical aortic valve replacement (Primary Dx) Social History Tobacco Use Types [...] on file Legal Sex Female 8:13 AM HOME DEMONSTRATION AGENT Gender Identity Female 06/01/2020 9:42 PM HOME DEMONSTRATION AGENT Sexual Orientation Straight 06/01/2020 9: 42 PM HOME DEMONSTRATION AGENT 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 4 tablet/capsule 3 07/15/2021 08/06/2023 documented in this encounter Plan of Treatment Not on file documented as of this encounter Visit Diagnoses Diagnosis H/O mechanical aortic valve replacement- Primary documented in this encounter Care Teams Brick Veneer Maker Relationship Specialty Start Date End Date Nathalie Jain MD [address] [employer] [employer] [address] PCP - General Internal Medicine 01/10/21 09/22/22 documented as of this encounter
--- OUTSIDE RECORDS SUMMARY | 2024-04-01 07:38 | XMS_ITS | Encounter Summary ---
Author Organization [facility] Address [address] [place] [address] Care Team Providers Care Medication Aide Name Role Phone Nathalie Jain MD Primary Care Provider +1- [phone] Encounter Details Date Type Department Care Team (Latest Contact Info) Description 11/01/2021 Anticoagulation Visit [facility] Cardiology [address] [place] [address] Penny Wilks, BHAVANA H/O mechanical [...] on file Legal Sex Female 8:13 AM WELL SERVICE FLOOR WORKER Gender Identity Female 06/01/2020 9:42 PM WELL SERVICE FLOOR WORKER Sexual Orientation Straight 06/01/2020 9: 42 PM WELL SERVICE FLOOR WORKER 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 Not on file Not on file documented as of this encounter Plan of Treatment Not on file documented as of this encounter Procedures Procedure Name Priority Date/Time Associated Diagnosis Comments PROTIME-INR Routine 11/01/2021 documented in this encounter Results * (ABNORMAL) Protime-INR (11/01/2021) INR 3.40(A) 0.9 - 1.1 [facility] Blood specimen (specimen) us Historical Provider LAB BLOOD ORDERABLES Antonina hernandez Result [facility] documented in this encounter Visit Diagnoses Diagnosis H/O mechanical aortic valve replacement- Primary Chronic anticoagulation Encounter for long-term (current) 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s documented in this encounter Care Teams Medication Aide Relationship Specialty Start Date End Date Nathalie Jain MD [address] [facility] [place] [address] PCP - General Internal Medicine 01/10/21 09/22/22 documented as of this encounter
--- OUTSIDE RECORDS SUMMARY | 2024-04-01 07:38 | XMS_ITS | Encounter Summary ---
Author Organization [facility] Address [address] [place] [address] Care Team Providers Care Software Engineering Manager Name Role Phone Nathalie Jain MD Primary Care Provider +1- [phone] Encounter Details Date Type Department Care Team (Latest Contact Info) Description 05/06/2021 Anticoagulation Visit [facility] Cardiology [address] [place] [address] Juany Madrid RN H/O mechanical [...] on file Legal Sex Female 8:13 AM GRAIN OILSEED OR PASTURE GROWER Gender Identity Female 06/01/2020 9:42 PM GRAIN OILSEED OR PASTURE GROWER Sexual Orientation Straight 06/01/2020 9: 42 PM GRAIN OILSEED OR PASTURE GROWER Occupation Industry Job Start Date Job End Date [employer] Not on file Not on file Not on file documented as of this encounter Plan of Treatment Not on file documented as of this encounter Visit Diagnoses Diagnosis H/O mechanical aortic valve replacement- Primary Chronic anticoagulation Encounter for long-term (current) 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s documented in this encounter Care Teams Software Engineering Manager Relationship Specialty Start Date End Date Nathalie Jain MD [address] [facility] EXECUTIVE [facility] [address] PCP - General Internal Medicine 01/10/21 09/22/22 documented as of this encounter
--- OUTSIDE RECORDS SUMMARY | 2024-04-01 07:38 | XMS_ITS | Encounter Summary ---
Author Organization [facility] Address [address] [place] [address] Care Team Providers Care Burn Crew Member Name Role Phone Nathalie Jain MD Primary Care Provider +1- [phone] Reason for Visit * Diagnostic Imaging (Routine) - Closed Specialty Diagnoses / Procedures Referred By Contac t Referred To Contact Diagnoses Arthralgia, unspecified joint Myalgia, unspecified site Procedures XR Hip Left 2 or 3 Views XR Hip Left 1 View Payal Méndez MD Phone: tel: fax: [address] [address] Referral ID Status Reason Start Date Expiration Date Visits Re quested Visits Authorized [id number] Closed 03/29/2021 04/28/2022 1 1 Encounter Details Date Type Department Care Team (Latest Contact Info) Description 03/29/2021 1:52 PM MRI MANAGER - 03/29/2021 11:59 PM MRI MANAGER Hospital Encounter [facility] - Imaging [address] [place] [id number] Arthralgia, unspecified joint; Myalgia, unspecified site Discharge Disposition: Discharge to home or self [...] on file Legal Sex Female 8:13 AM MRI MANAGER Gender Identity Female 06/01/2020 9:42 PM MRI MANAGER Sexual Orientation Straight 06/01/2020 9: 42 PM MRI MANAGER 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 Not on file Not on file documented as of this encounter Medications at Time of Discharge albuterol HFA (ProAir HFA) 90 mcg/actuation inhaler Inhale 2 puffs every 4 (four) hours as needed for wheezing 1 Inhaler 1 02/23/2020 albuterol (PROAIR DIGIHALER) 90 mcg/actuation inhaler 01/08/2021 2 aspirin 81 mg tablet Take one by mouth one time per day 0 0 12/04/2008 4 atorvastatin (LIPITOR) 20 mg tablet TAKE 1 TABLET BY MOUTH EVERY DAY 90 tablet 03/25/2021 2 celecoxib (CeleBREX) 200 mg capsule Take 1 capsule (200 mg total) by mouth 2 (two) times a day 60 capsule 12/10/2020 4 COVID-19 mRNA,[id number] ([employer]) 30 mcg/0.3 mL suspension for reconstitution 01/24/[address] (CYMBALTA) 60 mg capsuleIndications: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) Take 1 capsule (60 mg total) by mouth daily 90 capsule 1 07/01/2020 2 warfarin (COUMADIN) 2 mg tabletIndications:H/ O mechanical aortic valve replacement TAKE 2 TABLETS BY MOUTH EVERY DAY 60 tablet 3 02/11/2021 2 warfarin (COUMADIN) 2.5 mg tablet 07/23/2020 4 documented as of this encounter Discharge Disposition Disposition Code Departure Means Destination Discharge to home or self care documented in this encounter Plan of Treatment Not on file documented as of this encounter Procedures Procedure Name Priority Date/Time Associated Diagnosis Comments XR HIP LEFT 2 OR 3 VIEWS Schedule Routine, Read Routine (OP Routine) 03/29/2021 2:06 PM MRI MANAGER Arthralgia, unspecified joint Myalgia, unspecified site documented in this encounter Results * XR Hip Left 2 or 3 Views (03/29/2021 2:06 PM MRI MANAGER) Anatomical Region Laterality Modality Lower Extremities, Hip, Pelvis Left C omputed Radiography 03/29/2021 2:14 PM MRI MANAGER Impressions 03/29/2021 2:14 PM MRI MANAGER 1. ??No acute bony abnormality identified in the left hip. 2. ??Minimal degenerative arthritic narrowing of the left hip joint. Electronically signed by: Ray Angeles M.D. Narrative 03/29/2021 2:14 PM MRI MANAGER Exam: XR HIP LEFT 2 OR 3 VIEWS Date/Time of Exam: 03/29/2021 2:00 PM Reason For Exam: Left hip pain. Diagnosis: Arthralgia, unspecified joint [M25.50 (ICD-10-CM)]; Myalgia, unspecified site [M79.10 (ICD-10-CM)] Findings: There are no signs of fracture or dislocation of the left hip. ??There is minimal narrowing of the left hip joint. ??No periarticular erosions or ossified formations. ??No lytic or blastic bony destructive changes. ??The left SI joint appears preserved. Procedure Note Ray Angeles MD - 03/29/2021 Exam: XR HIP LEFT 2 OR 3 VIEWS Date/Time of Exam: 03/29/2021 2:00 PM Reason For Exam: Left hip pain. Diagnosis: Arthralgia, unspecified joint [M25.50 (ICD-10-CM)]; Myalgia, unspecified site [M79.10 (ICD-10-CM)] Findings: There are no signs of fracture or dislocation of the left hip. There is minimal narrowing of the left hip joint. No periarticular erosions or ossified formations. No lytic or blastic bony destructive changes. The left SI joint appears preserved. IMPRESSION: 1. No acute bony abnormality identified in the left hip. 2. Minimal degenerative arthritic narrowing of the left hip joint. Electronically signed by: Ray Angeles M.D. Payal Méndez MD IMG XR PROCEDURES Final Result documented in this encounter Visit Diagnoses Diagnosis Arthralgia, unspecified joint Myalgia, unspecified site documented in this encounter Care Teams Burn Crew Member Relationship Specialty Start Date End Date Nathalie Jain MD [address] [place] [address] PCP - General Internal Medicine 01/10/21 09/22/22 documented as of this encounter
--- OUTSIDE RECORDS SUMMARY | 2024-04-01 07:38 | XMS_ITS | Encounter Summary ---
Author Organization [facility] Address [address] [place] [address] Care Team Providers Care Project Safety Manager Name Role Phone Gabi Fagan MD Primary Care Pro vider Nathalie Jain MD Primary Care Provider +1- [phone] Encounter Details Date Type Department Care Team (Late st Contact Info) Description 12/14/2020 Telephone [facility] Cardiology [address] 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 * Telephone Encounter - Marley Tran - 12/14/2020 8:24 AM CDT Pt returning RN Huma adamson. Contact: documented in this encounter Plan of Treatment Not on file documented as of this encounter Visit Diagnoses Not on filedocumented in this encounter Care Teams Project Safety Manager Relationship Specialty Start Date End Date Gabi Fagan MD PCP - General Family Medicine 07/30/20 01/09/21 Nathalie Jain MD [address] [place] [id number] PCP - General Internal Medicine 01/10/21 09/22/22 documented as of this encounter
--- OUTSIDE RECORDS SUMMARY | 2024-04-01 07:38 | XMS_ITS | Encounter Summary ---
Author Organization [facility] Address [address] [facility] [address] [place] [address] Care Team Providers Care Manager Track Name Role Phone Nathalie Jain MD Primary Care Provider +1- [phone] Encounter Details Date Type Department Care Team (Latest Contact Info) Description 04/09/2021 Anticoagulation Visit [facility] Cardiology [address] [place] [address] Huma Trevizo RN H/O mechanical [...] on file Legal Sex Female 8:13 AM TIME ANALYSIS CLERK Gender Identity Female 06/01/2020 9:42 PM TIME ANALYSIS CLERK Sexual Orientation Straight 06/01/2020 9: 42 PM TIME ANALYSIS CLERK 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
--- OUTSIDE RECORDS SUMMARY | 2024-04-01 07:38 | XMS_ITS | Encounter Summary ---
Author Organization [facility] Address [address] [place] [address] Care Team Providers Care Waxer Floor Name Role Phone Nathalie Jain MD Primary Care Provider +1- [phone] Encounter Details Date Type Department Care Team (Latest Contact Info) Description 05/23/2021 Anticoagulation Visit [facility] Medical [facility] Cardiology [address] [facility] [address] [place] [phone] Aviva Figueroa RN H/O mechanical aortic [...] on file Legal Sex Female 8:13 AM BUSINESS EXCELLENCE LEADER Gender Identity Female 06/01/2020 9:42 PM BUSINESS EXCELLENCE LEADER Sexual Orientation Straight 06/01/2020 9: 42 PM BUSINESS EXCELLENCE LEADER 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
--- OUTSIDE RECORDS SUMMARY | 2024-04-01 07:38 | XMS_ITS | Encounter Summary ---
Author Organization [facility] Address [address] [place] [address] Care Team Providers Care Drop Man Name Role Phone Natahlie Jain MD Primary Care Provider +1- [phone] Encounter Details Date Type Department Care Team (Latest Contact Info) Description 08/15/2021 9:54 AM CDT - 08/15/2021 11:59 PM CDT Hospital Encounter [facility] [address] [place] [id number] Discharge Disposition: Discharge to home or self [...] on file Legal Sex Female 8:13 AM ETIOLOGY TEACHER Gender Identity Female 06/01/2020 9:42 PM ETIOLOGY TEACHER Sexual Orientation Straight 06/01/2020 9: 42 PM ETIOLOGY TEACHER 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) Take 1 capsule (60 mg total) by mouth daily 90 capsule 1 07/01/2020 2 warfarin (COUMADIN) 2 mg tabletIndications:H/ O mechanical aortic valve replacement TAKE 2 TABLETS BY MOUTH EVERY DAY 180 tablet 1 05/20/2021 2 warfarin (COUMADIN) 2.5 mg tablet 07/23/2020 4 documented as of this encounter Discharge Disposition Disposition Code Departure Means Destination Discharge to home or self care documented in this encounter Plan of Treatment Not on file documented as of this encounter Procedures Procedure Name Priority Date/Time Associated Diagnosis Comments XR TRANSFER OF OUTSIDE FILMS Routine 08/15/2021 9:54 AM CDT documented in this encounter Results * XR Outside Reference (08/15/2021 9:54 AM CDT) Impressions [facility] - 08/15/2021 9:54 AM CDT These images are for Reference purposes only and have not been reviewed by [facility]iology. ??There will be no report generated by a [facility] Radiologist. Narrative [facility] - 08/15/2021 9:54 AM CDT EXAMINATION: ??Images For Reference Purposes Only us Adrien Benitez MD PhD IMG XR PROCEDURES Final Result [facility] documented in this encounter Visit Diagnoses Not on filedocumented in this encounter Care Teams Drop Man Relationship Specialty Start Date End Date Nathalie Jain MD [address] [facility] [place] [address] PCP - General Internal Medicine 01/10/21 09/22/22 documented as of this encounter
--- OUTSIDE RECORDS SUMMARY | 2024-04-01 07:38 | XMS_ITS | Encounter Summary ---
Author Organization [facility] Address [address] [place] [address] Care Team Providers Care Manifest/Order Organizer Print Orders Name Role Phone Nathalie Jain MD Primary Care Provider +1- [phone] Encounter Details Date Type Department Care Team (Late st Contact Info) Description 08/13/2021 Telephone [facility] Cardiology [address] [facility] [address] [place] [address] Bindu Gaines MD [address] [place] [address] Social History Tobacco Use Types [...] on file Legal Sex Female 8:13 AM CLINICAL ASSISTANT Gender Identity Female 06/01/2020 9:42 PM CLINICAL ASSISTANT Sexual Orientation Straight 06/01/2020 9: 42 PM CLINICAL ASSISTANT 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 I???ve actually had 2 Vit. D tests done. The first one was down ; the 2nd was wnl. I sent Dr Jain a message to see if she would have the lab results faxed to the [place] office. I don???t rememberexactly which I???ve had done. Waiting to hear back. Thanks. Will forward pt message back to [facility] and as soon as lab results are received I will scan into [facility] and route to [facility]. * Telephone Encounter - Huma Trevizo RN - 08/15/2021 10:24 AM CDT Sent message to pt via my chart. Requested she let me know where she would like her labs sent to. * Telephone Encounter - Bindu Gaines MD - 08/15/2021 9:05 AM CDT Yessy Wright -- Sorry to hear you are feeling so bad. Sure, it is very reasonable to take an atorvastatin vacation for a month. Please call and let me know how that works out. If you are feeling a lot better, thenwe can discuss the next step (Lower dose? Change statin or go to a nonstatin? Etc). Low vitamin D levels can make people more sensitive to statin muscle pains and I can't find any recent Vitamin D levels, but not all of your labs are in this computer system. Let's check a Vitamin D level (and also a CBC , CPK, sed rate and CMP) if Dr. Jain hasn't checked these recently. Dr. Gaines * Telephone Encounter - Huma Trevizo, RN - 08/13/2021 1:36 PM CDT ----- Message from Yessy Donaldson sent at 08/13/2021 1:25 PM CDT ----- Regarding: Atorvastatin I was reading some info on Atorvastatin and how it can sometimes be the cause of over all body pain. Meant to send you a message yesterday, but I haven't taken it since Thursday, August 10. Though I'm still having some pain, it's more manageable than it was even a couple weeks ago. Dr. Nathalie Jain has referred me to a neuromuscular Dr. . At [facility], due to the pain and some balance issues I've been having. Waiting to hear back from that office. I'd like to stay off the Atorvastatin at least for a month and see if the pain continues to decrease. Would like your thoughts on it. Will forward message on to [facility] for review. Please advise, thank you! documented in this encounter Plan of Treatment Not on file documented as of this encounter Visit Diagnoses Not on filedocumented in this encounter Care Teams Manifest/Order Organizer Print Orders Relationship Specialty Start Date End Date Nathalie Jain MD [address] [place] [address] PCP - General Internal Medicine 01/10/21 09/22/22 documented as of this encounter
--- OUTSIDE RECORDS SUMMARY | 2024-04-01 07:38 | XMS_ITS | Encounter Summary ---
Author Organization [facility] Address [address] [facility] [address] [place] [address] Care Team Providers Care Gastroenterology Professor Name Role Phone Nathalie Jain MD Primary Care Provider +1- [phone] Encounter Details Date Type Department Care Team (Late st Contact Info) Description 05/23/2021 Telephone [facility] Cardiology [address] [facility] [address] [place] [address] Bindu Gaines MD [address] [place] [address] Social History Tobacco Use Types [...] on file Legal Sex Female 8:13 AM CYCLE LIAISON Gender Identity Female 06/01/2020 9:42 PM CYCLE LIAISON Sexual Orientation Straight 06/01/2020 9: 42 PM CYCLE LIAISON 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 If someone left a message that may be helpful to determine what the call was about. E LIAISON * Telephone Encounter - Hira Richards - 05/23/2021 2:03 PM CST Pt returning nurse call.Thank you Contact:[phone] E LIAISON documented in this encounter Plan of Treatment Not on file documented as of this encounter Visit Diagnoses Not on filedocumented in this encounter Care Teams Gastroenterology Professor Relationship Specialty Start Date End Date Nathalie Jain MD [address] [facility] EXECUTIVE [place] [id number] PCP - General Internal Medicine 01/10/21 09/22/22 documented as of this encounter
--- OUTSIDE RECORDS SUMMARY | 2024-04-01 07:38 | XMS_ITS | Encounter Summary ---
Author Organization [facility] Address [address] [place] [address] Care Team Providers Care Director Industrial Relations Name Role Phone Nathalie Jain MD Primary Care Provider +1- [phone] Encounter Details Date Type Department Care Team (Latest Contact Info) Description 08/13/2021 Anticoagulation Visit [facility] Cardiology [address] [facility] [address] [place] [address] Aviva Figueroa RN H/O mechanical aortic [...] on file Legal Sex Female 8:13 AM PRODUCT SAFETY TECHNICAL ASSISTANT Gender Identity Female 06/01/2020 9:42 PM PRODUCT SAFETY TECHNICAL ASSISTANT Sexual Orientation Straight 06/01/2020 9: 42 PM PRODUCT SAFETY TECHNICAL ASSISTANT 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
--- OUTSIDE RECORDS SUMMARY | 2024-04-01 07:38 | XMS_ITS | Encounter Summary ---
Author Organization [facility] Address [address] [place] [address] Care Team Providers Care Right Of Way Clearer Name Role Phone Gabi Fagan MD Primary Care Pro vider Reason for Visit * Reason Comments Follow-up Had EMG on the 16 Encounter Details Date Type Department Care Team ([facility] st Contact Info) Description 01/01/2021 11:30 AM CDT Office Visit [facility] Primary Care [address] [facility] [address] [place] [address] Gabi Fagan MD [address] [place] [address] [address] [place] [address] Bilateral sciatica (Primary Dx) Social History Tobacco [...] on file Legal Sex Female 8:13 AM GEOGRAPHY FACULTY MEMBER Gender Identity Female 06/01/2020 9:42 PM GEOGRAPHY FACULTY MEMBER Sexual Orientation Straight 06/01/2020 9: 42 PM GEOGRAPHY FACULTY MEMBER 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 on file Not on file Not on file documented as of this encounter Last Filed Vital Signs Vital Sign Reading Time Taken Comments Blood Pressure 136/90 01/01/2021 11:24 AM CDT Pulse 82 01/01/2021 11:24 AM CDT Temperature 36.2 ??C (97.1 ??F) 01/01/2021 11:24 AM C DT Respiratory Rate 16 01/01/2021 11:24 AM CDT Oxygen Saturation 98% 01/01/2021 11:24 AM CDT Inhaled Oxygen Concentration - - Weight 64.9 kg (143 lb) 01/01/2021 11:24 AM CDT Height 157 cm (5' 1.81 ) 01/01/2021 11:24 AM CDT Body Mass Index 26.32 01/01/2021 11:24 AM CDT documented in this encounter Progress Notes * Gabi Fagan MD - 01/01/2021 11:30 AM CDT Images from the original note were not included. Assessment/Plan: Assessment/Plan Diagnoses and all orders for this visit: Bilateral sciatica (Primary) Assessment & Plan: Uncontrolled, symptoms worsening Reviewed EMG: within normal limits Reviewed MRI from 12/2019, mild-moderate central canal stenosis. Given symptoms worsening advise repeating MRI or referral to spine surgery, but she defers Continue cymbalta F/u if symptoms not improving or worsen. Strict return/ED precautions discussed. Subjective: Yessy Donaldson is a 65 y.o. female here for follow up sciatica HPI Chief Complaint Patient presents with ??? Follow-up Had EMG on the scitica: on cymbalta.??worsening. Pain worse with standing for 10 minutes, improves with sitting down. Recently had EMG. Does not want to see a surgeon at this time, planning to follow up with new PCP next week. Review of Systems Constitutional: Negative for fever. HENT: Negative for sore throat. Respiratory: Negative for cough and shortness of breath. Gastrointestinal: Negative for diarrhea and vomiting. Musculoskeletal: Positive for back pain. Negative for myalgias. Neurological: Positive for numbness. Objective: Vital signs were reviewed. Vitals: 01/01/21 1124 BP: 136/90 BP Location: Left arm Patient Position: Sitting Pulse: 82 Resp: 16 Temp: 36.2 ??C (97.1 ??F) TempSrc: Temporal SpO2: 98% Weight: 64.9 kg (143 lb) Height: 157 cm (5' 1.81 ) Physical Exam Gen: NAD, comfortable, appears as stated age Eyes: no conjunctival injection, EOMI ENMT: external ears symmetric CV: Regular rate Pulm: no increased work of breathing Skin: no rashes or nodules, warm and dry MSK/Neuro: symmetric limb movement Psych: alert and oriented to person/place/time, appropriate judgment and insight Gabi Fagan MD documented in this encounter Miscellaneous Notes * Assessment & Plan Note - Gabi Fagan MD - 01/01/2021 11:35 AM CDTAssociated Problem(s): Bilateral sciatica Uncontrolled, symptoms worsening Reviewed EMG: within normal limits Reviewed MRI from 12/2019, mild-moderate central canal stenosis. Given symptoms worsening advise repeating MRI or referral to spine surgery, but she defers Continue cymbalta * Assessment & Plan Note - Gabi Fagan MD - 01/01/2021 11:28 AM CDTAssociated Problem(s): Annual physical exam Never smoker PAP: UTD 2019 BP <140/90, continue to monitor Body mass index is 26.32 kg/m??. Discussed diet and exercise Feels safe at home Discussed skin cancer prevention and screening Advise flu Reviewed labs documented in this encounter Plan of Treatment Not on file documented as of this encounter Visit Diagnoses Diagnosis Bilateral sciatica- Primary Sciatica documented in this encounter Care Teams Right Of Way Clearer Relationship Specialty Start Date End Date Gabi Fagan MD PCP - General Family Medicine 07/30/20 01/09/21 documented as of this encounter
--- OUTSIDE RECORDS SUMMARY | 2024-04-01 07:38 | XMS_ITS | Encounter Summary ---
Author Organization [facility] Address [address] [facility] [address] [place] [address] Care Team Providers Care Lumber Checker Name Role Phone Nathalie Jain MD Primary Care Provider +1- [phone] Encounter Details Date Type Department Care Team (Latest Contact Info) Description 10/09/[address] 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 file Not on file Not on file documented as of this encounter Plan of Treatment Not on file documented as of this encounter Procedures Procedure Name Priority Date/Time Associated Diagnosis Comments PROTIME-INR Routine 10/09/2021 documented in this encounter Results * (ABNORMAL) Protime-INR (10/09/2021) INR 3.20(A) 0.9 - 1.1 [facility] Blood specimen (specimen) us Historical Provider LAB BLOOD ORDERABLES Antonina hernandez Result [facility] documented in this encounter Visit Diagnoses Diagnosis H/O mechanical aortic valve replacement- Primary Chronic anticoagulation Encounter for long-term (current) 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s documented in this encounter Care Teams Lumber Checker Relationship Specialty Start Date End Date Nathalie Jain MD [address] [facility] [place] [address] PCP - General Internal Medicine 01/10/21 09/22/22 documented as of this encounter
--- OUTSIDE RECORDS SUMMARY | 2024-04-01 07:38 | XMS_ITS | Encounter Summary ---
Author Organization [facility] Address [address] [facility] [facility] [address] [place] [address] Care Team Providers Care Digging Machine Operator Name Role Phone Nathalie Jain MD Primary Care Provider +1- [phone] Encounter Details Date Type Department Care Team (Late st Contact Info) Description 05/07/2021 Telephone [facility] Cardiology [address] [facility] [address] [place] [address] Bindu Gaines MD [address] [place] [address] Social History Tobacco [...] on file Legal Sex Female 8:13 AM MACHINE SHOP HELPER Gender Identity Female 06/01/2020 9:42 PM MACHINE SHOP HELPER Sexual Orientation Straight 06/01/2020 9: 42 PM MACHINE SHOP HELPER 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 Pt verbalizes understanding will recheck INR in 2 weeks. INE SHOP HELPER * Telephone Encounter - Hira Richards - 05/07/2021 2:43 PM CST Pt called has questions in regard to her INR results.please advise.Thank you Contact:[phone] INE SHOP HELPER documented in this encounter Plan of Treatment Not on file documented as of this encounter Visit Diagnoses Not on filedocumented in this encounter Care Teams Digging Machine Operator Relationship Specialty Start Date End Date Nathalie Jain MD [address] [email or web address] EXECUTIVE [place] [id number] PCP - General Internal Medicine 01/10/21 09/22/22 documented as of this encounter
--- OUTSIDE RECORDS SUMMARY | 2024-04-01 07:38 | XMS_ITS | Encounter Summary ---
Author Organization [facility] Address [address] [place] [address] Care Team Providers Care Assistant Professor Of Theater Name Role Phone Nathalie Jain MD Primary Care Provider +1- [phone] Encounter Details Date Type Department Care Team (Late st Contact Info) Description 11/01/2021 Telephone [facility] Cardiology [address] [facility] [address] [place] [address] Bindu Gaines MD [address] [place] [address] Social History Tobacco Use Types [...] on file Legal Sex Female 8:13 AM IMPORT/EXPORT ADMINISTRATOR Gender Identity Female 06/01/2020 9:42 PM IMPORT/EXPORT ADMINISTRATOR Sexual Orientation Straight 06/01/2020 9: 42 PM IMPORT/EXPORT ADMINISTRATOR 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 I'll leave a msg on her cell to follow your instructions so there is no confusion. * Telephone Encounter - Penny Hernandez RN - 11/01/2021 4:28 PM CDT EU- I had left her dosing the same since her INR goal range listed is 2.5-3.5 and her INR was 3.4. Her last INR was 3.2 so not much of an increase after a few days on prednisone.. I told her to checkagain in 1 week. I can call her on Thursday to reiterate your plan. Sorry for the confusion , thank you! * Telephone Encounter - Bindu Gaines MD - 11/01/2021 4:21 PM CDT INR on it's way up, 3.4 today. LMOC to reduce the warfarin fr 4 mg daily to: 2 mg today and Thursday, get INR done as planned, callif problems. Return to usual 4 mg daily after prednisone unless she hears otherwise. Please call ifyou have a better understanding of her response to warfarin. * Telephone Encounter - Penny Hernandez RN - 11/01/2021 9:43 AM CDT Spoke with pt. She started prednisone on 7.19 and has been having trouble with bloody noses. She thinks she will be done with the prednisone by 7.30. ot wanted to wait until 7.26 for INR. We discussed that steroids can raise the INR and I am concerned about her number being up especially with the nose bleeds. Requested pt go to lab today. She normally goes to [facility] but they do not result the same day. It is Thursday and [place]. Pt agreed to go to for her INR so we can get quicker results and I will call her. Pt aware that we usually get an INR done 3 days after starting steroid for future reference. * Addendum Note - Penny Hernandez RN - 11/01/2021 9:42 AM CDTAddended by: PENNY HERNANDEZ on: 11/01/2021 09:42 AM Modules accepted: Orders * Telephone Encounter - Penny Hernandez RN - 11/01/2021 9:23 AM CDT Lm on requesting call back to discuss * Telephone Encounter - Penny Hernandez RN - 11/01/2021 9:22 AM CDT ----- Message from Yessy Donaldson sent at 11/01/2021 9:20 AM CDT ----- Regarding: On Prednisone and nosebleed I started on Prednisone on the ; am scheduled for an INR on the . Had a nosebleed a couple weeks ago before the prednisone and one this morning. The first one stopped in about 10 minutes after clamping and packing my nostril. This morning I just packed it, because clamping made it worse. I think it's stopped. Had an ENT appointment yesterday, so they know about the first one. documented in this encounter Plan of Treatment Scheduled Orders Name Type Priority Associated Diagnoses Orde r Schedule Protime-INR Lab Routine H/O mechanical aortic valve replacement Chronic anticoagulation 52 Occurrences starting 11/01/2021 until 11/01/2022 documented as of this encounter Visit Diagnoses Diagnosis H/O mechanical aortic valve replacement- Primary Chronic anticoagulation Encounter for long-term (current) 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s documented in this encounter Care Teams Assistant Professor Of Theater Relationship Specialty Start Date End Date Nathalie Jain MD [address] [place] [address] PCP - General Internal Medicine 01/10/21 09/22/22 documented as of this encounter
--- OUTSIDE RECORDS SUMMARY | 2024-04-01 07:38 | XMS_ITS | Encounter Summary ---
Author Organization [facility] Address [address] [place] [address] Care Team Providers Care Deputy Probation Officer Name Role Phone Nathalie Jain MD Primary Care Provider +1- [phone] Encounter Details Date Type Department Care Team (Late st Contact Info) Description 08/27/2021 Telephone [facility] Cardiology [address] [facility] [address] [place] [address] Bindu Gaines MD [address] [place] [address] Social History Tobacco Use Types [...] on file Legal Sex Female 8:13 AM ASPHALT TILE FLOOR LAYER Gender Identity Female 06/01/2020 9:42 PM ASPHALT TILE FLOOR LAYER Sexual Orientation Straight 06/01/2020 9: 42 PM ASPHALT TILE FLOOR LAYER 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 * Telephone Encounter - Bindu Gaines MD - 08/27/2021 10:03 PM CDT Let's check a CBC , CPK, sed rate and CMP * Telephone Encounter - Ban Trevizo RN - 08/27/2021 4:17 PM CDT ----- Message from Yessy Donaldson sent at 08/27/2021 3:29 PM CDT ----- Regarding: Response from Dr. Gaines I sent Dr. Jain a message, but haven't heard back from her. (She has usually been pretty good at responding,) I was looking through my My Chart and the last CMP I have listed is on 08/01/20. That was with Dr. Sara Fagan. (I wasn't a patient of hers long). I don't usually get test results from Dr. Jain. I know one of my Vitamin D tests came back low and the other one came back as normal. (Those were both earlier this year). I don't know about the other tests, so if Dr. Gaines wants them run, I have my labs done at [facility] in [place]. Thanks, Emani Donaldson Will forward to KESHA. Please advise, thank you! documented in this encounter Plan of Treatment Not on file documented as of this encounter Procedures Procedure Name Priority Date/Time Associated Diagnosis Comments CBC WITH AUTO DIFFERENTIAL Routine 08/30/2021 6:23 AM CDT Mixed hyperlipidemia H/O mechanical aortic valve replacement ERYTHROCYTE SEDIMENTATION RATE Routine 08/30/2021 6:23 AM CDT Mixed hyperlipidemia H/O mechanical aortic valve replacement CREATINE KINASE (CK), TOTAL Routine 08/30/2021 6:23 AM CDT Mixed hyperlipidemia H/O mechanical aortic valve replacement documented in this encounter Results * Erythrocyte sedimentation rate (08/30/2021 6:23 AM CDT) Erythrocyte sedimentation rate 9 < OR = 30 mm/h [facility] Blood specimen (specimen) 08/30/2021 6:23 AM CDT 08/30/2021 6:24 AM CDT Narrative [facility] - 08/31/2021 2:56 AM CDT AN UPDATE OR CORRECTION HAS BEEN MADE TO NAME Bindu Gaines MD LAB BLOOD ORDERABLES Final Result [facility] [address] [place] [address] * Creatine kinase (CK), total (08/30/2021 6:23 AM CDT) CK 130 29 - 143 U/L [facility] Blood specimen (specimen) 08/30/2021 6:23 AM CDT 08/30/2021 6:24 AM CDT Narrative [facility] - 08/31/2021 2:56 AM CDT AN UPDATE OR CORRECTION HAS BEEN MADE TO NAME us Bindu Gaines MD LAB BLOOD ORDERABLES Final Result [facility] [address] [place] [address] * CBC with auto differential (08/30/2021 6:23 AM CDT) WBC 4.5 3.8 - 10.8 Thousand/u L [facility] RBC, POC 4.07 3.80 - 5.10 Million/uL [facility] Hgb 13.1 11.7 - 15.5 g/dL [facility] Hct 38.9 35.0 - 45.0 % [facility] MCV 95.6 80.0 - 100.0 fL [facility] MCH 32.2 27.0 - 33.0 pg [facility] MCHC 33.7 32.0 - 36.0 g/dL [facility] Rdw 12.0 11.0 - 15.0 % [facility] Platelets 180 140 - 400 Thousand/u L [facility] MPV 11.4 7.5 - 12.5 fL [facility] Neutrophils, abs 1,989 1,500 - 7,800 cells/uL [facility] Lymphocytes, abs 1,602 850 - 3,900 cells/uL [facility] Monocyte abs 509 200 - 950 cells/uL [facility] Eosinophils, abs 369 15 - 500 cells/uL [facility] Basophils, abs 32 0 - 200 cells/uL [facility] Neutrophils 44.2 % [facility] Lymphocyte pct 35.6 % [facility] Monocytes 11.3 % [facility] Eosinophils 8.2 % [facility] Basophils 0.7 % [facility] Blood specimen (specimen) 08/30/2021 6:23 AM CDT 08/30/2021 6:24 AM CDT Narrative [facility] - 08/31/2021 2:56 AM CDT AN UPDATE OR CORRECTION HAS BEEN MADE TO NAME Bindu Gaines MD LAB BLOOD ORDERABLES Final Result [facility] [address] [place] [address] documented in this encounter Visit Diagnoses Diagnosis Mixed hyperlipidemia- Primary H/O mechanical aortic valve replacement documented in this encounter Care Teams Deputy Probation Officer Relationship Specialty Start Date End Date Nathalie Jain MD [address] [place] [address] PCP - General Internal Medicine 01/10/21 09/22/22 documented as of this encounter
--- OUTSIDE RECORDS SUMMARY | 2024-04-01 07:38 | XMS_ITS | Encounter Summary ---
Author Organization [facility] Address [address] [place] [address] Care Team Providers Care Helminthology Teacher Name Role Phone Gabi Fagan MD Primary Care Pro vider Encounter Details Date Type Department Care Team (Latest Contact Info) Description 12/21/2020 Anticoagulation Visit [facility] Medical [facility] Cardiology [address] [place] [phone] Judi Angulo RN H/O mechanical aortic valve replacement (Primary [...] on file Legal Sex Female 8:13 AM AWS SOFTWARE DEVELOPMENT ENGINEER Gender Identity Female 06/01/2020 9:42 PM AWS SOFTWARE DEVELOPMENT ENGINEER Sexual Orientation Straight 06/01/2020 9: 42 PM AWS SOFTWARE DEVELOPMENT ENGINEER 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
--- OUTSIDE RECORDS SUMMARY | 2024-04-01 07:38 | XMS_ITS | Encounter Summary ---
Author Organization [facility] Address [address] [place] [address] Care Team Providers Care Art Objects Repairer Name Role Phone Nathalie Jain MD Primary Care Provider +1- [phone] Encounter Details Date Type Department Care Team (Latest Contact Info) Description 02/27/2021 Anticoagulation Visit [facility] Cardiology [address] [place] [address] Huma Trevizo RN H/O mechanical [...] on file Legal Sex Female 8:13 AM TURKEY FARMER Gender Identity Female 06/01/2020 9:42 PM TURKEY FARMER Sexual Orientation Straight 06/01/2020 9: 42 PM TURKEY FARMER 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
--- OUTSIDE RECORDS SUMMARY | 2024-04-01 07:38 | XMS_ITS | Encounter Summary ---
Author Organization [facility] Address [address] [place] [address] Care Team Providers Care Electronic Sensing Equipment Assembler Name Role Phone Nathalie Jain MD Primary Care Provider +1- [phone] Encounter Details Date Type Department Care Team (Latest Contact Info) Description 03/29/2021 Anticoagulation Visit [facility] Cardiology [address] [place] [address] Penny Wilks, BHAVANA H/O mechanical [...] on file Legal Sex Female 8:13 AM WEBLOGIC ADMINISTRATOR Gender Identity Female 06/01/2020 9:42 PM WEBLOGIC ADMINISTRATOR Sexual Orientation Straight 06/01/2020 9: 42 PM WEBLOGIC ADMINISTRATOR 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 Not on file Not on file documented as of this encounter Plan of Treatment Not on file documented as of this encounter Procedures Procedure Name Priority Date/Time Associated Diagnosis Comments PROTIME-INR Routine 03/29/2021 documented in this encounter Results * (ABNORMAL) Protime-INR (03/29/2021) INR 2.30(A) 0.9 - 1.1 [facility] Blood specimen (specimen) us Historical Provider LAB BLOOD ORDERABLES Antonina hernandez Result [facility] documented in this encounter Visit Diagnoses Diagnosis H/O mechanical aortic valve replacement- Primary Chronic anticoagulation Encounter for long-term (current) 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s documented in this encounter Care Teams Electronic Sensing Equipment Assembler Relationship Specialty Start Date End Date Nathalie Jain MD [address] [facility] [place] [address] PCP - General Internal Medicine 01/10/21 09/22/22 documented as of this encounter
--- OUTSIDE RECORDS SUMMARY | 2024-04-01 07:38 | XMS_ITS | Encounter Summary ---
Author Organization [facility] Medical [facility] Address [address] [place] [address] Care Team Providers Care Salon Coordinator Name Role Phone Nathalie Jain MD Primary Care Provider +1- [phone] Encounter Details Date Type Department Care Team (Late st Contact Info) Description 01/25/2021 Telephone [facility] Cardiology [address] [facility] [address] [place] [address] Bindu Gaines MD [address] [place] [address] Social History Tobacco Use Types [...] on file Legal Sex Female 8:13 AM FARM MANAGEMENT AGENT Gender Identity Female 06/01/2020 9:42 PM FARM MANAGEMENT AGENT Sexual Orientation Straight 06/01/2020 9: 42 PM FARM MANAGEMENT AGENT 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 I finally have a new PCP who l like. For my record, Dr Nathalie Jain. [facility] [address] [place] [address] She???s doing a work up for me for Fibromyalgia. Has suggested Lyrica. We just wanted to double check to make sure it???s okay to take.. due to my artificial heart valve. She???s also okay with prescribing the Amoxicillin for my dental cleaning. documented in this encounter Plan of Treatment Not on file documented as of this encounter Visit Diagnoses Not on filedocumented in this encounter Care Teams Salon Coordinator Relationship Specialty Start Date End Date Nathalie Jain MD [address] [place] [address] PCP - General Internal Medicine 01/10/21 09/22/22 documented as of this encounter
--- OUTSIDE RECORDS SUMMARY | 2024-04-01 07:38 | XMS_ITS | Encounter Summary ---
Author Organization [facility] Medical [facility] Address [address] [place] [address] Care Team Providers Care Director Of Health Care Marketing Name Role Phone Nathalie Jain MD Primary Care Provider +1- [phone] Encounter Details Date Type Department Care Team (Latest Contact Info) Description 09/12/2021 Anticoagulation Visit [facility] Medical [facility] Cardiology [address] [place] [address] Huma Trevizo RN H/O mechanical [...] on file Legal Sex Female 8:13 AM WIRE HARNESS DESIGN ENGINEER Gender Identity Female 06/01/2020 9:42 PM WIRE HARNESS DESIGN ENGINEER Sexual Orientation Straight 06/01/2020 9: 42 PM WIRE HARNESS DESIGN ENGINEER 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 EXECUTIVE [place] [address] PCP - General Internal Medicine 01/10/21 09/22/22 documented as of this encounter
--- OUTSIDE RECORDS SUMMARY | 2024-04-01 07:38 | XMS_ITS | Encounter Summary ---
Author Organization [facility] Healthcare Address [address] [place] [address] Care Team Providers Care Room Attendant Name Role Phone Gabi Fagan MD Primary Care Pro vider Reason for Visit * Neurology (Routine) - Closed Specialty Diagnoses / Procedures Referred By Contac t Referred To Contact Diagnoses Bilateral sciatica Procedures EMG/NCV - Gabi Fagan MD Phone: tel: fax: [facility] [address] [place] [phone] Referral ID Status Reason Start Date Expiration Date Visits Re quested Visits Authorized [id number] Closed 11/21/2020 12/21/2021 1 1 Encounter Details Date Type Department Care Team (Late st Contact Info) Description 12/27/2020 2:00 PM CDT Therapy [facility] Physical Therapy [address] [place] [id number] Bilateral sciatica Social History Tobacco Use Types Packs/Day Years [...] on file Legal Sex Female 8:13 AM BILL CUTTER Gender Identity Female 06/01/2020 9:42 PM BILL CUTTER Sexual Orientation Straight 06/01/2020 9: 42 PM BILL CUTTER 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 documented in this encounter Progress Notes * Dameon Valero MD - 12/27/2020 2:00 PM CDT Scanned reports and notes from EMG/NCV test can be found in the Media section of the patient's chart. documented in this encounter Plan of Treatment Not on file documented as of this encounter Visit Diagnoses Diagnosis Bilateral sciatica Sciatica documented in this encounter Orders Imaging Orders Without Results Count Last Order ed Date First Ordered Date EMG/NCV 1 12/27/2020 documented in this encounter Care Teams Room Attendant Relationship Specialty Start Date End Date Gabi Fagan MD PCP - General Family Medicine 07/30/20 01/09/21 documented as of this encounter
--- OUTSIDE RECORDS SUMMARY | 2024-04-01 07:38 | XMS_ITS | Encounter Summary ---
Author Organization [facility] Address [address] [place] [address] Care Team Providers Care Geothermal Plant Manager Name Role Phone Nathalie Jain MD Primary Care Provider [phone]- [phone] Encounter Details Date Type Department Care Team (Late st Contact Info) Description 08/13/2021 Telephone [facility] Cardiology [address] [facility] [address] [place] [address] Bindu Gaines MD [address] [place] [address] Social History Tobacco Use Types [...] on file Legal Sex Female 8:13 AM THERMAL SPRAY OPERATOR Gender Identity Female 06/01/2020 9:42 PM THERMAL SPRAY OPERATOR Sexual Orientation Straight 06/01/2020 9: 42 PM THERMAL SPRAY OPERATOR 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 Pt aware. * Telephone Encounter - Marley Tran - 08/13/2021 8:47 AM CDT Pt requesting INR order be sent to [facility] in [place]. Thank you. Contact: documented in this encounter Plan of Treatment Scheduled Orders Name Type Priority Associated Diagnoses Orde r Schedule Protime-INR Lab Routine Chronic anticoagulation H/O mechanical aortic valve replacement 52 Occurrences starting 08/13/2021 until 08/13/2022, 20 completed documented as of this encounter Procedures Procedure Name Priority Date/Time Associated Diagnosis Comments PROTIME-INR Routine 08/04/2022 6:24 AM CDT Chronic anticoagulation H/O mechanical aortic valve replacement PROTIME-INR Routine 07/28/2022 6:11 AM CDT Chronic anticoagulation H/O mechanical aortic valve replacement PROTIME-INR Routine 07/14/2022 6:33 AM CDT Chronic anticoagulation H/O mechanical aortic valve replacement PROTIME-INR Routine 07/11/2022 7:09 AM CDT Chronic anticoagulation H/O mechanical aortic valve replacement PROTIME-INR Routine 07/10/2022 6:33 AM CDT Chronic anticoagulation H/O mechanical aortic valve replacement PROTIME-INR Routine 06/12/2022 6:31 AM THERMAL SPRAY OPERATOR Chronic anticoagulation H/O mechanical aortic valve replacement PROTIME-INR Routine 05/15/2022 6:14 AM THERMAL SPRAY OPERATOR Chronic anticoagulation H/O mechanical aortic valve replacement PROTIME-INR Routine 04/17/2022 6:12 AM THERMAL SPRAY OPERATOR Chronic anticoagulation H/O mechanical aortic valve replacement PROTIME-INR Routine 03/27/2022 6:53 AM THERMAL SPRAY OPERATOR Chronic anticoagulation H/O mechanical aortic valve replacement PROTIME-INR Routine 02/27/2022 6:45 AM THERMAL SPRAY OPERATOR Chronic anticoagulation H/O mechanical aortic valve replacement PROTIME-INR Routine 02/19/2022 11:49 AM THERMAL SPRAY OPERATOR Chronic anticoagulation H/O mechanical aortic valve replacement PROTIME-INR Routine 02/11/2022 6:12 AM CDT Chronic anticoagulation H/O mechanical aortic valve replacement PROTIME-INR Routine 01/14/2022 6:27 AM CDT Chronic anticoagulation H/O mechanical aortic valve replacement PROTIME-INR Routine 12/17/2021 6:20 AM CDT Chronic anticoagulation H/O mechanical aortic valve replacement PROTIME-INR Routine 11/18/2021 7:13 AM CDT Chronic anticoagulation H/O mechanical aortic valve replacement PROTIME-INR Routine 11/11/2021 6:40 AM CDT Chronic anticoagulation H/O mechanical aortic valve replacement PROTIME-INR Routine 11/05/2021 6:33 AM CDT Chronic anticoagulation H/O mechanical aortic valve replacement PROTIME-INR Routine 10/08/2021 6:23 AM CDT Chronic anticoagulation H/O mechanical aortic valve replacement PROTIME-INR Routine 09/11/2021 7:01 AM CDT Chronic anticoagulation H/O mechanical aortic valve replacement PROTIME-INR Routine 08/13/2021 10:52 AM CDT Chronic anticoagulation H/O mechanical aortic valve replacement documented in this encounter Results * (ABNORMAL) Protime-INR (08/04/2022 6:24 AM CDT) INR 3.4(H) [facility] Comment: Reference Range ? 0.9-1.1 Moderate-intensity Warfarin Therapy 2.0-3.0 Higher-intensity Warfarin Therapy ?? 3.0-4.0 PT 31.4(H) 9.0 - 11.5 sec [facility] Comment: For additional information, please refer to http://Trendr.[employer]/faq/UMY454 (This link is being provided for informational/ educational purposes only.) Blood specimen (specimen) 08/04/2022 6:24 AM CDT 08/04/2022 6:26 AM CDT Bindu Gaines MD LAB BLOOD ORDERABLES Final Result [facility] [address] [place] [address] * (ABNORMAL) Protime-INR (07/28/2022 6:11 AM CDT) INR 4.0(H) [facility] Comment: Reference Range ? 0.9-1.1 Moderate-intensity Warfarin Therapy 2.0-3.0 Higher-intensity Warfarin Therapy ?? 3.0-4.0 PT 36.1(H) 9.0 - 11.5 sec [facility] Comment: For additional information, please refer to http://Trendr.[employer]/faq/GGP035 (This link is being provided for informational/ educational purposes only.) Blood specimen (specimen) 07/28/2022 6:11 AM CDT 07/28/2022 6:13 AM CDT Bindu Gaines MD LAB BLOOD ORDERABLES Final Result Performing Organization Address [facility] Co de Phone Number [facility] [address] [place] [address] * (ABNORMAL) Protime-INR (07/14/2022 6:33 AM CDT) INR 1.9(H) [facility] Elizabeth Comment: Reference Range ? 0.9-1.1 Moderate-intensity Warfarin Therapy 2.0-3.0 Higher-intensity Warfarin Therapy ?? 3.0-4.0 PT 18.6(H) 9.0 - 11.5 sec [facility] Comment: For additional information, please refer to http://[employer]/faq/IKY791 (This link is being provided for informational/ educational purposes only.) Blood specimen (specimen) 07/14/2022 6:33 AM CDT 07/14/2022 6:34 AM CDT Bindu Gaines MD LAB BLOOD ORDERABLES Final Result Performing Organization Address [facility] Co de Phone Number [facility] [address] [place] [address] * (ABNORMAL) Protime-INR (07/11/2022 7:09 AM CDT) INR 3.5(H) [facility] Comment: Reference Range ? 0.9-1.1 Moderate-intensity Warfarin Therapy 2.0-3.0 Higher-intensity Warfarin Therapy ?? 3.0-4.0 PT 32.2(H) 9.0 - 11.5 sec [facility] Comment: For additional information, please refer to http://[employer]/faq/QTC172 (This link is being provided for informational/ educational purposes only.) Blood specimen (specimen) 07/11/2022 7:09 AM CDT 07/11/2022 7:10 AM CDT Bindu Gaines MD LAB BLOOD ORDERABLES Final Result Performing Organization Address [facility] de Phone Number [facility] [address] [place] [address] * (ABNORMAL) Protime-INR (07/10/2022 6:33 AM CDT) INR 7.0(H) [facility] Comment: Verified by repeat analysis. Reference Range ? 0.9-1.1 Moderate-intensity Warfarin Therapy 2.0-3.0 Higher-intensity Warfarin Therapy ?? 3.0-4.0 PT 60.2(H) 9.0 - 11.5 sec [facility] Comment: Verified by repeat analysis. For additional information, please refer to http://[employer]/faq/EMS270 (This link is being provided for informational/ educational purposes only.) Blood specimen (specimen) 07/10/2022 6:33 AM CDT 07/10/2022 6:33 AM CDT Bindu Gaines MD LAB BLOOD ORDERABLES Final Result Performing Organization Address [facility] de Phone Number [facility] [address] [place] [address] * (ABNORMAL) Protime-INR (06/12/2022 6:31 AM THERMAL SPRAY OPERATOR) INR 2.5(H) [facility] Comment: Reference Range ? 0.9-1.1 Moderate-intensity Warfarin Therapy 2.0-3.0 Higher-intensity Warfarin Therapy ?? 3.0-4.0 PT 23.7(H) 9.0 - 11.5 sec [facility] Comment: For additional information, please refer to http://[employer]/faq/EJH404 (This link is being provided for informational/ educational purposes only.) Blood specimen (specimen) 06/12/2022 6:31 AM THERMAL SPRAY OPERATOR 06/12/2022 6:31 AM THERMAL SPRAY OPERATOR Bindu Gaines MD LAB BLOOD ORDERABLES Final Result Performing Organization Address [facility] de Phone Number [facility] [address] [place] [address] * (ABNORMAL) Protime-INR (05/15/2022 6:14 AM THERMAL SPRAY OPERATOR) INR 3.1(H) [facility] Comment: Reference Range ? 0.9-1.1 Moderate-intensity Warfarin Therapy 2.0-3.0 Higher-intensity Warfarin Therapy ?? 3.0-4.0 PT 28.6(H) 9.0 - 11.5 sec [facility] Comment: For additional information, please refer to http://Trendr.[employer]/faq/CKQ444 (This link is being provided for informational/ educational purposes only.) Blood specimen (specimen) 05/15/2022 6:14 AM THERMAL SPRAY OPERATOR 05/15/2022 6:14 AM THERMAL SPRAY OPERATOR Bindu Gaines MD LAB BLOOD ORDERABLES Final Result Performing Organization Address [facility] de Phone Number [facility] [address] [place] [address] * (ABNORMAL) Protime-INR (04/17/2022 6:12 AM THERMAL SPRAY OPERATOR) INR 2.9(H) [facility] Comment: Reference Range ? 0.9-1.1 Moderate-intensity Warfarin Therapy 2.0-3.0 Higher-intensity Warfarin Therapy ?? 3.0-4.0 PT 27.0(H) 9.0 - 11.5 sec [facility] Comment: For additional information, please refer to http://Trendr.[employer]/faq/IQJ142 (This link is being provided for informational/ educational purposes only.) Blood specimen (specimen) 04/17/2022 6:12 AM THERMAL SPRAY OPERATOR 04/17/2022 6:14 AM THERMAL SPRAY OPERATOR Narrative [facility] - 04/17/2022 3:47 PM THERMAL SPRAY OPERATOR AN UPDATE OR CORRECTION HAS BEEN MADE TO NAME Bindu Gaines MD LAB BLOOD ORDERABLES Final Result Performing Organization Address [facility] Co de Phone Number [facility] [address] [place] [address] * (ABNORMAL) Protime-INR (03/27/2022 6:53 AM THERMAL SPRAY OPERATOR) INR 2.9(H) [facility] Comment: Reference Range ? 0.9-1.1 Moderate-intensity Warfarin Therapy 2.0-3.0 Higher-intensity Warfarin Therapy ?? 3.0-4.0 PT 27.5(H) 9.0 - 11.5 sec [facility] Comment: For additional information, please refer to http://Trendr.[employer]/faq/ZAZ818 (This link is being provided for informational/ educational purposes only.) Blood specimen (specimen) 03/27/2022 6:53 AM THERMAL SPRAY OPERATOR 03/27/2022 6:54 AM THERMAL SPRAY OPERATOR Result [facility] Bindu Gaines MD LAB BLOOD ORDERABLES Final Result Performing Organization Address [facility] de Phone Number [facility] [address] [place] [address] * (ABNORMAL) Protime-INR (02/27/2022 6:45 AM THERMAL SPRAY OPERATOR) INR 3.5(H) [facility] Comment: Reference Range ? 0.9-1.1 Moderate-intensity Warfarin Therapy 2.0-3.0 Higher-intensity Warfarin Therapy ?? 3.0-4.0 PT 31.9(H) 9.0 - 11.5 sec [facility] Comment: For additional information, please refer to http://[employer]/faq/VBZ447 (This link is being provided for informational/ educational purposes only.) Blood specimen (specimen) 02/27/2022 6:45 AM THERMAL SPRAY OPERATOR 02/27/2022 6:46 AM THERMAL SPRAY OPERATOR Bindu Gaines MD LAB BLOOD ORDERABLES Final Result Performing Organization Address [facility] Co de Phone Number [facility] [address] [place] [address] * (ABNORMAL) Protime-INR (02/19/2022 11:49 AM THERMAL SPRAY OPERATOR) INR 4.3(H) [facility] Comment: Reference Range ? 0.9-1.1 Moderate-intensity Warfarin Therapy 2.0-3.0 Higher-intensity Warfarin Therapy ?? 3.0-4.0 PT 38.5(H) 9.0 - 11.5 sec [facility] Comment: For additional information, please refer to http://[employer]/faq/ETZ986 (This link is being provided for informational/ educational purposes only.) Blood specimen (specimen) 02/19/2022 11:49 AM THERMAL SPRAY OPERATOR 02/19/2022 11:50 AM THERMAL SPRAY OPERATOR Narrative [facility] - 02/20/2022 2:34 AM THERMAL SPRAY OPERATOR FASTING:UNKNOWN FASTING: UNKNOWN us Bindu Gaines MD LAB BLOOD ORDERABLES Final Result Performing Organization Address [facility] Co de Phone Number [facility] [address] [place] [address] * Protime-INR (02/11/2022 6:12 AM CDT) INR 1.1 [facility] Comment: Reference Range ? 0.9-1.1 Moderate-intensity Warfarin Therapy 2.0-3.0 Higher-intensity Warfarin Therapy ?? 3.0-4.0 PT 11.4 9.0 - 11.5 sec [facility] Comment: For additional information, please refer to http://Trendr.[employer]/faq/DYM027 (This link is being provided for informational/ educational purposes only.) Blood specimen (specimen) 02/11/2022 6:12 AM CDT 02/11/2022 6:12 AM CDT Bindu Gaines MD LAB BLOOD ORDERABLES Final Result Performing Organization Address [facility] de Phone Number [facility] [address] [place] [address] * (ABNORMAL) Protime-INR (01/14/2022 6:27 AM CDT) INR 3.2(H) [facility] Comment: Reference Range ? 0.9-1.1 Moderate-intensity Warfarin Therapy 2.0-3.0 Higher-intensity Warfarin Therapy ?? 3.0-4.0 PT 29.8(H) 9.0 - 11.5 sec [facility] Comment: For additional information, please refer to http://Trendr.[employer]/faq/JNE941 (This link is being provided for informational/ educational purposes only.) Blood specimen (specimen) 01/14/2022 6:27 AM CDT 01/14/2022 6:27 AM CDT us Bindu Gaines MD LAB BLOOD ORDERABLES Final Result Performing Organization Address [facility] Co de Phone Number [facility] [address] [place] [address] * (ABNORMAL) Protime-INR (12/17/2021 6:20 AM CDT) INR 2.8(H) [facility] Comment: Reference Range ? 0.9-1.1 Moderate-intensity Warfarin Therapy 2.0-3.0 Higher-intensity Warfarin Therapy ?? 3.0-4.0 PT 26.6(H) 9.0 - 11.5 sec [facility] Comment: For additional information, please refer to http://Trendr.[employer]/faq/RYQ345 (This link is being provided for informational/ educational purposes only.) Blood specimen (specimen) 12/17/2021 6:20 AM CDT 12/17/2021 6:21 AM CDT [facility] - 12/17/2021 3:22 PM CDT FASTING:NO FASTING: NO Bindu Gaines MD LAB BLOOD ORDERABLES Final Result [facility] [place] [address] [place] [address] * (ABNORMAL) Protime-INR (11/18/2021 7:13 AM CDT) INR 2.6(H) [facility] Comment: Reference Range ? 0.9-1.1 Moderate-intensity Warfarin Therapy 2.0-3.0 Higher-intensity Warfarin Therapy ?? 3.0-4.0 PT 24.8(H) 9.0 - 11.5 sec [facility] Comment: For additional information, please refer to http://[employer]/faq/LFA430 (This link is being provided for informational/ educational purposes only.) Blood specimen (specimen) 11/18/2021 7:13 AM CDT 11/18/2021 7:14 AM CDT Bindu Gaines MD LAB BLOOD ORDERABLES Final Result Performing Organization Address [facility] Co de Phone Number [facility] [address] [place] [address] * (ABNORMAL) Protime-INR (11/11/2021 6:40 AM CDT) INR 2.3(H) [facility] Comment: Reference Range ? 0.9-1.1 Moderate-intensity Warfarin Therapy 2.0-3.0 Higher-intensity Warfarin Therapy ?? 3.0-4.0 PT 22.1(H) 9.0 - 11.5 sec [facility] Comment: For additional information, please refer to http://S[employer]/faq/RLR401 (This link is being provided for informational/ educational purposes only.) Blood specimen (specimen) 11/11/2021 6:40 AM CDT 11/11/2021 6:41 AM CDT Bindu Gaines MD LAB BLOOD ORDERABLES Final Result Performing Organization Address [facility] de Phone Number [facility] [address] [place] [address] * (ABNORMAL) Protime-INR (11/05/2021 6:33 AM CDT) INR 3.9(H) [facility] Comment: Reference Range ? 0.9-1.1 Moderate-intensity Warfarin Therapy 2.0-3.0 Higher-intensity Warfarin Therapy ?? 3.0-4.0 PT 35.5(H) 9.0 - 11.5 sec [facility] Comment: For additional information, please refer to http://[employer]/faq/SKG693 (This link is being provided for informational/ educational purposes only.) Blood specimen (specimen) 11/05/2021 6:33 AM CDT 11/05/2021 6:33 AM CDT Bindu Gaines MD LAB BLOOD ORDERABLES Final Result Performing Organization Address [facility] de Phone Number [facility] [address] [place] [address] * (ABNORMAL) Protime-INR (10/08/2021 6:23 AM CDT) INR 3.2(H) [facility] Comment: Reference Range ? 0.9-1.1 Moderate-intensity Warfarin Therapy 2.0-3.0 Higher-intensity Warfarin Therapy ?? 3.0-4.0 PT 30.0(H) 9.0 - 11.5 sec [facility] Comment: For additional information, please refer to http://Trendr.[employer]/faq/PYN189 (This link is being provided for informational/ educational purposes only.) Blood specimen (specimen) 10/08/2021 6:23 AM CDT 10/08/2021 6:24 AM CDT Bindu Gaines MD LAB BLOOD ORDERABLES Final Result Performing Organization Address [facility] de Phone Number [facility] [address] [place] [address] * (ABNORMAL) Protime-INR (09/11/2021 7:01 AM CDT) INR 2.7(H) [facility] Comment: Reference Range ? 0.9-1.1 Moderate-intensity Warfarin Therapy 2.0-3.0 Higher-intensity Warfarin Therapy ?? 3.0-4.0 PT 25.8(H) 9.0 - 11.5 sec [facility] Comment: For additional information, please refer to http://Trendr.[employer]/faq/QGR495 (This link is being provided for informational/ educational purposes only.) Blood specimen (specimen) 09/11/2021 7:01 AM CDT 09/11/2021 7:01 AM CDT Bindu Gaines MD LAB BLOOD ORDERABLES Final Result Performing Organization Address [facility] Co de Phone Number [facility] [address] [place] [address] * (ABNORMAL) Protime-INR (08/13/2021 10:52 AM CDT) INR 3.2(H) [facility] Comment: Reference Range ? 0.9-1.1 Moderate-intensity Warfarin Therapy 2.0-3.0 Higher-intensity Warfarin Therapy ?? 3.0-4.0 PT 29.5(H) 9.0 - 11.5 sec [facility] Comment: For additional information, please refer to http://Trendr.[employer]/faq/JZX502 (This link is being provided for informational/ educational purposes only.) Blood specimen (specimen) 08/13/2021 10:52 AM CDT 08/13/2021 10:53 AM CDT Bindu Gaines MD LAB BLOOD ORDERABLES Final Result Performing Organization Address [facility] Co de Phone Number [facility] [address] [place] [address] documented in this encounter Visit Diagnoses Diagnosis Chronic anticoagulation- Primary Encounter for long-term (current) 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s H/O mechanical aortic valve replacement documented in this encounter Care Teams Geothermal Plant Manager Relationship Specialty Start Date End Date Nathalie Jain MD [address] [employer] [facility]EC[facility] [place] [id number] PCP - General Internal Medicine 01/10/21 09/22/22 documented as of this encounter
--- OUTSIDE RECORDS SUMMARY | 2024-04-01 07:38 | XMS_ITS | Encounter Summary ---
Author Organization [facility] Address [address] [place] [address] Care Team Providers Care Chemical Inspector Name Role Phone Gabi Fagan MD Primary Care Pro vider Encounter Details Date Type Department Care Team (Latest Contact Info) Description 01/03/2021 Anticoagulation Visit [facility] Cardiology [address] [place] [address] Huma Trevizo RN H/O mechanical [...] on file Legal Sex Female 8:13 AM FREELANCE DIGITAL PROJECT MANAGER Gender Identity Female 06/01/2020 9:42 PM FREELANCE DIGITAL PROJECT MANAGER Sexual Orientation Straight 06/01/2020 9: 42 PM FREELANCE DIGITAL PROJECT MANAGER 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
--- OUTSIDE RECORDS SUMMARY | 2024-04-01 07:38 | XMS_ITS | Encounter Summary ---
Author Organization [facility] Address [address] [place] [address] Care Team Providers Care Plumber'S Helper Name Role Phone Nathalie Jain MD Primary Care Provider [phone]- [phone] Encounter Details Date Type Department Care Team (Latest Contact Info) Description 07/16/2021 Anticoagulation Visit [facility] Cardiology [address] [place] [address] Penny Wilks, BHAVANA H/O mechanical [...] on file Legal Sex Female 8:13 AM DRIVER RECRUITER Gender Identity Female 06/01/2020 9:42 PM DRIVER RECRUITER Sexual Orientation Straight 06/01/2020 9: 42 PM DRIVER RECRUITER Occupation Industry Job Start Date Job End Date [employer] Not on file Not on file Not on file documented as of this encounter Plan of Treatment Not on file documented as of this encounter Visit Diagnoses Diagnosis H/O mechanical aortic valve replacement- Primary Chronic anticoagulation Encounter for long-term (current) 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s documented in this encounter Care Teams Plumber'S Helper Relationship Specialty Start Date End Date Nathalie Jain MD [address] [employer] [facility] [place] [address] PCP - General Internal Medicine 01/10/21 09/22/22 documented as of this encounter
--- OUTSIDE RECORDS SUMMARY | 2024-04-01 07:39 | XMS_ITS | Encounter Summary ---
Author Organization [facility] Address [address] [place] [address] Care Team Providers Care Systems Protection Technician Name Role Phone Gabi Fagan MD Primary Care Pro vider Encounter Details Date Type Department Care Team (Latest Contact Info) Description 08/27/2020 Anticoagulation Visit [facility] Cardiology [address] [place] [address] Huma Trevizo RN H/O mechanical aortic valve replacement (Primary Dx); retirement current 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 therapy Social History Tobacco Use Types Packs/Day Years Used Date Smoking Tobacco: Never Smokeless Tobacco: Never Alcohol Use Standard Drinks/Week Comments Yes 1 (1 standard drink = 0.6 oz pur e alcohol) socially AUDIT-C Answer Date Recorded Q1: How often do you have a drink containing alc ohol? Monthly or less 06/12/2020 Q2: How many drinks containi ng alcohol do you have on a typical day when you are drinking? 1 or 2 06/12/2020 Q3: How often do you have si x or more drinks on one occasion? 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 Not on file Not on file documented as of this encounter Plan of Treatment Not on file documented as of this encounter Procedures Procedure Name Priority Date/Time Associated Diagnosis Comments PROTIME-INR Routine 08/27/2020 documented in this encounter Results * (ABNORMAL) Protime-INR (08/27/2020) INR 3.10(A) 0.9 - 1.1 EXTERNAL LAB Blood specimen (specimen) us Historical Provider LAB BLOOD ORDERABLES Antonina l Result EXTERNAL LAB documented in this encounter Visit Diagnoses Diagnosis H/O mechanical aortic valve replacement- Primary keno terminal 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 Care Teams Systems Protection Technician Relationship Specialty Start Date End Date Gabi Fagan MD PCP - General Family Medicine 07/30/20 01/09/21 documented as of this encounter
--- OUTSIDE RECORDS SUMMARY | 2024-04-01 07:39 | XMS_ITS | Encounter Summary ---
Author Organization [facility] Address [address] [place] [address] Care Team Providers Care Chemist Intern Name Role Phone Gabi Fagan MD Primary Care Pro vider Reason for Referral * Neurology (Routine) - Closed Specialty Diagnoses / Procedures Referred By Contla t Referred To Contact Diagnoses Bilateral sciatica Procedures EMG/NCV - Gabi Fagan MD Phone: tel: fax: [address] [phone] Referral ID Status Reason Start Date Expiration Date Visits Re quested Visits Authorized [id number] Closed 11/21/2020 12/21/2021 1 1 Reason for Visit * Reason Comments Follow-up 3 month Encounter Details Date Type Department Care Team (Latest Contact Info) Description 11/21/2020 1:00 PM CDT Office Visit [facility] Primary Care [address] [place] [address] [address] [place] [address] Gabi Fagan MD [address] [place] [phone] Bilateral sciatica (Primary Dx); Moderate episode of recurrent major depressive disorder (HCC); Arthralgia, unspecified joint; Primary osteoarthritis of both knees; Hypercholesteremia; Bicuspid aortic valve; Gastroesophageal reflux disease, unspecified whether esophagitis present Social History Tobacco Use Types Packs/Day Years [...] on file Legal Sex Female 8:13 AM NURSE OB Gender Identity Female 06/01/2020 9:42 PM NURSE OB Sexual Orientation Straight 06/01/2020 9: 42 PM NURSE OB 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 file Not on file Not on file documented as of this encounter Last Filed Vital Signs Vital Sign Reading Time Taken Comments Blood Pressure 114/70 11/21/2020 12:49 PM CDT Pulse 90 11/21/2020 12:49 PM CDT Temperature 36.1 ??C (97 ??F) 11/21/2020 12:49 PM CDT Respiratory Rate 16 11/21/2020 12:49 PM CDT Oxygen Saturation 98% 11/21/2020 12:49 PM CDT Inhaled Oxygen Concentration - - Weight 64.4 kg (142 lb) 11/21/2020 12:49 PM CDT Height 157.5 cm (5' 2 ) 11/21/2020 12:49 PM CDT Body Mass Index 25.97 11/21/2020 12:49 PM CDT documented in this encounter Progress Notes * Gabi Fagan MD - 11/21/2020 1:00 PM CDT Images from the original note were not included. Assessment/Plan: Assessment/Plan Diagnoses and all orders for this visit: Bilateral sciatica (Primary) Assessment & Plan: Wosening with lle numbness, EMG ordered Continue cymbalta Declines spine surgery referral, does not desire follow up with pain management Orders: - EMG/NCV -; Future Moderate episode of recurrent major depressive disorder (HCC) Assessment & Plan: Continue the cymbalta Arthralgia, unspecified joint Assessment & Plan: Negative rheumatology work up Extensive discussion on risks of taking celebrex including life threatening bleeding episodes, she desires to continue Primary osteoarthritis of both knees Assessment & Plan: Consider steroid injection, she defers currently Hypercholesteremia Assessment & Plan: Continue 20mg atorvastatin Bicuspid aortic valve Assessment & Plan: Sp mechanical valve replacement Following with cardiology Continue warfarin per cardiology Gastroesophageal reflux disease, unspecified whether esophagitis present Comments: Stable off ppi, discussed risks of worsening with celebrex, she states understanding F/u after EMG or sooner as needed if symptoms not improving or worsen. Strict return/ED precautionsdiscussed. Subjective: Yessy Donaldson is a 65 y.o. female here for follow up chronic conditions HPI Chief Complaint Patient presents with ??? Follow-up 3 month R scitica: on cymbalta. flexeril just made her sleepy. Previously saw pain management and made painworse. Has done PHYSICAL THERAPY and seen chiropractor. Massage helps, but hasn't been lately. Got over the counter patches as prescription too expensive, felt they were too small. Does not want surgery Arthralgias: negative QUINTON & RF, taking 200mg celebrex daily which brings pain from 6-7 down to 3, knows risk of taking with warfarin. No improvement with voltaren gel previously. Hyperlipidemia: on 20mg atorvastatin GERD: d/c prilosec as not helping asthma: albuterol as needed??rarely Bicuspid aortic valve s/p mechanical valve replacement: on warfarin??4mg Review of Systems Constitutional: Negative for fever. HENT: Negative for sore throat. Respiratory: Negative for cough and shortness of breath. Gastrointestinal: Negative for diarrhea and vomiting. Musculoskeletal: Positive for arthralgias and myalgias. Neurological: Positive for numbness (intermittent in left lower leg). Objective: Vital signs were reviewed. Vitals: 11/21/20 1249 BP: 114/70 BP Location: Left arm Patient Position: Sitting Pulse: 90 Resp: 16 Temp: 36.1 ??C (97 ??F) TempSrc: Temporal SpO2: 98% Weight: 64.4 kg (142 lb) Height: 157.5 cm (5' 2 ) Physical Exam Gen: NAD, comfortable, appears as stated age Eyes: no conjunctival injection, EOMI ENMT: external ears symmetric, nares patent CV: RRR without murmur, rub, gallop. Pulm: good respiratory effort, CTAB no rhonchi, rales, or wheezes Abd: soft, non-tender, non-distended, bowel sounds present Skin: no rashes or nodules, warm and dry Ext: No lower extremity edema MSK/Neuro: symmetric limb movement, normal gait, decreased sensation in LLE, strength bilateral lower extremities 5/5 Psych: alert and oriented to person/place/time, appropriate judgment and insight Gabi Fagan MD documented in this encounter Miscellaneous Notes * Assessment & Plan Note - Gabi Fagan MD - 11/21/2020 1:22 PM CDTAssociated Problem(s): Asthma Continue albuterol as needed * Assessment & Plan Note - Gabi Fagan MD - 11/21/2020 1:20 PM CDTAssociated Problem(s): Osteoarthritis of knee Consider steroid injection, she defers currently * Assessment & Plan Note - Gabi Fagan MD - 11/21/2020 1:20 PM CDTAssociated Problem(s): Moderate episode of recurrent major depressive disorder (HCC) Continue the cymbalta * Assessment & Plan Note - Gabi Fagan MD - 11/21/2020 1:19 PM CDTAssociated Problem(s): Bilateral sciatica Wosening with lle numbness, EMG ordered Continue cymbalta Declines spine surgery referral, does not desire follow up with pain management * Assessment & Plan Note - Gabi Fagan MD - 11/21/2020 1:19 PM CDTAssociated Problem(s): Bicuspid aortic valve Sp mechanical valve replacement Following with cardiology Continue warfarin per cardiology * Assessment & Plan Note - Gabi Fagan MD - 11/21/2020 1:18 PM CDTAssociated Problem(s): Arthralgia Negative rheumatology work up Extensive discussion on risks of taking celebrex including life threatening bleeding episodes, she desires to continue * Assessment & Plan Note - Gabi Fagan MD - 11/21/2020 1:17 PM CDTAssociated Problem(s): Hypercholesteremia (Resolved 12/10/2020) Continue 20mg atorvastatin documented in this encounter Plan of Treatment Scheduled Orders Name Type Priority Associated Diagnoses Orde r Schedule EMG/NCV - Neurology Routine Bilateral sciatica 1 Occurrences starting 11/21/2020 until 11/21/2021 documented as of this encounter Visit Diagnoses Diagnosis Bilateral sciatica- Primary Sciatica Moderate episode of recurrent major depressive disorder (HCC) Arthralgia, unspecified joint Primary osteoarthritis of both knees Hypercholesteremia Pure hypercholesterolemia Bicuspid aortic valve Congenital insufficiency of aortic valve Gastroesophageal reflux disease, unspecified whether esophagitis present documented in this encounter Discontinued Medications Medication Sig Discontinue Reason Start Date End Da te lidocaine (LIDODERM) 5 %Indications:Bilateral sciatica Place 1 patch on the skin daily Apply to painful area 12 hours per day, remove for 12 hours. 08/27/2020 11/21/2020 magnesium oxide 400 mg magnesium capsule Take 400 mg by mouth daily 08/27/2020 11/21/2020 ubidecarenone (coenzyme Q10) 100 mg tablet Take by mouth 11/21/2020 documented as of this encounter Care Teams Chemist Intern Relationship Specialty Start Date End Date Gabi Fagan MD PCP - General Family Medicine 07/30/20 01/09/21 documented as of this encounter
--- OUTSIDE RECORDS SUMMARY | 2024-04-01 07:39 | XMS_ITS | Encounter Summary ---
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 Social History [...] on file Legal Sex Female 8:13 AM 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 Gender Identity Female 06/01/2020 9:42 PM 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 PROFESSOR Sexual Orientation Straight 06/01/2020 9: 42 PM 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 PROFESSOR 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 Not on file Not on file documented as of this encounter Plan of Treatment Not on file documented as of this encounter Procedures Procedure Name Priority Date/Time Associated Diagnosis Comments PROTIME-INR Routine 09/20/2020 documented in this encounter Results * (ABNORMAL) Protime-INR (09/20/2020) INR 3.00(A) 0.9 - 1.1 [facility] Blood specimen (specimen) us Historical Provider LAB BLOOD ORDERABLES Antonina l Result [facility] documented in this encounter Visit Diagnoses Diagnosis H/O mechanical aortic valve replacement- 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
--- OUTSIDE RECORDS SUMMARY | 2024-04-01 07:39 | XMS_ITS | Encounter Summary ---
Author Organization [facility] Address [address] [place] [address] Care Team Providers Care Maintenance Technician 2Nd Shift Name Role Phone Gabi Fagan MD Primary Care Pro vider Encounter Details Date Type Department Care Team (Latest Contact Info) Description 10/19/2020 Anticoagulation Visit [facility] Cardiology [address] [place] [address] Huma Trevizo RN H/O mechanical aortic valve replacement (Primary Dx); [facility] current 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 therapy Social History [...] on file Legal Sex Female 8:13 AM SUSTAINABILITY DIRECTOR Gender Identity Female 06/01/2020 9:42 PM SUSTAINABILITY DIRECTOR Sexual Orientation Straight 06/01/2020 9: 42 PM SUSTAINABILITY DIRECTOR 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
--- OUTSIDE RECORDS SUMMARY | 2024-04-01 07:39 | XMS_ITS | Encounter Summary ---
Author Organization [facility] Address [address] [place] [address] Care Team Providers Care Acoustic Intelligence Specialist Name Role Phone Gabi Fagan MD Primary Care Pro vider Encounter Details Date Type Department Care Team ([facility] st Contact Info) Description 09/19/2020 Telephone [facility] Primary Care [address] [place] [address] Gabi Fagan MD [facility] 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 90 capsule 1 09/19/2020 11/29/2020 documented in this encounter Miscellaneous Notes * Telephone Encounter - Shant Wu MA - 09/19/2020 3:18 PM CDT Rx refill. documented in this encounter Plan of Treatment Not on file documented as of this encounter Visit Diagnoses Diagnosis Myalgia Unspecified myalgia and myositis documented in this encounter Discontinued Medications Medication Sig Discontinue Reason Start Date End Da te celecoxib (CeleBREX) 200 mg capsuleIndications:Myalgi a One tab po every day Reorder 02/26/2020 09/19/2020 documented as of this encounter Care Teams Acoustic Intelligence Specialist Relationship Specialty Start Date End Date Gabi Fagan MD PCP - General Family Medicine 07/30/20 01/09/21 documented as of this encounter
--- OUTSIDE RECORDS SUMMARY | 2024-04-01 07:39 | XMS_ITS | Encounter Summary ---
Author Organization [facility] Address [address] [place] [address] Care Team Providers Care Clicker Operator Name Role Phone Gabi Fagan MD Primary Care Pro vider Encounter Details Date Type Department Care Team (Latest Contact Info) Description 11/16/[address] 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
--- OUTSIDE RECORDS SUMMARY | 2024-04-01 07:39 | XMS_ITS | Encounter Summary ---
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 Gender Identity Female 06/01/2020 9:42 PM TIEING MACHINE OPERATOR Sexual Orientation Straight 06/01/2020 9: 42 PM TIEING MACHINE OPERATOR 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 Not on file Not on file documented as of this encounter Medications at Time of Discharge albuterol HFA (ProAir HFA) 90 mcg/actuation inhaler Inhale 2 puffs every 4 (four) hours as needed for wheezing 1 Inhaler 1 02/23/2020 cyclobenzaprine (FLEXERIL) 5 mg tabletIndications :Bilateral sciatica Take 1 tablet (5 mg total) by mouth 3 (three) times a day as needed for muscle spasms 90 tablet 1 08/27/2020 1 aspirin 81 mg tablet Take one by mouth one time per day 0 0 12/04/2008 4 atorvastatin (LIPITOR) 20 mg tablet Take 1 tablet (20 mg total) by mouth daily 90 tablet 06/18/2020 1 celecoxib (CeleBREX) 200 mg capsuleIndication s:Myalgia One tab po every day 90 capsule 02/26/[address] (CYMBALTA) 60 mg capsuleIndication s:Moderate episode of recurrent major depressive disorder (HCC) Take 1 capsule (60 mg total) by mouth daily 90 capsule 1 07/01/2020 2 lidocaine (LIDODERM) 5 %Indications:Bila teral sciatica Place 1 patch on the skin daily Apply to painful area 12 hours per day, remove for 12 hours. 90 patch 3 08/27/2020 1 magnesium oxide 400 mg magnesium capsule Take 400 mg by mouth daily 90 each 1 08/27/2020 1 ubidecarenone (coenzyme Q10) 100 mg tablet Take by mouth 11/22/19 2 1 warfarin (COUMADIN) 2 mg tabletIndications :H/O mechanical aortic valve replacement TAKE 2 TABLETS (4 MG TOTAL) BY MOUTH DAILY 60 tablet 08/14/2020 1 warfarin (COUMADIN) 2.5 mg tablet 07/23/2020 4 documented as of this encounter Plan of Treatment Not on file documented as of this encounter Visit Diagnoses Not on filedocumented in this encounter Care Teams School Director Relationship Specialty Start Date End Date Gabi Fagan MD PCP - General Family Medicine 07/30/20 01/09/21 documented as of this encounter
--- OUTSIDE RECORDS SUMMARY | 2024-04-01 07:39 | XMS_ITS | Encounter Summary ---
Author Organization [facility] Address [address] [place] [address] Care Team Providers Care Injection Wax Molder Name Role Phone Gabi Fagan MD Primary Care Pro vider Encounter Details Date Type Department Care Team (Latest Contact Info) Description 12/13/2020 Anticoagulation Visit [facility] Cardiology [address] [place] [address] Huma Trevizo RN H/O mechanical [...] on file Legal Sex Female 8:13 AM CDL DEDICATED TRUCK DRIVER Gender Identity Female 06/01/2020 9:42 PM CDL DEDICATED TRUCK DRIVER Sexual Orientation Straight 06/01/2020 9: 42 PM CDL DEDICATED TRUCK DRIVER 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
--- OUTSIDE RECORDS SUMMARY | 2024-04-01 07:39 | XMS_ITS | Encounter Summary ---
Author Organization [facility] Address [address] [place] [address] Care Team Providers Care Plant Maintenance Manager Name Role Phone Gabi Fagan MD Primary Care Pro vider Reason for Visit * Reason Comments Follow-up Pt in office for 4 w alutiiq follow up. 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; Bilateral sciatica Social History Tobacco Use Types [...] on file Legal Sex Female 8:13 AM CHANNEL SUPERVISOR Gender Identity Female 06/01/2020 9:42 PM CHANNEL SUPERVISOR Sexual Orientation Straight 06/01/2020 9: 42 PM CHANNEL SUPERVISOR 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 on file Not on file Not on file documented as of this encounter Last Filed Vital Signs Vital Sign Reading Time Taken Comments Blood Pressure 116/82 08/27/2020 2:46 PM CDT Pulse 99 08/27/2020 2:46 PM CDT Temperature 36.9 ??C (98.5 ??F) 08/27/2020 2:46 PM CD T Respiratory Rate 16 08/27/2020 2:46 PM CDT Oxygen Saturation 98% 08/27/2020 2:46 PM CDT Inhaled Oxygen Concentration - - Weight 65.3 kg (144 lb) 08/27/2020 2:46 PM CDT Height 157.5 cm (5' 2 ) 08/27/2020 2:46 PM CDT Body Mass Index 26.34 08/27/2020 2:46 PM CDT documented in this encounter Patient Instructions * Patient Instructions* Gabi Fagan MD - 08/27/2020 2:45 PM CDT Take one B-100 B-complex vitamin daily. The B vitamins are necessary for normal nerve function, andsupplementing is a good preventive measure. Do not take more than 200 mg of B-6, as higher daily doses can actually cause symptoms of neuropathy. Take 100 mg of alpha-lipoic acid daily. This antioxidant protects microcirculation to the nerves. You can gradually increase the dose to 300 mg twice a day over the next month. Find a supplement without colocynthis (side effects of kidney damage, paralysis and , banned by FDA) documented in this encounter Ordered Prescriptions Prescription Sig Dispense Quantity Refills Last Filled Start Date End Date magnesium oxide 400 mg magnesium capsule Take 400 mg by mouth daily 90 each 1 08/27/2020 lidocaine (LIDODERM) 5 %Indications:Bilat eral sciatica Place 1 patch on the skin daily Apply to painful area 12 hours per day, remove for 12 hours. 90 patch 3 08/27/2020 1 cyclobenzaprine (FLEXERIL) 5 mg tabletIndications: Bilateral sciatica Take 1 tablet (5 mg total) by mouth 3 (three) times a day as needed for muscle spasms 90 tablet 1 08/27/2020 1 documented in this encounter Progress Notes * Gabi Fagan MD - 08/27/2020 2:45 PM CDT Images from the original note were not included. 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 Other orders - magnesium oxide 400 mg magnesium capsule; Take 400 mg by mouth daily F/u 3 months for annual or sooner as needed if symptoms not improving or worsen. Strict return/ED precautions discussed. Subjective: Yessy Donaldson is a 65 y.o. female here for follow up sciatica HPI Chief Complaint Patient presents with ??? Follow-up Pt in office for 4 week follow up. R scitica: on cymbalta. Didn't take gabapentin, taking a supplement with capiscum annuum, colocynthis, gnaphalium, magnesia phosphorica which helps Arthralgias: negative QUINTON & RF, taking 200mg celebrex daily, knows risk of taking with warfarin Hyperlipidemia: on 20mg atorvastatin GERD: d/c prilosec as not helping asthma: albuterol as needed rarely Bicuspid aortic valve s/p mechanical valve replacement: on warfarin 4mg Review of Systems Constitutional: Negative for fever. HENT: Negative for sore throat. Respiratory: Negative for cough and shortness of breath. Gastrointestinal: Negative for diarrhea and vomiting. Musculoskeletal: Positive for arthralgias and myalgias. Objective: Vital signs were reviewed. Vitals: 08/27/20 1446 BP: 116/82 BP Location: Left arm Patient Position: Sitting Pulse: 99 Resp: 16 Temp: 36.9 ??C (98.5 ??F) TempSrc: Tympanic SpO2: 98% Weight: 65.3 kg (144 lb) Height: 157.5 cm (5' 2 ) [...] Plan Note - Gabi Fagan MD - 08/28/2020 12:47 PM CDTAssociated Problem(s): Bilateral sciatica Advise against colocynthis (banned by FDA) Can take B-100 B-complex vitamin daily & 100 mg of alpha-lipoic acid daily (can increase the dose to 300 mg twice a day over the next month) Will also start flexeril as needed and lidocaine patches * Assessment & Plan Note - Gabi Fagan MD - 08/28/2020 8:10 AM CDTAssociated Problem(s): H/O mechanical aortic valve replacement Lab Results Component Value Date INR 3.10 08/27/2020 INR 3.10 (A) 08/27/2020 INR 2.9 (H) 08/09/2020 At goal, continue current warfarin dosing Follows with cardiology documented in this encounter Plan of Treatment Not on file documented as of this encounter Procedures Procedure Name Priority Date/Time Associated Diagnosis Comments POCT INR Routine 08/27/2020 2:55 PM CDT 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 Results * POCT INR (08/27/2020 2:55 PM CDT) INR, POC 3.10 Blood specimen (specimen) (Blood, Venous) 08/27/2020 2:55 PM CDT Gabi Fagan MD POINT OF CARE GERALDO T ORDERABLES Final Result documented in this encounter Visit Diagnoses Diagnosis H/O mechanical aortic valve replacement- Primary intermediate current 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 therapy Bilateral sciatica Sciatica documented in this encounter Discontinued Medications Medication Sig Discontinue Reason Start Date End Da te adaxpdokh-mzpeuvb-ybizw acid 400-200-1 mg tablet Take by mouth Therapy completed 08/27/2020 omeprazole (PriLOSEC) 20 mg capsule Take 20 mg by mouth daily Therapy completed 08/27/2020 gabapentin (NEURONTIN) 300 mg capsuleIndications:Righ t sided sciatica Take 1 capsule (300 mg) by mouth at bedtime. Gradually increase to 3 times a day as tolerated. Therapy completed 07/30/2020 08/27/2020 amoxicillin (AMOXIL) 500 mg tablet/capsule Take 4 caps (2000 mg) 1 hour prior to procedure. Therapy completed 08/21/2020 08/27/2020 documented as of this encounter Historical Medications * This list may reflect changes made after this encounter. ubidecarenone (coenzyme Q10) 100 mg tablet Take by mouth 11/21/2020 added in this encounter Care Teams Plant Maintenance Manager Relationship Specialty Start Date End Date Gabi Fagan MD PCP - General Family Medicine 07/30/20 01/09/21 documented as of this encounter
--- OUTSIDE RECORDS SUMMARY | 2024-04-01 07:39 | XMS_ITS | Encounter Summary ---
Author Organization [facility] Address [address] [place] [address] Care Team Providers Care Refrigerated Company Driver Name Role Phone Gabi Fagan MD Primary Care Pro vider Reason for Referral * Cardiology (Routine) - Closed Specialty Diagnoses / Procedures Referred By Contac t Referred To Contact Diagnoses H/O mechanical aortic valve replacement Bicuspid aortic valve Procedures Transthoracic Echo Complete W Doppler/CF Bindu Santamaria MD Phone: tel: fax: [facility] Referral ID Status Reason Start Date Expiration Date Visits Re quested Visits Authorized [id number] Closed 12/10/2020 01/09/2022 1 1 Reason for Visit * Reason Comments Follow-up yearly follow up on bicuspid AV, h/o AVR, dyslipidemia Encounter Details Date Type Department Care Team (Latest Contact Info) Description 12/10/2020 1:00 PM CDT Office Visit [facility] Cardiology [address] [phone] Bindu Santamaria MD [address] [place] [address] H/O mechanical aortic valve replacement (Primary Dx); Bicuspid aortic valve; Chronic anticoagulation; Mixed hyperlipidemia Social History Tobacco Use Types Packs/Day Years [...] on file Legal Sex Female 8:13 AM PAPIER MACHE MOLDER Gender Identity Female 06/01/2020 9:42 PM PAPIER MACHE MOLDER Sexual Orientation Straight 06/01/2020 9: 42 PM PAPIER MACHE MOLDER 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 Not on file Not on file documented as of this encounter Last Filed Vital Signs Vital Sign Reading Time Taken Comments Blood Pressure 128/82 12/10/2020 1:00 PM CDT Pulse 83 12/10/2020 1:00 PM CDT Temperature - - Respiratory Rate - - Oxygen Saturation 98% 12/10/2020 1:00 PM CDT Inhaled Oxygen Concentration - - Weight 64.4 kg (142 lb) 12/10/2020 1:00 PM CDT Height 157.5 cm (5' 2 ) 12/10/2020 1:00 PM CDT Body Mass Index 25.97 12/10/2020 1:00 PM CDT documented in this encounter Patient Instructions * Patient Instructions* Bindu Santamaria MD - 12/10/2020 1:00 PM CDT Total cholesterol 168, HDL 53, TG 166, LDL 83, glucose 101 documented in this encounter Ordered Prescriptions Prescription Sig Dispense Quantity Refills Last Filled Start Date End Date celecoxib (CeleBREX) 200 mg capsule Take 1 capsule (200 mg total) by mouth 2 (two) times a day 60 capsule 12/10/2020 04/25/202 4 documented in this encounter Progress Notes * Bindu Santamaria MD - 12/10/2020 1:00 PM CDT [facility] DATE OF VISIT: 12/10/2020 DATE: 1955 CHIEF COMPLAINT Chief Complaint Patient presents with ??? 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 Guthrie in 2008. [...] NO CP, SOB, dizziness. 12/01/2019 ov with SPLICING SUPERVISOR Kameron Meng: Here for annual visit. Currently having problems with left-sided sciatica. She has also been dealing with a corneal abrasion. She has noticed swelling in her feet more recently. She seems to notice it in the morning, does not think it gets any worse during the day. Denies any new shortness of breath, orthopnea, PND or bloating 12/10/[address] Santamaria: No heart troubles, not much TRINH. No bleeding. Sciatica has been a problem this year, has LLE numbness, has lost bslance and fallen this year. Sees pain Management. Now takes Celebrex. Retired in January but went back to work part-time. Anticoagulation visits reviewed, INR was 3.5 on 11/15/2020, therapeutic. POC lipids as below. Echo reviewed. 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 Her son in mid-30's is also severely disabled, and moved into a fdc but it didn't work out and now is back home. Her mother, with whom she was not close, April 2012, and her uncle also around that same time. MEDICAL HISTORY Past Medical History: Diagnosis Date ??? Arthritis ??? Asthma Asthma ??? Cataract diagnosed 2019 ??? Depression supposedly; but feel it's a misdiagnosis. ??? Eczema eczema ??? GERD (gastroesophageal reflux disease) at least 10 years ??? Heart disease ??? HX OTHER MEDICAL diverticulosis ??? Mitral valve prolapse ??? Myalgia ??? Neuromuscular disorder (CMS/HCC) (HCC) Have had sciatica for 17 months. Social History Tobacco Use ??? Smoking status: Never Smoker ??? Smokeless tobacco: Never Used Substance Use Topics ??? Alcohol use: Yes Alcohol/week: 1.0 - 2.0 standard drink Types: 1 - 2 Glasses of wine per week Comment: socially ??? Drug use: Never Family History Problem Relation Age of Onset ??? Other Father [place] age 50, CABG; ??? Heart attack Father ??? Arthritis Father ??? Hearing loss Father ??? Other (brain tumor) Sister ??? Other Mother H/O CVA, 2012; ??? Stroke Mother ??? Vision loss Mother ??? Clotting disorder Mother ??? Other Sister MVP; ??? Cancer Sister ??? Arthritis Sister ??? Diabetes Sister ??? Arthritis Sister ??? defects Son ??? Developmental delay Son ??? Hyperlipidemia Son ??? Vision loss Son MEDICATIONS Current Outpatient Medications: ??? albuterol HFA (ProAir HFA) 90 mcg/actuation inhaler, Inhale 2 puffs every 4 (four) hours as needed for wheezing, Disp: 1 Inhaler, Rfl: 1 ??? aspirin 81 mg tablet, Take one by mouth one time per day, Disp: 0, Rfl: 0 ??? atorvastatin (LIPITOR) 20 mg tablet, TAKE 1 TABLET BY MOUTH EVERY DAY, Disp: 90 tablet, Rfl: 0 ??? DULoxetine DR (CYMBALTA) 60 mg capsule, Take 1 capsule (60 mg total) by mouth daily, Disp: 90 capsule, Rfl: 1 ??? warfarin (COUMADIN) 2 mg tablet, TAKE 2 TABLETS BY MOUTH EVERY DAY, Disp: 60 tablet, Rfl: 0 ??? celecoxib (CeleBREX) 200 mg capsule, Take 1 capsule (200 mg total) by mouth 2 (two) times a day, Disp: 60 capsule, Rfl: 0 ALLERGIES No Known Allergies REVIEW OF SYSTEMS Review of Systems Constitutional: [...] Negative for depression. PHYSICAL EXAM Blood pressure 128/82, pulse 83, height 157.5 cm (5' 2 ), weight 64.4 kg (142 lb), SpO2 98 %. Body mass index is 25.97 kg/m??. Physical Exam Constitutional: Appearance: She is well-developed. Comments: Bruise rigth forehead, left thigh and elbow, small ones on right thigh Neck: Thyroid: No thyromegaly. Cardiovascular: Rate and Rhythm: Normal rate and regular rhythm. Pulses: Carotid pulses are 2+ on the right side and 2+ on the left side. Heart sounds: Murmur (1/6 PETE LUSB) heard. Pulmonary: Effort: Pulmonary effort is normal. No respiratory distress. Breath sounds: Normal breath sounds. Abdominal: General: There is no distension. Palpations: Abdomen is soft. Skin: General: Skin is warm and dry. Neurological: Mental Status: She is alert and oriented to person, place, and time. Psychiatric: Mood and Affect: Mood normal. Behavior: Behavior normal. LABS AND OTHER DIAGNOSTIC TESTS No results found for: WBC, HGB, HCT, MCV, PLT Chemistry Component Value Date/Time SODIUM 145 07/31/2020 [...] 08/31/2012 Lab Results Component Value Date INR 3.5 (H) 11/15/2020 INR 2.5 (H) 10/18/2020 INR 3.0 (H) 09/20/202008/2015 cholesterol 221, LDL 146, creatinine 0.7, potassium normal, hematocrit 39 10/2016 POC lipids: TC 230, TG 179, LDL 128, HDL 67 10/2017 POC lipids: TC 243, TG 103, LDL 161, HDL 61 12/10/2020 POC lipids: Total cholesterol 168, HDL 53, TG 166, LDL 83, glucose 101 on atorvastatin 20 mg daily. Echos: 2008: EF 71%, LVH, diast. dysfxn, LYNSEY 0.5-0.6 cm2, mild AI peak grad 63, mean grad 37 mmHg --> Aortic valve replacement, 19 mm [place] valve 2008: EF 63%, LYNSEY 1.0-1.1 cm2, [...] cm2, mean grad 10 mmHg, mild AI. ASSESSMENT Diagnoses and all orders for this visit: H/O mechanical aortic valve replacement (Primary) - Transthoracic Echo Complete W Doppler/CF; Future Bicuspid aortic valve - Transthoracic Echo Complete W Doppler/CF; Future Chronic anticoagulation Mixed hyperlipidemia Other orders - celecoxib (CeleBREX) 200 mg capsule; Take 1 capsule (200 mg total) by mouth 2 (two) times a day Assessment: Patient is doing well 12 years after her mechanical mitral valve replacement for severeAS and a bicuspid aortic valve. Has not had any involvement of her ascending aorta. Compliant with INR follow-up; last INR was 3.5, warfarin adjusted. No bleeding problems but does seem to have excessive bruising. Compliant with SBE prophylaxis. Has high cholesterol, much improved on atorvastatin blood pressure is doing fine, no hypertension Does have a family history of CAD but no signs or symptoms of CAD herself. Main problem is her sciatica and chronic pain. PLAN/RECOMMENDATIONS Echocardiogram EKG today shows NSR rate 76, sinus arrhythmia versus APCs, basically normal EKG with normal intervals. Cautioned about GI bleeding when combining warfarin plus aspirin plus Celebrex, call if problems. Follow-up in 1 year, sooner if needed Bindu Santamaria MD, [facility] Office: [phone] or [phone] This note is dictated and transcribed by with assistance from [employer].?? Hook And Eye Sewing Machine Operator variances may occur. Despite proofreading, typographical errors may occur. documented in this encounter Miscellaneous Notes * Addendum Note - Meghna Stone MA - 12/10/2020 1:00 PM CDTAddended by: MEGHNA STONE on: 12/10/2020 03:59 PM Modules accepted: Orders * Addendum Note - Meghna Stone MA - 12/10/2020 1:00 PM CDTAddended by: MEGHNA STONE on: 12/11/2020 10:19 AM Modules accepted: Orders documented in this encounter Plan of Treatment Not on file documented as of this encounter Procedures Procedure Name Priority Date/Time Associated Diagnosis Comments POCT LIPID PANEL Routine 12/10/2020 3:58 PM CDT Mixed hyperlipidemia ECG 12-LEAD Routine 12/10/2020 Bicuspid aortic valve documented in this encounter Results * TRANSTHORACIC ECHO (TTE) COMPLETE W DOPPLER/CF WO CONTRAST (01/10/2021 1:46 PM CDT) Anatomical Region Laterality Modality Ultrasound 01/10/2021 12:5 0 PM CDT Narrative 01/10/2021 4:20 PM CDT [facility] Cardiology [address], [place] [address] [address], [place] [address] P:[phone] P:[phone] Echocardiographic Report Patient Name: YESSY NIXON : 1955 Study Date: 01/10/2021 12:50:31 PM Gender: F Tech: Location: [place] Ref.Provider: BINDU SANTAMARIA Height(Cm): 155 BSA: 1.64 Weight(Kg): 64.86 Heart Rate: 87 BP: 112/96 Quality: Good Order Provider: BINDU SANTAMARIA Procedures: Echocardiographic Report: Transthoracic echocardiogram with [...] Findings: Interpretation Site: Exam was interpreted at [facility]. Left Ventricle: Normal left ventricular size. Mild [...] unchanged. Electronically Signed By: Dat Chauhan MD, [facility] 2021-01-10 16:20:25 CDT Procedure Note Dat Chauhan MD - 01/10/2021 [facility] Cardiology [address] [address] [address] [address], [place] [address] P:[phone] P:[phone] Echocardiographic Report Patient Name: YESSY NIXONPatient ID: [id number] : [id number] Date: 01/10/2021 12:50:31 PM Gender: FAccession #: [id number] Tech: GMLocation: [place] Ref.Provider: BINDU SANTAMARIAHeight(Cm): 155 BSA: 1.64Weight(Kg): 64.86 Heart Rate: 87BP: 112/96 Quality: GoodOrder Provider: BINDU SANTAMARIA Procedures: Echocardiographic Report: Transthoracic echocardiogram with [...] 0.40 - 0.80 ] m/s MV Decel [id number] [ 150 - 200 ] msec PV Peak Vel0.99 [ 0.40 - 0.80 ] m/s TR Peak Vel2.54 [ 0.40 - 0.80 ] m/s TR Peak PG 26mmHg RVSP34.00 mmHg E'0.10 E/E' 7 Findings: Interpretation Site: Exam was interpreted at [facility]. Left Ventricle: Normal left ventricular size. Mild [...] unchanged. Electronically Signed By: Dat Chauhan MD, [facility] 2021-01-10 16:20:25 CDT us Bindu Santamaria MD CV ECHO PROCEDURES Final Re sult * POCT lipid panel (12/10/2020 3:58 PM CDT) Cholesterol, POC 168 mg/dL HDL, POC 53 mg/dL Triglycerides, POC 166 mg/dL LDL Cholesterol POC 83 mg/dL Chol/HDL Ratio, POC 3.2 Non-HDL Cholesterol, POC 116 mg/dL Cholesterol Total, POC 168 mg/dL Capillary blood 12/10/2020 3 :58 PM CDT Result Alexi Santamaria MD POINT OF CARE TEST ORDERABL ES Final Result * ECG 12 lead (12/10/2020) us Bindu Santamaria MD ECG ORDERABLES Final Resul t documented in this encounter Visit Diagnoses Diagnosis H/O mechanical aortic valve replacement- Primary Bicuspid aortic valve Congenital insufficiency of aortic valve Chronic anticoagulation Encounter for long-term (current) 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s Mixed hyperlipidemia H/O mechanical aortic valve replacement Bicuspid aortic valve Congenital insufficiency of aortic valve documented in this encounter Care Teams Refrigerated Company Driver Relationship Specialty Start Date End Date Gabi Fagan MD PCP - General Family Medicine 07/30/20 01/09/21 documented as of this encounter
--- OUTSIDE RECORDS SUMMARY | 2024-04-01 07:40 | XMS_ITS | Encounter Summary ---
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 Social [...] on file Legal Sex Female 8:13 AM AUDIOVISUAL AIDS TECHNICIAN Gender Identity Female 06/01/2020 9:42 PM AUDIOVISUAL AIDS TECHNICIAN Sexual Orientation Straight 06/01/2020 9: 42 PM AUDIOVISUAL AIDS TECHNICIAN 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
--- OUTSIDE RECORDS SUMMARY | 2024-04-01 07:40 | XMS_ITS | Encounter Summary ---
Author Organization [facility] Address [address] [place] [address] Care Team Providers Care Turbine Measurements Engineer Name Role Phone Gabi Fagan MD Primary Care Pro vider Encounter Details Date Type Department Care Team (Late st Contact Info) Description 08/21/[address] 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 4 tablet/capsule 08/21/2020 08/27/2020 documented in this encounter Miscellaneous Notes * Telephone Encounter - Penny Wilks RN - 08/21/2020 1:15 PM CDT rx sent in as requested. ----- Message from Yessy Donaldson sent at 08/21/2020 12:28 PM CDT ----- Regarding: Prescription Question Contact: I just changed dentists and also have a new primary Dr. I have an appt on August 27 for a cleaning. Because of my artificial heart valve, I've continued taking Amoxicillin when I have a cleaning. My former dentist used to give my an Rx for it, but the new one wants the primary to do it. I noticed at my first visit, Dr. Fagan had the amoxicillin stopped. Just wondering who I should contact for it when needed; her office or yours. Thanks, Emani Donaldson documented in this encounter Plan of Treatment Not on file documented as of this encounter Visit Diagnoses Not on filedocumented in this encounter Care Teams Turbine Measurements Engineer Relationship Specialty Start Date End Date Gabi Fagan MD PCP - General Family Medicine 07/30/20 01/09/21 documented as of this encounter
--- OUTSIDE RECORDS SUMMARY | 2024-04-01 07:40 | XMS_ITS | Encounter Summary ---
Author Organization [facility] Address [address] [place] [address] Care Team Providers Care Javascript Application Developer Name Role Phone Gabi Fagan MD Primary Care Pro vider Encounter Details Date Type Department Care Team (Latest Contact Info) Description 08/10/2020 Anticoagulation Visit [facility] Cardiology [address] [place] [address] Huma Trevizo RN H/O mechanical aortic valve replacement; termination clerk current 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 therapy Social History [...] on file Legal Sex Female 8:13 AM VAULT PERSON Gender Identity Female 06/01/2020 9:42 PM VAULT PERSON Sexual Orientation Straight 06/01/2020 9: 42 PM VAULT PERSON 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
--- OUTSIDE RECORDS SUMMARY | 2024-04-01 07:40 | XMS_ITS | Encounter Summary ---
Author Organization [facility] Address [address] [place] [address] Care Team Providers Care Mud Tank Operator Name Role Phone Gabi Fagan MD Primary Care Pro vider Reason for Visit * Reason Comments Establish Care Pt in the office sta yi she thinks she has sciatica. Also c/o swelling bilateral feet. 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 therapy; Hypercholesteremia Social History Tobacco Use Types Packs/Day Years [...] on file Legal Sex Female 8:13 AM FACILITY MECHANIC Gender Identity Female 06/01/2020 9:42 PM FACILITY MECHANIC Sexual Orientation Straight 06/01/2020 9: 42 PM FACILITY MECHANIC 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 on file Not on file Not on file documented as of this encounter Last Filed Vital Signs Vital Sign Reading Time Taken Comments Blood Pressure 122/76 07/30/2020 8:48 AM CDT Pulse 92 07/30/2020 8:48 AM CDT Temperature 37.1 ??C (98.7 ??F) 07/30/2020 8:48 AM CD T Respiratory Rate 16 07/30/2020 8:48 AM CDT Oxygen Saturation 95% 07/30/2020 8:48 AM CDT Inhaled Oxygen Concentration - - Weight 64.9 kg (143 lb) 07/30/2020 8:48 AM CDT Height 157.5 cm (5' 2 ) 07/30/2020 8:48 AM CDT Body Mass Index 26.16 07/30/2020 8:48 AM CDT documented in this encounter Ordered Prescriptions Prescription Sig Dispense Quantity Refills Last Filled Start Date End Date gabapentin (NEURONTIN) 300 mg capsuleIndications :Right sided sciatica Take 1 capsule (300 mg) by mouth at bedtime. Gradually increase to 3 times a day as tolerated. 90 capsule 1 07/30/2020 documented in this encounter Progress Notes * Gabi Fagan MD - 07/30/2020 8:30 AM CDT Images from the original note were not included. Assessment/Plan: Assessment/Plan Diagnoses and all orders for this visit: Right sided sciatica (Primary) Assessment & Plan: Uncontrolled Start gabapentin Orders: - gabapentin (NEURONTIN) 300 mg capsule; Take 1 capsule (300 mg) by mouth at bedtime. Gradually increase to 3 times a day as tolerated. Peripheral edema Comments: Recent ECHO Check CMP & UA to evaluate for kidney/liver etiology Likely 2/2 venous insufficiency, advise low salt, calf exercises, compression stockings Orders: - Comprehensive metabolic panel; Future - Urinalysis reflex to microscopic and culture Urine; Future H/O mechanical aortic valve replacement Assessment & Plan: Follows with cardiology Continue warfarin group home current 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 therapy Assessment & Plan: On warfarin 4mg daily Checking INR tomorrow Hypercholesteremia Assessment & Plan: Continue 20mg atrovastatin F/u 1 month or sooner as needed if symptoms not improving or worsen. Strict return/ED precautions discussed. Subjective: Yessy Donaldson is a 64 y.o. female here for sciatica HPI Chief Complaint Patient presents with ??? Establish Care Pt in the office states she thinks she has sciatica. Also c/o swelling bilateral feet. started July of 2019, without improvement Previously seen at [facility], had injection in SI joint which helped. Had velasquez's cyst removal which flared pain again in February Pain in lower left>R and radiating down Intermittent numbness on L side. Has done PHYSICAL THERAPY before without improvement, also tried chiropractic & massage Told muscle tight, has been stretching Has had XR & MRI on 60mg cymbalta, notes has been told has depression, but thinks symptoms mostly 2/2 menopause and frustration 2/2 pain Arthralgias: negative QUINTON & RF, taking 200mg celebrex daily, per previous notes knows risk of taking with warfarin Hyperlipidemia: on 20mg atorvastatin GERD: on 20mg omeprazole asthma: albuterol as needed rarely Bicuspid aortic valve s/p mechanical valve replacement: on warfarin 4mg Tinnitus/hearing loss Cataracts Review of Systems Constitutional: Negative for fever. HENT: Negative for sore throat. Respiratory: Negative for cough and shortness of breath. Cardiovascular: Positive for leg swelling. Negative for chest pain. Gastrointestinal: Negative for diarrhea and vomiting. No bowel incontinence Genitourinary: No bladder incontinence Musculoskeletal: Positive for back pain. Negative for myalgias. Skin: Negative for rash. Allergic/Immunologic: Negative for immunocompromised state. Neurological: Positive for numbness (intermittent). Negative for weakness. Objective: Vital signs were reviewed. Vitals: 07/30/20 0848 BP: 122/76 BP Location: Right arm Patient Position: Sitting Pulse: 92 Resp: 16 Temp: 37.1 ??C (98.7 ??F) TempSrc: Tympanic SpO2: 95% Weight: 64.9 kg (143 lb) Height: 157.5 cm (5' 2 ) Physical Exam Gen: NAD, comfortable, appears as stated age Eyes: no conjunctival injection, EOMI ENMT: external ears symmetric CV: Regular rate and rhythm Pulm: no increased work of breathing, clear to asculation bilaterally, no wheezing, rhonchi or rales Skin: no rashes or nodules, warm and dry MSK/Neuro: symmetric limb movement, no midline TTP, strength 5/5, sensation intact, negative straight leg test bilaterally Psych: alert and oriented to person/place/time, appropriate judgment and insight Gabi Fagan MD documented in this encounter Miscellaneous Notes * Assessment & Plan Note - Gabi Fagan MD - 07/30/2020 9:18 AM CDTAssociated Problem(s): H/O mechanical aortic valve replacement Follows with cardiology Continue warfarin * Assessment & Plan Note - Gabi Fagan MD - 07/30/2020 9:18 AM CDTAssociated Problem(s): Hypercholesteremia (Resolved 12/10/2020) Continue 20mg atrovastatin * Assessment & Plan Note - Gabi Fagan MD - 07/30/2020 9:18 AM CDTAssociated Problem(s): Chronic anticoagulation On warfarin 4mg daily Checking INR tomorrow * Assessment & Plan Note - Gabi Fagan MD - 07/30/2020 9:12 AM CDTAssociated Problem(s): Bilateral sciatica Uncontrolled Start gabapentin documented in this encounter Plan of Treatment Not on file documented as of this encounter Procedures Procedure Name Priority Date/Time Associated Diagnosis Comments URINALYSIS AND REFLEX TO MICROSCOPIC AND CULTURE Routine 07/31/2020 6:49 AM CDT Peripheral edema COMPREHENSIVE METABOLIC PANEL Routine 07/31/2020 6:49 AM CDT Peripheral edema documented in this encounter Results * (ABNORMAL) Urinalysis reflex to microscopic and culture Urine (07/31/2020 6:49 AM CDT) Color, ur YELLOW YELLOW [facility] Appearance, ur CLEAR CLEAR [facility] Specific gravity 1.021 1.001 - 1.035 [facility] pH, ur 6.5 5.0 - 8.0 [facility] Glucose, ur NEGATIVE NEGATIVE [facility] Bilirubin, ur NEGATIVE NEGATIVE [facility] Ketones, ur NEGATIVE NEGATIVE [facility] Blood, ur 2+(A) NEGATIVE [facility] Protein, ur, quant NEGATIVE NEGATIVE [facility] Nitrites, ur NEGATIVE NEGATIVE [facility] Leukocyte esterase, ur NEGATIVE NEGATIVE [facility] WBC, ur NONE SEEN < OR = 5 /HPF [facility] RBC, ur 0-2 < OR = 2 /HPF [facility] Epithelial cells, squamous, ur NONE SEEN < OR = 5 /HPF [facility] Bacteria, ur, quant NONE SEEN NONE SEEN /HPF [facility] Hyaline cast NONE SEEN NONE SEEN /LPF [facility] Urine culture [facility] Comment:NO CULTURE INDICATED Urine 07/31/2020 6:49 AM CDT 07/31/2020 6:51 AM CDT us Gabi Fagan MD LAB MICROBIOLOGY - GENERAL ORDERABLES Final Result [facility] [id number] [id number] * (ABNORMAL) Comprehensive metabolic panel (07/31/2020 6:49 AM CDT) Glucose 111(H) 65 - 99 mg/dL [facility] Comment: ? Fasting reference interval For someone without known diabetes, a glucose value between 100 and 125 mg/dL is consistent with prediabetes and should be confirmed with a follow-up test. BUN 33(H) 7 - 25 mg/dL [facility] Creatinine 0.56 0.50 - 0.99 mg/dL [facility] Comment: For patients >49 years of age, the reference limit for Creatinine is approximately 13% higher for people identified as -Congolese. eGFR NON-AFR. LUXEMBOURGER 100 > OR = 60 mL/min/1.7 3m2 [facility] EGFR 116 > OR = 60 mL/min/1.7 3m2 [facility] BUN/creat ratio 59(H) 6 - 22 (calc) [facility] Sodium 145 135 - 146 mmol/L [facility] Potassium, pl 4.5 3.5 - 5.3 mmol/L [facility] Chloride 108 98 - 110 mmol/L [facility] CO2 28 20 - 32 mmol/L [facility] Calcium 8.8 8.6 - 10.4 mg/dL [facility] Protein, sr 6.2 6.1 - 8.1 g/dL [facility] Albumin 3.9 3.6 - 5.1 g/dL [facility] GLOBULIN 2.3 1.9 - 3.7 g/dL (calc) [facility] Alb/glob ratio 1.7 1.0 - 2.5 (calc) [facility] Bilirubin, total 0.5 0.2 - 1.2 mg/dL [facility] Alk phos 92 37 - 153 U/L [facility] AST 40(H) 10 - 35 U/L [facility] ALT (SGPT) 26 6 - 29 U/L [facility] Blood specimen (specimen) 07/31/2020 6:49 AM CDT 07/31/2020 6:51 AM CDT Gabi Fagan MD LAB BLOOD ORDERAB LES Final Result [facility] [id number] [phone] documented in this encounter Visit Diagnoses Diagnosis Right sided sciatica- Primary Sciatica Peripheral edema Edema H/O mechanical aortic valve replacement 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 Therapy completed 02/24/2020 07/30/2020 famotidine (PEPCID) 20 mg tablet take 1 tablet by ORAL route every day Alternate therapy 08/17/2013 07/30/2020 warfarin (COUMADIN) 5 mg tablet TAKE 1 TABLET BY MOUTH EVERY DAY Alternate therapy 02/14/2020 07/30/2020 documented as of this encounter Historical Medications * This list may reflect changes made after this encounter. omeprazole (PriLOSEC) 20 mg capsule Take 20 mg by mouth daily 08/27/2020 added in this encounter Care Teams Mud Tank Operator Relationship Specialty Start Date End Date Gabi Fagan MD PCP - General Family Medicine 07/30/20 01/09/21 documented as of this encounter
--- OUTSIDE RECORDS SUMMARY | 2024-04-01 07:41 | XMS_ITS | Encounter Summary ---
Author Organization [facility] Medical Group Address [address] [place] [address] Care Team Providers Care Licensed Bondsman Name Role Phone Helena Yu Primary Care Provider [phone] Reason for Visit * Reason Comments Arthritis Encounter Details Date Type Department Care Team (Late st Contact Info) Description 06/12/2020 9:00 AM MENTAL HEALTH PRACTITIONER Office Visit [facility] Medical [facility] Family Medicine [address] [place] [address] Helena Yu PA [address] [place] [address] Arthralgia, unspecified joint (Primary Dx); Muscle pain; Moderate episode of recurrent major depressive disorder (CMS/HCC); Hypercholesteremia; BMI 26.0-26.9,adult Social History Tobacco Use Types Packs/Day Years [...] Legal Sex Female 8:13 AM MENTAL HEALTH PRACTITIONER Gender Identity Female 06/01/2020 9:42 PM MENTAL HEALTH PRACTITIONER Sexual Orientation Straight 06/01/2020 9: 42 PM MENTAL HEALTH PRACTITIONER Occupation Industry Job Start Date Job End Date [employer] Not on file Not on file Not on file documented as of this encounter Last Filed Vital Signs Vital Sign Reading Time Taken Comments Blood Pressure 120/80 06/12/2020 9:10 AM MENTAL HEALTH PRACTITIONER Pulse 85 06/12/2020 9:10 AM MENTAL HEALTH PRACTITIONER Temperature 36 ??C (96.8 ??F) 06/12/2020 9:10 AM MENTAL HEALTH PRACTITIONER Respiratory Rate - - Oxygen Saturation 99% 06/12/2020 9:10 AM MENTAL HEALTH PRACTITIONER Inhaled Oxygen Concentration - - Weight 64.9 kg (143 lb 1.6 oz) 06/12/2020 9:10 A M MENTAL HEALTH PRACTITIONER Height 157.5 cm (5' 2 ) 06/12/2020 9:10 AM MENTAL HEALTH PRACTITIONER Body Mass Index 26.17 06/12/2020 9:10 AM MENTAL HEALTH PRACTITIONER documented in this encounter Ordered Prescriptions Prescription Sig Dispense Quantity Refills Last Filled Start Date End Date DULoxetine DR (CYMBALTA) 60 mg capsuleIndications :Moderate episode of recurrent major depressive disorder (HCC) Take 1 capsule (60 mg total) by mouth daily 90 capsule 1 07/01/[address] (CYMBALTA) 60 mg capsuleIndications :Moderate episode of recurrent major depressive disorder (HCC) Take 1 capsule (60 mg total) by mouth daily 90 capsule 1 06/12/2020 1 documented in this encounter Progress Notes * Helena Yu PA - 06/12/2020 9:00 AM CST Images from the original note were not included. Subjective/Objective Patient ID: Yessy Donaldson is a 64 y.o. female. Chief Complaint Arthritis HPI Patient presents to followup chronic concerns. Pain in her neck and back and into her arms, around rib, thighs and glut. She states she has OA, doesn't have knowledge of RA Went to [facility] for pain Has had therapy and knee injections. Has done massage with improvement but short lived as only goes q 2 months or so. Cardio - [facility] They manage her INR for mechanical heart valave. Depression -- Cymbalta HLD -- on statin FLU - declined Mammogram 02/2020 cologuard - 11/2018 Tdap - UTD Review of Systems Constitutional: Negative for fever. HENT: Negative for congestion. Respiratory: Negative for shortness of breath. Cardiovascular: Negative for chest pain. Gastrointestinal: Negative for constipation and diarrhea. Vitals: 06/12/20 0910 BP: 120/80 BP Location: Left arm Patient Position: Sitting Pulse: 85 Temp: 36 ??C (96.8 ??F) TempSrc: Temporal SpO2: 99% Weight: 64.9 kg (143 lb 1.6 oz) Height: 157.5 cm (5' 2 ) Physical Exam Vitals and nursing note reviewed. Constitutional: Appearance: She is well-developed. HENT: Head: Normocephalic and atraumatic. Eyes: Comments: Pupils are equal Cardiovascular: Rate and Rhythm: Normal rate and regular rhythm. Heart sounds: No murmur. Pulmonary: Effort: Pulmonary effort is normal. Breath sounds: Normal breath sounds. Abdominal: Palpations: Abdomen is soft. Tenderness: There is no abdominal tenderness. Skin: General: Skin is warm and dry. Findings: No rash. Neurological: Mental Status: She is alert and oriented to person, place, and time. Assessment/Plan Diagnoses and all orders for this visit: Arthralgia, unspecified joint (M25.50) (Primary) Assessment & Plan: Check labs. Suspect more OA than RA. Discussed NSAIDs while on Coumadin and the risk. She states she has tried to stop and is unable due to the pain. She accepts the risk and wants to continue. May add tylenol arthritis as needed. Orders: - QUINTON reflex to quantitative; Future - Rheumatoid factor; Future Muscle pain (M79.10) Assessment & Plan: Check CK as on statin and worried it is causing her pain. Orders: - Creatine kinase (CK), total; Future Moderate episode of recurrent major depressive disorder (CMS/HCC) (F33.1) Assessment & Plan: Continue the cymbalta Orders: - DULoxetine DR (CYMBALTA) 60 mg capsule; Take 1 capsule (60 mg total) by mouth daily Hypercholesteremia (E78.00) Assessment & Plan: Continue statin BMI 26.0-26.9,adult (Z68.26) Assessment & Plan: Weight/BMI is in healthy range. Continue healthy lifestyle to maintain. Helean Yu PA-C Cosigned by Sherif Pagan MD at 07/01/2020 9:39 PM CDT documented in this encounter Miscellaneous Notes * Assessment & Plan Note - Helena Yu PA - 07/01/2020 7:26 PM CDT Associated Problem(s): Hypercholesteremia (Resolved 12/10/2020) Continue statin * Assessment & Plan Note - Helena Yu PA - 07/01/2020 7:26 PM CDT Associated Problem(s): Moderate episode of recurrent major depressive disorder (HCC) Continue the cymbalta * Assessment & Plan Note - Helena Yu PA - 07/01/2020 7:25 PM CDT Associated Problem(s): Muscle pain (Deleted) Check CK as on statin and worried it is causing her pain. * Assessment & Plan Note - Helena Yu PA - 07/01/2020 7:24 PM CDT Associated Problem(s): Arthralgia Check labs. Suspect more OA than RA. Discussed NSAIDs while on Coumadin and the risk. She states she has tried to stop and is unable due to the pain. She accepts the risk and wants to continue. May add tylenol arthritis as needed. * Result Encounter Note - Helena Yu PA - 06/13/2020 3:33 PM MENTAL HEALTH PRACTITIONER Hi Emani Your Rheumatoid factor and QUINTON are negative. This means that the likelyhood of your joint pain being an autoimmune condition are much lower. CK was normal -- so you muscle pain doesn't show inflammation that we might see with a statin. Take the CoQ10 as we discussed and we will monitor. Feel free to contact the office thru My Chart or by phone if you have any other questions or concerns. PETAR Souza-C AL HEALTH PRACTITIONER * Assessment & Plan Note - Sindi Bagley MA - 06/12/2020 9:13 AM MENTAL HEALTH PRACTITIONER Associated Problem(s): BMI 26.0-26.9,adult Weight/BMI is in healthy range. Continue healthy lifestyle to maintain. AL HEALTH PRACTITIONER documented in this encounter Plan of Treatment Not on file documented as of this encounter Procedures Procedure Name Priority Date/Time Associated Diagnosis Comments QUINTON REFLEX TO QUANTITATIVE Routine 06/12/2020 11:05 AM MENTAL HEALTH PRACTITIONER Arthralgia, unspecified joint RHEUMATOID FACTOR Routine 06/12/2020 11: 05 AM MENTAL HEALTH PRACTITIONER Arthralgia, unspecified joint CREATINE KINASE (CK), TOTAL Routine 06/12/2020 11:05 AM MENTAL HEALTH PRACTITIONER Muscle pain documented in this encounter Results * Creatine kinase (CK), total (06/12/2020 11:05 AM MENTAL HEALTH PRACTITIONER) CK 123 29 - 143 U/L [facility] Blood specimen (specimen) 06/12/2020 11:05 AM MENTAL HEALTH PRACTITIONER 06/12/2020 11:06 AM MENTAL HEALTH PRACTITIONER Result [facility] Helena DAVEY LAB BLOOD ORDERABLES Final Result Performing Organization Address [facility] Co de Phone Number [facility] [address] [place] [address] * Rheumatoid factor (06/12/2020 11:05 AM MENTAL HEALTH PRACTITIONER) Rheumatoid factor, quant <14 <14 IU/mL [facility] Blood specimen (specimen) 06/12/2020 11:05 AM MENTAL HEALTH PRACTITIONER 06/12/2020 11:06 AM MENTAL HEALTH PRACTITIONER Result [facility] Helena DAVEY LAB BLOOD ORDERABLES Final Result Performing Organization Address [facility] Phone Number [facility] [address] [place] [address] * QUINTON reflex to quantitative (06/12/2020 11:05 AM MENTAL HEALTH PRACTITIONER) Pathologist [facility] QUINTON, qual NEGATIVE NEGATIVE [facility] Comment: QUINTON IFA is a first line screen for detecting the presence of up to approximately 150 autoantibodies in various autoimmune diseases. A negative QUINTON IFA result suggests an QUINTON-associated autoimmune disease is not present at this time, but is not definitive. If there is high clinical suspicion for Sjogren's syndrome, testing for anti-SS-A/Ro antibody should be considered. Anti-Jasmin-1 antibody should be considered for clinically suspected inflammatory myopathies. AC-0: Negative International Consensus on QUINTON Patterns (https://doi.org/10.1515/ywhz-3175-4122) For additional information, please refer to http://education.AroundWire/faq/EHE806 (This link is being provided for informational/ educational purposes only.) ?? Blood specimen (specimen) 06/12/2020 11:05 AM MENTAL HEALTH PRACTITIONER 06/12/2020 11:06 AM MENTAL HEALTH PRACTITIONER Result [facility] Helena DAVEY LAB BLOOD ORDERABLES Final Result [facility] [address] [place] [id number] documented in this encounter Visit Diagnoses Diagnosis Arthralgia, unspecified joint- Primary Muscle pain Unspecified myalgia and myositis Moderate episode of recurrent major depressive disorder (HCC) Hypercholesteremia Pure hypercholesterolemia BMI 26.0-26.9,adult documented in this encounter Discontinued Medications Medication Sig Discontinue Reason Start Date End Da te DULoxetine DR (CYMBALTA) 60 mg capsuleIndications:Moder ate episode of recurrent major depressive disorder (HCC) Take 1 capsule (60 mg total) by mouth daily Reorder 01/31/2020 06/12/[address] (CYMBALTA) 60 mg capsuleIndications:Moder ate episode of recurrent major depressive disorder (HCC) Take 1 capsule (60 mg total) by mouth daily Reorder 06/12/2020 07/01/2020 documented as of this encounter Care Teams Licensed Bondsman Relationship Specialty Start Date End Date Helena Yu PA [address] [address] PCP - General Internal Medicine 09/23/18 07/29/20 documented as of this encounter
--- OUTSIDE RECORDS SUMMARY | 2024-04-01 07:41 | XMS_ITS | Encounter Summary ---
Author Organization [facility] Address [address] [place] [address] Care Team Providers Care Forest And Conservation Worker Name Role Phone Helena Yu Primary Care Provider [phone]- [phone] Encounter Details Date Type Department Care Team (Latest Contact Info) Description 06/05/2020 Anticoagulation Visit [facility] Medical Group Cardiology [address] [place] [address] Huma Trevizo RN H/O mechanical aortic valve replacement; ad terminal makeup operator current 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 therapy Social History Tobacco Use Types Packs/Day Years Used Date Smoking Tobacco: Never Smokeless Tobacco: Never Alcohol Use Standard Drinks/Week Comments Yes 1 (1 standard drink = 0.6 oz pur e alcohol) socially PHQ-2 Answer Date Recorded PHQ-2 Total Score (If total score is 3 or more points, staff should administer the PHQ-9) 6 12/12/2019 Comments Unknown Sex and Gender Information Value Date Recorded Sex Assigned at Not on file Legal Sex Female 8:13 AM CORPORATE ASSOCIATE Gender Identity Female 06/01/2020 9:42 PM CORPORATE ASSOCIATE Sexual Orientation Straight 06/01/2020 9: 42 PM CORPORATE ASSOCIATE 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
--- OUTSIDE RECORDS SUMMARY | 2024-04-01 07:41 | XMS_ITS | Encounter Summary ---
Author Organization [facility] Medical [facility] Address [address] [place] [address] Care Team Providers Care Sap Ariba Consultant Name Role Phone Helena Yu Primary Care Provider +1- [phone] Encounter Details Date Type Department Care Team (Late st Contact Info) Description 07/18/2020 Telephone [facility] Medical Group Cardiology [address] [place] [address] Bindu Gaines MD [address] [place] [address] Social History Tobacco Use Types [...] on file Legal Sex Female 8:13 AM SUGAR PLANTATION MANAGER Gender Identity Female 06/01/2020 9:42 PM SUGAR PLANTATION MANAGER Sexual Orientation Straight 06/01/2020 9: 42 PM SUGAR PLANTATION MANAGER 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 My next protime is scheduled to be done on July, I use [facility] in [place]. Thanks, Emani Donaldson Order for standing INR sent to [facility]. documented in this encounter Plan of Treatment Scheduled Orders Name Type Priority Associated Diagnoses Orde r Schedule Protime-INR Lab Routine H/O mechanical aortic valve replacement residential current 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 therapy weekly for 52 Occurrences starting 07/18/2020 until 07/18/2021, 16 completed documented as of this encounter Procedures Procedure Name Priority Date/Time Associated Diagnosis Comments PROTIME-INR Routine 07/16/2021 6:17 AM CDT H/O mechanical aortic valve replacement industrial maintenance manager current 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 therapy PROTIME-INR Routine 06/18/2021 6:28 AM SUGAR PLANTATION MANAGER H/O mechanical aortic valve replacement industrial maintenance manager current 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 therapy PROTIME-INR Routine 05/20/2021 6:27 AM SUGAR PLANTATION MANAGER H/O mechanical aortic valve replacement residential current 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 therapy PROTIME-INR Routine 05/06/2021 6:30 AM SUGAR PLANTATION MANAGER H/O mechanical aortic valve replacement residential current 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 therapy PROTIME-INR Routine 04/08/2021 6:25 AM SUGAR PLANTATION MANAGER H/O mechanical aortic valve replacement residential current 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 therapy PROTIME-INR Routine 03/28/2021 6:24 AM SUGAR PLANTATION MANAGER H/O mechanical aortic valve replacement industrial maintenance manager current 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 therapy PROTIME-INR Routine 02/26/2021 8:10 AM SUGAR PLANTATION MANAGER H/O mechanical aortic valve replacement industrial maintenance manager current 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 therapy PROTIME-INR Routine 01/29/2021 6:49 AM CDT H/O mechanical aortic valve replacement residential current 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 therapy PROTIME-INR Routine 01/03/2021 11:23 AM CDT H/O mechanical aortic valve replacement industrial maintenance manager current 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 therapy PROTIME-INR Routine 12/20/2020 6:11 AM CDT H/O mechanical aortic valve replacement industrial maintenance manager current 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 therapy PROTIME-INR Routine 12/13/2020 7:19 AM CDT H/O mechanical aortic valve replacement industrial maintenance manager current 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 therapy PROTIME-INR Routine 11/15/2020 6:14 AM CDT H/O mechanical aortic valve replacement industrial maintenance manager current 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 therapy PROTIME-INR Routine 10/18/2020 2:48 PM CDT H/O mechanical aortic valve replacement residential current 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 therapy PROTIME-INR Routine 09/20/2020 8:32 AM CDT H/O mechanical aortic valve replacement industrial maintenance manager current 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 therapy PROTIME-INR Routine 08/09/2020 8:19 AM CDT H/O mechanical aortic valve replacement industrial maintenance manager current 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 therapy PROTIME-INR Routine 07/31/2020 6:44 AM CDT H/O mechanical aortic valve replacement industrial maintenance manager current 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 Results * (ABNORMAL) Protime-INR (07/16/2021 6:17 AM CDT) INR 3.5(H) [facility] Comment: Reference Range ? 0.9-1.1 Moderate-intensity Warfarin Therapy 2.0-3.0 Higher-intensity Warfarin Therapy ?? 3.0-4.0 PT 32.2(H) 9.0 - 11.5 sec [facility] Comment: For additional information, please refer to http://[email or web address].Kitenga/faq/JQT662 (This link is being provided for informational/ educational purposes only.) Blood specimen (specimen) 07/16/2021 6:17 AM CDT 07/16/2021 6:18 AM CDT Bindu Gaines MD LAB BLOOD ORDERABLES Final Result Performing Organization Address City/[facility] de Phone Number Amanda Huff DBA [facility] [address] [place] [address] * (ABNORMAL) Protime-INR (06/18/2021 6:28 AM SUGAR PLANTATION MANAGER) INR 3.3(H) [facility] Comment: Reference Range ? 0.9-1.1 Moderate-intensity Warfarin Therapy 2.0-3.0 Higher-intensity Warfarin Therapy ?? 3.0-4.0 PT 30.9(H) 9.0 - 11.5 sec [facility] Comment: For additional information, please refer to http://Leaders2020.Kitenga/faq/LNB534 (This link is being provided for informational/ educational purposes only.) Blood specimen (specimen) 06/18/2021 6:28 AM SUGAR PLANTATION MANAGER 06/18/2021 6:28 AM SUGAR PLANTATION MANAGER Bindu Gaines MD LAB BLOOD ORDERABLES Final Result [facility] [address] [place] [address] * (ABNORMAL) Protime-INR (05/20/2021 6:27 AM SUGAR PLANTATION MANAGER) INR 3.3(H) [facility] Comment: Reference Range ? 0.9-1.1 Moderate-intensity Warfarin Therapy 2.0-3.0 Higher-intensity Warfarin Therapy ?? 3.0-4.0 PT 30.2(H) 9.0 - 11.5 sec [facility] Comment: For additional information, please refer to http://Leaders2020.Kitenga/faq/GJE949 (This link is being provided for informational/ educational purposes only.) Blood specimen (specimen) 05/20/2021 6:27 AM SUGAR PLANTATION MANAGER 05/20/2021 6:28 AM SUGAR PLANTATION MANAGER Bindu Gaines MD LAB BLOOD ORDERABLES Final Result Amanda Huff DBA [facility] [address] [place] [address] * (ABNORMAL) Protime-INR (05/06/2021 6:30 AM SUGAR PLANTATION MANAGER) INR 4.0(H) [facility] Comment: Reference Range ? 0.9-1.1 Moderate-intensity Warfarin Therapy 2.0-3.0 Higher-intensity Warfarin Therapy ?? 3.0-4.0 PT 36.4(H) 9.0 - 11.5 sec [facility] Comment: For additional information, please refer to http://[email or web address].Kitenga/faq/HGO928 (This link is being provided for informational/ educational purposes only.) Blood specimen (specimen) 05/06/2021 6:30 AM SUGAR PLANTATION MANAGER 05/06/2021 6:31 AM SUGAR PLANTATION MANAGER Bindu Gaines MD LAB BLOOD ORDERABLES Final Result Performing Organization Address [facility] de Phone Number Amanda Huff DBA [facility] [address] [place] [address] * (ABNORMAL) Protime-INR (04/08/2021 6:25 AM SUGAR PLANTATION MANAGER) INR 3.2(H) [facility] Comment: Reference Range ? 0.9-1.1 Moderate-intensity Warfarin Therapy 2.0-3.0 Higher-intensity Warfarin Therapy ?? 3.0-4.0 PT 30.7(H) 9.0 - 11.5 sec [facility] Comment: For additional information, please refer to http://Jell Creative/faq/QPH325 (This link is being provided for informational/ educational purposes only.) Blood specimen (specimen) 04/08/2021 6:25 AM SUGAR PLANTATION MANAGER 04/08/2021 6:26 AM SUGAR PLANTATION MANAGER Bindu Gaines MD LAB BLOOD ORDERABLES Final Result Performing Organization Address [facility] de Phone Number Amanda Huff DBA [facility] [address] [place] [address] * (ABNORMAL) Protime-INR (03/28/2021 6:24 AM SUGAR PLANTATION MANAGER) INR 2.3(H) [facility] Comment: Reference Range ? 0.9-1.1 Moderate-intensity Warfarin Therapy 2.0-3.0 Higher-intensity Warfarin Therapy ?? 3.0-4.0 PT 22.7(H) 9.0 - 11.5 sec [facility] Comment: For additional information, please refer to http://Jell Creative/faq/HBP497 (This link is being provided for informational/ educational purposes only.) Blood specimen (specimen) 03/28/2021 6:24 AM SUGAR PLANTATION MANAGER 03/28/2021 6:25 AM SUGAR PLANTATION MANAGER Bindu Gaines MD LAB BLOOD ORDERABLES Final Result Performing Organization Address [facility] Co de Phone Number [email or web address] [address] [place] [address] * (ABNORMAL) Protime-INR (02/26/2021 8:10 AM SUGAR PLANTATION MANAGER) INR 3.0(H) [facility] Comment: Reference Range ? 0.9-1.1 Moderate-intensity Warfarin Therapy 2.0-3.0 Higher-intensity Warfarin Therapy ?? 3.0-4.0 PT 29.1(H) 9.0 - 11.5 sec [facility] Comment: For additional information, please refer to http://Jell Creative/faq/PQG362 (This link is being provided for informational/ educational purposes only.) Blood specimen (specimen) 02/26/2021 8:10 AM SUGAR PLANTATION MANAGER 02/26/2021 8:11 AM SUGAR PLANTATION MANAGER Result [facility] Bindu Gaines MD LAB BLOOD ORDERABLES Final Result Performing Organization Address [facility] de Phone Number Amanda Huff DBA [facility] [address] [place] [address] * (ABNORMAL) Protime-INR (01/29/2021 6:49 AM CDT) INR 3.4(H) [facility] Comment: Reference Range ? 0.9-1.1 Moderate-intensity Warfarin Therapy 2.0-3.0 Higher-intensity Warfarin Therapy ?? 3.0-4.0 PT 31.9(H) 9.0 - 11.5 sec [facility] Comment: For additional information, please refer to http://Jell Creative/faq/NCG528 (This link is being provided for informational/ educational purposes only.) Blood specimen (specimen) 01/29/2021 6:49 AM CDT 01/29/2021 6:50 AM CDT Bindu Gaines MD LAB BLOOD ORDERABLES Final Result Performing Organization Address [facility] de Phone Number [facility] [address] [place] [address] * (ABNORMAL) Protime-INR (01/03/2021 11:23 AM CDT) INR 3.3(H) [facility] Comment: Reference Range ? 0.9-1.1 Moderate-intensity Warfarin Therapy 2.0-3.0 Higher-intensity Warfarin Therapy ?? 3.0-4.0 PT 31.0(H) 9.0 - 11.5 sec [facility] Comment: For additional information, please refer to http://Leaders2020.Kitenga/faq/CLN563 (This link is being provided for informational/ educational purposes only.) Blood specimen (specimen) 01/03/2021 11:23 AM CDT 01/03/2021 11:24 AM CDT Bindu Gaines MD LAB BLOOD ORDERABLES Final Result Performing Organization Address [facility] de Phone Number [facility] [address] [place] [address] * (ABNORMAL) Protime-INR (12/20/2020 6:11 AM CDT) INR 3.4(H) [facility] Comment: Reference Range ? 0.9-1.1 Moderate-intensity Warfarin Therapy 2.0-3.0 Higher-intensity Warfarin Therapy ?? 3.0-4.0 PT 32.5(H) 9.0 - 11.5 sec [facility] Comment: For additional information, please refer to http://Leaders2020.Kitenga/faq/JHS796 (This link is being provided for informational/ educational purposes only.) Blood specimen (specimen) 12/20/2020 6:11 AM CDT 12/20/2020 6:11 AM CDT Bindu Gaines MD LAB BLOOD ORDERABLES Final Result Performing Organization Address [facility] Co de Phone Number Amanda Huff DBA [facility] [address] [place] [address] * (ABNORMAL) Protime-INR (12/13/2020 7:19 AM CDT) INR 4.1(H) [facility] Comment: Reference Range ? 0.9-1.1 Moderate-intensity Warfarin Therapy 2.0-3.0 Higher-intensity Warfarin Therapy ?? 3.0-4.0 PT 38.8(H) 9.0 - 11.5 sec [facility] Comment: For additional information, please refer to http://Leaders2020.Kitenga/faq/GOM150 (This link is being provided for informational/ educational purposes only.) Blood specimen (specimen) 12/13/2020 7:19 AM CDT 12/13/2020 7:20 AM CDT Bindu Gaines MD LAB BLOOD ORDERABLES Final Result Performing Organization Address [facility] Co de Phone Number [facility] [address] [place] [address] * (ABNORMAL) Protime-INR (11/15/2020 6:14 AM CDT) INR 3.5(H) [facility] Comment: Reference Range ? 0.9-1.1 Moderate-intensity Warfarin Therapy 2.0-3.0 Higher-intensity Warfarin Therapy ?? 3.0-4.0 PT 32.9(H) 9.0 - 11.5 sec [facility] Comment: For additional information, please refer to http://Jell Creative/faq/VBD796 (This link is being provided for informational/ educational purposes only.) Blood specimen (specimen) 11/15/2020 6:14 AM CDT 11/15/2020 6:15 AM CDT Bindu Gaines MD LAB BLOOD ORDERABLES Final Result Performing Organization Address [facility] Co de Phone Number Amanda Huff DBA [facility] [address] [place] [address] * (ABNORMAL) Protime-INR (10/18/2020 2:48 PM CDT) INR 2.5(H) [facility] Comment: Reference Range ? 0.9-1.1 Moderate-intensity Warfarin Therapy 2.0-3.0 Higher-intensity Warfarin Therapy ?? 3.0-4.0 PT 24.4(H) 9.0 - 11.5 sec [facility] Comment: For additional information, please refer to http://[email or web address].Kitenga/faq/MTR237 (This link is being provided for informational/ educational purposes only.) Blood specimen (specimen) 10/18/2020 2:48 PM CDT 10/18/2020 2:49 PM CDT Bindu Gaines MD LAB BLOOD ORDERABLES Final Result Performing Organization Address City/[facility] Co de Phone Number [email or web address] [address] [address] * (ABNORMAL) Protime-INR (09/20/2020 8:32 AM CDT) INR 3.0(H) [facility] Comment: Reference Range ? 0.9-1.1 Moderate-intensity Warfarin Therapy 2.0-3.0 Higher-intensity Warfarin Therapy ?? 3.0-4.0 PT 28.6(H) 9.0 - 11.5 sec [facility] Comment: For additional information, please refer to http://Jell Creative/faq/LGF453 (This link is being provided for informational/ educational purposes only.) Blood specimen (specimen) 09/20/2020 8:32 AM CDT 09/20/2020 8:33 AM CDT Bindu Gaines MD LAB BLOOD ORDERABLES Final Result Performing Organization Address [facility] de Phone Number [facility] [address] [place] [address] * (ABNORMAL) Protime-INR (08/09/2020 8:19 AM CDT) INR 2.9(H) [facility] Comment: Reference Range ? 0.9-1.1 Moderate-intensity Warfarin Therapy 2.0-3.0 Higher-intensity Warfarin Therapy ?? 3.0-4.0 PT 28.2(H) 9.0 - 11.5 sec [facility] Comment: For additional information, please refer to http://Jell Creative/faq/CNB498 (This link is being provided for informational/ educational purposes only.) Blood specimen (specimen) 08/09/2020 8:19 AM CDT 08/09/2020 8:20 AM CDT us Bindu Gaines MD LAB BLOOD ORDERABLES Final Result Performing Organization Address [facility] de Phone Number [facility] [address] [place] [address] * (ABNORMAL) Protime-INR (07/31/2020 6:44 AM CDT) INR 3.9(H) [facility] Comment: Reference Range ? 0.9-1.1 Moderate-intensity Warfarin Therapy 2.0-3.0 Higher-intensity Warfarin Therapy ?? 3.0-4.0 PT 36.7(H) 9.0 - 11.5 sec [facility] Comment: For additional information, please refer to http://education.Kitenga/faq/HTS624 (This link is being provided for informational/ educational purposes only.) Blood specimen (specimen) 07/31/2020 6:44 AM CDT 07/31/2020 6:46 AM CDT Bindu Gaines MD LAB BLOOD ORDERABLES Final Result Performing Organization Address City/State/[facility] Co de Phone Number Amanda Huff DBA [facility] [address] [place] [address] documented in this encounter Visit Diagnoses Diagnosis H/O mechanical aortic valve replacement- Primary industrial maintenance manager current 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 Care Teams Sap Ariba Consultant Relationship Specialty Start Date End Date Helena Yu PA [address] [place] [address] PCP - General Internal Medicine 09/23/18 07/29/20 documented as of this encounter
--- OUTSIDE RECORDS SUMMARY | 2024-04-01 07:41 | XMS_ITS | Encounter Summary ---
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 current 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 therapy Social History [...] on file Legal Sex Female 8:13 AM PROPERTY ASSESSMENT MONITOR Gender Identity Female 06/01/2020 9:42 PM PROPERTY ASSESSMENT MONITOR Sexual Orientation Straight 06/01/2020 9: 42 PM PROPERTY ASSESSMENT MONITOR 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
--- OUTSIDE RECORDS SUMMARY | 2024-04-01 07:42 | XMS_ITS | Encounter Summary ---
Author Organization [facility] Address [address] [place] [address] Care Team Providers Care Manufacturing Assembler Name Role Phone Helena Yu Primary Care Provider +1- [phone] Encounter Details Date Type Department Care Team (Latest Contact Info) Description 04/18/2020 Anticoagulation Visit [facility] Cardiology [address] [place] [address] Huma Trevizo RN H/O mechanical aortic valve replacement; rn progressive care current 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 therapy Social History [...] on file Legal Sex Female 8:13 AM INTEGRATION ENGINEER Gender Identity Female 06/01/2020 9:42 PM INTEGRATION ENGINEER Sexual Orientation Straight 06/01/2020 9: 42 PM INTEGRATION ENGINEER 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 Not on file Not on file documented as of this encounter Plan of Treatment Not on file documented as of this encounter Procedures Procedure Name Priority Date/Time Associated Diagnosis Comments PROTIME-INR Routine 04/17/2020 documented in this encounter Results * (ABNORMAL) Protime-INR (04/17/2020) INR 1.80(A) 0.9 - 1.1 [facility] Blood specimen (specimen) us Historical Provider LAB BLOOD ORDERABLES Antonina hernandez Result [facility] documented in this encounter Visit Diagnoses Diagnosis H/O mechanical aortic valve replacement correction current 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 Care Teams Manufacturing Assembler Relationship Specialty Start Date End Date Helena Yu PA [address] [facility] [address] [place] [address] PCP - General Internal Medicine 09/23/18 07/29/20 documented as of this encounter
--- OUTSIDE RECORDS SUMMARY | 2024-04-01 07:42 | XMS_ITS | Encounter Summary ---
Author Organization [facility] Address [address] [place] [address] Care Team Providers Care Hot Molder Name Role Phone Helena Yu Primary Care Provider +1- [phone] Encounter Details Date Type Department Care Team (Late st Contact Info) Description 04/24/2020 Telephone [facility] Cardiology [address] [id number] [place] [address] [place] [address] Social History Tobacco Use Types Packs/Day Years [...] on file Legal Sex Female 8:13 AM HANG GLIDING INSTRUCTOR Gender Identity Female 06/01/2020 9:42 PM HANG GLIDING INSTRUCTOR Sexual Orientation Straight 06/01/2020 9: 42 PM HANG GLIDING INSTRUCTOR 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 Not on file Not on file documented as of this encounter Miscellaneous Notes * Telephone Encounter - Huma Trevizo RN - 04/24/2020 4:58 PM HANG GLIDING INSTRUCTOR See ac note GLIDING INSTRUCTOR * Telephone Encounter - Carleen Espinoza - 04/24/2020 4:46 PM CST Patient had her INR done today at [facility] in [place] , her results were 2.3 GLIDING INSTRUCTOR documented in this encounter Plan of Treatment Not on file documented as of this encounter Visit Diagnoses Not on filedocumented in this encounter Care Teams Hot Molder Relationship Specialty Start Date End Date Helena Yu PA [facility] [address] PCP - General Internal Medicine 09/23/18 07/29/20 documented as of this encounter
--- OUTSIDE RECORDS SUMMARY | 2024-04-01 07:42 | XMS_ITS | Encounter Summary ---
Author Organization [facility] Address [address] [place] [address] Care Team Providers Care Senior Financial Reporting Accountant Name Role Phone Helena Yu Primary Care Provider +1- [phone] Encounter Details Date Type Department Care Team (Late st Contact Info) Description 05/25/2020 Orders Only [facility] Building [address] [facility] [address] [place] [address] Covid, Vaccination Provider Social History Tobacco Use Types Packs/Day [...] on file Legal Sex Female 8:13 AM NETWORK CONTROL OPERATOR Gender Identity Female 06/01/2020 9:42 PM NETWORK CONTROL OPERATOR Sexual Orientation Straight 06/01/2020 9: 42 PM NETWORK CONTROL OPERATOR 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
--- OUTSIDE RECORDS SUMMARY | 2024-04-01 07:42 | XMS_ITS | Encounter Summary ---
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 therapy Social History [...] file Legal Sex Female 8:13 AM SCHOOL CLEANER Gender Identity Female 06/01/2020 9:42 PM SCHOOL CLEANER Sexual Orientation Straight 06/01/2020 9: 42 PM SCHOOL CLEANER 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 Not on file Not on file documented as of this encounter Plan of Treatment Not on file documented as of this encounter Procedures Procedure Name Priority Date/Time Associated Diagnosis Comments PROTIME-INR Routine 04/24/2020 documented in this encounter Results * (ABNORMAL) Protime-INR (04/24/2020) INR 2.30(A) 0.9 - 1.1 [facility] Blood specimen (specimen) us Historical Provider LAB BLOOD ORDERABLES Antonina hernandez Result [facility] documented in this encounter Visit Diagnoses Diagnosis H/O mechanical aortic valve replacement jail current 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 Care Teams Beamster Relationship Specialty Start Date End Date Helena Yu PA [address] [facility] [address] [place] [address] PCP - General Internal Medicine 09/23/18 07/29/20 documented as of this encounter
--- OUTSIDE RECORDS SUMMARY | 2024-04-01 07:42 | XMS_ITS | Encounter Summary ---
Author Organization [facility] Address [address] [place] [address] Care Team Providers Care Cloth Folder Machine Name Role Phone Helena Yu Primary Care Provider +1- [phone] Encounter Details Date Type Department Care Team (Latest Contact Info) Description 05/09/2020 Anticoagulation Visit [facility] Cardiology [address] [place] [address] Penny Wilks RN H/O mechanical aortic valve replacement; termite helper current 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 therapy Social History [...] on file Legal Sex Female 8:13 AM ORANGE PICKER Gender Identity Female 06/01/2020 9:42 PM ORANGE PICKER Sexual Orientation Straight 06/01/2020 9: 42 PM ORANGE PICKER 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 Not on file Not on file documented as of this encounter Plan of Treatment Not on file documented as of this encounter Procedures Procedure Name Priority Date/Time Associated Diagnosis Comments PROTIME-INR Routine 05/09/2020 documented in this encounter Results * (ABNORMAL) Protime-INR (05/09/2020) INR 3.20(A) 0.9 - 1.1 [facility] Blood specimen (specimen) us Historical Provider LAB BLOOD ORDERABLES Antonina hernandez Result [facility] documented in this encounter Visit Diagnoses Diagnosis H/O mechanical aortic valve replacement termite helper current 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 Care Teams Cloth Folder Machine Relationship Specialty Start Date End Date Helena Yu PA [address] [facility] [address] [place] [address] PCP - General Internal Medicine 09/23/18 07/29/20 documented as of this encounter
--- OUTSIDE RECORDS SUMMARY | 2024-04-01 07:43 | XMS_ITS | Encounter Summary ---
Author Organization [facility] Address [address] [place] [address] Care Team Providers Care Boat Designer Name Role Phone Helena Yu Primary Care Provider +1- [phone] Encounter Details Date Type Department Care Team (Late st Contact Info) Description 04/18/2020 Telephone [facility] Cardiology [address] [address] Cj Solano MD [address] [facility] [address] [place] [address] Social History Tobacco Use Types Packs/Day [...] on file Legal Sex Female 8:13 AM BACK UP SCAN COORDINATOR Gender Identity Female 06/01/2020 9:42 PM BACK UP SCAN COORDINATOR Sexual Orientation Straight 06/01/2020 9: 42 PM BACK UP SCAN COORDINATOR 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 UP SCAN COORDINATOR * Telephone Encounter - Carleen Espinoza - 04/18/2020 10:23 AM CST Patient had her protime done yesterday at [facility] in [place] the results were 1.8 she would like todiscuss this. UP SCAN COORDINATOR documented in this encounter Plan of Treatment Not on file documented as of this encounter Visit Diagnoses Not on filedocumented in this encounter Care Teams Boat Designer Relationship Specialty Start Date End Date Helena Yu PA [address] [facility] [address] [place] [address] PCP - General Internal Medicine 09/23/18 07/29/20 documented as of this encounter
--- OUTSIDE RECORDS SUMMARY | 2024-04-01 07:43 | XMS_ITS | Encounter Summary ---
Author Organization [facility] Address [address] [place] [address] Care Team Providers Care Barrel Rib Matting Machine Operator Name Role Phone Helena Yu Primary Care Provider +1- [phone] Encounter Details Date Type Department Care Team (Late st Contact Info) Description 03/21/2020 Telephone [facility] Cardiology [address] [place] [address] Bindu Gaines MD [address] [place] [address] Social History Tobacco Use Types [...] on file Legal Sex Female 8:13 AM SWITCHBOARD WIRE WORKER HELPER Gender Identity Female 06/01/2020 9:42 PM SWITCHBOARD WIRE WORKER HELPER Sexual Orientation Straight 06/01/2020 9: 42 PM SWITCHBOARD WIRE WORKER HELPER 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 Charted in Anticoag. CHBOARD WIRE WORKER HELPER * Telephone Encounter - Jane Mcmullen - 03/21/2020 11:10 AM CST Pt called to report her INR 2.8 results. cb [phone] CHBOARD WIRE WORKER HELPER documented in this encounter Plan of Treatment Not on file documented as of this encounter Visit Diagnoses Not on filedocumented in this encounter Care Teams Barrel Rib Matting Machine Operator Relationship Specialty Start Date End Date Helena Yu PA [address] [place] [address] PCP - General Internal Medicine 09/23/18 07/29/20 documented as of this encounter
--- OUTSIDE RECORDS SUMMARY | 2024-04-01 07:43 | XMS_ITS | Encounter Summary ---
Author Organization [facility] Address 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 Social History [...] on file Legal Sex Female 8:13 AM STYLIST APPRENTICE Gender Identity Female 06/01/2020 9:42 PM STYLIST APPRENTICE Sexual Orientation Straight 06/01/2020 9: 42 PM STYLIST APPRENTICE 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 Not on file Not on file documented as of this encounter Plan of Treatment Not on file documented as of this encounter Procedures Procedure Name Priority Date/Time Associated Diagnosis Comments PROTIME-INR Routine 03/20/2020 documented in this encounter Results * (ABNORMAL) Protime-INR (03/20/2020) INR 2.80(A) 0.9 - 1.1 [facility] Blood specimen (specimen) us Historical Provider LAB BLOOD ORDERABLES Antonina hernandez Result [facility] documented in this encounter Visit Diagnoses Diagnosis H/O mechanical aortic valve replacement snf current 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 Care Teams Film Processing Utility Worker Relationship Specialty Start Date End Date Helena Yu PA [address] [facility] [address] [place] [address] PCP - General Internal Medicine 09/23/18 07/29/20 documented as of this encounter
--- OUTSIDE RECORDS SUMMARY | 2024-04-01 07:44 | XMS_ITS | Encounter Summary ---
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 [...] on file Legal Sex Female 8:13 AM DIET AIDE Gender Identity Female 06/01/2020 9:42 PM DIET AIDE Sexual Orientation Straight 06/01/2020 9: 42 PM DIET AIDE 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
--- OUTSIDE RECORDS SUMMARY | 2024-04-01 07:44 | XMS_ITS | Encounter Summary ---
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 Social History [...] on file Legal Sex Female 8:13 AM PERSONAL COMPANION Gender Identity Female 06/01/2020 9:42 PM PERSONAL COMPANION Sexual Orientation Straight 06/01/2020 9: 42 PM PERSONAL COMPANION 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 Not on file Not on file documented as of this encounter Plan of Treatment Not on file documented as of this encounter Procedures Procedure Name Priority Date/Time Associated Diagnosis Comments PROTIME-INR Routine 03/13/2020 documented in this encounter Results * (ABNORMAL) Protime-INR (03/13/2020) INR 2.70(A) 0.9 - 1.1 [facility] Blood specimen (specimen) us Historical Provider LAB BLOOD ORDERABLES Antonina l Result [facility] documented in this encounter Visit Diagnoses Diagnosis H/O mechanical aortic valve replacement alf current 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 Care Teams Fur Cutter Relationship Specialty Start Date End Date Helena Yu PA [address] [address] PCP - General Internal Medicine 09/23/18 07/29/20 documented as of this encounter
--- OUTSIDE RECORDS SUMMARY | 2024-04-01 07:44 | XMS_ITS | Encounter Summary ---
Author Organization [facility] Address [address] [place] [address] Care Team Providers Care Grinder Watch Parts Name Role Phone Helena Yu Primary Care Provider +1- [phone] Encounter Details Date Type Department Care Team (Late st Contact Info) Description 02/24/2020 Telephone [facility] Cardiology [address] [place] [address] Bindu Gaines MD [address] [place] [address] Social History Tobacco Use Types [...] on file Legal Sex Female 8:13 AM BIOMETRIC SCREENER Gender Identity Female 06/01/2020 9:42 PM BIOMETRIC SCREENER Sexual Orientation Straight 06/01/2020 9: 42 PM BIOMETRIC SCREENER 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 4 tablet/capsule 02/24/2020 07/30/2020 documented in this encounter Miscellaneous Notes * Telephone Encounter - Huma Trevizo RN - 02/24/2020 11:58 AM BIOMETRIC SCREENER Called pt and Rx for amoxicillin sent to pharm prior to her dental appt. Pt verbalized understanding. ETRIC SCREENER * Telephone Encounter - Jane Mcmullen - 02/24/2020 11:44 AM CST Pt has requested a return call to discuss an being pre medicated for her dental appt on ETRIC SCREENER documented in this encounter Plan of Treatment Not on file documented as of this encounter Visit Diagnoses Not on filedocumented in this encounter Care Teams Grinder Watch Parts Relationship Specialty Start Date End Date Helena Yu PA [address] [facility] [address] [place] [address] PCP - General Internal Medicine 09/23/18 07/29/20 documented as of this encounter
--- OUTSIDE RECORDS SUMMARY | 2024-04-01 07:44 | XMS_ITS | Encounter Summary ---
Author Organization [facility] Address [address] [place] [address] Care Team Providers Care Processor Grain Name Role Phone Helena Yu Primary Care Provider +1- [phone] Encounter Details Date Type Department Care Team (Latest Contact Info) Description 03/07/2020 Anticoagulation Visit [facility] Cardiology [address] [place] [address] Bindu Gaines MD [address] [place] [address] H/O mechanical aortic valve replacement; termite helper [...] on file Legal Sex Female 8:13 AM PULP GRINDER FEEDER Gender Identity Female 06/01/2020 9:42 PM PULP GRINDER FEEDER Sexual Orientation Straight 06/01/2020 9: 42 PM PULP GRINDER FEEDER 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 Not on file Not on file documented as of this encounter Plan of Treatment Not on file documented as of this encounter Procedures Procedure Name Priority Date/Time Associated Diagnosis Comments PROTIME-INR Routine 03/07/2020 documented in this encounter Results * (ABNORMAL) Protime-INR (03/07/2020) INR 2.90(A) 0.9 - 1.1 [facility] Blood specimen (specimen) us Historical Provider MD LAB BLOOD ORDERABLES Edit ed Result - Final [facility] documented in this encounter Visit Diagnoses Diagnosis H/O mechanical aortic valve replacement termite helper current 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 Care Teams Processor Grain Relationship Specialty Start Date End Date Helena Yu PA [address] [address] PCP - General Internal Medicine 09/23/18 07/29/20 documented as of this encounter
--- OUTSIDE RECORDS SUMMARY | 2024-04-01 07:44 | XMS_ITS | Encounter Summary ---
Author Organization [facility] Address [address] [place] [address] Care Team Providers Care Development Technician Name Role Phone Helena Yu Primary Care Provider +1- [phone] Encounter Details Date Type Department Care Team (Late st Contact Info) Description 03/19/2020 Telephone [facility] Family Medicine [address] [place] [address] Helena Yu PA [address] [place] [address] Social History Tobacco Use Types Packs/Day Years [...] on file Legal Sex Female 8:13 AM EXTENSION EDGER Gender Identity Female 06/01/2020 9:42 PM EXTENSION EDGER Sexual Orientation Straight 06/01/2020 9: 42 PM EXTENSION EDGER 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 Not on file Not on file documented as of this encounter Miscellaneous Notes * Telephone Encounter - Berta Bhatia MA - 07/04/2020 1:22 PM CDT Opened to release mammogram results documented in this encounter Plan of Treatment Not on file documented as of this encounter Procedures Procedure Name Priority Date/Time Associated Diagnosis Comments SCREENING MAMMOGRAM BILATERAL W SVETLANA Schedule Routine, Read Routine (OP Routine) 02/24/2020 Breast cancer screening by mammogram documented in this encounter Results * Screening Mammogram Bilateral W Svetlana (02/24/2020) Anatomical Region Laterality Modality Breast Bilateral Mammography Impressions 02/24/2020 Recommend routine F/U in one year. BI-RADS Category 1: negative Helena DAVEY IMG MAMMO PROCEDURES Final Result documented in this encounter Visit Diagnoses Diagnosis Breast cancer screening by mammogram documented in this encounter Care Teams Development Technician Relationship Specialty Start Date End Date Helena Yu PA [address] [facility] [address] [place] [address] PCP - General Internal Medicine 09/23/18 07/29/20 documented as of this encounter
--- OUTSIDE RECORDS SUMMARY | 2024-04-01 07:44 | XMS_ITS | Encounter Summary ---
Author Organization [facility] Address [address] [place] [address] Care Team Providers Care Venereal Disease Control Head Name Role Phone Helena Yu Primary Care Provider +1- [phone] Encounter Details Date Type Department Care Team (Late st Contact Info) Description 03/07/2020 Telephone [facility] Cardiology [address] [facility] [address] [place] [address] Bindu Gaines MD [address] [place] [address] Social History Tobacco Use Types [...] on file Legal Sex Female 8:13 AM RESIDENT DIRECTOR Gender Identity Female 06/01/2020 9:42 PM RESIDENT DIRECTOR Sexual Orientation Straight 06/01/2020 9: 42 PM RESIDENT DIRECTOR 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 Re-corrected the flow sheet again. Patient checked INR yesterday, which was 2.7, but she had missed Thursday's dose. Kept dose the same and patient to recheck next week. DENT DIRECTOR * Telephone Encounter - Naa Gómez - 03/14/2020 2:57 PM CST Pt called to speak with Aria BATEMAN in regards to pt's INR results. DENT DIRECTOR * Telephone Encounter - Aria Harvey RN - 03/14/2020 2:40 PM RESIDENT DIRECTOR Corrected INR in flow sheet. Patient should have new INR due today. LMOM for patient that record corrected and will wait for new INR to give new instructions. DENT DIRECTOR DENT DIRECTOR * Telephone Encounter - Tabitha Craft - 03/14/2020 2:26 PM RESIDENT DIRECTOR Pt provided the incorrect information regarding INR on prior phone call. Pt correct INR is 2.7 cb [phone] DENT DIRECTOR * Telephone Encounter - Jane Mcmullen - 03/14/2020 2:23 PM CST Pt called to report INR 2.9 results. cb [phone] DENT DIRECTOR * Telephone Encounter - Aria Harvey RN - 03/07/2020 1:23 PM RESIDENT DIRECTOR INR addressed w/patient. See anticoag flow sheet. DENT DIRECTOR * Telephone Encounter - Aria Harvey RN - 03/07/2020 12:30 PM RESIDENT DIRECTOR Attempted to call patient back, but [facility] to [facility]. Left another message requesting return call. DENT DIRECTOR * Telephone Encounter - Jane Mcmullen - 03/07/2020 11:36 AM CST Pt requesting a return call cb [phone] DENT DIRECTOR * Telephone Encounter - Aria Harvey RN - 03/07/2020 10:38 AM RESIDENT DIRECTOR LMOM requesting return call to discuss. Significant drop with changes last week, although therapeutic. Would like to discuss either keeping dose same for another week or increasing just slightly (2mgjust one day per week, 4 mg all other days) and recheck in one week. Will encourage to avoid excessive alcohol intake as well. DENT DIRECTOR * Telephone Encounter - Jane Mcmullen - 03/07/2020 10:20 AM CST Pt called to report INR 2.9 results PT 27.7 cb [phone] DENT DIRECTOR documented in this encounter Plan of Treatment Not on file documented as of this encounter Visit Diagnoses Not on filedocumented in this encounter Care Teams Venereal Disease Control Head Relationship Specialty Start Date End Date Helena Yu PA [address] [place] [address] PCP - General Internal Medicine 09/23/18 07/29/20 documented as of this encounter
--- OUTSIDE RECORDS SUMMARY | 2024-04-01 07:45 | XMS_ITS | Encounter Summary ---
Author Organization [facility] Address [address] [place] [address] Care Team Providers Care Binder Technician Name Role Phone Helena Yu Primary Care Provider +1- [phone] Encounter Details Date Type Department Care Team (Late st Contact Info) Description 02/13/2020 Telephone [facility] Cardiology [address] [place] [address] Bindu Gaines MD [address] [place] [address] Social History Tobacco Use Types [...] on file Legal Sex Female 8:13 AM TERRESTRIAL ECOLOGIST Gender Identity Female 06/01/2020 9:42 PM TERRESTRIAL ECOLOGIST Sexual Orientation Straight 06/01/2020 9: 42 PM TERRESTRIAL ECOLOGIST 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 Pt verbalized understanding. ESTRIAL ECOLOGIST * Telephone Encounter - Jane Mcmullen - 02/13/2020 8:43 AM CST Pt has requested a return call to discuss her labs been drawn on 02-14-2020 Pt has come in contact with someone that has tested positive for covid 19 Pt is quarantine until Feb 24 2020 ESTRIAL ECOLOGIST documented in this encounter Plan of Treatment Not on file documented as of this encounter Visit Diagnoses Not on filedocumented in this encounter Care Teams Binder Technician Relationship Specialty Start Date End Date Helena Yu PA [address] [address] PCP - General Internal Medicine 09/23/18 07/29/20 documented as of this encounter
--- OUTSIDE RECORDS SUMMARY | 2024-04-01 07:45 | XMS_ITS | Encounter Summary ---
Author Organization [facility] Address [address] [place] [address] Care Team Providers Care Acquisitions Analyst Name Role Phone Helena Yu Primary Care Provider +1- [phone] Encounter Details Date Type Department Care Team (Late st Contact Info) Description 02/22/2020 Telephone [facility] Cardiology [address] [place] [address] Bindu Gaines MD [address] [place] [address] Social History Tobacco Use Types [...] on file Legal Sex Female 8:13 AM CLEANER INDUSTRIAL Gender Identity Female 06/01/2020 9:42 PM CLEANER INDUSTRIAL Sexual Orientation Straight 06/01/2020 9: 42 PM CLEANER INDUSTRIAL 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 ----- Message from Yessy Donaldson sent at 02/22/2020 10:06 AM CLEANER INDUSTRIAL ----- Regarding: Prescription Question Contact: Effective immediately, any prescriptions for myself need to be sent to [facility] pharmacy at [address] [place] [address] in [place], [place]; as we have changed pharmacies. [address] Thanks. NER INDUSTRIAL NER INDUSTRIAL documented in this encounter Plan of Treatment Not on file documented as of this encounter Visit Diagnoses Not on filedocumented in this encounter Care Teams Acquisitions Analyst Relationship Specialty Start Date End Date Helena Yu PA [address] [place] [address] PCP - General Internal Medicine 09/23/18 07/29/20 documented as of this encounter
--- OUTSIDE RECORDS SUMMARY | 2024-04-01 07:45 | XMS_ITS | Encounter Summary ---
Author Organization [facility] Medical [facility] Address [address] [place] [facility] [address] [place] [address] Care Team Providers Care Breaker Operator Name Role Phone Helena Yu Primary Care Provider +1- [phone] Reason for Referral * Diagnostic Imaging (Routine) - Closed Specialty Diagnoses / Procedures Referred By Contac t Referred To Contact Procedures XR Knee Left 4 or More Views [facility] Family Medicine [address] [place] [address] Phone: tel: fax: Referral ID Status Reason Start Date Expiration Date Visits Re quested Visits Authorized [id number] Closed 01/24/2020 02/22/2021 1 1 Encounter Details Date Type Department Care Team (Late st Contact Info) Description 01/24/2020 Orders Only [facility] Family Medicine [address] [place] [address] ProviderReynaldo MD [address] [place] [address] Social History Tobacco Use Types Packs/Day Years [...] on file Legal Sex Female 8:13 AM RENT AND MISCELLANEOUS REMITTANCE CLERK Gender Identity Female 06/01/2020 9:42 PM RENT AND MISCELLANEOUS REMITTANCE CLERK Sexual Orientation Straight 06/01/2020 9: 42 PM RENT AND MISCELLANEOUS REMITTANCE CLERK 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 Not on file Not on file documented as of this encounter Plan of Treatment Not on file documented as of this encounter Procedures Procedure Name Priority Date/Time Associated Diagnosis Comments XR KNEE LEFT 4 OR MORE VIEWS Schedule Routine, Read Routine (OP Routine) 01/23/2020 documented in this encounter Results * XR Knee Left 4 or More Views (01/23/2020) Anatomical Region Laterality Modality Lower Extremities, Knee Left Radiogra phic Imaging Historical Provider MD MOSES XR PROCEDURES Final R esult documented in this encounter Visit Diagnoses Not on filedocumented in this encounter Care Teams Breaker Operator Relationship Specialty Start Date End Date Helena Yu PA [address] [place] [address] PCP - General Internal Medicine 09/23/18 07/29/20 documented as of this encounter
--- OUTSIDE RECORDS SUMMARY | 2024-04-01 07:45 | XMS_ITS | Encounter Summary ---
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 therapy Social History [...] on file Legal Sex Female 8:[address] Gender Identity Female 06/01/2020 9:[address] JUDGE Sexual Orientation Straight 06/01/2020 9: [address] JUDGE 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
--- OUTSIDE RECORDS SUMMARY | 2024-04-01 07:45 | XMS_ITS | Encounter Summary ---
Author Organization [facility] Medical Group Address [address] [place] [address] Care Team Providers Care Rn Shift Mgr Name Role Phone Helena Yu Primary Care Provider +1- [phone] Encounter Details Date Type Department Care Team (Late st Contact Info) Description 01/31/2020 Telephone [facility] Cardiology [address] [place] [address] Bindu Gaines MD [address] [place] [address] Social History Tobacco Use Types [...] file Legal Sex 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 * Telephone Encounter - Jnae Mcmullen - 01/31/2020 3:23 PM CDT Incoming call from Nelia with the [facility] in [place] called with an update on the hold request for the pt medication. Jorden states the pt should start the withhold on the Warfarinmedication on . 02-02-2020. Jorden has also stated that this is a very urgent matter. [phone] * Telephone Encounter - Huma Trevizo, BHAVANA - 01/31/2020 2:42 PM CDT LM on NV VM notifying her that we received the request for warfarin and asa hold. Informed her thatwe would address this week and send back madelin. * Telephone Encounter - Naa Gómez - 01/31/2020 8:55 AM CDT [facility] called to follow up on a hold request on pt warfarin 2 & 5mg tabs and aspirin 81 mg tabs faxed to office yesterday 01/31/20. Jorden report that it is very urgent to hear back on the request . . documented in this encounter Plan of Treatment Not on file documented as of this encounter Visit Diagnoses Not on filedocumented in this encounter Care Teams Rn Shift Mgr Relationship Specialty Start Date End Date Helena Yu PA [address] [place] [address] PCP - General Internal Medicine 09/23/18 07/29/20 documented as of this encounter
--- OUTSIDE RECORDS SUMMARY | 2024-04-01 07:46 | XMS_ITS | Encounter Summary ---
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 Social History [...] on file Legal 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 Gender Identity Female 06/01/2020 9:42 PM ASSEMBLY LINE DRIVER Sexual Orientation Straight 06/01/2020 9: 42 PM ASSEMBLY LINE DRIVER 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
--- OUTSIDE RECORDS SUMMARY | 2024-04-01 07:46 | XMS_ITS | Encounter Summary ---
Author Organization [facility] Address [address] [place] [address] Care Team Providers Care Fiberglass Machine Operator Name Role Phone Helena Yu Primary Care Provider +1- [phone] Encounter Details Date Type Department Care Team (Late st Contact Info) Description 01/05/2020 Telephone [facility] Family Medicine [address] [place] [address] Yessy Branch PA [address] [place] [address] Social History Tobacco Use Types Packs/Day Years [...] on file Legal Sex Female 8:13 AM SHANKER OUT Gender Identity Female 06/01/2020 9:42 PM SHANKER OUT Sexual Orientation Straight 06/01/2020 9: 42 PM SHANKER OUT 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 I reviewed message from you yesterday regarding call to [facility]. They are going to check with [facility] to determine if a PA is needed andwill let us know if we can be of further assistance. documented in this encounter Plan of Treatment Not on file documented as of this encounter Visit Diagnoses Not on filedocumented in this encounter Care Teams Fiberglass Machine Operator Relationship Specialty Start Date End Date Helena Yu PA [address] [facility] [place] [address] PCP - General Internal Medicine 09/23/18 07/29/20 documented as of this encounter
--- OUTSIDE RECORDS SUMMARY | 2024-04-01 07:46 | XMS_ITS | Encounter Summary ---
Author Organization [facility] Address [address] [place] [address] Care Team Providers Care Manager Technical Support Name Role Phone Helena Yu Primary Care Provider +1- [phone] Encounter Details Date Type Department Care Team (Late st Contact Info) Description 01/09/2020 Telephone [facility] Family Medicine [address] [place] [address] Helena Yu PA [address] [place] [address] Social History Tobacco Use Types [...] on file Legal Sex Female 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 Gender Identity Female 06/01/2020 9:42 PM PLASTIC PARTS DESIGNER Sexual Orientation Straight 06/01/2020 9: 42 PM PLASTIC PARTS DESIGNER 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 Not on file Not on file documented as of this encounter Miscellaneous Notes * Telephone Encounter - Berta Bhatia MA - 01/09/2020 9:16 AM CDT Opened to record MRI Lumbar spine results documented in this encounter Plan of Treatment Not on file documented as of this encounter Procedures Procedure Name Priority Date/Time Associated Diagnosis Comments MRI LUMBAR SPINE WO CONTRAST Schedule Routine, Read Routine (OP Routine) 01/05/2020 Right sided sciatica documented in this encounter Results * MRI Lumbar Spine WO Contrast (01/05/2020) Anatomical Region Laterality Modality Spine N/A Magnetic Resonan ce us Helena DAVEY IMG MRI PROCEDURES Final R esult documented in this encounter Visit Diagnoses Diagnosis Right sided sciatica Sciatica documented in this encounter Care Teams Manager Technical Support Relationship Specialty Start Date End Date Helena Yu PA [address] [facility] [address] [place] [address] PCP - General Internal Medicine 09/23/18 07/29/20 documented as of this encounter
--- OUTSIDE RECORDS SUMMARY | 2024-04-01 07:46 | XMS_ITS | Encounter Summary ---
Author Organization [facility] Medical [facility] Address [address] [place] [address] Care Team Providers Care Lead Java J2Ee Developer Name Role Phone Helena Yu Primary Care Provider +1- [phone] Reason for Visit * Reason Onset Date Comments BCBS PA for MRI 01/02/2020 Encounter Details Date Type Department Care Team (Late st Contact Info) Description 01/02/2020 Telephone [facility] Family Medicine [address] [address] [place] [address] Helena Yu PA [address] [place] [address] BCBS PA for MRI Social History Tobacco Use Types Packs/Day Years [...] file Legal Sex Female 8:13 AM FACILITY ENVIRONMENTAL TECHNICIAN Gender Identity Female 06/01/2020 9:42 PM FACILITY ENVIRONMENTAL TECHNICIAN Sexual Orientation Straight 06/01/2020 9: 42 PM FACILITY ENVIRONMENTAL TECHNICIAN 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 After speaking with a technical service representative I was informed patient does not need a pre-cert for this MRI. I called patient and let her know. Have not been able to get anyone from [facility]'s pre-cert dept. Will try again in the morning. * Telephone Encounter - Nara Sotomayor - 01/02/2020 11:31 AM CDT Patients called upset because patient was originally scheduled for this past weekend and itwas canc'd due to not having the Prior Auth. I explained that the patient had called on 12/28 and stated that she called her insurance company and that she was told that she did not need a PA for the MRI and if she could just come pick up man the order and schedule it herself. Patient came up 12/28 and picked the order. Patient is currently scheduled 01/05/20 at [facility] documented in this encounter Plan of Treatment Not on file documented as of this encounter Visit Diagnoses Not on filedocumented in this encounter Care Teams Lead Java J2Ee Developer Relationship Specialty Start Date End Date Helena Yu PA [address] [facility] [address] [place] [address] PCP - General Internal Medicine 09/23/18 07/29/20 documented as of this encounter
--- OUTSIDE RECORDS SUMMARY | 2024-04-01 07:47 | XMS_ITS | Encounter Summary ---
Author Organization [facility] Medical [facility] Address [address] [place] [address] Care Team Providers Care Whipper Name Role Phone Helena Yu Primary Care Provider +1- [phone] Encounter Details Date Type Department Care Team (Late st Contact Info) Description 12/30/2019 Telephone [facility] Cardiology [address] [place] [address] Bindu Gaines MD [address] [place] [address] Social History Tobacco Use Types [...] on file Legal Sex Female 8:13 AM PHARMACY STOCK CLERK Gender Identity Female 06/01/2020 9:42 PM PHARMACY STOCK CLERK Sexual Orientation Straight 06/01/2020 9: 42 PM PHARMACY STOCK CLERK 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 ----- Message from Bindu Gaines MD sent at 12/30/2019 2:49 PM CDT ----- Patient with a mechanical aortic valve replacement, please review Echo results: Looks good, no change. 11/2017 EF 60%, diast dysfxn, EF 60%, LYNSEY 1.5 cm2, mean grad 7 mmHg. 12/2018 EF 60-65%, diast dysfxn, LYNSEY 1.1 cm2, mean grad 6 mmHg, mild AI. 12/2019 EF 55-60%, diast dysfxn, LYNSEY 1.1 cm2, mean grad 10 mmHg, mild AI. documented in this encounter Plan of Treatment Not on file documented as of this encounter Visit Diagnoses Not on filedocumented in this encounter Care Teams Whipper Relationship Specialty Start Date End Date Helena Yu PA [address] [facility] [address] [place] [address] PCP - General Internal Medicine 09/23/18 07/29/20 documented as of this encounter
--- OUTSIDE RECORDS SUMMARY | 2024-04-01 07:47 | XMS_ITS | Encounter Summary ---
Author Organization [facility] Medical [facility] Address [address] [place] [address] Care Team Providers Care Patriot Missile Air Defense Artillery Name Role Phone Helena Yu Primary Care Provider +1- [phone] Reason for Referral * Diagnostic Imaging (Routine) - Closed Specialty Diagnoses / Procedures Referred By Contac t Referred To Contact Diagnoses Right sided sciatica Procedures MRI Lumbar Spine WO Contrast Helena Yu PA [address] [place] [address] Phone: tel: fax: [address] [place] [address] Phone: tel: Referral ID Status Reason Start Date Expiration Date Visits Re quested Visits Authorized [id number] Closed 12/25/2019 01/23/2021 1 1 Reason for Visit * Reason Onset Date Comments imaging results 12/21/2019 Encounter Details Date Type Department Care Team (Late st Contact Info) Description 12/21/2019 Telephone [facility] Family Medicine [address] [place] [address] Helena Yu PA [address] [place] [address] imaging results Social History Tobacco Use Types Packs/Day [...] on file Legal Sex Female 8:13 AM DIRECTOR OF HOTEL OPERATIONS Gender Identity Female 06/01/2020 9:42 PM DIRECTOR OF HOTEL OPERATIONS Sexual Orientation Straight 06/01/2020 9: 42 PM DIRECTOR OF HOTEL OPERATIONS 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 * Telephone Encounter - Yessy Gomes PA - 12/27/2019 1:07 PM CDT Patient called back - she would like the mri scheduled at [facility] please. I told her we would let her know when approved by insurance and scheduled. * Telephone Encounter - Helena Yu PA - 12/26/2019 5:23 PM CDT MRI order already placed. * Telephone Encounter - Nara Sotomayor - 12/26/2019 3:17 PM CDT Patient called the office back and said that she discussed with Chiropractor and asked if an MRI order could go to [facility]. Patient said that December 28 between 10:00am-1:30pm works the best. If unable to get 12/28 then patient said that she thinks she is off Thursday. * Telephone Encounter - Nara Sotomayor - 12/26/2019 1:30 PM CDT Patient aware and voiced understanding. Patient will call office after discussing with Chiropractorand after she decides what she wants to do. * Telephone Encounter - Helena Yu PA - 12/26/2019 10:33 AM CDT Noted. Will wait for patient to recontact the office. Most mechanical valves are safe with MRI. Will allow her to discuss further with her chiropractor but my recommendation is MRI then consider Pain mgt vs Ortho Spine depending on the results. * Telephone Encounter - Nara Sotomayor - 12/26/2019 10:13 AM CDT Patient doesn't know if with her heart valve if she could do an MRI. Patient said that she has an appt with her Chiropractor today (12/25). Patient said that if she can have the MRI yes to do it at [facility] but it would need to be this week. * Telephone Encounter - Yessy Gomes PA - 12/26/2019 9:04 AM CDT I called pt and lmom for call back. * Telephone Encounter - Helena Yu PA - 12/25/2019 9:26 PM CDT No acute changes on the lumbar spine xrays, just Degenerative changes but with failed PT and persistent sxs, recommend MRI lumbar spine. Does she want it at [facility]? * Telephone Encounter - Berta Bhatia MA - 12/21/2019 6:11 PM CDT Lumbar spine Xray results attached. documented in this encounter Plan of Treatment Not on file documented as of this encounter Procedures Procedure Name Priority Date/Time Associated Diagnosis Comments XR SPINE LUMBAR 2 OR 3 VIEWS Schedule Routine, Read Routine (OP Routine) 12/12/2019 Right sided sciatica documented in this encounter Results * MRI Lumbar Spine WO Contrast (01/05/2020) Anatomical Region Laterality Modality Spine N/A Magnetic Resonan ce Helena DAVEY IMG MRI PROCEDURES Final R esult * XR Spine Lumbar 2 or 3 Views (12/12/2019) Anatomical Region Laterality Modality Spine N/A Radiographic Adriana ging Helena DAEVY IMG XR PROCEDURES Final Re sult documented in this encounter Visit Diagnoses Diagnosis Right sided sciatica Sciatica documented in this encounter Care Teams Patriot Missile Air Defense Artillery Relationship Specialty Start Date End Date Helena Yu PA [address] [place] [address] PCP - General Internal Medicine 09/23/18 07/29/20 documented as of this encounter
--- OUTSIDE RECORDS SUMMARY | 2024-04-01 07:47 | XMS_ITS | Encounter Summary ---
Author Organization [facility] Medical Group Address [address] [place] [address] Care Team Providers Care Splitting Machine Feeder Name Role Phone Helena Yu Primary Care Provider +1- [phone] Reason for Referral * Diagnostic Imaging (Routine) - Closed Specialty Diagnoses / Procedures Referred By Contac t Referred To Contact Diagnoses Breast cancer screening by mammogram Procedures Screening Mammogram Bilateral W Thai Helena Yu PA [address] [place] [address] Phone: tel: fax: Unknown Place of Service fax: Referral ID Status Reason Start Date Expiration Date Visits Re quested Visits Authorized [id number] Closed 12/12/2019 01/10/2021 1 1 * Diagnostic Imaging (Routine) - Closed Specialty Diagnoses / Procedures Referred By Contac t Referred To Contact Diagnoses Right sided sciatica Procedures XR Spine Lumbar 2 or 3 Views Helena Yu PA [address] [place] [address] Phone: tel: fax: External Order Referral ID Status Reason Start Date Expiration Date Visits Re quested Visits Authorized [id number] Closed 12/12/2019 01/10/2021 1 1 Reason for Visit * Reason Comments Follow-up on Lt sided sciatica pain Encounter Details Date Type Department Care Team (Latest Contact Info) Description 12/12/2019 8:00 AM CDT Office Visit [facility] Medical [facility] Family Medicine [address] [place] [address] Helena Yu PA 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; H/O mechanical aortic valve replacement; Hypercholesteremia Social History Tobacco Use Types Packs/Day [...] file Legal Sex Female 8:13 AM OFFICE REP Gender Identity Female 06/01/2020 9:42 PM OFFICE REP Sexual Orientation Straight 06/01/2020 9: 42 PM OFFICE REP 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 Not on file Not on file Not on file documented as of this encounter Last Filed Vital Signs Vital Sign Reading Time Taken Comments Blood Pressure 112/70 12/12/2019 8:02 AM CDT Pulse 91 12/12/2019 8:02 AM CDT Temperature 36.4 ??C (97.5 ??F) 12/12/2019 8:02 AM CD T Respiratory Rate 18 12/12/2019 8:02 AM CDT Oxygen Saturation 97% 12/12/2019 8:02 AM CDT Inhaled Oxygen Concentration - - Weight 62.8 kg (138 lb 6.4 oz) 12/12/2019 8:02 A M CDT Height 157.5 cm (5' 2 ) 12/12/2019 8:02 AM CDT Body Mass Index 25.31 12/12/2019 8:02 AM CDT documented in this encounter Progress Notes * Helena Yu PA - 12/12/2019 8:00 AM CDT Images from the original note were not included. Subjective/Objective Patient ID: Yessy Donaldson is a 64 y.o. female. Chief Complaint Follow-up (on Lt sided sciatica pain) HPI Patient presents for Wellness exam and followup chronic concerns. Mamm 02/2019 Cologuard 11/2018 Tdap UTD Pap 11/2018 Cardio manages Coumadin/mechanical aortic valuve HLD - tolerating statin Mood stable with cymbalta OA -- on Celebrex ---pt aware of the risk of Coumadin with NSAID (B) sciatica. Ended PT in September and didn't really notice much improvement. On celebrex but I can't stop it as it is the only thing helping pain. Reviewed risk with being on Coumadin. She has noted increased bleeding. INR managed by Cardio. Increased stress with caring for Autistic son. Her wants her to quit her job as he has trouble with him during the day Review of Systems Constitutional: Negative for fever. HENT: Negative for congestion. Respiratory: Negative for shortness of breath. Cardiovascular: Negative for chest pain. Gastrointestinal: Negative for constipation and diarrhea. Vitals: 12/12/19 0802 BP: 112/70 BP Location: Left arm Pulse: 91 Resp: 18 Temp: 36.4 ??C (97.5 ??F) TempSrc: Temporal SpO2: 97% Weight: 62.8 kg (138 lb 6.4 oz) Height: 157.5 cm (5' 2 ) Physical Exam Vitals signs and nursing note reviewed. Constitutional: Appearance: She [...] Diagnoses and all orders for this visit: Annual physical exam (Z00.00) (Primary) Assessment & Plan: Encouraged healthy lifestyle, good nutrition and exercise. Encouraged Calcium and Vitamin D and weight bearing exercise for bone health. Reviewed immunizations Reviewed age appropirate screenings. Right sided sciatica (M54.31) Assessment & Plan: This is a significant, separately identifiable problem that was evaluated and managed on the same day as the wellness exam Failed PT. Check Xrays NSAIDs sparingly as risk increased while on Coumadin Topicals/Tylenol Pending xrays, may need MRI Orders: - XR Spine Lumbar 2 or 3 Views; Future Breast cancer screening by mammogram (Z12.31) - Screening Mammogram Bilateral W Thai; Future BMI 25.0-25.9,adult (Z68.25) Assessment & Plan: Weight/BMI is in healthy range. Continue healthy lifestyle to maintain. Breast cancer screening (Z12.39) Assessment & Plan: Mammogram order provided Moderate episode of recurrent major depressive disorder (CMS/HCC) (F33.1) Assessment & Plan: Continue cymbalta. 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 Managed by Cardio Hypercholesteremia (E78.00) Assessment & Plan: Encouraged patient to continue low fat/low chol diet. Continue exercise. Increase good fats in the diet. Monitor labs as needed. Continue statin Helena Yu PA-C documented in this encounter Miscellaneous Notes * Assessment & Plan Note - Helena Yu PA - 12/12/2019 9:10 AM CDT Associated Problem(s): Bilateral sciatica This is a significant, separately identifiable problem that was evaluated and managed on the same day as the wellness exam Failed PT. Check Xrays NSAIDs sparingly as risk increased while on Coumadin Topicals/Tylenol Pending xrays, may need MRI * Assessment & Plan Note - Helena Yu PA - 12/12/2019 9:10 AM CDT Associated Problem(s): BMI 25.0-25.9,adult (Resolved 06/12/2020) Weight/BMI is in healthy range. Continue healthy lifestyle to maintain. * Assessment & Plan Note - Helena Yu PA - 12/12/2019 9:10 AM CDT Associated Problem(s): Breast cancer screening (Deleted) Mammogram order provided * Assessment & Plan Note - Helena Yu PA - 12/12/2019 9:09 AM CDT Associated Problem(s): Moderate episode of recurrent major depressive disorder (HCC) Continue cymbalta. Still a lot of stress, but it is centered round her autistic adult son so difficult to mitigate * Assessment & Plan Note - Helena Yu PA - 12/12/2019 9:09 AM CDT Associated Problem(s): Chronic anticoagulation On coumadin managed by Cardio * Assessment & Plan Note - Helena Yu PA - 12/12/2019 9:09 AM CDT Associated Problem(s): H/O mechanical aortic valve replacement On Coumadin. Managed by Cardio * Assessment & Plan Note - Helena Yu PA - 12/12/2019 9:09 AM CDT Associated Problem(s): Hypercholesteremia (Resolved 12/10/2020) Encouraged patient to continue low fat/low chol diet. Continue exercise. Increase good fats in the diet. Monitor labs as needed. Continue statin * Assessment & Plan Note - Helena Yu PA - 12/11/2019 4:00 PM CDT Associated Problem(s): Annual physical exam Encouraged healthy lifestyle, good nutrition and exercise. Encouraged Calcium and Vitamin D and weight bearing exercise for bone health. Reviewed immunizations Reviewed age appropirate screenings. documented in this encounter Plan of Treatment Not on file documented as of this encounter Procedures Procedure Name Priority Date/Time Associated Diagnosis Comments HM PAP SMEAR WITH HPV Routine 11/17/2018 documented in this encounter Results * Screening Mammogram Bilateral W Thai (02/24/2020) Anatomical Region Laterality Modality Breast Bilateral Mammography Impressions 02/24/2020 Recommend routine F/U in one year. BI-RADS Category 1: negative Helena DAVEY IMG MAMMO PROCEDURES Final Result * XR Spine Lumbar 2 or 3 Views (12/12/2019) Anatomical Region Laterality Modality Spine N/A Radiographic Adriana ging us Helena DAVEY IMMariely XR PROCEDURES Final Re sult * HM PAP SMEAR WITH HPV (11/17/2018) HM Pap smear Normal Narrative Helena Yu PA - 11/17/2018 Neg (atrophic) with negative HPV us Historical Provider HEALTH MAINTENANCE Final Result documented in this encounter Visit Diagnoses Diagnosis Annual physical exam- Primary Routine general medical examination at a health care facility Right sided sciatica Sciatica Breast cancer screening by mammogram BMI 25.0-25.9,adult Moderate episode of recurrent major depressive disorder (HCC) [facility] current 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 therapy H/O mechanical aortic valve replacement Hypercholesteremia Pure hypercholesterolemia Breast cancer screening by mammogram documented in this encounter Discontinued Medications Medication Sig Discontinue Reason Start Date End Da te betamethasone, augmented, (DIPROLENE) 0.05 % ointment 0.05 % daily Therapy completed 04/27/2018 12/12/2019 triamcinolone (KENALOG) 0.1 % ointment 0.1 % 2 (two) times a day Therapy completed 06/28/2018 12/12/2019 documented as of this encounter Care Teams Splitting Machine Feeder Relationship Specialty Start Date End Date Helena Yu PA [address] [address] PCP - General Internal Medicine 09/23/18 07/29/20 documented as of this encounter
--- OUTSIDE RECORDS SUMMARY | 2024-04-01 07:47 | XMS_ITS | Encounter Summary ---
Author Organization [facility] Medical Group Address [address] [place] [address] Care Team Providers Care Stone Polisher Machine Name Role Phone Helena Yu Primary Care Provider [phone]- [phone] Reason for Visit * Cardiology (Routine) - Closed Specialty Diagnoses / Procedures Referred By Contac t Referred To Contact Diagnoses H/O mechanical aortic valve replacement Procedures Transthoracic Echo Complete W Doppler/CF Su Mott NP [address] [facility] [address] [address] Phone: tel: fax: [facility] Medical [facility] Referral ID Status Reason Start Date Expiration Date Visits Re quested Visits Authorized [id number] Closed 12/01/2019 12/30/2020 1 1 Encounter Details Date Type Department Care Team (Late st Contact Info) Description 12/29/2019 8:15 AM CDT Ancillary Procedure [facility] Medical [facility] Cardiology [address] [address] Social History Tobacco Use Types Packs/Day Years [...] on file Legal Sex Female 8:13 AM CAN SORTER Gender Identity Female 06/01/2020 9:42 PM CAN SORTER Sexual Orientation Straight 06/01/2020 9: 42 PM CAN SORTER Occupation Industry Job Start Date Job End Date [employer] Not on file Not on file Not on file documented as of this encounter Last Filed Vital Signs Vital Sign Reading Time Taken Comments Blood Pressure - - Pulse - - Temperature 36.3 ??C (97.3 ??F) 12/29/2019 8:16 AM CD T Respiratory Rate - - Oxygen Saturation - - Inhaled Oxygen Concentration - - Weight - - Height - - Body Mass Index - - documented in this encounter Plan of Treatment Not on file documented as of this encounter Procedures Procedure Name Priority Date/Time Associated Diagnosis Comments TRANSTHORACIC ECHO (TTE) COMPLETE W DOPPLER/CF WO CONTRAST Routine 12/29/2019 9:10 AM CDT H/O mechanical aortic valve replacement documented in this encounter Results * TRANSTHORACIC ECHO (TTE) COMPLETE W DOPPLER/CF WO CONTRAST (12/29/2019 9:10 AM CDT) Anatomical Region Laterality Modality Ultrasound 12/29/2019 8:17 AM CDT Narrative 12/29/2019 12:[address] [facility] Medical Group Cardiology [address] [address] [address], [place] [address] P:[phone] P:[phone] Echocardiographic Report Patient Name: YESSY NIXON : 1955 Study Date: 12/29/2019 8:17:04 AM Gender: F Tech: Location: [place] Ref.Provider: SU MOTT Height(Cm): 157 BSA: 1.63 Weight(Kg): 62.6 Heart Rate: 63 BP: 107/52 Quality: Good Order Provider: SU MOTT Procedures: Echocardiographic Report: Transthoracic echocardiogram with complete 2D, M-Mode, and color Doppler examination. Indications: Aortic Valve Replacement 19. Measurements: 2D/M Mode ?Doppler ? Measurement ?Value ?Normal Range ? Measurement ?Value ?Normal Range ? EF Mod ? 57 ?LYNSEY ?1.11 ? [ 2.00 - 4.00 ] cm2 ? EF MM ?73 ? [ 55 - 70 ] % ?AV Mean PG ? 10 ? mmHg ? LVIDd MM ? 4.93 ? [ 3.90 - 5.30 ] cm ? AV Peak Alvaro ?2.20 ? m/s ? LVIDs MM ? 2.87 ? [ 2.30 - 3.90 ] cm ? AV Peak PG ? 19 ? mmHg ? LVPWd MM ? 0.93 ? [ 0.60 - 1.00 ] cm ? AV VTI ? 0.45 ? cm ? IVSd MM ?0.93 ? [ 0.60 - 0.90 ] cm ? LVOT Diam ?2.02 ? [ 1.70 - 2.10 ] cm ? LA Dimension MM ?3.33 ? [ 2.70 - 3.80 ] cm ? LVOT Peak Alvaro ?0.76 ? [ 0.70 - 1.10 ] m/s ? AoR Diam MM ?2.80 ? [ 2.60 - 3.70 ] cm ? LVOT VTI ? 0.17 ? cm ? LA Volume Index ?15.00 ?[ 16.00 - 28.00 ] cc/m2 ?MV E Peak Alvaro ?0.67 ? [ 0.60 - 1.30 ] m/s ? MV A Peak Alvaro ?0.81 ? [ 0.40 - 0.80 ] m/s ? MV Decel Time ?286 ?[ 150 - 200 ] msec ? PV Peak Alvaro ?0.82 ? [ 0.40 - 0.80 ] m/s ? TR Peak Alvaro ?2.38 ? [ 0.40 - 0.80 ] m/s ? TR Peak PG ? 23 ? mmHg ? RVSP ? 31.00 ?mmHg ? E' ? 0.11 ? E/E' ? 6 ? Findings: Interpretation Site: Exam was interpreted at [facility] [place]. Left Ventricle: Normal left ventricular systolic function. No focal wall motion abnormalities. Normal left ventricular size. Left ventricular wall thickness upper limits of normal. Impaired diastolic relaxation Grade I. Ejection fraction is visually estimated at 55-60 %. Ejection fraction is measured at 57 %. Right Ventricle: Normal right ventricular size. Normal right ventricular systolic function. Left Atrium: The left atrium is normal in size. Right Atrium: The right atrium is normal in size. Atrial Septum: Normal atrial septum. Mitral Valve: Mitral valve leaflets appear mildly thickened. Mild mitral valve regurgitation. There is no hemodynamically significant mitral stenosis by Doppler. Aortic Valve: Moderate aortic stenosis. Peak gradient of 19.0 mmHg. Mean gradient of 10.0 mmHg. Valve area of 1.11 cm2. Mild aortic valve regurgitation. Abnormally appearing aortic valve bioprosthesis. Tricuspid Valve: Normal appearance of the tricuspid valve. Normal right ventricular systolic pressure. Estimated peak RVSP is 31 mmHg. Mild tricuspid regurgitation. Pulmonic Valve: Normal appearance of the pulmonic valve. No pulmonic stenosis. Mild pulmonic regurgitation. Pericardium: Normal pericardium with no significant pericardial effusion. Aorta: Normal aortic root. IVC: Normal size and normal respiratory collapse consistent with normal right atrial pressure (<5 mmHg). Conclusions: Normal left ventricular systolic function. No focal wall motion abnormalities. Normal left ventricular size. Left ventricular wall thickness upper limits of normal. Impaired diastolic relaxation Grade I. Ejection fraction is visually estimated at 55-60 %. Ejection fraction is measured at 57 %. Mild mitral valve regurgitation. Moderate aortic stenosis. Peak gradient of 19.0 mmHg. Mean gradient of 10.0 mmHg. Valve area of 1.11 cm2. Mild aortic valve regurgitation. Abnormally appearing aortic valve bioprosthesis. Mild tricuspid regurgitation. Mild pulmonic regurgitation. Compared with prior echo, no significant change. Normal sinus rhythm. Electronically Signed By: Giuseppe Bullard MD 2019-12-29 12:49:33 CDT Procedure Note Giuseppe Bullard MD - 12/29/2019 [facility] Medical Group Cardiology [address], [place] [address] [address], [place] [address] P:[phone] P:[phone] Echocardiographic Report Patient Name: YESSY NIXONPatient ID: [id number] : [id number] Date: 12/29/2019 8:17:04 AM Gender: FAccession #: [id number] Tech: GMLocation: [place] Ref.Provider: SU MOTTHeight(Cm): 157 BSA: 1.63Weight(Kg): 62.6 Heart Rate: 63BP: 107/52 Quality: GoodOrder Provider: SU MOTT Procedures: Echocardiographic Report: Transthoracic echocardiogram with complete 2D, M-Mode, and color Dopplerexamination. Indications: Aortic Valve Replacement 19. Measurements: 2D/M Mode Doppler Measurement Value Normal Range MeasurementValue Normal Range EF Mod 57 AVA1.11 [ 2.00 - 4.00 ] cm2 EF MM 73 [ 55 - 70 ] % AV Mean PG 10mmHg LVIDd MM 4.93 [ 3.90 - 5.30 ] cm AV Peak Vel2.20 m/s LVIDs MM 2.87 [ 2.30 - 3.90 ] cm AV Peak PG 19mmHg LVPWd MM 0.93 [ 0.60 - 1.00 ] cm AV VTI0.45 cm IVSd MM 0.93 [ 0.60 - 0.90 ] cm LVOT Diam2.02 [ 1.70 - 2.10 ] cm LA Dimension MM 3.33 [ 2.70 - 3.80 ] cm LVOT Peak Vel0.76 [ 0.70 - 1.10 ] m/s AoR Diam MM 2.80 [ 2.60 - 3.70 ] cm LVOT VTI0.17 cm LA Volume Index 15.00 [ 16.00 - 28.00 ] cc/m2 MV E Peak Vel0.67 [ 0.60 - 1.30 ] m/s MV A Peak Vel0.81 [ 0.40 - 0.80 ] m/s MV Decel Hztz857 [ 150 - 200 ] msec PV Peak Vel0.82 [ 0.40 - 0.80 ] m/s TR Peak Vel2.38 [ 0.40 - 0.80 ] m/s TR Peak PG 23mmHg RVSP31.00 mmHg E'0.11 E/E' 6 Findings: Interpretation Site: Exam was interpreted at [facility]. Left Ventricle: Normal left ventricular systolic function. No focal wall motionabnormalities. Normal left ventricular size. Left ventricular wall thickness upper limits ofnormal. Impaired diastolic relaxation Grade I. Ejection fraction is visually estimated at55-60 %. Ejection fraction is measured at 57 %. Right Ventricle: Normal right ventricular size. Normal right ventricular systolicfunction. Left Atrium: The left atrium is normal in size. Right Atrium: The right atrium is normal in size. Atrial Septum: Normal atrial septum. Mitral Valve: Mitral valve leaflets appear mildly thickened. Mild mitral valveregurgitation. There is no hemodynamically significant mitral stenosis by Doppler. Aortic Valve: Moderate aortic stenosis. Peak gradient of 19.0 mmHg. Mean gradient of10.0 mmHg. Valve area of 1.11 cm2. Mild aortic valve regurgitation. Abnormally appearingaortic valve bioprosthesis. Tricuspid Valve: Normal appearance of the tricuspid valve. Normal right ventricularsystolic pressure. Estimated peak RVSP is 31 mmHg. Mild tricuspid regurgitation. Pulmonic Valve: Normal appearance of the pulmonic valve. No pulmonic stenosis. Mildpulmonic regurgitation. Pericardium: Normal pericardium with no significant pericardial effusion. Aorta: Normal aortic root. IVC: Normal size and normal respiratory collapse consistent with normal rightatrial pressure (<5 mmHg). Conclusions: Normal left ventricular systolic function. No focal wall motionabnormalities. Normal left ventricular size. Left ventricular wall thickness upper limits ofnormal. Impaired diastolic relaxation Grade I. Ejection fraction is visually estimated at55-60 %. Ejection fraction is measured at 57 %. Mild mitral valve regurgitation. Moderate aortic stenosis. Peak gradient of 19.0 mmHg. Mean gradient of10.0 mmHg. Valve area of 1.11 cm2. Mild aortic valve regurgitation. Abnormally appearingaortic valve bioprosthesis. Mild tricuspid regurgitation. Mild pulmonic regurgitation. Compared with prior echo, no significant change. Normal sinus rhythm. Electronically Signed By: Giuseppe Bullard MD 2019-12-29 12:49:33 CDT Su Mott NP CV ECHO PROCEDURES Final Result documented in this encounter Visit Diagnoses Not on filedocumented in this encounter Care Teams Stone Polisher Machine Relationship Specialty Start Date End Date Helena Yu PA [address] [facility] [address] [place] [address] PCP - General Internal Medicine 09/23/18 07/29/20 documented as of this encounter
--- OUTSIDE RECORDS SUMMARY | 2024-04-01 07:48 | XMS_ITS | Encounter Summary ---
Author Organization [facility] Medical Group Address [address] [place] [address] Care Team Providers Care Chicken And Fish Butcher Name Role Phone Helena Yu Primary Care Provider +1- [phone] Encounter Details Date Type Department Care Team (Late st Contact Info) Description 11/11/2019 Telephone [facility] Medical Group Cardiology [address] [place] [address] Bindu Gaines MD [address] [place] [address] Social History Tobacco Use Types Packs/Day Years Used Date Smoking Tobacco: Never Smokeless Tobacco: Never Alcohol Use Standard Drinks/Week Comments Yes 1 (1 standard drink = 0.6 oz pur e alcohol) PHQ-2 Answer Date Recorded PHQ-2 Score 1 12/03/2018 Comments Unknown Sex and Gender Information Value Date Recorded Sex Assigned at Not on file Legal Sex Female 8:13 AM AUTOMOTIVE TIRE TECHNICIAN Gender Identity Female 06/01/2020 9:42 PM AUTOMOTIVE TIRE TECHNICIAN Sexual Orientation Straight 06/01/2020 9: 42 PM AUTOMOTIVE TIRE TECHNICIAN 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 Then take a 5 mg tablet. 36 tablet 11/11/2019 12/01/2019 documented in this encounter Miscellaneous Notes * Telephone Encounter - Yary Sultana MA - 11/11/2019 2:49 PM CDT Called patient and verified dose of warfarin. Sent new script to reflect correct sig. * Telephone Encounter - Naa Gómez - 11/11/2019 2:31 PM CDT Pt called to discuss her warfarin 2 mg tabs and getting them refill at pharm. documented in this encounter Plan of Treatment Not on file documented as of this encounter Visit Diagnoses Not on filedocumented in this encounter Discontinued Medications Medication Sig Discontinue Reason Start Date End Da te warfarin (COUMADIN) 2 mg tablet TAKE 1 TABLET BY MOUTH EVERY DAY 11/11/2019 11/11/2019 documented as of this encounter Care Teams Chicken And Fish Butcher Relationship Specialty Start Date End Date Helena Yu PA [address] [facility] [address] [place] [address] PCP - General Internal Medicine 09/23/18 07/29/20 documented as of this encounter
--- OUTSIDE RECORDS SUMMARY | 2024-04-01 07:48 | XMS_ITS | Encounter Summary ---
Author Organization [facility] Medical Group Address [address] [place] [address] Care Team Providers Care Tax Consultant Name Role Phone Helena Yu Primary Care Provider +1- [phone] Encounter Details Date Type Department Care Team (Latest Contact Info) Description 12/05/2019 Anticoagulation Visit [facility] Medical [facility] Cardiology [address] [facility] [address] [place] [id number] Bennett Saavedra RN H/O mechanical aortic valve replacement; intermission coordinator current 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 therapy Social History [...] on file Legal Sex Female 8:13 AM ENVIRONMENTAL SERVICES ATTENDANT Gender Identity Female 06/01/2020 9:42 PM ENVIRONMENTAL SERVICES ATTENDANT Sexual Orientation Straight 06/01/2020 9: 42 PM ENVIRONMENTAL SERVICES ATTENDANT 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
--- OUTSIDE RECORDS SUMMARY | 2024-04-01 07:48 | XMS_ITS | Encounter Summary ---
Author Organization [facility] Address [address] [facility] [address] [place] [address] Care Team Providers Care Line Up Examiner Name Role Phone Helena Yu Primary Care Provider +1- [phone] Reason for Referral * Cardiology (Routine) - Closed Specialty Diagnoses / Procedures Referred By Contac t Referred To Contact Diagnoses H/O mechanical aortic valve replacement Procedures Transthoracic Echo Complete W Doppler/CF Rachel Mott NP [address] [place] [address] Phone: tel: fax: [facility] Referral ID Status Reason Start Date Expiration Date Visits Re quested Visits Authorized [id number] Closed 12/01/2019 12/30/2020 1 1 Reason for Visit * Reason Comments Follow-up yearly follow up on AVR, bicuspid AV, HLD Encounter Details Date Type Department Care Team (Late st Contact Info) Description 12/01/2019 3:00 PM CDT Office Visit [facility] Cardiology [address] [address] Rachel Mott NP [address] [facility] [address] [address] Bicuspid aortic valve; H/O mechanical aortic valve replacement; manager terminal current 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 therapy; Dyslipidemia Social History Tobacco Use Types Packs/Day Years Used Date Smoking Tobacco: Never Smokeless Tobacco: Never Alcohol Use Standard Drinks/Week Comments Yes 1 (1 standard drink = 0.6 oz pur e alcohol) PHQ-2 Answer Date Recorded PHQ-2 Score 1 12/03/2018 Comments Unknown Sex and Gender Information Value Date Recorded Sex Assigned at Not on file Legal Sex Female 8:13 AM TESTER/LIFT TRUCKER Gender Identity Female 06/01/2020 9:42 PM TESTER/LIFT TRUCKER Sexual Orientation Straight 06/01/2020 9: 42 PM TESTER/LIFT TRUCKER 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 on file Not on file Not on file documented as of this encounter Last Filed Vital Signs Vital Sign Reading Time Taken Comments Blood Pressure 114/72 12/01/2019 3:04 PM CDT Pulse 92 12/01/2019 3:04 PM CDT Temperature - - Respiratory Rate - - Oxygen Saturation 97% 12/01/2019 3:04 PM CDT Inhaled Oxygen Concentration - - Weight 64 kg (141 lb) 12/01/2019 3:04 PM CDT Height 157.5 cm (5' 2 ) 12/01/2019 3:04 PM CDT Body Mass Index 25.79 12/01/2019 3:04 PM CDT documented in this encounter Ordered Prescriptions Prescription Sig Dispense Quantity Refills Last Filled Start Date End Date warfarin (COUMADIN) 2 mg tabletIndications:Mec hanical Valve Thromboembolism Prophylaxis Take 2 tabs daily except on Thursday. Then take a 5 mg tablet. 150 tablet 3 12/01/2019 0 documented in this encounter Progress Notes * Rachel Mott NP - 12/01/2019 3:00 PM CDT Images from the original note were not included. [facility] Cardiology [address] [place] [address] Date of Visit: 12/01/2019 Patient ID: Yessy Nixon 1955 Chief Complaint: Yessy Nixon is a 64 y.o. female who is an established patient of Dr. Gaines with a historyof bicuspid aortic valve s/p mechanical aortic valve replacement in 2008. She is returning to the office for annual follow-up. 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 Guthrie in 2008. She is chronically anticoagulated. She is aware of need for SBE antibiotic prophylaxis prior to dental work and nonsterile procedures. 11/10/2016 OV: The patient was last seen in August 2015 doing well. She continues to be active, with noparticular problems with chest pain or TRINH. Fitness class and water aerobics have fallen away afterdisabled son moved back home and broke his leg. No problems with anticoagulation; no bleeding. Cholest 221. 11/10/2017 OV w/ CATALYST OPERATOR RandellMeng: Here for annual visit. No specific complaints or concerns. No changes in her health over the last year. She does notice intermittent TRINH with activities such as walking. She does exercise sometimes doing Dae classes or walking. 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 Denies any bleeding problems. Admits in recent months she has not been followinga very heart healthy diet. 11/15/2018 OV: Doing OOK, son is now living at home so things are crazy sometimes. No heart problems Does cardiac class, gets tired and joints hurt. Also started Dae class. Some LLE edema. Practices dental prophylaxis. NO CP, SOB, dizziness. 12/01/2019 ov with CATALYST OPERATOR Kameron Meng: Here for annual visit. Currently having problems with left-sided sciatica. She has also been dealing with a corneal abrasion. She has noticed swelling in her feet more recently. She seems to notice it in the morning, does not think it gets any worse during the day. Denies any new shortness of breath, orthopnea, PND or bloating. 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 Her son in mid-30's is also severely disabled, and moved into a prison but it didn't work out and now is back home. Her mother, with whom she was not close, April 2012, and her uncle also around that same time. Records that I personally reviewed on the day of this visit include: (the interpretation is outlined in the HPI above) 11/15/[address] Gaines, 12/17/2018 echocardiogram report, today's point of care lipid results. I have also reviewed: allergies, current medications, past family history, past medical history, past social history, past surgical history and problem list Review of Systems Constitution: Negative for diaphoresis, fever, malaise/fatigue, weight gain and weight loss. HENT: Positive for hearing loss. Eyes: Positive for visual disturbance. Cardiovascular: Positive for leg swelling. Negative for chest pain, claudication, dyspnea on exertion, orthopnea, palpitations, paroxysmal nocturnal dyspnea and syncope. Respiratory: Negative for cough, hemoptysis, shortness of breath, snoring and wheezing. Hematologic/Lymphatic: Does not bruise/bleed easily. Skin: Negative for poor wound healing and rash. Musculoskeletal: Positive for joint pain and myalgias. Gastrointestinal: Negative for heartburn, nausea and vomiting. Genitourinary: Negative for hematuria. Neurological: Negative for dizziness, headaches and light-headedness. Psychiatric/Behavioral: Negative for depression. The patient is not nervous/anxious. Vital Signs: BP 114/72 (BP Location: Right arm, Patient Position: Sitting) Pulse 92 Ht 157.5 cm (5' 2 ) Wt64 kg (141 lb) SpO2 97% BMI 25.79 kg/m?? Physical Exam Constitutional: She is oriented to person, place, and time. She appears well- developed and well-nourished. No distress. HENT: Head: Normocephalic and atraumatic. Nose: Nose normal. Wearing a mask Eyes: Pupils are equal, round, and reactive to light. Conjunctivae and EOM are normal. No scleral icterus. Neck: Normal range of motion. No JVD present. No tracheal deviation present. Cardiovascular: Normal rate, regular rhythm and normal heart sounds. No murmur heard. [place] mechanical click, no murmur Pulmonary/Chest: Effort normal and breath sounds normal. No respiratory distress. Abdominal: Soft. Bowel sounds are normal. There is no abdominal tenderness. Musculoskeletal: Normal range of motion. General: No edema. Comments: Very mild bilateral pedal edema Neurological: She is alert and oriented to person, place, and time. Skin: Skin is warm and dry. Psychiatric: She has a normal mood and affect. No Known Allergies Current Outpatient Medications: ??? albuterol HFA (PROAIR HFA) 90 mcg/actuation inhaler, inhale 2 puff by inhalation route every 4 - 6 hours as needed, Disp: , Rfl: 0 ??? aspirin 81 mg tablet, Take one by mouth one time per day, Disp: 0, Rfl: 0 ??? atorvastatin (LIPITOR) 20 mg tablet, TAKE 1 TABLET BY MOUTH EVERY DAY, Disp: 90 tablet, Rfl: 3 ??? betamethasone, augmented, (DIPROLENE) 0.05 % ointment, 0.05 % daily, Disp: , Rfl: ??? celecoxib (CeleBREX) 200 mg capsule, TAKE 1 CAPSULE BY MOUTH EVERY DAY, Disp: 90 capsule, Rfl: 0 ??? DULoxetine DR (CYMBALTA) 60 mg capsule, TAKE 1 CAPSULE BY MOUTH EVERY DAY, Disp: 90 capsule, Rfl: 1 ??? famotidine (PEPCID) 20 mg tablet, take 1 tablet by ORAL route every day, Disp: 0, Rfl: 0 ??? whxywhwip-rxetfyt-xqena acid 400-200-1 mg tablet, Take by mouth, Disp: , Rfl: ??? triamcinolone (KENALOG) 0.1 % ointment, 0.1 % 2 (two) times a day, Disp: , Rfl: ??? warfarin (COUMADIN) 2 mg tablet, Take 2 tabs daily except on Thursday. Then take a 5 mg tablet., Disp: 150 tablet, Rfl: 3 ??? warfarin (COUMADIN) 5 mg tablet, Take 1 tablet (5 mg total) by mouth daily, Disp: 30 tablet, Rfl: 0 Lab Results Component Value Date BUNSER 23 08/31/2012 CREATININE 0.75 08/31/2012 CHOL 227 (H) 08/31/2012 TRIG 133 08/31/2012 LDL 144 (H) 08/31/2012 HDL 56 08/31/201208/2015 cholesterol 221, LDL 146, creatinine 0.7, potassium normal, hematocrit 39 10/2016 POC lipids: TC 230, TG 179, LDL 128, HDL 67 10/2017 POC lipids: TC 243, TG 103, LDL 161, HDL 61 12/01/2019 POC lipids: TC 163, HDL 61, TG 92, LDL 84 Echos: 2008: EF 71%, LVH, diast. dysfxn, LYNSEY 0.5-0.6 cm2, mild AI peak grad 63, mean grad 37 mmHg --> Aortic valve replacement, 19 mm Vici valve 2008: EF 63%, LYNSEY 1.0-1.1 cm2, mean grad 8 mmHg (post-op) 2014: EF 63%, LYNSEY 1.2 cm2, mean grad 13 mmHg. She also has mild asthma. 11/2017 EF 60%, diast dysfxn, EF 60%, LYNSEY 1.5 cm2, mean grad 7 mmHg. 12/2018 EF 60-65%, diast dysfxn, LYNSEY 1.1 cm2, mean grad 6 mmHg, mild AI. Assessment: Diagnoses and all orders for this visit: Bicuspid aortic valve H/O mechanical aortic valve replacement - warfarin (COUMADIN) 2 mg tablet; Take 2 tabs daily except on Thursday. Then take a 5 mg tablet. - Transthoracic Echo Complete W Doppler/CF senior living current 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 therapy Dyslipidemia Plan/Recommendations: On exam, her mechanical aortic valve sounds like it is functioning normally. Some very mild swelling in her feet I reassured her is not cardiac. Because her valve is now 11 years old, I recommend that we repeat her echo annually at this point. Therefore we will schedule a new echo at her convenience. She remains on warfarin for anticoagulation and she is compliant with INR checks. Her point of care lipid panel testing today shows good control of her dyslipidemia with her atorvastatin. We will follow-up with her over the phone about the results of her echo. Otherwise return to the office to see Dr. Gaines in 12 months. Call us sooner with questions or concerns. MELVINA Hough- Nurse Practitioner with [facility] Cardiology This note is dictated and transcribed using [employer] Software. Automobile Upholsterer Apprentice variancesmay occur. Despite proofreading, typographical errors may occur. documented in this encounter Miscellaneous Notes * Addendum Note - Meghna Stone MA - 12/01/2019 3:00 PM CDTAddended by: MEGHNA STONE on: 12/06/2019 09:00 AM Modules accepted: Orders documented in this encounter Plan of Treatment Not on file documented as of this encounter Procedures Procedure Name Priority Date/Time Associated Diagnosis Comments TRANSTHORACIC ECHO (TTE) COMPLETE W DOPPLER/CF WO CONTRAST Routine 12/29/2019 9:10 AM CDT H/O mechanical aortic valve replacement POCT LIPID PANEL Routine 12/01/2019 8:59 AM CDT Dyslipidemia documented in this encounter Results * TRANSTHORACIC ECHO (TTE) COMPLETE W DOPPLER/CF WO CONTRAST (12/29/2019 9:10 AM CDT) Anatomical Region Laterality Modality Ultrasound 12/29/2019 8:17 AM CDT Narrative 12/29/2019 12:49 PM CDT [facility] Cardiology [address] [facility] [address], [place] [address] [address] [facility] [address], [place] [address] P:[phone] P:[phone] Echocardiographic Report Patient Name: YESSY NIXON : 1955 Study Date: 12/29/2019 8:17:04 AM Gender: F Tech: Location: [place] Ref.Provider: RACHEL MOTT Height(Cm): 157 BSA: 1.63 Weight(Kg): 62.6 Heart Rate: 63 BP: 107/52 Quality: Good Order Provider: RACHEL MOTT Procedures: Echocardiographic Report: Transthoracic echocardiogram with [...] Site: Exam was interpreted at [facility]. Left Ventricle: Normal left ventricular systolic function. [...] Procedure Note Giuseppe Bullard MD - 12/29/2019 [facility] Cardiology [address] [facility] [address], [place] [address] [address] [facility] [address], [place] [address] P:[phone] P:[phone] Echocardiographic Report Patient Name: YESSY NIXONPatient ID: [id number] : [id number] Date: 12/29/2019 8:17:04 AM Gender: FAccession #: [id number] Tech: Location: [place] Ref.Provider: RACHEL MOTTHeight(Cm): 157 BSA: 1.63Weight(Kg): 62.6 Heart Rate: 63BP: 107/52 Quality: GoodOrder Provider: RACHEL MOTT Procedures: Echocardiographic Report: Transthoracic echocardiogram with [...] 0.40 - 0.80 ] m/s MV Decel [id number] [ 150 - 200 ] msec PV Peak Vel0.82 [ 0.40 - 0.80 ] m/s TR Peak Vel2.38 [ 0.40 - 0.80 ] m/s TR Peak PG 23mmHg RVSP31.00 mmHg E'0.11 E/E' 6 Findings: Interpretation Site: Exam was interpreted at [facility]. Left Ventricle: Normal left ventricular systolic function. [...] By: Giuseppe Bullard MD 2019-12-29 12:49:33 CDT Rachel Mott NP CV ECHO PROCEDURES Final Result * POCT lipid panel (12/01/2019 8:59 AM CDT) Cholesterol, POC 163 mg/dL HDL, POC 61 mg/dL Triglycerides, POC 92 mg/dL LDL Cholesterol POC 84 mg/dL Chol/HDL Ratio, POC 2.7 Non-HDL Cholesterol, POC 102 mg/dL Cholesterol Total, POC 163 mg/dL Capillary blood 12/01/2019 8 :59 AM CDT Rachel Mott NP POINT OF CARE TEST ORDERA BLES Final Result documented in this encounter Visit Diagnoses Diagnosis Bicuspid aortic valve Congenital insufficiency of aortic valve H/O mechanical aortic valve replacement manager terminal current 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 therapy Dyslipidemia Other and unspecified hyperlipidemia documented in this encounter Discontinued Medications Medication Sig Discontinue Reason Start Date End Da te warfarin (COUMADIN) 2 mg tablet Take 2 tabs daily except on Thursday. Then take a 5 mg tablet. Reorder 11/11/2019 12/01/2019 documented as of this encounter Care Teams Line Up Examiner Relationship Specialty Start Date End Date Helena Yu PA [address] [facility] [address] [place] [address] PCP - General Internal Medicine 09/23/18 07/29/20 documented as of this encounter
--- OUTSIDE RECORDS SUMMARY | 2024-04-01 07:48 | XMS_ITS | Encounter Summary ---
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 [...] on file Legal Sex Female 8:13 AM CROP QUANTITATIVE GENETICIST Gender Identity Female 06/01/2020 9:42 PM CROP QUANTITATIVE GENETICIST Sexual Orientation Straight 06/01/2020 9: 42 PM CROP QUANTITATIVE GENETICIST 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
--- OUTSIDE RECORDS SUMMARY | 2024-04-01 07:49 | XMS_ITS | Encounter Summary ---
Author Organization [facility] Address [address] [facility] [address] [place] [address] Care Team Providers Care Labor Expediter Name Role Phone Helena Yu Primary Care Provider +1- [phone] Encounter Details Date Type Department Care Team (Latest Contact Info) Description 08/15/2019 Anticoagulation Visit [facility] Cardiology [address] [facility] [address] [place] [phone] Bennett Saavedra RN H/O mechanical aortic valve replacement; manager wellness current 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 therapy Social History [...] on file Legal Sex Female 8:13 AM FUR STYLIST Gender Identity Female 06/01/2020 9:42 PM FUR STYLIST Sexual Orientation Straight 06/01/2020 9: 42 PM FUR STYLIST 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
--- OUTSIDE RECORDS SUMMARY | 2024-04-01 07:49 | XMS_ITS | Encounter Summary ---
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 therapy Social History [...] on file Legal Sex Female 8:13 AM COFFEE ATTENDANT Gender Identity Female 06/01/2020 9:42 PM COFFEE ATTENDANT Sexual Orientation Straight 06/01/2020 9: 42 PM COFFEE ATTENDANT 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
--- OUTSIDE RECORDS SUMMARY | 2024-04-01 07:49 | XMS_ITS | Encounter Summary ---
Author Organization [facility] Address [address] [facility] [address] [place] [address] Care Team Providers Care Hospice Bereavement Coordinator Name Role Phone Helena Yu Primary Care Provider +1- [phone] Encounter Details Date Type Department Care Team (Late st Contact Info) Description 06/29/2019 Telephone [facility] Cardiology [address] [place] [address] Bindu Gaines MD [address] [place] [address] Social History Tobacco Use Types Packs/Day Years Used Date Smoking Tobacco: Never Smokeless Tobacco: Never Alcohol Use Standard Drinks/Week Comments Yes 1 (1 standard drink = 0.6 oz pur e alcohol) PHQ-2 Answer Date Recorded PHQ-2 Score 1 12/03/2018 Comments Unknown Sex and Gender Information Value Date Recorded Sex Assigned at Not on file Legal Sex Female 8:13 AM MUSIC PASTOR Gender Identity Female 06/01/2020 9:42 PM MUSIC PASTOR Sexual Orientation Straight 06/01/2020 9: 42 PM MUSIC PASTOR 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 States that she is in a tough spot with insurance right now and is getting INR's drawn at a place called [email or web address]. She will be calling results into us. INR today 2.4. See coumadinflow sheet. * Telephone Encounter - Jane Mcmullen - 06/29/2019 11:54 AM CDT Pt called to give the results of her INR. cb [phone] documented in this encounter Plan of Treatment Not on file documented as of this encounter Visit Diagnoses Not on filedocumented in this encounter Care Teams Hospice Bereavement Coordinator Relationship Specialty Start Date End Date Helena Yu PA [address] [facility] [address] [place] [address] PCP - General Internal Medicine 09/23/18 07/29/20 documented as of this encounter
--- OUTSIDE RECORDS SUMMARY | 2024-04-01 07:49 | XMS_ITS | Encounter Summary ---
Author Organization [facility] Address [address] [facility] [address] [place] [address] Care Team Providers Care Practice Management Consultant Name Role Phone Helena Yu Primary Care Provider +1- [phone] Encounter Details Date Type Department Care Team (Latest Contact Info) Description 10/10/2019 Anticoagulation Visit [facility] Cardiology [address] [place] [address] Huma Trevizo RN H/O mechanical [...] on file Legal Sex Female 8:13 AM ALTERNATIVE EDUCATION TEACHER Gender Identity Female 06/01/2020 9:42 PM ALTERNATIVE EDUCATION TEACHER Sexual Orientation Straight 06/01/2020 9: 42 PM ALTERNATIVE EDUCATION TEACHER 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
--- OUTSIDE RECORDS SUMMARY | 2024-04-01 07:49 | XMS_ITS | Encounter Summary ---
Author Organization [facility] Address [address] [address] Care Team Providers Care Boiler Coverer Name Role Phone Helena Yu Primary Care Provider +1- [phone] Reason for Visit * Reason Onset Date Comments inr standing order for quest faxed 07/28/2019 inr standing order for quest faxed Encounter Details Date Type Department Care Team (Late st Contact Info) Description 07/28/2019 Telephone [facility] Cardiology [address] [address] Bennett Saavedra RN inr standing order for quest faxed (inr standing order for quest faxed) Social History Tobacco Use Types Packs/Day Years Used Date Smoking Tobacco: Never Smokeless Tobacco: Never Alcohol Use Standard Drinks/Week Comments Yes 1 (1 standard drink = 0.6 oz pur e alcohol) PHQ-2 Answer Date Recorded PHQ-2 Score 1 12/03/2018 Comments Unknown Sex and Gender Information Value Date Recorded Sex Assigned at Not on file Legal Sex Female 8:13 AM WALLPAPER CONSULTANT Gender Identity Female 06/01/2020 9:42 PM WALLPAPER CONSULTANT Sexual Orientation Straight 06/01/2020 9: 42 PM WALLPAPER CONSULTANT 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 Not on file Not on file documented as of this encounter Miscellaneous Notes * Telephone Encounter - Bennett Saavedra RN - 07/28/2019 10:39 AM CDT inr standing order for quest faxed to quest documented in this encounter Plan of Treatment Scheduled Orders Name Type Priority Associated Diagnoses Orde r Schedule Protime-INR Lab Routine alf current 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 therapy H/O mechanical aortic valve replacement Bicuspid aortic valve weekly for 52 Occurrences starting 07/28/2019 until 07/27/2020, 11 completed documented as of this encounter Procedures Procedure Name Priority Date/Time Associated Diagnosis Comments PROTIME-INR Routine 07/03/2020 8:04 AM CDT alf current 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 therapy H/O mechanical aortic valve replacement Bicuspid aortic valve PROTIME-INR Routine 06/05/2020 8:45 AM WALLPAPER CONSULTANT alf current 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 therapy H/O mechanical aortic valve replacement Bicuspid aortic valve PROTIME-INR Routine 05/08/2020 7:29 AM WALLPAPER CONSULTANT terminal computer operator current 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 therapy H/O mechanical aortic valve replacement Bicuspid aortic valve PROTIME-INR Routine 02/27/2020 8:04 AM WALLPAPER CONSULTANT alf current 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 therapy H/O mechanical aortic valve replacement Bicuspid aortic valve PROTIME-INR Routine 01/31/2020 6:04 AM CDT terminal computer operator current 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 therapy H/O mechanical aortic valve replacement Bicuspid aortic valve PROTIME-INR Routine 01/03/2020 7:10 AM CDT alf current 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 therapy H/O mechanical aortic valve replacement Bicuspid aortic valve PROTIME-INR Routine 12/05/2019 7:00 AM CDT alf current 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 therapy H/O mechanical aortic valve replacement Bicuspid aortic valve PROTIME-INR Routine 11/07/2019 2:08 PM CDT terminal computer operator current 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 therapy H/O mechanical aortic valve replacement Bicuspid aortic valve PROTIME-INR Routine 10/10/2019 7:53 AM CDT terminal computer operator current 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 therapy H/O mechanical aortic valve replacement Bicuspid aortic valve PROTIME-INR Routine 09/12/2019 6:54 AM CDT terminal computer operator current 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 therapy H/O mechanical aortic valve replacement Bicuspid aortic valve PROTIME-INR Routine 08/15/2019 8:27 AM CDT terminal computer operator current 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 therapy H/O mechanical aortic valve replacement Bicuspid aortic valve documented in this encounter Results * (ABNORMAL) Protime-INR (07/03/2020 8:04 AM CDT) INR 3.5(H) [facility] Comment: Reference Range ? 0.9-1.1 Moderate-intensity Warfarin Therapy 2.0-3.0 Higher-intensity Warfarin Therapy ?? 3.0-4.0 PT 32.9(H) 9.0 - 11.5 sec [facility] Comment: For additional information, please refer to http://education.NovaSparks/faq/BKV631 (This link is being provided for informational/ educational purposes only.) Blood specimen (specimen) 07/03/2020 8:04 AM CDT 07/03/2020 8:05 AM CDT Bindu Gaines MD LAB BLOOD ORDERABLES Final Result [facility] [address] [place] [address] * (ABNORMAL) Protime-INR (06/05/2020 8:45 AM WALLPAPER CONSULTANT) INR 2.9(H) [facility] [employer] [facility] Comment: Reference Range ? 0.9-1.1 Moderate-intensity Warfarin Therapy 2.0-3.0 Higher-intensity Warfarin Therapy ?? 3.0-4.0 PT 28.2(H) 9.0 - 11.5 sec [facility] Comment: For additional information, please refer to http://PowerDMS.NovaSparks/faq/ZAX409 (This link is being provided for informational/ educational purposes only.) Blood specimen (specimen) 06/05/2020 8:45 AM WALLPAPER CONSULTANT 06/05/2020 8:46 AM WALLPAPER CONSULTANT Result [facility] Bindu Gaines MD LAB BLOOD ORDERABLES Final Result Performing Organization Address [facility] Co de Phone Number [facility] [address] [place] [address] * (ABNORMAL) Protime-INR (05/08/2020 7:29 AM WALLPAPER CONSULTANT) INR 3.2(H) [facility] Comment: Reference Range ? 0.9-1.1 Moderate-intensity Warfarin Therapy 2.0-3.0 Higher-intensity Warfarin Therapy ?? 3.0-4.0 PT 30.2(H) 9.0 - 11.5 sec [facility] Comment: For additional information, please refer to http://PowerDMS.NovaSparks/faq/DBT100 (This link is being provided for informational/ educational purposes only.) Blood specimen (specimen) 05/08/2020 7:29 AM WALLPAPER CONSULTANT 05/08/2020 7:30 AM WALLPAPER CONSULTANT Result [facility] Bindu Gaines MD LAB BLOOD ORDERABLES Final Result Performing Organization Address [facility] de Phone Number [facility] [address] [place] [address] * (ABNORMAL) Protime-INR (02/27/2020 8:04 AM WALLPAPER CONSULTANT) INR 5.5(H) [facility] Comment: Verified by repeat analysis. Reference Range ? 0.9-1.1 Moderate-intensity Warfarin Therapy 2.0-3.0 Higher-intensity Warfarin Therapy ?? 3.0-4.0 PT 50.3(H) 9.0 - 11.5 sec [facility] Comment: Verified by repeat analysis. For additional information, please refer to http://PowerDMS.NovaSparks/faq/OOU487 (This link is being provided for informational/ educational purposes only.) Blood specimen (specimen) 02/27/2020 8:04 AM WALLPAPER CONSULTANT 02/27/2020 8:05 AM WALLPAPER CONSULTANT Bindu Gaines MD LAB BLOOD ORDERABLES Final Result Performing Organization Address [facility] de Phone Number [facility] [address] [place] [address] * (ABNORMAL) Protime-INR (01/31/2020 6:04 AM CDT) INR 3.8(H) [facility] Comment: Reference Range ? 0.9-1.1 Moderate-intensity Warfarin Therapy 2.0-3.0 Higher-intensity Warfarin Therapy ?? 3.0-4.0 PT 36.0(H) 9.0 - 11.5 sec [facility] Comment: For additional information, please refer to http://PowerDMS.NovaSparks/faq/HHL143 (This link is being provided for informational/ educational purposes only.) Blood specimen (specimen) 01/31/2020 6:04 AM CDT 01/31/2020 6:05 AM CDT Bindu Gaines MD LAB BLOOD ORDERABLES Final Result Performing Organization Address [facility] Co de Phone Number [facility] [address] [place] [address] * (ABNORMAL) Protime-INR (01/03/2020 7:10 AM CDT) INR 3.3(H) [facility] Comment: Reference Range ? 0.9-1.1 Moderate-intensity Warfarin Therapy 2.0-3.0 Higher-intensity Warfarin Therapy ?? 3.0-4.0 PT 33.5(H) 9.0 - 11.5 sec [facility] Comment: For more information on this test, go to: http://PowerDMS.NovaSparks/faq/LVB578 Blood specimen (specimen) 01/03/2020 7:10 AM CDT 01/03/2020 7:10 AM CDT Bindu Gaines MD LAB BLOOD ORDERABLES Final Result Performing Organization Address [facility] de Phone Number [facility] [address] [place] [address] * (ABNORMAL) Protime-INR (12/05/2019 7:00 AM CDT) INR 3.5(H) [facility] Comment: Reference Range ? 0.9-1.1 Moderate-intensity Warfarin Therapy 2.0-3.0 Higher-intensity Warfarin Therapy ?? 3.0-4.0 PT 36.6(H) 9.0 - 11.5 sec [facility] Comment: For more information on this test, go to: http://PowerDMS.NovaSparks/faq/GVE686 Blood specimen (specimen) 12/05/2019 7:00 AM CDT 12/05/2019 7:00 AM CDT Bindu Gaines MD LAB BLOOD ORDERABLES Final Result Performing Organization Address [facility] de Phone Number [facility] [address] [place] [address] * (ABNORMAL) Protime-INR (11/07/2019 2:08 PM CDT) INR 3.1(H) [facility] Comment: Reference Range ? 0.9-1.1 Moderate-intensity Warfarin Therapy 2.0-3.0 Higher-intensity Warfarin Therapy ?? 3.0-4.0 PT 30.4(H) 9.0 - 11.5 sec [facility] Comment: For more information on this test, go to: http://PowerDMS.NovaSparks/faq/LKL421 Blood specimen (specimen) 11/07/2019 2:08 PM CDT 11/07/2019 2:08 PM CDT us Bindu Gaines MD LAB BLOOD ORDERABLES Final Result [facility] [address] [place] [address] * (ABNORMAL) Protime-INR (10/10/2019 7:53 AM CDT) INR 2.7(H) [facility] Comment: Reference Range ? 0.9-1.1 Moderate-intensity Warfarin Therapy 2.0-3.0 Higher-intensity Warfarin Therapy ?? 3.0-4.0 PT 28.2(H) 9.0 - 11.5 sec [facility] Comment: For more information on this test, go to: http://PowerDMS.NovaSparks/faq/LTC895 Blood specimen (specimen) 10/10/2019 7:53 AM CDT 10/10/2019 7:54 AM CDT us Bindu Gaines MD LAB BLOOD ORDERABLES Final Result [facility] [address] [place] [address] * (ABNORMAL) Protime-INR (09/12/2019 6:54 AM CDT) INR 3.5(H) [facility] Comment: Reference Range ? 0.9-1.1 Moderate-intensity Warfarin Therapy 2.0-3.0 Higher-intensity Warfarin Therapy ?? 3.0-4.0 PT 36.7(H) 9.0 - 11.5 sec [facility] Comment: For more information on this test, go to: http://PowerDMS.NovaSparks/faq/NNJ148 Blood specimen (specimen) 09/12/2019 6:54 AM CDT 09/12/2019 6:56 AM CDT Bindu Gaines MD LAB BLOOD ORDERABLES Final Result Performing Organization Address City/[facility] de Phone Number [facility] [address] [place] [address] * (ABNORMAL) Protime-INR (08/15/2019 8:27 AM CDT) INR 2.9(H) [facility] Comment: Reference Range ? 0.9-1.1 Moderate-intensity Warfarin Therapy 2.0-3.0 Higher-intensity Warfarin Therapy ?? 3.0-4.0 PT 30.3(H) 9.0 - 11.5 sec [facility] Comment: For more information on this test, go to: http://PowerDMS.NovaSparks/faq/KTB504 Blood specimen (specimen) 08/15/2019 8:27 AM CDT 08/15/2019 8:28 AM CDT Narrative Resulting Agency Comment Performing Organization Information: ?Site ID: ?Name: [facility] ?Address: [address] [place] [address] ?Director: Adilson Hameed Bindu Gaines MD LAB BLOOD ORDERABLES Final Result [facility] [place] documented in this encounter Visit Diagnoses Diagnosis terminal computer operator current 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 therapy- Primary H/O mechanical aortic valve replacement Bicuspid aortic valve Congenital insufficiency of aortic valve documented in this encounter Care Teams Boiler Coverer Relationship Specialty Start Date End Date Helena Yu PA [address] [facility] [address] [place] [address] PCP - General Internal Medicine 09/23/18 07/29/20 documented as of this encounter
--- OUTSIDE RECORDS SUMMARY | 2024-04-01 07:49 | XMS_ITS | Encounter Summary ---
Author Organization [facility] Address [address] [facility] [address] [place] [address] Care Team Providers Care Eligibility Specialist Name Role Phone Helena Yu Primary Care Provider +1- [phone] Encounter Details Date Type Department Care Team (Latest Contact Info) Description 07/18/2019 Anticoagulation Visit [facility] Medical [facility] Cardiology [address] [facility] [address] [place] [address] Bennett Saavedra RN H/O mechanical aortic valve replacement; termite [...] on file Legal Sex Female 8:13 AM BRASS CLEANER Gender Identity Female 06/01/2020 9:42 PM BRASS CLEANER Sexual Orientation Straight 06/01/2020 9: 42 PM BRASS CLEANER 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
--- OUTSIDE RECORDS SUMMARY | 2024-04-01 07:49 | XMS_ITS | Encounter Summary ---
Author Organization [facility] Address [address] 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 current 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 therapy Social History [...] on file Legal Sex Female 8:13 AM EGG PRODUCER Gender Identity Female 06/01/2020 9:42 PM EGG PRODUCER Sexual Orientation Straight 06/01/2020 9: 42 PM EGG PRODUCER 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 on file Not on file documented as of this encounter Plan of Treatment Not on file documented as of this encounter Procedures Procedure Name Priority Date/Time Associated Diagnosis Comments PROTIME-INR Routine 06/28/2019 documented in this encounter Results * (ABNORMAL) Protime-INR (06/28/2019) INR 2.40(A) 0.9 - 1.1 [facility] Blood specimen (specimen) us Historical Provider LAB BLOOD ORDERABLES Antonina hernandez Result [facility] documented in this encounter Visit Diagnoses Diagnosis H/O mechanical aortic valve replacement detention current 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 Care Teams Meter Inspector Relationship Specialty Start Date End Date Helena Yu PA [address] [address] PCP - General Internal Medicine 09/23/18 07/29/20 documented as of this encounter
--- OUTSIDE RECORDS SUMMARY | 2024-04-01 07:49 | XMS_ITS | Encounter Summary ---
Author Organization [facility] Address [address] [facility] [address] [facility] [address] [place] [address] Care Team Providers Care Analytic Programmer Name Role Phone Helena Yu Primary Care Provider +1- [phone] Encounter Details Date Type Department Care Team (Late st Contact Info) Description 09/19/2019 Telephone [facility] Medical [facility] Cardiology [address] [phone] [place] [address] [place] [address] [address] [place] [address] Social History Tobacco Use Types Packs/Day Years Used Date Smoking Tobacco: Never Smokeless Tobacco: Never Alcohol Use Standard Drinks/Week Comments Yes 1 (1 standard drink = 0.6 oz pur e alcohol) PHQ-2 Answer Date Recorded PHQ-2 Score 1 12/03/2018 Comments Unknown Sex and Gender Information Value Date Recorded Sex Assigned at Not on file Legal Sex Female 8:13 AM AQUATICS ASSISTANT DEPARTMENT HEAD Gender Identity Female 06/01/2020 9:42 PM AQUATICS ASSISTANT DEPARTMENT HEAD Sexual Orientation Straight 06/01/2020 9: 42 PM AQUATICS ASSISTANT DEPARTMENT HEAD 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 * Telephone Encounter - Carleen Espinoza - 09/19/2019 12:28 PM CDT Patient would like a refill on her Warfarin from the [facility] in [place]. documented in this encounter Plan of Treatment Not on file documented as of this encounter Visit Diagnoses Not on filedocumented in this encounter Care Teams Analytic Programmer Relationship Specialty Start Date End Date Helena Yu PA [address] [facility] [address] [place] [address] PCP - General Internal Medicine 09/23/18 07/29/20 documented as of this encounter
--- OUTSIDE RECORDS SUMMARY | 2024-04-01 07:49 | XMS_ITS | Encounter Summary ---
Author Organization [facility] Address [address] [facility] [address] [place] [address] Care Team Providers Care Instrumental Teacher Name Role Phone Helena Yu Primary Care Provider +1- [phone] Encounter Details Date Type Department Care Team (Latest Contact Info) Description 06/13/2019 Anticoagulation Visit [facility] Medical [facility] Cardiology [address] [facility] [address], [place] [address] Bindu Gaines MD [address] [address] H/O mechanical aortic valve replacement; alf current 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 therapy Social History [...] file Legal Sex Female 8:13 AM HOME ENERGY CONSULTANT Gender Identity Female 06/01/2020 9:42 PM HOME ENERGY CONSULTANT Sexual Orientation Straight 06/01/2020 9: 42 PM HOME ENERGY CONSULTANT 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
--- OUTSIDE RECORDS SUMMARY | 2024-04-01 07:49 | XMS_ITS | Encounter Summary ---
Author Organization [facility] Address [address] [facility] [address] [place] [address] Care Team Providers Care Housecleaner Floor Name Role Phone Helena Yu Primary Care Provider +1- [phone] Encounter Details Date Type Department Care Team (Late st Contact Info) Description 07/18/2019 Orders Only [facility] Medical [facility] Cardiology [address] [facility] [address], [place] [address] Bindu Gaines MD [address] [address] Social History Tobacco Use Types Packs/Day Years Used Date Smoking Tobacco: Never Smokeless Tobacco: Never Alcohol Use Standard Drinks/Week Comments Yes 1 (1 standard drink = 0.6 oz pur e alcohol) PHQ-2 Answer Date Recorded PHQ-2 Score 1 12/03/2018 Comments Unknown Sex and Gender Information Value Date Recorded Sex Assigned at Not on file Legal Sex Female 8:13 AM DIAL PRINTER Gender Identity Female 06/01/2020 9:42 PM DIAL PRINTER Sexual Orientation Straight 06/01/2020 9: 42 PM DIAL PRINTER 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 Hemolysis may alter prothrombin/ activated partial thromboplastin time results. Evaluate with caution. Reference Range ? 0.9-1.1 Moderate-intensity Warfarin Therapy 2.0-3.0 Higher-intensity Warfarin Therapy ?? 3.0-4.0 PT 29.8(H) 9.0 - 11.5 sec [facility] - Comment: For more information on this test, go to: http://education.Urbita/faq/HOG671 07/18/2019 6:47 AM CDT 07/18/2019 6:48 AM CDT Narrative Resulting Agency Comment Performing Organization Information: ?Site ID: ?[facility] ?Address: [facility] [place] [address] ?Director: Adilson Hameed us Bindu Gaines MD LAB BLOOD ORDERABLES Final Result [facility] [place], [place] documented in this encounter Visit Diagnoses Not on filedocumented in this encounter Care Teams Housecleaner Floor Relationship Specialty Start Date End Date Helena Yu PA [address] [facility] [address] [place] [address] PCP - General Internal Medicine 09/23/18 07/29/20 documented as of this encounter
--- OUTSIDE RECORDS SUMMARY | 2024-04-01 07:49 | XMS_ITS | Encounter Summary ---
Author Organization [facility] Address [address] [place] [address] Care Team Providers Care Neck Band Operator Name Role Phone Helena Yu Primary Care Provider +1- [phone] Encounter Details Date Type Department Care Team (Late st Contact Info) Description 08/11/2019 Telephone [facility] Family Medicine [address] [place] [address] Helena Yu PA [address] [place] [address] Social History Tobacco Use Types Packs/Day Years Used Date Smoking Tobacco: Never Smokeless Tobacco: Never Alcohol Use Standard Drinks/Week Comments Yes 1 (1 standard drink = 0.6 oz pur e alcohol) PHQ-2 Answer Date Recorded PHQ-2 Score 1 12/03/2018 Comments Unknown Sex and Gender Information Value Date Recorded Sex Assigned at Not on file Legal Sex Female 8:13 AM GUNSTOCK SPRAY UNIT FEEDER Gender Identity Female 06/01/2020 9:42 PM GUNSTOCK SPRAY UNIT FEEDER Sexual Orientation Straight 06/01/2020 9: 42 PM GUNSTOCK SPRAY UNIT FEEDER 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 She is having muscle pain in shoulders, legs, back,and knees. Her hip area is bothering her, she isn't having sciatica now. She would like a PT order for next door. ----- Message ----- From: PETAR Souza Sent: 08/09/2019 2:58 PM CDT To: [facility] Subject: Referral Request ----- Message ----- From: Monet Irwin MA Sent: 08/08/2019 3:47 PM CDT To: PETAR Souza Subject: Referral Request See patient message ----- Message ----- From: Yessy Donaldson Sent: 08/08/2019 3:45 PM CDT To: [facility] Clinical Subject: Referral Request Wondering if you know of any good Rheumatologists in [place]. Had an issue with sciatica a couple days @work several weeks ago and won't be surprised if it happens again. Or pain management.....The meds aren't totally kicking it. Thanks, Emani Donaldson documented in this encounter Plan of Treatment Not on file documented as of this encounter Visit Diagnoses Diagnosis Low back pain, unspecified back pain laterality, unspecified chronicity, unspecified whether sciatica present- Primary documented in this encounter Care Teams Neck Band Operator Relationship Specialty Start Date End Date Helena Yu PA [address] [facility] [address] [place] [address] PCP - General Internal Medicine 09/23/18 07/29/20 documented as of this encounter
--- OUTSIDE RECORDS SUMMARY | 2024-04-01 07:50 | XMS_ITS | Encounter Summary ---
Author Organization [facility] Address [address] [place] [address] Care Team Providers Care Boatswains Mate Name Role Phone Helena Yu Primary Care Provider +1- [phone] Reason for Visit * Reason Onset Date Comments Epistaxis (Nose Bleed) 05/28/2019 Encounter Details Date Type Department Care Team (Late st Contact Info) Description 05/28/2019 Telephone [facility] Cardiac Catheterization Lab [address] [place] [address] Bindu Gaines MD [address] [place] [id number] Epistaxis (Nose Bleed) Social History Tobacco Use Types Packs/Day Years Used Date Smoking Tobacco: Never Smokeless Tobacco: Never Alcohol Use Standard Drinks/Week Comments Yes 1 (1 standard drink = 0.6 oz pur e alcohol) PHQ-2 Answer Date Recorded PHQ-2 Score 1 12/03/2018 Comments Unknown Sex and Gender Information Value Date Recorded Sex Assigned at Not on file Legal Sex Female 8:13 AM HEAT TREAT SUPERVISOR Gender Identity Female 06/01/2020 9:42 PM HEAT TREAT SUPERVISOR Sexual Orientation Straight 06/01/2020 9: 42 PM HEAT TREAT SUPERVISOR 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 TREAT SUPERVISOR * Telephone Encounter - Bindu Gaines MD - 05/28/2019 7:59 PM HEAT TREAT SUPERVISOR Patient on warfarin for aortic valve replacement went to ER for epistaxis, had nasal packing. INR was 4.6. No new medications. We decided to a hold warfarin today, take 2 mg Thursday, and start with 4 mg daily on Thursday, obtain an INR on Thursday. TREAT SUPERVISOR documented in this encounter Plan of Treatment Not on file documented as of this encounter Visit Diagnoses Not on filedocumented in this encounter Care Teams Boatswains Mate Relationship Specialty Start Date End Date Helena Yu PA [address] [facility] [address] [place] [address] PCP - General Internal Medicine 09/23/18 07/29/20 documented as of this encounter
--- OUTSIDE RECORDS SUMMARY | 2024-04-01 07:50 | XMS_ITS | Encounter Summary ---
Author Organization [facility] Address [address] [place] [address] Care Team Providers Care Radio Sportscaster Name Role Phone Helena Yu Primary Care Provider +1- [phone] Encounter Details Date Type Department Care Team (Latest Contact Info) Description 03/17/2019 Anticoagulation Visit [facility] [address] 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
--- OUTSIDE RECORDS SUMMARY | 2024-04-01 07:50 | XMS_ITS | Encounter Summary ---
Author Organization [facility] Care Team Providers Care Cloth Handler Name Role Phone Helena Yu Primary Care Provider +1- [phone] Encounter Details Date Type Department Care Team (Latest Contact Info) Description 05/30/2019 Travel Social History Tobacco Use Types Packs/Day Years Used Date Smoking Tobacco: Never Smokeless Tobacco: Never Alcohol Use Standard Drinks/Week Comments Yes 1 (1 standard drink = 0.6 oz pur e alcohol) PHQ-2 Answer Date Recorded PHQ-2 Score 1 12/03/2018 Comments Unknown Sex and Gender Information Value Date Recorded Sex Assigned at Not on file Legal Sex Female 8:13 AM ASSISTANT ACCOUNTING MANAGER Gender Identity Female 06/01/2020 9:42 PM ASSISTANT ACCOUNTING MANAGER Sexual Orientation Straight 06/01/2020 9: 42 PM ASSISTANT ACCOUNTING MANAGER 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
--- OUTSIDE RECORDS SUMMARY | 2024-04-01 07:50 | XMS_ITS | Encounter Summary ---
Author Organization [facility] Address [address] [place] [address] Care Team Providers Care Clinical Nursing Instructor Name Role Phone Helena Yu Primary Care Provider +1- [phone] Encounter Details Date Type Department Care Team (Late st Contact Info) Description 05/31/2019 Orders Only [facility] Medical [facility] Cardiology [address] [facility] [address] [address] Bindu Gaines MD [address] [address] Social History Tobacco Use Types Packs/Day Years Used Date Smoking Tobacco: Never Smokeless Tobacco: Never Alcohol Use Standard Drinks/Week Comments Yes 1 (1 standard drink = 0.6 oz pur e alcohol) PHQ-2 Answer Date Recorded PHQ-2 Score 1 12/03/2018 Comments Unknown Sex and Gender Information Value Date Recorded Sex Assigned at Not on file Legal Sex Female 8:13 AM METAPHYSICIST Gender Identity Female 06/01/2020 9:42 PM METAPHYSICIST Sexual Orientation Straight 06/01/2020 9: 42 PM METAPHYSICIST 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 0.9-1.1 Moderate-intensity Warfarin Therapy 2.0-3.0 Higher-intensity Warfarin Therapy ?? 3.0-4.0 PT 21.4(H) 9.0 - 11.5 sec [facility] Comment: For more information on this test, go to: http://education.D[employer]O [employer]/faq/SKI871 05/31/2019 6:46 AM METAPHYSICIST 05/31/2019 6:48 AM METAPHYSICIST Narrative Resulting Agency Comment Performing Organization Information: ?Site ID: ?Name: [facility] ?Address: [facility] [place] [address] ?Director: Adilson Hameed us Bindu Gaines MD LAB BLOOD ORDERABLES Final Result [facility] [place] documented in this encounter Visit Diagnoses Not on filedocumented in this encounter Care Teams Clinical Nursing Instructor Relationship Specialty Start Date End Date Helena Yu PA [address] [place] [address] PCP - General Internal Medicine 09/23/18 07/29/20 documented as of this encounter
--- OUTSIDE RECORDS SUMMARY | 2024-04-01 07:50 | XMS_ITS | Encounter Summary ---
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 current 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 therapy Social [...] on file Legal Sex Female 8:13 AM PER DIEM NURSE Gender Identity Female 06/01/2020 9:42 PM PER DIEM NURSE Sexual Orientation Straight 06/01/2020 9: 42 PM PER DIEM NURSE 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
--- OUTSIDE RECORDS SUMMARY | 2024-04-01 07:50 | XMS_ITS | Encounter Summary ---
Author Organization [facility] Address [address] [facility] [address] [place] [address] Care Team Providers Care Tennis Court Attendant Name Role Phone Helena Yu Primary Care Provider +1- [phone] Encounter Details Date Type Department Care Team (Late st Contact Info) Description 04/25/2019 Orders Only [facility] Medical [facility] Cardiology [address] [address] Bindu Gaines MD [address] [address] Social History Tobacco Use Types Packs/Day Years Used Date Smoking Tobacco: Never Smokeless Tobacco: Never Alcohol Use Standard Drinks/Week Comments Yes 1 (1 standard drink = 0.6 oz pur e alcohol) PHQ-2 Answer Date Recorded PHQ-2 Score 1 12/03/2018 Comments Unknown Sex and Gender Information Value Date Recorded Sex Assigned at Not on file Legal Sex Female 8:13 AM TAILOR APPRENTICE Gender Identity Female 06/01/2020 9:42 PM TAILOR APPRENTICE Sexual Orientation Straight 06/01/2020 9: 42 PM TAILOR APPRENTICE 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 0.9-1.1 Moderate-intensity Warfarin Therapy 2.0-3.0 Higher-intensity Warfarin Therapy ?? 3.0-4.0 PT 22.1(H) 9.0 - 11.5 sec [facility] Comment: For more information on this test, go to: http://education.Oppex/faq/VJX531 04/25/2019 8:23 AM TAILOR APPRENTICE 04/25/2019 8:24 AM TAILOR APPRENTICE Narrative Resulting Agency Comment Performing Organization Information: ?Site ID: ?Name: [facility] ?Address: [facility] [place] [address] ?Director: Adilson Hameed us Bindu Gaines MD LAB BLOOD ORDERABLES Final Result [facility] [place] documented in this encounter Visit Diagnoses Not on filedocumented in this encounter Care Teams Tennis Court Attendant Relationship Specialty Start Date End Date Helena Yu PA [address] [address] [place] [address] PCP - General Internal Medicine 09/23/18 07/29/20 documented as of this encounter
--- OUTSIDE RECORDS SUMMARY | 2024-04-01 07:50 | XMS_ITS | Encounter Summary ---
Author Organization [facility] Address [address] [place] [address] Care Team Providers Care Radar Operator Name Role Phone Helena Yu Primary Care Provider +1- [phone] Encounter Details Date Type Department Care Team (Late st Contact Info) Description 06/11/2019 Orders Only [facility] Medical [facility] Cardiology [address] [facility] [address] [address] Bindu Gaines MD [address] [address] Social History Tobacco Use Types Packs/Day Years Used Date Smoking Tobacco: Never Smokeless Tobacco: Never Alcohol Use Standard Drinks/Week Comments Yes 1 (1 standard drink = 0.6 oz pur e alcohol) PHQ-2 Answer Date Recorded PHQ-2 Score 1 12/03/2018 Comments Unknown Sex and Gender Information Value Date Recorded Sex Assigned at Not on file Legal Sex Female 8:13 AM TRAINING DIRECTOR Gender Identity Female 06/01/2020 9:42 PM TRAINING DIRECTOR Sexual Orientation Straight 06/01/2020 9: 42 PM TRAINING DIRECTOR 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 0.9-1.1 Moderate-intensity Warfarin Therapy 2.0-3.0 Higher-intensity Warfarin Therapy ?? 3.0-4.0 PT 28.0(H) 9.0 - 11.5 sec [facility] Comment: For more information on this test, go to: http://education.Talents Garden/faq/KFC447 06/11/2019 8:17 AM TRAINING DIRECTOR 06/11/2019 8:18 AM TRAINING DIRECTOR Narrative Resulting Agency Comment Performing Organization Information: ?Site ID: [id number] ?Name: [facility] ?Address: [address] [place] [address] [place] [address] ?Director: Sal Jason D.O., MPH us Bindu Gaines MD LAB BLOOD ORDERABLES Final Result [facility] [place] documented in this encounter Visit Diagnoses Not on filedocumented in this encounter Care Teams Radar Operator Relationship Specialty Start Date End Date Helena Yu PA [address] [facility] [address] [place] [address] PCP - General Internal Medicine 09/23/18 07/29/20 documented as of this encounter
--- OUTSIDE RECORDS SUMMARY | 2024-04-01 07:50 | XMS_ITS | Encounter Summary ---
Author Organization [facility] Address [address] [place] [address] Care Team Providers Care Weed Sprayer Name Role Phone Helena Yu Primary Care Provider +1- [phone] Encounter Details Date Type Department Care Team (Late st Contact Info) Description 04/14/2019 Orders Only [facility] Cardiology [address] [facility] [facility] [address], [place] [address] Bindu Gaines MD [address] [address] Social History Tobacco Use Types Packs/Day Years Used Date Smoking Tobacco: Never Smokeless Tobacco: Never Alcohol Use Standard Drinks/Week Comments Yes 1 (1 standard drink = 0.6 oz pur e alcohol) PHQ-2 Answer Date Recorded PHQ-2 Score 1 12/03/2018 Comments Unknown Sex and Gender Information Value Date Recorded Sex Assigned at Not on file Legal Sex Female 8:13 AM PARACHUTE TAPER Gender Identity Female 06/01/2020 9:42 PM PARACHUTE TAPER Sexual Orientation Straight 06/01/2020 9: 42 PM PARACHUTE TAPER 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 0.9-1.1 Moderate-intensity Warfarin Therapy 2.0-3.0 Higher-intensity Warfarin Therapy ?? 3.0-4.0 PT 40.4(H) 9.0 - 11.5 sec [facility] Comment: For more information on this test, go to: http://education.Just Fab/faq/FWO724 04/14/2019 6:38 AM PARACHUTE TAPER 04/14/2019 6:38 AM PARACHUTE TAPER Narrative Resulting Agency Comment Performing Organization Information: ?Site ID: ?Name: [facility] ?Address: [facility] [place] [address] ?Director: Adilson Hameed us Bindu Gaines MD LAB BLOOD ORDERABLES Final Result [facility] [place] documented in this encounter Visit Diagnoses Not on filedocumented in this encounter Care Teams Weed Sprayer Relationship Specialty Start Date End Date Helena Yu PA [address] [place] [address] PCP - General Internal Medicine 09/23/18 07/29/20 documented as of this encounter
--- OUTSIDE RECORDS SUMMARY | 2024-04-01 07:50 | XMS_ITS | Encounter Summary ---
Author Organization [facility] Address [address] [facility] [address] [place] [address] Care Team Providers Care Safety Lead Name Role Phone Helena Yu Primary Care Provider +1- [phone] Encounter Details Date Type Department Care Team (Late st Contact Info) Description 03/16/2019 Orders Only [facility] [address] [facility] [address], [place] [address] Bindu Gaines MD [address] [address] Social History Tobacco Use Types Packs/Day Years Used Date Smoking Tobacco: Never Smokeless Tobacco: Never Alcohol Use Standard Drinks/Week Comments Yes 1 (1 standard drink = 0.6 oz pur e alcohol) PHQ-2 Answer Date Recorded PHQ-2 Score 1 12/03/2018 Comments Unknown Sex and Gender Information Value Date Recorded Sex Assigned at Not on file Legal Sex Female 8:13 AM INSURANCE PLAN SPECIALIST Gender Identity Female 06/01/2020 9:42 PM INSURANCE PLAN SPECIALIST Sexual Orientation Straight 06/01/2020 9: 42 PM INSURANCE PLAN SPECIALIST 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 0.9-1.1 Moderate-intensity Warfarin Therapy 2.0-3.0 Higher-intensity Warfarin Therapy ?? 3.0-4.0 PT 33.0(H) 9.0 - 11.5 sec [facility] Comment: For more information on this test, go to: http://education.LangoLab/faq/XNJ735 03/16/2019 4:19 PM INSURANCE PLAN SPECIALIST 03/16/2019 4:20 PM INSURANCE PLAN SPECIALIST Narrative Resulting Agency Comment Performing Organization Information: ?Site ID: [id number] ?Name: [facility] ?Address: [address] [place] [address] [place] [address] ?Director: Sal Jason D.O., MPH us Bindu Gaines MD LAB BLOOD ORDERABLES Final Result [facility] [place] documented in this encounter Visit Diagnoses Not on filedocumented in this encounter Care Teams Safety Lead Relationship Specialty Start Date End Date Helena Yu PA [address] [place] [address] PCP - General Internal Medicine 09/23/18 07/29/20 documented as of this encounter
--- OUTSIDE RECORDS SUMMARY | 2024-04-01 07:50 | XMS_ITS | Encounter Summary ---
Author Organization [facility] Address [address] [facility] [address] [place] [address] Care Team Providers Care Vamp Maker Name Role Phone Helena Yu Primary Care Provider +1- [phone] Encounter Details Date Type Department Care Team (Latest Contact Info) Description 04/25/2019 Anticoagulation Visit [facility] Medical [facility] Cardiology [address] [facility] [address], [place] [address] Bindu Gaines MD [address] [address] H/O mechanical aortic valve replacement; skilled nursing current 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 therapy [...] file Legal Sex Female 8:13 AM DIET KITCHEN COOK Gender Identity Female 06/01/2020 9:42 PM DIET KITCHEN COOK Sexual Orientation Straight 06/01/2020 9: 42 PM DIET KITCHEN COOK 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
--- OUTSIDE RECORDS SUMMARY | 2024-04-01 07:50 | XMS_ITS | Encounter Summary ---
Author Organization [facility] Address [address] [place] [address] Care Team Providers Care Actuarial Clerk Name Role Phone Helena Yu Primary Care Provider +1- [phone] Encounter Details Date Type Department Care Team (Latest Contact Info) Description 05/31/2019 Anticoagulation Visit [facility] Cardiology [address] [place] [address] Juany Mccabe RN H/O mechanical aortic valve replacement; joint terminal attack controller current 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 therapy Social History [...] file Legal Sex Female 8:13 AM INDUSTRIAL TRAINER Gender Identity Female 06/01/2020 9:42 PM INDUSTRIAL TRAINER Sexual Orientation Straight 06/01/2020 9: 42 PM INDUSTRIAL TRAINER 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
--- OUTSIDE RECORDS SUMMARY | 2024-04-01 07:50 | XMS_ITS | Encounter Summary ---
Author Organization [facility] Address [address] [place] [address] Care Team Providers Care Electrical Tests Supervisor Name Role Phone Helena Yu Primary Care Provider +1- [phone] Encounter Details Date Type Department Care Team (Latest Contact Info) Description 04/05/2019 Anticoagulation Visit [facility] Medical [facility] Cardiology [address] [address] Bindu Gaines MD [address] [address] H/O mechanical aortic valve replacement; detention current use of anticoagulant therapy Social History [...] on file Legal Sex Female 8:13 AM LVN LPN Gender Identity Female 06/01/2020 9:42 PM LVN LPN Sexual Orientation Straight 06/01/2020 9: 42 PM LVN LPN 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
--- OUTSIDE RECORDS SUMMARY | 2024-04-01 07:50 | XMS_ITS | Encounter Summary ---
Author Organization [facility] Address [address] [place] [address] Care Team Providers Care Conveyor Feeder Offbearer Name Role Phone Helena Yu Primary Care Provider +1- [phone] Encounter Details Date Type Department Care Team (Late st Contact Info) Description 05/02/2019 Orders Only [facility] Medical [facility] Cardiology [address], [place] [address] Bindu Gaines MD [address] [address] Social History Tobacco Use Types Packs/Day Years Used Date Smoking Tobacco: Never Smokeless Tobacco: Never Alcohol Use Standard Drinks/Week Comments Yes 1 (1 standard drink = 0.6 oz pur e alcohol) PHQ-2 Answer Date Recorded PHQ-2 Score 1 12/03/2018 Comments Unknown Sex and Gender Information Value Date Recorded Sex Assigned at Not on file Legal Sex Female 8:13 AM GYNECOLOGY TEACHER Gender Identity Female 06/01/2020 9:42 PM GYNECOLOGY TEACHER Sexual Orientation Straight 06/01/2020 9: 42 PM GYNECOLOGY TEACHER 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 0.9-1.1 Moderate-intensity Warfarin Therapy 2.0-3.0 Higher-intensity Warfarin Therapy ?? 3.0-4.0 PT 30.7(H) 9.0 - 11.5 sec [facility] Comment: For more information on this test, go to: http://education.TrepUp/faq/PEM849 05/02/2019 9:39 AM GYNECOLOGY TEACHER 05/02/2019 9:39 AM GYNECOLOGY TEACHER Narrative Resulting Agency Comment Performing Organization Information: ?Site ID: ?Name: [facility] ?Address: [facility] [place] [address] ?Director: Adilson Hameed us Bindu Gaines MD LAB BLOOD ORDERABLES Final Result [facility] [place] documented in this encounter Visit Diagnoses Not on filedocumented in this encounter Care Teams Conveyor Feeder Offbearer Relationship Specialty Start Date End Date Helena Yu PA [address] [place] [address] PCP - General Internal Medicine 09/23/18 07/29/20 documented as of this encounter
--- OUTSIDE RECORDS SUMMARY | 2024-04-01 07:50 | XMS_ITS | Encounter Summary ---
Author Organization [facility] Address [address] [place] [address] Care Team Providers Care Compensation Adjuster Name Role Phone Helena Yu Primary Care Provider +1- [phone] Encounter Details Date Type Department Care Team (Late st Contact Info) Description 05/14/2019 Orders Only [facility] Medical [facility] Cardiology [address], [place] [address] Bindu Gaines MD [address] [address] Social History Tobacco Use Types Packs/Day Years Used Date Smoking Tobacco: Never Smokeless Tobacco: Never Alcohol Use Standard Drinks/Week Comments Yes 1 (1 standard drink = 0.6 oz pur e alcohol) PHQ-2 Answer Date Recorded PHQ-2 Score 1 12/03/2018 Comments Unknown Sex and Gender Information Value Date Recorded Sex Assigned at Not on file Legal Sex Female 8:13 AM PLATE GRINDER Gender Identity Female 06/01/2020 9:42 PM PLATE GRINDER Sexual Orientation Straight 06/01/2020 9: 42 PM PLATE GRINDER 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 0.9-1.1 Moderate-intensity Warfarin Therapy 2.0-3.0 Higher-intensity Warfarin Therapy ?? 3.0-4.0 PT 33.5(H) 9.0 - 11.5 sec [facility] [place] Comment: For more information on this test, go to: http://education.Community Fuels/faq/FKQ721 05/14/2019 12:2 5 PM PLATE GRINDER 05/14/2019 12:25 PM PLATE GRINDER Narrative Resulting Agency Comment Performing Organization Information: ?Site ID: [place] ?Name: [facility] ?Address: [address] [place] [address] [place] [id number] ?Director: Sal Jason D.O., MPH us Bindu Gaines MD LAB BLOOD ORDERABLES Final Result [facility] [place] documented in this encounter Visit Diagnoses Not on filedocumented in this encounter Care Teams Compensation Adjuster Relationship Specialty Start Date End Date Helena Yu PA [address] [facility] [address] [place] [address] PCP - General Internal Medicine 09/23/18 07/29/20 documented as of this encounter
--- OUTSIDE RECORDS SUMMARY | 2024-04-01 07:50 | XMS_ITS | Encounter Summary ---
Author Organization [facility] Address [address] [place] [address] Care Team Providers Care Record Pressman Name Role Phone Helena Yu Primary Care Provider +1- [phone] Encounter Details Date Type Department Care Team (Late st Contact Info) Description 04/04/2019 Orders Only [facility] Medical [facility] Cardiology [address] [address] Bindu Gaines MD [address] [address] Social History Tobacco Use Types Packs/Day Years Used Date Smoking Tobacco: Never Smokeless Tobacco: Never Alcohol Use Standard Drinks/Week Comments Yes 1 (1 standard drink = 0.6 oz pur e alcohol) PHQ-2 Answer Date Recorded PHQ-2 Score 1 12/03/2018 Comments Unknown Sex and Gender Information Value Date Recorded Sex Assigned at Not on file Legal Sex Female 8:13 AM QUEEN'S COUNSEL Gender Identity Female 06/01/2020 9:42 PM QUEEN'S COUNSEL Sexual Orientation Straight 06/01/2020 9: 42 PM QUE[facility]S COUNSEL 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 0.9-1.1 Moderate-intensity Warfarin Therapy 2.0-3.0 Higher-intensity Warfarin Therapy ?? 3.0-4.0 PT 20.9(H) 9.0 - 11.5 sec [facility] [place] Comment: For more information on this test, go to: http://education.Think Silicon/faq/YMH462 04/04/2019 12:5 4 PM QUEEN'S COUNSEL 04/04/2019 12:55 PM QUEEN'S COUNSEL Narrative Resulting Agency Comment Performing Organization Information: ?Site ID: [place] ?Name: [facility] ?Address: [address] [place] [address] [place] [phone] ?Director: Sal Jason D.O., MPH us Bindu Gaines MD LAB BLOOD ORDERABLES Final Result [facility] [place] documented in this encounter Visit Diagnoses Not on filedocumented in this encounter Care Teams Record Pressman Relationship Specialty Start Date End Date Helena Yu PA [address] [facility] [address] [place] [address] PCP - General Internal Medicine 09/23/18 07/29/20 documented as of this encounter
--- OUTSIDE RECORDS SUMMARY | 2024-04-01 07:50 | XMS_ITS | Encounter Summary ---
Author Organization [facility] Address [address] [place] [address] Care Team Providers Care Marketing Compliance Manager Name Role Phone Helena Yu Primary Care Provider +1- [phone] Reason for Visit * Reason Comments Follow-up Patient is here for a 6 week medication f/u. Encounter Details Date Type Department Care Team (Late st Contact Info) Description 05/30/2019 8:30 AM PRECAST CONCRETE IRONWORKER Office Visit [facility] Family Medicine [address] [place] [address] Helena Yu PA [address] [place] [address] Moderate episode of recurrent major depressive disorder (CMS/HCC) (Primary Dx); BMI 25.0-25.9,adult Social History Tobacco Use Types Packs/Day Years Used Date Smoking Tobacco: Never Smokeless Tobacco: Never Alcohol Use Standard Drinks/Week Comments Yes 1 (1 standard drink = 0.6 oz pur e alcohol) PHQ-2 Answer Date Recorded PHQ-2 Score 1 12/03/2018 Comments Unknown Sex and Gender Information Value Date Recorded Sex Assigned at Not on file Legal Sex Female 8:13 AM PRECAST CONCRETE IRONWORKER Gender Identity Female 06/01/2020 9:42 PM PRECAST CONCRETE IRONWORKER Sexual Orientation Straight 06/01/2020 9: 42 PM PRECAST CONCRETE IRONWORKER 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 Not on file Not on file documented as of this encounter Last Filed Vital Signs Vital Sign Reading Time Taken Comments Blood Pressure 102/66 05/30/2019 8:35 AM PRECAST CONCRETE IRONWORKER Pulse 86 05/30/2019 8:35 AM PRECAST CONCRETE IRONWORKER Temperature 36.8 ??C (98.3 ??F) 05/30/2019 8:35 AM CS T Respiratory Rate - - Oxygen Saturation 93% 05/30/2019 8:35 AM PRECAST CONCRETE IRONWORKER Inhaled Oxygen Concentration - - Weight 61.9 kg (136 lb 8 oz) 05/30/2019 8:35 AM PRECAST CONCRETE IRONWORKER Height 156.2 cm (5' 1.5 ) 05/30/2019 8:35 AM PRECAST CONCRETE IRONWORKER Body Mass Index 25.37 05/30/2019 8:35 AM PRECAST CONCRETE IRONWORKER documented in this encounter Progress Notes * Helena Yu PA - 05/30/2019 8:30 AM CST Images from the original note were not included. Subjective/Objective Patient ID: Yessy Donaldson is a 63 y.o. female. Chief Complaint Follow-up (Patient is here for a 6 week medication f/u.) HPI Pt presents to followup chronic concerns. Was in the ER at [place] for a nose bleed. Was packed at the ER and left it in for 1.5 hours. Continued to ooze at home and INR 4.7 - Cardio manges. Has dr. Red's contact as ENT. No further bleeding. Hasn't noted much change with the Cymbalta. Still feels a lot of stress between work and home with her autistic son. No side effects. Willing to continue. Review of Systems Constitutional: Negative for fever. HENT: Negative for congestion. Respiratory: Negative for shortness of breath. Cardiovascular: Negative for chest pain. Gastrointestinal: Negative for constipation and diarrhea. Vitals: 05/30/19 0835 BP: 102/66 BP Location: Left arm Patient Position: Sitting Pulse: 86 Temp: 36.8 ??C (98.3 ??F) TempSrc: Oral SpO2: 93% Weight: 61.9 kg (136 lb 8 oz) Height: 156.2 cm (5' 1.5 ) Physical Exam Vitals signs and nursing [...] Diagnoses and all orders for this visit: Moderate episode of recurrent major depressive disorder (CMS/HCC) (F33.1) (Primary) Assessment & Plan: Continue the Cymbalta and monitor closely. Reviewed with patient with her increased daily stressors it may be difficult to see a change with any medication. Pt in agreement BMI 25.0-25.9,adult (Z68.25) Assessment & Plan: Weight/BMI is in healthy range. Continue healthy lifestyle to maintain. Helena Yu PA-C AST CONCRETE IRONWORKER documented in this encounter Miscellaneous Notes * Assessment & Plan Note - Helena Yu PA - 05/30/2019 1:13 PM PRECAST CONCRETE IRONWORKER Associated Problem(s): Moderate episode of recurrent major depressive disorder (HCC) Continue the Cymbalta and monitor closely. Reviewed with patient with her increased daily stressors it may be difficult to see a change with any medication. Pt in agreement AST CONCRETE IRONWORKER * Assessment & Plan Note - Berta Bhatia MA - 05/30/2019 8:38 AM PRECAST CONCRETE IRONWORKER Associated Problem(s): BMI 25.0-25.9,adult (Resolved 06/12/2020) Weight/BMI is in healthy range. Continue healthy lifestyle to maintain. AST CONCRETE IRONWORKER documented in this encounter Plan of Treatment Not on file documented as of this encounter Visit Diagnoses Diagnosis Moderate episode of recurrent major depressive disorder (HCC)- Primary BMI 25.0-25.9,adult documented in this encounter Discontinued Medications Medication Sig Discontinue Reason Start Date End Da te warfarin (COUMADIN) 2 mg tablet Take 2 tabs po on Tu, Th, and 05/31/2018 05/30/2019 documented as of this encounter Historical Medications * This list may reflect changes made after this encounter. magnesium-calcium -folic acid 400-200-1 mg tablet Take by mouth 08/27/2020 added in this encounter Care Teams Marketing Compliance Manager Relationship Specialty Start Date End Date Helena Yu PA [address] [place] [address] PCP - General Internal Medicine 09/23/18 07/29/20 documented as of this encounter
--- OUTSIDE RECORDS SUMMARY | 2024-04-01 07:50 | XMS_ITS | Encounter Summary ---
Author Organization [facility] Medical Group Address [address] [place] [address] Care Team Providers Care Thread Trimmer Name Role Phone Helena Yu Primary Care Provider +1- [phone] Encounter Details Date Type Department Care Team (Latest Contact Info) Description 04/15/2019 Anticoagulation Visit [facility] Medical [facility] Cardiology [address] [facility] [address] [facility] [address] [facility] [address], [place] [address] Bindu Gaines MD [address] [address] H/O mechanical aortic valve replacement; care home current use of anticoagulant therapy Social [...] on file Legal Sex Female 8:13 AM CLAIM ADJUSTER Gender Identity Female 06/01/2020 9:42 PM CLAIM ADJUSTER Sexual Orientation Straight 06/01/2020 9: 42 PM CLAIM ADJUSTER 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
--- OUTSIDE RECORDS SUMMARY | 2024-04-01 07:50 | XMS_ITS | Encounter Summary ---
Author Organization [facility] Medical [facility] Address [address] [facility] [address] [facility] [address] [place] [address] Care Team Providers Care Hospice Entrance Attendant Name Role Phone Helena Yu Primary Care Provider +1- [phone] Encounter Details Date Type Department Care Team (Latest Contact Info) Description 05/16/2019 Anticoagulation Visit [facility] Cardiology [address] [place] [address] Penny Wilks RN H/O mechanical aortic valve replacement; medical terminologist current use of anticoagulant therapy Social History [...] file Legal Sex Female 8:13 AM SUPERVISOR WOUND Gender Identity Female 06/01/2020 9:42 PM SUPERVISOR WOUND Sexual Orientation Straight 06/01/2020 9: 42 PM SUPERVISOR WOUND 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 Not on file Not on file documented as of this encounter Plan of Treatment Not on file documented as of this encounter Procedures Procedure Name Priority Date/Time Associated Diagnosis Comments PROTIME-INR Routine 05/16/2019 documented in this encounter Results * (ABNORMAL) Protime-INR (05/16/2019) INR 3.40(A) 0.9 - 1.1 [facility] Blood specimen (specimen) us Historical Provider LAB BLOOD ORDERABLES Antonina hernandez Result [facility] documented in this encounter Visit Diagnoses Diagnosis H/O mechanical aortic valve replacement retirement current 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 Care Teams Hospice Entrance Attendant Relationship Specialty Start Date End Date Helena Yu PA [address] [facility] [address] [place] [address] PCP - General Internal Medicine 09/23/18 07/29/20 documented as of this encounter
--- OUTSIDE RECORDS SUMMARY | 2024-04-01 07:51 | XMS_ITS | Encounter Summary ---
Author Organization [facility] Address [address] [place] [address] Care Team Providers Care Candy Supervisor Name Role Phone Helena Yu Primary Care Provider +1- [phone] Reason for Visit * Reason Comments Follow-up Patient is here for a f/u on new medication. Encounter Details Date Type Department Care Team (Late st Contact Info) Description 01/24/2019 2:30 PM CDT Office Visit [facility] Family Medicine [address] [place] [address] Helena uY PA [address] [place] [address] Moderate episode of recurrent major depressive disorder (CMS/HCC) (Primary Dx); Need for immunization against influenza; BMI 26.0-26.9,adult Social History Tobacco Use Types Packs/Day Years Used Date Smoking Tobacco: Never Smokeless Tobacco: Never Alcohol Use Standard Drinks/Week Comments Yes 1 (1 standard drink = 0.6 oz pur e alcohol) PHQ-2 Answer Date Recorded PHQ-2 Score 1 12/03/2018 Comments Unknown Sex and Gender Information Value Date Recorded Sex Assigned at Not on file Legal Sex Female 8:13 AM TYPEWRITER OPERATOR AUTOMATIC Gender Identity Female 06/01/2020 9:42 PM TYPEWRITER OPERATOR AUTOMATIC Sexual Orientation Straight 06/01/2020 9: 42 PM TYPEWRITER OPERATOR AUTOMATIC 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 Not on file Not on file documented as of this encounter Last Filed Vital Signs Vital Sign Reading Time Taken Comments Blood Pressure 116/70 01/24/2019 2:34 PM CDT Pulse 90 01/24/2019 2:34 PM CDT Temperature 36.8 ??C (98.3 ??F) 01/24/2019 2:34 PM CD T Respiratory Rate - - Oxygen Saturation 96% 01/24/2019 2:34 PM CDT Inhaled Oxygen Concentration - - Weight 64.5 kg (142 lb 3.2 oz) 01/24/2019 2:34 P M CDT Height 156.2 cm (5' 1.5 ) 01/24/2019 2:34 PM CDT Body Mass Index 26.43 01/24/2019 2:34 PM CDT documented in this encounter Patient Instructions * Patient Instructions* Helena Yu PA - 01/24/2019 2:30 PM CDT Please feel free to call the office if you have any questions or concerns. documented in this encounter Ordered Prescriptions Prescription Sig Dispense Quantity Refills Last Filled Start Date End Date DULoxetine DR (CYMBALTA) 60 mg capsuleIndications :Moderate episode of recurrent major depressive disorder (HCC) Take 1 capsule (60 mg total) by mouth daily 90 capsule 1 01/24/2019 0 documented in this encounter Progress Notes * Helena Yu PA - 01/24/2019 2:30 PM CDT Images from the original note were not included. Subjective/Objective Patient ID: Yessy Donaldson is a 63 y.o. female. Chief Complaint Follow-up (Patient is here for a f/u on new medication.) HPI Pt presents to followup new start Cymbalta. Started on just the 30mg. Can tell a little difference with mood and pain. Willing to increase. No side effects. Review of Systems Constitutional: Negative for fever. HENT: Negative for congestion. Respiratory: Negative for shortness of breath. Cardiovascular: Negative for chest pain. Gastrointestinal: Negative for constipation and diarrhea. Vitals: 01/24/19 1434 BP: 116/70 BP Location: Left arm Patient Position: Sitting Pulse: 90 Temp: 36.8 ??C (98.3 ??F) TempSrc: Oral SpO2: 96% Weight: 64.5 kg (142 lb 3.2 oz) Height: 156.2 cm (5' 1.5 ) Physical Exam Vitals signs and nursing note reviewed. Constitutional: Appearance: She is well-developed. HENT: Head: Normocephalic and atraumatic. Cardiovascular: Rate and Rhythm: Normal rate and regular rhythm. Heart sounds: No murmur. Pulmonary: Effort: Pulmonary effort is normal. Breath sounds: Normal breath sounds. Abdominal: Palpations: Abdomen is soft. Tenderness: There is no tenderness. Skin: General: Skin is warm and dry. Findings: No rash. Neurological: Mental Status: She is alert and oriented to person, place, and time. Assessment/Plan Diagnoses and all orders for this visit: Moderate episode of recurrent major depressive disorder (CMS/HCC) (F33.1) (Primary) Assessment & Plan: Increase cymbalta to 60mg. Monitor closely Orders: - DULoxetine DR (CYMBALTA) 60 mg capsule; Take 1 capsule (60 mg total) by mouth daily Need for immunization against influenza (Z23) Assessment & Plan: Updated in office today BMI 26.0-26.9,adult (Z68.26) Assessment & Plan: Weight/BMI is in healthy range. Continue healthy lifestyle to maintain. Other orders - Flu Vaccine Quad PF 3y+ IM - Fluzone AUGUSTO NapolesC WRITER OPERATOR AUTOMATIC documented in this encounter Miscellaneous Notes * Assessment & Plan Note - Helena Yu PA - 02/20/2019 2:18 PM TYPEWRITER OPERATOR AUTOMATIC Associated Problem(s): Moderate episode of recurrent major depressive disorder (HCC) Increase cymbalta to 60mg. Monitor closely WRITER OPERATOR AUTOMATIC * Assessment & Plan Note - Helena Yu PA - 02/20/2019 2:18 PM TYPEWRITER OPERATOR AUTOMATIC Associated Problem(s): Need for immunization against influenza (Resolved 12/11/2019) Updated in office today WRITER OPERATOR AUTOMATIC * Assessment & Plan Note - Berta Bhatia MA - 01/24/2019 2:39 PM CDT Associated Problem(s): BMI 26.0-26.9,adult (Resolved 05/30/2019) Weight/BMI is in healthy range. Continue healthy lifestyle to maintain. documented in this encounter Plan of Treatment Not on file documented as of this encounter Visit Diagnoses Diagnosis Moderate episode of recurrent major depressive disorder (HCC)- Primary Need for immunization against influenza Need for prophylactic vaccination and inoculation against influenza BMI 26.0-26.9,adult documented in this encounter Discontinued Medications Medication Sig Discontinue Reason Start Date End Da te DULoxetine DR (CYMBALTA) 30 mg capsuleIndications:Moder ate episode of recurrent major depressive disorder (HCC) Take 1 capsule (30 mg total) by mouth daily 11/17/2018 01/24/2019 documented as of this encounter Orders Immunization/Injection Count Last Ordered Date First Ordered Date FLU VACCINE QUAD PF 3Y+ IM - FLUZONE 1 01/11 documented in this encounter Care Teams Candy Supervisor Relationship Specialty Start Date End Date Helena Yu PA [address] [facility] [address] [place] [address] PCP - General Internal Medicine 09/23/18 07/29/20 documented as of this encounter
--- OUTSIDE RECORDS SUMMARY | 2024-04-01 07:51 | XMS_ITS | Encounter Summary ---
Author Organization [facility] Address [address] [place] [address] Care Team Providers Care Crosstie Inspector Name Role Phone Helena Yu Primary Care Provider +1- [phone] Encounter Details Date Type Department Care Team (Latest Contact Info) Description 12/31/2018 Anticoagulation Visit [facility] [address] [facility] [address] [place] [address] Bindu Gaines MD [address] [address] H/O mechanical aortic valve replacement; [...] on file Legal Sex Female 8:13 AM BURNER MACHINE OPERATOR Gender Identity Female 06/01/2020 9:42 PM BURNER MACHINE OPERATOR Sexual Orientation Straight 06/01/2020 9: 42 PM BURNER MACHINE OPERATOR 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
--- OUTSIDE RECORDS SUMMARY | 2024-04-01 07:51 | XMS_ITS | Encounter Summary ---
Author Organization [facility] Address [address] [place] [address] Care Team Providers Care Operations Systems Specialist Name Role Phone Helena Yu Primary Care Provider +1- [phone] Encounter Details Date Type Department Care Team (Late st Contact Info) Description 02/21/2019 Orders Only [facility] [address] [place] [address] Helena Yu PA [address] [place] [address] Social History Tobacco Use Types Packs/Day Years Used Date Smoking Tobacco: Never Smokeless Tobacco: Never Alcohol Use Standard Drinks/Week Comments Yes 1 (1 standard drink = 0.6 oz pur e alcohol) PHQ-2 Answer Date Recorded PHQ-2 Score 1 12/03/2018 Comments Unknown Sex and Gender Information Value Date Recorded Sex Assigned at Not on file Legal Sex Female 8:13 AM BEATER HEAD Gender Identity Female 06/01/2020 9:42 PM BEATER HEAD Sexual Orientation Straight 06/01/2020 9: 42 PM BEATER HEAD 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 Not on file Not on file documented as of this encounter Plan of Treatment Not on file documented as of this encounter Procedures Procedure Name Priority Date/Time Associated Diagnosis Comments SCAN - RADIOLOGY/IMAGING 02/21/2019 documented in this encounter Results * SCAN - RADIOLOGY/IMAGING (02/21/2019) Anatomical Region Laterality Modality Other us Helena DAVEY Edited Res ult - Final documented in this encounter Visit Diagnoses Not on filedocumented in this encounter Care Teams Operations Systems Specialist Relationship Specialty Start Date End Date Helena Yu PA [address] [facility] [address] [place] [address] PCP - General Internal Medicine 09/23/18 07/29/20 documented as of this encounter
--- OUTSIDE RECORDS SUMMARY | 2024-04-01 07:51 | XMS_ITS | Encounter Summary ---
Author Organization [facility] Care Team Providers Care Brine Mixer Operator Name Role Phone Helena Yu Primary Care Provider +1- [phone] Encounter Details Date Type Department Care Team (Latest Contact Info) Description 01/24/2019 Travel Social History Tobacco Use Types Packs/Day Years Used Date Smoking Tobacco: Never Smokeless Tobacco: Never Alcohol Use Standard Drinks/Week Comments Yes 1 (1 standard drink = 0.6 oz pur e alcohol) PHQ-2 Answer Date Recorded PHQ-2 Score 1 12/03/2018 Comments Unknown Sex and Gender Information Value Date Recorded Sex Assigned at Not on file Legal Sex Female 8:13 AM BROADCAST PROGRAM DIRECTOR Gender Identity Female 06/01/2020 9:42 PM BROADCAST PROGRAM DIRECTOR Sexual Orientation Straight 06/01/2020 9: 42 PM BROADCAST PROGRAM DIRECTOR 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
--- OUTSIDE RECORDS SUMMARY | 2024-04-01 07:51 | XMS_ITS | Encounter Summary ---
Author Organization [facility] Address [address] [place] [address] Care Team Providers Care Safety Patrol Officer Name Role Phone Helena Yu Primary Care Provider +1- [phone] Encounter Details Date Type Department Care Team (Late st Contact Info) Description 02/21/2019 Telephone [facility] [address] [facility] [address] [place] [address] Bindu Gaines MD [address] [address] Social History Tobacco Use Types Packs/Day Years Used Date Smoking Tobacco: Never Smokeless Tobacco: Never Alcohol Use Standard Drinks/Week Comments Yes 1 (1 standard drink = 0.6 oz pur e alcohol) PHQ-2 Answer Date Recorded PHQ-2 Score 1 12/03/2018 Comments Unknown Sex and Gender Information Value Date Recorded Sex Assigned at Not on file Legal Sex Female 8:13 AM ONLINE ADVERTISING DIRECTOR Gender Identity Female 06/01/2020 9:42 PM ONLINE ADVERTISING DIRECTOR Sexual Orientation Straight 06/01/2020 9: 42 PM ONLINE ADVERTISING DIRECTOR 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
--- OUTSIDE RECORDS SUMMARY | 2024-04-01 07:51 | XMS_ITS | Encounter Summary ---
Author Organization [facility] Address [address] [place] [address] Care Team Providers Care Track Announcer Name Role Phone Helena Yu Primary Care Provider +1- [phone] Encounter Details Date Type Department Care Team (Late st Contact Info) Description 03/08/2019 Documentation [facility] Family Medicine [address] [place] [address] Helena Yu PA [address] [place] [address] Social History Tobacco Use Types Packs/Day Years Used Date Smoking Tobacco: Never Smokeless Tobacco: Never Alcohol Use Standard Drinks/Week Comments Yes 1 (1 standard drink = 0.6 oz pur e alcohol) PHQ-2 Answer Date Recorded PHQ-2 Score 1 12/03/2018 Comments Unknown Sex and Gender Information Value Date Recorded Sex Assigned at Not on file Legal Sex Female 8:13 AM HR 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 Gender Identity Female 06/01/2020 9:42 PM HR 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 Sexual Orientation Straight 06/01/2020 9: 42 PM HR 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 Not on file Not on file documented as of this encounter Progress Notes * Swathi Parra - 03/08/2019 3:49 PM CST HM 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 documented in this encounter Plan of Treatment Not on file documented as of this encounter Procedures Procedure Name Priority Date/Time Associated Diagnosis Comments DEXA SCAN Routine 02/21/2019 documented in this encounter Results * DEXA SCAN (02/21/2019) DEXA Scan Abnormal Comment:Moise-Spine (-0.8 ), LT Hip (-1.3), RT Hip (-1.1) Historical Provider HEALTH MAINTENANCE Final Result documented in this encounter Visit Diagnoses Not on filedocumented in this encounter Care Teams Track Announcer Relationship Specialty Start Date End Date Helena Yu PA [address] [facility] [address] [place] [address] PCP - General Internal Medicine 09/23/18 07/29/20 documented as of this encounter
--- OUTSIDE RECORDS SUMMARY | 2024-04-01 07:51 | XMS_ITS | Encounter Summary ---
Author Organization [facility] Address [address] [place] [address] Care Team Providers Care Retinal Surgeon Name Role Phone Helena Yu Primary Care Provider +1- [phone] Encounter Details Date Type Department Care Team (Latest Contact Info) Description 02/21/2019 Anticoagulation Visit [facility] [address] [facility] [address] [address] [place] [address] Penny Wilks, BHAVANA H/O mechanical aortic valve replacement; residential current use of anticoagulant therapy Social History [...] on file Legal Sex Female 8:13 AM FIBERGLASS AUTOBODY REPAIRER Gender Identity Female 06/01/2020 9:42 PM FIBERGLASS AUTOBODY REPAIRER Sexual Orientation Straight 06/01/2020 9: 42 PM FIBERGLASS AUTOBODY REPAIRER 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 Not on file Not on file documented as of this encounter Plan of Treatment Not on file documented as of this encounter Procedures Procedure Name Priority Date/Time Associated Diagnosis Comments PROTIME-INR Routine 02/21/2019 documented in this encounter Results * (ABNORMAL) Protime-INR (02/21/2019) INR 2.00(A) 0.9 - 1.1 [facility] Blood specimen (specimen) us Historical Provider LAB BLOOD ORDERABLES Antonina hernandez Result [facility] documented in this encounter Visit Diagnoses Diagnosis H/O mechanical aortic valve replacement residential current 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 Care Teams Retinal Surgeon Relationship Specialty Start Date End Date Helena Yu PA [address] [facility] [address] [place] [address] PCP - General Internal Medicine 09/23/18 07/29/20 documented as of this encounter
--- OUTSIDE RECORDS SUMMARY | 2024-04-01 07:51 | XMS_ITS | Encounter Summary ---
Author Organization [facility] Address [address] [facility] [address] [address] [place] [address] Care Team Providers Care Night Order Selector Name Role Phone Helena Yu Primary Care Provider +1- [phone] Encounter Details Date Type Department Care Team (Late st Contact Info) Description 03/03/2019 Orders Only [facility] [address] [facility] [address], [place] [address] Bindu Gaines MD [address] [address] Social History Tobacco Use Types Packs/Day Years Used Date Smoking Tobacco: Never Smokeless Tobacco: Never Alcohol Use Standard Drinks/Week Comments Yes 1 (1 standard drink = 0.6 oz pur e alcohol) PHQ-2 Answer Date Recorded PHQ-2 Score 1 12/03/2018 Comments Unknown Sex and Gender Information Value Date Recorded Sex Assigned at Not on file Legal Sex Female 8:13 AM ADJUSTMENT CLERK Gender Identity Female 06/01/2020 9:42 PM ADJUSTMENT CLERK Sexual Orientation Straight 06/01/2020 9: 42 PM ADJUSTMENT CLERK 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 0.9-1.1 Moderate-intensity Warfarin Therapy 2.0-3.0 Higher-intensity Warfarin Therapy ?? 3.0-4.0 PT 31.3(H) 9.0 - 11.5 sec [facility] Comment: For more information on this test, go to: http://education.[employer]/faq/BXS616 03/03/2019 6:42 AM ADJUSTMENT CLERK 03/03/2019 6:43 AM ADJUSTMENT CLERK Narrative Resulting Agency Comment Performing Organization Information: ?Site ID: ?[facility] ?Address: [facility] [address] [place] [address] ?Director: Adilson Hameed us Bindu Gaines MD LAB BLOOD ORDERABLES Final Result [facility] [place], [place] documented in this encounter Visit Diagnoses Not on filedocumented in this encounter Care Teams Night Order Selector Relationship Specialty Start Date End Date Helena Yu PA [address] [place] [address] PCP - General Internal Medicine 09/23/18 07/29/20 documented as of this encounter
--- OUTSIDE RECORDS SUMMARY | 2024-04-01 07:51 | XMS_ITS | Encounter Summary ---
Author Organization [facility] Address [address] [facility] [address] [place] [address] Care Team Providers Care Contract Law Specialist Name Role Phone Helena Yu Primary Care Provider +1- [phone] Encounter Details Date Type Department Care Team (Late st Contact Info) Description 02/21/2019 Documentation [facility] Family Medicine [address] [place] [address] Helena Yu PA [address] [place] [address] Social History Tobacco Use Types Packs/Day Years Used Date Smoking Tobacco: Never Smokeless Tobacco: Never Alcohol Use Standard Drinks/Week Comments Yes 1 (1 standard drink = 0.6 oz pur e alcohol) PHQ-2 Answer Date Recorded PHQ-2 Score 1 12/03/2018 Comments Unknown Sex and Gender Information Value Date Recorded Sex Assigned at Not on file Legal Sex Female 8:13 AM ASSISTANT BANQUET MANAGER Gender Identity Female 06/01/2020 9:42 PM ASSISTANT BANQUET MANAGER Sexual Orientation Straight 06/01/2020 9: 42 PM ASSISTANT BANQUET MANAGER 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 Not on file Not on file documented as of this encounter Progress Notes * Swathi Parra - 02/21/2019 2:23 PM CST HM STANT BANQUET MANAGER documented in this encounter Plan of Treatment Not on file documented as of this encounter Procedures Procedure Name Priority Date/Time Associated Diagnosis Comments MAMMOGRAPHY Routine 02/21/2019 documented in this encounter Results * MAMMOGRAPHY (02/21/2019) Mammogram Normal Comment:Moise us Historical Provider HEALTH MAINTENANCE Final Result documented in this encounter Visit Diagnoses Not on filedocumented in this encounter Care Teams Contract Law Specialist Relationship Specialty Start Date End Date Helena Yu PA [address] [facility] [address] [place] [address] PCP - General Internal Medicine 09/23/18 07/29/20 documented as of this encounter
--- OUTSIDE RECORDS SUMMARY | 2024-04-01 07:51 | XMS_ITS | Encounter Summary ---
Author Organization [facility] Address [address] [place] [address] Care Team Providers Care Relief Charge Nurse Name Role Phone Helena Yu Primary Care Provider +1- [phone] Encounter Details Date Type Department Care Team (Late st Contact Info) Description 02/21/2019 Orders Only [facility] [address], [place] [address] Bindu Gaines MD [address] [address] Social History Tobacco Use Types Packs/Day Years Used Date Smoking Tobacco: Never Smokeless Tobacco: Never Alcohol Use Standard Drinks/Week Comments Yes 1 (1 standard drink = 0.6 oz pur e alcohol) PHQ-2 Answer Date Recorded PHQ-2 Score 1 12/03/2018 Comments Unknown Sex and Gender Information Value Date Recorded Sex Assigned at Not on file Legal Sex Female 8:13 AM TOMATO PULPER OPERATOR Gender Identity Female 06/01/2020 9:42 PM TOMATO PULPER OPERATOR Sexual Orientation Straight 06/01/2020 9: 42 PM TOMATO PULPER OPERATOR 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 0.9-1.1 Moderate-intensity Warfarin Therapy 2.0-3.0 Higher-intensity Warfarin Therapy ?? 3.0-4.0 PT 20.4(H) 9.0 - 11.5 sec [facility] Comment: For more information on this test, go to: [email or web address]/faq/[email or web address] 02/21/2019 11:2 9 AM TOMATO PULPER OPERATOR 02/21/2019 11:30 AM TOMATO PULPER OPERATOR Narrative Resulting Agency Comment Performing Organization Information: ?Site ID: ?Name: [facility] ?Address: [address] [place] [address] ?Director: Adilson Hameed us Bindu Gaines MD LAB BLOOD ORDERABLES Final Result [facility] [place] documented in this encounter Visit Diagnoses Not on filedocumented in this encounter Care Teams Relief Charge Nurse Relationship Specialty Start Date End Date Helena Yu PA [address] [place] [address] PCP - General Internal Medicine 09/23/18 07/29/20 documented as of this encounter
--- OUTSIDE RECORDS SUMMARY | 2024-04-01 07:51 | XMS_ITS | Encounter Summary ---
Author Organization [facility] Address [address] [place] [address] Care Team Providers Care Manager Chemical Name Role Phone Helena Yu Primary Care Provider +1- [phone] Encounter Details Date Type Department Care Team (Latest Contact Info) Description 03/04/2019 Anticoagulation Visit [facility] [address] [facility] [address] [place] [phone] Bindu Gaines MD [address] [address] H/O mechanical aortic valve replacement; correction current use of anticoagulant therapy Social History [...] on file Legal Sex Female 8:13 AM STRIP PRESSER Gender Identity Female 06/01/2020 9:42 PM STRIP PRESSER Sexual Orientation Straight 06/01/2020 9: 42 PM STRIP PRESSER 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
--- OUTSIDE RECORDS SUMMARY | 2024-04-01 07:51 | XMS_ITS | Encounter Summary ---
Author Organization [facility] Address [address] [place] [address] Care Team Providers Care Hairspring Fabrication Supervisor Name Role Phone Helena Yu Primary Care Provider +1- [phone] Encounter Details Date Type Department Care Team (Latest Contact Info) Description 01/26/2019 Anticoagulation Visit [facility] [address] [facility] [address] [place] [phone] Bindu Gaines MD [address] [address] H/O mechanical aortic valve replacement; [...] on file Legal Sex Female 8:13 AM ASSEMBLER FILTERS Gender Identity Female 06/01/2020 9:42 PM ASSEMBLER FILTERS Sexual Orientation Straight 06/01/2020 9: 42 PM ASSEMBLER FILTERS 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
--- OUTSIDE RECORDS SUMMARY | 2024-04-01 07:52 | XMS_ITS | Encounter Summary ---
Author Organization [facility] Address [address] [place] [address] Care Team Providers Care Fuel Manager Name Role Phone Helena Yu Primary Care Provider +1- [phone] Reason for Referral * Diagnostic Imaging (Routine) - Closed Specialty Diagnoses / Procedures Referred By Bernardoac t Referred To Contact Diagnoses H/O mechanical aortic valve replacement Procedures Transthoracic Echo Complete W Doppler/CF Bindu Santamaria MD Phone: tel: fax: [facility] Referral ID Status Reason Start Date Expiration Date Visits Re quested Visits Authorized [id number] Closed 11/15/2018 05/26/2020 1 1 Reason for Visit * Reason Comments Follow-up 1 yr f/u Encounter Details Date Type Department Care Team (Latest Contact Info) Description 11/15/2018 1:15 PM CDT Office Visit [facility] [address] [address] Bindu Santamaria MD [address] [place], [place] [id number] H/O mechanical aortic valve replacement (Primary Dx); residential current use of anticoagulant therapy; Bicuspid aortic valve; Hypercholesteremia; Multiple-type hyperlipidemia Social History Tobacco Use Types Packs/Day Years Used Date Smoking Tobacco: Never Smokeless Tobacco: Never Tobacco Cessation:Counseling Given: Yes Alcohol Use Standard Drinks/Week Comments Yes 1 (1 standard drink = 0.6 oz pur e alcohol) Comments Unknown Sex and Gender Information Value Date Recorded Sex Assigned at Not on file Legal Sex Female 8:13 AM FLIGHT CONTROL SPECIALIST Gender Identity Female 06/01/2020 9:42 PM FLIGHT CONTROL SPECIALIST Sexual Orientation Straight 06/01/2020 9: 42 PM FLIGHT CONTROL SPECIALIST documented as of this encounter Last Filed Vital Signs Vital Sign Reading Time Taken Comments Blood Pressure 112/62 11/15/2018 1:11 PM CDT Pulse 91 11/15/2018 1:11 PM CDT Temperature - - Respiratory Rate - - Oxygen Saturation 99% 11/15/2018 1:11 PM CDT Inhaled Oxygen Concentration - - Weight 62.4 kg (137 lb 9.6 oz) 11/15/2018 1:11 P M CDT Height 156.2 cm (5' 1.5 ) 11/15/2018 1:11 PM CDT Body Mass Index 25.58 11/15/2018 1:11 PM CDT documented in this encounter Progress Notes * Bindu Santamaria MD - 11/15/2018 1:15 PM CDT [facility] DATE OF VISIT: 11/21/2018 DATE: 1955 CHIEF COMPLAINT Chief Complaint Patient presents with ??? 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 Guthrie in 2008. [...] no bleeding. Cholest 221. 11/10/2017 OV w/ CALL MANAGER Jessica: Here for annual visit. No specific complaints [...] Practices dental prophylaxis. NO CP, SOB, dizziness. 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 Her son in mid-30's is also severely disabled, and moved into a long-term but it didn't work out and now is back home. Her mother, with whom she was not close, April 2012, and her uncle also around that same time. MEDICAL HISTORY Past Medical History: Diagnosis Date ??? Asthma Asthma ??? Eczema eczema ??? HX OTHER MEDICAL diverticulosis Social History Tobacco Use ??? Smoking status: Never Smoker ??? Smokeless tobacco: Never Used Substance Use Topics ??? Alcohol use: Yes Alcohol/week: 0.6 - 1.2 oz Types: 1 - 2 Glasses of wine per week ??? Drug use: No Family History Problem Relation Age of Onset ??? Other Father CT age 50, CABG; ??? Other Mother H/O CVA, 2012; ??? Other Sister MVP; MEDICATIONS Current Outpatient Medications: ??? albuterol HFA (PROAIR HFA) 90 mcg/actuation inhaler, inhale 2 puff by inhalation route every 4 - 6 hours as needed, Disp: , Rfl: 0 ??? aspirin 81 mg tablet, Take one by mouth one time per day, Disp: 0, Rfl: 0 ??? atorvastatin (LIPITOR) 20 mg tablet, Take 1 tablet (20 mg total) by mouth daily., Disp: 90 tablet, Rfl: 3 ??? famotidine (PEPCID) 20 mg tablet, take 1 tablet by ORAL route every day, Disp: 0, Rfl: 0 ??? warfarin (COUMADIN) 2 mg tablet, Take 2 tabs po on Tues, Thurs, and Sat, Disp: 60 tablet, Rfl: 0 ??? warfarin (COUMADIN) 5 mg tablet, TAKE 1 TABLET BY MOUTH EVERY DAY, Disp: 90 tablet, Rfl: 0 ??? betamethasone, augmented, (DIPROLENE) 0.05 % ointment, 0.05 % daily, Disp: , Rfl: ??? celecoxib (CeleBREX) 200 mg capsule, Take 1 capsule (200 mg total) by mouth daily, Disp: 90 capsule, Rfl: 2 ??? DULoxetine DR (CYMBALTA) 30 mg capsule, Take 1 capsule (30 mg total) by mouth daily, Disp: 30 capsule, Rfl: 2 ??? triamcinolone (KENALOG) 0.1 % ointment, 0.1 % 2 (two) times a day, Disp: , Rfl: ALLERGIES No Known Allergies REVIEW OF SYSTEMS Review of Systems Constitution: Negative for malaise/fatigue. HENT: Negative for congestion. Eyes: Negative for visual disturbance. Cardiovascular: Negative for chest pain, dyspnea on exertion and syncope. Respiratory: Negative for shortness of breath. Hematologic/Lymphatic: Negative for bleeding problem. Gastrointestinal: Negative for abdominal pain. Genitourinary: Negative for hematuria. Neurological: Negative for dizziness. Psychiatric/Behavioral: Negative for depression. PHYSICAL EXAM Blood pressure 112/62, pulse 91, height 156.2 cm (5' 1.5 ), weight 62.4 kg (137 lb 9.6 oz), SpO2 99%. Body mass index is 25.58 kg/m??. Physical Exam Constitutional: She is oriented to person, place, and time. She appears well- developed and well-nourished. Neck: No thyromegaly present. Cardiovascular: Normal rate, regular rhythm and normal heart sounds. No murmur heard. Pulses: Carotid pulses are 2+ on the right side, and 2+ on the left side. Pulmonary/Chest: Effort normal and breath sounds normal. No respiratory distress. Abdominal: Soft. She exhibits no distension. Musculoskeletal: She exhibits no edema. Neurological: She is alert and oriented to person, place, and time. Skin: Skin is warm and dry. LABS AND OTHER DIAGNOSTIC TESTS No results found for: WBC, HGB, HCT, MCV, PLT Chemistry Component Value Date/Time SODIUM 144 08/31/2012 0912 CHLORIDE 106 08/31/2012 0912 CO2 29 08/31/2012 0912 BUNSER 23 08/31/2012 0912 CREATININE 0.75 08/31/2012 0912 GLUCOSE 91 08/31/2012 0912 Component Value Date/Time CALCIUM 8.9 08/31/2012 0912 ALKPHOS 73 08/31/2012 0912 AST 29 08/31/2012 0912 ALT 27 08/31/2012 0912 BILITOT 0.4 08/31/2012 09 Lab Results Component Value Date CHOL 227 (H) 08/31/2012 Lab Results Component Value Date GLUCOSE 91 08/31/2012 CALCIUM 8.9 08/31/2012 SODIUM 144 08/31/2012 CO2 29 08/31/2012 CHLORIDE 106 08/31/2012 BUNSER 23 08/31/2012 CREATININE 0.75 08/31/2012 Lab Results Component Value Date HDL 56 [...] Results Component Value Date INR 3.5 (H) 11/03/2018 INR 3.3 (H) 10/07/2018 INR 3.4 (H) 09/17/2018 Echos: 2008: EF 71%, LVH, diast. dysfxn, LYNSEY 0.5-0.6 cm2, mild AI peak grad 63, mean grad 37 mmHg --> Aortic valve replacement, 19 mm Alpha valve 2008: EF 63%, LYNSEY 1.0-1.1 cm2, mean grad 8 mmHg (post-op) 2014: EF 63%, LYNSEY 1.2 cm2, mean grad 13 mmHg. She also has mild asthma. 11/2017 EF 60%, diast dysfxn, EF 60%, LYNSEY 1.5 cm2, mean grad 7 mmHg. ASSESSMENT Diagnoses and all orders for this visit: H/O mechanical aortic valve replacement (Primary) - Transthoracic Echo Complete W Doppler/CF; Future residential current use of anticoagulant therapy Bicuspid aortic valve Hypercholesteremia Multiple-type hyperlipidemia Assessment: Patient is doing well 10 years after her mechanical mitral valve replacement for severeAS and a bicuspid aortic valve. Has not had any involvement of her ascending aorta. Compliant with INR follow-up; last INR was 3.5, warfarin adjusted. No bleeding problems. Compliant with SBE prophylaxis. Has high cholesterol. Calculated 10 year risk of cardiovascular complications using the aha/ACC risk calculator, and was only 3% so after discussion we decided not to add a statin. Does have a family history of CAD but no signs or symptoms of CAD herself. PLAN/RECOMMENDATIONS Echocardiogram Follow-up in 1 year, sooner if needed A Bindu Santamaria MD, [facility] Office: [phone] or [phone] This note is dictated and transcribed by with assistance from [employer].?? Computer Science Professor variances may occur. Despite proofreading, typographical errors may occur. documented in this encounter Plan of Treatment Not on file documented as of this encounter Results * TRANSTHORACIC ECHO (TTE) COMPLETE W DOPPLER/CF WO CONTRAST (12/17/2018 2:49 PM CDT) Anatomical Region Laterality Modality Ultrasound 12/17/2018 11:5 2 AM CDT Narrative 12/17/2018 5:47 PM CDT [facility] [facility] [address] [address] [address] [facility] [address], [place] [address] P:[phone] P:[phone] Echocardiographic Report Patient Name: YESSY NIXON : 1955 Study Date: 12/17/2018 11:52:04 AM Gender: F Tech: Location: [place] Ref.Provider: EDYTA Height(Cm): 155 BSA: 1.61 Weight(Kg): 62.14 Heart Rate: 80 BP: 90/55 Quality: Good Order Provider: BINDU SANTAMARIA Procedures: Echocardiographic Report: Transthoracic echocardiogram with complete 2D, M-Mode, and color Doppler examination. Indications: Aortic Valve Replacement 19. Measurements: 2D/M Mode ?Doppler ? Measurement ?Value ?Normal Range ? Measurement ?Value ?Normal Range ? EF Mod ? 65 ?LYNSEY ?1.10 ? [ 2.00 - 4.00 ] cm2 ? EF MM ?70 ? [ 55 - 70 ] % ?AV Mean PG ? 8 ?mmHg ? LVIDd MM ? 3.60 ? [ 3.90 - 5.30 ] cm ? AV Peak Alvaro ?2.15 ? m/s ? LVIDs MM ? 2.20 ? [ 2.30 - 3.90 ] cm ? AV Peak PG ? 19 ? mmHg ? LVPWd MM ? 1.13 ? [ 0.60 - 1.00 ] cm ? AV VTI ? 0.40 ? cm ? IVSd MM ?1.13 ? [ 0.60 - 0.90 ] cm ? LVOT Diam ?2.04 ? [ 1.70 - 2.10 ] cm ? LA Dimension MM ?2.87 ? [ 2.70 - 3.80 ] cm ? LVOT Peak Alvaro ?0.72 ? [ 0.70 - 1.10 ] m/s ? AoR Diam MM ?2.53 ? [ 2.60 - 3.70 ] cm ? LVOT VTI ? 0.13 ? cm ? LA Volume Index ?18.00 ?[ 16.00 - 28.00 ] cc/m2 ?MV E Peak Alvaro ?0.62 ? [ 0.60 - 1.30 ] m/s ? MV A Peak Alvaro ?0.84 ? [ 0.40 - 0.80 ] m/s ? MV Decel Time ?321 ?[ 150 - 200 ] msec ? PV Peak Alvaro ?0.87 ? [ 0.40 - 0.80 ] m/s ? TR Peak Alvaro ?2.43 ? [ 0.40 - 0.80 ] m/s ? TR Peak PG ? 24 ? mmHg ? RVSP ? 32.00 ?mmHg ? E' ? 0.11 ? E/E' ? 6 ? Findings: Interpretation Site: Exam was interpreted at [facility]. Left Ventricle: Normal left ventricular systolic function. No focal wall motion abnormalities. Normal left ventricular size. Mild concentric left ventricular hypertrophy. Impaired diastolic relaxation Grade I. Ejection fraction is visually estimated at 60-65 %. Ejection fraction is measured at 65 %. Right Ventricle: Normal right ventricular size. Normal right ventricular systolic function. Left Atrium: The left atrium is normal in size. Right Atrium: The right atrium is normal in size. Atrial Septum: Thin and hypermobile atrial septum. Mitral Valve: Mild mitral annular calcification. Mild mitral valve regurgitation. There is no hemodynamically significant mitral stenosis by Doppler. Aortic Valve: Aortic valve not well visualized. Peak gradient of 18.0 mmHg. Mean gradient of 8.0 mmHg. Valve area of 1.1 cm2. Mild aortic valve regurgitation. Gradients normal for valve type and size. However the calculated LYNSEY is 1.1 and is abnormal and worse as compared to last year. Tricuspid Valve: Normal appearance of the tricuspid valve. Normal right ventricular systolic pressure. Estimated peak RVSP is 32 mmHg. Mild tricuspid regurgitation. Pulmonic Valve: Normal appearance of the pulmonic valve. No pulmonic stenosis. Mild pulmonic regurgitation. Pericardium: Normal pericardium with no significant pericardial effusion. Aorta: Ascending aorta is mildly dilated. Ascending Aorta 3.7 cm. IVC: Normal size and normal respiratory collapse consistent with normal right atrial pressure (<5 mmHg). Conclusions: Normal left ventricular systolic function. No focal wall motion abnormalities. Normal left ventricular size. Mild concentric left ventricular hypertrophy. Impaired diastolic relaxation Grade I. Ejection fraction is visually estimated at 60-65 %. Ejection fraction is measured at 65 %. Mild mitral annular calcification. Mild mitral valve regurgitation. Aortic valve not well visualized. Peak gradient of 18.0 mmHg. Mean gradient of 8.0 mmHg. Valve area of 1.1 cm2. Mild aortic valve regurgitation. Gradients normal for valve type and size. However the calculated LYNSEY is 1.1 and is abnormal and worse as compared to last year. Mild tricuspid regurgitation. Mild pulmonic regurgitation. Ascending aorta is mildly dilated. Ascending Aorta 3.7 cm. Normal sinus rhythm. Electronically Signed By: Giuseppe Bullard MD 2018-12-17 17:47:46 CDT Procedure Note Giuseppe Bullard MD - 12/17/2018 [facility] [address], [place] [address] [address], [place] [address] P:[phone] P:[phone] Echocardiographic Report Patient Name: YESSY NIXONPatient ID: [id number] : [id number] Date: 12/17/2018 11:52:04 AM Gender: FAccession #: [id number] Tech: GMLocation: [place] Ref.Provider: Hanyight(Cm): 155 BSA: 1.61Weight(Kg): 62.14 Heart Rate: 80BP: 90/55 Quality: GoodOrder Provider: BINDU SANTAMARIA Procedures: Echocardiographic Report: Transthoracic echocardiogram with complete 2D, M-Mode, and color Dopplerexamination. Indications: Aortic Valve Replacement 19. Measurements: 2D/M Mode Doppler Measurement Value Normal Range MeasurementValue Normal Range EF Mod 65 AVA1.10 [ 2.00 - 4.00 ] cm2 EF MM 70 [ 55 - 70 ] % AV Mean PG 8mmHg LVIDd MM 3.60 [ 3.90 - 5.30 ] cm AV Peak Vel2.15 m/s LVIDs MM 2.20 [ 2.30 - 3.90 ] cm AV Peak PG 19mmHg LVPWd MM 1.13 [ 0.60 - 1.00 ] cm AV VTI0.40 cm IVSd MM 1.13 [ 0.60 - 0.90 ] cm LVOT Diam2.04 [ 1.70 - 2.10 ] cm LA Dimension MM 2.87 [ 2.70 - 3.80 ] cm LVOT Peak Vel0.72 [ 0.70 - 1.10 ] m/s AoR Diam MM 2.53 [ 2.60 - 3.70 ] cm LVOT VTI0.13 cm LA Volume Index 18.00 [ 16.00 - 28.00 ] cc/m2 MV E Peak Vel0.62 [ 0.60 - 1.30 ] m/s MV A Peak Vel0.84 [ 0.40 - 0.80 ] m/s MV Decel [id number] [ 150 - 200 ] msec PV Peak Vel0.87 [ 0.40 - 0.80 ] m/s TR Peak Vel2.43 [ 0.40 - 0.80 ] m/s TR Peak PG 24mmHg RVSP32.00 mmHg E'0.11 E/E' 6 Findings: Interpretation Site: Exam was interpreted at [facility]. Left Ventricle: Normal left ventricular systolic function. No focal wall motionabnormalities. Normal left ventricular size. Mild concentric left ventricular hypertrophy.Impaired diastolic relaxation Grade I. Ejection fraction is visually estimated at 60-65 %.Ejection fraction is measured at 65 %. Right Ventricle: Normal right ventricular size. Normal right ventricular systolicfunction. Left Atrium: The left atrium is normal in size. Right Atrium: The right atrium is normal in size. Atrial Septum: Thin and hypermobile atrial septum. Mitral Valve: Mild mitral annular calcification. Mild mitral valve regurgitation. Thereis no hemodynamically significant mitral stenosis by Doppler. Aortic Valve: Aortic valve not well visualized. Peak gradient of 18.0 mmHg. Meangradient of 8.0 mmHg. Valve area of 1.1 cm2. Mild aortic valve regurgitation. Gradients normalfor valve type and size. However the calculated LYNSEY is 1.1 and is abnormal and worse ascompared to last year. Tricuspid Valve: Normal appearance of the tricuspid valve. Normal right ventricularsystolic pressure. Estimated peak RVSP is 32 mmHg. Mild tricuspid regurgitation. Pulmonic Valve: Normal appearance of the pulmonic valve. No pulmonic stenosis. Mildpulmonic regurgitation. Pericardium: Normal pericardium with no significant pericardial effusion. Aorta: Ascending aorta is mildly dilated. Ascending Aorta 3.7 cm. IVC: Normal size and normal respiratory collapse consistent with normal rightatrial pressure (<5 mmHg). Conclusions: Normal left ventricular systolic function. No focal wall motionabnormalities. Normal left ventricular size. Mild concentric left ventricular hypertrophy.Impaired diastolic relaxation Grade I. Ejection fraction is visually estimated at 60-65 %.Ejection fraction is measured at 65 %. Mild mitral annular calcification. Mild mitral valve regurgitation. Aortic valve not well visualized. Peak gradient of 18.0 mmHg. Meangradient of 8.0 mmHg. Valve area of 1.1 cm2. Mild aortic valve regurgitation. Gradients normalfor valve type and size. However the calculated LYNSEY is 1.1 and is abnormal and worse ascompared to last year. Mild tricuspid regurgitation. Mild pulmonic regurgitation. Ascending aorta is mildly dilated. Ascending Aorta 3.7 cm. Normal sinus rhythm. Electronically Signed By: Giuseppe Bullard MD 2018-12-17 17:47:46 CDT Bindu Santamaria MD CV ECHO PROCEDURES Final Re sult documented in this encounter Visit Diagnoses Diagnosis H/O mechanical aortic valve replacement- Primary residential current use of anticoagulant therapy Bicuspid aortic valve Congenital insufficiency of aortic valve Hypercholesteremia Pure hypercholesterolemia Multiple-type hyperlipidemia Other and unspecified hyperlipidemia H/O mechanical aortic valve replacement documented in this encounter Discontinued Medications Medication Sig Discontinue Reason Start Date End Da te clobetasol (TEMOVATE) 0.05 % ointment Apply topically 2 (two) times a day. Therapy completed 11/15/2018 multivitamin tablet tabletIndications:Vitam in Deficiency Prevention Take 1 tablet by mouth daily. Therapy completed 11/15/2018 documented as of this encounter Care Teams Fuel Manager Relationship Specialty Start Date End Date Helena Yu PA [address] [place] [address] PCP - General Internal Medicine 09/23/18 07/29/20 documented as of this encounter
--- OUTSIDE RECORDS SUMMARY | 2024-04-01 07:52 | XMS_ITS | Encounter Summary ---
Author Organization [facility] Address [address] [place] [address] Care Team Providers Care Occupational Health Nurse Manager Name Role Phone Unavailable Primary Care Provider Unavailabl e Encounter Details Date Type Department Care Team (Latest Contact Info) Description 09/20/2018 Anticoagulation Visit [facility] [address] [facility] [address] [address] Bindu Gaines MD [address] [address] H/O mechanical aortic valve replacement; correction current use of anticoagulant therapy Social History Tobacco Use Types Packs/Day Years Used Date Smoking Tobacco: Never Smokeless Tobacco: Never Alcohol Use Standard Drinks/Week Comments Yes 1 (1 standard drink = 0.6 oz pur e alcohol) Comments Unknown Sex and Gender Information Value Date Recorded Sex Assigned at Not on file Legal Sex Female 8:13 AM HORSE TRADER Gender Identity Female 06/01/2020 9:42 PM HORSE TRADER Sexual Orientation Straight 06/01/2020 9: 42 PM HORSE TRADER documented as of this encounter Plan of Treatment Not on file documented as of this encounter Visit Diagnoses Diagnosis H/O mechanical aortic valve replacement correction current 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
--- OUTSIDE RECORDS SUMMARY | 2024-04-01 07:52 | XMS_ITS | Encounter Summary ---
Author Organization [facility] Address [address] [place] [address] Care Team Providers Care Resident Physician In Radiology Name Role Phone Unavailable Primary Care Provider Unavailabl e Encounter Details Date Type Department Care Team (Late st Contact Info) Description 09/17/2018 Telephone [facility] [address] [facility] [address] [address] Rachel Fan, NAMRATA [address] [facility] [address] [place] [address] Social History Tobacco Use Types Packs/Day Years Used Date Smoking Tobacco: Never Smokeless Tobacco: Never Alcohol Use Standard Drinks/Week Comments Yes 1 (1 standard drink = 0.6 oz pur e alcohol) Comments Unknown Sex and Gender Information Value Date Recorded Sex Assigned at Not on file Legal Sex Female 8:13 AM ROLL BUILDER Gender Identity Female 06/01/2020 9:42 PM ROLL BUILDER Sexual Orientation Straight 06/01/2020 9: 42 PM ROLL BUILDER documented as of this encounter Miscellaneous Notes * Telephone Encounter - Juany Mccabe RN - 09/17/2018 9:02 AM CDT Noted. Will await results. * Telephone Encounter - Tabitha Craft - 09/17/2018 8:54 AM CDT Pt had labs drawn again at [facility]. * Telephone Encounter - Edelmira Ware RN - 09/17/2018 7:12 AM CDT Patient's INR did not result due to improper collection. I called the patient and left a voicemail message stating such, and requesting she return to the lab for another collection. documented in this encounter Plan of Treatment Not on file documented as of this encounter Visit Diagnoses Not on filedocumented in this encounter
--- OUTSIDE RECORDS SUMMARY | 2024-04-01 07:52 | XMS_ITS | Encounter Summary ---
Author Organization [facility] Address [address] [facility] [address] [place] [address] Care Team Providers Care Obstetrical Anesthesiologist Name Role Phone Unavailable Primary Care Provider Unavailabl e Encounter Details Date Type Department Care Team (Latest Contact Info) Description 08/26/2018 Anticoagulation Visit [facility] [address] [facility] [address] [place] [address] Juany Mccabe RN H/O mechanical aortic valve replacement; snf current use of anticoagulant therapy Social History Tobacco Use Types Packs/Day Years Used Date Smoking Tobacco: Never Smokeless Tobacco: Never Alcohol Use Standard Drinks/Week Comments Yes 1 (1 standard drink = 0.6 oz pur e alcohol) Comments Unknown Sex and Gender Information Value Date Recorded Sex Assigned at Not on file Legal Sex Female 8:13 AM NEWSPAPER PHOTOJOURNALIST Gender Identity Female 06/01/2020 9:42 PM NEWSPAPER PHOTOJOURNALIST Sexual Orientation Straight 06/01/2020 9: 42 PM NEWSPAPER PHOTOJOURNALIST documented as of this encounter Plan of Treatment Not on file documented as of this encounter Visit Diagnoses Diagnosis H/O mechanical aortic valve replacement snf current 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
--- OUTSIDE RECORDS SUMMARY | 2024-04-01 07:52 | XMS_ITS | Encounter Summary ---
Author Organization [facility] Address [address] [facility] [place] [address] Care Team Providers Care Washtub Worker Helper Name Role Phone Unavailable Primary Care Provider Unavailabl e Encounter Details Date Type Department Care Team (Latest Contact Info) Description 09/03/2018 Anticoagulation Visit [facility] [address] [facility] [address], [place] [address] Bindu Gaines MD [address] [address] H/O mechanical aortic valve replacement; residential current use of anticoagulant therapy Social History Tobacco Use Types Packs/Day Years Used Date Smoking Tobacco: Never Smokeless Tobacco: Never Alcohol Use Standard Drinks/Week Comments Yes 1 (1 standard drink = 0.6 oz pur e alcohol) Comments Unknown Sex and Gender Information Value Date Recorded Sex Assigned at Not on file Legal Sex Female 8:13 AM BELLMAN CAPTAIN Gender Identity Female 06/01/2020 9:42 PM BELLMAN CAPTAIN Sexual Orientation Straight 06/01/2020 9: 42 PM BELLMAN CAPTAIN documented as of this encounter Plan of Treatment Not on file documented as of this encounter Visit Diagnoses Diagnosis H/O mechanical aortic valve replacement residential current 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
--- OUTSIDE RECORDS SUMMARY | 2024-04-01 07:52 | XMS_ITS | Encounter Summary ---
Author Organization [facility] Address [address] [place] [address] Care Team Providers Care Portfolio Lead Name Role Phone Helena Yu Primary Care Provider +1- [phone] Encounter Details Date Type Department Care Team (Late st Contact Info) Description 11/18/2018 Telephone [facility] [address] [facility] [address] [facility] [address] [place] [address] Bindu Gaines MD [address] [facility] [address] [place] [address] Social History Tobacco Use Types Packs/Day Years Used Date Smoking Tobacco: Never Smokeless Tobacco: Never Alcohol Use Standard Drinks/Week Comments Yes 1 (1 standard drink = 0.6 oz pur e alcohol) PHQ-2 Answer Date Recorded PHQ-2 Score 1 12/03/2018 Comments Unknown Sex and Gender Information Value Date Recorded Sex Assigned at Not on file Legal Sex Female 8:13 AM MACHINE STRAW HAT PRESSER Gender Identity Female 06/01/2020 9:42 PM MACHINE STRAW HAT PRESSER Sexual Orientation Straight 06/01/2020 9: 42 PM MACHINE STRAW HAT PRESSER 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 Advised her that duloxetine may interfere with INR and she should have an INR drawn 5-7 days after starting the new medication. Patient will have INR drawn on 11/25/18. * Telephone Encounter - Connie Chambers - 11/18/2018 9:21 AM CDT Pt is starting duloxetine dr 30 mg today. Medication prescribed by Helena Yu. Pt wants a callback to discuss if it will impact her INR. [phone] documented in this encounter Plan of Treatment Not on file documented as of this encounter Visit Diagnoses Not on filedocumented in this encounter Care Teams Portfolio Lead Relationship Specialty Start Date End Date Helena Yu PA [address] [facility] [address] [place] [address] PCP - General Internal Medicine 09/23/18 07/29/20 documented as of this encounter
--- OUTSIDE RECORDS SUMMARY | 2024-04-01 07:52 | XMS_ITS | Encounter Summary ---
Author Organization [facility] Address [address] [facility] [address] [place] [address] Care Team Providers Care Air Hoist Operator Name Role Phone Helena Yu Primary Care Provider +1- [phone] Encounter Details Date Type Department Care Team (Latest Contact Info) Description 12/10/2018 Anticoagulation Visit [facility] [address] [facility] [address] [place] [address] Bindu Gaines MD [address] [address] H/O mechanical aortic valve replacement; [...] file Legal Sex Female 8:13 AM TRUCK RENTAL SERVICE ATTENDANT Gender Identity Female 06/01/2020 9:42 PM TRUCK RENTAL SERVICE ATTENDANT Sexual Orientation Straight 06/01/2020 9: 42 PM TRUCK RENTAL SERVICE ATTENDANT 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
--- OUTSIDE RECORDS SUMMARY | 2024-04-01 07:52 | XMS_ITS | Encounter Summary ---
Author Organization [facility] Address [address] [facility] [address] [place] [address] Care Team Providers Care Rag Baler Name Role Phone Helena Yu Primary Care Provider +1- [phone] Encounter Details Date Type Department Care Team (Latest Contact Info) Description 10/08/2018 Anticoagulation Visit [facility] [address] [facility] [address] [place] [address] Bindu Gaines MD [address] [facility] [place] [address] H/O mechanical aortic valve replacement; halfway current use of anticoagulant therapy Social History Tobacco Use Types Packs/Day Years Used Date Smoking Tobacco: Never Smokeless Tobacco: Never Alcohol Use Standard Drinks/Week Comments Yes 1 (1 standard drink = 0.6 oz pur e alcohol) Comments Unknown Sex and Gender Information Value Date Recorded Sex Assigned at Not on file Legal Sex Female 8:13 AM METAL ALLOY SCIENTIST Gender Identity Female 06/01/2020 9:42 PM METAL ALLOY SCIENTIST Sexual Orientation Straight 06/01/2020 9: 42 PM METAL ALLOY SCIENTIST documented as of this encounter Plan of Treatment Not on file documented as of this encounter Visit Diagnoses Diagnosis H/O mechanical aortic valve replacement halfway current 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 Care Teams Rag Baler Relationship Specialty Start Date End Date Helena Yu PA [address] [place] [address] PCP - General Internal Medicine 09/23/18 07/29/20 documented as of this encounter
--- OUTSIDE RECORDS SUMMARY | 2024-04-01 07:52 | XMS_ITS | Encounter Summary ---
Author Organization [facility] Address [address] [facility] [address] [place] [address] Care Team Providers Care Civil Estimator Name Role Phone Helena Yu Primary Care Provider +1- [phone] Encounter Details Date Type Department Care Team (Latest Contact Info) Description 11/26/2018 Anticoagulation Visit [facility] [address] [facility] [address] [place] [address] Bindu Gaines MD [address] [facility] [address] [place] [address] H/O mechanical aortic valve replacement; half-way current use of anticoagulant therapy Social History Tobacco Use Types Packs/Day Years Used Date Smoking Tobacco: Never Smokeless Tobacco: Never Alcohol Use Standard Drinks/Week Comments Yes 1 (1 standard drink = 0.6 oz pur e alcohol) Comments Unknown Sex and Gender Information Value Date Recorded Sex Assigned at Not on file Legal Sex Female 8:13 AM SAP BW BI DEVELOPER Gender Identity Female 06/01/2020 9:42 PM SAP BW BI DEVELOPER Sexual Orientation Straight 06/01/2020 9: 42 PM SAP BW BI DEVELOPER 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
--- OUTSIDE RECORDS SUMMARY | 2024-04-01 07:52 | XMS_ITS | Encounter Summary ---
Author Organization [facility] Care Team Providers Care Group Sales Representative Name Role Phone Helena Yu Primary Care Provider +1- [phone] Encounter Details Date Type Department Care Team (Latest Contact Info) Description 11/15/2018 Travel Social History Tobacco Use Types Packs/Day Years Used Date Smoking Tobacco: Never Smokeless Tobacco: Never Alcohol Use Standard Drinks/Week Comments Yes 1 (1 standard drink = 0.6 oz pur e alcohol) Comments Unknown Sex and Gender Information Value Date Recorded Sex Assigned at Not on file Legal Sex Female 8:13 AM EXPLOSIVES OPERATOR Gender Identity Female 06/01/2020 9:42 PM EXPLOSIVES OPERATOR Sexual Orientation Straight 06/01/2020 9: 42 PM EXPLOSIVES OPERATOR documented as of this encounter Plan of Treatment Not on file documented as of this encounter Visit Diagnoses Not on filedocumented in this encounter Care Teams Group Sales Representative Relationship Specialty Start Date End Date Helena Yu PA [address] [facility] [address] [place] [address] PCP - General Internal Medicine 09/23/18 07/29/20 documented as of this encounter
--- OUTSIDE RECORDS SUMMARY | 2024-04-01 07:52 | XMS_ITS | Encounter Summary ---
Author Organization [facility] Facility Care Team Providers Care Steel Sash Erector Name Role Phone Helena Yu Primary Care Provider +1- [phone] Encounter Details Date Type Department Care Team (Latest Contact Info) Description 12/17/2018 Travel Social History Tobacco Use Types Packs/Day Years Used Date Smoking Tobacco: Never Smokeless Tobacco: Never Alcohol Use Standard Drinks/Week Comments Yes 1 (1 standard drink = 0.6 oz pur e alcohol) PHQ-2 Answer Date Recorded PHQ-2 Score 1 12/03/2018 Comments Unknown Sex and Gender Information Value Date Recorded Sex Assigned at Not on file Legal Sex Female 8:13 AM TYPEWRITER RIBBON WINDER Gender Identity Female 06/01/2020 9:42 PM TYPEWRITER RIBBON WINDER Sexual Orientation Straight 06/01/2020 9: 42 PM TYPEWRITER RIBBON WINDER 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
--- OUTSIDE RECORDS SUMMARY | 2024-04-01 07:52 | XMS_ITS | Encounter Summary ---
Author Organization [facility] Address [address] [place] [address] Care Team Providers Care Cosmetologist Name Role Phone Helena Yu Primary Care Provider +1- [phone] Encounter Details Date Type Department Care Team (Latest Contact Info) Description 11/04/2018 Anticoagulation Visit [facility] [address] [facility] [address] [place] [address] Bindu Gaines MD [address] [place] [address] H/O mechanical aortic valve replacement; alf current use of anticoagulant therapy Social History Tobacco Use Types Packs/Day Years Used Date Smoking Tobacco: Never Smokeless Tobacco: Never Alcohol Use Standard Drinks/Week Comments Yes 1 (1 standard drink = 0.6 oz pur e alcohol) Comments Unknown Sex and Gender Information Value Date Recorded Sex Assigned at Not on file Legal Sex Female 8:13 AM UNIT MANAGER RN Gender Identity Female 06/01/2020 9:42 PM UNIT MANAGER RN Sexual Orientation Straight 06/01/2020 9: 42 PM UNIT MANAGER RN documented as of this encounter Plan of Treatment Not on file documented as of this encounter Visit Diagnoses Diagnosis H/O mechanical aortic valve replacement alf current 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 Care Teams Cosmetologist Relationship Specialty Start Date End Date Helena Yu PA [address] [place] [address] PCP - General Internal Medicine 09/23/18 07/29/20 documented as of this encounter
--- OUTSIDE RECORDS SUMMARY | 2024-04-01 07:52 | XMS_ITS | Encounter Summary ---
Author Organization [facility] Address [address] [facility] [address] [place] [address] Care Team Providers Care Patient Financial Rep Name Role Phone Helena Yu Primary Care Provider +1- [phone] Encounter Details Date Type Department Care Team (Late st Contact Info) Description 12/06/2018 Orders Only [facility] Information Management [address] [place] [address] Scanning, Provider Social History Tobacco Use Types Packs/Day Years Used Date Smoking Tobacco: Never Smokeless Tobacco: Never Alcohol Use Standard Drinks/Week Comments Yes 1 (1 standard drink = 0.6 oz pur e alcohol) PHQ-2 Answer Date Recorded PHQ-2 Total Score (If total score is 3 or more points, staff should administer the PHQ-9) 6 12/12/2019 Comments Unknown Sex and Gender Information Value Date Recorded Sex Assigned at Not on file Legal Sex Female 8:13 AM WIRE WRAPPING MACHINE OPERATOR Gender Identity Female 06/01/2020 9:42 PM WIRE WRAPPING MACHINE OPERATOR Sexual Orientation Straight 06/01/2020 9: 42 PM WIRE WRAPPING MACHINE OPERATOR 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 Not on file Not on file documented as of this encounter Plan of Treatment Not on file documented as of this encounter Procedures Procedure Name Priority Date/Time Associated Diagnosis Comments SCAN - LABS 12/06/2018 documented in this encounter Results * SCAN - LABS (12/06/2018) us Provider Scanning Final Result documented in this encounter Visit Diagnoses Not on filedocumented in this encounter Care Teams Patient Financial Rep Relationship Specialty Start Date End Date Helena Yu PA [address] [facility] [address] [place] [address] PCP - General Internal Medicine 09/23/18 07/29/20 documented as of this encounter
--- OUTSIDE RECORDS SUMMARY | 2024-04-01 07:52 | XMS_ITS | Encounter Summary ---
Author Organization [facility] Address [address] [facility] [address] [place] [address] Care Team Providers Care Heat Pump Installer Name Role Phone Helena Yu Primary Care Provider +1- [phone] Encounter Details Date Type Department Care Team (Latest Contact Info) Description 12/17/2018 Anticoagulation Visit [facility] [address] [facility] [address] [place] [address] Bindu Gaines MD [address] [address] H/O mechanical aortic valve replacement; prison current use of anticoagulant therapy Social History [...] on file Legal Sex Female 8:13 AM HOOD MAKER Gender Identity Female 06/01/2020 9:42 PM HOOD MAKER Sexual Orientation Straight 06/01/2020 9: 42 PM HOOD MAKER 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
--- OUTSIDE RECORDS SUMMARY | 2024-04-01 07:52 | XMS_ITS | Encounter Summary ---
Author Organization [facility] Address [address] [facility] [address] [place] [address] Care Team Providers Care Bicycle Subassembler Name Role Phone Helena Yu Primary Care Provider +1- [phone] Encounter Details Date Type Department Care Team (Late st Contact Info) Description 12/20/2018 Telephone [facility] [address] [facility] [address] [place] [address] Bindu Gaines MD [address] [address] Social History Tobacco Use Types Packs/Day Years Used Date Smoking Tobacco: Never Smokeless Tobacco: Never Alcohol Use Standard Drinks/Week Comments Yes 1 (1 standard drink = 0.6 oz pur e alcohol) PHQ-2 Answer Date Recorded PHQ-2 Score 1 12/03/2018 Comments Unknown Sex and Gender Information Value Date Recorded Sex Assigned at Not on file Legal Sex Female 8:13 AM MAIL PROCESSING ASSOCIATE Gender Identity Female 06/01/2020 9:42 PM MAIL PROCESSING ASSOCIATE Sexual Orientation Straight 06/01/2020 9: 42 PM MAIL PROCESSING ASSOCIATE 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 2008: EF 63%, LYNSEY 1.0-1.1 cm2, mean grad 8 mmHg (post-op) 2014: EF 63%, LYNSEY 1.2 cm2, mean grad 13 mmHg. She also has mild asthma. 11/2017 EF 60%, diast dysfxn, EF 60%, LYNSEY 1.5 cm2, mean grad 7 mmHg. 12/2018 EF 60-65%, diast dysfxn, LYNSEY 1.1 cm2, mean grad 6 mmHg, mild AI. LM for pt; Given echo results per ELU; instructed to call with any questions. documented in this encounter Plan of Treatment Not on file documented as of this encounter Visit Diagnoses Not on filedocumented in this encounter Care Teams Bicycle Subassembler Relationship Specialty Start Date End Date Helena Yu PA [address] [facility] 500 [place] [address] PCP - General Internal Medicine 09/23/18 07/29/20 documented as of this encounter
--- OUTSIDE RECORDS SUMMARY | 2024-04-01 07:52 | XMS_ITS | Encounter Summary ---
Author Organization [facility] Facility Care Team Providers Care Survey Statistician Name Role Phone Helena Yu Primary Care Provider +1- [phone] Encounter Details Date Type Department Care Team (Latest Contact Info) Description 11/17/2018 Travel Social History Tobacco Use Types Packs/Day Years Used Date Smoking Tobacco: Never Smokeless Tobacco: Never Alcohol Use Standard Drinks/Week Comments Yes 1 (1 standard drink = 0.6 oz pur e alcohol) Comments Unknown Sex and Gender Information Value Date Recorded Sex Assigned at Not on file Legal Sex Female 8:13 AM RIVER RAT Gender Identity Female 06/01/2020 9:42 PM RIVER RAT Sexual Orientation Straight 06/01/2020 9: 42 PM RIVER RAT 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
--- OUTSIDE RECORDS SUMMARY | 2024-04-01 07:52 | XMS_ITS | Encounter Summary ---
Author Organization [facility] Address [address] [place] [address] Care Team Providers Care Zoology Teacher Name Role Phone Helena Yu Primary Care Provider [phone]- [phone] Reason for Visit * Reason Comments Gynecologic Exam Wellness Visit Encounter Details Date Type Department Care Team (Latest Contact Info) Description 11/17/2018 2:45 PM CDT Office Visit [facility] Family Medicine [address] [place] [address] Helena Yu PA [address] [place] [address] Encounter for well woman exam with routine gynecological exam (Primary Dx); Moderate episode of recurrent major depressive disorder (CMS/HCC); Myalgia; Colon cancer screening; Breast cancer screening; Menopause; Need for Tdap vaccination; Primary osteoarthritis of both knees; Hypercholesteremia Social History Tobacco Use Types Packs/Day Years Used Date Smoking Tobacco: Never Smokeless Tobacco: Never Alcohol Use Standard Drinks/Week Comments Yes 1 (1 standard drink = 0.6 oz pur e alcohol) Comments Unknown Sex and Gender Information Value Date Recorded Sex Assigned at Not on file Legal Sex Female 8:13 AM OCCUPATIONAL THERAPY CO DIRECTOR Gender Identity Female 06/01/2020 9:42 PM OCCUPATIONAL THERAPY CO DIRECTOR Sexual Orientation Straight 06/01/2020 9: 42 PM OCCUPATIONAL THERAPY CO DIRECTOR 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 file Not on file Not on file documented as of this encounter Last Filed Vital Signs Vital Sign Reading Time Taken Comments Blood Pressure 110/64 11/17/2018 2:53 PM CDT Pulse 88 11/17/2018 2:53 PM CDT Temperature 36.4 ??C (97.6 ??F) 11/17/2018 2:53 PM CD T Respiratory Rate - - Oxygen Saturation 95% 11/17/2018 2:53 PM CDT Inhaled Oxygen Concentration - - Weight 62.4 kg (137 lb 9.6 oz) 11/17/2018 2:53 P M CDT Height 156.2 cm (5' 1.5 ) 11/17/2018 2:53 PM CDT Body Mass Index 25.58 11/17/2018 2:53 PM CDT documented in this encounter Patient Instructions * Patient Instructions* Helena Yu PA - 11/17/2018 2:45 PM CDT Please feel free to call the office if you have any questions or concerns. Call your insurance regarding Shingrix Coverage ([id number]). Ask should you get it in the office or at the pharmacy for the best coverage. documented in this encounter Ordered Prescriptions Prescription Sig Dispense Quantity Refills Last Filled Start Date End Date celecoxib (CeleBREX) 200 mg capsuleIndications :Myalgia Take 1 capsule (200 mg total) by mouth daily 90 capsule 2 11/17/[address] (CYMBALTA) 30 mg capsuleIndications :Moderate episode of recurrent major depressive disorder (HCC) Take 1 capsule (30 mg total) by mouth daily 30 capsule 2 11/17/2018 9 documented in this encounter Progress Notes * Helena Yu PA - 11/17/2018 2:45 PM CDT Images from the original note were not included. Subjective/Objective Patient ID: Yessy Donaldson is a 63 y.o. female. Chief Complaint Gynecologic Exam and Wellness Visit HPI Pt presents for well woman exam Last Pap 3 years ago LMP about 50yo. NO bleeding since. No vaginal sxs. No vaginal bleeding No breast complaints. No vasomotor sxs. Complains of aches and pains ---wonders if could be fibromyalgia. 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 Has been more crabby. She is on Celebrex---Reviewed increased bleeding risks with the coumadin. She states she knows thisbut can't be off it due to the pain. Mammogram -- due DXA - due Colonoscopy 10 years ago. Diverticulosis. Tdap-2005 Shingrix -- Notes LLE lateral leg pain for the last few days. No calf pain. Will have knee pain at times. Review of Systems Constitutional: Negative for fever. HENT: Negative for congestion. Respiratory: Negative for shortness of breath. Cardiovascular: Negative for chest pain. Gastrointestinal: Negative for constipation and diarrhea. Vitals: 11/17/18 1453 BP: 110/64 BP Location: Left arm Patient Position: Sitting Pulse: 88 Temp: 36.4 ??C (97.6 ??F) SpO2: 95% Weight: 62.4 kg (137 lb 9.6 oz) Height: 156.2 cm (5' 1.5 ) Physical Exam Constitutional: She is oriented to person, place, and time. She appears well- developed and well-nourished. HENT: Head: Normocephalic and atraumatic. Cardiovascular: Normal rate and regular rhythm. No murmur heard. Pulmonary/Chest: Effort normal and breath sounds normal. Abdominal: Soft. There is no tenderness. Genitourinary: Genitourinary Comments: No thyromegally. Breasts symmetric without dimpling discharge discoloration or masses. No lymphadenopathy (B) Abdomen soft, non-tender. External genitalia normal appearing. IVC normal. Minimal discharge. Pap obtained. Bladder without tenderness. Uterus smooth, nontender, normal size. No masses or tenderness of adnexa or ovaries. Musculoskeletal: She exhibits no edema. Neurological: She is alert and oriented to person, place, and time. Skin: Skin is warm and dry. No rash noted. Psychiatric: She has a normal mood and affect. Nursing note and vitals reviewed. Assessment/Plan Diagnoses and all orders for this visit: Encounter for well woman exam with routine gynecological exam (Z01.419) (Primary) Assessment & Plan: Encouraged healthy lifestyle, good nutrition and exercise. Encouraged Calcium and Vitamin D and weight bearing exercise for bone health. Reviewed immunizations Reviewed age appropirate screenings. Orders: - Cytology; Future Moderate episode of recurrent major depressive disorder (CMS/HCC) (F33.1) Assessment & Plan: This is a significant, separately identifiable problem that was evaluated and managed on the same day as the wellness exam Increased stress and pain. Start Cymbalta. Reviewed risks, benefit, alternatives, side effects and proper use. Followup in 4-6 weeks. Orders: - DULoxetine DR (CYMBALTA) 30 mg capsule; Take 1 capsule (30 mg total) by mouth daily Myalgia (M79.10) Assessment & Plan: Stressed caution with NSAIDs and coumadin. Start Cymbalta to see if helps with pain as well as stress. Orders: - celecoxib (CeleBREX) 200 mg capsule; Take 1 capsule (200 mg total) by mouth daily Colon cancer screening (Z12.11) Assessment & Plan: cologuard order sent Orders: - Stool DNA - Cologuard; Future Breast cancer screening (Z12.31) Assessment & Plan: Mammogram order provided Orders: - Screening Mammogram Bilateral W Thai; Future Menopause (Z78.0) Assessment & Plan: Check DXA Orders: - Dexa Axial Skeleton Bone Density 1 or 2 Site; Future Need for Tdap vaccination (Z23) Assessment & Plan: Tdap updated. Primary osteoarthritis of both knees (M17.0) Assessment & Plan: Tylenol prn or topical otcs Hypercholesteremia (E78.00) Assessment & Plan: Encouraged patient to continue low fat/low chol diet. Continue exercise. Increase good fats in the diet. Monitor labs as needed. Continue statin Helena Yu PA-C Cosigned by Sherif Pagan MD at 11/22/2018 8:32 AM CDT documented in this encounter Miscellaneous Notes * Assessment & Plan Note - Helena Yu PA - 11/21/2018 11:32 PM CDT Associated Problem(s): Need for Tdap vaccination (Resolved 02/20/2019) Tdap updated. * Assessment & Plan Note - Helena Yu PA - 11/21/2018 11:31 PM CDT Associated Problem(s): Moderate episode of recurrent major depressive disorder (HCC) This is a significant, separately identifiable problem that was evaluated and managed on the same day as the wellness exam Increased stress and pain. Start Cymbalta. Reviewed risks, benefit, alternatives, side effects and proper use. Followup in 4-6 weeks. * Assessment & Plan Note - Helena Yu PA - 11/21/2018 11:31 PM CDT Associated Problem(s): Encounter for well woman exam with routine gynecological exam (Deleted) Encouraged healthy lifestyle, good nutrition and exercise. Encouraged Calcium and Vitamin D and weight bearing exercise for bone health. Reviewed immunizations Reviewed age appropirate screenings. * Assessment & Plan Note - Helena Yu PA - 11/21/2018 11:31 PM CDT Associated Problem(s): Colon cancer screening (Deleted) cologuard order sent * Assessment & Plan Note - Helena Yu PA - 11/21/2018 11:31 PM CDT Associated Problem(s): Breast cancer screening (Deleted) Mammogram order provided * Assessment & Plan Note - Helena Yu PA - 11/21/2018 11:31 PM CDT Associated Problem(s): Hypercholesteremia (Resolved 12/10/2020) Encouraged patient to continue low fat/low chol diet. Continue exercise. Increase good fats in the diet. Monitor labs as needed. Continue statin * Assessment & Plan Note - Helena Yu PA - 11/21/2018 11:30 PM CDT Associated Problem(s): Osteoarthritis of knee Tylenol prn or topical otcs * Assessment & Plan Note - Helena Yu PA - 11/21/2018 11:30 PM CDT Associated Problem(s): Menopause Check DXA * Assessment & Plan Note - Helena Yu PA - 11/21/2018 11:29 PM CDT Associated Problem(s): Myalgia Stressed caution with NSAIDs and coumadin. Start Cymbalta to see if helps with pain as well as stress. documented in this encounter Plan of Treatment Scheduled Orders Name Type Priority Associated Diagnoses Orde r Schedule Stool DNA - Cologuard Lab Routine Colon cancer screening Expected: 11/17/2018, Expires: 11/18/2019 documented as of this encounter Visit Diagnoses Diagnosis Encounter for well woman exam with routine gynecological exam- Primary Moderate episode of recurrent major depressive disorder (HCC) Myalgia Unspecified myalgia and myositis Colon cancer screening Special screening for malignant neoplasms, colon Menopause Symptomatic menopausal or female climacteric states Need for Tdap vaccination Need for prophylactic vaccination with combined hhvgrlgstd-orpnjiu-xsbnjynpb (DTP) vaccine Primary osteoarthritis of both knees Hypercholesteremia Pure hypercholesterolemia documented in this encounter Discontinued Medications Medication Sig Discontinue Reason Start Date End Da te warfarin (COUMADIN) 2 mg tablet Take 1 tablet (2 mg total) by mouth once a week. Take 2 tablets every Thursday to equal 4mg (5mg tablet all other days) or as directed 02/23/2018 11/17/2018 warfarin (COUMADIN) 5 mg tablet TAKE 1 TABLET BY MOUTH EVERY DAY 11/16/2018 11/17/2018 warfarin (COUMADIN) 1 mg tablet Take as directed 12/04/2008 11/17/2018 warfarin (COUMADIN) 2 mg tablet TAKE 2 TABLETS (4 MG) - AND TAKE 5 MG -W- BY MOUTH ONCE DAILY OR DIRECTED 08/30/2018 11/17/2018 warfarin (COUMADIN) 5 mg tablet Take 4mg TuThSaSu and take 5mg MWF orally once daily or as directed by Dr. Gaines 04/01/2018 11/17/2018 celecoxib (CeleBREX) 200 mg capsule Take 1 capsule (200 mg total) by mouth daily Reorder 09/23/2018 11/17/2018 documented as of this encounter Historical Medications * This list may reflect changes made after this encounter. betamethasone, augmented, (DIPROLENE) 0.05 % ointment 0.05 % daily 04/27/2018 12/12/2019 triamcinolone (KENALOG) 0.1 % ointment 0.1 % 2 (two) times a day 06/28/2018 12/12/2019 added in this encounter Care Teams Zoology Teacher Relationship Specialty Start Date End Date Helena Yu PA [address] [facility] [address] [place] [address] PCP - General Internal Medicine 09/23/18 07/29/20 documented as of this encounter
--- OUTSIDE RECORDS SUMMARY | 2024-04-01 07:52 | XMS_ITS | Encounter Summary ---
Author Organization [facility] Address [address] [place] [address] Care Team Providers Care Regional Telecommunications Specialist Name Role Phone Helena Yu Primary Care Provider [phone]- [phone] Encounter Details Date Type Department Care Team (Late st Contact Info) Description 11/17/[address] [facility] Medical [facility] Family Medicine [address] [place] [address] Helena Yu PA [address] [place] [address] Social History Tobacco Use Types Packs/Day Years Used Date Smoking Tobacco: Never Smokeless Tobacco: Never Alcohol Use Standard Drinks/Week Comments Yes 1 (1 standard drink = 0.6 oz pur e alcohol) Comments Unknown Sex and Gender Information Value Date Recorded Sex Assigned at Not on file Legal Sex Female 8:13 AM TEA BLENDER Gender Identity Female 06/01/2020 9:42 PM TEA BLENDER Sexual Orientation Straight 06/01/2020 9: 42 PM TEA BLENDER 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 Not on file Not on file documented as of this encounter Plan of Treatment Not on file documented as of this encounter Procedures Procedure Name Priority Date/Time Associated Diagnosis Comments THINPREP TIS PAP AND HR HPV DNA Routine 11/17/2018 3:23 PM CDT documented in this encounter Results * THINPREP TIS PAP AND HR HPV DNA (11/17/2018 3:23 PM CDT) CLINICAL INFORMATION: [facility] - Comment:Postmenopausal LMP 50 YRS OLD [facility] - Previous Pap [facility] - Comment:INFORMATION NOT PROV IDED Prev. Bx [facility] - Comment:INFORMATION NOT PROV IDED SOURCE: [facility] - Comment:Cervix, Endocervix Pap, specimen adequacy [facility] - Comment:SATISFACTORY FOR CHRISTAL LUATION HPV interp [facility] - Comment: Negative for intraepithelial lesion or malignancy. Atrophic pattern; predominantly parabasal cells COMMENTS [facility] - Comment: This Pap test has been evaluated with computer assisted technology. Mid Level Practitioner NIYAH SHARKEY [facility] Comment: AMW, CT(ASCP) CT screening location: [place] [address] [place] [address] Comment [facility] - Comment: EXPLANATORY NOTE: The Pap is a screening test for cervical cancer. It is not a diagnostic test and is subject to false negative and false positive results. It is most reliable when a satisfactory sample, regularly obtained, is submitted with relevant clinical findings and history, and when the Pap result is evaluated along with historic and current clinical information. Human papillomavirus DNA, High Risk E6/E7 Not Detected NOT DETECTED [facility] Comment: Not Detected High Risk HPV types (16,18,31,33,35,39,45,51,52, 56,58,59,66,68) were not detected. Other HPV types which cause anogenital lesions may be present. The significance of the other types of HPV in malignant processes has not been established. Methodology: Real Time PCR ? 11/17/2018 3:23 PM CDT 11/19/2018 8:51 AM CDT Narrative [facility] - 11/23/2018 8:41 AM CDT FASTING: UNKNOWN Resulting Agency Comment Performing Organization Information: ?Site ID: AMD ?Name: [employer] ?Address: [address] [place] [address] ?Director: Wisam Villarreal M.D.,PhD ?Site ID: [id number] ?Name: [facility] ?Address: [address] [place] [address] ?Director: Adilson Hameed Helena [facility]TOLOGY ORDERABLES nal Result [facility] [place], [place] [facility] [place], [place] documented in this encounter Visit Diagnoses Not on filedocumented in this encounter Care Teams Regional Telecommunications Specialist Relationship Specialty Start Date End Date Helena Yu PA [address] [facility] [address] [place] [address] PCP - General Internal Medicine 09/23/18 07/29/20 documented as of this encounter
--- OUTSIDE RECORDS SUMMARY | 2024-04-01 07:52 | XMS_ITS | Encounter Summary ---
Author Organization [facility] Address [address] [place] [address] Care Team Providers Care Cue Selector Name Role Phone Helena Yu Primary Care Provider [phone]- [phone] Reason for Visit * Diagnostic Imaging (Routine) - Closed Specialty Diagnoses / Procedures Referred By Contac t Referred To Contact Diagnoses H/O mechanical aortic valve replacement Procedures Transthoracic Echo Complete W Doppler/CF Lalo Santamaria MD Phone: tel: fax: [facility] Referral ID Status Reason Start Date Expiration Date Visits Re quested Visits Authorized [id number] Closed 11/15/2018 05/26/2020 1 1 Encounter Details Date Type Department Care Team (Latest Contact Info) Description 12/17/2018 2:00 PM CDT Ancillary Procedure [facility] Cardiology [address] [place] [address] H/O mechanical aortic valve replacement [...] on file Legal Sex Female 8:13 AM TIRE FABRICATOR Gender Identity Female 06/01/2020 9:42 PM TIRE FABRICATOR Sexual Orientation Straight 06/01/2020 9: 42 PM TIRE FABRICATOR 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 Not on file Not on file documented as of this encounter Plan of Treatment Not on file documented as of this encounter Procedures Procedure Name Priority Date/Time Associated Diagnosis Comments TRANSTHORACIC ECHO (TTE) COMPLETE W DOPPLER/CF WO CONTRAST Routine 12/17/2018 2:49 PM CDT H/O mechanical aortic valve replacement documented in this encounter Results * TRANSTHORACIC ECHO (TTE) COMPLETE W DOPPLER/CF WO CONTRAST (12/17/2018 2:49 PM CDT) Anatomical Region Laterality Modality Ultrasound 12/17/2018 11:5 2 AM CDT Narrative 12/17/2018 5:47 PM CDT [facility] [address] [facility] [address], [place] [address] [address], [place] [address] P:[phone] P:[phone] Echocardiographic Report Patient Name: YESSY NIXON : 1955 Study Date: 12/17/2018 11:52:04 AM Gender: F Tech: Location: OR Ref.Provider: EDYTA Height(Cm): 155 BSA: 1.61 Weight(Kg): 62.14 Heart Rate: 80 BP: 90/55 Quality: Good Order Provider: LALO SANTAMARIA Procedures: [...] Findings: Interpretation Site: Exam was interpreted at [facility]. Left Ventricle: Normal left ventricular systolic [...] - 12/17/2018 [facility] [address] [facility] [address], [place] [address] [address], [place], [place] [address] P:[phone] P:[phone] Echocardiographic Report Patient Name: YESSY NIXONPatient ID: [id number] : [id number] Date: 12/17/2018 11:52:04 AM Gender: FAccession #: [id number] Tech: GMLocation: OR Ref.Provider: Claudia(Cm): 155 BSA: 1.61Weight(Kg): 62.14 Heart Rate: 80BP: 90/55 Quality: GoodOrder Provider: LALO SANTAMARIA Procedures: Echocardiographic [...] 0.40 - 0.80 ] m/s MV Decel Ospv391 [ 150 - 200 ] msec PV Peak Vel0.87 [ 0.40 - 0.80 ] m/s TR Peak Vel2.43 [ 0.40 - 0.80 ] m/s TR Peak PG 24mmHg RVSP32.00 mmHg E'0.11 E/E' 6 Findings: Interpretation Site: Exam was interpreted at [facility]. Left Ventricle: Normal left ventricular systolic [...] By: Giuseppe Bullard MD 2018-12-17 17:47:46 CDT Lalo Santamaria MD CV ECHO PROCEDURES Final Re sult documented in this encounter Visit Diagnoses Diagnosis H/O mechanical aortic valve replacement documented in this encounter Care Teams Cue Selector Relationship Specialty Start Date End Date Helena Yu PA [address] [facility] [address] [place] [address] PCP - General Internal Medicine 09/23/18 07/29/20 documented as of this encounter
--- OUTSIDE RECORDS SUMMARY | 2024-04-01 07:53 | XMS_ITS | Encounter Summary ---
Author Organization [facility] Address [address] [place] [address] Care Team Providers Care Wool Fleece Grader Name Role Phone Unavailable Primary Care Provider Unavailabl e Encounter Details Date Type Department Care Team (Late st Contact Info) Description 04/16/2018 Telephone [facility] [address], [place] [address] Bindu Gaines MD [address] [facility] [address] [place] [address] Social History Tobacco Use Types Packs/Day Years Used Date Smoking Tobacco: Never Smokeless Tobacco: Never Alcohol Use Standard Drinks/Week Comments Yes 1 (1 standard drink = 0.6 oz pur e alcohol) Comments Unknown Sex and Gender Information Value Date Recorded Sex Assigned at Not on file Legal Sex Female 8:13 AM SALOONKEEPER Gender Identity Female 06/01/2020 9:42 PM SALOONKEEPER Sexual Orientation Straight 06/01/2020 9: 42 PM SALOONKEEPER documented as of this encounter Miscellaneous Notes * Telephone Encounter - Juany Mccabe RN - 04/19/2018 8:33 AM SALOONKEEPER Noted. Will await results. ONKEEPER * Telephone Encounter - Chambers Connie - 04/19/2018 8:23 AM CST Pt will check INR tomorrow. cb [phone] ONKEEPER * Telephone Encounter - Suzanne Germain RN - 04/16/2018 12:08 PM SALOONKEEPER LMOM check INR on Thursday or Thursday to see if an adjustment should be made to warfarin dose. ONKEEPER * Telephone Encounter - Tabitha Craft - 04/16/2018 11:25 AM SALOONKEEPER Pt called to inform she is currently taking clindamycin for 10 days, pt will like to know if the medication will affect her INR results, ONKEEPER documented in this encounter Plan of Treatment Not on file documented as of this encounter Visit Diagnoses Not on filedocumented in this encounter
--- OUTSIDE RECORDS SUMMARY | 2024-04-01 07:53 | XMS_ITS | Encounter Summary ---
Author Organization [facility] Address [address] [place] [address] Care Team Providers Care Motel Operator Name Role Phone Unavailable Primary Care Provider Unavailabl e Encounter Details Date Type Department Care Team (Late st Contact Info) Description 04/21/2018 Telephone [facility] [address] [facility] [address] [facility] [address] [place] [address] Bindu Gaines MD [address] [facility] [address] [place] [address] Social History Tobacco Use Types Packs/Day Years Used Date Smoking Tobacco: Never Smokeless Tobacco: Never Alcohol Use Standard Drinks/Week Comments Yes 1 (1 standard drink = 0.6 oz pur e alcohol) Comments Unknown Sex and Gender Information Value Date Recorded Sex Assigned at Not on file Legal Sex Female 8:13 AM PRODUCTION HONING MACHINE OPERATOR Gender Identity Female 06/01/2020 9:42 PM PRODUCTION HONING MACHINE OPERATOR Sexual Orientation Straight 06/01/2020 9: 42 PM PRODUCTION HONING MACHINE OPERATOR documented as of this encounter Miscellaneous Notes * Telephone Encounter - Marialuisa Fagan RN - 04/21/2018 8:36 AM PRODUCTION HONING MACHINE OPERATOR Spoke to pt; INR addressed; See flowsheet. UCTION HONING MACHINE OPERATOR * Telephone Encounter - Tabitha Craft - 04/21/2018 8:30 AM PRODUCTION HONING MACHINE OPERATOR Pt returned call UCTION HONING MACHINE OPERATOR * Telephone Encounter - Edelmira Ware RN - 04/21/2018 8:25 AM PRODUCTION HONING MACHINE OPERATOR I called the patient back. Her voicemail has not been set up yet. No ability to leave a message. UCTION HONING MACHINE OPERATOR * Telephone Encounter - Connie Chambers - 04/21/2018 8:15 AM CST Pt returned call regarding INR. cb [phone] UCTION HONING MACHINE OPERATOR documented in this encounter Plan of Treatment Not on file documented as of this encounter Visit Diagnoses Not on filedocumented in this encounter
--- OUTSIDE RECORDS SUMMARY | 2024-04-01 07:53 | XMS_ITS | Encounter Summary ---
Author Organization [facility] Address [address] [facility] [address] [place] [address] Care Team Providers Care Compensation Administrator Name Role Phone Unavailable Primary Care Provider Unavailabl e Encounter Details Date Type Department Care Team (Latest Contact Info) Description 01/19/2018 Anticoagulation Visit [facility] [address] [place] [address] Bindu Gaines MD [address] [facility] [address] [place] [address] H/O mechanical aortic valve replacement; halfway current use of anticoagulant therapy Social History Tobacco Use Types Packs/Day Years Used Date Smoking Tobacco: Never Smokeless Tobacco: Never Alcohol Use Standard Drinks/Week Comments Yes 1 (1 standard drink = 0.6 oz pur e alcohol) Comments Unknown Sex and Gender Information Value Date Recorded Sex Assigned at Not on file Legal Sex Female 8:13 AM AGRICULTURE TEACHER Gender Identity Female 06/01/2020 9:42 PM AGRICULTURE TEACHER Sexual Orientation Straight 06/01/2020 9: 42 PM AGRICULTURE TEACHER documented as of this encounter Plan of Treatment Not on file documented as of this encounter Procedures Procedure Name Priority Date/Time Associated Diagnosis Comments PROTIME-INR Routine 01/18/2018 documented in this encounter Results * (ABNORMAL) Protime-INR (01/18/2018) INR 3.90(A) 0.9 - 1.1 [facility] Blood specimen (specimen) us Historical Provider LAB BLOOD ORDERABLES Antonina hernandez Result [facility] documented in this encounter Visit Diagnoses Diagnosis H/O mechanical aortic valve replacement terminal press 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
--- OUTSIDE RECORDS SUMMARY | 2024-04-01 07:53 | XMS_ITS | Encounter Summary ---
Author Organization [facility] Address [address] [facility] [address] [place] [address] Care Team Providers Care Top Inventory Control Executive Name Role Phone Unavailable Primary Care Provider Unavailabl e Encounter Details Date Type Department Care Team (Latest Contact Info) Description 01/06/2018 Anticoagulation Visit [facility] [address] [place] [address] Bindu Gaines MD [address] [facility] [address] [place] [address] H/O mechanical aortic valve replacement; group home current use of anticoagulant therapy Social History Tobacco Use Types Packs/Day Years Used Date Smoking Tobacco: Never Smokeless Tobacco: Never Alcohol Use Standard Drinks/Week Comments Yes 1 (1 standard drink = 0.6 oz pur e alcohol) Comments Unknown Sex and Gender Information Value Date Recorded Sex Assigned at Not on file Legal Sex Female 8:13 AM TRADING FLOOR OPERATOR Gender Identity Female 06/01/2020 9:42 PM TRADING FLOOR OPERATOR Sexual Orientation Straight 06/01/2020 9: 42 PM TRADING FLOOR OPERATOR documented as of this encounter Plan of Treatment Not on file documented as of this encounter Procedures Procedure Name Priority Date/Time Associated Diagnosis Comments PROTIME-INR Routine 01/05/2018 documented in this encounter Results * (ABNORMAL) Protime-INR (01/05/2018) INR 2.90(A) 0.9 - 1.1 [facility] Blood specimen (specimen) us Historical Provider LAB BLOOD ORDERABLES Antonina hernandez Result [facility] documented in this encounter Visit Diagnoses Diagnosis H/O mechanical aortic valve replacement emt intermediate current 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
--- OUTSIDE RECORDS SUMMARY | 2024-04-01 07:53 | XMS_ITS | Encounter Summary ---
Author Organization [facility] Address [address] [facility] [address] [place] [address] Care Team Providers Care Senior Property Manager Name Role Phone Unavailable Primary Care Provider Unavailabl e Encounter Details Date Type Department Care Team (Latest Contact Info) Description 12/25/2017 Anticoagulation Visit [facility] [address] [place] [address] Bindu Gaines MD [address] [facility] [address] [place] [address] H/O mechanical aortic valve replacement; care home [...] file Legal Sex Female 8:13 AM FREELANCE DIRECTOR Gender Identity Female 06/01/2020 9:42 PM FREELANCE DIRECTOR Sexual Orientation Straight 06/01/2020 9: 42 PM FREELANCE DIRECTOR documented as of this encounter Plan of Treatment Not on file documented as of this encounter Procedures Procedure Name Priority Date/Time Associated Diagnosis Comments PROTIME-INR Routine 12/24/2017 documented in this encounter Results * (ABNORMAL) Protime-INR (12/24/2017) INR 2.70(A) 0.9 - 1.1 [facility] Blood specimen (specimen) us Historical Provider LAB BLOOD ORDERABLES Antonina hernandez Result [facility] documented in this encounter Visit Diagnoses Diagnosis H/O mechanical aortic valve replacement intermediate manager current 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
--- OUTSIDE RECORDS SUMMARY | 2024-04-01 07:53 | XMS_ITS | Encounter Summary ---
Author Organization [facility] Address [address] [facility] [address] [place] [address] Care Team Providers Care Electrician Wiring Name Role Phone Unavailable Primary Care Provider Unavailabl e Encounter Details Date Type Department Care Team (Late st Contact Info) Description 02/12/2018 Telephone [facility] [address] [facility] [address] [address] Bindu Gaines MD [address] [facility] [address] [place] [address] Social History Tobacco Use Types Packs/Day Years Used Date Smoking Tobacco: Never Smokeless Tobacco: Never Alcohol Use Standard Drinks/Week Comments Yes 1 (1 standard drink = 0.6 oz pur e alcohol) Comments Unknown Sex and Gender Information Value Date Recorded Sex Assigned at Not on file Legal Sex Female 8:13 AM NOVELTY CANDY MAKER Gender Identity Female 06/01/2020 9:42 PM NOVELTY CANDY MAKER Sexual Orientation Straight 06/01/2020 9: 42 PM NOVELTY CANDY MAKER documented as of this encounter Miscellaneous Notes * Telephone Encounter - Marialuisa Fagan RN - 02/12/2018 9:51 AM CDT Spoke to pt; She states she missed last noc's dose of warfarin; see INR flowsheet. * Telephone Encounter - Saira Reyes - 02/12/2018 9:34 AM CDT Pt called and asked for me by name - said she was returning my call. She actually needs to speak tothe nurse that called her. Will forward message to nurses. documented in this encounter Plan of Treatment Not on file documented as of this encounter Visit Diagnoses Not on filedocumented in this encounter
--- OUTSIDE RECORDS SUMMARY | 2024-04-01 07:53 | XMS_ITS | Encounter Summary ---
Author Organization [facility] Medical [facility] Address [address] [facility] [address] [place] [address] Care Team Providers Care Boiler Tender Name Role Phone Unavailable Primary Care Provider Unavailabl e Encounter Details Date Type Department Care Team (Latest Contact Info) Description 04/21/2018 Anticoagulation Visit [facility] [address] [facility] [address] [address] Bindu Gaines MD [address] [address] H/O mechanical aortic valve replacement; half-way current use of anticoagulant therapy Social History Tobacco Use Types Packs/Day Years Used Date Smoking Tobacco: Never Smokeless Tobacco: Never Alcohol Use Standard Drinks/Week Comments Yes 1 (1 standard drink = 0.6 oz pur e alcohol) Comments Unknown Sex and Gender Information Value Date Recorded Sex Assigned at Not on file Legal Sex Female 8:13 AM TEST ENGINEER Gender Identity Female 06/01/2020 9:42 PM TEST ENGINEER Sexual Orientation Straight 06/01/2020 9: 42 PM TEST ENGINEER documented as of this encounter Plan of Treatment Not on file documented as of this encounter Visit Diagnoses Diagnosis H/O mechanical aortic valve replacement half-way current 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
--- OUTSIDE RECORDS SUMMARY | 2024-04-01 07:53 | XMS_ITS | Encounter Summary ---
Author Organization [facility] Address [address] [facility] [address] [place] [address] Care Team Providers Care Cad Designer Name Role Phone Unavailable Primary Care Provider Unavailabl e Encounter Details Date Type Department Care Team (Latest Contact Info) Description 08/19/2018 Anticoagulation Visit [facility] [address] [facility] [address], [place] [address] Bindu Gaines MD [address] [address] H/O mechanical aortic valve replacement; longterm current use of anticoagulant therapy Social History Tobacco Use Types Packs/Day Years Used Date Smoking Tobacco: Never Smokeless Tobacco: Never Alcohol Use Standard Drinks/Week Comments Yes 1 (1 standard drink = 0.6 oz pur e alcohol) Comments Unknown Sex and Gender Information Value Date Recorded Sex Assigned at Not on file Legal Sex Female 8:13 AM WORM RAISER Gender Identity Female 06/01/2020 9:42 PM WORM RAISER Sexual Orientation Straight 06/01/2020 9: 42 PM WORM RAISER documented as of this encounter Plan of Treatment Not on file documented as of this encounter Visit Diagnoses Diagnosis H/O mechanical aortic valve replacement longterm current 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
--- OUTSIDE RECORDS SUMMARY | 2024-04-01 07:53 | XMS_ITS | Encounter Summary ---
Author Organization [facility] Address [address] [facility] [address] [place] [address] Care Team Providers Care Sys Dir Name Role Phone Unavailable Primary Care Provider Unavailabl e Encounter Details Date Type Department Care Team (Latest Contact Info) Description 12/11/2017 Anticoagulation Visit [facility] [address] [place] [address] Bindu Gaines MD [address] [facility] [address] [place] [address] H/O mechanical aortic valve replacement; group home current use of anticoagulant therapy Social History Tobacco Use Types Packs/Day Years Used Date Smoking Tobacco: Never Smokeless Tobacco: Never Alcohol Use Standard Drinks/Week Comments Yes 1 (1 standard drink = 0.6 oz pur e alcohol) Comments Unknown Sex and Gender Information Value Date Recorded Sex Assigned at Not on file Legal Sex Female 8:13 AM MILLWRIGHT SUPERVISOR Gender Identity Female 06/01/2020 9:42 PM MILLWRIGHT SUPERVISOR Sexual Orientation Straight 06/01/2020 9: 42 PM MILLWRIGHT SUPERVISOR documented as of this encounter Plan of Treatment Not on file documented as of this encounter Procedures Procedure Name Priority Date/Time Associated Diagnosis Comments PROTIME-INR Routine 12/11/2017 documented in this encounter Results * (ABNORMAL) Protime-INR (12/11/2017) INR 2.40(A) 0.9 - 1.1 [facility] Blood specimen (specimen) us Historical Provider LAB BLOOD ORDERABLES Antonina hernandez Result [facility] documented in this encounter Visit Diagnoses Diagnosis H/O mechanical aortic valve replacement 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
--- OUTSIDE RECORDS SUMMARY | 2024-04-01 07:53 | XMS_ITS | Encounter Summary ---
Author Organization [facility] Address [address] [facility] [address] [place] [address] Care Team Providers Care Refinery Operator Vapor Recovery Unit Name Role Phone Helena Yu Primary Care Provider [phone] Encounter Details Date Type Department Care Team (Late st Contact Info) Description 11/23/2017 Telephone [facility] [address] [facility] [address] [place] [address] Bindu Gaines MD [address] [facility] [address] [place] [address] Social History Tobacco Use Types [...] on file Legal Sex Female 8:13 AM WRAPPER SELECTOR Gender Identity Female 06/01/2020 9:42 PM WRAPPER SELECTOR Sexual Orientation Straight 06/01/2020 9: 42 PM WRAPPER SELECTOR documented as of this encounter Plan of Treatment Not on file documented as of this encounter Visit Diagnoses Not on filedocumented in this encounter Care Teams Refinery Operator Vapor Recovery Unit Relationship Specialty Start Date End Date Helena Yu PA [address] [facility] [facility] [address] [place] [address] PCP - General Internal Medicine 09/23/18 07/29/20 documented as of this encounter
--- OUTSIDE RECORDS SUMMARY | 2024-04-01 07:53 | XMS_ITS | Encounter Summary ---
Author Organization [facility] Address [address] [facility] [address] [place] [address] Care Team Providers Care Senior Contracts Manager Name Role Phone Unavailable Primary Care Provider Unavailabl e Encounter Details Date Type Department Care Team (Latest Contact Info) Description 07/14/2018 Anticoagulation Visit [facility] [address] [facility] [address] [place] [address] Juany Mccabe RN H/O mechanical aortic valve replacement; [facility] current use of anticoagulant therapy Social History Tobacco Use Types Packs/Day Years Used Date Smoking Tobacco: Never Smokeless Tobacco: Never Alcohol Use Standard Drinks/Week Comments Yes 1 (1 standard drink = 0.6 oz pur e alcohol) Comments Unknown Sex and Gender Information Value Date Recorded Sex Assigned at Not on file Legal Sex Female 8:13 AM RESIDENTIAL ASSISTANT Gender Identity Female 06/01/2020 9:42 PM RESIDENTIAL ASSISTANT Sexual Orientation Straight 06/01/2020 9: 42 PM RESIDENTIAL ASSISTANT documented as of this encounter Plan of Treatment Not on file documented as of this encounter Visit Diagnoses Diagnosis H/O mechanical aortic valve replacement FDC current 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
--- OUTSIDE RECORDS SUMMARY | 2024-04-01 07:53 | XMS_ITS | Encounter Summary ---
Author Organization [facility] Medical [facility] Address [address] [facility] [address] [place] [address] Care Team Providers Care Manufacturing Assembler Name Role Phone Unavailable Primary Care Provider Unavailabl e Encounter Details Date Type Department Care Team (Latest Contact Info) Description 12/04/2017 Anticoagulation Visit [facility] [address] [place] [address] Bindu Gaines MD [address] [facility] [address] [place] [address] H/O mechanical aortic valve replacement; detention current use of anticoagulant therapy Social History Tobacco Use Types Packs/Day Years Used Date Smoking Tobacco: Never Smokeless Tobacco: Never Alcohol Use Standard Drinks/Week Comments Yes 1 (1 standard drink = 0.6 oz pur e alcohol) Comments Unknown Sex and Gender Information Value Date Recorded Sex Assigned at Not on file Legal Sex Female 8:13 AM SOLDER MAKING LABORER Gender Identity Female 06/01/2020 9:42 PM SOLDER MAKING LABORER Sexual Orientation Straight 06/01/2020 9: 42 PM SOLDER MAKING LABORER documented as of this encounter Plan of Treatment Not on file documented as of this encounter Procedures Procedure Name Priority Date/Time Associated Diagnosis Comments PROTIME-INR Routine 12/03/2017 documented in this encounter Results * (ABNORMAL) Protime-INR (12/03/2017) INR 2.00(A) 0.9 - 1.1 [facility] Blood specimen (specimen) us Historical Provider LAB BLOOD ORDERABLES Antonina hernandez Result [facility] documented in this encounter Visit Diagnoses Diagnosis H/O mechanical aortic valve replacement terminal 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
--- OUTSIDE RECORDS SUMMARY | 2024-04-01 07:53 | XMS_ITS | Encounter Summary ---
Author Organization [facility] Care Team Providers Care Medical Cost Consultant Name Role Phone Helena Yu Primary Care Provider [phone] Gabi Fagan MD Primary Care Pro vider Nathalie Jain MD Primary Care Provider [phone]- [phone] Jose Lorenzo DO Primary Care Provider [phone] Sanket Waldron DO Primary Care Provide r Adrien Camejo MD Unavailable [phone] Encounter Details Date Type Department Care Team (Latest Contact Info) Description 11/20/2017 Orders Only [facility]IN[facility] ProviderReynaldo MD [address] [place] [address] Social History Tobacco Use Types Packs/Day Years Used Date Smoking Tobacco: Never Smokeless Tobacco: Never Alcohol Use Standard Drinks/Week Comments Yes 1 (1 standard drink = 0.6 oz pur e alcohol) Comments Unknown Sex and Gender Information Value Date Recorded Sex Assigned at Not on file Legal Sex Female 8:13 AM HAND IRONER Gender Identity Female 06/01/2020 9:42 PM HAND IRONER Sexual Orientation Straight 06/01/2020 9: 42 PM HAND IRONER documented as of this encounter Plan of Treatment Not on file documented as of this encounter Procedures Procedure Name Priority Date/Time Associated Diagnosis Comments CARDIOLOGY REPORT 11/23/2017 12: 00 AM CDT documented in this encounter Results * CARDIOLOGY REPORT (11/23/2017 12:00 AM CDT) Anatomical Region Laterality Modality Other Narrative 11/23/2017 12:00 AM CDT Ordered by an unspecified provider. us Historical Provider [facility] Final Result documented in this encounter Visit Diagnoses Not on filedocumented in this encounter Care Teams Medical Cost Consultant Relationship Specialty Start Date End Date Helena Yu PA [address] [place] [address] PCP - General Internal Medicine 09/23/18 07/29/20 Gabi Fagan MD [address] [place] [address] PCP - General Family Medicine 07/30/20 01/09/21 Nathalie Jain MD [address] [place] [address] PCP - General Internal Medicine 01/10/21 09/22/22 Jose Lorenzo DO [address] [place] [address] PCP - General Family Medicine 09/23/22 05/25/23 Sanket Waldron DO [address] [place] [address] PCP - General 05/26/23 Adrien Camejo MD [address] [place] [address] Consulting Physician Orthopedic Surgery 08/25/23 documented as of this encounter
--- OUTSIDE RECORDS SUMMARY | 2024-04-01 07:53 | XMS_ITS | Encounter Summary ---
Author Organization [facility] Address [address] [facility] [address] [place] [address] Care Team Providers Care Oceanographer Physical Name Role Phone Unavailable Primary Care Provider Unavailabl e Encounter Details Date Type Department Care Team (Latest Contact Info) Description 05/19/2018 Anticoagulation Visit [facility] [address] [facility] [address], [place] [address] Bindu Gaines MD [address] [address] H/O mechanical aortic valve replacement; nursing home current use of anticoagulant therapy Social History Tobacco Use Types Packs/Day Years Used Date Smoking Tobacco: Never Smokeless Tobacco: Never Alcohol Use Standard Drinks/Week Comments Yes 1 (1 standard drink = 0.6 oz pur e alcohol) Comments Unknown Sex and Gender Information Value Date Recorded Sex Assigned at Not on file Legal Sex Female 8:13 AM REDEVELOPMENT MANAGER Gender Identity Female 06/01/2020 9:42 PM REDEVELOPMENT MANAGER Sexual Orientation Straight 06/01/2020 9: 42 PM REDEVELOPMENT MANAGER documented as of this encounter Plan of Treatment Not on file documented as of this encounter Visit Diagnoses Diagnosis H/O mechanical aortic valve replacement nursing home current 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
--- OUTSIDE RECORDS SUMMARY | 2024-04-01 07:53 | XMS_ITS | Encounter Summary ---
Author Organization [facility] Address [address] [place] [address] Care Team Providers Care Prorate Clerk Name Role Phone Unavailable Primary Care Provider Unavailabl e Reason for Visit * Diagnostic Imaging (Routine) - Closed Specialty Diagnoses / Procedures Referred By Contac t Referred To Contact Cardiology Imaging Diagnoses Bicuspid aortic valve H/O mechanical aortic valve replacement Procedures Transthoracic Echo Complete W Doppler/CF Su Mott NP Phone: tel: fax: [facility] Medical [facility] Cardiology [address] [place] [address] Phone: tel: fax: Referral ID Status Reason Start Date Expiration Date Visits Re quested Visits Authorized [id number] Closed 11/10/2017 05/22/2019 1 1 Encounter Details Date Type Department Care Team (Latest Contact Info) Description 11/20/2017 3:00 PM CDT Ancillary Procedure [facility] Cardiology [address] [place] [phone] Bicuspid aortic valve; H/O mechanical aortic valve replacement Social History Tobacco Use Types Packs/Day Years Used Date Smoking Tobacco: Never Smokeless Tobacco: Never Alcohol Use Standard Drinks/Week Comments Yes 1 (1 standard drink = 0.6 oz pur e alcohol) Comments Unknown Sex and Gender Information Value Date Recorded Sex Assigned at Not on file Legal Sex Female 8:[address] AW[address] DRIVER Gender Identity Female 06/01/2020 9:[address] AWAY DRIVER Sexual Orientation Straight 06/01/2020 9: [address] DRIVER documented as of this encounter Last Filed Vital Signs Vital Sign Reading Time Taken Comments Blood Pressure - - Pulse - - Temperature - - Respiratory Rate - - Oxygen Saturation - - Inhaled Oxygen Concentration - - Weight 59.9 kg (132 lb) 11/20/2017 2:50 PM CDT Height 160 cm (5' 3 ) 11/20/2017 2:50 PM CDT Body Mass Index 23.38 11/20/2017 2:50 PM CDT documented in this encounter Plan of Treatment Not on file documented as of this encounter Procedures Procedure Name Priority Date/Time Associated Diagnosis Comments TRANSTHORACIC ECHO (TTE) COMPLETE W DOPPLER/CF WO CONTRAST Routine 11/20/2017 3:39 PM CDT Bicuspid aortic valve H/O mechanical aortic valve replacement documented in this encounter Results * TRANSTHORACIC ECHO (TTE) COMPLETE W DOPPLER/CF WO CONTRAST (11/20/2017 3:39 PM CDT) Anatomical Region Laterality Modality Ultrasound 11/20/2017 12:2 8 PM CDT Narrative 11/20/2017 4:26 PM CDT [facility] [address] [facility] [address] [place] [id number] [address], [place] [address] P:[phone] P:[phone] Echocardiographic Report Patient Name: YESSY NIXON : 1955 Study Date: 11/20/2017 12:28:34 PM Gender: F Tech: Location: [place] Ref.Physician: LOGAN Height(Cm): 160 BSA: 1.62 Weight(Kg): 59.88 Heart Rate: 82 BP: 100/55 Quality: Good Order Physician: SU MOTT Procedures: Echocardiographic Report: Transthoracic echocardiogram with complete 2D, M-Mode, and color Doppler examination. Indications: Aortic Valve Replacement 19. Measurements: 2D/M Mode ?Doppler ? Measurement ?Value ?Normal Range ? Measurement ?Value ?Normal Range ? EF Mod ? 60 ?LYNSEY ?1.49 ? [ 2.00 - 4.00 ] cm2 ? EF MM ?80 ? [ 55 - 70 ] % ?AV Mean PG ? 7 ?mmHg ? LVIDd 2D ? 2.49 ? [ 3.90 - 5.30 ] cm ? AV Peak Alvaro ?2.05 ? m/s ? LVIDd MM ? 4.38 ? [ 3.90 - 5.30 ] cm ? AV Peak PG ? 17 ? mmHg ? LVIDs 2D ? 1.64 ? [ 2.30 - 3.90 ] cm ? AV VTI ? 0.35 ? cm ? LVIDs MM ? 2.28 ? [ 2.30 - 3.90 ] cm ? LVOT Diam ?2.09 ? [ 1.70 - 2.10 ] cm ? LVPWd 2D ? 0.89 ? [ 0.60 - 1.00 ] cm ? LVOT Peak Alvaro ?0.89 ? [ 0.70 - 1.10 ] m/s ? LVPWd MM ? 0.93 ? [ 0.60 - 1.00 ] cm ? LVOT VTI ? 0.19 ? cm ? IVSd 2D ?1.06 ? [ 0.60 - 0.90 ] cm ? MV E Peak Alvaro ?0.59 ? [ 0.60 - 1.30 ] m/s ? IVSd MM ?0.88 ? [ 0.60 - 0.90 ] cm ? MV A Peak Alvaro ?0.84 ? [ 0.40 - 0.80 ] m/s ? LA Dimension MM ?3.15 ? [ 2.70 - 3.80 ] cm ? MV Decel Time ?350 ?[ 150 - 200 ] msec ? AoR Diam MM ?2.97 ? [ 2.60 - 3.70 ] cm ? PV Peak Alvaro ?0.95 ? [ 0.40 - 0.80 ] m/s ? LA Volume Index ?18.00 ?[ 16.00 - 28.00 ] cc/m2 ?TR Peak Alvaro ?2.57 ? [ 0.40 - 0.80 ] m/s ? ACS MM ? 1.34 ? cm ? TR Peak PG ? 26 ? mmHg ? RVSP ? 34.00 ?mmHg ? E' ? 0.09 ? E/E' ? 6 ? Findings: Interpretation Site: Exam was interpreted at [facility]. Left Ventricle: Normal left ventricular systolic function. No focal wall motion abnormalities. Normal left ventricular size. Normal left ventricular wall thickness. Impaired diastolic relaxation Grade I. Ejection fraction is measured at 60 %. Right Ventricle: Normal right ventricular size. Normal right ventricular systolic function. Left Atrium: The left atrium is normal in size. Right Atrium: The right atrium is normal in size. Atrial Septum: Normal atrial septum. Mitral Valve: Normal appearance of the mitral valve. Mild mitral annular calcification. Mild mitral valve regurgitation. Aortic Valve: Peak gradient of 17.0 mmHg. Mean gradient of 7.0 mmHg. Valve area of 1.49 cm2. Trace aortic valve regurgitation. Normal appearing mechanical aortic valve prosthesis, although leaflets not well visualized. Gradients normal for valve type and size. Tricuspid Valve: Normal appearance of the tricuspid valve. Normal right ventricular systolic pressure. Estimated peak RVSP is 34 mmHg. Mild tricuspid regurgitation. Pulmonic Valve: Pulmonic valve not well visualized. Pericardium: Normal pericardium with no significant pericardial effusion. Aorta: Normal aortic root. No aortic root dilation. IVC: Normal size and normal respiratory collapse consistent with normal right atrial pressure (<5 mmHg). Conclusions: Normal left ventricular systolic function. No focal wall motion abnormalities. Normal left ventricular size. Normal left ventricular wall thickness. Impaired diastolic relaxation Grade I. Ejection fraction is measured at 60 %. Peak gradient of 17.0 mmHg. Mean gradient of 7.0 mmHg. Valve area of 1.49 cm2. Trace aortic valve regurgitation. Normal appearing mechanical aortic valve prosthesis, although leaflets not well visualized. Gradients normal for valve type and size. Normal appearance of the mitral valve. Mild mitral annular calcification. Mild mitral valve regurgitation. Normal appearance of the tricuspid valve. Normal right ventricular systolic pressure. Estimated peak RVSP is 34 mmHg. Mild tricuspid regurgitation. Normal sinus rhythm. Electronically Signed By: Alysha Solano MD 2017-11-20 16:26:30 CDT CC: CC: Procedure Note Cj Solano MD - 11/20/2017 [facility] [facility] [address] [address] [address], [place] [address] P:[phone] P:[phone] Echocardiographic Report Patient Name: YESSY NIXONPatient ID: [id number] : [id number] Date: 11/20/2017 12:28:34 PM Gender: FAccession #: [id number] Tech: Location: [place] Ref.Physician: Carrilloight(Cm): 160 BSA: 1.62Weight(Kg): 59.88 Heart Rate: 82BP: 100/55 Quality: GoodOrder Physician: SU MOTT Procedures: Echocardiographic Report: Transthoracic echocardiogram with complete 2D, M-Mode, and color Dopplerexamination. Indications: Aortic Valve Replacement 19. Measurements: 2D/M Mode Doppler Measurement Value Normal Range MeasurementValue Normal Range EF Mod 60 AVA1.49 [ 2.00 - 4.00 ] cm2 EF MM 80 [ 55 - 70 ] % AV Mean PG 7mmHg LVIDd 2D 2.49 [ 3.90 - 5.30 ] cm AV Peak Vel2.05 m/s LVIDd MM 4.38 [ 3.90 - 5.30 ] cm AV Peak PG 17mmHg LVIDs 2D 1.64 [ 2.30 - 3.90 ] cm AV VTI0.35 cm LVIDs MM 2.28 [ 2.30 - 3.90 ] cm LVOT Diam2.09 [ 1.70 - 2.10 ] cm LVPWd 2D 0.89 [ 0.60 - 1.00 ] cm LVOT Peak Vel0.89 [ 0.70 - 1.10 ] m/s LVPWd MM 0.93 [ 0.60 - 1.00 ] cm LVOT VTI0.19 cm IVSd 2D 1.06 [ 0.60 - 0.90 ] cm MV E Peak Vel0.59 [ 0.60 - 1.30 ] m/s IVSd MM 0.88 [ 0.60 - 0.90 ] cm MV A Peak Vel0.84 [ 0.40 - 0.80 ] m/s LA Dimension MM 3.15 [ 2.70 - 3.80 ] cm MV Decel Qosg411 [ 150 - 200 ] msec AoR Diam MM 2.97 [ 2.60 - 3.70 ] cm PV Peak Vel0.95 [ 0.40 - 0.80 ] m/s LA Volume Index 18.00 [ 16.00 - 28.00 ] cc/m2 TR Peak Vel2.57 [ 0.40 - 0.80 ] m/s ACS MM 1.34 cm TR Peak PG 26mmHg RVSP34.00 mmHg E'0.09 E/E' 6 Findings: Interpretation Site: Exam was interpreted at [facility]. Left Ventricle: Normal left ventricular systolic function. No focal wall motionabnormalities. Normal left ventricular size. Normal left ventricular wall thickness. Impaireddiastolic relaxation Grade I. Ejection fraction is measured at 60 %. Right Ventricle: Normal right ventricular size. Normal right ventricular systolicfunction. Left Atrium: The left atrium is normal in size. Right Atrium: The right atrium is normal in size. Atrial Septum: Normal atrial septum. Mitral Valve: Normal appearance of the mitral valve. Mild mitral annular calcification.Mild mitral valve regurgitation. Aortic Valve: Peak gradient of 17.0 mmHg. Mean gradient of 7.0 mmHg. Valve area of 1.49cm2. Trace aortic valve regurgitation. Normal appearing mechanical aortic valveprosthesis, although leaflets not well visualized. Gradients normal for valve type and size. Tricuspid Valve: Normal appearance of the tricuspid valve. Normal right ventricularsystolic pressure. Estimated peak RVSP is 34 mmHg. Mild tricuspid regurgitation. Pulmonic Valve: Pulmonic valve not well visualized. Pericardium: Normal pericardium with no significant pericardial effusion. Aorta: Normal aortic root. No aortic root dilation. IVC: Normal size and normal respiratory collapse consistent with normal rightatrial pressure (<5 mmHg). Conclusions: Normal left ventricular systolic function. No focal wall motionabnormalities. Normal left ventricular size. Normal left ventricular wall thickness. Impaireddiastolic relaxation Grade I. Ejection fraction is measured at 60 %. Peak gradient of 17.0 mmHg. Mean gradient of 7.0 mmHg. Valve area of 1.49cm2. Trace aortic valve regurgitation. Normal appearing mechanical aortic valveprosthesis, although leaflets not well visualized. Gradients normal for valve type and size. Normal appearance of the mitral valve. Mild mitral annular calcification.Mild mitral valve regurgitation. Normal appearance of the tricuspid valve. Normal right ventricularsystolic pressure. Estimated peak RVSP is 34 mmHg. Mild tricuspid regurgitation. Normal sinus rhythm. Electronically Signed By: Alysha Solano MD 2017-11-20 16:26:30 CDT CC: CC: Su Mott NP CV ECHO PROCEDURES Final Result documented in this encounter Visit Diagnoses Diagnosis Bicuspid aortic valve Congenital insufficiency of aortic valve H/O mechanical aortic valve replacement documented in this encounter
--- OUTSIDE RECORDS SUMMARY | 2024-04-01 07:53 | XMS_ITS | Encounter Summary ---
Author Organization [facility] Address [address] [place] [address] Care Team Providers Care Vegetable Loader Name Role Phone Unavailable Primary Care Provider Unavailabl e Encounter Details Date Type Department Care Team (Latest Contact Info) Description 02/25/2018 Anticoagulation Visit [facility] [address] [facility] [address] [place] [address] Juany Mccabe RN H/O mechanical aortic valve replacement; intermediate current use of anticoagulant therapy Social History Tobacco Use Types Packs/Day Years Used Date Smoking Tobacco: Never Smokeless Tobacco: Never Alcohol Use Standard Drinks/Week Comments Yes 1 (1 standard drink = 0.6 oz pur e alcohol) Comments Unknown Sex and Gender Information Value Date Recorded Sex Assigned at Not on file Legal Sex Female 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
--- OUTSIDE RECORDS SUMMARY | 2024-04-01 07:53 | XMS_ITS | Encounter Summary ---
Author Organization [facility] Address [address] [place] [address] Care Team Providers Care District Court Reporter Name Role Phone Unavailable Primary Care Provider Unavailabl e Encounter Details Date Type Department Care Team (Late st Contact Info) Description 12/21/2017 Telephone [facility] [address] [place] [address] Bindu Gaines MD [address] [facility] [address] [place], [place] [id number] Social History Tobacco Use Types Packs/Day Years Used Date Smoking Tobacco: Never Smokeless Tobacco: Never Alcohol Use Standard Drinks/Week Comments Yes 1 (1 standard drink = 0.6 oz pur e alcohol) Comments Unknown Sex and Gender Information Value Date Recorded Sex Assigned at Not on file Legal Sex Female 8:13 AM EVENT PLANNER Gender Identity Female 06/01/2020 9:42 PM EVENT PLANNER Sexual Orientation Straight 06/01/2020 9: 42 PM EVENT PLANNER documented as of this encounter Miscellaneous Notes * Telephone Encounter - Juany Mccabe RN - 12/21/2017 12:08 PM CDT Spoke with patient. States that she was started on Clindamyacin on Thursday. Instructed patient to have an INR checked 5 days after starting the antibiotic. She will have this completed on as she has some other blood work being completed that day. * Telephone Encounter - Connie Chambers - 12/21/2017 11:22 AM CDT Pt was put on antibiotics for cellulitis this weekend and missed a dose of Warfarin this past . cb [phone] documented in this encounter Plan of Treatment Not on file documented as of this encounter Visit Diagnoses Not on filedocumented in this encounter
--- OUTSIDE RECORDS SUMMARY | 2024-04-01 07:53 | XMS_ITS | Encounter Summary ---
Author Organization [facility] Address [address] [place] [address] Care Team Providers Care Investment Sales Assistant Name Role Phone Unavailable Primary Care Provider Unavailabl e Encounter Details Date Type Department Care Team (Latest Contact Info) Description 02/11/2018 Anticoagulation Visit [facility] [address] [place] [address] Bindu Gaines MD [address] [facility] [address] [place] [address] H/O mechanical aortic valve replacement; [facility] current use of anticoagulant therapy Social History Tobacco Use Types Packs/Day Years Used Date Smoking Tobacco: Never Smokeless Tobacco: Never Alcohol Use Standard Drinks/Week Comments Yes 1 (1 standard drink = 0.6 oz pur e alcohol) Comments Unknown Sex and Gender Information Value Date Recorded Sex Assigned at Not on file Legal Sex Female 8:13 AM FINANCIAL INSTITUTION BRANCH MANAGER Gender Identity Female 06/01/2020 9:42 PM FINANCIAL INSTITUTION BRANCH MANAGER Sexual Orientation Straight 06/01/2020 9: 42 PM FINANCIAL INSTITUTION BRANCH MANAGER documented as of this encounter Plan of Treatment Not on file documented as of this encounter Procedures Procedure Name Priority Date/Time Associated Diagnosis Comments PROTIME-INR Routine 02/10/2018 documented in this encounter Results * (ABNORMAL) Protime-INR (02/10/2018) INR 3.90(A) 0.9 - 1.1 [facility] Blood specimen (specimen) us Historical Provider LAB BLOOD ORDERABLES Antonina hernandez Result [facility] documented in this encounter Visit Diagnoses Diagnosis H/O 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
--- OUTSIDE RECORDS SUMMARY | 2024-04-01 07:53 | XMS_ITS | Encounter Summary ---
Author Organization [facility] Address [address] [place] [address] Care Team Providers Care Corrugator Helper Name Role Phone Unavailable Primary Care Provider Unavailabl e Encounter Details Date Type Department Care Team (Late st Contact Info) Description 11/23/2017 Telephone [facility] [address] [facility] [address] [place] [address] Bidnu Gaines MD [address] [address] Social History Tobacco Use Types Packs/Day Years Used Date Smoking Tobacco: Never Smokeless Tobacco: Never Alcohol Use Standard Drinks/Week Comments Yes 1 (1 standard drink = 0.6 oz pur e alcohol) Comments Unknown Sex and Gender Information Value Date Recorded Sex Assigned at Not on file Legal Sex Female 8:13 AM TRANSMISSION AND COORDINATION ENGINEER Gender Identity Female 06/01/2020 9:42 PM TRANSMISSION AND COORDINATION ENGINEER Sexual Orientation Straight 06/01/2020 9: 42 PM TRANSMISSION AND COORDINATION ENGINEER documented as of this encounter Miscellaneous Notes * Telephone Encounter - Edelmira Ware RN - 11/23/2017 10:18 AM CDT ----- Message from Bindu Gaines MD sent at 11/22/2017 3:03 PM CDT ----- Pt w/ prosthetic AV; please Tell her Echo looks good, valve is good. I called the patient and left a voicemail message requesting a return call. I spoke to the patient. I reviewed Dr. Gaines's message with her. She verbalizes understanding. She has a spot on her leg that she nicked when shaving and it keeps oozing intermittently. Advised patient to get an INR checked today. She agrees. documented in this encounter Plan of Treatment Not on file documented as of this encounter Visit Diagnoses Not on filedocumented in this encounter
--- OUTSIDE RECORDS SUMMARY | 2024-04-01 07:53 | XMS_ITS | Encounter Summary ---
Author Organization [facility] Address [address] [place] [address] Care Team Providers Care Signs And Displays Sales Representative Name Role Phone Unavailable Primary Care Provider Unavailabl e Encounter Details Date Type Department Care Team (Latest Contact Info) Description 03/03/2018 Anticoagulation Visit [facility] [address] [facility] [address] [place] [address] Juany Mccabe RN H/O mechanical aortic valve replacement; jail current use of anticoagulant therapy Social History Tobacco Use Types Packs/Day Years Used Date Smoking Tobacco: Never Smokeless Tobacco: Never Alcohol Use Standard Drinks/Week Comments Yes 1 (1 standard drink = 0.6 oz pur e alcohol) Comments Unknown Sex and Gender Information Value Date Recorded Sex Assigned at Not on file Legal Sex Female 8:13 AM 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
--- OUTSIDE RECORDS SUMMARY | 2024-04-01 07:53 | XMS_ITS | Encounter Summary ---
Author Organization [facility] Address [address] [facility] [address] [address] [place] [address] Care Team Providers Care Whey Department Operator Name Role Phone Unavailable Primary Care Provider Unavailabl e Encounter Details Date Type Department Care Team (Latest Contact Info) Description 03/24/2018 Anticoagulation Visit [facility] [address] 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
--- OUTSIDE RECORDS SUMMARY | 2024-04-01 07:53 | XMS_ITS | Encounter Summary ---
Author Organization [facility] Address [address] [place] [address] Care Team Providers Care Blankbook Forwarder Name Role Phone Unavailable Primary Care Provider Unavailabl e Encounter Details Date Type Department Care Team (Latest Contact Info) Description 06/16/2018 Anticoagulation Visit [facility] [address] [facility] [address], [place] [address] Bindu Gaines MD [address] [address] H/O mechanical aortic valve replacement; jail current use of anticoagulant therapy Social History Tobacco Use Types Packs/Day Years Used Date Smoking Tobacco: Never Smokeless Tobacco: Never Alcohol Use Standard Drinks/Week Comments Yes 1 (1 standard drink = 0.6 oz pur e alcohol) Comments Unknown Sex and Gender Information Value Date Recorded Sex Assigned at Not on file Legal Sex Female 8:13 AM SUGAR REFINER Gender Identity Female 06/01/2020 9:42 PM SUGAR REFINER Sexual Orientation Straight 06/01/2020 9: 42 PM SUGAR REFINER documented as of this encounter Plan of Treatment Not on file documented as of this encounter Visit Diagnoses Diagnosis H/O mechanical aortic valve replacement jail current 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
--- OUTSIDE RECORDS SUMMARY | 2024-04-01 07:53 | XMS_ITS | Encounter Summary ---
Author Organization [facility] Address [address] [facility] [address] [place] [address] Care Team Providers Care Oracle Erp Architect Name Role Phone Unavailable Primary Care Provider Unavailabl e Encounter Details Date Type Department Care Team (Latest Contact Info) Description 07/27/2018 Anticoagulation Visit [facility] [address] [facility] [address] [place] [address] Juany Mccabe RN H/O mechanical [...] on file Legal Sex Female 8:13 AM LINER REROLL TENDER Gender Identity Female 06/01/2020 9:42 PM LINER REROLL TENDER Sexual Orientation Straight 06/01/2020 9: 42 PM LINER REROLL TENDER documented as of this encounter Plan of Treatment Not on file documented as of this encounter Visit Diagnoses Diagnosis H/O mechanical aortic valve replacement sn[facility] current 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
--- OUTSIDE RECORDS SUMMARY | 2024-04-01 07:53 | XMS_ITS | Encounter Summary ---
Author Organization [facility] Medical [facility] Address [address] [facility] [address] [place] [address] Care Team Providers Care Prototype Fabricator Name Role Phone Unavailable Primary Care Provider Unavailabl e Encounter Details Date Type Department Care Team (Late st Contact Info) Description 04/01/2018 Telephone [facility] [address] [facility] [address] [place] [phone] Bindu Gaines MD [address] [address] Social History Tobacco Use Types Packs/Day Years Used Date Smoking Tobacco: Never Smokeless Tobacco: Never Alcohol Use Standard Drinks/Week Comments Yes 1 (1 standard drink = 0.6 oz pur e alcohol) Comments Unknown Sex and Gender Information Value Date Recorded Sex Assigned at Not on file Legal Sex Female 8:13 AM UNDER SHERIFF Gender Identity Female 06/01/2020 9:42 PM UNDER SHERIFF Sexual Orientation Straight 06/01/2020 9: 42 PM UNDER SHERIFF documented as of this encounter Ordered Prescriptions Prescription Sig Dispense Quantity Refills Last Filled Start Date End Date warfarin (COUMADIN) 5 mg tablet Take 4mg TuThSaSu and take 5mg MWF orally once daily or as directed by Dr. Gaines 15 tablet 2 04/01/2018 9 warfarin (COUMADIN) 2 mg tablet Take 4mg TuThSaSu and take 5mg MWF orally once daily or as directed by Dr. Gaines 60 tablet 2 04/01/2018 9 documented in this encounter Miscellaneous Notes * Telephone Encounter - Edelmira Ware RN - 04/01/2018 8:48 AM UNDER SHERIFF I called the patient back. She needs a new script sent for her warfarin. Done. R SHERIFF * Telephone Encounter - Tabitha Craft - 04/01/2018 8:03 AM UNDER SHERIFF Pt called requesting updated directions on her Warfarin, pt cb [phone] R SHERIFF documented in this encounter Plan of Treatment Not on file documented as of this encounter Visit Diagnoses Not on filedocumented in this encounter Discontinued Medications Medication Sig Discontinue Reason Start Date End Da te warfarin (COUMADIN) 5 mg tablet TAKE 1 TABLET BY MOUTH EVERY DAY Reorder 02/02/2018 04/01/2018 documented as of this encounter
--- OUTSIDE RECORDS SUMMARY | 2024-04-01 07:53 | XMS_ITS | Encounter Summary ---
Author Organization [facility] Medical [facility] Address [address] [facility] [address] [place] [address] Care Team Providers Care Dust Collector Name Role Phone Unavailable Primary Care Provider Unavailabl e Encounter Details Date Type Department Care Team (Late st Contact Info) Description 07/01/2018 Telephone [facility] [address] [place] [phone] Bindu Gaines MD [address] [facility] 102 [place], [place] [id number] Social History Tobacco Use Types Packs/Day Years Used Date Smoking Tobacco: Never Smokeless Tobacco: Never Alcohol Use Standard Drinks/Week Comments Yes 1 (1 standard drink = 0.6 oz pur e alcohol) Comments Unknown Sex and Gender Information Value Date Recorded Sex Assigned at Not on file Legal Sex Female 8:13 AM NEON SIGN MAKER Gender Identity Female 06/01/2020 9:42 PM NEON SIGN MAKER Sexual Orientation Straight 06/01/2020 9: 42 PM NEON SIGN MAKER documented as of this encounter Miscellaneous Notes * Telephone Encounter - Marialuisa Fagan RN - 07/01/2018 8:52 AM CDT Pt returned call; States she missed a couple doses this week; Advised to get INR , but she does notwish to go earlier to get INR; Instructed to take 6mg as one time dose tonoc and to recheck INR as scheduled in 2 weeks. Instructed pt on the importance of taking warfarin every day as scheduled and her risk of blood clots, CVA, PA while sub-therapeutic; Pt voiced understanding. * Telephone Encounter - Connie Chambers - 07/01/2018 8:26 AM CDT Pt reports she has missed her warfarin dose twice this week. Missed on Thursday or Thursday night and did not take it last night. [phone] documented in this encounter Plan of Treatment Not on file documented as of this encounter Visit Diagnoses Not on filedocumented in this encounter
--- OUTSIDE RECORDS SUMMARY | 2024-04-01 07:53 | XMS_ITS | Encounter Summary ---
Author Organization [facility] Medical Group Address [address] [facility] [address] [place] [address] Care Team Providers Care Supervisor Chlorine Liquefaction Name Role Phone Unavailable Primary Care Provider Unavailabl e Encounter Details Date Type Department Care Team (Late st Contact Info) Description 01/25/2018 Telephone [facility] [address] [facility] [address] [place] [phone] Rachel Fan NP [address] [facility] [address] [place] [address] Social History Tobacco Use Types Packs/Day Years Used Date Smoking Tobacco: Never Smokeless Tobacco: Never Alcohol Use Standard Drinks/Week Comments Yes 1 (1 standard drink = 0.6 oz pur e alcohol) Comments Unknown Sex and Gender Information Value Date Recorded Sex Assigned at Not on file Legal Sex Female 8:13 AM SHIP'S ELECTRONIC WARFARE OFFICER Gender Identity Female 06/01/2020 9:42 PM SHIP'S ELECTRONIC WARFARE OFFICER Sexual Orientation Straight 06/01/2020 9: 42 PM SHIP'S ELECTRONIC WARFARE OFFICER documented as of this encounter Ordered Prescriptions Prescription Sig Dispense Quantity Refills Last Filled Start Date End Date atorvastatin (LIPITOR) 20 mg tablet Take 1 tablet (20 mg total) by mouth daily. 30 tablet 2 01/25/2018 03/15/2018 documented in this encounter Miscellaneous Notes * Telephone Encounter - Aria Harvey RN - 01/25/2018 12:30 PM CDT Spoke with patient; discussed message per CESLAFRAME FIXER voiced understanding. * Telephone Encounter - Aria Harvey RN - 01/25/2018 11:59 AM CDT ----- Message from Rachel Fan NP sent at 01/22/2018 5:09 PM CDT ----- Please call the patient regarding her abnormal result. Her lipids have not improved. I recommend starting atorvastatin 20mg once daily. Recheck FLP in 2-3 months. Caution potential side effect of myalgias. Thank you. documented in this encounter Plan of Treatment Scheduled Orders Name Type Priority Associated Diagnoses Orde r Schedule Lipid panel Lab Routine Hyperlipidemia, unspecified hyperlipidemia type Expected: 01/25/2018, Expires: 03/27/2018 documented as of this encounter Visit Diagnoses Diagnosis Hyperlipidemia, unspecified hyperlipidemia type- Primary documented in this encounter
--- OUTSIDE RECORDS SUMMARY | 2024-04-01 07:53 | XMS_ITS | Encounter Summary ---
Author Organization [facility] Medical [facility] Address [address] [facility] [address] [place] [address] Care Team Providers Care Nurse Receptionist Name Role Phone Unavailable Primary Care Provider Unavailabl e Encounter Details Date Type Department Care Team (Latest Contact Info) Description 11/24/2017 Anticoagulation Visit [facility] [address] [place] [address] Bindu Gaines MD [address] [facility] [address] [place] [address] H/O mechanical aortic valve replacement; [facility] current use of anticoagulant therapy Social History Tobacco Use Types Packs/Day Years Used Date Smoking Tobacco: Never Smokeless Tobacco: Never Alcohol Use Standard Drinks/Week Comments Yes 1 (1 standard drink = 0.6 oz pur e alcohol) Comments Unknown Sex and Gender Information Value Date Recorded Sex Assigned at Not on file Legal Sex Female 8:13 AM SEE SUPERVISOR Gender Identity Female 06/01/2020 9:42 PM SEE SUPERVISOR Sexual Orientation Straight 06/01/2020 9: 42 PM SEE SUPERVISOR documented as of this encounter Plan of Treatment Not on file documented as of this encounter Procedures Procedure Name Priority Date/Time Associated Diagnosis Comments PROTIME-INR Routine 11/23/2017 documented in this encounter Results * (ABNORMAL) Protime-INR (11/23/2017) INR 3.90(A) 0.9 - 1.1 [facility] Blood specimen (specimen) us Historical Provider LAB BLOOD ORDERABLES Antonina hernandez Result [facility] documented in this encounter Visit Diagnoses Diagnosis H/O mechanical aortic valve replacement ocean transportation intermediary current 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
--- OUTSIDE RECORDS SUMMARY | 2024-04-01 07:54 | XMS_ITS | Encounter Summary ---
Author Organization [facility] Address [address] [facility] [address] [place] [address] Care Team Providers Care Hand Glass Cutter Name Role Phone Unavailable Primary Care Provider Unavailabl e Encounter Details Date Type Department Care Team (Latest Contact Info) Description 08/12/2017 Anticoagulation Visit [facility] [address] [place] [address] Bindu Gaines MD [address] [facility] [address] [place] [address] H/O mechanical aortic valve replacement; alf current use of anticoagulant therapy Social History Tobacco Use Types Packs/Day Years Used Date Smoking Tobacco: Never Smokeless Tobacco: Never Alcohol Use Standard Drinks/Week Comments Yes 1 (1 standard drink = 0.6 oz pur e alcohol) Comments Unknown Sex and Gender Information Value Date Recorded Sex Assigned at Not on file Legal Sex Female 8:13 AM GAS INSPECTOR Gender Identity Female 06/01/2020 9:42 PM GAS INSPECTOR Sexual Orientation Straight 06/01/2020 9: 42 PM GAS INSPECTOR documented as of this encounter Plan of Treatment Not on file documented as of this encounter Procedures Procedure Name Priority Date/Time Associated Diagnosis Comments PROTIME-INR Routine 08/11/2017 documented in this encounter Results * (ABNORMAL) Protime-INR (08/11/2017) INR 4.10(A) 0.9 - 1.1 [facility] Blood specimen (specimen) us Historical Provider LAB BLOOD ORDERABLES Antonina hernandez Result [facility] documented in this encounter Visit Diagnoses Diagnosis H/O mechanical aortic valve replacement medical sonographer current 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
--- OUTSIDE RECORDS SUMMARY | 2024-04-01 07:54 | XMS_ITS | Encounter Summary ---
Author Organization [facility] Medical [facility] Address [address] [facility] [address] [place] [address] Care Team Providers Care Community Nurse Name Role Phone Unavailable Primary Care Provider Unavailabl e Encounter Details Date Type Department Care Team (Latest Contact Info) Description 08/26/2017 Anticoagulation Visit [facility] [address] [place] [address] Bindu Gaines MD [address] [facility] [address] [place] [address] H/O mechanical aortic valve replacement; [facility] current use of anticoagulant therapy Social History Tobacco Use Types Packs/Day Years Used Date Smoking Tobacco: Never Smokeless Tobacco: Never Alcohol Use Standard Drinks/Week Comments Yes 1 (1 standard drink = 0.6 oz pur e alcohol) Comments Unknown Sex and Gender Information Value Date Recorded Sex Assigned at Not on file Legal Sex Female 8:13 AM PELTS SKINNER Gender Identity Female 06/01/2020 9:42 PM PELTS SKINNER Sexual Orientation Straight 06/01/2020 9: 42 PM PELTS SKINNER documented as of this encounter Plan of Treatment Not on file documented as of this encounter Procedures Procedure Name Priority Date/Time Associated Diagnosis Comments PROTIME-INR Routine 08/25/2017 documented in this encounter Results * (ABNORMAL) Protime-INR (08/25/2017) INR 2.50(A) 0.9 - 1.1 [facility] Blood specimen (specimen) us Historical Provider LAB BLOOD ORDERABLES Antonina hernandez Result [facility] documented in this encounter Visit Diagnoses Diagnosis H/O mechanical aortic valve replacement 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
--- OUTSIDE RECORDS SUMMARY | 2024-04-01 07:54 | XMS_ITS | Encounter Summary ---
Author Organization [facility] Medical [facility] Address [address] [facility] [address] [place] [address] Care Team Providers Care As400 Consultant Name Role Phone Unavailable Primary Care Provider Unavailabl e Encounter Details Date Type Department Care Team (Latest Contact Info) Description 04/24/2017 Anticoagulation Visit [facility] [address] [place] [address] Bindu Gaines MD [address] [place] [address] H/O mechanical aortic valve replacement; residential current use of anticoagulant therapy Social History Tobacco Use Types Packs/Day Years Used Date Smoking Tobacco: Never Smokeless Tobacco: Never Alcohol Use Standard Drinks/Week Comments Yes 1 (1 standard drink = 0.6 oz pur e alcohol) Comments Unknown Sex and Gender Information Value Date Recorded Sex Assigned at Not on file Legal Sex Female 8:13 AM PRECISION LENS TECHNICIAN Gender Identity Female 06/01/2020 9:42 PM PRECISION LENS TECHNICIAN Sexual Orientation Straight 06/01/2020 9: 42 PM PRECISION LENS TECHNICIAN documented as of this encounter Plan of Treatment Not on file documented as of this encounter Procedures Procedure Name Priority Date/Time Associated Diagnosis Comments PROTIME-INR Routine 04/23/2017 documented in this encounter Results * (ABNORMAL) Protime-INR (04/23/2017) INR 3.00(A) 0.9 - 1.1 [facility] Blood specimen (specimen) us Historical Provider LAB BLOOD ORDERABLES Antonina hernandez Result [facility] documented in this encounter Visit Diagnoses Diagnosis H/O mechanical aortic valve replacement terminal makeup 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
--- OUTSIDE RECORDS SUMMARY | 2024-04-01 07:54 | XMS_ITS | Encounter Summary ---
Author Organization [facility] Medical Group Address [address] [facility] [address] [place] [address] Care Team Providers Care Shrub Grower Name Role Phone Unavailable Primary Care Provider Unavailabl e Encounter Details Date Type Department Care Team (Latest Contact Info) Description 07/23/2017 Anticoagulation Visit [facility] [address] [place] [address] Bindu Gaines MD [address] [facility] [address] [place] [address] H/O mechanical aortic valve replacement; senior living current use of anticoagulant therapy Social History Tobacco Use Types Packs/Day Years Used Date Smoking Tobacco: Never Smokeless Tobacco: Never Alcohol Use Standard Drinks/Week Comments Yes 1 (1 standard drink = 0.6 oz pur e alcohol) Comments Unknown Sex and Gender Information Value Date Recorded Sex Assigned at Not on file Legal Sex Female 8:13 AM FINISHER MAP AND CHART Gender Identity Female 06/01/2020 9:42 PM FINISHER MAP AND CHART Sexual Orientation Straight 06/01/2020 9: 42 PM FINISHER MAP AND CHART documented as of this encounter Plan of Treatment Not on file documented as of this encounter Procedures Procedure Name Priority Date/Time Associated Diagnosis Comments PROTIME-INR Routine 07/22/2017 documented in this encounter Results * (ABNORMAL) Protime-INR (07/22/2017) INR 3.60(A) 0.9 - 1.1 [facility] Blood specimen (specimen) us Historical Provider LAB BLOOD ORDERABLES Antonina hernandez Result [facility] documented in this encounter Visit Diagnoses Diagnosis H/O mechanical aortic valve replacement terminal operations manager current 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
--- OUTSIDE RECORDS SUMMARY | 2024-04-01 07:54 | XMS_ITS | Encounter Summary ---
Author Organization [facility] Medical [facility] Address [address] [facility] [address] [place] [address] Care Team Providers Care Screw Machine Operator Swiss Type Name Role Phone Unavailable Primary Care Provider Unavailabl e Encounter Details Date Type Department Care Team (Latest Contact Info) Description 04/08/2017 Anticoagulation Visit [facility] [address] [place] [address] Bindu Ganies MD [address] [facility] [address] [place] [address] H/O mechanical aortic valve replacement; [facility] current use of anticoagulant therapy Social History Tobacco Use Types Packs/Day Years Used Date Smoking Tobacco: Never Smokeless Tobacco: Never Alcohol Use Standard Drinks/Week Comments Yes 1 (1 standard drink = 0.6 oz pur e alcohol) Comments Unknown Sex and Gender Information Value Date Recorded Sex Assigned at Not on file Legal Sex Female 8:13 AM TRANSPORTATION MAINTENANCE SPECIALIST Gender Identity Female 06/01/2020 9:42 PM TRANSPORTATION MAINTENANCE SPECIALIST Sexual Orientation Straight 06/01/2020 9: 42 PM TRANSPORTATION MAINTENANCE SPECIALIST documented as of this encounter Plan of Treatment Not on file documented as of this encounter Procedures Procedure Name Priority Date/Time Associated Diagnosis Comments PROTIME-INR Routine 04/07/2017 documented in this encounter Results * (ABNORMAL) Protime-INR (04/07/2017) INR 4.70(A) 0.9 - 1.1 [facility] Blood specimen (specimen) us Historical Provider LAB BLOOD ORDERABLES Antonina hernandez Result [facility] documented in this encounter Visit Diagnoses Diagnosis H/O mechanical aortic valve replacement 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
--- OUTSIDE RECORDS SUMMARY | 2024-04-01 07:54 | XMS_ITS | Encounter Summary ---
Author Organization [facility] Medical [facility] Address [address] [facility] [address] [place] [address] Care Team Providers Care Operating Room Assistant Name Role Phone Unavailable Primary Care Provider Unavailabl e Encounter Details Date Type Department Care Team (Latest Contact Info) Description 04/17/2017 Anticoagulation Visit [facility] [address] [facility] [address] [address] Bindu Gaines MD [address] [facility] 102 [place] [address] H/O mechanical aortic valve replacement; [facility] current use of anticoagulant therapy Social History Tobacco Use Types Packs/Day Years Used Date Smoking Tobacco: Never Smokeless Tobacco: Never Alcohol Use Standard Drinks/Week Comments Yes 1 (1 standard drink = 0.6 oz pur e alcohol) Comments Unknown Sex and Gender Information Value Date Recorded Sex Assigned at Not on file Legal Sex Female 8:13 AM SUPERVISOR TRAIN OPERATIONS Gender Identity Female 06/01/2020 9:42 PM SUPERVISOR TRAIN OPERATIONS Sexual Orientation Straight 06/01/2020 9: 42 PM SUPERVISOR TRAIN OPERATIONS documented as of this encounter Plan of Treatment Not on file documented as of this encounter Procedures Procedure Name Priority Date/Time Associated Diagnosis Comments PROTIME-INR Routine 04/16/2017 documented in this encounter Results * (ABNORMAL) Protime-INR (04/16/2017) INR 2.30(A) 0.9 - 1.1 [facility] Blood specimen (specimen) us Historical Provider LAB BLOOD ORDERABLES Antonina hernandez Result [facility] documented in this encounter Visit Diagnoses Diagnosis H/O mechanical aortic valve replacement [facility] current 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
--- OUTSIDE RECORDS SUMMARY | 2024-04-01 07:54 | XMS_ITS | Encounter Summary ---
Author Organization [facility] Medical [facility] Address [address] [facility] [address] [place] [address] Care Team Providers Care Manager Cardiac Cath Name Role Phone Unavailable Primary Care Provider Unavailabl e Encounter Details Date Type Department Care Team (Late st Contact Info) Description 05/27/2017 Telephone [facility] [address] [facility] [address] [place] [phone] Bindu Gaines MD [address] [facility] 102 [place] [address] Social History Tobacco Use Types Packs/Day Years Used Date Smoking Tobacco: Never Smokeless Tobacco: Never Alcohol Use Standard Drinks/Week Comments Yes 1 (1 standard drink = 0.6 oz pur e alcohol) Comments Unknown Sex and Gender Information Value Date Recorded Sex Assigned at Not on file Legal Sex Female 8:13 AM BRUSH LOADER AND HANDLE ATTACHER Gender Identity Female 06/01/2020 9:42 PM BRUSH LOADER AND HANDLE ATTACHER Sexual Orientation Straight 06/01/2020 9: 42 PM BRUSH LOADER AND HANDLE ATTACHER documented as of this encounter Miscellaneous Notes * Telephone Encounter - Suzanne Germain RN - 05/27/2017 11:40 AM CST Spoke with pt, her INR last week was 3.2,so she will take 2-3 days of clindamycin and then take onetime dose of warfarin 2.5mg , then resume 5 mg daily. And check INR in 1 week. H LOADER AND HANDLE ATTACHER * Telephone Encounter - Suzanne Germain RN - 05/27/2017 10:16 AM CST LMTC, just ask to speak to a nurse. H LOADER AND HANDLE ATTACHER documented in this encounter Plan of Treatment Not on file documented as of this encounter Visit Diagnoses Not on filedocumented in this encounter
--- OUTSIDE RECORDS SUMMARY | 2024-04-01 07:54 | XMS_ITS | Encounter Summary ---
Author Organization [facility] Medical [facility] Address [address] [facility] [address] [place] [address] Care Team Providers Care Occupational Hygienist Name Role Phone Unavailable Primary Care Provider Unavailabl e Encounter Details Date Type Department Care Team (Latest Contact Info) Description 10/23/2017 Anticoagulation Visit [facility] [address] [place] [address] Bindu Gaines MD [address] [facility] [address] [place] [address] H/O mechanical aortic valve replacement; group home current use of anticoagulant therapy Social History Tobacco Use Types Packs/Day Years Used Date Smoking Tobacco: Never Smokeless Tobacco: Never Alcohol Use Standard Drinks/Week Comments Yes 1 (1 standard drink = 0.6 oz pur e alcohol) Comments Unknown Sex and Gender Information Value Date Recorded Sex Assigned at Not on file Legal Sex Female 8:13 AM SENSITOMETRIST Gender Identity Female 06/01/2020 9:42 PM SENSITOMETRIST Sexual Orientation Straight 06/01/2020 9: 42 PM SENSITOMETRIST documented as of this encounter Plan of Treatment Not on file documented as of this encounter Procedures Procedure Name Priority Date/Time Associated Diagnosis Comments PROTIME-INR Routine 10/22/2017 documented in this encounter Results * (ABNORMAL) Protime-INR (10/22/2017) INR 2.40(A) 0.9 - 1.1 [facility] Blood specimen (specimen) us Historical Provider LAB BLOOD ORDERABLES Antonina hernandez Result [facility] documented in this encounter Visit Diagnoses Diagnosis H/O mechanical aortic valve replacement 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
--- OUTSIDE RECORDS SUMMARY | 2024-04-01 07:54 | XMS_ITS | Encounter Summary ---
Author Organization [facility] Medical Group Address [address] [facility] [address] [place] [address] Care Team Providers Care Perfect Binder Operator Name Role Phone Unavailable Primary Care Provider Unavailabl e Encounter Details Date Type Department Care Team (Late st Contact Info) Description 04/08/2017 Telephone [facility] [address] [facility] [address], [place] [address] Bindu Gaines MD [address] [facility] 102 [place] [address] Social History Tobacco Use Types Packs/Day Years Used Date Smoking Tobacco: Never Smokeless Tobacco: Never Alcohol Use Standard Drinks/Week Comments Yes 1 (1 standard drink = 0.6 oz pur e alcohol) Comments Unknown Sex and Gender Information Value Date Recorded Sex Assigned at Not on file Legal Sex Female 8:13 AM CARDIOTHORACIC PHYSIOTHERAPIST Gender Identity Female 06/01/2020 9:42 PM CARDIOTHORACIC PHYSIOTHERAPIST Sexual Orientation Straight 06/01/2020 9: 42 PM CARDIOTHORACIC PHYSIOTHERAPIST documented as of this encounter Miscellaneous Notes * Telephone Encounter - Suzanne Germain RN - 04/08/2017 9:16 AM CST See flow sheet IOTHORACIC PHYSIOTHERAPIST documented in this encounter Plan of Treatment Not on file documented as of this encounter Visit Diagnoses Not on filedocumented in this encounter
--- OUTSIDE RECORDS SUMMARY | 2024-04-01 07:54 | XMS_ITS | Encounter Summary ---
Author Organization [facility] Address [address] [facility] [address] [place] [address] Care Team Providers Care Ad Operations Specialist Name Role Phone Unavailable Primary Care Provider Unavailabl e Reason for Referral * Diagnostic Imaging (Routine) - Closed Specialty Diagnoses / Procedures Referred By Contac t Referred To Contact Cardiology Imaging Diagnoses Bicuspid aortic valve H/O mechanical aortic valve replacement Procedures Transthoracic Echo Complete W Doppler/CF Rachel Mott NP Phone: tel: fax: [facility] Card[facility] [address] [address] Phone: tel: fax: Referral ID Status Reason Start Date Expiration Date Visits Re quested Visits Authorized [id number] Closed 11/10/2017 05/22/2019 1 1 Reason for Visit * Reason Comments Follow-up yearly follow up on bicuspid aoritc valve Encounter Details Date Type Department Care Team (Late st Contact Info) Description 11/10/2017 8:30 AM CDT Office Visit [facility] [address] [place] [address] [address] Rachel Mott NP [address] [facility] [address] [place] [address] [phone] Bicuspid aortic valve (Primary Dx); Multiple-type hyperlipidemia; H/O mechanical aortic valve replacement; [facility] [...] on file Legal Sex Female 8:13 AM OVERSEAMER Gender Identity Female 06/01/2020 9:42 PM OVERSEAMER Sexual Orientation Straight 06/01/2020 9: 42 PM OVERSEAMER documented as of this encounter Last Filed Vital Signs Vital Sign Reading Time Taken Comments Blood Pressure 114/78 11/10/2017 8:30 AM CDT Pulse 88 11/10/2017 8:30 AM CDT Temperature - - Respiratory Rate - - Oxygen Saturation 98% 11/10/2017 8:30 AM CDT Inhaled Oxygen Concentration - - Weight 59.9 kg (132 lb) 11/10/2017 8:30 AM CDT Height 160 cm (5' 3 ) 11/10/2017 8:30 AM CDT Body Mass Index 23.38 11/10/2017 8:30 AM CDT documented in this encounter Patient Instructions * Patient Instructions* Rachel Mott NP - 11/10/2017 8:30 AM CDT I have ordered fasting blood work to be done in 3 months. You should not eat or drink anything for 8-10 hours before the test. You can still drink water and take medicine at your regular times. This will not effect the result of the test. documented in this encounter Progress Notes * Rachel Mott NP - 11/10/2017 8:30 AM CDT Patient ID: Yessy Donaldson 1955 Chief Complaint: Yessy Donaldson is a 62 y.o. female who is an established patient of Dr. Gaines here for an annual visit to monitor her aortic valve disease. 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 Guthrie in 2008. She is chronically anticoagulated. She is aware of need for SBE antibiotic prophylaxis prior to dental work and nonsterile procedures. ECHO 2014 good LV fxn, EF 63%, LYNSEY 1.2 cm2, mean grad 13 mmHg. She also has mild asthma. 11/10/2016 OV: The patient was last seen in August 2015 doing well. She continues to be active, with noparticular problems with chest pain or TRINH. Fitness class and water aerobics have fallen away afterdisabled son moved back home and broke his leg. No problems with anticoagulation; no bleeding. Cholest 221. 11/10/2017 OV w/ SEAM FINISHER Jessica: Here for annual visit. No specific [...] not been followinga very heart healthy diet. Developed some mild hearing loss and tinnitus.. Has arthritis pain; Celebrex helps. 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 Her son in mid-30's is also severely disabled, and moved into a residential but it didn't work out and now is back home. Her mother, with whom she was not close, April 2012, and her uncle also around that same time. VALVULAR: 1 Severe , Bicuspid Aortic Valve [ECHO EF 70%, LVH, mod , pk alvaro 3.6, pk grad 52, mean 29.] - 2006 2 Severe [ECHO EF 71%, LVH, diast. dysfxn, LYNSEY 0.5-0.6 cm2, mild AI peak grad 63, mean grad 37 mmHg.] - 06/2008 3 AVR [19 mm Ravia valve, Dr. Guthrie] - 10/2008 4 01/19: ECHO EF 63%, LYNSEY 1.0-1.1 cm2, mean grad 8 mmHg - 01/2009 5 ECHO EF 63%, LYNSEY 1.2 cm2, mean grad 11 - 09/14/2014 Records that I personally reviewed on the day of this visit include: (the interpretation is outlined in the chief complaint above) 10/21/[address] Gaines, today's point of care lipid panel I have also reviewed: allergies, current medications, past family history, past medical history, past social history, past surgical history and problem list Review of Systems Constitution: Negative for diaphoresis, fever, malaise/fatigue, weight gain and weight loss. HENT: Negative for hearing loss. Eyes: Negative for visual disturbance. Cardiovascular: Negative for chest pain, claudication, dyspnea on exertion, leg swelling, orthopnea, palpitations, paroxysmal nocturnal dyspnea and syncope. Respiratory: Positive for shortness of breath. Negative for cough, hemoptysis, snoring and wheezing. Hematologic/Lymphatic: Bruises/bleeds easily. Skin: Negative for poor wound healing and rash. No easy bruising. No bleeding problems. Musculoskeletal: Negative for joint pain and myalgias. Gastrointestinal: Positive for heartburn. Negative for nausea and vomiting. No reflux Genitourinary: Negative for hematuria. Neurological: Negative for dizziness, headaches and light-headedness. Psychiatric/Behavioral: Negative for depression. The patient is not nervous/anxious. Vital Signs: BP 114/78 (BP Location: Left arm, Patient Position: Sitting) Pulse 88 Ht 160 cm (5' 3 ) Wt 59.9 kg (132 lb) SpO2 98% BMI 23.38 kg/m?? Physical Exam Constitutional: She is oriented to person, place, and time. She appears well- developed and well-nourished. No distress. HENT: Head: Normocephalic and atraumatic. Nose: Nose normal. Mouth/Throat: Mucous membranes are normal. Eyes: Pupils are equal, round, and reactive to light. Conjunctivae and EOM are normal. No scleral icterus. Neck: Normal range of motion. No JVD present. No tracheal deviation present. Cardiovascular: Normal rate, regular rhythm and normal heart sounds. No murmur heard. Leon click of mechanical valve. Pulmonary/Chest: Effort normal and breath sounds normal. No respiratory distress. Abdominal: Soft. Bowel sounds are normal. There is no tenderness. Musculoskeletal: Normal range of motion. She exhibits no edema. Neurological: She is alert and oriented to person, place, and time. Skin: Skin is warm and dry. Psychiatric: She has a normal mood and affect. No Known Allergies Current Outpatient Prescriptions: ??? albuterol HFA (PROAIR HFA) 90 mcg/actuation inhaler, inhale 2 puff by inhalation route every 4 - 6 hours as needed, Disp: , Rfl: 0 ??? aspirin 81 mg tablet, Take one by mouth one time per day, Disp: 0, Rfl: 0 ??? celecoxib (CeleBREX) 200 mg capsule, Take 1 capsule (200 mg total) by mouth daily., Disp: 30 capsule, Rfl: 0 ??? clobetasol (TEMOVATE) 0.05 % ointment, Apply topically 2 (two) times a day., Disp: , Rfl: ??? famotidine (PEPCID) 20 mg tablet, take 1 tablet by ORAL route every day, Disp: 0, Rfl: 0 ??? multivitamin tablet tablet, Take 1 tablet by mouth daily., Disp: , Rfl: ??? warfarin (COUMADIN) 1 mg tablet, Take as directed, Disp: 30, Rfl: 6 ??? warfarin (COUMADIN) 5 mg tablet, Take 1 tablet (5 mg total) by mouth daily. Take one daily or as directed., Disp: 90 tablet, Rfl: 0 Assessment: Diagnoses and all orders for this visit: Bicuspid aortic valve (Primary) - Transthoracic Echo Complete W Doppler/CF; Future Multiple-type hyperlipidemia - POCT lipid panel - Lipid panel; Future H/O mechanical aortic valve replacement - Transthoracic Echo Complete W Doppler/CF; Future oysterman current use of anticoagulant therapy Plan/Recommendations: On auscultation, her valve sounds like it is functioning normally. She does not exhibit any signs or symptoms of CHF. Since her last surveillance echo was performed 3 years ago, I will arrange for her to return to the office for a new echocardiogram. She remains compliant with her warfarin. She wasreminded of SBE prophylaxis. Counseling performed at this visit included heart healthy diet and signs and symptoms of CHF exacerbation. Counseling was also performed regarding the patient's BMI and weight loss strategy. The strategy identified was dietary modifications and reduce added sugar intake. The discussion focused on dietary changes to bring down lipid levels, as well as managing dietary vitamin K intake while takingwarfarin. She does not have a personal history of CAD, but has a family history of CAD and CVA. She remains on aspirin. I cautioned her on concomitant use of aspirin, Celebrex and warfarin. She does take famotidine. Her lipid levels are higher than they were last year. I gave her an order to recheck a fasting lipid panel in about 3 months. I will allow her time to make some dietary changes before initiating medical therapy. Return to the office to see Dr. Gaines in 12 months. Call us sooner with questions or concerns. Cosigned by Bindu Gaines MD at 11/13/2017 4:42 PM CDT Associated attestation - Bindu Gaines MD - 11/13/2017 4:42 PM CDT REvivewed; agree w/ Assessment and Plan. documented in this encounter Plan of Treatment Not on file documented as of this encounter Procedures Procedure Name Priority Date/Time Associated Diagnosis Comments LIPID PANEL Routine 01/18/2018 Multiple-type hyperlipidemia POCT LIPID PANEL Routine 11/10/2017 9:08 AM CDT Multiple-type hyperlipidemia documented in this encounter Results * (ABNORMAL) Lipid panel (01/18/2018) SCRIBED Cholesterol, Total 239(A) 0 - 200 [facility] SCRIBED HDL 54 50 - 95 [facility] SCRIBED LDL 158(A) 0 - 100 [facility] SCRIBED Triglycerides 141 0 - 150 [facility] Blood specimen (specimen) 01/18/2018 us Rachel Mott NP LAB BLOOD ORDERABLES Antonina hernandez Result [facility] * TRANSTHORACIC ECHO (TTE) COMPLETE W DOPPLER/CF WO CONTRAST (11/20/2017 3:39 PM CDT) Anatomical Region Laterality Modality Ultrasound 11/20/2017 12:2 8 PM CDT Narrative 11/20/2017 4:26 PM CDT [facility] [address] [facility] [address], [place] [address] [address], [place] [address] P:[phone] P:[phone] Echocardiographic Report Patient Name: YESSY DONALDSON : 1955 Study Date: 11/20/2017 12:28:34 PM Gender: F Tech: Location: [place] Ref.Physician: LOGAN Height(Cm): 160 BSA: 1.62 Weight(Kg): 59.88 Heart Rate: 82 BP: 100/55 Quality: Good Order Physician: RACHEL MOTT Procedures: Echocardiographic Report: Transthoracic echocardiogram [...] Findings: Interpretation Site: Exam was interpreted at [facility]. Left Ventricle: Normal left ventricular systolic function. [...] MD - 11/20/2017 [facility] [facility] [address] [id number] [address] [facility] [address], [place] [address] P:[phone] P:[phone] Echocardiographic Report Patient Name: YESSY DONALDSONPatient ID: [id number] : [id number] Date: 11/20/2017 12:28:34 PM Gender: FAccession #: [id number] Tech: GMLocation: [place] Ref.Physician: Carrilloight(Cm): 160 BSA: 1.62Weight(Kg): 59.88 Heart Rate: 82BP: 100/55 Quality: GoodOrder Physician: RACHEL MOTT Procedures: Echocardiographic Report: Transthoracic echocardiogram [...] 2.70 - 3.80 ] cm MV Decel [id number] [ 150 - 200 ] msec AoR [...] Findings: Interpretation Site: Exam was interpreted at [facility]. Left Ventricle: Normal left ventricular systolic function. [...] Solano MD 2017-11-20 16:26:30 CDT CC: CC: Rachel Mott NP CV ECHO PROCEDURES Final Result * POCT lipid panel (11/10/2017 9:08 AM CDT) Cholesterol, POC 243 mg/dL HDL, POC 61 mg/dL Triglycerides, POC 103 mg/dL LDL Cholesterol POC 161 mg/dL Chol/HDL Ratio, POC 4.0 Non-HDL Cholesterol, POC 182 mg/dL Cholesterol Total, POC 243 mg/dL Blood specimen (specimen) 11/10/2017 9:08 AM CDT Rachel Mott NP POINT OF CARE TEST ORDERA BLES Final Result documented in this encounter Visit Diagnoses Diagnosis Bicuspid aortic valve- Primary Congenital insufficiency of aortic valve Multiple-type hyperlipidemia Other and unspecified hyperlipidemia H/O mechanical aortic valve replacement [facility] current use of anticoagulant therapy Bicuspid aortic valve Congenital insufficiency of aortic valve H/O mechanical aortic valve replacement documented in this encounter Discontinued Medications Medication Sig Discontinue Reason Start Date End Da te warfarin (COUMADIN) 5 mg tablet TAKE 1 TABLET BY MOUTH EVERY DAY Duplicate order 10/28/2016 11/10/2017 warfarin (COUMADIN) 5 mg tablet TAKE 1 TABLET BY MOUTH EVERY DAY Duplicate order 05/04/2017 11/10/2017 documented as of this encounter Historical Medications * This list may reflect changes made after this encounter. clobetasol (TEMOVATE) 0.05 % ointment Apply topically 2 (two) times a day. 9 added in this encounter
--- OUTSIDE RECORDS SUMMARY | 2024-04-01 07:54 | XMS_ITS | Encounter Summary ---
Author Organization [facility] Address [address] [facility] [address] [place] [address] Care Team Providers Care Tire Setter Name Role Phone Unavailable Primary Care Provider Unavailabl e Encounter Details Date Type Department Care Team (Latest Contact Info) Description 09/09/2017 Anticoagulation Visit [facility] [address] [place] [address] Bindu Gaines MD [address] [facility] [address] [place] [address] H/O mechanical aortic valve replacement; [facility] current use of anticoagulant therapy Social History Tobacco Use Types Packs/Day Years Used Date Smoking Tobacco: Never Smokeless Tobacco: Never Alcohol Use Standard Drinks/Week Comments Yes 1 (1 standard drink = 0.6 oz pur e alcohol) Comments Unknown Sex and Gender Information Value Date Recorded Sex Assigned at Not on file Legal Sex Female 8:13 AM REHABILITATION AIDE/SCHEDULER Gender Identity Female 06/01/2020 9:42 PM REHABILITATION AIDE/SCHEDULER Sexual Orientation Straight 06/01/2020 9: 42 PM REHABILITATION AIDE/SCHEDULER documented as of this encounter Plan of Treatment Not on file documented as of this encounter Procedures Procedure Name Priority Date/Time Associated Diagnosis Comments PROTIME-INR Routine 09/08/2017 documented in this encounter Results * (ABNORMAL) Protime-INR (09/08/2017) INR 4.00(A) 0.9 - 1.1 [facility] Blood specimen (specimen) us Historical Provider LAB BLOOD ORDERABLES Antonina hernandez Result [facility] documented in this encounter Visit Diagnoses Diagnosis H/O mechanical aortic valve replacement 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
--- OUTSIDE RECORDS SUMMARY | 2024-04-01 07:54 | XMS_ITS | Encounter Summary ---
Author Organization [facility] Address [address] [facility] [address] [place] [address] Care Team Providers Care Regional Operations Director Name Role Phone Unavailable Primary Care Provider Unavailabl e Encounter Details Date Type Department Care Team (Latest Contact Info) Description 05/22/2017 Anticoagulation Visit [facility] [address] [place] [address] Bindu Gaines MD [address] [place] [address] H/O mechanical aortic valve replacement; [facility] current use of anticoagulant therapy Social History Tobacco Use Types Packs/Day Years Used Date Smoking Tobacco: Never Smokeless Tobacco: Never Alcohol Use Standard Drinks/Week Comments Yes 1 (1 standard drink = 0.6 oz pur e alcohol) Comments Unknown Sex and Gender Information Value Date Recorded Sex Assigned at Not on file Legal Sex Female 8:13 AM PERIOPERATIVE EDUCATOR Gender Identity Female 06/01/2020 9:42 PM PERIOPERATIVE EDUCATOR Sexual Orientation Straight 06/01/2020 9: 42 PM PERIOPERATIVE EDUCATOR documented as of this encounter Plan of Treatment Not on file documented as of this encounter Procedures Procedure Name Priority Date/Time Associated Diagnosis Comments PROTIME-INR Routine 05/21/2017 documented in this encounter Results * (ABNORMAL) Protime-INR (05/21/2017) INR 3.20(A) 0.9 - 1.1 [facility] Blood specimen (specimen) us Historical Provider LAB BLOOD ORDERABLES Antonina hernandez Result [facility] documented in this encounter Visit Diagnoses Diagnosis H/O mechanical aortic valve replacement 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
--- OUTSIDE RECORDS SUMMARY | 2024-04-01 07:54 | XMS_ITS | Encounter Summary ---
Author Organization [facility] Address [address] [facility] [address] [place] [address] Care Team Providers Care Pie Maker Machine Name Role Phone Unavailable Primary Care Provider Unavailabl e Encounter Details Date Type Department Care Team (Latest Contact Info) Description 06/03/2017 Anticoagulation Visit [facility] [address] [facility] [address], [place] [address] Bindu Gaines MD [address] [facility] [address] [place] [address] H/O mechanical aortic valve replacement; care [...] on file Legal Sex Female 8:13 AM MARINA MANAGER Gender Identity Female 06/01/2020 9:42 PM MARINA MANAGER Sexual Orientation Straight 06/01/2020 9: 42 PM MARINA MANAGER documented as of this encounter Plan of Treatment Not on file documented as of this encounter Procedures Procedure Name Priority Date/Time Associated Diagnosis Comments PROTIME-INR Routine 06/02/2017 documented in this encounter Results * (ABNORMAL) Protime-INR (06/02/2017) INR 3.50(A) 0.9 - 1.1 [facility] Blood specimen (specimen) us Historical Provider LAB BLOOD ORDERABLES Antonina hernandez Result [facility] documented in this encounter Visit Diagnoses Diagnosis H/O mechanical aortic valve replacement care home current 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
--- OUTSIDE RECORDS SUMMARY | 2024-04-01 07:54 | XMS_ITS | Encounter Summary ---
Author Organization [facility] Address [address] [facility] [address] [place] [address] Care Team Providers Care Dope Weigh Operator Name Role Phone Unavailable Primary Care Provider Unavailabl e Encounter Details Date Type Department Care Team (Latest Contact Info) Description 09/18/2017 Anticoagulation Visit [facility] [address] [place] [address] Bindu Gaines MD [address] [facility] [address] [place] [address] H/O mechanical aortic valve replacement; senior care current use of anticoagulant therapy Social History Tobacco Use Types Packs/Day Years Used Date Smoking Tobacco: Never Smokeless Tobacco: Never Alcohol Use Standard Drinks/Week Comments Yes 1 (1 standard drink = 0.6 oz pur e alcohol) Comments Unknown Sex and Gender Information Value Date Recorded Sex Assigned at Not on file Legal Sex Female 8:13 AM RETIREMENT PLAN SPECIALIST Gender Identity Female 06/01/2020 9:42 PM RETIREMENT PLAN SPECIALIST Sexual Orientation Straight 06/01/2020 9: 42 PM RETIREMENT PLAN SPECIALIST documented as of this encounter Plan of Treatment Not on file documented as of this encounter Procedures Procedure Name Priority Date/Time Associated Diagnosis Comments PROTIME-INR Routine 09/17/2017 documented in this encounter Results * (ABNORMAL) Protime-INR (09/17/2017) INR 2.80(A) 0.9 - 1.1 [facility] Blood specimen (specimen) us Historical Provider LAB BLOOD ORDERABLES Antonina hernandez Result [facility] documented in this encounter Visit Diagnoses Diagnosis H/O mechanical aortic valve replacement 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
--- OUTSIDE RECORDS SUMMARY | 2024-04-01 07:54 | XMS_ITS | Encounter Summary ---
Author Organization [facility] Address [address] [facility] [address] [place] [address] Care Team Providers Care Cadd Drafter Name Role Phone Unavailable Primary Care Provider Unavailabl e Encounter Details Date Type Department Care Team (Latest Contact Info) Description 07/16/2017 Anticoagulation Visit [facility] [address] [place] [address] Bindu Gaines MD [address] [place] [address] H/O mechanical aortic valve replacement; detention current use of anticoagulant therapy Social History Tobacco Use Types Packs/Day Years Used Date Smoking Tobacco: Never Smokeless Tobacco: Never Alcohol Use Standard Drinks/Week Comments Yes 1 (1 standard drink = 0.6 oz pur e alcohol) Comments Unknown Sex and Gender Information Value Date Recorded Sex Assigned at Not on file Legal Sex Female 8:13 AM MACHINERY CLEANER Gender Identity Female 06/01/2020 9:42 PM MACHINERY CLEANER Sexual Orientation Straight 06/01/2020 9: 42 PM MACHINERY CLEANER documented as of this encounter Plan of Treatment Not on file documented as of this encounter Procedures Procedure Name Priority Date/Time Associated Diagnosis Comments PROTIME-INR Routine 07/15/2017 documented in this encounter Results * (ABNORMAL) Protime-INR (07/15/2017) INR 3.70(A) 0.9 - 1.1 [facility] Blood specimen (specimen) us Historical Provider LAB BLOOD ORDERABLES Antonina hernandez Result [facility] documented in this encounter Visit Diagnoses Diagnosis H/O mechanical aortic valve replacement 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
--- OUTSIDE RECORDS SUMMARY | 2024-04-01 07:54 | XMS_ITS | Encounter Summary ---
Author Organization [facility] Address [address] [facility] [address] [place] [address] Care Team Providers Care Project Administrator Name Role Phone Unavailable Primary Care Provider Unavailabl e Encounter Details Date Type Department Care Team (Latest Contact Info) Description 06/19/2017 Anticoagulation Visit [facility] [address] [place] [address] Bindu Gaines MD [address] [place] [address] H/O mechanical aortic valve replacement; detention current use of anticoagulant therapy Social History Tobacco Use Types Packs/Day Years Used Date Smoking Tobacco: Never Smokeless Tobacco: Never Alcohol Use Standard Drinks/Week Comments Yes 1 (1 standard drink = 0.6 oz pur e alcohol) Comments Unknown Sex and Gender Information Value Date Recorded Sex Assigned at Not on file Legal Sex Female 8:13 AM WOOD MOLDER Gender Identity Female 06/01/2020 9:42 PM WOOD MOLDER Sexual Orientation Straight 06/01/2020 9: 42 PM WOOD MOLDER documented as of this encounter Plan of Treatment Not on file documented as of this encounter Procedures Procedure Name Priority Date/Time Associated Diagnosis Comments PROTIME-INR Routine 06/18/2017 documented in this encounter Results * (ABNORMAL) Protime-INR (06/18/2017) INR 3.40(A) 0.9 - 1.1 [facility] Blood specimen (specimen) us Historical Provider LAB BLOOD ORDERABLES Antonina hernandez Result [facility] documented in this encounter Visit Diagnoses Diagnosis H/O mechanical aortic valve replacement 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
--- OUTSIDE RECORDS SUMMARY | 2024-04-01 07:54 | XMS_ITS | Encounter Summary ---
Author Organization [facility] Address [address] [facility] [address] [place] [address] Care Team Providers Care Order Manager Name Role Phone Unavailable Primary Care Provider Unavailabl e Encounter Details Date Type Department Care Team (Latest Contact Info) Description 10/09/2017 Anticoagulation Visit [facility] [address] [place] [address] Bindu Gaines MD [address] [place] [address] H/O mechanical aortic valve replacement; [facility] current use of anticoagulant therapy Social History Tobacco Use Types Packs/Day Years Used Date Smoking Tobacco: Never Smokeless Tobacco: Never Alcohol Use Standard Drinks/Week Comments Yes 1 (1 standard drink = 0.6 oz pur e alcohol) Comments Unknown Sex and Gender Information Value Date Recorded Sex Assigned at Not on file Legal Sex Female 8:13 AM SHOW DOG TRAINER Gender Identity Female 06/01/2020 9:42 PM SHOW DOG TRAINER Sexual Orientation Straight 06/01/2020 9: 42 PM SHOW DOG TRAINER documented as of this encounter Plan of Treatment Not on file documented as of this encounter Procedures Procedure Name Priority Date/Time Associated Diagnosis Comments PROTIME-INR Routine 10/08/2017 documented in this encounter Results * (ABNORMAL) Protime-INR (10/08/2017) INR 2.40(A) 0.9 - 1.1 [facility] Blood specimen (specimen) us Historical Provider LAB BLOOD ORDERABLES Antonina hernandez Result [facility] documented in this encounter Visit Diagnoses Diagnosis H/O mechanical aortic valve replacement 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
--- OUTSIDE RECORDS SUMMARY | 2024-04-01 07:54 | XMS_ITS | Encounter Summary ---
Author Organization [facility] Address [address] [facility] [address] [place] [address] Care Team Providers Care Coffee Machine Technician Name Role Phone Unavailable Primary Care Provider Unavailabl e Encounter Details Date Type Department Care Team (Latest Contact Info) Description 11/06/2017 Anticoagulation Visit [facility] [address] [place] [address] Bindu Gaines MD [address] [facility] [address] [place] [address] H/O mechanical aortic valve replacement; long-term current use of anticoagulant therapy Social History Tobacco Use Types Packs/Day Years Used Date Smoking Tobacco: Never Smokeless Tobacco: Never Alcohol Use Standard Drinks/Week Comments Yes 1 (1 standard drink = 0.6 oz pur e alcohol) Comments Unknown Sex and Gender Information Value Date Recorded Sex Assigned at Not on file Legal Sex Female 8:13 AM ATOMIC PROCESS ENGINEER Gender Identity Female 06/01/2020 9:42 PM ATOMIC PROCESS ENGINEER Sexual Orientation Straight 06/01/2020 9: 42 PM ATOMIC PROCESS ENGINEER documented as of this encounter Plan of Treatment Not on file documented as of this encounter Procedures Procedure Name Priority Date/Time Associated Diagnosis Comments PROTIME-INR Routine 11/05/2017 documented in this encounter Results * (ABNORMAL) Protime-INR (11/05/2017) INR 2.80(A) 0.9 - 1.1 [facility] Blood specimen (specimen) us Historical Provider LAB BLOOD ORDERABLES Antonina hernandez Result [facility] documented in this encounter Visit Diagnoses Diagnosis H/O mechanical aortic valve replacement 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
--- OUTSIDE RECORDS SUMMARY | 2024-04-01 07:55 | XMS_ITS | Encounter Summary ---
Author Organization [facility] Medical [facility] Address [address] [facility] [address] [place] [address] Care Team Providers Care Captain'S Assistant Name Role Phone Unavailable Primary Care Provider Unavailabl e Encounter Details Date Type Department Care Team (Late st Contact Info) Description 11/20/2016 Orders Only [facility] [address] [facility] [address], [place] [address] Bindu Gaines MD [address] [facility] [address] [place] [address] Social History Tobacco Use Types Packs/Day Years Used Date Smoking Tobacco: Never Smokeless Tobacco: Never Alcohol Use Standard Drinks/Week Comments Yes 1 (1 standard drink = 0.6 oz pur e alcohol) Comments Unknown Sex and Gender Information Value Date Recorded Sex Assigned at Not on file Legal Sex Female 8:13 AM SERVICE CENTER SPECIALIST Gender Identity Female 06/01/2020 9:42 PM SERVICE CENTER SPECIALIST Sexual Orientation Straight 06/01/2020 9: 42 PM SERVICE CENTER SPECIALIST documented as of this encounter Plan of Treatment Not on file documented as of this encounter Procedures Procedure Name Priority Date/Time Associated Diagnosis Comments PROTIME-INR Routine 11/20/2016 7:25 AM CDT documented in this encounter Results * (ABNORMAL) Protime-INR (11/20/2016 7:25 AM CDT) INR 3.7(H) [facility] [place] Comment: Reference Range ? 0.9-1.1 Moderate-intensity Warfarin Therapy 2.0-3.0 Higher-intensity Warfarin Therapy ?? 3.0-4.0 PT 37.3(H) 9.0 - 11.5 sec [facility] [place] Comment: For more information on this test, go to: http://education.Dubb/faq/HEK120 ? Your request to have a duplicate copy faxed has been acknowledged. ?Queued to: ??[id number] 11/20/2016 7:25 AM CDT 11/20/2016 7:25 AM CDT Narrative Resulting Agency Comment Performing Organization Information: ?Site ID: ?Name: [facility] ?Address: [facility] [place] [address] ?Director: Adilson Hameed MD us Bindu Gaines MD LAB BLOOD ORDERABLES Final Result [facility] [place] Dhillon documented in this encounter Visit Diagnoses Not on filedocumented in this encounter
--- OUTSIDE RECORDS SUMMARY | 2024-04-01 07:55 | XMS_ITS | Encounter Summary ---
Author Organization [facility] Medical [facility] Address [address] [facility] [address] [place] [address] Care Team Providers Care Idea Worker Name Role Phone Unavailable Primary Care Provider Unavailabl e Encounter Details Date Type Department Care Team (Latest Contact Info) Description 12/05/2016 Anticoagulation Visit [facility] [address] [place] [address] Bindu Gaines MD [address] [place] [address] H/O mechanical aortic valve replacement; [facility] current use of anticoagulant therapy Social History Tobacco Use Types Packs/Day Years Used Date Smoking Tobacco: Never Smokeless Tobacco: Never Alcohol Use Standard Drinks/Week Comments Yes 1 (1 standard drink = 0.6 oz pur e alcohol) Comments Unknown Sex and Gender Information Value Date Recorded Sex Assigned at Not on file Legal Sex Female 8:13 AM PHARMACY RESIDENT Gender Identity Female 06/01/2020 9:42 PM PHARMACY RESIDENT Sexual Orientation Straight 06/01/2020 9: 42 PM PHARMACY RESIDENT documented as of this encounter Plan of Treatment Not on file documented as of this encounter Procedures Procedure Name Priority Date/Time Associated Diagnosis Comments PROTIME-INR Routine 12/04/2016 4:10 PM CDT documented in this encounter Results * (ABNORMAL) Protime-INR (12/04/2016 4:10 PM CDT) INR 2.10(A) 0.9 - 1.1 [facility] Blood specimen (specimen) us Historical Provider LAB BLOOD ORDERABLES Antonina hernandez Result [facility] documented in this encounter Visit Diagnoses Diagnosis H/O mechanical aortic valve replacement 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
--- OUTSIDE RECORDS SUMMARY | 2024-04-01 07:55 | XMS_ITS | Encounter Summary ---
Author Organization [facility] Medical [facility] Address [address] [facility] [address] [place] [address] Care Team Providers Care Shirt Ironer Supervisor Name Role Phone Unavailable Primary Care Provider Unavailabl e Encounter Details Date Type Department Care Team (Late st Contact Info) Description 12/16/2016 Orders Only [facility] [address] [facility] [address], [place] [address] Bindu Gaines MD [address] [facility] 102 [place] [address] Social History Tobacco Use Types Packs/Day Years Used Date Smoking Tobacco: Never Smokeless Tobacco: Never Alcohol Use Standard Drinks/Week Comments Yes 1 (1 standard drink = 0.6 oz pur e alcohol) Comments Unknown Sex and Gender Information Value Date Recorded Sex Assigned at Not on file Legal Sex Female 8:13 AM CASING PULLER Gender Identity Female 06/01/2020 9:42 PM CASING PULLER Sexual Orientation Straight 06/01/2020 9: 42 PM CASING PULLER documented as of this encounter Plan of Treatment Not on file documented as of this encounter Procedures Procedure Name Priority Date/Time Associated Diagnosis Comments PROTIME-INR Routine 12/16/2016 10:35 AM CDT documented in this encounter Results * (ABNORMAL) Protime-INR (12/16/2016 10:35 AM CDT) INR 3.2(H) [facility] [place] Comment: Reference Range ? 0.9-1.1 Moderate-intensity Warfarin Therapy 2.0-3.0 Higher-intensity Warfarin Therapy ?? 3.0-4.0 PT 32.1(H) 9.0 - 11.5 sec [facility] [place] Comment: For more information on this test, go to: http://education.TreeRing/faq/VRN453 ? Your request to have a duplicate copy faxed has been acknowledged. ?Queued to: ??[id number] 12/16/2016 10:3 5 AM CDT 12/16/2016 10:35 AM CDT Narrative Resulting Agency Comment Performing Organization Information: ?Site ID: ?Name: [facility] ?Address: [address] [place] [address] ?Director: Adilson Hameed MD us Bindu Gaines MD LAB BLOOD ORDERABLES Final Result [facility] [place] Dhillon documented in this encounter Visit Diagnoses Not on filedocumented in this encounter
--- OUTSIDE RECORDS SUMMARY | 2024-04-01 07:55 | XMS_ITS | Encounter Summary ---
Author Organization [facility] Medical [facility] Address [address] [facility] [address] [place] [address] Care Team Providers Care Director Home Name Role Phone Unavailable Primary Care Provider Unavailabl e Encounter Details Date Type Department Care Team (Latest Contact Info) Description 11/21/2016 Anticoagulation Visit [facility] [address] [place] [address] Bindu Gaines MD [address] [place] [address] H/O mechanical aortic valve replacement; shelter current use of anticoagulant therapy Social History Tobacco Use Types Packs/Day Years Used Date Smoking Tobacco: Never Smokeless Tobacco: Never Alcohol Use Standard Drinks/Week Comments Yes 1 (1 standard drink = 0.6 oz pur e alcohol) Comments Unknown Sex and Gender Information Value Date Recorded Sex Assigned at Not on file Legal Sex Female 8:13 AM CERAMICS INSTRUCTOR Gender Identity Female 06/01/2020 9:42 PM CERAMICS INSTRUCTOR Sexual Orientation Straight 06/01/2020 9: 42 PM CERAMICS INSTRUCTOR documented as of this encounter Plan of Treatment Not on file documented as of this encounter Procedures Procedure Name Priority Date/Time Associated Diagnosis Comments PROTIME-INR Routine 11/20/2016 7:25 AM CDT documented in this encounter Results * (ABNORMAL) Protime-INR (11/20/2016 7:25 AM CDT) INR 3.70(A) 0.9 - 1.1 [facility] Blood specimen (specimen) us Historical Provider LAB BLOOD ORDERABLES Antonina hernandez Result [facility] documented in this encounter Visit Diagnoses Diagnosis H/O mechanical aortic valve replacement 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
--- OUTSIDE RECORDS SUMMARY | 2024-04-01 07:55 | XMS_ITS | Encounter Summary ---
Author Organization [facility] Medical [facility] Address [address] [facility] [address] [place] [address] Care Team Providers Care Sampler First Name Role Phone Unavailable Primary Care Provider Unavailabl e Encounter Details Date Type Department Care Team (Late st Contact Info) Description 01/10/2017 Orders Only [facility] [address] [facility] [address] [address] Bindu Gaines MD [address] [facility] 102 [place] [address] Social History Tobacco Use Types Packs/Day Years Used Date Smoking Tobacco: Never Smokeless Tobacco: Never Alcohol Use Standard Drinks/Week Comments Yes 1 (1 standard drink = 0.6 oz pur e alcohol) Comments Unknown Sex and Gender Information Value Date Recorded Sex Assigned at Not on file Legal Sex Female 8:13 AM SENIOR DEVOPS ENGINEER Gender Identity Female 06/01/2020 9:42 PM SENIOR DEVOPS ENGINEER Sexual Orientation Straight 06/01/2020 9: 42 PM SENIOR DEVOPS ENGINEER documented as of this encounter Plan of Treatment Not on file documented as of this encounter Procedures Procedure Name Priority Date/Time Associated Diagnosis Comments PROTIME-INR Routine 01/10/2017 7:19 AM CDT documented in this encounter Results * (ABNORMAL) Protime-INR (01/10/2017 7:19 AM CDT) INR 3.0(H) [facility] [place] Comment: Reference Range ? 0.9-1.1 Moderate-intensity Warfarin Therapy 2.0-3.0 Higher-intensity Warfarin Therapy ?? 3.0-4.0 PT 31.5(H) 9.0 - 11.5 sec [facility] Comment: For more information on this test, go to: http://education.mig33/faq/CHT445 ? Your request to have a duplicate copy faxed has been acknowledged. ?Queued to: ??[id number] 01/10/2017 7:19 AM CDT 01/10/2017 7:19 AM CDT Narrative [facility] - 01/11/2017 7:38 AM CDT FASTING:NO Resulting Agency Comment Performing Organization Information: ?Site ID: [place] ?Name: [facility] ?[facility] [address] [facility] [address] [address] ?Director: Sal Jason D.O., MPH us Bindu Gaines MD LAB BLOOD ORDERABLES Final Result [facility] documented in this encounter Visit Diagnoses Not on filedocumented in this encounter
--- OUTSIDE RECORDS SUMMARY | 2024-04-01 07:55 | XMS_ITS | Encounter Summary ---
Author Organization [facility] Address [address] [facility] [address] [place] [address] Care Team Providers Care Cadd Operator Name Role Phone Unavailable Primary Care Provider Unavailabl e Encounter Details Date Type Department Care Team (Late st Contact Info) Description 01/07/2017 Telephone [facility] [address] [facility] [address] [place] [address] Bindu Gaines MD [address] [facility] 102 [place] [address] Social History Tobacco Use Types Packs/Day Years Used Date Smoking Tobacco: Never Smokeless Tobacco: Never Alcohol Use Standard Drinks/Week Comments Yes 1 (1 standard drink = 0.6 oz pur e alcohol) Comments Unknown Sex and Gender Information Value Date Recorded Sex Assigned at Not on file Legal Sex Female 8:13 AM GROUP THERAPY COUNSELOR Gender Identity Female 06/01/2020 9:42 PM GROUP THERAPY COUNSELOR Sexual Orientation Straight 06/01/2020 9: 42 PM GROUP THERAPY COUNSELOR documented as of this encounter Miscellaneous Notes * Telephone Encounter - Marialuisa Fagan RN - 01/07/2017 11:53 AM CDT Spoke to pt; States she saw her pcp yesterday for URI; She was given Amoxicillin for 10 days; She started this yesterday; Advised pt to get INR since she goes to [facility] to ensure we have results prior to the weekend; She voiced understanding. documented in this encounter Plan of Treatment Not on file documented as of this encounter Visit Diagnoses Not on filedocumented in this encounter
--- OUTSIDE RECORDS SUMMARY | 2024-04-01 07:55 | XMS_ITS | Encounter Summary ---
Author Organization [facility] Address [address] [facility] [address] [place] [address] Care Team Providers Care Bilingual School Psychologist Name Role Phone Unavailable Primary Care Provider Unavailabl e Encounter Details Date Type Department Care Team (Latest Contact Info) Description 02/05/2017 Anticoagulation Visit [facility] [address] [facility] [address], [place] [address] Bindu Gaines MD [address] [facility] 102 [place] [address] H/O mechanical aortic valve replacement; intermediate current use of anticoagulant therapy Social History Tobacco Use Types Packs/Day Years Used Date Smoking Tobacco: Never Smokeless Tobacco: Never Alcohol Use Standard Drinks/Week Comments Yes 1 (1 standard drink = 0.6 oz pur e alcohol) Comments Unknown Sex and Gender Information Value Date Recorded Sex Assigned at Not on file Legal Sex Female 8:13 AM CRAB STEAMER Gender Identity Female 06/01/2020 9:42 PM CRAB STEAMER Sexual Orientation Straight 06/01/2020 9: 42 PM CRAB STEAMER documented as of this encounter Plan of Treatment Not on file documented as of this encounter Procedures Procedure Name Priority Date/Time Associated Diagnosis Comments PROTIME-INR Routine 02/03/2017 1:25 PM CDT documented in this encounter Results * (ABNORMAL) Protime-INR (02/03/2017 1:25 PM CDT) INR 3.10(A) 0.9 - 1.1 [facility] Blood specimen (specimen) us Historical Provider LAB BLOOD ORDERABLES Antonina hernandez Result [facility] documented in this encounter Visit Diagnoses Diagnosis H/O mechanical aortic valve replacement intermediate current 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
--- OUTSIDE RECORDS SUMMARY | 2024-04-01 07:55 | XMS_ITS | Encounter Summary ---
Author Organization [facility] Address [address] [facility] [address] [place] [address] Care Team Providers Care Rotary Engine Assembler Name Role Phone Unavailable Primary Care Provider Unavailabl e Encounter Details Date Type Department Care Team (Latest Contact Info) Description 02/25/2017 Anticoagulation Visit [facility] [address] [place] [address] Bindu Gaines MD [address] [place] [address] H/O mechanical aortic valve replacement; [facility] current use of anticoagulant therapy Social History Tobacco Use Types Packs/Day Years Used Date Smoking Tobacco: Never Smokeless Tobacco: Never Alcohol Use Standard Drinks/Week Comments Yes 1 (1 standard drink = 0.6 oz pur e alcohol) Comments Unknown Sex and Gender Information Value Date Recorded Sex Assigned at Not on file Legal Sex Female 8:13 AM SPECIAL PROGRAMS DIRECTOR Gender Identity Female 06/01/2020 9:42 PM SPECIAL PROGRAMS DIRECTOR Sexual Orientation Straight 06/01/2020 9: 42 PM SPECIAL PROGRAMS DIRECTOR documented as of this encounter Plan of Treatment Not on file documented as of this encounter Procedures Procedure Name Priority Date/Time Associated Diagnosis Comments PROTIME-INR Routine 02/24/2017 4:02 PM SPECIAL PROGRAMS DIRECTOR documented in this encounter Results * (ABNORMAL) Protime-INR (02/24/2017 4:02 PM SPECIAL PROGRAMS DIRECTOR) INR 2.20(A) 0.9 - 1.1 [facility] Blood specimen (specimen) us Historical Provider LAB BLOOD ORDERABLES Antonina hernandez Result [facility] documented in this encounter Visit Diagnoses Diagnosis H/O mechanical aortic valve replacement 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
--- OUTSIDE RECORDS SUMMARY | 2024-04-01 07:55 | XMS_ITS | Encounter Summary ---
Author Organization [facility] Medical Group Address [address] [facility] [address] [place] [address] Care Team Providers Care Photonics Engineering Technologist Name Role Phone Unavailable Primary Care Provider Unavailabl e Encounter Details Date Type Department Care Team (Late st Contact Info) Description 01/06/2017 Orders Only [facility] [address] [facility] [address], [place] [address] Bindu Gaines MD [address] [facility] 102 [place] [address] Social History Tobacco Use Types Packs/Day Years Used Date Smoking Tobacco: Never Smokeless Tobacco: Never Alcohol Use Standard Drinks/Week Comments Yes 1 (1 standard drink = 0.6 oz pur e alcohol) Comments Unknown Sex and Gender Information Value Date Recorded Sex Assigned at Not on file Legal Sex Female 8:13 AM SANITATION INSPECTOR Gender Identity Female 06/01/2020 9:42 PM SANITATION INSPECTOR Sexual Orientation Straight 06/01/2020 9: 42 PM SANITATION INSPECTOR documented as of this encounter Plan of Treatment Not on file documented as of this encounter Procedures Procedure Name Priority Date/Time Associated Diagnosis Comments PROTIME-INR Routine 01/06/2017 8:26 AM CDT documented in this encounter Results * (ABNORMAL) Protime-INR (01/06/2017 8:26 AM CDT) INR 3.0(H) [facility] [place] Comment: Reference Range ? 0.9-1.1 Moderate-intensity Warfarin Therapy 2.0-3.0 Higher-intensity Warfarin Therapy ?? 3.0-4.0 PT 30.5(H) 9.0 - 11.5 sec [facility] [place] Comment: For more information on this test, go to: http://education.The History Press/faq/TIK206 ? Your request to have a duplicate copy faxed has been acknowledged. ?Queued to: ??[id number] 01/06/2017 8:26 AM CDT 01/06/2017 8:26 AM CDT Narrative Resulting Agency Comment Performing Organization Information: ?Site ID: ?Name[email or web address] ?Address: [facility] [place] [address] ?Director: Adilson Hameed MD us Bindu Gaines MD LAB BLOOD ORDERABLES Final Result [facility] [place] Dhillon documented in this encounter Visit Diagnoses Not on filedocumented in this encounter
--- OUTSIDE RECORDS SUMMARY | 2024-04-01 07:55 | XMS_ITS | Encounter Summary ---
Author Organization [facility] Address [address] [facility] [address] [place] [address] Care Team Providers Care Tube Builder Name Role Phone Unavailable Primary Care Provider Unavailabl e Encounter Details Date Type Department Care Team (Latest Contact Info) Description 01/07/2017 Anticoagulation Visit [facility] [address] [place] [address] Bindu Gaines MD [address] [place] [address] H/O mechanical aortic valve replacement; retirement current use of anticoagulant therapy Social History Tobacco Use Types Packs/Day Years Used Date Smoking Tobacco: Never Smokeless Tobacco: Never Alcohol Use Standard Drinks/Week Comments Yes 1 (1 standard drink = 0.6 oz pur e alcohol) Comments Unknown Sex and Gender Information Value Date Recorded Sex Assigned at Not on file Legal Sex Female 8:13 AM RESEARCH CLERK Gender Identity Female 06/01/2020 9:42 PM RESEARCH CLERK Sexual Orientation Straight 06/01/2020 9: 42 PM RESEARCH CLERK documented as of this encounter Plan of Treatment Not on file documented as of this encounter Procedures Procedure Name Priority Date/Time Associated Diagnosis Comments PROTIME-INR Routine 01/06/2017 10:17 AM CDT documented in this encounter Results * (ABNORMAL) Protime-INR (01/06/2017 10:17 AM CDT) INR 3.00(A) 0.9 - 1.1 [facility] Blood specimen (specimen) us Historical Provider LAB BLOOD ORDERABLES Antonina hernandez Result [facility] documented in this encounter Visit Diagnoses Diagnosis H/O mechanical aortic valve replacement 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
--- OUTSIDE RECORDS SUMMARY | 2024-04-01 07:55 | XMS_ITS | Encounter Summary ---
Author Organization [facility] Address [address] [facility] [address] [place] [address] Care Team Providers Care Collection Systems Technician Name Role Phone Unavailable Primary Care Provider Unavailabl e Encounter Details Date Type Department Care Team (Late st Contact Info) Description 02/24/2017 Telephone [facility] [address] [place] [address] Bindu Gaines MD [address] [facility] [address] [place] [address] Social History Tobacco Use Types Packs/Day Years Used Date Smoking Tobacco: Never Smokeless Tobacco: Never Alcohol Use Standard Drinks/Week Comments Yes 1 (1 standard drink = 0.6 oz pur e alcohol) Comments Unknown Sex and Gender Information Value Date Recorded Sex Assigned at Not on file Legal Sex Female 8:13 AM DIRECTOR OF CLINICAL TRIALS Gender Identity Female 06/01/2020 9:42 PM DIRECTOR OF CLINICAL TRIALS Sexual Orientation Straight 06/01/2020 9: 42 PM DIRECTOR OF CLINICAL TRIALS documented as of this encounter Miscellaneous Notes * Telephone Encounter - Marialuisa Fagan RN - 02/24/2017 2:44 PM DIRECTOR OF CLINICAL TRIALS Faxed standing order per request CTOR OF CLINICAL TRIALS documented in this encounter Plan of Treatment Not on file documented as of this encounter Visit Diagnoses Not on filedocumented in this encounter
--- OUTSIDE RECORDS SUMMARY | 2024-04-01 07:55 | XMS_ITS | Encounter Summary ---
Author Organization [facility] Address [address] [facility] [address] [place] [address] Care Team Providers Care Shipping And Receiving Material Handler Name Role Phone Unavailable Primary Care Provider Unavailabl e Encounter Details Date Type Department Care Team (Late st Contact Info) Description 01/12/2017 Telephone [facility] [address] [facility] [address], [place] [address] Bindu Gaines MD [address] [facility] 102 [place] [address] Social History Tobacco Use Types Packs/Day Years Used Date Smoking Tobacco: Never Smokeless Tobacco: Never Alcohol Use Standard Drinks/Week Comments Yes 1 (1 standard drink = 0.6 oz pur e alcohol) Comments Unknown Sex and Gender Information Value Date Recorded Sex Assigned at Not on file Legal Sex Female 8:13 AM GEAR GRINDING MACHINE OPERATOR Gender Identity Female 06/01/2020 9:42 PM GEAR GRINDING MACHINE OPERATOR Sexual Orientation Straight 06/01/2020 9: 42 PM GEAR GRINDING MACHINE OPERATOR documented as of this encounter Miscellaneous Notes * Telephone Encounter - Almaz Presley - 05/07/2017 1:20 PM CST . GRINDING MACHINE OPERATOR documented in this encounter Plan of Treatment Not on file documented as of this encounter Visit Diagnoses Not on filedocumented in this encounter
--- OUTSIDE RECORDS SUMMARY | 2024-04-01 07:55 | XMS_ITS | Encounter Summary ---
Author Organization [facility] Address [address] [facility] [facility] [address] [place] [address] Care Team Providers Care Inventory Specialist Name Role Phone Unavailable Primary Care Provider Unavailabl e Encounter Details Date Type Department Care Team (Late st Contact Info) Description 02/03/2017 Orders Only [facility] [address] [facility] [address] [address] Bindu Gaines MD [address] [facility] 102 [place] [address] Social History Tobacco Use Types Packs/Day Years Used Date Smoking Tobacco: Never Smokeless Tobacco: Never Alcohol Use Standard Drinks/Week Comments Yes 1 (1 standard drink = 0.6 oz pur e alcohol) Comments Unknown Sex and Gender Information Value Date Recorded Sex Assigned at Not on file Legal Sex Female 8:13 AM PRODUCT INSPECTION COORDINATOR Gender Identity Female 06/01/2020 9:42 PM PRODUCT INSPECTION COORDINATOR Sexual Orientation Straight 06/01/2020 9: 42 PM PRODUCT INSPECTION COORDINATOR documented as of this encounter Plan of Treatment Not on file documented as of this encounter Procedures Procedure Name Priority Date/Time Associated Diagnosis Comments PROTIME-INR Routine 02/03/2017 8:05 AM CDT documented in this encounter Results * (ABNORMAL) Protime-INR (02/03/2017 8:05 AM CDT) INR 3.1(H) [facility] [place] Comment: Reference Range ? 0.9-1.1 Moderate-intensity Warfarin Therapy 2.0-3.0 Higher-intensity Warfarin Therapy ?? 3.0-4.0 PT 31.4(H) 9.0 - 11.5 sec [facility] Comment: For more information on this test, go to: http://education.[employer]/faq/NTF466 ? Your request to have a duplicate copy faxed has been acknowledged. ?Queued to: ??[id number] 02/03/2017 8:05 AM CDT 02/03/2017 8:06 AM CDT Narrative Resulting Agency Comment Performing Organization Information: ?Site ID: ?Name: [facility] ?Address: [address] [id number] ?Director: Adilson Hameed MD us Bindu Gaines MD LAB BLOOD ORDERABLES Final Result [facility] [place] Dhillon documented in this encounter Visit Diagnoses Not on filedocumented in this encounter
--- OUTSIDE RECORDS SUMMARY | 2024-04-01 07:55 | XMS_ITS | Encounter Summary ---
Author Organization [facility] Address [address] [facility] [address] [place] [address] Care Team Providers Care Waiter/Waitress Cafeteria Name Role Phone Unavailable Primary Care Provider Unavailabl e Encounter Details Date Type Department Care Team (Late st Contact Info) Description 12/04/2016 Orders Only [facility] [address] [facility] [address] [address] Bindu Gaines MD [address] [facility] 102 [place] [address] Social History Tobacco Use Types Packs/Day Years Used Date Smoking Tobacco: Never Smokeless Tobacco: Never Alcohol Use Standard Drinks/Week Comments Yes 1 (1 standard drink = 0.6 oz pur e alcohol) Comments Unknown Sex and Gender Information Value Date Recorded Sex Assigned at Not on file Legal Sex Female 8:13 AM OIL EXPERT Gender Identity Female 06/01/2020 9:42 PM OIL EXPERT Sexual Orientation Straight 06/01/2020 9: 42 PM OIL EXPERT documented as of this encounter Plan of Treatment Not on file documented as of this encounter Procedures Procedure Name Priority Date/Time Associated Diagnosis Comments PROTIME-INR Routine 12/04/2016 4:10 PM CDT documented in this encounter Results * (ABNORMAL) Protime-INR (12/04/2016 4:10 PM CDT) INR 2.1(H) [facility] [place] Comment: Reference Range ? 0.9-1.1 Moderate-intensity Warfarin Therapy 2.0-3.0 Higher-intensity Warfarin Therapy ?? 3.0-4.0 PT 22.6(H) 9.0 - 11.5 sec [facility] [place] Comment: For more information on this test, go to: http://education.[employer]/faq/DJC916 ? Your request to have a duplicate copy faxed has been acknowledged. ?Queued to: ??[id number] 12/04/2016 4:10 PM CDT 12/04/2016 4:10 PM CDT Narrative Resulting Agency Comment Performing Organization Information: ?Site ID: [place] ?Name: [facility] ?Address: [address] [place] [address] [place] [address] ?Director: Sal Jason D.O., MPH us Bindu Gaines MD LAB BLOOD ORDERABLES Final Result [facility] [place] documented in this encounter Visit Diagnoses Not on filedocumented in this encounter
--- OUTSIDE RECORDS SUMMARY | 2024-04-01 07:55 | XMS_ITS | Encounter Summary ---
Author Organization [facility] Address [address] [facility] [address] [place] [address] Care Team Providers Care Extruding Press Operator Name Role Phone Unavailable Primary Care Provider Unavailabl e Encounter Details Date Type Department Care Team (Latest Contact Info) Description 01/12/2017 Anticoagulation Visit [facility] [address] [place] [address] Bindu Gaines MD [address] [place] [address] [place] [address] H/O mechanical aortic valve replacement; long-term current use of anticoagulant therapy Social History Tobacco Use Types Packs/Day Years Used Date Smoking Tobacco: Never Smokeless Tobacco: Never Alcohol Use Standard Drinks/Week Comments Yes 1 (1 standard drink = 0.6 oz pur e alcohol) Comments Unknown Sex and Gender Information Value Date Recorded Sex Assigned at Not on file Legal Sex Female 8:13 AM HOURLY CAREGIVER Gender Identity Female 06/01/2020 9:42 PM HOURLY CAREGIVER Sexual Orientation Straight 06/01/2020 9: 42 PM HOURLY CAREGIVER documented as of this encounter Plan of Treatment Not on file documented as of this encounter Procedures Procedure Name Priority Date/Time Associated Diagnosis Comments PROTIME-INR Routine 01/10/2017 10:00 AM CDT documented in this encounter Results * (ABNORMAL) Protime-INR (01/10/2017 10:00 AM CDT) INR 3.00(A) 0.9 - 1.1 [facility] Blood specimen (specimen) us Historical Provider LAB BLOOD ORDERABLES Antonina hernandez Result [facility] documented in this encounter Visit Diagnoses Diagnosis H/O mechanical aortic valve replacement 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
--- OUTSIDE RECORDS SUMMARY | 2024-04-01 07:55 | XMS_ITS | Encounter Summary ---
Author Organization [facility] Address [address] [facility] [address] [place] [address] Care Team Providers Care Dairy And Food Laboratory Assistant Name Role Phone Unavailable Primary Care Provider Unavailabl e Encounter Details Date Type Department Care Team (Latest Contact Info) Description 03/10/2017 Anticoagulation Visit [facility] [address] [place] [address] Bindu Gaines MD [address] [place] [address] [place] [address] H/O mechanical aortic valve replacement; senior living current use of anticoagulant therapy Social History Tobacco Use Types Packs/Day Years Used Date Smoking Tobacco: Never Smokeless Tobacco: Never Alcohol Use Standard Drinks/Week Comments Yes 1 (1 standard drink = 0.6 oz pur e alcohol) Comments Unknown Sex and Gender Information Value Date Recorded Sex Assigned at Not on file Legal Sex Female 8:13 AM RAIMANN MACHINE OPERATOR Gender Identity Female 06/01/2020 9:42 PM RAIMANN MACHINE OPERATOR Sexual Orientation Straight 06/01/2020 9: 42 PM RAIMANN MACHINE OPERATOR documented as of this encounter Plan of Treatment Not on file documented as of this encounter Procedures Procedure Name Priority Date/Time Associated Diagnosis Comments PROTIME-INR Routine 03/10/2017 10:57 AM RAIMANN MACHINE OPERATOR documented in this encounter Results * (ABNORMAL) Protime-INR (03/10/2017 10:57 AM RAIMANN MACHINE OPERATOR) INR 2.90(A) 0.9 - 1.1 [facility] Blood specimen (specimen) us Historical Provider LAB BLOOD ORDERABLES Antonina hernandez Result [facility] documented in this encounter Visit Diagnoses Diagnosis H/O mechanical aortic valve replacement 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
--- OUTSIDE RECORDS SUMMARY | 2024-04-01 07:55 | XMS_ITS | Encounter Summary ---
Author Organization [facility] Address [address] [facility] [address] [place] [address] Care Team Providers Care Wool Mixer Name Role Phone Unavailable Primary Care Provider Unavailabl e Encounter Details Date Type Department Care Team (Latest Contact Info) Description 12/17/2016 Anticoagulation Visit [facility] [address] [place] [address] Bindu Gaines MD [address] [place] [address] [place] [address] H/O mechanical aortic valve replacement; longterm current use of anticoagulant therapy Social History Tobacco Use Types Packs/Day Years Used Date Smoking Tobacco: Never Smokeless Tobacco: Never Alcohol Use Standard Drinks/Week Comments Yes 1 (1 standard drink = 0.6 oz pur e alcohol) Comments Unknown Sex and Gender Information Value Date Recorded Sex Assigned at Not on file Legal Sex Female 8:13 AM LASTING FLOORWORKER Gender Identity Female 06/01/2020 9:42 PM LASTING FLOORWORKER Sexual Orientation Straight 06/01/2020 9: 42 PM LASTING FLOORWORKER documented as of this encounter Plan of Treatment Not on file documented as of this encounter Procedures Procedure Name Priority Date/Time Associated Diagnosis Comments PROTIME-INR Routine 12/16/2016 10:35 AM CDT documented in this encounter Results * (ABNORMAL) Protime-INR (12/16/2016 10:35 AM CDT) INR 3.20(A) 0.9 - 1.1 [facility] Blood specimen (specimen) us Historical Provider LAB BLOOD ORDERABLES Antonina hernandez Result [facility] documented in this encounter Visit Diagnoses Diagnosis H/O mechanical aortic valve replacement 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
--- OUTSIDE RECORDS SUMMARY | 2024-04-01 07:55 | XMS_ITS | Encounter Summary ---
Author Organization [facility] Address [address] [facility] [address] [place] [address] Care Team Providers Care Java Web Developer Name Role Phone Unavailable Primary Care Provider Unavailabl e Encounter Details Date Type Department Care Team (Late st Contact Info) Description 01/09/2017 Telephone [facility] [address] [facility] [address] [facility] 102 [place] [address] Bindu Gaines MD [address] [facility] 102 [place], [place] [address] Social History Tobacco Use Types Packs/Day Years Used Date Smoking Tobacco: Never Smokeless Tobacco: Never Alcohol Use Standard Drinks/Week Comments Yes 1 (1 standard drink = 0.6 oz pur e alcohol) Comments Unknown Sex and Gender Information Value Date Recorded Sex Assigned at Not on file Legal Sex Female 8:13 AM BOAT HOIST OPERATOR Gender Identity Female 06/01/2020 9:42 PM BOAT HOIST OPERATOR Sexual Orientation Straight 06/01/2020 9: 42 PM BOAT HOIST OPERATOR documented as of this encounter Miscellaneous Notes * Telephone Encounter - Edelmira Ware RN - 01/09/2017 9:54 AM CDT I called the patient. She was supposed to get an INR yesterday but couldn't go because of her work situation. She can't go today either. She will go on Thursday and then call our office Thursday. I advised eating some greens this weekend just in case she is on the thinner side. She agrees. documented in this encounter Plan of Treatment Not on file documented as of this encounter Visit Diagnoses Not on filedocumented in this encounter
--- OUTSIDE RECORDS SUMMARY | 2024-04-01 07:56 | XMS_ITS | Encounter Summary ---
Author Organization [facility] Care Team Providers Care Upholstery Department Supervisor Name Role Phone Unavailable Primary Care Provider Unavailabl e Encounter Details Date Type Department Care Team (Latest Contact Info) Description 02/03/2011 - 02/03/2011 11:59 PM CDT Hospital Encounter [facility] Venessa, [place] [address] [place] [address] Osteoarthrosis involving lower leg Social History Tobacco Use Types Packs/Day Years Used Date Smoking Tobacco: Never Assessed Comments Unknown Sex and Gender Information Value Date Recorded Sex Assigned at Not on file Legal Sex Female 8:13 AM STONE AND PLATE PREPARER APPRENTICE Gender Identity Female 06/01/2020 9:42 PM STONE AND PLATE PREPARER APPRENTICE Sexual Orientation Straight 06/01/2020 9: 42 PM STONE AND PLATE PREPARER APPRENTICE documented as of this encounter Medications at Time of Discharge aspirin 81 mg tablet Take one by mouth one time per day 0 0 12/04/2008 08/06/2023 warfarin (COUMADIN) 1 mg tablet Take as directed 30 6 12/04/2008 11/17/2018 warfarin (COUMADIN) 5 mg tablet TAKE ONE TABLET BY MOUTH ONCE [facility] 45 1 01/14/2010 10/20/2016 documented as of this encounter Plan of Treatment Not on file documented as of this encounter Visit Diagnoses Diagnosis Osteoarthrosis involving lower leg documented in this encounter
--- OUTSIDE RECORDS SUMMARY | 2024-04-01 07:56 | XMS_ITS | Encounter Summary ---
Author Organization [facility] Address [address] [facility] [address] [place] [address] Care Team Providers Care Cottrell Operator Name Role Phone Unavailable Primary Care Provider Unavailabl e Encounter Details Date Type Department Care Team (Late st Contact Info) Description 09/13/2016 Orders Only [facility] [address] [facility] [address], [place] [address] Bindu Gaines MD [address] [facility] 102 [place] [address] Social History Tobacco Use Types Packs/Day Years Used Date Smoking Tobacco: Never Assessed Alcohol Use Standard Drinks/Week Comments Yes 0 (1 standard drink = 0.6 oz pur e alcohol) Comments Unknown Sex and Gender Information Value Date Recorded Sex Assigned at Not on file Legal Sex Female 8:13 AM AUGER SUPERVISOR Gender Identity Female 06/01/2020 9:42 PM AUGER SUPERVISOR Sexual Orientation Straight 06/01/2020 9: 42 PM AUGER SUPERVISOR documented as of this encounter Plan of Treatment Not on file documented as of this encounter Procedures Procedure Name Priority Date/Time Associated Diagnosis Comments PROTIME-INR Routine 09/13/2016 9:12 AM CDT documented in this encounter Results * (ABNORMAL) Protime-INR (09/13/2016 9:12 AM CDT) INR 3.3(H) [facility] [place] Comment: Reference Range ? 0.9-1.1 Moderate-intensity Warfarin Therapy 2.0-3.0 Higher-intensity Warfarin Therapy ?? 3.0-4.0 PT 35.0(H) 9.0 - 11.5 sec [facility] [place] Comment: For more information on this test, go to: http://education.[employer]/faq/EQZ890 ? Your request to have a duplicate copy faxed has been acknowledged. ?Queued to: ??[id number] 09/13/2016 9:12 AM CDT 09/13/2016 9:12 AM CDT Narrative Resulting Agency Comment Performing Organization Information: ?Site ID: [place] ?Name: [facility] ?Address: [address] [place] [address] [place] [id number] ?Director: Sal Jason D.O., MPH us Bindu Gaines MD LAB BLOOD ORDERABLES Final Result [facility] [place] Jean documented in this encounter Visit Diagnoses Not on filedocumented in this encounter
--- OUTSIDE RECORDS SUMMARY | 2024-04-01 07:56 | XMS_ITS | Encounter Summary ---
Author Organization [facility] Address [address] [facility] [facility] [address] [place] [address] Care Team Providers Care Wholesale Diamond Broker Name Role Phone Unavailable Primary Care Provider Unavailabl e Reason for Visit * Reason Comments Valve Disorder annual f/u Encounter Details Date Type Department Care Team (Latest Contact Info) Description 10/21/2016 9:00 AM CDT Office Visit [facility] [address] [facility] [address] [facility] [address] [place] [address] Bindu Gaines MD [address] [facility] [address] [place] [address] H/O mechanical aortic valve replacement (Primary Dx); Hypercholesteremia; S/P aortic valve replacement with bioprosthetic valve; History of anticoagulant therapy; Hypercholesterolemia; Bicuspid aortic valve; Multiple-type hyperlipidemia; 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 use of anticoagulant therapy Social History Tobacco Use Types Packs/Day Years Used Date Smoking Tobacco: Never Smokeless Tobacco: Never Alcohol Use Standard Drinks/Week Comments Yes 1 (1 standard drink = 0.6 oz pur e alcohol) Comments Unknown Sex and Gender Information Value Date Recorded Sex Assigned at Not on file Legal Sex Female 8:13 AM COW WASHER Gender Identity Female 06/01/2020 9:42 PM COW WASHER Sexual Orientation Straight 06/01/2020 9: 42 PM COW WASHER documented as of this encounter Last Filed Vital Signs Vital Sign Reading Time Taken Comments Blood Pressure 110/64 10/21/2016 8:59 AM CDT Pulse 90 10/21/2016 8:59 AM CDT Temperature - - Respiratory Rate - - Oxygen Saturation 97% 10/21/2016 8:59 AM CDT Inhaled Oxygen Concentration - - Weight 57.2 kg (126 lb) 10/21/2016 8:59 AM CDT Height 160 cm (5' 3 ) 10/21/2016 8:59 AM CDT Body Mass Index 22.32 10/21/2016 8:59 AM CDT documented in this encounter Ordered Prescriptions Prescription Sig Dispense Quantity Refills Last Filled Start Date End Date celecoxib (CeleBREX) 200 mg capsule Take 1 capsule (200 mg total) by mouth daily. 30 capsule 10/21/2016 9 documented in this encounter Progress Notes * Bindu Gaines MD - 10/21/2016 9:00 AM CDT Subjective/Objective Patient ID: Yessy Donaldson is a 61 y.o. female. 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 Guthrie in 2008. She is chronically anticoagulated. She is aware of need for SBE antibiotic prophylaxis prior to dental work and nonsterile procedures. ECHO 2014 good LV fxn, EF 63%, LYNSEY 1.2 cm2, mean grad 13 mmHg. She also has mild asthma. The patient was last seen in August 2015 doing well. She continues to be active, with no particular problems with chest pain or TRINH. Fitness class and water aerobics have fallen away after disabled son moved back home and broke his leg. No problems with anticoagulation; no bleeding. Cholest 221. Developed some mild hearing loss and tinnitus.. Has arthritis pain; Celebrex helps. 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 Her son in mid-30's is also severely disabled, and moved into a senior care but it didn't work out and now is back home. Her mother, with whom she was not close, April 2012, and her uncle also around that same time. Current Outpatient Prescriptions: ??? albuterol HFA (PROAIR HFA) 90 mcg/actuation inhaler, inhale 2 puff by inhalation route every 4 - 6 hours as needed, Disp: , Rfl: 0 ??? aspirin 81 mg tablet, Take one by mouth one time per day, Disp: 0, Rfl: 0 ??? famotidine (PEPCID) 20 mg tablet, take 1 tablet by ORAL route every day, Disp: 0, Rfl: 0 ??? multivitamin tablet tablet, Take 1 tablet by mouth daily., Disp: , Rfl: ??? warfarin (COUMADIN) 1 mg tablet, Take as directed, Disp: 30, Rfl: 6 ??? warfarin (COUMADIN) 5 mg tablet, TAKE 1 TABLET BY MOUTH EVERY DAY, Disp: 45 tablet, Rfl: 1 ??? celecoxib (CeleBREX) 200 mg capsule, Take 1 capsule (200 mg total) by mouth daily., Disp: 30 capsule, Rfl: 0 HPI: VALVULAR: 1 Severe , Bicuspid Aortic Valve [ECHO EF 70%, LVH, mod , pk carmen 3.6, pk grad 52, mean 29.] - 2006 2 Severe [ECHO EF 71%, LVH, diast. dysfxn, LYNSEY 0.5-0.6 cm2, mild AI peak grad 63, mean grad 37 mmHg.] - 06/2008 3 AVR [19 mm Bellaire valve, Dr. Guthrie] - 10/2008 4 01/19: ECHO EF 63%, LYNSEY 1.0-1.1 cm2, mean grad 8 mmHg - 01/2009 5 ECHO EF 63%, LYNSEY 1.2 cm2, mean grad 11 - 09/14/2014 Past Medical History: Diagnosis Date ??? Asthma Asthma ??? Eczema eczema ??? HX OTHER MEDICAL diverticulosis Social History Social History ??? Marital status: Spouse name: N/A ??? Number of children: N/A ??? Years of education: N/A Occupational History ??? Not on file. Social History Main Topics ??? Smoking status: Never Smoker ??? Smokeless tobacco: Never Used ??? Alcohol use 0.6 - 1.2 oz/week 1 - 2 Glasses of wine per week ??? Drug use: No ??? Sexual activity: Not on file Other Topics Concern ??? 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 Agrees to blood/blood products: Y Family History Problem Relation Age of Onset ??? Other Father [place] age 50, CABG; ??? Other Sister MVP; ??? Other Mother H/O CVA, 2012; Review of Systems Constitution: Negative for malaise/fatigue. HENT: Positive for hearing loss. Negative for congestion. Eyes: Negative for visual disturbance. Cardiovascular: Negative for chest pain, dyspnea on exertion and syncope. Respiratory: Negative for shortness of breath. Hematologic/Lymphatic: Bruises/bleeds easily. Skin: Positive for rash (eczema). Gastrointestinal: Positive for heartburn. Negative for abdominal pain. Genitourinary: Negative for hematuria. Neurological: Negative for dizziness. Psychiatric/Behavioral: Negative for depression. BP 110/64 (BP Location: Right arm, Patient Position: Sitting) Pulse 90 Ht 160 cm (5' 3 ) Wt 57.2 kg (126 lb) SpO2 97% BMI 22.32 kg/m?? Physical Exam Constitutional: She is oriented to person, place, and time. She appears well- developed and well-nourished. HENT: Mouth/Throat: Normal dentition. Neck: Carotid bruit is not present. No thyromegaly present. Cardiovascular: Normal rate, regular rhythm and normal heart sounds. No murmur heard. Pulses: Carotid pulses are 2+ on the right side, and 2+ on the left side. Dorsalis pedis pulses are 2+ on the right side, and 2+ on the left side. Alpine valve click Pulmonary/Chest: Effort normal and breath sounds normal. No respiratory distress. Abdominal: Soft. She exhibits no distension. Musculoskeletal: She exhibits no edema. Neurological: She is alert and oriented to person, place, and time. Skin: Skin is warm and dry. Assessment/Plan Diagnoses and all orders for this visit: 1. H/O mechanical aortic valve replacement (Primary) 2. Hypercholesteremia - Lipid panel POC (performed in office) 3. S/P aortic valve replacement with bioprosthetic valve 4. History of anticoagulant therapy 5. Hypercholesterolemia 6. Bicuspid aortic valve 7. Multiple-type hyperlipidemia 8. 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 Assessment: Patient is doing well 8 years after her mechanical mitral valve replacement for severe and a bicuspid aortic valve. Has not had any involvement of her ascending aorta. Compliant with INR follow-up; last INR last week was 3.7, warfarin adjusted. Compliant with SBE prophylaxis. Does have a family history of CAD but no signs or symptoms of CAD herself. Plan: 1. POC lipid panel: Total cholesterol 230, HDL 67, TG 179, LDL 128, glucose 123, nonfasting. The LDL cholesterol has decreased compared to last visit . 2. Continue with [facility] 3. Patient had questions about the longevity of her mechanical aortic valve which we reviewed. 4. Encouraged exercise 5. Follow-up in 1 year; may order an echo after that visit. documented in this encounter Plan of Treatment Not on file documented as of this encounter Procedures Procedure Name Priority Date/Time Associated Diagnosis Comments POCT LIPID PANEL Routine 10/21/2016 9:21 AM CDT Hypercholesteremia documented in this encounter Results * Lipid panel POC (performed in office) (10/21/2016 9:21 AM CDT) Cholesterol, POC 230 mg/dL HDL, POC 67 mg/dL Triglycerides, POC 179 mg/dL LDL Cholesterol POC 128 mg/dL Chol/HDL Ratio, POC 3.5 Non-HDL Cholesterol, POC 164 mg/dL Cholesterol Total, POC 230 mg/dL Blood specimen (specimen) 10/21/2016 9:21 AM CDT Bindu Gaines MD POINT OF CARE TEST ORDERABL ES Final Result documented in this encounter Visit Diagnoses Diagnosis H/O mechanical aortic valve replacement- Primary Hypercholesteremia Pure hypercholesterolemia S/P aortic valve replacement with bioprosthetic valve History of anticoagulant therapy Hypercholesterolemia Pure hypercholesterolemia Bicuspid aortic valve Congenital insufficiency of aortic valve Multiple-type hyperlipidemia Other and unspecified hyperlipidemia 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 multivitamin tablet tabletIndications :Vitamin Deficiency Prevention Take 1 tablet by mouth daily. 11/15/2018 added in this encounter
--- OUTSIDE RECORDS SUMMARY | 2024-04-01 07:56 | XMS_ITS | Encounter Summary ---
Author Organization [facility] Facility Care Team Providers Care Technical Engineer Name Role Phone Unavailable Primary Care Provider Unavailabl e Encounter Details Date Type Department Care Team (Late st Contact Info) Description 08/08/2008 1:29 PM CDT - 08/08/2008 11:59 PM CDT Hospital Encounter [facility] Social History Tobacco Use Types Packs/Day Years Used Date Smoking Tobacco: Never Assessed Comments Unknown Sex and Gender Information Value Date Recorded Sex Assigned at Not on file Legal Sex Female 8:13 AM LPN RN Gender Identity Female 06/01/2020 9:42 PM LPN RN Sexual Orientation Straight 06/01/2020 9: 42 PM LPN RN documented as of this encounter Plan of Treatment Not on file documented as of this encounter Visit Diagnoses Not on filedocumented in this encounter
--- OUTSIDE RECORDS SUMMARY | 2024-04-01 07:56 | XMS_ITS | Encounter Summary ---
Author Organization [facility] Address [address] [place] [address] Care Team Providers Care Switch Technician Name Role Phone Unavailable Primary Care Provider Unavailabl e Reason for Visit * Reason Onset Date Comments medical question 09/24/2016 Encounter Details Date Type Department Care Team (Late st Contact Info) Description 09/24/2016 Telephone [facility] [address] [facility] [address] [email or web address] [address] [place] [address] Bindu Gaines MD [address] [facility] [address] [place], [place] [id number] medical question Social History Tobacco Use Types Packs/Day Years Used Date Smoking Tobacco: Never Assessed Alcohol Use Standard Drinks/Week Comments Yes 0 (1 standard drink = 0.6 oz pur e alcohol) Comments Unknown Sex and Gender Information Value Date Recorded Sex Assigned at Not on file Legal Sex Female 8:13 AM HOSPICE CONSULTANT Gender Identity Female 06/01/2020 9:42 PM HOSPICE CONSULTANT Sexual Orientation Straight 06/01/2020 9: 42 PM HOSPICE CONSULTANT documented as of this encounter Miscellaneous Notes * Telephone Encounter - Marialuisa Fagan RN - 09/24/2016 4:18 PM CDT Spoke to pt; State she will be on Clindamycin for 7-10 days; She will start today, advised pt to have INR drawn in 3-4 days; Pt will have done on Thursday; Made her aware she should be hearing from us Thursday to address dosage. documented in this encounter Plan of Treatment Not on file documented as of this encounter Visit Diagnoses Not on filedocumented in this encounter
--- OUTSIDE RECORDS SUMMARY | 2024-04-01 07:56 | XMS_ITS | Encounter Summary ---
Author Organization [facility] Address [address] [place] [address] Care Team Providers Care Appeals Analyst Name Role Phone Unavailable Primary Care Provider Unavailabl e Reason for Visit * Reason Onset Date Comments blood test results 10/01/2016 Encounter Details Date Type Department Care Team (Late st Contact Info) Description 10/01/2016 Telephone [facility] [address] [facility] [address] [facility] [address] [place] [phone] Bindu Gaines MD [address] [facility] [address] [place] [address] blood test results Social History Tobacco Use Types Packs/Day Years Used Date Smoking Tobacco: Never Assessed Alcohol Use Standard Drinks/Week Comments Yes 0 (1 standard drink = 0.6 oz pur e alcohol) Comments Unknown Sex and Gender Information Value Date Recorded Sex Assigned at Not on file Legal Sex Female 8:13 AM HALF SOLE FITTER Gender Identity Female 06/01/2020 9:42 PM HALF SOLE FITTER Sexual Orientation Straight 06/01/2020 9: 42 PM HALF SOLE FITTER documented as of this encounter Miscellaneous Notes * Telephone Encounter - Marialuisa Fagan RN - 10/01/2016 2:56 PM CDT Pt calling back regarding INR; will forward to [place] to address. documented in this encounter Plan of Treatment Not on file documented as of this encounter Visit Diagnoses Not on filedocumented in this encounter
--- OUTSIDE RECORDS SUMMARY | 2024-04-01 07:56 | XMS_ITS | Encounter Summary ---
Author Organization [facility] Address [address] [place] [address] Care Team Providers Care Area Mechanic Name Role Phone Unavailable Primary Care Provider Unavailabl e Encounter Details Date Type Department Care Team (Late st Contact Info) Description 10/07/2016 Orders Only [facility] [address] [facility] [address], [place] [address] Bindu Gaines MD [address] [facility] [address] [place] [address] Social History Tobacco Use Types Packs/Day Years Used Date Smoking Tobacco: Never Assessed Alcohol Use Standard Drinks/Week Comments Yes 0 (1 standard drink = 0.6 oz pur e alcohol) Comments Unknown Sex and Gender Information Value Date Recorded Sex Assigned at Not on file Legal Sex Female 8:13 AM ROLL HANDLER Gender Identity Female 06/01/2020 9:42 PM ROLL HANDLER Sexual Orientation Straight 06/01/2020 9: 42 PM ROLL HANDLER documented as of this encounter Plan of Treatment Not on file documented as of this encounter Procedures Procedure Name Priority Date/Time Associated Diagnosis Comments PROTIME-INR Routine 10/07/2016 7:25 AM CDT documented in this encounter Results * (ABNORMAL) Protime-INR (10/07/2016 7:25 AM CDT) INR 2.2(H) [facility] Comment: Reference Range ? 0.9-1.1 Moderate-intensity Warfarin Therapy 2.0-3.0 Higher-intensity Warfarin Therapy ?? 3.0-4.0 PT 22.1(H) 9.0 - 11.5 sec [facility] Comment: For more information on this test, go to: http://education.TabTale/faq/WOL694 ? Your request to have a duplicate copy faxed has been acknowledged. ?Queued to: ??[id number] 10/07/2016 7:25 AM CDT 10/07/2016 7:26 AM CDT Narrative Resulting Agency Comment Performing Organization Information: ?Site ID: ?Name: [facility] ?Address: [facility] [place] [address] ?Director: Adilson Hameed MD us Bindu Gaines MD LAB BLOOD ORDERABLES Final Result [facility] [place] documented in this encounter Visit Diagnoses Not on filedocumented in this encounter
--- OUTSIDE RECORDS SUMMARY | 2024-04-01 07:56 | XMS_ITS | Encounter Summary ---
Author Organization [facility] Address [address] [facility] [address] [place] [address] Care Team Providers Care Channel Partners Name Role Phone Unavailable Primary Care Provider Unavailabl e Reason for Visit * Reason Onset Date Comments medical question 09/25/2016 Encounter Details Date Type Department Care Team (Late st Contact Info) Description 09/25/2016 Telephone [facility] [address] [facility] [address] [facility] [address] [place] [phone] Bindu Gaines MD [address] [facility] [address] [place] [address] medical question Social History Tobacco Use Types Packs/Day Years Used Date Smoking Tobacco: Never Assessed Alcohol Use Standard Drinks/Week Comments Yes 0 (1 standard drink = 0.6 oz pur e alcohol) Comments Unknown Sex and Gender Information Value Date Recorded Sex Assigned at Not on file Legal Sex Female 8:13 AM DENTAL CREAM MAKER Gender Identity Female 06/01/2020 9:42 PM DENTAL CREAM MAKER Sexual Orientation Straight 06/01/2020 9: 42 PM DENTAL CREAM MAKER documented as of this encounter Miscellaneous Notes * Telephone Encounter - Nayla Isaacs RN - 09/25/2016 12:01 PM CDT Returned call to pt, she will get an INR drawn on Thursday or Thursday, pt aware documented in this encounter Plan of Treatment Not on file documented as of this encounter Visit Diagnoses Not on filedocumented in this encounter
--- OUTSIDE RECORDS SUMMARY | 2024-04-01 07:56 | XMS_ITS | Encounter Summary ---
Author Organization [facility] Address [address] [place] [address] Care Team Providers Care Structural Rigger Name Role Phone Unavailable Primary Care Provider Unavailabl e Encounter Details Date Type Department Care Team (Late st Contact Info) Description 09/30/2016 Orders Only [facility] [address] [facility] [address] [address] Bindu Gaines MD [address] [facility] [address] [place] [address] Social History Tobacco Use Types Packs/Day Years Used Date Smoking Tobacco: Never Assessed Alcohol Use Standard Drinks/Week Comments Yes 0 (1 standard drink = 0.6 oz pur e alcohol) Comments Unknown Sex and Gender Information Value Date Recorded Sex Assigned at Not on file Legal Sex Female 8:13 AM TRAILER CHIEF Gender Identity Female 06/01/2020 9:42 PM TRAILER CHIEF Sexual Orientation Straight 06/01/2020 9: 42 PM TRAILER CHIEF documented as of this encounter Plan of Treatment Not on file documented as of this encounter Procedures Procedure Name Priority Date/Time Associated Diagnosis Comments PROTIME-INR Routine 09/30/2016 7:24 AM CDT documented in this encounter Results * (ABNORMAL) Protime-INR (09/30/2016 7:24 AM CDT) INR 4.4(H) [facility] Comment: Reference Range ? 0.9-1.1 Moderate-intensity Warfarin Therapy 2.0-3.0 Higher-intensity Warfarin Therapy ?? 3.0-4.0 PT 44.2(H) 9.0 - 11.5 sec [facility] Comment: For more information on this test, go to: http://education.TAPTAP Networks/faq/ZPS159 ? Your request to have a duplicate copy faxed has been acknowledged. ?Queued to: ??[id number] 09/30/2016 7:24 AM CDT 09/30/2016 7:24 AM CDT Narrative Resulting Agency Comment Performing Organization Information: ?Site ID: ?Name[facility] ?Address: [facility] [place] [address] ?Director: Adilson Hameed MD us Bindu Gaines MD LAB BLOOD ORDERABLES Final Result [facility] [place] documented in this encounter Visit Diagnoses Not on filedocumented in this encounter
--- OUTSIDE RECORDS SUMMARY | 2024-04-01 07:56 | XMS_ITS | Encounter Summary ---
Author Organization [facility] Facility Care Team Providers Care Chalk Cutter Name Role Phone Unavailable Primary Care Provider Unavailabl e Encounter Details Date Type Department Care Team (Late st Contact Info) Description 09/08/2007 10:58 AM CDT - 09/08/2007 4:00 PM T [facility] [place] [address] [facility] [address] [place] [address] Social History Tobacco Use Types Packs/Day Years Used Date Smoking Tobacco: Never Assessed Comments Unknown Sex and Gender Information Value Date Recorded Sex Assigned at Not on file Legal Sex Female 8:13 AM SUBMARINE ELEMENT COORDINATOR Gender Identity Female 06/01/2020 9:42 PM SUBMARINE ELEMENT COORDINATOR Sexual Orientation Straight 06/01/2020 9: 42 PM SUBMARINE ELEMENT COORDINATOR documented as of this encounter Plan of Treatment Not on file documented as of this encounter Visit Diagnoses Not on filedocumented in this encounter
--- OUTSIDE RECORDS SUMMARY | 2024-04-01 07:56 | XMS_ITS | Encounter Summary ---
Author Organization [facility] Address [address] [facility] [address] [place] [address] Care Team Providers Care Fiberglass Luggage Molder Name Role Phone Unavailable Primary Care Provider Unavailabl e Encounter Details Date Type Department Care Team (Latest Contact Info) Description 10/31/2016 Anticoagulation Visit [facility] [address] [facility] [facility] [address], [place] [address] Bindu Gaines MD [address] [facility] [address] [place] [address] H/O mechanical aortic valve replacement; [...] on file Legal Sex Female 8:13 AM TOE CLOSING MACHINE TENDER Gender Identity Female 06/01/2020 9:42 PM TOE CLOSING MACHINE TENDER Sexual Orientation Straight 06/01/2020 9: 42 PM TOE CLOSING MACHINE TENDER documented as of this encounter Plan of Treatment Not on file documented as of this encounter Procedures Procedure Name Priority Date/Time Associated Diagnosis Comments PROTIME-INR Routine 10/30/2016 3:51 PM CDT documented in this encounter Results * (ABNORMAL) Protime-INR (10/30/2016 3:51 PM CDT) INR 3.40(A) 0.9 - 1.1 [facility] Blood specimen (specimen) us Historical Provider LAB BLOOD ORDERABLES Antonina hernandez Result [facility] documented in this encounter Visit Diagnoses Diagnosis H/O mechanical aortic valve replacement intermediate current 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
--- OUTSIDE RECORDS SUMMARY | 2024-04-01 07:56 | XMS_ITS | Encounter Summary ---
Author Organization [facility] Address [address] [place] [address] Care Team Providers Care Project Manager Interior Design Name Role Phone Unavailable Primary Care Provider Unavailabl e Encounter Details Date Type Department Care Team (Latest Contact Info) Description 09/15/2016 Anticoagulation Visit [facility] [address] [place] [address] Bindu Gaines MD [address] [facility] [address] [place] [address] termite treater helper current use of anticoagulant therapy Social History Tobacco Use Types Packs/Day Years Used Date Smoking Tobacco: Never Assessed Alcohol Use Standard Drinks/Week Comments Yes 0 (1 standard drink = 0.6 oz pur e alcohol) Comments Unknown Sex and Gender Information Value Date Recorded Sex Assigned at Not on file Legal Sex Female 8:13 AM MANAGER LANGUAGE Gender Identity Female 06/01/2020 9:42 PM MANAGER LANGUAGE Sexual Orientation Straight 06/01/2020 9: 42 PM MANAGER LANGUAGE documented as of this encounter Plan of Treatment Not on file documented as of this encounter Procedures Procedure Name Priority Date/Time Associated Diagnosis Comments PROTIME-INR Routine 09/13/2016 1:46 PM CDT documented in this encounter Results * (ABNORMAL) Protime-INR (09/13/2016 1:46 PM CDT) INR 3.30(A) 0.9 - 1.1 [facility] Blood specimen (specimen) us Historical Provider LAB BLOOD ORDERABLES Antonina hernandez Result [facility] documented in this encounter Visit Diagnoses Diagnosis termite treater helper current 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
--- OUTSIDE RECORDS SUMMARY | 2024-04-01 07:56 | XMS_ITS | Encounter Summary ---
Author Organization [facility] Address [address] [facility] [address] [place] [address] Care Team Providers Care Venetian Blind Cleaner And Repairer Name Role Phone Unavailable Primary Care Provider Unavailabl e Encounter Details Date Type Department Care Team (Late st Contact Info) Description 10/30/2016 Orders Only [facility] [address] [facility] [address] [address] Bindu Gaines MD [address] [facility] [address] [place] [address] Social History Tobacco Use Types Packs/Day Years Used Date Smoking Tobacco: Never Smokeless Tobacco: Never Alcohol Use Standard Drinks/Week Comments Yes 1 (1 standard drink = 0.6 oz pur e alcohol) Comments Unknown Sex and Gender Information Value Date Recorded Sex Assigned at Not on file Legal Sex Female 8:13 AM SECURITIES COUNSELOR Gender Identity Female 06/01/2020 9:42 PM SECURITIES COUNSELOR Sexual Orientation Straight 06/01/2020 9: 42 PM SECURITIES COUNSELOR documented as of this encounter Plan of Treatment Not on file documented as of this encounter Procedures Procedure Name Priority Date/Time Associated Diagnosis Comments PROTIME-INR Routine 10/30/2016 3:51 PM CDT documented in this encounter Results * (ABNORMAL) Protime-INR (10/30/2016 3:51 PM CDT) INR 3.4(H) [facility] [place] Comment: Reference Range ? 0.9-1.1 Moderate-intensity Warfarin Therapy 2.0-3.0 Higher-intensity Warfarin Therapy ?? 3.0-4.0 PT 36.0(H) 9.0 - 11.5 sec [facility] [place] Comment: For more information on this test, go to: http://education.I Like My Waitress/faq/QRB553 ? Your request to have a duplicate copy faxed has been acknowledged. ?Queued to: ??[id number] 10/30/2016 3:51 PM CDT 10/30/2016 3:52 PM CDT Narrative Resulting Agency Comment Performing Organization Information: ?Site ID: [email or web address] ?Name: [email or web address] ?Address: [address] [place] [address] [place] [address] ?Director: Sal Jason D.O., MPH us Bindu Gaines MD LAB BLOOD ORDERABLES Final Result [facility] [place] Jean documented in this encounter Visit Diagnoses Not on filedocumented in this encounter
--- OUTSIDE RECORDS SUMMARY | 2024-04-01 07:56 | XMS_ITS | Encounter Summary ---
Author Organization [facility] Facility Care Team Providers Care Scientist Engineer Name Role Phone Unavailable Primary Care Provider Unavailabl e Encounter Details Date Type Department Care Team (Latest Contact Info) Description 11/06/2008 6:16 AM CDT - 11/10/2008 10:34 AM CDT [facility] [address] [facility] [address] [place] [address] Aortic valve disorder; Congenital insufficiency of aortic valve; Other and unspecified hyperlipidemia; Other postprocedural states; Nausea without vomiting; Adverse effects in the therapeutic use of other analgesics and antipyretics; Place of occurrence, residential institution Social History Tobacco Use Types Packs/Day Years Used Date Smoking Tobacco: Never Assessed Comments Unknown Sex and Gender Information Value Date Recorded Sex Assigned at Not on file Legal Sex Female 8:13 AM HELMET COVERER Gender Identity Female 06/01/2020 9:42 PM HELMET COVERER Sexual Orientation Straight 06/01/2020 9: 42 PM HELMET COVERER documented as of this encounter Plan of Treatment Not on file documented as of this encounter Visit Diagnoses Diagnosis Aortic valve disorder Aortic valve disorders Congenital insufficiency of aortic valve Other and unspecified hyperlipidemia Other postprocedural states Nausea without vomiting Adverse effects in the therapeutic use of other analgesics and antipyretics Place of occurrence, residential institution documented in this encounter
--- OUTSIDE RECORDS SUMMARY | 2024-04-01 07:56 | XMS_ITS | Encounter Summary ---
Author Organization [facility] Address [address] [facility] [address] [place] [address] Care Team Providers Care Field Sales Manager Name Role Phone Unavailable Primary Care Provider Unavailabl e Encounter Details Date Type Department Care Team (Latest Contact Info) Description 10/17/2016 Anticoagulation Visit [facility] [address] [place] [address] Bindu Gaines MD [address] [facility] [address] [place] [address] adjunct faculty for medical terminology current use of anticoagulant therapy Social History Tobacco Use Types Packs/Day Years Used Date Smoking Tobacco: Never Assessed Alcohol Use Standard Drinks/Week Comments Yes 0 (1 standard drink = 0.6 oz pur e alcohol) Comments Unknown Sex and Gender Information Value Date Recorded Sex Assigned at Not on file Legal Sex Female 8:13 AM HOOKMAN Gender Identity Female 06/01/2020 9:42 PM HOOKMAN Sexual Orientation Straight 06/01/2020 9: 42 PM HOOKMAN documented as of this encounter Plan of Treatment Not on file documented as of this encounter Procedures Procedure Name Priority Date/Time Associated Diagnosis Comments PROTIME-INR Routine 10/16/2016 7:04 AM CDT documented in this encounter Results * (ABNORMAL) Protime-INR (10/16/2016 7:04 AM CDT) INR 3.70(A) 0.9 - 1.1 [facility] Blood specimen (specimen) us Bindu Gaines MD LAB BLOOD ORDERABLES Final Result [facility] documented in this encounter Visit Diagnoses Diagnosis 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
--- OUTSIDE RECORDS SUMMARY | 2024-04-01 07:56 | XMS_ITS | Encounter Summary ---
Author Organization [facility] Address [address] [facility] [address] [place] [address] Care Team Providers Care Labor Relations Teacher Name Role Phone Unavailable Primary Care Provider Unavailabl e Encounter Details Date Type Department Care Team (Latest Contact Info) Description 10/08/2016 Anticoagulation Visit [facility] [address] [place] [address] Bindu Gaines MD [address] [facility] [address] [place] [address] assistant terminal manager current use of anticoagulant therapy Social History Tobacco Use Types Packs/Day Years Used Date Smoking Tobacco: Never Assessed Alcohol Use Standard Drinks/Week Comments Yes 0 (1 standard drink = 0.6 oz pur e alcohol) Comments Unknown Sex and Gender Information Value Date Recorded Sex Assigned at Not on file Legal Sex Female 8:13 AM SINGER SONGWRITER Gender Identity Female 06/01/2020 9:42 PM SINGER SONGWRITER Sexual Orientation Straight 06/01/2020 9: 42 PM SINGER SONGWRITER documented as of this encounter Plan of Treatment Not on file documented as of this encounter Procedures Procedure Name Priority Date/Time Associated Diagnosis Comments PROTIME-INR Routine 10/07/2016 3:01 PM CDT documented in this encounter Results * (ABNORMAL) Protime-INR (10/07/2016 3:01 PM CDT) INR 2.20(A) 0.9 - 1.1 [facility] Blood specimen (specimen) us Historical Provider LAB BLOOD ORDERABLES Antonina hernandez Result [facility] documented in this encounter Visit Diagnoses Diagnosis assistant terminal manager current 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
--- OUTSIDE RECORDS SUMMARY | 2024-04-01 07:56 | XMS_ITS | Encounter Summary ---
Author Organization [facility] Facility Care Team Providers Care Quill Picking Machine Operator Name Role Phone Unavailable Primary Care Provider Unavailabl e Encounter Details Date Type Department Care Team (Latest Contact Info) Description 10/26/2008 10:15 AM CDT - 10/26/2008 11:59 PM CDT Hospital [facility] Will[facility] MD [address] [facility] [address] [place] [address] Pre-operative cardiovascular examination; Other specified pre-operative examination Social History Tobacco Use Types Packs/Day Years Used Date Smoking Tobacco: Never Assessed Comments Unknown Sex and Gender Information Value Date Recorded Sex Assigned at Not on file Legal Sex Female 8:13 AM OIL WELL DRILLING MANAGER Gender Identity Female 06/01/2020 9:42 PM OIL WELL DRILLING MANAGER Sexual Orientation Straight 06/01/2020 9: 42 PM OIL WELL DRILLING MANAGER documented as of this encounter Plan of Treatment Not on file documented as of this encounter Visit Diagnoses Diagnosis Pre-operative cardiovascular examination Other specified pre-operative examination documented in this encounter
--- OUTSIDE RECORDS SUMMARY | 2024-04-01 07:56 | XMS_ITS | Encounter Summary ---
Author Organization [facility] Medical [facility] Address [address] [facility] [address] [place] [address] Care Team Providers Care Life Assurance Representative Name Role Phone Unavailable Primary Care Provider Unavailabl e Encounter Details Date Type Department Care Team (Latest Contact Info) Description 09/15/2016 Anticoagulation Visit [facility] [address] [place] [address] Bindu Gaines MD [address] [place] [address] rn long term care current use of anticoagulant therapy Social History Tobacco Use Types Packs/Day Years Used Date Smoking Tobacco: Never Assessed Alcohol Use Standard Drinks/Week Comments Yes 0 (1 standard drink = 0.6 oz pur e alcohol) Comments Unknown Sex and Gender Information Value Date Recorded Sex Assigned at Not on file Legal Sex Female 8:13 AM FLOAT TENDER Gender Identity Female 06/01/2020 9:42 PM FLOAT TENDER Sexual Orientation Straight 06/01/2020 9: 42 PM FLOAT TENDER documented as of this encounter Plan of Treatment Not on file documented as of this encounter Procedures Procedure Name Priority Date/Time Associated Diagnosis Comments PROTIME-INR Routine 09/13/2016 documented in this encounter Results * Protime-INR (09/13/2016) INR 3.30 2.5 - 3.5 [facility] Comment:PT 35.0 Blood specimen (specimen) 09/13/2016 us Bindu Gaines MD LAB BLOOD ORDERABLES Final Result [facility] documented in this encounter Visit Diagnoses Diagnosis rn long term care current 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
--- OUTSIDE RECORDS SUMMARY | 2024-04-01 07:56 | XMS_ITS | Encounter Summary ---
Author Organization [facility] Address [address] [facility] [address] [place] [address] Care Team Providers Care Manager Agriculture Name Role Phone Unavailable Primary Care Provider Unavailabl e Encounter Details Date Type Department Care Team (Late st Contact Info) Description 10/16/2016 Orders Only [facility] [address] [facility] [address], [place] [address] Bindu Gaines MD [address] [facility] [place] [facility] [address] [place] [address] Social History Tobacco Use Types Packs/Day Years Used Date Smoking Tobacco: Never Assessed Alcohol Use Standard Drinks/Week Comments Yes 0 (1 standard drink = 0.6 oz pur e alcohol) Comments Unknown Sex and Gender Information Value Date Recorded Sex Assigned at Not on file Legal Sex Female 8:13 AM FELT MACHINE MECHANIC Gender Identity Female 06/01/2020 9:42 PM FELT MACHINE MECHANIC Sexual Orientation Straight 06/01/2020 9: 42 PM FELT MACHINE MECHANIC documented as of this encounter Plan of Treatment Not on file documented as of this encounter Procedures Procedure Name Priority Date/Time Associated Diagnosis Comments PROTIME-INR Routine 10/16/2016 3:59 PM CDT documented in this encounter Results * (ABNORMAL) Protime-INR (10/16/2016 3:59 PM CDT) INR 3.7(H) [facility] [place] Comment: Reference Range ? 0.9-1.1 Moderate-intensity Warfarin Therapy 2.0-3.0 Higher-intensity Warfarin Therapy ?? 3.0-4.0 PT 38.5(H) 9.0 - 11.5 sec [facility] Comment: For more information on this test, go to: http://education.NanoVelos/faq/BHZ106 ? Your request to have a duplicate copy faxed has been acknowledged. ?Queued to: ??[id number] 10/16/2016 3:59 PM CDT 10/16/2016 3:59 PM CDT Narrative [facility] - 10/17/2016 7:39 AM CDT FASTING:NO Resulting Agency Comment Performing Organization Information: ?Site ID: [place] ?Name: [facility] ?Address: [address] [address] ?Director: Sal Jason D.O. MPH us Bindu Gaines MD LAB BLOOD ORDERABLES Final Result [facility] documented in this encounter Visit Diagnoses Not on filedocumented in this encounter
--- OUTSIDE RECORDS SUMMARY | 2024-04-01 07:56 | XMS_ITS | Encounter Summary ---
Author Organization [facility] Address [address] [facility] [address] [place] [address] Care Team Providers Care Bevel Polisher Name Role Phone Unavailable Primary Care Provider Unavailabl e Encounter Details Date Type Department Care Team (Latest Contact Info) Description 10/01/2016 Anticoagulation Visit [facility] [address] [facility] [address], [place] [address] Bindu Gaines MD [address] [facility] [address] [place] [address] long term care social worker current use of anticoagulant therapy Social History Tobacco Use Types Packs/Day Years Used Date Smoking Tobacco: Never Assessed Alcohol Use Standard Drinks/Week Comments Yes 0 (1 standard drink = 0.6 oz pur e alcohol) Comments Unknown Sex and Gender Information Value Date Recorded Sex Assigned at Not on file Legal Sex Female 8:13 AM BRUSH MACHINE SETTER Gender Identity Female 06/01/2020 9:42 PM BRUSH MACHINE SETTER Sexual Orientation Straight 06/01/2020 9: 42 PM BRUSH MACHINE SETTER documented as of this encounter Plan of Treatment Not on file documented as of this encounter Visit Diagnoses Diagnosis long term care social worker current 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
--- OUTSIDE RECORDS SUMMARY | 2024-04-01 11:58 | XMS_ITS | Encounter Summary ---
Author Organization [facility] Address [address] [place] [address]. [place] [address] [place] [address] Care Team Providers Care Feller Operator Name Role Phone Sanket Waldron DO Primary Care Provider + Reason for Visit * Reason Onset Date Comments Referral 01/20/2024 Encounter Details Date Type Department Care Team (Late st Contact Info) Description 01/20/2024 KeyedIn Solutionst Message Enc [facility] Family & Internal Medicine [place] [address] [place] [phone] Sanket Waldron DO [address] [place] [address] Dermatology referral & Overdue Medicare [...] st Contact Info) Description 05/30/2024 7:20 AM KEY ENTRY OPERATOR Laboratory Only [facility] Family & Internal Medicine [address] [address] Sanket Waldron DO [address] [place] [address] 06/06/2024 11:40 AM KEY ENTRY OPERATOR Office Visit [facility] Family & Internal Medicine - [place] [address] [place] [address] Sanket Waldron DO [address] [place] [address] documented as of this encounter Visit Diagnoses Not on filedocumented in this encounter Care Teams Feller Operator Relationship Specialty Start Date End Date Sanket Waldron DO [address] [place] [address] PCP - General FAMILY PRACTICE 05/26/23 documented as of this encounter
--- OUTSIDE RECORDS SUMMARY | 2024-04-01 11:58 | XMS_ITS | Encounter Summary ---
Author Organization [facility] Address [address] [place] [address]. [place], [place] [address] [place] [address] Care Team Providers Care Physical Anthropologist Name Role Phone Sanket Waldron Yuan THOMPSON [...] ( Contact Info) Description 05/30/2024 7:20 AM HERBOLOGIST Laboratory Only [facility] Medical [facility] Family & Internal Medicine [address] [address] Sanket Waldron DO [address] [place] [address] 06/06/2024 11:40 AM HERBOLOGIST Office Visit [facility] Family & Internal Medicine - [place] [address] [place] [address] Sanket Waldron DO [address] [place] [address] documented as of this encounter Procedures Procedure [...] documented as of this encounter Care Teams Physical Anthropologist Relationship Specialty Start Date End Date Sanket Waldron DO [address] [place] [address] PCP - General FAMILY PRACTICE 05/26/23 documented as of this encounter
--- OUTSIDE RECORDS SUMMARY | 2024-04-01 11:58 | XMS_ITS | Encounter Summary ---
Author Organization [facility] Address [address] [place] [address]. [place] [address] [place] [address] Care Team Providers Care Commercial Green Building Designer Name Role Phone Peterson Colindres DO Primary Care Provider + Reason for Visit * Reason Onset Date Comments Referral 01/22/2024 Encounter Details Date Type Department Care Team (Late st Contact Info) Description 01/22/2024 Telephone [facility] Family & Internal Medicine [facility] [address] [place] [address] Peterson Colindres DO [address] [place] [address] Referral Social History Tobacco Use [...] Referral was placed on 01/18/2024 * Veronica Mariley Rosenbaum - 01/22/2024 2:29 PM CDT The patient called for a referral to the following physician: Is this a new consult:Yes. 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 Appointment: 01/27/2024 Last office visit at this office: Last visit with PETERSON COLINDRES in FAMILY PRACTICE was on: 12/04/2023 in [facility] Future appointment scheduled: Future Appointments Date Time Provider Department Center 05/30/2024 7:20 AM [facility] 06/06/2024 11:40 AM Peterson Colindres DO [facility] [employer] documented in this encounter Plan of Treatment Upcoming Encounters Date Type Department Care Team (Late st [facility] Info) Description 05/30/2024 7:20 AM HIDE CLEANER Laboratory Only [facility] Family & Internal Medicine [facility] [address] [place] [address] [place] [address] [place] [address] 06/06/2024 11:40 AM HIDE CLEANER Office Visit [facility] Family & Internal [facility] [address] [place] [address] Peterson Colindres DO [address] [place] [address] documented as of this encounter Visit Diagnoses Not on filedocumented in this encounter Care Teams Commercial Green Building Designer Relationship Specialty Start Date End Date Peterson Colindres DO [facility] [place] [address] PCP - General FAMILY PRACTICE 05/26/23 documented as of this encounter
--- OUTSIDE RECORDS SUMMARY | 2024-04-01 11:58 | XMS_ITS | Encounter Summary ---
Author Organization [facility] Address [address] [place] [address]. [place], [place] [address] [place] [address] Care Team Providers Care Surgical Elastic Knitter Hand Frame Name Role Phone Sanket Waldron Yuan THOMPSON [...] ( Contact Info) Description 05/30/2024 7:20 AM TELETYPE TELEGRAPHER Laboratory Only [facility] Medical Group Family & Internal Medicine [address] [address] Sanket Waldron DO [address] [place] [address] 06/06/2024 11:40 AM TELETYPE TELEGRAPHER Office Visit [facility] Medical Group Family & Internal Medicine [facility] [address] [place] [phone] Sanket Waldron DO [address] [place] [address] documented as of this encounter Procedures Procedure Name Priority Date/Time Associated Diagnosis Comments OUTSIDE PT/INR (SCAN ORDER) 02/01/2024 documented in this encounter Results * OUTSIDE PT/INR (SCAN ORDER) (02/01/2024) 02/01/2024 us Doc Med Group Scanned SCANNING Final Resu lt documented in this encounter Visit Diagnoses Not on filedocumented in this encounter Care Teams Surgical Elastic Knitter Hand Frame Relationship Specialty Start Date End Date Sanket Waldron DO [address] [place] [address] PCP - General FAMILY PRACTICE 05/26/23 documented as of this encounter
--- OUTSIDE RECORDS SUMMARY | 2024-04-01 11:58 | XMS_ITS | Encounter Summary ---
Author Organization [facility] Address [address] [place] [address]. [place], [place] [address] [place] [address] Care Team Providers Care Calender Wind Up Helper Name Role Phone Sanket Waldron DO Primary [...] st Contact Info) Description 05/30/2024 7:20 AM TUBE COREMAKER Laboratory Only [facility] Medical [facility] Family & Internal Medicine [address] [address] Sanket Waldron DO [address] [place] [address] 06/06/2024 11:40 AM TUBE COREMAKER Office Visit [facility] Medical Group Family & Internal Medicine - [place] [address] [place] [address] Sanket Waldron DO [address] [place] [address] documented as of this encounter Visit Diagnoses Not on filedocumented in this encounter Additional Health Concerns Assessment Noted Time PHQ-9 Depression Total Score: 0 02/03/20 24 2:27 PM CDT documented as of this encounter Care Teams Calender Wind Up Helper Relationship Specialty Start Date End Date Sanket Waldron DO [address] [place] [address] PCP - General FAMILY PRACTICE 05/26/23 documented as of this encounter
--- OUTSIDE RECORDS SUMMARY | 2024-04-01 11:58 | XMS_ITS | Encounter Summary ---
Author Organization [facility] Address [address] [place] [address]. [place] [address] [place] [address] Care Team Providers Care Practice Office Associate Name Role Phone Sanket Waldron DO Primary [...] st Contact Info) Description 05/30/2024 7:20 AM CAR PRE COOLER Laboratory Only [facility] Family & Internal Medicine [place] [address] [place] [address] Sanket Waldron DO [address] [place] [address] 06/06/2024 11:40 AM CAR PRE COOLER Office Visit [facility] Family & Internal Medicine [address] [address] Sanket Waldron DO [address] [place] [address] documented as of this encounter Procedures Procedure Name Priority Date/Time Associated Diagnosis Comments OUTSIDE PT/INR (SCAN ORDER) 01/11/2024 documented in this encounter Results * OUTSIDE PT/INR (SCAN ORDER) (01/11/2024) 01/11/2024 us Doc Med Group Scanned SCANNING Final Resu lt documented in this encounter Visit Diagnoses Not on filedocumented in this encounter Care Teams Practice Office Associate Relationship Specialty Start Date End Date Sanket Waldron DO [address] [place] [address] PCP - General FAMILY PRACTICE 05/26/23 documented as of this encounter
--- OUTSIDE RECORDS SUMMARY | 2024-04-01 11:58 | XMS_ITS | Encounter Summary ---
Author Organization [facility] Address [address] [place] [address]. [place], [place] [id number] [place] [address] Care Team Providers Care Graduate Recruiter Name Role Phone Sanket Waldron DO Primary [...] st Contact Info) Description 05/30/2024 7:20 AM MORTGAGE LENDER Laboratory Only [facility] Medical Group Family & Internal Medicine [facility] [address] [place] [address] Sanket Waldron DO [address] [place] [address] 06/06/2024 11:40 AM MORTGAGE LENDER Office Visit [facility] Medical Group Family & Internal Medicine - [address] [address] Sanket Waldron DO [address] [place] [address] documented as of this encounter Visit Diagnoses Not on filedocumented in this encounter Additional Health Concerns Assessment Noted Time PHQ-9 Depression Total Score: 0 02/03/20 24 2:27 PM CDT documented as of this encounter Care Teams Graduate Recruiter Relationship Specialty Start Date End Date Sanket Waldron DO [address] [place] [address] PCP - General FAMILY PRACTICE 05/26/23 documented as of this encounter
--- OUTSIDE RECORDS SUMMARY | 2024-04-01 11:58 | XMS_ITS | Encounter Summary ---
Author Organization [facility] Address [address] [place] [address]. [place], [place] [address] [place] [address] Care Team Providers Care Assistant Public Defender Name Role Phone Sanket Waldron DO Primary [...] st Contact Info) Description 05/30/2024 7:20 AM MAINTENANCE PLANNING CLERK Laboratory Only [facility] Medical [facility] Family & Internal Medicine [address] [address] Sanket Waldron DO [address] [place] [address] 06/06/2024 11:40 AM MAINTENANCE PLANNING CLERK Office Visit [facility] Medical Group Family & Internal Medicine - [place] [address] [place] [address] Sanket Waldron DO [address] [place] [address] documented as of this encounter Visit Diagnoses Not on filedocumented in this encounter Additional Health Concerns Assessment Noted Time PHQ-9 Depression Total Score: 0 02/03/20 24 2:27 PM CDT documented as of this encounter Care Teams Assistant Public Defender Relationship Specialty Start Date End Date Sanket Waldron DO [address] [place] [address] PCP - General FAMILY PRACTICE 05/26/23 documented as of this encounter
--- OUTSIDE RECORDS SUMMARY | 2024-04-01 11:58 | XMS_ITS | Patient Health Summary ---
Author Organization [facility] Address [address] [place] [address] Care Team Providers Care Boilermaker Name Role Phone Unavailable Primary Care Provider Unavailabl e Note from [facility],non-owned Affiliates and Associated Physician Practices is amultiple site organization consisting of ambulatory clinics and hospital sitesin [place], [place], [place] and [place]. This disclosure is being madepursuant to the Care Everywhere program and may not contain all information available regarding this patient. Last updated 18.[facility] Social History Tobacco Use Types Packs/Day Years Used Date Smoking Tobacco: Never Assessed Sex and Gender Information Value Date Recorded Sex Assigned at Not on file Gender Identity Not on file Sexual Orientation Not on file Procedures * DERMATOPATHOLOGY(Performed 01/08/2024) Performed for Neoplasm of uncertain behavior of skin Results * DERMATOPATHOLOGY (01/08/2024 12:00 AM CDT) Case Report Dermatopathology Report ? Case: [id number] ? Authorizing Provider: ??Jamilah Garzon PA ? [...] CLEAR CELL CHANGE (C44.319) 4 3:[address] [facility] DERMATOPATHOLOGY LABORATORY Clinical History Neoplasm of uncertain [...] characteristic determined by the Dermatopathology Laboratory at [facility], directed by Dr. Thaddeus Souza. These tests need not be, and therefore are not, approved by the [place] Food and Drug Administration. The tests are used for clinical purposes. Billing Codes Specimen Charges Stain Charges 44533 1 56623 23395 63617 1 1 1 4 3:08 PM CDT DERMATOPATHOLOGY LABORATORY Embedded Images 4 3:08 PM CDT DERMATOPATHOLOGY LABORATORY Pathology/Cytolog y TISSUE SPECIMEN FROM SKIN / Unknown 01/08/2024 01/11/2024 11:17 AM CDT [facility] - PATHOLOGY/CYT OLOGY ORDERABLES DERMATOPATHOLOGY LABORATORY [facility] - Department of Dermatology [facility] Medicine [address] [place] [address], [address] [phone]
--- OUTSIDE RECORDS SUMMARY | 2024-04-01 11:58 | XMS_ITS | Encounter Summary ---
Author Organization [facility] Address [address] [place] [address]. [place], [place] [address] [place] [address] Care Team Providers Care Key Maker Name Role Phone Sanket Waldron DO Primary Care Provider + Reason for Visit * Reason Comments Medicare Wellness Encounter Details Date Type Department Care Team (Late st Contact Info) Description 02/03/2024 2:00 PM CDT Office Visit [facility] Medical Group Family & Internal Medicine [facility] [address] [place] [address] Sanket Waldron DO [address] [place], [place] [phone] Medicare Wellness Social History Tobacco Use Types [...] Written by the doctors and editors at [facility] What are advance directives???--??Advance directives are legal [...] proxy (also called the durable power of interim controller for health care) - The health care [...] process is complete. This topic retrieved from [employer] on: Apr 20, 2018. Topic 12874 Version 11.0 table 1: Resources that can help you make advance directives ?? Address Phone number Website [facility] [address] [place] [address] Toll-free: (079) [facility] [ ] [email or web address]://[email or web address]/external_sites/ caregiving/multimedia/EG_AdvanceDirectives.html Aging with Dignity (Five Wishes form) [address] [place] [address] Toll-free: [phone] [phone] [ ] www.agingwithdignity.org CaringInfo ?? Toll-free: www.[email or web address].org My1login c/o [employer] [address] [place] [address] [email or web address] FALL RISK Guidelines to help you prevent [...] pain ever and you need to go [facility]. An exam will help your doctor [...] you. Some of these are massage, acupuncture, medication care manager, and relaxation. What drugs may be needed? [...] Contact Info) Description 05/30/2024 7:20 AM DIRECTOR CORPORATE COMPLIANCE Laboratory Only [facility] Family & Internal Medicine [address] [address] Sanket Waldron DO [address] [place] [address] 06/06/2024 11:40 AM DIRECTOR CORPORATE COMPLIANCE Office Visit [facility] Family & Internal Medicine - [place] [address] [place] [address] Sanket Waldron DO [address] [place] [address] documented as of this encounter Visit Diagnoses Diagnosis Routine general medical examination at a health care facility- Primary documented in this encounter Additional Health Concerns Assessment Noted Time PHQ-9 Depression Total Score: 0 02/03/20 24 2:27 PM CDT documented as of this encounter Care Teams Key Maker Relationship Specialty Start Date End Date Sanket Waldron DO [address] [place] [address] PCP - General FAMILY PRACTICE 05/26/23 documented as of this encounter
--- OUTSIDE RECORDS SUMMARY | 2024-04-01 11:58 | XMS_ITS | Encounter Summary ---
Author Organization [facility] Address [address] [place] [address]. [place], [place] [address] [place] [address] Care Team Providers Care Mattress Specialist Name Role Phone Sanket Waldron DO Primary Care Provider + Reason for Visit * Reason Onset Date Comments Medication 02/15/2024 Encounter Details Date Type Department Care Team (Late st Contact Info) Description 02/15/2024 Context Relevantt Message Enc [facility] Medical Group Family & Internal Medicine [facility] [address] [place] [address] Sanket Waldron DO [address] [place] [address] Gabapentin Social History Tobacco Use [...] on: 02/17/2024 03:20 PM Modules accepted: Orders ING SUPPORT WORKER * Sanket Waldron DO - 02/17/2024 12:44 PM CST Yes that's fine. ING SUPPORT WORKER * Veronica Harmon MA - 02/16/2024 7:35 AM CST Patient advised via [employer]. ING SUPPORT WORKER * Sanket Waldron DO - 02/15/2024 4:25 PM CST I'd recommend decreasing to 600 mg BID for one week, then 600 mg daily for one week, then 300 mg daily for one week, then 100 mg daily for one week, then stop. ING SUPPORT WORKER documented in this encounter Plan of Treatment Upcoming Encounters Date Type Department Care Team (Late st Contact Info) Description 05/30/2024 7:20 AM NURSING SUPPORT WORKER Laboratory Only [facility] Family & Internal Medicine [address] [phone] Sanket Waldron DO [address] [place] [address] 06/06/2024 11:40 AM NURSING SUPPORT WORKER Office Visit [facility] Family & Internal [facility] [address] [place] [phone] Sanket Waldron DO [address] [place] [address] documented as of this encounter Visit Diagnoses Diagnosis Fibromyalgia Mylagia and myositis, unspecified documented in this encounter Additional Health Concerns Assessment Noted Time PHQ-9 Depression Total Score: 0 02/03/20 2:27 PM CDT documented as of this encounter Care Teams Mattress Specialist Relationship Specialty Start Date End Date Sanket Waldron DO [address] [place] [address] PCP - General FAMILY PRACTICE 05/26/23 documented as of this encounter
--- OUTSIDE RECORDS SUMMARY | 2024-04-01 11:58 | XMS_ITS | Encounter Summary ---
Author Organization [facility] Address [address] [place] [address]. [place], [place] [address] [place] [address] Care Team Providers Care Mail Carrier Technician Name Role Phone Sanket Waldron Yuan [...] ( Contact Info) Description 05/30/2024 7:20 AM SILO MAN Laboratory Only [facility] Family & Internal Medicine [address] [address] Sanket Waldron DO [address] [place] [address] 06/06/2024 11:40 AM SILO MAN Office Visit [facility] Family & Internal Medicine - [place] [address] [place] [address] Sanket Waldron DO [address] [place] [address] documented as of this encounter Procedures Procedure [...] documented as of this encounter Care Teams Mail Carrier Technician Relationship Specialty Start Date End Date Sanket Waldron DO [address] [place] [address] PCP - General FAMILY PRACTICE 05/26/23 documented as of this encounter
--- OUTSIDE RECORDS SUMMARY | 2024-04-01 11:58 | XMS_ITS | Encounter Summary ---
Author Organization [facility] Address [address] [place] [address]. [place], [place] [address] [place] [address] Care Team Providers Care Pretzel Twister Name Role Phone Sanket Waldron DO Primary Care Provider + Encounter Details Date Type Department Care Team (Late st Contact Info) Description 01/18/2024 Click With Me Now Message Enc [facility] Medical Group Family & Internal Medicine [facility] [address] [place] [address] Sanket Waldron DO [address] [place] [address] Call from PT Provider Social [...] st Contact Info) Description 05/30/2024 7:20 AM TOOL AND DIE MANAGER Laboratory Only [facility] Family & Internal [facility] [address] [place] [address] Sanket Waldron DO [address] [place] [address] 06/06/2024 11:40 AM TOOL AND DIE MANAGER Office Visit [facility] Family Internal [place] [address] [place] [address] Sanket Waldron DO [address] [place] [address] documented as of this encounter Visit Diagnoses Not on filedocumented in this encounter Care Teams Pretzel Twister Relationship Specialty Start Date End Date Sanket Waldron DO [address] [place] [address] PCP - General FAMILY PRACTICE 05/26/23 documented as of this encounter
--- OUTSIDE RECORDS SUMMARY | 2024-04-01 11:58 | XMS_ITS | Encounter Summary ---
Author Organization [facility] Address [address] [place] [address]. [place], [place] [address] [place] [address] Care Team Providers Care Hand Shaper Name Role Phone Sanket Waldron Yuan THOMPSON [...] ( Contact Info) Description 05/30/2024 7:20 AM BILLET SAWYER Laboratory Only [facility] Medical Group Family & Internal Medicine [address] [address] Sanket Waldron DO [address] [place] [address] 06/06/2024 11:40 AM BILLET SAWYER Office Visit [facility] Medical Group Family & Internal Medicine - [place] [address] [place] [address] Sanket Waldron DO [address] [place] [address] documented as of this encounter Procedures Procedure [...] documented as of this encounter Care Teams Hand Shaper Relationship Specialty Start Date End Date Sanket Waldron DO [address] [place] [address] PCP - General FAMILY PRACTICE 05/26/23 documented as of this encounter
--- OUTSIDE RECORDS SUMMARY | 2024-04-01 11:58 | XMS_ITS | Encounter Summary ---
Author Organization [facility] Address [address] [place] [address]. [place], [place] [address] [place] [address] Care Team Providers Care Solid Waste Analyst Name Role Phone Sanket Waldron DO [...] st Contact Info) Description 05/30/2024 7:20 AM LONG TERM Laboratory Only [facility] Medical [facility] Family & Internal Medicine [address] [address] Sanket Waldron DO [address] [place] [address] 06/06/2024 11:40 AM LONG TERM Office Visit [facility] Medical Group Family & Internal Medicine - [place] [address] [place] [address] Sanket Waldron DO [address] [place] [address] documented as of this encounter Visit Diagnoses Not on filedocumented in this encounter Care Teams Solid Waste Analyst Relationship Specialty Start Date End Date Sanket Waldron DO [address] [place] [address] PCP - General FAMILY PRACTICE 05/26/23 documented as of this encounter
--- OUTSIDE RECORDS SUMMARY | 2024-04-01 11:58 | XMS_ITS | Clinical Summary ---
Author Organization [facility] [place] Address [address] [place] [address]. [place], [place] [address] [place] [address] Care Team Providers Care Script Reader Name Role Phone Sanket Waldron DO Primary [...] per cardiology Chronic anticoagulation 08/28/2015 Overview (05/26/2023): nursing home current use of anticoagulant Last Assessment & Plan: On warfarin 4mg daily Checking INR tomorrow H/O mechanical aortic valve replacement 08/28/19 16 Overview (05/26/2023): History of aortic valve replacement with metallic valve S/P 19 mm [place] mechanical AVR Dr. Guthrie 2008 for and [...] Care Team Description 03/31/2024 MyChart Message Enc [facility] [address] [phone] Sanket Waldron, DO Gastro referral 03/30/2024 8:20 AM DRAWER HARDWARE WORKER Allied Health/Nurse Visit [facility] [address] [phone] Sanket Waldron, DO Allied Health Visit 03/30/2024 Travel 03/29/2024 Care Management [facility] [address] [phone] Jordyn Herring, V[facility]ULAR SPECIAL[facility] 03/28/2024 MyChart Message Enc [facility] [address] [phone] Sanket Waldron, DO Referral for ENT 03/28/2024 MyChart Message Enc [facility] [address] [phone] Sanket Waldron, DO ER visit 03/27/24 03/14/2024 Scan [facility] SRVCS Scanned, [facility] (SCAN) 03/07/2024 Scan [facility] SRVCS Scanned, [facility] (SCAN) 02/29/2024 Scan [facility] INFO SRVCS Scanned, [facility] (SCAN) 02/25/2024 Scan [facility] INFO SRVCS Scanned, [facility] (SCAN) 02/22/2024 10:40 AM DRAWER HARDWARE WORKER Office Visit [facility] [address] [phone] Phillip Curtis MD Hematuria (Patient c/o gross hematuria starting Thursday); Abdominal Pain (X2 days); Low Back Pain (Patient has had low back pain, but note this is not unusual for her) 02/22/[address] [phone] Sanket Waldron, DO Information 02/22/2024 Travel 02/19/[address] [phone] Sanket Waldron, DO Referral 02/16/2024 Scan [facility] INFO SRVCS Scanned, [facility] 02/15/2024 MyChart Message Enc [address] [phone] Sanket Waldron, DO Gabapentin 02/03/2024 2:00 PM CDT Office Visit [address] [phone] Sanket Waldron, DO Medicare Wellness 02/03/2024 Scan [facility] INFO SRVCS Scanned, [facility] 02/03/2024 Travel 02/01/2024 Scan [facility] INFO SRVCS Scanned, [facility] (SCAN) 01/27/2024 Scan [facility] INFO SRVCS Scanned, [facility] 01/22/[address] [address] Sanket Waldron, DO Referral 01/20/2024 MyChart Message Enc [facility] [address] [phone] Sanket Waldron, DO Dermatology referral & Overdue Medicare visit 01/18/2024 Telephone [facility] [address] [phone] Sanket Waldron, DO Referral 01/18/2024 MyChart Message Enc [facility] [address] [phone] Sanket Waldron, DO Call from PT Provider 01/11/2024 Scan [facility] INFO SRVCS Scanned, [facility] (SCAN) 01/08/2024 Scan [facility] INFO SRVCS Scanned, [facility] Procedure (SCAN) 01/08/2024 Telephone [facility] [address] [phone] Sanket Waldron, DO Information from Last 3 [...] Comments Blood Pressure 128/70 02/22/2024 11:23 AM DRAWER HARDWARE WORKER Pulse 71 02/22/2024 11:23 AM DRAWER HARDWARE WORKER Temperature 36.5 ??C (97.7 ??F) 02/22/2024 11:[address] Respiratory Rate 16 02/22/2024 11:23 AM DRAWER HARDWARE WORKER Oxygen Saturation 91% 02/22/2024 11:23 AM DRAWER HARDWARE WORKER Inhaled Oxygen Concentration - - Weight 59.9 kg (132 lb 1.6 oz) 02/22/2024 11:23 AM DRAWER HARDWARE WORKER Height 153.7 cm (5' 0.5 ) 02/22/2024 11:23 AM CS T Body Mass Index 25.37 02/22/2024 11:23 AM DRAWER HARDWARE WORKER Plan of Treatment Upcoming Encounters Date Type Department Care Team (Late st Contact Info) Description 05/30/2024 7:20 AM DRAWER HARDWARE WORKER Laboratory Only [facility] [address] [phone] Sanket Waldron DO [address] [place] [address] 06/06/2024 11:40 AM DRAWER HARDWARE WORKER Office Visit [facility] [address] [place] [phone] Sanket Waldron DO [address] [place] [address] Health Maintenance Due Date Last Done Comments [...] CBC W/DIFF AUTOMATED Routine 03/30/2024 8:46 AM DRAWER HARDWARE WORKER Black tarry stools OCCULT BLOOD, FECES Routine 03/30/2024 Black tarry stools OUTSIDE PT/INR (SCAN ORDER) 03/14/2024 OUTSIDE PT/INR (SCAN ORDER) 03/07/2024 OUTSIDE PT/INR (SCAN ORDER) 02/29/2024 OUTSIDE PT/INR (SCAN ORDER) 02/25/2024 CBC W/DIFF AUTOMATED Routine 02/22/2024 11:59 AM DRAWER HARDWARE WORKER Gross hematuria PROTHROMBIN TIME, VENOUS Routine 02/22/2024 11:59 AM DRAWER HARDWARE WORKER Gross hematuria Elevated INR VENIPUNC ARM DRAW Routine 02/22/2024 11: 57 AM DRAWER HARDWARE WORKER Gross hematuria Elevated INR URINALYSIS MICRO ONLY Routine 02/22/2024 11:13 AM DRAWER HARDWARE WORKER Gross hematuria URINE BACTERIA CULTURE Routine 02/22/2024 11:08 AM DRAWER HARDWARE WORKER Gross hematuria PROTHROMBIN TIME, FINGERSTICK Routine 02/22/2024 Gross hematuria URINALYSIS AUTO DIP Routine 02/22/2024 Gross hematuria OUTSIDE PT/INR (SCAN ORDER) 02/01/2024 OUTSIDE PT/INR (SCAN ORDER) 01/11/2024 PROCEDURE GENERIC (SCAN ORDER) 01/08/2024 BONE DENSITY GENERIC (SCAN ORDER) 11/12/2023 MAMMOGRAM GENERIC (SCAN ORDER) 11/12/2023 HEPATITIS C ANTIBODY Routine 05/26/2023 12:01 PM DRAWER HARDWARE WORKER Mild intermittent asthma without complication (HHS/HCC) Screening for endocrine, metabolic and immunity disorder Annual physical exam Need for hepatitis C screening test from Last 3 Months or Most Recently Relevant to Health Maintenance Results * CBC W/DIFF AUTOMATED (03/30/2024 8:46 AM DRAWER HARDWARE WORKER) Only the most recent of2 resultswithin the [...] 0.1 x10E3/uL [facility] 1 03/30/2024 8:46 AM DRAWER HARDWARE WORKER 03/30/2024 Narrative [facility] - 03/31/2024 3:07 AM DRAWER HARDWARE WORKER Performed at: ??01 - [facility] [address] ??[id number] Cardroom Drawing Runner: Patricio Viera PhD, Phone: ??[phone] Sanket Waldron DO LABORATORY Final Re sult Performing Organization Address [facility] Co de Phone Number [facility] [address] [place] [address] [facility] 1 * (ABNORMAL) OCCULT BLOOD, FECES (03/30/2024) OCCULT BLOOD FECAL POSITIVE(A ) NEGATIVE [facility] COLLECTION DATE 03/30/24 [facility] STOOL SPECIMEN / Unknown 03/30/2024 Sanket Waldron DO BODY FLUIDS AND STOOLS O RDERABLES Final Result Performing Organization Address [facility] Co de Phone Number [facility] [address] [place] [address], [place] * OUTSIDE PT/INR (SCAN ORDER) (03/14/2024) Only the most recent of6 resultswithin the time period is included. 03/14/2024 us [facility] Scanned SCANNING Final Resu lt * (ABNORMAL) PROTIME/INR, VENOUS (02/22/2024 11:59 AM DRAWER HARDWARE WORKER) PROTIME 37.9(H) 9.3 - 11.6 SEC 02/22/2024 3:10 PM DRAWER HARDWARE WORKER [facility] INR 4.0(H) 0.9 - 1.1 02/22/2024 3:10 PM DRAWER HARDWARE WORKER [facility] Comment: TREATMENT OR PROPHYLAXIS AGAINST: ?? THERAPEUTIC RANGE (INR): ?VENOUS THROMBOSIS ? 2.0-3.0 ?PULMONARY EMBOLUS ? 2.0-3.0 ?? MECHANICAL PROSTHETIC VALVES ? 2.5-3.5 02/22/2024 11:5 9 AM DRAWER HARDWARE WORKER Phillip Curtis MD LABORATORY Final Result -[facility] [address] [place] [address], * (ABNORMAL) URINALYSIS MICRO ONLY (02/22/2024 11:13 AM DRAWER HARDWARE WORKER) RBC/HPF PACKED(A) 0 - 3 /HPF 02/22/2024 3:06 PM DRAWER HARDWARE WORKER [facility] WBC/HPF 0-3 0 - 3 /HPF 02/22/2024 3:06 PM DRAWER HARDWARE WORKER [facility] EPI/HPF 0-3 /HPF 02/22/2024 3:06 PM DRAWER HARDWARE WORKER [facility] BACTERIA (U) TRACE(A) NONE SEEN 02/22/2024 3:06 PM DRAWER HARDWARE WORKER [facility] [place] URINE SPECIMEN OBTAINED BY CLEAN CATCH PROCEDURE / Unknown 02/22/2024 11:13 AM DRAWER HARDWARE WORKER Phillip Curtis MD URINE ORDERABLES Final Result [facility] [address] [facility] [place] [address], * URINE BACTERIA CULTURE (02/22/2024 11:08 AM DRAWER HARDWARE WORKER) CULTURE RESULT [facility] Comment: ??CULTURE, URINE, ROUTINE ?Micro Number: ?[id number] ??Test Status: ? Final ??Specimen Source: ?? [...] CATCH PROCEDURE / Unknown 02/22/2024 11:08 AM DRAWER HARDWARE WORKER 02/23/2024 1:04 AM DRAWER HARDWARE WORKER Narrative Resulting Agency Comment Performing Organization Information: ?Site ID: SL ?Name: [facility] ?Address: [address] [place] [address] ?Director: Adilson Hameed us Phillip Curtis MD MICROBIOLOGY - GENERAL ORDERAB LES Final Result [facility]-[address] [address], [place] * PROTIME/INR, FINGERSTICK (02/22/2024) INR WHOLE BLOOD 4.50 MG-S [facility] Comment:Venous drawn 02/22/2024 us Phillip Curtis MD LABORATORY Final Result [facility] [address] [place] [address], [place] * (ABNORMAL) URINALYSIS AUTO DIP (02/22/2024) COLOR (U) RED(A) YELLOW [facility] TRANSPARENCY TURBID(A) CLEAR [facility] GLUCOSE (U) NEGATIVE NEGATIVE MG/DL [facility] BILIRUBIN (U) NEGATIVE NEGATIVE [facility] KETONES MG/DL (U) NEGATIVE NEGATIVE MG/DL [facility] SPECIFIC GRAVITY (U) 1.020 1.001 - 1.035 [facility] BLOOD (U) LARGE (Non Hemolyzed, Intact, About 250 rbc/uL)(A) NEGATIVE [facility] U PH 7.0 5.0 - 9.0 [facility] PROTEIN (U) 2+ (100)(A) NEGATIVE mg/dL [facility] UROBILINOGEN 0.2 0.2 - 1.0 EU/dL = mg/dL [facility] NITRITES NEGATIVE NEGATIVE MG/DL [facility] LEUKOCYTES (U) TRACE(A) NEGATIVE MG-SO [facility] URINE SPECIMEN OBTAINED BY CLEAN CATCH PROCEDURE / Unknown 02/22/2024 us Phillip Curtis MD URINE ORDERABLES Final Result -[place] [id number] [place] [address], [place] * PROCEDURE GENERIC (SCAN ORDER) (01/08/2024) 01/08/2024 us [facility] Scanned SCANNING Final Resu lt * BONE DENSITY GENERIC (SCAN ORDER) (11/12/2023) Anatomical Region Laterality Modality Other 11/12/2023 us [facility] Scanned SCANNING Final Resu lt * MAMMOGRAM GENERIC (SCAN ORDER) (11/12/2023) Anatomical Region Laterality Modality Other 11/12/2023 us [facility] Scanned SCANNING Final Resu lt * HEPATITIS C ANTIBODY (05/26/2023 12:01 PM DRAWER HARDWARE WORKER) HEPATITIS C AB NON-REACTI VE NON-REACT [facility] 05/26/2023 10:23 PM DRAWER HARDWARE WORKER [facility] Comment: ANTIBODIES TO HCV NOT DETECTED. DOES NOT EXCLUDE THE POSSIBILITY OF EXPOSURE TO HCV. 05/26/2023 12:0 1 PM DRAWER HARDWARE WORKER Sanket Waldron DO LABORATORY Final Re sult [facility] [address] [place] [address], [phone] from Last 3 Months or Most Recently Relevant to Health Maintenance Insurance [employer] Care Teams Script Reader Relationship Specialty Start Date End Date Sanket Waldron DO [address] [place] [phone] PCP - General FAMILY PRACTICE 05/26/23
--- OUTSIDE RECORDS SUMMARY | 2024-04-01 11:58 | XMS_ITS | Referral Summary ---
Author Organization [facility] Address [address] [facility] [place] [address] Care Team Providers Care Candy Maker Name Role Phone Unavailable Primary Care Provider Unavailabl e Source Comments [facility],non-owned Affiliates and Associated Physician Practices is amultiple site organization consisting of ambulatory clinics and hospital sitesin [place], [place], [place] and [place]. This disclosure is being madepursuant to the Care Everywhere program and may not contain all information available regarding this patient. Last updated 18.[facility] Encounters Date Type Department Care Team Description 01/08/2024 Lab Requisition [facility] - DermPath Lab [address] [place] [phone] Jamilah Garzon PA Neoplasm of uncertain behavior [...] CDT) Case Report Dermatopathology Report ? Case: [id number] ? Authorizing Provider: ??Jamilah Garzon PA ? [...] characteristic determined by the Dermatopathology Laboratory at [facility], directed by Dr. Thaddeus Souza. These tests need not be, and therefore are not, approved by the [place] Food and Drug Administration. The tests are used for clinical purposes. Billing Codes Specimen Charges Stain Charges 38917 1 74342 [id number] 17445 1 1 1 4 3:08 PM CDT DERMATOPATHOLOGY LABORATORY Embedded Images 3:08 PM CDT DERMATOPATHOLOGY LABORATORY Pathology/Cytolog y TISSUE SPECIMEN FROM SKIN / Unknown 01/08/2024 01/11/2024 11:17 AM CDT [facility] - PATHOLOGY/CYT OLOGY ORDERABLES DERMATOPATHOLOGY LABORATORY [facility] - Department of Dermatology [facility] [address] [place] [address], [address] [phone] from Last 3 Months Yessy Donaldson Personal/Family Self 1955
--- OUTSIDE RECORDS SUMMARY | 2024-04-01 11:58 | XMS_ITS | Encounter Summary ---
Author Organization [facility] Address [address] [place] [address]. [place], [place] [address] [place] [address] Care Team Providers Care Newspaper Delivery Counselor Name Role Phone Sanket Waldron DO Primary [...] st Contact Info) Description 05/30/2024 7:20 AM HEAT TREAT TECHNICIAN Laboratory Only [facility] Family [facility] Internal Medicine [facility] [address] [place] [phone] Sanket Waldron DO [address] [place] [address] 06/06/2024 11:40 AM HEAT TREAT TECHNICIAN Office Visit [facility] Family & Internal Medicine - [address] [phone] Sanket Waldron DO [address] [place] [address] documented as of this encounter Visit Diagnoses Not on filedocumented in this encounter Additional Health Concerns Assessment Noted Time PHQ-9 Depression Total Score: 0 02/03/20 24 2:27 PM CDT documented as of this encounter Care Teams Newspaper Delivery Counselor Relationship Specialty Start Date End Date Sanket Waldron DO [address] [place] [phone] PCP - General FAMILY PRACTICE 05/26/23 documented as of this encounter
--- OUTSIDE RECORDS SUMMARY | 2024-04-01 11:58 | XMS_ITS | Encounter Summary ---
Author Organization [facility] Address [address] [place] [address]. [place], [place] [address] [place] [address] Care Team Providers Care Director Of Strategic Sourcing Name Role Phone Sanket Waldron DO Primary Care Provider + Reason for Visit * Reason Comments Hematuria Patient c/o gross he maturia starting Thursday Abdominal Pain X2 days Low Back Pain Patient has had low back pain, but note this is not unusual for her Encounter Details Date Type Department Care Team (Late st Contact Info) Description 02/22/2024 10:40 AM SHIPPING AND RECEIVING CLERK Office Visit [facility] Family & Internal Medicine [address] [address] Phillip Curtis MD [address] [place] [address] [phone] Hematuria (Patient c/o gross hematuria starting Thursday); [...] Comments Blood Pressure 128/70 02/22/2024 11:23 AM SHIPPING AND RECEIVING CLERK Pulse 71 02/22/2024 11:23 AM SHIPPING AND RECEIVING CLERK Temperature 36.5 ??C (97.7 ??F) 02/22/2024 11:[address] Respiratory Rate 16 02/22/2024 11:23 AM SHIPPING AND RECEIVING CLERK Oxygen Saturation 91% 02/22/2024 11:23 AM SHIPPING AND RECEIVING CLERK Inhaled Oxygen Concentration - - Weight 59.9 kg (132 lb 1.6 oz) 02/22/2024 11:23 AM SHIPPING AND RECEIVING CLERK Height 153.7 cm (5' 0.5 ) 02/22/2024 11:23 AM CS T Body Mass Index 25.37 02/22/2024 11:23 AM SHIPPING AND RECEIVING CLERK documented in this encounter Progress Notes * [...] Medical History: Diagnosis Date Arthritis 1986 Asthma ([facility]) 196 Bilateral carpal tunnel syndrome 05/26/2023 Bilateral [...] BACTERIA CULTURE PCP: PHILLIP CURTIS MD 02/22/2024 PING AND RECEIVING CLERK * Phillip Curtis MD - 02/22/2024 10:40 AM CST Labs reviewed with patient at the time of office visit. PING AND RECEIVING CLERK documented in this encounter Plan of Treatment Upcoming Encounters Date Type Department Care Team (Late st Contact Info) Description 05/30/2024 7:20 AM SHIPPING AND RECEIVING CLERK Laboratory Only [facility] Family & Internal [address] [address] Sanket Waldron DO [address] [place] [address] 06/06/2024 11:40 AM SHIPPING AND RECEIVING CLERK Office Visit [facility] Family & Internal [address] [address] Sanket Waldron, DO [address] [place] [address] documented as of this encounter Procedures Procedure Name Priority Date/Time Associated Diagnosis Comments PROTHROMBIN TIME, VENOUS Routine 02/22/2024 11:59 AM SHIPPING AND RECEIVING CLERK Gross hematuria Elevated INR CBC W/DIFF AUTOMATED Routine 02/22/2024 11:59 AM SHIPPING AND RECEIVING CLERK Gross hematuria VENIPUNC ARM DRAW Routine 02/22/2024 11: 57 AM SHIPPING AND RECEIVING CLERK Gross hematuria Elevated INR URINALYSIS MICRO ONLY Routine 02/22/2024 11:13 AM SHIPPING AND RECEIVING CLERK Gross hematuria URINE BACTERIA CULTURE Routine 02/22/2024 11:08 AM SHIPPING AND RECEIVING CLERK Gross hematuria PROTHROMBIN TIME, FINGERSTICK Routine 02/22/2024 Gross hematuria URINALYSIS AUTO DIP Routine 02/22/2024 Gross hematuria documented in this encounter Results * (ABNORMAL) PROTIME/INR, VENOUS (02/22/2024 11:59 AM SHIPPING AND RECEIVING CLERK) Pathologist [facility] PROTIME 37.9(H) 9.3 - 11.6 SEC 02/22/2024 3:10 PM SHIPPING AND RECEIVING CLERK [facility] INR 4.0(H) 0.9 - 1.1 02/22/2024 3:10 PM SHIPPING AND RECEIVING CLERK [facility] Comment: TREATMENT OR PROPHYLAXIS AGAINST: ?? THERAPEUTIC RANGE (INR): ?VENOUS THROMBOSIS ? 2.0-3.0 ?PULMONARY EMBOLUS ? 2.0-3.0 ?? MECHANICAL PROSTHETIC VALVES ? 2.5-3.5 02/22/2024 11:5 9 AM SHIPPING AND RECEIVING CLERK us Phillip Curtis MD LABORATORY Final Result Performing Organization Address [facility]/State/[facility] Co de Phone Number [facility] [address] [place] [address], * (ABNORMAL) CBC W/DIFF AUTOMATED (02/22/2024 11:59 AM SHIPPING AND RECEIVING CLERK) Pathologist [facility] WBC 6.85 4.00 - 10.80 x10'3/uL 02/22/2024 3:12 PM SHIPPING AND RECEIVING CLERK [facility] RBC 4.12 4.10 - 5.40 x10'6/uL 02/22/2024 3:12 PM SHIPPING AND RECEIVING CLERK [facility] HGB 13.4 12.0 - 16.0 G/DL 02/22/2024 3:12 PM [facility] HCT 39.7 36.0 - 47.0 % 02/22/2024 3:12 PM [facility] MCV 96.4 78.0 - 100.0 FL 02/22/2024 3:12 PM [facility] MCH 32.5(H) 27.0 - 31.0 PG 02/22/2024 3:12 PM [facility] MCHC 33.8 33.0 - 36.0 G/DL 02/22/2024 3:12 PM [facility] RDW 12.8 11.5 - 14.5 % 02/22/2024 3:12 PM [facility] PLT 234 150 - 350 x10'3/uL 02/22/2024 3:12 PM [facility] MPV 11.2(H) 7.4 - 10.4 FL 02/22/2024 3:12 PM [facility] DIFFERENTIAL TYPE AUTOMATED DIFFERENTIAL 02/22/2024 3:12 PM [facility] NEUTROPHILS % 60.0 % 02/22/2024 3:12 PM [facility] LYMPHOCYTES % 26.3 % 02/22/2024 3:12 PM [facility] MONOCYTES % 10.7 % 02/22/2024 3:12 PM [facility] EOSINOPHILS % 2.2 % 02/22/2024 3:12 PM [facility] BASOPHILS % 0.7 % 02/22/2024 3:12 PM [facility] IMMATURE GRANS % 0.1 % 02/22/2024 3:12 PM [facility] ABS. NEUTROPHILS 4.11 1.60 - 8.30 x10'3/uL 02/22/2024 3:12 PM [facility] ABS. LYMPHOCYTES 1.80 0.80 - 4.70 x10'3/uL 02/22/2024 3:12 PM SHIPPING AND RECEIVING CLERK [facility] ABS. MONOCYTES 0.73 0.00 - 1.50 x10'3/uL 02/22/2024 3:12 PM SHIPPING AND RECEIVING CLERK [facility] ABS. EOSINOPHILS 0.15 0.00 - 0.40 x10'3/uL 02/22/2024 3:12 PM SHIPPING AND RECEIVING CLERK [facility] ABS. BASOPHILS 0.05 0.00 - 0.20 x10'3/uL 02/22/2024 3:12 PM SHIPPING AND RECEIVING CLERK [facility] ABS. IMMATURE GRANULOCYTES 0.01 0.00 - 0.03 x10'3/uL 02/22/2024 3:12 PM SHIPPING AND RECEIVING CLERK [facility] 02/22/2024 11:5 9 AM SHIPPING AND RECEIVING CLERK Phillip Curtis MD LABORATORY Final Result Performing Organization Address City/[facility]/ZIP Co de Phone Number [facility] [address] [place] [address], * (ABNORMAL) URINALYSIS MICRO ONLY (02/22/2024 11:13 AM SHIPPING AND RECEIVING CLERK) RBC/HPF PACKED(A) 0 - 3 /HPF 02/22/2024 3:06 PM SHIPPING AND RECEIVING CLERK [facility] WBC/HPF 0-3 0 - 3 /HPF 02/22/2024 3:06 PM SHIPPING AND RECEIVING CLERK [facility] EPI/HPF 0-3 /HPF 02/22/2024 3:06 PM SHIPPING AND RECEIVING CLERK [facility] BACTERIA (U) TRACE(A) NONE SEEN 02/22/2024 3:06 PM SHIPPING AND RECEIVING CLERK [facility] URINE SPECIMEN OBTAINED BY CLEAN CATCH PROCEDURE / Unknown 02/22/2024 11:13 AM SHIPPING AND RECEIVING CLERK us Phillip Curtis MD URINE ORDERABLES Final Result Performing Organization Address City/[facility]/ZIP Co de Phone Number [facility] MENDE[facility], LAUREL [address] [facility] [place] [address], * URINE BACTERIA CULTURE (02/22/2024 11:08 AM SHIPPING AND RECEIVING CLERK) CULTURE RESULT [facility] [place] Comment: ??CULTURE, URINE, ROUTINE ?Micro Number: ?[id number] ??Test Status: ? Final ??Specimen Source: ?? [...] CATCH PROCEDURE / Unknown 02/22/2024 11:08 AM SHIPPING AND RECEIVING CLERK 02/23/2024 1:04 AM SHIPPING AND RECEIVING CLERK Narrative Resulting Agency Comment Performing Organization Information: ?Site ID: [id number] ?Name: [facility] ?Address: [facility] [place] [address] ?Director: Adilson Hameed Phillip Curtis MD MICROBIOLOGY - GENERAL ORDERAB LES Final Result [facility] [place] [address] [place] [address], [place] * PROTIME/INR, FINGERSTICK (02/22/2024) INR WHOLE BLOOD 4.50 [facility] Comment:Venous drawn 02/22/2024 us Phillip Curtis MD LABORATORY Final Result Performing Organization Address [facility]/[place] [address], * (ABNORMAL) URINALYSIS AUTO DIP (02/22/2024) COLOR (U) RED(A) YELLOW [facility] TRANSPARENCY TURBID(A) CLEAR [facility] GLUCOSE (U) NEGATIVE NEGATIVE MG/DL [facility] BILIRUBIN (U) NEGATIVE NEGATIVE [facility] KETONES MG/DL (U) NEGATIVE NEGATIVE MG/DL [facility] SPECIFIC GRAVITY (U) 1.020 1.001 - 1.035 [facility] BLOOD (U) LARGE (Non Hemolyzed, Intact, About 250 rbc/uL)(A) NEGATIVE [facility] U PH 7.0 5.0 - 9.0 [facility] PROTEIN (U) 2+ (100)(A) NEGATIVE mg/dL [facility] UROBILINOGEN 0.2 0.2 - 1.0 EU/dL = mg/dL [facility] NITRITES NEGATIVE NEGATIVE MG/DL [facility] LEUKOCYTES (U) TRACE(A) NEGATIVE [facility] URINE SPECIMEN OBTAINED BY CLEAN CATCH PROCEDURE / Unknown 02/22/2024 us Phillip Curtis MD URINE ORDERABLES Final Result Performing Organization Address [facility]/[place] [address], [place] documented in this encounter Visit Diagnoses Diagnosis Acute cystitis with hematuria- Primary Acute cystitis Gross hematuria Elevated INR Abnormal coagulation profile documented in this encounter Additional Health Concerns Assessment Noted Time PHQ-9 Depression Total Score: 0 02/03/20 24 2:27 PM CDT documented as of this encounter Care Teams Director Of Strategic Sourcing Relationship Specialty Start Date End Date Sanket Waldron DO [address] [place] [address] PCP - General FAMILY PRACTICE 05/26/23 documented as of this encounter
--- OUTSIDE RECORDS SUMMARY | 2024-04-01 11:58 | XMS_ITS | Encounter Summary ---
Author Organization [facility] Address [address] [place] [address]. [place], [place] [address] [place] [address] Care Team Providers Care Polisher Implant Name Role Phone Sanket Waldron Yuan THOMPSON [...] ( Contact Info) Description 05/30/2024 7:20 AM AIR HOSE COUPLER Laboratory Only [facility] Family & Internal Medicine [address] [address] Sanket Waldron DO [address] [place] [address] 06/06/2024 11:40 AM AIR HOSE COUPLER Office Visit [facility] Family & Internal Medicine - [place] [address] [place] [address] Sanket Waldron DO [address] [place] [address] documented as of this encounter Procedures Procedure [...] documented as of this encounter Care Teams Polisher Implant Relationship Specialty Start Date End Date Sanket Waldron DO [address] [place] [address] PCP - General FAMILY PRACTICE 05/26/23 documented as of this encounter
--- OUTSIDE RECORDS SUMMARY | 2024-04-01 11:58 | XMS_ITS | Encounter Summary ---
Author Organization [facility] Address [address] [place] [address]. [place], [place] [address] [place] [address] Care Team Providers Care Refinish Technician Name Role Phone Sanket Waldron DO [...] OFFICE/OUTPT VISIT,EST,LEVL V Sanket Waldron, DO [address] [place] [address] Phone: tel: fax: Yasmani Keith MD [address] [place] [address] Phone: tel: fax: Referral ID Status Reason Start Date Expiration Date Visits Requested Visits Authorized [id number] Authorized Specialty Services 01/18/2024 08/10/2024 12 12 Scheduling Instructions Forefront dermatology Treatment date range:within the next 90 days. DX code: C44.319 CPT codes needed: 23986 x1 visit 99703 x25 visit 05717 x1 visit 82688 x2 visits 12170 x2 visits 76803 x4 visits 84345 x25 visits 36605 x5 visits G6001 x25 visits 05430 x5 visits Please fax to [phone] NG ROOM COORDINATOR Reason for Visit * Reason Onset Date Comments Referral 02/19/2024 Encounter Details Date Type Department Care Team (Late st Contact Info) Description 02/19/2024 Telephone [facility] Family & Internal Medicine [facility] [address] [place] [address] Sanket Waldron DO [address] [place] [address] Referral Social History Tobacco Use Types Packs/Day [...] days. DX code: C44.319 CPT codes needed: 49320 x1 visit 43828 x25 visit 82581 x1 visit 73185 x2 visits 25960 x2 visits 65684 x4 visits 04362 x25 visits 73744 x5 visits G6001 x25 visits 92076 x5 visits Please fax to [phone] NG ROOM COORDINATOR documented in this encounter Plan of Treatment Upcoming Encounters Date Type Department Care Team (Late st Contact Info) Description 05/30/2024 7:20 AM DINING ROOM COORDINATOR Laboratory Only [facility] Family & Internal [address] [address] Sanket Waldron, [address] [place] [address] 06/06/2024 11:40 AM DINING ROOM COORDINATOR Office Visit [facility] Internal [address] [address] Sanket Waldron, [address] [place] [address] Scheduled Referrals Name Type Priority Associated Diagnoses [...] documented as of this encounter Care Teams Refinish Technician Relationship Specialty Start Date End Date Sanket Waldron DO [address] [place] [address] PCP - General FAMILY PRACTICE 05/26/23 documented as of this encounter
--- OUTSIDE RECORDS SUMMARY | 2024-04-01 11:58 | XMS_ITS | Encounter Summary ---
Author Organization [facility] Address [address] [facility] [place] [address] Care Team Providers Care Trench Trimmer Fine Name Role Phone Unavailable Primary Care Provider Unavailabl e Encounter Details Date Type Department Care Team (Late st Contact Info) Description 01/08/2024 Lab Requisition [facility] - DermPath Lab [address] [facility], [place] [address] Jamilah Garzon PA [address] [place] [address] Neoplasm of uncertain behavior of [...] CDT) Case Report Dermatopathology Report ? Case: [id number] ? Authorizing Provider: ??Jamilah Garzon PA ? [...] determined by the Dermatopathology Laboratory at [facility], directed by Dr. Thaddeus Souza. These tests need not be, and therefore are not, approved by the [place] Food and Drug Administration. The tests are used for clinical purposes. Billing Codes Specimen Charges Stain Charges 76024 1 31986 80436 50784 1 1 1 4 3:08 PM CDT DERMATOPATHOLOGY LABORATORY Embedded Images 3:08 PM CDT DERMATOPATHOLOGY LABORATORY Pathology/Cytolog y TISSUE SPECIMEN FROM SKIN / Unknown 01/08/2024 01/11/2024 11:17 AM CDT [facility] - PATHOLOGY/CYT OLOGY ORDERABLES DERMATOPATHOLOGY LABORATORY [facility] - Department of Dermatology [address], [address] [phone] documented in this encounter Visit Diagnoses Diagnosis Neoplasm of uncertain behavior of skin documented in this encounter
--- OUTSIDE RECORDS SUMMARY | 2024-04-01 11:58 | XMS_ITS | Clinical Summary ---
Author Organization [facility] Address [address] [facility] [place] [address] Care Team Providers Care Midlevel Provider Name Role Phone Unavailable Primary Care Provider Unavailabl e Source Comments [facility],non-owned Affiliates and Associated Physician Practices is amultiple site organization consisting of ambulatory clinics and hospital sitesin [place], [place], [place]. This disclosure is being madepursuant to the Care Everywhere program and may not contain all information available regarding this patient. Last updated 18.[facility] Encounters Date Type Department Care Team Description 01/08/2024 Lab Requisition [facility] - DermPath Lab [address] [place] [address] Jamilah Garzon PA Neoplasm of uncertain behavior [...] CDT) Case Report Dermatopathology Report ? Case: [id number] ? Authorizing Provider: ??Jamilah Garzon PA ? [...] determined by the Dermatopathology Laboratory at [facility], directed by Dr. Thaddeus Souza. These tests need not be, and therefore are not, approved by the [place] Food and Drug Administration. The tests are used for clinical purposes. Billing Codes Specimen Charges Stain Charges 94740 1 15175 53239 48646 1 1 1 4 3:08 PM CDT DERMATOPATHOLOGY LABORATORY Embedded Images 4 3:08 PM CDT DERMATOPATHOLOGY LABORATORY Pathology/Cytolog y TISSUE SPECIMEN FROM SKIN / Unknown 01/08/2024 01/11/2024 11:17 AM CDT [facility] - PATHOLOGY/CYT OLOGY ORDERABLES DERMATOPATHOLOGY LABORATORY [facility] - Department of Dermatology [address] [phone] from Last 3 Months Yessy Donaldson Personal/Family Self 1955
--- OUTSIDE RECORDS SUMMARY | 2024-04-01 11:58 | XMS_ITS | Encounter Summary ---
Author Organization [facility] Address [address] [place] [address]. [place] [address] [place] [address] Care Team Providers Care Edging Machine Catcher Name Role Phone Peterson Colindres DO Primary Care Provider + Reason for Visit * Reason Onset Date Comments Referral 01/18/2024 Encounter Details Date Type Department Care Team (Late st Contact Info) Description 01/18/2024 Telephone [facility] Family & Internal Medicine [facility] [address] [place] [address] Peterson Colindres DO [address] [place] [address] Referral Social History Tobacco Use [...] on: 03/08/2024 11:31 AM Modules accepted: Orders R PIE * Veronica Harmon MA - 01/18/2024 4:59 [...] in FAMILY PRACTICE was on: 12/04/[address] [facility] Future appointment scheduled: Future Appointments Date Time Provider Department Center 05/30/2024 7:[address] [facility] 06/06/2024 11:40 AM Peterson Colindres DO [facility] documented in this encounter Plan of Treatment Upcoming Encounters Date Type Department Care Team (Late st Contact Info) Description 05/30/2024 7:20 AM BAKER PIE Laboratory Only [facility] Family & Internal Medicine - [place] [address] [place] [address] Peterson Colindres DO [address] [place] [address] 06/06/2024 11:40 AM BAKER PIE Office Visit [facility] Family & Internal Medicine - [address] [address] Peterson Colindres DO [address] [place] [address] documented as of this encounter Visit Diagnoses Diagnosis Basal cell carcinoma- Primary Basal cell carcinoma of skin, site unspecified documented in this encounter Care Teams Edging Machine Catcher Relationship Specialty Start Date End Date Peterson Colindres DO [address] [place] [address] PCP - General FAMILY PRACTICE 05/26/23 documented as of this encounter
--- OUTSIDE RECORDS SUMMARY | 2024-04-01 11:58 | XMS_ITS | Encounter Summary ---
Author Organization [facility] Address [address] [place] [address]. [place] [address] [place] [address] Care Team Providers Care Freezer Person Name Role Phone Snaket Waldron DO Primary Care Provider + Reason for Visit * Reason Onset Date Comments Information 02/22/2024 Encounter Details Date Type Department Care Team (Late st Contact Info) Description 02/22/[address] [facility] Family & Internal Medicine [facility] [address] [place] [address] Sanket Waldron DO [address] [place] [address] Information Social History Tobacco Use [...] of recommendation and v/u. 02/22/2024 3:47 PM R MECHANIC * Phillip Curtis MD - 02/22/2024 2:16 PM CST Aware of interaction, continue with Bactrim as prescribed. INR was elevated. R MECHANIC * Marilin Teixeira - 02/22/2024 11:54 AM CST Pharmacy called in stating pt is on warfarin and was sent out Bactrim. Pharmacy wanting to know if Provider wanted to change to something different as Warfarin could become less effective while pt nargis Bactrim. Please advise. R MECHANIC documented in this encounter Plan of Treatment Upcoming Encounters Date Type Department Care Team (Late st Contact Info) Description 05/30/2024 7:20 AM RADAR MECHANIC Laboratory Only [facility] Family & Internal [place] [address] [place] [address] Sanket Waldron DO [address] [place] [address] 06/06/2024 11:40 AM RADAR MECHANIC Office Visit [facility] Family & Internal [facility] [address] [place] [address] Sanket Waldron DO [address] [place] [address] documented as of this encounter Visit Diagnoses Not on filedocumented in this encounter Additional Health Concerns Assessment Noted Time PHQ-9 Depression Total Score: 0 10/23/20 24 2:27 PM CDT documented as of this encounter Care Teams Freezer Person Relationship Specialty Start Date End Date Sanket Waldron DO [address] [place] [address] PCP - General FAMILY PRACTICE 05/26/23 documented as of this encounter
--- OUTSIDE RECORDS SUMMARY | 2024-04-01 11:58 | XMS_ITS | Encounter Summary ---
Author Organization [facility] Address [address] [place] [address]. [place] [address] [place] [address] Care Team Providers Care Rn New Grad Name Role Phone Sanket Waldron DO Primary Care Provider + Reason for Referral * Consultation (Urgent) - New Request Specialty Diagnoses / Procedures Referred By Contac t Referred To Contact GASTROENTEROLOGY Diagnoses Black tarry stools Sanket Waldron DO [address] [place] [address] Phone: tel: fax: [facility] - [address], [address] [place] [address] Phone: tel: fax: Referral ID Status Reason Start Date Expiration Date V isits Requested Visits Authorized [id number] New Request 03/29/2024 04/30/2025 1 1 UTER EDUCATION PROFESSOR Encounter Details Date Type Department Care Team (Late st Contact Info) Description 03/28/[address] [facility] Family & Internal Medicine [facility] [address] [place] [phone] Sanket Waldron DO [address] [place], [place] [phone] ER visit 03/27/24 Social History Tobacco Use [...] the ED for epistaxis on Thursday at [facility]. Patient is currently on Warfarin. Her INR [...] labs done this morning and notify her field technician. Opportunitygiven for all questions to be answered, no further needs voiced at this time. LL-03/30/24 UTER EDUCATION PROFESSOR UTER EDUCATION PROFESSOR * Sanket Waldron DO - 03/28/2024 2:04 PM CST Please triage. Pt is on warfarin on last discussion. UTER EDUCATION PROFESSOR documented in this encounter Plan of Treatment Upcoming Encounters Date Type Department Care Team (Late st Contact Info) Description 05/30/2024 7:20 AM COMPUTER EDUCATION PROFESSOR Laboratory Only [facility] Family & Internal [address] [address] Sanket Waldron DO [address] [place] [address] 06/06/2024 11:40 AM COMPUTER EDUCATION PROFESSOR Office Visit [facility] Internal [address] [phone] Sanket Waldron DO [address] [place] [address] Scheduled Referrals Name Type Priority Associated Diagnoses Orde r Schedule Ambulatory referral to Gastroenterology ( [place]) Referral Routine Black tarry stools Ordered: 03/29/2024 documented as of this encounter Procedures Procedure Name Priority Date/Time Associated Diagnosis Comments CBC W/DIFF AUTOMATED Routine 03/30/2024 8:46 AM COMPUTER EDUCATION PROFESSOR Black tarry stools documented in this encounter Results * CBC W/DIFF AUTOMATED (03/30/2024 8:46 AM COMPUTER EDUCATION PROFESSOR) WBC 6.0 3.4 - 10.8 x10E3/uL [facility] [...] 0.1 x10E3/uL [facility] 1 03/30/2024 8:46 AM COMPUTER EDUCATION PROFESSOR 03/30/2024 Narrative [facility] - 03/31/2024 3:07 AM COMPUTER EDUCATION PROFESSOR Performed at: ??01 - [facility] [address] ??[id number] Schedule Supervisor: Patricio Viera PhD, Phone: ??[phone] us Sanket Waldron DO LABORATORY Final Re sult [facility] [address] [place] [address] [facility] 1 documented in this encounter Visit Diagnoses Diagnosis Black tarry stools- Primary Blood in stool documented in this encounter Additional Health Concerns Assessment Noted Time PHQ-9 Depression Total Score: 0 02/03/20 24 2:27 PM CDT documented as of this encounter Care Teams Rn New Grad Relationship Specialty Start Date End Date Sanket Waldron DO [address] [place] [address] PCP - General FAMILY PRACTICE 05/26/23 documented as of this encounter
--- OUTSIDE RECORDS SUMMARY | 2024-04-01 11:58 | XMS_ITS | Encounter Summary ---
Author Organization [facility] Address [address] [place] [address]. [place], [place] [address] [place] [address] Care Team Providers Care Waste Disposal Plant Operator Name Role Phone Sanket Waldron DO Primary Care Provider + Reason for Referral * Consultation (Urgent) - Authorized Specialty Diagnoses / Procedures Referred By Contac t Referred To Contact OTOLARYNGOLOGY Diagnoses Epistaxis Procedures OFFICE/OUTPATIENT NEW LOW MDM 30-44 MINUTES OFFICE/OUTPT VISIT,NEW,LEVL IV OFFICE/OUTPT VISIT,NEW,LEVL V OFFICE/OUTPT VISIT,EST,LEVL III OFFICE/OUTPT VISIT,EST,LEVL IV OFFICE/OUTPT VISIT,EST,LEVL V Sanket Waldron DO [address] [place] [address] Phone: tel: fax: Sky Nicole MD [address] [place] [address] Phone: tel: fax: Referral ID Status Reason Start Date Expiration Date V isits Requested Visits Authorized [id number] Authorized 03/30/2024 09/27/2024 6 6 Scheduling Instructions Patient has an appointment in 04/01/[address] Sky Nicole WARE ENGINEERING MANAGER Encounter Details Date Type Department Care Team (Late st Contact Info) Description 03/28/2024 SPO Medicalhart Message Enc [facility] Family & Internal Medicine [place] [address] [place] [address] Sanket Waldron DO [address] [place] [address] Referral for ENT Social History Tobacco Use [...] further needs voiced at this time. LL-03/30/24 WARE ENGINEERING MANAGER * Sanket Waldron DO - 03/28/2024 2:02 PM CST Needs referral placed as urgent. WARE ENGINEERING MANAGER documented in this encounter Plan of Treatment Upcoming Encounters Date Type Department Care Team (Late st Contact Info) Description 05/30/2024 7:20 AM SOFTWARE ENGINEERING MANAGER Laboratory Only [facility] Family & Internal Medicine [address] [place] [address] Sanket Waldron DO [address] [place] [address] 06/06/2024 11:40 AM SOFTWARE ENGINEERING MANAGER Office Visit [facility] Family & Internal Medicine - [place] [address] [place] [address] [place] [address] [place] [address] Scheduled Referrals Name Type Priority Associated Diagnoses Orde r Schedule Ambulatory referral to ENT Referral Routine Epistaxis Ordered: 03/30/2024 documented as of this encounter Visit Diagnoses Diagnosis Epistaxis- Primary documented in this encounter Additional Health Concerns Assessment Noted Time PHQ-9 Depression Total Score: 0 02/03/20 24 2:27 PM CDT documented as of this encounter Care Teams Waste Disposal Plant Operator Relationship Specialty Start Date End Date Sanket Waldron DO [address] [place] [address] PCP - General FAMILY PRACTICE 05/26/23 documented as of this encounter
--- OUTSIDE RECORDS SUMMARY | 2024-04-01 11:59 | XMS_ITS | Encounter Summary ---
Author Organization [facility] Address [address] [place] [address]. [place] [address] [place] [address] Care Team Providers Care Numerical Control Nesting Operator Name Role Phone Sanket Waldron DO [...] st Contact Info) Description 05/30/2024 7:20 AM AIR INTELLIGENCE OFFICER Laboratory Only [facility] Family & Internal Medicine [place] [address] [place] [address] Sanket Waldron DO [address] [place] [address] 06/06/2024 11:40 AM AIR INTELLIGENCE OFFICER Office Visit [facility] Family & Internal Medicine [address] [address] Sanket Waldron DO [address] [place] [address] documented as of this encounter Procedures Procedure Name Priority Date/Time Associated Diagnosis Comments OUTSIDE PT/INR (SCAN ORDER) 08/17/2023 OUTSIDE PT/INR (SCAN ORDER) 08/17/2023 documented in this encounter Results * OUTSIDE PT/INR (SCAN ORDER) (08/17/2023) 08/17/2023 [facility] Scanned SCANNING Final Resu lt * OUTSIDE PT/INR (SCAN ORDER) (08/17/2023) 08/17/2023 us [facility] Scanned SCANNING Final Resu lt documented in this encounter Visit Diagnoses Not on filedocumented in this encounter Care Teams Numerical Control Nesting Operator Relationship Specialty Start Date End Date Sanket Waldron DO [address] [place] [address] PCP - General FAMILY PRACTICE 05/26/23 documented as of this encounter
--- OUTSIDE RECORDS SUMMARY | 2024-04-01 11:59 | XMS_ITS | Encounter Summary ---
Author Organization [facility] Address [address] [place] [address]. [place] [address] [place] [address] Care Team Providers Care Heat Transfer Technician Name Role Phone Sanket Waldron DO [...] st Contact Info) Description 05/30/2024 7:20 AM FAMILY AND CONSUMER SCIENCE PROFESSOR Laboratory Only [facility] Family & Internal Medicine [place] [address] [place] [address] Sanket Waldron DO [address] [place] [address] 06/06/2024 11:40 AM FAMILY AND CONSUMER SCIENCE PROFESSOR Office Visit [facility] Family & Internal Medicine [address] [address] Sanket Waldron DO [address] [place] [address] documented as of this encounter Procedures Procedure Name Priority Date/Time Associated Diagnosis Comments OUTSIDE PT/INR (SCAN ORDER) 09/23/2023 documented in this encounter Results * OUTSIDE PT/INR (SCAN ORDER) (09/23/2023) 09/23/2023 [facility] Scanned SCANNING Final Resu lt documented in this encounter Visit Diagnoses Not on filedocumented in this encounter Care Teams Heat Transfer Technician Relationship Specialty Start Date End Date Sanket Waldron DO [address] [place] [address] PCP - General FAMILY PRACTICE 05/26/23 documented as of this encounter
--- OUTSIDE RECORDS SUMMARY | 2024-04-01 11:59 | XMS_ITS | Encounter Summary ---
Author Organization [facility] Address [address] [place] [address]. [place] [address] [place] [address] Care Team Providers Care Piping Design Specialist Name Role Phone Sanket Waldron DO Primary Care Provider + Encounter Details Date Type Department Care Team (Late st Contact Info) Description 07/16/2023 MyChart Message Enc [facility] Family & Internal [address] [phone] Sanket Waldron DO [address] [place] [address] Surgery Date Social History Tobacco [...] st Contact Info) Description 05/30/2024 7:20 AM MARINE ENGINEER Laboratory Only [facility] Family & Internal [address] [address] Sanket Waldron DO [address] [place] [address] 06/06/2024 11:40 AM MARINE ENGINEER Office Visit [facility] Family & Internal Medicine - [place] [address] [place] [address] Sanket Waldron DO [address] [place] [address] documented as of this encounter Visit Diagnoses Not on filedocumented in this encounter Care Teams Piping Design Specialist Relationship Specialty Start Date End Date Sanket Waldron DO [address] [place] [address] PCP - General FAMILY PRACTICE 05/26/23 documented as of this encounter
--- OUTSIDE RECORDS SUMMARY | 2024-04-01 11:59 | XMS_ITS | Encounter Summary ---
Author Organization [facility] Address [address] [place] [address]. [place], [place] [address] [place] [address] Care Team Providers Care Certified Phlebotomy Technician Name Role Phone Peterson Colindres DO Primary Care Provider + Reason for Visit * Reason Onset Date Comments Lab Order 11/12/2023 Encounter Details Date Type Department Care Team (Late st Contact Info) Description 11/12/2023 Telephone [facility] Family & Internal Medicine [facility] [address] [place] [phone] Peterson Colindres DO [address] [place] [address] Lab Order Social History Tobacco [...] st Contact Info) Description 05/30/2024 7:20 AM PHYSICAL METALLURGIST Laboratory Only [facility] Family & Internal [place] [address] [place] [address] Peterson Colindres DO [address] [place] [address] 06/06/2024 11:40 AM PHYSICAL METALLURGIST Office Visit [facility] Family & Internal [facility] [address] [place] [address] Peterson Colindres DO [address] [place] [address] documented as of this encounter Visit Diagnoses Not on filedocumented in this encounter Care Teams Certified Phlebotomy Technician Relationship Specialty Start Date End Date Peterson Colindres DO [address] [place] [address] PCP - General FAMILY PRACTICE 05/26/23 documented as of this encounter
--- OUTSIDE RECORDS SUMMARY | 2024-04-01 11:59 | XMS_ITS | Encounter Summary ---
Author Organization [facility] Address [address] [place] [address]. [place], [place] [address] [place] [address] Care Team Providers Care Patient Care Specialist Name Role Phone Peterson Colindres DO Primary [...] OFFICE/OUTPT VISIT,EST,LEVL V Peterson Colindres DO [address] [place] [address] Phone: tel: fax: [facility] [address] Phone: tel: fax: Referral ID Status Reason Start Date Expiration Date V isits Requested Visits Authorized [id number] Closed Physical Therapy 06/29/2023 12/30/2023 56 56 Scheduling Instructions Is this a new consult:Yes. 's name: [facility] Dr Adrien Camejo Specialty: PT Reason for referral (diagnosis): [id number] Appointment: 11/04/2023 Reason for Visit * Reason Onset Date Comments Referral 11/04/2023 Encounter Details Date Type Department Care Team (Late st Contact Info) Description 11/04/2023 Telephone [facility] Family & Internal Medicine - [place] [address] [place] [phone] Peterson Colindres DO [address] [place], [place] [phone] Referral Social History Tobacco Use Types Packs/Day [...] Camejo Specialty: PT Reason for referral (diagnosis): [id number] Appointment: 11/04/2023 Last office visit at this office: Last visit with PETERSON COLINDRES in FAMILY PRACTICE was on: 05/26/2023 in [facility] Future appointment scheduled: Future Appointments Date Time Provider Department Center 11/24/2023 1:00 PM Peterson Colindres DO [facility] Referral for the next 5 visits documented in this encounter Plan of Treatment Upcoming Encounters Date Type Department Care Team (Late st Contact Info) Description 05/30/2024 7:20 AM WINCHER Laboratory Only [facility] Family & Internal [place] [address] [place] [address] Peterson Colindres, DO [address] [place] [address] 06/06/2024 11:40 AM WINCHER Office Visit [facility] Family & Internal [place] [address] [place] [address] Peterson Colindres, [address] [place] [address] Scheduled Referrals Name Type Priority Associated Diagnoses [...] right documented in this encounter Care Teams Patient Care Specialist Relationship Specialty Start Date End Date Peterson Colindres DO [address] [place] [address] PCP - General FAMILY PRACTICE 05/26/23 documented as of this encounter
--- OUTSIDE RECORDS SUMMARY | 2024-04-01 11:59 | XMS_ITS | Encounter Summary ---
Author Organization [facility] Address [address] [place] [address]. [place] [address] [place] [address] Care Team Providers Care Np Name Role Phone Sanket Waldron DO Primary Care Provider + Reason for Visit * Reason Onset Date Comments Information 01/08/2024 Encounter Details Date Type Department Care Team (Late st Contact Info) Description 01/08/2024 Telephone [facility] Family & Internal Medicine [facility] [address] [place] [address] Sanket Waldron DO [address] [place] [address] Information Social History Tobacco Use [...] Therapy, pls call and discuss with Tenisha [phone]. * Marilin Teixeira - 01/08/2024 10:45 AM CDT [facility] called in stating for patients DOS 09/01/23- [employer] is refusing to pay as the referral was placed as office visit not outpatient Physical Therapy. Asking for referral to beupdated. Referral reference number. [id number] needs to state outpatient PT documented in this encounter Plan of Treatment Upcoming Encounters Date Type Department Care Team (Late st Contact Info) Description 05/30/2024 7:20 AM SENIOR INFORMATION SYSTEMS ARCHITECT Laboratory Only [facility] Family & Internal [facility] [address] [place] [address] Sanket Waldron, DO [address] [place] [address] 06/06/2024 11:40 AM SENIOR INFORMATION SYSTEMS ARCHITECT Office Visit [facility] Family & Internal [facility] [address] [place] [address] Sanket Waldron, DO [address] [place] [address] documented as of this encounter Visit Diagnoses Not on filedocumented in this encounter Care Teams Np Relationship Specialty Start Date End Date Sanket Waldron DO [address] [place] [address] PCP - General FAMILY PRACTICE 05/26/23 documented as of this encounter
--- OUTSIDE RECORDS SUMMARY | 2024-04-01 11:59 | XMS_ITS | Encounter Summary ---
Author Organization [facility] Address [address] [place] [address]. [place] [address] [place] [address] Care Team Providers Care Data Center Operator Name Role Phone Sanket Waldron DO [...] st Contact Info) Description 05/30/2024 7:20 AM IT MANAGER Laboratory Only [facility] Family & Internal Medicine [place] [address] [place] [address] Sanket Wadlron DO [address] [place] [address] 06/06/2024 11:40 AM IT MANAGER Office Visit [facility] Family & Internal Medicine [address] [address] Sanket Waldron DO [address] [place] [address] documented as of this encounter Procedures Procedure Name Priority Date/Time Associated Diagnosis Comments OUTSIDE PT/INR (SCAN ORDER) 09/18/2023 documented in this encounter Results * OUTSIDE PT/INR (SCAN ORDER) (09/18/2023) 09/18/2023 [facility] Scanned SCANNING Final Resu lt documented in this encounter Visit Diagnoses Not on filedocumented in this encounter Care Teams Data Center Operator Relationship Specialty Start Date End Date Sanket Waldron DO [address] [place] [address] PCP - General FAMILY PRACTICE 05/26/23 documented as of this encounter
--- OUTSIDE RECORDS SUMMARY | 2024-04-01 11:59 | XMS_ITS | Encounter Summary ---
Author Organization [facility] Address [address] [place] [address]. [place] [address] [place] [address] Care Team Providers Care Cotton Seed Culler Name Role Phone Sanket Waldron DO Primary [...] (Late Contact Info) Description 05/30/2024 7:20 AM ZOO CARETAKER Laboratory Only [facility] Family & Internal Medicine [facility] [address] [place] [address] Sanket Waldron, DO [address] [place] [address] 06/06/2024 11:40 AM ZOO CARETAKER Office Visit [facility] Family & Internal Medicine [facility] [address] [place] [address] Sanket Waldron, DO [address] [place] [address] documented as of this encounter Procedures Procedure Name Priority Date/Time Associated Diagnosis Comments MRI GENERIC 01/05/2020 MRI GENERIC 01/05/2020 documented in this encounter Results * MRI GENERIC (01/05/2020) Anatomical Region Laterality Modality Other 01/05/2020 us [facility] Scanned SCANNING Final Resu lt * MRI GENERIC (01/05/2020) Anatomical Region Laterality Modality Other 01/05/2020 us [facility] Scanned SCANNING Final Resu lt documented in this encounter Visit Diagnoses Not on filedocumented in this encounter Care Teams Cotton Seed Culler Relationship Specialty Start Date End Date Sanket Waldron DO [address] [place] [address] PCP - General FAMILY PRACTICE 05/26/23 documented as of this encounter
--- OUTSIDE RECORDS SUMMARY | 2024-04-01 11:59 | XMS_ITS | Encounter Summary ---
Author Organization [facility] Address [address] [place] [address]. [place] [address] [place] [address] Care Team Providers Care Staff Nuclear Weapons Officer Name Role Phone Sanket Waldron DO [...] st Contact Info) Description 05/30/2024 7:20 AM CHANGE ATTENDANT Laboratory Only [facility] Family & Internal Medicine [place] [address] [place] [address] Sanket Waldron DO [address] [place] [address] 06/06/2024 11:40 AM CHANGE ATTENDANT Office Visit [facility] Family & Internal Medicine [address] [address] Sanket Waldron DO [address] [place] [address] documented as of this encounter Procedures Procedure Name Priority Date/Time Associated Diagnosis Comments OUTSIDE PT/INR (SCAN ORDER) 07/20/2023 OUTSIDE PT/INR (SCAN ORDER) 07/20/2023 documented in this encounter Results * OUTSIDE PT/INR (SCAN ORDER) (07/20/2023) 07/20/2023 [facility] Scanned SCANNING Final Resu lt * OUTSIDE PT/INR (SCAN ORDER) (07/20/2023) 07/20/2023 [facility] Scanned SCANNING Final Resu lt documented in this encounter Visit Diagnoses Not on filedocumented in this encounter Care Teams Staff Nuclear Weapons Officer Relationship Specialty Start Date End Date Sanket Waldron DO [address] [place] [address] PCP - General FAMILY PRACTICE 05/26/23 documented as of this encounter
--- OUTSIDE RECORDS SUMMARY | 2024-04-01 11:59 | XMS_ITS | Encounter Summary ---
Author Organization [facility] Address [address] [place] [address]. [place], [place] [address] [place] [address] Care Team Providers Care Aerial Tram Operator Name Role Phone Unavailable Primary Care Provider Unavailabl e Encounter Details Date Type Department Care Team (Late st Contact Info) Description 07/05/1997 [place] [address] , Generic Conversion, Social History Tobacco Use [...] st Contact Info) Description 05/30/2024 7:20 AM CHECK AIRMAN Laboratory Only [facility] Family & Internal [address] [address] Sanket Waldron DO [address] [place] [address] 06/06/2024 11:40 AM CHECK AIRMAN Office Visit [facility] Family & Internal [facility] [address] [place] [address] Sanket Waldron, DO [address] [place] [address] documented as of this encounter Visit Diagnoses Not on filedocumented in this encounter
--- OUTSIDE RECORDS SUMMARY | 2024-04-01 11:59 | XMS_ITS | Encounter Summary ---
Author Organization [facility] Address [address] [place] [address]. [place], [place] [address] [place] [address] Care Team Providers Care Diving Judge Name Role Phone Sanket Waldron DO Primary [...] st Contact Info) Description 05/30/2024 7:20 AM GAS LEAK TESTER Laboratory Only [facility] Family & Internal Medicine [facility] [address] [place] [address] Sanket Waldron DO [address] [place] [address] 06/06/2024 11:40 AM GAS LEAK TESTER Office Visit [facility] Family & Internal Medicine [facility] [address] [place] [address] Sanket Waldron DO [address] [place] [address] documented as of this encounter Visit Diagnoses Not on filedocumented in this encounter Care Teams Diving Judge Relationship Specialty Start Date End Date Sanket Waldron DO [address] [place] [address] PCP - General FAMILY PRACTICE 05/26/23 documented as of this encounter
--- OUTSIDE RECORDS SUMMARY | 2024-04-01 11:59 | XMS_ITS | Encounter Summary ---
Author Organization [facility] Address [address] [place] [address]. [place], [place] [address] [place] [address] Care Team Providers Care Benefits Specialist Name Role Phone Sanket Waldron DO Primary Care Provider + Reason for Visit * Reason Onset Date Comments Results 06/03/2023 Encounter Details Date Type Department Care Team (Late st Contact Info) Description 06/03/2023 Telephone [facility] Medical Group Family & Internal Medicine [facility] [address] [place] [address] Sanket Waldron DO [address] [place] [address] Results Social History Tobacco Use [...] Waldron DO sent at 05/30/2023 9:45 PM FOREST EXAMINER ----- Pt's WBC is mildly increased; will need to recheck this in 2-3 months. Labs are otherwise within acceptable. Repeat CBC in 2-3 months and other labs can be repeated in [address] EXAMINER documented in this encounter Plan of Treatment Upcoming Encounters Date Type Department Care Team (Late st Contact Info) Description 05/30/2024 7:20 AM FOREST EXAMINER Laboratory Only [facility] & Internal [address] [address] Sanket Waldron DO [address] [place] [address] 06/06/2024 11:40 AM FOREST EXAMINER Office Visit [facility] Family Internal [address] [address] Sanket Waldron DO [address] [place] [address] documented as of this encounter Results * (ABNORMAL) CBC W/DIFF AUTOMATED (08/04/2023 10:18 AM CDT) WBC 6.36 4.00 - 10.80 x10'3/uL 08/04/2023 3:04 PM CDT [facility] RBC 4.39 4.10 - 5.40 x10'6/uL 08/04/2023 3:04 PM CDT [facility] HGB 13.4 12.0 - 16.0 G/DL 08/04/2023 3:04 PM CDT -[facility] HCT 41.9 36.0 - 47.0 % 08/04/2023 3:04 PM CDT [facility] MCV 95.4 78.0 - 100.0 FL 08/04/2023 3:04 PM CDT [facility] MCH 30.5 27.0 - 31.0 PG 08/04/2023 3:04 PM CDT [facility] MCHC 32.0(L) 33.0 - 36.0 G/DL 08/04/2023 3:04 PM CDT [facility] RDW 13.2 11.5 - 14.5 % 08/04/2023 3:04 PM CDT [facility] PLT 297 150 - 350 x10'3/uL 08/04/2023 3:04 PM CDT [facility] MPV 10.9(H) 7.4 - 10.4 FL 08/04/2023 3:04 PM CDT [facility] DIFFERENTIAL TYPE AUTOMATED DIFFERENTIAL 08/04/2023 3:04 PM CDT [facility] NEUTROPHILS % 57.9 % 08/04/2023 3:04 PM CDT [facility] LYMPHOCYTES % 26.6 % 08/04/2023 3:04 PM CDT [facility] MONOCYTES % 10.1 % 08/04/2023 3:04 PM CDT [facility] EOSINOPHILS % 4.6 % 08/04/2023 3:04 PM CDT [facility] BASOPHILS % 0.8 % 08/04/2023 3:04 PM CDT [facility] IMMATURE GRANS % 0.0 % 08/04/2023 3:04 PM CDT [facility] ABS. NEUTROPHILS 3.69 1.60 - 8.30 x10'3/uL 08/04/2023 3:04 PM CDT [facility] ABS. LYMPHOCYTES 1.69 0.80 - 4.70 x10'3/uL 08/04/2023 3:04 PM CDT -[facility] ABS. MONOCYTES 0.64 0.00 - 1.50 x10'3/uL 08/04/2023 3:04 PM CDT -[facility] ABS. EOSINOPHILS 0.29 0.00 - 0.40 x10'3/uL 08/04/2023 3:04 PM CDT [facility] ABS. BASOPHILS 0.05 0.00 - 0.20 x10'3/uL 08/04/2023 3:04 PM CDT -[facility] ABS. IMMATURE GRANULOCYTES 0.00 0.00 - 0.03 x10'3/uL 08/04/2023 3:04 PM CDT -[facility] 08/04/2023 10:1 8 AM CDT Sanket Waldron DO LABORATORY Final Re sult -[facility] [address] [place] [address], documented in this encounter Visit Diagnoses Diagnosis Elevated WBC count- Primary Leukocytosis, unspecified documented in this encounter Care Teams Benefits Specialist Relationship Specialty Start Date End Date Sanket Waldron DO [address] [place] [address] PCP - General FAMILY PRACTICE 05/26/23 documented as of this encounter
--- OUTSIDE RECORDS SUMMARY | 2024-04-01 11:59 | XMS_ITS | Encounter Summary ---
Author Organization [facility] Address [address] [place] [address]. [place] [address] [place] [address] Care Team Providers Care Salt Refiner Name Role Phone Sanket Waldron DO Primary [...] st Contact Info) Description 05/30/2024 7:20 AM TRACK LINER OPERATOR Laboratory Only [facility] Family & Internal Medicine [place] [address] [place] [address] Sanket Waldron DO [address] [place] [address] 06/06/2024 11:40 AM TRACK LINER OPERATOR Office Visit [facility] Family & Internal Medicine [address] [address] Sanket Waldron DO [address] [place] [address] documented as of this encounter Procedures Procedure Name Priority Date/Time Associated Diagnosis Comments OUTSIDE PT/INR (SCAN ORDER) 09/14/2023 documented in this encounter Results * OUTSIDE PT/INR (SCAN ORDER) (09/14/2023) 09/14/2023 [facility] Scanned SCANNING Final Resu lt documented in this encounter Visit Diagnoses Not on filedocumented in this encounter Care Teams Salt Refiner Relationship Specialty Start Date End Date Sanket Waldron DO [address] [place] [address] PCP - General FAMILY PRACTICE 05/26/23 documented as of this encounter
--- OUTSIDE RECORDS SUMMARY | 2024-04-01 11:59 | XMS_ITS | Encounter Summary ---
Author Organization [facility] Address [address] [place] [address]. [place] [address] [place] [address] Care Team Providers Care Forensic Manager Name Role Phone Sanket Waldron DO [...] st Contact Info) Description 05/30/2024 7:20 AM GEOLOGICAL DRAFTER Laboratory Only [facility] Family & Internal Medicine [place] [address] [place] [address] Sanket Waldron DO [address] [place] [address] 06/06/2024 11:40 AM GEOLOGICAL DRAFTER Office Visit [facility] Family & Internal Medicine [address] [address] Sanket Waldron DO [address] [place] [address] documented as of this encounter Procedures Procedure Name Priority Date/Time Associated Diagnosis Comments OUTSIDE PT/INR (SCAN ORDER) 09/10/2023 documented in this encounter Results * OUTSIDE PT/INR (SCAN ORDER) (09/10/2023) 09/10/2023 [facility] Scanned SCANNING Final Resu lt documented in this encounter Visit Diagnoses Not on filedocumented in this encounter Care Teams Forensic Manager Relationship Specialty Start Date End Date Sanket Waldron DO [address] [place] [address] PCP - General FAMILY PRACTICE 05/26/23 documented as of this encounter
--- OUTSIDE RECORDS SUMMARY | 2024-04-01 11:59 | XMS_ITS | Encounter Summary ---
Author Organization [facility] Address [address] [place] [address]. [place] [address] [place] [address] Care Team Providers Care Automotive Tire Technician Name Role Phone Sanket Waldron DO [...] st Contact Info) Description 05/30/2024 7:20 AM RECORDS ASSISTANT Laboratory Only [facility] Family & Internal Medicine [place] [address] [place] [address] Sanket Waldron DO [address] [place] [address] 06/06/2024 11:40 AM RECORDS ASSISTANT Office Visit [facility] Family & Internal Medicine [address] [address] Sanket Waldron DO [address] [place] [address] documented as of this encounter Procedures Procedure Name Priority Date/Time Associated Diagnosis Comments OUTSIDE PT/INR (SCAN ORDER) 10/05/2023 documented in this encounter Results * OUTSIDE PT/INR (SCAN ORDER) (10/05/2023) 10/05/2023 [facility] Scanned SCANNING Final Resu lt documented in this encounter Visit Diagnoses Not on filedocumented in this encounter Care Teams Automotive Tire Technician Relationship Specialty Start Date End Date Sanket Waldron DO [address] [place] [address] PCP - General FAMILY PRACTICE 05/26/23 documented as of this encounter
--- OUTSIDE RECORDS SUMMARY | 2024-04-01 11:59 | XMS_ITS | Encounter Summary ---
Author Organization [facility] Address [address] [place] [address]. [place], [place] [address] [place] [address] Care Team Providers Care Scrub Wheel Operator Name Role Phone Sanket Waldron DO [...] IV OFFICE/OUTPT VISIT,EST,[place] [address] [place] [address] Phone: tel: fax: Rachel Fan NP [address] [facility] [address] [place] [address] Phone: tel: fax: Referral ID Status Reason Start Date Expiration Date Visits Requested Visits Authorized [id number] Authorized Specialty Services 12/10/2023 12/09/2024 12 12 Reason for Visit * Reason Comments Hyperlipidemia 6 month follow up. Encounter Details Date Type Department Care Team (Latest Contact Info) Description 12/04/2023 10:00 AM CDT Office Visit [facility] Medical Group Family & Internal Medicine - [address] [address] Sanket Waldron DO [facility] [place] [place] [address] Hyperlipidemia (6 month follow up. ) Social [...] st Contact Info) Description 05/30/2024 7:20 AM WEBSPHERE PROCESS SERVER DEVELOPER Laboratory Only [facility] Medical Group Family & Internal Medicine [address] [address] Sanket Waldron DO [address] [place] [address] 06/06/2024 11:40 AM WEBSPHERE PROCESS SERVER DEVELOPER Office Visit [facility] Medical Group Family & Internal Medicine - [place] [address] [place] [address] Sanket Waldron DO [address] [place] [address] Scheduled Orders Name Type Priority Associated Diagnoses [...] asthma documented in this encounter Care Teams Scrub Wheel Operator Relationship Specialty Start Date End Date Sanket Waldron DO [facility] [place] [place] [address] PCP - General FAMILY PRACTICE 05/26/23 documented as of this encounter
--- OUTSIDE RECORDS SUMMARY | 2024-04-01 11:59 | XMS_ITS | Encounter Summary ---
Author Organization [facility] Address [address] [place] [address]. [place] [address] [place] [address] Care Team Providers Care Perl Software Engineer Name Role Phone Sanket Waldron DO [...] st Contact Info) Description 05/30/2024 7:20 AM PHYSICIAN ANESTHESIOLOGIST Laboratory Only [facility] Family & Internal Medicine [place] [address] [place] [address] Sanket Waldron DO [address] [place] [address] 06/06/2024 11:40 AM PHYSICIAN ANESTHESIOLOGIST Office Visit [facility] Family & Internal Medicine [address] [address] Sanket Waldron DO [address] [place] [address] documented as of this encounter Procedures Procedure Name Priority Date/Time Associated Diagnosis Comments OUTSIDE PT/INR (SCAN ORDER) 11/16/2023 documented in this encounter Results * OUTSIDE PT/INR (SCAN ORDER) (11/16/2023) 11/16/2023 us Doc Med [facility] Scanned SCANNING Final Resu lt documented in this encounter Visit Diagnoses Not on filedocumented in this encounter Care Teams Perl Software Engineer Relationship Specialty Start Date End Date Sanket Waldron DO [address] [place] [address] PCP - General FAMILY PRACTICE 05/26/23 documented as of this encounter
--- OUTSIDE RECORDS SUMMARY | 2024-04-01 11:59 | XMS_ITS | Encounter Summary ---
Author Organization [facility] Address [address] [place] [address]. [place], [place] [address] [place] [address] Care Team Providers Care Template Inspector Name Role Phone Sanket Waldron DO Primary Care Provider + Reason for Referral * Consultation/Treatment (Emergency) - Closed Specialty Diagnoses / Procedures Referred By Contac t Referred To Contact Pain Medicine Diagnoses Bilateral sciatica Procedures OFFICE/OUTPATIENT NEW LOW MDM 30-44 MINUTES OFFICE/OUTPT VISIT,NEW,LEVL IV OFFICE/OUTPT VISIT,NEW,LEVL V OFFICE/OUTPT VISIT,EST,LEVL III OFFICE/OUTPT VISIT,EST,LEVL IV OFFICE/OUTPT VISIT,EST,LEVL V Sanket Waldron DO [address] [place] [address] Phone: tel: fax: Sal Haas MD [address] [place] [address] Phone: tel: fax: Referral ID Status Reason Start Date Expiration Date V isits Requested Visits Authorized [id number] Closed Specialty Services 02/19/2023 02/20/2024 [address] Haas Appt 06/15/2023 ERN CHANGER Reason for Visit * Reason Onset Date Comments Referral 06/15/2023 Encounter Details Date Type Department Care Team (Late st Contact Info) Description 06/15/2023 Telephone [facility] Family & Internal Medicine - [place] [address] [place] [address] Sanket Waldron DO [address] [place] [address] Referral Social History Tobacco Use Types Packs/Day [...] - 06/15/2023 1:22 PM CST Referral placed. ERN CHANGER * Alyson Thakkar - 06/15/2023 9:10 AM CST Good morning! I just received an incoming call from the patient stating that she has an appointmentthis morning with Dr. Haas (pain management) and is needing an Essence authorization. Unsure of what the diagnosis would be, unfortunately. We are unable to obtain Essence auth until the order has been placed. ERN CHANGER documented in this encounter Plan of Treatment Upcoming Encounters Date Type Department Care Team (Late st Contact Info) Description 05/30/2024 7:20 AM PATTERN CHANGER Laboratory Only [facility] Family & Internal [address] [address] Sanket Waldron DO [address] [place] [address] 06/06/2024 11:40 AM PATTERN CHANGER Office Visit [facility] Medical Group Family & Internal Medicine - [place] [address] [place] [address] Sanket Waldron DO [address] [place] [address] Scheduled Referrals Name Type Priority Associated Diagnoses Orde r Schedule Ambulatory Referral to Pain Management Referral STAT Bilateral sciatica Ordered: 06/15/2023 documented as of this encounter Visit Diagnoses Diagnosis Bilateral sciatica- Primary Sciatica documented in this encounter Care Teams Template Inspector Relationship Specialty Start Date End Date Sanket Waldron DO [address] [place] [address] PCP - General FAMILY PRACTICE 05/26/23 documented as of this encounter
--- OUTSIDE RECORDS SUMMARY | 2024-04-01 11:59 | XMS_ITS | Encounter Summary ---
Author Organization [facility] Address [address] [place] [address]. [place] [address] [place] [address] Care Team Providers Care Bending Machine Set Up Operator Name Role Phone Sanket Waldron DO [...] (Late Contact Info) Description 05/30/2024 7:20 AM SUPERVISOR ADVICE Laboratory Only [facility] Family & Internal Medicine [facility] [address] [place] [address] Sanket Waldron, DO [address] [place] [address] 06/06/2024 11:40 AM SUPERVISOR ADVICE Office Visit [facility] Family & Internal Medicine [facility] [address] [place] [address] Sanket Waldron, DO [address] [place] [address] documented as of this encounter Procedures Procedure Name Priority Date/Time Associated Diagnosis Comments OUTSIDE PT/INR (SCAN ORDER) 05/25/2023 documented in this encounter Results * OUTSIDE PT/INR (SCAN ORDER) (05/25/2023) 05/25/2023 us Doc Med Group Scanned SCANNING Final Resu lt documented in this encounter Visit Diagnoses Not on filedocumented in this encounter Care Teams Bending Machine Set Up Operator Relationship Specialty Start Date End Date Sanket Waldron DO [address] [place] [address] PCP - General FAMILY PRACTICE 05/26/23 documented as of this encounter
--- OUTSIDE RECORDS SUMMARY | 2024-04-01 11:59 | XMS_ITS | Encounter Summary ---
Author Organization [facility] Address [address] [place] [address]. [place] [address] [place] [address] Care Team Providers Care Java Developer Name Role Phone Sanket Waldron DO Primary Care Provider + Reason for Visit * Reason Onset Date Comments Radiology Results 11/13/2023 Encounter Details Date Type Department Care Team (Late st Contact Info) Description 11/13/[address] [facility] Family & Internal Medicine [facility] [address] [place] [address] Sanket Waldron DO [address] [place] [address] Radiology Results Social History Tobacco [...] Dick MA - 11/16/2023 4:29 PM CDT [employer] message sent. * Sanket Waldron DO - 11/13/2023 3:44 PM CDT Please let patient know we have her mammogram results from 11/12/23. It was negative for malignancy. Recommend repeat in 1 year. documented in this encounter Plan of Treatment Upcoming Encounters Date Type Department Care Team (Late st Contact Info) Description 05/30/2024 7:20 AM BRIDGE CARPENTER Laboratory Only [facility] Family & Internal [facility] [address] [place] [address] Sanket Waldron DO [address] [place] [address] 06/06/2024 11:40 AM BRIDGE CARPENTER Office Visit [facility] Internal [facility] [address] [place] [address] Sanket Waldron DO [address] [place] [address] documented as of this encounter Visit Diagnoses Not on filedocumented in this encounter Care Teams Java Developer Relationship Specialty Start Date End Date Sanket Waldron DO [address] [place] [address] PCP - General FAMILY PRACTICE 05/26/23 documented as of this encounter
--- OUTSIDE RECORDS SUMMARY | 2024-04-01 11:59 | XMS_ITS | Encounter Summary ---
Author Organization [facility] Address [address] [place] [address]. [place] [address] [place] [address] Care Team Providers Care Supply Chain Systems Manager Name Role Phone Peterson Colidnres DO Primary Care Provider + Reason for Referral * Consultation (Routine) - Authorized Specialty Diagnoses / Procedures Referred By Contac t Referred To Contact ORTHOPAEDICS Diagnoses Primary osteoarthritis of both knees Procedures OFFICE/OUTPATIENT NEW LOW MDM 30-44 MINUTES OFFICE/OUTPT VISIT,NEW,LEVL IV OFFICE/OUTPT VISIT,NEW,LEVL V OFFICE/OUTPT VISIT,EST,LEVL III OFFICE/OUTPT VISIT,EST,LEVL IV OFFICE/OUTPT VISIT,EST,LEVL V Peterson Colindres DO [address] [place] [address] Phone: tel: fax: Adrien Camejo MD [address] [address] Phone: tel: fax: Referral ID Status Reason Start Date Expiration Date Visits Requested Visits Authorized [id number] Authorized Specialty Services 05/14/2023 11/10/2024 12 12 Scheduling Instructions Adrien camejo Reason for Visit * Reason Onset Date Comments Referral 11/10/2023 Encounter Details Date Type Department Care Team (Late st Contact Info) Description 11/10/2023 Telephone [facility] Medical Group Family & Internal Medicine [place] [address] [place] [address] [place] [address] [place] [address] Referral Social History Tobacco Use Types Packs/Day [...] mamm order. Was placed in 05/26/2023 for [facility]. Order is good for1 year. Patient [...] 's name: Dr Adrien Camejo Phone number [phone] Reason for referral: Ortho-knee Insurance: [facility] Appointment: 11/16/2023 Call back #:[phone] Last office visit at this office: Last visit with PETERSON COLINDRES in FAMILY PRACTICE was on: 05/26/2023 in [facility] Future appointment scheduled: Future Appointments Date Time Provider Department Center 11/24/2023 1:00 PM Peterson Colindres DO [facility] documented in this encounter Plan of Treatment Upcoming Encounters Date Type Department Care Team (Late st Contact Info) Description 05/30/2024 7:20 AM ELECTRICIAN RECTIFIER MAINTENANCE Laboratory Only [facility] Family & Internal [facility] [address] [place] [address] Peterson Colindres DO [address] [place] [address] 06/06/2024 11:40 AM ELECTRICIAN RECTIFIER MAINTENANCE Office Visit [facility] Family & Internal [facility] [address] [place] [address] Peterson Colindres DO [address] [place] [address] Scheduled Referrals Name Type Priority Associated Diagnoses Orde r Schedule Ambulatory referral to Orthopedics (OTHER) Referral Routine Primary osteoarthritis of both knees Ordered: 11/10/2023 documented as of this encounter Visit Diagnoses Diagnosis Primary osteoarthritis of both knees- Primary Primary localized osteoarthrosis, lower leg documented in this encounter Care Teams Supply Chain Systems Manager Relationship Specialty Start Date End Date Peterson Colindres DO [address] [place] [address] PCP - General FAMILY PRACTICE 05/26/23 documented as of this encounter
--- OUTSIDE RECORDS SUMMARY | 2024-04-01 11:59 | XMS_ITS | Encounter Summary ---
Author Organization [facility] Address [address] [place] [address]. [place] [address] [place] [address] Care Team Providers Care Agricultural Education Instructor Name Role Phone Sanket Waldron DO Primary Care Provider + Reason for Visit * Reason Onset Date Comments Pre-visit Gap Closure 11/23/2023 Encounter Details Date Type Department Care Team (Late st Contact Info) Description 11/23/2023 Patient Outreach [facility] Medical Group Family & Internal Medicine [facility] [address] [place] [address] Sanket Waldron DO [address] [place], [place] [phone] Pre-visit Gap Closure Social History Tobacco Use [...] st Contact Info) Description 05/30/2024 7:20 AM OUTREACH COORDINATOR Laboratory Only [facility] Family & Internal [address] [address] Sanket Waldron DO [address] [place] [address] 06/06/2024 11:40 AM OUTREACH COORDINATOR Office Visit [facility] Family & Internal [address] [address] Sanket Waldron DO [address] [place] [address] documented as of this encounter Visit Diagnoses Not on filedocumented in this encounter Care Teams Agricultural Education Instructor Relationship Specialty Start Date End Date Sanket Waldron DO [address] [place] [address] PCP - General FAMILY PRACTICE 05/26/23 documented as of this encounter
--- OUTSIDE RECORDS SUMMARY | 2024-04-01 11:59 | XMS_ITS | Encounter Summary ---
Author Organization [facility] Address [address] [place] [address]. [place] [address] [place] [address] Care Team Providers Care Electrician Substation Name Role Phone Snaket Waldron DO Primary [...] st Contact Info) Description 05/30/2024 7:20 AM BALER OPERATOR Laboratory Only [facility] Family & Internal Medicine [place] [address] [place] [address] Sanket Waldron DO [address] [place] [address] 06/06/2024 11:40 AM BALER OPERATOR Office Visit [facility] Family & Internal Medicine [address] [address] Sanket Waldron DO [address] [place] [address] documented as of this encounter Procedures Procedure Name Priority Date/Time Associated Diagnosis Comments OUTSIDE PT/INR (SCAN ORDER) 12/24/2023 documented in this encounter Results * OUTSIDE PT/INR (SCAN ORDER) (12/24/2023) 12/24/2023 us Doc Med Group Scanned SCANNING Final Resu lt documented in this encounter Visit Diagnoses Not on filedocumented in this encounter Care Teams Electrician Substation Relationship Specialty Start Date End Date Sanket Waldron DO [address] [place] [address] PCP - General FAMILY PRACTICE 05/26/23 documented as of this encounter
--- OUTSIDE RECORDS SUMMARY | 2024-04-01 11:59 | XMS_ITS | Encounter Summary ---
Author Organization [facility] Address [address] [place] [address]. [place], [place] [address] [place] [address] Care Team Providers Care Clinical Research Physician Name Role Phone Unavailable Primary Care Provider Unavailabl e Encounter Details Date Type Department Care Team (Late st Contact Info) Description 02/22/2002 Abstract [place] [address] , Generic Conversion, Social History Tobacco Use [...] st Contact Info) Description 05/30/2024 7:20 AM EYE SPECIALIST Laboratory Only [facility] Family & Internal [address] [address] Sanket Waldron, DO [address] [place] [address] 06/06/2024 11:40 AM EYE SPECIALIST Office Visit [facility] Family & Internal [facility] [address] [place] [address] Sanket Waldron, DO [address] [place] [address] documented as of this encounter Visit Diagnoses Not on filedocumented in this encounter
--- OUTSIDE RECORDS SUMMARY | 2024-04-01 11:59 | XMS_ITS | Encounter Summary ---
Author Organization [facility] Address [address] [place] [address]. [place] [address] [place] [address] Care Team Providers Care Floriculture Professor Name Role Phone Sanket Waldron DO [...] (Late Contact Info) Description 05/30/2024 7:20 AM DORR OPERATOR Laboratory Only [facility] Family & Internal Medicine [facility] [address] [place] [address] Sanket Waldron DO [address] [place] [address] 06/06/2024 11:40 AM DORR OPERATOR Office Visit [facility] Family & Internal Medicine [facility] [address] [place] [address] Sanket Waldron, DO [address] [place] [address] documented as of this encounter Procedures Procedure [...] on filedocumented in this encounter Care Teams Floriculture Professor Relationship Specialty Start Date End Date Sanket Waldron DO [address] [place] [address] PCP - General FAMILY PRACTICE 05/26/23 documented as of this encounter
--- OUTSIDE RECORDS SUMMARY | 2024-04-01 11:59 | XMS_ITS | Encounter Summary ---
Author Organization [facility] Address [address] [place] [address]. [place], [place] [address] [place] [address] Care Team Providers Care Vial Gauger Name Role Phone Peterson Colindres DO Primary Care Provider + Reason for Referral * Physical Medicine (Urgent) - Closed Specialty Diagnoses / Procedures Referred By Contac t Referred To Contact PHYSICAL THERAPY Diagnoses Low back pain Procedures OFFICE/OUTPATIENT NEW LOW MDM 30-44 MINUTES OFFICE/OUTPT VISIT,NEW,LEVL IV OFFICE/OUTPT VISIT,NEW,LEVL V OFFICE/OUTPT VISIT,EST,LEVL III OFFICE/OUTPT VISIT,EST,LEVL IV OFFICE/OUTPT VISIT,EST,LEVL V Peterson Colindres DO [address] [place] [id number] Phone: tel: fax: [facility] [address] Phone: tel: fax: Referral ID Status Reason Start Date Expiration Date V isits Requested Visits Authorized [id number] Closed Physical Therapy 06/29/2023 12/30/2023 16 16 Scheduling Instructions 's name: Josefina Specialty: PT Reason for referral (diagnosis): M54.50 Appointment: 07/02/23 7:00AM Please backdate 1x day Reason for Visit * Reason Onset Date Comments Referral 07/02/2023 Encounter Details Date Type Department Care Team (Late st Contact Info) Description 07/02/2023 Telephone [facility] Family & Internal Medicine - [place] [id number] [place] [address] Peterson Colindres DO [address] [place], [place] [phone] Referral Social History Tobacco Use Types Packs/Day [...] in FAMILY PRACTICE was on: 05/26/2023 in [facility] Future appointment scheduled: Future Appointments Date Time Provider Department Center 08/04/2023 10:00 AM [facility] 11/24/2023 1:00 PM Peterson Colindres DO MGFMMRVL [facility] documented in this encounter Plan of Treatment Upcoming Encounters Date Type Department Care Team (Late st Contact Info) Description 05/30/2024 7:20 AM BUSINESS CHANGE MANAGER Laboratory Only [facility] Family & Internal [facility] [address] [place] [address] Peterson Colindres DO [address] [place] [address] 06/06/2024 11:40 AM BUSINESS CHANGE MANAGER Office Visit [facility] Internal [address] [address] Peterson Colindres DO [address] [place] [address] Scheduled Referrals Name Type Priority Associated Diagnoses Orde r Schedule Ambulatory referral to Physical Therapy Referral Routine Low back pain Ordered: 07/02/2023 documented as of this encounter Visit Diagnoses Diagnosis Low back pain- Primary Lumbago documented in this encounter Care Teams Vial Gauger Relationship Specialty Start Date End Date Peterson Colindres DO [address] [place] [address] PCP - General FAMILY PRACTICE 05/26/23 documented as of this encounter
--- OUTSIDE RECORDS SUMMARY | 2024-04-01 11:59 | XMS_ITS | Encounter Summary ---
Author Organization [facility] Address [address] [place] [address]. [place] [address] [place] [address] Care Team Providers Care Indirect Sales Exec Name Role Phone Sanket Waldron DO Primary Care Provider + Reason for Visit * Reason Onset Date Comments Reschedule 11/10/2023 Encounter Details Date Type Department [facility] Description 11/10/2023 Telephone [facility] Family & Internal [address] [address] Sanket Waldron DO [address] [place] [phone] Reschedule Social History Tobacco Use Types Packs/Day [...] Upcoming Encounters Date Type Department Care Team ([facility] Contact Info) Description 05/30/2024 7:20 AM OIL TANKER CAPTAIN Laboratory Only [facility] Family & Internal [address] [phone] Sanket Waldron DO [address] [place] [address] 06/06/2024 11:40 AM OIL TANKER CAPTAIN Office Visit [facility] Family & Internal Medicine - [place] [address] [place] [address] Sanket Waldron DO [address] [place] [address] documented as of this encounter Visit Diagnoses Not on filedocumented in this encounter Care Teams Indirect Sales Exec Relationship Specialty Start Date End Date Sanket Waldron DO [address] [place] [address] PCP - General FAMILY PRACTICE 05/26/23 documented as of this encounter
--- OUTSIDE RECORDS SUMMARY | 2024-04-01 11:59 | XMS_ITS | Encounter Summary ---
Author Organization [facility] Address [address] [place] [address]. [place] [address] [place] [address] Care Team Providers Care Hydraulic Boom Operator Name Role Phone Sanket Waldron DO [...] st Contact Info) Description 05/30/2024 7:20 AM CANDY DEPOSITING MACHINE OPERATOR Laboratory Only [facility] Family & Internal Medicine [facility] [address] [place] [address] Sanket Waldron DO [address] [place] [address] 06/06/2024 11:40 AM CANDY DEPOSITING MACHINE OPERATOR Office Visit [facility] Family & Internal [facility] [address] [place] [address] Sanket Waldron DO [address] [place] [address] documented as of this encounter Visit Diagnoses Not on filedocumented in this encounter Care Teams Hydraulic Boom Operator Relationship Specialty Start Date End Date Sanket Waldron DO [address] [place] [address] PCP - General FAMILY PRACTICE 05/26/23 documented as of this encounter
--- OUTSIDE RECORDS SUMMARY | 2024-04-01 11:59 | XMS_ITS | Encounter Summary ---
Author Organization [facility] Address [address] [place] [address]. [place] [address] [place] [address] Care Team Providers Care Entry Examiner Name Role Phone Sanket Waldron DO Primary [...] st Contact Info) Description 05/30/2024 7:20 AM PIPE LINE GAUGER Laboratory Only [facility] Family & Internal Medicine [facility] [address] [place] [address] Sanket Waldron DO [address] [place] [address] 06/06/2024 11:40 AM PIPE LINE GAUGER Office Visit [facility] Family & Internal [facility] [address] [place] [address] Sanket Waldron DO [address] [place] [address] documented as of this encounter Visit Diagnoses Not on filedocumented in this encounter Care Teams Entry Examiner Relationship Specialty Start Date End Date Sanket Waldron DO [address] [place] [address] PCP - General FAMILY PRACTICE 05/26/23 documented as of this encounter
--- OUTSIDE RECORDS SUMMARY | 2024-04-01 11:59 | XMS_ITS | Encounter Summary ---
Author Organization [facility] Address [address] [place] [address]. [place], [place] [address] [place] [address] Care Team Providers Care Turf And Grounds Supervisor Name Role Phone Unavailable Primary Care Provider Unavailabl e Encounter Details Date Type Department Care Team (Late st Contact Info) Description 01/01/1996 Abstract [place] [address] , Generic Conversion, Social History Tobacco Use [...] Contact Info) Description 05/30/2024 7:20 AM SENIOR JAVA DEVELOPER Laboratory Only [facility] Family & Internal [address] [address] Sanket aWldron DO [address] [place] [address] 06/06/2024 11:40 AM SENIOR JAVA DEVELOPER Office Visit [facility] Family & Internal [facility] [address] [place] [address] Sanket Waldron, DO [address] [place] [address] documented as of this encounter Visit Diagnoses Not on filedocumented in this encounter
--- OUTSIDE RECORDS SUMMARY | 2024-04-01 11:59 | XMS_ITS | Encounter Summary ---
Author Organization [facility] Address [address] [place] [address]. [place] [address] [place] [address] Care Team Providers Care Electrical Panel Builder Name Role Phone Sanket Waldron DO [...] st Contact Info) Description 05/30/2024 7:20 AM HOSPITALIST MEDICAL DIRECTOR Laboratory Only [facility] Family & Internal Medicine [place] [address] [place] [address] Sanket Waldron DO [address] [place] [address] 06/06/2024 11:40 AM HOSPITALIST MEDICAL DIRECTOR Office Visit [facility] Family & Internal Medicine [address] [address] Sanket Waldron DO [address] [place] [address] documented as of this encounter Procedures Procedure Name Priority Date/Time Associated Diagnosis Comments OUTSIDE PT/INR (SCAN ORDER) 06/08/2023 documented in this encounter Results * OUTSIDE PT/INR (SCAN ORDER) (06/08/2023) 06/08/2023 [facility] Scanned SCANNING Final Resu lt documented in this encounter Visit Diagnoses Not on filedocumented in this encounter Care Teams Electrical Panel Builder Relationship Specialty Start Date End Date Sanket Waldron DO [address] [place] [address] PCP - General FAMILY PRACTICE 05/26/23 documented as of this encounter
--- OUTSIDE RECORDS SUMMARY | 2024-04-01 11:59 | XMS_ITS | Encounter Summary ---
Author Organization [facility] Address [address] [place] [address]. [place] [address] [place] [address] Care Team Providers Care Real Estate Agency Principal Name Role Phone Sanket Waldron DO Primary [...] st Contact Info) Description 05/30/2024 7:20 AM STRESS ANALYST Laboratory Only [facility] Family & Internal Medicine [facility] [address] [place] [address] Sanket Waldron DO [address] [place] [address] 06/06/2024 11:40 AM STRESS ANALYST Office Visit [facility] Family & Internal [facility] [address] [place] [address] Sanket Waldron DO [address] [place] [address] documented as of this encounter Visit Diagnoses Not on filedocumented in this encounter Care Teams Real Estate Agency Principal Relationship Specialty Start Date End Date Sanket Waldron DO [address] [place] [address] PCP - General FAMILY PRACTICE 05/26/23 documented as of this encounter
--- OUTSIDE RECORDS SUMMARY | 2024-04-01 11:59 | XMS_ITS | Encounter Summary ---
Author Organization [facility] Address [address] [place] [address]. [place], [place] [address] [place] [address] Care Team Providers Care Aircraft Part Assembler Name Role Phone Sanket Waldron DO Primary Care Provider + Reason for Referral * Consultation (Routine) - Authorized Specialty Diagnoses / Procedures Referred By Contac t Referred To Contact DERMATOLOGY Diagnoses Eyelid abnormality Procedures OFFICE/OUTPATIENT NEW LOW MDM 30-44 MINUTES OFFICE/OUTPT VISIT,NEW,LEVL IV OFFICE/OUTPT VISIT,NEW,LEVL V OFFICE/OUTPT VISIT,EST,LEVL III OFFICE/OUTPT VISIT,EST,LEVL IV OFFICE/OUTPT VISIT,EST,LEVL V Sanket Waldron DO [address] [place] [address] Phone: tel: fax: Colin Alfonso MD [address] [place] [address] Phone: tel: fax: Referral ID Status Reason Start Date Expiration Date Visits Requested Visits Authorized [id number] Authorized Specialty Services 11/24/2023 11/23/2024 12 12 Scheduling Instructions [facility]. Encounter Details Date Type Department Care Team (Late st Contact Info) Description 11/16/2023 Quartixhart Message Enc [facility] Medical [facility] Family & Internal Medicine [place] [address] [place] [address] Sanket Waldron DO [address] [place] [address] Need referral for dermatology Colin Alfonso Social [...] st Contact Info) Description 05/30/2024 7:20 AM MANAGED CARE NURSE Laboratory Only [facility] Family & Internal Medicine [facility] [address] [place] [address] Sanket Waldron DO [address] [place] [address] 06/06/2024 11:40 AM MANAGED CARE NURSE Office Visit [facility] Family & Internal [facility] [address] [place] [address] Sanket Waldron DO [address] [place] [address] Scheduled Referrals Name Type Priority Associated Diagnoses Orde r Schedule Ambulatory referral to Dermatology Referral Routine Eyelid abnormality Ordered: 11/20/2023 documented as of this encounter Visit Diagnoses Diagnosis Eyelid abnormality- Primary Unspecified disorder of eyelid documented in this encounter Care Teams Aircraft Part Assembler Relationship Specialty Start Date End Date Sanket Waldron DO [facility] [place] [address] PCP - General FAMILY PRACTICE 05/26/23 documented as of this encounter
--- OUTSIDE RECORDS SUMMARY | 2024-04-01 11:59 | XMS_ITS | Encounter Summary ---
Author Organization [facility] Address [address] [place] [address]. [place], [place] [address] [place] [address] Care Team Providers Care Tire Buffer Name Role Phone Sanket Waldron DO Primary [...] st Contact Info) Description 05/30/2024 7:20 AM LABORATORY ASSOCIATE Laboratory Only [facility] Family & Internal Medicine [facility] [address] [place] [address] Sanket Waldron DO [address] [place] [address] 06/06/2024 11:40 AM LABORATORY ASSOCIATE Office Visit [facility] Family & Internal Medicine [facility] [address] [place] [address] Sanket Waldron DO [address] [place] [address] documented as of this encounter Visit Diagnoses Not on filedocumented in this encounter Care Teams Tire Buffer Relationship Specialty Start Date End Date Sanket Waldron DO [address] [place] [address] PCP - General FAMILY PRACTICE 05/26/23 documented as of this encounter
--- OUTSIDE RECORDS SUMMARY | 2024-04-01 11:59 | XMS_ITS | Encounter Summary ---
Author Organization [facility] Address [address] [place] [address]. [place] [address] [place] [address] Care Team Providers Care Airplane First Officer Name Role Phone Sanket Waldron DO [...] st Contact Info) Description 05/30/2024 7:20 AM RESEARCH PROFESSIONAL Laboratory Only [facility] Family & Internal Medicine [place] [address] [place] [address] Sanket Waldron DO [address] [place] [address] 06/06/2024 11:40 AM RESEARCH PROFESSIONAL Office Visit [facility] Family & Internal Medicine [address] [address] Sanket Waldron DO [address] [place] [address] documented as of this encounter Procedures Procedure Name Priority Date/Time Associated Diagnosis Comments OUTSIDE PT/INR (SCAN ORDER) 11/26/2023 documented in this encounter Results * OUTSIDE PT/INR (SCAN ORDER) (11/26/2023) 11/26/2023 [facility] Scanned SCANNING Final Resu lt documented in this encounter Visit Diagnoses Not on filedocumented in this encounter Care Teams Airplane First Officer Relationship Specialty Start Date End Date Sanket Wladron DO [address] [place] [address] PCP - General FAMILY PRACTICE 05/26/23 documented as of this encounter
--- OUTSIDE RECORDS SUMMARY | 2024-04-01 11:59 | XMS_ITS | Encounter Summary ---
Author Organization [facility] Address [address] [place] [address]. [place] [address] [place] [address] Care Team Providers Care Shed Workers Supervisor Name Role Phone Sanket Waldron DO Primary Care Provider + Encounter Details Date Type Department Care Team (Latest Contact Info) Description 05/26/2023 - 05/26/2023 11:59 PM [facility] Hospital Encounter [facility] [address] [place] [address] Sanket Waldron DO [address] [place], [place] [phone] Discharge Disposition: Home or Self Care (Routine [...] st Contact Info) Description 05/30/2024 7:20 AM TOILET PRODUCTS MOLDER Laboratory Only [facility] Family & Internal Medicine [address] [address] Sanket Waldron DO [address] [place] [address] 06/06/2024 11:40 AM TOILET PRODUCTS MOLDER Office Visit [facility] Family & Internal [facility] [address] [place] [address] Sanket Waldron DO [address] [place] [address] documented as of this encounter Visit Diagnoses Not on filedocumented in this encounter Care Teams Shed Workers Supervisor Relationship Specialty Start Date End Date Sanket Waldron DO [address] [place] [address] PCP - General FAMILY PRACTICE 05/26/23 documented as of this encounter
--- OUTSIDE RECORDS SUMMARY | 2024-04-01 11:59 | XMS_ITS | Encounter Summary ---
Author Organization [facility] Address [address] [place] [address]. [place], [place] [address] [place] [address] Care Team Providers Care Intermediate Teacher Name Role Phone Sanket Waldron DO [...] st Contact Info) Description 05/30/2024 7:20 AM OVEREDGE MACHINE OPERATOR Laboratory Only [facility] Family & Internal Medicine [facility] [address] [place] [address] Sanket Waldron DO [address] [place] [address] 06/06/2024 11:40 AM OVEREDGE MACHINE OPERATOR Office Visit [facility] Family & Internal Medicine [facility] [address] [place] [address] Sanket Waldron DO [address] [place] [address] documented as of this encounter Visit Diagnoses Not on filedocumented in this encounter Care Teams Intermediate Teacher Relationship Specialty Start Date End Date Sanket Waldron DO [address] [place] [address] PCP - General FAMILY PRACTICE 05/26/23 documented as of this encounter
--- OUTSIDE RECORDS SUMMARY | 2024-04-01 11:59 | XMS_ITS | Encounter Summary ---
Author Organization [facility] Address [address] [place] [address]. [place] [address] [place] [address] Care Team Providers Care Senior Sas Programmer Name Role Phone Sanket Waldron DO [...] st Contact Info) Description 05/30/2024 7:20 AM CHARGE OPERATOR Laboratory Only [facility] Family & Internal Medicine [place] [address] [place] [address] Sanket Waldron DO [address] [place] [address] 06/06/2024 11:40 AM CHARGE OPERATOR Office Visit [facility] Family & Internal Medicine [address] [address] Sanket Waldron DO [address] [place] [address] documented as of this encounter Procedures Procedure Name Priority Date/Time Associated Diagnosis Comments OUTSIDE PT/INR (SCAN ORDER) 09/29/2023 documented in this encounter Results * OUTSIDE PT/INR (SCAN ORDER) (09/29/2023) 09/29/2023 [facility] Doc [facility] Scanned SCANNING Final Resu lt documented in this encounter Visit Diagnoses Not on filedocumented in this encounter Care Teams Senior Sas Programmer Relationship Specialty Start Date End Date Sanket Waldron DO [address] [place] [address] PCP - General FAMILY PRACTICE 05/26/23 documented as of this encounter
--- OUTSIDE RECORDS SUMMARY | 2024-04-01 11:59 | XMS_ITS | Encounter Summary ---
Author Organization [facility] Address [address] [place] [address]. [place] [address] [place] [address] Care Team Providers Care Evaluation Advisor Name Role Phone Sanket Waldron DO Primary [...] Contact Info) Description 05/30/2024 7:20 AM BUSINESS ANALYTICS ANALYST Laboratory Only [facility] Family & Internal Medicine [facility] [address] [place] [address] Sanket Waldron DO [address] [place] [address] 06/06/2024 11:40 AM BUSINESS ANALYTICS ANALYST Office Visit [facility] Family & Internal [facility] [address] [place] [address] Sanket Waldron DO [address] [place] [address] documented as of this encounter Visit Diagnoses Not on filedocumented in this encounter Care Teams Evaluation Advisor Relationship Specialty Start Date End Date Sanket Waldron DO [address] [place] [address] PCP - General FAMILY PRACTICE 05/26/23 documented as of this encounter
--- OUTSIDE RECORDS SUMMARY | 2024-04-01 11:59 | XMS_ITS | Encounter Summary ---
Author Organization [facility] Address [address] [place] [address]. [place] [address] [place] [address] Care Team Providers Care Windshield Installer Name Role Phone Sanket Waldron DO Primary Care Provider + Reason for Referral * Consultation (Routine) - Closed Specialty Diagnoses / Procedures Referred By Contac t Referred To Contact ORTHOPAEDICS Diagnoses Bilateral primary osteoarthritis of knee Procedures OFFICE/OUTPATIENT NEW LOW MDM 30-44 MINUTES OFFICE/OUTPT VISIT,NEW,LEVL IV OFFICE/OUTPT VISIT,NEW,LEVL V OFFICE/OUTPT VISIT,EST,LEVL III OFFICE/OUTPT VISIT,EST,LEVL IV OFFICE/OUTPT VISIT,EST,LEVL V Sanket Waldron DO [address] [place] [address] Phone: tel: fax: Adrien Camejo MD [address] [address] Phone: tel: fax: Referral ID Status Reason Start Date Expiration Date V isits Requested Visits Authorized [id number] Closed Specialty Services 05/14/2023 11/12/2023 6 6 Scheduling Instructions Pt wishes to see Dr. Camejo in [facility] R[facility] CENTRE MANAGER * Imaging (Routine) - Authorized Specialty Diagnoses / Procedures Referred By Contac t Referred To Contact RADIOLOGY Diagnoses Postmenopausal Procedures BONE DENSITY/DEXA Sanket Waldron DO [address] [place] [address] Phone: tel: fax: Referral ID Status Reason Start Date Expiration Date V isits Requested Visits Authorized [id number] Authorized 05/26/2023 06/24/2024 1 1 RTAINMENT CENTRE MANAGER * Imaging (Routine) - Authorized Specialty Diagnoses / Procedures Referred By Chucky acevedo Referred To Contact Diagnoses Screening mammogram for breast cancer Procedures MG SCREENING CLAUDINE DIGI Sanket Waldron DO [address] [place] [address] Phone: tel: fax: Referral ID Status Reason Start Date Expiration Date V isits Requested Visits Authorized [id number] Authorized 05/26/2023 1 1 RTAINMENT CENTRE MANAGER Reason for Visit * Reason Comments Referral Request The patient presents to est care. She is requesting a referral for ortho. Encounter Details Date Type Department Care Team (Late st Contact Info) Description 05/26/2023 10:40 AM ENTERTAINMENT CENTRE MANAGER Office Visit [facility] Medical [facility] Family & Internal Medicine [address] [address] Sanket Waldron DO [address] [place] [phone] Referral Request (The patient presents to est [...] Comments Blood Pressure 108/64 05/26/2023 11:01 AM ENTERTAINMENT CENTRE MANAGER Pulse 96 05/26/2023 11:01 AM ENTERTAINMENT CENTRE MANAGER Temperature 36.7 ??C (98 ??F) 05/26/2023 11:01 AM ENTERTAINMENT CENTRE MANAGER Respiratory Rate 16 05/26/2023 11:01 AM ENTERTAINMENT CENTRE MANAGER Oxygen Saturation 97% 05/26/2023 11:01 AM ENTERTAINMENT CENTRE MANAGER Inhaled Oxygen Concentration - - Weight 59.4 kg (131 lb) 05/26/2023 11:01 AM ENTERTAINMENT CENTRE MANAGER Height 153.7 cm (5' 0.5 ) 05/26/2023 11:01 AM CS T Body Mass Index 25.16 05/26/2023 11:01 AM ENTERTAINMENT CENTRE MANAGER documented in this encounter Progress Notes * Sanket Waldron, DO - 05/26/2023 10:40 AM CST Images from the original note were not included. GENERAL OFFICE VISIT Encounter Date: 05/26/2023 Chief Complaint: 67-year-old female presents for Referral Request (The patient presents to [facility]. She is requesting a referral for ortho. [...] if needed. Pt v/u. Sanket Waldron DO RTAINMENT CENTRE MANAGER documented in this encounter Plan of Treatment Upcoming Encounters Date Type Department Care Team (Late st Contact Info) Description 05/30/2024 7:20 AM ENTERTAINMENT CENTRE MANAGER Laboratory Only [facility] Family & Internal [address] [address] Sanket Waldron DO [facility] [place] [address] 06/06/2024 11:40 AM ENTERTAINMENT CENTRE MANAGER Office Visit [facility] Family & Internal [address] [address] Sanket Waldron DO [address] [place] [address] Scheduled Orders Name Type Priority Associated Diagnoses Orde r Schedule MG SCREENING CALUDINE DIGI MAMMO Routine Screening mammogram for breast [...] Comments TSH W/REFLEX Routine 05/26/2023 12:01 PM ENTERTAINMENT CENTRE MANAGER Mild intermittent asthma without complication (HHS/HCC) Hyperlipidemia, unspecified hyperlipidemia type Screening for endocrine, metabolic and immunity disorder Annual physical exam COMPREHENSIVE METABOLIC PANEL Routine 05/26/2023 12:01 PM ENTERTAINMENT CENTRE MANAGER Mild intermittent asthma without complication (HHS/HCC) Hyperlipidemia, unspecified hyperlipidemia type Screening for endocrine, metabolic and immunity disorder Annual physical exam LIPID PANEL Routine 05/26/2023 12:01 PM ENTERTAINMENT CENTRE MANAGER Mild intermittent asthma without complication (HHS/HCC) Hyperlipidemia, unspecified hyperlipidemia type Screening for endocrine, metabolic and immunity disorder Annual physical exam HEPATITIS C ANTIBODY Routine 05/26/2023 12:01 PM ENTERTAINMENT CENTRE MANAGER Mild intermittent asthma without complication (HHS/HCC) Screening for endocrine, metabolic and immunity disorder Annual physical exam Need for hepatitis C screening test CBC W/DIFF AUTOMATED Routine 05/26/2023 12:01 PM ENTERTAINMENT CENTRE MANAGER Mild intermittent asthma without complication (HHS/HCC) Hyperlipidemia, unspecified hyperlipidemia type Screening for endocrine, metabolic and immunity disorder Annual physical exam VENIPUNC ARM DRAW Routine 05/26/2023 11: 25 AM ENTERTAINMENT CENTRE MANAGER Mild intermittent asthma without complication (HHS/HCC) Hyperlipidemia, unspecified hyperlipidemia type Screening for endocrine, metabolic and immunity disorder Annual physical exam documented in this encounter Results * HEPATITIS C ANTIBODY (05/26/2023 12:01 PM ENTERTAINMENT CENTRE MANAGER) HEPATITIS C AB NON-REACTI VE NON-REACT [place] 05/26/2023 10:23 PM ENTERTAINMENT CENTRE MANAGER [facility] Comment: ANTIBODIES TO HCV NOT DETECTED. DOES NOT EXCLUDE THE POSSIBILITY OF EXPOSURE TO HCV. 05/26/2023 12:0 1 PM ENTERTAINMENT CENTRE MANAGER Sanket Waldron DO LABORATORY Final Re sult [facility] [address] [place] [address], [id number] * LIPID PANEL (05/26/2023 12:01 PM ENTERTAINMENT CENTRE MANAGER) CHOLESTEROL 161 <200 MG/DL 05/26/2023 8:09 PM ENTERTAINMENT CENTRE MANAGER [facility] TRIGLYCERIDES 66 <150 MG/DL 05/26/2023 8:09 PM ENTERTAINMENT CENTRE MANAGER [facility] HDL 67 >40 MG/DL 05/26/2023 8:09 PM ENTERTAINMENT CENTRE MANAGER [facility] LDL-C 81 <100 MG/DL 05/26/2023 8:09 PM ENTERTAINMENT CENTRE MANAGER [facility] VLDL CALCULATION 13 5 - 28 MG/DL 05/26/2023 8:09 PM ENTERTAINMENT CENTRE MANAGER [facility] CHOL/HDL RATIO 2.4 0.0 - 4.0 05/26/2023 8:09 PM ENTERTAINMENT CENTRE MANAGER [facility] LDL/HDL 1.2 0.41 - 2.13 05/26/2023 8:09 PM ENTERTAINMENT CENTRE MANAGER [facility] NON HDL CHOLESTEROL 94 <140 MG/DL 05/26/2023 8:09 PM ENTERTAINMENT CENTRE MANAGER [facility] 05/26/2023 12:0 1 PM ENTERTAINMENT CENTRE MANAGER Sanket Waldron DO LABORATORY Final Re sult [facility] [address] [place] [address], * TSH W/REFLEX (05/26/2023 12:01 PM ENTERTAINMENT CENTRE MANAGER) TSH 1.565 0.358 - 3.740 uIU/ML 05/26/2023 8:09 PM ENTERTAINMENT CENTRE MANAGER [facility] 05/26/2023 12:0 1 PM ENTERTAINMENT CENTRE MANAGER us Sanket Waldron DO LABORATORY Final Re sult [facility] [address] [facility] [address], [place] [phone] * (ABNORMAL) COMPREHENSIVE METABOLIC PANEL (05/26/2023 12:01 PM ENTERTAINMENT CENTRE MANAGER) [facility] SODIUM S/P/B 142 136 - 145 MMOL/L 05/26/2023 8:09 PM ENTERTAINMENT CENTRE MANAGER [facility] POTASSIUM S/P/B 3.9 3.5 - 5.1 MMOL/L 05/26/2023 8:[address] [facility] CHLORIDE S/P/B 102 98 - 107 MMOL/L 05/26/2023 8:[address] [facility] CO2 32.8(H) 21 - 32 MMOL/L 05/26/2023 8:[address] [facility] GLUCOSE 79 70 - 99 MG/DL 05/26/2023 8:09 PM [facility] BUN 20(H) 7 - 18 MG/DL 05/26/2023 8:[address] [facility] CREATININE S/P/B 0.64 0.55 - 1.02 MG/DL 05/26/2023 8:[address] [facility] CALCIUM S/P/B 9.7 8.4 - 10.5 MG/DL 05/26/2023 8:09 PM [facility] BILIRUBIN TOTAL S/P/B 0.5 0.2 - 1.0 MG/DL 05/26/2023 8:[address] [facility] ALKALINE PHOSPHATASE S/P/B 113 50 - 130 U/L 05/26/2023 8:[address] [facility] AST 30 15 - 37 U/L 05/26/2023 8:09 PM ENTERTAINMENT CENTRE MANAGER [facility] ALT 26 14 - 59 U/L 05/26/2023 8:09 PM ENTERTAINMENT CENTRE MANAGER [facility] TOTAL PROTEIN S/P/B 7.3 6.4 - 8.2 G/DL 05/26/2023 8:[address] [facility] ALBUMIN S/P/B 3.8 3.4 - 5.0 G/DL 05/26/2023 8:09 PM ENTERTAINMENT CENTRE MANAGER [facility] ANION GAP 7.2 5 - 15 MMOL/L 05/26/2023 8:09 PM ENTERTAINMENT CENTRE MANAGER [facility] Comment:REFERENCE RANGE NOT ESTABLISHED OSMOLALITY (CALC) 296 MOSM/KG 024 8:09 PM ENTERTAINMENT CENTRE MANAGER [facility] Comment:REFERENCE RANGE NOT ESTABLISHED GFR ESTIMATE >90 >90 ML/MIN/1. 73 M2 05/26/2023 8:09 PM ENTERTAINMENT CENTRE MANAGER [facility] GFR NOTES GFR REFERENCE S: 05/26/2023 8:09 PM [facility] Comment: THE ESTIMATED GFR IS CALCULATED USING [...] <15 ml/min/1.73 m2 05/26/2023 12:0 1 PM ENTERTAINMENT CENTRE MANAGER us Sanket Waldron DO LABORATORY Final Re sult [facility] [address] [place] [address], * (ABNORMAL) CBC W/DIFF AUTOMATED (05/26/2023 12:01 PM ENTERTAINMENT CENTRE MANAGER) [facility] WBC 11.05(H) 4.00 - 10.80 x10'3/uL 05/26/2023 7:[address] [facility] RBC 4.22 4.10 - 5.40 x10'6/uL 05/26/2023 7:[address] [facility] HGB 13.5 12.0 - 16.0 G/DL 05/26/2023 7:[address] [facility] HCT 41.2 36.0 - 47.0 % 05/26/2023 7:[address] [facility] MCV 97.6 78.0 - 100.0 FL 05/26/2023 7:[address] [facility] MCH 32.0(H) 27.0 - 31.0 PG 05/26/2023 7:[address] [facility] MCHC 32.8(L) 33.0 - 36.0 G/DL 05/26/2023 7:[address] [facility] RDW 12.6 11.5 - 14.5 % 05/26/2023 7:[address] [facility] PLT 232 150 - 350 x10'3/uL 05/26/2023 7:[address] [facility] MPV 11.8(H) 7.4 - 10.4 FL 05/26/2023 7:[address] [facility] DIFFERENTIAL TYPE AUTOMATED DIFFERENTIAL 05/26/2023 7:[address] [facility] NEUTROPHILS % 74.2 % 05/26/2023 7:[address] [facility] LYMPHOCYTES % 13.8 % 05/26/2023 7:[address] [facility] MONOCYTES % 10.3 % 05/26/2023 7:[address] [facility] EOSINOPHILS % 1.1 % 05/26/2023 7:48 PM ENTERTAINMENT CENTRE MANAGER [facility] BASOPHILS % 0.5 % 05/26/2023 7:48 PM ENTERTAINMENT CENTRE MANAGER [facility] IMMATURE GRANS % 0.1 % 05/26/2023 7:48 PM ENTERTAINMENT CENTRE MANAGER [facility] ABS. NEUTROPHILS 8.19 1.60 - 8.30 x10'3/uL 05/26/2023 7:48 PM ENTERTAINMENT CENTRE MANAGER [facility] ABS. LYMPHOCYTES 1.53 0.80 - 4.70 x10'3/uL 05/26/2023 7:48 PM ENTERTAINMENT CENTRE MANAGER [facility] ABS. MONOCYTES 1.14 0.00 - 1.50 x10'3/uL 05/26/2023 7:48 PM ENTERTAINMENT CENTRE MANAGER [facility] ABS. EOSINOPHILS 0.12 0.00 - 0.40 x10'3/uL 05/26/2023 7:48 PM ENTERTAINMENT CENTRE MANAGER [facility] ABS. BASOPHILS 0.06 0.00 - 0.20 x10'3/uL 05/26/2023 7:48 PM ENTERTAINMENT CENTRE MANAGER [facility] ABS. IMMATURE GRANULOCYTES 0.01 0.00 - 0.03 x10'3/uL 05/26/2023 7:48 PM ENTERTAINMENT CENTRE MANAGER [facility] 05/26/2023 12:0 1 PM ENTERTAINMENT CENTRE MANAGER us Sanket Waldron DO LABORATORY Final Re sult [facility] [address] [place] [address], [place] [phone] documented in this encounter Visit Diagnoses Diagnosis [...] adult documented in this encounter Care Teams Windshield Installer Relationship Specialty Start Date End Date Sanket Waldron DO [address] [place] [address] PCP - General FAMILY PRACTICE 05/26/23 documented as of this encounter
--- OUTSIDE RECORDS SUMMARY | 2024-04-01 11:59 | XMS_ITS | Encounter Summary ---
Author Organization [facility] Address [address] [place] [address]. [place] [address] [place] [address] Care Team Providers Care Slot Editor Name Role Phone Sanket Waldron DO Primary Care Provider + Encounter Details Date Type Department Care Team (Late Contact Info) Description 08/04/2023 10:00 AM CDT Laboratory Only [facility] Family & Internal [address] [address] Sanket Waldron DO [address] [place], [place] [phone] Social History Tobacco Use Types Packs/Day Years [...] (Late Contact Info) Description 05/30/2024 7:20 AM LABORER POLE CREW Laboratory Only [facility] Family & Internal [address] [address] Sanket Waldron DO [address] [place] [address] 06/06/2024 11:40 AM LABORER POLE CREW Office Visit [facility] Family & Internal Medicine - [place] [address] [place] [phone] KonstantinSanket dolan, DO [address] [place] [address] documented as of this encounter Procedures Procedure Name Priority Date/Time Associated Diagnosis Comments VENIPUNC ARM DRAW Routine 08/04/2023 10: 18 AM CDT Elevated WBC count CBC W/DIFF AUTOMATED Routine 08/04/2023 10:18 AM CDT Elevated WBC count documented in this encounter Results * (ABNORMAL) CBC W/DIFF AUTOMATED (08/04/2023 10:18 AM CDT) WBC 6.36 4.00 - 10.80 x10'3/uL 08/04/2023 3:04 PM CDT [facility] RBC 4.39 4.10 - 5.40 x10'6/uL 08/04/2023 3:04 PM CDT -[facility] HGB 13.4 12.0 - 16.0 G/DL 08/04/2023 3:04 PM CDT -[facility] HCT 41.9 36.0 - 47.0 % 08/04/2023 3:04 PM CDT [facility] MCV 95.4 78.0 - 100.0 FL 08/04/2023 3:04 PM CDT [facility] MCH 30.5 27.0 - 31.0 PG 08/04/2023 3:04 PM CDT [facility] MCHC 32.0(L) 33.0 - 36.0 G/DL 08/04/2023 3:04 PM CDT [facility] RDW 13.2 11.5 - 14.5 % 08/04/2023 3:04 PM CDT [facility] PLT 297 150 - 350 x10'3/uL 08/04/2023 3:04 PM CDT [facility] MPV 10.9(H) 7.4 - 10.4 FL 08/04/2023 3:04 PM CDT [facility] DIFFERENTIAL TYPE AUTOMATED DIFFERENTIAL 08/04/2023 3:04 PM CDT [facility] NEUTROPHILS % 57.9 % 08/04/2023 3:04 PM CDT [facility] LYMPHOCYTES % 26.6 % 08/04/2023 3:04 PM CDT [facility] MONOCYTES % 10.1 % 08/04/2023 3:04 PM CDT [facility] EOSINOPHILS % 4.6 % 08/04/2023 3:04 PM CDT [facility] BASOPHILS % 0.8 % 08/04/2023 3:04 PM CDT [facility] IMMATURE GRANS % 0.0 % 08/04/2023 3:04 PM CDT [facility] ABS. NEUTROPHILS 3.69 1.60 - 8.30 x10'3/uL 08/04/2023 3:04 PM CDT [facility] ABS. LYMPHOCYTES 1.69 0.80 - 4.70 x10'3/uL 08/04/2023 3:04 PM CDT [facility] ABS. MONOCYTES 0.64 0.00 - 1.50 x10'3/uL 08/04/2023 3:04 PM CDT [facility] ABS. EOSINOPHILS 0.29 0.00 - 0.40 x10'3/uL 08/04/2023 3:04 PM CDT [facility] ABS. BASOPHILS 0.05 0.00 - 0.20 x10'3/uL 08/04/2023 3:04 PM CDT [facility] ABS. IMMATURE GRANULOCYTES 0.00 0.00 - 0.03 x10'3/uL 08/04/2023 3:04 PM CDT [facility] 08/04/2023 10:1 8 AM CDT Sanket Waldron DO LABORATORY Final Re sult [facility] [place] [address] [place] [address], documented in this encounter Visit Diagnoses Diagnosis Elevated WBC count Leukocytosis, unspecified documented in this encounter Care Teams Slot Editor Relationship Specialty Start Date End Date Sanket Waldron DO [address] [place] [phone] PCP - General FAMILY PRACTICE 05/26/23 documented as of this encounter
--- OUTSIDE RECORDS SUMMARY | 2024-04-01 11:59 | XMS_ITS | Encounter Summary ---
Author Organization [facility] Address [address] [place] [address]. [place] [address] [place] [address] Care Team Providers Care Junior Estimator Name Role Phone Sanket Waldron DO Primary Care Provider + Encounter Details Date Type Department Care Team (Late Contact Info) Description 11/16/2023 8:20 AM CDT Laboratory Only [facility] Family & Internal [address] [phone] Sanket Waldron DO [address] [place], [place] [phone] Social History Tobacco Use Types Packs/Day Years [...] (Late Contact Info) Description 05/30/2024 7:20 AM TAILOR'S AIDE Laboratory Only [facility] Family & Internal [address] [address] Sanket Waldron DO [address] [place] [address] 06/06/2024 11:40 AM TAILOR'S AIDE Office Visit [facility] Family & Internal Medicine - [place] [address] [place] [phone] KonstantinmaritzahermelindaSanket, DO [address] [place] [address] documented as of this encounter Procedures Procedure Name Priority Date/Time Associated Diagnosis Comments CBC W/DIFF AUTOMATED Routine 11/16/2023 8:13 AM CDT Anemia VENIPUNC ARM DRAW Routine 11/16/2023 8:0 7 AM CDT Anemia documented in this encounter Results * (ABNORMAL) CBC W/DIFF AUTOMATED (11/16/2023 8:13 AM CDT) WBC 5.51 4.00 - 10.80 x10'3/uL 11/16/2023 2:17 PM CDT [facility] RBC 3.92(L) 4.10 - 5.40 x10'6/uL 11/16/2023 2:17 PM CDT [facility] HGB 12.5 12.0 - 16.0 G/DL 11/16/2023 2:17 PM CDT [facility] HCT 38.3 36.0 - 47.0 % 11/16/2023 2:17 PM CDT [facility] MCV 97.7 78.0 - 100.0 FL 11/16/2023 2:17 PM CDT [facility] MCH 31.9(H) 27.0 - 31.0 PG 11/16/2023 2:17 PM CDT [facility] MCHC 32.6(L) 33.0 - 36.0 G/DL 11/16/2023 2:17 PM CDT [facility] RDW 13.8 11.5 - 14.5 % 11/16/2023 2:17 PM CDT [facility] PLT 268 150 - 350 x10'3/uL 11/16/2023 2:17 PM [facility] MPV 11.1(H) 7.4 - 10.4 FL 11/16/2023 2:17 PM CDT [facility] DIFFERENTIAL TYPE AUTOMATED DIFFERENTIAL 11/16/2023 2:17 PM CDT [facility] NEUTROPHILS % 58.8 % 11/16/2023 2:17 PM CDT [facility] LYMPHOCYTES % 24.9 % 11/16/2023 2:17 PM CDT [facility] MONOCYTES % 9.6 % 11/16/2023 2:17 PM CDT [facility] EOSINOPHILS % 5.6 % 11/16/2023 2:17 PM CDT [facility] BASOPHILS % 0.9 % 11/16/2023 2:17 PM CDT [facility] IMMATURE GRANS % 0.2 % 11/16/2023 2:17 PM CDT [facility] ABS. NEUTROPHILS 3.24 1.60 - 8.30 x10'3/uL 11/16/2023 2:17 PM CDT [facility] ABS. LYMPHOCYTES 1.37 0.80 - 4.70 x10'3/uL 11/16/2023 2:17 PM CDT [facility] ABS. MONOCYTES 0.53 0.00 - 1.50 x10'3/uL 11/16/2023 2:17 PM CDT [facility] ABS. EOSINOPHILS 0.31 0.00 - 0.40 x10'3/uL 11/16/2023 2:17 PM CDT [facility] ABS. BASOPHILS 0.05 0.00 - 0.20 x10'3/uL 11/16/2023 2:17 PM CDT [facility] ABS. IMMATURE GRANULOCYTES 0.01 0.00 - 0.03 x10'3/uL 11/16/2023 2:17 PM CDT [facility] [place] 11/16/2023 8:13 AM CDT Sanket Waldron DO LABORATORY Final Re sult [facility] [place] [address] [place] [address], documented in this encounter Visit Diagnoses Diagnosis Anemia- Primary Anemia, unspecified documented in this encounter Care Teams Junior Estimator Relationship Specialty Start Date End Date Sanket Waldron DO [address] [place] [address] PCP - General FAMILY PRACTICE 05/26/23 documented as of this encounter
--- OUTSIDE RECORDS SUMMARY | 2024-04-01 11:59 | XMS_ITS | Encounter Summary ---
Author Organization [facility] Address [address] [place] [address]. [place] [address] [place] [address] Care Team Providers Care Diploma Pharmacy Technician Name Role Phone Sanket Waldron DO [...] st Contact Info) Description 05/30/2024 7:20 AM STEPDOWN NURSE Laboratory Only [facility] Family & Internal Medicine [place] [address] [place] [address] Sanket Waldron DO [address] [place] [address] 06/06/2024 11:40 AM STEPDOWN NURSE Office Visit [facility] Family & Internal Medicine [address] [address] Sanket Waldron DO [address] [place] [address] documented as of this encounter Procedures Procedure Name Priority Date/Time Associated Diagnosis Comments OUTSIDE PT/INR (SCAN ORDER) 07/06/2023 OUTSIDE PT/INR (SCAN ORDER) 07/06/2023 documented in this encounter Results * OUTSIDE PT/INR (SCAN ORDER) (07/06/2023) 07/06/2023 [facility] Scanned SCANNING Final Resu lt * OUTSIDE PT/INR (SCAN ORDER) (07/06/2023) 07/06/2023 [facility] Scanned SCANNING Final Resu lt documented in this encounter Visit Diagnoses Not on filedocumented in this encounter Care Teams Diploma Pharmacy Technician Relationship Specialty Start Date End Date Sanket Waldron DO [address] [place] [address] PCP - General FAMILY PRACTICE 05/26/23 documented as of this encounter
--- OUTSIDE RECORDS SUMMARY | 2024-04-01 11:59 | XMS_ITS | Encounter Summary ---
Author Organization [facility] Address [address] [place] [address]. [place] [address] [place] [address] Care Team Providers Care Route Clerk Name Role Phone Sanket Waldron DO [...] st Contact Info) Description 05/30/2024 7:20 AM CLERICAL ORDER FILLER Laboratory Only [facility] Family & Internal Medicine [place] [address] [place] [address] Sanket Waldron DO [address] [place] [address] 06/06/2024 11:40 AM CLERICAL ORDER FILLER Office Visit [facility] Family & Internal Medicine [address] [address] Sanket Waldron DO [address] [place] [address] documented as of this encounter Procedures Procedure Name Priority Date/Time Associated Diagnosis Comments OUTSIDE PT/INR (SCAN ORDER) 12/31/2023 documented in this encounter Results * OUTSIDE PT/INR (SCAN ORDER) (12/31/2023) 12/31/2023 [facility] Scanned SCANNING Final Resu lt documented in this encounter Visit Diagnoses Not on filedocumented in this encounter Care Teams Route Clerk Relationship Specialty Start Date End Date Sanket Waldron DO [address] [place] [address] PCP - General FAMILY PRACTICE 05/26/23 documented as of this encounter
--- OUTSIDE RECORDS SUMMARY | 2024-04-01 11:59 | XMS_ITS | Encounter Summary ---
Author Organization [facility] Address [address] [place] [address]. [place], [place] [address] [place] [address] Care Team Providers Care Switchboard Clerk Name Role Phone Sanket Waldron DO [...] OFFICE/OUTPT VISIT,EST,LEVL V Sanket Waldron DO [address] [place] [address] Phone: tel: fax: [facility] [address] Phone: tel: fax: Referral ID Status Reason Start Date Expiration Date Visits Requested Visits Authorized [id number] Authorized Physical Therapy 06/29/2023 04/12/2024 56 56 Scheduling Instructions [facility] needing DX code added to current referral.. R knee surgery. Also needing 24 additional visits. Pt has apt scheduled 09/23/23 afternoon Z96.651 most important M62.81 M25.661 Reason for Visit * Reason Onset Date Comments Referral 09/23/2023 Encounter Details Date Type Department Care Team (Late st Contact Info) Description 09/23/2023 Telephone [facility] Medical [facility] Family & Internal [facility] [address] [place] [address] Sanket Waldron DO [address] [place] [address] Referral Social History Tobacco Use Types Packs/Day [...] st Contact Info) Description 05/30/2024 7:20 AM COPPING MACHINE OPERATOR Laboratory Only [facility] Internal [place] [address] [place] [address] Sanket Waldron DO [address] [place] [address] 06/06/2024 11:40 AM COPPING MACHINE OPERATOR Office Visit [facility] Internal [place] [address] [place] [phone] Sanket Waldron DO [address] [place] [address] Scheduled Referrals Name Type Priority Associated Diagnoses [...] right documented in this encounter Care Teams Switchboard Clerk Relationship Specialty Start Date End Date Sanket Waldron DO [address] [place] [address] PCP - General FAMILY PRACTICE 05/26/23 documented as of this encounter
--- OUTSIDE RECORDS SUMMARY | 2024-04-01 11:59 | XMS_ITS | Encounter Summary ---
Author Organization [facility] Address [address] [place] [address]. [place] [address] [place] [address] Care Team Providers Care Motor Setter Name Role Phone Sanket Waldron DO [...] Contact Info) Description 05/30/2024 7:20 AM DESIGN SPECIALIST Laboratory Only [facility] Family & Internal Medicine [place] [address] [place] [address] Sanket Waldron DO [address] [place] [address] 06/06/2024 11:40 AM DESIGN SPECIALIST Office Visit [facility] Family & Internal Medicine [address] [address] Sanket Waldron DO [address] [place] [address] documented as of this encounter Procedures Procedure Name Priority Date/Time Associated Diagnosis Comments OUTSIDE PT/INR (SCAN ORDER) 07/13/2023 documented in this encounter Results * OUTSIDE PT/INR (SCAN ORDER) (07/13/2023) 07/13/2023 [facility] Scanned SCANNING Final Resu lt documented in this encounter Visit Diagnoses Not on filedocumented in this encounter Care Teams Motor Setter Relationship Specialty Start Date End Date Sanket Waldron DO [address] [place] [address] PCP - General FAMILY PRACTICE 05/26/23 documented as of this encounter
--- OUTSIDE RECORDS SUMMARY | 2024-04-01 11:59 | XMS_ITS | Encounter Summary ---
Author Organization [facility] Address [address] [place] [address]. [place] [address] [place] [address] Care Team Providers Care Mysql Database Developer Name Role Phone Sanket Waldron DO [...] st Contact Info) Description 05/30/2024 7:20 AM AIRLINE STEWARDESS Laboratory Only [facility] Family & Internal Medicine [place] [address] [place] [address] Sanket Waldron DO [address] [place] [address] 06/06/2024 11:40 AM AIRLINE STEWARDESS Office Visit [facility] Family & Internal Medicine [address] [address] Sanket Waldron DO [address] [place] [address] documented as of this encounter Procedures Procedure Name Priority Date/Time Associated Diagnosis Comments OUTSIDE PT/INR (SCAN ORDER) 08/23/2023 documented in this encounter Results * OUTSIDE PT/INR (SCAN ORDER) (08/23/2023) 08/23/2023 [facility] Scanned SCANNING Final Resu lt documented in this encounter Visit Diagnoses Not on filedocumented in this encounter Care Teams Mysql Database Developer Relationship Specialty Start Date End Date Sanket Waldron DO [address] [place] [address] PCP - General FAMILY PRACTICE 05/26/23 documented as of this encounter
--- OUTSIDE RECORDS SUMMARY | 2024-04-01 11:59 | XMS_ITS | Encounter Summary ---
Author Organization [facility] Address [address] [place] [address]. [place], [place] [address] [place] [address] Care Team Providers Care Manufacturing Maintenance Mechanic Name Role Phone Sanket Waldron DO [...] (Late Contact Info) Description 05/30/2024 7:20 AM PLATE MOUNTER Laboratory Only [facility] Family & Internal Medicine [facility] [address] [place] [address] Sanket Waldron DO [address] [place] [address] 06/06/2024 11:40 AM PLATE MOUNTER Office Visit [facility] Family & Internal Medicine [facility] [address] [place] [address] Sanket Waldron DO [address] [place] [address] documented as of this encounter Visit Diagnoses Not on filedocumented in this encounter Care Teams Manufacturing Maintenance Mechanic Relationship Specialty Start Date End Date Sanket Waldron DO [address] [place] [address] PCP - General FAMILY PRACTICE 05/26/23 documented as of this encounter
--- OUTSIDE RECORDS SUMMARY | 2024-04-01 11:59 | XMS_ITS | Encounter Summary ---
Author Organization [facility] Address [address] [place] [address]. [place] [address] [place] [address] Care Team Providers Care Accounting Reconciliation Clerk Name Role Phone Sanket Waldron DO [...] Contact Info) Description 05/30/2024 7:20 AM BUSINESS CENTER 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 Laboratory Only [facility] Family & Internal Medicine [place] [address] [place] [address] Sanket Waldron DO [address] [place] [address] 06/06/2024 11:40 AM BUSINESS CENTER 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 Office Visit [facility] Family & Internal Medicine [address] [address] Sanket Waldron DO [address] [place] [address] documented as of this encounter Procedures Procedure Name Priority Date/Time Associated Diagnosis Comments OUTSIDE PT/INR (SCAN ORDER) 10/19/2023 documented in this encounter Results * OUTSIDE PT/INR (SCAN ORDER) (10/19/2023) 10/19/2023 [facility] Scanned SCANNING Final Resu lt documented in this encounter Visit Diagnoses Not on filedocumented in this encounter Care Teams Accounting Reconciliation Clerk Relationship Specialty Start Date End Date Sanket Waldron DO [address] [place] [address] PCP - General FAMILY PRACTICE 05/26/23 documented as of this encounter
--- OUTSIDE RECORDS SUMMARY | 2024-04-01 11:59 | XMS_ITS | Encounter Summary ---
Author Organization [facility] Address [address] [place] [address]. [place] [address] [place] [address] Care Team Providers Care Electrolysis Needle Operator Name Role Phone Sanket Waldron DO [...] st Contact Info) Description 05/30/2024 7:20 AM NAVAL GUNFIRE LIAISON OFFICER Laboratory Only [facility] Family & Internal Medicine [facility] [address] [place] [address] Sanket Waldron DO [address] [place] [address] 06/06/2024 11:40 AM NAVAL GUNFIRE LIAISON OFFICER Office Visit [facility] Family & Internal [facility] [address] [place] [address] Sanket Waldron DO [address] [place] [address] documented as of this encounter Visit Diagnoses Not on filedocumented in this encounter Care Teams Electrolysis Needle Operator Relationship Specialty Start Date End Date Sanket Waldron DO [address] [place] [address] PCP - General FAMILY PRACTICE 05/26/23 documented as of this encounter
--- OUTSIDE RECORDS SUMMARY | 2024-04-01 11:59 | XMS_ITS | Encounter Summary ---
Author Organization [facility] Address [address] [place] [address]. [place] [address] [place] [address] Care Team Providers Care It Quality Assurance Analyst Name Role Phone Sanket Waldron DO [...] st Contact Info) Description 05/30/2024 7:20 AM BOLTING MACHINE OPERATOR Laboratory Only [facility] Family & Internal Medicine [place] [address] [place] [address] Sanket Waldron DO [address] [place] [address] 06/06/2024 11:40 AM BOLTING MACHINE OPERATOR Office Visit [facility] Family & Internal Medicine [address] [address] Sanket Waldron DO [address] [place] [address] documented as of this encounter Procedures Procedure Name Priority Date/Time Associated Diagnosis Comments OUTSIDE PT/INR (SCAN ORDER) 08/31/2023 documented in this encounter Results * OUTSIDE PT/INR (SCAN ORDER) (08/31/2023) 08/31/2023 [facility] Scanned SCANNING Final Resu lt documented in this encounter Visit Diagnoses Not on filedocumented in this encounter Care Teams It Quality Assurance Analyst Relationship Specialty Start Date End Date Sanket Waldron DO [address] [place] [address] PCP - General FAMILY PRACTICE 05/26/23 documented as of this encounter
--- OUTSIDE RECORDS SUMMARY | 2024-04-01 11:59 | XMS_ITS | Encounter Summary ---
Author Organization [facility] Address [address] [place] [address]. [place], [place] [address] [place] [address] Care Team Providers Care Jewelry Store Manager Name Role Phone Sanket Waldron DO [...] st Contact Info) Description 05/30/2024 7:20 AM THERAPEUTIC RECREATION ASSISTANT Laboratory Only [facility] Family & Internal Medicine [facility] [address] [place] [address] Sanket Waldron DO [address] [place] [address] 06/06/2024 11:40 AM THERAPEUTIC RECREATION ASSISTANT Office Visit [facility] Family & Internal Medicine [facility] [address] [place] [address] Sanket Waldron DO [address] [place] [address] documented as of this encounter Visit Diagnoses Not on filedocumented in this encounter Care Teams Jewelry Store Manager Relationship Specialty Start Date End Date Sanket Waldron DO [address] [place] [address] PCP - General FAMILY PRACTICE 05/26/23 documented as of this encounter
--- OUTSIDE RECORDS SUMMARY | 2024-04-01 11:59 | XMS_ITS | Encounter Summary ---
Author Organization [facility] Address [address] [place] [address]. [place], [place] [address] [place] [address] Care Team Providers Care Experimental Machining Lab Manager Name Role Phone Sanket Waldron DO Primary Care Provider + Reason for Visit * Reason Onset Date Comments Question 09/21/2023 Encounter Details Date Type Department Care Team (Late st Contact Info) Description 09/21/2023 Telephone [facility] Medical Group Family & Internal Medicine [facility] [address] [place] [address] Sanket Waldron DO [address] [place] [address] Question Social History Tobacco Use [...] day. The orders can be sent to [employer] by their office. Ok to send a request to extend PT visits for current neck therapy? * Veronica Dick MA - 09/21/2023 4:40 PM CDT Office number [phone]. Office is currently closed. Will attempt to [...] CDT 09-21-23: Received call from Tenisha at [employer]. Patient has been having therapy for her back but recently had Rt total knee surgery by Dr. Adrien Camejo. Is needing the referral extended for additional visits and to add knee if possible./la,rma documented in this encounter Plan of Treatment Upcoming Encounters Date Type Department Care Team (Late st Contact Info) Description 05/30/2024 7:20 AM DIGITAL PHOTOGRAPHER Laboratory Only [facility] Family & Internal Medicine [facility] [address] [place] [address] Sanket Waldron DO [address] [place] [address] 06/06/2024 11:40 AM DIGITAL PHOTOGRAPHER Office Visit [facility] Family & Internal [facility] [address] [place] [address] Sanket Waldron DO [address] [place] [address] documented as of this encounter Visit Diagnoses Not on filedocumented in this encounter Care Teams Experimental Machining Lab Manager Relationship Specialty Start Date End Date Sanket Waldron DO [address] [place] [address] PCP - General FAMILY PRACTICE 05/26/23 documented as of this encounter
--- OUTSIDE RECORDS SUMMARY | 2024-04-01 11:59 | XMS_ITS | Encounter Summary ---
Author Organization [facility] Address [address] [place] [address]. [place] [address] [place] [address] Care Team Providers Care Iron Bender Name Role Phone Sanket Waldron DO Primary Care Provider + Reason for Visit * Reason Comments Procedure (SCAN) Encounter Details Date Type Department Care Team ([facility] Contact Info) Description 01/08/2024 Scan HEALTH INFO [...] Upcoming Encounters Date Type Department Care Team ([facility] Contact Info) Description 05/30/2024 7:20 AM SACK CLEANING HAND Laboratory Only [facility] Family & Internal Medicine [address] [address] Sanket Waldron DO [address] [place] [address] 06/06/2024 11:40 AM SACK CLEANING HAND Office Visit [facility] Family & Internal Medicine [place] [address] [place] [address] Sanket Waldron DO [address] [place] [address] documented as of this encounter Procedures Procedure Name Priority Date/Time Associated Diagnosis Comments PROCEDURE GENERIC (SCAN ORDER) 01/08/2024 documented in this encounter Results * PROCEDURE GENERIC (SCAN ORDER) (01/08/2024) 01/08/2024 [facility] Scanned SCANNING Final Resu lt documented in this encounter Visit Diagnoses Not on filedocumented in this encounter Care Teams Iron Bender Relationship Specialty Start Date End Date Sanket Waldron DO [address] [place] [address] PCP - General FAMILY PRACTICE 05/26/23 documented as of this encounter
--- OUTSIDE RECORDS SUMMARY | 2024-04-01 11:59 | XMS_ITS | Encounter Summary ---
Author Organization [facility] Address [address] [place] [address]. [place], [place] [address] [place] [address] Care Team Providers Care [employer] Estates Paralegal Name Role Phone Sanket Waldron DO Primary [...] OFFICE/OUTPT VISIT,EST,LEVL V Phillip Curtis MD [address] [place] [address] Phone: tel: fax: [facility] [address] [place] [address] [place] [address] Phone: tel: fax: Referral ID Status Reason Start Date Expiration Date V isits Requested Visits Authorized [id number] Closed Physical Therapy 05/14/2023 11/12/2023 16 16 Scheduling Instructions Patient requests [facility] [place]. FEEDER Reason for Visit * Reason Comments Back Pain The patient states t his is the 4th flare since March 2023. The patient states this flare started about 3 days ago. Encounter Details Date Type Department Care Team (Late st Contact Info) Description 06/04/2023 2:40 PM NAIL FEEDER Office Visit [facility] Medical Group Family & Internal Medicine - [place] [address] [place] [address] Phillip Curtis MD [address] [place] [address] Back Pain (The patient states this is [...] Comments Blood Pressure 124/64 06/04/2023 2:48 PM NAIL FEEDER Pulse 91 06/04/2023 2:48 PM NAIL FEEDER Temperature 36.6 ??C (97.9 ??F) 06/04/2023 2:48 PM CS T Respiratory Rate 16 06/04/2023 2:48 PM NAIL FEEDER Oxygen Saturation 96% 06/04/2023 2:48 PM NAIL FEEDER Inhaled Oxygen Concentration - - Weight 59.4 kg (130 lb 14.4 oz) 06/04/2023 2:48 PM NAIL FEEDER Height 153.7 cm (5' 0.5 ) 06/04/2023 2:48 PM NAIL FEEDER Body Mass Index 25.14 06/04/2023 2:48 PM NAIL FEEDER documented in this encounter Progress Notes * [...] has become concerned. She has been taking iyfc-[id number] anti-inflammatories without much relief of her symptoms. [...] MG tablet PCP: PHILLIP CURTIS MD 06/10/2023 FEEDER documented in this encounter Plan of Treatment Upcoming Encounters Date Type Department Care Team (Late st Contact Info) Description 05/30/2024 7:20 AM NAIL FEEDER Laboratory Only [facility] Family & Internal Medicine [facility] [address] [place] [address] Sanket Waldron DO [address] [place] [address] 06/06/2024 11:40 AM NAIL FEEDER Office Visit [facility] Family & Internal [facility] [address] [place] [address] Sanket Waldron DO [address] [place] [address] Scheduled Referrals Name Type Priority Associated Diagnoses Orde r Schedule Ambulatory referral to Physical Therapy Referral Routine Chronic bilateral low back pain with bilateral sciatica Ordered: 06/04/2023 documented as of this encounter Visit Diagnoses Diagnosis Chronic bilateral low back pain with bilateral sciatica- Primary documented in this encounter Care Teams Trust [employer] Estates Paralegal Relationship Specialty Start Date End Date Sanket Waldron DO [address] [place] [address] PCP - General FAMILY PRACTICE 05/26/23 documented as of this encounter
--- OUTSIDE RECORDS SUMMARY | 2024-04-01 11:59 | XMS_ITS | Encounter Summary ---
Author Organization [facility] Address [address] [place] [address]. [place] [address] [place] [address] Care Team Providers Care Medical Instrument Cable Fabricator Name Role Phone Sanket Waldron DO Primary [...] (Late Contact Info) Description 05/30/2024 7:20 AM PUBLIC WORKS INSPECTOR Laboratory Only [facility] Medical Group Family & Internal Medicine [address] [address] Sanket Waldron DO [address] [place] [address] 06/06/2024 11:40 AM PUBLIC WORKS INSPECTOR Office Visit [facility] Family & Internal Medicine - [place] [address] [place] [address] Sanket Waldron DO [address] [place] [address] documented as of this encounter Procedures Procedure [...] filedocumented in this encounter Care Teams Medical Instrument Cable Fabricator Relationship Specialty Start Date End Date Sanket Waldron DO [address] [place] [address] PCP - General FAMILY PRACTICE 05/26/23 documented as of this encounter
--- OUTSIDE RECORDS SUMMARY | 2024-04-01 12:02 | XMS_ITS | Encounter Summary ---
Author Organization [facility] Healthcare Address [address] [place] [address] Care Team Providers Care Oil Analyst Name Role Phone KonstantinSanket dolan DO Primary Care Provide r Adrien Camejo MD Unavailable [phone] Encounter Details Date Type Department Care Team (Late st Contact Info) Description 12/24/2023 Telephone [facility] Medical Group Cardiology [address] [facility] [address] [place] [address] Rachel Fan NP [address] [facility] [address] [place] [address] Social History Tobacco Use Types [...] on file Legal Sex Female 8:13 AM SURGICAL CORSETIER Gender Identity Female 06/01/2020 9:42 PM SURGICAL CORSETIER Sexual Orientation Straight 06/01/2020 9: 42 PM SURGICAL CORSETIER Occupation Industry Job Start Date Job End Date [employer] Not on file Not on file Not [...] on filedocumented in this encounter Care Teams Oil Analyst Relationship Specialty Start Date End Date Sanket Waldron DO [address] [place] [address] PCP - General 05/26/23 Adrien Camejo MD [address] [address] Consulting Physician Orthopedic Surgery 08/25/23 documented as of this encounter
--- OUTSIDE RECORDS SUMMARY | 2024-04-01 12:02 | XMS_ITS | Encounter Summary ---
Author Organization [facility] Healthcare Address [address] [place] [address] Care Team Providers Care Hospice Volunteer Name Role Phone Sanket Waldron Primary Care Provide r Adrien Camejo MD Unavailable [phone] Encounter Details Date Type Department Care Team (Latest Contact Info) Description 03/14/2024 Anticoagulation Visit [facility] Medical Group Cardiology [address] [place] [address] Giuseppe Hernandez RN H/O mechanical aortic valve [...] on file Legal Sex Female 8:13 AM SOAP MAKER Gender Identity Female 06/01/2020 9:42 PM SOAP MAKER Sexual Orientation Straight 06/01/2020 9: 42 PM SOAP MAKER 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
--- OUTSIDE RECORDS SUMMARY | 2024-04-01 12:02 | XMS_ITS | Encounter Summary ---
Author Organization [facility] Address [address] [place] [address] Care Team Providers Care Moss Bleacher Name Role Phone Sanket Waldron DO Primary Care Provide r Adrien Camejo MD Unavailable [phone] Reason for Visit * Cardiology (Routine) - Closed Specialty Diagnoses / Procedures Referred By Chucky acevedo Referred To Contact Diagnoses H/O mechanical aortic valve replacement Procedures Transthoracic Echo (TTE) Complete W Doppler/CF Su Mott NP [address] [facility] [address] [place] [address] Phone: tel: fax: [facility] Referral ID Status Reason Start Date Expiration Date Visits Re quested Visits Authorized [id number] Closed 01/08/2024 02/06/2025 1 1 Encounter Details Date Type Department Care Team (Latest Contact Info) Description 03/14/2024 11:15 AM FARM LOAN 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 Ancillary Procedure [facility] Cardiology [address] [place] [phone] H/O mechanical aortic valve replacement Social History [...] file Legal Sex Female 8:13 AM FARM LOAN 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 Gender Identity Female 06/01/2020 9:42 PM FARM LOAN 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 Sexual Orientation Straight 06/01/2020 9: 42 PM FARM LOAN 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 Not on file Not on file documented as of this encounter Plan of Treatment Not on file documented as of this encounter Procedures Procedure Name Priority Date/Time Associated Diagnosis Comments TRANSTHORACIC ECHO (TTE) COMPLETE W DOPPLER/CF WO CONTRAST Routine 03/14/2024 11:57 AM FARM LOAN 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 H/O mechanical aortic valve replacement documented in this encounter Results * TRANSTHORACIC ECHO (TTE) COMPLETE W DOPPLER/CF WO CONTRAST (03/14/2024 11:57 AM FARM LOAN 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) Anatomical Region Laterality Modality Ultrasound 03/14/2024 11:4 2 AM FARM LOAN 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 Narrative 03/14/2024 1:59 PM FARM LOAN 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 [facility] Cardiology [address] [facility] [address] [place] [id number] [address] [facility] [address], [place] [address] P:[phone] P:[phone] Echocardiographic Report Patient Name: YESSY NIXON M [...] FINDINGS: Interpretation Site: Exam was interpreted at [facility]. Left Ventricle: Normal left ventricular size. Mild [...] size. Electronically Signed By: Dat Chauhan MD, [facility] 2024-03-14 13:58:46 FARM LOAN 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 Procedure Note Dat Chauhan MD - 03/14/2024 [facility] Cardiology [address], [place] [address] [address] [facility] [address], [place] [address] P:[phone] P:[phone] Echocardiographic Report Patient Name: YESSY NIXON M [...] FINDINGS: Interpretation Site: Exam was interpreted at [facility]. Left Ventricle: Normal left ventricular size. Mild [...] size. Electronically Signed By: Dat Chauhan MD, [facility] 2024-03-14 13:58:46 FARM LOAN 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 Su Mott NP CV ECHO PROCEDURES Final Result documented in this encounter Visit Diagnoses Diagnosis H/O mechanical aortic valve replacement documented in this encounter Care Teams Moss Bleacher Relationship Specialty Start Date End Date Sanket Waldron DO [address] [place] [address] PCP - General 05/26/23 Adrien Camejo MD [address] [address] Consulting Physician Orthopedic Surgery 08/25/23 documented as of this encounter
--- OUTSIDE RECORDS SUMMARY | 2024-04-01 12:02 | XMS_ITS | Encounter Summary ---
Author Organization [facility] Healthcare Address [address] [place] [address] Care Team Providers Care Ward Aide Name Role Phone Sanket Waldron Primary Care Provide r Adrien Camejo MD Unavailable [phone] Encounter Details Date Type Department Care Team (Latest Contact Info) Description 02/25/2024 Anticoagulation Visit [facility] Cardiology [address] [place] [phone] Juany Madrid RN H/O mechanical aortic valve [...] on file Legal Sex Female 8:13 AM TEMPER MILL ROLLER Gender Identity Female 06/01/2020 9:42 PM TEMPER MILL ROLLER Sexual Orientation Straight 06/01/2020 9: 42 PM TEMPER MILL ROLLER 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
--- OUTSIDE RECORDS SUMMARY | 2024-04-01 12:02 | XMS_ITS | Encounter Summary ---
Author Organization [facility] Healthcare Address [address] [place] [address] Care Team Providers Care Tenant Relations Coordinator Name Role Phone Sanket Waldron Primary Care Provide r Adrien Camejo MD Unavailable [phone] Encounter Details Date Type Department Care Team (Latest Contact Info) Description 03/01/2024 Anticoagulation Visit [facility] Cardiology [address] [place] [phone] Juany Madrid RN H/O mechanical aortic valve [...] on file Legal Sex Female 8:13 AM PHYS THER Gender Identity Female 06/01/2020 9:42 PM PHYS THER Sexual Orientation Straight 06/01/2020 9: 42 PM PHYS THER 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
--- OUTSIDE RECORDS SUMMARY | 2024-04-01 12:02 | XMS_ITS | Encounter Summary ---
Author Organization [facility] Healthcare Address [address] [place] [address] Care Team Providers Care Set Up Technician Name Role Phone Sanket Waldron Primary Care Provide r Adrien Camejo MD Unavailable [phone] Encounter Details Date Type Department Care Team (Latest Contact Info) Description 02/01/2024 Anticoagulation Visit [facility] Cardiology [address] [place] [phone] Juany Madrid RN H/O mechanical aortic valve [...] on file Legal Sex Female 8:13 AM COVERSTITCH ELASTIC ATTACHER Gender Identity Female 06/01/2020 9:42 PM COVERSTITCH ELASTIC ATTACHER Sexual Orientation Straight 06/01/2020 9: 42 PM COVERSTITCH ELASTIC ATTACHER Occupation Industry Job Start Date Job End Date [employer] Not on file Not on file Not [...] anticoagulants documented in this encounter Care Teams Set Up Technician Relationship Specialty Start Date End Date Sanket Waldron DO [address] [place] [address] PCP - General 05/26/23 Adrien Camejo MD [address] [facility] [address] [address] Consulting Physician Orthopedic Surgery 08/25/23 documented as of this encounter
--- OUTSIDE RECORDS SUMMARY | 2024-04-01 12:02 | XMS_ITS | Encounter Summary ---
Author Organization [facility] Healthcare Address [address] [place] [address] Care Team Providers Care Pot Holder Binder Name Role Phone Sanket Waldron Primary Care Provide r Adrien Camejo MD Unavailable [phone] Encounter Details Date Type Department Care Team (Latest Contact Info) Description 02/22/2024 Anticoagulation Visit [facility] Cardiology [address] [place] [phone] Juany Madrid RN H/O mechanical aortic valve [...] on file Legal Sex Female 8:13 AM QUALIFICATIONS EXAMINER Gender Identity Female 06/01/2020 9:42 PM QUALIFICATIONS EXAMINER Sexual Orientation Straight 06/01/2020 9: 42 PM QUALIFICATIONS EXAMINER 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
--- OUTSIDE RECORDS SUMMARY | 2024-04-01 12:02 | XMS_ITS | Encounter Summary ---
Author Organization [facility] Healthcare Address [address] [place] [address] Care Team Providers Care Linotypist Name Role Phone Sanket Waldron DO Primary Care Provide r Adrien Camejo MD Unavailable [phone] Reason for Visit * Reason Onset Date Comments Epistaxis (Nose Bleed) 03/28/2024 INR results 03/28/2024 Encounter Details Date Type Department Care Team (Late st Contact Info) Description 03/28/2024 Telephone [facility] Cardiology [address] [place] [address] Trina Romero MD [address] [address] Epistaxis (Nose Bleed); INR results [...] on file Legal Sex Female 8:13 AM LOSS CONTROL 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 Gender Identity Female 06/01/2020 9:42 PM LOSS CONTROL 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 Sexual Orientation Straight 06/01/2020 9: 42 PM LOSS CONTROL 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 CONTROL 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 * Telephone Encounter - Susan Rivera - 03/28/2024 10:07 AM CST Patient states that she went to [place] ED last night 03/27 for a nose bleed. States that her INR was drawn and it was a 2.6. States that the ENT is placing her antibiotics for about a week. Please advise. Thank you. Contact [phone] CONTROL 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 documented in this encounter Plan of Treatment Not on file documented as of this encounter Visit Diagnoses Not on filedocumented in this encounter Care Teams Linotypist Relationship Specialty Start Date End Date Sanket Waldron DO [address] [place] [address] PCP - General 05/26/23 Adrien Camejo MD [address] [place] [address] Consulting Physician Orthopedic Surgery 08/25/23 documented as of this encounter
--- OUTSIDE RECORDS SUMMARY | 2024-04-01 12:02 | XMS_ITS | Encounter Summary ---
Author Organization [facility] Healthcare Address [address] [place] [address] Care Team Providers Care Environmental Sampling Technician Name Role Phone Sanket Waldron Primary Care Provide r Adrien Camejo MD Unavailable [phone] Encounter Details Date Type Department Care Team (Latest Contact Info) Description 11/26/2023 Anticoagulation Visit [facility] Cardiology [address] [place] [phone] Juany Madrid RN H/O mechanical aortic valve [...] on file Legal Sex Female 8:13 AM AUTOMATIC LATHE OPERATOR Gender Identity Female 06/01/2020 9:42 PM AUTOMATIC LATHE OPERATOR Sexual Orientation Straight 06/01/2020 9: 42 PM AUTOMATIC LATHE OPERATOR 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
--- OUTSIDE RECORDS SUMMARY | 2024-04-01 12:02 | XMS_ITS | Encounter Summary ---
Author Organization [facility] Healthcare Address [address] [place] [address] Care Team Providers Care E Commerce Manager Name Role Phone KonstantinSanket dolan DO Primary Care Provide r Adrien Camejo MD Unavailable [phone] Encounter Details Date Type Department Care Team (Late st Contact Info) Description 11/16/2023 Telephone [facility] Cardiology [address] [facility] [address] [place] [address] Rachel Fan NP [address] [place] [address] Social History Tobacco Use [...] on file Legal Sex Female 8:13 AM THERMOSTATIC CONTROLS SUPERVISOR Gender Identity Female 06/01/2020 9:42 PM THERMOSTATIC CONTROLS SUPERVISOR Sexual Orientation Straight 06/01/2020 9: 42 PM THERMOSTATIC CONTROLS SUPERVISOR 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
--- OUTSIDE RECORDS SUMMARY | 2024-04-01 12:02 | XMS_ITS | Encounter Summary ---
Author Organization [facility] Healthcare Address [address] [place] [address] Care Team Providers Care Bag Printer Name Role Phone Sanket Waldron Primary Care Provide r Adrien Camejo MD Unavailable [phone] Reason for Visit * Reason Onset Date Comments INR results 02/25/2024 Encounter Details Date Type Department Care Team (Late st Contact Info) Description 02/25/2024 Telephone [facility] Cardiology [address] [place] [address] Trina Romero MD [facility] [address] [address] INR results Social History Tobacco [...] file Legal Sex Female 8:13 AM AUTOMOTIVE SALES PROFESSIONAL Gender Identity Female 06/01/2020 9:42 PM AUTOMOTIVE SALES PROFESSIONAL Sexual Orientation Straight 06/01/2020 9: 42 PM AUTOMOTIVE SALES PROFESSIONAL 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 MOTIVE SALES PROFESSIONAL * Telephone Encounter - Susan Rivera - 03/01/2024 10:46 AM CST Patient calling to report INR results 4.6 02/28 at [place]. Requesting a call back. Please advise.Thank you. Contact [phone] MOTIVE SALES PROFESSIONAL * Telephone Encounter - Juany Madrid RN - 02/25/2024 3:10 PM AUTOMOTIVE SALES PROFESSIONAL See AC note MOTIVE SALES PROFESSIONAL * Telephone Encounter - Susan Rivera - 02/25/2024 2:47 PM CST Patient requesting a call back to discuss latest INR results. Please advise. Thank you. Contact [phone] MOTIVE SALES PROFESSIONAL documented in this encounter Plan of Treatment Not on file documented as of this encounter Visit Diagnoses Not on filedocumented in this encounter Care Teams Bag Printer Relationship Specialty Start Date End Date Sanket Waldron DO [address] [place] [address] PCP - General 05/26/23 Adrien Camejo MD [address] [facility] [address] [address] Consulting Physician Orthopedic Surgery 08/25/23 documented as of this encounter
--- OUTSIDE RECORDS SUMMARY | 2024-04-01 12:02 | XMS_ITS | Encounter Summary ---
Author Organization [facility] Healthcare Address [address] [place] [address] Care Team Providers Care Global Project Manager Name Role Phone Sanket Waldron Primary Care Provide r Adrien Camejo MD Unavailable [phone] Encounter Details Date Type Department Care Team (Latest Contact Info) Description 12/24/2023 Anticoagulation Visit [facility] Cardiology [address] [place] [phone] Juany Madrid RN H/O mechanical aortic valve [...] on file Legal Sex Female 8:13 AM SAFE DEPOSIT BOX RENTAL CLERK Gender Identity Female 06/01/2020 9:42 PM SAFE DEPOSIT BOX RENTAL CLERK Sexual Orientation Straight 06/01/2020 9: 42 PM SAFE DEPOSIT BOX RENTAL CLERK 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
--- OUTSIDE RECORDS SUMMARY | 2024-04-01 12:02 | XMS_ITS | Clinical Summary ---
Author Organization [facility] [address] Address [address] [place] [address] Care Team Providers Care Hot Die Press Operator Name Role Phone Sanket Waldron Primary Care Provide r Adrien Camejo MD Unavailable [phone] Allergies Active Allergy Reactions Criticality Noted Date [...] 06/12/2020 Assessment & Plan (06/12/2020 9:13 AM MANAGER OF CHANGE): Weight/BMI is in healthy range. Continue healthy [...] mitigate Assessment & Plan (05/30/2019 1:13 PM MANAGER OF CHANGE): Continue the Cymbalta and monitor closely. Reviewed with patient with her increased daily stressors it may be difficult to see a change with any medication. Pt in agreement Assessment & Plan (02/20/2019 2:18 PM MANAGER OF CHANGE): Increase cymbalta to 60mg. Monitor closely Assessment [...] replacement with metallic valve S/P 19 mm [place] mechanical AVR Dr. Guthrie 2008 for and [...] by Cardio Chronic anticoagulation 08/28/2015 Overview (07/17/2016): [facility] current use of anticoagulant Assessment & Plan [...] maintain. Assessment & Plan (05/30/2019 8:38 AM MANAGER OF CHANGE): Weight/BMI is in healthy range. Continue healthy lifestyle to maintain. BMI 26.0-26.9,adult 01/24/2019 05/30/19 20 Assessment & Plan (01/24/2019 2:39 PM CDT): Weight/BMI is in healthy range. Continue healthy lifestyle to maintain. Need for immunization against influenza 01/24/2019 12/11/2019 Assessment & Plan (02/20/2019 2:18 PM MANAGER OF CHANGE): Updated in office today Need for Tdap [...] H/O aortic valve replacement S/P 19 mm [place] mechanical AVR Dr. Guthrie 2008 History of anticoagulant therapy 08/30/2012 11/15/2018 Overview (07/17/2016): LONG-TERM USE ANTICOAGUL Encounters Date Type Department Care Team Description 03/31/2024 Anticoagulation Visit [facility] [address] [place] [address] [address] [place] [phone] Giuseppe Hernandez RN H/O mechanical aortic valve replacement (Primary Dx); Chronic anticoagulation 03/31/2024 Telephone [facility] [address] [facility] [address] [place] [phone] Trina Romero MD 03/30/2024 Telephone [facility] [address] [place] [address] [place] [phone] Trina Romero MD 03/28/2024 Telephone [place] [address] [place] [phone] Trina Romero MD Epistaxis (Nose Bleed); INR results 03/14/2024 11:15 AM MANAGER OF CHANGE Ancillary Procedure [place] [address] [place] [phone] H/O mechanical aortic valve replacement 03/14/2024 Anticoagulation Visit [place] [address] [place] [phone] Giuseppe Hernandez RN H/O mechanical aortic valve replacement (Primary Dx); Chronic anticoagulation 03/07/2024 Anticoagulation Visit [place] [address] [place] [phone] Giuseppe Hernandez RN H/O mechanical aortic valve replacement (Primary Dx); Chronic anticoagulation 03/01/2024 Anticoagulation Visit [place] [address] [place] [phone] Juany Madrid RN H/O mechanical aortic valve replacement (Primary Dx); Chronic anticoagulation 02/25/2024 Telephone [place] [address] [place] [phone] Trina Romero MD INR results 02/25/2024 Anticoagulation Visit [place] [address] [place] [phone] Juany Madrid RN H/O mechanical aortic valve replacement (Primary Dx); Chronic anticoagulation 02/22/2024 Anticoagulation Visit [place] [address] [place] [phone] Juany Madrid, BHAVANA H/O mechanical aortic valve replacement (Primary Dx); Chronic anticoagulation 02/01/2024 Anticoagulation Visit [place] [address] [place] [phone] Juany Madrid, RN H/O mechanical aortic valve replacement (Primary Dx); Chronic anticoagulation 01/11/2024 Anticoagulation Visit [facility] [address] [place] [phone] Juany Madrid RN H/O mechanical aortic valve replacement (Primary Dx); Chronic anticoagulation 01/08/2024 1:30 PM CDT Office Visit [facility] [address] [place] [phone] Rachel Mott NP H/O mechanical [...] Heart attack Father Ravin Knott Other Father aRvin Knott [place] age 50, CABG ; Clotting disorder Mother [...] file Legal Sex Female 8:13 AM MANAGER OF CHANGE Gender Identity Female 06/01/2020 9:42 PM MANAGER OF CHANGE Sexual Orientation Straight 06/01/2020 9: 42 PM MANAGER OF CHANGE 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 on file [...] history exists Medical Devices Implanted Type Area Slide Developer Device Identifier Shelf Expiration Date Model / Serial / Lot Candy Orthopaedics Simplex P Radiopaque Full Dose Cement Bone Sterile 6191-1-010 - [id number] Implanted:Qty: 1 on 08/24/2023 by Adrien Camejo MD at [facility] Right: Knee [employer] [id number] 08/10/2025 6191-1-01 0 / / [id number] [employer] Ascent Maxim 63mm 1 Piece Cruciate Fin Knee Tray Tibial Interlok [id number] - [id number] Implanted:Qty: 1 on 08/24/2023 by Adrien Camejo MD at [facility] Right: Knee [employer] 09/11/2032 [id number] / / [id number] [employer] Vanguard 60mm Cruciate Retaining Knee Right Component Femoral [id number] - [id number] Implanted:Qty: 1 on 08/24/2023 by Adrien Camejo MD at [facility] Right: Knee [employer] [id number] 07/26/2032 [id number] / / [id number] [employer] Bearing 63/[id number] Vanguard Arcom Knee Cruciate Retain Direct [id number] - [id number] Implanted:Qty: 1 on 08/24/2023 by Adrien Camejo MD at [facility] Right: Knee [employer] [id number] 04/01/2028 [id number] / / [id number] Procedures Procedure Name Priority Date/Time Associated Diagnosis Comments PROTIME-INR Routine 03/30/2024 TRANSTHORACIC ECHO (TTE) COMPLETE W DOPPLER/CF WO CONTRAST Routine 03/14/2024 11:57 AM MANAGER OF CHANGE H/O mechanical aortic valve replacement PROTIME-INR Routine [...] W DOPPLER/CF WO CONTRAST (03/14/2024 11:57 AM MANAGER OF CHANGE) Anatomical Region Laterality Modality Ultrasound 03/14/2024 11:4 2 AM MANAGER OF CHANGE Narrative 03/14/2024 1:59 PM MANAGER OF CHANGE [facility] [address] [facility] [address], [place] [address] [address] [facility] [address], [place] [address] P:[phone] P:[phone] Echocardiographic Report Patient Name: YESSY NIXON M [...] FINDINGS: Interpretation Site: Exam was interpreted at [facility]. Left Ventricle: Normal left ventricular size. Mild [...] size. Electronically Signed By: Dat Chauhan MD, [facility] 2024-03-14 13:58:46 MANAGER OF CHANGE Procedure Note Dat Chauhan MD - 03/14/2024 [facility] [address], [place] [address] [address] [facility] [id number], [place] [address] P:[phone] P:[phone] Echocardiographic Report Patient Name: YESSY NIXON M [...] FINDINGS: Interpretation Site: Exam was interpreted at [facility]. Left Ventricle: Normal left ventricular size. Mild [...] size. Electronically Signed By: Dat Chauhan MD, [facility] 2024-03-14 13:58:46 MANAGER OF CHANGE Rachel Mott NP CV ECHO PROCEDURES Final Result * (ABNORMAL) Protime-INR (03/14/2024) INR 3.10(A) 0.90 - 1.10 EXTERNAL LAB Blood Historical Provider LAB BLOOD ORDERABLES Antonina hernandez Result EXTERNAL LAB * (ABNORMAL) Protime-INR (03/07/2024) INR 3.50(A) 0.90 - 1.10 EXTERNAL LAB Blood Result [facility] Provider MD LAB BLOOD ORDERABLES Antonina l Result EXTERNAL LAB * (ABNORMAL) Protime-INR (03/01/2024) INR 4.60(A) 0.90 - 1.10 EXTERNAL LAB Blood Result [facility] Provider MD LAB BLOOD ORDERABLES Antonina l Result EXTERNAL LAB * (ABNORMAL) Protime-INR (02/25/2024) INR 3.60(A) 0.90 - 1.10 EXTERNAL LAB Blood Result [facility] Provider MD LAB BLOOD ORDERABLES Antonina l Result Performing Organization Address [facility] Co de Phone Number EXTERNAL LAB * (ABNORMAL) Protime-INR (02/22/2024) INR 4.50(A) 0.90 - 1.10 EXTERNAL LAB Blood Result [facility] Provider MD LAB BLOOD ORDERABLES Antonina l Result Performing Organization Address [facility]/ZIP Co de Phone Number EXTERNAL LAB * (ABNORMAL) Protime-INR (02/01/2024) INR 3.20(A) 0.90 - 1.10 EXTERNAL LAB Blood Result [facility] Provider MD LAB BLOOD ORDERABLES Antonina l Result EXTERNAL LAB * (ABNORMAL) Protime-INR (01/11/2024) INR 2.60(A) 0.90 - 1.10 EXTERNAL LAB Blood Result [facility] Provider MD LAB BLOOD ORDERABLES Antonina l [...] LT Hip (-1.3), RT Hip (-1.1) Result [facility] Historical Provider HEALTH MAINTENANCE Final Result * DNA STOOL (12/06/2018) Pathologist [facility] COLOGUARD Normal Historical Provider HEALTH MAINTENANCE Final Result * PAP SMEAR WITH HPV (11/17/2018) Pathologist [facility] Pap smear Normal Narrative Helena Yu PA - 11/17/2018 Neg (atrophic) with negative HPV Historical Provider HEALTH MAINTENANCE Final Result from Last 3 Months or Most Recently Relevant to Health Maintenance Insurance HEALTHCARE Advance Directives For more information, please contact: [phone] * Full Code (Latest Code Status on File) Date Activated Date Inactivated Comments 08/24/2023 5:34 PM 08/25/2023 6:10 PM Care Teams Hot Die Press Operator Relationship Specialty Start Date End Date Sanket Waldron DO [address] [place] [address] PCP - General 05/26/23 Adrien Camejo MD [address] [address] Consulting Physician Orthopedic Surgery 08/25/23
--- OUTSIDE RECORDS SUMMARY | 2024-04-01 12:02 | XMS_ITS | Encounter Summary ---
Author Organization [facility] Healthcare Address [address] [place] [address] Care Team Providers Care Crayon Painter Name Role Phone KonstantinyolandaandreyGeraldine shenchary Phillip THOMPSON Primary Care Provide r Adrien Camejo MD Unavailable [phone] Encounter Details Date Type Department Care Team (Late st Contact Info) Description 11/16/2023 Orders Only [facility] Health Information Management [address] [place] [id number] Scanning, Provider Social History Tobacco Use Types [...] on file Legal Sex Female 8:13 AM SIGNAL TOWER OPERATOR Gender Identity Female 06/01/2020 9:42 PM SIGNAL TOWER OPERATOR Sexual Orientation Straight 06/01/2020 9: 42 PM SIGNAL TOWER OPERATOR 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
--- OUTSIDE RECORDS SUMMARY | 2024-04-01 12:02 | XMS_ITS | Referral Summary ---
Author Organization [address] Address [address] [facility] [address] [place] [address] Care Team Providers Care Plate Maker Name Role Phone Sanket Waldron Primary Care Provide r Adrien Camejo MD Unavailable Encounters Date Type Department Care Team Description 03/31/2024 Anticoagulation Visit [facility] [address] [facility] [address] [place] [phone] Giuseppe Hernandez RN H/O mechanical aortic valve replacement (Primary Dx); Chronic anticoagulation 03/31/2024 Telephone [facility] [address] [facility] [address] [place] [phone] Trina Romero MD 03/30/2024 Telephone [facility] [address] [place] [address] 162 [address] [place] [phone] Trina Romero MD 03/28/2024 Telephone [facility] [address] [place] [address] [address] [place] [phone] Trina Romero MD Epistaxis (Nose Bleed); INR results 03/14/2024 Anticoagulation Visit [facility] [address] [facility] [address] [place] [phone] Giuseppe Hernandez RN H/O mechanical aortic valve replacement (Primary Dx); Chronic anticoagulation 03/14/2024 11:15 AM INSPECTOR AND HAND PACKAGER Ancillary Procedure [facility] [address] [place] [address] [place] [phone] H/O mechanical aortic valve replacement 03/07/2024 Anticoagulation Visit [place] [address] [place] [phone] Giuseppe Hernandez RN H/O mechanical aortic valve replacement (Primary Dx); Chronic anticoagulation 03/01/2024 Anticoagulation Visit [facility] [address] [place] [address] [place] [phone] Juany Madrid, BHAVANA H/O mechanical aortic valve replacement (Primary Dx); Chronic anticoagulation 02/25/2024 Telephone [place] [address] [place] [phone] Trina Romero MD INR results 02/25/2024 Anticoagulation Visit [place] [address] [place] [phone] Juany Madrid RN H/O mechanical aortic valve replacement (Primary Dx); Chronic anticoagulation 02/22/2024 Anticoagulation Visit [place] [address] [place] [phone] Juany Madrid, BHAVANA H/O mechanical aortic valve replacement (Primary Dx); Chronic anticoagulation 02/01/2024 Anticoagulation Visit [place] [address] [place] [phone] Juany Madrid RN H/O mechanical aortic valve replacement (Primary Dx); Chronic anticoagulation 01/11/2024 Anticoagulation Visit [place] [address] [place] [phone] Juany Madrid RN H/O mechanical aortic valve replacement (Primary Dx); Chronic anticoagulation 01/08/2024 1:30 PM CDT Office Visit [place] [address] [place] [phone] Rachel Mott NP H/O mechanical aortic [...] 06/12/2020 Assessment & Plan (06/12/2020 9:13 AM INSPECTOR AND HAND PACKAGER): Weight/BMI is in healthy range. Continue healthy [...] mitigate Assessment & Plan (05/30/2019 1:13 PM INSPECTOR AND HAND PACKAGER): Continue the Cymbalta and monitor closely. Reviewed with patient with her increased daily stressors it may be difficult to see a change with any medication. Pt in agreement Assessment & Plan (02/20/2019 2:18 PM INSPECTOR AND HAND PACKAGER): Increase cymbalta to 60mg. Monitor closely Assessment [...] replacement with metallic valve S/P 19 mm [place] mechanical AVR Dr. 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 Assessment & Plan (05/30/2019 8:38 AM INSPECTOR AND HAND PACKAGER): Weight/BMI is in healthy range. Continue healthy lifestyle to maintain. BMI 26.0-26.9,adult 01/24/2019 05/30/19 20 Assessment & Plan (01/24/2019 2:39 PM CDT): Weight/BMI is in healthy range. Continue healthy lifestyle to maintain. Need for immunization against influenza 01/24/2019 12/11/2019 Assessment & Plan (02/20/2019 2:18 PM INSPECTOR AND HAND PACKAGER): Updated in office today Need for Tdap [...] H/O aortic valve replacement S/P 19 mm [place] mechanical AVR Dr. 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 Not on file [...] on file Medical Devices Implanted Type Area Solutions Delivery Consultant Device Identifier Shelf Expiration Date Model / Serial / Lot Candy Orthopaedics Simplex P Radiopaque Full Dose Cement Bone Sterile 6191-1-010 - [id number] Implanted:Qty: 1 on 08/24/2023 by Adrien Camejo MD at [facility] Right: Knee [employer] [id number] 08/10/2025 6191-1-01 0 / / [id number] [employer] Ascent Maxim 63mm 1 Piece Cruciate Fin Knee Tray Tibial Interlok [id number] - [id number] Implanted:Qty: 1 on 08/24/2023 by Adrien Camejo MD at [facility] Right: Knee [employer] 09/11/2032 [id number] / / [id number] [employer] Vanguard 60mm Cruciate Retaining Knee Right Component Femoral [id number] - [id number] Implanted:Qty: 1 on 08/24/2023 by Adrien Camejo MD at [facility] Right: Knee [employer] [id number] 07/26/2032 [id number] / / [id number] [employer] Bearing 63/[id number] Vanguard Arcom Knee Cruciate Retain Direct [id number] - [id number] Implanted:Qty: 1 on 08/24/2023 by Adrien Camejo MD at [facility] Right: Knee [employer] [id number] 04/01/2028 [id number] / / [id number] Procedures Procedure Name Priority Date/Time Associated Diagnosis Comments PROTIME-INR Routine 03/30/2024 TRANSTHORACIC ECHO (TTE) COMPLETE W DOPPLER/CF WO CONTRAST Routine 03/14/2024 11:57 AM INSPECTOR AND HAND PACKAGER H/O mechanical aortic valve replacement PROTIME-INR Routine [...] W DOPPLER/CF WO CONTRAST (03/14/2024 11:57 AM INSPECTOR AND HAND PACKAGER) Anatomical Region Laterality Modality Ultrasound 03/14/2024 11:4 2 AM INSPECTOR AND HAND PACKAGER Narrative 03/14/2024 1:59 PM INSPECTOR AND HAND PACKAGER [facility] Cardiology [address] [facility] [address], [place] [address] [address], [place] [address] P:[phone] P:[phone] Echocardiographic Report Patient Name: YESSY DONALDSON M [...] FINDINGS: Interpretation Site: Exam was interpreted at [facility]. Left Ventricle: Normal left ventricular size. Mild [...] size. Electronically Signed By: Dat Chauhan MD, [facility] 2024-03-14 13:58:46 INSPECTOR AND HAND PACKAGER Procedure Note Dat Chauhan MD - 03/14/2024 [facility] Cardiology [address] [facility] [address], [place] [address] [address] [facility] [address], [place] [address] P:[phone] P:[phone] Echocardiographic Report Patient Name: YESSY DONALDSON M [...] FINDINGS: Interpretation Site: Exam was interpreted at [facility]. Left Ventricle: Normal left ventricular size. Mild [...] size. Electronically Signed By: Dat Chauhan MD, [facility] 2024-03-14 13:58:46 INSPECTOR AND HAND PACKAGER Result [facility] Rachel Mott NP CV ECHO PROCEDURES Final Result * (ABNORMAL) Protime-INR (03/14/2024) INR 3.10(A) 0.90 - 1.10 EXTERNAL LAB Blood Result [facility] Historical Provider LAB BLOOD ORDERABLES Antonina l Result EXTERNAL LAB * (ABNORMAL) Protime-INR (03/07/2024) INR 3.50(A) 0.90 - 1.10 EXTERNAL LAB Blood Result [facility] Historical Provider LAB BLOOD ORDERABLES Antonina l Result EXTERNAL LAB * (ABNORMAL) Protime-INR (03/01/2024) INR 4.60(A) 0.90 - 1.10 EXTERNAL LAB Blood Result [facility] Provider MD LAB BLOOD ORDERABLES Antonina l Result Performing Organization Address City/[facility]/ZIP Co de Phone Number EXTERNAL LAB * (ABNORMAL) Protime-INR (02/25/2024) INR 3.60(A) 0.90 - 1.10 EXTERNAL LAB Blood Result [facility] Provider MD LAB BLOOD ORDERABLES Antonina l Result Performing Organization Address City/[facility]/ZIP Co de Phone Number EXTERNAL LAB * (ABNORMAL) Protime-INR (02/22/2024) INR 4.50(A) 0.90 - 1.10 EXTERNAL LAB Blood Result [facility] Provider MD LAB BLOOD ORDERABLES Antonina l Result Performing Organization Address City/[facility] Co de Phone Number EXTERNAL LAB * (ABNORMAL) Protime-INR (02/01/2024) INR 3.20(A) 0.90 - 1.10 EXTERNAL LAB Blood Result [facility] Provider MD LAB BLOOD ORDERABLES Antonina l Result Performing Organization Address City/[facility]/ZIP Co de Phone Number EXTERNAL LAB * (ABNORMAL) Protime-INR (01/11/2024) INR 2.60(A) 0.90 - 1.10 EXTERNAL LAB Blood Result [facility] Provider MD LAB BLOOD ORDERABLES Antonina l Result Performing Organization Address City/[facility]/ZIP Co de Phone Number EXTERNAL LAB * POCT lipid panel (01/08/2024 1:39 PM CDT) Cholesterol, POC 145 mg/dL HDL, POC 51 mg/dL Triglycerides, POC 85 mg/dL LDL Cholesterol POC 76 mg/dL Chol/HDL Ratio, POC 1.5 Non-HDL Cholesterol, POC 93 mg/dL Cholesterol Total, POC 145 mg/dL Capillary blood 01/08/2024 1 :39 PM CDT Result [facility] Rachel Mott NP POINT OF CARE TEST ORDERA BLES Final Result * Screening Mammogram Bilateral W Thai (02/24/2020) Anatomical Region Laterality Modality Breast Bilateral Mammography Impressions 02/24/2020 Recommend routine F/U in one year. BI-RADS Category 1: negative Helena DAVEY IMG MAMMO PROCEDURES Final Result * DEXA SCAN (02/21/2019) DEXA Scan Abnormal Comment:Moise-Spine (-0.8 ), LT Hip (-1.3), RT Hip (-1.1) Result [facility] Historical Provider HEALTH MAINTENANCE Final Result * DNA STOOL (12/06/2018) COLOGUARD Normal Result [facility] Historical Provider HEALTH MAINTENANCE Final Result * PAP SMEAR WITH HPV (11/17/2018) Pap smear Normal Narrative Helena Yu PA - 11/17/2018 Neg (atrophic) with negative HPV Result [facility] Historical Provider HEALTH MAINTENANCE Final Result from Last 3 Months or Most Recently Relevant to Health Maintenance Insurance [facility] HEALTHCARE Advance Directives For more information, please contact: [phone] * Full Code (Latest Code Status on File) Date Activated Date Inactivated Comments 08/24/2023 5:34 PM 08/25/2023 6:10 PM Care Teams Plate Maker Relationship Specialty Start Date End Date Sanket Waldron DO [address] [place] [address] PCP - General 05/26/23 Adrien Camejo MD [address] [address] Consulting Physician Orthopedic Surgery 08/25/23
--- OUTSIDE RECORDS SUMMARY | 2024-04-01 12:02 | XMS_ITS | Encounter Summary ---
Author Organization [facility] Healthcare Address [address] [place] [address] Care Team Providers Care Paper Machine Backtender Name Role Phone Sanket Waldron Primary Care Provide r Adrien Camejo MD Unavailable [phone] Encounter Details Date Type Department Care Team (Latest Contact Info) Description 01/11/2024 Anticoagulation Visit [facility] Cardiology [address] [place] [phone] Juany Madrid RN H/O mechanical aortic valve [...] on file Legal Sex Female 8:13 AM NEW CAR GET READY MECHANIC Gender Identity Female 06/01/2020 9:42 PM NEW CAR GET READY MECHANIC Sexual Orientation Straight 06/01/2020 9: 42 PM NEW CAR GET READY MECHANIC 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
--- OUTSIDE RECORDS SUMMARY | 2024-04-01 12:02 | XMS_ITS | Encounter Summary ---
Author Organization [facility] Healthcare Address [address] [place] [address] Care Team Providers Care Debt Collector Name Role Phone Sanket Waldron Primary Care Provide r Adrien Camejo MD Unavailable [phone] Encounter Details Date Type Department Care Team (Latest Contact Info) Description 12/31/2023 Anticoagulation Visit [facility] Medical Group Cardiology [address] [place] [phone] Huma Trevizo RN H/O mechanical aortic valve [...] on file Legal Sex Female 8:13 AM COMMERCIAL PARTS PROFESSIONAL Gender Identity Female 06/01/2020 9:42 PM COMMERCIAL PARTS PROFESSIONAL Sexual Orientation Straight 06/01/2020 9: 42 PM COMMERCIAL PARTS PROFESSIONAL 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
--- OUTSIDE RECORDS SUMMARY | 2024-04-01 12:02 | XMS_ITS | Encounter Summary ---
Author Organization [facility] Healthcare Address [address] [place] [address] Care Team Providers Care Credentialing Assistant Name Role Phone Sanket Waldron Primary Care Provide r Adrien Camejo MD Unavailable [phone] Encounter Details Date Type Department Care Team (Latest Contact Info) Description 03/07/2024 Anticoagulation Visit [facility] Medical Group Cardiology [address] [place] [phone] Giuseppe Hernandez RN H/O mechanical aortic valve [...] on file Legal Sex Female 8:13 AM WATER RESOURCE AGENT Gender Identity Female 06/01/2020 9:42 PM WATER RESOURCE AGENT Sexual Orientation Straight 06/01/2020 9: 42 PM WATER RESOURCE AGENT 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
--- OUTSIDE RECORDS SUMMARY | 2024-04-01 12:02 | XMS_ITS | Encounter Summary ---
Author Organization [facility] Address [address] [place] [address] Care Team Providers Care Asset Protection Greeter Name Role Phone Sanket Waldron DO Primary Care Provide r Adrien Camejo MD Unavailable [phone] Reason for Referral * Cardiology (Routine) - Closed Specialty Diagnoses / Procedures Referred By Chucky acevedo Referred To Contact Diagnoses H/O mechanical aortic valve replacement Procedures Transthoracic Echo (TTE) Complete W Doppler/CF Su Mott NP [address] [address] Phone: tel: fax: [facility] Medical Group Referral ID Status Reason Start Date Expiration Date Visits Re quested Visits Authorized [id number] Closed 01/08/2024 02/06/2025 1 1 Reason for Visit * Reason Comments Annual Exam * Consultation (Routine) - Authorized Specialty Diagnoses / Procedures Referred By Chucky acevedo Referred To Contact Cardiology Diagnoses Presence of prosthetic heart valve Sanket Waldron DO [address] [place] [address] Phone: tel: fax: [facility] Medical Group Cardiology [address] [address] Phone: tel: fax: Referral ID Status Reason Start Date Expiration Date Visits Requested Visits Authorized [id number] Authorized Specialty Services Required 12/10/2023 12/09/2024 12 12 Encounter Details Date Type Department Care Team (Late st Contact Info) Description 01/08/2024 1:30 PM CDT Office Visit [facility] Medical Group Cardiology [address] [place] [address] Su Mott NP [address] [place] [address] H/O mechanical aortic valve replacement [...] on file Legal Sex Female 8:13 AM ANALYTICS DEVELOPER Gender Identity Female 06/01/2020 9:42 PM ANALYTICS DEVELOPER Sexual Orientation Straight 06/01/2020 9: 42 PM ANALYTICS DEVELOPER 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 [facility] Medical Group Cardiology [address] [place] [address] Date of Visit: 01/08/2024 Patient ID: Yessy [...] who underwent AVR w/ a 19 mm Lucernemines mechanical valve by Dr. Guthrie in 2008. Has not had involvement of her ascending aorta. She is chronically anticoagulated. She is aware of need for SBE antibiotic prophylaxis prior to dental work and nonsterile procedures. History of hyperlipidemia, sciatica, spinal stenosis. Last routine office visit with Dr. Gaines December 2022 10/31/2023 office visit with STAFF DEVELOPER: She is here for routine follow-up. She [...] Problem Relation Age of Onset Other Father [place] age 50, CABG; Heart attack Father Arthritis [...] at the upper left sternal border. Comments: [place] mechanical click, most pronounced at [facility]. Pulmonary: [...] mmHg --> Aortic valve replacement, 19 mm Lucernemines valve 2008: EF 63%, LYNSEY 1.0-1.1 cm2, [...] This note is dictated and transcribed using [employer] Direct Software. Dobby Loom Weaver variancesmay occur. Despite proofreading, typographical errors may occur. documented in this encounter Plan of Treatment Not on file documented as of this encounter Procedures Procedure Name Priority Date/Time Associated Diagnosis Comments POCT LIPID PANEL Routine 01/08/2024 1:39 PM CDT Dyslipidemia documented in this encounter Results * TRANSTHORACIC ECHO (TTE) COMPLETE W DOPPLER/CF WO CONTRAST (03/14/2024 11:57 AM ANALYTICS DEVELOPER) Anatomical Region Laterality Modality Ultrasound 03/14/2024 11:4 2 AM ANALYTICS DEVELOPER Narrative 03/14/2024 1:59 PM ANALYTICS DEVELOPER [facility] Medical Group Cardiology [address], [place] [address] [address], [place] [address] P:[phone] P:[phone] Echocardiographic Report Patient Name: YESSY NIXON M [...] size. Electronically Signed By: Dat Chauhan MD, [facility] 2024-03-14 13:58:46 ANALYTICS DEVELOPER Procedure Note Dat Chauhan MD - 03/14/2024 [facility] Medical Group Cardiology [address] [facility] [address] [id number] [address] [facility] [address], [place] [address] P:[phone] P:[phone] Echocardiographic Report Patient Name: YESSY NIXON M [...] size. Electronically Signed By: Dat Chauhan MD, [facility] 2024-03-14 13:58:46 ANALYTICS DEVELOPER Su Mott NP CV ECHO PROCEDURES Final [...] 01/08/2024 documented in this encounter Care Teams Asset Protection Greeter Relationship Specialty Start Date End Date Sanket Waldron DO [address] [place] [address] PCP - General 05/26/23 Adrien Camejo MD [address] [facility] [address] [facility] [address] [place] [address] Consulting Physician Orthopedic Surgery 08/25/23 documented as of this encounter
--- OUTSIDE RECORDS SUMMARY | 2024-04-01 12:02 | XMS_ITS | Encounter Summary ---
Author Organization [facility] Healthcare Address [address] [place] [address] Care Team Providers Care Vp Data Name Role Phone KonstantinSanket dolan DO Primary Care Provide r Adrien Camejo MD Unavailable [phone] Reason for Visit * Reason Onset Date Comments Med Refill 12/31/2023 Encounter Details Date Type Department Care Team (Late st Contact Info) Description 12/31/2023 Telephone [facility] Medical Group Cardiology [address] 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 States she got it from [facility] already. Contact: * Telephone Encounter - [...] documented as of this encounter Care Teams Vp Data Relationship Specialty Start Date End Date Sanket Waldron DO [address] [place] [address] PCP - General 05/26/23 Adrien Camejo MD [address] [address] Consulting Physician Orthopedic Surgery 08/25/23 documented as of this encounter
--- OUTSIDE RECORDS SUMMARY | 2024-04-01 12:03 | XMS_ITS | Encounter Summary ---
Author Organization [facility] Healthcare Address [address] [place] [address] Care Team Providers Care Cloth Doffer Name Role Phone KonstantinyolandaandreyGeraldine shenchary Phillip THOMPSON Primary Care Provide r Adrien Camejo MD Unavailable [phone] Encounter Details Date Type Department Care Team (Late st Contact Info) Description 08/17/2023 Orders Only [facility] Health Information Management [address] [place] [address] Scanning, Provider Social History Tobacco Use Types [...] file Legal Sex Female 8:13 AM COMMERCIAL PRINT SALESMAN Gender Identity Female 06/01/2020 9:42 PM COMMERCIAL PRINT SALESMAN Sexual Orientation Straight 06/01/2020 9: 42 PM COMMERCIAL PRINT SALESMAN 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
--- OUTSIDE RECORDS SUMMARY | 2024-04-01 12:03 | XMS_ITS | Encounter Summary ---
Author Organization [facility] Healthcare Address [address] [place] [address] Care Team Providers Care Icu Specialist Name Role Phone KonstantinyolandaandreyGeraldine shenchary Phillip THOMPSON Primary Care Provide r Adrien Camejo MD Unavailable [phone] Encounter Details Date Type Department Care Team (Late st Contact Info) Description 08/31/2023 Orders Only [facility] Health Information Management [address] [place] [address] Scanning, Provider Social History Tobacco Use Types [...] on file Legal Sex Female 8:13 AM CHEMIST WATER PURIFICATION Gender Identity Female 06/01/2020 9:42 PM CHEMIST WATER PURIFICATION Sexual Orientation Straight 06/01/2020 9: 42 PM CHEMIST WATER PURIFICATION 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
--- OUTSIDE RECORDS SUMMARY | 2024-04-01 12:03 | XMS_ITS | Encounter Summary ---
Author Organization [facility] Healthcare Address [address] [place] [address] Care Team Providers Care Rfid Strategist Name Role Phone KonstantinSanket dolan DO Primary Care Provide r Reason for Visit * Auth/Cert (Routine) Specialty Diagnoses / Procedures Referred By Contac t Referred To Contact Diagnoses Primary osteoarthritis of right knee Primary osteoarthritis of right knee [M17.11] Procedures NE ARTHRP KNE CONDYLE&PLATU MEDIAL&LAT COMPARTMENTS NE ARTHROPLASTY PATELLA W/O PROSTHESIS Right Total Knee Arthroplasty Referral ID Status Reason Start Date Expiration Date Visits Re quested Visits Authorized [id number] 1 1 Encounter Details Date Type Department Care Team (Late st Contact Info) Description 08/24/2023 11:09 AM CDT Anesthesia Event [facility] Operating Room [address] [place] [address] Parish Hoyos MD [address] [facility] [place] [address] Yasmany Crowe CRNA [address] [place] [address] Anesthesia Record Procedure Summary Procedure Name Responsible [...] ght; Knee; 03/15/24 (Retired LDA, Removed/Completed by Shop pirate with LDA Utility); 1213 (Retired LDA, Removed/Completed by Shop pirate with LDA Utility) 08/24/23 1150 by Steve [...] on file Legal Sex Female 8:13 AM AUTOMATION TEST DEVELOPER Gender Identity Female 06/01/2020 9:42 PM AUTOMATION TEST DEVELOPER Sexual Orientation Straight 06/01/2020 9: 42 PM AUTOMATION TEST DEVELOPER 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 Not on file Not on file documented as of this encounter OR Notes * Anesthesia Postprocedure Evaluation - Parish Hoyos MD - 08/24/2023 5:02 PM CDT Patient: Yessy Donaldson Procedure Summary Date: 08/24/23 [place] / [place] [facility] [place] [facility] [place] [facility]PER[facility] Anesthesia Start: 1109 Anesthesia Stop: [...] for block: primary anesthetic Staff: Placed by: SHIPPING LEAD:Yasmany Crowe CRNA Procedure prep: Preprocedure checklist: patient [...] Problem Relation Age of Onset Other Father [place] age 50, CABG; Heart attack Father Arthritis [...] during recovery from upcoming surgery. Going to [employer] 3 times a week for swimming Labs [...] S/P SAVR with [address] [place] prosthesis. Peak Velocity 1.70 m/s. Mean gradient [...] Medication protocol when under care of a SHIPPING LEAD Planned anesthesia: Spinal, PNB - single shot and regional for postop pain per surgeon request Lower extremity: saphenous nerve block - subsartorial approach Postoperative Plan: Postoperative administration opioids intended. No postoperative mechanical ventilation intended. Patient's planned disposition post procedure is Floor. Informed Consent: Discussed plan with SHIPPING LEAD. Anesthesia plan and risks discussed with patient. [...] Procedure Name Priority Date/Time Associated Diagnosis Comments NE AN PROCEDURE PLACEHOLDER Routine 08/24/2023 11:46 AM CDT NE AN PROCEDURE PLACEHOLDER Routine 08/24/2023 9:47 AM CDT documented in this encounter Results * NE AN PROCEDURE PLACEHOLDER (08/24/2023 11:46 AM CDT) Narrative Yasmany Crowe CRNA - 08/24/2023 11:46 AM CDT Yasmany Crowe CRNA ? 08/24/2023 11:48 AM Spinal Block Patient location: OR End time: 08/24/2023 11:19 AM Reason for block: primary anesthetic Staff: Placed by: SHIPPING LEAD:Yasmany Crowe CRNA Procedure prep: Preprocedure checklist: patient [...] ORDERAB LES Edited Result - Final * NE AN PROCEDURE PLACEHOLDER (08/24/2023 9:47 AM CDT) [...] mg documented in this encounter Care Teams Rfid Strategist Relationship Specialty Start Date End Date Sanket Waldron DO [address] [place] [address] PCP - General 05/26/23 documented as of this encounter
--- OUTSIDE RECORDS SUMMARY | 2024-04-01 12:03 | XMS_ITS | Encounter Summary ---
Author Organization [facility] Healthcare Address [address] [place] [address] Care Team Providers Care Electrical Cad Technician Name Role Phone Sanket Waldron Primary Care Provide r Adrien Camejo MD Unavailable [phone] Encounter Details Date Type Department Care Team (Latest Contact Info) Description 10/19/2023 Anticoagulation Visit [facility] Medical Group Cardiology [address] [place] [phone] Juany Madrid RN H/O mechanical aortic valve [...] file Legal Sex Female 8:13 AM SUPERVISOR HARDBOARD Gender Identity Female 06/01/2020 9:42 PM SUPERVISOR HARDBOARD Sexual Orientation Straight 06/01/2020 9: 42 PM SUPERVISOR HARDBOARD 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
--- OUTSIDE RECORDS SUMMARY | 2024-04-01 12:03 | XMS_ITS | Encounter Summary ---
Author Organization [facility] Healthcare Address [address] [place] [address] Care Team Providers Care Tumbler Tender Name Role Phone Sanket Waldron Primary Care Provide r Adrien Camejo MD Unavailable [phone] Encounter Details Date Type Department Care Team (Latest Contact Info) Description 08/25/2023 Anticoagulation Visit [facility] Medical Group Cardiology [address] [place] [phone] Huma Trevizo RN H/O mechanical aortic valve [...] on file Legal Sex Female 8:13 AM TELESALES TEAM LEADER Gender Identity Female 06/01/2020 9:42 PM TELESALES TEAM LEADER Sexual Orientation Straight 06/01/2020 9: 42 PM TELESALES TEAM LEADER 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
--- OUTSIDE RECORDS SUMMARY | 2024-04-01 12:03 | XMS_ITS | Encounter Summary ---
Author Organization [facility] Healthcare Address [address] [place] [address] Care Team Providers Care Office Supervisor Name Role Phone Sanket Waldron Primary Care Provide r Adrien Camejo MD Unavailable [phone] Encounter Details Date Type Department Care Team (Latest Contact Info) Description 10/06/2023 Anticoagulation Visit [facility] Medical Group Cardiology [address] [place] [address] Juany Madrid RN H/O mechanical aortic valve [...] on file Legal Sex Female 8:13 AM CUSTOM STOCK MAKER Gender Identity Female 06/01/2020 9:42 PM CUSTOM STOCK MAKER Sexual Orientation Straight 06/01/2020 9: 42 PM CUSTOM STOCK MAKER 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
--- OUTSIDE RECORDS SUMMARY | 2024-04-01 12:03 | XMS_ITS | Encounter Summary ---
Author Organization [facility] Healthcare Address [address] [place] [address] Care Team Providers Care Senior Cost Analyst Name Role Phone Sanket Waldron Primary Care Provide r Adrien Camejo MD Unavailable [phone] Encounter Details Date Type Department Care Team (Latest Contact Info) Description 09/14/2023 Anticoagulation Visit [facility] Medical Group Cardiology [address] [place] [phone] Juany Madrid RN H/O mechanical aortic valve [...] on file Legal Sex Female 8:13 AM YOGA INSTRUCTOR Gender Identity Female 06/01/2020 9:42 PM YOGA INSTRUCTOR Sexual Orientation Straight 06/01/2020 9: 42 PM YOGA INSTRUCTOR 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
--- OUTSIDE RECORDS SUMMARY | 2024-04-01 12:03 | XMS_ITS | Encounter Summary ---
Author Organization [facility] Healthcare Address [address] [place] [address] Care Team Providers Care Transmission And Protection Engineer Name Role Phone Sanket Waldron Primary Care Provide r Encounter Details Date Type Department Care Team (Latest Contact Info) Description 07/20/2023 Anticoagulation Visit [facility] Medical Group Cardiology [address] [place] [address] Juany Madrid RN H/O mechanical [...] on file Legal Sex Female 8:13 AM ELECTROCARDIOGRAM TECHNICIAN Gender Identity Female 06/01/2020 9:42 PM ELECTROCARDIOGRAM TECHNICIAN Sexual Orientation Straight 06/01/2020 9: 42 PM ELECTROCARDIOGRAM TECHNICIAN 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
--- OUTSIDE RECORDS SUMMARY | 2024-04-01 12:03 | XMS_ITS | Encounter Summary ---
Author Organization [facility] Healthcare Address [address] [place] [address] Care Team Providers Care Cable Testers Helper Name Role Phone KonstantinSanket dolan DO Primary Care Provide r Adrien Camejo MD Unavailable [phone] Encounter Details Date Type Department Care Team (Late st Contact Info) Description 09/10/2023 Telephone [facility] Medical Group Cardiology [address] [facility] [address] [place] [address] Rachel Fan NP [address] [facility] [address] [place] [address] Social History Tobacco Use Types [...] file Legal Sex Female 8:13 AM MACHINE INSPECTOR Gender Identity Female 06/01/2020 9:42 PM MACHINE INSPECTOR Sexual Orientation Straight 06/01/2020 9: 42 PM MACHINE INSPECTOR 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
--- OUTSIDE RECORDS SUMMARY | 2024-04-01 12:03 | XMS_ITS | Encounter Summary ---
Author Organization [facility] Healthcare Address [address] [place] [address] Care Team Providers Care Master Mechanic Name Role Phone KonstantinSanket dolan DO Primary Care Provide r Adrien Camejo MD Unavailable [phone] Encounter Details Date Type Department Care Team (Late st Contact Info) Description 09/14/2023 Telephone [facility] Medical Group Cardiology [address] [facility] [address] [place] [address] Rachel Fan NP [address] [place] [address] Social History Tobacco Use Types [...] file Legal Sex Female 8:13 AM RESEARCH CHIEF ENGINEER Gender Identity Female 06/01/2020 9:42 PM RESEARCH CHIEF ENGINEER Sexual Orientation Straight 06/01/2020 9: 42 PM RESEARCH CHIEF ENGINEER 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 Contact:[phone] documented in this encounter Plan of Treatment Not on file documented as of this encounter Visit Diagnoses Not on filedocumented in this encounter Care Teams Master Mechanic Relationship Specialty Start Date End Date Sanket Waldron DO [address] [place] [address] PCP - General 05/26/23 Adrien Camejo MD [address] [address] Consulting Physician Orthopedic Surgery 08/25/23 documented as of this encounter
--- OUTSIDE RECORDS SUMMARY | 2024-04-01 12:03 | XMS_ITS | Encounter Summary ---
Author Organization [facility] Healthcare Address [address] [place] [address] Care Team Providers Care Sort Line Name Role Phone Sanket Waldron Primary Care Provide r Adrien Camejo MD Unavailable [phone] Encounter Details Date Type Department Care Team (Latest Contact Info) Description 09/30/2023 Anticoagulation Visit [facility] Medical Group Cardiology [address] [place] [phone] Juany Madrid RN H/O mechanical aortic valve [...] on file Legal Sex Female 8:13 AM SCENARIO WRITER Gender Identity Female 06/01/2020 9:42 PM SCENARIO WRITER Sexual Orientation Straight 06/01/2020 9: 42 PM SCENARIO WRITER 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
--- OUTSIDE RECORDS SUMMARY | 2024-04-01 12:03 | XMS_ITS | Encounter Summary ---
Author Organization [facility] Healthcare Address [address] [place] [address] Care Team Providers Care Ultrasound Applications Specialist Name Role Phone Sanket Waldron Primary Care Provide r Adrien Camejo MD Unavailable [phone] Encounter Details Date Type Department Care Team (Late st Contact Info) Description 07/13/2023 Orders Only [facility] Health Information Management [address] [place] [address] Scanning, Provider Social History Tobacco Use Types [...] on file Legal Sex Female 8:13 AM PREFORM PLATE MAKER Gender Identity Female 06/01/2020 9:42 PM PREFORM PLATE MAKER Sexual Orientation Straight 06/01/2020 9: 42 PM PREFORM PLATE MAKER 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
--- OUTSIDE RECORDS SUMMARY | 2024-04-01 12:03 | XMS_ITS | Encounter Summary ---
Author Organization [facility] Healthcare Address [address] [place] [address] Care Team Providers Care Firebreak Cutter Name Role Phone KonstantinyolandaandreyGeraldine shenchary Phillip THOMPSON Primary Care Provide r Adrien Camejo MD Unavailable [phone] Encounter Details Date Type Department Care Team (Late st Contact Info) Description 09/23/2023 Orders Only [facility] Information Management [address] [place] [address] Scanning, Provider Social History Tobacco Use Types [...] on file Legal Sex Female 8:13 AM FLEET MANAGER Gender Identity Female 06/01/2020 9:42 PM FLEET MANAGER Sexual Orientation Straight 06/01/2020 9: 42 PM FLEET MANAGER 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
--- OUTSIDE RECORDS SUMMARY | 2024-04-01 12:03 | XMS_ITS | Encounter Summary ---
Author Organization [facility] Address [address] [place] [address] Care Team Providers Care Nonprofit Fundraiser Name Role Phone KonstantinSanket dolan DO Primary Care Provide r Encounter Details Date Type Department Care Team (Latest Contact Info) Description 08/06/2023 10:15 AM CDT Pre-Admission Testing [facility] Pre Anesthesia Testing [address] [place] [phone] Pre-op evaluation (Primary Dx) Anesthesia Record Procedure [...] ght; Knee; 03/15/24 (Retired LDA, Removed/Completed by [employer] with LDA Utility); 1213 (Retired LDA, Removed/Completed by [employer] with LDA Utility) 08/24/23 1150 by Steve [...] on file Legal Sex Female 8:13 AM TRUSTEE OF ESTATE Gender Identity Female 06/01/2020 9:42 PM TRUSTEE OF ESTATE Sexual Orientation Straight 06/01/2020 9: 42 PM TRUSTEE OF ESTATE 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 ??Minority populations were underrepresented and children were not included. ?? (Diabetes Care 31:7061-8862, 2008). ??The eAG is not equivalent to a fasting glucose. Blood 08/06/2023 12:4 8 PM CDT 08/06/2023 12:48 PM CDT us Chel Zurita NP LAB BLOOD ORDERABLES Antonina hernandez Result [facility] [address] Department [place] [address] * eGFR (08/06/2023 12:47 PM CDT) Pathologist [facility] [place] eGFR >90 >=60 mL/min/1. 73 m2 Comment: [...] PM CDT 08/06/2023 12:47 PM CDT Chel Zuirta NP LAB BLOOD ORDERABLES Antonina hernandez Result [facility] [address] Department of Laboratories [place], [place] [id number] * (ABNORMAL) Comprehensive metabolic panel (08/06/2023 12:47 PM CDT) [facility] Sodium 141 135 - 145 mmol/L Potassium, pl 4.2 3.3 - 4.9 mmol/L [facility] Chloride 105 97 - 110 mmol/L [facility] CO2 29 22 - 32 mmol/L [facility] Anion gap 7 2 - 15 mmol/L [facility] BUN 20 6 - 25 mg/dL [facility] Creatinine 0.57(L) 0.60 - 1.10 mg/dL [facility] Glucose 74 70 - 199 mg/dL [facility] Comment: Interpretive Data Fasting glucose >/= 126 [...] 2022. Calcium 9.3 8.5 - 10.3 mg/dL [facility] Bilirubin, total 0.5 0.1 - 1.2 mg/dL [facility] Protein, pl 7.3 6.5 - 8.5 g/dL [facility] Albumin 4.2 3.5 - 5.0 g/dL [facility] Alk phos 123 40 - 130 Units/L [facility] ALT 26 7 - 45 Units/L [facility] AST 45 10 - 45 Units/L [facility] Blood 08/06/2023 12:4 7 PM CDT 08/06/2023 12:47 PM CDT us Chel Zurita NP LAB BLOOD ORDERABLES Antonina hernandez Result [facility] [address] Department [place] [address] documented in this encounter Visit [...] 08/06/2023 CALCIUM CITRATE ORAL Error 08/06/2023 COVID-19 mRNA,[id number] (YOOSE) 30 mcg/0.3 mL suspension for reconstitution Error [...] 4 added in this encounter Care Teams Nonprofit Fundraiser Relationship Specialty Start Date End Date Sanket Waldron DO [address] [place] [address] PCP - General 05/26/23 documented as of this encounter
--- OUTSIDE RECORDS SUMMARY | 2024-04-01 12:03 | XMS_ITS | Encounter Summary ---
Author Organization [facility] Healthcare Address [address] [place] [address] Care Team Providers Care Combine Operator Name Role Phone Sanket Waldron Primary Care Provide r Adrien Camejo MD Unavailable Encounter Details Date Type Department Care Team (Latest Contact Info) Description 09/10/2023 Anticoagulation Visit [facility] Medical Group Cardiology [address] [place] [phone] Penny Wilks RN H/O mechanical aortic valve [...] on file Legal Sex Female 8:13 AM MARINE HABITAT RESOURCE SPECIALIST Gender Identity Female 06/01/2020 9:42 PM MARINE HABITAT RESOURCE SPECIALIST Sexual Orientation Straight 06/01/2020 9: 42 PM MARINE HABITAT RESOURCE SPECIALIST 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
--- OUTSIDE RECORDS SUMMARY | 2024-04-01 12:03 | XMS_ITS | Encounter Summary ---
Author Organization [facility] Healthcare Address [address] [place] [address] Care Team Providers Care Music Director Name Role Phone Sanket Waldron Primary Care Provide r Adrien Camejo MD Unavailable [phone] Encounter Details Date Type Department Care Team (Latest Contact Info) Description 09/18/2023 Anticoagulation Visit [facility] Medical Group Cardiology [address] [place] [phone] Huma Trevizo RN H/O mechanical aortic valve [...] on file Legal Sex Female 8:13 AM CRACKER DOUGH MIXER Gender Identity Female 06/01/2020 9:42 PM CRACKER DOUGH MIXER Sexual Orientation Straight 06/01/2020 9: 42 PM CRACKER DOUGH MIXER 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
--- OUTSIDE RECORDS SUMMARY | 2024-04-01 12:03 | XMS_ITS | Encounter Summary ---
Author Organization [facility] Healthcare Address [address] [place] [address] Care Team Providers Care Pest Control Service Representative Name Role Phone Sanket Waldron Primary Care Provide r Adrien Camejo MD Unavailable [phone] Encounter Details Date Type Department Care Team (Latest Contact Info) Description 09/24/2023 Anticoagulation Visit [facility] Medical Group Cardiology [address] [place] [phone] Penny Wilks RN H/O mechanical aortic valve [...] on file Legal Sex Female 8:13 AM OPERATING ROOM ORDERLY Gender Identity Female 06/01/2020 9:42 PM OPERATING ROOM ORDERLY Sexual Orientation Straight 06/01/2020 9: 42 PM OPERATING ROOM ORDERLY 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
--- OUTSIDE RECORDS SUMMARY | 2024-04-01 12:03 | XMS_ITS | Encounter Summary ---
Author Organization [facility] Healthcare Address [address] [place] [address] Care Team Providers Care Silverware Buffing Machine Operator Name Role Phone KonstantinyolandaandreyGeraldine shenchary Phillip THOMPSON Primary Care Provide r Adrien Camejo MD Unavailable [phone] Encounter Details Date Type Department Care Team (Late st Contact Info) Description 09/14/2023 Orders Only [facility] Health Information Management [address] [place] [address] Scanning, Provider Social History Tobacco Use Types [...] on file Legal Sex Female 8:13 AM APPLIANCE REPAIR TECHNICIAN Gender Identity Female 06/01/2020 9:42 PM APPLIANCE REPAIR TECHNICIAN Sexual Orientation Straight 06/01/2020 9: 42 PM APPLIANCE REPAIR TECHNICIAN 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
--- OUTSIDE RECORDS SUMMARY | 2024-04-01 12:03 | XMS_ITS | Encounter Summary ---
Author Organization [facility] Healthcare Address [address] [place] [address] Care Team Providers Care Swing Tender Name Role Phone KonstantinSanket dolan DO Primary Care Provide r Adrien Camejo MD Unavailable [phone] Encounter Details Date Type Department Care Team (Late st Contact Info) Description 08/25/2023 Telephone [facility] Medical Group Cardiology [address] [facility] [address] [place] [address] Rachle Fan NP [address] [facility] [address] [place] [address] Social History Tobacco Use Types [...] file Legal Sex Female 8:13 AM SUPERVISOR CORE SHOP Gender Identity Female 06/01/2020 9:42 PM SUPERVISOR CORE SHOP Sexual Orientation Straight 06/01/2020 9: 42 PM SUPERVISOR CORE SHOP 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
--- OUTSIDE RECORDS SUMMARY | 2024-04-01 12:03 | XMS_ITS | Encounter Summary ---
Author Organization [facility] Healthcare Address [address] [place] [address] Care Team Providers Care Cement Finishing Supervisor Name Role Phone KonstantinyolandaandreyGeraldine shenchary Phillip THOMPSON Primary Care Provide r Adrien Camejo MD Unavailable [phone] Encounter Details Date Type Department Care Team (Late st Contact Info) Description 10/19/2023 Orders Only [facility] Health Information Management [address] [place] [address] Scanning, Provider Social History Tobacco Use Types [...] on file Legal Sex Female 8:13 AM KILN LOADER Gender Identity Female 06/01/2020 9:42 PM KILN LOADER Sexual Orientation Straight 06/01/2020 9: 42 PM KILN LOADER 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
--- OUTSIDE RECORDS SUMMARY | 2024-04-01 12:03 | XMS_ITS | Encounter Summary ---
Author Organization [facility] Healthcare Address [address] [place] [address] Care Team Providers Care Religious Education Teacher Name Role Phone KonstantinSanket dolan DO Primary Care Provide r Adrien Camejo MD Unavailable [phone] Encounter Details Date Type Department Care Team (Late st Contact Info) Description 11/12/2023 Telephone [facility] Medical Group Cardiology [address] [facility] [address] [place] [address] Rachel Fan NP [address] [place] [address] Social History Tobacco Use Types [...] on file Legal Sex Female 8:13 AM RELIGIOUS EDUCATION TEACHER Gender Identity Female 06/01/2020 9:42 PM RELIGIOUS EDUCATION TEACHER Sexual Orientation Straight 06/01/2020 9: 42 PM RELIGIOUS EDUCATION TEACHER 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 I'm planning on having it done @ [facility], so will need an order for them and also [facility]. Thanks. Emani Donaldson documented in [...] anticoagulants documented in this encounter Care Teams Religious Education Teacher Relationship Specialty Start Date End Date Sanket Waldron DO [address] [place] [address] PCP - General 05/26/23 Adrien Camejo MD [address] [address] Consulting Physician Orthopedic Surgery 08/25/23 documented as of this encounter
--- OUTSIDE RECORDS SUMMARY | 2024-04-01 12:03 | XMS_ITS | Encounter Summary ---
Author Organization [facility] Healthcare Address [address] [place] [address] Care Team Providers Care Boring Machine Operator Vertical Name Role Phone Sanket Waldron Primary Care Provide r Adrien Camejo MD Unavailable [phone] Encounter Details Date Type Department Care Team (Latest Contact Info) Description 11/16/2023 Anticoagulation Visit [facility] Medical Group Cardiology [address] [place] [phone] Juany Madrid RN H/O mechanical aortic valve [...] on file Legal Sex Female 8:13 AM COMMISSARY CLERK Gender Identity Female 06/01/2020 9:42 PM COMMISSARY CLERK Sexual Orientation Straight 06/01/2020 9: 42 PM COMMISSARY CLERK 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
--- OUTSIDE RECORDS SUMMARY | 2024-04-01 12:03 | XMS_ITS | Encounter Summary ---
Author Organization [facility] Healthcare Address [address] [place] [address] Care Team Providers Care Dish Room Worker Name Role Phone Sanket Waldron Primary Care Provide r Encounter Details Date Type Department Care Team (Latest Contact Info) Description 08/17/2023 Anticoagulation Visit [facility] Medical Group Cardiology [address] [place] [address] Huma Trevizo RN H/O mechanical [...] on file Legal Sex Female 8:13 AM FLOORHAND Gender Identity Female 06/01/2020 9:42 PM FLOORHAND Sexual Orientation Straight 06/01/2020 9: 42 PM FLOORHAND 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
--- OUTSIDE RECORDS SUMMARY | 2024-04-01 12:03 | XMS_ITS | Encounter Summary ---
Author Organization [facility] Healthcare Address [address] [place] [address] Care Team Providers Care Laborer Shaft Sinking Name Role Phone Sanket Waldron Primary Care Provide r Adrien Camejo MD Unavailable [phone] Encounter Details Date Type Department Care Team (Latest Contact Info) Description 09/01/2023 Anticoagulation Visit [facility] Medical Group Cardiology [address] [place] [phone] Penny Wilks RN H/O mechanical aortic valve [...] on file Legal Sex Female 8:13 AM CAMPGROUND HAND Gender Identity Female 06/01/2020 9:42 PM CAMPGROUND HAND Sexual Orientation Straight 06/01/2020 9: 42 PM CAMPGROUND HAND 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
--- OUTSIDE RECORDS SUMMARY | 2024-04-01 12:03 | XMS_ITS | Encounter Summary ---
Author Organization [facility] Healthcare Address [address] [place] [address] Care Team Providers Care Enterprise Engineer Name Role Phone KonstantinyolandaSanket pacheco Primary Care Provide r Adrien Camejo MD Unavailable [phone] Encounter Details Date Type Department Care Team (Late st Contact Info) Description 07/20/2023 Orders Only [facility] Health Information Management [address] [place] [address] Scanning, Provider Social History Tobacco Use Types [...] on file Legal Sex Female 8:13 AM CMM OPERATOR Gender Identity Female 06/01/2020 9:42 PM CMM OPERATOR Sexual Orientation Straight 06/01/2020 9: 42 PM CMM OPERATOR 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
--- OUTSIDE RECORDS SUMMARY | 2024-04-01 12:03 | XMS_ITS | Encounter Summary ---
Author Organization [facility] Healthcare Address [address] [place] [address] Care Team Providers Care Bar Useful Or Busser Name Role Phone Sanket Waldron Primary Care Provide r Encounter Details Date Type Department Care Team (Late st Contact Info) Description 07/29/2023 Telephone [facility] Pre Anesthesia Testing [address] [place] [address] Tiera Damon Social History Tobacco [...] on file Legal Sex Female 8:13 AM EDUCATION SALES CONSULTANT Gender Identity Female 06/01/2020 9:42 PM EDUCATION SALES CONSULTANT Sexual Orientation Straight 06/01/2020 9: 42 PM EDUCATION SALES CONSULTANT 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
--- OUTSIDE RECORDS SUMMARY | 2024-04-01 12:03 | XMS_ITS | Encounter Summary ---
Author Organization [facility] Healthcare Address [address] [place] [address] Care Team Providers Care Fiberglass Product Tester Name Role Phone Sanket Waldron Primary Care Provide r Adrien Camejo MD Unavailable [phone] Reason for Visit * Auth/Cert (Routine) Specialty Diagnoses / Procedures Referred By Chucky acevedo Referred To Contact Diagnoses Primary osteoarthritis of right knee Primary osteoarthritis of right knee [M17.11] Procedures SC ARTHRP KNE CONDYLE&PLATU MEDIAL&LAT COMPARTMENTS SC ARTHROPLASTY PATELLA W/O PROSTHESIS Right Total Knee Arthroplasty Referral ID Status Reason Start Date Expiration Date Visits Re quested Visits Authorized [id number] 1 1 Encounter Details Date Type Department Care Team (Latest Contact Info) Description 08/24/2023 7:58 AM CDT - 08/25/2023 2:04 PM CDT Hospital Encounter [facility] [address] [place] [id number] Adrien Camejo MD [address] [facility] [address] [place] [address] Discharge Disposition: Discharge to home or self [...] on file Legal Sex Female 8:13 AM TRANSIT DEPARTMENT CLERK Gender Identity Female 06/01/2020 9:42 PM TRANSIT DEPARTMENT CLERK Sexual Orientation Straight 06/01/2020 9: 42 PM TRANSIT DEPARTMENT CLERK 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 In general, Percocetis for severe pain and Quincy for moderate pain. Both of these are [...] need to come to the office to spanish moss picker a hand-written prescription. Refills are NOT [...] Emergency exchange after hours Marialuisa (Dr. Camejo's assistant warehouse manager) Special Instructions: Continue following PT/OT instructions Discharge [...] Wound Healing and Your Diet (General Information) (Colombian) * Laxative, Stool Softeners (By mouth) (Colombian) * Hydrocodone/Acetaminophen (By mouth) (Colombian) * Oxycodone, Rapid Release (By mouth) (Colombian) * Meloxicam (By mouth) (Colombian) documented in this encounter Medications at Time of Discharge albuterol HFA (ProAir HFA) 90 mcg/actuation inhaler Inhale 2 puffs every 4 (four) hours as needed for wheezing 1 Inhaler 1 02/23/2020 artificial tears (ISOPTO TEARS) 0.5 % ophthalmic solution Administer 1 drop into both eyes as needed aspirin 81 mg enteric coated tablet Take 1 tablet (81 mg total) by mouth every morning calcium carbonate-vitami n D3 (CALTRATE 600 + D) 1500 mg (600 mg elemental) -400 units per tablet Take 1 tablet by mouth every morning cyanocobalamin (Vitamin B-12) 1,000 mcg tabletIndication s:Prevention of Vitamin B12 Deficiency Take 1 tablet (1,000 mcg total) by mouth every morning docusate sodium (COLACE) 100 mg capsuleIndicatio ns:constipation Take 1 capsule (100 mg total) by mouth 2 (two) times a day 08/25/2023 gabapentin (NEURONTIN) 300 mg capsule Take 2 capsules (600 mg total) by mouth 3 (three) times a day as needed 11/22/2021 HYDROcodone-acet aminophen (NORCO) 5-325 mg per tabletIndication s:Pain Take 1-2 tablets by mouth every 6 (six) hours as needed for pain (Moderate Pain) 30 tablet 08/24/2023 LATANOPROST OPHT Administer 1 drop into affected eye(s) nightly magnesium oxide 400 mg magnesium capsule Take 1 tablet by mouth nightly menthol 4 % gel Apply 1 Application topically as needed oxyCODONE-acetam inophen (PERCOCET) 5-325 mg per tabletIndication s:Pain Take 1-2 tablets by mouth every 6 (six) hours as needed for pain (Severe Pain) 30 tablet 08/24/2023 sodium chloride (OCEAN) 0.65 % nasal spray Administer 1 spray into each nostril as needed atorvastatin (LIPITOR) 20 mg tablet [...] the time .) Home ADL Equipment-Currently Using Materials Supervisor Prior Function Level of Charles Independent with ADLs;Independent functional transfers;Independent with ambulation;Independent [...] (was going to PT and swimming at [facility] prior to surgery) Activity Tolerance Endurance [...] the time .) Home ADL Equipment-Currently Using Materials Supervisor Additional Comments Pt was independent with ambulation with occasional use of walking sticks. States both knees don't bend well and has plans to get her left knee done at a later time. Prior Function Level of Charles Independent with ADLs;Independent with ambulation;Independent with homemakingwith [...] AE with SBA. Educated on use of pilot highway patrol if ever needed. Educated pt on use [...] Initiallyneeds cues to push walker instead of spanish moss picker. Completes toilet/chair transfers with SBA and [...] 100 mL/hr, Last Rate: 100 mL/hr (08/24/23 772) PRN Meds:. albuterol HFA aluminum-magnesium hydroxide-simethicone gabapentin [...] Yanelis Romero NP Orthopedics/Anesthesia [facility] [phone] Surgical Home-orthopedics Cosigned by Adrien Camejo MD [...] 0.5 % ophthalmic solution -- -- -- Reynlado Antonio MD aspirin 81 mg enteric coated [...] Problem Relation Age of Onset Other Father [place] age 50, CABG; Heart attack Father Arthritis [...] during recovery from upcoming surgery. Going to [employer] 3 times a week for swimming Labs [...] S/P SAVR with [address] [employer] [place] prosthesis. Peak Velocity 1.70 m/s. Mean gradient [...] Medication protocol when under care of a DIRECTOR OF BUSINESS APPLICATIONS Planned anesthesia: Spinal, PNB - single shot and regional for postop pain per surgeon request Lower extremity: saphenous nerve block - subsartorial approach Postoperative Plan: Postoperative administration opioids intended. No postoperative mechanical ventilation intended. Patient's planned disposition post procedure is Floor. Informed Consent: Discussed plan with DIRECTOR OF BUSINESS APPLICATIONS. Anesthesia plan and risks discussed with patient. [...] Implant Name Type Inv. Item Serial No. Lance Crewmember/Mlrs Sergeant Lot No. [id number] No. Used Action [employer] Simplex P Radiopaque Full Dose Cement Bone Sterile 6191-1-010 - [id number] [employer] Simplex P Radiopaque Full Dose Cement Bone Sterile 6191-1-010 [employer] [id number] Right 1 Implanted [employer] Ascent Maxim 63mm 1 Piece Cruciate Fin Knee Tray Tibial Interlok [id number] - [id number] [employer] Ascent Maxim 63mm 1 Piece Cruciate Fin Knee Tray Tibial Interlok [id number] [employer] [id number] Right 1 Implanted [employer] Vanguard 60mm Cruciate Retaining Knee Right Component Femoral [id number] - [id number] [employer] Vanguard 60mm Cruciate Retaining Knee Right Component Femoral [id number] [employer] [id number] Right 1 Implanted [employer] BEARING [id number] VANGUARD ARCOM KNEE CRUCIATE RETAIN DIRECT [id number] - [id number] [employer] BEARING 63/[id number] VANGUARD ARCOM KNEE CRUCIATE RETAIN DIRECT [id number] [employer] [id number] Right 1 Implanted ANESTHESIA: Spinal anesthesia and adductor canal block SURGEON: Adrien Camejo MD KEYSEATER OPERATOR: Adaptive Physical Education Teacher: Steve Ramos RN Adaptive Physical Education Teacher Relief: Mary Franz RN Scrub Relief: Bernie Jacobson ST Scrub: Yvonne Michelle ST BLACK ASH BURNER OPERATOR: Blanquita Nino NP; Amanuel Parry RN .................................................. [...] with interrupted #1 Vicryl suture in a [id number] fashion. The subcutaneous tissue was closed with [...] Results * eGFR (08/25/2023 5:41 AM CDT) [facility] eGFR >90 >=60 mL/min/1. 73 m2 Comment: [...] ORDERABLES Final R esult Performing Organization Address [facility] de Phone Number [facility] [address] [place] [address] * Protime-INR (08/25/2023 5:41 AM CDT) PT 12.7 10.3 - 13.7 sec INR 1.11 0.90 - 1.20 [facility] Comment: Interpretive data Oral anticoagulant therapeutic ranges: Venous thromboembolism prophylaxis or treatment: 2.0-3.0 CARDIOLOGY Standard range: 2.0-3.0 High-intensity range: 2.5-3.5 Refer to indication-specific guidelines for appropriate target ranges for prosthetic heart valve replacement. Current interpretive data was last revised on 2019. Blood 08/25/2023 5:41 AM CDT 08/25/2023 5:56 AM CDT Adrien Camejo MD LAB BLOOD ORDERABLES Final R esult Performing Organization Address [facility] Co de Phone Number [facility] [address] Department [place] [address] * (ABNORMAL) CBC without differential (08/25/2023 5:41 AM CDT) [facility] WBC 7.0 3.8 - 9.9 K/cumm Hgb 10.4(L) 11.9 - 15.5 g/dL [facility] Hct 32.9(L) 35.6 - 45.5 % [facility] Plt 148(L) 150 - 400 K/cumm [facility] MPV 10.7 9.1 - 12.3 fL [facility] RBC 3.35(L) 3.90 - 5.20 M/cumm [facility] MCV 98.2(H) 81.3 - 96.4 fL [facility] MCH 31.0 27.1 - 33.3 pg [facility] MCHC 31.6(L) 32.3 - 35.7 g/dL [facility] RDW CV 13.2 11.1 - 14.9 % [facility] RDW SD 47.6 35.7 - 48.1 fL [facility] NRBC abs 0.00 0.00 - 0.01 K/cumm [facility] Blood 08/25/2023 5:41 AM CDT 08/25/2023 5:56 AM CDT Adrien Camejo MD LAB BLOOD ORDERABLES Final R esult [facility] [address] Department [place] [address] * (ABNORMAL) Basic metabolic panel (08/25/2023 5:41 AM CDT) [facility] Sodium 141 135 - 145 mmol/L Potassium, pl 4.4 3.3 - 4.9 mmol/L [facility] Chloride 107 97 - 110 mmol/L [facility] CO2 26 22 - 32 mmol/L [facility] Anion gap 8 2 - 15 mmol/L [facility] BUN 15 6 - 25 mg/dL [facility] Creatinine 0.47(L) 0.60 - 1.10 mg/dL [facility] Glucose 89 70 - 199 mg/dL [facility] Comment: Interpretive Data Fasting glucose >/= 126 [...] 2022. Calcium 8.8 8.5 - 10.3 mg/dL [facility] Blood 08/25/2023 5:41 AM CDT 08/25/2023 5:56 AM CDT Adrien Camejo MD LAB BLOOD ORDERABLES Final R esult Performing Organization Address [facility]/ZIP Co de Phone Number [facility] [address] [place] [address] * aPTT (08/25/2023 5:41 AM CDT) [facility] Signature aPTT 32 28 - 38 sec Comment: Interpretive Data Heparin therapeutic range: 66.0 - 100.0 seconds. Range based on correlation with therapeutic heparin activity range of 0.3 - 0.7 Units/mL. Current interpretive data was last revised on 2023. Blood 08/25/2023 5:41 AM CDT 08/25/2023 5:56 AM CDT Narrative [facility] - 08/25/2023 6:16 AM CDT Baseline prior to warfarin initiation. Adrien Camejo MD LAB BLOOD ORDERABLES Final R esult Performing Organization Address City/[facility]/ZIP Co de Phone Number [facility] [address] Department [place] [address] * Protime-INR (08/24/2023 8:41 AM CDT) PT 12.2 10.3 - 13.7 sec INR 1.07 0.90 - 1.20 [facility] Comment: Interpretive data Oral anticoagulant therapeutic ranges: Venous thromboembolism prophylaxis or treatment: 2.0-3.0 CARDIOLOGY Standard range: 2.0-3.0 High-intensity range: 2.5-3.5 Refer to indication-specific guidelines for appropriate target ranges for prosthetic heart valve replacement. Current interpretive data was last revised on 2019. Blood 08/24/2023 8:41 AM CDT 08/24/2023 8:43 AM CDT us Chel Zurita NP LAB BLOOD ORDERABLES Antonina hernandez Result [facility] [address] Department [place] [address] documented in this encounter Visit Diagnoses Diagnosis [...] 2 puff, inhalation, Every 4 hours PRN (respiratory therapy aide), wheezing, Starting on Thu08/24/23 at 1737 aluminum-magnesium [...] 08/24/2023 documented in this encounter Care Teams Fiberglass Product Tester Relationship Specialty Start Date End Date Sanket Waldron DO [address] [place] [id number] PCP - General 05/26/23 Adrien Camejo MD [address] [facility] [address] [place] [address] Consulting Physician Orthopedic Surgery 08/25/23 documented as of this encounter
--- OUTSIDE RECORDS SUMMARY | 2024-04-01 12:03 | XMS_ITS | Encounter Summary ---
Author Organization [facility] Healthcare Address [address] [place] [address] Care Team Providers Care Cerner Analyst Name Role Phone Sanket Waldron Primary Care Provide r Reason for Visit * Auth/Cert (Routine) Specialty Diagnoses / Procedures Referred By Contac t Referred To Contact Diagnoses Primary osteoarthritis of right knee Primary osteoarthritis of right knee [M17.11] Procedures NV ARTHRP KNE CONDYLE&PLATU MEDIAL&LAT COMPARTMENTS NV ARTHROPLASTY PATELLA W/O PROSTHESIS Right Total Knee Arthroplasty Referral ID Status Reason Start Date Expiration Date Visits Re quested Visits Authorized [id number] 1 1 Encounter Details Date Type Department Care Team (Late st Contact Info) Description 08/24/2023 10:30 AM CDT - 08/24/2023 1:45 PM CDT Surgery [facility] Operating Room [address] [place] [id number] Adrien Camejo MD [address] [facility] [address] [place] [address] Right Total Knee Arthroplasty Surgery Details Date/Time Status Location OR Service Patient Class Case Class Case Type Trauma Case? 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 In general, Percocetis for severe pain and [place] for moderate pain. Both of these are [...] need to come to the office to cotton picker a hand-written prescription. Refills are NOT [...] Emergency exchange after hours Marialuisa (Dr. Camejo's library serials assistant) Special Instructions: Continue following PT/OT instructions [...] Wound Healing and Your Diet (General Information) (Mozambican) * Laxative, Stool Softeners (By mouth) (Mozambican) * Hydrocodone/Acetaminophen (By mouth) (Mozambican) * Oxycodone, Rapid Release (By mouth) (Mozambican) * Meloxicam (By mouth) (Mozambican) documented in this encounter Medications at Time [...] the time .) Home ADL Equipment-Currently Using Wood Inspector Prior Function Level of Gregg Independent with ADLs;Independent functional transfers;Independent with ambulation;Independent [...] (was going to PT and swimming at [facility] prior to surgery) Activity Tolerance Endurance [...] the time .) Home ADL Equipment-Currently Using Wood Inspector Additional Comments Pt was independent with ambulation with occasional use of walking sticks. States both knees don't bend well and has plans to get her left knee done at a later time. Prior Function Level of Gregg Independent with ADLs;Independent with ambulation;Independent with homemakingwith [...] AE with SBA. Educated on use of air operations manager if ever needed. Educated pt on use [...] Initiallyneeds cues to push walker instead of cotton picker. Completes toilet/chair transfers with SBA and [...] Yanelis Romero NP Orthopedics/Anesthesia [facility] [phone] Surgical Home-orthopedics Cosigned by Adrien Camejo MD [...] Problem Relation Age of Onset Other Father [place] age 50, CABG; Heart attack Father Arthritis [...] during recovery from upcoming surgery. Going to [email or web address] 3 times a week for swimming Labs [...] S/P SAVR with [address] Skip [place] prosthesis. Peak Velocity 1.70 m/s. Mean gradient [...] Medication protocol when under care of a LAST IRONER Planned anesthesia: Spinal, PNB - single shot and regional for postop pain per surgeon request Lower extremity: saphenous nerve block - subsartorial approach Postoperative Plan: Postoperative administration opioids intended. No postoperative mechanical ventilation intended. Patient's planned disposition post procedure is Floor. Informed Consent: Discussed plan with LAST IRONER. Anesthesia plan and risks discussed with patient. [...] Implant Name Type Inv. Item Serial No. Rubber Worker Lot No. LRB No. Used Action [employer] Simplex P Radiopaque Full Dose Cement Bone Sterile 6191-1-010 - [id number] [employer] Simplex P Radiopaque Full Dose Cement Bone Sterile 6191-1-010 [place] [employer] [id number] Right 1 Implanted [employer] Ascent Maxim 63mm 1 Piece Cruciate Fin Knee Tray Tibial Interlok [id number] - [id number] [employer] Ascent Maxim 63mm 1 Piece Cruciate Fin Knee Tray Tibial Interlok [id number] [employer] [id number] Right 1 Implanted [employer] Vanguard 60mm Cruciate Retaining Knee Right Component Femoral [id number] - [id number] [employer] Vanguard 60mm Cruciate Retaining Knee Right Component Femoral [id number] [employer] [id number] Right 1 Implanted [employer] BEARING [id number] VANGUARD ARCOM KNEE CRUCIATE RETAIN DIRECT [id number] - [id number] [employer] BEARING 63/[id number] VANGUARD ARCOM KNEE CRUCIATE RETAIN DIRECT [id number] [employer] [id number] Right 1 Implanted ANESTHESIA: Spinal anesthesia and adductor canal block SURGEON: Adrien Camejo MD SUPERVISOR POLICY CHANGE CLERKS: Heel Cover Softener: Steve Ramos RN Heel Cover Softener Relief: Mary Franz RN Scrub Relief: Bernie Jacobson ST Scrub: Yvonne Michelle ST PARAGLIDING INSTRUCTOR: Blanquita Nino NP; Amanuel Parry RN .................................................. [...] with interrupted #1 Vicryl suture in a [id number] fashion. The subcutaneous tissue was closed with [...] MD LAB BLOOD ORDERABLES Final R esult [facility] [address] Department [place] [address] * Protime-INR (08/25/2023 5:41 AM CDT) PT 12.7 10.3 - 13.7 sec INR 1.11 0.90 - 1.20 [facility] Comment: Interpretive data Oral anticoagulant therapeutic ranges: Venous thromboembolism prophylaxis or treatment: 2.0-3.0 CARDIOLOGY Standard range: 2.0-3.0 High-intensity range: 2.5-3.5 Refer to indication-specific guidelines for appropriate target ranges for prosthetic heart valve replacement. Current interpretive data was last revised on 2019. Blood 08/25/2023 5:41 AM CDT 08/25/2023 5:56 AM CDT Adrien Camejo MD LAB BLOOD ORDERABLES Final R esult Performing Organization Address [facility] Co de Phone Number [facility] [address] [employer] [place], [place] [id number] * (ABNORMAL) CBC without differential (08/25/2023 5:41 AM CDT) [facility] WBC 7.0 3.8 - 9.9 K/cumm Hgb 10.4(L) 11.9 - 15.5 g/dL [facility] Hct 32.9(L) 35.6 - 45.5 % [facility] Plt 148(L) 150 - 400 K/cumm [facility] MPV 10.7 9.1 - 12.3 fL [facility] RBC 3.35(L) 3.90 - 5.20 M/cumm [facility] MCV 98.2(H) 81.3 - 96.4 fL [facility] MCH 31.0 27.1 - 33.3 pg [facility] MCHC 31.6(L) 32.3 - 35.7 g/dL [facility] RDW CV 13.2 11.1 - 14.9 % [facility] RDW SD 47.6 35.7 - 48.1 fL [facility] NRBC abs 0.00 0.00 - 0.01 K/cumm [facility] Blood 08/25/2023 5:41 AM CDT 08/25/2023 5:56 AM CDT Adrien Camejo MD LAB BLOOD ORDERABLES Final R esult Performing Organization Address City/[facility]/ZIP Co de Phone Number [facility] [address] [employer] [place], [place] [id number] * (ABNORMAL) Basic metabolic panel (08/25/2023 5:41 AM CDT) Pathologist [facility] Sodium 141 135 - 145 mmol/L Potassium, pl 4.4 3.3 - 4.9 mmol/L [facility] Chloride 107 97 - 110 mmol/L [facility] CO2 26 22 - 32 mmol/L [facility] Anion gap 8 2 - 15 mmol/L [facility] BUN 15 6 - 25 mg/dL [facility] Creatinine 0.47(L) 0.60 - 1.10 mg/dL [facility] Glucose 89 70 - 199 mg/dL [facility] Comment: Interpretive Data Fasting glucose >/= 126 [...] 2022. Calcium 8.8 8.5 - 10.3 mg/dL [facility] Blood 08/25/2023 5:41 AM CDT 08/25/2023 5:56 AM CDT Adrien Camejo MD LAB BLOOD ORDERABLES Final R esult [facility] [address] Department [place] [address] * aPTT (08/25/2023 5:41 AM CDT) aPTT 32 28 - 38 sec Comment: Interpretive Data Heparin therapeutic range: 66.0 - 100.0 seconds. Range based on correlation with therapeutic heparin activity range of 0.3 - 0.7 Units/mL. Current interpretive data was last revised on 2023. Blood 08/25/2023 5:41 AM CDT 08/25/2023 5:56 AM CDT Narrative [facility] - 08/25/2023 6:16 AM CDT Baseline prior to warfarin initiation. Adrien Camejo MD LAB BLOOD ORDERABLES Final R esult Performing Organization Address [facility] Co de Phone Number [facility] [address] [facility] [place] [address] * Protime-INR (08/24/2023 8:41 AM CDT) PT 12.2 10.3 - 13.7 sec INR 1.07 0.90 - 1.20 [facility] Comment: Interpretive data Oral anticoagulant [...] ORDERABLES Antonina l Result Performing Organization Address [facility] de Phone Number [facility] [address] [facility] [place] [address] documented in this encounter Visit Diagnoses Diagnosis [...] Indications: Hypocalcemia Prevention 2153 (Given - Provider: Fiasal Middleton) 0739 (Given - Provider: Kalpana Andre [...] 30 seconds. 1001 (Given - Provider: Oralia Ptee RN) phenylephrine (JESSICA-SYNEPHRINE) 1 mg/10 mL (100 [...] 2 puff, inhalation, Every 4 hours PRN (supervisor correspondence section), wheezing, Starting on Thu08/24/23 at 1737 aluminum-magnesium [...] at 1220, Intra-Op 1220 (Given - Provider: Adrein Camejo MD - Comment: Mixed with bone [...] 08/24/2023 documented in this encounter Care Teams Cerner Analyst Relationship Specialty Start Date End Date Sanket Waldron DO [address] [place] [address] PCP - General 05/26/23 documented as of this encounter
--- OUTSIDE RECORDS SUMMARY | 2024-04-01 12:04 | XMS_ITS | Encounter Summary ---
Author Organization [facility] Healthcare Address [address] [place] [address] Care Team Providers Care Die Fitter Name Role Phone Jose Lorenzo DO Primary Care Provider [phone] Encounter Details Date Type Department Care Team (Latest Contact Info) Description 05/25/2023 Anticoagulation Visit [facility] Medical Group Cardiology [address] [place] [address] Juany Madrid RN H/O mechanical [...] on file Legal Sex Female 8:13 AM SAFETY ATTENDANT Gender Identity Female 06/01/2020 9:42 PM SAFETY ATTENDANT Sexual Orientation Straight 06/01/2020 9: 42 PM SAFETY ATTENDANT 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
--- OUTSIDE RECORDS SUMMARY | 2024-04-01 12:04 | XMS_ITS | Encounter Summary ---
Author Organization [facility] Medical Group Address [address] [place] [address] Care Team Providers Care Equipment Driver Name Role Phone Jose Lorenzo DO Primary Care Provider [phone] Encounter Details Date Type Department Care Team (Late st Contact Info) Description 12/19/2022 Telephone [facility] Medical Group Cardiology [address] [place] [address] Bindu Gaines MD [address] [place] [address] Social History Tobacco Use Types [...] on file Legal Sex Female 8:13 AM HEAD NURSE Gender Identity Female 06/01/2020 9:42 PM HEAD NURSE Sexual Orientation Straight 06/01/2020 9: 42 PM HEAD NURSE 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 Will forward to [facility] as FYI. documented in this encounter Plan of Treatment Not on file documented as of this encounter Visit Diagnoses Not on filedocumented in this encounter Care Teams Equipment Driver Relationship Specialty Start Date End Date Jose Lorenzo DO PCP - General Family Medicine 09/23/22 05/25/23 documented as of this encounter
--- OUTSIDE RECORDS SUMMARY | 2024-04-01 12:04 | XMS_ITS | Encounter Summary ---
Author Organization [facility] Healthcare Address [address] [place] [address] Care Team Providers Care Food And Beverage Attendant Name Role Phone Jose Lorenzo DO Primary Care Provider [phone] Encounter Details Date Type Department Care Team (Latest Contact Info) Description 05/06/2023 Anticoagulation Visit [facility] Medical Group Cardiology [address] [place] [address] Penny Wilks, BHAVANA H/O mechanical [...] on file Legal Sex Female 8:13 AM LINDERMAN OPERATOR Gender Identity Female 06/01/2020 9:42 PM LINDERMAN OPERATOR Sexual Orientation Straight 06/01/2020 9: 42 PM LINDERMAN OPERATOR 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
--- OUTSIDE RECORDS SUMMARY | 2024-04-01 12:04 | XMS_ITS | Encounter Summary ---
Author Organization [facility] Healthcare Address [address] [place] [address] Care Team Providers Care Principal Consultant Name Role Phone Jose Lorenzo Primary Care Provider [phone] Encounter Details Date Type Department Care Team (Late st Contact Info) Description 01/15/2023 Telephone [facility] Medical Group Cardiology [address] [place] [address] Bindu Gaines MD [address] [place] [address] Social History Tobacco Use Types [...] on file Legal Sex Female 8:13 AM PORTABLE PINCH RIVETER Gender Identity Female 06/01/2020 9:42 PM PORTABLE PINCH RIVETER Sexual Orientation Straight 06/01/2020 9: 42 PM PORTABLE PINCH RIVETER 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 * Telephone Encounter - Marley Tran - 01/15/2023 8:36 AM CDT Pt is currently at [facility]. Requesting INR order be faxed to [phone]. Thank you. Contact: documented in this encounter [...] anticoagulants documented in this encounter Care Teams Principal Consultant Relationship Specialty Start Date End Date Jose Lorenzo DO PCP - General Family Medicine 09/23/22 05/25/23 documented as of this encounter
--- OUTSIDE RECORDS SUMMARY | 2024-04-01 12:04 | XMS_ITS | Encounter Summary ---
Author Organization [facility] Medical Group Address [address] [place] [address] Care Team Providers Care Maintenance Data Analyst Name Role Phone Jose Lorenzo DO Primary Care Provider [phone] Encounter Details Date Type Department Care Team (Late st Contact Info) Description 12/29/2022 Telephone [facility] Medical Group Cardiology [address] [place] [address] Bindu Gaines MD [address] [place] [address] Social History Tobacco Use Types [...] on file Legal Sex Female 8:13 AM USABILITY STRATEGIST Gender Identity Female 06/01/2020 9:42 PM USABILITY STRATEGIST Sexual Orientation Straight 06/01/2020 9: 42 PM USABILITY STRATEGIST 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
--- OUTSIDE RECORDS SUMMARY | 2024-04-01 12:04 | XMS_ITS | Encounter Summary ---
Author Organization [facility] Healthcare Address [address] [place] [address] Care Team Providers Care Manager Transition Name Role Phone Jose Lorenzo DO Primary Care Provider [phone] Reason for Visit * Cardiology (Routine) - Closed Specialty Diagnoses / Procedures Referred By Contac t Referred To Contact Diagnoses H/O mechanical aortic valve replacement Procedures Transthoracic Echo (TTE) Complete W Doppler/CF Lalo Santamaria MD Phone: tel: fax: [facility] Medical Group Referral ID Status Reason Start Date Expiration Date Visits Re quested Visits Authorized [id number] Closed 01/07/2023 02/06/2024 1 1 Encounter Details Date Type Department Care Team (Latest Contact Info) Description 03/04/2023 9:15 AM LOUNGE CAR ATTENDANT Ancillary Procedure [facility] Medical Group Cardiology [address] [place] [address] H/O mechanical aortic valve replacement [...] on file Legal Sex Female 8:13 AM LOUNGE CAR ATTENDANT Gender Identity Female 06/01/2020 9:42 PM LOUNGE CAR ATTENDANT Sexual Orientation Straight 06/01/2020 9: 42 PM LOUNGE CAR ATTENDANT 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 Not on file Not on file documented as of this encounter Last Filed Vital Signs Vital Sign Reading Time Taken Comments Blood Pressure 100/70 03/04/2023 10:05 AM LOUNGE CAR ATTENDANT Pulse - - Temperature - - Respiratory [...] DOPPLER/CF WO CONTRAST Routine 03/04/2023 10:06 AM LOUNGE CAR ATTENDANT H/O mechanical aortic valve replacement documented in this encounter Results * TRANSTHORACIC ECHO (TTE) COMPLETE W DOPPLER/CF WO CONTRAST (03/04/2023 10:06 AM LOUNGE CAR ATTENDANT) Anatomical Region Laterality Modality Ultrasound 03/04/2023 9:46 AM LOUNGE CAR ATTENDANT Narrative 03/04/2023 12:25 PM LOUNGE CAR ATTENDANT [facility] Medical Group Cardiology [address] [address] [address], [place] [address] P:[phone] P:[phone] Echocardiographic Report Patient Name: YESSY NIXON M : 1955 Study Date: 03/04/2023 9:46:23 AM Gender: F Tech: Location: [facility] Provider: LALO SANTAMARIA ?Height(Cm): 155 BSA: 1.62 [...] Site: Exam was interpreted at [facility]. Left Ventricle: Normal left ventricular size. [...] S/P SAVR with [address] Skip [place] prosthesis. Peak Velocity of 1.70 m/s. Mean [...] S/P SAVR with [address] Skip [place] prosthesis. Peak Velocity 1.70 m/s. Mean gradient 7 mmHg. Gradients normal for valve type and size. RVSP 27 mmHg. Trivial to mild tricuspid regurgitation. Electronically Signed By: Peng Ann MD, [facility] 2023-03-04 12:24:47 LOUNGE CAR ATTENDANT Procedure Note Peng Ann MD - 03/04/2023 [facility] Medical Group Cardiology [address], [place] [address] [address], [place] [address] P:[phone] P:[phone] Echocardiographic Report Patient Name: YESSY NIXON M : 1955 Study Date: 03/04/2023 9:46:23 AM Gender: F Tech: Location: [place] Ref Provider: LALO SANTAMARIA Height(Cm): 155 BSA: [...] Site: Exam was interpreted at [facility]. Left Ventricle: Normal left ventricular size. [...] S/P SAVR with [address] Skip [place] prosthesis. Peak Velocity of 1.70 m/s. Mean [...] S/P SAVR with [address] Skip [place] prosthesis. Peak Velocity 1.70m/s. Mean gradient 7 mmHg. Gradients normal for valve type and size. RVSP 27 mmHg. Trivial to mild tricuspid regurgitation. Electronically Signed By: Peng Ann MD, [facility] 2023-03-04 12:24:47 LOUNGE CAR ATTENDANT Lalo Santamaria MD CV ECHO PROCEDURES Final Re sult documented in this encounter Visit Diagnoses Diagnosis H/O mechanical aortic valve replacement documented in this encounter Care Teams Manager Transition Relationship Specialty Start Date End Date Jose Lorenzo DO PCP - General Family Medicine 09/23/22 05/25/23 documented as of this encounter
--- OUTSIDE RECORDS SUMMARY | 2024-04-01 12:04 | XMS_ITS | Encounter Summary ---
Author Organization [facility] Healthcare Address [address] [place] [address] Care Team Providers Care Cleaner Housekeeping Name Role Phone Jose Lorenzo Primary Care Provider [phone] Encounter Details Date Type Department Care Team (Latest Contact Info) Description 03/23/2023 Anticoagulation Visit [facility] Medical Group Cardiology [address] [place] [address] Juany Madrid RN H/O mechanical [...] on file Legal Sex Female 8:13 AM BULLDOZER OPERATOR Gender Identity Female 06/01/2020 9:42 PM BULLDOZER OPERATOR Sexual Orientation Straight 06/01/2020 9: 42 PM BULLDOZER OPERATOR 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
--- OUTSIDE RECORDS SUMMARY | 2024-04-01 12:04 | XMS_ITS | Encounter Summary ---
Author Organization [facility] Healthcare Address [address] [place] [address] Care Team Providers Care Windows Technical Specialist Name Role Phone Sanket Waldron Primary Care Provide r Encounter Details Date Type Department Care Team (Latest Contact Info) Description 06/08/2023 Anticoagulation Visit [facility] Medical Group Cardiology [address] [place] [address] Juany Madrid RN H/O mechanical [...] on file Legal Sex Female 8:13 AM STUDENT SUCCESS COACH Gender Identity Female 06/01/2020 9:42 PM STUDENT SUCCESS COACH Sexual Orientation Straight 06/01/2020 9: 42 PM STUDENT SUCCESS COACH 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
--- OUTSIDE RECORDS SUMMARY | 2024-04-01 12:04 | XMS_ITS | Encounter Summary ---
Author Organization [facility] Healthcare Address [address] [place] [address] Care Team Providers Care Bench Jeweler Name Role Phone Jose Lorenzo Primary Care Provider [phone] Encounter Details Date Type Department Care Team (Late st Contact Info) Description 03/18/[address] 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 Pt reports she will have to get INR lab work done sometime next week. Contact:[phone] SUPERINTENDENT documented in this encounter Plan of Treatment Not on file documented as of this encounter Visit Diagnoses Not on filedocumented in this encounter Care Teams Bench Jeweler Relationship Specialty Start Date End Date Jose Lorenzo DO PCP - General Family Medicine 09/23/22 05/25/23 documented as of this encounter
--- OUTSIDE RECORDS SUMMARY | 2024-04-01 12:04 | XMS_ITS | Encounter Summary ---
Author Organization [facility] Healthcare Address [address] [place] [address] Care Team Providers Care Spice Miller Hammer Mill Name Role Phone Sanket Waldron Primary Care Provide r Encounter Details Date Type Department Care Team (Latest Contact Info) Description 06/17/2023 12:16 PM HEAVY DUTY MECHANIC - 06/17/2023 11:59 PM HEAVY DUTY MECHANIC Hospital Encounter [facility] at [address] [phone] Right knee pain, unspecified chronicity Discharge Disposition: [...] on file Legal Sex Female 8:13 AM HEAVY DUTY MECHANIC Gender Identity Female 06/01/2020 9:42 PM HEAVY DUTY MECHANIC Sexual Orientation Straight 06/01/2020 9: 42 PM HEAVY DUTY MECHANIC 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 on file Not [...] (VITAMIN D-3) 1,000 unit capsule 4 COVID-19 mRNA,[id number] (PFIZER) 30 mcg/0.3 mL suspension for reconstitution [...] Read Routine (OP Routine) 06/17/2023 12:32 PM HEAVY DUTY MECHANIC Right knee pain, unspecified chronicity documented in this encounter Results * XR Knee Right 4 or More Views (06/17/2023 12:32 PM HEAVY DUTY MECHANIC) Anatomical Region Laterality Modality Lower Extremities, Knee Right [facility] 06/17/2023 3:45 PM HEAVY DUTY MECHANIC Impressions 06/17/2023 3:45 PM HEAVY DUTY MECHANIC FINDINGS/IMPRESSION: Right knee: There is no acute [...] there is advanced joint space narrowing with cqyd-rv-duca contact. ??There is trace knee joint effusion. ??There is no significant soft tissue swelling. Electronically signed by: Serafin Luu MD Narrative 06/17/2023 3:45 PM HEAVY DUTY MECHANIC EXAMINATION: XR KNEE RIGHT 4 OR MORE [...] there is advanced joint space narrowing with kiuj-qx-qehs contact. There is trace knee joint effusion. There is no significant soft tissue swelling. Electronically signed by: Serafin Luu MD us Adrien Camejo MD IMG XR PROCEDURES Final Resu lt documented in this encounter Visit Diagnoses Diagnosis Right knee pain, unspecified chronicity documented in this encounter Care Teams Spice Miller Hammer Mill Relationship Specialty Start Date End Date Sanket Waldron DO [address] [place] [address] PCP - General 05/26/23 documented as of this encounter
--- OUTSIDE RECORDS SUMMARY | 2024-04-01 12:04 | XMS_ITS | Encounter Summary ---
Author Organization [facility] Healthcare Address [address] [place] [address] Care Team Providers Care Laborer Poultry Hatchery Name Role Phone Sanket Waldron Primary Care Provide r Encounter Details Date Type Department Care Team (Latest Contact Info) Description 07/13/2023 Anticoagulation Visit [facility] Medical Group Cardiology [address] [place] [address] Juany Madrid RN H/O mechanical [...] on file Legal Sex Female 8:13 AM PHOTOGRAPHIC SPECIALIST Gender Identity Female 06/01/2020 9:42 PM PHOTOGRAPHIC SPECIALIST Sexual Orientation Straight 06/01/2020 9: 42 PM PHOTOGRAPHIC SPECIALIST 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
--- OUTSIDE RECORDS SUMMARY | 2024-04-01 12:04 | XMS_ITS | Encounter Summary ---
Author Organization [facility] Healthcare Address [address] [place] [address] Care Team Providers Care Resident Director Name Role Phone Jose Lorenzo Primary Care Provider [phone] Encounter Details Date Type Department Care Team (Latest Contact Info) Description 03/30/2023 Anticoagulation Visit [facility] Medical Group Cardiology [address] [place] [address] Juany Madrid RN H/O mechanical [...] on file Legal Sex Female 8:13 AM PROTOTYPE CARPENTER Gender Identity Female 06/01/2020 9:42 PM PROTOTYPE CARPENTER Sexual Orientation Straight 06/01/2020 9: 42 PM PROTOTYPE CARPENTER 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
--- OUTSIDE RECORDS SUMMARY | 2024-04-01 12:04 | XMS_ITS | Encounter Summary ---
Author Organization [facility] Healthcare Address [address] [place] [address] Care Team Providers Care School Resource Officer Name Role Phone Jose Lorenzo DO Primary Care Provider [phone] Encounter Details Date Type Department Care Team (Latest Contact Info) Description 02/13/2023 Anticoagulation Visit [facility] Medical Group Cardiology [address] [place] [address] Huma Trevizo RN H/O mechanical [...] file Legal Sex Female 8:13 AM SUPERVISOR TOY ASSEMBLY Gender Identity Female 06/01/2020 9:42 PM SUPERVISOR TOY ASSEMBLY Sexual Orientation Straight 06/01/2020 9: 42 PM SUPERVISOR TOY ASSEMBLY 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
--- OUTSIDE RECORDS SUMMARY | 2024-04-01 12:04 | XMS_ITS | Encounter Summary ---
Author Organization [facility] Healthcare Address [address] [place] [address] Care Team Providers Care Air And Water Filler Name Role Phone KonstantinyolandaSanket pacheco Primary Care Provide r Adrien Camejo MD Unavailable [phone] Encounter Details Date Type Department Care Team (Late st Contact Info) Description 06/08/2023 Orders Only [facility] Health Information Management [address] [place] [address] Scanning, Provider Social History Tobacco Use Types [...] file Legal Sex Female 8:13 AM SALES DATA ANALYST Gender Identity Female 06/01/2020 9:42 PM SALES DATA ANALYST Sexual Orientation Straight 06/01/2020 9: 42 PM SALES DATA ANALYST 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
--- OUTSIDE RECORDS SUMMARY | 2024-04-01 12:04 | XMS_ITS | Encounter Summary ---
Author Organization [facility] Healthcare Address [address] [place] [address] Care Team Providers Care Clinical Consultant Name Role Phone Sanket Waldron Primary Care Provide r Reason for Visit * Reason Onset Date Comments WArfarin dosing 07/01/2023 Encounter Details Date Type Department Care Team (Late st Contact Info) Description 07/01/2023 Telephone [facility] Medical Group Cardiology [address] [facility] [address] [place] [phone] Bindu Gaines MD [address] [facility] [address] [place] [address] WArfarin dosing Social History Tobacco [...] on file Legal Sex Female 8:13 AM DIE ENGRAVING SUPERVISOR Gender Identity Female 06/01/2020 9:42 PM DIE ENGRAVING SUPERVISOR Sexual Orientation Straight 06/01/2020 9: 42 PM DIE ENGRAVING SUPERVISOR 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 to schedule an early am Thursday draw [...] a Thursday. She will be going to [facility] to have an INR done on Thursday [...] AM CDT Pt can go to [facility] and have a planned lab draw done on a Thursday. We will need to call aheadto schedule th lab draw. Pt prefers 7 am or earliest poss lab draw Fax INR order to [phone]. * Telephone Encounter - Penny Wilks RN [...] AC for proposed RTKR Looks like the [place] valve is a low risk valve, no [...] filedocumented in this encounter Care Teams Clinical Consultant Relationship Specialty Start Date End Date Sanket Waldron DO [address] [place] [address] PCP - General 05/26/23 documented as of this encounter
--- OUTSIDE RECORDS SUMMARY | 2024-04-01 12:04 | XMS_ITS | Encounter Summary ---
Author Organization [facility] Healthcare Address [address] [place] [address] Care Team Providers Care Self Defense Instructor Name Role Phone Jose Lorenzo Primary Care Provider [phone] Encounter Details Date Type Department Care Team (Latest Contact Info) Description 03/20/2023 Anticoagulation Visit [facility] Medical Group Cardiology [address] [place] [address] Juany Madrid RN H/O mechanical [...] on file Legal Sex Female 8:13 AM BIT GATHERER Gender Identity Female 06/01/2020 9:42 PM BIT GATHERER Sexual Orientation Straight 06/01/2020 9: 42 PM BIT GATHERER 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
--- OUTSIDE RECORDS SUMMARY | 2024-04-01 12:04 | XMS_ITS | Encounter Summary ---
Author Organization [facility] Medical Group Address [address] [place] [address] Care Team Providers Care Ammonium Nitrate Neutralizer Name Role Phone Jose Lorenzo DO Primary Care Provider [phone] Encounter Details Date Type Department Care Team (Late st Contact Info) Description 11/20/2022 Telephone [facility] Medical Group Cardiology [address] [place] [address] Bindu Gaines MD [address] [place] [address] Social History Tobacco Use Types [...] on file Legal Sex Female 8:13 AM PARTITION ASSEMBLER Gender Identity Female 06/01/2020 9:42 PM PARTITION ASSEMBLER Sexual Orientation Straight 06/01/2020 9: 42 PM PARTITION ASSEMBLER 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
--- OUTSIDE RECORDS SUMMARY | 2024-04-01 12:04 | XMS_ITS | Encounter Summary ---
Author Organization [facility] Healthcare Address [address] [place] [address] Care Team Providers Care Medical Affairs Leader Name Role Phone Jose Lorenzo DO Primary Care Provider [phone] Sanket Waldron DO Primary Care Provide r Adrien Camejo MD Unavailable [phone] Encounter Details Date Type Department Care Team (Late st Contact Info) Description 04/27/2023 Orders Only [facility] Health Information Management [address] [place] [address] Scanning, Provider Social History Tobacco Use [...] on file Legal Sex Female 8:13 AM RETAIL PLANNING MANAGER Gender Identity Female 06/01/2020 9:42 PM RETAIL PLANNING MANAGER Sexual Orientation Straight 06/01/2020 9: 42 PM RETAIL PLANNING MANAGER 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
--- OUTSIDE RECORDS SUMMARY | 2024-04-01 12:04 | XMS_ITS | Encounter Summary ---
Author Organization [facility] Healthcare Address [address] [place] [address] Care Team Providers Care Brick Cleaner Name Role Phone Jose Lorenzo DO Primary Care Provider [phone] Encounter Details Date Type Department Care Team (Latest Contact Info) Description 01/16/2023 Anticoagulation Visit [facility] Medical Group Cardiology [address] [place] [address] Hmua Trevizo RN H/O mechanical aortic valve replacement [...] on file Legal Sex Female 8:13 AM COMPUTER INSTALLER Gender Identity Female 06/01/2020 9:42 PM COMPUTER INSTALLER Sexual Orientation Straight 06/01/2020 9: 42 PM COMPUTER INSTALLER 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
--- OUTSIDE RECORDS SUMMARY | 2024-04-01 12:04 | XMS_ITS | Encounter Summary ---
Author Organization [facility] Healthcare Address [address] [place] [address] Care Team Providers Care Contract Coordinator Name Role Phone Sanket Waldron Primary Care Provide r Encounter Details Date Type Department Care Team (Latest Contact Info) Description 07/06/2023 Anticoagulation Visit [facility] Medical Group Cardiology [address] [place] [address] Huma Trevizo RN H/O mechanical [...] on file Legal Sex Female 8:13 AM SEASONAL CUSTOMER SERVICE ASSOCIATE Gender Identity Female 06/01/2020 9:42 PM SEASONAL CUSTOMER SERVICE ASSOCIATE Sexual Orientation Straight 06/01/2020 9: 42 PM SEASONAL CUSTOMER SERVICE ASSOCIATE 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
--- OUTSIDE RECORDS SUMMARY | 2024-04-01 12:04 | XMS_ITS | Encounter Summary ---
Author Organization [facility] Healthcare Address [address] [place] [address] Care Team Providers Care Enterprise Application Administrator Name Role Phone Konstantinyolandajunior Sanketmagdi Fisher Primary Care Provide r Encounter Details Date Type Department Care Team (Late st Contact Info) Description 06/23/2023 Telephone [facility] Medical Group Cardiology [address] [place] [address] Bindu Gaines MD [address] [place] [address] Social History Tobacco Use Types [...] file Legal Sex Female 8:13 AM MEDICAL SUPERVISOR Gender Identity Female 06/01/2020 9:42 PM MEDICAL SUPERVISOR Sexual Orientation Straight 06/01/2020 9: 42 PM MEDICAL SUPERVISOR 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 Contact:[phone] documented in this encounter Plan of Treatment Not on file documented as of this encounter Visit Diagnoses Not on filedocumented in this encounter Care Teams Enterprise Application Administrator Relationship Specialty Start Date End Date Sanket Waldron DO [address] [place] [address] PCP - General 05/26/23 documented as of this encounter
--- OUTSIDE RECORDS SUMMARY | 2024-04-01 12:04 | XMS_ITS | Encounter Summary ---
Author Organization [facility] Healthcare Address [address] [place] [address] Care Team Providers Care Chairman And Chief Executive Officer Name Role Phone Sanket Waldron Primary Care Provide r Encounter Details Date Type Department Care Team (Late st Contact Info) Description 07/07/2023 Telephone [facility] Medical Group Cardiology [address] [place] [address] Bindu Gaines MD [address] [place] [address] Social History Tobacco Use Types [...] file Legal Sex Female 8:13 AM INSURANCE HEALTHCARE 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 Gender Identity Female 06/01/2020 9:42 PM INSURANCE HEALTHCARE 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 Sexual Orientation Straight 06/01/2020 9: 42 PM INSURANCE HEALTHCARE 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 Contact:[phone] documented in this encounter Plan of Treatment Not on file documented as of this encounter Visit Diagnoses Not on filedocumented in this encounter Care Teams Chairman And Chief Executive Officer Relationship Specialty Start Date End Date Sanket Waldron DO [address] [place] [address] PCP - General 05/26/23 documented as of this encounter
--- OUTSIDE RECORDS SUMMARY | 2024-04-01 12:04 | XMS_ITS | Encounter Summary ---
Author Organization [facility] Healthcare Address [address] [place] [address] Care Team Providers Care Makeup Sales Advisor Name Role Phone Jose Lorenzo DO Primary Care Provider [phone] Encounter Details Date Type Department Care Team (Latest Contact Info) Description 04/27/2023 Anticoagulation Visit [facility] Medical Group Cardiology [address] [place] [address] Juany Madrid RN H/O mechanical [...] on file Legal Sex Female 8:13 AM SOIL ENGINEER Gender Identity Female 06/01/2020 9:42 PM SOIL ENGINEER Sexual Orientation Straight 06/01/2020 9: 42 PM SOIL ENGINEER 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
--- OUTSIDE RECORDS SUMMARY | 2024-04-01 12:04 | XMS_ITS | Encounter Summary ---
Author Organization [facility] Healthcare Address [address] [place] [address] Care Team Providers Care Credit Verification Clerk Name Role Phone Jose Lorenzo Primary Care Provider [phone] Encounter Details Date Type Department Care Team (Late st Contact Info) Description 02/09/2023 Telephone [facility] Medical Group Cardiology [address] [facility] [address] [place] [address] Bindu Gaines MD [address] [place] [address] Social History Tobacco Use Types [...] on file Legal Sex Female 8:13 AM TISSUE INSERTER Gender Identity Female 06/01/2020 9:42 PM TISSUE INSERTER Sexual Orientation Straight 06/01/2020 9: 42 PM TISSUE INSERTER 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 * Telephone Encounter - Juany Madrid RN - 02/09/2023 11:29 AM CDT Received [employer] message below from pt. Will forward to [facility], please advise. Saw info on B12 and magnesium yesterday, but conflicting info on whether either can be taken with Warfarin? Just want to double check if it???s okay to take or not. Thanks. Emani Donaldson documented in this encounter Plan of Treatment Not on file documented as of this encounter Visit Diagnoses Not on filedocumented in this encounter Care Teams Credit Verification Clerk Relationship Specialty Start Date End Date Jose Lorenzo DO PCP - General Family Medicine 09/23/22 05/25/23 documented as of this encounter
--- OUTSIDE RECORDS SUMMARY | 2024-04-01 12:04 | XMS_ITS | Encounter Summary ---
Author Organization [facility] Address [address] [place] [address] Care Team Providers Care Glass Cut Off Supervisor Name Role Phone Sanket Waldron DO Primary Care Provide r Reason for Referral * Diagnostic Imaging (Routine) - Closed Specialty Diagnoses / Procedures Referred By Chucky acevedo Referred To Contact Diagnoses Left knee pain, unspecified chronicity Procedures XR Knee Left 3 Views Adrien Camejo MD [address] [id number] Phone: tel: fax: [facility] Referral ID Status Reason Start Date Expiration Date Visits Re quested Visits Authorized [id number] Closed 06/17/2023 07/16/2024 1 1 GER ENVIRONMENTAL Reason for Visit * Diagnostic Imaging (Routine) - Closed Specialty Diagnoses / Procedures Referred By Chucky acevedo Referred To Contact Diagnoses Left knee pain, unspecified chronicity Procedures XR Knee Left 3 Views Adrien Camejo MD [address] [id number] Phone: tel: fax: [facility] Referral ID Status Reason Start Date Expiration Date Visits Re quested Visits Authorized [id number] Closed 06/17/2023 07/16/2024 1 1 Encounter Details Date Type Department Care Team (Latest Contact Info) Description 06/17/2023 1:02 PM MANAGER ENVIRONMENTAL - 06/17/2023 11:59 PM MANAGER ENVIRONMENTAL Hospital Encounter [facility] at [address] [phone] Left knee pain, unspecified chronicity Discharge Disposition: [...] file Legal Sex Female 8:13 AM MANAGER ENVIRONMENTAL Gender Identity Female 06/01/2020 9:42 PM MANAGER ENVIRONMENTAL Sexual Orientation Straight 06/01/2020 9: 42 PM MANAGER ENVIRONMENTAL 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 [...] (VITAMIN D-3) 1,000 unit capsule 4 COVID-19 mRNA,[id number] (Arimaz) 30 mcg/0.3 mL suspension for reconstitution 01/24/2021 [...] Read Routine (OP Routine) 06/17/2023 1:17 PM MANAGER ENVIRONMENTAL Left knee pain, unspecified chronicity documented in this encounter Results * XR Knee Left 3 Views (06/17/2023 1:17 PM MANAGER ENVIRONMENTAL) Anatomical Region Laterality Modality Lower Extremities, Knee Left [facility] 06/17/2023 3:45 PM MANAGER ENVIRONMENTAL Impressions 06/17/2023 3:45 PM MANAGER ENVIRONMENTAL FINDINGS/IMPRESSION: Right knee: There is no acute [...] there is advanced joint space narrowing with djam-ed-rggm contact. ??There is trace knee joint effusion. ??There is no significant soft tissue swelling. Electronically signed by: Serafin Luu MD Narrative 06/17/2023 3:45 PM MANAGER ENVIRONMENTAL EXAMINATION: XR KNEE RIGHT 4 OR MORE [...] there is advanced joint space narrowing with rkli-im-yfkw contact. There is trace knee joint effusion. There is no significant soft tissue swelling. Electronically signed by: Serafin Luu MD Adrien Camejo MD IMG XR PROCEDURES Final Resu lt documented in this encounter Visit Diagnoses Diagnosis Left knee pain, unspecified chronicity documented in this encounter Care Teams Glass Cut Off Supervisor Relationship Specialty Start Date End Date Sanket Waldron DO [address] [place] [address] PCP - General 05/26/23 documented as of this encounter
--- OUTSIDE RECORDS SUMMARY | 2024-04-01 12:04 | XMS_ITS | Encounter Summary ---
Author Organization [facility] Address [address] [facility] [address] [place] [address] Care Team Providers Care Contract Paralegal Name Role Phone Jose Lorenzo DO Primary Care Provider [phone] Reason for Referral * Cardiology (Routine) - Closed Specialty Diagnoses / Procedures Referred By Chucky acevedo Referred To Contact Diagnoses H/O mechanical aortic valve replacement Procedures Transthoracic Echo (TTE) Complete W Doppler/CF Bindu Santamaria MD Phone: tel: fax: [facility] Referral ID Status Reason Start Date Expiration Date Visits Re quested Visits Authorized [id number] Closed 01/07/2023 02/06/2024 1 1 Reason for Visit * Reason Comments Annual Exam * Consultation (Routine) - Closed Specialty Diagnoses / Procedures Referred By Chucky acevedo Referred To Contact Cardiology Diagnoses Presence of prosthetic heart valve Jose Lorenzo DO Phone: tel: fax: Bindu Santamaria MD [address] [address] Phone: tel: fax: Referral ID Status Reason Start Date Expiration Date V isits Requested Visits Authorized [id number] Closed Specialty Services Required 09/25/2022 04/12/2023 15 15 Encounter Details Date Type Department Care Team (Late st Contact Info) Description 01/07/2023 11:30 AM CDT Office Visit [facility] Cardiology [address] [place] [address] Bindu Santamaria MD [address] [place] [address] H/O mechanical aortic valve replacement (Primary Dx); [...] on file Legal Sex Female 8:13 AM FILTER SCREEN CLEANER Gender Identity Female 06/01/2020 9:42 PM FILTER SCREEN CLEANER Sexual Orientation Straight 06/01/2020 9: 42 PM FILTER SCREEN CLEANER 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 Guthrie in 2008. [...] also severely disabled, and moved into a correction but it didn't work out and now [...] Problem Relation Age of Onset Other Father [place] age 50, CABG; Heart attack Father Arthritis [...] 01/07/2023), Disp: 4 tablet/capsule, Rfl: 3 COVID-19 mRNA,[id number] (Genwords) 30 mcg/0.3 mL suspension for reconstitution, , [...] mmHg --> Aortic valve replacement, 19 mm Hazel Hurst valve 2008: EF 63%, LYNSEY 1.0-1.1 cm2, [...] year, sooner if needed Bindu Santamaria MD, [facility] Office: [phone] or [phone] This note is dictated and transcribed by with assistance from [employer] Direct [employer]. Candlemaker variances may occur. Despite proofreading, typographical errors [...] W DOPPLER/CF WO CONTRAST (03/04/2023 10:06 AM FILTER SCREEN CLEANER) Anatomical Region Laterality Modality Ultrasound 03/04/2023 9:46 AM FILTER SCREEN CLEANER Narrative 03/04/2023 12:25 PM FILTER SCREEN CLEANER [facility] Cardiology [address] [facility] [address], [place] [address] [address] [facility] [address], [place] [address] P:[phone] P:[phone] Echocardiographic Report Patient Name: YESSY NIXON M : 1955 Study Date: 03/04/2023 9:46:23 AM Gender: F Tech: NATASHA Location: [place] Ref Provider: BINDU SANTAMARIA ?Height(Cm): 155 BSA: [...] Interpretation Site: Exam was interpreted at [facility]. Left Ventricle: Normal left ventricular size. Left [...] S/P SAVR with [address] Skip Hazel Hurst prosthesis. Peak Velocity of 1.70 m/s. Mean [...] S/P SAVR with [address] Skip Hazel Hurst prosthesis. Peak Velocity 1.70 m/s. Mean gradient 7 mmHg. Gradients normal for valve type and size. RVSP 27 mmHg. Trivial to mild tricuspid regurgitation. Electronically Signed By: Peng Ann MD, [facility] 2023-03-04 12:24:47 FILTER SCREEN CLEANER Procedure Note Peng Ann MD - 03/04/2023 [facility] Cardiology [address] [facility] [address], [place] [address] [address] [facility] [address], [place] [address] P:[phone] P:[phone] Echocardiographic Report Patient Name: YESSY NIXON M : 1955 Study Date: 03/04/2023 9:46:23 AM Gender: F Tech: NATASHA Location: [place] Ref Provider: BINDU SANTAMARIA Height(Cm): 155 BSA: [...] Interpretation Site: Exam was interpreted at [facility]. Left Ventricle: Normal left ventricular size. Left [...] S/P SAVR with [address] Skip Hazel Hurst prosthesis. Peak Velocity of 1.70 m/s. Mean [...] S/P SAVR with [address] Hazel Hurst prosthesis. Peak Velocity 1.70m/s. Mean gradient 7 mmHg. Gradients normal for valve type and size. RVSP 27 mmHg. Trivial to mild tricuspid regurgitation. Electronically Signed By: Peng Ann MD, [facility] 2023-03-04 12:24:47 FILTER SCREEN CLEANER us Bindu Santamaria MD CV ECHO PROCEDURES [...] 01/07/2023 documented in this encounter Care Teams Contract Paralegal Relationship Specialty Start Date End Date Jose Lorenzo DO PCP - General Family Medicine 09/23/22 05/25/23 documented as of this encounter
--- OUTSIDE RECORDS SUMMARY | 2024-04-01 12:04 | XMS_ITS | Encounter Summary ---
Author Organization [facility] Address [address] [facility] [address] [place] [address] Care Team Providers Care Application Infrastructure Engineer Name Role Phone Jose Lorenzo DO Primary Care Provider Encounter Details Date Type Department Care Team (Late st Contact Info) Description 10/29/2022 Telephone [facility] Cardiology [address] [place] [address] Dat Chauhan MD [address] [facility] [address] [place] [address] Social History Tobacco Use Types [...] on file Legal Sex Female 8:13 AM MODEL HOME SALES GREETER Gender Identity Female 06/01/2020 9:42 PM MODEL HOME SALES GREETER Sexual Orientation Straight 06/01/2020 9: 42 PM MODEL HOME SALES GREETER 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
--- OUTSIDE RECORDS SUMMARY | 2024-04-01 12:04 | XMS_ITS | Encounter Summary ---
Author Organization [facility] Address [address] [place] [address] Care Team Providers Care Hand Stonecutter Name Role Phone Konstantinyolandajunior Sanketmagdi Fisher Primary Care Provide r Encounter Details Date Type Department Care Team (Late st Contact Info) Description 07/01/2023 Telephone [facility] Cardiology [address] [place] [address] Bindu Gaines MD [address] [place] [address] Social History Tobacco Use Types [...] on file Legal Sex Female 8:13 AM DIGESTER OPERATOR HELPER Gender Identity Female 06/01/2020 9:42 PM DIGESTER OPERATOR HELPER Sexual Orientation Straight 06/01/2020 9: 42 PM DIGESTER OPERATOR HELPER 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
--- OUTSIDE RECORDS SUMMARY | 2024-04-01 12:04 | XMS_ITS | Encounter Summary ---
Author Organization [facility] Address [address] [place] [address] Care Team Providers Care Physician Aide Name Role Phone Sanket Waldron Primary Care Provide r Reason for Visit * Reason Onset Date Comments Additional Services Or Orders 07/13/2023 Encounter Details Date Type Department Care Team (Late st Contact Info) Description 07/13/2023 Telephone [facility] Cardiology [address] [facility] [address] [place] [phone] Bindu Gaines MD [address] [facility] [address] [place] [address] Additional Services Or Orders Social [...] on file Legal Sex Female 8:13 AM NIGHT SHIFT Gender Identity Female 06/01/2020 9:42 PM NIGHT SHIFT Sexual Orientation Straight 06/01/2020 9: 42 PM NIGHT SHIFT 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
--- OUTSIDE RECORDS SUMMARY | 2024-04-01 12:04 | XMS_ITS | Encounter Summary ---
Author Organization [facility] Address [address] [place] [address] Care Team Providers Care Assembly Supervisor Name Role Phone Jose Lorenzo DO Primary Care Provider [phone] Sanket Waldron DO Primary Care Provide r Adrien Camejo MD Unavailable [phone] Encounter Details Date Type Department Care Team (Late st Contact Info) Description 05/25/2023 Orders Only [facility] Health Information Management [address] [place] [address] Scanning, Provider Social History Tobacco Use [...] on file Legal Sex Female 8:13 AM C CONSULTANT Gender Identity Female 06/01/2020 9:42 PM C CONSULTANT Sexual Orientation Straight 06/01/2020 9: 42 PM C CONSULTANT 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
--- OUTSIDE RECORDS SUMMARY | 2024-04-01 12:04 | XMS_ITS | Encounter Summary ---
Author Organization [facility] Address [address] [facility] [address] [place] [address] Care Team Providers Care Terrazzo Mechanic Helper Name Role Phone Jose Lorenzo DO Primary Care Provider [phone] Encounter Details Date Type Department Care Team (Late st Contact Info) Description 11/06/[address] 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 :) documented in this encounter Plan of Treatment Not on file documented as of this encounter Visit Diagnoses Not on filedocumented in this encounter Care Teams Terrazzo Mechanic Helper Relationship Specialty Start Date End Date Jose Lorenzo DO PCP - General Family Medicine 09/23/22 05/25/23 documented as of this encounter
--- OUTSIDE RECORDS SUMMARY | 2024-04-01 12:04 | XMS_ITS | Encounter Summary ---
Author Organization [facility] Address [address] [facility] [address] [place] [address] Care Team Providers Care College Dean Name Role Phone Jose Lorenzo DO Primary Care Provider [phone] Encounter Details Date Type Department Care Team (Latest Contact Info) Description 11/20/2022 Anticoagulation Visit [facility] Cardiology [address] [place] [address] Juany Madrid RN H/O mechanical [...] file Legal Sex Female 8:13 AM COOK JELLY Gender Identity Female 06/01/2020 9:42 PM COOK JELLY Sexual Orientation Straight 06/01/2020 9: 42 PM COOK JELLY 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
--- OUTSIDE RECORDS SUMMARY | 2024-04-01 12:04 | XMS_ITS | Encounter Summary ---
Author Organization [facility] Address [address] [place] [address] Care Team Providers Care Movie Operator Name Role Phone Sanket Waldron Primary Care Provide r Encounter Details Date Type Department Care Team (Late st Contact Info) Description 07/13/[address] 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
--- OUTSIDE RECORDS SUMMARY | 2024-04-01 12:04 | XMS_ITS | Encounter Summary ---
Author Organization [facility] Address [address] [facility] [address] [place] [address] Care Team Providers Care Motor Vehicle Or Caravan Salesperson Name Role Phone Jose Lorenzo DO Primary Care Provider [phone] Encounter Details Date Type Department Care Team (Latest Contact Info) Description 12/18/2022 Anticoagulation Visit [facility] Cardiology [address] [place] [address] Juany Madrid RN H/O mechanical [...] on file Legal Sex Female 8:13 AM WAREHOUSE SHIPPING ASSOCIATE Gender Identity Female 06/01/2020 9:42 PM WAREHOUSE SHIPPING ASSOCIATE Sexual Orientation Straight 06/01/2020 9: 42 PM WAREHOUSE SHIPPING ASSOCIATE 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
--- OUTSIDE RECORDS SUMMARY | 2024-04-01 12:04 | XMS_ITS | Encounter Summary ---
Author Organization [facility] Address [address] [place] [address] Care Team Providers Care Health Promotion Specialist Name Role Phone Jose Lorenzo DO Primary Care Provider [phone] Sanket Waldron DO Primary Care Provide r Adrien Camejo MD Unavailable [phone] Encounter Details Date Type Department Care Team (Late st Contact Info) Description 02/12/2023 Orders Only [facility] Health Information Management [address] [place] [address] Scanning, Provider Social History Tobacco Use [...] file Legal Sex Female 8:13 AM INDUSTRIAL ROOFER Gender Identity Female 06/01/2020 9:42 PM INDUSTRIAL ROOFER Sexual Orientation Straight 06/01/2020 9: 42 PM INDUSTRIAL ROOFER 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
--- OUTSIDE RECORDS SUMMARY | 2024-04-01 12:04 | XMS_ITS | Encounter Summary ---
Author Organization [facility] Address [address] [place] [address] Care Team Providers Care Turpentiner Name Role Phone Jose Lorenzo Primary Care Provider [phone] Encounter Details Date Type Department Care Team (Late st Contact Info) Description 04/27/2023 Telephone [facility] Cardiology [address] [facility] [address] [place] [address] Rachel Fan NP [address] [place] [address] Social History Tobacco Use Types [...] on file Legal Sex Female 8:13 AM MUSICAL ENGINEER Gender Identity Female 06/01/2020 9:42 PM MUSICAL ENGINEER Sexual Orientation Straight 06/01/2020 9: 42 PM MUSICAL ENGINEER 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 Thanks. CAL ENGINEER * Telephone Encounter - Penny Wilks RN [...] Will still check INR in 3 days) CAL ENGINEER * Telephone Encounter - Penny Wilks RN [...] INR 3 days after initiating the antibiotic CAL ENGINEER documented in this encounter Plan of Treatment Not on file documented as of this encounter Visit Diagnoses Not on filedocumented in this encounter Care Teams Turpentiner Relationship Specialty Start Date End Date Jose Lorenzo DO PCP - General Family Medicine 09/23/22 05/25/23 documented as of this encounter
--- OUTSIDE RECORDS SUMMARY | 2024-04-01 12:05 | XMS_ITS | Encounter Summary ---
Author Organization [facility] Address [address] [place] [address] Care Team Providers Care Transportation Associate Name Role Phone Nathalie Jain MD Primary Care Provider +1- [phone] Reason for Visit * Cardiology (Routine) - Closed Specialty Diagnoses / Procedures Referred By Contac t Referred To Contact Diagnoses H/O mechanical aortic valve replacement Procedures Transthoracic Echo (TTE) Complete W Doppler/CF Su Fan NP [address] [facility] [address] [address] Phone: tel: fax: [facility] Referral ID Status Reason Start Date Expiration Date Visits Re quested Visits Authorized [id number] Closed 02/06/2022 04/06/2022 1 1 Encounter Details Date Type Department Care Team (Latest Contact Info) Description 02/13/2022 2:00 PM CDT Ancillary Procedure [facility] Cardiology [address] [place] [phone] H/O mechanical aortic valve replacement Social History [...] on file Legal Sex Female 8:13 AM ALLIANCE MANAGER Gender Identity Female 06/01/2020 9:42 PM ALLIANCE MANAGER Sexual Orientation Straight 06/01/2020 9: 42 PM ALLIANCE MANAGER 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 Electronically Signed By: Dat Chauhan MD, [facility] 2022-02-13 16:44:03 CDT Procedure Note Dat Chauhan MD - 02/13/2022 [facility] Cardiology [address] [facility] [address], [place] [address] [address] [facility] [address], [address], [place] [address] P:[phone] P:[phone] Echocardiographic Report Patient Name: YESSY NIXONPatient ID: [id number] : [id number] Date: 02/13/2022 1:42:01 PM Gender: FAccession #: [id number] Tech: Location: [place] Ref.Provider: PANTERA, CHRISTINEHeight(Cm): 155 BSA: 1.61Weight(Kg): 62.14 [...] 0.40 - 0.80 ] m/s MV Decel [id number] [ 150 - 200 ] msec PV [...] dilated. Electronically Signed By: Dat Chauhan MD, [facility] 2022-02-13 16:44:03 CDT Su Fan NP CV ECHO PROCEDURES Final Result documented in this encounter Visit Diagnoses Diagnosis H/O mechanical aortic valve replacement documented in this encounter Care Teams Transportation Associate Relationship Specialty Start Date End Date [place] [address] PCP - General Internal Medicine 01/10/21 09/22/22 documented as of this encounter
--- OUTSIDE RECORDS SUMMARY | 2024-04-01 12:05 | XMS_ITS | Encounter Summary ---
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 Not on file Not on file documented as of this encounter Plan of Treatment Not on file documented as of this encounter Procedures Procedure Name Priority Date/Time Associated Diagnosis Comments SCAN - RADIOLOGY/IMAGING 02/17/2022 4:58 PM COMMUNITY HEALTH OUTREACH WORKER documented in this encounter Results * SCAN - RADIOLOGY/IMAGING (02/17/2022 4:58 PM COMMUNITY HEALTH OUTREACH WORKER) Anatomical Region Laterality Modality Other us Provider Scanning Final Result documented in this encounter Visit Diagnoses Not on filedocumented in this encounter Care Teams Deep Fryer Assembler Relationship Specialty Start Date End Date Nathalie Jain MD [address] [employer] [facility] [place] [address] PCP - General Internal Medicine 01/10/21 09/22/22 documented as of this encounter
--- OUTSIDE RECORDS SUMMARY | 2024-04-01 12:05 | XMS_ITS | Encounter Summary ---
Author Organization [facility] Address [address] [facility] [address] [place] [address] Care Team Providers Care Inclusion Internship Name Role Phone Jose Lorenzo DO Primary Care Provider [phone] Encounter Details Date Type Department Care Team (Latest Contact Info) Description 10/27/2022 Anticoagulation Visit [facility] Cardiology [address] [place] [address] Juany Madrid RN H/O mechanical [...] on file Legal Sex Female 8:13 AM SYNOPTIC METEOROLOGIST Gender Identity Female 06/01/2020 9:42 PM SYNOPTIC METEOROLOGIST Sexual Orientation Straight 06/01/2020 9: 42 PM SYNOPTIC METEOROLOGIST 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
--- OUTSIDE RECORDS SUMMARY | 2024-04-01 12:05 | XMS_ITS | Encounter Summary ---
Author Organization [facility] Address [address] [facility] [address] [place] [address] Care Team Providers Care Patternmaker Plastics Name Role Phone Jose Lorenzo DO Primary Care Provider [phone] Encounter Details Date Type Department Care Team (Late st Contact Info) Description 09/23/[address] 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 Requesting call back. Contact [phone] documented in this encounter Plan of Treatment Not on file documented as of this encounter Visit Diagnoses Not on filedocumented in this encounter Care Teams Patternmaker Plastics Relationship Specialty Start Date End Date Jose Lorenzo DO PCP - General Family Medicine 09/23/22 05/25/23 documented as of this encounter
--- OUTSIDE RECORDS SUMMARY | 2024-04-01 12:05 | XMS_ITS | Encounter Summary ---
Author Organization [facility] Address [address] [facility] [address] [place] [address] Care Team Providers Care Preassembler Printed Circuit Board Name Role Phone Jose Lorenzo DO Primary Care Provider Encounter Details Date Type Department Care Team (Latest Contact Info) Description 10/20/2022 Anticoagulation Visit [facility] Cardiology [address] [place] [address] Huma Trevizo RN H/O mechanical [...] on file Legal Sex Female 8:13 AM SOCIOLOGY RESEARCH ASSISTANT Gender Identity Female 06/01/2020 9:42 PM SOCIOLOGY RESEARCH ASSISTANT Sexual Orientation Straight 06/01/2020 9: 42 PM SOCIOLOGY RESEARCH ASSISTANT 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
--- OUTSIDE RECORDS SUMMARY | 2024-04-01 12:05 | XMS_ITS | Encounter Summary ---
Author Organization [facility] Address [address] [facility] [address] [place] [address] Care Team Providers Care Seed And Fertilizer Specialist Name Role Phone Nathalie Jain MD Primary Care Provider [phone]- [phone] Encounter Details Date Type Department Care Team (Latest Contact Info) Description 02/20/2022 Anticoagulation Visit [facility] Cardiology [address] [place] [address] Penny Wilks, BHAVANA H/O mechanical [...] on file Legal Sex Female 8:13 AM SUPERINTENDENT PLANT PROTECTION Gender Identity Female 06/01/2020 9:42 PM SUPERINTENDENT PLANT PROTECTION Sexual Orientation Straight 06/01/2020 9: 42 PM SUPERINTENDENT PLANT PROTECTION 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
--- OUTSIDE RECORDS SUMMARY | 2024-04-01 12:05 | XMS_ITS | Encounter Summary ---
Author Organization [facility] Address [address] [facility] [address] [place] [address] Care Team Providers Care Peoplesoft Business Analyst Name Role Phone Nathalie Jain MD Primary Care Provider [phone]- [phone] Reason for Referral * Cardiology (Routine) - Closed Specialty Diagnoses / Procedures Referred By Contac t Referred To Contact Diagnoses H/O mechanical aortic valve replacement Procedures Transthoracic Echo (TTE) Complete W Doppler/CF Su Fan NP [address] [address] Phone: tel: fax: [facility] Referral ID Status Reason Start Date Expiration Date Visits Re quested Visits Authorized [id number] Closed 02/06/2022 04/06/2022 1 1 Reason for Visit * Reason Comments Follow-up Bicuspid Aortic Valve Encounter Details Date Type Department Care Team (Late st Contact Info) Description 01/07/2022 11:30 AM CDT Office Visit [facility] Cardiology [address] [address] Su Fan NP [address] [address] H/O mechanical aortic valve replacement [...] file Legal Sex Female 8:13 AM TRANSMISSION ENGINEER Gender Identity Female 06/01/2020 9:42 PM TRANSMISSION ENGINEER Sexual Orientation Straight 06/01/2020 9: 42 PM TRANSMISSION ENGINEER 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 [facility] Cardiology [address] [place] [address] Date of Visit: 01/07/2022 Patient ID: Yessy [...] who underwent AVR w/ a 19 mm [place] mechanical valve by Dr. Guthrie in 2008. [...] also severely disabled, and moved into a longterm but it didn't work out and now [...] Problem Relation Age of Onset Other Father [place] age 50, CABG; Heart attack Father Arthritis [...] at the upper left sternal border. Comments: [place] mechanical click, most pronounced at [facility]RSB. Pulmonary: [...] unit capsule, , Disp: , Rfl: COVID-19 mRNA,HMM904A2 (Applicasa) 30 mcg/0.3 mL suspension for reconstitution, , [...] concerns. 01/07/2022 MELVINA Hough- Nurse Practitioner with [facility] This note is dictated and transcribed using CircuLite Direct Software. Roll Threader Operator variancesmay occur. Despite proofreading, typographical errors may occur. documented in this encounter Plan of Treatment Not on file documented as of this encounter Results * TRANSTHORACIC ECHO (TTE) COMPLETE W DOPPLER/CF WO CONTRAST (02/13/2022 2:39 PM CDT) Anatomical Region Laterality Modality Ultrasound 02/13/2022 1:42 PM CDT Narrative 02/13/2022 4:44 PM CDT [facility] Cardiology [address] [facility] [address], [place] [address] [address], [place] [address] P:[phone] P:[phone] Echocardiographic Report Patient Name: YESSY NIXON : 1955 Study Date: 02/13/2022 1:42:01 PM Gender: F Tech: Location: [place] Ref.Provider: SU FAN Height(Cm): 155 BSA: 1.61 [...] Interpretation Site: Exam was interpreted at [facility]. Left Ventricle: Normal left ventricular size. Mild [...] dilated. Electronically Signed By: Dat Chauhan MD, [facility] 2022-02-13 16:44:03 CDT Procedure Note Dat Chauhan MD - 02/13/2022 [facility] Cardiology [address] [facility] [address], [place] [address] [address] [facility] [address], [place] [address] P:[phone] P:[phone] Echocardiographic Report Patient Name: YESSY NIXONPatient ID: [id number] : [id number] Date: 02/13/2022 1:42:01 PM Gender: FAccession #: [id number] Tech: GMLocation: [place] Ref.Provider: SU FANHeight(Cm): 155 BSA: 1.61Weight(Kg): 62.14 [...] 0.40 - 0.80 ] m/s MV Decel [id number] [ 150 - 200 ] msec PV Peak Vel1.10 [ 0.40 - 0.80 ] m/s TR Peak Vel2.25 [ 0.40 - 0.80 ] m/s TR Peak PG 20mmHg RVSP28.00 mmHg E'0.10 E/E' 7 Findings: Interpretation Site: Exam was interpreted at [facility]. Left Ventricle: Normal left ventricular size. Mild [...] dilated. Electronically Signed By: Dat Chauhan MD, [facility] 2022-02-13 16:44:03 CDT Su Fan NP [...] documented as of this encounter Care Teams Peoplesoft Business Analyst Relationship Specialty Start Date End Date Nathalie Jian MD [address] [place] [address] PCP - General Internal Medicine 01/10/21 09/22/22 documented as of this encounter
--- OUTSIDE RECORDS SUMMARY | 2024-04-01 12:05 | XMS_ITS | Encounter Summary ---
Author Organization [facility] Address [address] [facility] [address] [place] [address] Care Team Providers Care Umbrella Tipper Machine Name Role Phone Nathalie Jain MD Primary Care Provider +1- [phone] Encounter Details Date Type Department Care Team (Latest Contact Info) Description 07/18/2022 Anticoagulation Visit [facility] Cardiology [address] [place] [address] Penny Wilks, BHAVANA H/O mechanical [...] on file Legal Sex Female 8:13 AM NON DESTRUCTIVE EVALUATION MANAGER Gender Identity Female 06/01/2020 9:42 PM NON DESTRUCTIVE EVALUATION MANAGER Sexual Orientation Straight 06/01/2020 9: 42 PM NON DESTRUCTIVE EVALUATION MANAGER 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
--- OUTSIDE RECORDS SUMMARY | 2024-04-01 12:05 | XMS_ITS | Encounter Summary ---
Author Organization [facility] Address [address] [facility] [address] [place] [address] Care Team Providers Care Small Engine Mechanic Name Role Phone Nathalie Jain MD Primary Care Provider +1- [phone] Encounter Details Date Type Department Care Team (Latest Contact Info) Description 09/16/2022 Anticoagulation Visit [facility] Cardiology [address] [place] [address] Penny Wilks, BHAVANA H/O mechanical [...] on file Legal Sex Female 8:13 AM PREPRESS SPECIALIST Gender Identity Female 06/01/2020 9:42 PM PREPRESS SPECIALIST Sexual Orientation Straight 06/01/2020 9: 42 PM PREPRESS SPECIALIST 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
--- OUTSIDE RECORDS SUMMARY | 2024-04-01 12:05 | XMS_ITS | Encounter Summary ---
Author Organization [facility] Address [address] [facility] [address] [place] [address] Care Team Providers Care Conference Services Coordinator Name Role Phone Nathalie Jain MD Primary Care Provider +1- [phone] Encounter Details Date Type Department Care Team (Latest Contact Info) Description 04/17/2022 Anticoagulation Visit [facility] Cardiology [address] [place] [address] Huma Trevizo RN H/O mechanical [...] on file Legal Sex Female 8:13 AM AGILE JAVA DEVELOPER Gender Identity Female 06/01/2020 9:42 PM AGILE JAVA DEVELOPER Sexual Orientation Straight 06/01/2020 9: 42 PM AGILE JAVA DEVELOPER 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 Not on file Not on file documented as of this encounter Plan of Treatment Not on file documented as of this encounter Visit Diagnoses Diagnosis H/O mechanical aortic valve replacement- Primary Chronic anticoagulation Encounter for long-term (current) 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s documented in this encounter Care Teams Conference Services Coordinator Relationship Specialty Start Date End Date Nathalie Jain MD 4 [employer] [facility] EXECUTIVE [facility] [place] [address] PCP - General Internal Medicine 01/10/21 09/22/22 documented as of this encounter
--- OUTSIDE RECORDS SUMMARY | 2024-04-01 12:05 | XMS_ITS | Encounter Summary ---
Author Organization [facility] Address [address] [facility] [address] [place] [address] Care Team Providers Care Boiler Fitter Name Role Phone Nathalie Jain MD Primary Care Provider +1- [phone] Encounter Details Date Type Department Care Team (Late st Contact Info) Description 08/25/2022 Telephone [facility] Cardiology [address] [facility] [address] [place] [address] Bindu Gaines MD [address] [place] [address] Social History Tobacco Use Types [...] on file Legal Sex Female 8:13 AM MILLER WOOD FLOUR Gender Identity Female 06/01/2020 9:42 PM MILLER WOOD FLOUR Sexual Orientation Straight 06/01/2020 9: 42 PM MILLER WOOD FLOUR 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 * Telephone Encounter - Huma Trevizo RN - 08/25/2022 8:47 AM CDT ----- Message from Yessy Donaldson sent at 08/25/2022 8:24 AM CDT ----- Regarding: [place] 3 question. Contact: Just wondering if it's okay to take [place] 3 1000 mg. Sometimes I'm not sure [...] on filedocumented in this encounter Care Teams Boiler Fitter Relationship Specialty Start Date End Date Nathalie Jain [place] [address] PCP - General Internal Medicine 01/10/21 09/22/22 documented as of this encounter
--- OUTSIDE RECORDS SUMMARY | 2024-04-01 12:05 | XMS_ITS | Encounter Summary ---
Author Organization [facility] Address [address] [facility] [address] [place] [address] Care Team Providers Care Safety Attendant Name Role Phone Nathalie Jain MD Primary Care Provider +1- [phone] Encounter Details Date Type Department Care Team (Latest Contact Info) Description 02/27/2022 Anticoagulation Visit [facility] Cardiology [address] [place] [address] Juany Madrid RN H/O mechanical [...] on file Legal Sex Female 8:13 AM RAISE DRILLER Gender Identity Female 06/01/2020 9:42 PM RAISE DRILLER Sexual Orientation Straight 06/01/2020 9: 42 PM RAISE DRILLER 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
--- OUTSIDE RECORDS SUMMARY | 2024-04-01 12:05 | XMS_ITS | Encounter Summary ---
Author Organization [facility] Address [address] [facility] [address] [place] [address] Care Team Providers Care Marketing Information Coordinator Name Role Phone Nathalie Jain MD Primary Care Provider +1- [phone] Encounter Details Date Type Department Care Team (Latest Contact Info) Description 08/05/2022 Anticoagulation Visit [facility] Cardiology [address] [place] [address] Juany Madrid RN H/O mechanical [...] on file Legal Sex Female 8:13 AM PAPER AND PULP MILL WORKER Gender Identity Female 06/01/2020 9:42 PM PAPER AND PULP MILL WORKER Sexual Orientation Straight 06/01/2020 9: 42 PM PAPER AND PULP MILL WORKER 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
--- OUTSIDE RECORDS SUMMARY | 2024-04-01 12:05 | XMS_ITS | Encounter Summary ---
Author Organization [facility] Address [address] [facility] [address] [place] [address] Care Team Providers Care Stereotyper Name Role Phone Nathalie Jain MD Primary Care Provider +1- [phone] Encounter Details Date Type Department Care Team (Late st Contact Info) Description 02/14/2022 Telephone [facility] Cardiology [address] [facility] [address] [place] [address] Bindu Gaines MD [address] [place] [address] Social History Tobacco Use Types [...] on file Legal Sex Female 8:13 AM DUST MIXER Gender Identity Female 06/01/2020 9:42 PM DUST MIXER Sexual Orientation Straight 06/01/2020 9: 42 PM DUST MIXER 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
--- OUTSIDE RECORDS SUMMARY | 2024-04-01 12:05 | XMS_ITS | Encounter Summary ---
Author Organization [facility] Address [address] [place] [address] Care Team Providers Care Company Miner Blasting Name Role Phone Nathalie Jain MD Primary Care Provider +1- [phone] Encounter Details Date Type Department Care Team (Latest Contact Info) Description 03/28/2022 Anticoagulation Visit [facility] Cardiology [address] [place] [address] Huma Trevizo RN H/O mechanical [...] file Legal Sex Female 8:13 AM METAL CUT OFF SAW TENDER Gender Identity Female 06/01/2020 9:42 PM METAL CUT OFF SAW TENDER Sexual Orientation Straight 06/01/2020 9: 42 PM METAL CUT OFF SAW TENDER 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
--- OUTSIDE RECORDS SUMMARY | 2024-04-01 12:05 | XMS_ITS | Encounter Summary ---
Author Organization [facility] Address [address] [place] [address] Care Team Providers Care Refuse Collector Name Role Phone Jose Lorenzo DO Primary Care Provider [phone] Encounter Details Date Type Department Care Team (Late st Contact Info) Description 10/17/2022 Telephone [facility] Cardiology [address] [place] [address] Bindu Gaines MD [address] [place] [address] Social History Tobacco Use [...] on file Legal Sex Female 8:13 AM RESTORATIVE COORDINATOR Gender Identity Female 06/01/2020 9:42 PM RESTORATIVE COORDINATOR Sexual Orientation Straight 06/01/2020 9: 42 PM RESTORATIVE COORDINATOR 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
--- OUTSIDE RECORDS SUMMARY | 2024-04-01 12:05 | XMS_ITS | Encounter Summary ---
Author Organization [facility] Address [address] [place] [address] Care Team Providers Care Social Security Specialist Name Role Phone Nathalie Jain MD Primary Care Provider +1- [phone] Encounter Details Date Type Department Care Team (Latest Contact Info) Description 07/21/2022 Anticoagulation Visit [facility] Cardiology [address] [place] [address] Penny Wilks, BHAVANA H/O mechanical [...] file Legal Sex Female 8:13 AM CASING FINISHER AND STUFFER Gender Identity Female 06/01/2020 9:42 PM CASING FINISHER AND STUFFER Sexual Orientation Straight 06/01/2020 9: 42 PM CASING FINISHER AND STUFFER 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
--- OUTSIDE RECORDS SUMMARY | 2024-04-01 12:05 | XMS_ITS | Encounter Summary ---
Author Organization [facility] Address [address] [place] [address] Care Team Providers Care Respiratory Therapy Director Name Role Phone Nathalie Jain MD Primary Care Provider [phone]- [phone] Encounter Details Date Type Department Care Team (Latest Contact Info) Description 07/11/2022 Anticoagulation Visit [facility] Cardiology [address] [place] [address] Penny Wilks, BHAVANA H/O mechanical [...] on file Legal Sex Female 8:13 AM CONCRETE VIBRATOR OPERATOR Gender Identity Female 06/01/2020 9:42 PM CONCRETE VIBRATOR OPERATOR Sexual Orientation Straight 06/01/2020 9: 42 PM CONCRETE VIBRATOR OPERATOR 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
--- OUTSIDE RECORDS SUMMARY | 2024-04-01 12:05 | XMS_ITS | Encounter Summary ---
Author Organization [facility] Address [address] [place] [address] Care Team Providers Care Multimedia Authoring Specialist Name Role Phone Nathalie Jain MD Primary Care Provider +1- [phone] Encounter Details Date Type Department Care Team (Latest Contact Info) Description 05/15/2022 Anticoagulation Visit [facility] Cardiology [address] [place] [address] Huma Trevizo RN H/O mechanical [...] on file Legal Sex Female 8:13 AM COLLECTIONS ASSOCIATE Gender Identity Female 06/01/2020 9:42 PM COLLECTIONS ASSOCIATE Sexual Orientation Straight 06/01/2020 9: 42 PM COLLECTIONS ASSOCIATE 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
--- OUTSIDE RECORDS SUMMARY | 2024-04-01 12:05 | XMS_ITS | Encounter Summary ---
Author Organization [facility] Address [address] [place] [address] Care Team Providers Care Industrial Hygiene Technician Name Role Phone Nathalie Jain MD Primary Care Provider [phone]- [phone] Encounter Details Date Type Department Care Team (Latest Contact Info) Description 07/14/2022 Anticoagulation Visit [facility] Cardiology [address] [place] [address] Penny Wilks, BHAVANA H/O mechanical [...] on file Legal Sex Female 8:13 AM STITCHING DEPARTMENT SUPERVISOR Gender Identity Female 06/01/2020 9:42 PM STITCHING DEPARTMENT SUPERVISOR Sexual Orientation Straight 06/01/2020 9: 42 PM STITCHING DEPARTMENT SUPERVISOR 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
--- OUTSIDE RECORDS SUMMARY | 2024-04-01 12:05 | XMS_ITS | Encounter Summary ---
Author Organization [facility] Address [address] [place] [address] Care Team Providers Care Cash Posting Clerk Name Role Phone Nathalie Jain MD Primary Care Provider [phone]- [phone] Encounter Details Date Type Department Care Team (Latest Contact Info) Description 07/15/2022 Anticoagulation Visit [facility] Cardiology [address] [place] [address] Penny Wilks, BHAVANA H/O mechanical [...] on file Legal Sex Female 8:13 AM DOCK PUMPER Gender Identity Female 06/01/2020 9:42 PM DOCK PUMPER Sexual Orientation Straight 06/01/2020 9: 42 PM DOCK PUMPER 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
--- OUTSIDE RECORDS SUMMARY | 2024-04-01 12:05 | XMS_ITS | Encounter Summary ---
Author Organization [facility] Address [address] [place] [address] Care Team Providers Care Landing Scaler Name Role Phone Nathalie Jain MD Primary Care Provider +1- [phone] Encounter Details Date Type Department Care Team (Late st Contact Info) Description 07/15/2022 Telephone [facility] Cardiology [address] [facility] [address] [place] [address] Bindu Gaines MD [address] [place] [address] Social History Tobacco Use Types [...] on file Legal Sex Female 8:13 AM ANIMAL NURSE Gender Identity Female 06/01/2020 9:42 PM ANIMAL NURSE Sexual Orientation Straight 06/01/2020 9: 42 PM ANIMAL NURSE 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 Pt requesting to have a call back from Penny to discuss. Contact [phone] documented in this encounter Plan of Treatment [...] anticoagulants documented in this encounter Care Teams Landing Scaler Relationship Specialty Start Date End Date Nathalie Jain MD [address] [place] [address] PCP - General Internal Medicine 01/10/21 09/22/22 documented as of this encounter
--- OUTSIDE RECORDS SUMMARY | 2024-04-01 12:05 | XMS_ITS | Encounter Summary ---
Author Organization [facility] Address [address] [place] [address] Care Team Providers Care Marine Structural Welder Name Role Phone Jose Lorenzo DO Primary Care Provider [phone] Encounter Details Date Type Department Care Team (Latest Contact Info) Description 09/23/2022 Anticoagulation Visit [facility] Cardiology [address] [place] [address] Huma Trevizo RN H/O mechanical [...] on file Legal Sex Female 8:13 AM EAR SPECIALIST Gender Identity Female 06/01/2020 9:42 PM EAR SPECIALIST Sexual Orientation Straight 06/01/2020 9: 42 PM EAR SPECIALIST 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
--- OUTSIDE RECORDS SUMMARY | 2024-04-01 12:05 | XMS_ITS | Encounter Summary ---
Author Organization [facility] Address [address] [place] [address] Care Team Providers Care Meat Passer Name Role Phone Nathalie Jain MD Primary Care Provider [phone]- [phone] Encounter Details Date Type Department Care Team (Latest Contact Info) Description 01/14/[address] 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
--- OUTSIDE RECORDS SUMMARY | 2024-04-01 12:05 | XMS_ITS | Encounter Summary ---
Author Organization [facility] Address [address] [place] [address] Care Team Providers Care Marine Animal Trainer Name Role Phone Nathalie Jain MD Primary Care Provider +1- [phone] Encounter Details Date Type Department Care Team (Latest Contact Info) Description 02/11/2022 Anticoagulation Visit [facility] Cardiology [address] [place] [address] Juany Madrid RN H/O mechanical [...] file Legal Sex Female 8:13 AM PULP MILL OPERATOR Gender Identity Female 06/01/2020 9:42 PM PULP MILL OPERATOR Sexual Orientation Straight 06/01/2020 9: 42 PM PULP MILL OPERATOR 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
--- OUTSIDE RECORDS SUMMARY | 2024-04-01 12:05 | XMS_ITS | Encounter Summary ---
Author Organization [facility] Address [address] [place] [address] Care Team Providers Care Tax Analyst Name Role Phone Nathalie Jain MD Primary Care Provider +1- [phone] Encounter Details Date Type Department Care Team (Latest Contact Info) Description 06/13/2022 Anticoagulation Visit [facility] Cardiology [address] [place] [address] Huma Trevizo RN H/O mechanical [...] on file Legal Sex Female 8:13 AM FIELD ASSESSOR Gender Identity Female 06/01/2020 9:42 PM FIELD ASSESSOR Sexual Orientation Straight 06/01/2020 9: 42 PM FIELD ASSESSOR 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
--- OUTSIDE RECORDS SUMMARY | 2024-04-01 12:05 | XMS_ITS | Encounter Summary ---
Author Organization [facility] Address [address] [place] [address] Care Team Providers Care Event Staff Name Role Phone Nathalie Jain MD Primary Care Provider +1- [phone] Encounter Details Date Type Department Care Team (Latest Contact Info) Description 07/29/2022 Anticoagulation Visit [facility] Cardiology [address] [place] [address] Penny Wilks, BHAVANA H/O mechanical [...] on file Legal Sex Female 8:13 AM DRY KILN OPERATOR Gender Identity Female 06/01/2020 9:42 PM DRY KILN OPERATOR Sexual Orientation Straight 06/01/2020 9: 42 PM DRY KILN OPERATOR 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 [address] PCP - General Internal Medicine 01/10/21 09/22/22 documented as of this encounter
--- OUTSIDE RECORDS SUMMARY | 2024-04-01 12:05 | XMS_ITS | Encounter Summary ---
Author Organization [facility] Address [address] [place] [address] Care Team Providers Care Back Tender Fourdrinier Name Role Phone Nathalie Jain MD Primary Care Provider +1- [phone] Encounter Details Date Type Department Care Team (Latest Contact Info) Description 09/02/2022 Anticoagulation Visit [facility] Cardiology [address] [place] [address] Huma Trevizo RN H/O mechanical [...] file Legal Sex Female 8:13 AM SENIOR PLANNING ANALYST Gender Identity Female 06/01/2020 9:42 PM SENIOR PLANNING ANALYST Sexual Orientation Straight 06/01/2020 9: 42 PM SENIOR PLANNING ANALYST 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
--- OUTSIDE RECORDS SUMMARY | 2024-04-01 12:06 | XMS_ITS | Encounter Summary ---
Author Organization [facility] Address [address] [place] [address] Care Team Providers Care Dam Worker Name Role Phone Nathalie Jain MD Primary Care Provider +1- [phone] Encounter Details Date Type Department Care Team (Late st Contact Info) Description 08/13/[address] 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 Pt aware. * Telephone Encounter - Marley Tran - 08/13/2021 8:47 AM CDT Pt requesting INR order be sent to [employer] in [place]. Thank you. Contact: documented in this encounter [...] valve replacement PROTIME-INR Routine 06/12/2022 6:31 AM SAMPLER TESTER Chronic anticoagulation H/O mechanical aortic valve replacement PROTIME-INR Routine 05/15/2022 6:14 AM SAMPLER TESTER Chronic anticoagulation H/O mechanical aortic valve replacement PROTIME-INR Routine 04/17/2022 6:12 AM SAMPLER TESTER Chronic anticoagulation H/O mechanical aortic valve replacement PROTIME-INR Routine 03/27/2022 6:53 AM SAMPLER TESTER Chronic anticoagulation H/O mechanical aortic valve replacement PROTIME-INR Routine 02/27/2022 6:45 AM SAMPLER TESTER Chronic anticoagulation H/O mechanical aortic valve replacement PROTIME-INR Routine 02/19/2022 11:49 AM SAMPLER TESTER Chronic anticoagulation H/O mechanical aortic valve replacement [...] Comment: For additional information, please refer to http://iTracs.Tradegecko/faq/TOE093 (This link is being provided for informational/ educational purposes only.) Blood specimen (specimen) 08/04/2022 6:24 AM CDT 08/04/2022 6:26 AM CDT Bindu Gaines MD LAB BLOOD ORDERABLES Final Result [facility] [address] [place] [address] * (ABNORMAL) Protime-INR (07/28/2022 6:11 AM CDT) INR 4.0(H) [facility] Elizabeth Comment: Reference Range ? 0.9-1.1 Moderate-intensity Warfarin Therapy 2.0-3.0 Higher-intensity Warfarin Therapy ?? 3.0-4.0 PT 36.1(H) 9.0 - 11.5 sec [facility] Elizabeth Comment: For additional information, please refer to http://iTracs.Tradegecko/faq/PDR514 (This link is being provided for informational/ educational purposes only.) Blood specimen (specimen) 07/28/2022 6:11 AM CDT 07/28/2022 6:13 AM CDT Bindu Gaines MD LAB BLOOD ORDERABLES Final Result Performing Organization Address [facility] [[email or web address]] Co de Phone Number [facility] [address] [place] [address] * (ABNORMAL) Protime-INR (07/14/2022 6:33 AM CDT) INR 1.9(H) [facility] curtis Elizabeth Comment: Reference Range ? 0.9-1.1 Moderate-intensity Warfarin Therapy 2.0-3.0 Higher-intensity Warfarin Therapy ?? 3.0-4.0 PT 18.6(H) 9.0 - 11.5 sec [facility] curtis Elizabeth Comment: For additional information, please refer to http://PocketSuite/faq/ZAY203 (This link is being provided for informational/ educational purposes only.) Blood specimen (specimen) 07/14/2022 6:33 AM CDT 07/14/2022 6:34 AM CDT Bindu Gaines MD LAB BLOOD ORDERABLES Final Result Performing Organization Address [facility] [[email or web address]] Co de Phone Number [facility] [address] [place] [address] * (ABNORMAL) Protime-INR (07/11/2022 7:09 AM CDT) INR 3.5(H) [facility] Elizabeth Comment: Reference Range ? 0.9-1.1 Moderate-intensity Warfarin Therapy 2.0-3.0 Higher-intensity Warfarin Therapy ?? 3.0-4.0 PT 32.2(H) 9.0 - 11.5 sec [facility] Glenn Comment: For additional information, please refer to http://PocketSuite/faq/AKN391 (This link is being provided for informational/ educational purposes only.) Blood specimen (specimen) 07/11/2022 7:09 AM CDT 07/11/2022 7:10 AM CDT Bindu Gaines MD LAB BLOOD ORDERABLES Final Result Performing Organization Address [facility] de Phone Number [facility] [address] [place] [address] * (ABNORMAL) Protime-INR (07/10/2022 6:33 AM CDT) INR 7.0(H) [facility] Comment: Verified by repeat analysis. Reference Range ? 0.9-1.1 Moderate-intensity Warfarin Therapy 2.0-3.0 Higher-intensity Warfarin Therapy ?? 3.0-4.0 PT 60.2(H) 9.0 - 11.5 sec [facility] Comment: Verified by repeat analysis. For additional information, please refer to http://PocketSuite/faq/LHT799 (This link is being provided for informational/ educational purposes only.) Blood specimen (specimen) 07/10/2022 6:33 AM CDT 07/10/2022 6:33 AM CDT Bindu Gaines MD LAB BLOOD ORDERABLES Final Result Performing Organization Address [facility] de Phone Number [facility] [address] [place] [address] * (ABNORMAL) Protime-INR (06/12/2022 6:31 AM SAMPLER TESTER) INR 2.5(H) [facility] Comment: Reference Range ? 0.9-1.1 Moderate-intensity Warfarin Therapy 2.0-3.0 Higher-intensity Warfarin Therapy ?? 3.0-4.0 PT 23.7(H) 9.0 - 11.5 sec [facility] Comment: For additional information, please refer to http://PocketSuite/faq/ERU802 (This link is being provided for informational/ educational purposes only.) Blood specimen (specimen) 06/12/2022 6:31 AM SAMPLER TESTER 06/12/2022 6:31 AM SAMPLER TESTER Bindu Gaines MD LAB BLOOD ORDERABLES Final Result Performing Organization Address [facility] de Phone Number [facility] [address] [place] [address] * (ABNORMAL) Protime-INR (05/15/2022 6:14 AM SAMPLER TESTER) INR 3.1(H) Tamica BranchSaima Elizabeth Comment: Reference Range ? 0.9-1.1 Moderate-intensity Warfarin Therapy 2.0-3.0 Higher-intensity Warfarin Therapy ?? 3.0-4.0 PT 28.6(H) 9.0 - 11.5 sec Tamica BranchSaima Elizabeth Comment: For additional information, please refer to http://iTracs.Tradegecko/faq/OXY060 (This link is being provided for informational/ educational purposes only.) Blood specimen (specimen) 05/15/2022 6:14 AM SAMPLER TESTER 05/15/2022 6:14 AM SAMPLER TESTER Bindu Gaines MD LAB BLOOD ORDERABLES Final Result Performing Organization Address [facility] de Phone Number [facility] [address] [place] [address] * (ABNORMAL) Protime-INR (04/17/2022 6:12 AM SAMPLER TESTER) INR 2.9(H) Tamica BranchSaima Elizabeth Comment: Reference Range ? 0.9-1.1 Moderate-intensity Warfarin Therapy 2.0-3.0 Higher-intensity Warfarin Therapy ?? 3.0-4.0 PT 27.0(H) 9.0 - 11.5 sec [facility] Comment: For additional information, please refer to http://iTracs.Tradegecko/faq/EKB297 (This link is being provided for informational/ educational purposes only.) Blood specimen (specimen) 04/17/2022 6:12 AM SAMPLER TESTER 04/17/2022 6:14 AM SAMPLER TESTER Narrative [facility] - 04/17/2022 3:47 PM SAMPLER TESTER AN UPDATE OR CORRECTION HAS BEEN MADE TO NAME Bindu Gaines MD LAB BLOOD ORDERABLES Final Result Performing Organization Address [facility] [[email or web address]] Co de Phone Number [facility] [address] [place] [address] * (ABNORMAL) Protime-INR (03/27/2022 6:53 AM SAMPLER TESTER) INR 2.9(H) [facility] Comment: Reference Range ? 0.9-1.1 Moderate-intensity Warfarin Therapy 2.0-3.0 Higher-intensity Warfarin Therapy ?? 3.0-4.0 PT 27.5(H) 9.0 - 11.5 sec [facility] Comment: For additional information, please refer to http://iTracs.Tradegecko/faq/XPY069 (This link is being provided for informational/ educational purposes only.) Blood specimen (specimen) 03/27/2022 6:53 AM SAMPLER TESTER 03/27/2022 6:54 AM SAMPLER TESTER Result [facility] Bindu Gaines MD LAB BLOOD ORDERABLES Final Result Performing Organization Address [facility] de Phone Number [facility] [address] [place] [address] * (ABNORMAL) Protime-INR (02/27/2022 6:45 AM SAMPLER TESTER) INR 3.5(H) [facility] Comment: Reference Range ? 0.9-1.1 Moderate-intensity Warfarin Therapy 2.0-3.0 Higher-intensity Warfarin Therapy ?? 3.0-4.0 PT 31.9(H) 9.0 - 11.5 sec [facility] Comment: For additional information, please refer to http://PocketSuite/faq/KZN176 (This link is being provided for informational/ educational purposes only.) Blood specimen (specimen) 02/27/2022 6:45 AM SAMPLER TESTER 02/27/2022 6:46 AM SAMPLER TESTER Bindu Gaines MD LAB BLOOD ORDERABLES Final Result Performing Organization Address [facility] [[email or web address]] Co de Phone Number [facility] [address] [place] [address] * (ABNORMAL) Protime-INR (02/19/2022 11:49 AM SAMPLER TESTER) INR 4.3(H) [facility] Comment: Reference Range ? 0.9-1.1 Moderate-intensity Warfarin Therapy 2.0-3.0 Higher-intensity Warfarin Therapy ?? 3.0-4.0 PT 38.5(H) 9.0 - 11.5 sec [facility] Comment: For additional information, please refer to http://PocketSuite/faq/LAA856 (This link is being provided for informational/ educational purposes only.) Blood specimen (specimen) 02/19/2022 11:49 AM SAMPLER TESTER 02/19/2022 11:50 AM SAMPLER TESTER Narrative [facility] - 02/20/2022 2:34 AM SAMPLER TESTER FASTING:UNKNOWN FASTING: UNKNOWN us Bindu Gaines MD LAB BLOOD ORDERABLES Final Result Performing Organization Address [facility] [[email or web address]] Co de Phone Number [facility] [address] [place] [address] * Protime-INR (02/11/2022 6:12 AM CDT) INR 1.1 [facility] Comment: Reference Range ? 0.9-1.1 Moderate-intensity Warfarin Therapy 2.0-3.0 Higher-intensity Warfarin Therapy ?? 3.0-4.0 PT 11.4 9.0 - 11.5 sec [facility] Comment: For additional information, please refer to http://iTracs.Tradegecko/faq/OJC166 (This link is being provided for informational/ educational purposes only.) Blood specimen (specimen) 02/11/2022 6:12 AM CDT 02/11/2022 6:12 AM CDT Bindu Gaines MD LAB BLOOD ORDERABLES Final Result Performing Organization Address [facility] de Phone Number [facility] [address] [place] [address] * (ABNORMAL) Protime-INR (01/14/2022 6:27 AM CDT) INR 3.2(H) [facility] Comment: Reference Range ? 0.9-1.1 Moderate-intensity Warfarin Therapy 2.0-3.0 Higher-intensity Warfarin Therapy ?? 3.0-4.0 PT 29.8(H) 9.0 - 11.5 sec [facility] Comment: For additional information, please refer to http://iTracs.Tradegecko/faq/GAH734 (This link is being provided for informational/ educational purposes only.) Blood specimen (specimen) 01/14/2022 6:27 AM CDT 01/14/2022 6:27 AM CDT us Bindu Gaines MD LAB BLOOD ORDERABLES Final Result Performing Organization Address [facility] [[email or web address]] Co de Phone Number [facility] [address] [place] [address] * (ABNORMAL) Protime-INR (12/17/2021 6:20 AM CDT) INR 2.8(H) Tamica Elizabeth Comment: Reference Range ? 0.9-1.1 Moderate-intensity Warfarin Therapy 2.0-3.0 Higher-intensity Warfarin Therapy ?? 3.0-4.0 PT 26.6(H) 9.0 - 11.5 sec [facility] Elizabeth Comment: For additional information, please refer to http://iTracs.Tradegecko/faq/WBS075 (This link is being provided for informational/ educational purposes only.) Blood specimen (specimen) 12/17/2021 6:20 AM CDT 12/17/2021 6:21 AM CDT [facility] - 12/17/2021 3:22 PM CDT FASTING:NO FASTING: NO Bindu Gaines MD LAB BLOOD ORDERABLES Final Result [facility] [place] [place] [address] [place] [address] * (ABNORMAL) Protime-INR (11/18/2021 7:13 AM CDT) INR 2.6(H) Tamica Elizabeth Comment: Reference Range ? 0.9-1.1 Moderate-intensity Warfarin Therapy 2.0-3.0 Higher-intensity Warfarin Therapy ?? 3.0-4.0 PT 24.8(H) 9.0 - 11.5 sec Tamica Elizabeth Comment: For additional information, please refer to http://PocketSuite/faq/MUJ122 (This link is being provided for informational/ educational purposes only.) Blood specimen (specimen) 11/18/2021 7:13 AM CDT 11/18/2021 7:14 AM CDT Bindu Gaines MD LAB BLOOD ORDERABLES Final Result Performing Organization Address [facility] [[email or web address]] Co de Phone Number [facility] [address] [place] [address] * (ABNORMAL) Protime-INR (11/11/2021 6:40 AM CDT) INR 2.3(H) [facility] Elizabeth Comment: Reference Range ? 0.9-1.1 Moderate-intensity Warfarin Therapy 2.0-3.0 Higher-intensity Warfarin Therapy ?? 3.0-4.0 PT 22.1(H) 9.0 - 11.5 sec [facility] Elizabeth Comment: For additional information, please refer to http://PocketSuite/faq/NQP036 (This link is being provided for informational/ educational purposes only.) Blood specimen (specimen) 11/11/2021 6:40 AM CDT 11/11/2021 6:41 AM CDT Bindu Gaines MD LAB BLOOD ORDERABLES Final Result Performing Organization Address [facility] de Phone Number [facility] [address] [place] [address] * (ABNORMAL) Protime-INR (11/05/2021 6:33 AM CDT) INR 3.9(H) [facility] Comment: Reference Range ? 0.9-1.1 Moderate-intensity Warfarin Therapy 2.0-3.0 Higher-intensity Warfarin Therapy ?? 3.0-4.0 PT 35.5(H) 9.0 - 11.5 sec [facility] Comment: For additional information, please refer to http://PocketSuite/faq/BWF870 (This link is being provided for informational/ educational purposes only.) Blood specimen (specimen) 11/05/2021 6:33 AM CDT 11/05/2021 6:33 AM CDT Bindu Gaines MD LAB BLOOD ORDERABLES Final Result Performing Organization Address [facility] de Phone Number [facility] [address] [place] [address] * (ABNORMAL) Protime-INR (10/08/2021 6:23 AM CDT) INR 3.2(H) [facility] Comment: Reference Range ? 0.9-1.1 Moderate-intensity Warfarin Therapy 2.0-3.0 Higher-intensity Warfarin Therapy ?? 3.0-4.0 PT 30.0(H) 9.0 - 11.5 sec [facility] Comment: For additional information, please refer to http://iTracs.Tradegecko/faq/PHJ547 (This link is being provided for informational/ educational purposes only.) Blood specimen (specimen) 10/08/2021 6:23 AM CDT 10/08/2021 6:24 AM CDT Bindu Gaines MD LAB BLOOD ORDERABLES Final Result Performing Organization Address [facility] de Phone Number [facility] [address] [place] [address] * (ABNORMAL) Protime-INR (09/11/2021 7:01 AM CDT) INR 2.7(H) [facility] Comment: Reference Range ? 0.9-1.1 Moderate-intensity Warfarin Therapy 2.0-3.0 Higher-intensity Warfarin Therapy ?? 3.0-4.0 PT 25.8(H) 9.0 - 11.5 sec [facility] Comment: For additional information, please refer to http://iTracs.Tradegecko/faq/ZWJ882 (This link is being provided for informational/ educational purposes only.) Blood specimen (specimen) 09/11/2021 7:01 AM CDT 09/11/2021 7:01 AM CDT Bindu Gaines MD LAB BLOOD ORDERABLES Final Result Performing Organization Address [facility] [[email or web address]] Co de Phone Number [facility] [address] [place] [address] * (ABNORMAL) Protime-INR (08/13/2021 10:52 AM CDT) INR 3.2(H) [facility] [facility] Elizabeth Comment: Reference Range ? 0.9-1.1 Moderate-intensity Warfarin Therapy 2.0-3.0 Higher-intensity Warfarin Therapy ?? 3.0-4.0 PT 29.5(H) 9.0 - 11.5 sec [facility] Elizabeth Comment: For additional information, please refer to http://iTracs.Tradegecko/faq/HNJ818 (This link is being provided for informational/ educational purposes only.) Blood specimen (specimen) 08/13/2021 10:52 AM CDT 08/13/2021 10:53 AM CDT Bindu Gaines MD LAB BLOOD ORDERABLES Final Result Performing Organization Address City/[facility] [[email or web address]] Co de Phone Number [facility] [address] [place] [address] documented in this encounter Visit Diagnoses Diagnosis Chronic anticoagulation- Primary Encounter for long-term (current) 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s H/O mechanical aortic valve replacement documented in this encounter Care Teams Dam Worker Relationship Specialty Start Date End Date Nathalie Jain MD 4 [address] [facility] EXECUTIVE [place] [id number] PCP - General Internal Medicine 01/10/21 09/22/22 documented as of this encounter
--- OUTSIDE RECORDS SUMMARY | 2024-04-01 12:06 | XMS_ITS | Encounter Summary ---
Author Organization [facility] Address [address] [place] [address] Care Team Providers Care Hospice/Home Health Aide Name Role Phone Nathalie Jain MD Primary Care Provider +1- [phone] Encounter Details Date Type Department Care Team (Latest Contact Info) Description 11/05/2021 Anticoagulation Visit [facility] Cardiology [address] [place] [address] Juany Madrid RN H/O mechanical [...] on file Legal Sex Female 8:13 AM FINE CHEMICALS OPERATOR Gender Identity Female 06/01/2020 9:42 PM FINE CHEMICALS OPERATOR Sexual Orientation Straight 06/01/2020 9: 42 PM FINE CHEMICALS OPERATOR 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 EXECUTIVE [facility] [place] [address] PCP - General Internal Medicine 01/10/21 09/22/22 documented as of this encounter
--- OUTSIDE RECORDS SUMMARY | 2024-04-01 12:06 | XMS_ITS | Encounter Summary ---
Author Organization [facility] Address [address] [place] [address] Care Team Providers Care Antichecking Iron Worker Name Role Phone Nathalie Jain MD Primary Care Provider +1- [phone] Encounter Details Date Type Department Care Team (Late st Contact Info) Description 07/15/2021 Orders Only [facility] Cardiology [address] [place] [address] Bindu Gaines MD [address] [place] [address] H/O mechanical aortic valve replacement [...] Legal Sex Female 8:13 AM MENTAL HEALTH SPECIALIST Gender Identity Female 06/01/2020 9:42 PM MENTAL HEALTH SPECIALIST Sexual Orientation Straight 06/01/2020 9: 42 PM MENTAL HEALTH SPECIALIST 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
--- OUTSIDE RECORDS SUMMARY | 2024-04-01 12:06 | XMS_ITS | Encounter Summary ---
Author Organization [facility] Address [address] [place] [address] Care Team Providers Care Associate Professor Of Anthropology Name Role Phone Nathalie Jain MD Primary Care Provider +1- [phone] Encounter Details Date Type Department Care Team (Latest Contact Info) Description 10/09/2021 Anticoagulation Visit [facility] Cardiology [address] [place] [address] Penny Wilks, BHAVANA H/O mechanical [...] on file Legal Sex Female 8:13 AM LIFE INSURANCE SALESPERSON Gender Identity Female 06/01/2020 9:42 PM LIFE INSURANCE SALESPERSON Sexual Orientation Straight 06/01/2020 9: 42 PM LIFE INSURANCE SALESPERSON 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
--- OUTSIDE RECORDS SUMMARY | 2024-04-01 12:06 | XMS_ITS | Encounter Summary ---
Author Organization [facility] Address [address] [place] [address] Care Team Providers Care Finger Buffs Assembler Name Role Phone Nathalie Jain MD Primary Care Provider +1- [phone] Encounter Details Date Type Department Care Team (Late st Contact Info) Description 11/12/2021 Telephone [facility] Cardiology [address] [facility] [address] [place] [address] Bindu Gaines MD [address] [place] [address] Social History Tobacco Use Types [...] on file Legal Sex Female 8:13 AM WARDROBE ATTENDANT Gender Identity Female 06/01/2020 9:42 PM WARDROBE ATTENDANT Sexual Orientation Straight 06/01/2020 9: 42 PM WARDROBE ATTENDANT 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 Not on file Not on file documented as of this encounter Miscellaneous Notes * Telephone Encounter - Huma Trevizo RN - 11/12/2021 8:53 AM CDT See ac note * Telephone Encounter - Hira Valentin - 11/12/2021 8:42 AM CDT Pt returning nurse Huma herr for INR results.Thank you Contact:[phone] documented in this encounter Plan of Treatment Not on file documented as of this encounter Visit Diagnoses Not on filedocumented in this encounter Care Teams Finger Buffs Assembler Relationship Specialty Start Date End Date Nathalie Jain MD COUNTRY [facility] EXECUTIVE [place] [address] PCP - General Internal Medicine 01/10/21 09/22/22 documented as of this encounter
--- OUTSIDE RECORDS SUMMARY | 2024-04-01 12:06 | XMS_ITS | Encounter Summary ---
Author Organization [facility] Address [address] [place] [address] Care Team Providers Care Fisheries Enforcement Officer Name Role Phone Nathalie Jain MD Primary Care Provider +1- [phone] Reason for Visit * Reason Onset Date Comments Scheduling Appointments 12/24/2021 Encounter Details Date Type Department Care Team (Late st Contact Info) Description 12/24/2021 Telephone [facility] Cardiology [address] [place] [address] Juany Brantley MA Scheduling Appointments [...] on file Legal Sex Female 8:13 AM MOLD MOVER Gender Identity Female 06/01/2020 9:42 PM MOLD MOVER Sexual Orientation Straight 06/01/2020 9: 42 PM MOLD MOVER 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
--- OUTSIDE RECORDS SUMMARY | 2024-04-01 12:06 | XMS_ITS | Encounter Summary ---
Author Organization [facility] Address [address] [place] [address] Care Team Providers Care Shingle Packer Name Role Phone Nathalie Jain MD Primary Care Provider +1- [phone] Encounter Details Date Type Department Care Team (Latest Contact Info) Description 11/01/2021 Anticoagulation Visit [facility] Cardiology [address] [place] [address] Penny Wilks, BHAVANA H/O mechanical [...] Legal Sex Female 8:13 AM DIRECTOR OF INSTITUTIONAL GIVING Gender Identity Female 06/01/2020 9:42 PM DIRECTOR OF INSTITUTIONAL GIVING Sexual Orientation Straight 06/01/2020 9: 42 PM DIRECTOR OF INSTITUTIONAL GIVING 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
--- OUTSIDE RECORDS SUMMARY | 2024-04-01 12:06 | XMS_ITS | Encounter Summary ---
Author Organization [facility] Address [address] [place] [address] Care Team Providers Care Scrap Drop Crane Operator Name Role Phone Nathalie Jain MD Primary Care Provider +1- [phone] Encounter Details Date Type Department Care Team (Latest Contact Info) Description 03/29/2021 Anticoagulation Visit [facility] Cardiology [address] [place] [address] Penny Wilks, BHAVANA H/O mechanical [...] file Legal Sex Female 8:13 AM CHANNEL MARKETING MANAGER Gender Identity Female 06/01/2020 9:42 PM CHANNEL MARKETING MANAGER Sexual Orientation Straight 06/01/2020 9: 42 PM CHANNEL MARKETING MANAGER 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
--- OUTSIDE RECORDS SUMMARY | 2024-04-01 12:06 | XMS_ITS | Encounter Summary ---
Author Organization [facility] Address [address] [place] [address] Care Team Providers Care Campaign Analyst Name Role Phone Nathalie Jain MD Primary Care Provider +1- [phone] Encounter Details Date Type Department Care Team (Late st Contact Info) Description 08/13/2021 Telephone [facility] Cardiology [address] [facility] [address] [place] [address] Bindu Gaines MD [address] [place] [address] Social History Tobacco Use Types [...] on file Legal Sex Female 8:13 AM DINKEY OPERATOR SLAG Gender Identity Female 06/01/2020 9:42 PM DINKEY OPERATOR SLAG Sexual Orientation Straight 06/01/2020 9: 42 PM DINKEY OPERATOR SLAG 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 I don???t rememberexactly which I???ve had done. Waiting to hear back. Thanks. Will forward pt message back to [facility] and as soon as lab results are received I will scan into [facility] and route to [facility]. * Telephone Encounter - Huma Trevizo [...] me to a neuromuscular Dr. . At [facility], due to the pain and some balance issues I've been having. Waiting to hear back from that office. I'd like to stay off the Atorvastatin at least for a month and see if the pain continues to decrease. Would like your thoughts on it. Will forward message on to [facility] for review. Please advise, thank you! documented in this encounter Plan of Treatment Not on file documented as of this encounter Visit Diagnoses Not on filedocumented in this encounter Care Teams Campaign Analyst Relationship Specialty Start Date End Date Nathalie Jain MD [address] [place] [address] PCP - General Internal Medicine 01/10/21 09/22/22 documented as of this encounter
--- OUTSIDE RECORDS SUMMARY | 2024-04-01 12:06 | XMS_ITS | Encounter Summary ---
Author Organization [facility] Address [address] [place] [address] Phone Care Team Providers Care Cloth Cutting Inspector Name Role Phone Nathalie Jain MD Primary Care Provider +1- [phone] Reason for Visit * Consultation (Routine) - Closed Specialty Diagnoses / Procedures Referred By Contac t Referred To Contact Neurology Diagnoses Weakness Nathalie Jain MD [place] [employer] [place] [address] Phone: tel: fax: Adrien Benitez MD PhD [address] [place] [address] Phone: tel: fax: Referral ID Status Reason Start Date Expiration Date V isits Requested Visits Authorized [id number] Closed Specialty Services Required 08/13/2021 09/12/2022 1 1 Encounter Details Date Type Department Care Team (Late st Contact Info) Description 01/02/2022 1:00 PM CDT Office Visit [facility] Neuro Muscle [address] [place] [address] [place] [address] Adrien Benitez MD PhD [address] [place] [address] Muscle pain (Primary Dx); Weakness [...] on file Legal Sex Female 8:13 AM TONGUER Gender Identity Female 06/01/2020 9:42 PM TONGUER Sexual Orientation Straight 06/01/2020 9: 42 PM TONGUER 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 Not on [...] Name: YESSY NIXON Medical Record Number (MRN): [id number] Date of (): 1955 Encounter Date: 01/02/2022 [...] Outpatient Medications Medication Sig Dispense Refill COVID-19 mRNA,[id number] (Eye-Q) 30 mcg/0.3 mL suspension for reconstitution albuterol [...] Problem Relation Age of Onset Other Father [place] age 50, CABG; Heart attack Father Arthritis [...] in lateral R calf -- Vibration with Kypha-Alorum tuning fork (black scale): Right Left forehead 6/8 Index finger DIP 6/8 6/8 1st MTP 7/8 5.5/8 REFLEXES: 2+ brisk R biceps>L, trace Overton on L, and otherwise 2+ brisk and symmetric throughout. No clonus. Plantar reflex down-going bilaterally. COORDINATION: No dysmetria on ibwxkn-zcba-ejegpw bilaterally. GAIT: careful/cautions gait, no imbalance, narrow [...] diagnosis but would not be likely to currency exchange specialist. She preferred to defer the decision at [...] Department Center 02/13/2022 2:00 PM [facility] HCG [place] [facility] 1 HCG PROC Specialty 01/07/2023 11:30 AM Bindu Gaines MD MG CAR MRYVL Specialty Thank you for allowing me to participate in the care of your patient. If you have any questions, feel free to contact me via Vioozer. Sincerely, Marialuisa Adames MD PhD Neurology, PGY-4 [...] Immunotyping, serum (01/02/2022 3:13 PM CDT) Pathologist [facility] Immunofixation Please see comment [facility] Comment: NO PARAPROTEIN DETECTED Reviewed and signed by Henok Chaney MD, PhD on 01/03/2022 Blood 01/02/2022 3:13 PM CDT 01/02/2022 3:32 PM CDT Marialuisa Adames MD PhD LAB BLOOD ORDERABLE S Final Result [facility] [place] [address] * Vitamin B12 (01/02/2022 3:13 PM CDT) [facility] Vitamin B12 649 230 - 1,250 pg/mL [facility] Blood 01/02/2022 3:13 PM CDT 01/02/2022 3:[address] [facility] Marialuisa Adames MD PhD LAB BLOOD ORDERABLE S Final Result Performing Organization Address City[facility] Co de Phone Number [facility] [place] [address] * LINH Antibody Evaluation with Reflex (01/02/2022 3:13 PM CDT) [facility] LINH ab Negative Negative [facility] Comment: Interpretive Data Positive Screens will be reflexed to specific testing for the following antigens: Jasmin-1 Ab, PAINT MIXER HAND Ab, Scl-70 Ab, Alex Ab, SS-A/Ro Ab, and SS-B/La Ab. Further testing for dsDNA, Centromere, or Ribosomal P antibodies is suggested in patient with a positive screen and negative specific antibodies. Current interpretive data was last revised on 16. Blood 01/02/2022 3:13 PM CDT 01/02/2022 3:32 PM CDT Marialuisa Adames MD PhD LAB BLOOD ORDERABLE S Final Result [facility] [place] [address] documented in this encounter Visit Diagnoses Diagnosis [...] (VITAMIN D-3) 1,000 unit capsule 4 COVID-19 mRNA,[id number] (PFIZER) 30 mcg/0.3 mL suspension for reconstitution 01/24/2021 4 added in this encounter Orders Outpatient Referral Count Last Ordered Date Fir st Ordered Date AMB REFERRAL TO NEUROLOGY 1 01/02/2022 documented in this encounter Care Teams Cloth Cutting Inspector Relationship Specialty Start Date End Date Nathalie Jain MD [address] [place] [address] PCP - General Internal Medicine 01/10/21 09/22/22 documented as of this encounter
--- OUTSIDE RECORDS SUMMARY | 2024-04-01 12:06 | XMS_ITS | Encounter Summary ---
Author Organization [facility] Medical [facility] Address [address] [place] [address] Care Team Providers Care Bariatric Coordinator Name Role Phone Nathalie Jain MD Primary Care Provider +1- [phone] Encounter Details Date Type Department Care Team (Latest Contact Info) Description 05/23/2021 Anticoagulation Visit [facility] Medical [facility] Cardiology [address] [place] [address] Aviva Figueroa RN H/O mechanical aortic [...] on file Legal Sex Female 8:13 AM EPIC CUPID SPECIALISTS Gender Identity Female 06/01/2020 9:42 PM EPIC CUPID SPECIALISTS Sexual Orientation Straight 06/01/2020 9: 42 PM EP[employer] C[employer] SPECIALISTS 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
--- OUTSIDE RECORDS SUMMARY | 2024-04-01 12:06 | XMS_ITS | Encounter Summary ---
Author Organization [facility] Address [address] [place] [address] Care Team Providers Care Roll Grinder Name Role Phone Nathalie Jain MD Primary Care Provider +1- [phone] Encounter Details Date Type Department Care Team (Late st Contact Info) Description 11/01/2021 Telephone [facility] Cardiology [address] [facility] [address] [place] [address] Bindu Gaines MD [address] [place], [...] on file Legal Sex Female 8:13 AM STRATEGIC SOURCING SPECIALIST Gender Identity Female 06/01/2020 9:42 PM STRATEGIC SOURCING SPECIALIST Sexual Orientation Straight 06/01/2020 9: 42 PM STRATEGIC SOURCING SPECIALIST 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
--- OUTSIDE RECORDS SUMMARY | 2024-04-01 12:06 | XMS_ITS | Encounter Summary ---
Author Organization [facility] Address [address] [place] [address] Care Team Providers Care Water Resource Specialist Name Role Phone Nathalie Jain MD Primary Care Provider +1- [phone] Encounter Details Date Type Department Care Team (Late st Contact Info) Description 08/27/2021 Telephone [facility] Cardiology [address] [facility] [address] [place] [address] Bindu Gaines MD [address] [place] [address] Social History Tobacco Use [...] on file Legal Sex Female 8:13 AM PILOT CONTROL OPERATOR Gender Identity Female 06/01/2020 9:42 PM PILOT CONTROL OPERATOR Sexual Orientation Straight 06/01/2020 9: 42 PM PILOT CONTROL OPERATOR 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 Thanks, Emani Donaldson Will forward to KESHA. [...] LAB BLOOD ORDERABLES Final Result [facility] [address] [place] [address] * Creatine kinase (CK), total (08/30/2021 6:23 AM CDT) CK 130 29 - 143 U/L [facility] Blood specimen (specimen) 08/30/2021 6:23 AM CDT 08/30/2021 6:24 AM CDT Narrative [facility] - 08/31/2021 2:56 AM CDT AN UPDATE OR CORRECTION HAS BEEN MADE TO NAME us Bindu Gaines MD LAB BLOOD ORDERABLES Final Result [facility] [address] [id number] * CBC with auto differential (08/30/2021 6:23 [...] MD LAB BLOOD ORDERABLES Final Result [facility] [address] [place] [address] documented in this encounter Visit Diagnoses Diagnosis Mixed hyperlipidemia- Primary H/O mechanical aortic valve replacement documented in this encounter Care Teams Water Resource Specialist Relationship Specialty Start Date End Date Nathalie Jain MD [address] [place] [address] PCP - General Internal Medicine 01/10/21 09/22/22 documented as of this encounter
--- OUTSIDE RECORDS SUMMARY | 2024-04-01 12:06 | XMS_ITS | Encounter Summary ---
Author Organization [facility] Address [address] [place] [address] Care Team Providers Care Technology Instructor Name Role Phone Nathalie Jain MD Primary Care Provider +1- [phone] Encounter Details Date Type Department Care Team (Latest Contact Info) Description 05/06/2021 Anticoagulation Visit [facility] Cardiology [address] [place] [address] Juany Madrid RN H/O mechanical [...] on file Legal Sex Female 8:13 AM DIALYSIS PATIENT CARE TECHNICIAN Gender Identity Female 06/01/2020 9:42 PM DIALYSIS PATIENT CARE TECHNICIAN Sexual Orientation Straight 06/01/2020 9: 42 PM DIALYSIS PATIENT CARE TECHNICIAN 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
--- OUTSIDE RECORDS SUMMARY | 2024-04-01 12:06 | XMS_ITS | Encounter Summary ---
Author Organization [facility] Address [address] [place] [address] Care Team Providers Care Bench Assembler Electrical Name Role Phone Nathalie Jain MD Primary Care Provider +1- [phone] Encounter Details Date Type Department Care Team (Late st Contact Info) Description 01/25/2021 Telephone [facility] Cardiology [address] [facility] [address] [place] [address] Bindu Gaines MD [address] [place] [address] Social History Tobacco Use Types [...] on file Legal Sex Female 8:13 AM TOPOLOGY PROFESSOR Gender Identity Female 06/01/2020 9:42 PM TOPOLOGY PROFESSOR Sexual Orientation Straight 06/01/2020 9: 42 PM TOPOLOGY PROFESSOR 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 For my record, Dr Nathalie Jain. [facility] [address] [place] [address] She???s doing a work up [...] filedocumented in this encounter Care Teams Bench Assembler Electrical Relationship Specialty Start Date End Date Nathalie Jain MD [address] [place] [address] PCP - General Internal Medicine 01/10/21 09/22/22 documented as of this encounter
--- OUTSIDE RECORDS SUMMARY | 2024-04-01 12:06 | XMS_ITS | Encounter Summary ---
Author Organization [facility] Address [address] [place] [address] Phone Care Team Providers Care Oysterman Name Role Phone Nathalie Jain MD Primary Care Provider +1- [phone] Encounter Details Date Type Department Care Team (Latest Contact Info) Description 01/02/2022 10:30 AM CDT Procedure visit [facility] Neurological Testing [address] 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 Procedures [facility] DEPART[facility] OF NEUROLOGY NEUROMUSCULAR ELECTRODIAGNOSTIC LABORATORY CLINICAL ELECTROMYOGRAPHY REPORT Patient: Yessy Donaldson Birthdate: 1955 Study No: [id number] MRN No: [id number] Referring M.D.: Adrien Benitez,* Date of Study:01/02/2022 [...] sensory NCSs were normal without any notable uaio-vg-mzrl differences. 3) Bilateral tibial H-reflex studies showed normal minimal latencies without any notable bflu-gd-ajox difference. 4) Needle EMG of the left [...] no.: . Our correspondence address : [address], [address] [id number] [facility] Nerve / Sites Latency Amplitude Segments Distance [...] Sciatica documented in this encounter Care Teams Oysterman Relationship Specialty Start Date End Date Nathalie Jain MD [address] [employer] [address] PCP - General Internal Medicine 01/10/21 09/22/22 documented as of this encounter
--- OUTSIDE RECORDS SUMMARY | 2024-04-01 12:06 | XMS_ITS | Encounter Summary ---
Author Organization [facility] Group Address [address] [place] [address] Care Team Providers Care Guide Travel Name Role Phone Nathalie Jain MD Primary Care Provider +1- [phone] Encounter Details Date Type Department Care Team (Latest Contact Info) Description 12/17/2021 Anticoagulation Visit [facility] Cardiology [address] [place] [address] Penny Wilks, BHAVANA H/O mechanical [...] on file Legal Sex Female 8:13 AM MANUAL TESTER Gender Identity Female 06/01/2020 9:42 PM MANUAL TESTER Sexual Orientation Straight 06/01/2020 9: 42 PM MANUAL TESTER 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
--- OUTSIDE RECORDS SUMMARY | 2024-04-01 12:06 | XMS_ITS | Encounter Summary ---
Author Organization [facility] Healthcare Address [address] [place] [address] Care Team Providers Care Sign Builder Supervisor Name Role Phone Nathalie Jain MD Primary Care Provider +1- [phone] Encounter Details Date Type Department Care Team (Late st Contact Info) Description 01/02/2022 3:05 PM CDT Lab [facility] Advanced Medicine 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 Further testing for dsDNA, Centromere, or Ribosomal P antibodies is suggested in patient with a positive screen and negative specific antibodies. Current interpretive data was last revised on 16. Blood 01/02/2022 3:13 PM CDT 01/02/2022 3:32 PM CDT Marialuisa Adames MD PhD LAB BLOOD ORDERABLE S Final Result Performing Organization Address [facility]/ZIP Co de Phone Number [facility] [place] [address] * Vitamin B12 (01/02/2022 3:13 PM CDT) Vitamin B12 649 230 - 1,250 pg/mL [facility] Blood 01/02/2022 3:13 PM CDT 01/02/2022 3:33 PM CDT us Marialuisa Adames MD PhD LAB BLOOD ORDERABLE S Final Result Performing Organization Address [facility]/ZIP Co de Phone Number [facility] [place] [address] * Immunotyping, serum (01/02/2022 3:13 PM CDT) Immunofixation Please see comment [facility] Comment: NO PARAPROTEIN DETECTED Reviewed and signed by Henok Chaney MD, PhD on 01/03/2022 Blood 01/02/2022 3:13 PM CDT 01/02/2022 3:32 PM CDT us Marialuisa Adames MD PhD LAB BLOOD ORDERABLE S Final Result [facility] Department [place] [address] documented in this encounter Visit Diagnoses Diagnosis Muscle pain Unspecified myalgia and myositis documented in this encounter Care Teams Sign Builder Supervisor Relationship Specialty Start Date End Date Nathalie Jain MD [employer] [place] [address] PCP - General Internal Medicine 01/10/21 09/22/22 documented as of this encounter
--- OUTSIDE RECORDS SUMMARY | 2024-04-01 12:06 | XMS_ITS | Encounter Summary ---
Author Organization [facility] Healthcare Address [address] [place] [address] Care Team Providers Care Emotional Disabilities Teacher Name Role Phone Nathalie Jain MD Primary Care Provider +1- [phone] Reason for Visit * Diagnostic Imaging (Routine) - Closed Specialty Diagnoses / Procedures Referred By Contac t Referred To Contact Diagnoses Arthralgia, unspecified joint Myalgia, unspecified site Procedures XR Hip Left 2 or 3 Views XR Hip Left 1 View Payal Méndez MD Phone: tel: fax: [address] [phone] Referral ID Status Reason Start Date Expiration Date Visits Re quested Visits Authorized [id number] Closed 03/29/2021 04/28/2022 1 1 Encounter Details Date Type Department Care Team (Latest Contact Info) Description 03/29/2021 1:52 PM CLAIMS SUPERVISOR - 03/29/2021 11:59 PM CLAIMS SUPERVISOR Hospital Encounter [facility] - Imaging [address] [place] [phone] Arthralgia, unspecified joint; Myalgia, unspecified site [...] on file Legal Sex Female 8:13 AM CLAIMS SUPERVISOR Gender Identity Female 06/01/2020 9:42 PM CLAIMS SUPERVISOR Sexual Orientation Straight 06/01/2020 9: 42 PM CLAIMS SUPERVISOR 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 ??No acute bony abnormality identified in the left hip. 2. ??Minimal degenerative arthritic narrowing of the left hip joint. Electronically signed by: Ray Angeles M.D. Narrative 03/29/2021 2:14 PM CLAIMS SUPERVISOR Exam: XR HIP LEFT 2 OR 3 [...] site documented in this encounter Care Teams Emotional Disabilities Teacher Relationship Specialty Start Date End Date Nathalie Jain MD [address] [place] [address] PCP - General Internal Medicine 01/10/21 09/22/22 documented as of this encounter
--- OUTSIDE RECORDS SUMMARY | 2024-04-01 12:06 | XMS_ITS | Encounter Summary ---
Author Organization [facility] Medical Group Address [address] [place] [address] Care Team Providers Care Public Policy Analyst Name Role Phone Nathalie Jain MD Primary Care Provider +1- [phone] Encounter Details Date Type Department Care Team (Late st Contact Info) Description 05/07/2021 Telephone [facility] Medical Group Cardiology [address] [facility] [address] [place] [address] Bindu Gaines MD [address] [place] [address] Social History Tobacco Use Types [...] on file Legal Sex Female 8:13 AM AIRLINE DISPATCHER Gender Identity Female 06/01/2020 9:42 PM AIRLINE DISPATCHER Sexual Orientation Straight 06/01/2020 9: 42 PM AIRLINE DISPATCHER 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 Pt verbalizes understanding will recheck INR in 2 weeks. INE DISPATCHER * Telephone Encounter - Hira Richards - 05/07/2021 2:43 PM CST Pt called has questions in regard to her INR results.please advise.Thank you Contact:[phone] INE DISPATCHER documented in this encounter Plan of Treatment Not on file documented as of this encounter Visit Diagnoses Not on filedocumented in this encounter Care Teams Public Policy Analyst Relationship Specialty Start Date End Date Nathalie Jain MD [employer] EXECUTIVE [place] [id number] PCP - General Internal Medicine 01/10/21 09/22/22 documented as of this encounter
--- OUTSIDE RECORDS SUMMARY | 2024-04-01 12:06 | XMS_ITS | Encounter Summary ---
Author Organization [facility] Medical Group Address [address] [place] [address] Care Team Providers Care Certified Income Tax Preparer Name Role Phone Nathalie Jain MD Primary Care Provider +1- [phone] Encounter Details Date Type Department Care Team (Latest Contact Info) Description 11/19/2021 Anticoagulation Visit [facility] Medical Group Cardiology [address] [place] [address] Penny Wilks, BHAVANA H/O mechanical [...] on file Legal Sex Female 8:13 AM SPORTSPERSONS Gender Identity Female 06/01/2020 9:42 PM SPORTSPERSONS Sexual Orientation Straight 06/01/2020 9: 42 PM SPORTSPERSONS 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
--- OUTSIDE RECORDS SUMMARY | 2024-04-01 12:06 | XMS_ITS | Encounter Summary ---
Author Organization [facility] Medical Group Address [address] [place] [address] Care Team Providers Care Paleontology Teacher Name Role Phone Nathalie Jain MD Primary Care Provider +1- [phone] Encounter Details Date Type Department Care Team (Latest Contact Info) Description 05/21/2021 Anticoagulation Visit [facility] Medical Group Cardiology [address] [place] [address] Aviva Figueroa RN H/O mechanical [...] file Legal Sex Female 8:13 AM MOLD FILLER AND DRAINER Gender Identity Female 06/01/2020 9:42 PM MOLD FILLER AND DRAINER Sexual Orientation Straight 06/01/2020 9: 42 PM MOLD FILLER AND DRAINER 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 Not on file Not on file documented as of this encounter Plan of Treatment Not on file documented as of this encounter Visit Diagnoses Diagnosis H/O mechanical aortic valve replacement- Primary Chronic anticoagulation Encounter for long-term (current) 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s documented in this encounter Care Teams Paleontology Teacher Relationship Specialty Start Date End Date Nathalie Jain MD 4 [employer] [facility] EXECUTIVE [facility] [place] [address] PCP - General Internal Medicine 01/10/21 09/22/22 documented as of this encounter
--- OUTSIDE RECORDS SUMMARY | 2024-04-01 12:06 | XMS_ITS | Encounter Summary ---
Author Organization [facility] Medical Group Address [address] [place] [address] Care Team Providers Care Art Therapy Certified Supervisor Name Role Phone Nathalie Jain MD Primary Care Provider +1- [phone] Encounter Details Date Type Department Care Team (Latest Contact Info) Description 04/09/2021 Anticoagulation Visit [facility] Medical Group Cardiology [address] [place] [address] Huma Trevizo RN H/O mechanical [...] Legal Sex Female 8:13 AM LOSS CONTROL MANAGER Gender Identity Female 06/01/2020 9:42 PM LOSS CONTROL MANAGER Sexual Orientation Straight 06/01/2020 9: 42 PM LOSS CONTROL MANAGER 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
--- OUTSIDE RECORDS SUMMARY | 2024-04-01 12:06 | XMS_ITS | Encounter Summary ---
Author Organization [facility] Medical Group Address [address] [place] [address] Care Team Providers Care Canine Service Instructor Trainer Name Role Phone Nathalie Jain MD Primary Care Provider +1- [phone] Encounter Details Date Type Department Care Team (Latest Contact Info) Description 11/12/2021 Anticoagulation Visit [facility] Medical Group Cardiology [address] [place] [address] Huma Trevizo RN H/O mechanical [...] on file Legal Sex Female 8:13 AM KOSHER SEALER Gender Identity Female 06/01/2020 9:42 PM KOSHER SEALER Sexual Orientation Straight 06/01/2020 9: 42 PM KOSHER SEALER 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
--- OUTSIDE RECORDS SUMMARY | 2024-04-01 12:06 | XMS_ITS | Encounter Summary ---
Author Organization [facility] Medical Group Address [address] [place] [address] Care Team Providers Care Yoghurt Maker Name Role Phone Nathalie Jain MD Primary Care Provider +1- [phone] Encounter Details Date Type Department Care Team (Latest Contact Info) Description 09/12/2021 Anticoagulation Visit [facility] Medical Group Cardiology [address] [place] [address] Huma Trevizo RN H/O mechanical [...] file Legal Sex Female 8:13 AM BOAT LOADER HELPER Gender Identity Female 06/01/2020 9:42 PM BOAT LOADER HELPER Sexual Orientation Straight 06/01/2020 9: 42 PM BOAT LOADER HELPER 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
--- OUTSIDE RECORDS SUMMARY | 2024-04-01 12:06 | XMS_ITS | Encounter Summary ---
Author Organization [facility] Medical Group Address [address] [place] [address] Care Team Providers Care Log Brander Name Role Phone Nathalie Jain MD Primary Care Provider +1- [phone] Encounter Details Date Type Department Care Team (Latest Contact Info) Description 08/13/2021 Anticoagulation Visit [facility] Medical [facility] Cardiology [address] [place] [phone] Aviva Figueroa RN H/O mechanical aortic [...] on file Legal Sex Female 8:13 AM REHAB LIAISON Gender Identity Female 06/01/2020 9:42 PM REHAB LIAISON Sexual Orientation Straight 06/01/2020 9: 42 PM REHAB LIAISON 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 [place] [address] PCP - General Internal Medicine 01/10/21 09/22/22 documented as of this encounter
--- OUTSIDE RECORDS SUMMARY | 2024-04-01 12:06 | XMS_ITS | Encounter Summary ---
Author Organization [facility] Medical Group Address [address] [place] [address] Care Team Providers Care Post Graduate Intern Name Role Phone Nathalie Jain MD Primary Care Provider +1- [phone] Encounter Details Date Type Department Care Team (Latest Contact Info) Description 02/27/2021 Anticoagulation Visit [facility] Medical Group Cardiology [address] [place] [address] Huma Trevizo RN H/O mechanical [...] on file Legal Sex Female 8:13 AM GRANULATING BLENDER Gender Identity Female 06/01/2020 9:42 PM GRANULATING BLENDER Sexual Orientation Straight 06/01/2020 9: 42 PM GRANULATING BLENDER 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
--- OUTSIDE RECORDS SUMMARY | 2024-04-01 12:06 | XMS_ITS | Encounter Summary ---
Author Organization [facility] Medical Group Address [address] [place] [address] Care Team Providers Care Manager Of Corporate Communications Name Role Phone Nathalie Jain MD Primary Care Provider +1- [phone] Encounter Details Date Type Department Care Team (Late st Contact Info) Description 05/23/[address] 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 SHING OPERATOR * Telephone Encounter - Hira Richards - 05/23/2021 2:03 PM CST Pt returning nurse call.Thank you Contact:[phone] SHING OPERATOR documented in this encounter Plan of Treatment Not on file documented as of this encounter Visit Diagnoses Not on filedocumented in this encounter Care Teams Manager Of Corporate Communications Relationship Specialty Start Date End Date Nathalie Jain MD 4 [employer] [facility] EXECUTIVE [place] [id number] PCP - General Internal Medicine 01/10/21 09/22/22 documented as of this encounter
--- OUTSIDE RECORDS SUMMARY | 2024-04-01 12:06 | XMS_ITS | Encounter Summary ---
Author Organization [facility] Medical Group Address [address] [place] [address] Care Team Providers Care Anesthesiology Resident Name Role Phone Nathalie Jain MD Primary Care Provider +1- [phone] Encounter Details Date Type Department Care Team (Latest Contact Info) Description 07/16/2021 Anticoagulation Visit [facility] Cardiology [address] [place] [address] Penny Wilks, BHAVANA H/O mechanical [...] on file Legal Sex Female 8:13 AM RANGE MASTER Gender Identity Female 06/01/2020 9:42 PM RANGE MASTER Sexual Orientation Straight 06/01/2020 9: 42 PM RANGE MASTER 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
--- OUTSIDE RECORDS SUMMARY | 2024-04-01 12:06 | XMS_ITS | Encounter Summary ---
Author Organization [facility] Medical Group Address [address] [place] [address] Care Team Providers Care Felter Tennis Balls Name Role Phone Nathalie Jain MD Primary Care Provider +1- [phone] Encounter Details Date Type Department Care Team (Latest Contact Info) Description 06/19/2021 Anticoagulation Visit [facility] Medical [facility] Cardiology [address] [place] [address] Aviva Figueroa RN H/O mechanical aortic [...] on file Legal Sex Female 8:13 AM MILLING PLANER OPERATOR Gender Identity Female 06/01/2020 9:42 PM MILLING PLANER OPERATOR Sexual Orientation Straight 06/01/2020 9: 42 PM MILLING PLANER OPERATOR 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
--- OUTSIDE RECORDS SUMMARY | 2024-04-01 12:06 | XMS_ITS | Encounter Summary ---
Author Organization [facility] Healthcare Address [address] [place] [address] Care Team Providers Care Right Of Way Man Name Role Phone Nathalie Jain MD Primary Care Provider +1- [phone] Encounter Details Date Type Department Care Team (Latest Contact Info) Description 08/15/2021 9:54 AM CDT - 08/15/2021 11:59 PM CDT Hospital Encounter [facility] [address] [place] [id number] Discharge Disposition: Discharge to home or self [...] on file Legal Sex Female 8:13 AM MALLET AND DIE CUTTER Gender Identity Female 06/01/2020 9:42 PM MALLET AND DIE CUTTER Sexual Orientation Straight 06/01/2020 9: 42 PM MALLET AND DIE CUTTER 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 ??There will be no report generated by a [facility] Radiologist. Narrative [facility] - 08/15/2021 9:54 AM CDT EXAMINATION: ??Images For Reference Purposes Only us Adrien Benitez MD PhD IMG XR PROCEDURES Final Result [facility] documented in this encounter Visit Diagnoses Not on filedocumented in this encounter Care Teams Right Of Way Man Relationship Specialty Start Date End Date Nathalie Jain MD 4 [employer] [facility] [place] [address] PCP - General Internal Medicine 01/10/21 09/22/22 documented as of this encounter
--- OUTSIDE RECORDS SUMMARY | 2024-04-01 12:06 | XMS_ITS | Encounter Summary ---
Author Organization [facility] Address [address] [place] [address] Care Team Providers Care Magnetic Prospector Name Role Phone Nathalie Jain MD Primary Care Provider +1- [phone] Encounter Details Date Type Department Care Team (Latest Contact Info) Description 01/29/2021 Anticoagulation Visit [facility] Cardiology [address] [place] [address] Huma Trevizo RN H/O mechanical [...] on file Legal Sex Female 8:13 AM VENEER MATCHER Gender Identity Female 06/01/2020 9:42 PM VENEER MATCHER Sexual Orientation Straight 06/01/2020 9: 42 PM VENEER MATCHER 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 Not on file Not on file documented as of this encounter Plan of Treatment Not on file documented as of this encounter Visit Diagnoses Diagnosis H/O mechanical aortic valve replacement- Primary Chronic anticoagulation Encounter for long-term (current) 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s documented in this encounter Care Teams Magnetic Prospector Relationship Specialty Start Date End Date Nathalie Jain MD 4 [employer] [facility] [place] [address] PCP - General Internal Medicine 01/10/21 09/22/22 documented as of this encounter
--- OUTSIDE RECORDS SUMMARY | 2024-04-01 12:07 | XMS_ITS | Encounter Summary ---
Author Organization [facility] Address 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
--- OUTSIDE RECORDS SUMMARY | 2024-04-01 12:07 | XMS_ITS | Encounter Summary ---
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 Social History [...] on file Legal Sex Female 8:13 AM COAL DUMPING EQUIPMENT OPERATOR Gender Identity Female 06/01/2020 9:42 PM COAL DUMPING EQUIPMENT OPERATOR Sexual Orientation Straight 06/01/2020 9: 42 PM COAL DUMPING EQUIPMENT OPERATOR 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
--- OUTSIDE RECORDS SUMMARY | 2024-04-01 12:07 | XMS_ITS | Encounter Summary ---
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 therapy Social History [...] on file Legal Sex Female 8:13 AM CODING COMPLIANCE AUDITOR Gender Identity Female 06/01/2020 9:42 PM CODING COMPLIANCE AUDITOR Sexual Orientation Straight 06/01/2020 9: 42 PM CODING COMPLIANCE AUDITOR 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
--- OUTSIDE RECORDS SUMMARY | 2024-04-01 12:07 | XMS_ITS | Encounter Summary ---
Author Organization [facility] Address [address] [place] [address] Care Team Providers Care Embedded Software Developer Name Role Phone Helena Yu Primary Care Provider +1- [phone] Encounter Details Date Type Department Care Team (Late st Contact Info) Description 07/18/2020 Telephone [facility] Cardiology [address] [place] [address] Bindu Gaines MD [address] [place] [address] Social History Tobacco Use Types [...] on file Legal Sex Female 8:13 AM HARDWOOD FLOOR INSTALLER Gender Identity Female 06/01/2020 9:42 PM HARDWOOD FLOOR INSTALLER Sexual Orientation Straight 06/01/2020 9: 42 PM HARDWOOD FLOOR INSTALLER 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 Thanks, Emani Donaldson Order for standing INR sent to [facility] documented in this encounter Plan of Treatment Scheduled Orders Name Type Priority Associated Diagnoses Orde r Schedule Protime-INR Lab Routine H/O mechanical aortic valve replacement FDC current use of anticoagulant therapy weekly for 52 Occurrences starting 07/18/2020 until 07/18/2021, 16 completed documented as of this encounter Procedures Procedure Name Priority Date/Time Associated Diagnosis Comments PROTIME-INR Routine 07/16/2021 6:17 AM CDT H/O mechanical aortic valve replacement long term acute care registered nurse current use of anticoagulant therapy PROTIME-INR Routine 06/18/2021 6:28 AM HARDWOOD FLOOR INSTALLER H/O mechanical aortic valve replacement long term acute care registered nurse current use of anticoagulant therapy PROTIME-INR Routine 05/20/2021 6:27 AM HARDWOOD FLOOR INSTALLER H/O mechanical aortic valve replacement FDC current use of anticoagulant therapy PROTIME-INR Routine 05/06/2021 6:30 AM HARDWOOD FLOOR INSTALLER H/O mechanical aortic valve replacement FDC current use of anticoagulant therapy PROTIME-INR Routine 04/08/2021 6:25 AM HARDWOOD FLOOR INSTALLER H/O mechanical aortic valve replacement FDC current use of anticoagulant therapy PROTIME-INR Routine 03/28/2021 6:24 AM HARDWOOD FLOOR INSTALLER H/O mechanical aortic valve replacement long term acute care registered nurse current use of anticoagulant therapy PROTIME-INR Routine 02/26/2021 8:10 AM HARDWOOD FLOOR INSTALLER H/O mechanical aortic valve replacement long term acute care registered nurse current use of anticoagulant therapy PROTIME-INR Routine 01/29/2021 6:49 AM CDT H/O mechanical aortic valve replacement FDC current use of anticoagulant therapy PROTIME-INR Routine 01/03/2021 11:23 AM CDT H/O mechanical aortic valve replacement long term acute care registered nurse current use of anticoagulant therapy PROTIME-INR Routine 12/20/2020 6:11 AM CDT H/O mechanical aortic valve replacement long term acute care registered nurse current use of anticoagulant therapy PROTIME-INR Routine 12/13/2020 7:19 AM CDT H/O mechanical aortic valve replacement long term acute care registered nurse current use of anticoagulant therapy PROTIME-INR Routine 11/15/2020 6:14 AM CDT H/O mechanical aortic valve replacement long term acute care registered nurse current use of anticoagulant therapy PROTIME-INR Routine 10/18/2020 2:48 PM CDT H/O mechanical aortic valve replacement FDC current use of anticoagulant therapy PROTIME-INR Routine 09/20/2020 8:32 AM CDT H/O mechanical aortic valve replacement long term acute care registered nurse current use of anticoagulant therapy PROTIME-INR Routine 08/09/2020 8:19 AM CDT H/O mechanical aortic valve replacement long term acute care registered nurse current use of anticoagulant therapy PROTIME-INR Routine 07/31/2020 6:44 AM CDT H/O mechanical aortic valve replacement long term acute care registered nurse current 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 Results * (ABNORMAL) Protime-INR (07/16/2021 6:17 AM CDT) INR 3.5(H) [facility] Comment: Reference Range ? 0.9-1.1 Moderate-intensity Warfarin Therapy 2.0-3.0 Higher-intensity Warfarin Therapy ?? 3.0-4.0 PT 32.2(H) 9.0 - 11.5 sec [facility] Comment: For additional information, please refer to http://PlayerDuel.Pivot3/faq/EDN447 (This link is being provided for informational/ educational purposes only.) Blood specimen (specimen) 07/16/2021 6:17 AM CDT 07/16/2021 6:18 AM CDT Bindu Gaines MD LAB BLOOD ORDERABLES Final Result Performing Organization Address City/[facility] de Phone Number [facility] [address] [place] [address] * (ABNORMAL) Protime-INR (06/18/2021 6:28 AM HARDWOOD FLOOR INSTALLER) INR 3.3(H) [facility] Comment: Reference Range ? 0.9-1.1 Moderate-intensity Warfarin Therapy 2.0-3.0 Higher-intensity Warfarin Therapy ?? 3.0-4.0 PT 30.9(H) 9.0 - 11.5 sec [facility] Comment: For additional information, please refer to http://PlayerDuel.Pivot3/faq/IYW789 (This link is being provided for informational/ educational purposes only.) Blood specimen (specimen) 06/18/2021 6:28 AM HARDWOOD FLOOR INSTALLER 06/18/2021 6:28 AM HARDWOOD FLOOR INSTALLER Bindu Gaines MD LAB BLOOD ORDERABLES Final Result [facility] [address] [place] [address] * (ABNORMAL) Protime-INR (05/20/2021 6:27 AM HARDWOOD FLOOR INSTALLER) INR 3.3(H) [facility] Comment: Reference Range ? 0.9-1.1 Moderate-intensity Warfarin Therapy 2.0-3.0 Higher-intensity Warfarin Therapy ?? 3.0-4.0 PT 30.2(H) 9.0 - 11.5 sec [facility] Comment: For additional information, please refer to http://PlayerDuel.[email or web address]/faq/EPY020 (This link is being provided for informational/ educational purposes only.) Blood specimen (specimen) 05/20/2021 6:27 AM HARDWOOD FLOOR INSTALLER 05/20/2021 6:28 AM HARDWOOD FLOOR INSTALLER Bindu Gaines MD LAB BLOOD ORDERABLES Final Result [facility] [address] [place] [address] * (ABNORMAL) Protime-INR (05/06/2021 6:30 AM HARDWOOD FLOOR INSTALLER) INR 4.0(H) [facility] Comment: Reference Range ? 0.9-1.1 Moderate-intensity Warfarin Therapy 2.0-3.0 Higher-intensity Warfarin Therapy ?? 3.0-4.0 PT 36.4(H) 9.0 - 11.5 sec [facility] Comment: For additional information, please refer to http://PlayerDuel.[email or web address]/faq/HNE764 (This link is being provided for informational/ educational purposes only.) Blood specimen (specimen) 05/06/2021 6:30 AM HARDWOOD FLOOR INSTALLER 05/06/2021 6:31 AM HARDWOOD FLOOR INSTALLER Bindu Gaines MD LAB BLOOD ORDERABLES Final Result Performing Organization Address [facility] de Phone Number [facility] [address] [place] [address] * (ABNORMAL) Protime-INR (04/08/2021 6:25 AM HARDWOOD FLOOR INSTALLER) INR 3.2(H) [facility] Comment: Reference Range ? 0.9-1.1 Moderate-intensity Warfarin Therapy 2.0-3.0 Higher-intensity Warfarin Therapy ?? 3.0-4.0 PT 30.7(H) 9.0 - 11.5 sec [facility] Comment: For additional information, please refer to http://Nuokang Medicine/faq/OZU285 (This link is being provided for informational/ educational purposes only.) Blood specimen (specimen) 04/08/2021 6:25 AM HARDWOOD FLOOR INSTALLER 04/08/2021 6:26 AM HARDWOOD FLOOR INSTALLER Bindu Gaines MD LAB BLOOD ORDERABLES Final Result Performing Organization Address [facility] de Phone Number [facility] [address] [place] [address] * (ABNORMAL) Protime-INR (03/28/2021 6:24 AM HARDWOOD FLOOR INSTALLER) INR 2.3(H) [facility] Comment: Reference Range ? 0.9-1.1 Moderate-intensity Warfarin Therapy 2.0-3.0 Higher-intensity Warfarin Therapy ?? 3.0-4.0 PT 22.7(H) 9.0 - 11.5 sec [facility] Comment: For additional information, please refer to http://Nuokang Medicine/faq/IZW231 (This link is being provided for informational/ educational purposes only.) Blood specimen (specimen) 03/28/2021 6:24 AM HARDWOOD FLOOR INSTALLER 03/28/2021 6:25 AM HARDWOOD FLOOR INSTALLER Bindu Gaines MD LAB BLOOD ORDERABLES Final Result Performing Organization Address [facility] Co de Phone Number [facility] [address] [place] [address] * (ABNORMAL) Protime-INR (02/26/2021 8:10 AM HARDWOOD FLOOR INSTALLER) INR 3.0(H) [facility] Comment: Reference Range ? 0.9-1.1 Moderate-intensity Warfarin Therapy 2.0-3.0 Higher-intensity Warfarin Therapy ?? 3.0-4.0 PT 29.1(H) 9.0 - 11.5 sec [facility] Comment: For additional information, please refer to http://Nuokang Medicine/faq/HLA504 (This link is being provided for informational/ educational purposes only.) Blood specimen (specimen) 02/26/2021 8:10 AM HARDWOOD FLOOR INSTALLER 02/26/2021 8:11 AM HARDWOOD FLOOR INSTALLER Result [facility] Bindu Gaines MD LAB BLOOD ORDERABLES Final Result Performing Organization Address [facility] de Phone Number [facility] [address] [place] [address] * (ABNORMAL) Protime-INR (01/29/2021 6:49 AM CDT) INR 3.4(H) [facility] Comment: Reference Range ? 0.9-1.1 Moderate-intensity Warfarin Therapy 2.0-3.0 Higher-intensity Warfarin Therapy ?? 3.0-4.0 PT 31.9(H) 9.0 - 11.5 sec [facility] Comment: For additional information, please refer to http://Nuokang Medicine/faq/PEH659 (This link is being provided for informational/ educational purposes only.) Blood specimen (specimen) 01/29/2021 6:49 AM CDT 01/29/2021 6:50 AM CDT Bindu Gaines MD LAB BLOOD ORDERABLES Final Result Performing Organization Address [facility] de Phone Number [facility] [address] [place] [address] * (ABNORMAL) Protime-INR (01/03/2021 11:23 AM CDT) INR 3.3(H) [facility] Comment: Reference Range ? 0.9-1.1 Moderate-intensity Warfarin Therapy 2.0-3.0 Higher-intensity Warfarin Therapy ?? 3.0-4.0 PT 31.0(H) 9.0 - 11.5 sec [facility] Comment: For additional information, please refer to http://PlayerDuel.Pivot3/faq/WNW416 (This link is being provided for informational/ educational purposes only.) Blood specimen (specimen) 01/03/2021 11:23 AM CDT 01/03/2021 11:24 AM CDT Bindu Gaines MD LAB BLOOD ORDERABLES Final Result Performing Organization Address [facility] de Phone Number [facility] [address] [place] [address] * (ABNORMAL) Protime-INR (12/20/2020 6:11 AM CDT) INR 3.4(H) [facility] Comment: Reference Range ? 0.9-1.1 Moderate-intensity Warfarin Therapy 2.0-3.0 Higher-intensity Warfarin Therapy ?? 3.0-4.0 PT 32.5(H) 9.0 - 11.5 sec [facility] Comment: For additional information, please refer to http://PlayerDuel.[email or web address]/faq/ECB009 (This link is being provided for informational/ educational purposes only.) Blood specimen (specimen) 12/20/2020 6:11 AM CDT 12/20/2020 6:11 AM CDT Bindu Gaines MD LAB BLOOD ORDERABLES Final Result Performing Organization Address [facility] Co de Phone Number [facility] [address] [place] [address] * (ABNORMAL) Protime-INR (12/13/2020 7:19 AM CDT) INR 4.1(H) [facility] Comment: Reference Range ? 0.9-1.1 Moderate-intensity Warfarin Therapy 2.0-3.0 Higher-intensity Warfarin Therapy ?? 3.0-4.0 PT 38.8(H) 9.0 - 11.5 sec [facility] Comment: For additional information, please refer to http://PlayerDuel.[email or web address]/faq/BEP403 (This link is being provided for informational/ educational purposes only.) Blood specimen (specimen) 12/13/2020 7:19 AM CDT 12/13/2020 7:20 AM CDT Bindu Gaines MD LAB BLOOD ORDERABLES Final Result Performing Organization Address [facility] Co de Phone Number [facility] [address] [place] [address] * (ABNORMAL) Protime-INR (11/15/2020 6:14 AM CDT) INR 3.5(H) [facility] Comment: Reference Range ? 0.9-1.1 Moderate-intensity Warfarin Therapy 2.0-3.0 Higher-intensity Warfarin Therapy ?? 3.0-4.0 PT 32.9(H) 9.0 - 11.5 sec [facility] Comment: For additional information, please refer to http://Nuokang Medicine/faq/SNB624 (This link is being provided for informational/ educational purposes only.) Blood specimen (specimen) 11/15/2020 6:14 AM CDT 11/15/2020 6:15 AM CDT Bindu Gaines MD LAB BLOOD ORDERABLES Final Result Performing Organization Address [facility] Co de Phone Number [facility] [address] [place] [address] * (ABNORMAL) Protime-INR (10/18/2020 2:48 PM CDT) INR 2.5(H) [facility] Comment: Reference Range ? 0.9-1.1 Moderate-intensity Warfarin Therapy 2.0-3.0 Higher-intensity Warfarin Therapy ?? 3.0-4.0 PT 24.4(H) 9.0 - 11.5 sec [facility] Comment: For additional information, please refer to http://PlayerDuel.[email or web address]/faq/LWB770 (This link is being provided for informational/ educational purposes only.) Blood specimen (specimen) 10/18/2020 2:48 PM CDT 10/18/2020 2:49 PM CDT Bindu Gaines MD LAB BLOOD ORDERABLES Final Result Performing Organization Address City/[facility] Co de Phone Number [facility] [address] [address] * (ABNORMAL) Protime-INR (09/20/2020 8:32 AM CDT) INR 3.0(H) [facility] Comment: Reference Range ? 0.9-1.1 Moderate-intensity Warfarin Therapy 2.0-3.0 Higher-intensity Warfarin Therapy ?? 3.0-4.0 PT 28.6(H) 9.0 - 11.5 sec [facility] Comment: For additional information, please refer to http://Nuokang Medicine/faq/ANS320 (This link is being provided for informational/ educational purposes only.) Blood specimen (specimen) 09/20/2020 8:32 AM CDT 09/20/2020 8:33 AM CDT Bindu Gaines MD LAB BLOOD ORDERABLES Final Result Performing Organization Address [facility] de Phone Number [facility] [address] [place] [address] * (ABNORMAL) Protime-INR (08/09/2020 8:19 AM CDT) INR 2.9(H) [facility] Comment: Reference Range ? 0.9-1.1 Moderate-intensity Warfarin Therapy 2.0-3.0 Higher-intensity Warfarin Therapy ?? 3.0-4.0 PT 28.2(H) 9.0 - 11.5 sec [facility] Comment: For additional information, please refer to http://Nuokang Medicine/faq/NBD943 (This link is being provided for informational/ educational purposes only.) Blood specimen (specimen) 08/09/2020 8:19 AM CDT 08/09/2020 8:20 AM CDT us Bindu Gaines MD LAB BLOOD ORDERABLES Final Result Performing Organization Address [facility] de Phone Number [facility] [address] [place] [address] * (ABNORMAL) Protime-INR (07/31/2020 6:44 AM CDT) INR 3.9(H) [facility] Comment: Reference Range ? 0.9-1.1 Moderate-intensity Warfarin Therapy 2.0-3.0 Higher-intensity Warfarin Therapy ?? 3.0-4.0 PT 36.7(H) 9.0 - 11.5 sec [facility] Comment: For additional information, please refer to http://education.Pivot3/faq/OSX959 (This link is being provided for informational/ educational purposes only.) Blood specimen (specimen) 07/31/2020 6:44 AM CDT 07/31/2020 6:46 AM CDT Bindu Gaines MD LAB BLOOD ORDERABLES Final Result Performing Organization Address City/State/[facility] Co de Phone Number [facility] [address] [place] [address] documented in this encounter Visit Diagnoses Diagnosis H/O mechanical aortic valve replacement- Primary long term acute care registered nurse current 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 Care Teams Embedded Software Developer Relationship Specialty Start Date End Date Helena Yu PA [address] [facility] [address] [place] [address] PCP - General Internal Medicine 09/23/18 07/29/20 documented as of this encounter
--- OUTSIDE RECORDS SUMMARY | 2024-04-01 12:07 | XMS_ITS | Encounter Summary ---
Author Organization [facility] Address [address] [place] [address] Care Team Providers Care Registered Nurse Step Down Name Role Phone Helena Yu Primary Care Provider +1- [phone] Encounter Details Date Type Department Care Team (Latest Contact Info) Description 07/03/2020 Anticoagulation Visit [facility] Cardiology [address] [address] [place] [address] Huma Trevizo RN H/O mechanical [...] file Legal Sex Female 8:13 AM DOOR OPERATOR Gender Identity Female 06/01/2020 9:42 PM DOOR OPERATOR Sexual Orientation Straight 06/01/2020 9: 42 PM DOOR OPERATOR 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
--- OUTSIDE RECORDS SUMMARY | 2024-04-01 12:07 | XMS_ITS | Encounter Summary ---
Author Organization [facility] Address [address] [place] [address] Care Team Providers Care Chief Unit Forester Name Role Phone Helena Yu Primary Care Provider +1- [phone] Encounter Details Date Type Department Care Team (Late st Contact Info) Description 03/21/2020 Telephone [facility] Cardiology [address] [place] [address] Bindu Gaines MD [address] [place] [address] Social History Tobacco Use [...] file Legal Sex Female 8:13 AM MANAGER MERCHANDISE Gender Identity Female 06/01/2020 9:42 PM MANAGER MERCHANDISE Sexual Orientation Straight 06/01/2020 9: 42 PM MANAGER MERCHANDISE 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 Charted in Anticoag. GER MERCHANDISE * Telephone Encounter - Jane Mcmullen - 03/21/2020 11:10 AM CST Pt called to report her INR 2.8 results. cb [phone] GER MERCHANDISE documented in this encounter Plan of Treatment Not on file documented as of this encounter Visit Diagnoses Not on filedocumented in this encounter Care Teams Chief Unit Forester Relationship Specialty Start Date End Date Helena Yu PA [address] [place] [address] PCP - General Internal Medicine 09/23/18 07/29/20 documented as of this encounter
--- OUTSIDE RECORDS SUMMARY | 2024-04-01 12:07 | XMS_ITS | Encounter Summary ---
Author Organization [facility] Address [address] [place] [address] Care Team Providers Care Domestic Cleaner Name Role Phone Helena Yu Primary Care Provider +1- [phone] Encounter Details Date Type Department Care Team (Latest Contact Info) Description 05/09/2020 Anticoagulation Visit [facility] Cardiology [address] [place] [address] Penny Wilks RN H/O mechanical [...] on file Legal Sex Female 8:13 AM DEMO COORDINATOR Gender Identity Female 06/01/2020 9:42 PM DEMO COORDINATOR Sexual Orientation Straight 06/01/2020 9: 42 PM DEMO COORDINATOR 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
--- OUTSIDE RECORDS SUMMARY | 2024-04-01 12:07 | XMS_ITS | Encounter Summary ---
Author Organization [facility] Address [address] [place] [address] Care Team Providers Care Supervisory Cbp Officer Name Role Phone Gabi Fagan MD Primary Care Pro vider Reason for Visit * Reason Comments Establish Care Pt in the office sta yi she thinks she has sciatica. Also c/o swelling bilateral feet. 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; Hypercholesteremia Social [...] on file Legal Sex Female 8:13 AM LINE INSPECTOR Gender Identity Female 06/01/2020 9:42 PM LINE INSPECTOR Sexual Orientation Straight 06/01/2020 9: 42 PM LINE INSPECTOR 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 eGFR NON-AFR. 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
--- OUTSIDE RECORDS SUMMARY | 2024-04-01 12:07 | XMS_ITS | Encounter Summary ---
Author Organization [facility] Address [address] [place] [address] Care Team Providers Care Test Driller Name Role Phone Helena Yu Primary Care Provider +1- [phone] Reason for Visit * Reason Comments Arthritis Encounter Details Date Type Department Care Team (Late st Contact Info) Description 06/12/2020 9:00 AM FORKLIFT MATERIAL HANDLER Office Visit [facility] Family Medicine [address] [place] [address] Helena Yu PA [address] [place] [address] Arthralgia, unspecified joint (Primary Dx); [...] on file Legal Sex Female 8:13 AM FORKLIFT MATERIAL HANDLER Gender Identity Female 06/01/2020 9:42 PM FORKLIFT MATERIAL HANDLER Sexual Orientation Straight 06/01/2020 9: 42 PM FORKLIFT MATERIAL HANDLER 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 Not on file Not on file documented as of this encounter Last Filed Vital Signs Vital Sign Reading Time Taken Comments Blood Pressure 120/80 06/12/2020 9:10 AM FORKLIFT MATERIAL HANDLER Pulse 85 06/12/2020 9:10 AM FORKLIFT MATERIAL HANDLER Temperature 36 ??C (96.8 ??F) 06/12/2020 9:10 AM FORKLIFT MATERIAL HANDLER Respiratory Rate - - Oxygen Saturation 99% 06/12/2020 9:10 AM FORKLIFT MATERIAL HANDLER Inhaled Oxygen Concentration - - Weight 64.9 kg (143 lb 1.6 oz) 06/12/2020 9:10 A M FORKLIFT MATERIAL HANDLER Height 157.5 cm (5' 2 ) 06/12/2020 9:10 AM FORKLIFT MATERIAL HANDLER Body Mass Index 26.17 06/12/2020 9:10 AM FORKLIFT MATERIAL HANDLER documented in this encounter Ordered Prescriptions Prescription [...] 2 months or so. Cardio - Moise [facility] They manage her INR for [...] healthy lifestyle to maintain. Helena Yu PA-C Cosigned by Sherif Pagan [...] Helena Yu PA - 06/13/2020 3:33 PM FORKLIFT MATERIAL HANDLER Hi Emani Your Rheumatoid factor and QUINTON [...] any other questions or concerns. PETAR Souza-C LIFT MATERIAL HANDLER * Assessment & Plan Note - Sindi Bagley MA - 06/12/2020 9:13 AM FORKLIFT MATERIAL HANDLER Associated Problem(s): BMI 26.0-26.9,adult Weight/BMI is in healthy range. Continue healthy lifestyle to maintain. LIFT MATERIAL HANDLER documented in this encounter Plan of Treatment Not on file documented as of this encounter Procedures Procedure Name Priority Date/Time Associated Diagnosis Comments QUINTON REFLEX TO QUANTITATIVE Routine 06/12/2020 11:05 AM FORKLIFT MATERIAL HANDLER Arthralgia, unspecified joint RHEUMATOID FACTOR Routine 06/12/2020 11: 05 AM FORKLIFT MATERIAL HANDLER Arthralgia, unspecified joint CREATINE KINASE (CK), TOTAL Routine 06/12/2020 11:05 AM FORKLIFT MATERIAL HANDLER Muscle pain documented in this encounter Results * Creatine kinase (CK), total (06/12/2020 11:05 AM FORKLIFT MATERIAL HANDLER) CK 123 29 - 143 U/L [facility] Blood specimen (specimen) 06/12/2020 11:05 AM FORKLIFT MATERIAL HANDLER 06/12/2020 11:06 AM FORKLIFT MATERIAL HANDLER Result [facility] Helena DAVEY LAB BLOOD ORDERABLES Final Result Performing Organization Address [facility] Co de Phone Number [facility] [address] [place] [address] * Rheumatoid factor (06/12/2020 11:05 AM FORKLIFT MATERIAL HANDLER) Rheumatoid factor, quant <14 <14 IU/mL [facility] Blood specimen (specimen) 06/12/2020 11:05 AM FORKLIFT MATERIAL HANDLER 06/12/2020 11:06 AM FORKLIFT MATERIAL HANDLER Result [facility] Helena DAVEY LAB BLOOD ORDERABLES Final Result Performing Organization Address [facility] Phone Number [facility] [address] [place] [address] * QUINTON reflex to quantitative (06/12/2020 11:05 AM FORKLIFT MATERIAL HANDLER) Pathologist [facility] QUINTON, qual NEGATIVE NEGATIVE [facility] Comment: QUINTON IFA is a first line [...] AC-0: Negative International Consensus on QUINTON Patterns (https://doi.org/10.1515/rbgm-5307-9817) For additional information, please refer to http://education.Outdoor Creations/faq/QGD847 (This link is being provided for informational/ educational purposes only.) ?? Blood specimen (specimen) 06/12/2020 11:05 AM FORKLIFT MATERIAL HANDLER 06/12/2020 11:06 AM FORKLIFT MATERIAL HANDLER Result [facility] Helena DAVEY LAB BLOOD ORDERABLES Final Result [facility] [address] [place] [phone] documented in this encounter Visit Diagnoses Diagnosis [...] documented as of this encounter Care Teams Test Driller Relationship Specialty Start Date End Date Helena Yu PA [address] [address] PCP - General Internal Medicine 09/23/18 07/29/20 documented as of this encounter
--- OUTSIDE RECORDS SUMMARY | 2024-04-01 12:07 | XMS_ITS | Encounter Summary ---
Author Organization [facility] Address [address] [place] [address] Care Team Providers Care Receivable Clerk Name Role Phone Gabi Fagan MD Primary Care Pro vider Encounter Details Date Type Department Care Team (Latest Contact Info) Description 01/03/2021 Anticoagulation Visit [facility] Cardiology [address] [place] [address] Huma Trevizo RN H/O mechanical [...] on file Legal Sex Female 8:13 AM SLUG PRESS OPERATOR Gender Identity Female 06/01/2020 9:42 PM SLUG PRESS OPERATOR Sexual Orientation Straight 06/01/2020 9: 42 PM SLUG PRESS OPERATOR 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
--- OUTSIDE RECORDS SUMMARY | 2024-04-01 12:07 | XMS_ITS | Encounter Summary ---
Author Organization [facility] Address [address] [place] [address] Care Team Providers Care Boilers Inspector Name Role Phone Helena Yu Primary Care Provider +1- [phone] Encounter Details Date Type Department Care Team (Late st Contact Info) Description 04/24/2020 Telephone [facility] Cardiology [address] [id number] [place] [address] [place] [address] Social History Tobacco Use Types Packs/Day [...] on file Legal Sex Female 8:13 AM WEATHERSEAL TECHNICIAN Gender Identity Female 06/01/2020 9:42 PM WEATHERSEAL TECHNICIAN Sexual Orientation Straight 06/01/2020 9: 42 PM WEATHERSEAL TECHNICIAN 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 Not on file Not on file documented as of this encounter Miscellaneous Notes * Telephone Encounter - Huma Trevizo RN - 04/24/2020 4:58 PM WEATHERSEAL TECHNICIAN See ac note HERSEAL TECHNICIAN * Telephone Encounter - Carleen Espinoza - 04/24/2020 4:46 PM CST Patient had her INR done today at [facility] in [place] , her results were 2.3 HERSEAL TECHNICIAN documented in this encounter Plan of Treatment Not on file documented as of this encounter Visit Diagnoses Not on filedocumented in this encounter Care Teams Boilers Inspector Relationship Specialty Start Date End Date Helena Yu PA [facility] [address] PCP - General Internal Medicine 09/23/18 07/29/20 documented as of this encounter
--- OUTSIDE RECORDS SUMMARY | 2024-04-01 12:07 | XMS_ITS | Encounter Summary ---
Author Organization [facility] Address [address] [place] [address] Care Team Providers Care Email Marketing Executive Name Role Phone Gabi Fagan MD Primary Care Pro vider Encounter Details Date Type Department Care Team ([facility] st Contact Info) Description 09/19/2020 Telephone [facility] Primary Care [address] [facility] [address] [place] [address] Gabi Fagan MD 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
--- OUTSIDE RECORDS SUMMARY | 2024-04-01 12:07 | XMS_ITS | Encounter Summary ---
Author Organization [facility] Address [address] [place] [address] Care Team Providers Care Stock Control Clerk Name Role Phone Gabi Fagan MD Primary Care Pro vider Encounter Details Date Type Department Care Team ([facility] st Contact Info) Description 08/29/2020 7:31 AM CDT Hospital Encounter [facility] Gabi Fagan MD [address] [address] Social History Tobacco Use Types [...] on file Legal Sex Female 8:13 AM [employer] Gender Identity Female 06/01/2020 9:42 PM [employer] Sexual Orientation Straight 06/01/2020 9: 42 PM [employer] 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
--- OUTSIDE RECORDS SUMMARY | 2024-04-01 12:07 | XMS_ITS | Encounter Summary ---
Author Organization [facility] Address [address] [place] [address] Care Team Providers Care Retort Operator Name Role Phone Helena Yu Primary Care Provider +1- [phone] Encounter Details Date Type Department Care Team (Late st Contact Info) Description 03/19/2020 Telephone [facility] Family Medicine [address] [facility] [address] [facility] [address] [place] [address] Helena Yu PA [address] [place] [address] Social History Tobacco Use Types [...] file Legal Sex Female 8:13 AM SOFTWARE PROJECT LEAD Gender Identity Female 06/01/2020 9:42 PM SOFTWARE PROJECT LEAD Sexual Orientation Straight 06/01/2020 9: 42 PM SOFTWARE PROJECT LEAD 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
--- OUTSIDE RECORDS SUMMARY | 2024-04-01 12:07 | XMS_ITS | Encounter Summary ---
Author Organization [facility] Address [address] [place] [address] Care Team Providers Care Plastic Block Boiler Reliner Name Role Phone Helena Yu Primary Care Provider +1- [phone] Encounter Details Date Type Department Care Team (Late st Contact Info) Description 04/18/2020 Telephone [facility] Cardiology [address] [facility] [address], [place] [address] Cj Solano MD [address] [facility] [address] [place] [address] Social History Tobacco Use Types [...] on file Legal Sex Female 8:13 AM BOBBIN CLEANER Gender Identity Female 06/01/2020 9:42 PM BOBBIN CLEANER Sexual Orientation Straight 06/01/2020 9: 42 PM BOBBIN CLEANER 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 IN CLEANER * Telephone Encounter - Carleen Espinoza - 04/18/2020 10:23 AM CST Patient had her protime done yesterday at [facility] in [place] the results were 1.8 she would like todiscuss this. IN CLEANER documented in this encounter Plan of Treatment Not on file documented as of this encounter Visit Diagnoses Not on filedocumented in this encounter Care Teams Plastic Block Boiler Reliner Relationship Specialty Start Date End Date Helena Yu PA [address] [facility] [address] [place] [address] PCP - General Internal Medicine 09/23/18 07/29/20 documented as of this encounter
--- OUTSIDE RECORDS SUMMARY | 2024-04-01 12:07 | XMS_ITS | Encounter Summary ---
Author Organization [facility] Address [address] [place] [address] Care Team Providers Care Cook Italian Style Food Name Role Phone Gabi Fagan MD Primary Care Pro vider Encounter Details Date Type Department Care Team (Late st Contact Info) Description 08/21/2020 Telephone [facility] Cardiology [address] [place] [address] Bindu Gaines MD [address] [place] [address] Social History Tobacco Use Types [...] file Legal Sex Female 8:13 AM CIRCUIT JUDGE Gender Identity Female 06/01/2020 9:42 PM CIRCUIT JUDGE Sexual Orientation Straight 06/01/2020 9: 42 PM CIRCUIT JUDGE 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
--- OUTSIDE RECORDS SUMMARY | 2024-04-01 12:07 | XMS_ITS | Encounter Summary ---
Author Organization [facility] Medical [facility] Address [address] [place] [address] [address] Team Providers Care [address] Light Servicer Supervisor Name Role Phone Gabi Fagan MD Primary Care Pro vider Encounter Details Date Type Department Care Team (Latest Contact Info) Description 11/16/2020 Anticoagulation Visit [facility] Cardiology [address] [place] [address] Huma Trevizo RN H/O mechanical aortic valve replacement (Primary Dx); group home current use of anticoagulant therapy [...] on file Legal Sex Female 8:13 AM DITCHING MACHINE OPERATING ENGINEER Gender Identity Female 06/01/2020 9:42 PM DITCHING MACHINE OPERATING ENGINEER Sexual Orientation Straight 06/01/2020 9: 42 PM DITCHING MACHINE OPERATING ENGINEER 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
--- OUTSIDE RECORDS SUMMARY | 2024-04-01 12:07 | XMS_ITS | Encounter Summary ---
Author Organization [facility] Address [address] [place] [address] Care Team Providers Care Metal Handler Name Role Phone Helena Yu Primary Care Provider +1- [phone] Encounter Details Date Type Department Care Team (Latest Contact Info) Description 04/18/2020 Anticoagulation Visit [facility] Cardiology [address] [place] [address] Huma Trevizo RN H/O mechanical aortic valve replacement; oil heaterman current use of anticoagulant therapy Social History [...] on file Legal Sex Female 8:13 AM EXTRACT OPERATOR Gender Identity Female 06/01/2020 9:42 PM EXTRACT OPERATOR Sexual Orientation Straight 06/01/2020 9: 42 PM EXTRACT OPERATOR 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
--- OUTSIDE RECORDS SUMMARY | 2024-04-01 12:07 | XMS_ITS | Encounter Summary ---
Author Organization [facility] Address [address] [place] [address] Care Team Providers Care Fish Hatchery Specialist Name Role Phone Helena Yu Primary Care Provider +1- [phone] Encounter Details Date Type Department Care Team (Latest Contact Info) Description 06/05/2020 Anticoagulation Visit [facility] Cardiology [address] [place] [address] Huma Trevizo RN H/O mechanical aortic valve replacement; joint [...] on file Legal Sex Female 8:13 AM FLOODPLAIN MANAGER Gender Identity Female 06/01/2020 9:42 PM FLOODPLAIN MANAGER Sexual Orientation Straight 06/01/2020 9: 42 PM FLOODPLAIN MANAGER 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
--- OUTSIDE RECORDS SUMMARY | 2024-04-01 12:07 | XMS_ITS | Encounter Summary ---
Author Organization [facility] Address [address] [facility] [address] [place] [address] Care Team Providers Care Service Station Equipment Mechanic Name Role Phone Helena Yu Primary Care Provider +1- [phone] Encounter Details Date Type Department Care Team (Latest Contact Info) Description 03/21/2020 Anticoagulation Visit [facility] Cardiology [address] [place] [address] Idalmis Ewing RN H/O mechanical aortic valve replacement; ocean transportation intermediary current use of anticoagulant therapy Social History [...] on file Legal Sex Female 8:13 AM DETACKER Gender Identity Female 06/01/2020 9:42 PM DETACKER Sexual Orientation Straight 06/01/2020 9: 42 PM DETACKER 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
--- OUTSIDE RECORDS SUMMARY | 2024-04-01 12:07 | XMS_ITS | Encounter Summary ---
Author Organization [facility] Address [address] [facility] [address] [place] [address] Care Team Providers Care Residential Mortgage Manager Name Role Phone Helena Yu Primary Care Provider +1- [phone] Encounter Details Date Type Department Care Team (Latest Contact Info) Description 03/14/2020 Anticoagulation Visit [facility] Cardiology [address] [place] [address] Bindu Gaines MD [address] [place] [address] H/O mechanical aortic valve replacement; medical technologist chemistry current use of anticoagulant therapy Social History [...] on file Legal Sex Female 8:13 AM PROFESSOR OF FINE ART Gender Identity Female 06/01/2020 9:42 PM PROFESSOR OF FINE ART Sexual Orientation Straight 06/01/2020 9: 42 PM PROFESSOR OF FINE ART 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
--- OUTSIDE RECORDS SUMMARY | 2024-04-01 12:07 | XMS_ITS | Encounter Summary ---
Author Organization [facility] Address [address] [facility] [address] [place] [address] Care Team Providers Care Check Services Clerk Name Role Phone Gabi Fagan MD Primary Care Pro vider Encounter Details Date Type Department Care Team (Latest Contact Info) Description 07/31/2020 Anticoagulation Visit [facility] Cardiology [address] [place] [address] Huma Trevizo RN H/O mechanical [...] on file Legal Sex Female 8:13 AM SALESPERSON FLYING SQUAD Gender Identity Female 06/01/2020 9:42 PM SALESPERSON FLYING SQUAD Sexual Orientation Straight 06/01/2020 9: 42 PM SALESPERSON FLYING SQUAD 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
--- OUTSIDE RECORDS SUMMARY | 2024-04-01 12:07 | XMS_ITS | Encounter Summary ---
Author Organization [facility] Address [address] [facility] [address] [place] [address] Care Team Providers Care Milk Bottling Machine Operator Name Role Phone Gabi Fagan MD Primary Care Pro vider Reason for Referral * Neurology (Routine) - Closed Specialty Diagnoses / Procedures Referred By Contla t Referred To Contact Diagnoses Bilateral sciatica Procedures EMG/NCV - Gabi Fagan MD Phone: tel: fax: [address] [address] Referral ID Status Reason Start Date Expiration Date Visits Re quested Visits Authorized [id number] Closed 11/21/2020 12/21/2021 1 1 Reason for Visit * Reason Comments Follow-up 3 month Encounter Details Date Type Department Care Team (Latest Contact Info) Description 11/21/2020 1:00 PM CDT Office Visit [facility] Primary Care [address] [place] [address] [address] [place] [address] Gabi Fagan MD [address] [place] [address] Bilateral sciatica (Primary Dx); Moderate episode [...] file Legal Sex Female 8:13 AM ASPHALT SMOOTHER Gender Identity Female 06/01/2020 9:42 PM ASPHALT SMOOTHER Sexual Orientation Straight 06/01/2020 9: 42 PM ASPHALT SMOOTHER 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
--- OUTSIDE RECORDS SUMMARY | 2024-04-01 12:07 | XMS_ITS | Encounter Summary ---
Author Organization [facility] Address [address] [facility] [address] [place] [address] Care Team Providers Care Machine Captain Name Role Phone Helena Yu Primary Care Provider +1- [phone] Encounter Details Date Type Department Care Team (Late st Contact Info) Description 03/07/2020 Telephone [facility] Cardiology [address] [facility] [address] [place] [address] Bindu Gaines MD [address] [place] [address] Social History Tobacco Use Types [...] on file Legal Sex Female 8:13 AM PARK INTERPRETIVE RANGER Gender Identity Female 06/01/2020 9:42 PM PARK INTERPRETIVE RANGER Sexual Orientation Straight 06/01/2020 9: 42 PM PARK INTERPRETIVE RANGER 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 Re-corrected the flow sheet again. Patient checked INR yesterday, which was 2.7, but she had missed Thursday's dose. Kept dose the same and patient to recheck next week. INTERPRETIVE RANGER * Telephone Encounter - Naa Gómez - 03/14/2020 2:57 PM CST Pt called to speak with Aria BATEMAN in regards to pt's INR results. INTERPRETIVE RANGER * Telephone Encounter - Aria Harvey RN - 03/14/2020 2:40 PM PARK INTERPRETIVE RANGER Corrected INR in flow sheet. Patient should have new INR due today. LMOM for patient that record corrected and will wait for new INR to give new instructions. INTERPRETIVE RANGER INTERPRETIVE RANGER * Telephone Encounter - Tabitha Craft - 03/14/2020 2:26 PM PARK INTERPRETIVE RANGER Pt provided the incorrect information regarding INR on prior phone call. Pt correct INR is 2.7 cb [phone] INTERPRETIVE RANGER * Telephone Encounter - Jane Mcmullen - 03/14/2020 2:23 PM CST Pt called to report INR 2.9 results. cb [phone] INTERPRETIVE RANGER * Telephone Encounter - Aria Harvey RN - 03/07/2020 1:23 PM PARK INTERPRETIVE RANGER INR addressed w/patient. See anticoag flow sheet. INTERPRETIVE RANGER * Telephone Encounter - Aria Harvey RN - 03/07/2020 12:30 PM PARK INTERPRETIVE RANGER Attempted to call patient back, [facility] Left another message requesting return call. INTERPRETIVE RANGER * Telephone Encounter - Jane Mcmullen - 03/07/2020 11:36 AM CST Pt requesting a return call cb [phone] INTERPRETIVE RANGER * Telephone Encounter - Aria Harvey RN - 03/07/2020 10:38 AM PARK INTERPRETIVE RANGER LMOM requesting return call to discuss. Significant drop with changes last week, although therapeutic. Would like to discuss either keeping dose same for another week or increasing just slightly (2mgjust one day per week, 4 mg all other days) and recheck in one week. Will encourage to avoid excessive alcohol intake as well. INTERPRETIVE RANGER * Telephone Encounter - Jane Mcmullen - 03/07/2020 10:20 AM CST Pt called to report INR 2.9 results PT 27.7 cb [phone] INTERPRETIVE RANGER documented in this encounter Plan of Treatment Not on file documented as of this encounter Visit Diagnoses Not on filedocumented in this encounter Care Teams Machine Captain Relationship Specialty Start Date End Date Helena Yu PA [address] [place] [address] PCP - General Internal Medicine 09/23/18 07/29/20 documented as of this encounter
--- OUTSIDE RECORDS SUMMARY | 2024-04-01 12:07 | XMS_ITS | Encounter Summary ---
Author Organization [facility] Address [address] [facility] [address] [place] [address] Care Team Providers Care Plaster Caster Name Role Phone Gabi Fagan MD Primary Care Pro vider Encounter Details Date Type Department Care Team (Latest Contact Info) Description 12/13/2020 Anticoagulation Visit [facility] Cardiology [address] [place] [address] Huma Trevizo RN H/O mechanical [...] on file Legal Sex Female 8:13 AM COTTAGE MASTER Gender Identity Female 06/01/2020 9:42 PM COTTAGE MASTER Sexual Orientation Straight 06/01/2020 9: 42 PM COTTAGE MASTER 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
--- OUTSIDE RECORDS SUMMARY | 2024-04-01 12:07 | XMS_ITS | Encounter Summary ---
Author Organization [facility] Address [address] [facility] [address] [place] [address] Care Team Providers Care Rectifying Operator Name Role Phone Gabi Fagan MD Primary Care Pro vider Reason for Referral * Cardiology (Routine) - Closed Specialty Diagnoses / Procedures Referred By Contac t Referred To Contact Diagnoses H/O mechanical aortic valve replacement Bicuspid aortic valve Procedures Transthoracic Echo Complete W Doppler/CF Bindu Santamaria MD Phone: tel: fax: [facility] Referral ID Status Reason Start Date Expiration Date Visits Re quested Visits Authorized [id number] Closed 12/10/2020 01/09/2022 1 1 Reason for Visit * Reason Comments Follow-up yearly follow up on bicuspid AV, h/o AVR, dyslipidemia Encounter Details Date Type Department Care Team (Latest Contact Info) Description 12/10/2020 1:00 PM CDT Office Visit [facility] Cardiology [address] [address] Bindu Santamaria MD [address] [place] [address] H/O mechanical aortic valve replacement (Primary Dx); [...] file Legal Sex Female 8:13 AM WRAPPER OFF Gender Identity Female 06/01/2020 9:42 PM WRAPPER OFF Sexual Orientation Straight 06/01/2020 9: 42 PM WRAPPER OFF 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 Guthrie in 2008. [...] NO CP, SOB, dizziness. 12/01/2019 ov with MAIL OPENER Kameron Meng: Here for annual visit. Currently [...] also severely disabled, and moved into a jail but it didn't work out and now [...] Relation Age of Onset ??? Other Father [place] age 50, CABG; ??? Heart attack Father [...] mmHg --> Aortic valve replacement, 19 mm Arkoma valve 2008: EF 63%, LYNSEY 1.0-1.1 cm2, [...] year, sooner if needed Bindu Santamaria MD, [facility] Office: [phone] or [phone] This note is dictated and transcribed by with assistance from [employer] Software.?? Aeronautical Test Engineer variances may occur. Despite proofreading, typographical errors [...] PM CDT Narrative 01/10/2021 4:20 PM CDT [facility] Cardiology [address] [facility] [address], [place] [address] [address] [facility] [address], [place] [address] P:[phone] P:[phone] Echocardiographic Report Patient Name: YESSY NIXON : 1955 Study Date: 01/10/2021 12:50:31 PM Gender: F Tech: Location: [place] Ref.Provider: BINDU SANTAMARIA Height(Cm): 155 BSA: 1.64 [...] Interpretation Site: Exam was interpreted at [facility]. Left Ventricle: Normal left ventricular size. Mild [...] unchanged. Electronically Signed By: Dat Chauhan MD, [facility] 2021-01-10 16:20:25 CDT Procedure Note Dat Chauhan MD - 01/10/2021 [facility] Cardiology [address] [facility] [address], [place] [address] [address] [facility] [address], [place] [address] P:[phone] P:[phone] Echocardiographic Report Patient Name: YESSY NIXONPatient ID: [id number] : [id number] Date: 01/10/2021 12:50:31 PM Gender: FAccession #: [id number] Tech: GMLocation: [place] Ref.Provider: BINDU SANTAMARIAHeight(Cm): 155 BSA: 1.64Weight(Kg): 64.86 [...] 0.40 - 0.80 ] m/s MV Decel Sfvp642 [ 150 - 200 ] msec PV Peak Vel0.99 [ 0.40 - 0.80 ] m/s TR Peak Vel2.54 [ 0.40 - 0.80 ] m/s TR Peak PG 26mmHg RVSP34.00 mmHg E'0.10 E/E' 7 Findings: Interpretation Site: Exam was interpreted at [facility]. Left Ventricle: Normal left ventricular size. Mild [...] unchanged. Electronically Signed By: Dat Chauhan MD, [facility] 2021-01-10 16:20:25 CDT us Bindu Santamaria MD [...] valve documented in this encounter Care Teams Rectifying Operator Relationship Specialty Start Date End Date Gabi Fagan MD PCP - General Family Medicine 07/30/20 01/09/21 documented as of this encounter
--- OUTSIDE RECORDS SUMMARY | 2024-04-01 12:07 | XMS_ITS | Encounter Summary ---
Author Organization [facility] Address [address] [facility] [address] [place] [address] Care Team Providers Care County Coroner Name Role Phone Gabi Fagan MD Primary Care Pro vider Nathalie Jain MD Primary Care Provider +1- [phone] Encounter Details Date Type Department Care Team (Late st Contact Info) Description 12/14/2020 Telephone [facility] Cardiology [address] [facility] [address] [place] [address] Bindu Gaines MD [address] [facility] [address] [place] [address] Social History Tobacco Use Types [...] on file Legal Sex Female 8:13 AM PARTNERSHIP DEVELOPMENT MANAGER Gender Identity Female 06/01/2020 9:42 PM PARTNERSHIP DEVELOPMENT MANAGER Sexual Orientation Straight 06/01/2020 9: 42 PM PARTNERSHIP DEVELOPMENT MANAGER 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
--- OUTSIDE RECORDS SUMMARY | 2024-04-01 12:07 | XMS_ITS | Encounter Summary ---
Author Organization [facility] Healthcare Address [address] [place] [address] Care Team Providers Care Service Station Helper Name Role Phone Gabi Fagan MD Primary Care Pro vider Reason for Visit * Neurology (Routine) - Closed Specialty Diagnoses / Procedures Referred By Contac t Referred To Contact Diagnoses Bilateral sciatica Procedures EMG/NCV - Gabi Fagan MD Phone: tel: fax: [facility] [address] [place] [phone] Referral ID Status Reason Start Date Expiration Date Visits Re quested Visits Authorized [id number] Closed 11/21/2020 12/21/2021 1 1 Encounter Details Date Type Department Care Team (Late st Contact Info) Description 12/27/2020 2:00 PM CDT Therapy [facility] Physical Therapy [address] [place] [address] Bilateral sciatica Social History Tobacco Use [...] on file Legal Sex Female 8:13 AM ARCHITECTURAL TECHNICIAN Gender Identity Female 06/01/2020 9:42 PM ARCHITECTURAL TECHNICIAN Sexual Orientation Straight 06/01/2020 9: 42 PM ARCHITECTURAL TECHNICIAN 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
--- OUTSIDE RECORDS SUMMARY | 2024-04-01 12:07 | XMS_ITS | Encounter Summary ---
Author Organization [facility] Address [address] [facility] [address] [place] [address] Care Team Providers Care Audit Manager Name Role Phone Gabi Fagan MD Primary Care Pro vider Reason for Visit * Reason Comments Follow-up Pt in office for [address] [place] follow up. Encounter Details Date Type Department Care Team (Latest Contact Info) Description 08/27/2020 2:45 PM CDT Office Visit [facility] Primary Care [address] [place] [address] Gabi Fagan MD [address] [place] [address] H/O mechanical aortic valve replacement (Primary Dx); termite control service representative current use of anticoagulant therapy; Bilateral sciatica [...] on file Legal Sex Female 8:13 AM ETL DEVELOPER Gender Identity Female 06/01/2020 9:42 PM ETL DEVELOPER Sexual Orientation Straight 06/01/2020 9: 42 PM ETL DEVELOPER 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 Not on file [...] Follows with cardiology Orders: - POCT INR termite control service representative current use of anticoagulant therapy - POCT [...] PM CDT H/O mechanical aortic valve replacement 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 Results * POCT INR (08/27/2020 2:55 PM CDT) INR, POC 3.10 Blood specimen (specimen) (Blood, Venous) 08/27/2020 2:55 PM CDT Gabi Fagan MD POINT OF CARE GERALDO T ORDERABLES Final Result documented in this encounter Visit Diagnoses Diagnosis H/O mechanical aortic valve replacement- Primary [facility] current use of anticoagulant therapy Bilateral sciatica Sciatica documented in this encounter Discontinued Medications Medication Sig Discontinue Reason Start Date End Da te gpxtlltgo-vaepwro-tbpit acid 400-200-1 mg tablet Take by mouth [...] 11/21/2020 added in this encounter Care Teams Audit Manager Relationship Specialty Start Date End Date Gabi Fagan MD PCP - General Family Medicine 07/30/20 01/09/21 documented as of this encounter
--- OUTSIDE RECORDS SUMMARY | 2024-04-01 12:07 | XMS_ITS | Encounter Summary ---
Author Organization [facility] Address [address] [facility] [address] [place] [address] Care Team Providers Care Cat And Dog Bather Name Role Phone Gabi Fagan MD Primary Care Pro vider Encounter Details Date Type Department Care Team (Latest Contact Info) Description 08/27/2020 Anticoagulation Visit [facility] Cardiology [address] [place] [address] Huma Trevizo RN H/O mechanical aortic valve replacement (Primary Dx); [facility] current use of anticoagulant therapy Social [...] on file Legal Sex Female 8:13 AM OILER AND GREASER Gender Identity Female 06/01/2020 9:42 PM OILER AND GREASER Sexual Orientation Straight 06/01/2020 9: 42 PM OILER AND GREASER 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
--- OUTSIDE RECORDS SUMMARY | 2024-04-01 12:07 | XMS_ITS | Encounter Summary ---
Author Organization [facility] Address [address] [facility] [address] [place] [address] Care Team Providers Care Motor Route Carrier Name Role Phone Helena Yu Primary Care Provider +1- [phone] Encounter Details Date Type Department Care Team (Latest Contact Info) Description 04/24/2020 Anticoagulation Visit [facility] Cardiology [address] [place] [address] Huma Trevizo RN H/O mechanical aortic valve replacement; rn long term care current use of [...] on file Legal Sex Female 8:13 AM ELECTRIC METER SETTER Gender Identity Female 06/01/2020 9:42 PM ELECTRIC METER SETTER Sexual Orientation Straight 06/01/2020 9: 42 PM ELECTRIC METER SETTER 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
--- OUTSIDE RECORDS SUMMARY | 2024-04-01 12:07 | XMS_ITS | Encounter Summary ---
Author Organization [facility] Address [address] [facility] [address] [place] [address] Care Team Providers Care Aerospace Mechanic Name Role Phone Gabi Fagan MD Primary Care Pro vider Encounter Details Date Type Department Care Team (Latest Contact Info) Description 12/21/2020 Anticoagulation Visit [facility] Medical [facility] Cardiology [address] [facility] [address] [place] [address] Judi Angulo RN H/O mechanical aortic [...] on file Legal Sex Female 8:13 AM HVAC PROJECT MANAGER Gender Identity Female 06/01/2020 9:42 PM HVAC PROJECT MANAGER Sexual Orientation Straight 06/01/2020 9: 42 PM HVAC PROJECT MANAGER 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
--- OUTSIDE RECORDS SUMMARY | 2024-04-01 12:07 | XMS_ITS | Encounter Summary ---
Author Organization [facility] Address [address] [place] [address] Care Team Providers Care Disc Recordist Name Role Phone Nathalie Jain MD Primary Care Provider +1- [phone] Reason for Visit * Cardiology (Routine) - Closed Specialty Diagnoses / Procedures Referred By Contac t Referred To Contact Diagnoses H/O mechanical aortic valve replacement Bicuspid aortic valve Procedures Transthoracic Echo Complete W Doppler/CF Lalo Santamaria MD Phone: tel: fax: [facility] Referral ID Status Reason Start Date Expiration Date Visits Re quested Visits Authorized [id number] Closed 12/10/2020 01/09/2022 1 1 Encounter Details Date Type Department Care Team (Latest Contact Info) Description 01/10/2021 1:00 PM CDT Ancillary Procedure [facility] Medical 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 Left Ventricle: Normal left ventricular size. [...] unchanged. Electronically Signed By: Dat Chauhan MD, [facility] 2021-01-10 16:20:25 CDT Procedure Note Dat Chauhan MD - 01/10/2021 [facility] Cardiology [address] [facility] [address], [place] [address] [address] [facility] [address], [place] [address] P:[phone] P:[phone] Echocardiographic Report Patient Name: YESSY NIXONPatient ID: [id number] : [id number] Date: 01/10/2021 12:50:31 PM Gender: FAccession #: [id number] Tech: GMLocation: [place] Ref.Provider: UPPSTROM, ERICAHeight(Cm): 155 BSA: 1.64Weight(Kg): 64.86 [...] 0.40 - 0.80 ] m/s MV Decel [id number] [ 150 - 200 ] msec PV Peak Vel0.99 [ 0.40 - 0.80 ] m/s TR Peak Vel2.54 [ 0.40 - 0.80 ] m/s TR Peak PG 26mmHg RVSP34.00 mmHg E'0.10 E/E' 7 Findings: Interpretation Site: Exam was interpreted at [facility]. Left Ventricle: Normal left ventricular size. [...] unchanged. Electronically Signed By: Dat Chauhan MD, [facility] 2021-01-10 16:20:25 CDT Lalo Santamaria MD CV ECHO PROCEDURES Final Re sult documented in this encounter Visit Diagnoses Diagnosis H/O mechanical aortic valve replacement Bicuspid aortic valve Congenital insufficiency of aortic valve documented in this encounter Care Teams Disc Recordist Relationship Specialty Start Date End Date Nathalie Jain MD [address] [place] [address] PCP - General Internal Medicine 01/10/21 09/22/22 documented as of this encounter
--- OUTSIDE RECORDS SUMMARY | 2024-04-01 12:07 | XMS_ITS | Encounter Summary ---
Author Organization [facility] Address [address] [place] [address] Care Team Providers Care Rolling Mill Operator Name Role Phone Gabi Fagan MD Primary Care Pro vider Reason for Visit * Reason Comments Follow-up Had [facility] on the 16 Encounter Details Date Type Department Care Team ([facility] st Contact Info) Description 01/01/2021 11:30 AM CDT Office Visit [facility] Primary Care [address] [facility] [address] [place] [address] Gabi Fagan MD [address] [place] [address] [address] [place] [address] Bilateral sciatica (Primary Dx) Social [...] file Legal Sex Female 8:13 AM WINE MAKER Gender Identity Female 06/01/2020 9:42 PM WINE MAKER Sexual Orientation Straight 06/01/2020 9: 42 PM WINE MAKER 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
--- OUTSIDE RECORDS SUMMARY | 2024-04-01 12:07 | XMS_ITS | Encounter Summary ---
Author Organization [facility] Address [address] [place] [address] Care Team Providers Care Technical Writer Name Role Phone Gabi Fagan MD Primary Care Pro vider Encounter Details Date Type Department Care Team (Latest Contact Info) Description 10/19/[address] 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
--- OUTSIDE RECORDS SUMMARY | 2024-04-01 12:07 | XMS_ITS | Encounter Summary ---
Author Organization [facility] Address [address] [place] [address] Care Team Providers Care Balloon Maker Name Role Phone Gabi Fagan MD Primary Care Pro vider Encounter Details Date Type Department Care Team (Latest Contact Info) Description 09/21/2020 Anticoagulation Visit [facility] Medical [facility] Cardiology [address] [facility] [address] [place] [address] Judi Angulo RN H/O mechanical aortic valve replacement (Primary Dx); long term care pharmacist current use of anticoagulant therapy Social History [...] on file Legal Sex Female 8:13 AM COPY READER Gender Identity Female 06/01/2020 9:42 PM COPY READER Sexual Orientation Straight 06/01/2020 9: 42 PM COPY READER 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
--- OUTSIDE RECORDS SUMMARY | 2024-04-01 12:08 | XMS_ITS | Encounter Summary ---
Author Organization [facility] Address [address] [facility] [address] [facility] [address] [place] [address] Care Team Providers Care Concert Manager Name Role Phone Helena Yu Primary Care Provider +1- [phone] Reason for Referral * Diagnostic Imaging (Routine) - Closed Specialty Diagnoses / Procedures Referred By Contac t Referred To Contact Diagnoses Right sided sciatica Procedures MRI Lumbar Spine WO Contrast Helena Yu PA [address] [place] [address] Phone: tel: fax: [address] [place] [address] Phone: tel: Referral ID Status Reason Start Date Expiration Date Visits Re quested Visits Authorized [id number] Closed 12/25/2019 01/23/2021 1 1 Reason for Visit * Reason Onset Date Comments imaging results 12/21/2019 Encounter Details Date Type Department Care Team (Late st Contact Info) Description 12/21/2019 Telephone [facility] Family Medicine [address] [place] [address] Helena Yu PA [address] [place] [address] imaging results Social History Tobacco [...] on file Legal Sex Female 8:13 AM HISTORIOGRAPHER Gender Identity Female 06/01/2020 9:42 PM HISTORIOGRAPHER Sexual Orientation Straight 06/01/2020 9: 42 PM HISTORIOGRAPHER 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 * Telephone Encounter - Yessy Gomes PA - 12/27/2019 1:07 PM CDT Patient called back - she would like the mri scheduled at [facility] please. I told her we would [...] if an MRI order could go to [facility]. Patient said that December 28 between [...] the MRI yes to do it at [place] but it would need to be this [...] lumbar spine. Does she want it at [place]? * Telephone Encounter - Berta Bhatia MA [...] Modality Spine N/A Radiographic Adriana ging Helena DAVEY IMG XR PROCEDURES Final Re sult documented in this encounter Visit Diagnoses Diagnosis Right sided sciatica Sciatica documented in this encounter Care Teams Concert Manager Relationship Specialty Start Date End Date Helena Yu PA [address] [place] [address] PCP - General Internal Medicine 09/23/18 07/29/20 documented as of this encounter
--- OUTSIDE RECORDS SUMMARY | 2024-04-01 12:08 | XMS_ITS | Encounter Summary ---
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 current use of anticoagulant therapy Social History [...] on file Legal Sex Female 8:13 AM OPTICAL GLASS WET INSPECTOR Gender Identity Female 06/01/2020 9:42 PM OPTICAL GLASS WET INSPECTOR Sexual Orientation Straight 06/01/2020 9: 42 PM OPTICAL GLASS WET INSPECTOR 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
--- OUTSIDE RECORDS SUMMARY | 2024-04-01 12:08 | XMS_ITS | Encounter Summary ---
Author Organization [facility] Address [address] [place] [address] Care Team Providers Care Dehydrogenation Operator Head Name Role Phone Helena Yu Primary Care Provider +1- [phone] Encounter Details Date Type Department Care Team (Late st Contact Info) Description 02/24/[address] 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 4 tablet/capsule 02/24/2020 07/30/2020 documented in this encounter Miscellaneous Notes * Telephone Encounter - Huma Trevizo RN - 02/24/2020 11:58 AM PART TIME Called pt and Rx for amoxicillin sent to pharm prior to her dental appt. Pt verbalized understanding. TIME * Telephone Encounter - Jane Mcmullen - 02/24/2020 11:44 AM CST Pt has requested a return call to discuss an being pre medicated for her dental appt on TIME documented in this encounter Plan of Treatment Not on file documented as of this encounter Visit Diagnoses Not on filedocumented in this encounter Care Teams Dehydrogenation Operator Head Relationship Specialty Start Date End Date Helena Yu PA [address] [facility] [address] [place] [address] PCP - General Internal Medicine 09/23/18 07/29/20 documented as of this encounter
--- OUTSIDE RECORDS SUMMARY | 2024-04-01 12:08 | XMS_ITS | Encounter Summary ---
Author Organization [facility] Address [address] [place] [address] Care Team Providers Care Salon Receptionist Name Role Phone Helena Yu Primary Care Provider +1- [phone] Encounter Details Date Type Department Care Team (Late st Contact Info) Description 01/31/2020 Telephone [facility] Cardiology [address] [place] [address] Bindu Gaines MD [address] [place] [address] Social History Tobacco Use Types [...] on file Legal Sex Female 8:13 AM SURVEYING CREW RODMAN Gender Identity Female 06/01/2020 9:42 PM SURVEYING CREW RODMAN Sexual Orientation Straight 06/01/2020 9: 42 PM SURVEYING CREW RODMAN 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 * Telephone Encounter - Jane Mcmullen - 01/31/2020 3:23 PM CDT Incoming call from Nelia with the [facility] in [place] called with an update on the hold request for the pt medication. Jorden states the pt should start the withhold on the Warfarinmedication on . 02-02-2020. Jorden has also stated that this is a very urgent matter. [phone] * Telephone Encounter - Huma Trevizo, BHAVANA - 01/31/2020 2:42 PM CDT LM on [place] VM notifying her that we received the [...] filedocumented in this encounter Care Teams Salon Receptionist Relationship Specialty Start Date End Date Helena Yu PA [address] [place] [address] PCP - General Internal Medicine 09/23/18 07/29/20 documented as of this encounter
--- OUTSIDE RECORDS SUMMARY | 2024-04-01 12:08 | XMS_ITS | Encounter Summary ---
Author Organization [facility] Medical [facility] Address [address] [place] [address] Care Team Providers Care Mold Yard Crane Operator Name Role Phone Helena Yu Primary Care Provider +1- [phone] Reason for Referral * Diagnostic Imaging (Routine) - Closed Specialty Diagnoses / Procedures Referred By Contac t Referred To Contact Procedures XR Knee Left 4 or More Views [facility] [address] [place] [address] Phone: tel: fax: Referral ID Status Reason Start Date Expiration Date Visits Re quested Visits Authorized [id number] Closed 01/24/2020 02/22/2021 1 1 Encounter Details Date Type Department Care Team (Late st Contact Info) Description 01/24/2020 Orders Only [facility] [address] [place] [address] ProviderReynaldo MD [address] [place] [address] Social History Tobacco Use Types Packs/Day [...] file Legal Sex Female 8:13 AM SUPERINTENDENT SERVICE Gender Identity Female 06/01/2020 9:42 PM SUPERINTENDENT SERVICE Sexual Orientation Straight 06/01/2020 9: 42 PM SUPERINTENDENT SERVICE 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
--- OUTSIDE RECORDS SUMMARY | 2024-04-01 12:08 | XMS_ITS | Encounter Summary ---
Author Organization [facility] Address [address] [place] [address] Care Team Providers Care Speed Reading Teacher Name Role Phone Helena Yu Primary Care Provider +1- [phone] Reason for Visit * Reason Onset Date Comments BCBS PA for MRI 01/02/2020 Encounter Details Date Type Department Care Team (Late st Contact Info) Description 01/02/2020 Telephone [facility] Family Medicine [address] [place] [address] Helena Yu PA 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 After speaking with a chemical sales representative I was informed patient does not need a pre-cert for this MRI. I called patient and let her know. Have not been able to get anyone from [facility]'s pre-cert dept. Will try again in the [...] MRI and if she could just come forklift picker the order and schedule it herself. Patient came up 12/28 and picked the order. Patient is currently scheduled 01/05/20 at [facility] documented in this encounter Plan of Treatment Not on file documented as of this encounter Visit Diagnoses Not on filedocumented in this encounter Care Teams Speed Reading Teacher Relationship Specialty Start Date End Date Helena Yu PA [address] [facility] [address] [place] [address] PCP - General Internal Medicine 09/23/18 07/29/20 documented as of this encounter
--- OUTSIDE RECORDS SUMMARY | 2024-04-01 12:08 | XMS_ITS | Encounter Summary ---
Author Organization [facility] Address [address] [place] [address] Care Team Providers Care Marble Machine Tender Name Role Phone Helena Yu Primary Care Provider +1- [phone] Encounter Details Date Type Department Care Team (Late st Contact Info) Description 12/30/[address] 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 [address] [place] [address] PCP - General Internal Medicine 09/23/18 07/29/20 documented as of this encounter
--- OUTSIDE RECORDS SUMMARY | 2024-04-01 12:08 | XMS_ITS | Encounter Summary ---
Author Organization [facility] Address [address] [place] [address] Care Team Providers Care Development Mechanic Name Role Phone Helena Yu Primary Care Provider +1- [phone] Reason for Visit * Cardiology (Routine) - Closed Specialty Diagnoses / Procedures Referred By Contac t Referred To Contact Diagnoses H/O mechanical aortic valve replacement Procedures Transthoracic Echo Complete W Doppler/CF Su Mott NP [address] [facility] [address] [address] Phone: tel: fax: [facility] Referral ID Status Reason Start Date Expiration Date Visits Re quested Visits Authorized [id number] Closed 12/01/2019 12/30/2020 1 1 Encounter Details Date Type Department Care Team (Late st Contact Info) Description 12/29/2019 8:15 AM CDT Ancillary Procedure [facility] Cardiology [address] [address] Social History Tobacco Use Types Packs/Day Years [...] on file Legal Sex Female 8:13 AM VETERINARIAN EPIDEMIOLOGIST Gender Identity Female 06/01/2020 9:42 PM VETERINARIAN EPIDEMIOLOGIST Sexual Orientation Straight 06/01/2020 9: 42 PM VETERINARIAN EPIDEMIOLOGIST 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 Left Ventricle: Normal left ventricular systolic [...] Procedure Note Giuseppe Bullard MD - 12/29/2019 [facility] Cardiology [address] [facility] [address], [place] [address] [address] [facility] [address], [place] [address] P:[phone] P:[phone] Echocardiographic Report Patient Name: YESSY NIXONPatient ID: [id number] : [id number] Date: 12/29/2019 8:17:04 AM Gender: FAccession #: [id number] Tech: GMLocation: [place] Ref.Provider: SU OMTTHeight(Cm): 157 BSA: 1.63Weight(Kg): 62.6 Heart Rate: 63BP: [...] 0.40 - 0.80 ] m/s MV Decel [id number] [ 150 - 200 ] msec PV Peak Vel0.82 [ 0.40 - 0.80 ] m/s TR Peak Vel2.38 [ 0.40 - 0.80 ] m/s TR Peak PG 23mmHg RVSP31.00 mmHg E'0.11 E/E' 6 Findings: Interpretation Site: Exam was interpreted at [facility]. Left Ventricle: Normal left ventricular systolic [...] filedocumented in this encounter Care Teams Development Mechanic Relationship Specialty Start Date End Date Helena Yu PA [address] [facility] [address] [place] [address] PCP - General Internal Medicine 09/23/18 07/29/20 documented as of this encounter
--- OUTSIDE RECORDS SUMMARY | 2024-04-01 12:08 | XMS_ITS | Encounter Summary ---
Author Organization [facility] Address [address] [place] [address] Care Team Providers Care Senior Java Engineer Name Role Phone Helena Yu Primary Care Provider +1- [phone] Encounter Details Date Type Department Care Team (Latest Contact Info) Description 02/01/2020 Anticoagulation Visit [facility] Cardiology [address] [place] [address] Huma Trevizo RN H/O mechanical aortic valve replacement; supervisor intermediates current use of anticoagulant therapy Social History [...] file Legal Sex Female 8:13 AM INSPECTOR ALUMINUM BOAT Gender Identity Female 06/01/2020 9:42 PM INSPECTOR ALUMINUM BOAT Sexual Orientation Straight 06/01/2020 9: 42 PM INSPECTOR ALUMINUM BOAT 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
--- OUTSIDE RECORDS SUMMARY | 2024-04-01 12:08 | XMS_ITS | Encounter Summary ---
Author Organization [facility] Address [address] [place] [address] Care Team Providers Care Agile Qa Tester Name Role Phone Helena Yu Primary Care Provider +1- [phone] Reason for Referral * Diagnostic Imaging (Routine) - Closed Specialty Diagnoses / Procedures Referred By Contac t Referred To Contact Diagnoses Breast cancer screening by mammogram Procedures Screening Mammogram Bilateral W Thai Helena Yu PA [address] [place] [address] Phone: tel: fax: Unknown Place of Service fax: Referral ID Status Reason Start Date Expiration Date Visits Re quested Visits Authorized [id number] Closed 12/12/2019 01/10/2021 1 1 * Diagnostic Imaging (Routine) - Closed Specialty Diagnoses / Procedures Referred By Contac t Referred To Contact Diagnoses Right sided sciatica Procedures XR Spine Lumbar 2 or 3 Views Helena Yu PA [address] [place] [address] Phone: tel: fax: External Order Referral ID Status Reason Start Date Expiration Date Visits Re quested Visits Authorized [id number] Closed 12/12/2019 01/10/2021 1 1 Reason for Visit * Reason Comments Follow-up on Lt sided sciatica pain Encounter Details Date Type Department Care Team (Latest Contact Info) Description 12/12/2019 8:00 AM CDT Office Visit [facility] Family Medicine [address] [place] [address] Helena Yu PA [address] [place] [address] Annual physical exam (Primary Dx); Right sided sciatica; Breast cancer screening by mammogram; BMI 25.0-25.9,adult; Breast cancer screening; Moderate episode of recurrent major depressive disorder (CMS/HCC); 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 therapy; H/O mechanical [...] on file Legal Sex Female 8:13 AM SHEET METAL PRODUCTION WORKER Gender Identity Female 06/01/2020 9:42 PM SHEET METAL PRODUCTION WORKER Sexual Orientation Straight 06/01/2020 9: 42 PM SHEET METAL PRODUCTION WORKER 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
--- OUTSIDE RECORDS SUMMARY | 2024-04-01 12:08 | XMS_ITS | Encounter Summary ---
Author Organization [facility] Address [address] [place] [address] Care Team Providers Care Automat Car Attendant Name Role Phone Helena Yu Primary Care Provider +1- [phone] Encounter Details Date Type Department Care Team (Late st Contact Info) Description 01/09/[address] 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
--- OUTSIDE RECORDS SUMMARY | 2024-04-01 12:08 | XMS_ITS | Encounter Summary ---
Author Organization [facility] Address [address] [place] [address] Care Team Providers Care Structural Engineering Drafting Officer Name Role Phone Helena Yu Primary Care Provider +1- [phone] Encounter Details Date Type Department Care Team (Latest Contact Info) Description 12/05/2019 Anticoagulation Visit [facility] Medical [facility] Cardiology [address] [place] [address] Bennett Saavedra RN H/O mechanical aortic valve replacement; continuous [...] on file Legal Sex Female 8:13 AM LACING OPERATOR Gender Identity Female 06/01/2020 9:42 PM LACING OPERATOR Sexual Orientation Straight 06/01/2020 9: 42 PM LACING OPERATOR 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
--- OUTSIDE RECORDS SUMMARY | 2024-04-01 12:08 | XMS_ITS | Encounter Summary ---
Author Organization [facility] Address [address] [place] [address] Care Team Providers Care Form Setter/Driver Name Role Phone Helena Yu Primary Care Provider +1- [phone] Encounter Details Date Type Department Care Team (Late st Contact Info) Description 01/05/2020 Telephone [facility] Family Medicine [address] [place] [address] Yessy Branch PA [address] [place] [address] Social History Tobacco Use Types Packs/Day Years [...] on file Legal Sex Female 8:13 AM POWER PLANT OPERATOR Gender Identity Female 06/01/2020 9:42 PM POWER PLANT OPERATOR Sexual Orientation Straight 06/01/2020 9: 42 PM POWER PLANT OPERATOR 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
--- OUTSIDE RECORDS SUMMARY | 2024-04-01 12:08 | XMS_ITS | Encounter Summary ---
Author Organization [facility] Address [address] [place] [address] Care Team Providers Care Rock Loader Name Role Phone Helena Yu Primary Care Provider +1- [phone] Encounter Details Date Type Department Care Team (Latest Contact Info) Description 11/08/2019 Anticoagulation Visit [facility] Cardiology [address] [place] [address] Huma Trevizo RN H/O mechanical aortic valve replacement; intermission [...] on file Legal Sex Female 8:13 AM PLUMBING ENGINEER Gender Identity Female 06/01/2020 9:42 PM PLUMBING ENGINEER Sexual Orientation Straight 06/01/2020 9: 42 PM PLUMBING ENGINEER 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
--- OUTSIDE RECORDS SUMMARY | 2024-04-01 12:08 | XMS_ITS | Encounter Summary ---
Author Organization [facility] Address [address] [place] [address] Care Team Providers Care Prop And Effects Designer Name Role Phone Helena Yu Primary Care Provider +1- [phone] Reason for Referral * Cardiology (Routine) - Closed Specialty Diagnoses / Procedures Referred By Contac t Referred To Contact Diagnoses H/O mechanical aortic valve replacement Procedures Transthoracic Echo Complete W Doppler/CF Rachel Mott NP [address] [place] [address] Phone: tel: fax: [facility] Referral ID Status Reason Start Date Expiration Date Visits Re quested Visits Authorized [id number] Closed 12/01/2019 12/30/2020 1 1 Reason for Visit * Reason Comments Follow-up yearly follow up on AVR, bicuspid AV, HLD Encounter Details Date Type Department Care Team (Late st Contact Info) Description 12/01/2019 3:00 PM CDT Office Visit [facility] Cardiology [address] [address] Rachel Mott NP [address] [facility] [address] [address] Bicuspid aortic valve; H/O mechanical aortic valve replacement; manager long term care current use of anticoagulant therapy; Dyslipidemia Social [...] on file Legal Sex Female 8:13 AM MICA PLATE LAYER Gender Identity Female 06/01/2020 9:42 PM MICA PLATE LAYER Sexual Orientation Straight 06/01/2020 9: 42 PM MICA PLATE LAYER 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 [facility] Cardiology [address] [place] [address] Date of Visit: 12/01/2019 Patient ID: Yessy [...] who underwent AVR w/ a 19 mm Pine mechanical valve by Dr. Guthrie in 2008. [...] no bleeding. Cholest 221. 11/10/2017 OV w/ LIGHTER RandellMeng: Here for annual visit. No specific [...] NO CP, SOB, dizziness. 12/01/2019 ov with LIGHTER Kameron Meng: Here for annual visit. Currently [...] and normal heart sounds. No murmur heard. [place] mechanical click, no murmur Pulmonary/Chest: Effort normal [...] every day, Disp: 0, Rfl: 0 ??? bnbzetwcn-eduyjcs-qwnxg acid 400-200-1 mg tablet, Take by mouth, [...] mmHg --> Aortic valve replacement, 19 mm Pine valve 2008: EF 63%, LYNSEY 1.0-1.1 cm2, [...] tablet. - Transthoracic Echo Complete W Doppler/CF snf current use of anticoagulant therapy Dyslipidemia Plan/Recommendations: [...] us sooner with questions or concerns. MELVINA Houhg- Nurse Practitioner with [facility] Cardiology This note is dictated and transcribed using [employer] Simple[employer] Fast [employer] Elegant Tablet [employer] App Direct Software. Hospice Massage Therapist variancesmay occur. Despite proofreading, typographical errors may [...] AM CDT Narrative 12/29/2019 12:49 PM CDT [facility] Cardiology [address], [place] [address] [address], [place] [address] P:[phone] P:[phone] Echocardiographic Report Patient Name: YESSY NIXON : 1955 Study Date: 12/29/2019 8:17:04 AM Gender: F Tech: Location: [place] Ref.Provider: RACHEL MOTT Height(Cm): 157 BSA: 1.63 [...] Site: Exam was interpreted at [facility]. Left Ventricle: Normal left ventricular systolic [...] Procedure Note Giuseppe Bullard MD - 12/29/2019 [facility] Cardiology [address] [facility] [address], [place] [address] [address], [place], [place] [address] P:[phone] P:[phone] Echocardiographic Report Patient Name: YESSY NIXONPatient ID: [id number] : [id number] Date: 12/29/2019 8:17:04 AM Gender: FAccession #: [id number] Tech: Location: [place] Ref.Provider: RACHEL MOTTHeight(Cm): 157 BSA: 1.63Weight(Kg): 62.6 [...] 0.40 - 0.80 ] m/s MV Decel [id number] [ 150 - 200 ] msec PV Peak Vel0.82 [ 0.40 - 0.80 ] m/s TR Peak Vel2.38 [ 0.40 - 0.80 ] m/s TR Peak PG 23mmHg RVSP31.00 mmHg E'0.11 E/E' 6 Findings: Interpretation Site: Exam was interpreted at [facility]. Left Ventricle: Normal left ventricular systolic [...] valve H/O mechanical aortic valve replacement manager long term care current use of anticoagulant therapy Dyslipidemia Other and unspecified hyperlipidemia documented in this encounter Discontinued Medications Medication Sig Discontinue Reason Start Date End Da te warfarin (COUMADIN) 2 mg tablet Take 2 tabs daily except on Thursday. Then take a 5 mg tablet. Reorder 11/11/2019 12/01/2019 documented as of this encounter Care Teams Prop And Effects Designer Relationship Specialty Start Date End Date Helena Yu PA [address] [facility] 500 [place] [address] PCP - General Internal Medicine 09/23/18 07/29/20 documented as of this encounter
--- OUTSIDE RECORDS SUMMARY | 2024-04-01 12:08 | XMS_ITS | Encounter Summary ---
Author Organization [facility] Address [address] [place] [address] Care Team Providers Care Software Test Specialist Name Role Phone Helena Yu Primary Care Provider +1- [phone] Encounter Details Date Type Department Care Team (Latest Contact Info) Description 01/03/[address] 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
--- OUTSIDE RECORDS SUMMARY | 2024-04-01 12:08 | XMS_ITS | Encounter Summary ---
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
--- OUTSIDE RECORDS SUMMARY | 2024-04-01 12:08 | XMS_ITS | Encounter Summary ---
Author Organization [facility] Address [address] [place] [address] Care Team Providers Care Fructose Loader Name Role Phone Helean Yu Primary Care Provider +1- [phone] Encounter Details Date Type Department Care Team (Late st Contact Info) Description 02/13/2020 Telephone [facility] Cardiology [address] [place] [address] Bindu Gaines MD [address] [place] [address] Social History Tobacco Use Types [...] on file Legal Sex Female 8:13 AM STOCK LAYER Gender Identity Female 06/01/2020 9:42 PM STOCK LAYER Sexual Orientation Straight 06/01/2020 9: 42 PM STOCK LAYER 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 Pt verbalized understanding. K LAYER * Telephone Encounter - Jane Mcmullen - 02/13/2020 8:43 AM CST Pt has requested a return call to discuss her labs been drawn on 02-14-2020 Pt has come in contact with someone that has tested positive for covid 19 Pt is quarantine until Feb 24 2020 K LAYER documented in this encounter Plan of Treatment Not on file documented as of this encounter Visit Diagnoses Not on filedocumented in this encounter Care Teams Fructose Loader Relationship Specialty Start Date End Date Helena Yu PA [address] [address] PCP - General Internal Medicine 09/23/18 07/29/20 documented as of this encounter
--- OUTSIDE RECORDS SUMMARY | 2024-04-01 12:08 | XMS_ITS | Encounter Summary ---
Author Organization [facility] Address [address] [place] [address] Care Team Providers Care Laundry Aid Name Role Phone Helena Yu Primary Care Provider +1- [phone] Encounter Details Date Type Department Care Team (Late st Contact Info) Description 02/22/[address] 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 ----- Message from Yessy Donaldson sent at 02/22/2020 10:06 AM BAG MAKER ----- Regarding: Prescription Question Contact: Effective immediately, any prescriptions for myself need to be sent to [facility] pharmacy at [address] [place] [address] in [place], [place]; as we have changed pharmacies. [address] Thanks. MAKER MAKER documented in this encounter Plan of Treatment Not on file documented as of this encounter Visit Diagnoses Not on filedocumented in this encounter Care Teams Laundry Aid Relationship Specialty Start Date End Date Helena Yu PA [address] [place] [address] PCP - General Internal Medicine 09/23/18 07/29/20 documented as of this encounter
--- OUTSIDE RECORDS SUMMARY | 2024-04-01 12:09 | XMS_ITS | Encounter Summary ---
Author Organization [facility] Healthcare Address [address] [place] [address] Care Team Providers Care Rn Admit Name Role Phone Helena Yu Primary Care Provider +1- [phone] Reason for Visit * Reason Onset Date Comments Epistaxis (Nose Bleed) 05/28/2019 Encounter Details Date Type Department Care Team (Late st Contact Info) Description 05/28/2019 Telephone [facility] Cardiac Catheterization Lab [address] [place] [address] Bindu Gaines MD [address] [place] [id number] Epistaxis (Nose Bleed) Social History Tobacco Use [...] Legal Sex Female 8:13 AM HOME ENERGY AUDITOR Gender Identity Female 06/01/2020 9:42 PM HOME ENERGY AUDITOR Sexual Orientation Straight 06/01/2020 9: 42 PM HOME ENERGY AUDITOR 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 ENERGY AUDITOR * Telephone Encounter - Bindu Gaines MD - 05/28/2019 7:59 PM HOME ENERGY AUDITOR Patient on warfarin for aortic valve replacement went to ER for epistaxis, had nasal packing. INR was 4.6. No new medications. We decided to a hold warfarin today, take 2 mg Thursday, and start with 4 mg daily on Thursday, obtain an INR on Thursday. ENERGY AUDITOR documented in this encounter Plan of Treatment Not on file documented as of this encounter Visit Diagnoses Not on filedocumented in this encounter Care Teams Rn Admit Relationship Specialty Start Date End Date Helena Yu PA [address] [facility] [address] [place] [address] PCP - General Internal Medicine 09/23/18 07/29/20 documented as of this encounter
--- OUTSIDE RECORDS SUMMARY | 2024-04-01 12:09 | XMS_ITS | Encounter Summary ---
Author Organization [facility] Medical Group Address [address] [place] [address] Care Team Providers Care Build Master Name Role Phone Helena Yu Primary Care Provider +1- [phone] Encounter Details Date Type Department Care Team (Late st Contact Info) Description 04/25/2019 Orders Only [facility] Medical [facility] Cardiology [address], [place] [address] Bindu Gaines MD [address] [address] Social History Tobacco Use Types Packs/Day Years Used Date Smoking Tobacco: Never Smokeless Tobacco: Never Alcohol Use Standard Drinks/Week Comments Yes 1 (1 standard drink = 0.6 oz pur e alcohol) PHQ-2 Answer Date Recorded PHQ-2 Score 1 12/03/2018 Comments Unknown Sex and Gender Information Value Date Recorded Sex Assigned at Not on file Legal Sex Female 8:13 AM HADOOP DEVELOPER Gender Identity Female 06/01/2020 9:42 PM HADOOP DEVELOPER Sexual Orientation Straight 06/01/2020 9: 42 PM HADOOP DEVELOPER 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 0.9-1.1 Moderate-intensity Warfarin Therapy 2.0-3.0 Higher-intensity Warfarin Therapy ?? 3.0-4.0 PT 22.1(H) 9.0 - 11.5 sec [facility] [place] Comment: For more information on this test, go to: http://education.eTobb/faq/MXL225 04/25/2019 8:23 AM HADOOP DEVELOPER 04/25/2019 8:24 AM HADOOP DEVELOPER Narrative Resulting Agency Comment Performing Organization Information: ?Site ID: ?Name: [facility] ?Address: [facility] [place] [address] ?Director: Adilson Hameed us Bindu Gaines MD LAB BLOOD ORDERABLES Final Result [facility] [place] documented in this encounter Visit Diagnoses Not on filedocumented in this encounter Care Teams Build Master Relationship Specialty Start Date End Date Helena Yu PA [address] [place] [address] PCP - General Internal Medicine 09/23/18 07/29/20 documented as of this encounter
--- OUTSIDE RECORDS SUMMARY | 2024-04-01 12:09 | XMS_ITS | Encounter Summary ---
Author Organization [facility] Medical Group Address [address] [place] [address] Care Team Providers Care Power Generating Plant Operator Name Role Phone Helena Yu Primary Care Provider +1- [phone] Encounter Details Date Type Department Care Team (Late st Contact Info) Description 07/18/2019 Orders Only [facility] Medical [facility] Cardiology [address], [place] [address] Bindu Gaines MD [address] [address] Social History Tobacco Use Types Packs/Day Years Used Date Smoking Tobacco: Never Smokeless Tobacco: Never Alcohol Use Standard Drinks/Week Comments Yes 1 (1 standard drink = 0.6 oz pur e alcohol) PHQ-2 Answer Date Recorded PHQ-2 Score 1 12/03/2018 Comments Unknown Sex and Gender Information Value Date Recorded Sex Assigned at Not on file Legal Sex Female 8:13 AM SECTION LABORER Gender Identity Female 06/01/2020 9:42 PM SECTION LABORER Sexual Orientation Straight 06/01/2020 9: 42 PM SECTION LABORER 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 Not on file [...] more information on this test, go to: http://education.Allvoices/faq/RSW983 07/18/2019 6:47 AM CDT 07/18/2019 6:48 AM CDT Narrative Resulting Agency Comment Performing Organization Information: ?Site ID: ?Name: [facility] ?Address: [address] [facility] [place] [address] ?Director: Adilson Hameed us Bindu Gaines MD LAB BLOOD ORDERABLES Final Result [facility] [place], [place] documented in this encounter Visit Diagnoses Not on filedocumented in this encounter Care Teams Power Generating Plant Operator Relationship Specialty Start Date End Date Helena Yu PA [address] [facility] [address] [place] [address] PCP - General Internal Medicine 09/23/18 07/29/20 documented as of this encounter
--- OUTSIDE RECORDS SUMMARY | 2024-04-01 12:09 | XMS_ITS | Encounter Summary ---
Author Organization [facility] Care Team Providers Care Employee Relations Director Name Role Phone Helena Yu Primary Care Provider +1- [phone] Encounter Details Date Type Department Care Team [...] file Legal Sex Female 8:13 AM DENTAL SCHEDULING COORDINATOR Gender Identity Female 06/01/2020 9:42 PM DENTAL SCHEDULING COORDINATOR Sexual Orientation Straight 06/01/2020 9: 42 PM DENTAL SCHEDULING COORDINATOR Occupation Industry Job Start Date Job End Date [employer] Not on file Not on file Not on file documented as of this encounter Plan of Treatment Not on file documented as of this encounter Visit Diagnoses Not on filedocumented in this encounter Care Teams Employee Relations Director Relationship Specialty Start Date End Date Helena Yu PA [address] [place] [address] PCP - General Internal Medicine 09/23/18 07/29/20 documented as of this encounter
--- OUTSIDE RECORDS SUMMARY | 2024-04-01 12:09 | XMS_ITS | Encounter Summary ---
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 current 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 therapy Social History [...] on file Legal Sex Female 8:13 AM CLOTHES SEPARATOR Gender Identity Female 06/01/2020 9:42 PM CLOTHES SEPARATOR Sexual Orientation Straight 06/01/2020 9: 42 PM CLOTHES SEPARATOR 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
--- OUTSIDE RECORDS SUMMARY | 2024-04-01 12:09 | XMS_ITS | Encounter Summary ---
Author Organization [facility] Medical Group Address [address] [place] [address] Care Team Providers Care Inclinometer Tester Name Role Phone Helena Yu Primary Care Provider +1- [phone] Encounter Details Date Type Department Care Team (Late st Contact Info) Description 06/11/2019 Orders Only [facility] Medical [facility] Cardiology [address] [facility] [address], [place] [address] Bindu Gaines MD [address] [address] Social History Tobacco Use Types Packs/Day Years Used Date Smoking Tobacco: Never Smokeless Tobacco: Never Alcohol Use Standard Drinks/Week Comments Yes 1 (1 standard drink = 0.6 oz pur e alcohol) PHQ-2 Answer Date Recorded PHQ-2 Score 1 12/03/2018 Comments Unknown Sex and Gender Information Value Date Recorded Sex Assigned at Not on file Legal Sex Female 8:13 AM MICROARRAY SPECIALIST Gender Identity Female 06/01/2020 9:42 PM MICROARRAY SPECIALIST Sexual Orientation Straight 06/01/2020 9: 42 PM MICROARRAY SPECIALIST 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 0.9-1.1 Moderate-intensity Warfarin Therapy 2.0-3.0 Higher-intensity Warfarin Therapy ?? 3.0-4.0 PT 28.0(H) 9.0 - 11.5 sec [facility] [place] Comment: For more information on this test, go to: http://education.Uolala.com/faq/ZFM651 06/11/2019 8:17 AM MICROARRAY SPECIALIST 06/11/2019 8:18 AM MICROARRAY SPECIALIST Narrative Resulting Agency Comment Performing Organization Information: ?Site ID: [place] ?Name: [facility] ?Address: [address] [place] [address] [place] [address] ?Director: Sal Jason D.O., MPH us Bindu Gaines MD LAB BLOOD ORDERABLES Final Result [facility] [place] documented in this encounter Visit Diagnoses Not on filedocumented in this encounter Care Teams Inclinometer Tester Relationship Specialty Start Date End Date Helena Yu PA [address] [facility] [address] [place] [address] PCP - General Internal Medicine 09/23/18 07/29/20 documented as of this encounter
--- OUTSIDE RECORDS SUMMARY | 2024-04-01 12:09 | XMS_ITS | Encounter Summary ---
Author Organization [facility] Medical Group Address [address] [place] [address] Care Team Providers Care System Specialist Name Role Phone Helena Yu Primary Care Provider +1- [phone] Encounter Details Date Type Department Care Team (Late st Contact Info) Description 05/02/2019 Orders Only [facility] Medical [facility] Cardiology [address], [place] [address] Bindu Gaines MD [address] [address] Social History Tobacco Use Types Packs/Day Years Used Date Smoking Tobacco: Never Smokeless Tobacco: Never Alcohol Use Standard Drinks/Week Comments Yes 1 (1 standard drink = 0.6 oz pur e alcohol) PHQ-2 Answer Date Recorded PHQ-2 Score 1 12/03/2018 Comments Unknown Sex and Gender Information Value Date Recorded Sex Assigned at Not on file Legal Sex Female 8:13 AM DAY PORTER Gender Identity Female 06/01/2020 9:42 PM DAY PORTER Sexual Orientation Straight 06/01/2020 9: 42 PM DAY PORTER 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 0.9-1.1 Moderate-intensity Warfarin Therapy 2.0-3.0 Higher-intensity Warfarin Therapy ?? 3.0-4.0 PT 30.7(H) 9.0 - 11.5 sec [facility] [place] Comment: For more information on this test, go to: http://education.HexaTech/faq/JGT176 05/02/2019 9:39 AM DAY PORTER 05/02/2019 9:39 AM DAY PORTER Narrative Resulting Agency Comment Performing Organization Information: ?Site ID: ?Name: [facility] ?Address: [facility] [place] [address] ?Director: Adilson Hameed us Bindu Gaines MD LAB BLOOD ORDERABLES Final Result [facility] [place]ell[place] documented in this encounter Visit Diagnoses Not on filedocumented in this encounter Care Teams System Specialist Relationship Specialty Start Date End Date Helena Yu PA [address] [place] [address] PCP - General Internal Medicine 09/23/18 07/29/20 documented as of this encounter
--- OUTSIDE RECORDS SUMMARY | 2024-04-01 12:09 | XMS_ITS | Encounter Summary ---
Author Organization [facility] Medical Group Address [address] [place] [address] Care Team Providers Care Quality Assurance Assessor Name Role Phone Helena Yu Primary Care Provider +1- [phone] Encounter Details Date Type Department Care Team (Latest Contact Info) Description 04/25/2019 Anticoagulation Visit [facility] Medical [facility] Cardiology [address] [facility] [address] [address] Bindu Gaines MD [address] [address] H/O mechanical aortic valve replacement; FPC [...] on file Legal Sex Female 8:13 AM STEVEDORING SUPERINTENDENT Gender Identity Female 06/01/2020 9:42 PM STEVEDORING SUPERINTENDENT Sexual Orientation Straight 06/01/2020 9: 42 PM STEVEDORING SUPERINTENDENT 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
--- OUTSIDE RECORDS SUMMARY | 2024-04-01 12:09 | XMS_ITS | Encounter Summary ---
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 current use of anticoagulant therapy Social [...] file Legal Sex Female 8:13 AM TYPEWRITER TESTER Gender Identity Female 06/01/2020 9:42 PM TYPEWRITER TESTER Sexual Orientation Straight 06/01/2020 9: 42 PM TYPEWRITER TESTER 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
--- OUTSIDE RECORDS SUMMARY | 2024-04-01 12:09 | XMS_ITS | Encounter Summary ---
Author Organization [facility] Medical Group Address [address] [place] [address] Care Team Providers Care Mining Technician Name Role Phone Helena Yu Primary Care Provider +1- [phone] Encounter Details Date Type Department Care Team (Latest Contact Info) Description 06/29/2019 Anticoagulation Visit [facility] Medical Group Cardiology [address] [place] [address] Juany Mccabe RN H/O mechanical aortic valve replacement; oil [...] file Legal Sex Female 8:13 AM SENIOR ORACLE APPLICATIONS DEVELOPER Gender Identity Female 06/01/2020 9:42 PM SENIOR ORACLE APPLICATIONS DEVELOPER Sexual Orientation Straight 06/01/2020 9: 42 PM SENIOR ORACLE APPLICATIONS DEVELOPER 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
--- OUTSIDE RECORDS SUMMARY | 2024-04-01 12:09 | XMS_ITS | Encounter Summary ---
Author Organization [facility] Medical Group Address [address] [place] [address] Care Team Providers Care Kitchen Supervisor Name Role Phone Helena Yu Primary Care Provider +1- [phone] Encounter Details Date Type Department Care Team (Late st Contact Info) Description 05/14/[address] [facility] Medical [facility] Cardiology [address] [facility] [address] [address] Bindu Gaines MD [address] [address] Social History Tobacco Use Types Packs/Day Years Used Date Smoking Tobacco: Never Smokeless Tobacco: Never Alcohol Use Standard Drinks/Week Comments Yes 1 (1 standard drink = 0.6 oz pur e alcohol) PHQ-2 Answer Date Recorded PHQ-2 Score 1 12/03/2018 Comments Unknown Sex and Gender Information Value Date Recorded Sex Assigned at Not on file Legal Sex Female 8:13 AM CABLE PULLER Gender Identity Female 06/01/2020 9:42 PM CABLE PULLER Sexual Orientation Straight 06/01/2020 9: 42 PM CABLE PULLER 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 0.9-1.1 Moderate-intensity Warfarin Therapy 2.0-3.0 Higher-intensity Warfarin Therapy ?? 3.0-4.0 PT 33.5(H) 9.0 - 11.5 sec [facility] [place] Comment: For more information on this test, go to: http://education.m2fx/faq/XOT010 05/14/2019 12:2 5 PM CABLE PULLER 05/14/2019 12:25 PM CABLE PULLER Narrative Resulting Agency Comment Performing Organization Information: ?Site ID: [place] ?Name: [facility] ?Address: [address] [place] [address] [place] [address] ?Director: Sal Jason D.O., MPH us Bindu Gaines MD LAB BLOOD ORDERABLES Final Result [facility] [place] documented in this encounter Visit Diagnoses Not on filedocumented in this encounter Care Teams Kitchen Supervisor Relationship Specialty Start Date End Date Helena Yu PA [address] [facility] 500 [place] [address] PCP - General Internal Medicine 09/23/18 07/29/20 documented as of this encounter
--- OUTSIDE RECORDS SUMMARY | 2024-04-01 12:09 | XMS_ITS | Encounter Summary ---
Author Organization [facility] Medical Group Address [address] [place] [address] Care Team Providers Care Sculpture Instructor Name Role Phone Helena Yu Primary Care Provider +1- [phone] Encounter Details Date Type Department Care Team (Latest Contact Info) Description 05/02/[address] 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
--- OUTSIDE RECORDS SUMMARY | 2024-04-01 12:09 | XMS_ITS | Encounter Summary ---
Author Organization [facility] Medical Group Address [address] [facility] [address] [place] [address] Care Team Providers Care Housekeeping Aide Name Role Phone Helena Yu Primary Care Provider +1- [phone] Encounter Details Date Type Department Care Team (Late st Contact Info) Description 06/29/2019 Telephone [facility] Medical Group Cardiology [address] [place] [address] Bindu Gaines MD [address] [place] [address] Social History Tobacco Use Types Packs/Day Years Used Date Smoking Tobacco: Never Smokeless Tobacco: Never Alcohol Use Standard Drinks/Week Comments Yes 1 (1 standard drink = 0.6 oz pur e alcohol) PHQ-2 Answer Date Recorded PHQ-2 Score 1 12/03/2018 Comments Unknown Sex and Gender Information Value Date Recorded Sex Assigned at Not on file Legal Sex Female 8:13 AM LAPEL STITCHER Gender Identity Female 06/01/2020 9:42 PM LAPEL STITCHER Sexual Orientation Straight 06/01/2020 9: 42 PM LAPEL STITCHER 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 States that she is in a tough spot with insurance right now and is getting INR's drawn at a place called [facility]. She will be calling results into us. INR today 2.4. See coumadinflow sheet. * Telephone Encounter - Jane Mcmullen - 06/29/2019 11:54 AM CDT Pt called to give the results of her INR. cb [phone] documented in this encounter Plan of Treatment Not on file documented as of this encounter Visit Diagnoses Not on filedocumented in this encounter Care Teams Housekeeping Aide Relationship Specialty Start Date End Date Helena Yu PA [address] [facility] [address] [place] [address] PCP - General Internal Medicine 09/23/18 07/29/20 documented as of this encounter
--- OUTSIDE RECORDS SUMMARY | 2024-04-01 12:09 | XMS_ITS | Encounter Summary ---
Author Organization [facility] Address [address] [place] [address] Care Team Providers Care Oyster Shucker Name Role Phone Helena Yu Primary Care Provider +1- [phone] Encounter Details Date Type Department Care Team (Late st Contact Info) Description 05/31/2019 Orders Only [facility] Medical [facility] Cardiology [address], [place] [address] Bindu Gaines MD [address] [address] Social History Tobacco Use Types Packs/Day Years Used Date Smoking Tobacco: Never Smokeless Tobacco: Never Alcohol Use Standard Drinks/Week Comments Yes 1 (1 standard drink = 0.6 oz pur e alcohol) PHQ-2 Answer Date Recorded PHQ-2 Score 1 12/03/2018 Comments Unknown Sex and Gender Information Value Date Recorded Sex Assigned at Not on file Legal Sex Female 8:13 AM VISUAL EDUCATION TEACHER Gender Identity Female 06/01/2020 9:42 PM VISUAL EDUCATION TEACHER Sexual Orientation Straight 06/01/2020 9: 42 PM VISUAL EDUCATION TEACHER 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 0.9-1.1 Moderate-intensity Warfarin Therapy 2.0-3.0 Higher-intensity Warfarin Therapy ?? 3.0-4.0 PT 21.4(H) 9.0 - 11.5 sec [facility] Comment: For more information on this test, go to: http://education.Radial Network/faq/VON158 05/31/2019 6:46 AM VISUAL EDUCATION TEACHER 05/31/2019 6:48 AM VISUAL EDUCATION TEACHER Narrative Resulting Agency Comment Performing Organization Information: ?Site ID: ?Name[facility] ?Address: [facility] [place] [address] ?Director: Adilson Hameed us Bindu Gaines MD LAB BLOOD ORDERABLES Final Result [facility] [place] documented in this encounter Visit Diagnoses Not on filedocumented in this encounter Care Teams Oyster Shucker Relationship Specialty Start Date End Date Helena Yu PA [address] [place] [address] PCP - General Internal Medicine 09/23/18 07/29/20 documented as of this encounter
--- OUTSIDE RECORDS SUMMARY | 2024-04-01 12:09 | XMS_ITS | Encounter Summary ---
Author Organization [facility] Address [address] [place] [address] Care Team Providers Care Cylinder Sander Operator Name Role Phone Helena Yu Primary Care Provider +1- [phone] Encounter Details Date Type Department Care Team (Latest Contact Info) Description 07/18/[address] 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
--- OUTSIDE RECORDS SUMMARY | 2024-04-01 12:09 | XMS_ITS | Encounter Summary ---
Author Organization [facility] Address [address] [place] [address] Care Team Providers Care Straight Edger Name Role Phone Helena Yu Primary Care Provider +1- [phone] Encounter Details Date Type Department Care Team (Latest Contact Info) Description 05/31/2019 Anticoagulation Visit [facility] Cardiology [address] [place] [address] Juany Mccabe RN H/O mechanical aortic valve replacement; superintendent [...] on file Legal Sex Female 8:13 AM CAMP DINING ROOM ATTENDANT Gender Identity Female 06/01/2020 9:42 PM CAMP DINING ROOM ATTENDANT Sexual Orientation Straight 06/01/2020 9: 42 PM CAMP DINING ROOM ATTENDANT 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
--- OUTSIDE RECORDS SUMMARY | 2024-04-01 12:09 | XMS_ITS | Encounter Summary ---
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 current use of anticoagulant therapy Social [...] on file Legal Sex Female 8:13 AM TUNNEL DRIER OPERATOR Gender Identity Female 06/01/2020 9:42 PM TUNNEL DRIER OPERATOR Sexual Orientation Straight 06/01/2020 9: 42 PM TUNNEL DRIER OPERATOR 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
--- OUTSIDE RECORDS SUMMARY | 2024-04-01 12:09 | XMS_ITS | Encounter Summary ---
Author Organization [facility] Address [address] [place] [address] Care Team Providers Care Fruit Grading Supervisor Name Role Phone Helena Yu Primary Care Provider +1- [phone] Encounter Details Date Type Department Care Team (Latest Contact Info) Description 10/10/2019 Anticoagulation Visit [facility] Cardiology [address] [place] [address] Huma Trevizo RN H/O mechanical aortic valve replacement; intermediate manager current use of anticoagulant therapy Social [...] on file Legal Sex Female 8:13 AM ASSET PROTECTION PROFESSIONAL Gender Identity Female 06/01/2020 9:42 PM ASSET PROTECTION PROFESSIONAL Sexual Orientation Straight 06/01/2020 9: 42 PM ASSET PROTECTION PROFESSIONAL Occupation Industry Job Start Date Job End Date [employer] Not on file Not on file Not on file documented as of this encounter Plan of Treatment Not on file documented as of this encounter Visit Diagnoses Diagnosis H/O mechanical aortic valve replacement intermediate manager current 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 Care Teams Fruit Grading Supervisor Relationship Specialty Start Date End Date Helena Yu PA [address] [place] [address] PCP - General Internal Medicine 09/23/18 07/29/20 documented as of this encounter
--- OUTSIDE RECORDS SUMMARY | 2024-04-01 12:09 | XMS_ITS | Encounter Summary ---
Author Organization [facility] Address [address] [address] Care Team Providers Care Pad Extraction Tender Name Role Phone Helena Yu Primary Care Provider +1- [phone] Reason for Visit * Reason Onset Date Comments inr standing order for [facility] faxed 07/28/2019 inr standing order for [facility] faxed Encounter Details Date Type Department Care Team (Late st Contact Info) Description 07/28/2019 Telephone [facility] Cardiology [address] [address] Bennett Saavedra RN inr standing [...] on file Legal Sex Female 8:13 AM POMOLOGIST Gender Identity Female 06/01/2020 9:42 PM POMOLOGIST Sexual Orientation Straight 06/01/2020 9: 42 PM POMOLOGIST 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 file Not on file Not on file documented as of this encounter Miscellaneous Notes * Telephone Encounter - Bennett Saavedra RN - 07/28/2019 10:39 AM CDT inr standing order for [facility] faxed to [facility] documented in this encounter Plan of Treatment Scheduled Orders Name Type Priority Associated Diagnoses Orde r Schedule Protime-INR Lab Routine residential current use of anticoagulant therapy H/O mechanical aortic valve replacement Bicuspid aortic valve weekly for 52 Occurrences starting 07/28/2019 until 07/27/2020, 11 completed documented as of this encounter Procedures Procedure Name Priority Date/Time Associated Diagnosis Comments PROTIME-INR Routine 07/03/2020 8:04 AM CDT residential current use of anticoagulant therapy H/O mechanical aortic valve replacement Bicuspid aortic valve PROTIME-INR Routine 06/05/2020 8:45 AM POMOLOGIST residential current use of anticoagulant therapy H/O mechanical aortic valve replacement Bicuspid aortic valve PROTIME-INR Routine 05/08/2020 7:29 AM POMOLOGIST 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 use of anticoagulant therapy H/O mechanical aortic valve replacement Bicuspid aortic valve PROTIME-INR Routine 02/27/2020 8:04 AM POMOLOGIST residential current use of anticoagulant therapy H/O mechanical aortic valve replacement Bicuspid aortic valve PROTIME-INR Routine 01/31/2020 6:04 AM CDT 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 use of anticoagulant therapy H/O mechanical aortic valve replacement Bicuspid aortic valve PROTIME-INR Routine 01/03/2020 7:10 AM CDT residential current use of anticoagulant therapy H/O mechanical aortic valve replacement Bicuspid aortic valve PROTIME-INR Routine 12/05/2019 7:00 AM CDT residential current use of anticoagulant therapy H/O mechanical aortic valve replacement Bicuspid aortic valve PROTIME-INR Routine 11/07/2019 2:08 PM CDT 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 use of anticoagulant therapy H/O mechanical aortic valve replacement Bicuspid aortic valve PROTIME-INR Routine 10/10/2019 7:53 AM CDT 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 use of anticoagulant therapy H/O mechanical aortic valve replacement Bicuspid aortic valve PROTIME-INR Routine 09/12/2019 6:54 AM CDT 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 use of anticoagulant therapy H/O mechanical aortic valve replacement Bicuspid aortic valve PROTIME-INR Routine 08/15/2019 8:27 AM CDT 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 use of anticoagulant therapy H/O mechanical aortic valve replacement Bicuspid aortic valve documented in this encounter Results * (ABNORMAL) Protime-INR (07/03/2020 8:04 AM CDT) INR 3.5(H) [facility] Comment: Reference Range ? 0.9-1.1 Moderate-intensity Warfarin Therapy 2.0-3.0 Higher-intensity Warfarin Therapy ?? 3.0-4.0 PT 32.9(H) 9.0 - 11.5 sec [facility] Comment: For additional information, please refer to http://education.MedPro/faq/KPA122 (This link is being provided for informational/ educational purposes only.) Blood specimen (specimen) 07/03/2020 8:04 AM CDT 07/03/2020 8:05 AM CDT Bindu Gaines MD LAB BLOOD ORDERABLES Final Result [facility] [address] [place] [address] * (ABNORMAL) Protime-INR (06/05/2020 8:45 AM POMOLOGIST) INR 2.9(H) [facility] Comment: Reference Range ? 0.9-1.1 Moderate-intensity Warfarin Therapy 2.0-3.0 Higher-intensity Warfarin Therapy ?? 3.0-4.0 PT 28.2(H) 9.0 - 11.5 sec [facility] Comment: For additional information, please refer to http://1Energy Systems.MedPro/faq/GIU625 (This link is being provided for informational/ educational purposes only.) Blood specimen (specimen) 06/05/2020 8:45 AM POMOLOGIST 06/05/2020 8:46 AM POMOLOGIST Result [facility] Bindu Gaines MD LAB BLOOD ORDERABLES Final Result Performing Organization Address [facility] Co de Phone Number [facility] [address] [place] [address] * (ABNORMAL) Protime-INR (05/08/2020 7:29 AM POMOLOGIST) INR 3.2(H) [facility] Comment: Reference Range ? 0.9-1.1 Moderate-intensity Warfarin Therapy 2.0-3.0 Higher-intensity Warfarin Therapy ?? 3.0-4.0 PT 30.2(H) 9.0 - 11.5 sec [facility] Comment: For additional information, please refer to http://1Energy Systems.MedPro/faq/ZPQ005 (This link is being provided for informational/ educational purposes only.) Blood specimen (specimen) 05/08/2020 7:29 AM POMOLOGIST 05/08/2020 7:30 AM POMOLOGIST Result [facility] Bindu Gaines MD LAB BLOOD ORDERABLES Final Result Performing Organization Address [facility] de Phone Number [facility] [address] [place] [address] * (ABNORMAL) Protime-INR (02/27/2020 8:04 AM POMOLOGIST) INR 5.5(H) [facility] Comment: Verified by repeat analysis. Reference Range ? 0.9-1.1 Moderate-intensity Warfarin Therapy 2.0-3.0 Higher-intensity Warfarin Therapy ?? 3.0-4.0 PT 50.3(H) 9.0 - 11.5 sec [facility] Comment: Verified by repeat analysis. For additional information, please refer to http://1Energy Systems.MedPro/faq/FCE085 (This link is being provided for informational/ educational purposes only.) Blood specimen (specimen) 02/27/2020 8:04 AM POMOLOGIST 02/27/2020 8:05 AM POMOLOGIST Bindu Gaines MD LAB BLOOD ORDERABLES Final Result Performing Organization Address [facility] de Phone Number [facility] [address] [place] [address] * (ABNORMAL) Protime-INR (01/31/2020 6:04 AM CDT) INR 3.8(H) [facility] Comment: Reference Range ? 0.9-1.1 Moderate-intensity Warfarin Therapy 2.0-3.0 Higher-intensity Warfarin Therapy ?? 3.0-4.0 PT 36.0(H) 9.0 - 11.5 sec [facility] Comment: For additional information, please refer to http://1Energy Systems.MedPro/faq/VGB352 (This link is being provided for informational/ educational purposes only.) Blood specimen (specimen) 01/31/2020 6:04 AM CDT 01/31/2020 6:05 AM CDT Bindu Gaines MD LAB BLOOD ORDERABLES Final Result Performing Organization Address [facility] Co de Phone Number [facility] [address] [place] [address] * (ABNORMAL) Protime-INR (01/03/2020 7:10 AM CDT) INR 3.3(H) [facility] Comment: Reference Range ? 0.9-1.1 Moderate-intensity Warfarin Therapy 2.0-3.0 Higher-intensity Warfarin Therapy ?? 3.0-4.0 PT 33.5(H) 9.0 - 11.5 sec [facility] Comment: For more information on this test, go to: http://1Energy Systems.MedPro/faq/MRE741 Blood specimen (specimen) 01/03/2020 7:10 AM CDT 01/03/2020 7:10 AM CDT Bindu Gaines MD LAB BLOOD ORDERABLES Final Result Performing Organization Address [facility] de Phone Number [facility] [address] [place] [address] * (ABNORMAL) Protime-INR (12/05/2019 7:00 AM CDT) INR 3.5(H) [facility] Comment: Reference Range ? 0.9-1.1 Moderate-intensity Warfarin Therapy 2.0-3.0 Higher-intensity Warfarin Therapy ?? 3.0-4.0 PT 36.6(H) 9.0 - 11.5 sec [facility] Comment: For more information on this test, go to: http://1Energy Systems.MedPro/faq/BYE216 Blood specimen (specimen) 12/05/2019 7:00 AM CDT 12/05/2019 7:00 AM CDT Bindu Gaines MD LAB BLOOD ORDERABLES Final Result Performing Organization Address [facility] de Phone Number [facility] [address] [place] [address] * (ABNORMAL) Protime-INR (11/07/2019 2:08 PM CDT) INR 3.1(H) [facility] Comment: Reference Range ? 0.9-1.1 Moderate-intensity Warfarin Therapy 2.0-3.0 Higher-intensity Warfarin Therapy ?? 3.0-4.0 PT 30.4(H) 9.0 - 11.5 sec [facility] Comment: For more information on this test, go to: http://1Energy Systems.MedPro/faq/IQR421 Blood specimen (specimen) 11/07/2019 2:08 PM CDT 11/07/2019 2:08 PM CDT us Bindu Gaines MD LAB BLOOD ORDERABLES Final Result [facility] [address] [place] [address] * (ABNORMAL) Protime-INR (10/10/2019 7:53 AM CDT) INR 2.7(H) [facility] Comment: Reference Range ? 0.9-1.1 Moderate-intensity Warfarin Therapy 2.0-3.0 Higher-intensity Warfarin Therapy ?? 3.0-4.0 PT 28.2(H) 9.0 - 11.5 sec [facility] Comment: For more information on this test, go to: http://1Energy Systems.MedPro/faq/UZH047 Blood specimen (specimen) 10/10/2019 7:53 AM CDT 10/10/2019 7:54 AM CDT us Bindu Gaines MD LAB BLOOD ORDERABLES Final Result [facility] [address] [place] [address] * (ABNORMAL) Protime-INR (09/12/2019 6:54 AM CDT) INR 3.5(H) [facility] Comment: Reference Range ? 0.9-1.1 Moderate-intensity Warfarin Therapy 2.0-3.0 Higher-intensity Warfarin Therapy ?? 3.0-4.0 PT 36.7(H) 9.0 - 11.5 sec [facility] Comment: For more information on this test, go to: http://1Energy Systems.MedPro/faq/FJB009 Blood specimen (specimen) 09/12/2019 6:54 AM CDT 09/12/2019 6:56 AM CDT Bindu Gaines MD LAB BLOOD ORDERABLES Final Result Performing Organization Address City/[facility] de Phone Number [facility] [address] [place] [address] * (ABNORMAL) Protime-INR (08/15/2019 8:27 AM CDT) INR 2.9(H) [facility] Comment: Reference Range ? 0.9-1.1 Moderate-intensity Warfarin Therapy 2.0-3.0 Higher-intensity Warfarin Therapy ?? 3.0-4.0 PT 30.3(H) 9.0 - 11.5 sec [facility] Comment: For more information on this test, go to: http://1Energy Systems.MedPro/faq/UYZ818 Blood specimen (specimen) 08/15/2019 8:27 AM CDT 08/15/2019 8:28 AM CDT Narrative Resulting Agency Comment Performing Organization Information: ?Site ID: ?Name: [facility] ?Address: [address] [place] [address] ?Director: Adilson Hameed Bindu Gaines MD LAB BLOOD ORDERABLES Final Result [facility] [place] documented in this encounter Visit Diagnoses Diagnosis 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 use of anticoagulant therapy- Primary H/O mechanical aortic valve replacement Bicuspid aortic valve Congenital insufficiency of aortic valve documented in this encounter Care Teams Pad Extraction Tender Relationship Specialty Start Date End Date Helena Yu PA [address] [facility] [address] [place] [address] PCP - General Internal Medicine 09/23/18 07/29/20 documented as of this encounter
--- OUTSIDE RECORDS SUMMARY | 2024-04-01 12:09 | XMS_ITS | Encounter Summary ---
Author Organization [facility] Address [address] [place] [address] Care Team Providers Care Alcohol And Drug Counselor Name Role Phone Helena Yu Primary Care Provider +1- [phone] Encounter Details Date Type Department Care Team (Late st Contact Info) Description 08/11/2019 Telephone [facility] Family Medicine [address] [place] [address] Helena Yu PA [address] [place] [address] Social History Tobacco Use Types Packs/Day Years Used Date Smoking Tobacco: Never Smokeless Tobacco: Never Alcohol Use Standard Drinks/Week Comments Yes 1 (1 standard drink = 0.6 oz pur e alcohol) PHQ-2 Answer Date Recorded PHQ-2 Score 1 12/03/2018 Comments Unknown Sex and Gender Information Value Date Recorded Sex Assigned at Not on file Legal Sex Female 8:13 AM INTERPERSONAL COMMUNICATIONS PROFESSOR Gender Identity Female 06/01/2020 9:42 PM INTERPERSONAL COMMUNICATIONS PROFESSOR Sexual Orientation Straight 06/01/2020 9: 42 PM INTERPERSONAL COMMUNICATIONS PROFESSOR 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 Not on file Not on file documented as of this encounter Miscellaneous Notes * Telephone Encounter - Helena Yu PA - 08/11/2019 4:34 PM CDT Referral Sent to [facility] * Telephone Encounter - Helena Yu PA [...] Souza Sent: 08/09/2019 2:58 PM CDT To: [facility] Subject: Referral Request ----- Message ----- From: Monet Irwin MA Sent: 08/08/2019 3:47 PM CDT To: PETAR Souza Subject: Referral Request See patient message ----- Message ----- From: Yessy Donaldson Sent: 08/08/2019 3:45 PM CDT To: [facility] Subject: Referral Request Wondering if you know of any good Rheumatologists in [place]. Had an issue with sciatica a couple [...] Primary documented in this encounter Care Teams Alcohol And Drug Counselor Relationship Specialty Start Date End Date Helena Yu PA [address] [facility] [place] [address] PCP - General Internal Medicine 09/23/18 07/29/20 documented as of this encounter
--- OUTSIDE RECORDS SUMMARY | 2024-04-01 12:09 | XMS_ITS | Encounter Summary ---
Author Organization [facility] Address [address] [place] [address] Care Team Providers Care Cd Storage And Materials Make Up Helper Name Role Phone Helena Yu Primary Care Provider +1- [phone] Encounter Details Date Type Department Care Team (Latest Contact Info) Description 06/13/2019 Anticoagulation Visit [facility] Medical [facility] Cardiology [address] [facility] [address], [place] [address] Bindu Gaines MD [address] [address] H/O mechanical aortic valve replacement; senior care [...] on file Legal Sex Female 8:13 AM FISHERIES INSPECTOR Gender Identity Female 06/01/2020 9:42 PM FISHERIES INSPECTOR Sexual Orientation Straight 06/01/2020 9: 42 PM FISHERIES INSPECTOR 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
--- OUTSIDE RECORDS SUMMARY | 2024-04-01 12:09 | XMS_ITS | Encounter Summary ---
Author Organization [facility] Address [address] [facility] [address] [place] [address] Care Team Providers Care Chief Data Officer Name Role Phone Helena Yu Primary Care Provider +1- [phone] Encounter Details Date Type Department Care Team (Late st Contact Info) Description 09/19/[address] [facility] Medical [facility] Cardiology [address] [id number] [place] [address] [place] [address] [address] [place] [address] Social History Tobacco Use Types Packs/Day Years Used Date Smoking Tobacco: Never Smokeless Tobacco: Never Alcohol Use Standard Drinks/Week Comments Yes 1 (1 standard drink = 0.6 oz pur e alcohol) PHQ-2 Answer Date Recorded PHQ-2 Score 1 12/03/2018 Comments Unknown Sex and Gender Information Value Date Recorded Sex Assigned at Not on file Legal Sex Female 8:13 AM BOTTLE INSPECTOR Gender Identity Female 06/01/2020 9:42 PM BOTTLE INSPECTOR Sexual Orientation Straight 06/01/2020 9: 42 PM BOTTLE INSPECTOR 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 * Telephone Encounter - Carleen Espinoza - 09/19/2019 12:28 PM CDT Patient would like a refill on her Warfarin from the [facility] in [place]. documented in this encounter Plan of Treatment Not on file documented as of this encounter Visit Diagnoses Not on filedocumented in this encounter Care Teams Chief Data Officer Relationship Specialty Start Date End Date Helena Yu PA [address] [facility] [address] [place] [address] PCP - General Internal Medicine 09/23/18 07/29/20 documented as of this encounter
--- OUTSIDE RECORDS SUMMARY | 2024-04-01 12:09 | XMS_ITS | Encounter Summary ---
Author Organization [facility] Medical Group Address [address] [facility] [address] [place] [address] Care Team Providers Care Content Producer Name Role Phone Helena Yu Primary Care Provider +1- [phone] Encounter Details Date Type Department Care Team (Latest Contact Info) Description 04/15/2019 Anticoagulation Visit [facility] Medical [facility] Cardiology [address] [facility] [address], [place] [address] Bindu Gaines MD [address] [address] H/O mechanical aortic valve replacement; [...] on file Legal Sex Female 8:13 AM ACCOUNTANT BOOKKEEPER Gender Identity Female 06/01/2020 9:42 PM ACCOUNTANT BOOKKEEPER Sexual Orientation Straight 06/01/2020 9: 42 PM ACCOUNTANT BOOKKEEPER 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
--- OUTSIDE RECORDS SUMMARY | 2024-04-01 12:09 | XMS_ITS | Encounter Summary ---
Author Organization [facility] Address [address] [facility] [address] [place] [address] Care Team Providers Care Early Childhood Associate Teacher Name Role Phone Helena Yu Primary Care Provider +1- [phone] Reason for Visit * Reason Comments Follow-up Patient is here for a 6 week medication f/u. 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 Not on file Not on file documented as of this encounter Last Filed Vital Signs Vital Sign Reading Time Taken Comments Blood Pressure 102/66 05/30/2019 8:35 AM MODEL MAKER Pulse 86 05/30/2019 8:35 AM MODEL MAKER Temperature 36.8 ??C (98.3 ??F) 05/30/2019 8:35 AM CS T Respiratory Rate - - Oxygen Saturation 93% 05/30/2019 8:35 AM MODEL MAKER Inhaled Oxygen Concentration - - Weight 61.9 kg (136 lb 8 oz) 05/30/2019 8:35 AM MODEL MAKER Height 156.2 cm (5' 1.5 ) 05/30/2019 8:35 AM MODEL MAKER Body Mass Index 25.37 05/30/2019 8:35 AM MODEL MAKER documented in this encounter Progress Notes * Helena Yu PA - 05/30/2019 8:30 AM CST Images from the original note were not included. Subjective/Objective Patient ID: Yessy Donaldson is a 63 y.o. female. Chief Complaint Follow-up (Patient is here for a 6 week medication f/u.) HPI Pt presents to followup chronic concerns. Was in the ER at [place] for a nose bleed. Was packed at [...] healthy lifestyle to maintain. Helena Yu PA-C L MAKER documented in this encounter Miscellaneous Notes * Assessment & Plan Note - Helena Yu PA - 05/30/2019 1:13 PM MODEL MAKER Associated Problem(s): Moderate episode of recurrent major depressive disorder (HCC) Continue the Cymbalta and monitor closely. Reviewed with patient with her increased daily stressors it may be difficult to see a change with any medication. Pt in agreement L MAKER * Assessment & Plan Note - Berta Bhatia MA - 05/30/2019 8:38 AM MODEL MAKER Associated Problem(s): BMI 25.0-25.9,adult (Resolved 06/12/2020) Weight/BMI is in healthy range. Continue healthy lifestyle to maintain. L MAKER documented in this encounter Plan of [...] 08/27/2020 added in this encounter Care Teams Early Childhood Associate Teacher Relationship Specialty Start Date End Date Helena Yu PA [address] [place] [address] PCP - General Internal Medicine 09/23/18 07/29/20 documented as of this encounter
--- OUTSIDE RECORDS SUMMARY | 2024-04-01 12:10 | XMS_ITS | Encounter Summary ---
Author Organization [facility] Address [address] [facility] [address] [place] [address] Care Team Providers Care Handmade Tile Artist Name Role Phone Helena Yu Primary Care Provider +1- [phone] Encounter Details Date Type Department Care Team (Late st Contact Info) Description 02/21/2019 Orders Only [facility] [address] [facility] [address], [place] [address] Bindu Gaines MD [address] [address] Social History Tobacco Use Types Packs/Day Years Used Date Smoking Tobacco: Never Smokeless Tobacco: Never Alcohol Use Standard Drinks/Week Comments Yes 1 (1 standard drink = 0.6 oz pur e alcohol) PHQ-2 Answer Date Recorded PHQ-2 Score 1 12/03/2018 Comments Unknown Sex and Gender Information Value Date Recorded Sex Assigned at Not on file Legal Sex Female 8:13 AM KNOCK UP ASSEMBLER Gender Identity Female 06/01/2020 9:42 PM KNOCK UP ASSEMBLER Sexual Orientation Straight 06/01/2020 9: 42 PM KNOCK UP ASSEMBLER 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 0.9-1.1 Moderate-intensity Warfarin Therapy 2.0-3.0 Higher-intensity Warfarin Therapy ?? 3.0-4.0 PT 20.4(H) 9.0 - 11.5 sec [facility] Comment: For more information on this test, go to: http://education.[employer]/faq/MQL869 02/21/2019 11:2 9 AM KNOCK UP ASSEMBLER 02/21/2019 11:30 AM KNOCK UP ASSEMBLER Narrative Resulting Agency Comment Performing Organization Information: ?Site ID: ?Name: [facility] ?Address: [facility] [place] [address] ?Director: Adilson Hameed us Bindu Gaines MD LAB BLOOD ORDERABLES Final Result [facility] [place] documented in this encounter Visit Diagnoses Not on filedocumented in this encounter Care Teams Handmade Tile Artist Relationship Specialty Start Date End Date Helena Yu PA [address] [facility] [address] [place] [address] PCP - General Internal Medicine 09/23/18 07/29/20 documented as of this encounter
--- OUTSIDE RECORDS SUMMARY | 2024-04-01 12:10 | XMS_ITS | Encounter Summary ---
Author Organization [facility] Medical [facility] Address [address] [facility] [address] [place] [address] Care Team Providers Care Welder/Fabricator Name Role Phone Unavailable Primary Care Provider Unavailabl e Encounter Details Date Type Department Care Team (Latest Contact Info) Description 08/26/2018 Anticoagulation Visit [facility] [address] [facility] [address] [place] [address] Juany Mccabe RN H/O mechanical aortic valve replacement; [facility] current use of anticoagulant therapy Social History Tobacco Use Types Packs/Day Years Used Date Smoking Tobacco: Never Smokeless Tobacco: Never Alcohol Use Standard Drinks/Week Comments Yes 1 (1 standard drink = 0.6 oz pur e alcohol) Comments Unknown Sex and Gender Information Value Date Recorded Sex Assigned at Not on file Legal Sex Female 8:13 AM MAT SEWER Gender Identity Female 06/01/2020 9:42 PM MAT SEWER Sexual Orientation Straight 06/01/2020 9: 42 PM MAT SEWER documented as of this encounter Plan of Treatment Not on file documented as of this encounter Visit Diagnoses Diagnosis H/O mechanical aortic valve replacement [facility] current 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
--- OUTSIDE RECORDS SUMMARY | 2024-04-01 12:10 | XMS_ITS | Encounter Summary ---
Author Organization [facility] Medical [facility] Address [address] [facility] [address] [place] [address] Care Team Providers Care Manager Room Name Role Phone Helena Yu Primary Care Provider +1- [phone] Encounter Details Date Type Department Care Team (Late st Contact Info) Description 03/03/2019 Orders Only [facility] [address] [facility] [address], [place] [address] Bindu Gaines MD [address] [address] Social History Tobacco Use Types Packs/Day Years Used Date Smoking Tobacco: Never Smokeless Tobacco: Never Alcohol Use Standard Drinks/Week Comments Yes 1 (1 standard drink = 0.6 oz pur e alcohol) PHQ-2 Answer Date Recorded PHQ-2 Score 1 12/03/2018 Comments Unknown Sex and Gender Information Value Date Recorded Sex Assigned at Not on file Legal Sex Female 8:13 AM HAM DOCTOR Gender Identity Female 06/01/2020 9:42 PM HAM DOCTOR Sexual Orientation Straight 06/01/2020 9: 42 PM HAM DOCTOR 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 0.9-1.1 Moderate-intensity Warfarin Therapy 2.0-3.0 Higher-intensity Warfarin Therapy ?? 3.0-4.0 PT 31.3(H) 9.0 - 11.5 sec [facility] Comment: For more information on this test, go to: http://education.Crosswise/faq/QZM582 03/03/2019 6:42 AM HAM DOCTOR 03/03/2019 6:43 AM HAM DOCTOR Narrative Resulting Agency Comment Performing Organization Information: ?Site ID: ?Name: [facility] ?Address: [facility] [place] [address] ?Director: Adilson Hameed us Bindu Gaines MD LAB BLOOD ORDERABLES Final Result [facility] [place], [place] documented in this encounter Visit Diagnoses Not on filedocumented in this encounter Care Teams Manager Room Relationship Specialty Start Date End Date Helena Yu PA [address] [place] [address] PCP - General Internal Medicine 09/23/18 07/29/20 documented as of this encounter
--- OUTSIDE RECORDS SUMMARY | 2024-04-01 12:10 | XMS_ITS | Encounter Summary ---
Author Organization [facility] Medical [facility] Address [address] [facility] [address] [place] [address] Care Team Providers Care Critical Care Registered Nurse Name Role Phone Hleena Yu Primary Care Provider +1- [phone] Encounter Details Date Type Department Care Team (Latest Contact Info) Description 12/17/2018 Anticoagulation Visit [facility] [address] [facility] [address] [place] [address] Bindu Gaines MD [address] [address] H/O mechanical aortic valve replacement; half-way [...] file Legal Sex Female 8:13 AM MANAGER PROCESS IMPROVEMENT Gender Identity Female 06/01/2020 9:42 PM MANAGER PROCESS IMPROVEMENT Sexual Orientation Straight 06/01/2020 9: 42 PM MANAGER PROCESS IMPROVEMENT 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 500 [place] [address] PCP - General Internal Medicine 09/23/18 07/29/20 documented as of this encounter
--- OUTSIDE RECORDS SUMMARY | 2024-04-01 12:10 | XMS_ITS | Encounter Summary ---
Author Organization [facility] Address [address] [facility] [address] [place] [address] Care Team Providers Care Strategic Intelligence Officer Name Role Phone Helena Yu Primary Care Provider +1- [phone] Encounter Details Date Type Department Care Team (Late st Contact Info) Description 02/21/2019 Documentation [facility] Family Medicine [address] [place] [address] Helena Yu PA [address] [address] [place] [address] Social History Tobacco Use Types Packs/Day Years Used Date Smoking Tobacco: Never Smokeless Tobacco: Never Alcohol Use Standard Drinks/Week Comments Yes 1 (1 standard drink = 0.6 oz pur e alcohol) PHQ-2 Answer Date Recorded PHQ-2 Score 1 12/03/2018 Comments Unknown Sex and Gender Information Value Date Recorded Sex Assigned at Not on file Legal Sex Female 8:13 AM MANUSCRIPTS CURATOR Gender Identity Female 06/01/2020 9:42 PM MANUSCRIPTS CURATOR Sexual Orientation Straight 06/01/2020 9: 42 PM MANUSCRIPTS CURATOR 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 Not on file Not on file documented as of this encounter Progress Notes * Swathi Parra - 02/21/2019 2:23 PM CST HM SCRIPTS CURATOR documented in this encounter Plan of Treatment Not on file documented as of this encounter Procedures Procedure Name Priority Date/Time Associated Diagnosis Comments MAMMOGRAPHY Routine 02/21/2019 documented in this encounter Results * MAMMOGRAPHY (02/21/2019) Mammogram Normal Comment:[place] us Historical Provider HEALTH MAINTENANCE Final Result documented in this encounter Visit Diagnoses Not on filedocumented in this encounter Care Teams Strategic Intelligence Officer Relationship Specialty Start Date End Date Helena Yu PA [address] [facility] 500 [place] [address] PCP - General Internal Medicine 09/23/18 07/29/20 documented as of this encounter
--- OUTSIDE RECORDS SUMMARY | 2024-04-01 12:10 | XMS_ITS | Encounter Summary ---
Author Organization [facility] Medical [facility] Address [address] [facility] [address] [place] [address] Care Team Providers Care Planimeter Operator Name Role Phone Helena Yu Primary Care Provider +1- [phone] Reason for Visit * Diagnostic Imaging (Routine) - Closed Specialty Diagnoses / Procedures Referred By Contac t Referred To Contact Diagnoses H/O mechanical aortic valve replacement Procedures Transthoracic Echo Complete W Doppler/CF Lalo Santamaria MD Phone: tel: fax: [facility] Referral ID Status Reason Start Date Expiration Date Visits Re quested Visits Authorized [id number] Closed 11/15/2018 05/26/2020 1 1 Encounter Details Date Type Department Care Team (Latest Contact Info) Description 12/17/2018 2:00 PM CDT Ancillary Procedure [facility] Medical [facility] Cardiology [address] [place] [address] H/O mechanical aortic valve replacement [...] on file Legal Sex Female 8:13 AM TECHNICAL INTERN Gender Identity Female 06/01/2020 9:42 PM TECHNICAL INTERN Sexual Orientation Straight 06/01/2020 9: 42 PM TECHNICAL INTERN 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 Left Ventricle: Normal left ventricular systolic function. [...] - 12/17/2018 [facility] [address] [facility] [address], [place] [address] [address] [facility] [address], [place] [address] P:[phone] P:[phone] Echocardiographic Report Patient Name: YESSY NIXNOPatient ID: [id number] : [id number] Date: 12/17/2018 11:52:04 AM Gender: FAccession #: [id number] Tech: GMLocation: [place] Ref.Provider: Claudia(Cm): 155 BSA: 1.61Weight(Kg): 62.14 Heart [...] 0.40 - 0.80 ] m/s MV Decel [id number] [ 150 - 200 ] msec PV Peak Vel0.87 [ 0.40 - 0.80 ] m/s TR Peak Vel2.43 [ 0.40 - 0.80 ] m/s TR Peak PG 24mmHg RVSP32.00 mmHg E'0.11 E/E' 6 Findings: Interpretation Site: Exam was interpreted at [facility]. Left Ventricle: Normal left ventricular systolic function. [...] replacement documented in this encounter Care Teams Planimeter Operator Relationship Specialty Start Date End Date Helena Yu PA [address] [facility] 500 [place] [address] PCP - General Internal Medicine 09/23/18 07/29/20 documented as of this encounter
--- OUTSIDE RECORDS SUMMARY | 2024-04-01 12:10 | XMS_ITS | Encounter Summary ---
Author Organization [facility] Address [address] [facility] [address] [place] [address] Care Team Providers Care Proofsheet Corrector Name Role Phone Helena Yu Primary Care Provider +1- [phone] Encounter Details Date Type Department Care Team (Latest Contact Info) Description 03/17/2019 Anticoagulation Visit [facility] [address] [facility] [address] [place] [address] Bindu Gaines MD [address] [address] H/O mechanical aortic valve replacement; [facility] [...] on file Legal Sex Female 8:13 AM BULK COOLER INSTALLER Gender Identity Female 06/01/2020 9:42 PM BULK COOLER INSTALLER Sexual Orientation Straight 06/01/2020 9: 42 PM BULK COOLER INSTALLER 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
--- OUTSIDE RECORDS SUMMARY | 2024-04-01 12:10 | XMS_ITS | Encounter Summary ---
Author Organization [facility] Address [address] [facility] [address] [place] [address] Care Team Providers Care Buffet Manager Name Role Phone Helena Yu Primary Care Provider +1- [phone] Encounter Details Date Type Department Care Team (Late st Contact Info) Description 11/17/2018 Orders Only [facility] Family Medicine [address] [place] [address] Helena Yu PA [address] [place] [address] Social History Tobacco Use Types Packs/Day Years Used Date Smoking Tobacco: Never Smokeless Tobacco: Never Alcohol Use Standard Drinks/Week Comments Yes 1 (1 standard drink = 0.6 oz pur e alcohol) Comments Unknown Sex and Gender Information Value Date Recorded Sex Assigned at Not on file Legal Sex Female 8:13 AM DRAWING INSTRUCTOR Gender Identity Female 06/01/2020 9:42 PM DRAWING INSTRUCTOR Sexual Orientation Straight 06/01/2020 9: 42 PM DRAWING INSTRUCTOR 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 Bx [facility] - Comment:INFORMATION NOT PROV IDED SOURCE: [facility] - Comment:Cervix, Endocervix Pap, specimen adequacy [facility] - Comment:SATISFACTORY FOR CHRISTAL LUATION HPV interp [facility] - Comment: Negative for intraepithelial lesion or malignancy. Atrophic pattern; predominantly parabasal cells COMMENTS [facility] - Comment: This Pap test has been evaluated with computer assisted technology. [employer] [facility] Comment: AMW, CT(ASCP) CT screening location: [place] [address] [place] [address] Comment [facility] - Comment: EXPLANATORY NOTE: The Pap [...] High Risk E6/E7 Not Detected NOT DETECTED [facility] Comment: Not Detected High Risk HPV types [...] Performing Organization Information: ?Site ID: AMD ?Name: [facility] ?Address: [address] [place] [address] ?Director: Wisam Villarreal M.D.,PhD ?Site ID: [facility] ?Name: [facility] ?Address: [address] [place] [address] ?Director: Adilson Hameed Helena [facility] CYTOLOGY ORDERABLES nal Result [facility] [place], [place] [facility] [place], [place] documented in this encounter Visit Diagnoses Not on filedocumented in this encounter Care Teams Buffet Manager Relationship Specialty Start Date End Date Helena Yu PA [address] [facility] [address] [place] [address] PCP - General Internal Medicine 09/23/18 07/29/20 documented as of this encounter
--- OUTSIDE RECORDS SUMMARY | 2024-04-01 12:10 | XMS_ITS | Encounter Summary ---
Author Organization [facility] Medical [facility] Address [address] [place] [address] Care Team Providers Care Testing And Regulating Chief Name Role Phone Unavailable Primary Care Provider Unavailabl e Encounter Details Date Type Department Care Team (Latest Contact Info) Description 09/20/2018 Anticoagulation Visit [facility] [address] [facility] [address], [place] [address] Bindu Gaines MD [address] [address] H/O mechanical aortic valve replacement; skilled nursing current use of anticoagulant therapy Social History Tobacco Use Types Packs/Day Years Used Date Smoking Tobacco: Never Smokeless Tobacco: Never Alcohol Use Standard Drinks/Week Comments Yes 1 (1 standard drink = 0.6 oz pur e alcohol) Comments Unknown Sex and Gender Information Value Date Recorded Sex Assigned at Not on file Legal Sex Female 8:13 AM QUALITY SYSTEMS SPECIALIST Gender Identity Female 06/01/2020 9:42 PM QUALITY SYSTEMS SPECIALIST Sexual Orientation Straight 06/01/2020 9: 42 PM QUALITY SYSTEMS SPECIALIST documented as of this encounter Plan of Treatment Not on file documented as of this encounter Visit Diagnoses Diagnosis H/O mechanical aortic valve replacement skilled nursing current 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
--- OUTSIDE RECORDS SUMMARY | 2024-04-01 12:10 | XMS_ITS | Encounter Summary ---
Author Organization [facility] Medical Group Address [address] [facility] [facility] [address] [place] [address] Care Team Providers Care Patient'S Librarian Name Role Phone Unavailable Primary Care Provider Unavailabl e Encounter Details Date Type Department Care Team (Late st Contact Info) Description 07/01/2018 Telephone [facility] [address] [place] [address] Bindu Gaines MD [address] [facility] [address] [place], [place] [id number] Social History Tobacco Use Types Packs/Day Years Used Date Smoking Tobacco: Never Smokeless Tobacco: Never Alcohol Use Standard Drinks/Week Comments Yes 1 (1 standard drink = 0.6 oz pur e alcohol) Comments Unknown Sex and Gender Information Value Date Recorded Sex Assigned at Not on file Legal Sex Female 8:13 AM HELPER MAINTENANCE CLEANING Gender Identity Female 06/01/2020 9:42 PM HELPER MAINTENANCE CLEANING Sexual Orientation Straight 06/01/2020 9: 42 PM HELPER MAINTENANCE CLEANING documented as of this encounter Miscellaneous Notes [...] and her risk of blood clots, CVA, [place] while sub-therapeutic; Pt voiced understanding. * Telephone Encounter - Connie Chambers - 07/01/2018 8:26 AM CDT Pt reports she has missed her warfarin dose twice this week. Missed on Thursday or Thursday night and did not take it last night. [phone] documented in this encounter Plan of Treatment Not on file documented as of this encounter Visit Diagnoses Not on filedocumented in this encounter
--- OUTSIDE RECORDS SUMMARY | 2024-04-01 12:10 | XMS_ITS | Encounter Summary ---
Author Organization [facility] Address [address] [facility] [address] [place] [address] Care Team Providers Care Bundle Wrapper Name Role Phone Unavailable Primary Care Provider Unavailabl e Encounter Details Date Type Department Care Team (Latest Contact Info) Description 07/14/2018 Anticoagulation Visit [facility] [address] [facility] [address] [place] [address] Juany Mccabe RN H/O mechanical aortic valve replacement; retirement current use of anticoagulant therapy Social History Tobacco Use Types Packs/Day Years Used Date Smoking Tobacco: Never Smokeless Tobacco: Never Alcohol Use Standard Drinks/Week Comments Yes 1 (1 standard drink = 0.6 oz pur e alcohol) Comments Unknown Sex and Gender Information Value Date Recorded Sex Assigned at Not on file Legal Sex Female 8:13 AM STEEL ROD BUSTER Gender Identity Female 06/01/2020 9:42 PM STEEL ROD BUSTER Sexual Orientation Straight 06/01/2020 9: 42 PM STEEL ROD BUSTER documented as of this encounter Plan of Treatment Not on file documented as of this encounter Visit Diagnoses Diagnosis H/O mechanical aortic valve replacement retirement current 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
--- OUTSIDE RECORDS SUMMARY | 2024-04-01 12:10 | XMS_ITS | Encounter Summary ---
Author Organization [facility] Address [address] [facility] [address] [place] [address] Care Team Providers Care Hypo Splasher Name Role Phone Helena Yu Primary Care Provider +1- [phone] Encounter Details Date Type Department Care Team (Late st Contact Info) Description 11/18/2018 Telephone [facility] [address] [facility] [address] [facility] [address] [place] [address] Bindu Gaines MD [address] [facility] [address] [place] [address] Social History Tobacco Use Types Packs/Day Years Used Date Smoking Tobacco: Never Smokeless Tobacco: Never Alcohol Use Standard Drinks/Week Comments Yes 1 (1 standard drink = 0.6 oz pur e alcohol) PHQ-2 Answer Date Recorded PHQ-2 Score 1 12/03/2018 Comments Unknown Sex and Gender Information Value Date Recorded Sex Assigned at Not on file Legal Sex Female 8:13 AM SERVICE LOSS CONTROL CONSULTANT Gender Identity Female 06/01/2020 9:42 PM SERVICE LOSS CONTROL CONSULTANT Sexual Orientation Straight 06/01/2020 9: 42 PM SERVICE LOSS CONTROL CONSULTANT 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 [phone] documented in this encounter Plan of Treatment Not on file documented as of this encounter Visit Diagnoses Not on filedocumented in this encounter Care Teams Hypo Splasher Relationship Specialty Start Date End Date Helena Yu PA [address] [facility] [address] [place] [address] PCP - General Internal Medicine 09/23/18 07/29/20 documented as of this encounter
--- OUTSIDE RECORDS SUMMARY | 2024-04-01 12:10 | XMS_ITS | Encounter Summary ---
Author Organization [facility] Address [address] [facility] [address] [place] [address] Care Team Providers Care Sugar Boiler Name Role Phone Helena Yu Primary Care Provider +1- [phone] Encounter Details Date Type Department Care Team (Late st Contact Info) Description 12/20/2018 Telephone [facility] [address] [facility] [address] [place] [address] Bindu Gaines MD [address] [address] Social History Tobacco Use Types Packs/Day Years Used Date Smoking Tobacco: Never Smokeless Tobacco: Never Alcohol Use Standard Drinks/Week Comments Yes 1 (1 standard drink = 0.6 oz pur e alcohol) PHQ-2 Answer Date Recorded PHQ-2 Score 1 12/03/2018 Comments Unknown Sex and Gender Information Value Date Recorded Sex Assigned at Not on file Legal Sex Female 8:13 AM EQUAL OPPORTUNITY SPECIALIST Gender Identity Female 06/01/2020 9:42 PM EQUAL OPPORTUNITY SPECIALIST Sexual Orientation Straight 06/01/2020 9: 42 PM EQUAL OPPORTUNITY SPECIALIST 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
--- OUTSIDE RECORDS SUMMARY | 2024-04-01 12:10 | XMS_ITS | Encounter Summary ---
Author Organization [facility] Medical Group Address [address] [facility] [address] [place] [address] Care Team Providers Care Litigation Support Analyst Name Role Phone Helena Yu Primary Care Provider +1- [phone] Encounter Details Date Type Department Care Team (Latest Contact Info) Description 01/26/2019 Anticoagulation Visit [facility] [address] [facility] [address] [place] [address] Bindu Gaines MD [address] [address] H/O mechanical aortic valve replacement; [...] on file Legal Sex Female 8:13 AM CNC WOOD LATHE OPERATOR Gender Identity Female 06/01/2020 9:42 PM CNC WOOD LATHE OPERATOR Sexual Orientation Straight 06/01/2020 9: 42 PM CNC WOOD LATHE OPERATOR 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
--- OUTSIDE RECORDS SUMMARY | 2024-04-01 12:10 | XMS_ITS | Encounter Summary ---
Author Organization [facility] Medical Group Address [address] [facility] [address] [place] [address] Care Team Providers Care Loader Machine Name Role Phone Helena Yu Primary Care Provider +1- [phone] Encounter Details Date Type Department Care Team (Late st Contact Info) Description 12/06/2018 Orders Only [facility] Health Information Management [address] [place] [address] Scanning, Provider Social History Tobacco Use Types [...] on file Legal Sex Female 8:13 AM RESOURCE DEVELOPMENT DIRECTOR Gender Identity Female 06/01/2020 9:42 PM RESOURCE DEVELOPMENT DIRECTOR Sexual Orientation Straight 06/01/2020 9: 42 PM RESOURCE DEVELOPMENT DIRECTOR 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
--- OUTSIDE RECORDS SUMMARY | 2024-04-01 12:10 | XMS_ITS | Encounter Summary ---
Author Organization [facility] Medical [facility] Address [address] [facility] [address] [place] [address] Care Team Providers Care On Line Csr Name Role Phone Helena Yu Primary Care Provider +1- [phone] Encounter Details Date Type Department Care Team (Late st Contact Info) Description 03/16/2019 Orders Only [facility] [address] [facility] [address] [address] Bindu Gaines MD [address] [address] Social History Tobacco Use Types Packs/Day Years Used Date Smoking Tobacco: Never Smokeless Tobacco: Never Alcohol Use Standard Drinks/Week Comments Yes 1 (1 standard drink = 0.6 oz pur e alcohol) PHQ-2 Answer Date Recorded PHQ-2 Score 1 12/03/2018 Comments Unknown Sex and Gender Information Value Date Recorded Sex Assigned at Not on file Legal Sex Female 8:13 AM AP OPERATOR Gender Identity Female 06/01/2020 9:42 PM AP OPERATOR Sexual Orientation Straight 06/01/2020 9: 42 PM AP OPERATOR 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 0.9-1.1 Moderate-intensity Warfarin Therapy 2.0-3.0 Higher-intensity Warfarin Therapy ?? 3.0-4.0 PT 33.0(H) 9.0 - 11.5 sec [facility] [place] Comment: For more information on this test, go to: http://education.[employer]oChoice/faq/FXF923 03/16/2019 4:19 PM AP OPERATOR 03/16/2019 4:20 PM AP OPERATOR Narrative Resulting Agency Comment Performing Organization Information: ?Site ID: [place] ?Name: [facility] ?Address: [address] [place] [address] [place] [address] ?Director: Sal Jason D.O., MPH us Bindu Gaines MD LAB BLOOD ORDERABLES Final Result [facility] [place] documented in this encounter Visit Diagnoses Not on filedocumented in this encounter Care Teams On Line Csr Relationship Specialty Start Date End Date Helena Yu PA [address] [place] [address] PCP - General Internal Medicine 09/23/18 07/29/20 documented as of this encounter
--- OUTSIDE RECORDS SUMMARY | 2024-04-01 12:10 | XMS_ITS | Encounter Summary ---
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
--- OUTSIDE RECORDS SUMMARY | 2024-04-01 12:10 | XMS_ITS | Encounter Summary ---
Author Organization [facility] Address [address] [facility] [address] [place] [address] Care Team Providers Care Nursing Care Attendant Name Role Phone Helena Yu Primary Care Provider +1- [phone] Reason for Visit * Reason Comments Follow-up Patient is here for a f/u on new medication. 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 Monitor closely ITIES GROUND WORKER * Assessment & Plan Note - Helena Yu PA - 02/20/2019 2:18 PM UTILITIES GROUND WORKER Associated Problem(s): Need for immunization against influenza (Resolved 12/11/2019) Updated in office today ITIES GROUND WORKER * Assessment & Plan Note - Berta [...] 01/11 documented in this encounter Care Teams Nursing Care Attendant Relationship Specialty Start Date End Date Helena Yu PA [address] [facility] 500 [place] [address] PCP - General Internal Medicine 09/23/18 07/29/20 documented as of this encounter
--- OUTSIDE RECORDS SUMMARY | 2024-04-01 12:10 | XMS_ITS | Encounter Summary ---
Author Organization [facility] Address [address] [facility] [address] [place] [address] Care Team Providers Care Treating Plant Supervisor Name Role Phone Helena Yu Primary Care Provider +1- [phone] Encounter Details Date Type Department Care Team (Latest Contact Info) Description 04/05/2019 Anticoagulation Visit [facility] [address] [facility] [address] [address] Bindu Gaines MD [address] [address] H/O mechanical aortic valve replacement; jail current [...] file Legal Sex Female 8:13 AM TIRE INSPECTOR Gender Identity Female 06/01/2020 9:42 PM TIRE INSPECTOR Sexual Orientation Straight 06/01/2020 9: 42 PM TIRE INSPECTOR 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
--- OUTSIDE RECORDS SUMMARY | 2024-04-01 12:10 | XMS_ITS | Encounter Summary ---
Author Organization [facility] Address [address] [facility] [address] [place] [address] Care Team Providers Care Sewage Treatment Plant Operator Name Role Phone Helena Yu Primary Care Provider +1- [phone] Encounter Details Date Type Department Care Team (Late st Contact Info) Description 02/21/2019 Orders Only [facility] Health Information Management [address] [place] [address] Helena Yu PA [address] [place] [address] Social History Tobacco Use Types Packs/Day Years Used Date Smoking Tobacco: Never Smokeless Tobacco: Never Alcohol Use Standard Drinks/Week Comments Yes 1 (1 standard drink = 0.6 oz pur e alcohol) PHQ-2 Answer Date Recorded PHQ-2 Score 1 12/03/2018 Comments Unknown Sex and Gender Information Value Date Recorded Sex Assigned at Not on file Legal Sex Female 8:13 AM GUNNER'S MATE M Gender Identity Female 06/01/2020 9:42 PM GUNNER'S MATE M Sexual Orientation Straight 06/01/2020 9: 42 PM GUNNER'S MATE M 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 500 [place] [address] PCP - General Internal Medicine 09/23/18 07/29/20 documented as of this encounter
--- OUTSIDE RECORDS SUMMARY | 2024-04-01 12:10 | XMS_ITS | Encounter Summary ---
Author Organization [facility] Address [address] [facility] [address] [place] [address] Care Team Providers Care Investigator Internal Revenue Name Role Phone Unavailable Primary Care Provider Unavailabl e Encounter Details Date Type Department Care Team (Latest Contact Info) Description 09/03/2018 Anticoagulation Visit [facility] [address] [facility] [address], [place] [address] Bindu Gaines MD [address] [address] H/O mechanical aortic valve replacement; [facility] current use of anticoagulant therapy Social History Tobacco Use Types Packs/Day Years Used Date Smoking Tobacco: Never Smokeless Tobacco: Never Alcohol Use Standard Drinks/Week Comments Yes 1 (1 standard drink = 0.6 oz pur e alcohol) Comments Unknown Sex and Gender Information Value Date Recorded Sex Assigned at Not on file Legal Sex Female 8:13 AM FINISH SAW OPERATOR Gender Identity Female 06/01/2020 9:42 PM FINISH SAW OPERATOR Sexual Orientation Straight 06/01/2020 9: 42 PM FINISH SAW OPERATOR documented as of this encounter Plan of Treatment Not on file documented as of this encounter Visit Diagnoses Diagnosis H/O mechanical aortic valve replacement FPC current 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
--- OUTSIDE RECORDS SUMMARY | 2024-04-01 12:10 | XMS_ITS | Encounter Summary ---
Author Organization [facility] Address [address] [place] [address] Care Team Providers Care Oracle Bpm Developer Name Role Phone Helena Yu Primary Care Provider +1- [phone] Encounter Details Date Type Department Care Team (Latest Contact Info) Description 02/21/2019 Anticoagulation Visit [facility] [address] [facility] [address] [place] [address] Penny Wilks, BHAVANA H/O mechanical aortic valve replacement; penitentiary current [...] on file Legal Sex Female 8:13 AM ROD TAPE OPERATOR Gender Identity Female 06/01/2020 9:42 PM ROD TAPE OPERATOR Sexual Orientation Straight 06/01/2020 9: 42 PM ROD TAPE OPERATOR 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
--- OUTSIDE RECORDS SUMMARY | 2024-04-01 12:10 | XMS_ITS | Encounter Summary ---
Author Organization [facility] Address [address] [place] [address] Care Team Providers Care Sewage Plant Supervisor Name Role Phone Helena Yu Primary Care Provider +1- [phone] Encounter Details Date Type Department Care Team (Late st Contact Info) Description 03/08/2019 Documentation [facility] Family Medicine [address] [place] [address] Helena Yu PA [address] [place] [address] Social History Tobacco Use Types Packs/Day Years Used Date Smoking Tobacco: Never Smokeless Tobacco: Never Alcohol Use Standard Drinks/Week Comments Yes 1 (1 standard drink = 0.6 oz pur e alcohol) PHQ-2 Answer Date Recorded PHQ-2 Score 1 12/03/2018 Comments Unknown Sex and Gender Information Value Date Recorded Sex Assigned at Not on file Legal Sex Female 8:13 AM PRODUCTION UTILITY WORKER Gender Identity Female 06/01/2020 9:42 PM PRODUCTION UTILITY WORKER Sexual Orientation Straight 06/01/2020 9: 42 PM PRODUCTION UTILITY WORKER 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
--- OUTSIDE RECORDS SUMMARY | 2024-04-01 12:10 | XMS_ITS | Encounter Summary ---
Author Organization [facility] Address [address] [facility] [address] [place] [address] Care Team Providers Care Grant Manager Name Role Phone Helena Yu Primary Care Provider +1- [phone] Encounter Details Date Type Department Care Team (Latest Contact Info) Description 11/04/2018 Anticoagulation Visit [facility] [address] [facility] [address] [place] [address] Bindu Gaines MD [address] [place] [address] H/O mechanical aortic valve replacement; senior [...] on file Legal Sex Female 8:13 AM CASTING ROOM HELPER Gender Identity Female 06/01/2020 9:42 PM CASTING ROOM HELPER Sexual Orientation Straight 06/01/2020 9: 42 PM CASTING ROOM HELPER documented as of this encounter Plan of Treatment Not on file documented as of this encounter Visit Diagnoses Diagnosis H/O mechanical aortic valve replacement senior care current 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 Care Teams Grant Manager Relationship Specialty Start Date End Date Helena Yu PA [address] [place] [address] PCP - General Internal Medicine 09/23/18 07/29/20 documented as of this encounter
--- OUTSIDE RECORDS SUMMARY | 2024-04-01 12:10 | XMS_ITS | Encounter Summary ---
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
--- OUTSIDE RECORDS SUMMARY | 2024-04-01 12:10 | XMS_ITS | Encounter Summary ---
Author Organization [facility] Facility Care Team Providers Care Distribution Systems Superintendent Name Role Phone Helena Yu Primary Care Provider +1- [phone] Encounter Details Date Type Department Care Team [...] on file Legal Sex Female 8:13 AM SOFA COVER INSPECTOR Gender Identity Female 06/01/2020 9:42 PM SOFA COVER INSPECTOR Sexual Orientation Straight 06/01/2020 9: 42 PM SOFA COVER INSPECTOR documented as of this encounter Plan of Treatment Not on file documented as of this encounter Visit Diagnoses Not on filedocumented in this encounter Care Teams Distribution Systems Superintendent Relationship Specialty Start Date End Date Helena Yu PA [address] [facility] [address] [place] [address] PCP - General Internal Medicine 09/23/18 07/29/20 documented as of this encounter
--- OUTSIDE RECORDS SUMMARY | 2024-04-01 12:10 | XMS_ITS | Encounter Summary ---
Author Organization [facility] Address [address] [place] [address] Care Team Providers Care Publication Specialist Name Role Phone Helena Yu Primary Care Provider +1- [phone] Encounter Details Date Type Department Care Team (Latest Contact Info) Description 10/08/2018 Anticoagulation Visit [facility] [address] [facility] [address] [place] [address] Bindu Gaines MD [address] [place] [address] H/O mechanical aortic valve replacement; [...] on file Legal Sex Female 8:13 AM DAIRY QUALITY ASSURANCE OFFICER Gender Identity Female 06/01/2020 9:42 PM DAIRY QUALITY ASSURANCE OFFICER Sexual Orientation Straight 06/01/2020 9: 42 PM DAIRY QUALITY ASSURANCE OFFICER documented as of this encounter Plan of Treatment Not on file documented as of this encounter Visit Diagnoses Diagnosis H/O mechanical aortic valve replacement half-way current 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 Care Teams Publication Specialist Relationship Specialty Start Date End Date Helena Yu PA [address] [place] [address] PCP - General Internal Medicine 09/23/18 07/29/20 documented as of this encounter
--- OUTSIDE RECORDS SUMMARY | 2024-04-01 12:10 | XMS_ITS | Encounter Summary ---
Author Organization [facility] Address [address] [facility] [address] [facility] [address] [place] [address] Care Team Providers Care Store Planner Name Role Phone Helena Yu Primary Care Provider +1- [phone] Encounter Details Date Type Department Care Team (Late st Contact Info) Description 04/14/2019 Orders Only [facility] Cardiology [address] [facility] [address], [place] [address] Bindu Gaines MD [address] [address] Social History Tobacco Use Types Packs/Day Years Used Date Smoking Tobacco: Never Smokeless Tobacco: Never Alcohol Use Standard Drinks/Week Comments Yes 1 (1 standard drink = 0.6 oz pur e alcohol) PHQ-2 Answer Date Recorded PHQ-2 Score 1 12/03/2018 Comments Unknown Sex and Gender Information Value Date Recorded Sex Assigned at Not on file Legal Sex Female 8:13 AM SAWMILL EQUIPMENT OPERATOR Gender Identity Female 06/01/2020 9:42 PM SAWMILL EQUIPMENT OPERATOR Sexual Orientation Straight 06/01/2020 9: 42 PM SAWMILL EQUIPMENT OPERATOR 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 0.9-1.1 Moderate-intensity Warfarin Therapy 2.0-3.0 Higher-intensity Warfarin Therapy ?? 3.0-4.0 PT 40.4(H) 9.0 - 11.5 sec [facility] Comment: For more information on this test, go to: http://education.nodila/faq/AJT980 04/14/2019 6:38 AM SAWMILL EQUIPMENT OPERATOR 04/14/2019 6:38 AM SAWMILL EQUIPMENT OPERATOR Narrative Resulting Agency Comment Performing Organization Information: ?Site ID: ?Name: [facility] ?Address: [facility] [place] [address] ?Director: Adilson Hameed us Bindu Gaines MD LAB BLOOD ORDERABLES Final Result [facility] [place] documented in this encounter Visit Diagnoses Not on filedocumented in this encounter Care Teams Store Planner Relationship Specialty Start Date End Date Helena Yu PA [address] [place] [address] PCP - General Internal Medicine 09/23/18 07/29/20 documented as of this encounter
--- OUTSIDE RECORDS SUMMARY | 2024-04-01 12:10 | XMS_ITS | Encounter Summary ---
Author Organization [facility] Address [address] [facility] [place] [address] Care Team Providers Care Dietary Worker Name Role Phone Unavailable Primary Care Provider Unavailabl e Encounter Details Date Type Department Care Team (Latest Contact Info) Description 08/19/2018 Anticoagulation Visit [facility] [address] [facility] [address] [address] Bindu Gaines MD [address] [address] H/O mechanical aortic valve replacement; retirement current use of anticoagulant therapy Social History Tobacco Use Types Packs/Day Years Used Date Smoking Tobacco: Never Smokeless Tobacco: Never Alcohol Use Standard Drinks/Week Comments Yes 1 (1 standard drink = 0.6 oz pur e alcohol) Comments Unknown Sex and Gender Information Value Date Recorded Sex Assigned at Not on file Legal Sex Female 8:13 AM CHILD THERAPIST Gender Identity Female 06/01/2020 9:42 PM CHILD THERAPIST Sexual Orientation Straight 06/01/2020 9: 42 PM CHILD THERAPIST documented as of this encounter Plan of Treatment Not on file documented as of this encounter Visit Diagnoses Diagnosis H/O mechanical aortic valve replacement retirement current 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
--- OUTSIDE RECORDS SUMMARY | 2024-04-01 12:10 | XMS_ITS | Encounter Summary ---
Author Organization [facility] Address [address] [place] [address] Care Team Providers Care Employment Assistant Name Role Phone Helena Yu Primary Care Provider +1- [phone] Reason for Visit * Reason Comments Gynecologic Exam Wellness Visit Encounter Details Date Type Department Care Team (Latest Contact Info) Description 11/17/2018 2:45 PM CDT Office Visit [facility] Family Medicine [address] [facility] [address] [place] [address] Helena Yu PA [address] [place] [address] Encounter for well woman exam [...] file Legal Sex Female 8:13 AM SALES PRODUCER Gender Identity Female 06/01/2020 9:42 PM SALES PRODUCER Sexual Orientation Straight 06/01/2020 9: 42 PM SALES PRODUCER 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 Call your insurance regarding Shingrix Coverage ([id number]). Ask should you get it in the [...] pains ---wonders if could be fibromyalgia. 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 Has [...] provided * Assessment & Plan Note - Helnea Yu PA - 11/21/2018 11:31 PM CDT [...] vaccination Need for prophylactic vaccination with combined euphevnoim-kvytucc-qdjdklria (DTP) vaccine Primary osteoarthritis of both knees [...] 12/12/2019 added in this encounter Care Teams Employment Assistant Relationship Specialty Start Date End Date Helena Yu PA [address] [facility] [address] [place] [address] PCP - General Internal Medicine 09/23/18 07/29/20 documented as of this encounter
--- OUTSIDE RECORDS SUMMARY | 2024-04-01 12:10 | XMS_ITS | Encounter Summary ---
Author Organization [facility] Address [address] [facility] [address] [place] [address] Care Team Providers Care Star Route Mail Driver Name Role Phone Helena Yu Primary Care Provider +1- [phone] Encounter Details Date Type Department Care Team (Latest Contact Info) Description 03/04/2019 Anticoagulation Visit [facility] [address] [facility] [address] [place] [address] Bindu Gaines MD [address] [address] H/O mechanical aortic valve replacement; longterm current [...] on file Legal Sex Female 8:13 AM RADAR SIGNAL PROCESSING ENGINEER Gender Identity Female 06/01/2020 9:42 PM RADAR SIGNAL PROCESSING ENGINEER Sexual Orientation Straight 06/01/2020 9: 42 PM RADAR SIGNAL PROCESSING ENGINEER 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
--- OUTSIDE RECORDS SUMMARY | 2024-04-01 12:10 | XMS_ITS | Encounter Summary ---
Author Organization [facility] Address [address] [facility] [address] [place] [address] Care Team Providers Care Welder And Fitter Name Role Phone Unavailable Primary Care Provider Unavailabl e Encounter Details Date Type Department Care Team (Latest Contact Info) Description 06/16/2018 Anticoagulation Visit [facility] [address] [facility] [address], [place] [address] Bindu Gaines MD [address] [address] H/O mechanical aortic valve replacement; alf current use of anticoagulant therapy Social History Tobacco Use Types Packs/Day Years Used Date Smoking Tobacco: Never Smokeless Tobacco: Never Alcohol Use Standard Drinks/Week Comments Yes 1 (1 standard drink = 0.6 oz pur e alcohol) Comments Unknown Sex and Gender Information Value Date Recorded Sex Assigned at Not on file Legal Sex Female 8:13 AM CONSULTING DATABASE ADMINISTRATOR Gender Identity Female 06/01/2020 9:42 PM CONSULTING DATABASE ADMINISTRATOR Sexual Orientation Straight 06/01/2020 9: 42 PM CONSULTING DATABASE ADMINISTRATOR documented as of this encounter Plan of Treatment Not on file documented as of this encounter Visit Diagnoses Diagnosis H/O mechanical aortic valve replacement alf current 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
--- OUTSIDE RECORDS SUMMARY | 2024-04-01 12:10 | XMS_ITS | Encounter Summary ---
Author Organization [facility] Address [address] [facility] [address] [place] [address] Care Team Providers Care Coin Rolling Machine Operator Name Role Phone Helena Yu Primary Care Provider +1- [phone] Encounter Details Date Type Department Care Team (Latest Contact Info) Description 12/10/2018 Anticoagulation Visit [facility] [address] [facility] [address] [place] [address] Bindu Gaines MD [address] [address] H/O mechanical aortic valve replacement; shelter current [...] on file Legal Sex Female 8:13 AM PROCESSES CHEMICAL DESIGN ENGINEER Gender Identity Female 06/01/2020 9:42 PM PROCESSES CHEMICAL DESIGN ENGINEER Sexual Orientation Straight 06/01/2020 9: 42 PM PROCESSES CHEMICAL DESIGN ENGINEER 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 [address] [place] [address] PCP - General Internal Medicine 09/23/18 07/29/20 documented as of this encounter
--- OUTSIDE RECORDS SUMMARY | 2024-04-01 12:10 | XMS_ITS | Encounter Summary ---
Author Organization [facility] Address [address] [facility] [address] [place] [address] Care Team Providers Care Sales And Marketing Director Name Role Phone Helena Yu Primary Care Provider +1- [phone] Encounter Details Date Type Department Care Team (Latest Contact Info) Description 11/26/2018 Anticoagulation Visit [facility] [address] [facility] [address] [place] [address] Bindu Gaines MD [address] [facility] [address] [place] [address] H/O mechanical aortic valve replacement; [...] on file Legal Sex Female 8:13 AM CAGE MAKER MACHINE Gender Identity Female 06/01/2020 9:42 PM CAGE MAKER MACHINE Sexual Orientation Straight 06/01/2020 9: 42 PM CAGE MAKER MACHINE 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
--- OUTSIDE RECORDS SUMMARY | 2024-04-01 12:10 | XMS_ITS | Encounter Summary ---
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
--- OUTSIDE RECORDS SUMMARY | 2024-04-01 12:10 | XMS_ITS | Encounter Summary ---
Author Organization [facility] Address [address] [facility] [address] [place] [address] Care Team Providers Care Ballistics Expert Name Role Phone Helena Yu Primary Care Provider +1- [phone] Reason for Referral * Diagnostic Imaging (Routine) - Closed Specialty Diagnoses / Procedures Referred By Bernardoac t Referred To Contact Diagnoses H/O mechanical aortic valve replacement Procedures Transthoracic Echo Complete W Doppler/CF Bindu Santamaria MD Phone: tel: fax: [facility] Referral ID Status Reason Start Date Expiration Date Visits Re quested Visits Authorized [id number] Closed 11/15/2018 05/26/2020 1 1 Reason for Visit * Reason Comments Follow-up 1 yr f/u Encounter Details Date Type Department Care Team (Latest Contact Info) Description 11/15/2018 1:15 PM CDT Office Visit [facility] [address] [address] Bindu Santamaria MD [address] [place], [place] [id number] H/O mechanical aortic valve replacement (Primary Dx); intermediate current use of anticoagulant therapy; Bicuspid aortic [...] file Legal Sex Female 8:13 AM FISHERIES BIOLOGIST Gender Identity Female 06/01/2020 9:42 PM FISHERIES BIOLOGIST Sexual Orientation Straight 06/01/2020 9: 42 PM FISHERIES BIOLOGIST documented as of this encounter Last Filed [...] who underwent AVR w/ a 19 mm Nikolski mechanical valve by Dr. Guthrie in 2008. [...] no bleeding. Cholest 221. 11/10/2017 OV w/ BLEACH TESTER Jessica: Here for annual visit. No specific [...] also severely disabled, and moved into a skilled nursing but it didn't work out and now [...] Relation Age of Onset ??? Other Father PR age 50, CABG; ??? Other Mother H/O [...] mmHg --> Aortic valve replacement, 19 mm Nikolski valve 2008: EF 63%, LYNSEY 1.0-1.1 cm2, mean grad 8 mmHg (post-op) 2014: EF 63%, LYNSEY 1.2 cm2, mean grad 13 mmHg. She also has mild asthma. 11/2017 EF 60%, diast dysfxn, EF 60%, LYNSEY 1.5 cm2, mean grad 7 mmHg. ASSESSMENT Diagnoses and all orders for this visit: H/O mechanical aortic valve replacement (Primary) - Transthoracic Echo Complete W Doppler/CF; Future intermediate current use of anticoagulant therapy Bicuspid aortic [...] sooner if needed A Bindu Santamaria MD, [facility] Office: [phone] or [phone] This note is dictated and transcribed by with assistance from [employer].?? Laborer Pipeline variances may occur. Despite proofreading, typographical errors may occur. documented in this encounter Plan of Treatment Not on file documented as of this encounter Results * TRANSTHORACIC ECHO (TTE) COMPLETE W DOPPLER/CF WO CONTRAST (12/17/2018 2:49 PM CDT) Anatomical Region Laterality Modality Ultrasound 12/17/2018 11:5 2 AM CDT Narrative 12/17/2018 5:47 PM CDT [facility] [facility] [address] [address] [address] [facility] [address] [address] P:[phone] P:[phone] Echocardiographic Report Patient Name: YESSY NIXON : 1955 Study Date: 12/17/2018 11:52:04 AM Gender: F Tech: Location: [place] Ref.Provider: EDYTA Height(Cm): 155 BSA: 1.61 Weight(Kg): [...] Site: Exam was interpreted at [facility]. Left Ventricle: Normal left ventricular systolic [...] Care Group [address], [place] [address] [address], [address], [place] [address] P:[phone] P:[phone] Echocardiographic Report Patient Name: YESSY NIXONPatient ID: [id number] : [id number] Date: 12/17/2018 11:52:04 AM Gender: FAccession #: [id number] Tech: GMLocation: [place] Ref.Provider: Hanyight(Cm): 155 BSA: 1.61Weight(Kg): 62.14 Heart [...] 0.40 - 0.80 ] m/s MV Decel Fpji139 [ 150 - 200 ] msec PV Peak Vel0.87 [ 0.40 - 0.80 ] m/s TR Peak Vel2.43 [ 0.40 - 0.80 ] m/s TR Peak PG 24mmHg RVSP32.00 mmHg E'0.11 E/E' 6 Findings: Interpretation Site: Exam was interpreted at [facility]. Left Ventricle: Normal left ventricular systolic [...] Primary intermediate current use of anticoagulant therapy Bicuspid aortic [...] documented as of this encounter Care Teams Ballistics Expert Relationship Specialty Start Date End Date Helena Yu PA [address] [place] [address] PCP - General Internal Medicine 09/23/18 07/29/20 documented as of this encounter
--- OUTSIDE RECORDS SUMMARY | 2024-04-01 12:10 | XMS_ITS | Encounter Summary ---
Author Organization [facility] Address [address] [facility] [address] [place] [address] Care Team Providers Care Club Lounge Attendant Name Role Phone Helena Yu Primary Care Provider +1- [phone] Encounter Details Date Type Department Care Team (Late st Contact Info) Description 02/21/2019 Telephone [facility] [address] [facility] [address] [place] [address] Bindu Gaines MD [address] [address] Social History Tobacco Use Types Packs/Day Years Used Date Smoking Tobacco: Never Smokeless Tobacco: Never Alcohol Use Standard Drinks/Week Comments Yes 1 (1 standard drink = 0.6 oz pur e alcohol) PHQ-2 Answer Date Recorded PHQ-2 Score 1 12/03/2018 Comments Unknown Sex and Gender Information Value Date Recorded Sex Assigned at Not on file Legal Sex Female 8:13 AM CAMERA TECHNICIAN Gender Identity Female 06/01/2020 9:42 PM CAMERA TECHNICIAN Sexual Orientation Straight 06/01/2020 9: 42 PM CAMERA TECHNICIAN Occupation Industry Job Start Date Job End Date [employer] Not on file Not on file Not on file documented as of this encounter Miscellaneous Notes * Telephone Encounter - Penny Wilks RN - 02/21/2019 11:26 AM CST Order faxed RA TECHNICIAN * Telephone Encounter - Tabitha Craft - 02/21/2019 11:13 AM CAMERA TECHNICIAN [facility] called requesting a new standing order be fax to [phone]. Pt is there waiting RA TECHNICIAN documented in this encounter Plan of Treatment Scheduled Orders Name Type Priority Associated Diagnoses Orde r Schedule Protime-INR Lab Routine terminal computer operator current use of anticoagulant therapy 52 Occurrences starting 02/21/2019 until 02/22/2020 documented as of this encounter Visit Diagnoses Diagnosis prison current use of anticoagulant therapy- Primary documented in this encounter Care Teams Club Lounge Attendant Relationship Specialty Start Date End Date Helena Yu PA [address] [address] PCP - General Internal Medicine 09/23/18 07/29/20 documented as of this encounter
--- OUTSIDE RECORDS SUMMARY | 2024-04-01 12:10 | XMS_ITS | Encounter Summary ---
Author Organization [facility] Address [address] [facility] [address] [place] [address] Care Team Providers Care Perioperative Nurse Name Role Phone Unavailable Primary Care Provider Unavailabl e Encounter Details Date Type Department Care Team (Late st Contact Info) Description 09/17/2018 Telephone [facility] [address] [facility] [address], [place] [address] Rachel Fan, NAMRATA [address] [facility] [address] [place] [address] Social History Tobacco Use Types Packs/Day Years Used Date Smoking Tobacco: Never Smokeless Tobacco: Never Alcohol Use Standard Drinks/Week Comments Yes 1 (1 standard drink = 0.6 oz pur e alcohol) Comments Unknown Sex and Gender Information Value Date Recorded Sex Assigned at Not on file Legal Sex Female 8:13 AM TRACK SUPERVISOR Gender Identity Female 06/01/2020 9:42 PM TRACK SUPERVISOR Sexual Orientation Straight 06/01/2020 9: 42 PM TRACK SUPERVISOR documented as of this encounter Miscellaneous Notes * Telephone Encounter - Juany Mccabe RN - 09/17/2018 9:02 AM CDT Noted. Will await results. * Telephone Encounter - Tabitha Craft - 09/17/2018 8:54 AM CDT Pt had labs drawn again at [facility] in [facility]. * Telephone Encounter - Edelmira Ware RN [...]
--- OUTSIDE RECORDS SUMMARY | 2024-04-01 12:10 | XMS_ITS | Encounter Summary ---
Author Organization [facility] Medical Group Address [address] [facility] [facility] [address] [place] [address] Care Team Providers Care Recovery Collector Name Role Phone Unavailable Primary Care Provider Unavailabl e Encounter Details Date Type Department Care Team (Latest Contact Info) Description 07/27/2018 Anticoagulation Visit [facility] [address] [facility] [address] [place] [address] Juany Mccabe RN H/O mechanical aortic valve replacement; [facility] current use of anticoagulant therapy Social History Tobacco Use Types Packs/Day Years Used Date Smoking Tobacco: Never Smokeless Tobacco: Never Alcohol Use Standard Drinks/Week Comments Yes 1 (1 standard drink = 0.6 oz pur e alcohol) Comments Unknown Sex and Gender Information Value Date Recorded Sex Assigned at Not on file Legal Sex Female 8:13 AM CHEMICAL ENGINEERING INTERN Gender Identity Female 06/01/2020 9:42 PM CHEMICAL ENGINEERING INTERN Sexual Orientation Straight 06/01/2020 9: 42 PM CHEMICAL ENGINEERING INTERN documented as of this encounter Plan of Treatment Not on file documented as of this encounter Visit Diagnoses Diagnosis H/O mechanical aortic valve replacement [facility] current 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
--- OUTSIDE RECORDS SUMMARY | 2024-04-01 12:10 | XMS_ITS | Encounter Summary ---
Author Organization [facility] Medical [facility] Address [address] [facility] [address] [place] [address] Care Team Providers Care Crm Specialist Name Role Phone Helena Yu Primary Care Provider +1- [phone] Encounter Details Date Type Department Care Team (Late st Contact Info) Description 04/04/2019 Orders Only [facility] Medical [facility] Cardiology [address] [facility] [address] [address] Bindu Gaines MD [address] [address] Social History Tobacco Use Types Packs/Day Years Used Date Smoking Tobacco: Never Smokeless Tobacco: Never Alcohol Use Standard Drinks/Week Comments Yes 1 (1 standard drink = 0.6 oz pur e alcohol) PHQ-2 Answer Date Recorded PHQ-2 Score 1 12/03/2018 Comments Unknown Sex and Gender Information Value Date Recorded Sex Assigned at Not on file Legal Sex Female 8:13 AM SERGEANT OF CORRECTIONS Gender Identity Female 06/01/2020 9:42 PM SERGEANT OF CORRECTIONS Sexual Orientation Straight 06/01/2020 9: 42 PM SERGEANT OF CORRECTIONS 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 0.9-1.1 Moderate-intensity Warfarin Therapy 2.0-3.0 Higher-intensity Warfarin Therapy ?? 3.0-4.0 PT 20.9(H) 9.0 - 11.5 sec [facility] [place] Comment: For more information on this test, go to: http://education.[employer]/faq/BUT879 04/04/2019 12:5 4 PM SERGEANT OF CORRECTIONS 04/04/2019 12:55 PM SERGEANT OF CORRECTIONS Narrative Resulting Agency Comment Performing Organization Information: ?Site ID: [place] ?Name: [facility] ?Address: [address] [place] [address] DEJA Damico [address] ?Director: Sal Jason D.O., MPH us Bindu Gaines MD LAB BLOOD ORDERABLES Final Result [facility] [place] DEJA Damico documented in this encounter Visit Diagnoses Not on filedocumented in this encounter Care Teams Crm Specialist Relationship Specialty Start Date End Date Helena Yu PA [address] [facility] [address] [place] [address] PCP - General Internal Medicine 09/23/18 07/29/20 documented as of this encounter
--- OUTSIDE RECORDS SUMMARY | 2024-04-01 12:10 | XMS_ITS | Encounter Summary ---
Author Organization [facility] Address [address] [facility] [address] [place] [address] Care Team Providers Care Psychology Tech Name Role Phone Helena Yu Primary Care Provider +1- [phone] Encounter Details Date Type Department Care Team (Latest Contact Info) Description 12/31/2018 Anticoagulation Visit [facility] [address] [facility] [address] [place] [address] Bindu Gaines MD [address] [address] H/O mechanical aortic valve replacement; [...] on file Legal Sex Female 8:13 AM REACTOR KETTLE OPERATOR Gender Identity Female 06/01/2020 9:42 PM REACTOR KETTLE OPERATOR Sexual Orientation Straight 06/01/2020 9: 42 PM REACTOR KETTLE OPERATOR 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
--- OUTSIDE RECORDS SUMMARY | 2024-04-01 12:11 | XMS_ITS | Encounter Summary ---
Author Organization [facility] Address [address] [facility] [address] [place] [address] Care Team Providers Care Storage Center Manager Name Role Phone Unavailable Primary Care Provider Unavailabl e Encounter Details Date Type Department Care Team (Latest Contact Info) Description 05/19/2018 Anticoagulation Visit [facility] [address] [facility] [address], [place] [address] Bindu Gaines MD [address] [address] H/O mechanical aortic valve replacement; prison current use of anticoagulant therapy Social History Tobacco Use Types Packs/Day Years Used Date Smoking Tobacco: Never Smokeless Tobacco: Never Alcohol Use Standard Drinks/Week Comments Yes 1 (1 standard drink = 0.6 oz pur e alcohol) Comments Unknown Sex and Gender Information Value Date Recorded Sex Assigned at Not on file Legal Sex Female 8:13 AM BINDING END STITCHER Gender Identity Female 06/01/2020 9:42 PM BINDING END STITCHER Sexual Orientation Straight 06/01/2020 9: 42 PM BINDING END STITCHER documented as of this encounter Plan of Treatment Not on file documented as of this encounter Visit Diagnoses Diagnosis H/O mechanical aortic valve replacement prison current 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
--- OUTSIDE RECORDS SUMMARY | 2024-04-01 12:11 | XMS_ITS | Encounter Summary ---
Author Organization [facility] Address [address] [facility] [address] [place] [address] Care Team Providers Care Plastic Boat Patcher Name Role Phone Unavailable Primary Care Provider Unavailabl e Encounter Details Date Type Department Care Team (Late st Contact Info) Description 04/01/2018 Telephone [facility] [address] [facility] [address] [place] [address] Bindu Gaines MD [address] [address] Social History Tobacco Use Types Packs/Day Years Used Date Smoking Tobacco: Never Smokeless Tobacco: Never Alcohol Use Standard Drinks/Week Comments Yes 1 (1 standard drink = 0.6 oz pur e alcohol) Comments Unknown Sex and Gender Information Value Date Recorded Sex Assigned at Not on file Legal Sex Female 8:13 AM SPRAYING MACHINE OPERATOR Gender Identity Female 06/01/2020 9:42 PM SPRAYING MACHINE OPERATOR Sexual Orientation Straight 06/01/2020 9: 42 PM SPRAYING MACHINE OPERATOR documented as of this encounter Ordered Prescriptions [...] Edelmira Ware RN - 04/01/2018 8:48 AM SPRAYING MACHINE OPERATOR I called the patient back. She needs a new script sent for her warfarin. Done. YING MACHINE OPERATOR * Telephone Encounter - Tabitha Craft - 04/01/2018 8:03 AM SPRAYING MACHINE OPERATOR Pt called requesting updated directions on her Warfarin, pt cb [phone] YING MACHINE OPERATOR documented in this encounter Plan of Treatment Not on file documented as of this encounter Visit Diagnoses Not on filedocumented in this encounter Discontinued Medications Medication Sig Discontinue Reason Start Date End Da te warfarin (COUMADIN) 5 mg tablet TAKE 1 TABLET BY MOUTH EVERY DAY Reorder 02/02/2018 04/01/2018 documented as of this encounter
--- OUTSIDE RECORDS SUMMARY | 2024-04-01 12:11 | XMS_ITS | Encounter Summary ---
Author Organization [facility] Medical [facility] Address [address] [facility] [address] [place] [address] Care Team Providers Care Gas Meter Prover Name Role Phone Unavailable Primary Care Provider Unavailabl e Encounter Details Date Type Department Care Team (Late st Contact Info) Description 12/21/2017 Telephone [facility] [address] [place] [phone] Bnidu Gaines MD [address] [facility] [address] [place], [place] [address] Social History Tobacco Use Types Packs/Day Years Used Date Smoking Tobacco: Never Smokeless Tobacco: Never Alcohol Use Standard Drinks/Week Comments Yes 1 (1 standard drink = 0.6 oz pur e alcohol) Comments Unknown Sex and Gender Information Value Date Recorded Sex Assigned at Not on file Legal Sex Female 8:13 AM CODING CONSULTANT Gender Identity Female 06/01/2020 9:42 PM CODING CONSULTANT Sexual Orientation Straight 06/01/2020 9: 42 PM CODING CONSULTANT documented as of this encounter Miscellaneous [...] dose of Warfarin this past . cb [phone] documented in this encounter Plan of Treatment Not on file documented as of this encounter Visit Diagnoses Not on filedocumented in this encounter
--- OUTSIDE RECORDS SUMMARY | 2024-04-01 12:11 | XMS_ITS | Encounter Summary ---
Author Organization [facility] Medical [facility] Address [address] [facility] [address] [place] [address] Care Team Providers Care Speech Pathology Assistant Name Role Phone Unavailable Primary Care Provider Unavailabl e Encounter Details Date Type Department Care Team (Late st Contact Info) Description 04/21/2018 Telephone [facility] [address] [facility] [address] [facility] [address] [place] [address] Bindu Gaines MD [address] [facility] [address] [place] [address] Social History Tobacco Use Types Packs/Day Years Used Date Smoking Tobacco: Never Smokeless Tobacco: Never Alcohol Use Standard Drinks/Week Comments Yes 1 (1 standard drink = 0.6 oz pur e alcohol) Comments Unknown Sex and Gender Information Value Date Recorded Sex Assigned at Not on file Legal Sex Female 8:13 AM BOTTOM LINER Gender Identity Female 06/01/2020 9:42 PM BOTTOM LINER Sexual Orientation Straight 06/01/2020 9: 42 PM BOTTOM LINER documented as of this encounter Miscellaneous Notes * Telephone Encounter - Marialuisa Fagan RN - 04/21/2018 8:36 AM BOTTOM LINER Spoke to pt; INR addressed; See flowsheet. OM LINER * Telephone Encounter - Tabitha Craft - 04/21/2018 8:30 AM BOTTOM LINER Pt returned call OM LINER * Telephone Encounter - Edelmira Ware RN - 04/21/2018 8:25 AM BOTTOM LINER I called the patient back. Her voicemail has not been set up yet. No ability to leave a message. OM LINER * Telephone Encounter - Connie Chambers - 04/21/2018 8:15 AM CST Pt returned call regarding INR. cb [phone] OM LINER documented in this encounter Plan of Treatment Not on file documented as of this encounter Visit Diagnoses Not on filedocumented in this encounter
--- OUTSIDE RECORDS SUMMARY | 2024-04-01 12:11 | XMS_ITS | Encounter Summary ---
Author Organization [facility] Medical [facility] Address [address] [facility] [address] [place] [address] Care Team Providers Care Food And Beverage Server Name Role Phone Unavailable Primary Care Provider Unavailabl e Encounter Details Date Type Department Care Team (Latest Contact Info) Description 12/25/2017 Anticoagulation Visit [facility] [address] [place] [address] Bindu Gaines MD [address] [facility] [address] [place] [address] H/O mechanical aortic valve replacement; long-term current use of anticoagulant therapy Social History Tobacco Use Types Packs/Day Years Used Date Smoking Tobacco: Never Smokeless Tobacco: Never Alcohol Use Standard Drinks/Week Comments Yes 1 (1 standard drink = 0.6 oz pur e alcohol) Comments Unknown Sex and Gender Information Value Date Recorded Sex Assigned at Not on file Legal Sex Female 8:13 AM ASSEMBLER SHOW MOTOR Gender Identity Female 06/01/2020 9:42 PM ASSEMBLER SHOW MOTOR Sexual Orientation Straight 06/01/2020 9: 42 PM ASSEMBLER SHOW MOTOR documented as of this encounter Plan of [...]
--- OUTSIDE RECORDS SUMMARY | 2024-04-01 12:11 | XMS_ITS | Encounter Summary ---
Author Organization [facility] Address [address] [facility] [address] [place] [address] Care Team Providers Care Qa Specialist Name Role Phone Unavailable Primary Care Provider Unavailabl e Encounter Details Date Type Department Care Team (Latest Contact Info) Description 03/24/2018 Anticoagulation Visit [facility] [address] [facility] [address], [place] [address] Bindu Gaines MD [address] [address] H/O mechanical aortic valve replacement; [facility] current use of anticoagulant therapy Social History Tobacco Use Types Packs/Day Years Used Date Smoking Tobacco: Never Smokeless Tobacco: Never Alcohol Use Standard Drinks/Week Comments Yes 1 (1 standard drink = 0.6 oz pur e alcohol) Comments Unknown Sex and Gender Information Value Date Recorded Sex Assigned at Not on file Legal Sex Female 8:13 AM SPRAY MACHINE OPERATOR Gender Identity Female 06/01/2020 9:42 PM SPRAY MACHINE OPERATOR Sexual Orientation Straight 06/01/2020 9: 42 PM SPRAY MACHINE OPERATOR documented as of this encounter Plan of Treatment Not on file documented as of this encounter Visit Diagnoses Diagnosis H/O mechanical aortic valve replacement [facility] current 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
--- OUTSIDE RECORDS SUMMARY | 2024-04-01 12:11 | XMS_ITS | Encounter Summary ---
Author Organization [facility] Medical Group Address [address] [facility] [address] [place] [address] Care Team Providers Care Gifted Program Teacher Name Role Phone Unavailable Primary Care Provider Unavailabl e Encounter Details Date Type Department Care Team (Latest Contact Info) Description 11/24/2017 Anticoagulation Visit [facility] [address] [place] [address] Bindu Gaines MD [address] [facility] [address] [place] [address] H/O mechanical aortic valve replacement; jail current use of anticoagulant therapy Social History Tobacco Use Types Packs/Day Years Used Date Smoking Tobacco: Never Smokeless Tobacco: Never Alcohol Use Standard Drinks/Week Comments Yes 1 (1 standard drink = 0.6 oz pur e alcohol) Comments Unknown Sex and Gender Information Value Date Recorded Sex Assigned at Not on file Legal Sex Female 8:13 AM AQUATIC CENTRE MANAGER Gender Identity Female 06/01/2020 9:42 PM AQUATIC CENTRE MANAGER Sexual Orientation Straight 06/01/2020 9: 42 PM AQUATIC CENTRE MANAGER documented as of this encounter Plan [...] Diagnosis H/O mechanical aortic valve replacement 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
--- OUTSIDE RECORDS SUMMARY | 2024-04-01 12:11 | XMS_ITS | Encounter Summary ---
Author Organization [facility] Address [address] [facility] [address] [place] [address] Care Team Providers Care Chart Reader Name Role Phone Unavailable Primary Care Provider Unavailabl e Reason for Referral * Diagnostic Imaging (Routine) - Closed Specialty Diagnoses / Procedures Referred By Contac t Referred To Contact Cardiology Imaging Diagnoses Bicuspid aortic valve H/O mechanical aortic valve replacement Procedures Transthoracic Echo Complete W Doppler/CF Rachel Mott NP Phone: tel: fax: [facility] Medical [facility] Cardiology [address] [address] Phone: tel: fax: Referral ID Status Reason Start Date Expiration Date Visits Re quested Visits Authorized [id number] Closed 11/10/2017 05/22/2019 1 1 Reason for Visit * Reason Comments Follow-up yearly follow up on bicuspid aoritc valve Encounter Details Date Type Department Care Team (Late st Contact Info) Description 11/10/2017 8:30 AM CDT Office Visit [facility] [address] [place] [address] [address] Rachel Mott NP [address] [facility] [address] [place] [id number] Bicuspid aortic valve (Primary Dx); Multiple-type hyperlipidemia; H/O mechanical aortic valve replacement; [facility]FP current use of anticoagulant therapy Social History Tobacco Use Types Packs/Day Years Used Date Smoking Tobacco: Never Smokeless Tobacco: Never Alcohol Use Standard Drinks/Week Comments Yes 1 (1 standard drink = 0.6 oz pur e alcohol) Comments Unknown Sex and Gender Information Value Date Recorded Sex Assigned at Not on file Legal Sex Female 8:13 AM BOAT OUTFITTING SUPERVISOR Gender Identity Female 06/01/2020 9:42 PM BOAT OUTFITTING SUPERVISOR Sexual Orientation Straight 06/01/2020 9: 42 PM BOAT OUTFITTING SUPERVISOR documented as of this encounter Last Filed [...] aortic valve disease. 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 Guthrie in 2008. [...] no bleeding. Cholest 221. 11/10/2017 OV w/ ARMOR RECONNAISSANCE SPECIALIST Jessica: Here for annual visit. No specific [...] mmHg.] - 06/2008 3 AVR [19 mm [place] valve, Dr. Guthrie] - 10/2008 4 01/19: [...] and normal heart sounds. No murmur heard. [place] click of mechanical valve. 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 Left Ventricle: Normal left ventricular systolic function. [...] MD - 11/20/2017 [facility] [facility] [address] [id number] [address] [facility] [address], [place] [address] P:[phone] P:[phone] Echocardiographic Report Patient Name: YESSY DONALDSONPatient ID: [id number] : [id number] Date: 11/20/2017 12:28:34 PM Gender: FAccession #: [id number] Tech: GMLocation: [place] Ref.Physician: Carrilloight(Cm): 160 BSA: 1.62Weight(Kg): 59.88 Heart [...] 2.70 - 3.80 ] cm MV Decel [id number] [ 150 - 200 ] msec AoR [...] Findings: Interpretation Site: Exam was interpreted at [facility]. Left Ventricle: Normal left ventricular systolic function. [...] unspecified hyperlipidemia H/O mechanical aortic valve replacement [facility]FP current use of anticoagulant therapy Bicuspid aortic [...]
--- OUTSIDE RECORDS SUMMARY | 2024-04-01 12:11 | XMS_ITS | Encounter Summary ---
Author Organization [facility] Address [address] [facility] [address] [place] [address] Care Team Providers Care Gang Tailer Name Role Phone Unavailable Primary Care Provider Unavailabl e Encounter Details Date Type Department Care Team (Latest Contact Info) Description 01/19/2018 Anticoagulation Visit [facility] [address] [place] [address] Bindu Gaines MD [address] [facility] [address] [place] [address] H/O mechanical aortic valve replacement; USP current use of anticoagulant therapy Social History Tobacco Use Types Packs/Day Years Used Date Smoking Tobacco: Never Smokeless Tobacco: Never Alcohol Use Standard Drinks/Week Comments Yes 1 (1 standard drink = 0.6 oz pur e alcohol) Comments Unknown Sex and Gender Information Value Date Recorded Sex Assigned at Not on file Legal Sex Female 8:13 AM CIRCUS TRAIN SUPERVISOR Gender Identity Female 06/01/2020 9:42 PM CIRCUS TRAIN SUPERVISOR Sexual Orientation Straight 06/01/2020 9: 42 PM CIRCUS TRAIN SUPERVISOR documented as of this encounter Plan [...] Diagnoses Diagnosis H/O mechanical aortic valve replacement 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
--- OUTSIDE RECORDS SUMMARY | 2024-04-01 12:11 | XMS_ITS | Encounter Summary ---
Author Organization [facility] Address [address] [facility] [address] [place] [address] Care Team Providers Care Truck Dock Material Mover Name Role Phone Unavailable Primary Care Provider Unavailabl e Encounter Details Date Type Department Care Team (Latest Contact Info) Description 09/09/2017 Anticoagulation Visit [facility] [address] [place] [address] Bindu Gaines MD [address] [facility] [address] [place] [address] H/O mechanical aortic valve replacement; [facility] [...] file Legal Sex Female 8:13 AM GAS TURBINE POWERPLANT MECHANIC HELPER Gender Identity Female 06/01/2020 9:42 PM GAS TURBINE POWERPLANT MECHANIC HELPER Sexual Orientation Straight 06/01/2020 9: 42 PM GAS TURBINE POWERPLANT MECHANIC HELPER documented as of this encounter Plan [...]
--- OUTSIDE RECORDS SUMMARY | 2024-04-01 12:11 | XMS_ITS | Encounter Summary ---
Author Organization [facility] Medical Group Address [address] [facility] [address] [place] [address] Care Team Providers Care Ip Architect Name Role Phone Unavailable Primary Care Provider Unavailabl e Encounter Details Date Type Department Care Team (Latest Contact Info) Description 03/03/2018 Anticoagulation Visit [facility] [address] [facility] [address] [place] [address] Juany Mccabe RN H/O mechanical aortic valve replacement; longterm current use of anticoagulant therapy Social History Tobacco Use Types Packs/Day Years Used Date Smoking Tobacco: Never Smokeless Tobacco: Never Alcohol Use Standard Drinks/Week Comments Yes 1 (1 standard drink = 0.6 oz pur e alcohol) Comments Unknown Sex and Gender Information Value Date Recorded Sex Assigned at Not on file Legal Sex Female 8:13 AM FILM EDITOR Gender Identity Female 06/01/2020 9:42 PM FILM EDITOR Sexual Orientation Straight 06/01/2020 9: 42 PM FILM EDITOR documented as of this encounter Plan of Treatment Not on file documented as of this encounter Visit Diagnoses Diagnosis H/O mechanical aortic valve replacement longterm current 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
--- OUTSIDE RECORDS SUMMARY | 2024-04-01 12:11 | XMS_ITS | Encounter Summary ---
Author Organization [facility] Care Team Providers Care Slot Technician Name Role Phone Helena Yu Primary Care Provider [phone] Gabi Fagan MD Primary Care Pro vider Nathalie Jain MD Primary Care Provider [phone] Jose Lorenzo DO Primary Care Provider [phone] Sanket Waldron DO Primary Care Provide r Adrien Camejo MD Unavailable [phone] Encounter Details Date Type Department Care Team (Latest Contact Info) Description 11/20/2017 Orders Only [facility] CLINCONV ProviderReynaldo MD [address] [place] [address] Social History Tobacco Use Types Packs/Day Years Used Date Smoking Tobacco: Never Smokeless Tobacco: Never Alcohol Use Standard Drinks/Week Comments Yes 1 (1 standard drink = 0.6 oz pur e alcohol) Comments Unknown Sex and Gender Information Value Date Recorded Sex Assigned at Not on file Legal Sex Female 8:13 AM CLINICAL DATA RESEARCH Gender Identity Female 06/01/2020 9:42 PM CLINICAL DATA RESEARCH Sexual Orientation Straight 06/01/2020 9: 42 PM CLINICAL DATA RESEARCH documented as of this encounter Plan of [...] on filedocumented in this encounter Care Teams Slot Technician Relationship Specialty Start Date End Date Helena Yu PA [address] [place] [address] PCP - General Internal Medicine 09/23/18 07/29/20 Gabi Fagan MD [address] [place] [address] PCP - General Family Medicine 07/30/20 01/09/21 Nathalie Jain MD [address] [place] [address] PCP - General Internal Medicine 01/10/21 09/22/22 Jose Lorenzo DO [address] [place] [address] PCP - General Family Medicine 09/23/22 05/25/23 Sanket Waldron DO [address] [place] [address] PCP - General 05/26/23 Adrien Camejo MD [address] [place] [address] Consulting Physician Orthopedic Surgery 08/25/23 documented as of this encounter
--- OUTSIDE RECORDS SUMMARY | 2024-04-01 12:11 | XMS_ITS | Encounter Summary ---
Author Organization [facility] Address [address] [facility] [address] [place] [address] Care Team Providers Care Product Engineer Name Role Phone Unavailable Primary Care Provider Unavailabl e Encounter Details Date Type Department Care Team (Latest Contact Info) Description 09/18/2017 Anticoagulation Visit [facility] [address] [place] [address] Bindu Gaines MD [address] [facility] [address] [place] [address] H/O mechanical aortic valve replacement; prison current use of anticoagulant therapy Social History Tobacco Use Types Packs/Day Years Used Date Smoking Tobacco: Never Smokeless Tobacco: Never Alcohol Use Standard Drinks/Week Comments Yes 1 (1 standard drink = 0.6 oz pur e alcohol) Comments Unknown Sex and Gender Information Value Date Recorded Sex Assigned at Not on file Legal Sex Female 8:13 AM DIRECTOR TRANSLATIONAL Gender Identity Female 06/01/2020 9:42 PM DIRECTOR TRANSLATIONAL Sexual Orientation Straight 06/01/2020 9: 42 PM DIRECTOR TRANSLATIONAL documented as of this encounter Plan of [...]
--- OUTSIDE RECORDS SUMMARY | 2024-04-01 12:11 | XMS_ITS | Encounter Summary ---
Author Organization [facility] Address [address] [facility] [address] [place] [address] Care Team Providers Care Director Supply Name Role Phone Unavailable Primary Care Provider Unavailabl e Encounter Details Date Type Department Care Team (Latest Contact Info) Description 02/11/2018 Anticoagulation Visit [facility] [address] [place] [address] Bindu Gaines MD [address] [facility] [address] [place] [address] H/O mechanical aortic valve replacement; assisted current use of anticoagulant therapy Social History Tobacco Use Types Packs/Day Years Used Date Smoking Tobacco: Never Smokeless Tobacco: Never Alcohol Use Standard Drinks/Week Comments Yes 1 (1 standard drink = 0.6 oz pur e alcohol) Comments Unknown Sex and Gender Information Value Date Recorded Sex Assigned at Not on file Legal Sex Female 8:13 AM DIRECTOR TALENT MANAGEMENT Gender Identity Female 06/01/2020 9:42 PM DIRECTOR TALENT MANAGEMENT Sexual Orientation Straight 06/01/2020 9: 42 PM DIRECTOR TALENT MANAGEMENT documented as of this encounter [...] Diagnosis H/O mechanical aortic valve replacement 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
--- OUTSIDE RECORDS SUMMARY | 2024-04-01 12:11 | XMS_ITS | Encounter Summary ---
Author Organization [facility] Address [address] [facility] [address] [place] [address] Care Team Providers Care Machine Tender Name Role Phone Unavailable Primary Care Provider Unavailabl e Encounter Details Date Type Department Care Team (Latest Contact Info) Description 08/26/2017 Anticoagulation Visit [facility] [address] [place] [address] Bindu Gaines MD [address] [facility] [address] [place] [address] H/O mechanical aortic valve replacement; [facility] current use of anticoagulant therapy Social History Tobacco Use Types Packs/Day Years Used Date Smoking Tobacco: Never Smokeless Tobacco: Never Alcohol Use Standard Drinks/Week Comments Yes 1 (1 standard drink = 0.6 oz pur e alcohol) Comments Unknown Sex and Gender Information Value Date Recorded Sex Assigned at Not on file Legal Sex Female 8:13 AM RECORDER OF DEEDS Gender Identity Female 06/01/2020 9:42 PM RECORDER OF DEEDS Sexual Orientation Straight 06/01/2020 9: 42 PM RECORDER OF DEEDS documented as of this encounter Plan of [...] Diagnoses Diagnosis H/O mechanical aortic valve replacement 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
--- OUTSIDE RECORDS SUMMARY | 2024-04-01 12:11 | XMS_ITS | Encounter Summary ---
Author Organization [facility] Address [address] [facility] [address] [place] [address] Care Team Providers Care Skiver Hand Name Role Phone Unavailable Primary Care Provider Unavailabl e Encounter Details Date Type Department Care Team (Latest Contact Info) Description 02/25/2018 Anticoagulation Visit [facility] [address] [facility] [address] [place] [address] Juany Mccabe RN H/O mechanical aortic valve replacement; long-term current use of anticoagulant therapy Social History Tobacco Use Types Packs/Day Years Used Date Smoking Tobacco: Never Smokeless Tobacco: Never Alcohol Use Standard Drinks/Week Comments Yes 1 (1 standard drink = 0.6 oz pur e alcohol) Comments Unknown Sex and Gender Information Value Date Recorded Sex Assigned at Not on file Legal Sex Female 8:13 AM TRACTOR TRAILER OPERATOR Gender Identity Female 06/01/2020 9:42 PM TRACTOR TRAILER OPERATOR Sexual Orientation Straight 06/01/2020 9: 42 PM TRACTOR TRAILER OPERATOR documented as of this encounter Plan of Treatment Not on file documented as of this encounter Visit Diagnoses Diagnosis H/O mechanical aortic valve replacement long-term current 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
--- OUTSIDE RECORDS SUMMARY | 2024-04-01 12:11 | XMS_ITS | Encounter Summary ---
Author Organization [facility] Address [address] [facility] [address] [place] [address] Care Team Providers Care C T Tech Name Role Phone Helena Yu Primary Care Provider [phone] Encounter Details Date Type Department Care Team (Late st Contact Info) Description 11/23/2017 Telephone [facility] [address] [facility] [address] [place] [address] Bindu Gaines MD [address] [facility] 102 [place] [address] Social History Tobacco Use Types [...] on file Legal Sex Female 8:[address] ASSISTANT Gender Identity Female 06/01/2020 9:[address] ASSISTANT Sexual Orientation Straight 06/01/2020 9: [address] ASSISTANT documented as of this encounter Plan of Treatment Not on file documented as of this encounter Visit Diagnoses Not on filedocumented in this encounter Care Teams C T Tech Relationship Specialty Start Date End Date Helena Yu PA [address] [facility] [address] [facility] [address] [place] [address] PCP - General Internal Medicine 09/23/18 07/29/20 documented as of this encounter
--- OUTSIDE RECORDS SUMMARY | 2024-04-01 12:11 | XMS_ITS | Encounter Summary ---
Author Organization [facility] Address [address] [facility] [address] [place] [address] Care Team Providers Care Hand Bender Name Role Phone Unavailable Primary Care Provider Unavailabl e Encounter Details Date Type Department Care Team (Latest Contact Info) Description 05/22/2017 Anticoagulation Visit [facility] [address] [place] [address] Bindu Gaines MD [address] [facility] [address] [place] [address] H/O mechanical aortic valve replacement; longterm current use of anticoagulant therapy Social History Tobacco Use Types Packs/Day Years Used Date Smoking Tobacco: Never Smokeless Tobacco: Never Alcohol Use Standard Drinks/Week Comments Yes 1 (1 standard drink = 0.6 oz pur e alcohol) Comments Unknown Sex and Gender Information Value Date Recorded Sex Assigned at Not on file Legal Sex Female 8:13 AM LABORER HOISTING Gender Identity Female 06/01/2020 9:42 PM LABORER HOISTING Sexual Orientation Straight 06/01/2020 9: 42 PM LABORER HOISTING documented as of this encounter Plan of [...]
--- OUTSIDE RECORDS SUMMARY | 2024-04-01 12:11 | XMS_ITS | Encounter Summary ---
Author Organization [facility] Address [address] [facility] [address] [place] [address] Care Team Providers Care Cuff Runner Name Role Phone Unavailable Primary Care Provider Unavailabl e Encounter Details Date Type Department Care Team (Latest Contact Info) Description 04/24/2017 Anticoagulation Visit [facility] [address] [place] [address] Bindu Gaines MD [address] [place] [address] H/O mechanical aortic valve replacement; alf current use of anticoagulant therapy Social History Tobacco Use Types Packs/Day Years Used Date Smoking Tobacco: Never Smokeless Tobacco: Never Alcohol Use Standard Drinks/Week Comments Yes 1 (1 standard drink = 0.6 oz pur e alcohol) Comments Unknown Sex and Gender Information Value Date Recorded Sex Assigned at Not on file Legal Sex Female 8:13 AM FILTER TANK OPERATOR Gender Identity Female 06/01/2020 9:42 PM FILTER TANK OPERATOR Sexual Orientation Straight 06/01/2020 9: 42 PM FILTER TANK OPERATOR documented as of this encounter Plan [...]
--- OUTSIDE RECORDS SUMMARY | 2024-04-01 12:11 | XMS_ITS | Encounter Summary ---
Author Organization [facility] Address [address] [facility] [address] [place] [address] Care Team Providers Care Engineering Patternmaker Name Role Phone Unavailable Primary Care Provider Unavailabl e Encounter Details Date Type Department Care Team (Latest Contact Info) Description 06/19/2017 Anticoagulation Visit [facility] [address] [place] [address] Bindu Gaines MD [address] [place] [address] H/O mechanical aortic valve replacement; longterm current use of anticoagulant therapy Social History Tobacco Use Types Packs/Day Years Used Date Smoking Tobacco: Never Smokeless Tobacco: Never Alcohol Use Standard Drinks/Week Comments Yes 1 (1 standard drink = 0.6 oz pur e alcohol) Comments Unknown Sex and Gender Information Value Date Recorded Sex Assigned at Not on file Legal Sex Female 8:13 AM METAL BURRER Gender Identity Female 06/01/2020 9:42 PM METAL BURRER Sexual Orientation Straight 06/01/2020 9: 42 PM METAL BURRER documented as of this encounter Plan of [...]
--- OUTSIDE RECORDS SUMMARY | 2024-04-01 12:11 | XMS_ITS | Encounter Summary ---
Author Organization [facility] Address [address] [facility] [address] [place] [address] Care Team Providers Care Pot Room Tapper Name Role Phone Unavailable Primary Care Provider Unavailabl e Encounter Details Date Type Department Care Team (Late st Contact Info) Description 02/12/2018 Telephone [facility] [address] [facility] [address], [place] [address] Bindu Gaines MD [address] [facility] [address] [place] [address] Social History Tobacco Use Types Packs/Day Years Used Date Smoking Tobacco: Never Smokeless Tobacco: Never Alcohol Use Standard Drinks/Week Comments Yes 1 (1 standard drink = 0.6 oz pur e alcohol) Comments Unknown Sex and Gender Information Value Date Recorded Sex Assigned at Not on file Legal Sex Female 8:13 AM RIPSAWYER Gender Identity Female 06/01/2020 9:42 PM RIPSAWYER Sexual Orientation Straight 06/01/2020 9: 42 PM RIPSAWYER documented as of this encounter Miscellaneous Notes [...]
--- OUTSIDE RECORDS SUMMARY | 2024-04-01 12:11 | XMS_ITS | Encounter Summary ---
Author Organization [facility] Medical [facility] Address [address] [facility] [address] [place] [address] Care Team Providers Care Vice President Tax Name Role Phone Unavailable Primary Care Provider Unavailabl e Encounter Details Date Type Department Care Team (Late st Contact Info) Description 04/16/2018 Telephone [facility] [address] [facility] [address] [address] Bindu Gaines MD [address] [facility] [address] [place] [address] Social History Tobacco Use Types Packs/Day Years Used Date Smoking Tobacco: Never Smokeless Tobacco: Never Alcohol Use Standard Drinks/Week Comments Yes 1 (1 standard drink = 0.6 oz pur e alcohol) Comments Unknown Sex and Gender Information Value Date Recorded Sex Assigned at Not on file Legal Sex Female 8:13 AM CABLE DRILLER Gender Identity Female 06/01/2020 9:42 PM CABLE DRILLER Sexual Orientation Straight 06/01/2020 9: 42 PM CABLE DRILLER documented as of this encounter Miscellaneous Notes * Telephone Encounter - Juany Mccabe RN - 04/19/2018 8:33 AM CABLE DRILLER Noted. Will await results. E DRILLER * Telephone Encounter - Chambers Connie - 04/19/2018 8:23 AM CST Pt will check INR tomorrow. cb [phone] E DRILLER * Telephone Encounter - Suzanne Germain RN - 04/16/2018 12:08 PM CABLE DRILLER LMOM check INR on Thursday or Thursday to see if an adjustment should be made to warfarin dose. E DRILLER * Telephone Encounter - Tabitha Craft - 04/16/2018 11:25 AM CABLE DRILLER Pt called to inform she is currently taking clindamycin for 10 days, pt will like to know if the medication will affect her INR results, E DRILLER documented in this encounter Plan of Treatment Not on file documented as of this encounter Visit Diagnoses Not on filedocumented in this encounter
--- OUTSIDE RECORDS SUMMARY | 2024-04-01 12:11 | XMS_ITS | Encounter Summary ---
Author Organization [facility] Address [address] [facility] [address] [place] [address] Care Team Providers Care Photographer Still Name Role Phone Unavailable Primary Care Provider Unavailabl e Encounter Details Date Type Department Care Team (Latest Contact Info) Description 06/03/2017 Anticoagulation Visit [facility] [address] [facility] [address], [place] [address] Bindu Gaines MD [address] [facility] 102 [place] [address] H/O mechanical aortic valve replacement; retirement current use of anticoagulant therapy Social History Tobacco Use Types Packs/Day Years Used Date Smoking Tobacco: Never Smokeless Tobacco: Never Alcohol Use Standard Drinks/Week Comments Yes 1 (1 standard drink = 0.6 oz pur e alcohol) Comments Unknown Sex and Gender Information Value Date Recorded Sex Assigned at Not on file Legal Sex Female 8:13 AM STRAIGHT KNIFE CUTTER MACHINE Gender Identity Female 06/01/2020 9:42 PM STRAIGHT KNIFE CUTTER MACHINE Sexual Orientation Straight 06/01/2020 9: 42 PM STRAIGHT KNIFE CUTTER MACHINE documented as of this encounter Plan of [...]
--- OUTSIDE RECORDS SUMMARY | 2024-04-01 12:11 | XMS_ITS | Encounter Summary ---
Author Organization [facility] Address [address] [facility] [address] [place] [address] Care Team Providers Care Migrant Leader Name Role Phone Unavailable Primary Care Provider Unavailabl e Encounter Details Date Type Department Care Team (Latest Contact Info) Description 12/04/2017 Anticoagulation Visit [facility] [address] [place] [address] Bindu Gaines MD [address] [facility] [address] [place] [address] H/O mechanical aortic valve replacement; intermediate current use of anticoagulant therapy Social History Tobacco Use Types Packs/Day Years Used Date Smoking Tobacco: Never Smokeless Tobacco: Never Alcohol Use Standard Drinks/Week Comments Yes 1 (1 standard drink = 0.6 oz pur e alcohol) Comments Unknown Sex and Gender Information Value Date Recorded Sex Assigned at Not on file Legal Sex Female 8:13 AM DAIRY FEED SALES CONSULTANT Gender Identity Female 06/01/2020 9:42 PM DAIRY FEED SALES CONSULTANT Sexual Orientation Straight 06/01/2020 9: 42 PM DAIRY FEED SALES CONSULTANT documented as of this encounter Plan of [...] Diagnoses Diagnosis H/O mechanical aortic valve replacement 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
--- OUTSIDE RECORDS SUMMARY | 2024-04-01 12:11 | XMS_ITS | Encounter Summary ---
Author Organization [facility] Address [address] [facility] [address] [place] [address] Care Team Providers Care Labview Programmer Name Role Phone Unavailable Primary Care Provider Unavailabl e Encounter Details Date Type Department Care Team (Latest Contact Info) Description 11/06/2017 Anticoagulation Visit [facility] [address] [place] [address] Bindu Gaines MD [address] [facility] [address] [place] [address] H/O mechanical aortic valve replacement; skilled nursing current use of anticoagulant therapy Social History Tobacco Use Types Packs/Day Years Used Date Smoking Tobacco: Never Smokeless Tobacco: Never Alcohol Use Standard Drinks/Week Comments Yes 1 (1 standard drink = 0.6 oz pur e alcohol) Comments Unknown Sex and Gender Information Value Date Recorded Sex Assigned at Not on file Legal Sex Female 8:13 AM CASHIER TUBE ROOM Gender Identity Female 06/01/2020 9:42 PM CASHIER TUBE ROOM Sexual Orientation Straight 06/01/2020 9: 42 PM CASHIER TUBE ROOM documented as of this encounter Plan of [...]
--- OUTSIDE RECORDS SUMMARY | 2024-04-01 12:11 | XMS_ITS | Encounter Summary ---
Author Organization [facility] Address [address] [facility] [address] [place] [address] Care Team Providers Care Truer Pinion And Wheel Name Role Phone Unavailable Primary Care Provider Unavailabl e Encounter Details Date Type Department Care Team (Late st Contact Info) Description 01/25/2018 Telephone [facility] [address] [facility] [address] [place] [address] Rachel Fan NP [address] [facility] 102 [place] [address] Social History Tobacco Use Types Packs/Day Years Used Date Smoking Tobacco: Never Smokeless Tobacco: Never Alcohol Use Standard Drinks/Week Comments Yes 1 (1 standard drink = 0.6 oz pur e alcohol) Comments Unknown Sex and Gender Information Value Date Recorded Sex Assigned at Not on file Legal Sex Female 8:13 AM BAKING POWDER MIXER Gender Identity Female 06/01/2020 9:42 PM BAKING POWDER MIXER Sexual Orientation Straight 06/01/2020 9: 42 PM BAKING POWDER MIXER documented as of this encounter Ordered Prescriptions Prescription Sig Dispense Quantity Refills Last Filled Start Date End Date atorvastatin (LIPITOR) 20 mg tablet Take 1 tablet (20 mg total) by mouth daily. 30 tablet 2 01/25/2018 03/15/2018 documented in this encounter Miscellaneous Notes * Telephone Encounter - Aria Harvey RN - 01/25/2018 12:30 PM CDT Spoke with patient; discussed message per CELSAPAPER PATTERN FOLDER voiced understanding. * Telephone Encounter - Aria [...]
--- OUTSIDE RECORDS SUMMARY | 2024-04-01 12:11 | XMS_ITS | Encounter Summary ---
Author Organization [facility] Address [address] [facility] [address] [place] [address] Care Team Providers Care Homicide Detective Name Role Phone Unavailable Primary Care Provider Unavailabl e Encounter Details Date Type Department Care Team (Latest Contact Info) Description 07/23/2017 Anticoagulation Visit [facility] [address] [place] [address] Bindu Gaines MD [address] [facility] [address] [place] [address] H/O mechanical aortic valve replacement; group home current use of anticoagulant therapy Social History Tobacco Use Types Packs/Day Years Used Date Smoking Tobacco: Never Smokeless Tobacco: Never Alcohol Use Standard Drinks/Week Comments Yes 1 (1 standard drink = 0.6 oz pur e alcohol) Comments Unknown Sex and Gender Information Value Date Recorded Sex Assigned at Not on file Legal Sex Female 8:13 AM REST ROOM MAID Gender Identity Female 06/01/2020 9:42 PM REST ROOM MAID Sexual Orientation Straight 06/01/2020 9: 42 PM REST ROOM MAID documented as of this encounter Plan of [...] Diagnoses Diagnosis H/O mechanical aortic valve replacement 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
--- OUTSIDE RECORDS SUMMARY | 2024-04-01 12:11 | XMS_ITS | Encounter Summary ---
Author Organization [facility] Address [address] [facility] [address] [place] [address] Care Team Providers Care Patch Sander Name Role Phone Unavailable Primary Care Provider Unavailabl e Encounter Details Date Type Department Care Team (Latest Contact Info) Description 01/06/2018 Anticoagulation Visit [facility] [address] [place] [address] Bindu Gaines MD [address] [facility] [address] [place] [address] H/O mechanical aortic valve replacement; senior care current use of anticoagulant therapy Social History Tobacco Use Types Packs/Day Years Used Date Smoking Tobacco: Never Smokeless Tobacco: Never Alcohol Use Standard Drinks/Week Comments Yes 1 (1 standard drink = 0.6 oz pur e alcohol) Comments Unknown Sex and Gender Information Value Date Recorded Sex Assigned at Not on file Legal Sex Female 8:13 AM DISPOSAL PLANT OPERATOR Gender Identity Female 06/01/2020 9:42 PM DISPOSAL PLANT OPERATOR Sexual Orientation Straight 06/01/2020 9: 42 PM DISPOSAL PLANT OPERATOR documented as of this encounter Plan [...]
--- OUTSIDE RECORDS SUMMARY | 2024-04-01 12:11 | XMS_ITS | Encounter Summary ---
Author Organization [facility] Address [address] [facility] [address] [place] [address] Care Team Providers Care Office Machines Teacher Name Role Phone Unavailable Primary Care Provider Unavailabl e Encounter Details Date Type Department Care Team (Latest Contact Info) Description 07/16/2017 Anticoagulation Visit [facility] [address] [place] [address] Bindu Gaines MD [address] [place] [address] H/O mechanical aortic valve replacement; group home current use of anticoagulant therapy Social History Tobacco Use Types Packs/Day Years Used Date Smoking Tobacco: Never Smokeless Tobacco: Never Alcohol Use Standard Drinks/Week Comments Yes 1 (1 standard drink = 0.6 oz pur e alcohol) Comments Unknown Sex and Gender Information Value Date Recorded Sex Assigned at Not on file Legal Sex Female 8:13 AM LABOUR MARKET ECONOMIST Gender Identity Female 06/01/2020 9:42 PM LABOUR MARKET ECONOMIST Sexual Orientation Straight 06/01/2020 9: 42 PM LABOUR MARKET ECONOMIST documented as of this encounter Plan of [...] Diagnosis H/O mechanical aortic valve replacement 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
--- OUTSIDE RECORDS SUMMARY | 2024-04-01 12:11 | XMS_ITS | Encounter Summary ---
Author Organization [facility] Address [address] [facility] [address] [place] [address] Care Team Providers Care Mobile Home Park Manager Name Role Phone Unavailable Primary Care Provider Unavailabl e Reason for Visit * Diagnostic Imaging (Routine) - Closed Specialty Diagnoses / Procedures Referred By Contac t Referred To Contact Cardiology Imaging Diagnoses Bicuspid aortic valve H/O mechanical aortic valve replacement Procedures Transthoracic Echo Complete W Doppler/CF Su Mott NP Phone: tel: fax: [facility] Medical [facility] Cardiology [address] [place] [address] Phone: tel: fax: Referral ID Status Reason Start Date Expiration Date Visits Re quested Visits Authorized [id number] Closed 11/10/2017 05/22/2019 1 1 Encounter Details Date Type Department Care Team (Latest Contact Info) Description 11/20/2017 3:00 PM CDT Ancillary Procedure [facility] Medical [facility] Cardiology [address] [place] [phone] Bicuspid aortic valve; H/O mechanical aortic valve replacement Social History Tobacco Use Types Packs/Day Years Used Date Smoking Tobacco: Never Smokeless Tobacco: Never Alcohol Use Standard Drinks/Week Comments Yes 1 (1 standard drink = 0.6 oz pur e alcohol) Comments Unknown Sex and Gender Information Value Date Recorded Sex Assigned at Not on file Legal Sex Female 8:13 AM HUMAN FACTORS ERGONOMIST Gender Identity Female 06/01/2020 9:42 PM HUMAN FACTORS ERGONOMIST Sexual Orientation Straight 06/01/2020 9: 42 PM HUMAN FACTORS ERGONOMIST documented as of this encounter Last Filed [...] PM CDT [facility] [address] [facility] [address] [id number] [address] [facility] [address] [place], [place] [address] P:[phone] P:[phone] Echocardiographic Report Patient Name: YESSY NIXON : 1955 Study Date: 11/20/2017 12:28:34 PM Gender: F Tech: Location: [place] Ref.Physician: LOGAN Height(Cm): 160 BSA: 1.62 Weight(Kg): [...] Site: Exam was interpreted at [facility]. Left Ventricle: Normal left ventricular systolic [...] MD - 11/20/2017 [facility] [facility] [address] [address] [address] [facility] [address] [place], [place] [address] P:[phone] P:[phone] Echocardiographic Report Patient Name: YESSY NIXONPatient ID: [id number] : [id number] Date: 11/20/2017 12:28:34 PM Gender: FAccession #: [id number] Tech: Location: [place] Ref.Physician: Carrilloight(Cm): 160 BSA: 1.62Weight(Kg): 59.88 Heart [...] 2.70 - 3.80 ] cm MV Decel [id number] [ 150 - 200 ] msec AoR [...] Site: Exam was interpreted at [facility]. Left Ventricle: Normal left ventricular systolic [...]
--- OUTSIDE RECORDS SUMMARY | 2024-04-01 12:11 | XMS_ITS | Encounter Summary ---
Author Organization [facility] Address [address] [facility] [address] [place] [address] Care Team Providers Care Territory Representative Name Role Phone Unavailable Primary Care Provider Unavailabl e Encounter Details Date Type Department Care Team (Latest Contact Info) Description 08/12/2017 Anticoagulation Visit [facility] [address] [place] [address] Bindu Gaines MD [address] [facility] [address] [place] [address] H/O mechanical aortic valve replacement; [facility] current use of anticoagulant therapy Social History Tobacco Use Types Packs/Day Years Used Date Smoking Tobacco: Never Smokeless Tobacco: Never Alcohol Use Standard Drinks/Week Comments Yes 1 (1 standard drink = 0.6 oz pur e alcohol) Comments Unknown Sex and Gender Information Value Date Recorded Sex Assigned at Not on file Legal Sex Female 8:13 AM SUPERVISOR NATURAL GAS PLANT Gender Identity Female 06/01/2020 9:42 PM SUPERVISOR NATURAL GAS PLANT Sexual Orientation Straight 06/01/2020 9: 42 PM SUPERVISOR NATURAL GAS PLANT documented as of this encounter Plan of [...]
--- OUTSIDE RECORDS SUMMARY | 2024-04-01 12:11 | XMS_ITS | Encounter Summary ---
Author Organization [facility] Address [address] [facility] [address] [place] [address] Care Team Providers Care Solid Die Cutter Name Role Phone Unavailable Primary Care Provider Unavailabl e Encounter Details Date Type Department Care Team (Latest Contact Info) Description 10/09/2017 Anticoagulation Visit [facility] [address] [place] [address] Bindu Gaines MD [address] [place] [address] H/O mechanical aortic valve replacement; nursing home current use of anticoagulant therapy Social History Tobacco Use Types Packs/Day Years Used Date Smoking Tobacco: Never Smokeless Tobacco: Never Alcohol Use Standard Drinks/Week Comments Yes 1 (1 standard drink = 0.6 oz pur e alcohol) Comments Unknown Sex and Gender Information Value Date Recorded Sex Assigned at Not on file Legal Sex Female 8:13 AM RN FIRST ASSISTANT Gender Identity Female 06/01/2020 9:42 PM RN FIRST ASSISTANT Sexual Orientation Straight 06/01/2020 9: 42 PM RN FIRST ASSISTANT documented as of this encounter Plan [...] Diagnoses Diagnosis H/O mechanical aortic valve replacement 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
--- OUTSIDE RECORDS SUMMARY | 2024-04-01 12:11 | XMS_ITS | Encounter Summary ---
Author Organization [facility] Address [address] [facility] [address] [place] [address] Care Team Providers Care Bilingual Inside Sales Representative Name Role Phone Unavailable Primary Care Provider Unavailabl e Encounter Details Date Type Department Care Team (Latest Contact Info) Description 04/17/2017 Anticoagulation Visit [facility] [address] [facility] [address], [place] [address] Bindu Gaines MD [address] [facility] 102 [place] [address] H/O mechanical aortic valve replacement; [...] on file Legal Sex Female 8:13 AM NECK BAND OPERATOR Gender Identity Female 06/01/2020 9:42 PM NECK BAND OPERATOR Sexual Orientation Straight 06/01/2020 9: 42 PM NECK BAND OPERATOR documented as of this encounter Plan [...]
--- OUTSIDE RECORDS SUMMARY | 2024-04-01 12:11 | XMS_ITS | Encounter Summary ---
Author Organization [facility] Address [address] [facility] [address] [place] [address] Care Team Providers Care Commercial Green Retrofit Architect Name Role Phone Unavailable Primary Care Provider Unavailabl e Encounter Details Date Type Department Care Team (Latest Contact Info) Description 04/21/2018 Anticoagulation Visit [facility] [address] [facility] [address], [place] [address] Bindu Gaines MD [address] [address] H/O mechanical aortic valve replacement; halfway current use of anticoagulant therapy Social History Tobacco Use Types Packs/Day Years Used Date Smoking Tobacco: Never Smokeless Tobacco: Never Alcohol Use Standard Drinks/Week Comments Yes 1 (1 standard drink = 0.6 oz pur e alcohol) Comments Unknown Sex and Gender Information Value Date Recorded Sex Assigned at Not on file Legal Sex Female 8:13 AM AIR TECHNICIAN Gender Identity Female 06/01/2020 9:42 PM AIR TECHNICIAN Sexual Orientation Straight 06/01/2020 9: 42 PM AIR TECHNICIAN documented as of this encounter Plan of Treatment Not on file documented as of this encounter Visit Diagnoses Diagnosis H/O mechanical aortic valve replacement halfway current 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
--- OUTSIDE RECORDS SUMMARY | 2024-04-01 12:11 | XMS_ITS | Encounter Summary ---
Author Organization [facility] Address [address] [facility] [address] [place] [address] Care Team Providers Care Cellar Worker Name Role Phone Unavailable Primary Care Provider Unavailabl e Encounter Details Date Type Department Care Team (Late st Contact Info) Description 11/23/2017 Telephone [facility] [address] [facility] [address] [place] [address] Bindu Gaines MD [address] [address] Social History Tobacco Use Types Packs/Day Years Used Date Smoking Tobacco: Never Smokeless Tobacco: Never Alcohol Use Standard Drinks/Week Comments Yes 1 (1 standard drink = 0.6 oz pur e alcohol) Comments Unknown Sex and Gender Information Value Date Recorded Sex Assigned at Not on file Legal Sex Female 8:13 AM INSOLE PRESSER Gender Identity Female 06/01/2020 9:42 PM INSOLE PRESSER Sexual Orientation Straight 06/01/2020 9: 42 PM INSOLE PRESSER documented as of this encounter Miscellaneous Notes [...]
--- OUTSIDE RECORDS SUMMARY | 2024-04-01 12:11 | XMS_ITS | Encounter Summary ---
Author Organization [facility] Address [address] [facility] [address] [place] [address] Care Team Providers Care Actuarial Technician Name Role Phone Unavailable Primary Care Provider Unavailabl e Encounter Details Date Type Department Care Team (Latest Contact Info) Description 12/11/2017 Anticoagulation Visit [facility] [address] [place] [address] Bindu Gaines MD [address] [place] [address] H/O mechanical aortic valve replacement; half-way current use of anticoagulant therapy Social History Tobacco Use Types Packs/Day Years Used Date Smoking Tobacco: Never Smokeless Tobacco: Never Alcohol Use Standard Drinks/Week Comments Yes 1 (1 standard drink = 0.6 oz pur e alcohol) Comments Unknown Sex and Gender Information Value Date Recorded Sex Assigned at Not on file Legal Sex Female 8:13 AM TOOL CRIB MANAGER Gender Identity Female 06/01/2020 9:42 PM TOOL CRIB MANAGER Sexual Orientation Straight 06/01/2020 9: 42 PM TOOL CRIB MANAGER documented as of this encounter Plan [...] Diagnosis H/O mechanical aortic valve replacement 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
--- OUTSIDE RECORDS SUMMARY | 2024-04-01 12:11 | XMS_ITS | Encounter Summary ---
Author Organization [facility] Address [address] [facility] [address] [place] [address] Care Team Providers Care Geophysical Prospecting Permit Agent Name Role Phone Unavailable Primary Care Provider Unavailabl e Encounter Details Date Type Department Care Team (Latest Contact Info) Description 10/23/2017 Anticoagulation Visit [facility] [address] [place] [address] Bindu Gaines MD [address] [facility] [address] [place] [address] H/O mechanical aortic valve replacement; halfway current use of anticoagulant therapy Social History Tobacco Use Types Packs/Day Years Used Date Smoking Tobacco: Never Smokeless Tobacco: Never Alcohol Use Standard Drinks/Week Comments Yes 1 (1 standard drink = 0.6 oz pur e alcohol) Comments Unknown Sex and Gender Information Value Date Recorded Sex Assigned at Not on file Legal Sex Female 8:13 AM SLIDE FORMING MACHINE OPERATOR Gender Identity Female 06/01/2020 9:42 PM SLIDE FORMING MACHINE OPERATOR Sexual Orientation Straight 06/01/2020 9: 42 PM SLIDE FORMING MACHINE OPERATOR documented as of this encounter [...] Diagnoses Diagnosis H/O mechanical aortic valve replacement 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
--- OUTSIDE RECORDS SUMMARY | 2024-04-01 12:11 | XMS_ITS | Encounter Summary ---
Author Organization [facility] Address [address] [facility] [address] [place] [address] Care Team Providers Care Route Process Administrator Name Role Phone Unavailable Primary Care Provider Unavailabl e Encounter Details Date Type Department Care Team (Late st Contact Info) Description 05/27/2017 Telephone [facility] [address] [facility] [address] [place] [address] Bindu Gaines MD [address] [facility] 102 [place] [address] Social History Tobacco Use Types Packs/Day Years Used Date Smoking Tobacco: Never Smokeless Tobacco: Never Alcohol Use Standard Drinks/Week Comments Yes 1 (1 standard drink = 0.6 oz pur e alcohol) Comments Unknown Sex and Gender Information Value Date Recorded Sex Assigned at Not on file Legal Sex Female 8:13 AM INSIDE PLANT SUPERVISOR Gender Identity Female 06/01/2020 9:42 PM INSIDE PLANT SUPERVISOR Sexual Orientation Straight 06/01/2020 9: 42 PM INSIDE PLANT SUPERVISOR documented as of this encounter Miscellaneous Notes * Telephone Encounter - Suzanne Germain RN - 05/27/2017 11:40 AM CST Spoke with pt, her INR last week was 3.2,so she will take 2-3 days of clindamycin and then take onetime dose of warfarin 2.5mg , then resume 5 mg daily. And check INR in 1 week. DE PLANT SUPERVISOR * Telephone Encounter - Suzanne Germain RN - 05/27/2017 10:16 AM CST LMTC, just ask to speak to a nurse. DE PLANT SUPERVISOR documented in this encounter Plan of Treatment Not on file documented as of this encounter Visit Diagnoses Not on filedocumented in this encounter
--- OUTSIDE RECORDS SUMMARY | 2024-04-01 12:12 | XMS_ITS | Encounter Summary ---
Author Organization [facility] Address [address] [facility] [address] [place] [address] Care Team Providers Care Site Identification Specialist Name Role Phone Unavailable Primary Care Provider Unavailabl e Encounter Details Date Type Department Care Team (Latest Contact Info) Description 01/12/2017 Anticoagulation Visit [facility] [address] [place] [address] Bindu Gaines MD [address] [place] [address] H/O mechanical aortic valve replacement; half-way current use of anticoagulant therapy Social History Tobacco Use Types Packs/Day Years Used Date Smoking Tobacco: Never Smokeless Tobacco: Never Alcohol Use Standard Drinks/Week Comments Yes 1 (1 standard drink = 0.6 oz pur e alcohol) Comments Unknown Sex and Gender Information Value Date Recorded Sex Assigned at Not on file Legal Sex Female 8:13 AM PATTERN MECHANIC Gender Identity Female 06/01/2020 9:42 PM PATTERN MECHANIC Sexual Orientation Straight 06/01/2020 9: 42 PM PATTERN MECHANIC documented as of this encounter Plan [...] Diagnoses Diagnosis H/O mechanical aortic valve replacement 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
--- OUTSIDE RECORDS SUMMARY | 2024-04-01 12:12 | XMS_ITS | Encounter Summary ---
Author Organization [facility] Care Team Providers Care Speech Correction Assistant Name Role Phone Unavailable Primary Care Provider Unavailabl e Encounter Details Date Type Department Care Team (Latest Contact Info) Description 11/06/2008 6:16 AM CDT - 11/10/2008 10:34 AM CDT [facility] [address] [facility] [address] [place] [address] Aortic valve disorder; Congenital insufficiency of aortic [...] on file Legal Sex Female 8:13 AM ENGINEERING TECHNOLOGY INSTRUCTOR Gender Identity Female 06/01/2020 9:42 PM ENGINEERING TECHNOLOGY INSTRUCTOR Sexual Orientation Straight 06/01/2020 9: 42 PM ENGINEERING TECHNOLOGY INSTRUCTOR documented as of this encounter Plan [...]
--- OUTSIDE RECORDS SUMMARY | 2024-04-01 12:12 | XMS_ITS | Encounter Summary ---
Author Organization [facility] Address [address] [facility] [address] [place] [address] Care Team Providers Care Detonator Assembler Name Role Phone Unavailable Primary Care Provider Unavailabl e Encounter Details Date Type Department Care Team (Latest Contact Info) Description 04/08/2017 Anticoagulation Visit [facility] [address] [place] [address] Bindu Gaines MD [address] [facility] [address] [place] [address] H/O mechanical aortic valve replacement; custodial current use of anticoagulant therapy Social History Tobacco Use Types Packs/Day Years Used Date Smoking Tobacco: Never Smokeless Tobacco: Never Alcohol Use Standard Drinks/Week Comments Yes 1 (1 standard drink = 0.6 oz pur e alcohol) Comments Unknown Sex and Gender Information Value Date Recorded Sex Assigned at Not on file Legal Sex Female 8:13 AM BIN OPERATOR Gender Identity Female 06/01/2020 9:42 PM BIN OPERATOR Sexual Orientation Straight 06/01/2020 9: 42 PM BIN OPERATOR documented as of this encounter Plan [...]
--- OUTSIDE RECORDS SUMMARY | 2024-04-01 12:12 | XMS_ITS | Encounter Summary ---
Author Organization [facility] Address [address] [facility] [address] [place] [address] Care Team Providers Care Forging Operator Name Role Phone Unavailable Primary Care Provider Unavailabl e Encounter Details Date Type Department Care Team (Late st Contact Info) Description 02/24/2017 Telephone [facility] [address] [place] [address] Bindu Gaines MD [address] [facility] 102 [place] [address] Social History Tobacco Use Types Packs/Day Years Used Date Smoking Tobacco: Never Smokeless Tobacco: Never Alcohol Use Standard Drinks/Week Comments Yes 1 (1 standard drink = 0.6 oz pur e alcohol) Comments Unknown Sex and Gender Information Value Date Recorded Sex Assigned at Not on file Legal Sex Female 8:13 AM MILLINERY BLOCKER Gender Identity Female 06/01/2020 9:42 PM MILLINERY BLOCKER Sexual Orientation Straight 06/01/2020 9: 42 PM MILLINERY BLOCKER documented as of this encounter Miscellaneous Notes * Telephone Encounter - Marialuisa Fagan RN - 02/24/2017 2:44 PM MILLINERY BLOCKER Faxed standing order per request INERY BLOCKER documented in this encounter Plan of Treatment Not on file documented as of this encounter Visit Diagnoses Not on filedocumented in this encounter
--- OUTSIDE RECORDS SUMMARY | 2024-04-01 12:12 | XMS_ITS | Encounter Summary ---
Author Organization [facility] Address [address] [facility] [address] [place] [address] Care Team Providers Care Line Maintainer Section Name Role Phone Unavailable Primary Care Provider Unavailabl e Encounter Details Date Type Department Care Team (Late st Contact Info) Description 10/16/2016 Orders Only [facility] [address] [facility] [address], [place] [address] Bindu Gaines MD [address] [facility] 102 [place] [address] Social History Tobacco Use Types Packs/Day Years Used Date Smoking Tobacco: Never Assessed Alcohol Use Standard Drinks/Week Comments Yes 0 (1 standard drink = 0.6 oz pur e alcohol) Comments Unknown Sex and Gender Information Value Date Recorded Sex Assigned at Not on file Legal Sex Female 8:13 AM EDITING INTERN Gender Identity Female 06/01/2020 9:42 PM EDITING INTERN Sexual Orientation Straight 06/01/2020 9: 42 PM EDITING INTERN documented as of this encounter Plan [...] more information on this test, go to: http://education.Etece/faq/JZQ088 ? Your request to have a duplicate copy faxed has been acknowledged. ?Queued to: ??[id number] 10/16/2016 3:59 PM CDT 10/16/2016 3:59 PM CDT Narrative [facility] - 10/17/2016 7:39 AM CDT FASTING:NO Resulting Agency Comment Performing Organization Information: ?Site ID: [id number] ?Name: Tamica Cooper ?Address: [address] [address] ?Director: Sal aJson D.O. MPH us Bindu Gaines MD LAB BLOOD ORDERABLES Final Result DEJA Fofana documented in this encounter Visit Diagnoses Not on filedocumented in this encounter
--- OUTSIDE RECORDS SUMMARY | 2024-04-01 12:12 | XMS_ITS | Encounter Summary ---
Author Organization [facility] Address [address] [facility] [address] [place] [address] Care Team Providers Care Proof Press Operator Name Role Phone Unavailable Primary Care Provider Unavailabl e Encounter Details Date Type Department Care Team (Late st Contact Info) Description 10/30/2016 Orders Only [facility] [address] [facility] [address], [place] [address] Bindu Gaines MD [address] [facility] 102 [place] [address] Social History Tobacco Use Types Packs/Day Years Used Date Smoking Tobacco: Never Smokeless Tobacco: Never Alcohol Use Standard Drinks/Week Comments Yes 1 (1 standard drink = 0.6 oz pur e alcohol) Comments Unknown Sex and Gender Information Value Date Recorded Sex Assigned at Not on file Legal Sex Female 8:13 AM BEACH EXPERT Gender Identity Female 06/01/2020 9:42 PM BEACH EXPERT Sexual Orientation Straight 06/01/2020 9: 42 PM BEACH EXPERT documented as of this encounter Plan [...] more information on this test, go to: http://education.CVN Networks/faq/UXC562 ? Your request to have a duplicate copy faxed has been acknowledged. ?Queued to: ??[id number] 10/30/2016 3:51 PM CDT 10/30/2016 3:52 PM CDT Narrative Resulting Agency Comment Performing Organization Information: ?Site ID: [id number] ?Name: [facility] ?Address: [address] [place] [address] [place] [address] ?Director: Sal Jason D.O., MPH us Bindu Gaines MD LAB BLOOD ORDERABLES Final Result [facility] DEJA Jean documented in this encounter Visit Diagnoses Not on filedocumented in this encounter
--- OUTSIDE RECORDS SUMMARY | 2024-04-01 12:12 | XMS_ITS | Encounter Summary ---
Author Organization [facility] Address [address] [facility] [address] [place] [address] Care Team Providers Care Petrographer Name Role Phone Unavailable Primary Care Provider Unavailabl e Encounter Details Date Type Department Care Team (Late st Contact Info) Description 01/10/2017 Orders Only [facility] [address] [facility] [address], [place] [address] Bindu Gaines MD [address] [facility] 102 [place] [address] Social History Tobacco Use Types Packs/Day Years Used Date Smoking Tobacco: Never Smokeless Tobacco: Never Alcohol Use Standard Drinks/Week Comments Yes 1 (1 standard drink = 0.6 oz pur e alcohol) Comments Unknown Sex and Gender Information Value Date Recorded Sex Assigned at Not on file Legal Sex Female 8:13 AM AFFILIATE MARKETING COORDINATOR Gender Identity Female 06/01/2020 9:42 PM AFFILIATE MARKETING COORDINATOR Sexual Orientation Straight 06/01/2020 9: 42 PM AFFILIATE MARKETING COORDINATOR documented as of this encounter Plan [...] more information on this test, go to: http://education.Collaborate Cloud/faq/LNY655 ? Your request to have a duplicate copy faxed has been acknowledged. ?Queued to: ??[id number] 01/10/2017 7:19 AM CDT 01/10/2017 7:19 AM CDT Narrative [facility] - 01/11/2017 7:38 AM CDT FASTING:NO Resulting Agency Comment Performing Organization Information: ?Site ID: [place] ?Name: Tamica Cooper ?[address] [address] ?Director: Sal Jason D.O., MPH us Bindu Gaines MD LAB BLOOD ORDERABLES Final Result DEJA Fofana documented in this encounter Visit Diagnoses Not on filedocumented in this encounter
--- OUTSIDE RECORDS SUMMARY | 2024-04-01 12:12 | XMS_ITS | Encounter Summary ---
Author Organization [facility] Address [address] [facility] [address] [place] [address] Care Team Providers Care Manager Audit Name Role Phone Unavailable Primary Care Provider Unavailabl e Reason for Visit * Reason Comments Valve Disorder annual f/u Encounter Details Date Type Department Care Team (Latest Contact Info) Description 10/21/2016 9:00 AM CDT Office Visit [facility] [address] [facility] 102 [place] [address] Bindu Gaines MD [address] [facility] 102 [place] [address] H/O mechanical aortic valve replacement (Primary Dx); Hypercholesteremia; S/P aortic valve replacement with bioprosthetic valve; History of anticoagulant therapy; Hypercholesterolemia; Bicuspid aortic valve; Multiple-type hyperlipidemia; long term acute care registered nurse current use of anticoagulant therapy Social History Tobacco Use Types Packs/Day Years Used Date Smoking Tobacco: Never Smokeless Tobacco: Never Alcohol Use Standard Drinks/Week Comments Yes 1 (1 standard drink = 0.6 oz pur e alcohol) Comments Unknown Sex and Gender Information Value Date Recorded Sex Assigned at Not on file Legal Sex Female 8:13 AM MEDICAL CORPS OFFICER Gender Identity Female 06/01/2020 9:42 PM MEDICAL CORPS OFFICER Sexual Orientation Straight 06/01/2020 9: 42 PM MEDICAL CORPS OFFICER documented as of this encounter Last Filed [...] Disorder (annual f/u) 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 Guthrie in 2008. [...] mmHg.] - 06/2008 3 AVR [19 mm [place] valve, Dr. Guthrie] - 10/2008 4 01/19: [...] Relation Age of Onset ??? Other Father [place] age 50, CABG; ??? Other Sister MVP; [...] side, and 2+ on the left side. Grady valve click Pulmonary/Chest: Effort normal and breath [...] Bicuspid aortic valve 7. Multiple-type hyperlipidemia 8. long term acute care registered nurse current use of anticoagulant therapy Other orders [...] valve Multiple-type hyperlipidemia Other and unspecified hyperlipidemia long term acute care registered nurse current [...]
--- OUTSIDE RECORDS SUMMARY | 2024-04-01 12:12 | XMS_ITS | Encounter Summary ---
Author Organization [facility] Address [address] [facility] [address] [place] [address] Care Team Providers Care Electronic Prepress Technician Name Role Phone Unavailable Primary Care Provider Unavailabl e Encounter Details Date Type Department Care Team (Late st Contact Info) Description 04/08/2017 Telephone [facility] [address] [facility] [address] [address] Bindu Gaines MD [address] [place] [address] Social History Tobacco Use Types Packs/Day Years Used Date Smoking Tobacco: Never Smokeless Tobacco: Never Alcohol Use Standard Drinks/Week Comments Yes 1 (1 standard drink = 0.6 oz pur e alcohol) Comments Unknown Sex and Gender Information Value Date Recorded Sex Assigned at Not on file Legal Sex Female 8:13 AM DEPARTMENT SUPERVISOR Gender Identity Female 06/01/2020 9:42 PM DEPARTMENT SUPERVISOR Sexual Orientation Straight 06/01/2020 9: 42 PM DEPARTMENT SUPERVISOR documented as of this encounter Miscellaneous Notes * Telephone Encounter - Suzanne Germain RN - 04/08/2017 9:16 AM CST See flow sheet RTMENT SUPERVISOR documented in this encounter Plan of Treatment Not on file documented as of this encounter Visit Diagnoses Not on filedocumented in this encounter
--- OUTSIDE RECORDS SUMMARY | 2024-04-01 12:12 | XMS_ITS | Encounter Summary ---
Author Organization [facility] Address [address] [facility] [address] [place] [address] Care Team Providers Care Customer Response Representative Name Role Phone Unavailable Primary Care Provider Unavailabl e Encounter Details Date Type Department Care Team (Latest Contact Info) Description 02/05/2017 Anticoagulation Visit [facility] [address] [facility] [address], [place] [address] Bindu Gaines MD [address] [facility] 102 [place] [address] H/O mechanical aortic valve replacement; [facility] current use of anticoagulant therapy Social History Tobacco Use Types Packs/Day Years Used Date Smoking Tobacco: Never Smokeless Tobacco: Never Alcohol Use Standard Drinks/Week Comments Yes 1 (1 standard drink = 0.6 oz pur e alcohol) Comments Unknown Sex and Gender Information Value Date Recorded Sex Assigned at Not on file Legal Sex Female 8:13 AM AIR POLLUTION SPECIALIST Gender Identity Female 06/01/2020 9:42 PM AIR POLLUTION SPECIALIST Sexual Orientation Straight 06/01/2020 9: 42 PM AIR POLLUTION SPECIALIST documented as of this encounter Plan [...]
--- OUTSIDE RECORDS SUMMARY | 2024-04-01 12:12 | XMS_ITS | Encounter Summary ---
Author Organization [facility] Address [address] [facility] [address] [place] [address] Care Team Providers Care Fretted String Instrument Repairer Name Role Phone Unavailable Primary Care Provider Unavailabl e Encounter Details Date Type Department Care Team (Late st Contact Info) Description 12/04/2016 Orders Only [facility] [address] [facility] [address], [place] [address] Bindu Gaines MD [address] [facility] 102 [place] [address] Social History Tobacco Use Types Packs/Day Years Used Date Smoking Tobacco: Never Smokeless Tobacco: Never Alcohol Use Standard Drinks/Week Comments Yes 1 (1 standard drink = 0.6 oz pur e alcohol) Comments Unknown Sex and Gender Information Value Date Recorded Sex Assigned at Not on file Legal Sex Female 8:13 AM CHAUFFEUR MOTORBUS Gender Identity Female 06/01/2020 9:42 PM CHAUFFEUR MOTORBUS Sexual Orientation Straight 06/01/2020 9: 42 PM CHAUFFEUR MOTORBUS documented as of this encounter Plan of [...] more information on this test, go to: http://education.Wochacha/faq/TJV765 ? Your request to have a duplicate copy faxed has been acknowledged. ?Queued to: ??[id number] 12/04/2016 4:10 PM CDT 12/04/2016 4:10 PM CDT Narrative Resulting Agency Comment Performing Organization Information: ?Site ID: [place] ?Name: [facility] ?Address: [address] [place] [address] [place] [address] ?Director: Sal Jason D.O., MPH us Bindu Gaines MD LAB BLOOD ORDERABLES Final Result [facility] DEJA Jean documented in this encounter Visit Diagnoses Not on filedocumented in this encounter
--- OUTSIDE RECORDS SUMMARY | 2024-04-01 12:12 | XMS_ITS | Encounter Summary ---
Author Organization [facility] Address [address] [facility] [address] [place] [address] Care Team Providers Care Director Report Name Role Phone Unavailable Primary Care Provider Unavailabl e Encounter Details Date Type Department Care Team (Late st Contact Info) Description 09/30/2016 Orders Only [facility] [address] [facility] [address] [address] Bindu Gaines MD [address] [facility] 102 [place] [address] Social History Tobacco Use Types Packs/Day Years Used Date Smoking Tobacco: Never Assessed Alcohol Use Standard Drinks/Week Comments Yes 0 (1 standard drink = 0.6 oz pur e alcohol) Comments Unknown Sex and Gender Information Value Date Recorded Sex Assigned at Not on file Legal Sex Female 8:13 AM BASTER HAND Gender Identity Female 06/01/2020 9:42 PM BASTER HAND Sexual Orientation Straight 06/01/2020 9: 42 PM BASTER HAND documented as of this encounter Plan of [...] more information on this test, go to: http://education.Fishki/faq/JVG092 ? Your request to have a duplicate copy faxed has been acknowledged. ?Queued to: ??[id number] 09/30/2016 7:24 AM CDT 09/30/2016 7:24 AM CDT Narrative Resulting Agency Comment Performing Organization Information: ?Site ID: ?Name: [facility] ?Address: [facility] Administration [place] [address] ?Director: Adilson Hameed MD us Bindu Gaines MD LAB BLOOD ORDERABLES Final Result [facility] [place] Dhillon documented in this encounter Visit Diagnoses Not on filedocumented in this encounter
--- OUTSIDE RECORDS SUMMARY | 2024-04-01 12:12 | XMS_ITS | Encounter Summary ---
Author Organization [facility] Care Team Providers Care Millwright Apprentice Name Role Phone Unavailable Primary Care Provider Unavailabl e Encounter Details Date Type Department Care Team (Latest Contact Info) Description 02/03/2011 - 02/03/2011 11:59 PM CDT Hospital Encounter [facility] Venessa, [place] [address] [place] [address] Osteoarthrosis involving lower leg Social History Tobacco Use Types Packs/Day Years Used Date Smoking Tobacco: Never Assessed Comments Unknown Sex and Gender Information Value Date Recorded Sex Assigned at Not on file Legal Sex Female 8:13 AM CAR SHAGGER Gender Identity Female 06/01/2020 9:42 PM CAR SHAGGER Sexual Orientation Straight 06/01/2020 9: 42 PM CAR SHAGGER documented as of this encounter Medications at Time of Discharge aspirin 81 mg tablet Take one by mouth one time per day 0 0 12/04/2008 08/06/2023 warfarin (COUMADIN) 1 mg tablet Take as directed 30 6 12/04/2008 11/17/2018 warfarin (COUMADIN) 5 mg tablet TAKE ONE TABLET BY MOUTH ONCE [facility] 1 01/14/2010 10/20/2016 documented as of this encounter Plan of Treatment Not on file documented as of this encounter Visit Diagnoses Diagnosis Osteoarthrosis involving lower leg documented in this encounter
--- OUTSIDE RECORDS SUMMARY | 2024-04-01 12:12 | XMS_ITS | Encounter Summary ---
Author Organization [facility] Address [address] [facility] [address] [place] [address] Care Team Providers Care Machine Lacer Name Role Phone Unavailable Primary Care Provider Unavailabl e Encounter Details Date Type Department Care Team (Late st Contact Info) Description 11/20/2016 Orders Only [facility] [address] [facility] [address], [place] [address] Bindu Gaines MD [address] [facility] 102 [place] [address] Social History Tobacco Use Types Packs/Day Years Used Date Smoking Tobacco: Never Smokeless Tobacco: Never Alcohol Use Standard Drinks/Week Comments Yes 1 (1 standard drink = 0.6 oz pur e alcohol) Comments Unknown Sex and Gender Information Value Date Recorded Sex Assigned at Not on file Legal Sex Female 8:13 AM TOW BOAT CAPTAIN Gender Identity Female 06/01/2020 9:42 PM TOW BOAT CAPTAIN Sexual Orientation Straight 06/01/2020 9: 42 PM TOW BOAT CAPTAIN documented as of this encounter Plan [...] more information on this test, go to: http://education.Shift Network/faq/DAF617 ? Your request to have a duplicate copy faxed has been acknowledged. ?Queued to: ??[id number] 11/20/2016 7:25 AM CDT 11/20/2016 7:25 AM CDT Narrative Resulting Agency Comment Performing Organization Information: ?Site ID: ?Name: [facility] ?Address: Pending [facility] to [facility] Administration [place] [phone] ?Director: Adilson Hameed MD us Bindu Gaines MD LAB BLOOD ORDERABLES Final Result [facility] [place] Dhillon documented in this encounter Visit Diagnoses Not on filedocumented in this encounter
--- OUTSIDE RECORDS SUMMARY | 2024-04-01 12:12 | XMS_ITS | Encounter Summary ---
Author Organization [facility] Address [address] [facility] [address] [place] [address] Care Team Providers Care Alteration Hand Name Role Phone Unavailable Primary Care Provider Unavailabl e Encounter Details Date Type Department Care Team (Late st Contact Info) Description 02/03/2017 Orders Only [facility] [address] [facility] [address] [address] Bindu Gaines MD [address] [facility] [address] [place] [address] Social History Tobacco Use Types Packs/Day Years Used Date Smoking Tobacco: Never Smokeless Tobacco: Never Alcohol Use Standard Drinks/Week Comments Yes 1 (1 standard drink = 0.6 oz pur e alcohol) Comments Unknown Sex and Gender Information Value Date Recorded Sex Assigned at Not on file Legal Sex Female 8:13 AM NUTRITION CONSULTANT Gender Identity Female 06/01/2020 9:42 PM NUTRITION CONSULTANT Sexual Orientation Straight 06/01/2020 9: 42 PM NUTRITION CONSULTANT documented as of this encounter Plan [...] more information on this test, go to: http://education.Highland Therapeutics/faq/YWN845 ? Your request to have a duplicate copy faxed has been acknowledged. ?Queued to: ??[id number] 02/03/2017 8:05 AM CDT 02/03/2017 8:06 AM CDT Narrative Resulting Agency Comment Performing Organization Information: ?Site ID: ?Name[facility] ?Address: [address] [address] [place] [address] ?Director: Adilson Hameed MD us Bindu Gaines MD LAB BLOOD ORDERABLES Final Result [facility] [place] Dhillon documented in this encounter Visit Diagnoses Not on filedocumented in this encounter
--- OUTSIDE RECORDS SUMMARY | 2024-04-01 12:12 | XMS_ITS | Encounter Summary ---
Author Organization [facility] Address [address] [facility] [address] [place] [address] Care Team Providers Care Applications Analyst Name Role Phone Unavailable Primary Care Provider Unavailabl e Encounter Details Date Type Department Care Team (Late st Contact Info) Description 01/06/2017 Orders Only [facility] [address] [facility] [address], [place] [address] Bindu Gaines MD [address] [email or web address] [address] [place] [address] Social History Tobacco Use Types Packs/Day Years Used Date Smoking Tobacco: Never Smokeless Tobacco: Never Alcohol Use Standard Drinks/Week Comments Yes 1 (1 standard drink = 0.6 oz pur e alcohol) Comments Unknown Sex and Gender Information Value Date Recorded Sex Assigned at Not on file Legal Sex Female 8:13 AM BALER Gender Identity Female 06/01/2020 9:42 PM BALER Sexual Orientation Straight 06/01/2020 9: 42 PM BALER documented as of this encounter Plan of [...] more information on this test, go to: http://education.WDFA Marketing/faq/VQE409 ? Your request to have a duplicate copy faxed has been acknowledged. ?Queued to: ??[id number] 01/06/2017 8:26 AM CDT 01/06/2017 8:26 AM CDT Narrative Resulting Agency Comment Performing Organization Information: ?Site ID: ?Name: [facility] ?Address: [facility] [place] [address] ?Director: Adilson Hameed MD us Bindu Gaines MD LAB BLOOD ORDERABLES Final Result [facility] [place] Dhillon documented in this encounter Visit Diagnoses Not on filedocumented in this encounter
--- OUTSIDE RECORDS SUMMARY | 2024-04-01 12:12 | XMS_ITS | Encounter Summary ---
Author Organization [facility] Address [address] [facility] [address] [place] [address] Care Team Providers Care Acupuncturist Name Role Phone Unavailable Primary Care Provider Unavailabl e Encounter Details Date Type Department Care Team (Late st Contact Info) Description 10/07/2016 Orders Only [facility] [address] [facility] [address], [place] [address] Bindu Gaines MD [address] [facility] 102 [place] [address] Social History Tobacco Use Types Packs/Day Years Used Date Smoking Tobacco: Never Assessed Alcohol Use Standard Drinks/Week Comments Yes 0 (1 standard drink = 0.6 oz pur e alcohol) Comments Unknown Sex and Gender Information Value Date Recorded Sex Assigned at Not on file Legal Sex Female 8:13 AM DIRECTOR OF PHYSICAL SECURITY Gender Identity Female 06/01/2020 9:42 PM DIRECTOR OF PHYSICAL SECURITY Sexual Orientation Straight 06/01/2020 9: 42 PM DIRECTOR OF PHYSICAL SECURITY documented as of this encounter Plan of [...] more information on this test, go to: http://education.Ahonya/faq/TQC838 ? Your request to have a duplicate copy faxed has been acknowledged. ?Queued to: ??[id number] 10/07/2016 7:25 AM CDT 10/07/2016 7:26 AM CDT Narrative Resulting Agency Comment Performing Organization Information: ?Site ID: ?[facility] ?Address: [facility] [address] [place] [id number] ?Director: Adilson Hameed MD us Bindu Gaines MD LAB BLOOD ORDERABLES Final Result [facility] [place] Dhillon documented in this encounter Visit Diagnoses Not on filedocumented in this encounter
--- OUTSIDE RECORDS SUMMARY | 2024-04-01 12:12 | XMS_ITS | Encounter Summary ---
Author Organization [facility] Address [address] [facility] [address] [place] [address] Care Team Providers Care Technology Training Associate Name Role Phone Unavailable Primary Care Provider Unavailabl e Reason for Visit * Reason Onset Date Comments medical question 09/25/2016 Encounter Details Date Type Department Care Team (Late st Contact Info) Description 09/25/2016 Telephone [facility] [address] [facility] [address] [facility] 102 [place] [address] Bindu Gaines MD [address] [facility] 102 [place] [address] medical question Social History Tobacco Use Types Packs/Day Years Used Date Smoking Tobacco: Never Assessed Alcohol Use Standard Drinks/Week Comments Yes 0 (1 standard drink = 0.6 oz pur e alcohol) Comments Unknown Sex and Gender Information Value Date Recorded Sex Assigned at Not on file Legal Sex Female 8:13 AM CVICU RN Gender Identity Female 06/01/2020 9:42 PM CVICU RN Sexual Orientation Straight 06/01/2020 9: 42 PM CVICU RN documented as of this encounter Miscellaneous Notes [...]
--- OUTSIDE RECORDS SUMMARY | 2024-04-01 12:12 | XMS_ITS | Encounter Summary ---
Author Organization [facility] Address [address] [facility] [address] [place] [address] Care Team Providers Care Beef Grinder Name Role Phone Unavailable Primary Care Provider Unavailabl e Reason for Visit * Reason Onset Date Comments medical question 09/24/2016 Encounter Details Date Type Department Care Team (Late st Contact Info) Description 09/24/2016 Telephone [facility] [address] [facility] 162 [facility] 102 [place] [address] Bindu Gaines MD [address] [facility] 102 [place], [place] [id number] medical question Social History Tobacco Use Types Packs/Day Years Used Date Smoking Tobacco: Never Assessed Alcohol Use Standard Drinks/Week Comments Yes 0 (1 standard drink = 0.6 oz pur e alcohol) Comments Unknown Sex and Gender Information Value Date Recorded Sex Assigned at Not on file Legal Sex Female 8:13 AM FOLDER AND NOTCHER Gender Identity Female 06/01/2020 9:42 PM FOLDER AND NOTCHER Sexual Orientation Straight 06/01/2020 9: 42 PM FOLDER AND NOTCHER documented as of this encounter Miscellaneous Notes [...]
--- OUTSIDE RECORDS SUMMARY | 2024-04-01 12:12 | XMS_ITS | Encounter Summary ---
Author Organization [facility] Address [address] [facility] [address] [place] [address] Care Team Providers Care Precision Lens Grinder Name Role Phone Unavailable Primary Care Provider Unavailabl e Encounter Details Date Type Department Care Team (Latest Contact Info) Description 12/17/2016 Anticoagulation Visit [facility] [address] [place] [address] Bindu Gaines MD [address] [facility] [address] [place] [address] H/O mechanical aortic valve replacement; long-term current use of anticoagulant therapy Social History Tobacco Use Types Packs/Day Years Used Date Smoking Tobacco: Never Smokeless Tobacco: Never Alcohol Use Standard Drinks/Week Comments Yes 1 (1 standard drink = 0.6 oz pur e alcohol) Comments Unknown Sex and Gender Information Value Date Recorded Sex Assigned at Not on file Legal Sex Female 8:13 AM PRODUCT MARKETING INTERN Gender Identity Female 06/01/2020 9:42 PM PRODUCT MARKETING INTERN Sexual Orientation Straight 06/01/2020 9: 42 PM PRODUCT MARKETING INTERN documented as of this encounter Plan [...] H/O mechanical aortic valve replacement 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
--- OUTSIDE RECORDS SUMMARY | 2024-04-01 12:12 | XMS_ITS | Encounter Summary ---
Author Organization [facility] Address [address] [facility] [address] [place] [address] Care Team Providers Care Accountant Auditor Name Role Phone Unavailable Primary Care Provider Unavailabl e Reason for Visit * Reason Onset Date Comments blood test results 10/01/2016 Encounter Details Date Type Department Care Team (Late st Contact Info) Description 10/01/2016 Telephone [facility] [address] [facility] 162 [facility] 102 [place] [address] Bindu Gaines MD [address] [facility] 102 [place] [address] blood test results Social History Tobacco Use Types Packs/Day Years Used Date Smoking Tobacco: Never Assessed Alcohol Use Standard Drinks/Week Comments Yes 0 (1 standard drink = 0.6 oz pur e alcohol) Comments Unknown Sex and Gender Information Value Date Recorded Sex Assigned at Not on file Legal Sex Female 8:13 AM JET DYEING MACHINE OPERATOR Gender Identity Female 06/01/2020 9:42 PM JET DYEING MACHINE OPERATOR Sexual Orientation Straight 06/01/2020 9: 42 PM JET DYEING MACHINE OPERATOR documented as of this encounter Miscellaneous Notes * Telephone Encounter - Marialuisa Fagan RN - 10/01/2016 2:56 PM CDT Pt calling back regarding INR; will forward to [place] to address. documented in this encounter Plan of Treatment Not on file documented as of this encounter Visit Diagnoses Not on filedocumented in this encounter
--- OUTSIDE RECORDS SUMMARY | 2024-04-01 12:12 | XMS_ITS | Encounter Summary ---
Author Organization [facility] Address [address] [facility] [address] [place] [address] Care Team Providers Care Commercial Producer Name Role Phone Unavailable Primary Care Provider Unavailabl e Encounter Details Date Type Department Care Team (Late st Contact Info) Description 12/16/2016 Orders Only [facility] [address] [facility] [address], [place] [address] Bindu Gaines MD [address] [facility] 102 [place] [address] Social History Tobacco Use Types Packs/Day Years Used Date Smoking Tobacco: Never Smokeless Tobacco: Never Alcohol Use Standard Drinks/Week Comments Yes 1 (1 standard drink = 0.6 oz pur e alcohol) Comments Unknown Sex and Gender Information Value Date Recorded Sex Assigned at Not on file Legal Sex Female 8:13 AM ELECTRONICS SYSTEM MECHANIC Gender Identity Female 06/01/2020 9:42 PM ELECTRONICS SYSTEM MECHANIC Sexual Orientation Straight 06/01/2020 9: 42 PM ELECTRONICS SYSTEM MECHANIC documented as of this encounter Plan [...] more information on this test, go to: http://education.LoudCloud Systems/faq/ELP554 ? Your request to have a duplicate copy faxed has been acknowledged. ?Queued to: ??[id number] 12/16/2016 10:3 5 AM CDT 12/16/2016 10:35 AM CDT Narrative Resulting Agency Comment Performing Organization Information: ?Site ID: ?Name: [facility] ?Address: [address] [id number] ?Director: Adilson Hameed MD us Bindu Gaines MD LAB BLOOD ORDERABLES Final Result [facility] [place] Dhillon documented in this encounter Visit Diagnoses Not on filedocumented in this encounter
--- OUTSIDE RECORDS SUMMARY | 2024-04-01 12:12 | XMS_ITS | Encounter Summary ---
Author Organization [facility] Address [address] [facility] [address] [place] [address] Care Team Providers Care Radiation Oncology Manager Name Role Phone Unavailable Primary Care Provider Unavailabl e Encounter Details Date Type Department Care Team (Late st Contact Info) Description 09/13/2016 Orders Only [facility] [address] [facility] [address], [place] [address] Bindu Gaines MD [address] [facility] 102 [place] [address] Social History Tobacco Use Types Packs/Day Years Used Date Smoking Tobacco: Never Assessed Alcohol Use Standard Drinks/Week Comments Yes 0 (1 standard drink = 0.6 oz pur e alcohol) Comments Unknown Sex and Gender Information Value Date Recorded Sex Assigned at Not on file Legal Sex Female 8:13 AM SLICING MACHINE OPERATOR/TENDER Gender Identity Female 06/01/2020 9:42 PM SLICING MACHINE OPERATOR/TENDER Sexual Orientation Straight 06/01/2020 9: 42 PM SLICING MACHINE OPERATOR/TENDER documented as of this encounter Plan of [...] more information on this test, go to: http://education.Dragon Innovation/faq/QSU064 ? Your request to have a duplicate copy faxed has been acknowledged. ?Queued to: ??[id number] 09/13/2016 9:12 AM CDT 09/13/2016 9:12 AM CDT Narrative Resulting Agency Comment Performing Organization Information: ?Site ID: [place] ?Name: [facility] ?Address: [address] [place] [address] [place] [address] ?Director: Sal Jason D.O., MPH us Bindu Gaines MD LAB BLOOD ORDERABLES Final Result [facility] [place] Jean documented in this encounter Visit Diagnoses Not on filedocumented in this encounter
--- OUTSIDE RECORDS SUMMARY | 2024-04-01 12:12 | XMS_ITS | Encounter Summary ---
Author Organization [facility] Address [address] [facility] [address] [place] [address] Care Team Providers Care Incident Response Coordinator Name Role Phone Unavailable Primary Care Provider Unavailabl e Encounter Details Date Type Department Care Team (Latest Contact Info) Description 10/17/2016 Anticoagulation Visit [facility] [address] [place] [address] Bindu Gaines MD [address] [facility] [address] [place] [address] [place] [address] computer terminal operator current use of anticoagulant therapy Social History Tobacco Use Types Packs/Day Years Used Date Smoking Tobacco: Never Assessed Alcohol Use Standard Drinks/Week Comments Yes 0 (1 standard drink = 0.6 oz pur e alcohol) Comments Unknown Sex and Gender Information Value Date Recorded Sex Assigned at Not on file Legal Sex Female 8:13 AM MANAGER OF DIGITAL Gender Identity Female 06/01/2020 9:42 PM MANAGER OF DIGITAL Sexual Orientation Straight 06/01/2020 9: 42 PM MANAGER OF DIGITAL documented as of this encounter Plan of [...] documented in this encounter Visit Diagnoses Diagnosis 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
--- OUTSIDE RECORDS SUMMARY | 2024-04-01 12:12 | XMS_ITS | Encounter Summary ---
Author Organization [facility] Address [address] [facility] [address] [place] [address] Care Team Providers Care Resource Room Special Education Teacher Name Role Phone Unavailable Primary Care Provider Unavailabl e Encounter Details Date Type Department Care Team (Latest Contact Info) Description 10/08/2016 Anticoagulation Visit [facility] [address] [place] [address] Binud Gaines MD [address] [facility] [address] [place] [place] [address] rn long term care current use of anticoagulant therapy Social History Tobacco Use Types Packs/Day Years Used Date Smoking Tobacco: Never Assessed Alcohol Use Standard Drinks/Week Comments Yes 0 (1 standard drink = 0.6 oz pur e alcohol) Comments Unknown Sex and Gender Information Value Date Recorded Sex Assigned at Not on file Legal Sex Female 8:13 AM RANGE MANAGER Gender Identity Female 06/01/2020 9:42 PM RANGE MANAGER Sexual Orientation Straight 06/01/2020 9: 42 PM RANGE MANAGER documented as of this encounter Plan [...]
--- OUTSIDE RECORDS SUMMARY | 2024-04-01 12:12 | XMS_ITS | Encounter Summary ---
Author Organization [facility] Address [address] [facility] [address] [place] [address] Care Team Providers Care Metal Riveting Machine Operator Name Role Phone Unavailable Primary Care Provider Unavailabl e Encounter Details Date Type Department Care Team (Late st Contact Info) Description 01/12/2017 Telephone [facility] [address] [facility] [address], [place] [address] Bindu Gaines MD [address] [facility] 102 [place] [address] Social History Tobacco Use Types Packs/Day Years Used Date Smoking Tobacco: Never Smokeless Tobacco: Never Alcohol Use Standard Drinks/Week Comments Yes 1 (1 standard drink = 0.6 oz pur e alcohol) Comments Unknown Sex and Gender Information Value Date Recorded Sex Assigned at Not on file Legal Sex Female 8:13 AM MICROBIOLOGY LAB ASSISTANT Gender Identity Female 06/01/2020 9:42 PM MICROBIOLOGY LAB ASSISTANT Sexual Orientation Straight 06/01/2020 9: 42 PM MICROBIOLOGY LAB ASSISTANT documented as of this encounter Miscellaneous Notes * Telephone Encounter - Almaz Presley - 05/07/2017 1:20 PM CST . OBIOLOGY LAB ASSISTANT documented in this encounter Plan of Treatment Not on file documented as of this encounter Visit Diagnoses Not on filedocumented in this encounter
--- OUTSIDE RECORDS SUMMARY | 2024-04-01 12:12 | XMS_ITS | Encounter Summary ---
Author Organization [facility] Address [address] [facility] [address] [place] [address] Care Team Providers Care Merchant Patroller Name Role Phone Unavailable Primary Care Provider Unavailabl e Encounter Details Date Type Department Care Team (Latest Contact Info) Description 10/01/2016 Anticoagulation Visit [facility] [address] [facility] [address], [place] [address] Bindu Gaines MD [address] [facility] 102 [place] [address] middle or intermediate school principal current use of anticoagulant therapy Social History Tobacco Use Types Packs/Day Years Used Date Smoking Tobacco: Never Assessed Alcohol Use Standard Drinks/Week Comments Yes 0 (1 standard drink = 0.6 oz pur e alcohol) Comments Unknown Sex and Gender Information Value Date Recorded Sex Assigned at Not on file Legal Sex Female 8:13 AM REGISTERED NURSE POST PARTUM Gender Identity Female 06/01/2020 9:42 PM REGISTERED NURSE POST PARTUM Sexual Orientation Straight 06/01/2020 9: 42 PM REGISTERED NURSE POST PARTUM documented as of this encounter Plan of Treatment Not on file documented as of this encounter Visit Diagnoses Diagnosis middle or intermediate school principal current 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
--- OUTSIDE RECORDS SUMMARY | 2024-04-01 12:12 | XMS_ITS | Encounter Summary ---
Author Organization [facility] Address [address] [facility] [address] [place] [address] Care Team Providers Care Ocean Fishing Guide Name Role Phone Unavailable Primary Care Provider Unavailabl e Encounter Details Date Type Department Care Team (Latest Contact Info) Description 01/07/2017 Anticoagulation Visit [facility] [address] [place] [address] Bindu Gaines MD [address] [facility] [address] [place] [address] H/O mechanical aortic valve replacement; [facility] current use of anticoagulant therapy Social History Tobacco Use Types Packs/Day Years Used Date Smoking Tobacco: Never Smokeless Tobacco: Never Alcohol Use Standard Drinks/Week Comments Yes 1 (1 standard drink = 0.6 oz pur e alcohol) Comments Unknown Sex and Gender Information Value Date Recorded Sex Assigned at Not on file Legal Sex Female 8:13 AM ELASTIC ATTACHER ZIGZAG Gender Identity Female 06/01/2020 9:42 PM ELASTIC ATTACHER ZIGZAG Sexual Orientation Straight 06/01/2020 9: 42 PM ELASTIC ATTACHER ZIGZAG documented as of this encounter Plan of [...]
--- OUTSIDE RECORDS SUMMARY | 2024-04-01 12:12 | XMS_ITS | Encounter Summary ---
Author Organization [facility] Address [address] [facility] [address] [place] [address] Care Team Providers Care Division Operations Manager Name Role Phone Unavailable Primary Care Provider Unavailabl e Encounter Details Date Type Department Care Team (Latest Contact Info) Description 12/05/2016 Anticoagulation Visit [facility] [address] [place] [address] Bindu Gaines MD [address] [facility] [address] [place] [address] H/O mechanical aortic valve replacement; [facility] [...] on file Legal Sex Female 8:13 AM ASSOCIATE PROFESSOR OF SURGERY Gender Identity Female 06/01/2020 9:42 PM ASSOCIATE PROFESSOR OF SURGERY Sexual Orientation Straight 06/01/2020 9: 42 PM ASSOCIATE PROFESSOR OF SURGERY documented as of this encounter Plan of [...]
--- OUTSIDE RECORDS SUMMARY | 2024-04-01 12:12 | XMS_ITS | Encounter Summary ---
Author Organization [facility] Address [address] [facility] [address] [place] [address] Care Team Providers Care Certified Forklift Operator Name Role Phone Unavailable Primary Care Provider Unavailabl e Encounter Details Date Type Department Care Team (Latest Contact Info) Description 11/21/2016 Anticoagulation Visit [facility] [address] [place] [address] Bindu Gaines MD [address] [facility] [address] [place] [address] H/O mechanical aortic valve replacement; assisted current use of anticoagulant therapy Social History Tobacco Use Types Packs/Day Years Used Date Smoking Tobacco: Never Smokeless Tobacco: Never Alcohol Use Standard Drinks/Week Comments Yes 1 (1 standard drink = 0.6 oz pur e alcohol) Comments Unknown Sex and Gender Information Value Date Recorded Sex Assigned at Not on file Legal Sex Female 8:13 AM LUMBER CHAIN OFFBEARER Gender Identity Female 06/01/2020 9:42 PM LUMBER CHAIN OFFBEARER Sexual Orientation Straight 06/01/2020 9: 42 PM LUMBER CHAIN OFFBEARER documented as of this encounter Plan of [...]
--- OUTSIDE RECORDS SUMMARY | 2024-04-01 12:12 | XMS_ITS | Encounter Summary ---
Author Organization [facility] Address [address] [facility] [address] [place] [address] Care Team Providers Care Sales Exec Name Role Phone Unavailable Primary Care Provider Unavailabl e Encounter Details Date Type Department Care Team (Latest Contact Info) Description 09/15/2016 Anticoagulation Visit [facility] [address] [place] [address] Bindu Gaines MD [address] [facility] [address] [place] [address] terminal supervisor current use of anticoagulant therapy Social History Tobacco Use Types Packs/Day Years Used Date Smoking Tobacco: Never Assessed Alcohol Use Standard Drinks/Week Comments Yes 0 (1 standard drink = 0.6 oz pur e alcohol) Comments Unknown Sex and Gender Information Value Date Recorded Sex Assigned at Not on file Legal Sex Female 8:13 AM LEARNING AND DEVELOPMENT OFFICER Gender Identity Female 06/01/2020 9:42 PM LEARNING AND DEVELOPMENT OFFICER Sexual Orientation Straight 06/01/2020 9: 42 PM LEARNING AND DEVELOPMENT OFFICER documented as of this encounter Plan [...] in this encounter Visit Diagnoses Diagnosis 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
--- OUTSIDE RECORDS SUMMARY | 2024-04-01 12:12 | XMS_ITS | Encounter Summary ---
Author Organization [facility] Address [address] [facility] [address] [place] [address] Care Team Providers Care Safety And Security Officer Name Role Phone Unavailable Primary Care Provider Unavailabl e Encounter Details Date Type Department Care Team (Latest Contact Info) Description 02/25/2017 Anticoagulation Visit [facility] [address] [place] [address] Bindu Gaines MD [address] [place] [address] H/O mechanical aortic valve replacement; [facility] current use of anticoagulant therapy Social History Tobacco Use Types Packs/Day Years Used Date Smoking Tobacco: Never Smokeless Tobacco: Never Alcohol Use Standard Drinks/Week Comments Yes 1 (1 standard drink = 0.6 oz pur e alcohol) Comments Unknown Sex and Gender Information Value Date Recorded Sex Assigned at Not on file Legal Sex Female 8:13 AM TANK PUMPER Gender Identity Female 06/01/2020 9:42 PM TANK PUMPER Sexual Orientation Straight 06/01/2020 9: 42 PM TANK PUMPER documented as of this encounter Plan of Treatment Not on file documented as of this encounter Procedures Procedure Name Priority Date/Time Associated Diagnosis Comments PROTIME-INR Routine 02/24/2017 4:02 PM TANK PUMPER documented in this encounter Results * (ABNORMAL) Protime-INR (02/24/2017 4:02 PM TANK PUMPER) INR 2.20(A) 0.9 - 1.1 [facility] Blood specimen (specimen) us Historical Provider LAB BLOOD ORDERABLES Antonina hernandez Result [facility] documented in this encounter Visit Diagnoses Diagnosis H/O mechanical aortic valve replacement terminal computer 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
--- OUTSIDE RECORDS SUMMARY | 2024-04-01 12:12 | XMS_ITS | Encounter Summary ---
Author Organization [facility] Address [address] [facility] [address] [place] [address] Care Team Providers Care Customer Service Supervisor Name Role Phone Unavailable Primary Care Provider Unavailabl e Encounter Details Date Type Department Care Team (Latest Contact Info) Description 03/10/2017 Anticoagulation Visit [facility] [address] [place] [address] Bindu Gaines MD [address] [place] [address] H/O mechanical aortic valve replacement; retirement current use of anticoagulant therapy Social History Tobacco Use Types Packs/Day Years Used Date Smoking Tobacco: Never Smokeless Tobacco: Never Alcohol Use Standard Drinks/Week Comments Yes 1 (1 standard drink = 0.6 oz pur e alcohol) Comments Unknown Sex and Gender Information Value Date Recorded Sex Assigned at Not on file Legal Sex Female 8:13 AM MINE CAR REPAIRER Gender Identity Female 06/01/2020 9:42 PM MINE CAR REPAIRER Sexual Orientation Straight 06/01/2020 9: 42 PM MINE CAR REPAIRER documented as of this encounter Plan of Treatment Not on file documented as of this encounter Procedures Procedure Name Priority Date/Time Associated Diagnosis Comments PROTIME-INR Routine 03/10/2017 10:57 AM MINE CAR REPAIRER documented in this encounter Results * (ABNORMAL) Protime-INR (03/10/2017 10:57 AM MINE CAR REPAIRER) INR 2.90(A) 0.9 - 1.1 [facility] Blood specimen (specimen) us Historical Provider LAB BLOOD ORDERABLES Antonina hernandez Result [facility] documented in this encounter Visit Diagnoses Diagnosis H/O mechanical aortic valve replacement terminal gauger current 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
--- OUTSIDE RECORDS SUMMARY | 2024-04-01 12:12 | XMS_ITS | Encounter Summary ---
Author Organization [facility] Address [address] [place] [address] Care Team Providers Care Phys Therapist Name Role Phone Unavailable Primary Care Provider Unavailabl e Encounter Details Date Type Department Care Team (Late st Contact Info) Description 01/07/2017 Telephone [facility] [address] [facility] [address] [place] [phone] Bindu Gaines MD [address] [facility] [address] [place] [address] Social History Tobacco Use Types Packs/Day Years Used Date Smoking Tobacco: Never Smokeless Tobacco: Never Alcohol Use Standard Drinks/Week Comments Yes 1 (1 standard drink = 0.6 oz pur e alcohol) Comments Unknown Sex and Gender Information Value Date Recorded Sex Assigned at Not on file Legal Sex Female 8:13 AM POLISHER EYEGLASS FRAMES Gender Identity Female 06/01/2020 9:42 PM POLISHER EYEGLASS FRAMES Sexual Orientation Straight 06/01/2020 9: 42 PM POLISHER EYEGLASS FRAMES documented as of this encounter Miscellaneous Notes [...]
--- OUTSIDE RECORDS SUMMARY | 2024-04-01 12:12 | XMS_ITS | Encounter Summary ---
Author Organization [facility] Address [address] [place] [address] Care Team Providers Care Gas Fitter Apprentice Name Role Phone Unavailable Primary Care Provider Unavailabl e Encounter Details Date Type Department Care Team (Latest Contact Info) Description 10/31/2016 Anticoagulation Visit [facility] [address] [facility] [address], [place] [address] Bindu Gaines MD [address] [facility] [address] [place] [address] H/O mechanical aortic valve replacement; penitentiary current use of anticoagulant therapy Social History Tobacco Use Types Packs/Day Years Used Date Smoking Tobacco: Never Smokeless Tobacco: Never Alcohol Use Standard Drinks/Week Comments Yes 1 (1 standard drink = 0.6 oz pur e alcohol) Comments Unknown Sex and Gender Information Value Date Recorded Sex Assigned at Not on file Legal Sex Female 8:13 AM CLINICAL RESEARCH NURSE COORDINATOR Gender Identity Female 06/01/2020 9:42 PM CLINICAL RESEARCH NURSE COORDINATOR Sexual Orientation Straight 06/01/2020 9: 42 PM CLINICAL RESEARCH NURSE COORDINATOR documented as of this encounter Plan [...]
--- OUTSIDE RECORDS SUMMARY | 2024-04-01 12:12 | XMS_ITS | Encounter Summary ---
Author Organization [facility] Address [address] [place] [address] Care Team Providers Care Accessibility Lift Technician Name Role Phone Unavailable Primary Care Provider Unavailabl e Encounter Details Date Type Department Care Team (Latest Contact Info) Description 09/15/2016 Anticoagulation Visit [facility] [address] [place] [address] Bindu Gaines MD [address] [place] [address] [place] [address] watermelon inspector current use of anticoagulant therapy Social History Tobacco Use Types Packs/Day Years Used Date Smoking Tobacco: Never Assessed Alcohol Use Standard Drinks/Week Comments Yes 0 (1 standard drink = 0.6 oz pur e alcohol) Comments Unknown Sex and Gender Information Value Date Recorded Sex Assigned at Not on file Legal Sex Female 8:13 AM CHILD WELFARE WORKER Gender Identity Female 06/01/2020 9:42 PM CHILD WELFARE WORKER Sexual Orientation Straight 06/01/2020 9: 42 PM CHILD WELFARE WORKER documented as of this encounter Plan of [...] documented in this encounter Visit Diagnoses Diagnosis watermelon inspector current 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
--- OUTSIDE RECORDS SUMMARY | 2024-04-01 12:12 | XMS_ITS | Encounter Summary ---
Author Organization [facility] Address [address] [facility] [address] [place] [address] Care Team Providers Care Forging Press Setter Up Name Role Phone Unavailable Primary Care Provider Unavailabl e Encounter Details Date Type Department Care Team (Late st Contact Info) Description 01/09/2017 Telephone [facility] [address] [facility] [address] [facility] 102 [place] [id number] Bindu Gaines MD [address] [facility] 102 [place], [place] [id number] Social History Tobacco Use Types Packs/Day Years Used Date Smoking Tobacco: Never Smokeless Tobacco: Never Alcohol Use Standard Drinks/Week Comments Yes 1 (1 standard drink = 0.6 oz pur e alcohol) Comments Unknown Sex and Gender Information Value Date Recorded Sex Assigned at Not on file Legal Sex Female 8:13 AM EDUCATIONAL ADVISOR Gender Identity Female 06/01/2020 9:42 PM EDUCATIONAL ADVISOR Sexual Orientation Straight 06/01/2020 9: 42 PM EDUCATIONAL ADVISOR documented as of this encounter Miscellaneous Notes [...]
--- OUTSIDE RECORDS SUMMARY | 2024-04-01 12:13 | XMS_ITS | Encounter Summary ---
Author Organization [facility] Facility Care Team Providers Care Vending Machine Servicer Name Role Phone Unavailable Primary Care Provider Unavailabl e Encounter Details Date Type Department Care Team (Latest Contact Info) Description 10/26/2008 10:15 AM CDT - 10/26/2008 11:59 PM CDT [facility] [address] [facility] [address] [place] [address] Pre-operative cardiovascular examination; Other specified pre-operative examination Social History Tobacco Use Types Packs/Day Years Used Date Smoking Tobacco: Never Assessed Comments Unknown Sex and Gender Information Value Date Recorded Sex Assigned at Not on file Legal Sex Female 8:13 AM SPECIAL INVESTIGATION UNIT INVESTIGATOR Gender Identity Female 06/01/2020 9:42 PM SPECIAL INVESTIGATION UNIT INVESTIGATOR Sexual Orientation Straight 06/01/2020 9: 42 PM SPECIAL INVESTIGATION UNIT INVESTIGATOR documented as of this encounter Plan of Treatment Not on file documented as of this encounter Visit Diagnoses Diagnosis Pre-operative cardiovascular examination Other specified pre-operative examination documented in this encounter
--- OUTSIDE RECORDS SUMMARY | 2024-04-01 12:13 | XMS_ITS | Encounter Summary ---
Author Organization [facility] Facility Care Team Providers Care Heater Engineer Helper Name Role Phone Unavailable Primary Care Provider Unavailabl e Encounter Details Date Type Department Care Team (Late st Contact Info) Description 08/08/2008 1:29 PM CDT - 08/08/2008 11:59 PM CDT Hospital Encounter [facility] Social History Tobacco Use Types Packs/Day Years Used Date Smoking Tobacco: Never Assessed Comments Unknown Sex and Gender Information Value Date Recorded Sex Assigned at Not on file Legal Sex Female 8:13 AM WEAVE DEFECT CHARTING CLERK Gender Identity Female 06/01/2020 9:42 PM WEAVE DEFECT CHARTING CLERK Sexual Orientation Straight 06/01/2020 9: 42 PM WEAVE DEFECT CHARTING CLERK documented as of this encounter Plan of Treatment Not on file documented as of this encounter Visit Diagnoses Not on filedocumented in this encounter
--- OUTSIDE RECORDS SUMMARY | 2024-04-01 12:13 | XMS_ITS | Encounter Summary ---
Author Organization [facility] Facility Care Team Providers Care Real Estate Broker Associate Name Role Phone Unavailable Primary Care Provider Unavailabl e Encounter Details Date Type Department Care Team (Late st Contact Info) Description 09/08/2007 10:58 AM CDT - 09/08/2007 4:00 PM T Hospital [facility] [place] [address] [facility] [address] [place] [address] Social History Tobacco Use Types Packs/Day Years Used Date Smoking Tobacco: Never Assessed Comments Unknown Sex and Gender Information Value Date Recorded Sex Assigned at Not on file Legal Sex Female 8:13 AM REHABILITATION SERVICES DIRECTOR Gender Identity Female 06/01/2020 9:42 PM REHABILITATION SERVICES DIRECTOR Sexual Orientation Straight 06/01/2020 9: 42 PM REHABILITATION SERVICES DIRECTOR documented as of this encounter Plan of Treatment Not on file documented as of this encounter Visit Diagnoses Not on filedocumented in this encounter
--- OUTSIDE RECORDS SUMMARY | 2024-04-01 12:16 | XMS_ITS | Encounter Summary ---
Author Organization [facility] Address [address] [place] [address] Care Team Providers Care Hearing Screen Coordinator Name Role Phone Unavailable Primary Care Provider Unavailabl e Encounter Details Date Type Department Care Team (Late st Contact Info) Description 02/12/2020 12:00 PM CULLET CRUSHER AND WASHER Rapid Evaluation [place] [facility] Community Testing [facility] [address] [place] [address] Social History Tobacco Use Types Packs/Day Years [...]
--- OUTSIDE RECORDS SUMMARY | 2024-04-01 12:16 | XMS_ITS | Encounter Summary ---
Author Organization [facility] Address [address] [place] [address] Care Team Providers Care Head Of Cytogenetics Name Role Phone Unavailable Primary Care Provider Unavailabl e Encounter Details Date Type Department Care Team (Late st Contact Info) Description 02/12/2020 Lab Requisition [facility] Community Testing [facility] [address] [place], [place] [id number] [place] [id number] [place] [address] Social History Tobacco Use Types Packs/Day Years [...] PCR [facility] ONLY Routine 02/12/2020 11:39 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
--- OUTSIDE RECORDS SUMMARY | 2024-04-01 12:16 | XMS_ITS | Clinical Summary ---
Author Organization [facility] Address [address] [place] [id number] Care Team Providers Care Manager Infusion Name Role Phone Unavailable Primary Care Provider [...] Occult Blood 08/21/2007 Mammogram 08/21/2007 Pneumococcal Immunization (50+ years) (1 of - PCV) 2022 SARS-COV-2 [...]
== END 2024-03-27 16:04 | disposition home or self-care (01) ==
PROVIDERS: Emergency Provider Emergency Medicine; PCP Student in an Organized Health Care Education/Training Program
DX: J45.909 Unspecified asthma, uncomplicated (principal); E78.00 Pure hypercholesterolemia, unspecified; H40.9 Unspecified glaucoma; M17.0 Bilateral primary osteoarthritis of knee; M79.7 Fibromyalgia; Z95.2 Presence of prosthetic heart valve; Z79.01 Long term (current) 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s; Z79.82 Long term (current) use of aspirin; Z79.899 Other long term (current) drug therapy
CPT/HCPCS: 30901; 36415; 80053; 85025; 85610; 85730; 99283

== ENCOUNTER 2024-05-24 06:54 | Outpatient (RCR) | payer OTHER, SELFPAY ==
[2024-02-25 09:35] LABS: INR 3.6; Prothrombin Time 36.5 Seconds (11.1-14.7)
[2024-02-29 07:08] LABS: INR 4.6; Prothrombin Time 43.5 Seconds (11.1-14.7)
[2024-03-07 08:50] LABS: INR 3.5
[2024-03-14 08:20] LABS: INR 3.1; Prothrombin Time 32.6 Seconds (11.1-14.7)
[2024-03-30 11:33] LABS: INR 2.8; Prothrombin Time 29.5 Seconds (11.1-14.7)
[2024-04-26 08:24] LABS: INR 2.7; Prothrombin Time 29.7 Seconds (11.1-14.7)
[2024-05-24 09:08] LABS: INR 2.6
== END 2024-05-25 23:59 | disposition home or self-care (01) ==
LOC: ANHLAB 06:54
PROVIDERS: PCP Student in an Organized Health Care Education/Training Program; Visit Provider Nurse Practitioner Adult Health
DX: Z51.81 Encounter for therapeutic drug level monitoring (principal); Z79.01 Long term (current) 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s; Z95.2 Presence of prosthetic heart valve
CPT/HCPCS: 36415; 85610

== ENCOUNTER 2024-09-06 07:00 | Outpatient (RCR) | payer OTHER, SELFPAY ==
[2024-06-10 08:29] LABS: INR 2.7; Prothrombin Time 29.4 Seconds (11.1-14.7)
[2024-06-29 07:46] LABS: Prothrombin Time 22.6 Seconds (11.1-14.7)
[2024-07-13 08:39] LABS: INR 3.8; Prothrombin Time 37.5 Seconds (11.1-14.7)
[2024-07-27 07:55] LABS: INR 2.6; Prothrombin Time 27.9 Seconds (11.1-14.7)
[2024-08-08 08:52] LABS: INR 4.5
[2024-08-12 07:37] LABS: INR 3.8; Prothrombin Time 37.5 Seconds (11.1-14.7)
[2024-08-18 08:20] LABS: INR 4.6; Prothrombin Time 44.6 Seconds (11.1-14.7)
[2024-08-25 08:28] LABS: INR 2.4; Prothrombin Time 26.6 Seconds (11.1-14.7)
[2024-09-06 08:23] LABS: INR 1.7; Prothrombin Time 20.5 Seconds (11.1-14.7)
== END 2024-09-08 23:59 | disposition home or self-care (01) ==
LOC: ANHLAB 07:00
PROVIDERS: PCP Student in an Organized Health Care Education/Training Program; Visit Provider Nurse Practitioner Adult Health
DX: Z95.2 Presence of prosthetic heart valve (principal); Z79.01 Long term (current) 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s
CPT/HCPCS: 36415; 85610

== ENCOUNTER 2024-10-10 12:45 | Outpatient (CLI) | payer OTHER, SELFPAY ==
--- NOTE | ~2024-10-10 | XR_ITS ---
Left Knee Technique: AP, lateral, and sunrise views were obtained. Clinical History: Polyarthralgia Findings: No fracture or dislocation is seen. There is medial compartment narrowing. There is moderat e tricompartmental degenerative spurring. Soft tissues are unremarkable. No joint effusion is seen. Impression: Moderate tricompartmental degenerative change, worst in the medial and patellofemoral compartment. Reviewed, dictated and finalized at location M. Impression: Moderate tricompartmental degenerative change, worst in the medial and patellof emoral compartment.
--- NOTE | ~2024-10-10 | XR_ITS ---
Right Knee Technique: AP, lateral, and sunrise views were obtained. Clinical History: Polyarthralgia Findings: No fracture or dislocation is seen. Right knee arthroplasty in place. No hardware complicat ion seen. Soft tissues are unremarkable. No joint effusion is seen. Impression: No acute abnormality. Right knee arthroplasty. Reviewed, dictated and finalized at location . Impression: No acute abnormality. Right knee arthroplasty.
--- NOTE | ~2024-10-10 | XR_ITS ---
Left Shoulder Technique: AP and axillary views were obtained. Clinical History: Polyarthralgia Findings: No fracture or dislocation is seen. Osseous alignment is anatomic. The glenohumeral and acr omioclavicular joint spaces are preserved. Soft tissues are unremarkable. Impression: Unremarkable left shoulder radiographs. Reviewed, dictated and finalized at location . Impression: Unremarkable left shoulder radiographs.
--- NOTE | ~2024-10-10 | XR_ITS ---
Cervical Spine: AP, lateral, open-mouth views Clinical History: Pain Findings: There is reversal normal cervical lordosis. There is 3 mm retrolisthesis of C5 over C6. The re is 3 mm anterolisthesis of C3 over C4. There is advanced degenerative disc narrowing at C5-C6 and C6-7. There is moderate degenerative disc narrowing at C4-C5. There is moderate to advanced facet art hropathy throughout the cervical spine. Pre-vertebral soft tissues are unremarkable. Impression: Moderate to advanced degenerative spondylosis, as above. Grade 1 listheses, as above. Reviewed, dictated and finalized at location M. Impression: Moderate to advanced degenerative spondylosis, as above. Grade 1 listheses, as above.
--- NOTE | ~2024-10-10 | XR_ITS ---
Right Shoulder Technique: AP and axillary views were obtained. Clinical History: Polyarthralgia Findings: No fracture or dislocation is seen. Osseous alignment is anatomic. The glenohumeral and acr omioclavicular joint spaces are preserved. Soft tissues are unremarkable. Impression: Unremarkable right shoulder radiographs. Reviewed, dictated and finalized at location . Impression: Unremarkable right shoulder radiographs.
--- OUTSIDE RECORDS SUMMARY | 2024-10-10 12:53 | XMS_ITS | Patient Health Record ---
Author Organization [facility] Address [address] [place] [address] Care Team Providers Care Autos Disassembler Name Role Phone Payal Méndez Unavailable [phone] Reason For Referral No Information Medications Medication [...] Insured Coverage Start Date Coverage End Date [place] [address] [place] [address] [id number] Yessy Donaldson Self - patient is the insured Medical (General) History Surgical History Surgery Date(Month/Year) Foot surgery; 2021-03-21 Carpal tunnel release; 2021-03-21 Bunionectomy; 2021-03-21 Aortic valve replacement; 2021-03-21
--- OUTSIDE RECORDS SUMMARY | 2024-10-10 12:53 | XMS_ITS | Encounter Summary ---
Author Organization [facility] Address [address] [facility] [place] [address] Care Team Providers Care Supervisor Scouring Pads Name Role Phone Unavailable Primary Care Provider Unavailabl e Encounter Details Date Type Department Care Team (Late st Contact Info) Description 01/08/2024 Lab Requisition [facility] - DermPath Lab [address] [facility] [place] [address] Jamilah Garzon PA [address] [place] [address] Neoplasm of uncertain behavior of skin Social History Tobacco Use Types Packs/Day Years Used Date Smoking Tobacco: Never Assessed Comments Unknown Sex and Gender Information Value Date Recorded Sex Assigned at Not on file Legal Sex Female 12:25 PM CDT Gender Identity Not on file [...] 12:00 AM CDT) Case Report Dermatopathology Report Case: [id number] Authorizing Provider: Jamilah Garzon PA Collected: 01/08/2024 12:00 AM Ordering Location: [facility] Physician [facility] - Received: 01/11/2024 11:17 AM DermPath Lab Pathologist: Kym Campuzano MD Specimen: Skin, left superior cheek 3:08 PM CDT DERMATOPATHOLOGY LABORATORY Final Diagnosis Specimen A. SKIN, left superior cheek: BASAL CELL CARCINOMA, NODULAR TYPE, ERODED AND WITH CLEAR CELL CHANGE (C44.319) 4 3:08 PM CDT DERMATOPATHOLOGY LABORATORY at 1508 CDT Clinical History Neoplasm of uncertain behavior vs BCC 4 3:08 PM CDT DERMATOPATHOLOGY LABORATORY Gross Description Specimen A: Received is one formalin filled container labeled with the patient's name and designated left superior cheek. The specimen consists of a shave biopsy measuring 7x6x1 mm. Jar 0. 3:08 PM CDT DERMATOPATHOLOGY LABORATORY Microscopic Description [...] characteristic determined by the Dermatopathology Laboratory at [facility], directed by Dr. Thaddeus Souza. These tests need not be, and therefore are not, approved by the [place] Food and Drug Administration. The tests are used for clinical purposes. Billing Codes Specimen Charges Stain Charges 52395 1 95879 70451 89446 1 1 1 4 3:08 PM CDT DERMATOPATHOLOGY LABORATORY Embedded Images 3:08 PM CDT DERMATOPATHOLOGY LABORATORY Pathology/Cytolog y TISSUE SPECIMEN FROM SKIN / Unknown 01/08/2024 01/11/2024 11:17 AM CDT [facility] - PATHOLOGY/CYTOLOGY OR DERABLES Final Result DERMATOPATHOLOGY LABORATORY [facility] - Department of Dermatology [address], [address] Floor [address] [phone] documented in this encounter Visit Diagnoses Diagnosis Neoplasm of uncertain behavior of skin documented in this encounter
--- OUTSIDE RECORDS SUMMARY | 2024-10-10 12:53 | XMS_ITS | Clinical Summary ---
Author Organization [facility] Address [address] [place] [address] Care Team Providers Care Ramp Service Agent Name Role Phone Unavailable Primary Care [...] 08/21/2007 Pneumococcal Immunization (50+ years) (1 of 1 - PCV) 08/21/2007 Influenza Immunization (#1) 12/13/202312/12, 01/24/2019, 01/24/2018, Additional history exists SARS-COV-2 Immunization ( season) 2023 03/23/2021, 06/28/2020, 06/07/2020 Respiratory Syncytial Virus (RSV) Immunization (Adult) (1 - 1-dose 75+ series) 2032 Zoster Immunization Completed 11/08/2018, 9 DTaP/Tdap/Td Immunization [...]
--- OUTSIDE RECORDS SUMMARY | 2024-10-10 12:53 | XMS_ITS | Clinical Summary ---
Author Organization [facility] Address [address] [place] [address] Care Team Providers Care Agriculture Scientist Name Role Phone Unavailable Primary Care Provider Unavailabl e Source Comments [facility],non-owned Affiliates and Associated Physician Practices is amultiple site organization consisting of ambulatory clinics and hospital sitesin [place], [place], [place] and [place]. This disclosure is being madepursuant to the Care Everywhere program and may not contain all information available regarding this patient. Last updated 18.[facility] Social History Tobacco Use Types Packs/Day Years [...] SCREENING 1957 LIPID TESTING 1957 MAMMOGRAM 1957 MEDICARE AWV 12 MONTHS 1957 HEPATITIS C SCREENING 08/16/1975 DTAP/TDAP/TD VACCINES (1 - Tdap) 1976 PNEUMOCOCCAL VACCINE 50+ (1 of 1 - PCV) 08/21/2007 ZOSTER VACCINE (1 of 2) 08/21/2007 COVID-19 VACCINE ( - 2023-2 5 season) 2023 DEPRESSION SCREENING 04/13/2024 INFLUENZA VACCINE (Season Ended) 2024 Respiratory Syncytial Virus (RSV) Vaccine Pt: or [...] patient's age to complete this topic MENINGOCOCCAL (Group B) VACC INE SHARED DECISION-MAKING Aged Out No longer eligibl e based on patient's age to complete this topic MENINGOCOCCAL GROUPS A/C/Y/W VACCINE Aged Out No longer eligible b ased on patient's age to complete this topic Insurance [facility] MEDICARE
--- OUTSIDE RECORDS SUMMARY | 2024-10-10 12:53 | XMS_ITS | Encounter Summary ---
Author Organization [facility] Healthcare Address [address] [place] [address] Care Team Providers Care Fiscal Agent Name Role Phone KonstantinyolandaandreyGeraldine shenchary Phillip THOMPSON Primary Care Provide r Adrien Camejo MD Unavailable [phone] Encounter Details Date Type Department Care Team (Late st Contact Info) Description 10/19/2023 Orders Only [facility] Health Information Management [address] [place] [address] Scanning, Provider Social History Tobacco Use Types [...] file Legal Sex Female 8:13 AM SUPERVISOR GEAR REPAIR Gender Identity Female 06/01/2020 9:42 PM SUPERVISOR GEAR REPAIR Sexual Orientation Straight 06/01/2020 9: 42 PM SUPERVISOR GEAR REPAIR Occupation Industry Job Start Date Job End Date [employer] Not on file Not on file Not on file documented as of this encounter Plan of Treatment Upcoming Encounters Date Type Department Care Team (Latest Contact Info) Description 10/10/2024 3:30 PM CDT Office Visit [facility] Medical Group Cardiology [address] [place] [address] Yuri Ferraro MD [address] [place] [address] Bicuspid aortic valve (Primary Dx); H/O mechanical aortic valve replacement; Chronic anticoagulation documented as of this encounter Procedures Procedure Name Priority Date/Time Associated Diagnosis Comments SCAN - LABS 10/19/2023 documented in this encounter Results * SCAN - LABS (10/19/2023) us Provider Scanning Final Result documented in this encounter Visit Diagnoses Not on filedocumented in this encounter Care Teams Fiscal Agent Relationship Specialty Start Date End Date Sanket Waldron DO [address] [place] [address] PCP - General 05/26/23 Adrien Camejo MD [address] [facility] [address] [place] [address] Consulting Physician Orthopedic Surgery 08/25/23 documented as of this encounter
--- OUTSIDE RECORDS SUMMARY | 2024-10-10 12:53 | XMS_ITS | Encounter Summary ---
Author Organization [facility] Care Team Providers Care Dyno Technician Name Role Phone Helena Yu Primary Care Provider [phone] Gabi Fagan MD Primary Care Pro vider Nathalie Jain MD Primary Care Provider [phone] Jose Lorenzo DO Primary Care Provider [phone] Sanket Waldron DO Primary Care Provide r Adrien Camejo MD Unavailable [phone] Encounter Details Date Type Department Care Team (Latest Contact Info) Description 11/20/2017 Orders Only [facility] ProviderReynaldo MD [address] [place] [address] Social History Tobacco Use Types Packs/Day Years Used Date Smoking Tobacco: Never Smokeless Tobacco: Never Alcohol Use Standard Drinks/Week Comments Yes 1 (1 standard drink = 0.6 oz pur e alcohol) Comments Unknown Sex and Gender Information Value Date Recorded Sex Assigned at Not on file Legal Sex Female 8:13 AM FOAM RUBBER CURER Gender Identity Female 06/01/2020 9:42 PM FOAM RUBBER CURER Sexual Orientation Straight 06/01/2020 9: 42 PM FOAM RUBBER CURER documented as of this encounter Plan of Treatment Upcoming Encounters Date Type Department Care Team (Latest Contact Info) Description 10/10/2024 3:30 PM CDT Office Visit [facility] Medical Group Cardiology [address] [place] [address] Yuri Ferraro MD [address] [place] [address] Bicuspid aortic valve (Primary Dx); H/O mechanical [...] on filedocumented in this encounter Care Teams Dyno Technician Relationship Specialty Start Date End Date Helena Yu PA [address] [place] [address] PCP - General Internal Medicine 09/23/18 07/29/20 Gabi Fagan MD [address] [place] [address] PCP - General Family Medicine 07/30/20 01/09/21 Nathalie Jain MD [address] [place] [address] PCP - General Internal Medicine 01/10/21 09/22/22 Jose Lorenzo DO [address] [place] [address] PCP - General Family Medicine 09/23/22 05/25/23 Sanket Waldrno DO [address] [place] [address] PCP - General 05/26/23 Adrien Camejo MD [facility] [address] [address] Consulting Physician Orthopedic Surgery 08/25/23 documented as of this encounter
--- OUTSIDE RECORDS SUMMARY | 2024-10-10 12:54 | XMS_ITS | Encounter Summary ---
Author Organization [facility] Healthcare Address [address] [place] [address] Care Team Providers Care Lithograph Press Operator Tinware Name Role Phone Sanket Waldron DO Primary Care Provide r Adrien Camejo MD Unavailable [phone] Reason for Visit * Reason Comments Follow-up 4 mo follow up on HL D, severe bicuspid AVS * Consultation (Routine) - Authorized Specialty Diagnoses / Procedures Referred By Contac t Referred To Contact Cardiology Diagnoses Presence of prosthetic heart valve Sanket Waldron DO [address] [place] [address] Phone: tel: fax: [facility] Medical Group Cardiology [address] [address] Phone: tel: fax: Referral ID Status Reason Start Date Expiration Date Visits Requested Visits Authorized [id number] Authorized Specialty Services Required 12/10/2023 12/09/2024 12 12 Encounter Details Date Type Department Care Team (Latest Contact Info) Description 10/10/2024 3:30 PM CDT Office Visit [facility] Medical Group Cardiology [address] [place] [address] Yuri Ferraro MD [address] [place] [address] Bicuspid aortic valve (Primary Dx); H/O mechanical aortic valve replacement; Chronic anticoagulation Social History Tobacco Use Types Packs/Day Years Used Date Smoking Tobacco: Never Smokeless Tobacco: Never Alcohol Use Standard Drinks/Week Comments Yes 1 (1 standard drink = 0.6 oz pur e alcohol) socially AUDIT-C Answer Date Recorded Q1: How often do you have a drink containing alc ohol? Monthly or less 08/29/2024 Q2: How many drinks containi ng alcohol do you have on a typical day when you are drinking? 1 or 2 08/29/2024 Q3: How often do you have si x or more drinks on one occasion? Never 08/29/2024 PHQ-2 Answer Date Recorded PHQ-2 Total Score (If total score is 3 or more points, staff should administer the PHQ-9) 0 06/12/2020 Personal Safety Answer Date Recorded Have you ever been in or are you currently in a harmful physical or emotional relationship or is someone making you feel afraid or unsafe? 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 Not on file Not on file documented as of this encounter Last Filed Vital Signs Vital Sign Reading Time Taken Comments Blood Pressure 118/70 10/10/2024 9:48 AM CDT Pulse 78 10/10/2024 9:48 AM CDT Temperature - - Respiratory Rate - - Oxygen Saturation 96% 10/10/2024 9:48 AM CDT Inhaled Oxygen Concentration - - Weight 59 kg (130 lb) 10/10/2024 9:48 AM CDT Height 152.4 cm (5') 10/10/2024 9:48 AM CDT Body Mass Index 25.39 10/10/2024 9:48 AM CDT documented in this encounter Progress Notes * Yuri Ferraro MD - 10/10/2024 3:30 PM CDT [facility] CARDIOLOGY CHIEF COMPLAINT / REASON FOR CONSULT: Severe bicuspid aortic valve stenosis status post aortic valve replacement with 19mm regent mechanical valve (Dr. Guthrie in 2008) HISTORY: Yessy Donaldson is a 69 y.o. female with severe bicuspid aortic valve stenosis status post aortic valve replacement with 19mm regent mechanical valve (Dr. Guthrie in 2008) and hyperlipidemia returns for follow up for her cardiac care. She has no cardiopulmonary limitations to physical activity. Denies any chest pain or shortness breath. Most of her physical activities limited by knee pain. No orthopnea or syncopal events. 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 daily Atorvastatin 20 mg every evening Pepcid REVIEW OF SYSTEMS: GENERAL: As per HPI CVS: As per HPI HEME: No bruising, no bleeding PHYSICAL EXAMINATION: BP 118/70 (BP Location: Right arm, Patient Position: Sitting) Pulse 78 Ht 152.4 cm (5') Wt 59kg (130 lb) SpO2 96% BMI 25.39 kg/m?? GENERAL: Alert, in no distress HEAD: Normocephalic and atraumatic EYES: Extraocular movement intact ENT: Unremarkable NECK: no jugular venous distention CHEST: Clear to auscultation, no wheezes, rales or rhonchi, symmetric air entry CARDIAC: Regular rate and rhythm, mechanical S2. No murmurs. ABDOMEN: soft, nontender, no bruit EXTREMITIES: No edema PERIPHERAL PULSES: Peripheral pulses symmetrical SKIN: Warm and dry NEURO: Alert and oriented x 3 LABS: Lab Results Component Value Date CHOL 227 (H) 08/31/2012 Lab Results Component Value Date HDL 56 08/31/2012 No results found for: LDLCALC Lab Results Component Value Date TRIG 133 08/31/2012 Lab Results Component Value Date CHOLHDL 4.1 08/31/2012 Lab Results Component Value Date HGBA1C 5.5 08/06/2023 HGBA1C 5.3 08/29/2020 CARDIAC IMAGING RESULTS REVIEW: Echo 03/2024: Normal biventricular size and systolic function. Normal mechanical aortic valve. Cardiac CT Stress Test Cardiac Monitors Cath ASSESSMENT/PLAN: 69 y.o. female with severe bicuspid aortic valve stenosis status post aortic valvereplacement with 19mm regent mechanical valve (Dr. Guthrie in 2008) and hyperlipidemia returns for follow up for her cardiac care Severe bicuspid aortic valve stenosis status post aortic valve replacement with 19mm regent mechanical valve (Dr. Guthrie in 2008) -Mechanical S2 heard -Continue warfarin 4 mg p.o. daily -She is no longer on aspirin as she was found to have ulcers on recent EGD -We have discussed that given that she is more than 10 years out of her valve surgery it is not unreasonable in light of the ulcers on EGD Hyperlipidemia -Continue atorvastatin Chronic anticoagulation -warfarin RTC in 1 year Yuri Ferraro MD Voice recognition software was used to complete this document, therefore, life trainer variances may occur. documented in this encounter Plan of Treatment Not on file documented as of this encounter Procedures Procedure Name Priority Date/Time Associated Diagnosis Comments LIPID PANEL Routine 05/30/2024 7:37 AM SEVERITY OF ILLNESS COORDINATOR documented in this encounter Results * Lipid panel (05/30/2024 7:37 AM SEVERITY OF ILLNESS COORDINATOR) SCRIBED Cholesterol, Total 155 30 - 199 mg/dL EXTERNAL LAB SCRIBED Triglycerides 57 <=149 mg/dL EXTERNAL LAB SCRIBED HDL 76 >=40 mg/dL EXTERNAL LAB SCRIBED LDL 68 <=129 mg/dL EXTERNAL LAB Scribed Non-HDL Cholesterol 0 NONE mg/dL EXTERNAL LAB SCRIBED Total Cholesterol/HDL Ratio 0 NONE EXTERNAL LAB Blood 05/30/2024 7:37 AM SEVERITY OF ILLNESS COORDINATOR us Historical Provider LAB BLOOD ORDERABLES Antonina l Result EXTERNAL LAB documented in this encounter Visit Diagnoses Diagnosis Bicuspid aortic valve- Primary Congenital insufficiency of aortic valve H/O mechanical aortic valve replacement Chronic anticoagulation Encounter for long-term (current) 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s documented in this encounter Discontinued Medications Medication Sig Discontinue Reason Start Date End Da te menthol 4 % gel Apply 1 Application topically as needed Therapy completed 10/10/2024 documented as of this encounter Care Teams Lithograph Press Operator Tinware Relationship Specialty Start Date End Date Sanket Waldron DO [address] [place] [address] PCP - General 05/26/23 Adrien Camejo MD [address] [address] Consulting Physician Orthopedic Surgery 08/25/23 documented as of this encounter
--- OUTSIDE RECORDS SUMMARY | 2024-10-10 12:54 | XMS_ITS | Encounter Summary ---
Author Organization [facility] Healthcare Address [address] [place] [address] Care Team Providers Care Field Marketing Lead Name Role Phone KonstantinyolandaandreySanket shen DO Primary Care Provide r Adrien Camejo MD Unavailable [phone] Encounter Details Date Type Department Care Team (Late st Contact Info) Description 07/27/2024 Orders Only [facility] [place] [address] [place] [id number] Scanning, Provider Social History Tobacco Use Types Packs/Day Years Used Date Smoking Tobacco: Never Smokeless Tobacco: Never Alcohol Use Standard Drinks/Week Comments Yes 1 (1 standard drink = 0.6 oz pur e alcohol) socially AUDIT-C Answer Date Recorded Q1: How often do you have a drink containing alc ohol? Monthly or less 06/21/2024 Q2: How many drinks containi ng alcohol do you have on a typical day when you are drinking? 1 or 2 06/21/2024 Q3: How often do you have si x or more drinks on one occasion? Never 06/21/2024 PHQ-2 Answer Date Recorded PHQ-2 Total Score (If total score is 3 or more points, staff should administer the PHQ-9) 0 06/12/2020 Personal Safety Answer Date Recorded Have you ever been in or are you currently in a harmful physical or emotional relationship or is someone making you feel afraid or unsafe? 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 [address] [place] [address] Yuri Ferraro MD [address] [place] [address] Bicuspid aortic valve (Primary Dx); H/O mechanical aortic valve replacement; Chronic anticoagulation documented as of this encounter Procedures Procedure Name Priority Date/Time Associated Diagnosis Comments SCAN - LABS 07/27/2024 documented in this encounter Results * SCAN - LABS (07/27/2024) us Provider Scanning Final Result documented in this encounter Visit Diagnoses Not on filedocumented in this encounter Care Teams Field Marketing Lead Relationship Specialty Start Date End Date Sanket Waldron DO [address] [place] [id number] PCP - General 05/26/23 Adrien Camejo MD [address] [facility] [address] [place] [address] Consulting Physician Orthopedic Surgery 08/25/23 documented as of this encounter
--- OUTSIDE RECORDS SUMMARY | 2024-10-10 12:54 | XMS_ITS | Encounter Summary ---
Author Organization [facility] Healthcare Address [address] [place] [address] Care Team Providers Care Manager State Name Role Phone Sanket Waldron Primary Care Provide r Adrien Camejo MD Unavailable [phone] Encounter Details Date Type Department Care Team (Latest Contact Info) Description 08/31/2024 Results Follow-Up [facility] Medical Group Gastroenterology at [address] [phone] Hugo Hodge MD [address] [place] [id number] Surgical pathology Social History Tobacco Use Types Packs/Day Years [...] on file Legal Sex Female 8:13 AM MEN'S GARMENT FITTER Gender Identity Female 06/01/2020 9:42 PM MEN'S GARMENT FITTER Sexual Orientation Straight 06/01/2020 9: 42 PM MEN'S GARMENT [employer]TER 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 Not on file Not on file documented as of this encounter Plan of Treatment Upcoming Encounters Date Type Department Care Team (Latest Contact Info) Description 10/10/2024 3:30 PM CDT Office Visit [facility] Medical Group Cardiology [address] [facility] [address] [phone] Yuri Ferraro MD [address] [facility] [address] [facility] [address] [place] [address] Bicuspid aortic valve (Primary Dx); H/O mechanical aortic valve replacement; Chronic anticoagulation documented as of this encounter Visit Diagnoses Not on filedocumented in this encounter Care Teams Manager State Relationship Specialty Start Date End Date Sanket Waldron DO [address] [place] [id number] PCP - General 05/26/23 Adrien Camejo MD [address] [facility] [[email or web address] [address] [place] [address] Consulting Physician Orthopedic Surgery 08/25/23 documented as of this encounter
--- OUTSIDE RECORDS SUMMARY | 2024-10-10 12:54 | XMS_ITS | Clinical Summary ---
Author Organization [facility] [address] Address [address] [place] [address] Care Team Providers Care Concrete Bucket Loader Name Role Phone Sanket Waldron Primary Care Provide r Adrien Camejo MD Unavailable [phone] Allergies Active Allergy Reactions Criticality Noted Date Comments Molnupiravir Rash Medium 05/26/2023 Pregabalin Rash Medium 01/02/2022 Medications albuterol HFA (ProAir HFA) 90 mcg/actuation inhaler Inhale 2 puffs every 4 (four) hours as needed for wheezing 1 Inhaler 1 0 Active LATANOPROST OPHT Administer 1 drop into affected eye(s) nightly Active artificial tears (ISOPTO TEARS) 0.5 % [...] 1 tablet by mouth every morning Active magnesium oxide 400 mg magnesium capsule Take 1 tablet by mouth nightly Active atorvastatin (LIPITOR) 20 mg tablet Take 1 tablet by mouth once daily 90 tablet 2 4 Active tiZANidine (ZANAFLEX) 2 mg tablet Take 1 tablet (2 mg total) by mouth every 8 (eight) hours as needed 5 Active famotidine (PEPCID) 40 mg tabletIndicati ons:Gastric Ulcer Take 1 tablet (40 mg total) by mouth daily before breakfast 90 tablet 3 5 Active warfarin (COUMADIN) 2 mg tablet Take 2 tablets (4 mg total) by mouth daily 180 tablet 5 Active menthol 4 % gel Apply 1 Application topically as needed 10/11/19 25 Discontin ued(Thera py completed ) warfarin (COUMADIN) 2 mg tablet TAKE 2 TABLETS BY MOUTH 5 DAYS A WEEK AND 3 TABLETS BY MOUTH 2 DAYS A WEEK 64 tablet 5 09/27/19 25 Discontin ued(Reord er) Active Problems Problem Noted Date Diagnosed Date Gastric ulcer without hemorrhage or perforation 06/22/2024 Melena 06/08/2024 Assessment & Plan (06/08/2024 6:49 PM 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 CBC remained stable. Negative stool guaiac test. Black stool was most likely due to her swallowing blood as she had a significant nose bleed. She does note occasional heartburn so will order EGD to r/o possible etiologies to make sure. Arthritis of right knee 08/24/2023 Mixed hyperlipidemia [...] 06/12/2020 Assessment & Plan (06/12/2020 9:13 AM [employer] HEL[employer]): Weight/BMI is in healthy range. Continue healthy [...] Coumadin Topicals/Tylenol Pending xrays, may need MRI Screening for colon cancer 12/11/2019 Assessment & Plan (01/01/2021 11:29 AM CDT): Never smoker PAP: UTD 2019 BP <140/90, continue to monitor Body mass index is 26.32 kg/m . Discussed diet and exercise Feels safe at [...] mitigate Assessment & Plan (05/30/2019 1:13 PM COOK HELPER [employer]UIT): Continue the Cymbalta and monitor closely. Reviewed with patient with her increased daily stressors it may be difficult to see a change with any medication. Pt in agreement Assessment & Plan (02/20/2019 2:18 PM COOK HELPER [employer]UIT): Increase cymbalta to 60mg. Monitor closely Assessment [...] replacement with metallic valve S/P 19 mm Viola mechanical AVR Dr. 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 Assessment & Plan (05/30/2019 8:38 AM COOK HELPER [employer]UIT): Weight/BMI is in healthy range. Continue healthy lifestyle to maintain. BMI 26.0-26.9,adult 01/24/2019 05/30/19 20 Assessment & Plan (01/24/2019 2:39 PM CDT): Weight/BMI is in healthy range. Continue healthy lifestyle to maintain. Need for immunization against influenza 01/24/2019 12/11/2019 Assessment & Plan (02/20/2019 2:18 PM COOK HELPER FRUIT): Updated in office today Need for Tdap [...] H/O aortic valve replacement S/P 19 mm Viola mechanical AVR Dr. Guthrie 2008 History of anticoagulant therapy 08/30/2012 11/15/2018 Overview (07/17/2016): LONG-TERM USE ANTICOAGUL Encounters Date Type Department Care Team Description 10/11/19 25 3:30 PM CDT Office Visit [facility] Cardiology [address] [place] [address] [place] [phone] Yuri Ferraro MD Bicuspid aortic valve (Primary Dx); H/O mechanical aortic valve replacement; Chronic anticoagulation 09/29/19 25 Anticoagulation Visit [facility] Cardiology [address] [place] [address] [place] [phone] Huma Trevizo RN H/O mechanical aortic valve replacement (Primary Dx); Chronic anticoagulation 09/15/19 25 Anticoagulation Visit [facility] Cardiology [address] [place] [address] [place] [phone] Giuseppe Hernandez RN H/O mechanical aortic valve replacement (Primary Dx); Chronic anticoagulation 09/08/19 Anticoagulation Visit [facility] Cardiology [address] [place] [address] [address] [place] [phone] Juany Madrid RN H/O mechanical aortic valve replacement (Primary Dx); Chronic anticoagulation 09/08/19 Telephone [facility] Cardiology [address] [place] [address] [address] [place] [phone] Trina Romero MD 09/01/19 Results Follow-Up [facility] Gastroenterology at [address] [place] [phone] Hugo Hodge MD Surgical pathology 08/30/19 10:00 AM CDT - 08/30/19 10:30 AM CDT Surgery [facility] [address] [place] [address] Hugo Hodge MD ESOPHAGOGASTRODUODENOSCOPY BIOPSY 08/30/19 9:46 AM CDT Anesthesia Event [facility] [address] [place] [address] Juany Garces MD 08/30/19 8:59 AM CDT - 08/30/19 11:25 AM CDT Hospital Encounter [facility] [address] [place] [address] Hugo Hodge MD Gastric ulcer without hemorrhage or perforation, unspecified chronicity; Belching Discharge Disposition: Discharge to home or self care 08/30/19 Telephone [facility] Cardiology [address] [place] [address] [address] [place] [phone] Trina Romero MD 08/26/19 Anticoagulation Visit [facility] Cardiology [address] [place] [address] [address] [place] [phone] Giuseppe Hernandez RN H/O mechanical aortic valve replacement (Primary Dx); Chronic anticoagulation 08/19/19 Orders Only [facility] [address] [place] [address] Scanning, Provider 08/19/19 25 Anticoagulation Visit [facility] Cardiology [address] [place] [address] [place] [phone] Giuseppe Hernandez RN H/O mechanical aortic valve replacement (Primary Dx); Chronic anticoagulation 08/16/19 25 Anticoagulation Visit [facility] Cardiology [address] [place] [address] [place] [phone] Juany Madrid RN H/O mechanical aortic valve replacement (Primary Dx); Chronic anticoagulation 08/13/19 25 Anticoagulation Visit [facility] Cardiology [address] [place] [address] [place] [phone] Giuseppe Hernandez RN H/O mechanical aortic valve replacement (Primary Dx); Chronic anticoagulation 08/13/19 25 Telephone [facility] Cardiology [address] [place] [address] [place] [phone] Trina Romero MD 08/10/19 25 Anticoagulation Visit [facility] Cardiology [address] [place] [address] [place] [phone] Huma Trevizo RN H/O mechanical aortic valve replacement (Primary Dx); Chronic anticoagulation 08/09/19 25 Anticoagulation Visit [facility] Cardiology [address] [place] [address] [place] [phone] Giuseppe Hernandez RN H/O mechanical aortic valve replacement (Primary Dx); Chronic anticoagulation 08/04/19 25 Orders Only [facility] Gastroenterology at [address] [place] [phone] Hugo Hodge MD [facility] (Primary Dx) 07/28/19 25 Orders Only [facility] Information [facility] [address] [place] [address] Scanning, Provider 07/28/19 25 Anticoagulation Visit [facility] Cardiology [address] [place] [address] [address] [place] [phone] Giuseppe Hernandez RN H/O mechanical aortic valve replacement (Primary Dx); Chronic anticoagulation 07/14/19 25 Anticoagulation Visit [facility] Cardiology [address] [place] [phone] Giuseppe Hernandez RN H/O mechanical aortic valve replacement (Primary Dx); Chronic anticoagulation from Last 3 Months Immunizations Immunization Administration Dates Next Due Flucelvax Influenza Quad [...] TOE SURGERY CERVICAL CERCLAGE CARDIAC VALVE REPLACEMENT 11/06/2008 JOINT REPLACEMENT 1989' ? REPLACEMENT TOTAL KNEE Right LAPAROTOMY 04/13/1984 - 04/12/1985 UPPER GASTROINTESTINAL ENDOSCOPY Medical History Medical History Date Comments Asthma Asthma Eczema eczema Hx Other Medical diverticulosis Arthritis Myalgia Mitral valve prolapse GERD (gastroesophageal reflux disease) at least 10 years Cataract diagnosed 2019 Depression supposedly; but feel it's a misdiagnosis. Heart disease Neuromuscular disorder (HCC) Have had sciatica f or 17 months. Hyperlipidemia Glaucoma Fibromyalgia Family History Medical History Relation Name Comments Arthritis Father Ravin Knott Hearing loss Father Ravin Knott Heart attack Father Ravin Knott Other Father Ravin Knott ME age 50, CABG ; Clotting disorder Mother Liliam Hockeborn Other Mother Liliam Hockeborn H/O CVA, d ied 2012; Stroke Mother Liliam Hockeborn Vision loss Mother Liliam Hockeborn brain tumor Sister 1 Cancer Sister 2 Anusha Nikos Other Sister 2 Anusha Knott MVP; Arthritis Sister 3 Maria Isabel Karsnia Diabetes Sister 3 Maria Isabel Karsnia Arthritis Sister 4 Yary Knott defects Son Denis Nixon Developmental delay Son Denis Nixon Hyperlipidemia Chevy Nixon Vision loss Chevy Nixon Relation Name Status Comments Father Ravin Knott Alive Mother Liliam Arangoborn Sister 1 Alive Sister 2 Anusha Knott Sister 3 Maria Isabel Rosarionia Sister 4 Yary Nixon Social History Tobacco Use Types Packs/Day [...] file Legal Sex Female 8:13 AM [employer] HEL[employer]UIT Gender Identity Female 06/01/2020 9:42 PM COOK HELPER [employer]UIT Sexual Orientation Straight 06/01/2020 9: 42 PM COOK HELPER [employer]UIT Occupation Industry Job Start Date Job End Date [employer] Not on file Not on file Not on file Obstetrics History Last Filed Vital Signs Vital Sign Reading Time Taken Comments Blood Pressure 118/70 10/10/2024 9:48 AM CDT Pulse 78 10/10/2024 9:48 AM CDT Temperature 36.1 C (97 F) 08/29/2024 9:57 AM CDT Respiratory Rate 13 08/29/2024 11:00 AM CDT Oxygen Saturation 96% 10/10/2024 9:48 AM CDT Inhaled Oxygen Concentration - - Weight 59 kg (130 lb) 10/10/2024 9:48 AM CDT Height 152.4 cm (5') 10/10/2024 9:48 AM CDT Body Mass Index 25.39 10/10/2024 9:48 AM CDT Plan of Treatment Upcoming Encounters Date Type Department Care Team (Latest Contact Info) Description 10/10/2024 3:30 PM CDT Office Visit [facility] Cardiology [address] [place] [address] Yuri Ferraro MD [address] [place] [address] Bicuspid aortic valve (Primary Dx); H/O mechanical aortic valve replacement; Chronic anticoagulation Health Maintenance Due Date Last Done Comments Hepatitis C Screening 1955 Hepatitis B Screening 08/21/1975 Pneumococcal vaccine 65+ (1 of 2 - PCV) 1976 Osteoporosis Screening-Bone Density Scan 02/21/2021 02/21/2019 Breast Cancer Screening-Mammogram 02/23/2021 020, 02/21/2019 Depression Screening 06/12/2021 06/12/2020, 12/12/2019, 12/12/2019, Additional history exists Well Visit 65+ 2022 12/12/2019, 11/17/2018 Fall Risk Assessment 08/29/2025 08/29/2024, 06/12/2020, 12/12/2019, Additional history exists Colon Cancer Screening-Colonoscopy 06/22/2027 06/21/2024 Colon Cancer Screening-DNA Stool 06/22/2027 06/22/19 25, 12/06/2018 DTaP/Tdap/Td Vaccine (4 - Td or Tdap) 11/17/2028 11/17/2018, 01/28/2016, 10/29/2012 Zoster Vaccine Completed 11/10/2018, 08/26/2018 Cervical Cancer Screening Discontinued 11/17/2018 Influenza Vaccine Completed 02/03/2024, , 01/22/2021, Additional history exists Medical Devices Implanted Type Area Public Health Aides Teacher Device Identifier Shelf Expiration Date Model / Serial / Lot [employer] Simplex P Radiopaque Full Dose Cement Bone Sterile 6191-1-010 - [id number] Implanted:Qty: 1 on 08/24/2023 by Adrien Camejo MD at [facility] Right: Knee [employer] [id number] 08/10/2025 6191-1-01 0 / / [id number] [employer] Ascent Maxim 63mm 1 Piece Cruciate Fin Knee Tray Tibial Interlok [id number] - [id number] Implanted:Qty: 1 on 08/24/2023 by Adrien Camejo MD at [facility] Right: Knee [employer] 09/11/2032 [id number] / / [id number] [employer] Vanguard 60mm Cruciate Retaining Knee Right Component Femoral [id number] - [id number] Implanted:Qty: 1 on 08/24/2023 by Adrien Camejo MD at [facility] Right: Knee [employer] [id number] 07/26/2032 [id number] / / [id number] [employer] Bearing [id number] Vanguard Arcom Knee Cruciate Retain Direct [id number] - [id number] Implanted:Qty: 1 on 08/24/2023 by Adrien Camejo MD at [facility] Right: Knee [employer] [id number] 04/01/2028 [id number] / / [id number] Procedures Procedure Name Priority Date/Time Associated Diagnosis Comments PROTIME-INR Routine 09/28/2024 PROTIME-INR Routine 09/14/2024 PROTIME-INR Routine 09/06/2024 SURGICAL PATHOLOGY Routine 08/29/2024 9:51 AM CDT Gastric ulcer without hemorrhage or perforation, unspecified chronicity ESOPHAGOGASTRODUODENOSCOPY BIOPSY 08/29/2024 9:47 AM CDT Gastric ulcer without hemorrhage or perforation, unspecified chronicity EGD 08/29/2024 9:46 AM CDT PROTIME-INR Routine 08/25/2024 SCAN - LABS 08/18/2024 PROTIME-INR Routine 08/18/2024 PROTIME-INR Routine 08/12/2024 PROTIME-INR Routine 08/08/2024 SCAN - LABS 07/27/2024 PROTIME-INR Routine 07/27/2024 PROTIME-INR Routine 07/13/2024 COLONOSCOPY 06/21/2024 10:32 AM CDT SCREENING MAMMOGRAM BILATERA L W THAI Schedule Routine, Read Routine (OP Routine) 02/24/2020 Breast cancer screening by mammogram HM DEXA SCAN Routine 02/21/2019 HM PAP SMEAR WITH HPV Routine 11/17/2018 from Last 3 Months or Most Recently Relevant to Health Maintenance Results * (ABNORMAL) Protime-INR (09/28/2024) INR 2.50(A) 0.90 - 1.10 EXTERNAL LAB Blood Historical Provider MD LAB BLOOD ORDERABLES Antonina l Result EXTERNAL LAB * (ABNORMAL) Protime-INR (09/14/2024) INR 2.70(A) 0.90 - 1.10 EXTERNAL LAB Blood 09/14/2024 Historical Provider MD LAB BLOOD ORDERABLES Antonina l Result EXTERNAL LAB * (ABNORMAL) Protime-INR (09/06/2024) INR 1.70(A) 0.90 - 1.10 [facility] Blood Historical Provider LAB BLOOD ORDERABLES Antonina david Result [facility] * Surgical pathology (08/29/2024 9:51 AM CDT) Tissue (Gastric/Stomach biopsy) 08/29/2024 9:51 AM CDT Tissue specimen (specimen) (Esophageal biopsy) 08/29/2024 9:51 AM CDT Narrative PATHOLOGY [facility] - 08/30/2024 5:14 PM CDT [facility] Department of Pathology [address] [place] [phone] Note to Patients: This report may contain a detailed description of human tissue sent by a health care provider to the laboratory for pathologic evaluation. The content of this report is essential for diagnosis and may provide important critical findings. This information may be unfamiliar to patients to review without a medical professional present. It is advised that the patient review this report in the presence of a health care provider who can answer questions and explain the details. Final Report Patient Name: YESSY NIXON : 1955 (Age: 69) Gender: F Address: [address] [place] [address] Hospital #: [id number] Service: Gastro Location: Patient Type: [facility] OUTPATIENT Taken: 08/29/2024 Received: 08/29/2024 Accessioned: 08/29/2024 Reported: 08/30/2024 Physician(s): Era Graves D.O. Diagnosis: A. Stomach, body and antrum, biopsy: - Antral and oxyntic mucosa with no significant abnormality. - No Helicobacter pylori is seen on H&E stained slides. B. Esophagus, distal, biopsy: - Columnar mucosa with chronic inflammation and reactive epithelial changes. - No goblet cells characteristic of Pack mucosa are seen. - Squamous mucosa with reactive epithelial changes. Ashish Bailon MD, PHD Report Electronically Reviewed and Signed Out By Ashish Bailon MD, PHD 08/30/2024 17:14:33 Specimen(s) Received: A: gastric body and antrum biopsy rule out H. pylori cold biopsy B: distal esophageal biopsy rule out Pack's esophagus cold biopsy Microscopic Description: Unless gross-only is specified, the final diagnosis for each specimen is based on a microscopic examination of each tissue sample. Clinical History: The patient is a 69-year-old woman with a gastric ulcer without hemorrhage or perforation. Operative procedure: Upper GI endoscopy with biopsy. Gross Description Received in two formalin jars labeled with the patient's identifiers. A. Labeled gastric body and antrum biopsy rule out H pylori cold biopsy and consists of four espinosa tissue fragments ranging from 0.1-0.3 cm. Entirely submitted. Labeled A1. Jar 0. B. Labeled distal esophageal biopsy rule out Pack's esophagus cold biopsy and consists of two espinosa tissue fragments each measuring 0.3 cm. Entirely submitted. Labeled B1. Jar 0. [facility]/08/29/2024 15:42 [place], [facility] Microscopic slide review and interpretation for this case was performed at [facility], Department of Surgical Pathology, [address] [facility] [place] [place] [id number], [place] [address] CLIA # [id number] us Hugo Hodge MD LAB PATHOLOGY ORDERABLES Final R esult PATHOLOGY [facility] * EGD (08/29/2024 9:46 AM CDT) Anatomical Region Laterality Modality Other Narrative Procedure Note Hugo Hodge MD - 08/29/2024 9:46 AM CDT [facility] GI ENDOSCOPY Patient Name: Yessy Nixon Procedure Date: 08/29/2024 9:46 AM Date of : 1955 Admit Type: Outpatient Age: 69 Gender: Female Attending MD: Hugo Hodge M.D. Room: [facility] END[facility] ROOM 03 Note Status: Finalized Procedure: Upper GI endoscopy Indications: Follow-up of esophageal ulcer, Follow-up of peptic ulcer Referring MD: Providers: Hugo Hodge M.D. Medicines: Monitored Anesthesia Care Complications: No immediate complications. Procedure: Pre-Anesthesia Assessment: - Prior to the procedure, a History and Physicalwas performed, and patient medications and allergieswere reviewed. The risks and benefits of the procedureand the sedation options and risks were discussed withthe patient. All questions were answered and informed consent was obtained. Patient identification and proposed procedure were verified. After reviewingthe risks and benefits, the patient was deemed in satisfactory condition to undergo the procedure.The anesthesia plan was to use monitored anesthesiacare (MAC). Immediately prior to administration of medications, the patient was re-assessed foradequacy to receive sedatives. The heart rate, respiratory rate, oxygen saturations, blood pressure, adequacyof pulmonary ventilation, and response to care were monitored throughout the procedure. The physical status of the patient was re-assessed after the procedure. The benefits, risks, and alternatives to theprocedure and sedation were discussed and informed consentwas obtained. The scope was passed under direct vision. The GIF-H180 upper endoscope was introduced through the mouth, and advanced to the second part of duodenum. The upper GI endoscopy was accomplished without difficulty. The patient tolerated the procedure well. Findings: The Z-line was irregular and was found in the distal esophagus. Thiswas biopsied with a cold forceps for evaluation to rule out Pack's Esophagus. A 2 cm hiatal hernia was present. Mild inflammation characterized by erythema was found in the stomach. Biopsies were taken with a cold forceps for Helicobacter pyloritesting. The examined duodenum was normal. The cardia and gastric fundus were normal on retroflexion. The exam was otherwise without abnormality. Prior esophageal andgastric ulcers have healed. Impression: - Z-line irregular, in the distal esophagus.Biopsied. - 2 cm hiatal hernia. - Gastritis. Biopsied. - Normal examined duodenum. - The examination was otherwise normal. Prior esophageal and gastric ulcers have healed. Recommendation: - Patient has a contact number available for emergencies. The signs and symptoms of potential delayed complications were discussed with thepatient. Return to normal activities tomorrow. Written discharge instructions were provided to thepatient. - GERD RECOMMENDATIONS given include: anti-reflux maneuvers, avoid acidic foods like oranges and tomatoes, avoidance of spicy foods, avoid eating3-4 hours before bed, elevation of the head of the bed, and weight loss. - Decrease famotidine to 40 mg p.o. daily. - Okay to resume baby aspirin daily if needed fromGI standpoint. Avoid all other NSAIDs. - Await pathology results. - Patient was advised to call GI office and make an appointment if symptoms persist. Hugo Hodge M.D. Hugo Hodge M.D. 08/29/2024 9:56:48 AM . Number of Addenda: 0 Note Initiated On: 08/29/2024 9:46 AM Recognized by the [employer] for promoting quality in endoscopy Hugo Hodge MD ENDOSCOPY PROCEDURES Final Resul t * (ABNORMAL) Protime-INR (08/25/2024) INR 2.40(A) 0.90 - 1.10 EXTERNAL LAB Blood 08/25/2024 us Historical Provider LAB BLOOD ORDERABLES Antonina hernandez Result EXTERNAL LAB * SCAN - LABS (08/18/2024) us Provider Scanning Final Result * (ABNORMAL) Protime-INR (08/18/2024) INR 4.60(A) 0.90 - 1.10 EXTERNAL LAB Blood 08/18/2024 Result [facility] Provider MD LAB BLOOD ORDERABLES Antonina l Result EXTERNAL LAB * (ABNORMAL) Protime-INR (08/12/2024) INR 3.80(A) 0.90 - 1.10 EXTERNAL LAB Blood 08/12/2024 Result [facility] Provider MD LAB BLOOD ORDERABLES Antonina l Result Performing Organization Address [facility]/ZIP Co de Phone Number EXTERNAL LAB * (ABNORMAL) Protime-INR (08/08/2024) INR 4.50(A) 0.90 - 1.10 EXTERNAL LAB Blood 08/08/2024 Result [facility] Provider MD LAB BLOOD ORDERABLES Antonina l Result Performing Organization Address [facility] Co de Phone Number EXTERNAL LAB * SCAN - LABS (07/27/2024) Result [facility] Provider Scanning Final Result * (ABNORMAL) Protime-INR (07/27/2024) INR 2.60(A) 0.90 - 1.10 EXTERNAL LAB Blood 07/27/2024 Result [facility] Provider MD LAB BLOOD ORDERABLES Antonina l Result EXTERNAL LAB * (ABNORMAL) Protime-INR (07/13/2024) INR 3.80(A) 0.90 - 1.10 EXTERNAL LAB Blood Result [facility] Provider MD LAB BLOOD ORDERABLES Antonina l Result EXTERNAL LAB * Colonoscopy (06/21/2024 10:32 AM CDT) Anatomical Region Laterality Modality Other Narrative Procedure Note Hugo Hodge MD - 06/21/2024 10:32 AM CDT [facility] GI ENDOSCOPY Patient Name: Yessy Nixon Procedure Date: 06/21/2024 10:32 AM Date of : 1955 Admit Type: Outpatient Age: 68 Gender: Female Attending MD: Hugo Hodge M.D. Room: [facility] 03 Note Status: Finalized Procedure: Colonoscopy Indications: Screening for colorectal malignant neoplasm Referring MD: Providers: Hugo Hodge M.D. Medicines: Monitored Anesthesia Care Complications: No immediate complications. Estimated Blood Loss: Estimated blood loss: none. Procedure: Pre-Anesthesia Assessment: - Prior to the procedure, a History and Physicalwas performed, and patient medications and allergieswere reviewed. The risks and benefits of the procedureand the sedation options and risks were discussed withthe patient. All questions were answered and informed consent was obtained. Patient identification and proposed procedure were verified. After reviewingthe risks and benefits, the patient was deemed in satisfactory condition to undergo the procedure.The anesthesia plan was to use monitored anesthesiacare (MAC). Immediately prior to administration of medications, the patient was re-assessed foradequacy to receive sedatives. The heart rate, respiratory rate, oxygen saturations, blood pressure, adequacyof pulmonary ventilation, and response to care were monitored throughout the procedure. The physical status of the patient was re-assessed after the procedure. The benefits, risks and alternatives of theprocedure and sedation were discussed and informed consentwas obtained. All questions were answered. Please referto the signed informed consent document in the medical record. The scope was passed under direct vision.The Colonoscope was introduced through the anus and advanced to the cecum, identified by appendiceal orifice and ileocecal valve. The colonoscopy was performed without difficulty. The patient tolerated the procedure well. The quality of the bowel preparation was good. Scope withdrawal time was 10 minutes. Prep was administered in a split dose. Findings: The perianal and digital rectal examinations were normal. A 10 mm polyp was found in the cecum. The polyp was removed with ahot snare. Resection and retrieval were complete. To prevent bleeding post-intervention, one hemostatic clip was successfully placed. Clip manager party: [employer]. There was no bleeding at the end ofthe procedure. A 10 mm polyp was found in the hepatic flexure. The polyp wassessile. The polyp was removed with a hot snare. Resection and retrieval were complete. To prevent bleeding post-intervention, one hemostatic clipwas successfully placed. Clip manager party: [employer]. There wasno bleeding at the end of the procedure. Multiple medium-mouthed diverticula were found in the sigmoid colon, descending colon and ascending colon. Non-bleeding internal hemorrhoids were found during retroflexion. The hemorrhoids were small. The exam was otherwise without abnormality. Impression: - One 10 mm polyp in the cecum, removed with a hot snare. Resected and retrieved. Clip was placed.Clip manager party: [employer]. - One 10 mm polyp at the hepatic flexure, removedwith a hot snare. Resected and retrieved. Clip wasplaced. Clip manager party: [employer]. - Diverticulosis in the sigmoid colon, in the descending colon and in the ascending colon. - Non-bleeding internal hemorrhoids. - The examination was otherwise normal. Recommendation: - Patient has a contact number available for emergencies. The signs and symptoms of potential delayed complications were discussed with thepatient. Return to normal activities tomorrow. Written discharge instructions were provided to thepatient. - High fiber diet. - Continue present medications. - Await pathology results. - Repeat colonoscopy in 3 years for surveillance. Hugo Hodge M.D. Hugo Hodge M.D. 06/21/2024 11:11:13 AM . Number of Addenda: 0 Note Initiated On: 06/21/2024 10:32 AM Recognized by the [employer] for promoting quality in endoscopy Hugo Hodge MD ENDOSCOPY PROCEDURES Final Resul t * Screening Mammogram Bilateral W Thai (02/24/2020) Anatomical Region Laterality Modality Breast Bilateral Mammography Impressions 02/24/2020 Recommend routine F/U in one year. BI-RADS Category 1: negative Helena DAVEY IMG MAMMO PROCEDURES Final Result * DEXA SCAN (02/21/2019) DEXA Scan Abnormal Comment:Moise-Spine (-0.8 ), LT Hip (-1.3), RT Hip (-1.1) Historical Provider HEALTH MAINTENANCE Final Result * PAP SMEAR WITH HPV (11/17/2018) Pap smear Normal Narrative Helena Yu PA - 11/17/2018 Neg (atrophic) with negative HPV Historical Provider HEALTH MAINTENANCE Final Result from Last 3 Months or Most Recently Relevant to Health Maintenance Insurance [employer] P[employer] Advance Directives For more information, please contact: [phone] * Full Code (Latest Code Status on File) Date Activated Date Inactivated Comments 08/24/2023 5:34 PM 08/25/2023 6:10 PM Care Teams Concrete Bucket Loader Relationship Specialty Start Date End Date Sanket Waldron DO [address] [place] [id number] PCP - General 05/26/23 Adrien Camejo MD [address] [facility] [address] [place] [address] Consulting Physician Orthopedic Surgery 08/25/23
--- OUTSIDE RECORDS SUMMARY | 2024-10-10 12:54 | XMS_ITS | Encounter Summary ---
Author Organization [facility] Address [address] [place] [address] Care Team Providers Care Inclinometer Tester Name Role Phone KonstantinyolandaandreySanket shen DO Primary Care Provide r Adrien Camejo MD Unavailable [phone] Encounter Details Date Type Department Care Team (Late st Contact Info) Description 08/18/2024 Orders Only [facility] Health Information Management [address] [place] [id number] Scanning, Provider Social History Tobacco Use Types [...] on file Legal Sex Female 8:13 AM [employer] Gender Identity Female 06/01/2020 9:42 PM [employer] Sexual Orientation Straight 06/01/2020 9: 42 PM [employer] 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 [address] [place] [address] Yuri Ferraro MD [address] [place] [address] Bicuspid aortic valve (Primary Dx); H/O mechanical aortic valve replacement; Chronic anticoagulation documented as of this encounter Procedures Procedure Name Priority Date/Time Associated Diagnosis Comments SCAN - LABS 08/18/2024 documented in this encounter Results * SCAN - LABS (08/18/2024) us Provider Scanning Final Result documented in this encounter Visit Diagnoses Not on filedocumented in this encounter Care Teams Inclinometer Tester Relationship Specialty Start Date End Date Sanket Waldron DO [address] [place] [id number] PCP - General 05/26/23 Adrien Camejo MD [address] [address] [place] [address] Consulting Physician Orthopedic Surgery 08/25/23 documented as of this encounter
[2024-10-10 13:48] LABS: Basophils Absolute Auto 0.1 K/mm3 (0.0-0.1); Basophils Percent Auto 0.8 % (0.2-1.2); Eosinophils Absolute Auto 0.2 K/mm3 (0-0.3); Eosinophils Percent Auto 2.3 % (0-4.4); Hemoglobin 12.7 g/dL (12.0-15.0); Immature Granulocyte Absolute 0.03 K/mm3 (0.00-0.031); Immature Granulocyte Percent A 0.5 % (0-0.5); Lymphocytes Absolute Auto 1.28 K/mm3 (0.9-3.2); Lymphocytes Percent Auto 19.6 % (18.3-44.2); Mean Corpuscular HGB Conc 32.6 g/dl (32-36); Mean Corpuscular Hemoglobin 31.4 pg (26-34); Mean Corpuscular Volume 96.5 fl (80-100); Mean Platelet Volume 10.2 fl (7.4-10.4); Monocytes Absolute Auto 0.6 K/mm3 (0.1-0.6); Monocytes Percent Auto 8.7 % (2.6-8.5); Neutrophils Absolute Auto 4.5 K/mm3 (1.3-6.7); Neutrophils Percent Auto 68.1 % (45.5-73.1); Platelet Count Result 225 k/mm3 (150-375); Red Blood Count 4.04 M/mm3 (4.2-5.4); White Blood Count 6.5 K/mm3 (4.5-10.0)
[2024-10-10 14:10] LABS: CRP. 1.3 mg/dL (<1.0); Creatine Kinase 102 U/L (30-135); Rheumatoid Factor. < 12.0 IU/ML (<12)
[2024-10-10 14:24] LABS: Erythrocyte Sedimentation Rate 30 mm/hr (0-20)
[2024-10-12 15:13] LABS: Cyclic Citrullinated Peptide. <16 UNITS
== END 2024-10-10 12:46 | disposition home or self-care (01) ==
LOC: ANHLAB 12:49
PROVIDERS: PCP Student in an Organized Health Care Education/Training Program; Visit Provider Student in an Organized Health Care Education/Training Program
DX: M47.892 Other spondylosis, cervical region (principal); M17.12 Unilateral primary osteoarthritis, left knee; Z96.651 Presence of right artificial knee joint
CPT/HCPCS: 36415; 72040; 73030; 73562; 82550; 85025; 85652; 86038; 86039; 86140; 86200; 86430

== ENCOUNTER 2024-10-26 06:46 | Outpatient (RCR) | payer OTHER, SELFPAY ==
[2024-09-14 08:27] LABS: INR 2.7; Prothrombin Time 28.3 Seconds (11.1-14.7)
[2024-09-28 07:34] LABS: INR 2.5; Prothrombin Time 26.6 Seconds (11.1-14.7)
[2024-10-26 08:22] LABS: INR 3.1; Prothrombin Time 31.1 Seconds (11.1-14.7)
== END 2024-11-23 06:43 | disposition home or self-care (01) ==
LOC: ANHLAB 06:46
PROVIDERS: PCP Student in an Organized Health Care Education/Training Program; Visit Provider Nurse Practitioner Adult Health
DX: Z51.81 Encounter for therapeutic drug level monitoring (principal); Z79.01 Long term (current) 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s; Z95.2 Presence of prosthetic heart valve
CPT/HCPCS: 36415; 85610

== ENCOUNTER 2025-02-16 09:35 | Outpatient (RCR) | payer OTHER, SELFPAY ==
[2024-11-23 08:35] LABS: INR 2.5; Prothrombin Time 26.9 Seconds (11.1-14.7)
[2024-12-21 07:33] LABS: INR 3.4; Prothrombin Time 33.6 Seconds (11.1-14.7)
[2025-01-16 07:51] LABS: INR 3.7; Prothrombin Time 34.9 Seconds (11.1-14.7)
[2025-01-25 09:02] LABS: INR 2.8; Prothrombin Time 28.7 Seconds (11.1-14.7)
[2025-02-16 10:34] LABS: INR 3.2; Prothrombin Time 31.9 Seconds (11.1-14.7)
== END 2025-02-21 23:59 | disposition home or self-care (01) ==
LOC: ANHLAB 09:35
PROVIDERS: PCP Family Medicine; Visit Provider Internal Medicine
DX: Z95.2 Presence of prosthetic heart valve (principal); Z79.01 Long term (current) 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s
CPT/HCPCS: 36415; 85610

== ENCOUNTER 2025-02-16 09:51 | Outpatient (CLI) | payer OTHER, SELFPAY ==
--- OUTSIDE RECORDS SUMMARY | 2004-03-13 09:30 | XMS_ITS | Continuity of Care Document ---
Author Organization [facility] Address 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 [address] , [address], [place], [address], [place]. tel:[phone] Family History Family Member Type Diagnosis Age At Onset No Information Payers Payer name Insurance type Covered green party ID Authoriza tion(s) No Information Social History Type Description Quantity Date Captured Comments Sex Female Smoking Status No Information Chief Complaint And Reason For Visit No Information Reason For Referral Reason For Referral No Information History Of Present Illness Encounter Date Complaint History Of Prese nt Illness No Information Functional Status Date Functional Assessmen t No Information Instructions Date Instruction Additional Infor mation No Information Assessments Type Assessment Date No Information Patient Care Teams Name Effective Dates (start - stop) Status Members No Information
--- OUTSIDE RECORDS SUMMARY | 2004-03-13 09:30 | XMS_ITS | Continuity of Care Document ---
Author Organization [facility] Address [address] [facility] [address] [place] [address] Phone Care Team Providers Care Lead Operator Name Role Phone Rio Kong Unavailable Unavailable Advance Directives Directive Yes / No Effective Date File Name No Information Encounters Encounter Description Practice Location Reason(s) For Visit Diagnoses Date Provider Providers Copied on Encounter [facility], [address], [place], [place], [id number], [place] tel:[phone] [facility] No Information Dec-0 1-200 4 Richsy Edjaida. [address] , [address], [place], [address], [place]. tel:[phone] Family History Family Member Type Diagnosis Age At Onset No Information Payers Payer name Insurance type Covered democrat ID Authoriza tion(s) No Information Social History [...]
--- OUTSIDE RECORDS SUMMARY | 2024-06-16 04:20 | XMS_ITS | Continuity of Care Document ---
Author Organization [facility] Address [address] [place] [address] Phone Care Team Providers Care Overlock Elastic Attacher Name Role Phone Bashir TORRES MD, Adrien Parson Unavailable Allergies, Adverse Reactions, Alerts Substance Reaction Status Criticality METHYLPREDNISOLONE ACETATE Active N o Information pregabalin Active No Information Medications Medication Instructions Dosage Effective Dates (start - stop) Status Comments aspirin 81 mg tablet,delayed release Take 1 tablet (81 mg total) by mouth daily. - Active cholecalciferol (vitamin D3) 25 mcg (1,000 unit) capsule - Active cyanocobalamin (vit B-12) 1,000 mcg tablet - Active warfarin 1 mg tablet - Active gabapentin 100 mg capsule - Active atorvastatin 10 mg tablet - Active latanoprost 0.005 % eye drops instill 1 drop by ophthalmic route every day into affected eye(s) in the evening 1.00 drop - Active Procedures Procedure Date BMI Documented Above Normal Limit F/U Pl an Doc X-ray exam knee, 3 views Office/outpatient visit,est, mod 2024 BMI Documented Above Normal Limit F/U Pl an Doc Office/outpatient visit,est, mod 2023 Global/Postop followup visit Global/Postop followup visit Global/Postop followup visit X-ray exam knee, 3 views Total Knee Replacement Revision of kneecap Patients with documented shared decision -making Patients who are evaluated for venous th romboembol BMI Documented Above Normal Limit F/U Pl [facility] Doc [facility] Advance Directives Directive Yes / No Effective Date File Name No Information Encounters Encounter Description Practice Location Reason(s) For Visit Diagnoses Date Provider Providers Copied on Encounter Office/outpat ient visit,[facility], [facility], [address] [place] [address], [id number], [place] tel:[phone] [facility] [employer] r knee (chief complaint) Presence of right artificial knee joint 5 Bashir Jurado. [address] [place] [address], [id number] , [place]. tel: [phone] Referring Provider: Adrien Longo, [address] [place] [address], [address] . tel:[phone] Office/outpat ient visit,est, [facility], [address], [id number], [place] tel:[phone] [facility] [employer] r knee (chief complaint) Presence of right artificial knee joint 0 4 Bashir Jurado. [address] [place] [address], [id number] , [place]. tel:[phone] Referring Provider: Adrien Longo, [address] [place] [address], [address] . tel:[phone] [facility], [address] [place] [address], [id number], [place] tel:[phone] [facility] [employer] r knee (chief complaint) Presence of right artificial knee joint 4 Bashir Jurado. [address] [place] [address], [id number] , [place]. tel:[phone] Referring Provider: Adrien Camejo MD S, [address] [place], [address] . tel:[phone] [facility], [address] [address], [place], [place], [id number], [place] tel:[phone] [facility] Follow Up of right knee (chief complaint) Presence of right artificial knee joint Oct-1 1- [address] [facility] [place] [address], [place], [place], [id number] , [place]. tel:[phone] Referring Provider: Adrien Longo, [address] [address], [place], [address] . tel:[phone] [facility], [address] [address], [place], [place], [id number], [place] tel:[phone] [facility] Presence of right artificial knee joint Oct-0 3- 4 Bashir Jurado. [address] [address], [place], [place], [id number] , [place]. tel: [phone] [facility], [address], [id number], [place] tel:[phone] [facility] Presence of right artificial knee joint Coleman-2 0- 4 Bashir Jurado. [address] [facility] [place] [address], [place], [place], [id number] , [place]. tel:[phone] [facility], [address] [address], [place], [place], [id number], [place] tel:[phone] [facility] r knee (chief complaint) Presence of right artificial knee joint Coleman- 3- 4 Bashir Jurado. [address] [address], [place], [place], [id number] , [place]. tel:[phone] Referring Provider: Adrien Longo, [address] [address], [place], [address] . tel:[phone] [facility], [address], [id number], [place] tel:[phone] [facility] Primary OA of right knee 4 Bashir Jurado. [address] [facility], [place], [place], [id number] , [place]. tel:[phone] Referring Provider: Adrien Longo, [address] [facility] [address], [place], [address] . tel:[phone] [facility], [address] [facility] [address], [place], [place], [id number], [place] tel:[phone] [facility] Primary OA of right knee 4 Bashir Jurado. [address] [facility], [address], [place], [place], [id number] , [place]. tel:[phone] [facility], [address] [address], [place], [place], [id number], [place] tel:[phone] [facility] [employer] Primary OA of left knee Jul-0 4 Bashir Jurado. [address] [facility], [address], [place], [place], [id number] , [place]. tel: [phone] [facility], [address] [address], [place], [place], [id number], [place] tel:[phone] [facility] Primary OA of right knee Jun- 4 Bashir Jurado. [address] [facility], [place] [address], [place], [place], [id number] , [place]. tel:[phone] [facility], [address], [id number], [place] tel:[phone] [facility] No Information Jun- [address] [facility], [place] [address], [place], [place], [id number] , [place]. tel:[phone] Office/outpat ient visit,new, [facility], [address] [address], [place], [place], [id number], [place] tel:[phone] [facility] r knee (chief complaint) Primary OA of right kneePrimary OA of left knee Bashir Jurado. [address] [facility], [address], [place], [place], [id number] , [place]. tel: [phone] Referring Provider: Adrien Camejo MD S, [address] [facility] [address], [place], [address] . tel:[phone] Family History Family Member Type Diagnosis Age At Onset Sister Problem (finding) Cancer, unknown Sister Problem (finding) Diabetes Father Problem (finding) Heart Disease Father Problem (finding) Osteoarthritis Mother Problem (finding) Stroke Payers Payer name Insurance type Covered republican ID Shellie chung(s) [facility] [id number] Social History Type Description Quantity Date Captured Comments Alcohol Use Details Unknown Caffeine Use Details Unknown Tobacco Use Status No Information Smoking Status No Information Non-Smoking Tobacco Use Details : No Details Available : No Details Available Sex Female Vital Signs Date / Time: Height Weight BMI Pulse Rate Blood Pressure Temperature Respiratory Rate Body Surface Area Head Circumference Head Circ. Percentile Wt./Adriel. Percentile BMI percentile Pulse Ox Inhaled Ox 10:31 AM 61.00 in 58.967 kg (130.00 lbs) 24.5 6 kg/m eter (2) 1.59 meter(2) Chief Complaint And Reason For Visit From encounter dated '06/16/2024 10:20'. r knee (chief complaint). Description: patient presents to the office today for right tka Reason For Referral Reason For Referral No Information Plan Of Treatment Date Type Action Status Referral Ordered: X-ray exam knee, 3 views RT knee ordered History Of Present Illness Encounter Date Complaint History Of Prese nt Illness r knee patient presents to the office today for right tka r knee patient presents to the office today for follow up r tka r knee patient presents to the office today for follow up r tka Follow Up of right knee Florecita cruz presents to office for follow-up on right total knee arthroplasty that was done on 09/24/23. r knee patient presents to the office today for follow up r tka r knee patient presents to the office today for evaluation of bilat knees Functional Status Date Functional Assessmen t No Information Instructions Date Instruction Additional Infor mation No Information Assessments Type Assessment Date assessment Presence of right artificial kne e joint Patient Care Teams Name Effective Dates (start - stop) Status Members No Information
--- OUTSIDE RECORDS SUMMARY | 2024-06-16 04:20 | XMS_ITS | Continuity of Care Document ---
Author Organization [facility] Address [address] [place] [address] Phone Care Team Providers Care Lug Breaker And Wire Puller Name Role Phone Bashir TORRES MD, Adrien [...] Normal Limit F/U Pl an Doc [facility] Advance Directives Directive Yes / No Effective Date File Name No Information Encounters Encounter Description Practice Location Reason(s) For Visit Diagnoses Date Provider Providers Copied on Encounter Office/outpat ient visit,[facility], [facility], [address] [place] [address], [id number], [place] tel:[phone] [facility] knee (chief complaint) Presence of right artificial knee joint 5 Bashir Jurado. [address] [place] [address], [id number] , [place]. tel: [phone] Referring Provider: Adrien Longo, [address] [place] [address], [address] . tel:[phone] Office/outpat ient visit,est, [facility], [address], [id number], [place] tel:[phone] [facility] knee (chief complaint) Presence of right artificial knee joint 0 4 Bashir Jurado. [address] [place] [address], [id number] , [place]. tel:[phone] Referring Provider: Adrien Longo, [address] [place] [address], [address] . tel:[phone] [facility], [address] [place] [address], [id number], [place] tel:[phone] [facility] knee (chief complaint) Presence of right artificial knee joint 4 Bashir Jurado. [address] [place] [address], [id number] , [place]. tel:[phone] Referring Provider: Adrien Camejo MD S, [address] [place], [address] . tel:[phone] [facility], [address] [address], [place], [place], [id number], [place] tel:[phone] [facility] Follow Up of right knee (chief complaint) Presence of right artificial knee joint Oct-1 1- 4 Bashir Jurado. [address] [facility] [address], [place], [place], [id number] , [place]. tel:[phone] Referring Provider: Adrien Longo, [address] [address], [place], [address] . tel:[phone] [facility], [address] [address], [place], [place], [id number], [place] tel:[phone] [facility] Presence of right artificial knee joint Oct-0 3- 4 Bashir Jurado. [address] [address], [place], [place], [id number] , [place]. tel:[phone] [facility], [address], [id number], [place] tel:[phone] [facility] Presence of right artificial knee joint Coleman-2 0- 4 Bashir Jurado. [address] [facility], [address] [address], [place], [place], [id number] , [place]. tel:[phone] [facility], [address] [address], [place], [place], [id number], [place] tel:[phone] [facility] r knee (chief complaint) Presence of right artificial knee joint Coleman- 3- 4 Bashir Jurado. [address] [address], [place], [place], [id number] , [place]. tel:[phone] Referring Provider: Adrien Longo, [address] [address], [place], [address] . tel:[phone] [facility], [address], [id number], [place] tel:[phone] [facility] Primary OA of right knee 4 Bashir Jurado. [address] [facility], [address], [place], [place], [id number] , [place]. tel:[phone] Referring Provider: Adrien Longo, [address] [facility] [address], [place], [address] . tel:[phone] [facility], [address] [facility] [address], [place], [place], [id number], [place] tel:[phone] [facility] Primary OA of right knee 4 Bashir Jurado. [address] [facility], [address], [place], [place], [id number] , [place]. tel:[phone] [facility], [address] [address], [place], [place], [id number], [place] tel:[phone] [facility] Primary OA of left knee Jul-0 4 Bashir Jurado. [address] [facility], [address], [place], [place], [id number] , [place]. tel: [phone] [facility], [address] [address], [place], [place], [id number], [place] tel:[phone] [facility] Primary OA of right knee Jun- 4 Bashir Jurado. [address] [facility], [address] [address], [place], [place], [id number] , [place]. tel:[phone] [facility], [address], [id number], [place] tel:[phone] [facility] No Information Jun- 4 Bashir Jurado. [address] [facility], [address] [address], [place], [place], [id number] , [place]. tel:[phone] Office/outpat ient visit,new, [facility], [address] [address], [place], [place], [id number], [place] tel:[phone] [facility] r knee (chief complaint) Primary OA of right kneePrimary OA of left knee Bashir Jurado. [address] [facility], [address], [place], [place], [id number] , [place]. tel: [phone] Referring Provider: Adrien Camejo MD S, [address] [facility] [address], [place], [address] . tel:[phone] Family History Family Member Type Diagnosis Age At Onset Sister Problem (finding) Cancer, unknown Sister Problem (finding) Diabetes Father Problem (finding) Heart Disease Father Problem (finding) Osteoarthritis Mother Problem (finding) Stroke Payers Payer name Insurance type Covered libertarian ID Shellie chung(s) [facility] [id number] Social History Type Description Quantity Date Captured [...]
--- OUTSIDE RECORDS SUMMARY | 2024-11-30 01:15 | XMS_ITS | Continuity of Care Document ---
Author Organization [employer] [place] Address [address] [place] [address] Phone Care Team Providers Care [employer] Engineer Name Role Phone Aleyda PT, CMPT, Rosalio Unavailable Bernarda vailable Procedures Procedure Date Therapeutic Activities Neuromuscular Re-Ed Therapeutic Exercise Hot or Cold Pack Therapeutic Activities Neuromuscular Re-Ed Therapeutic Activities Neuromuscular Re-Ed Therapeutic Exercise Therapeutic Activities Neuromuscular Re-Ed Therapeutic Activities Neuromuscular Re-Ed Therapeutic Activities Neuromuscular Re-Ed Therapeutic Exercise Therapeutic Activities Neuromuscular Re-Ed Therapeutic Exercise Doc neg elder mal no plan PRES/ABSN URINE INCON ASSESS PT Evaluation Moderate Complexity Therapeutic Activities Neuromuscular Re-Ed Therapeutic Exercise Therapeutic Activities Neuromuscular Re-Ed Therapeutic Activities Neuromuscular Re-Ed Therapeutic Activities Neuromuscular Re-Ed Progress Note Therapeutic Activities Neuromuscular Re-Ed Therapeutic Activities Neuromuscular Re-Ed Therapeutic Activities Neuromuscular Re-Ed Therapeutic Activities Neuromuscular Re-Ed Therapeutic Activities Neuromuscular Re-Ed Therapeutic Activities Neuromuscular Re-Ed Therapeutic Activities Neuromuscular Re-Ed Therapeutic Activities Neuromuscular Re-Ed Therapeutic Activities Neuromuscular Re-Ed Doc neg elder mal no plan PRES/ABSN URINE INCON ASSESS PT Evaluation Moderate Complexity Therapeutic Activities Neuromuscular Re-Ed Therapeutic Activities Neuromuscular Re-Ed Therapeutic Activities Neuromuscular Re-Ed Therapeutic Activities Neuromuscular Re-Ed Therapeutic Activities Neuromuscular Re-Ed Therapeutic Activities Neuromuscular Re-Ed Therapeutic Activities Neuromuscular Re-Ed Therapeutic Activities Neuromuscular Re-Ed Therapeutic Activities Neuromuscular Re-Ed Therapeutic Activities Neuromuscular Re-Ed Therapeutic Activities Neuromuscular Re-Ed Therapeutic Activities Neuromuscular Re-Ed Therapeutic Activities Neuromuscular Re-Ed Therapeutic Activities Neuromuscular Re-Ed Therapeutic Activities Neuromuscular Re-Ed Therapeutic Activities Neuromuscular Re-Ed Therapeutic Activities Neuromuscular Re-Ed Therapeutic Activities Neuromuscular Re-Ed Therapeutic Activities Neuromuscular Re-Ed Therapeutic Activities Neuromuscular Re-Ed Therapeutic Activities Neuromuscular Re-Ed Therapeutic Activities Neuromuscular Re-Ed Therapeutic Activities Neuromuscular Re-Ed Therapeutic Activities Neuromuscular Re-Ed Therapeutic Activities Neuromuscular Re-Ed Therapeutic Activities Neuromuscular Re-Ed Therapeutic Activities Neuromuscular Re-Ed Progress Note Therapeutic Activities Neuromuscular Re-Ed Therapeutic Activities Neuromuscular Re-Ed Therapeutic Activities Neuromuscular Re-Ed Therapeutic Activities Neuromuscular Re-Ed Therapeutic Activities Neuromuscular Re-Ed Therapeutic Activities Neuromuscular Re-Ed Therapeutic Activities Neuromuscular Re-Ed Therapeutic Activities Neuromuscular Re-Ed Therapeutic Activities Neuromuscular Re-Ed Therapeutic Exercise Therapeutic Activities Neuromuscular Re-Ed Therapeutic Exercise Progress Note Neuromuscular Re-Ed Therapeutic Activities Therapeutic Exercise Therapeutic Activities Neuromuscular Re-Ed Therapeutic Exercise Therapeutic Activities Neuromuscular Re-Ed Therapeutic Exercise Therapeutic Activities Neuromuscular Re-Ed Therapeutic Exercise Therapeutic Activities Neuromuscular Re-Ed Therapeutic Activities Neuromuscular Re-Ed Therapeutic Activities Neuromuscular Re-Ed Therapeutic Activities Neuromuscular Re-Ed Therapeutic Exercise Therapeutic Activities Neuromuscular Re-Ed Doc neg elder mal no plan PRES/ABSN URINE INCON ASSESS PT Evaluation Moderate Complexity Therapeutic Activities Neuromuscular Re-Ed Therapeutic Exercise Therapeutic Activities Neuromuscular Re-Ed Therapeutic Activities Neuromuscular Re-Ed Therapeutic Activities Neuromuscular Re-Ed Therapeutic Activities Neuromuscular Re-Ed Doc neg elder mal no plan PRES/ABSN URINE INCON ASSESS PT Re-evaluation Therapeutic Activities Neuromuscular Re-Ed Therapeutic Activities Neuromuscular Re-Ed Therapeutic Activities Neuromuscular Re-Ed Therapeutic Activities Neuromuscular Re-Ed Therapeutic Activities Neuromuscular Re-Ed Therapeutic Activities Neuromuscular Re-Ed Therapeutic Activities Neuromuscular Re-Ed Therapeutic Activities Neuromuscular Re-Ed Therapeutic Activities Neuromuscular Re-Ed Therapeutic Activities Neuromuscular Re-Ed Doc neg elder mal no plan PRES/ABSN URINE INCON ASSESS PT Evaluation High Complexity Therapeutic Activities Neuromuscular Re-Ed Therapeutic Exercise Advance Directives Directive Yes / No Effective Date File Name No Information Encounters Encounter Description Practice Location Reason(s) For Visit Diagnoses Date Provider Providers Copied on Encounter [facility] [address] [place] [id number], tel:[phone] [place] No Information José Miguel Santamaria. [address] [place] [address], [address] [place] [address]. tel:[phone] Referring Provider: Sanket Waldron, [address] [place] [address], [facility]. tel:[phone] [place] [address], [id number], tel:[phone] [place] No Information Odalisrtisabel Winslow. . Referring Provider: Sanket Waldron, [address] [place] [address], [facility]. tel:[phone], [id number], tel:[phone] [place] No Information Odalisrtisabel Winslow. . Referring Provider: Sanket Waldron, [address] [place] [address], [facility]. tel:[phone] [place] [address], [id number], tel:[phone] [place] No Information José Miguel Santamaria. [address] [place] [address], [address] [place] [address], . tel:[phone] Referring Provider: Sanket Waldron [address] [place] [address], [facility]. tel:[phone], [id number], tel:[phone] [place] No Information Odalisrtz Nayla. . Referring Provider: Sanket Waldron, [address] [place] [address], [address]. tel:[phone], [id number], tel:[phone] [facility] No Information Lurtz Nayla. . Referring Provider: Sanket Waldron, [address] [place] [address], [address]. tel:[phone], [id number], tel:[phone] [facility] No Information Lurtz Nayla. . Referring Provider: Sanket Waldron, [address] [place] [address], [address]. tel:[phone] [place] [address], [id number], tel:[phone] [facility] No Information José Miguel Santamaria. [address] [facility], [address], [place], [facility], . tel:[phone] Referring Provider: Sanket Waldron, [address] [place] [address], [address]. [phone] [place] [address], [id number], tel:[phone] [facility] No Information Diego Bautista. . Referring Provider: Sanket Waldron, [address] [place] [address], [address]. tel:[phone], [id number], tel:[phone] [facility] No Information Diego Bautista. . Referring Provider: Sanket Waldron, [address] [place] [address], [address]. tel:[phone] [facility] [address] [place] [address], [id number], [place] tel:[phone] [place] No Information Diego Michele. . Referring Provider: Sanket Waldron, [address] [place] [address], [address]. tel:[phone], [id number], [place] tel:[phone] [place] No Information Diego Michele. . Referring Provider: Sanket Waldron, [address] [place] [address], [address]. tel:[phone] [facility], [address] [place] [address], [id number], tel:[phone] [place] No Information Diego Michele. . Referring Provider: Sanket Waldron, [address] [place] [address], [address]. tel:[phone] [place] [address], [id number], tel:[phone] [place] No Information Diego Michele. . Referring Provider: Sanket Waldron, [address] [place] [address], [address]. tel:[phone] [facility] [address] [place] [address], [id number], [place] tel:[phone] [place] No Information Diego Michele. . Referring Provider: Sanket Waldron, [address] [place] [address], [address]. tel:[phone] [facility], [address] [place] [address], [id number], [place] tel:[phone] [place] No Information Diego Michele. . Referring Provider: Sanket Waldron, [address] [place] [address], [address]. tel:[phone], [id number], tel:[phone] [place] No Information Diego Michele. . Referring Provider: Sanket Waldron, [address] [place] [address], [address]. tel:[phone], [id number], [place] tel:[phone] [place] No Information Diego Michele. . Referring Provider: Sanket Waldron, [address] [place] [address], [address]. tel:[phone] [place] [address], [id number], [place] tel:[phone] [place] No Information Diego Michele. . Referring Provider: Sanket Waldron, [address] [place] [address], [address]. tel:[phone], [id number], tel:[phone] [place] No Information Diego Michele. . Referring Provider: Sanket Waldron, [address] [place] [address], [address]. tel:[phone], [id number], [place] tel:[phone] [place] No Information Diego Michele. . Referring Provider: Sanket Waldron, [address] [place] [address], [address]. tel:[phone], [id number], [place] tel:[phone] [place] No Information Diego Michele. . Referring Provider: Adrien Camejo, [address], [place], [address]. tel:[phone] [facility], [address], [place], [place], [id number], tel:[phone] [place] No Information Lurtz Nayla. . Referring Provider: Adrien Camejo, [address], [place], [address]. tel:[phone] [facility], [facility] [address], [place], [place], [id number], tel:[phone] [place] No Information Lurtz Nayla. . Referring Provider: Adrien Camejo, [address], [place], [address]. tel:[phone] [facility], [address], [place], [place], [id number], [place] tel:[phone] [place] No Information Diego Michele. . Referring Provider: Adrien Camejo, [address], [place], [address]. tel:[phone] [facility], [address], [place], [place], [id number], [place] tel:[phone] [place] No Information Diego Michele. . Referring Provider: Adrien Camejo, [address], [place], [address]. tel:[phone] [facility], [address], [place], [id number], [place] tel:[phone] [place] No Information Diego Michele. . Referring Provider: Adrien Camejo, [address], [place], [address]. tel:[phone] [facility], [address], [place], [place], [id number], [place] tel:[phone] [place] No Information Russell Pemberton . Referring Provider: Adrien Camejo, [address], [place], [address]. tel:[phone] [facility], [address], [place], [id number], [place] tel:[phone] [place] No Information Diego Michele. . Referring Provider: Adrien Camejo, [address], [place], [address]. tel:[phone] [facility], [address], [place], [place], [id number], [place] tel:[phone] [place] No Information Diego Michele. . Referring Provider: Adrien Camejo, [address], [place], [address]. tel:[phone] [facility], [address], [place], [place], [id number], [place] tel:[phone] [place] No Information Diego Michele. . Referring Provider: Adrien Camejo, [address], [place], [address]. tel:[phone] [facility], [address], [place], [id number], [place] tel:[phone] [place] No Information Diego Michele. . Referring Provider: Adrien Camejo, [address], [place], [address]. tel:[phone] [facility], [address], [place], [place], [id number], [place] tel:[phone] [place] No Information Diego Michele. . Referring Provider: Adrien Camejo, [address], [place], [address]. tel:[phone] [facility], [address], [place], [place], [id number], tel:[phone] [place] No Information Lurtz Nayla. . Referring Provider: Adrien Camejo, [address], [place], [address]. tel:[phone] [facility], [address], [place], [id number], [place] tel:[phone] [place] No Information Lurtz Nayla. . Referring Provider: Adrien Camejo, [address], [place], [address]. tel:[phone] [facility], [address], [place], [place], [id number], [place] tel:[phone] [place] No Information Diego Garzonyn. . Referring Provider: Adrien Camejo, [address], [place], [address]. tel:[phone] [facility], [address], [place], [place], [id number], tel:[phone] [place] No Information Diego Garzonyn. . Referring Provider: Adrien Camejo, [address], [place], [address]. tel:[phone] [facility], [address], [place], [place], [id number], [place] tel:[phone] [place] No Information Diego Garzonyn. . Referring Provider: Adrien Camejo, [address], [place], [address]. tel:[phone] [facility], [place], [place], [address], [place] tel:[phone] [place] No Information Diego Michele. . Referring Provider: Adrien Camejo, [address], [place], [address]. tel:[phone] [facility], [address], [place], [place], [id number], tel:[phone] [place] No Information Diego Michele. . Referring Provider: Adrien Camejo, [address], [place], [address]. tel:[phone] [facility] [address], [place], [place], [id number], tel:[phone] [place] No Information Diego Michele. . Referring Provider: Adrien Camejo, [address], [place], [address]. tel:[phone] [facility], [address], [place], [place], [id number], [place] tel:[phone] [place] No Information Diego Michele. . Referring Provider: Adrien Camejo, [address], [place], [address]. tel:[phone] [facility] [address] [facility] [address], [place], [id number], tel:[phone] [place] No Information Diego Michele. . Referring Provider: Adrien Camejo, [address], [place], [address]. tel:[phone] [facility], [place], [id number], tel:[phone] [place] No Information Diego Michele. . Referring Provider: Adrien Camejo, [address], [place], [address]. tel:[phone] [place] [address], [address], [place], [id number], [place] tel:[phone] [place] No Information Diego Michele. . Referring Provider: Adrien Camejo, [address], [place], [address]. tel:[phone] [facility], [address], [place], [place], [id number], [place] tel:[phone] [place] No Information Diego Michele. . Referring Provider: Adrien Camejo, [address], [place], [address]. tel:[phone] [facility], [address], [place], [place], [id number], tel:[phone] [place] No Information Diego Michele. . Referring Provider: Adrien Camejo, [address], [place], [address]. tel:[phone] [facility], [address], [place], [id number], [place] tel:[phone] [place] No Information Diego Michele. . Referring Provider: Adrien Camejo, [address], [place], [address]. tel:[phone] [facility], [address], [place], [place], [id number], [place] tel:[phone] [place] No Information Diego Michele. . Referring Provider: Adrien Camejo, [address], [place], [address]. tel:[phone] [facility], [address], [place], [place], [id number], [place] tel:[phone] [place] No Information Diego Michele. . Referring Provider: Adrien Camejo, [address], [place], [address]. tel:[phone] [facility], [address], [place], [id number], [place] tel:[phone] [place] No Information Diego Michele. . Referring Provider: Adrien Camejo, [address] [facility] [address], [place], [address]. tel:[phone] [facility], [address], [place], [place], [id number], [place] tel:[phone] [place] No Information Diego Michele. . Referring Provider: Adrien Camejo, [address] [facility] [address], [place], [address]. tel:[phone] [facility], [address] [facility] [facility], [place], [place], [id number], [place] tel:[phone] [place] No Information Diego Michele. . Referring Provider: Adrien Camejo, [address] [facility] [address], [place], [address]. tel:[phone] [facility], [address], [place], [place], [id number], [place] tel:[phone] [place] No Information Diego Michele. . Referring Provider: Adrien Camejo, [address] [facility] [place] [address], [place], [address]. tel:[phone] [facility], [address], [place], [place], [address], [place] tel:[phone] [place] No Information Diego Michele. . Referring Provider: Adrien Camejo, [address] [facility] [address], [place], [address]. tel:[phone] [facility], [address], [place], [place], [address], [place] tel:[phone] [place] No Information Diego Michele. . Referring Provider: Adrien Camejo, [address], [place], [address]. tel:[phone] [facility], [facility] [address], [place], [place], [id number], tel:[phone] [place] No Information Diego Michele. . Referring Provider: Adrien Camejo, [address], [place], [address]. tel:[phone] [facility], [address], [place], [place], [address], [place] tel:[phone] [place] No Information Diego Michele. . Referring Provider: Adrien Camejo, [address], [place], [address]. tel:[phone] [facility], [address], [place], [place], [address], [place] tel:[phone] [place] No Information Diego Michele. . Referring Provider: Adrien Camejo, [address], [place], [address]. tel:[phone] [facility], [address], [place], [place], [address], [place] tel:[phone] [place] No Information Diego Michele. . Referring Provider: Adrien Camejo, [address], [place], [address]. tel:[phone] [facility], [address], [place], [place], [address], [place] tel:[phone] [place] No Information Diego Michele. . Referring Provider: Adrien Camejo, [address], [place], [address]. tel:[phone] [facility], [address], [place], [place], [address], [place] tel:[phone] [place] No Information Diego Michele. . Referring Provider: Adrien Camejo, [address] [facility] [address], [place], [address]. tel:[phone] [facility], [address] [place], [place] [address], [place], [place], [id number], tel:[phone] [place] No Information Diego Michele. . Referring Provider: Adrien Camejo, [address] [facility] [address], [place], [address]. tel:[phone] [facility], [address] [place], [place] [address], [place], [place], [id number], tel:[phone] [place] No Information Diego Michele. . Referring Provider: Adrien Camejo, [address] [facility] [address], [place], [address]. tel:[phone] [facility], [address] [facility], [place], [place], [id number], tel:[phone] [place] No Information Russell Winslow. . Referring Provider: Adrien Camejo, [address] [facility] [address], [place], [address]. tel:[phone] [facility], [address] [place], [place] [address] [facility], [place], [place], [address], tel:[phone] [place] No Information Samuel Flores . Referring Provider: Adrien Camejo, [address] [facility] [address], [place], [address]. tel:[phone] [facility], [address] [place], [place] [address], [place], [place], [address], tel:[phone] [place] No Information Diego Michele. . Referring Provider: Adrien Camejo, [address] [facility] [address], [place], [address]. tel:[phone], [id number], [place] tel:[phone] [place] No Information Diego Michele. . Referring Provider: Sanket Waldron, [address] [place] [address], [address]. tel:[phone] [place] [address], [id number], [place] tel:[phone] [place] No Information Diego Michele. . Referring Provider: Sanket Waldron, [address] [place] [address], [address]. tel:-[phone] [place] [address], [id number], tel:[phone] [place] No Information Diego Michele. . Referring Provider: Sanket Waldron, [address] [place] [address], [address]. tel:-[phone] [place] [address], [id number], tel:[phone] [place] No Information Diego Michele. . Referring Provider: Sanket Waldron, [address] [place] [address], [address]. tel:-[phone] [place] [address], [id number], [place] tel:[phone] [place] No Information Diego Michele. . Referring Provider: Sanket Waldron, [address] [place] [address], [address]. tel:[phone] [place] [address], [id number], tel:[phone] [place] No Information Diego Michele. . Referring Provider: Sanket Waldron, [address] [place] [address], [address]. tel:[phone], [id number], tel:[phone] [facility] No Information Diego Michele. . Referring Provider: Sanket Waldron, [address] [place] [address], [address]. tel:[phone], [id number], [place] tel:[phone] [place] No Information Diego Michele. . Referring Provider: Sanket Waldron, [address] [place] [address], [address]. tel:[phone], [id number], [place] tel:[phone] [facility] No Information Diego Mihcele. . Referring Provider: Sanket Waldron, [address] [place] [address], [address]. tel:[phone], [id number], tel:[phone] [facility] No Information Diego Michele. . Referring Provider: Sanket Waldron, [address] [place] [address], [address]. tel:[phone], [id number], [place] tel:[phone] [facility] No Information Diego Michele. . Referring Provider: Sanket Waldron, [address] [place] [address], [address]. tel:[phone], [id number], [place] tel:[phone] [facility] No Information Diego Michele. . Referring Provider: Sanket Waldron, [address] [place] [address], [facility]. tel:[phone], [id number], tel:[phone] [place] No Information Diego Michele. . Referring Provider: Sanket Waldron, [address] [place] [address], [facility]. tel:[phone], [id number], tel:[phone] [facility] No Information Diego Michele. . Referring Provider: Sanket Waldron, [address] [place] [address], [facility]. tel:[phone], [id number], tel:[phone] [facility] No Information Diego Michele. . Referring Provider: Sanket Waldron, [address] [place] [address], [facility]. tel:[phone] Family History Family Member Type Diagnosis Age At Onset No Information Payers Payer name Insurance type Covered republican ID Shellie chung(s) [employer] CI [id number] Social History Type Description Quantity Date Captured Comments Sex Female Smoking Status No Information Chief Complaint And Reason For Visit No Information Reason For Referral Reason For Referral No Information History Of Present Illness Encounter Date Complaint History Of Prese nt Illness No Information Functional Status Date Functional Assessmen t No Information Instructions Date Instruction Additional Infor annette Kegel exercises were explained t o the patient. Assessments Type Assessment Date No Information Patient Care Teams Name Effective Dates (start - stop) Status Members No Information
--- OUTSIDE RECORDS SUMMARY | 2024-11-30 01:15 | XMS_ITS | Continuity of Care Document ---
Author Organization [employer] [place] Address [address] [facility] [address] [place] [address] Phone Care Team Providers Care Orthodontic Lab Technician Name Role Phone Aleyda PT, CMPT, Rosalio [...] Activities Neuromuscular Re-Ed Therapeutic Exercise Progress Note Therapeutic Activities Neuromuscular Re-Ed Therapeutic Exercise Therapeutic [...] Date Provider Providers Copied on Encounter [facility] [address] [place] [address], [id number], tel:[phone] [place] No Information José Miguel Santamaria. [address] [place] [address], [address] [place] [address]. tel:[phone] Referring Provider: Sanket Waldron, [address] [place] [address], [facility]. tel:[phone] [place] [address], [id number], tel:[phone] [place] No Information Odalisrtisabel Winslow. . Referring Provider: Sanket Waldron, [address] [place] [address], [facility]. tel:[phone], [id number], tel:[phone] [place] No Information Odalisrtisabel Winslow. . Referring Provider: Sanket Waldron, [address] [place] [address], [facility]. tel:[phone] [place] [address], [id number], tel:[phone] [place] No Information José Miguel Santamaria. [address] [place] [address], [address] [place] [address], . tel:[phone] Referring Provider: Sanket Waldron [address] [place] [address], [facility]. tel:[phone], [id number], tel:[phone] [place] No Information Odalisrtz Nayla. . Referring Provider: Sanket Waldron, [address] [place] [address], [address]. tel:[phone], [id number], tel:[phone] [facility] No Information Lurtz Nayla. . Referring Provider: Sanket Waldron, [address] [place] [address], [address]. tel:[phone], [id number], tel:[phone] [facility] No Information Lurtz Nayla. . Referring Provider: Sanket Waldron, [address] [place] [address], [address]. tel:[phone] [place] [address], [id number], tel:[phone] [facility] No Information José Miguel Santamaria. [address] [facility], [address], [place], [facility], . tel:[phone] Referring Provider: Sanket Waldron, [address] [place] [address], [address]. [phone] [place] [address], [id number], tel:[phone] [facility] No Information Diego Bautista. . Referring Provider: Sanket Waldron, [address] [place] [address], [address]. tel:[phone], [id number], tel:[phone] [facility] No Information Diego Bautista. . Referring Provider: Sanket Waldron, [address] [place] [address], [address]. tel:[phone] [facility] [address] [place] [address], [id number], [place] tel:[phone] [place] No Information Diego Michele. . Referring Provider: Sanket Waldron, [address] [place] [address], [address]. tel:[phone], [id number], [place] tel:[phone] [place] No Information Diego Michele. . Referring Provider: Sanket Waldron, [address] [place] [address], [address]. tel:[phone] [facility], [address] [place] [address], [id number], tel:[phone] [place] No Information Diego Michele. . Referring Provider: Sanket Waldron, [address] [place] [address], [address]. tel:[phone] [place] [address], [id number], tel:[phone] [place] No Information Diego Michele. . Referring Provider: Sanket Waldron, [address] [place] [address], [address]. tel:[phone] [facility] [address] [place] [address], [id number], [place] tel:[phone] [place] No Information Diego Michele. . Referring Provider: Sanket Waldron, [address] [place] [address], [address]. tel:[phone] [facility], [address] [place] [address], [id number], [place] tel:[phone] [place] No Information Diego Michele. . Referring Provider: Sanket Waldron, [address] [place] [address], [address]. tel:[phone], [id number], tel:[phone] [place] No Information Diego Michele. . Referring Provider: Sanket Waldron, [address] [place] [address], [address]. tel:[phone], [id number], [place] tel:[phone] [place] No Information Diego Michele. . Referring Provider: Sanket Waldron, [address] [place] [address], [address]. tel:[phone] [place] [address], [id number], [place] tel:[phone] [place] No Information Diego Michele. . Referring Provider: Sanket Waldron, [address] [place] [address], [address]. tel:[phone], [id number], tel:[phone] [place] No Information Diego Michele. . Referring Provider: Sanket Waldron, [address] [place] [address], [address]. tel:[phone], [id number], [place] tel:[phone] [place] No Information Diego Michele. . Referring Provider: Sanket Waldron, [address] [place] [address], [address]. tel:[phone], [id number], [place] tel:[phone] [place] No Information Diego Michele. . Referring Provider: Adrien Camejo, [address], [place], [address]. tel:[phone] [facility], [address], [place], [place], [id number], tel:[phone] [place] No Information Lurtz Nayla. . Referring Provider: Adrien Camejo, [address], [place], [address]. tel:[phone] [facility], [facility] [address], [place], [place], [id number], tel:[phone] [place] No Information Lurtz Nayla. . Referring Provider: Adrien Camejo, [address], [place], [address]. tel:[phone] [facility], [address], [place], [place], [id number], [place] tel:[phone] [place] No Information Diego Michele. . Referring Provider: Adrien Camejo, [address], [place], [address]. tel:[phone] [facility], [address], [place], [place], [id number], [place] tel:[phone] [place] No Information Diego Michele. . Referring Provider: Adrien Camejo, [address], [place], [address]. tel:[phone] [facility], [address], [place], [place], [id number], [place] tel:[phone] [place] No Information Diego Michele. . Referring Provider: Adrien Camejo, [address], [place], [address]. tel:[phone] [facility], [address], [place], [place], [id number], [place] tel:[phone] [place] No Information Russell Pemberton . Referring Provider: Adrien Camejo, [address], [place], [address]. tel:[phone] [facility], [address], [place], [id number], [place] tel:[phone] [place] No Information Diego Michele. . Referring Provider: Adrien Camejo, [address], [place], [address]. tel:[phone] [facility], [address], [place], [place], [id number], [place] tel:[phone] [place] No Information Diego Michele. . Referring Provider: Adrien Camejo, [address], [place], [address]. tel:[phone] [facility], [address], [place], [place], [id number], [place] tel:[phone] [place] No Information Diego Michele. . Referring Provider: Adrien Camejo, [address], [place], [address]. tel:[phone] [facility], [address], [place], [place], [id number], [place] tel:[phone] [place] No Information Diego Michele. . Referring Provider: Adrien Camejo, [address], [place], [address]. tel:[phone] [facility], [address], [place], [place], [id number], [place] tel:[phone] [place] No Information Diego Michele. . Referring Provider: Adrien Camejo, [address], [place], [address]. tel:[phone] [facility], [address], [place], [place], [id number], tel:[phone] [place] No Information Lurtz Nayla. . Referring Provider: Adrien Camejo, [address], [place], [address]. tel:[phone] [facility], [address], [place], [place], [id number], [place] tel:[phone] [place] No Information Lurtz Nayla. . Referring Provider: Adrien Camejo, [address], [place], [address]. tel:[phone] [facility], [address], [place], [place], [id number], [place] tel:[phone] [place] No Information Diego Garzonyn. . Referring Provider: Adrien Camejo, [address], [place], [address]. tel:[phone] [facility], [address], [place], [place], [id number], tel:[phone] [place] No Information Diego Garzonyn. . Referring Provider: Adrien Camejo, [address], [place], [address]. tel:[phone] [facility], [address], [place], [place], [id number], [place] tel:[phone] [place] No Information Diego Garzonyn. . Referring Provider: Adrien Camejo, [address], [place], [address]. tel:[phone] [facility], [place], [id number], [place] tel:[phone] [place] No Information Diego Michele. . Referring Provider: Adrien Camejo, [address], [place], [address]. tel:[phone] [facility], [address], [place], [place], [id number], tel:[phone] [place] No Information Diego Michele. . Referring Provider: Adrien Camejo, [address], [place], [address]. tel:[phone] [facility] [address], [place], [place], [id number], tel:[phone] [place] No Information Digeo Michele. . Referring Provider: Adrien Camejo, [address], [place], [address]. tel:[phone] [facility], [address], [place], [place], [id number], [place] tel:[phone] [place] No Information Diego Michele. . Referring Provider: Adrien Camejo, [address], [place], [address]. tel:[phone] [facility] [address] [address], [place], [place], [id number], tel:[phone] [place] No Information Diego Michele. . Referring Provider: Adrien Camejo, [address], [place], [address]. tel:[phone] [facility], [place], [place], [id number], tel:[phone] [place] No Information Diego Michele. . Referring Provider: Adrien Camejo, [address], [place], [address]. tel:[phone] [place] [address], [address], [place], [place], [id number], [place] tel:[phone] [place] No Information Diego Michele. . Referring Provider: Adrien Camejo, [address], [place], [address]. tel:[phone] [facility], [address], [place], [place], [address], [place] tel:[phone] [place] No Information Diego Michele. . Referring Provider: Adrien Camejo, [address], [place], [address]. tel:[phone] [facility], [address], [place], [place], [id number], tel:[phone] [place] No Information Diego Michele. . Referring Provider: Adrien Camejo, [address], [place], [address]. tel:[phone] [facility], [address], [place], [place], [address], [place] tel:[phone] [place] No Information Diego Michele. . Referring Provider: Adrien Camejo, [address], [place], [address]. tel:[phone] [facility], [address], [place], [place], [address], [place] tel:[phone] [place] No Information Diego Michele. . Referring Provider: Adrien Camejo, [address], [place], [address]. tel:[phone] [facility], [address], [place], [place], [address], [place] tel:[phone] [place] No Information Diego Michele. . Referring Provider: Adrien Camejo, [address], [place], [address]. tel:[phone] [facility], [address], [place], [place], [id number], [place] tel:[phone] [place] No Information Diego Michele. . Referring Provider: Adrien Camejo, [address] [facility] [address], [place], [address]. tel:[phone] [facility], [address], [place], [place], [address], [place] tel:[phone] [place] No Information Deigo Michele. . Referring Provider: Adrien Camejo, [address] [facility] [address], [place], [address]. tel:[phone] [facility], [address], [place], [place], [id number], [place] tel:[phone] [place] No Information Diego Michele. . Referring Provider: Adrien Camejo, [address] [facility] [address], [place], [address]. tel:[phone] [facility], [address], [place], [place], [address], [place] tel:[phone] [place] No Information Diego Michele. . Referring Provider: Adrien Camejo, [address] [facility] [address], [place], [address]. tel:[phone] [facility], [address], [place], [place], [address], [place] tel:[phone] [place] No Information Diego Michele. . Referring Provider: Adrien Camejo, [address] [facility] [address], [place], [address]. tel:[phone] [facility], [address], [place], [place], [address], [place] tel:[phone] [place] No Information Diego Michele. . Referring Provider: Adrien Camejo, [address], [place], [address]. tel:[phone] [facility], [facility] [address], [place], [place], [address], tel:[phone] [place] No Information Diego Michele. . Referring Provider: Adrien Camejo, [address], [place], [address]. tel:[phone] [facility], [address], [place], [place], [address], [place] tel:[phone] [place] No Information Diego Michele. . Referring Provider: Adrien Camejo, [address], [place], [address]. tel:[phone] [facility], [address], [place], [place], [address], [place] tel:[phone] [place] No Information Diego Michele. . Referring Provider: Adrien Camejo, [address], [place], [address]. tel:[phone] [facility], [address], [place], [place], [address], [place] tel:[phone] [place] No Information Diego Michele. . Referring Provider: Adrien Camejo, [address], [place], [address]. tel:[phone] [facility], [address], [place], [place], [address], [place] tel:[phone] [place] No Information Diego Michele. . Referring Provider: Adrien Camejo, [address], [place], [address]. tel:[phone] [facility], [address], [place], [place], [address], [place] tel:[phone] [place] No Information Diego Michele. . Referring Provider: Adrien Camejo, [address] [facility] [address], [place], [address]. tel:[phone] [facility], [address] [place], [place] [address], [place], [place], [id number], tel:[phone] [place] No Information Diego Michele. . Referring Provider: Adrien Camejo, [address] [facility] [address], [place], [address]. tel:[phone] [facility], [address] [place], [place] [address], [place], [place], [address], tel:[phone] [place] No Information Diego Michele. . Referring Provider: Adrien Camejo, [address] [facility] [address], [place], [address]. tel:[phone] [facility], [address] [facility] [address], [place], [place], [id number], tel:[phone] [place] No Information Russell Winslow. . Referring Provider: Adrien Camejo, [address] [facility] [address], [place], [address]. tel:[phone] [facility], [address] [place], [place] [address]u[address] [facility], [place], [place], [id number], tel:[phone] [place] No Information Samuel Flores . Referring Provider: Adrien Camejo, [address] [facility] [address], [place], [address]. tel:[phone] [facility], [address] [place], [place] [address], [place], [place], [address], tel:[phone] [place] No Information Diego Michele. . Referring Provider: Adrien Camejo, [address] [facility] [address], [place], [address]. tel:[phone], [id number], [place] tel:[phone] [place] No Information Diego Michele. . Referring Provider: Sanket [place], [address] [place] [address], [address]. tel:[phone] [place] [address], [id number], [place] tel:[phone] [place] No Information Diego Michele. . Referring Provider: Sanket [place], [address] [place] [address], [address]. tel:-[phone] [place] [address], [id number], tel:[phone] [place] No Information Diego Michele. . Referring Provider: Sanket [place]ron, [address] [place] [address], [address]. tel:-[phone] [place] [address], [id number], tel:[phone] [place] No Information Diego Michele. . Referring Provider: Sanket Waldron, [address] [place] [address], [address]. tel:-[phone] [place] [address], [id number], [place] tel:[phone] [place] No Information Diego Michele. . Referring Provider: Sanket [place]ron, [address] [place] [address], [address]. tel:[phone] [place] [address], [id number], tel:[phone] [place] No Information Diego Michele. . Referring Provider: Sanket [place]ron, [address] [place] [address], [address]. tel:[phone], [id number], tel:[phone] [facility] No Information Diego Mcihele. . Referring Provider: Sanket [place]ron, [address] [place] [address], [address]. tel:[phone], [id number], [place] tel:[phone] [place] No Information Diego Michele. . Referring Provider: Sanket [place]ron, [address] [place] [address], [address]. tel:[phone], [id number], [place] tel:[phone] [facility] No Information Diego Michele. . Referring Provider: Sanket [place]ron, [address] [place] [address], [address]. tel:[phone], [id number], tel:[phone] [facility] No Information Diego Michele. . Referring Provider: Sanket [place]ron, [address] [place] [address], [address]. tel:[phone], [id number], [place] tel:[phone] [facility] No Information Diego Michele. . Referring Provider: Sanket [place]ron, [address] [place] [address], [address]. tel:[phone], [id number], [place] tel:[phone] [facility] No Information Diego Michele. . Referring Provider: Sanket [place], [address] [place] [address], [facility]. tel:[phone], [id number], tel:[phone] [place] No Information Diego Michele. . Referring Provider: Sanket [place]ron, [address] [place] [address], [facility]. tel:[phone], [id number], tel:[phone] [facility] No Information Diego Michele. . Referring Provider: Sanket [place]ron, [address] [place] [address], [facility]. tel:[phone], [id number], tel:[phone] [facility] No Information Diego Michele. . Referring Provider: Sanket [place]ron, [address] [place] [address], [facility]. tel:[phone] Family History Family Member Type Diagnosis Age At Onset No Information Payers Payer name Insurance type Covered democrat ID Shellie chung(s) [employer] CI [id number] Social History Type Description Quantity Date Captured [...]
[2025-02-16 10:53] LABS: Alanine Aminotransferase 42 U/L (6-35); Albumin Level 4.2 g/dL (3.5-5.1); Alkaline Phosphatase 115 U/L (38-126); Anion Gap 4 mmol/L (4-12); Aspartate Amino Transferase 59 U/L (14-36); Bilirubin,Total 0.5 mg/dL (0.2-1.3); Blood Urea Nitrogen 13 mg/dL (7-17); CRP 1.3 mg/dL (<1.0); Calcium 8.8 mg/dL (8.4-10.2); Carbon Dioxide 31 mmol/L (22-30); Chloride 105 mmol/L (98-107); Creatine Kinase 99 U/L (30-135); Estimated Glomerular Filt Rate > 60; Glucose 98 mg/dL (65-110); Potassium 3.8 mmol/L (3.4-5.0); Sodium 140 mmol/L (137-145); Total Protein 7.6 g/dL (6.3-8.2)
[2025-02-16 11:45] LABS: Vitamin B12 > 1000.0 pg/mL (239-931)
--- OUTSIDE RECORDS SUMMARY | 2025-02-16 18:08 | XMS_ITS | Patient Health Record ---
Author Organization [facility] zee Address [address] [facility] [address] [place] [address] Care Team Providers Care Client Relationship Executive Name Role Phone Payal Méndez Unavailable [phone] Reason For Referral No Information Medications Medication [...] Insured Coverage Start Date Coverage End Date [place] [address] [place] [address] [id number] Yessy Donaldson Self - patient is the insured Medical (General) History Surgical History Surgery Date(Month/Year) Foot surgery; 2021-03-21 Carpal tunnel release; 2021-03-21 Bunionectomy; 2021-03-21 Aortic valve replacement; 2021-03-21
--- OUTSIDE RECORDS SUMMARY | 2025-02-16 18:08 | XMS_ITS | Clinical Summary ---
Author Organization [facility] Address [address] [place] [address] Care Team Providers Care Piece Dyeing Machine Tender Name Role Phone Unavailable Primary Care Provider Unavailabl e Source Comments [facility],non-owned Affiliates and Associated Physician Practices is amultiple site organization consisting of ambulatory clinics and hospital sitesin [place], [place], [place] and [place]. This disclosure is being madepursuant to the Care Everywhere program and may not contain all information available regarding this patient. Last updated 18.[facility] Social History Tobacco Use Types Packs/Day Years [...] 08/21/2007 ZOSTER VACCINE (1 of 2) 08/21/2007 DEPRESSION SCREENING 04/13/2024 COVID-19 VACCINE (1 - 2023-2 5 season) 2024 INFLUENZA VACCINE (#1) 2024 Respiratory Syncytial Virus (RSV) Vaccine Pt: [...] patient's age to complete this topic Insurance [facility] [employer]
--- OUTSIDE RECORDS SUMMARY | 2025-02-16 18:08 | XMS_ITS | Encounter Summary ---
Author Organization [facility] Address [address] [place] [address] Care Team Providers Care El Teacher Name Role Phone Unavailable Primary Care Provider Unavailabl e Encounter Details Date Type Department Care Team (Late st Contact Info) Description 01/08/2024 Lab Requisition [facility] - DermPath Lab [address] [place] [id number] Jamilah Garzon PA [address] [place] [id number] Neoplasm of uncertain behavior of skin Social [...] AM CDT) Case Report Dermatopathology Report Case: [id number] Authorizing Provider: Jamilah Garzon PA Collected: 01/08/2024 12:00 AM Ordering Location: [facility] Physician [facility] - Received: 01/11/2024 11:17 AM DermPath Lab [...] characteristic determined by the Dermatopathology Laboratory at [facility], directed by Dr. Thaddeus Souza. These tests need not be, and therefore are not, approved by the [place] Food and Drug Administration. The tests are used for clinical purposes. Billing Codes Specimen Charges Stain Charges 92618 1 [id number] 1 1 1 4 3:08 PM CDT DERMATOPATHOLOGY LABORATORY Embedded Images 3:08 PM CDT DERMATOPATHOLOGY LABORATORY Pathology/Cytolog y TISSUE SPECIMEN FROM SKIN / Unknown 01/08/2024 01/11/2024 11:17 AM CDT [facility] - PATHOLOGY/CYTOLOGY OR DERABLES Final Result DERMATOPATHOLOGY LABORATORY [facility] - Department of Dermatology [address], [address] Floor [address] [phone] documented in this encounter Visit Diagnoses Diagnosis Neoplasm of uncertain behavior of skin documented in this encounter
--- OUTSIDE RECORDS SUMMARY | 2025-02-16 18:08 | XMS_ITS | Encounter Summary ---
Author Organization [facility] Address [address] [place] [address] Care Team Providers Care Occupational Therapy Department Chair Name Role Phone Sanket [place] DO Primary Care Provider + Encounter Details Date Type Department Care Team (Late st Contact Info) Description 01/18/2024 Victort Message Enc [facility] Medical Group Family & Internal Medicine [facility] [address] [place] [address] Sanket [place] DO [address] [place], [place] [phone] Call from PT Provider Social History Tobacco [...] Information Value Date Recorded Sex Assigned at Female 06/06/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
--- OUTSIDE RECORDS SUMMARY | 2025-02-16 18:09 | XMS_ITS | Encounter Summary ---
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 Gender Identity Female 06/01/2020 9:42 PM 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 Sexual Orientation Straight 06/01/2020 9: 42 PM 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
--- OUTSIDE RECORDS SUMMARY | 2025-02-16 18:09 | XMS_ITS | Clinical Summary ---
Author Organization [facility] Address Critical access hospital[address] [place] [address] Care Team Providers Care Accounting Technician Name Role Phone Chivo Sanket [place] DO Primary Care Provider + Allergies Active Allergy Reactions Criticality Noted Date Comments Molnupiravir Rash Low 05/26/2023 Pregabalin Rash,Unknown High 03/21/2021 Medications Ascorbic Acid (VITAMIN C) 250 MG Chew Tab 4 Active atorvastatin (LIPITOR) 20 MG tablet Take 1 tablet (20 mg total) by mouth daily. 3 Active Cyanocobalamin (B-12) 1000 MCG Tab Active latanoprost (XALATAN) 0.005 % ophthalmic solution INSTILL 1 DROP INTO RIGHT EYE AT BEDTIME 4 Active Saline (OCEAN NASAL SPRAY NA) Acti ve calcium carb-cholecalcife rol (CALTRATE+D) 600-10 MG-MCG Tab tablet Take 1 tablet by mouth daily. Active amoxicillin (AMOXIL) 500 MG capsule Take 4 capsules (2,000 mg total) by mouth once. 5 Active artificial tears (LACRILUBE) as needed. Active albuterol sulfate HFA 108 (90 Base) MCG/ACT inhalerIndication s:Mild intermittent asthma without complication (HHS/HCC) Inhale 2 puffs into the lungs every 6 (six) hours as needed. 18 g 1 5 Active famotidine (PEPCID) 40 MG tablet Take 1 tablet (40 mg total) by mouth daily. 5 Active warfarin (COUMADIN) 2 MG tablet Take 2 tablets (4 mg total) by mouth daily. 5 Active Active Problems Problem Noted Date Diagnosed Date Osteoarthritis involving mul tiple joints on both sides of body 08/05/2024 Ulcer of esophagus without bleeding 08/05/2024 Gastric ulcer without hemorrhage or perforation 06/22/2024 Bilateral primary osteoarthritis of knee 024 Mild intermittent asthma without complication Fibromyalgia 05/26/2023 Mixed hyperlipidemia 12/10/2020 Bicuspid aortic [...] replacement with metallic valve S/P 19 mm [place] mechanical AVR Dr. [facility]rie 2008 for and [...] tunnel syndrome 05/26/2023 05/26/2023 Bilateral sciatica 12/12/2019 Overview (05/26/2023): Last Assessment & Plan: Uncontrolled, symptoms worsening Reviewed EMG: within normal limits Reviewed MRI from 12/2019, mild-moderate central canal stenosis. Given symptoms worsening advise repeating MRI or referral to spine surgery, but she defers Continue cymbalta Eczema of hand 06/16/2012 12/04/2023 Keratosis, senilis 06/16/2012 Encounters Date Type Department Care Team Description 01/16/2025 Scan [facility] Scanned, Doc [facility] Lab (SCAN) 12/22/2024 Xuehuilehart Message Enc [facility] Medical Group Family & Internal Medicine [address] [address] Sanket [place], DO Mammogram Results 12/21/2024 Scan [facility] Scanned, [facility] Lab (SCAN) 12/20/2024 Scan [facility] Scanned, Doc [facility] Procedure (SCAN) 12/19/2024 Scan [facility] Scanned, Doc [facility] Mammogram (SCAN) 11/23/2024 Scan [facility] Scanned, Doc [facility] Lab (SCAN) from Last 3 Months Immunizations Immunization Administration Dates Next Due Arexvy Respiratory Syncytial Virus (RSV, adjuvanted) 0.5 mL, PF 06/02/2023 FLUAD (IIV, Trivalent, 0.5 M L Pre-filled Syringe) 02/03/2024 Fluzone High Dose - >Age 65 (Prefilled Syringe) 01/24/2023 Influenza (Generic) 01/15/2015,01/19/2013 Influenza Adult (Generic) 01/04/2022,03/2021,12/31/2019,2018,01/24/2018,01/28/2016 Pneumococcal (Prevnar 20) 01/24/2023 Shingrix 11/08/2018,08/26/2018 Td (Generic) 01/28/2016 Td (TDVAX) 01/28/2016 Tdap (Generic) 11/17/2018,10/29/2012 Social History Tobacco Use Types Packs/Day Years Used Date Smoking Tobacco: Former Cigarettes Smokeless Tobacco: Never Tobacco Cessation:Counseling Given: Yes Comments:Occasionally for 3 months when 20 yrs. Alcohol Use Standard Drinks/Week Comments Not Currently 1.7 (1 standard drin k = 0.6 oz pure alcohol) 1/4 glass approx 6 months ago AUDIT-C Answer Date Recorded Q1: How often [...] Date Recorded Patient Health Questionnaire-2 Score 0 06/06/2024 Comments No Sex and Gender Information Value Date Recorded Sex Assigned at Female 06/06/2024 12:06 PM CREATIVE SERVICES DIRECTOR Legal Sex Female 7:25 PM CDT Gender Identity Female 06/06/2024 12:06 PM CREATIVE SERVICES DIRECTOR Sexual Orientation Not on file Last Filed Vital Signs Vital Sign Reading Time Taken Comments Blood Pressure 126/68 10/10/2024 11:24 AM CDT Pulse 76 10/10/2024 11:24 AM CDT Temperature 36.6 C (97.9 F) 10/10/2024 11:24 AM CDT Respiratory Rate 16 10/10/2024 11:24 AM CDT Oxygen Saturation 98% 10/10/2024 11:24 AM CDT Inhaled Oxygen Concentration - - Weight 58 kg (127 lb 12.8 oz) 10/10/2024 11:24 A M CDT Height 153.7 cm (5' 0.5) 10/10/2024 11:24 AM CD T Body Mass Index 24.55 10/10/2024 11:24 AM CDT Plan of Treatment Health Maintenance Due Date Last Done Comments COVID-19 Vaccine ( season) 2024 06/02/2023, 03/23/2021, 06/28/2020, Additional history exists Influenza Adult (#1) 2025 02/03/2024, 01/24/2023, 01/04/2022, Additional history exists Annual Medicare Wellness Visit 02/03/2025 02/03/2024 Dexa Scan (General) 11/11/2025 11/12/2023 Mammogram Screening 12/19/2025 12/19/2024, 11/12/2023, 02/24/2020 Colorectal Cancer Screening FIT/FOBT (1 Year) 03/30/2028 03/30/2024 DTaP, Tdap and Td Vaccines (5 - Td or Tdap) 11/17/2028 11/17/2018, 01/28/2016, 01/28/2016, Additional history exists Zoster Vaccines Completed 11/08/2018, 08/26/2018 Pneumococcal Vaccine: 50+ Years Completed 01/24/2023 Hepatitis C Completed 05/26/2023 RSV Immunization or 60+ Years Completed 06/02/2023 PHQ-2 (Physician [place]) Completed 06/06/2024 Hepatitis A Vaccines Aged Out No long er eligible based on patient's age to complete this topic Meningococcal B Vaccine Aged Out No l onger eligible based on patient's age to complete this topic Meningococcal Vaccine Aged Out No ed jus eligible based on patient's age to complete this topic RSV Immunizations Under 20 Months Aged Out No longer eligible based on patient's age to complete this topic Procedures Procedure Name Priority Date/Time Associated Diagnosis Comments OUTSIDE PT/INR (SCAN ORDER) 01/16/2025 OUTSIDE PT/INR (SCAN ORDER) 12/21/2024 PROCEDURE GENERIC (SCAN ORDER) 12/20/2024 MAMMOGRAM GENERIC (SCAN ORDER) 12/19/2024 OUTSIDE PT/INR (SCAN ORDER) 11/23/2024 OCCULT BLOOD, FECES Routine 03/30/2024 Black tarry stools BONE DENSITY GENERIC (SCAN ORDER) 11/12/2023 HEPATITIS C ANTIBODY Routine 05/26/2023 12:01 PM CREATIVE SERVICES DIRECTOR Mild intermittent asthma without complication (HHS/HCC) Screening for endocrine, metabolic and immunity disorder Annual physical exam Need for hepatitis C screening test from Last 3 Months or Most Recently Relevant to Health Maintenance Results * OUTSIDE PT/INR (SCAN ORDER) (01/16/2025) Only the most recent of3 resultswithin the time period is included. 01/16/2025 [facility] Scanned SCANNING Final Resu lt * PROCEDURE GENERIC (SCAN ORDER) (12/20/2024) 12/20/2024 [facility] Scanned SCANNING Final Resu lt * MAMMOGRAM GENERIC (SCAN ORDER) (12/19/2024) Anatomical Region Laterality Modality Other 12/19/2024 [facility] Group Scanned SCANNING Final Resu lt * (ABNORMAL) OCCULT BLOOD, FECES (03/30/2024) OCCULT BLOOD FECAL POSITIVE(A ) NEGATIVE [facility] COLLECTION DATE 03/30/24 [facility] STOOL SPECIMEN / Unknown 03/30/2024 Sanket [place] DO BODY FLUIDS AND STOOLS O RDERABLES Final Result Performing Organization Address [facility] Co de Phone Number [facility] [address] [place] [address], [place] * BONE DENSITY GENERIC (SCAN ORDER) (11/12/2023) Anatomical Region Laterality Modality Other 11/12/2023 Result [facility] Scanned SCANNING Final Resu lt * HEPATITIS C ANTIBODY (05/26/2023 12:01 PM CREATIVE SERVICES DIRECTOR) HEPATITIS C AB NON-REACTI VE NON-REACT [place] 05/26/2023 10:23 PM CREATIVE SERVICES DIRECTOR [facility] Comment: ANTIBODIES TO HCV NOT DETECTED. DOES NOT EXCLUDE THE POSSIBILITY OF EXPOSURE TO HCV. 05/26/2023 12:0 1 PM CREATIVE SERVICES DIRECTOR us Sanket [place] DO LABORATORY Final Re sult Performing Organization Address City/[facility]/ZIP Co de Phone Number [facility] [address] [place] [address], [place] [phone] from Last 3 Months or Most Recently Relevant to Health Maintenance Insurance [employer] Care Teams Accounting Technician Relationship Specialty Start Date End Date Sanket [place] DO [facility] [place] [address] PCP - General FAMILY PRACTICE 05/26/23
--- OUTSIDE RECORDS SUMMARY | 2025-02-16 18:09 | XMS_ITS | Encounter Summary ---
Author Organization [facility] Address [address] [place] [address] Care Team Providers Care Switchboard Operator Helper Name Role Phone Sanket [place] DO Primary Care Provider + Encounter Details Date Type Department Care Team (Late st Contact Info) Description 10/10/2024 MyChart Message Enc [facility] Medical Group Family & Internal Medicine [facility] [address] [place] [address] Sanket [place] DO [address] [place], [place] [phone] Added info for chart Social History Tobacco Use Types Packs/Day Years Used Date Smoking Tobacco: Former Cigarettes Smokeless Tobacco: Never Comments:Occasionally for 3 months when 20 yrs. [...] Sex Assigned at Female 06/06/2024 12:06 PM CANE BURNER Legal Sex Female 7:25 PM CDT Gender Identity Female 06/06/2024 12:06 PM CANE BURNER Sexual Orientation Not on file documented as of this encounter Progress Notes * Sanket [place] DO - 10/10/2024 4:11 PM CDT Noted. documented in this encounter Plan of Treatment Not on file documented as of this encounter Visit Diagnoses Not on filedocumented in this encounter Additional Health Concerns Assessment Noted Time PHQ-9 Depression Total Score: 0 02/03/20 2:27 PM CDT documented as of this encounter Care Teams Switchboard Operator Helper Relationship Specialty Start Date End Date Sanket [place] DO [address] [place] [address] PCP - General FAMILY PRACTICE 05/26/23 documented as of this encounter
--- OUTSIDE RECORDS SUMMARY | 2025-02-16 18:09 | XMS_ITS | Encounter Summary ---
Author Organization [facility] Healthcare Address [address] [place] [address] Care Team Providers Care Returning Officer Name Role Phone Konstantinyolandaandreyhermelinda Sanketcindy [place] DO Primary Care Provide r Adrien Camejo MD Unavailable [phone] Vipul Noonan MD Unavailable [phone] Encounter Details Date Type Department Care Team (Late st Contact Info) Description 03/07/2024 Orders Only [facility] Information Management [address] [place] [address] Scanning, Provider Social History Tobacco Use Types [...] on file Legal Sex Female 8:13 AM EMERGENCY PLANNER Gender Identity Female 06/01/2020 9:42 PM EMERGENCY PLANNER Sexual Orientation Straight 06/01/2020 9: 42 PM EMERGENCY PLANNER 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 Not on file Not on file documented as of this encounter Plan of Treatment Not on file documented as of this encounter Procedures Procedure Name Priority Date/Time Associated Diagnosis Comments SCAN - LABS 03/07/2024 documented in this encounter Results * SCAN - LABS (03/07/2024) us Provider Scanning Final Result documented in this encounter Visit Diagnoses Not on filedocumented in this encounter Care Teams Returning Officer Relationship Specialty Start Date End Date Sanket [place] DO [address] [place] [address] PCP - General 05/26/23 12/21/24 Adrien Camejo MD [address] [place] [address] Consulting Physician Orthopedic Surgery 08/25/23 Vipul Noonan MD [address] [place] [address] Referring Physician Obstetrics and Gynecology 12/22/24 documented as of this encounter
--- OUTSIDE RECORDS SUMMARY | 2025-02-16 18:09 | XMS_ITS | Encounter Summary ---
Author Organization [facility] Healthcare Address [address] [place] [address] Care Team Providers Care Test Driller Name Role Phone Konstantinmagdaleno Sanket [place] DO Primary Care Provide r Adrien Camejo MD Unavailable [phone] Vipul Noonan MD Unavailable [phone] Encounter Details Date Type Department Care Team (Late st Contact Info) Description 07/13/2024 Orders Only [facility] Health Information Management [address] [place] [address] Scanning, Provider Social History Tobacco Use Types [...] on file Legal Sex Female 8:13 AM ACCOUNT INSTALLATION SPECIALIST Gender Identity Female 06/01/2020 9:42 PM ACCOUNT INSTALLATION SPECIALIST Sexual Orientation Straight 06/01/2020 9: 42 PM ACCOUNT INSTALLATION SPECIALIST 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 Not on file Not on file documented as of this encounter Plan of Treatment Not on file documented as of this encounter Procedures Procedure Name Priority Date/Time Associated Diagnosis Comments SCAN - LABS 07/13/2024 documented in this encounter Results * SCAN - LABS (07/13/2024) us Provider Scanning Final Result documented in this encounter Visit Diagnoses Not on filedocumented in this encounter Care Teams Test Driller Relationship Specialty Start Date End Date Sanket [place] DO [address] [place] [address] PCP - General 05/26/23 12/21/24 Adrien Camejo MD [address] [place] [address] Consulting Physician Orthopedic Surgery 08/25/23 Vipul Noonan MD [address] [place] [address] Referring Physician Obstetrics and Gynecology 12/22/24 documented as of this encounter
--- OUTSIDE RECORDS SUMMARY | 2025-02-16 18:09 | XMS_ITS | Encounter Summary ---
Author Organization [facility] Healthcare Address [address] [place] [address] Care Team Providers Care Oracle Iam Consultant Name Role Phone Konstantinyolandaandreyhermelinda Sanket [place] DO Primary Care Provide r Adrien Camejo MD Unavailable [phone] Vipul Noonan MD Unavailable [phone] Encounter Details Date Type Department Care Team (Late st Contact Info) Description 06/29/2024 Orders Only [facility] Health Information Management [address] [place] [address] Scanning, Provider Social History Tobacco Use Types [...] on file Legal Sex Female 8:13 AM AUTO EMISSIONS TECHNICIAN Gender Identity Female 06/01/2020 9:42 PM AUTO EMISSIONS TECHNICIAN Sexual Orientation Straight 06/01/2020 9: 42 PM AUTO EMISSIONS TECHNICIAN 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 Not on file Not on file documented as of this encounter Plan of Treatment Not on file documented as of this encounter Procedures Procedure Name Priority Date/Time Associated Diagnosis Comments SCAN - LABS 06/29/2024 documented in this encounter Results * SCAN - LABS (06/29/2024) us Provider Scanning Final Result documented in this encounter Visit Diagnoses Not on filedocumented in this encounter Care Teams Oracle Iam Consultant Relationship Specialty Start Date End Date Sanket [place] DO [address] [place] [address] PCP - General 05/26/23 12/21/24 Adrien Camejo MD [address] [place] [address] Consulting Physician Orthopedic Surgery 08/25/23 Vipul Noonan MD [address] [place] [address] Referring Physician Obstetrics and Gynecology 12/22/24 documented as of this encounter
--- OUTSIDE RECORDS SUMMARY | 2025-02-16 18:09 | XMS_ITS | Clinical Summary ---
Author Organization [facility] Address [address] [place] [address] Care Team Providers Care Firearms Assembly Supervisor Name Role Phone Unavailable Primary Care [...] Due Date Last Done Comments Hepatitis C Virus (HCV) Screening 1957 Cologuard 2002 Colonoscopy 2002 Colorectal Cancer Screening 2002 Immunochemical Fecal Occult Blood 2002 Pneumococcal Immunization (50+ years) (1 of 1 - PCV) 08/21/2007 Influenza Immunization (#1) 12/12/202412/12, 01/24/2019, 01/24/2018, Additional history exists SARS-COV-2 Immunization (2024- season) 2024 03/23/2021, 06/28/2020, 06/07/2020 Respiratory Syncytial Virus (RSV) Immunization (Adult) (1 - 1-dose 75+ series) 2032 Zoster Immunization Completed 11/08/2018, 9 DTaP/Tdap/Td Immunization Discontinued 2018, 01/28/2016, 10/29/2012 TdaP Immunization Completed 11/17/2018, 10/29/2012 Hepatitis B Immunization Aged Out No longer eligible based on patient's age to complete this topic Human Papillomavirus (HPV) Immunization Aged Out No longer eligible based on patient's age to complete this topic Meningococcal Immunization (ACWY) Aged Out No longer eligible based on patient's age to complete this topic Rotavirus Immunization Aged Out No lo nger eligible based on patient's age to complete this topic
--- OUTSIDE RECORDS SUMMARY | 2025-02-16 18:09 | XMS_ITS | Encounter Summary ---
Author Organization [facility] Facility Care Team Providers Care Non Profit Job Titles Name Role Phone Helena Yu Primary Care Provider [phone] Gabi Fagan MD Primary Care Pro vider Nathalie Jain MD Primary Care Provider [phone] Jose Lorenzo DO Primary Care Provider [phone] Sanket Waldron DO Primary Care Provide r Adrien Camejo MD Unavailable [phone] Vipul Noonan MD Unavailable [phone] Encounter Details Date Type Department Care Team (Latest Contact Info) Description 11/20/2017 Orders Only [facility] ProviderReynaldo MD [address] [place] [address] Social History Tobacco Use Types Packs/Day Years Used Date Smoking Tobacco: Never Smokeless Tobacco: Never Alcohol Use Standard Drinks/Week Comments Yes 1 (1 standard drink = 0.6 oz pur e alcohol) Comments Unknown Sex and Gender Information Value Date Recorded Sex Assigned at Not on file Legal Sex Female 8:13 AM OPERATIONS AGENT Gender Identity Female 06/01/2020 9:42 PM OPERATIONS AGENT Sexual Orientation Straight 06/01/2020 9: 42 PM OPERATIONS AGENT documented as of this encounter Plan of [...] on filedocumented in this encounter Care Teams Non Profit Job Titles Relationship Specialty Start Date End Date Helena Yu PA [address] [place] [address] PCP - General Internal Medicine 09/23/18 07/29/20 Gabi Fagan MD [address] [place] [address] PCP - General Family Medicine 07/30/20 01/09/21 Nathalie Jain MD [address] [place] [address] PCP - General Internal Medicine 01/10/21 09/22/22 Jose Lorenzo DO [address] [place] [address] PCP - General Family Medicine 09/23/22 05/25/23 Sanket Waldron DO [address] [place] [address] PCP - General 05/26/23 12/21/24 Adrien Camejo MD [address] [place] [address] Consulting Physician Orthopedic Surgery 08/25/23 Vipul Noonan MD [address] [place] [address] Referring Physician Obstetrics and Gynecology 12/22/24 documented as of this encounter
--- OUTSIDE RECORDS SUMMARY | 2025-02-16 18:09 | XMS_ITS | Encounter Summary ---
Author Organization [facility] Healthcare Address [address] [place] [address] Care Team Providers Care Night Patrol Inspector Name Role Phone Konstantinyolandaandreyhermelinda Sanket Fisher DO Primary Care Provide r Adrien Camejo MD Unavailable Vipul Noonan MD Unavailable [phone] Encounter Details Date Type Department Care Team (Late st Contact Info) Description 06/08/2024 Orders Only [facility] Health Information Management [address] [place] [address] Scanning, Provider Social History Tobacco Use Types Packs/Day Years Used Date Smoking Tobacco: Never Smokeless Tobacco: Never Alcohol Use Standard Drinks/Week Comments Yes 1 (1 standard drink = 0.6 oz pur e alcohol) socially AUDIT-C Answer Date Recorded Q1: How often do you have a drink containing alc ohol? Monthly or less 06/08/2024 Q2: How many drinks containi ng alcohol do you have on a typical day when you are drinking? 1 or 2 06/08/2024 Q3: How often do you have si x or more drinks on one occasion? 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 Monthly or less 06/08/2024 1:00 PM Sylvia Jeff RN Q2: How many drinks containing alcohol do you have on a typical day when you are drinking? 1 or 2 06/08/2024 1:00 PM Sylvia Jeff RN Q3: How often do you have six or more drinks on one occasion? Never 06/08/2024 1:00 PM Sylvia Jeff RN * BP Location Answer Date of Assessment Author Left arm 06/08/2024 10:57 AM Lora Michaels MA documented as of this encounter Plan of Treatment Not on file documented as of this encounter Procedures Procedure Name Priority Date/Time Associated Diagnosis Comments SCAN - LABS 06/08/2024 documented in this encounter Results * SCAN - LABS (06/08/2024) us Provider Scanning Final Result documented in this encounter Visit Diagnoses Not on filedocumented in this encounter Care Teams Night Patrol Inspector Relationship Specialty Start Date End Date Sanket Waldron DO [address] [place] [address] PCP - General 05/26/23 12/21/24 Adrien Camejo MD [address] [facility] [address] [place] [address] Consulting Physician Orthopedic Surgery 08/25/23 Vipul Noonan MD [address] [place] [address] Referring Physician Obstetrics and Gynecology 12/22/24 documented as of this encounter
--- OUTSIDE RECORDS SUMMARY | 2025-02-16 18:09 | XMS_ITS | Encounter Summary ---
Author Organization [facility] Address [address] [place] [address] Care Team Providers Care Staff Accountant Name Role Phone Sanket Waldron DO Primary [...] Sex Assigned at Female 06/06/2024 12:06 PM INFORMATION DIRECTOR Legal Sex Female 7:25 PM CDT Gender Identity Female 06/06/2024 12:06 PM INFORMATION DIRECTOR Sexual Orientation Not on file documented as of this encounter Plan of Treatment Not on file documented as of this encounter Visit Diagnoses Not on filedocumented in this encounter Care Teams Staff Accountant Relationship Specialty Start Date End Date Sanket Waldron DO [address] [place] [address] PCP - General FAMILY PRACTICE 05/26/23 documented as of this encounter
--- OUTSIDE RECORDS SUMMARY | 2025-02-16 18:09 | XMS_ITS | Encounter Summary ---
Author Organization [facility] Healthcare Address [address] [place] [address] Care Team Providers Care Heel Cover Splitter Name Role Phone Konstantinyolandajunior Sanketcindy Fisher DO Primary Care Provide r Adrien Camejo MD Unavailable [phone] Vipul Noonan MD Unavailable [phone] Encounter Details Date Type Department Care Team (Late st Contact Info) Description 04/26/2024 Orders Only [facility] Health Information Management [address] [place] [address] Scanning, Provider Social History Tobacco Use Types [...] on file Legal Sex Female 8:13 AM MAYONNAISE MIXER Gender Identity Female 06/01/2020 9:42 PM MAYONNAISE MIXER Sexual Orientation Straight 06/01/2020 9: 42 PM MAYONNAISE MIXER 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 Not on file Not on file documented as of this encounter Plan of Treatment Not on file documented as of this encounter Procedures Procedure Name Priority Date/Time Associated Diagnosis Comments SCAN - LABS 04/26/2024 documented in this encounter Results * SCAN - LABS (04/26/2024) us Provider Scanning Final Result documented in this encounter Visit Diagnoses Not on filedocumented in this encounter Care Teams Heel Cover Splitter Relationship Specialty Start Date End Date Sanket Waldron DO [address] [place] [address] PCP - General 05/26/23 12/21/24 Adrien Camejo MD [address] [place] [address] Consulting Physician Orthopedic Surgery 08/25/23 Vipul Noonan MD [address] [place] [address] Referring Physician Obstetrics and Gynecology 12/22/24 documented as of this encounter
--- OUTSIDE RECORDS SUMMARY | 2025-02-16 18:09 | XMS_ITS | Encounter Summary ---
Author Organization [facility] Address [address] [place] [address] Care Team Providers Care Electrician Second Name Role Phone Sanket Waldron DO Primary Care Provider + Encounter Details Date Type Department Care Team (Late st Contact Info) Description 08/09/2024 MyChart Message Enc [facility] Family & Internal Medicine [facility] [address] [place] [id number] Sanket Waldron DO [address] [place], [place] [id number] Tizanidine and INR Social History Tobacco Use Types Packs/Day Years Used Date Smoking Tobacco: Former Cigarettes Smokeless Tobacco: Never Comments:Occasionally for 3 months Alcohol Use Standard Drinks/Week Comments Yes 1.7 (1 standard drink = 0.6 oz p ure alcohol) 1-2 month AUDIT-C Answer Date Recorded Q1: How often [...] Sex Assigned at Female 06/06/2024 12:06 PM APPLICATIONS SYSTEMS ENGINEER Legal Sex Female 7:25 PM CDT Gender Identity Female 06/06/2024 12:06 PM APPLICATIONS SYSTEMS ENGINEER Sexual Orientation Not on file documented as of this encounter Plan of Treatment Not on file documented as of this encounter Visit Diagnoses Not on filedocumented in this encounter Additional Health Concerns Assessment Noted Time PHQ-9 Depression Total Score: 0 02/03/20 2:27 PM CDT documented as of this encounter Care Teams Electrician Second Relationship Specialty Start Date End Date Sanket Waldron DO [address] [place] [address] PCP - General FAMILY PRACTICE 05/26/23 documented as of this encounter
--- OUTSIDE RECORDS SUMMARY | 2025-02-16 18:09 | XMS_ITS | Encounter Summary ---
Author Organization [facility] Healthcare Address [address] [place] [address] Care Team Providers Care Scrap Iron Loader Name Role Phone Konstantinyolandaandreyhermelinda Sanket Fisher DO Primary Care Provide r Adrien Camejo MD Unavailable [phone] Vipul Noonan MD Unavailable [phone] Encounter Details Date Type Department Care Team (Late st Contact Info) Description 08/18/2024 Orders Only [facility] Health Information Management [address] [place] [address] Scanning, Provider Social History Tobacco Use Types [...] on file Legal Sex Female 8:13 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 ADVISER Gender Identity Female 06/01/2020 9:42 PM ECONOMIC ADVISER Sexual Orientation Straight 06/01/2020 9: 42 PM ECONOMIC ADVISER Occupation Industry Job Start Date Job End Date [employer] Not on file Not on file [...] on filedocumented in this encounter Care Teams Scrap Iron Loader Relationship Specialty Start Date End Date Sanket Waldron DO [address] [place] [address] PCP - General 05/26/23 12/21/24 Adrien Camejo MD [address] [place] [address] Consulting Physician Orthopedic Surgery 08/25/23 Vipul Noonan MD [address] [place] [address] Referring Physician Obstetrics and Gynecology 12/22/24 documented as of this encounter
--- OUTSIDE RECORDS SUMMARY | 2025-02-16 18:09 | XMS_ITS | Encounter Summary ---
Author Organization [facility] Healthcare Address [address] [place] [address] Care Team Providers Care Balance Assembler Name Role Phone Konstantinyolandaandreyhermelinda Sanketcindy Fisher DO Primary Care Provide r Adrien Camejo MD Unavailable [phone] Vipul Noonan MD Unavailable [phone] Encounter Details Date Type Department Care Team (Late st Contact Info) Description 03/14/2024 Orders Only [facility] Information Management [address] [place] [address] Scanning, Provider Social History Tobacco Use Types [...] file Legal Sex Female 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 COMPUTER PUBLISHER Gender Identity Female 06/01/2020 9:42 PM COMPUTER PUBLISHER Sexual Orientation Straight 06/01/2020 9: 42 PM COMPUTER PUBLISHER 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 Not on file Not on file documented as of this encounter Plan of Treatment Not on file documented as of this encounter Procedures Procedure Name Priority Date/Time Associated Diagnosis Comments SCAN - LABS 03/14/2024 documented in this encounter Results * SCAN - LABS (03/14/2024) us Provider Scanning Final Result documented in this encounter Visit Diagnoses Not on filedocumented in this encounter Care Teams Balance Assembler Relationship Specialty Start Date End Date Sanket Waldron DO [address] [place] [address] PCP - General 05/26/23 12/21/24 Adrien Camejo MD [address] [place] [address] Consulting Physician Orthopedic Surgery 08/25/23 Vipul Noonan MD [address] [place] [address] Referring Physician Obstetrics and Gynecology 12/22/24 documented as of this encounter
--- OUTSIDE RECORDS SUMMARY | 2025-02-16 18:09 | XMS_ITS | Encounter Summary ---
Author Organization [facility] Healthcare Address [address] [place] [address] Care Team Providers Care Senior Clinical Study Manager Name Role Phone Konstantinmagdaleno Sanket Fisher DO Primary Care Provide r Adrien Camejo MD Unavailable [phone] Vipul Noonan MD Unavailable [phone] Encounter Details Date Type Department Care Team (Late st Contact Info) Description 08/12/2024 Orders Only [facility] Health Information Management [address] [place] [address] Scanning, Provider Social History Tobacco Use Types [...] on file Legal Sex Female 8:13 AM EQUIPMENT INSTALLER Gender Identity Female 06/01/2020 9:42 PM EQUIPMENT INSTALLER Sexual Orientation Straight 06/01/2020 9: 42 PM EQUIPMENT INSTALLER 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 Not on file Not on file documented as of this encounter Plan of Treatment Not on file documented as of this encounter Procedures Procedure Name Priority Date/Time Associated Diagnosis Comments SCAN - LABS 08/12/2024 documented in this encounter Results * SCAN - LABS (08/12/2024) us Provider Scanning Final Result documented in this encounter Visit Diagnoses Not on filedocumented in this encounter Care Teams Senior Clinical Study Manager Relationship Specialty Start Date End Date Sanket Waldron DO [address] [place] [address] PCP - General 05/26/23 12/21/24 Adrien Camejo MD [address] [place] [address] Consulting Physician Orthopedic Surgery 08/25/23 Vipul Noonan MD [address] [place] [address] Referring Physician Obstetrics and Gynecology 12/22/24 documented as of this encounter
--- OUTSIDE RECORDS SUMMARY | 2025-02-16 18:09 | XMS_ITS | Encounter Summary ---
Author Organization [facility] Address [address] [place] [address] Care Team Providers Care County Tax Assessor Name Role Phone Sanket Waldron DO Primary Care Provider + Encounter Details Date Type Department Care Team (Late st Contact Info) Description 12/22/2024 MyChart Message Enc [facility] Medical Group Family & Internal Medicine [facility] [address] [place] [address] Sanket Waldron DO [address] [place], [place] [id number] Mammogram Results Social History Tobacco Use Types Packs/Day [...] Sex Assigned at Female 06/06/2024 12:06 PM GENERAL MAINTENANCE MECHANIC Legal Sex Female 7:25 PM CDT Gender Identity Female 06/06/2024 12:06 PM GENERAL MAINTENANCE MECHANIC Sexual Orientation Not on file documented as of this encounter Plan of Treatment Not on file documented as of this encounter Visit Diagnoses Not on filedocumented in this encounter Additional Health Concerns Assessment Noted Time PHQ-9 Depression Total Score: 0 02/03/20 2:27 PM CDT documented as of this encounter Care Teams County Tax Assessor Relationship Specialty Start Date End Date Sanket Waldron DO [address] [place] [address] PCP - General FAMILY PRACTICE 05/26/23 documented as of this encounter
--- OUTSIDE RECORDS SUMMARY | 2025-02-16 18:09 | XMS_ITS | Clinical Summary ---
Author Organization [facility] [address] [facility] [address] [place] [address] Care Team Providers Care Surface Water Manager Name Role Phone Adrien Camejo MD Unavailable [phone] Vipul Noonan MD Unavailable [phone] Allergies Active Allergy Reactions Criticality Noted Date [...] needed Active cyanocobalamin (Vitamin B-12) 1,000 mcg tabletIndicatio ns:Prevention of Vitamin B12 Deficiency Take 1 tablet (1,000 mcg total) by mouth every morning Active calcium carbonate-vitam in D3 (CALTRATE 600 + D) 1500 mg (600 mg elemental) -400 units per tablet Take 1 tablet by mouth every morning Active famotidine (PEPCID) 40 mg tabletIndicatio ns:Gastric Ulcer Take 1 tablet (40 mg total) by mouth daily before breakfast 90 tablet 3 5 Active atorvastatin (LIPITOR) 20 mg tablet Take 1 tablet (20 mg total) by mouth daily 90 tablet 3 5 Active warfarin (COUMADIN) 2 mg tablet Take 2 tablets by mouth once daily 180 tablet 5 Active Active Problems Problem Noted Date Diagnosed Date Belching 12/15/2024 Assessment & Plan (12/15/2024 1:03 PM CDT): Reports that she is having complaints of belching. No reports of abdominal pain, heartburn, nausea or vomiting. With recent EGD was performed on 08/29/2024 to assess for healing of gastric as well as esophageal ulcers. EGD showed a 2 cm hiatal hernia, and gastritis. She is currently taking famotidine. Most recent ultrasound showed minimal gallbladder sludge. She is currently scheduled for a HIDA scan. Does admit to drinking liquids through a straw. -Discussed possible etiologies including but not limited to aerophagia, gallbladder dysfunction, SIBO, and others. -We will await HIDA scan for further evaluation -Educated on importance of avoiding drinking liquids through a straw, chewing gum -Possible SIBO testing -Recommended FDgard as well as [id number] simethicone to help with complaints Gastric ulcer without hemorrhage or perforation 06/22/2024 Assessment & Plan (12/15/2024 1:03 PM CDT): An EGD was performed on 06/21 for complaints of melena that showed an esophageal ulcer, gastritis, and nonbleeding gastric ulcers. She was then started on pantoprazole 40 mg b.i.d. and repeat EGD was performed on 08/29 that showed healing of ulcers. No reports of abdominal pain, heartburn, nor melena at this time. -Recommended for her to continue her daily famotidine -Educated on importance of avoiding certain food triggers Melena 06/08/2024 Assessment & Plan (06/08/2024 6:49 PM PLANT GENERAL MANAGER): Was seen with correlation with her nose [...] 06/12/2020 Assessment & Plan (06/12/2020 9:13 AM PLANT GENERAL MANAGER): Weight/BMI is in healthy range. Continue [...] Coumadin Topicals/Tylenol Pending xrays, may need MRI Personal history of adenomatous and serrated col on polyps 12/11/2019 Assessment & Plan (12/15/2024 1:03 PM CDT): Most recent colonoscopy was performed on 06/21/[address] Hodge that showed two 10 mm polyps, tubular adenoma on pathology. Recommended repeat colonoscopy in 3 years -Repeat colonoscopy due June 2027 Assessment & Plan (01/01/2021 11:29 AM CDT): Never smoker PAP: UTD 2018 BP <140/90, continue to monitor Body mass [...] mitigate Assessment & Plan (05/30/2019 1:13 PM PLANT GENERAL MANAGER): Continue the Cymbalta and monitor closely. Reviewed with patient with her increased daily stressors it may be difficult to see a change with any medication. Pt in agreement Assessment & Plan (02/20/2019 2:18 PM PLANT GENERAL MANAGER): Increase cymbalta to 60mg. Monitor closely [...] replacement with metallic valve S/P 19 mm [place] mechanical AVR Dr. 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 Assessment & Plan (05/30/2019 8:38 AM PLANT GENERAL MANAGER): Weight/BMI is in healthy range. Continue healthy lifestyle to maintain. BMI 26.0-26.9,adult 01/24/2019 05/30/19 20 Assessment & Plan (01/24/2019 2:39 PM CDT): Weight/BMI is in healthy range. Continue healthy lifestyle to maintain. Need for immunization against influenza 01/24/2019 12/11/2019 Assessment & Plan (02/20/2019 2:18 PM PLANT GENERAL MANAGER): Updated in office today Need for [...] H/O aortic valve replacement S/P 19 mm [place] mechanical AVR Dr. Guthrie 2008 History of anticoagulant therapy 08/30/2012 11/15/2018 Overview (07/17/2016): LONG-TERM USE ANTICOAGUL Encounters Date Type Department Care Team Description 01/26/2025 Anticoagulation Visit [facility] Cardiology [address] [place] [address] Juany Madrid, BHAVANA H/O mechanical aortic valve replacement (Primary Dx); Chronic anticoagulation 01/25/2025 Telephone [facility] Cardiology [address] [place] [address] [address] [place] [address] Yuri Ferraro MD INR results 01/16/2025 Anticoagulation Visit [facility] Cardiology [address] [place] [address] [address] [place] [address] Juany Madrid RN H/O mechanical aortic valve replacement (Primary Dx); Chronic anticoagulation 12/22/2024 Telephone [facility] Cardiology [address] [place] [address] [address] [place] [address] Yuri Ferraro MD Leg Pain 12/21/2024 Anticoagulation Visit [facility] Cardiology at [address] [place] [address] Juany Madrid, BHAVANA H/O mechanical aortic valve replacement (Primary Dx); Chronic anticoagulation 12/20/2024 10:50 AM CDT - 12/20/2024 11:59 PM CDT Hospital Encounter [facility] Nuclear Medicine [address] [place] [address] Gallbladder problem Discharge Disposition: Discharge to home or self care 12/20/2024 Results Follow-Up [facility] Gastroenterology at [place] [address] [place] [address] Hugo Hodge MD NM Hepatobiliary Imaging W GBEF 12/19/2024 12:31 PM CDT - 12/19/2024 11:59 PM CDT Hospital Encounter [facility] Breast Imaging [address] [place] [address] Screening mammogram, encounter for Discharge Disposition: Discharge to home or self care 12/19/2024 Orders Only [facility] Gastroenterology at [address] [place] [address] Hugo Hodge MD Gallbladder problem (Primary Dx) 12/15/2024 12:30 PM CDT Office Visit [facility] Gastroenterology at [address] [place] [address] Briana Kenyon, NAMRATA Acute gastric ulcer without hemorrhage or perforation (Primary Dx); Personal history of adenomatous and serrated colon polyps; Belching 12/15/2024 Orders Only [facility] Gastroenterology at [address] [place] [address] Hugo Hodge MD Gallbladder problem (Primary Dx) 12/07/2024 Orders Only [facility] Gastroenterology at [address] [place] [address] Hugo Hodge MD Gallbladder problem (Primary Dx) 12/02/2024 Results Follow-Up [facility] Gastroenterology at [address] [place] [address] Hugo Hodge MD US Abdomen Limited 11/23/2024 Orders Only [facility] Health Information Management [address] [place] [address] Scanning, Provider 11/23/2024 Anticoagulation Visit [facility] Cardiology [address] [place] [address] Huma Trevizo RN H/O mechanical aortic valve replacement (Primary Dx); Chronic anticoagulation 11/23/2024 Telephone [facility] Cardiology [address] [place] [address] Yuri Ferraro MD 11/18/2024 7:20 AM CDT - 11/18/2024 11:59 [place] [address] Dyspepsia Discharge Disposition: Discharge to home or self care from Last 3 Months Immunizations Immunization Administration [...] CERCLAGE CARDIAC VALVE REPLACEMENT 11/06/2008 JOINT REPLACEMENT 1989's ? REPLACEMENT TOTAL KNEE Right LAPAROTOMY 04/13/1984 - 04/12/1985 UPPER GASTROINTESTINAL ENDOSCOPY Medical History Medical History Date Comments Asthma Asthma Eczema eczema Hx Other Medical diverticulosis Arthritis Myalgia Mitral valve prolapse GERD (gastroesophageal reflux disease) at least 10 years Cataract diagnosed 2019 Depression supposedly; but feel it's a misdiagnosis. Heart disease Neuromuscular disorder Have had sciatica for 17 months. Hyperlipidemia Glaucoma Fibromyalgia Family History Medical History Relation Name Comments Arthritis Father Ravin Knott Hearing loss Father Ravin Knott Heart attack Father Ravin Knott Other Father Ravin Knott MD age 50, CABG ; Clotting disorder Mother Liliam Hockeborn Other Mother Liliam Hockeborn H/O CVA, d ied 2012; Stroke Mother Liliam Hockeborn Vision loss Mother Liliam Hockeborn brain tumor Sister 1 Cancer Sister 2 Anusha Knott Other Sister 2 Anusha Knott MVP; Arthritis Sister 3 Maria Isabel Karsnia Diabetes Sister 3 Maria Isabel Karsnia Arthritis Sister 4 Yaryfidelina Knott defects Son Denis Donaldson Developmental delay Son Denis Donaldson Hyperlipidemia Son Denis Donaldson Vision loss Son Denis Donaldson Relation Name Status Comments Father Ravin Knott Alive Mother Liliam Hockeborn Sister 1 Alive Sister 2 Anusha Knott Sister 3 Maria Isabel Rosarionia Sister 4 Yary Knott Son Denis Donaldson Social History Tobacco Use Types Packs/Day Years [...] on file Legal Sex Female 8:13 AM PLANT GENERAL MANAGER Gender Identity Female 06/01/2020 9:42 PM PLANT GENERAL MANAGER Sexual Orientation Straight 06/01/2020 9: 42 PM PLANT GENERAL MANAGER 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 on file Not on file Not on file Obstetrics History Para Term AB IAB SAB Ectopic Multiple Livin g Live Births 3 3 Date Outcome GA Total Labor Labor/2nd/3rd Weight Sex Type Anes PTL Elizabeth A1 A5 Name Clin Last Filed Vital Signs Vital Sign Reading Time Taken Comments Blood Pressure 100/64 12/15/2024 12:23 PM CDT Pulse 96 12/15/2024 12:23 PM CDT Temperature 36.1 C (97 F) 08/29/2024 9:57 AM CDT Respiratory Rate 13 08/29/2024 11:00 AM CDT Oxygen Saturation 96% 10/10/2024 9:48 AM CDT Inhaled Oxygen Concentration - - Weight 57.6 kg (127 lb) 12/19/2024 12:57 PM CDT Height 152.6 cm (5' 0.06) 12/19/2024 12:57 PM C DT Body Mass Index 24.76 12/19/2024 12:57 PM CDT Plan of Treatment Health Maintenance Due Date Last Done Comments Hepatitis C Screening 1955 Hepatitis B Screening 08/21/1975 Pneumococcal vaccine 65+ (1 of 2 - PCV) 1976 Osteoporosis Screening-Bone Density Scan 02/21/2021 02/21/2019 Depression Screening 06/12/2021 06/12/2020, 12/12/2019, 12/12/2019, Additional history exists Well Visit 65+ 2022 12/12/2019, 11/17/2018 Influenza Vaccine (#1) 2024 , 01/04/2022, 01/22/2021, Additional history exists Fall Risk Assessment 08/29/2025 08/29/2024, 06/12/2020, 12/12/2019, Additional history exists Breast Cancer Screening-Mammogram 12/19/2025 12/19/2024, 02/24/2020, 02/21/2019 Colon Cancer Screening-Colonoscopy 06/22/2027 06/21/2024 Colon Cancer Screening-DNA Stool 06/22/2027 06/22/19, 12/06/2018 DTaP/Tdap/Td Vaccine (4 - Td or Tdap) 11/17/2028 11/17/2018, 01/28/2016, 10/29/2012 Zoster Vaccine Completed 11/10/2018, 08/26/2018 Cervical Cancer Screening Discontinued 11/17/2018 Medical Devices Implanted Type Area Emergency Medicine Physician Device Identifier Shelf Expiration Date Model / Serial / Lot [employer] Simplex P Radiopaque Full Dose Cement Bone Sterile 6191-1-010 - [id number] Implanted:Qty: 1 on 08/24/2023 by Adrien Camejo MD at [facility] Right: Knee [employer] [id number] 08/10/2025 6191-1-01 0 / / [id number] [employer] Ascent Maxim 63mm 1 Piece Cruciate Fin Knee Tray Tibial Interlok [id number] - [id number] Implanted:Qty: 1 on 08/24/2023 by Adrien Camejo MD at [facility] Right: Knee [employer] 09/11/2032 [id number] / / [id number] [employer] Vanguard 60mm Cruciate Retaining Knee Right Component Femoral [id number] - [id number] Implanted:Qty: 1 on 08/24/2023 by Adrien Camejo MD at [facility] Right: Knee [employer] [id number] 07/26/2032 [id number] / / [id number] [employer] Bearing [id number] Vanguard Arcom Knee Cruciate Retain Direct [id number] - [id number] Implanted:Qty: 1 on 08/24/2023 by Adrien Camejo MD at [facility] Right: Knee [employer] [id number] 04/01/2028 [id number] / / [id number] Procedures Procedure Name Priority Date/Time Associated Diagnosis Comments PROTIME-INR Routine 01/25/2025 PROTIME-INR Routine 01/16/2025 PROTIME-INR Routine 12/21/2024 NM HEPATOBILIARY IMAGING W PHARMACEUTICAL INTERVENTION Schedule Routine, Read Routine (OP Routine) 12/20/2024 1:26 PM CDT Gallbladder problem SCREENING MAMMOGRAM BILATERAL W THAI Schedule Routine, Read Routine (OP Routine) 12/19/2024 1:06 PM CDT Screening mammogram, encounter for SCAN - LABS 11/23/2024 PROTIME-INR Routine 11/23/2024 US ABDOMEN LIMITED Schedule Routine, Read Routine (OP Routine) 11/18/2024 7:47 AM CDT Dyspepsia COLONOSCOPY 06/21/2024 10:32 AM CDT DEXA SCAN Routine 02/21/2019 PAP SMEAR WITH HPV Routine 11/17/2018 from Last 3 Months or Most Recently Relevant to Health Maintenance Results * (ABNORMAL) Protime-INR (01/25/2025) INR 2.80(A) 0.90 - 1.10 EXTERNAL LAB Blood Historical Provider MD LAB BLOOD ORDERABLES Antonina l Result Performing Organization Address [facility] Co de Phone Number EXTERNAL LAB * (ABNORMAL) Protime-INR (01/16/2025) INR 3.70(A) 0.90 - 1.10 [facility] Blood Result [facility] Provider MD LAB BLOOD ORDERABLES Antonina l Result Performing Organization Address [facility] de Phone Number [facility] * (ABNORMAL) Protime-INR (12/21/2024) INR 3.40(A) 0.90 - 1.10 EXTERNAL LAB Blood Result [facility] Provider MD LAB BLOOD ORDERABLES Antonina l Result Performing Organization Address [facility] Co de Phone Number EXTERNAL LAB * NM Hepatobiliary Imaging W GBEF (12/20/2024 1:26 PM CDT) Anatomical Region Laterality Modality Body N/A Nuclear Medicine 12/20/2024 2:03 PM CDT Narrative 12/20/2024 2:07 PM CDT EXAM DESCRIPTION: NM HEPATOBILIARY IMAGING W PHARMACEUTICAL INTERVENTION RADIOPHARMACEUTICAL: 5 mCi Tc-99m mebrofenin via a right antecubital vein IV site and 8 oz Ensure Plus or equivalent P.O. REASON FOR STUDY: Belching for 6 months. Sludge on ultrasound. TECHNIQUE: Following the intravenous administration of the radiopharmaceutical, sequential abdominal images were obtained. COMPARISON: Abdominal ultrasound 11/18/2024 FINDINGS: Adequate clearance of the radiotracer from the blood pool. Activity appears within the gallbladder at the 21 minute image. Subsequent images show activity within the small bowel. Following the oral administration of Ensure Plus or equivalent, the gallbladder ejection fraction was calculated and was 53% (normal: greater than 40%, equivocal: 30-40%, and abnormal: less than 30%). IMPRESSION: 1. No scintigraphic evidence of common bile or cystic duct obstruction. 2. Normal contractile response of the gallbladder to fatty meal stimulation. THIS IS AN ELECTRONICALLY VERIFIED FINAL REPORT 12/20/2024 2:07 PM - Electronically signed by Sebastien Cavazos M.D. LB T: Report ID: [id number] Reading Location: [id number] Procedure Note Sebastien Cavazos MD - 12/20/2024 EXAM DESCRIPTION: NM HEPATOBILIARY IMAGING W PHARMACEUTICAL INTERVENTION RADIOPHARMACEUTICAL: 5 mCi Tc-99m mebrofenin via a right antecubitalvein IV site and 8 oz Ensure Plus or equivalent P.O. REASON FOR STUDY: Belching for 6 months. Sludge on ultrasound. TECHNIQUE: Following the intravenous administration of the radiopharmaceutical, sequential abdominal images were obtained. COMPARISON: Abdominal ultrasound 11/18/2024 FINDINGS: Adequate clearance of the radiotracer from the blood pool. Activityappears within the gallbladder at the 21 minute image. Subsequent images show activity within the small bowel. Following the oral administration of Ensure Plus or equivalent, the gallbladder ejection fraction was calculated and was 53% (normal:greater than 40%, equivocal: 30-40%, and abnormal: less than 30%). IMPRESSION: 1. No scintigraphic evidence of common bile or cystic duct obstruction. 2. Normal contractile response of the gallbladder to fatty mealstimulation. THIS IS AN ELECTRONICALLY VERIFIED FINAL REPORT 12/20/2024 2:07 PM - Electronically signed by Sebastien Cavazos M.D. LB T: Report ID: [id number] Reading Location: [place] [address] [facility] [place] PROCEDURES Final Result * Screening Mammogram Bilateral W Thai (12/19/2024 1:06 PM CDT) Anatomical Region Laterality Modality Breast Bilateral Mammography Impressions 12/21/2024 10:34 AM CDT Bilateral No evidence of malignancy in either breast. OVERALL BI-RADS FINAL ASSESSMENT: 1 - Negative RECOMMENDATION: Recommend bilateral annual screening mammography. If supplemental screening is desired for heterogeneously dense breast tissue, consider breast MRI every 1-2 years. If breast MRI cannot be performed, contrast-enhanced mammography is an alternative. Narrative 12/21/2024 10:34 AM CDT EXAMINATION: Screening Mammogram Bilateral W Thai: 12/19/2024 COMPARISON: TECHNIQUE: Mammography was performed with 2D and 3D digital breast tomosynthesis (DBT) images. CAD was utilized. BREAST PARENCHYMAL COMPOSITION: The breasts are heterogeneously dense, which may obscure small masses. FINDINGS: Bilateral There is no suspicious mass, calcification, or architectural distortion in either breast. us Self Screening Mammogram IMG MAMMO PROCEDURES Fi nal Result * SCAN - LABS (11/23/2024) us Provider Scanning Final Result * (ABNORMAL) Protime-INR (11/23/2024) INR 2.50(A) 0.90 - 1.10 EXTERNAL LAB Blood us Historical Provider MD LAB BLOOD ORDERABLES Antonina l Result EXTERNAL LAB * US Abdomen Limited (11/18/2024 7:47 AM CDT) Anatomical Region Laterality Modality Abdomen N/A Ultrasound 11/30/2024 4:14 PM CDT Narrative 11/30/2024 4:39 PM CDT EXAM DESCRIPTION: US ABDOMEN LIMITED REASON FOR STUDY: Dyspepsia and belching for 2 days. TECHNIQUE: Ultrasound of the right upper quadrant of the abdomen was performed with grayscale and color doppler. COMPARISON: None FINDINGS: PANCREAS: Visualized portions of the pancreas are within normal limits. Portions of the pancreatic body and tail are obscured due to bowel gas. LIVER: The liver appears normal in echotexture and echogenicity. No focal lesion identified. The main portal vein is patent with antegrade flow. GALLBLADDER: Minimal sludge. The gallbladder otherwise appears unremarkable. No cholelithiasis. No gallbladder wall thickening or pericholecystic fluid. No positive sonographic [place] sign reported. BILIARY: There is no intrahepatic or extrahepatic biliary ductal dilatation. Common bile duct measures 0.5 cm in diameter. RIGHT KIDNEY: Normal size. Normal echogenicity. No solid mass or cyst. No hydronephrosis. Measures 10 cm in length. OTHER: No other significant findings. IMPRESSION: 1. Minimal gallbladder sludge. 2. Otherwise, unremarkable right upper quadrant ultrasound. THIS IS AN ELECTRONICALLY VERIFIED FINAL REPORT 11/30/2024 4:39 PM - Electronically signed by Zachary SNIDER T: Report ID: [id number] Reading Location: [id number] Procedure Note Zachary Garcia MD - 11/30/2024 EXAM DESCRIPTION: US ABDOMEN LIMITED REASON FOR STUDY: Dyspepsia and belching for 2 days. TECHNIQUE: Ultrasound of the right upper quadrant of the abdomen wasperformed with grayscale and color doppler. COMPARISON: None FINDINGS: PANCREAS: Visualized portions of the pancreas are withinnormal limits. Portions of the pancreatic body and tail are obscured due to bowel gas. LIVER: The liver appears normal in echotexture and echogenicity. Nofocal lesion identified. The main portal vein is patent with antegrade flow. GALLBLADDER: Minimal sludge. The gallbladder otherwise appears unremarkable. No cholelithiasis. No gallbladder wall thickening or pericholecystic fluid. No positive sonographic [place] sign reported. BILIARY: There is no intrahepatic or extrahepatic biliary ductaldilatation. Common bile duct measures 0.5 cm in diameter. RIGHT KIDNEY: Normal size. Normal echogenicity. No solid mass or cyst.No hydronephrosis. Measures 10 cm in length. OTHER: No other significant findings. IMPRESSION: 1. Minimal gallbladder sludge. 2. Otherwise, unremarkable right upper quadrant ultrasound. THIS IS AN ELECTRONICALLY VERIFIED FINAL REPORT 11/30/2024 4:39 PM - Electronically signed by Zachary Garcia M.D. T: Report ID: [id number] Reading Location: [id number] us Hugo Hodge MD [facility] PROCEDURES Final Result * Colonoscopy (06/21/2024 10:32 AM CDT) Anatomical Region Laterality Modality Other Narrative Procedure Note Hugo Hodge MD - 06/21/2024 10:32 AM CDT [facility] ENDOSCOPY Patient Name: Yessy Donaldson Procedure Date: 06/21/2024 10:32 AM Date of : 1955 Admit Type: Outpatient Age: 68 Gender: Female Attending MD: Hugo Hodge M.D. Room: [facility] ENDOSCOPY ROOM 03 Note Status: Finalized [...] one hemostatic clip was successfully placed. Clip gas main and line fitter: [employer]. There was no bleeding at the end ofthe procedure. A 10 mm polyp was found in the hepatic flexure. The polyp wassessile. The polyp was removed with a hot snare. Resection and retrieval were complete. To prevent bleeding post-intervention, one hemostatic clipwas successfully placed. Clip gas main and line fitter: [employer]. There wasno bleeding at the end of the procedure. Multiple medium-mouthed diverticula were found in the sigmoid colon, descending colon and ascending colon. Non-bleeding internal hemorrhoids were found during retroflexion. The hemorrhoids were small. The exam was otherwise without abnormality. Impression: - One 10 mm polyp in the cecum, removed with a hot snare. Resected and retrieved. Clip was placed.Clip gas main and line fitter: [employer]. - One 10 mm polyp at the hepatic flexure, removedwith a hot snare. Resected and retrieved. Clip wasplaced. Clip gas main and line fitter: [employer]. - Diverticulosis in the sigmoid colon, in [...] On: 06/21/2024 10:32 AM Recognized by the [employer] for promoting quality in endoscopy Hugo Hodge MD ENDOSCOPY PROCEDURES Final Resul t * DEXA SCAN (02/21/2019) DEXA Scan Abnormal [...] Advance Directives For more information, please contact: [phone] * Full Code (Latest Code Status on File) Date Activated Date Inactivated Comments 08/24/2023 5:34 PM 08/25/2023 6:10 PM Care Teams Surface Water Manager Relationship Specialty Start Date End Date Adrien Camejo MD [address] [place] [address] Consulting Physician Orthopedic Surgery 08/25/23 Vipul Noonan MD [address] [place] [address] Referring Physician Obstetrics and Gynecology 12/22/24
--- OUTSIDE RECORDS SUMMARY | 2025-02-16 18:09 | XMS_ITS | Encounter Summary ---
Author Organization [facility] Healthcare Address [address] [place] [address] Care Team Providers Care Dog Food Dough Mixer Name Role Phone Konstantinyolandaandreyhermelinda Sanketcindy Fisher DO Primary Care Provide r Adrien Camejo MD Unavailable [phone] Vipul Noonan MD Unavailable [phone] Encounter Details Date Type Department Care Team (Late st Contact Info) Description 02/25/2024 Orders Only [facility] Health Information Management [address] [place] [address] Scanning, Provider Social History Tobacco Use Types [...] on file Legal Sex Female 8:13 AM MULTIMEDIA DEVELOPER Gender Identity Female 06/01/2020 9:42 PM MULTIMEDIA DEVELOPER Sexual Orientation Straight 06/01/2020 9: 42 PM MULTIMEDIA DEVELOPER 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 Not on file Not on file documented as of this encounter Plan of Treatment Not on file documented as of this encounter Procedures Procedure Name Priority Date/Time Associated Diagnosis Comments SCAN - LABS 02/25/2024 documented in this encounter Results * SCAN - LABS (02/25/2024) us Provider Scanning Final Result documented in this encounter Visit Diagnoses Not on filedocumented in this encounter Care Teams Dog Food Dough Mixer Relationship Specialty Start Date End Date Sanket Waldron DO [address] [place] [address] PCP - General 05/26/23 12/21/24 Adrien Camejo MD [address] [place] [address] Consulting Physician Orthopedic Surgery 08/25/23 Vipul Noonan MD [address] [place] [address] Referring Physician Obstetrics and Gynecology 12/22/24 documented as of this encounter
--- OUTSIDE RECORDS SUMMARY | 2025-02-16 18:09 | XMS_ITS | Encounter Summary ---
Author Organization [facility] Address [address] [place] [address] Care Team Providers Care Passenger Service Manager Name Role Phone Sanket Waldron DO Primary Care Provider + Encounter Details Date Type Department Care Team (Late st Contact Info) Description 07/16/2023 [employer] Message Enc [facility] Medical Group Family & Internal Medicine [facility] [address] [place] [phone] Sanket Waldron DO [address] [place] [address] Surgery Date Social History Tobacco Use Types [...] Sex Assigned at Female 06/06/2024 12:06 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
--- OUTSIDE RECORDS SUMMARY | 2025-02-16 18:09 | XMS_ITS | Encounter Summary ---
Author Organization [facility] Healthcare Address [address] [place] [address] Care Team Providers Care Doggy Daycare Activities Director Name Role Phone Konstantinyolandaandreyhermelinda Sanket Fisher DO Primary Care Provide r Adrien Camejo MD Unavailable [phone] Vipul Noonan MD Unavailable Encounter Details Date Type Department Care Team (Late st Contact Info) Description 05/24/2024 Orders Only [facility] Health Information Management [address] [place] [address] Scanning, Provider Social History Tobacco Use Types [...] on file Legal Sex Female 8:13 AM PARAFFINER Gender Identity Female 06/01/2020 9:42 PM PARAFFINER Sexual Orientation Straight 06/01/2020 9: 42 PM PARAFFINER 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 Not on file Not on file documented as of this encounter Plan of Treatment Not on file documented as of this encounter Procedures Procedure Name Priority Date/Time Associated Diagnosis Comments SCAN - LABS 05/24/2024 documented in this encounter Results * SCAN - LABS (05/24/2024) us Provider Scanning Final Result documented in this encounter Visit Diagnoses Not on filedocumented in this encounter Care Teams Doggy Daycare Activities Director Relationship Specialty Start Date End Date Sanket Waldron DO [address] [place] [address] PCP - General 05/26/23 12/21/24 Adrien Camejo MD [address] [place] [address] Consulting Physician Orthopedic Surgery 08/25/23 Vipul Noonan MD [address] [place] [address] Referring Physician Obstetrics and Gynecology 12/22/24 documented as of this encounter
--- OUTSIDE RECORDS SUMMARY | 2025-02-16 18:09 | XMS_ITS | Encounter Summary ---
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 Gender Identity Female 06/01/2020 9:42 PM DIE ATTACHING MACHINE TENDER Sexual Orientation Straight 06/01/2020 9: 42 PM DIE ATTACHING MACHINE TENDER 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 Not on file Not on file documented as of this encounter Plan of Treatment Not on file documented as of this encounter Procedures Procedure Name Priority Date/Time Associated Diagnosis Comments SCAN - LABS 09/14/2024 documented in this encounter Results * SCAN - LABS (09/14/2024) us Provider Scanning Final Result documented in this encounter Visit Diagnoses Not on filedocumented in this encounter Care Teams Magazine Keeper Relationship Specialty Start Date End Date Sanket Waldron DO [address] [place] [address] PCP - General 05/26/23 12/21/24 Adrien Camejo MD [address] [place] [address] Consulting Physician Orthopedic Surgery 08/25/23 Vipul Noonan MD [address] [place] [address] Referring Physician Obstetrics and Gynecology 12/22/24 documented as of this encounter
--- OUTSIDE RECORDS SUMMARY | 2025-02-16 18:09 | XMS_ITS | Encounter Summary ---
Author Organization [facility] Healthcare Address [address] [place] [address] Care Team Providers Care Commercial Relationship Manager Name Role Phone Konstantinmagdaleno Sanket Fisher DO Primary Care Provide r Adrien Camejo MD Unavailable [phone] Vipul Noonan MD Unavailable [phone] Encounter Details Date Type Department Care Team (Late st Contact Info) Description 08/08/2024 Orders Only [facility] Health Information Management [address] [place] [address] Scanning, Provider Social History Tobacco Use Types [...] on file Legal Sex Female 8:13 AM TRAY DELIVERY AIDE Gender Identity Female 06/01/2020 9:42 PM TRAY DELIVERY AIDE Sexual Orientation Straight 06/01/2020 9: 42 PM TRAY DELIVERY AIDE 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 Not on file Not on file documented as of this encounter Plan of Treatment Not on file documented as of this encounter Procedures Procedure Name Priority Date/Time Associated Diagnosis Comments SCAN - LABS 08/08/2024 documented in this encounter Results * SCAN - LABS (08/08/2024) us Provider Scanning Final Result documented in this encounter Visit Diagnoses Not on filedocumented in this encounter Care Teams Commercial Relationship Manager Relationship Specialty Start Date End Date Sanket Waldron DO [address] [place] [address] PCP - General 05/26/23 12/21/24 Adrien Camejo MD [address] [place] [address] Consulting Physician Orthopedic Surgery 08/25/23 Vipul Noonan MD [address] [place] [address] Referring Physician Obstetrics and Gynecology 12/22/24 documented as of this encounter
--- OUTSIDE RECORDS SUMMARY | 2025-02-16 18:09 | XMS_ITS | Encounter Summary ---
Author Organization [facility] Healthcare Address [address] [place] [address] Care Team Providers Care Work Environment Safety Inspector Name Role Phone Konstantinmagdaleno Sanket Fisher DO Primary Care Provide r Adrien Camejo MD Unavailable [phone] Vipul Noonan MD Unavailable [phone] Encounter Details Date Type Department Care Team (Latest Contact Info) Description 12/20/2024 Results Follow-Up [facility] Medical Group Gastroenterology at [address] [phone] Hugo Hodge MD [address] [place] [address] [place] [facility] Social History Tobacco Use Types Packs/Day Years [...] file Legal Sex Female 8:13 AM CUSTOMER SUPPORT ADVISOR Gender Identity Female 06/01/2020 9:42 PM CUSTOMER SUPPORT ADVISOR Sexual Orientation Straight 06/01/2020 9: 42 PM CUSTOMER SUPPORT ADVISOR 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 Not on file Not on file documented as of this encounter Plan of Treatment Not on file documented as of this encounter Visit Diagnoses Not on filedocumented in this encounter Care Teams Work Environment Safety Inspector Relationship Specialty Start Date End Date Sanket Waldron DO [address] [place] [address] PCP - General 05/26/23 12/21/24 Adrien Camejo MD [address] [facility] [address] [place] [address] Consulting Physician Orthopedic Surgery 08/25/23 Vipul Noonan MD [address] [place] [address] Referring Physician Obstetrics and Gynecology 12/22/24 documented as of this encounter
--- OUTSIDE RECORDS SUMMARY | 2025-02-16 18:09 | XMS_ITS | Encounter Summary ---
Author Organization [facility] Address [address] [place] [address] Care Team Providers Care Insulator Cutter And Former Name Role Phone Sanket Waldron DO Primary Care Provider + Encounter Details Date Type Department Care Team (Late st Contact Info) Description 04/12/2024 [employer] Message Enc [facility] Medical Group Family & Internal Medicine [facility] [address] [place] [phone] Sanket Waldron DO [address] [place], [place] [phone] No referral received Social History Tobacco Use Types Packs/Day Years [...] Sex Assigned at Female 06/06/2024 12:06 PM LONGWALL SHEARER OPERATOR Legal Sex Female 7:25 PM CDT Gender Identity Female 06/06/2024 12:06 PM LONGWALL SHEARER OPERATOR Sexual Orientation Not on file documented as of this encounter Plan of Treatment Not on file documented as of this encounter Visit Diagnoses Not on filedocumented in this encounter Additional Health Concerns Assessment Noted Time PHQ-9 Depression Total Score: 0 02/03/20 24 2:27 PM CDT documented as of this encounter Care Teams Insulator Cutter And Former Relationship Specialty Start Date End Date Sanket Waldron DO [address] [place] [address] PCP - General FAMILY PRACTICE 05/26/23 documented as of this encounter
--- OUTSIDE RECORDS SUMMARY | 2025-02-16 18:09 | XMS_ITS | Encounter Summary ---
Author Organization [facility] Healthcare Address [address] [place] [address] Care Team Providers Care Computer Applications Instructor Name Role Phone Konstantinyolandajunior Sanketcindy Fisher DO Primary Care Provide r Adrien Camejo MD Unavailable [phone] Vipul Noonan MD Unavailable [phone] Encounter Details Date Type Department Care Team (Late st Contact Info) Description 08/25/2024 Orders Only [facility] Health Information Management [address] [place] [address] Scanning, Provider Social History Tobacco Use Types [...] on file Legal Sex Female 8:13 AM ELECTRICAL SUPERINTENDENT Gender Identity Female 06/01/2020 9:42 PM ELECTRICAL SUPERINTENDENT Sexual Orientation Straight 06/01/2020 9: 42 PM ELECTRICAL SUPERINTENDENT 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 Not on file Not on file documented as of this encounter Plan of Treatment Not on file documented as of this encounter Procedures Procedure Name Priority Date/Time Associated Diagnosis Comments SCAN - LABS 08/25/2024 documented in this encounter Results * SCAN - LABS (08/25/2024) us Provider Scanning Final Result documented in this encounter Visit Diagnoses Not on filedocumented in this encounter Care Teams Computer Applications Instructor Relationship Specialty Start Date End Date Sanket Waldron DO [address] [place] [address] PCP - General 05/26/23 12/21/24 Adrien Camejo MD [address] [place] [address] Consulting Physician Orthopedic Surgery 08/25/23 Vipul Noonan MD [address] [place] [address] Referring Physician Obstetrics and Gynecology 12/22/24 documented as of this encounter
== END 2025-02-16 09:52 | disposition home or self-care (01) ==
PROVIDERS: PCP Family Medicine; Visit Provider Family Medicine
DX: E78.2 Mixed hyperlipidemia (principal); M15.9 Polyosteoarthritis, unspecified; M79.7 Fibromyalgia; Z95.4 Presence of other heart-valve replacement; E55.9 Vitamin D deficiency, unspecified
CPT/HCPCS: 36415; 80053; 82172; 82306; 82550; 82607; 85652; 86140

== ENCOUNTER 2025-02-24 10:20 | Outpatient (CLI) | payer OTHER, SELFPAY ==
[2025-02-24 12:26] LABS: Hepatitis B Surface Antigen Negative (Negative)
[2025-02-24 12:32] LABS: HAV RESULT Negative (Negative); Hepatitis B Core IgM Result Negative (Negative)
== END 2025-02-24 10:21 | disposition home or self-care (01) ==
LOC: ANHLAB 10:21
PROVIDERS: PCP Family Medicine; Visit Provider Family Medicine
DX: R74.01 Elevation of levels of liver transaminase levels (principal)
CPT/HCPCS: 36415; 80074